=== PATIENT | female | born 1970 | race African-American/Black ===

== ENCOUNTER 2016-09-28 10:56 | Inpatient (IN) | payer OTHER ==
[2016-09-28 11:57] VITALS: BMI 18.1
--- NOTE | 2016-09-28 13:02 | HP ---
CIWA Score - CIWA Score Nausea/Vomitin-No Nausea/No Vomiting Muscle Tremors: 4-Moderate,w/Arms Extend Anxiety: 3 Agitation: 4-Moderately Restless Paroxysmal Sweats: 3 Orientation: 0-Oriented Tacttile Disturbances: 0-None Auditory Disturbances: 0-None Visual Disturbances: 0-None Headache: 2-Mild CIWA-Ar Total Score: 16 Admission ROS BHS - HPI Chief Complaint: I need to stop drinking. Allergies/Adverse Reactions: Allergies Allergy/AdvReac Type Severity Reaction Status Date / Time No Known Allergies Allergy Verified 09/28/16 12:36 History of Present Illness: pt is a 46yr old female with a history of alcohol dependence seeking detox for treatment. Exam Limitations: No Limitations - Ebola screening Have you traveled outside of the country in the last 21 days: No Have you had contact with anyone from an Ebola affected area: No Have you been sick,other than usual withdrawal symptoms: No Do you have a fever: No - Review of Systems Constitutional: Chills, Diaphoresis, Loss of Appetite, Night Sweats, Changes in sleep EENT: reports: Tearing, Nose Congestion, Dental Problems (missing teeth) Respiratory: reports: Cough, Productive cough Cardiac: reports: No Symptoms Reported GI: reports: Diarrhea, Poor Appetite, Poor Fluid Intake : reports: No Symptoms Reported Musculoskeletal: reports: Back Pain, Joint Pain Integumentary: reports: Flushing, Sweating Neuro: reports: Headache, Tingling, Tremors Endocrine: reports: Excessive Sweating, Flushing, Intolerance to Cold, Intolerance to Heat Hematology: reports: Anemia Psychiatric: reports: Judgement Intact, Mood/Affect Appropiate, Orientated x3, Agitated, Anxious Other Systems: Reviewed and Negative Patient History - Patient Medical History Hx Anemia: Yes Hx Asthma: No Hx Chronic Obstructive Pulmonary Disease (COPD): No Hx Cancer: No Hx Cardiac Disorders: Yes (heart murmur) Hx Congestive Heart Failure: No Hx Hypertension: No Hx Hypercholesterolemia: No Hx Pacemaker: No HX Cerebrovascular Accident: No Hx Seizures: No Hx Dementia: No Hx Diabetes: No Hx Gastrointestinal Disorders: No Hx Liver Disease: No Hx Genitourinary Disorders: No Hx Sexually Transmitted Disorders: No Hx Renal Disease (ESRD): No Hx Thyroid Disease: No Hx Human Immunodeficiency Virus (HIV): No (negative) Hx Hepatitis C: No (negative) Hx Depression: Yes Hx Suicide Attempt: No (denies) Hx Bipolar Disorder: No Hx Schizophrenia: No - Patient Surgical History Past Surgical History: Yes Hx Neurologic Surgery: No Hx Cataract Extraction: No Hx Cardiac Surgery: No Hx Lung Surgery: No Hx Breast Surgery: No Hx Breast Biopsy: No Hx Abdominal Surgery: Yes (hernia repair) Hx Appendectomy: No Hx Cholecystectomy: No Hx Genitourinary Surgery: No Hx Section: No Hx Orthopedic Surgery: Yes (right knee, 07/29/2015) Other Surgical History: R inguinal hernia repair Anesthesia Reaction: No - PPD History Previous Implant?: Yes Documented Results: Negative w/o proof Implanted On Prior R Admission?: Yes PPD to be Administered?: Yes - Reproductive History Patient is a Female of Child Bearing Age (11 -55 yrs old): Yes Last Menstrual Period: 10/05/14 Patient : No - Smoking Cessation Smoking history: Never smoked Have you smoked in the past 12 months: No Aproximately how many cigarettes per day: 0 Cigars Per Day: 0 Hx Chewing Tobacco Use: No Initiated information on smoking cessation: No 'Breaking Loose' booklet given: 09/28/16 - Substance & Tx. History Hx Alcohol Use: Yes Hx Substance Use: Yes Substance Use Type: Alcohol, Marijuana Hx Substance Use Treatment: Yes - Substances Abused Alcohol-beer Route: Oral Frequency: Daily Amount used: 1-6 pk. Age of first use: 18 Date of Last Use: 09/28/16 Marijuana Route: Smoking Frequency: Daily Amount used: $40 Age of first use: 16 Date of Last Use: 09/28/16 Family Disease History - Family Disease History Family Disease History: Diabetes: Mother (htn .asthma ), Other: Mother Admission Physical Exam S - Vital Signs Vital Signs: Vital Signs - 24 hr 09/28/16 11:53 Temperature 97 F L Pulse Rate 106 H Respiratory 20 Rate Blood Pressure 159/99 - Physical General Appearance: Yes: Appropriately Dressed, Thin, Tremorous, Irritable, Sweating, Anxious HEENTM: Yes: Rhinorrhea, Muffled/Hoarse Voice Respiratory: Yes: Lungs Clear, Normal Breath Sounds, No Respiratory Distress Neck: Yes: No masses,lesions,Nodules Breast: Yes: Within Normal Limits Cardiology: Yes: Regular Rhythm, Regular Rate, S1, S2 Abdominal: Yes: Normal Bowel Sounds, Non Tender, Soft Genitourinary: Yes: Within Normal Limits Back: Yes: Normal Inspection Musculoskeletal: Yes: Back pain Extremities: Yes: Normal Capillary Refill, Normal Inspection, Tremors Neurological: Yes: Fully Oriented, Alert, Normal Response Integumentary: Yes: Normal Color, Dry, Diaphoresis Lymphatic: Yes: Within Normal Limits - Diagnostic (1) Alcohol dependence with uncomplicated withdrawal Current Visit: Yes Status: Chronic (2) Cannabis dependence Current Visit: Yes Status: Chronic (3) Chronic knee pain Current Visit: Yes Status: Chronic Qualifiers: Laterality: right Qualified Code(s): M25.561 - Pain in right knee; G89.29 - Other chronic pain Cleared for Admission [facility] - Detox or Rehab [facility] Level of Care: Medically Managed Detox Regimen/Protocol: Librium [facility] Breath Alcohol Content Breath Alcohol Content: 0.250 Urine Pregancy Test - Result Urine Test Results: Negative- NO Line Present Urine Drug Screen - Results Drug Screen Negative: No Urine Drug Screen Results: THC-Marijuana, BZO-Benzodiazepines, TCA-Tricyclic Antidepress
[2016-09-28] MEDS ORDERED: ACETAMINOPHEN 325 MG TABLET (FP) PO PRN (13:12)
[2016-09-28] MEDS ORDERED: chlordiazePOXIDE HCL 25 MG CAPSULE PO PRN (13:12)
[2016-09-28] MEDS ORDERED: MAG HYDROX/AL HYDROX/SIMETH 30 ML UNIT-DOSE CUP PO PRN (13:12)
[2016-09-28] MEDS ORDERED: diphenhydrAMINE HCL 50 MG CAPSULE PO PRN (13:12)
[2016-09-28] MEDS ORDERED: LOPERAMIDE HCL 2 MG CAPSULE PO PRN (13:12)
[2016-09-28] MEDS ORDERED: MAGNESIUM HYDROX 2400MG/30ML ORAL SUSPENSION 30 ML CUP PO PRN (13:12)
[2016-09-28] MEDS ORDERED: MENTHOL/PHENOL 1 EACH UD MM PRN (13:12)
[2016-09-28] MEDS ORDERED: hydrOXYzine PAMOATE 50 MG CAPSULE (FP) PO PRN (13:12)
[2016-09-28] MEDS ORDERED: P-EPHED 60MG/TRIPROLIDI 2.5MG TABLET PO PRN (13:12)
[2016-09-28] MEDS ORDERED: guaiFENesin/D-METHORPHAN HB 10 ML UNIT-DOSE CUPS PO PRN (13:12)
[2016-09-28] MEDS ORDERED: IBUPROFEN 400 MG TABLET (FP) PO PRN (13:12)
[2016-09-28] MEDS ORDERED: MAGNESIUM CITRATE 300 ML BOTTLE PO PRN (13:12)
[2016-09-28] MEDS ORDERED: chlordiazePOXIDE HCL 25 MG CAPSULE PO ONE (14:00)
--- NOTE | 2016-09-28 16:55 | CONSULT ---
[facility] Psychiatric Consult - Data Date of interview: 09/28/16 Admission source: [facility] Identifying data: Readmission to [facility] for this 46 y/o AA female seeking detox treatment on for alcohol and marijuana dependence.Patient is ,a mother of five,homeless,unemployed and supported on food stamps. Substance Abuse History: - Smoking Cessation. Smoking history: Never smoked. Have you smoked in the past 12 months: No. Aproximately how many cigarettes per day: 0. Cigars Per Day: 0. Hx Chewing Tobacco Use: No. Initiated information on smoking cessation: No. 'Breaking Loose' booklet given: . - Substance & Tx. History. Hx Alcohol Use: Yes. Hx Substance Use: Yes. Substance Use Type: Alcohol, Marijuana. Hx Substance Use Treatment: Yes. - Substances Abused. Alcohol-beer. Route: Oral. Frequency: Daily. Amount used: 1-6 pk. Age of first use: 18. Date of Last Use: 09/28/16. Marijuana. Route: Smoking. Frequency: Daily. Amount used: $40. Age of first use: 16. Date of Last Use: 09/28/16. Confirmed by the patient in this interview. Medical History: Anemia,heart murmur and a history of right inguinal herniorraphy.Noted recent history or right knee replacement (2016). Psychiatric History: Patient denies. Physical/Sexual Abuse/Trauma History: Patient denies. Additional Comment: Urine Drug Screen Results: THC-Marijuana, BZO- Benzodiazepines, TCA-Tricyclic Antidepressant.Noted. Mental Status Exam - Mental Status Exam Alert and Oriented to: Time, Place, Person Cognitive Function: Good Patient Appearance: Well Groomed Mood: Hopeful, Euthymic Affect: Appropriate, Normal Range Patient Behavior: Appropriate, Cooperative Speech Pattern: Clear, Appropriate Voice Loudness: Normal Thought Process: Goal Oriented Thought Disorder: Not Present Hallucinations: Denies Suicidal Ideation: Denies Homicidal Ideation: Denies Insight/Judgement: Poor Sleep: Poorly, Difficulty falling asleep Appetite: Good Muscle strength/Tone: Normal Gait/Station: Normal Psychiatric Findings - Problem List ([place] 1, 2,3) (1) Alcohol dependence with uncomplicated withdrawal Current Visit: Yes Status: Acute (2) Cannabis dependence Current Visit: Yes Status: Acute (3) Chronic knee pain Current Visit: Yes Status: Chronic Qualifiers: Laterality: right Qualified Code(s): M25.561 - Pain in right knee; G89.29 - Other chronic pain (4) Insomnia Current Visit: Yes Status: Acute - Initial Treatment Plan Initial Treatment Plan: Psychoeducation.Detoxification.Zolpidem 10 mg po hs prn.Patient is made aware of the risk of parasomnias.She agrees with this careplan.Observation.
[2016-09-28] MEDS: chlordiazePOXIDE HCL 25 MG CAPSULE PO SCH ×2 (17:34→22:33)
[2016-09-28 21:48] LABS: URINE APPEARANCE SLCLOUDY; URINE BILIRUBIN NEGATIVE (NEGATIVE); URINE BLOOD NEGATIVE (NEGATIVE); URINE COLOR YELLOW; URINE GLUCOSE (UA) NEGATIVE (NEGATIVE); URINE KETONE NEGATIVE (NEGATIVE); URINE NITRITE NEGATIVE (NEGATIVE); URINE PROTEIN NEGATIVE (NEGATIVE); URINE UROBILINOGEN NEGATIVE E.U./dl (0.2-1.0)
[2016-09-28 21:49] LABS: URINE LEUK ESTERASE TRACE (NEGATIVE)
[2016-09-28 21:53] LABS: URINE BACTERIA MANY /hpf (NONE SEEN); URINE MUCUS RARE; URINE RBC 1 /hpf (0-3); URINE WBC 24 /hpf (3-5)
[2016-09-28] MEDS: ZOLPIDEM TARTRATE 10 MG TABLET (PARK CARE ONLY) PO PRN (22:33)
[2016-09-28] MEDS: THIAMINE HCL 100 MG TABLET (FP) PO SCH (22:33)
--- NOTE | 2016-09-28 22:39 | PN ---
BHS Progress Note Note: RECEIVED NURSE CALL REQUESTS ENSURE BMI 18.2 ENSURE 120 ML BID CONTINUE DETOX
[2016-09-29] MEDS: chlordiazePOXIDE HCL 25 MG CAPSULE PO SCH ×4 (05:48→22:39)
[2016-09-29] MEDS: PRENATAL VITAMINS W/ FOLIC ACID TABLET (FP) PO SCH (10:39)
[2016-09-29 11:12] LABS: MCH 34.4 pg (25.7-33.7); MCHC 32.7 g/dl (32.0-36.0); MEAN CELL VOLUME 105.2 fl (80-96); MEAN PLT VOLUME 9.6 fl (7.5-11.1); PLATELET COUNT 137 K/MM3 (134-434); RDW 14.4 % (11.6-15.6); WHITE BLOOD COUNT 5.2 K/mm3 (4.0-10.0)
[2016-09-29 11:24] LABS: ANION GAP 12 (8-16); BILIRUBIN,TOTAL 0.2 mg/dL (0.2-1.0); CALCIUM 8.7 mg/dL (8.5-10.1); CO2 29 mmol/L (21-32); CREATININE 0.6 mg/dL (0.55-1.02); GLUCOSE,RANDOM 101 mg/dL (74-106); SGOT/AST 111 U/L (15-37); SGPT/ALT 49 U/L (12-78); TOT PROT 8.8 g/dl (6.4-8.2)
[2016-09-29 11:25] LABS: ALK PHOS 115 U/L (45-117)
--- NOTE | 2016-09-29 13:01 | PN ---
S CIWA - CIWA Score Nausea/Vomitin Muscle Tremors: 3 Anxiety: 3 Agitation: 2 Paroxysmal Sweats: 1-Minimal Palms Moist Orientation: 0-Oriented Tacttile Disturbances: 1-Very Mild Itch/Numbness Auditory Disturbances: 1-Very Mild Visual Disturbances: 1-Very Mild Sensitivity Headache: 2-Mild CIWA-Ar Total Score: 17 BHS Progress Note (SOAP) Subjective: ALERT,IRRITABLE,ANXIOUS,INTERRUPTED SLEEP,TREMOR.PAIN IN THE BODY Objective: 09/29/16 12:59 Vital Signs Temperature 99.1 F 09/29/16 10:26 Pulse Rate 83 09/29/16 10:26 Respiratory Rate 16 09/29/16 10:26 Blood Pressure 149/98 09/29/16 10:26 O2 Sat by Pulse Oximetry (%) EKG NSR PPROLONG QT 09/29/16 13:00 Laboratory Last Values WBC 5.2 K/mm3 (4.0-10.0) D 09/29/16 06:15 RBC 3.42 M/mm3 (3.60-5.2) L 09/29/16 06:15 Hgb 11.8 GM/dL (10.7-15.3) 09/29/16 06:15 Hct 36.0 % (32.4-45.2) 09/29/16 06:15 MCV 105.2 fl (80-96) H 09/29/16 06:15 MCHC 32.7 g/dl (32.0-36.0) 09/29/16 06:15 RDW 14.4 % (11.6-15.6) 09/29/16 06:15 Plt Count 137 K/MM3 (134-434) D 09/29/16 06:15 MPV 9.6 fl (7.5-11.1) D 09/29/16 06:15 Sodium 147 mmol/L (136-145) H 09/29/16 06:15 Potassium 4.1 mmol/L (3.5-5.1) 09/29/16 06:15 Chloride 106 mmol/L (98-107) 09/29/16 06:15 Carbon Dioxide 29 mmol/L (21-32) 09/29/16 06:15 Anion Gap 12 (8-16) 09/29/16 06:15 BUN 8 mg/dL (7-18) D 09/29/16 06:15 Creatinine 0.6 mg/dL (0.55-1.02) 09/29/16 06:15 Creat Clearance w eGFR > 60 (>60) 09/29/16 06:15 Random Glucose 101 mg/dL (74-106) D 09/29/16 06:15 Calcium 8.7 mg/dL (8.5-10.1) 09/29/16 06:15 Total Bilirubin 0.2 mg/dL (0.2-1.0) 09/29/16 06:15 AST 111 U/L (15-37) H D 09/29/16 06:15 ALT 49 U/L (12-78) 09/29/16 06:15 Alkaline Phosphatase 115 U/L (45-117) 09/29/16 06:15 Total Protein 8.8 g/dl (6.4-8.2) H 09/29/16 06:15 Albumin 4.0 g/dl (3.4-5.0) 09/29/16 06:15 Urine Color Yellow 09/28/16 21:00 Urine Appearance Slcloudy 09/28/16 21:00 Urine pH 6.0 (5.0-8.0) 09/28/16 21:00 Ur Specific [place] 1.013 (1.001-1.035) 09/28/16 21:00 Urine Protein Negative (NEGATIVE) 09/28/16 21:00 Urine Glucose (UA) Negative (NEGATIVE) 09/28/16 21:00 Urine Ketones Negative (NEGATIVE) 09/28/16 21:00 Urine Blood Negative (NEGATIVE) 09/28/16 21:00 Urine Nitrite Negative (NEGATIVE) 09/28/16 21:00 Urine Bilirubin Negative (NEGATIVE) 09/28/16 21:00 Urine Urobilinogen Negative E.U./dl (0.2-1.0) 09/28/16 21:00 Ur Leukocyte Esterase Trace (NEGATIVE) H D 09/28/16 21:00 Urine RBC 1 /hpf (0-3) 09/28/16 21:00 Urine WBC 24 /hpf (3-5) 09/28/16 21:00 Ur Epithelial Cells Many /hpf (FEW) 09/28/16 21:00 Urine Bacteria Many /hpf (NONE SEEN) 09/28/16 21:00 Urine Mucus Rare 09/28/16 21:00 Hepatitis C Antibody 0.2 s/co ratio (0.0-0.9) 09/28/16 14:00 Assessment: 09/29/16 13:00 WITHDRAWAL SYMPTOM 09/29/16 13:01 Plan: CONTINUE DETOX.D/CTYLENOL
[2016-09-29 14:10] LABS: HIV 1 & 2 AB NEGATIVE; HIV 1 AGp24 NEGATIVE
[2016-09-29] MEDS: THIAMINE HCL 100 MG TABLET (FP) PO SCH (22:39)
[2016-09-29] MEDS: ZOLPIDEM TARTRATE 10 MG TABLET (PARK CARE ONLY) PO PRN (22:39)
[2016-09-30] MEDS: chlordiazePOXIDE HCL 25 MG CAPSULE PO SCH ×2 (05:40→10:15)
[2016-09-30] MEDS: PRENATAL VITAMINS W/ FOLIC ACID TABLET (FP) PO SCH (10:15)
--- NOTE | 2016-09-30 13:17 | PN ---
S CIWA - CIWA Score Nausea/Vomitin Muscle Tremors: 3 Anxiety: 3 Agitation: 2 Paroxysmal Sweats: 1-Minimal Palms Moist Orientation: 0-Oriented Tacttile Disturbances: 1-Very Mild Itch/Numbness Auditory Disturbances: 1-Very Mild Visual Disturbances: 1-Very Mild Sensitivity Headache: 2-Mild CIWA-Ar Total Score: 17 BHS Progress Note (SOAP) Subjective: ALERT,IRRITABLE,ANXIOUS,INTERRUPTED SLEEP,TREMOR Objective: 09/30/16 13:16 Vital Signs Temperature 98.1 F 09/30/16 09:56 Pulse Rate 96 H 09/30/16 09:56 Respiratory Rate 18 09/30/16 09:56 Blood Pressure 129/101 09/30/16 09:56 O2 Sat by Pulse Oximetry (%) Assessment: 09/30/16 13:16 WITHDRAWAL SYMPTOM Plan: CONTINUE DETOX
[2016-09-30] MEDS: chlordiazePOXIDE 5 MG CAPSULE PO SCH ×2 (17:56→22:22)
[2016-09-30] MEDS: ZOLPIDEM TARTRATE 10 MG TABLET (PARK CARE ONLY) PO PRN (22:22)
[2016-09-30] MEDS: THIAMINE HCL 100 MG TABLET (FP) PO SCH (22:22)
[2016-10-01] MEDS: chlordiazePOXIDE 5 MG CAPSULE PO SCH ×2 (05:49→10:25)
--- NOTE | 2016-10-01 09:56 | PN ---
BHS Progress Note (SOAP) Subjective: sweats, , needs vitamins e, headache Objective: 10/01/16 09:49 Vital Signs Temperature 97.9 F 10/01/16 06:00 Pulse Rate 77 10/01/16 06:00 Respiratory Rate 16 10/01/16 06:00 Blood Pressure 121/83 10/01/16 06:00 O2 Sat by Pulse Oximetry (%) Vital Signs Temperature 97.9 F 10/01/16 06:00 Pulse Rate 77 10/01/16 06:00 Respiratory Rate 16 10/01/16 06:00 Blood Pressure 121/83 10/01/16 06:00 O2 Sat by Pulse Oximetry (%) Laboratory Tests 09/28/16 09/28/16 09/29/16 14:00 21:00 06:15 WBC 5.2 D RBC 3.42 L Hgb 11.8 Hct 36.0 MCV 105.2 H MCHC 32.7 RDW 14.4 Plt Count 137 D MPV 9.6 D Sodium Potassium Chloride Carbon Dioxide Anion Gap BUN Creatinine Creat Clearance w eGFR Random Glucose Calcium Total Bilirubin AST ALT Alkaline Phosphatase Total Protein Albumin Urine Color Yellow Urine Appearance Slcloudy Urine pH 6.0 Ur Specific [place] 1.013 Urine Protein Negative Urine Glucose (UA) Negative Urine Ketones Negative Urine Blood Negative Urine Nitrite Negative Urine Bilirubin Negative Urine Urobilinogen Negative Ur Leukocyte Esterase Trace H D Urine RBC 1 Urine WBC 24 Ur Epithelial Cells Many Urine Bacteria Many Urine Mucus Rare RPR Titer Hepatitis C Antibody 0.2 HIV 1&2 Antibody Screen HIV P24 Antigen 09/29/16 09/29/16 09/29/16 06:15 06:15 09:30 WBC RBC Hgb Hct MCV MCHC RDW Plt Count MPV Sodium 147 H Potassium 4.1 Chloride 106 Carbon Dioxide 29 Anion Gap 12 BUN 8 D Creatinine 0.6 Creat Clearance w eGFR > 60 Random Glucose 101 D Calcium 8.7 Total Bilirubin 0.2 AST 111 H D ALT 49 Alkaline Phosphatase 115 Total Protein 8.8 H Albumin 4.0 Urine Color Urine Appearance Urine pH Ur Specific [place] Urine Protein Urine Glucose (UA) Urine Ketones Urine Blood Urine Nitrite Urine Bilirubin Urine Urobilinogen Ur Leukocyte Esterase Urine RBC Urine WBC Ur Epithelial Cells Urine Bacteria Urine Mucus RPR Titer Nonreactive Hepatitis C Antibody HIV 1&2 Antibody Screen Negative HIV P24 Antigen Negative pt aox3 in nad ambulating Assessment: 10/01/16 09:51 withdrawal sx,s headache Plan: cont. detox increase fluids vit e /d motrin 400mg po tid/prn d/c in am
[2016-10-01] MEDS: PRENATAL VITAMINS W/ FOLIC ACID TABLET (FP) PO SCH (10:25)
[2016-10-01] MEDS: VITAMIN E 400 INTERNATIONAL-UNITS CAPSULE (FP) NR SCH (10:52)
--- NOTE | 2016-10-01 11:32 | EKG ---
Test Reason : Blood Pressure : / mmHG Vent. Rate : 089 BPM Atrial Rate : 089 BPM P-R Int : 184 ms QRS Dur : 098 ms QT Int : 396 ms P-R-T Axes : 078 092 076 degrees QTc Int : 481 ms NORMAL SINUS RHYTHM RIGHTWARD AXIS PROLONGED QT ABNORMAL ECG WHEN COMPARED WITH ECG OF 17-APR-2010 09:12, NO SIGNIFICANT CHANGE WAS FOUND Confirmed by PANTERA ROLDAN MD ([id number]) on 10/01/2016 11:32:23 AM Referred By: Confirmed By:PANTERA ROLDAN MD
[2016-10-01] MEDS: chlordiazePOXIDE HCL 10 MG CAPSULE PO SCH ×2 (17:30→22:09)
[2016-10-01] MEDS: THIAMINE HCL 100 MG TABLET (FP) PO SCH (22:09)
[2016-10-01] MEDS: ZOLPIDEM TARTRATE 10 MG TABLET (PARK CARE ONLY) PO PRN (22:09)
[2016-10-02] MEDS: chlordiazePOXIDE HCL 10 MG CAPSULE PO SCH (05:49)
--- NOTE | 2016-10-02 09:06 | DS ---
[facility] Detox Discharge Summary Admission Date: 09/28/16 Discharge Date: 10/02/16 - History Present History: Alcohol Dependence, Cannabis Dependence - Physical Exam Results Vital Signs: Vital Signs Temperature 97.7 F 10/02/16 06:18 Pulse Rate 72 10/02/16 06:18 Respiratory Rate 18 10/02/16 06:18 Blood Pressure 106/72 10/02/16 06:18 O2 Sat by Pulse Oximetry (%) - Treatment Hospital Course: Detox Protocol Followed, Detoxed Safely, Responded well, Discharged Condition Good, Rehab Referral Accepted - Medication Discharge Medications: Ambulatory Orders NK [No Known Home Medication] 01/19/15 - Diagnosis (1) Alcohol dependence with uncomplicated withdrawal Current Visit: Yes Status: Chronic (2) Cannabis dependence Current Visit: Yes Status: Chronic (3) Chronic knee pain Current Visit: Yes Status: Chronic Qualifiers: Laterality: right Qualified Code(s): M25.561 - Pain in right knee; G89.29 - Other chronic pain - AMA Did Patient Leave Against Medical Advice: No
[2016-10-02] MEDS: PRENATAL VITAMINS W/ FOLIC ACID TABLET (FP) PO SCH (09:27)
[2016-10-02] MEDS: VITAMIN E 400 INTERNATIONAL-UNITS CAPSULE (FP) NR SCH (09:27)
[2016-10-02 10:12] VITALS: BP 135/81; PULSE 93; TEMP 97.9
== END 2016-10-02 09:50 | disposition home or self-care (01) | DRG 775 ==
LOC: YASAS 10:56 → Y6N 13:39
PROVIDERS: ADMIT Internal Medicine; ATTEND Internal Medicine
PROC: HZ2ZZZZ Detoxification Services for Substance Abuse Treatment (ICD-10-PCS; principal; 2016-10-02)
DX: F10.230 Alcohol dependence with withdrawal, uncomplicated (principal); F12.20 Cannabis dependence, uncomplicated; G47.00 Insomnia, unspecified; M25.561 Pain in right knee; G89.29 Other chronic pain; Z59.0 Homelessness
CPT/HCPCS: 36415; 80053; 81003; 81015; 85027; 86593; 87389; 93005; 93010

== ENCOUNTER 2016-11-11 16:11 | Inpatient (IN) | payer OTHER ==
[2016-11-11 16:32] VITALS: BMI 17.3
--- NOTE | 2016-11-11 19:59 | HP ---
CIWA Score - CIWA Score Nausea/Vomitin Muscle Tremors: 3 Anxiety: 3 Agitation: 3 Paroxysmal Sweats: 3 Orientation: 3-Disoriented Date>2 days Tacttile Disturbances: 1-Very Mild Itch/Numbness Auditory Disturbances: 1-Very Mild Visual Disturbances: 2-Mild Sensitivity Headache: 2-Mild CIWA-Ar Total Score: 24 Admission ROS S - HPI Chief Complaint: WITHDRAWAL SYMPTOMS Allergies/Adverse Reactions: Allergies Allergy/AdvReac Type Severity Reaction Status Date / Time No Known Allergies Allergy Verified 09/28/16 12:36 History of Present Illness: 46 Y.O. WOMAN WITH AN EXTENSIVE HISTORY OF ALCOHOL AND DRUG DEPENDENCE IS SEEKING DETOX. SHE WAS HERE LAST MONTH FOR DETOX AND SHE REPORTS COMPLETED REHAB AT DIFFERENT FACILITIES PREVIOUSLY. HER LONGEST PERIOD OF SOBRIETY IS 5 YEARS. Exam Limitations: Intoxication - Ebola screening Have you traveled outside of the country in the last 21 days: No Have you had contact with anyone from an Ebola affected area: No Have you been sick,other than usual withdrawal symptoms: No Do you have a fever: No - Review of Systems Constitutional: Chills, Diaphoresis, Loss of Appetite, Malaise, Night Sweats, Changes in sleep EENT: reports: Blurred Vision, Double Vision, Tearing, Nose Congestion Respiratory: reports: Shortness of Breath Cardiac: reports: Palpitations GI: reports: Diarrhea, Poor Appetite, Abdominal cramping : reports: No Symptoms Reported Musculoskeletal: reports: Back Pain, Neck Pain, Other (R KNEE AND R ANKLE) Neuro: reports: Headache, Tremors, Unsteady Gait Endocrine: reports: No Symptoms Reported Hematology: reports: Anemia (LISA) Psychiatric: reports: Anxious, Depressed, Disorientated Other Systems: Reviewed and Negative Patient History - Patient Medical History Hx Anemia: Yes Hx Asthma: No Hx Chronic Obstructive Pulmonary Disease (COPD): No Hx Cancer: No Hx Cardiac Disorders: Yes (heart murmur) Hx Congestive Heart Failure: No Hx Hypertension: Yes Hx Hypercholesterolemia: No Hx Pacemaker: No HX Cerebrovascular Accident: Yes (2002) Hx Seizures: No Hx Dementia: No Hx Diabetes: No Hx Gastrointestinal Disorders: No Hx Liver Disease: Yes (FATTY LIVER) Hx Genitourinary Disorders: No Hx Sexually Transmitted Disorders: No Hx Renal Disease (ESRD): No Hx Thyroid Disease: No Hx Human Immunodeficiency Virus (HIV): No (negative) Hx Hepatitis C: No (negative) Hx Depression: Yes Hx Suicide Attempt: No (denies) Hx Bipolar Disorder: No Hx Schizophrenia: No - Patient Surgical History Past Surgical History: Yes Hx Neurologic Surgery: No Hx Cataract Extraction: No Hx Cardiac Surgery: No Hx Lung Surgery: No Hx Breast Surgery: No Hx Breast Biopsy: No Hx Abdominal Surgery: Yes (hernia repair) Hx Appendectomy: No Hx Cholecystectomy: No Hx Genitourinary Surgery: No Hx Section: No Hx Orthopedic Surgery: Yes (right knee, 07/29/2015) Other Surgical History: R inguinal hernia repair Anesthesia Reaction: No - PPD History Previous Implant?: Yes Documented Results: Negative w/proof Implanted On Prior [facility] Admission?: Yes Date: 09/30/16 Results: 0 mm PPD to be Administered?: No - Reproductive History Patient is a Female of Child Bearing Age (11 -55 yrs old): Yes Last Menstrual Period: 06/07/16 Patient : No - Smoking Cessation Smoking history: Never smoked Have you smoked in the past 12 months: No Aproximately how many cigarettes per day: 0 Cigars Per Day: 0 Hx Chewing Tobacco Use: No - Substance & Tx. History Hx Alcohol Use: Yes Hx Substance Use: Yes Substance Use Type: Alcohol, Marijuana Hx Substance Use Treatment: Yes (DETOX AND REHAB ) - Substances Abused Alcohol Route: Oral Frequency: Daily Amount used: 4-5 24OZ CANS OF BEER Age of first use: 18 Date of Last Use: 11/11/16 Marijuana/Hashish Route: Smoking Frequency: Daily Amount used: $40 Age of first use: 16 Date of Last Use: 11/11/16 Family Disease History - Family Disease History Family Disease History: Diabetes: Mother (htn .asthma ), Other: Mother Admission Physical Exam S - Vital Signs Vital Signs: Vital Signs - 24 hr 11/11/16 16:28 Temperature 96.4 F L Pulse Rate 97 H Respiratory 20 Rate Blood Pressure 155/101 - Physical General Appearance: Yes: Disheveled, Alcohol on Breath, Intoxicated, Thin, Tremorous, Anxious HEENTM: Yes: Hearing grossly Normal, Normocephalic, Normal Voice Respiratory: Yes: Chest Non-Tender, Lungs Clear, Normal Breath Sounds, No Respiratory Distress, No Accessory Muscle Use Neck: Yes: No masses,lesions,Nodules, Trachea in good position Breast: Yes: Breast Exam Deferred Cardiology: Yes: Regular Rhythm, Regular Rate, S1, S2 Abdominal: Yes: Non Tender, Flat, Soft Genitourinary: Yes: Other (NO COMPLAINTS REPORTED) Back: Yes: Normal Inspection Musculoskeletal: Yes: Back pain Extremities: Yes: Normal Inspection, Normal Range of Motion, Non-Tender Neurological: Yes: Disoriented Integumentary: Yes: Normal Color, Dry, Warm Lymphatic: Yes: Within Normal Limits - Diagnostic (1) Alcohol dependence with uncomplicated withdrawal Current Visit: Yes Status: Chronic (2) Cannabis dependence Current Visit: Yes Status: Chronic (3) Chronic knee pain Current Visit: Yes Status: Chronic Qualifiers: Laterality: right Qualified Code(s): M25.561 - Pain in right knee; G89.29 - Other chronic pain (4) Hypertension Current Visit: Yes Status: Chronic Cleared for Admission [facility] - Detox or Rehab [facility] Level of Care: Medically Managed Detox Regimen/Protocol: Librium [facility] Breath Alcohol Content Breath Alcohol Content: 0.382 Urine Pregancy Test - Result Urine Test Results: Negative- NO Line Present Urine Drug Screen - Results Drug Screen Negative: No Urine Drug Screen Results: THC-Marijuana, BZO-Benzodiazepines
[2016-11-11] MEDS ORDERED: MAGNESIUM HYDROX 2400MG/30ML ORAL SUSPENSION 30 ML CUP PO PRN (20:21)
[2016-11-11] MEDS ORDERED: MAGNESIUM CITRATE 300 ML BOTTLE PO PRN (20:21)
[2016-11-11] MEDS ORDERED: MENTHOL/PHENOL 1 EACH UD MM PRN (20:21)
[2016-11-11] MEDS ORDERED: MAG HYDROX/AL HYDROX/SIMETH 30 ML UNIT-DOSE CUP PO PRN (20:21)
[2016-11-11] MEDS ORDERED: diphenhydrAMINE HCL 50 MG CAPSULE PO PRN (20:21)
[2016-11-11] MEDS ORDERED: P-EPHED 60MG/TRIPROLIDI 2.5MG TABLET PO PRN (20:21)
[2016-11-11] MEDS ORDERED: guaiFENesin/D-METHORPHAN HB 10 ML UNIT-DOSE CUPS PO PRN (20:21)
[2016-11-11] MEDS ORDERED: chlordiazePOXIDE HCL 25 MG CAPSULE PO PRN (20:21)
[2016-11-11] MEDS ORDERED: LOPERAMIDE HCL 2 MG CAPSULE PO PRN (20:21)
[2016-11-11] MEDS ORDERED: chlordiazePOXIDE HCL 25 MG CAPSULE PO ONE (20:21)
[2016-11-11] MEDS ORDERED: ACETAMINOPHEN 325 MG TABLET (FP) PO PRN (20:21)
[2016-11-11] MEDS ORDERED: hydrOXYzine PAMOATE 50 MG CAPSULE (FP) PO PRN (20:21)
[2016-11-11] MEDS ORDERED: IBUPROFEN 400 MG TABLET (FP) PO PRN (20:21)
[2016-11-11] MEDS: cloNIDine HCL 0.1 MG TABLET PO PRN (22:31)
[2016-11-11] MEDS: THIAMINE HCL 100 MG TABLET (FP) PO SCH (22:31)
[2016-11-11] MEDS: chlordiazePOXIDE HCL 25 MG CAPSULE PO SCH (22:31)
[2016-11-12] MEDS: chlordiazePOXIDE HCL 25 MG CAPSULE PO SCH ×4 (05:32→22:29)
--- NOTE | 2016-11-12 08:42 | EKG ---
Test Reason : Blood Pressure : / mmHG Vent. Rate : 077 BPM Atrial Rate : 077 BPM P-R Int : 182 ms QRS Dur : 098 ms QT Int : 424 ms P-R-T Axes : 021 087 074 degrees QTc Int : 479 ms NORMAL SINUS RHYTHM ANTERIOR INFARCT , AGE UNDETERMINED ABNORMAL ECG WHEN COMPARED WITH ECG OF 28-SEP-2016 15:07, NO SIGNIFICANT CHANGE WAS FOUND Confirmed by PANTERA ROLDAN MD ([id number]) on 11/12/2016 8:42:11 AM Referred By: Confirmed By:PANTERA ROLDAN MD
--- NOTE | 2016-11-12 10:01 | PN ---
S CIWA - CIWA Score Nausea/Vomitin Muscle Tremors: 3 Anxiety: 3 Agitation: 2 Paroxysmal Sweats: 1-Minimal Palms Moist Orientation: 0-Oriented Tacttile Disturbances: 1-Very Mild Itch/Numbness Auditory Disturbances: 1-Very Mild Visual Disturbances: 1-Very Mild Sensitivity Headache: 2-Mild CIWA-Ar Total Score: 17 BHS Progress Note (SOAP) Subjective: ALERT,IRRITABLE,ANXIOUS,INTERRUPTED SLEEP,TREMOR Objective: 11/12/16 10:00 Vital Signs Temperature 99.0 F 11/12/16 06:00 Pulse Rate 73 11/12/16 06:00 Respiratory Rate 18 11/12/16 06:00 Blood Pressure 117/86 11/12/16 06:00 O2 Sat by Pulse Oximetry (%) 11/12/16 10:03 EKG NSR NO CHEST PAIN,NO SOB,NO DIZZINESS LABS PENDING Assessment: 11/12/16 10:04 WITHDRAWAL SYMPTOM Plan: CONTINUE DETOX
[2016-11-12 10:12] LABS: URINE APPEARANCE CLOUDY; URINE BILIRUBIN NEGATIVE (NEGATIVE); URINE COLOR YELLOW; URINE GLUCOSE (UA) NEGATIVE (NEGATIVE); URINE KETONE NEGATIVE (NEGATIVE); URINE LEUK ESTERASE NEGATIVE (NEGATIVE); URINE NITRITE POSITIVE (NEGATIVE); URINE UROBILINOGEN NEGATIVE E.U./dl (0.2-1.0)
[2016-11-12 10:17] LABS: MCH 34.2 pg (25.7-33.7); MCHC 32.7 g/dl (32.0-36.0); MEAN CELL VOLUME 104.7 fl (80-96); MEAN PLT VOLUME 8.6 fl (7.5-11.1); PLATELET COUNT 184 K/MM3 (134-434); RDW 14.2 % (11.6-15.6); WHITE BLOOD COUNT 3.8 K/mm3 (4.0-10.0)
[2016-11-12 10:21] LABS: URINE BLOOD 1+ (NEGATIVE); URINE PROTEIN 1+ (NEGATIVE)
[2016-11-12] MEDS: SERTRALINE HCL 50 MG TABLET (FP) PO SCH (10:27)
[2016-11-12] MEDS: PRENATAL VITAMINS W/ FOLIC ACID TABLET (FP) PO SCH (10:28)
[2016-11-12 10:33] LABS: ALK PHOS 136 U/L (45-117); ANION GAP 10 (8-16); BILIRUBIN,TOTAL 0.7 mg/dL (0.2-1.0); CALCIUM 8.8 mg/dL (8.5-10.1); CO2 28 mmol/L (21-32); CREATININE 0.7 mg/dL (0.55-1.02); GLUCOSE,RANDOM 70 mg/dL (74-106); SGOT/AST 238 U/L (15-37); SGPT/ALT 124 U/L (12-78); TOT PROT 9.4 g/dl (6.4-8.2)
[2016-11-12 10:46] LABS: URINE HYALINE CAST 5 /lpf; URINE MUCUS MODERATE; URINE RBC 2 /hpf (0-3); URINE WBC 9 /hpf (3-5)
[2016-11-12] MEDS: cloNIDine HCL 0.1 MG TABLET PO PRN ×2 (12:53→22:29)
--- NOTE | 2016-11-12 13:10 | CONSULT ---
[facility] Psychiatric Consult - Data Date of interview: 11/12/16 Admission source: [facility] Identifying data: This is 46 years old female with no psychiatric hospitlization history intoxiocated with: aLCOHOL, cANNABIS, Cocaine Substance Abuse History: Observation. Detox Unit Care Medical History: Both Knees Arthritis, HTN Psychiatric History: Patient reportys history of depressionand anxiety, reports taking prior to admission: Zoloft 100mg poqd. Ambien 10mg po qhs Physical/Sexual Abuse/Trauma History: Denies Additional Comment: Zoloft 100mg poqd. Ambien 10mg po qhs Mental Status Exam - Mental Status Exam Alert and Oriented to: Person Cognitive Function: Fair Patient Appearance: Unkempt Mood: Anxious Affect: Normal Range Patient Behavior: Cooperative Speech Pattern: Appropriate Voice Loudness: Mildly Soft/Quiet Thought Process: Goal Oriented Thought Disorder: Being Controlled Hallucinations: Denies Suicidal Ideation: Denies Homicidal Ideation: Denies Insight/Judgement: Fair Sleep: Difficulty falling asleep Appetite: Weight gain Muscle strength/Tone: Mild Hypotonicity Gait/Station: Shuffling Additional Comments: Zoloft 100mg poqd. Ambien 10mg po qhs Psychiatric Findings - Problem List ([place] 1, 2,3) (1) Cannabis dependence Current Visit: Yes Status: Chronic (2) Drug-induced mood disorder Current Visit: Yes Status: Acute - Initial Treatment Plan Initial Treatment Plan: Zoloft 100mg poqd. Ambien 10mg po qhs
[2016-11-12] MEDS: THIAMINE HCL 100 MG TABLET (FP) PO SCH (22:29)
[2016-11-13] MEDS: chlordiazePOXIDE HCL 25 MG CAPSULE PO SCH ×3 (05:39→17:44)
--- NOTE | 2016-11-13 09:48 | PN ---
[facility] CIWA - CIWA Score Nausea/Vomitin Muscle Tremors: 3 Anxiety: 3 Agitation: 2 Paroxysmal Sweats: 1-Minimal Palms Moist Orientation: 0-Oriented Tacttile Disturbances: 1-Very Mild Itch/Numbness Auditory Disturbances: 1-Very Mild Visual Disturbances: 1-Very Mild Sensitivity Headache: 2-Mild CIWA-Ar Total Score: 17 BHS Progress Note (SOAP) Subjective: ALERT,IRRITABLE,ANXIOUS,INTERRUPTED SLEEP,TREMOR, Objective: 11/13/16 09:43 Vital Signs Temperature 97.7 F 11/13/16 06:07 Pulse Rate 61 11/13/16 06:07 Respiratory Rate 16 11/13/16 06:07 Blood Pressure 129/85 11/13/16 06:07 O2 Sat by Pulse Oximetry (%) Laboratory Last Values WBC 3.8 K/mm3 (4.0-10.0) L 11/12/16 07:00 RBC 3.51 M/mm3 (3.60-5.2) L 11/12/16 07:00 Hgb 12.0 GM/dL (10.7-15.3) 11/12/16 07:00 Hct 36.7 % (32.4-45.2) 11/12/16 07:00 MCV 104.7 fl (80-96) H 11/12/16 07:00 MCHC 32.7 g/dl (32.0-36.0) 11/12/16 07:00 RDW 14.2 % (11.6-15.6) 11/12/16 07:00 Plt Count 184 K/MM3 (134-434) D 11/12/16 07:00 MPV 8.6 fl (7.5-11.1) D 11/12/16 07:00 Sodium 142 mmol/L (136-145) 11/12/16 07:00 Potassium 4.3 mmol/L (3.5-5.1) 11/12/16 07:00 Chloride 104 mmol/L (98-107) 11/12/16 07:00 Carbon Dioxide 28 mmol/L (21-32) 11/12/16 07:00 Anion Gap 10 (8-16) 11/12/16 07:00 BUN 7 mg/dL (7-18) 11/12/16 07:00 Creatinine 0.7 mg/dL (0.55-1.02) 11/12/16 07:00 Creat Clearance w eGFR > 60 (>60) 11/12/16 07:00 Random Glucose 70 mg/dL (74-106) L D 11/12/16 07:00 Calcium 8.8 mg/dL (8.5-10.1) 11/12/16 07:00 Total Bilirubin 0.7 mg/dL (0.2-1.0) D 11/12/16 07:00 AST 238 U/L (15-37) H D 11/12/16 07:00 ALT 124 U/L (12-78) H D 11/12/16 07:00 Alkaline Phosphatase 136 U/L (45-117) H 11/12/16 07:00 Total Protein 9.4 g/dl (6.4-8.2) H 11/12/16 07:00 Albumin 4.0 g/dl (3.4-5.0) 11/12/16 07:00 Urine Color Yellow 11/12/16 07:00 Urine Appearance Cloudy 11/12/16 07:00 Urine pH 6.0 (5.0-8.0) 11/12/16 07:00 Ur Specific [place] 1.014 (1.001-1.035) 11/12/16 07:00 Urine Protein 1+ (NEGATIVE) H 11/12/16 07:00 Urine Glucose (UA) Negative (NEGATIVE) 11/12/16 07:00 Urine Ketones Negative (NEGATIVE) 11/12/16 07:00 Urine Blood 1+ (NEGATIVE) H 11/12/16 07:00 Urine Nitrite Positive (NEGATIVE) 11/12/16 07:00 Urine Bilirubin Negative (NEGATIVE) 11/12/16 07:00 Urine Urobilinogen Negative E.U./dl (0.2-1.0) 11/12/16 07:00 Ur Leukocyte Esterase Negative (NEGATIVE) 11/12/16 07:00 Urine RBC 2 /hpf (0-3) 11/12/16 07:00 Urine WBC 9 /hpf (3-5) 11/12/16 07:00 Ur Epithelial Cells Rare /hpf (FEW) 11/12/16 07:00 Hyaline Casts 5 /lpf 11/12/16 07:00 Urine Mucus Moderate 11/12/16 07:00 RPR Titer Nonreactive (NONREACTIVE) 11/12/16 07:00 Assessment: 11/13/16 09:45 WITHDRAWAL SYMPTOM Plan: CONTINUE DETOX,D/C TYLENOL,LEUKOPENIA,CBC CMP ,INR IN AM FOR TRANSAMINASEMIA
[2016-11-13] MEDS: SERTRALINE HCL 50 MG TABLET (FP) PO SCH (10:12)
[2016-11-13] MEDS: cloNIDine HCL 0.1 MG TABLET PO PRN (10:12)
[2016-11-13] MEDS: PRENATAL VITAMINS W/ FOLIC ACID TABLET (FP) PO SCH (10:12)
[2016-11-13] MEDS: chlordiazePOXIDE 5 MG CAPSULE PO SCH (22:13)
[2016-11-13] MEDS: ZOLPIDEM TARTRATE 10 MG TABLET (PARK CARE ONLY) PO PRN (22:14)
[2016-11-13] MEDS: THIAMINE HCL 100 MG TABLET (FP) PO SCH (22:14)
[2016-11-14] MEDS: chlordiazePOXIDE 5 MG CAPSULE PO SCH ×3 (05:16→17:44)
--- NOTE | 2016-11-14 09:32 | PN ---
S Progress Note (SOAP) Subjective: ALERT,IRRITABLE,ANXIOUS,INTERRUPTED SLEEP Objective: 11/14/16 09:31 Vital Signs Temperature 96.7 F L 11/14/16 05:47 Pulse Rate 62 11/14/16 05:47 Respiratory Rate 16 11/14/16 05:47 Blood Pressure 131/86 11/14/16 05:47 O2 Sat by Pulse Oximetry (%) Assessment: 11/14/16 09:33 WITHDRAWAL SYMPTOM Plan: CONTINUE DETOX,REPEAT CMP,INR PENDING,DISCHARGE IN AM
[2016-11-14 10:53] LABS: ALBUMIN 3.6 g/dl (3.4-5.0); ALK PHOS 124 U/L (45-117); ANION GAP 8 (8-16); BILIRUBIN,TOTAL 0.8 mg/dL (0.2-1.0); CALCIUM 9.4 mg/dL (8.5-10.1); CO2 31 mmol/L (21-32); CREATININE 0.7 mg/dL (0.55-1.02); GLUCOSE,RANDOM 78 mg/dL (74-106); SGOT/AST 145 U/L (15-37); SGPT/ALT 100 U/L (12-78); TOT PROT 8.5 g/dl (6.4-8.2)
[2016-11-14] MEDS: SERTRALINE HCL 50 MG TABLET (FP) PO SCH (10:54)
[2016-11-14] MEDS: PRENATAL VITAMINS W/ FOLIC ACID TABLET (FP) PO SCH (10:54)
[2016-11-14] MEDS: cloNIDine HCL 0.1 MG TABLET PO PRN (10:54)
[2016-11-14 10:55] LABS: MCH 34.2 pg (25.7-33.7); MEAN CELL VOLUME 103.7 fl (80-96); MEAN PLT VOLUME 9.5 fl (7.5-11.1); PLATELET COUNT 143 K/MM3 (134-434); RDW 13.4 % (11.6-15.6); WHITE BLOOD COUNT 2.5 K/mm3 (4.0-10.0)
[2016-11-14 11:15] LABS: INR 1.03 (0.82-1.09); PROTHROMBIN TIME (PATIENT) 11.3 SEC (9.98-11.88)
[2016-11-14] MEDS: chlordiazePOXIDE HCL 10 MG CAPSULE PO SCH (22:20)
[2016-11-14] MEDS: ZOLPIDEM TARTRATE 10 MG TABLET (PARK CARE ONLY) PO PRN (22:20)
[2016-11-14] MEDS: THIAMINE HCL 100 MG TABLET (FP) PO SCH (22:20)
[2016-11-15] MEDS: chlordiazePOXIDE HCL 10 MG CAPSULE PO SCH (05:37)
--- NOTE | 2016-11-15 08:10 | PN ---
S Progress Note (SOAP) Subjective: ALERT,NO COMPLAINT Objective: 11/15/16 08:09 Vital Signs Temperature 98.1 F 11/15/16 06:41 Pulse Rate 60 11/15/16 06:41 Respiratory Rate 18 11/15/16 06:41 Blood Pressure 116/83 11/15/16 06:41 O2 Sat by Pulse Oximetry (%) Assessment: 11/15/16 08:09 DETOX COMPLETED,NO WITHDRAWAL SYMPTOM Plan: DISCHARGE TODAY,FOLLOW UP WITH AFTER CARE PROGRAM ARRANGEMENT
--- NOTE | 2016-11-15 08:15 | DS ---
[facility] Detox Discharge Summary Admission Date: 11/11/16 Discharge Date: 11/15/16 - History Present History: Alcohol Dependence, Cannabis Dependence Additional Comments: FOLLOW UP WITH [facility] APPOINTMENT AND PMD FOR MEDICAL PROBLEM AND LEUKOPENIA Pertinent Past History: HYPERTENSION CHRONIC KNEE PAIN INSOMNIA - Physical Exam Results Vital Signs: Vital Signs Temperature 98.1 F 11/15/16 06:41 Pulse Rate 60 11/15/16 06:41 Respiratory Rate 18 11/15/16 06:41 Blood Pressure 116/83 11/15/16 06:41 O2 Sat by Pulse Oximetry (%) Pertinent Admission Physical Exam Findings: WITHDRAWAL SYMPTOM - Treatment Hospital Course: Detox Protocol Followed, Detoxed Safely, Responded well, Discharged Condition Good Patient has Accepted a Rehab Referral to: [facility] - Medication Discharge Medications: Ambulatory Orders Sertraline HCl [Zoloft -] 100 mg PO DAILY #30 tablet 11/12/16 Zolpidem Tartrate [Ambien] 10 mg PO HS #14 tablet MDD 10 11/12/16 - Diagnosis (1) Alcohol dependence with uncomplicated withdrawal Current Visit: Yes Status: Chronic (2) Cannabis dependence Current Visit: Yes Status: Chronic (3) Chronic knee pain Current Visit: Yes Status: Chronic Qualifiers: Laterality: right Qualified Code(s): M25.561 - Pain in right knee; G89.29 - Other chronic pain (4) Hypertension Current Visit: Yes Status: Chronic (5) Insomnia Current Visit: No Status: Acute (6) Depression Current Visit: Yes Status: Acute - AMA Did Patient Leave Against Medical Advice: No
--- NOTE | 2016-11-15 08:20 | PN ---
[facility] Progress Note Note: ADDENDUM Laboratory Last Values WBC 2.5 K/mm3 (4.0-10.0) L D 11/14/16 07:00 RBC 3.64 M/mm3 (3.60-5.2) 11/14/16 07:00 Hgb 12.5 GM/dL (10.7-15.3) 11/14/16 07:00 Hct 37.8 % (32.4-45.2) 11/14/16 07:00 MCV 103.7 fl (80-96) H 11/14/16 07:00 MCHC 33.0 g/dl (32.0-36.0) 11/14/16 07:00 RDW 13.4 % (11.6-15.6) 11/14/16 07:00 Plt Count 143 K/MM3 (134-434) D 11/14/16 07:00 MPV 9.5 fl (7.5-11.1) D 11/14/16 07:00 INR 1.03 (0.82-1.09) 11/14/16 07:00 Sodium 139 mmol/L (136-145) 11/14/16 07:00 Potassium 4.1 mmol/L (3.5-5.1) 11/14/16 07:00 Chloride 100 mmol/L (98-107) 11/14/16 07:00 Carbon Dioxide 31 mmol/L (21-32) 11/14/16 07:00 Anion Gap 8 (8-16) 11/14/16 07:00 BUN 9 mg/dL (7-18) D 11/14/16 07:00 Creatinine 0.7 mg/dL (0.55-1.02) 11/14/16 07:00 Creat Clearance w eGFR > 60 (>60) 11/14/16 07:00 Random Glucose 78 mg/dL (74-106) 11/14/16 07:00 Calcium 9.4 mg/dL (8.5-10.1) 11/14/16 07:00 Total Bilirubin 0.8 mg/dL (0.2-1.0) 11/14/16 07:00 AST 145 U/L (15-37) H D 11/14/16 07:00 ALT 100 U/L (12-78) H 11/14/16 07:00 Alkaline Phosphatase 124 U/L (45-117) H 11/14/16 07:00 Total Protein 8.5 g/dl (6.4-8.2) H 11/14/16 07:00 Albumin 3.6 g/dl (3.4-5.0) 11/14/16 07:00 Urine Color Yellow 11/12/16 07:00 Urine Appearance Cloudy 11/12/16 07:00 Urine pH 6.0 (5.0-8.0) 11/12/16 07:00 Ur Specific [place] 1.014 (1.001-1.035) 11/12/16 07:00 Urine Protein 1+ (NEGATIVE) H 11/12/16 07:00 Urine Glucose (UA) Negative (NEGATIVE) 11/12/16 07:00 Urine Ketones Negative (NEGATIVE) 11/12/16 07:00 Urine Blood 1+ (NEGATIVE) H 11/12/16 07:00 Urine Nitrite Positive (NEGATIVE) 11/12/16 07:00 Urine Bilirubin Negative (NEGATIVE) 11/12/16 07:00 Urine Urobilinogen Negative E.U./dl (0.2-1.0) 11/12/16 07:00 Ur Leukocyte Esterase Negative (NEGATIVE) 11/12/16 07:00 Urine RBC 2 /hpf (0-3) 11/12/16 07:00 Urine WBC 9 /hpf (3-5) 11/12/16 07:00 Ur Epithelial Cells Rare /hpf (FEW) 11/12/16 07:00 Hyaline Casts 5 /lpf 11/12/16 07:00 Urine Mucus Moderate 11/12/16 07:00 RPR Titer Nonreactive (NONREACTIVE) 11/12/16 07:00 LEUKOPENIA ADVISE FOLLOW UP WITH PMD
[2016-11-15 09:50] VITALS: BP 149/75; PULSE 91; TEMP 97.2
== END 2016-11-15 09:20 | disposition home or self-care (01) | DRG 774 ==
LOC: YASAS 16:11 → Y6N 17:47
PROVIDERS: ADMIT Internal Medicine; ATTEND Internal Medicine Addiction Medicine
PROC: HZ2ZZZZ Detoxification Services for Substance Abuse Treatment (ICD-10-PCS; principal; 2016-11-15)
DX: F10.230 Alcohol dependence with withdrawal, uncomplicated (principal); F14.20 Cocaine dependence, uncomplicated; F12.20 Cannabis dependence, uncomplicated; F32.9 Major depressive disorder, single episode, unspecified; G47.00 Insomnia, unspecified; M25.561 Pain in right knee; G89.29 Other chronic pain; F19.24 Other psychoactive substance dependence with psychoactive substance-induced mood disorder; I10 Essential (primary) hypertension; Z59.0 Homelessness
CPT/HCPCS: 36415; 80053; 81003; 81015; 85027; 85610; 86593; 93005; 93010

== ENCOUNTER 2017-01-10 14:05 | Inpatient (IN) | payer OTHER ==
[2017-01-10 14:55] VITALS: BMI 17.6
--- NOTE | 2017-01-10 18:31 | HP ---
CIWA Score - CIWA Score Nausea/Vomitin-Mild Nausea/No Vomiting Muscle Tremors: 4-Moderate,w/Arms Extend Anxiety: 4-Mod. Anxious/Guarded Agitation: 4-Moderately Restless Paroxysmal Sweats: 1-Minimal Palms Moist Orientation: 2-Disoriented Date<2 days Tacttile Disturbances: 0-None Auditory Disturbances: 0-None Visual Disturbances: 0-None Headache: 0-None Present CIWA-Ar Total Score: 16 Admission ROS S - HPI Chief Complaint: WITHDRAWAL SX Allergies/Adverse Reactions: Allergies Allergy/AdvReac Type Severity Reaction Status Date / Time No Known Allergies Allergy Verified 01/10/17 16:39 History of Present Illness: 46 YEARS OLD FEMALE WITH LONG HISTORY OF ALCOHOL DEPENDENCE DENIES MEDICAL ISSUE HAS DEPRESSION IS ADMITTED TO DETOX Exam Limitations: No Limitations - Ebola screening Have you traveled outside of the country in the last 21 days: No Have you had contact with anyone from an Ebola affected area: No Have you been sick,other than usual withdrawal symptoms: No Do you have a fever: No - Review of Systems Constitutional: Chills, Loss of Appetite, Changes in sleep, Unintentional Wgt. Loss, Unexplained wgt Loss EENT: reports: No Symptoms Reported Respiratory: reports: No Symptoms reported Cardiac: reports: No Symptoms Reported GI: reports: Nausea, Poor Appetite, Poor Fluid Intake, Abdominal cramping : reports: No Symptoms Reported Musculoskeletal: reports: Joint Pain (RIGHT KNEE) Integumentary: reports: No Symptoms Reported Neuro: reports: Tremors Endocrine: reports: No Symptoms Reported Hematology: reports: No Symptoms Reported Psychiatric: reports: Judgement Intact, Depressed Other Systems: Reviewed and Negative Patient History - Patient Medical History Hx Anemia: Yes Hx Asthma: No Hx Chronic Obstructive Pulmonary Disease (COPD): No Hx Cancer: No Hx Cardiac Disorders: Yes (heart murmur) Hx Congestive Heart Failure: No Hx Hypertension: No Hx Hypercholesterolemia: No Hx Pacemaker: No HX Cerebrovascular Accident: Yes (2002) Hx Seizures: No Hx Dementia: No Hx Diabetes: No Hx Gastrointestinal Disorders: No Hx Liver Disease: Yes (FATTY LIVER) Hx Genitourinary Disorders: No Hx Sexually Transmitted Disorders: No Hx Renal Disease (ESRD): No Hx Thyroid Disease: No Hx Human Immunodeficiency Virus (HIV): No (negative) Hx Hepatitis C: No (negative) Hx Depression: Yes Hx Suicide Attempt: No Hx Bipolar Disorder: No Hx Schizophrenia: No - Patient Surgical History Past Surgical History: Yes Hx Neurologic Surgery: No Hx Cataract Extraction: No Hx Cardiac Surgery: No Hx Lung Surgery: No Hx Breast Surgery: No Hx Breast Biopsy: No Hx Abdominal Surgery: Yes (hernia repair) Hx Appendectomy: No Hx Cholecystectomy: No Hx Genitourinary Surgery: No Hx Section: No Hx Orthopedic Surgery: Yes (right knee, 07/29/2015) Hx Hysterectomy: No Other Surgical History: R inguinal hernia repair Anesthesia Reaction: No - PPD History Previous Implant?: Yes Documented Results: Negative w/proof Implanted On Prior [facility] Admission?: Yes Date: 09/30/16 Results: 0 mm PPD to be Administered?: No - Reproductive History Patient is a Female of Child Bearing Age (11 -55 yrs old): Yes Last Menstrual Period: 06/27/15 Patient : No - Smoking Cessation Smoking history: Never smoked Have you smoked in the past 12 months: No Aproximately how many cigarettes per day: 0 Cigars Per Day: 0 Hx Chewing Tobacco Use: No Initiated information on smoking cessation: No - Substance & Tx. History Hx Alcohol Use: Yes Hx Substance Use: No Substance Use Type: Alcohol Hx Substance Use Treatment: Yes (11/11-11/15/16) - Substances Abused Alcohol Route: Oral Frequency: Daily Amount used: beer 6 of 24 oz Age of first use: 18 Date of Last Use: 01/10/17 Family Disease History - Family Disease History Family Disease History: Diabetes: Mother (htn .asthma ), Heart Disease: Mother, Other: Father (), Mother Admission Physical Exam S - Vital Signs Vital Signs: Vital Signs - 24 hr 01/10/17 14:52 Temperature 97.0 F L Pulse Rate 87 Respiratory 18 Rate Blood Pressure 123/85 - Physical General Appearance: Yes: Appropriately Dressed, Mild Distress, Alcohol on Breath , Thin, Tremorous, Irritable, Sweating, Anxious HEENTM: Yes: Hearing grossly Normal, Normal ENT Inspection, Normocephalic, Normal Voice Respiratory: Yes: Chest Non-Tender, No Respiratory Distress, No Accessory Muscle Use, Hyperresonant Neck: Yes: Supple, Trachea in good position Breast: Yes: Breasts Symetrical Cardiology: Yes: Regular Rhythm, Regular Rate, S1, S2 Abdominal: Yes: Non Tender, Soft Genitourinary: Yes: Within Normal Limits Musculoskeletal: Yes: full range of Motion, Gait Steady Extremities: Yes: Normal Range of Motion, Non-Tender, Tremors Neurological: Yes: Alert, Motor Strength 5/5, Normal Mood/Affect, Normal Response Integumentary: Yes: Warm Lymphatic: Yes: Within Normal Limits - Diagnostic (1) Depression Current Visit: Yes Status: Suspected Qualifiers: Depression Type: dysthymia Qualified Code(s): F34.1 - Dysthymic disorder (2) Alcohol dependence with uncomplicated withdrawal Current Visit: Yes Status: Acute (3) Weight loss Current Visit: Yes Status: Acute Cleared for Admission [facility] - Detox or Rehab [facility] Level of Care: Medically Managed Detox Regimen/Protocol: Librium [facility] Breath Alcohol Content Breath Alcohol Content: 0.400 Urine Pregancy Test - Result Urine Test Results: Negative- NO Line Present Urine Drug Screen - Results Drug Screen Negative: No Urine Drug Screen Results: PCP-Phencyclidine, TCA-Tricyclic Antidepress
[2017-01-10] MEDS ORDERED: MAG HYDROX/AL HYDROX/SIMETH 30 ML UNIT-DOSE CUP PO PRN (18:37)
[2017-01-10] MEDS ORDERED: MAGNESIUM HYDROX 2400MG/30ML ORAL SUSPENSION 30 ML CUP PO PRN (18:37)
[2017-01-10] MEDS ORDERED: diphenhydrAMINE HCL 50 MG CAPSULE PO PRN (18:37)
[2017-01-10] MEDS ORDERED: ACETAMINOPHEN 325 MG TABLET (FP) PO PRN (18:37)
[2017-01-10] MEDS ORDERED: MENTHOL/PHENOL 1 EACH UD MM PRN (18:37)
[2017-01-10] MEDS ORDERED: IBUPROFEN 400 MG TABLET (FP) PO PRN (18:37)
[2017-01-10] MEDS ORDERED: chlordiazePOXIDE HCL 25 MG CAPSULE PO PRN (18:37)
[2017-01-10] MEDS ORDERED: P-EPHED 60MG/TRIPROLIDI 2.5MG TABLET PO PRN (18:37)
[2017-01-10] MEDS ORDERED: MAGNESIUM CITRATE 300 ML BOTTLE PO PRN (18:37)
[2017-01-10] MEDS ORDERED: guaiFENesin/D-METHORPHAN HB 10 ML UNIT-DOSE CUPS PO PRN (18:37)
[2017-01-10] MEDS ORDERED: LOPERAMIDE HCL 2 MG CAPSULE PO PRN (18:37)
[2017-01-10] MEDS: THIAMINE HCL 100 MG TABLET (FP) PO SCH (22:26)
[2017-01-10] MEDS: chlordiazePOXIDE HCL 25 MG CAPSULE PO SCH (22:26)
[2017-01-10] MEDS: PATIENT'S OWN MEDICATION (NON-FORMULARY) (Amox-Tr/K Cl [Augmentin 875-125mg Tablet -] 1 TA PO SCH (22:55)
[2017-01-10] MEDS: MUPIROCIN TP SCH (22:55)
[2017-01-10 22:57] LABS: URINE APPEARANCE CLEAR; URINE BILIRUBIN NEGATIVE (NEGATIVE); URINE BLOOD NEGATIVE (NEGATIVE); URINE COLOR COLORLESS; URINE GLUCOSE (UA) NEGATIVE (NEGATIVE); URINE KETONE NEGATIVE (NEGATIVE); URINE LEUK ESTERASE NEGATIVE (NEGATIVE); URINE NITRITE NEGATIVE (NEGATIVE); URINE PROTEIN NEGATIVE (NEGATIVE); URINE UROBILINOGEN NEGATIVE E.U./dl (0.2-1.0)
[2017-01-11] MEDS: chlordiazePOXIDE HCL 25 MG CAPSULE PO SCH ×4 (05:59→22:24)
--- NOTE | 2017-01-11 09:47 | EKG ---
Test Reason : Blood Pressure : / mmHG Vent. Rate : 089 BPM Atrial Rate : 090 BPM P-R Int : 168 ms QRS Dur : 088 ms QT Int : 394 ms P-R-T Axes : 071 092 074 degrees QTc Int : 479 ms NORMAL SINUS RHYTHM RIGHTWARD AXIS SEPTAL INFARCT (CITED ON OR BEFORE 11-NOV-2016) ABNORMAL ECG WHEN COMPARED WITH ECG OF 11-NOV-2016 20:40, QUESTIONABLE CHANGE IN INITIAL FORCES OF ANTERIOR LEADS Confirmed by GAMAL MCNULTY MD ([id number]) on 01/11/2017 9:46:47 AM Referred By: Confirmed By:GAMAL MCNULTY MD
[2017-01-11 09:58] LABS: MCH 34.6 pg (25.7-33.7); MCHC 33.4 g/dl (32.0-36.0); MEAN CELL VOLUME 103.5 fl (80-96); MEAN PLT VOLUME 8.9 fl (7.5-11.1); PLATELET COUNT 137 K/MM3 (134-434); RDW 14.3 % (11.6-15.6); WHITE BLOOD COUNT 2.4 K/mm3 (4.0-10.0)
[2017-01-11] MEDS: MUPIROCIN TP SCH ×2 (10:47→22:24)
[2017-01-11] MEDS: PRENATAL VITAMINS W/ FOLIC ACID TABLET (FP) PO SCH (10:48)
[2017-01-11] MEDS: PATIENT'S OWN MEDICATION (NON-FORMULARY) (Amox-Tr/K Cl [Augmentin 875-125mg Tablet -] 1 TA PO SCH ×2 (10:48→22:24)
--- NOTE | 2017-01-11 11:09 | PN ---
[facility] CIWA - CIWA Score Nausea/Vomitin Muscle Tremors: 3 Anxiety: 2 Agitation: 2 Paroxysmal Sweats: 1-Minimal Palms Moist Orientation: 0-Oriented Tacttile Disturbances: 1-Very Mild Itch/Numbness Auditory Disturbances: 1-Very Mild Visual Disturbances: 1-Very Mild Sensitivity Headache: 2-Mild CIWA-Ar Total Score: 16 S Progress Note (SOAP) Subjective: alert,irritable,anxious,interrupted sleep,tremor Objective: 01/11/17 11:05 Vital Signs Temperature 99.1 F 01/11/17 10:14 Pulse Rate 97 H 01/11/17 10:14 Respiratory Rate 18 01/11/17 10:14 Blood Pressure 133/95 01/11/17 10:14 O2 Sat by Pulse Oximetry (%) Laboratory Last Values WBC 2.4 K/mm3 (4.0-10.0) L 01/11/17 07:00 RBC 3.40 M/mm3 (3.60-5.2) L 01/11/17 07:00 Hgb 11.8 GM/dL (10.7-15.3) 01/11/17 07:00 Hct 35.2 % (32.4-45.2) 01/11/17 07:00 MCV 103.5 fl (80-96) H 01/11/17 07:00 MCHC 33.4 g/dl (32.0-36.0) 01/11/17 07:00 RDW 14.3 % (11.6-15.6) 01/11/17 07:00 Plt Count 137 K/MM3 (134-434) 01/11/17 07:00 MPV 8.9 fl (7.5-11.1) 01/11/17 07:00 Sodium 140 mmol/L (136-145) 01/11/17 07:00 Potassium 3.9 mmol/L (3.5-5.1) 01/11/17 07:00 Chloride 103 mmol/L (98-107) 01/11/17 07:00 Urine Color Colorless 01/10/17 22:52 Urine Appearance Clear 01/10/17 22:52 Urine pH 6.0 (5.0-8.0) 01/10/17 22:52 Ur Specific [place] <= 1.005 (1.005-1.025) 01/10/17 22:52 Urine Protein Negative (NEGATIVE) 01/10/17 22:52 Urine Glucose (UA) Negative (NEGATIVE) 01/10/17 22:52 Urine Ketones Negative (NEGATIVE) 01/10/17 22:52 Urine Blood Negative (NEGATIVE) 01/10/17 22:52 Urine Nitrite Negative (NEGATIVE) 01/10/17 22:52 Urine Bilirubin Negative (NEGATIVE) 01/10/17 22:52 Urine Urobilinogen Negative E.U./dl (0.2-1.0) 01/10/17 22:52 Ur Leukocyte Esterase Negative (NEGATIVE) 01/10/17 22:52 labs pending Assessment: 01/11/17 11:08 01/11/17 11:08 withdrawal symptom Plan: continue detox
[2017-01-11 11:11] LABS: ALBUMIN 3.3 g/dl (3.4-5.0); ALK PHOS 101 U/L (45-117); ANION GAP 9 (8-16); BILIRUBIN,TOTAL 0.5 mg/dL (0.2-1.0); CALCIUM 8.3 mg/dL (8.5-10.1); CO2 28 mmol/L (21-32); CREATININE 0.6 mg/dL (0.55-1.02); GLUCOSE,RANDOM 63 mg/dL (74-106); SGOT/AST 41 U/L (15-37); SGPT/ALT 26 U/L (12-78); TOT PROT 7.9 g/dl (6.4-8.2)
--- NOTE | 2017-01-11 14:00 | CONSULT ---
[facility] Psychiatric Consult - Data Date of interview: 01/11/17 Admission source: [facility] Identifying data: Another admission to [facility] for this 46 y/o AA female seeking detox treatment on for alcohol and marijuana dependence.Patient is ,a mother of five,homeless,unemployed and supported on food stamps. Substance Abuse History: - Smoking Cessation. Smoking history: Never smoked. Have you smoked in the past 12 months: No. Aproximately how many cigarettes per day: 0. Cigars Per Day: 0. Hx Chewing Tobacco Use: No. Initiated information on smoking cessation: No. - Substance & Tx. History. Hx Alcohol Use: Yes. Hx Substance Use: No. Substance Use Type: Alcohol. Hx Substance Use Treatment: Yes (11/11-11/15/16). - Substances Abused. Alcohol. Route: Oral. Frequency: Daily. Amount used: beer 6 of 24 oz. Age of first use: 18. Date of Last Use: 01/10/17. Confirmed by patient. Medical History: Anemia,liver disease,cerebrovascular accident (CVA) in 2001, heart murmur and a history of right inguinal herniorraphy.Noted recent history or right knee replacement (2015). Psychiatric History: Patient denies history of psychiatric hospitalizations.No OPD care.Ms Anthony reports that she has stopped taking sertraline since her discharge from [facility] in September 2016.Expresses no intention to resume that drug.Patient,however,is requesting medication for insomnia.No reported history of suicide attempts. Physical/Sexual Abuse/Trauma History: Patient denies. Additional Comment: Urine Drug Screen Results: PCP-Phencyclidine, TCA-Tricyclic Antidepressant.Noted. Mental Status Exam - Mental Status Exam Alert and Oriented to: Time, Place, Person Cognitive Function: Grossly Intact Patient Appearance: Disheveled Mood: Nervous, Withdrawn Affect: Mood Congruent Patient Behavior: Fatigued, Cooperative Speech Pattern: Clear Voice Loudness: Normal Thought Process: Goal Oriented Thought Disorder: Not Present Hallucinations: Denies Suicidal Ideation: Denies Homicidal Ideation: Denies Insight/Judgement: Poor Sleep: Poorly, Difficulty falling asleep Appetite: Fair Muscle strength/Tone: Normal (no complaint offered) Gait/Station: Normal Psychiatric Findings - Problem List ([place] 1, 2,3) (1) Alcohol dependence with uncomplicated withdrawal Current Visit: Yes Status: Acute (2) PCP abuse Current Visit: Yes Status: Acute (3) Drug-induced mood disorder Current Visit: Yes Status: Acute (4) Weight loss Current Visit: Yes Status: Chronic (5) Chronic knee pain Current Visit: Yes Status: Chronic Qualifiers: Laterality: right Qualified Code(s): M25.561 - Pain in right knee; G89.29 - Other chronic pain (6) Hypertension Current Visit: Yes Status: Chronic (7) Insomnia Current Visit: Yes Status: Acute - Initial Treatment Plan Initial Treatment Plan: Psychoeducation.Detoxification.Ambien 5 mg po hs prn.Patient made aware of potential for parasomnias.She agrees with this careplan.Observation.
[2017-01-11] MEDS: ZOLPIDEM TARTRATE 5 MG TABLET PO PRN (22:23)
[2017-01-11] MEDS: THIAMINE HCL 100 MG TABLET (FP) PO SCH (22:24)
[2017-01-12] MEDS: chlordiazePOXIDE HCL 25 MG CAPSULE PO SCH ×3 (05:23→18:12)
[2017-01-12] MEDS: PRENATAL VITAMINS W/ FOLIC ACID TABLET (FP) PO SCH (10:37)
[2017-01-12] MEDS: PATIENT'S OWN MEDICATION (NON-FORMULARY) (Amox-Tr/K Cl [Augmentin 875-125mg Tablet -] 1 TA PO SCH ×2 (10:38→22:25)
[2017-01-12] MEDS: MUPIROCIN TP SCH ×2 (10:38→22:25)
--- NOTE | 2017-01-12 15:08 | PN ---
S CIWA - CIWA Score Nausea/Vomitin-Mild Nausea/No Vomiting Muscle Tremors: 4-Moderate,w/Arms Extend Anxiety: 3 Agitation: 3 Paroxysmal Sweats: 3 Orientation: 0-Oriented Tacttile Disturbances: 0-None Auditory Disturbances: 0-None Visual Disturbances: 0-None Headache: 0-None Present CIWA-Ar Total Score: 14 [facility] Progress Note (SOAP) Subjective: Anxiety,tremors,sweating,interrupted sleep,restless Objective: 01/12/17 15:07 Vital Signs - 8 hr 01/12/17 01/12/17 10:00 14:49 Temperature 97.9 F 97.9 F Pulse Rate 87 95 H Respiratory 16 18 Rate Blood Pressure 147/103 125/98 Laboratory Tests 01/10/17 01/11/17 01/11/17 22:52 07:00 07:00 WBC 2.4 L RBC 3.40 L Hgb 11.8 Hct 35.2 MCV 103.5 H MCHC 33.4 RDW 14.3 Plt Count 137 MPV 8.9 Sodium 140 Potassium 3.9 Chloride 103 Carbon Dioxide 28 Anion Gap 9 BUN 7 D Creatinine 0.6 Creat Clearance w eGFR > 60 Random Glucose 63 L Calcium 8.3 L Total Bilirubin 0.5 D AST 41 H D ALT 26 D Alkaline Phosphatase 101 Total Protein 7.9 Albumin 3.3 L Urine Color Colorless Urine Appearance Clear Urine pH 6.0 Ur Specific [place] <= 1.005 Urine Protein Negative Urine Glucose (UA) Negative Urine Ketones Negative Urine Blood Negative Urine Nitrite Negative Urine Bilirubin Negative Urine Urobilinogen Negative Ur Leukocyte Esterase Negative RPR Titer 01/11/17 07:00 WBC RBC Hgb Hct MCV MCHC RDW Plt Count MPV Sodium Potassium Chloride Carbon Dioxide Anion Gap BUN Creatinine Creat Clearance w eGFR Random Glucose Calcium Total Bilirubin AST ALT Alkaline Phosphatase Total Protein Albumin Urine Color Urine Appearance Urine pH Ur Specific [place] Urine Protein Urine Glucose (UA) Urine Ketones Urine Blood Urine Nitrite Urine Bilirubin Urine Urobilinogen Ur Leukocyte Esterase RPR Titer Nonreactive labs noted Assessment: 01/12/17 15:07 Withdrawal sx. Plan: Continue detox
[2017-01-12] MEDS: ZOLPIDEM TARTRATE 5 MG TABLET PO PRN (22:25)
[2017-01-12] MEDS: THIAMINE HCL 100 MG TABLET (FP) PO SCH (22:25)
[2017-01-12] MEDS: chlordiazePOXIDE 5 MG CAPSULE PO SCH (22:25)
[2017-01-13] MEDS: chlordiazePOXIDE 5 MG CAPSULE PO SCH ×3 (05:38→17:46)
[2017-01-13] MEDS: MUPIROCIN TP SCH ×2 (10:21→22:34)
[2017-01-13] MEDS: PATIENT'S OWN MEDICATION (NON-FORMULARY) (Amox-Tr/K Cl [Augmentin 875-125mg Tablet -] 1 TA PO SCH ×2 (10:21→22:34)
[2017-01-13] MEDS: PRENATAL VITAMINS W/ FOLIC ACID TABLET (FP) PO SCH (10:21)
--- NOTE | 2017-01-13 11:45 | PN ---
[facility] Progress Note (SOAP) Subjective: Sweating, interrupted sleep, restless Objective: 01/13/17 11:42 Vital Signs 01/13/17 01/13/17 06:35 10:00 Temperature 97.7 F 98.1 F Pulse Rate 67 79 Respiratory 20 16 Rate Blood Pressure 133/98 141/93 Laboratory Tests 01/10/17 01/11/17 01/11/17 22:52 07:00 07:00 WBC 2.4 L RBC 3.40 L Hgb 11.8 Hct 35.2 MCV 103.5 H MCHC 33.4 RDW 14.3 Plt Count 137 MPV 8.9 Sodium 140 Potassium 3.9 Chloride 103 Carbon Dioxide 28 Anion Gap 9 BUN 7 D Creatinine 0.6 Creat Clearance w eGFR > 60 Random Glucose 63 L Calcium 8.3 L Total Bilirubin 0.5 D AST 41 H D ALT 26 D Alkaline Phosphatase 101 Total Protein 7.9 Albumin 3.3 L Urine Color Colorless Urine Appearance Clear Urine pH 6.0 Ur Specific [place] <= 1.005 Urine Protein Negative Urine Glucose (UA) Negative Urine Ketones Negative Urine Blood Negative Urine Nitrite Negative Urine Bilirubin Negative Urine Urobilinogen Negative Ur Leukocyte Esterase Negative RPR Titer 01/11/17 07:00 WBC RBC Hgb Hct MCV MCHC RDW Plt Count MPV Sodium Potassium Chloride Carbon Dioxide Anion Gap BUN Creatinine Creat Clearance w eGFR Random Glucose Calcium Total Bilirubin AST ALT Alkaline Phosphatase Total Protein Albumin Urine Color Urine Appearance Urine pH Ur Specific [place] Urine Protein Urine Glucose (UA) Urine Ketones Urine Blood Urine Nitrite Urine Bilirubin Urine Urobilinogen Ur Leukocyte Esterase RPR Titer Nonreactive labs noted WBC 2.5 no need to repeat Assessment: 01/13/17 11:44 Withdrawal sx Plan: Continue detox
[2017-01-13] MEDS: chlordiazePOXIDE HCL 10 MG CAPSULE PO SCH (22:34)
[2017-01-13] MEDS: THIAMINE HCL 100 MG TABLET (FP) PO SCH (22:35)
[2017-01-13] MEDS: ZOLPIDEM TARTRATE 5 MG TABLET PO PRN (22:37)
[2017-01-14] MEDS: chlordiazePOXIDE HCL 10 MG CAPSULE PO SCH (05:39)
--- NOTE | 2017-01-14 08:30 | PN ---
S Progress Note (SOAP) Subjective: ALERT,NO COMPLAINT Objective: 01/14/17 08:28 Vital Signs Temperature 97.7 F 01/14/17 06:00 Pulse Rate 75 01/14/17 06:00 Respiratory Rate 16 01/14/17 06:00 Blood Pressure 122/58 01/14/17 06:00 O2 Sat by Pulse Oximetry (%) Assessment: 01/14/17 08:28 DETOX COMPLETED.NO WITHDRAWAL SYMPTOM 01/14/17 08:28 Plan: DISCHARGE TODAY,FOLLOW UP WITH AFTER CARE PROGRAM ARRANGEMENT
--- NOTE | 2017-01-14 08:34 | DS ---
[facility] Detox Discharge Summary Admission Date: 01/10/17 Discharge Date: 01/14/17 - History Present History: Alcohol Dependence Additional Comments: FOLLOW UP WITH AFTER CARE PROGRAM ARRANGEMENT - Physical Exam Results Vital Signs: Vital Signs Temperature 97.7 F 01/14/17 06:00 Pulse Rate 75 01/14/17 06:00 Respiratory Rate 16 01/14/17 06:00 Blood Pressure 122/58 01/14/17 06:00 O2 Sat by Pulse Oximetry (%) Pertinent Admission Physical Exam Findings: WITHDRAWAL SYMPTOM - Treatment Hospital Course: Detox Protocol Followed, Detoxed Safely, Responded well, Discharged Condition Good Patient has Accepted a Rehab Referral to: DECLINED - Medication Discharge Medications: Ambulatory Orders Mupirocin Ointment [Bactroban] 1 applic TP BID 01/10/17 Amox-Tr/K Cl [Augmentin 875-125mg Tablet -] 1 tab PO BID #10 cap 01/14/17 - Diagnosis (1) Alcohol dependence with uncomplicated withdrawal Current Visit: Yes Status: Acute (2) Weight loss Current Visit: Yes Status: Chronic (3) Depression Current Visit: Yes Status: Suspected Qualifiers: Depression Type: dysthymia Qualified Code(s): F34.1 - Dysthymic disorder (4) Furuncle Current Visit: Yes Status: Acute - AMA Did Patient Leave Against Medical Advice: No
[2017-01-14] MEDS: PRENATAL VITAMINS W/ FOLIC ACID TABLET (FP) PO SCH (09:24)
[2017-01-14] MEDS: PATIENT'S OWN MEDICATION (NON-FORMULARY) (Amox-Tr/K Cl [Augmentin 875-125mg Tablet -] 1 TA PO SCH (09:24)
[2017-01-14] MEDS: MUPIROCIN TP SCH (09:24)
[2017-01-14 10:45] VITALS: BP 143/96; PULSE 92; TEMP 98.2
== END 2017-01-14 09:30 | disposition home or self-care (01) | DRG 775 ==
LOC: YASAS 14:05 → Y6N 16:39
PROVIDERS: ADMIT Internal Medicine; ATTEND Internal Medicine
PROC: HZ2ZZZZ Detoxification Services for Substance Abuse Treatment (ICD-10-PCS; principal; 2017-01-10)
DX: F10.230 Alcohol dependence with withdrawal, uncomplicated (principal); F16.10 Hallucinogen abuse, uncomplicated; F34.1 Dysthymic disorder; F19.24 Other psychoactive substance dependence with psychoactive substance-induced mood disorder; I10 Essential (primary) hypertension; L02.92 Furuncle, unspecified; M25.561 Pain in right knee; G89.29 Other chronic pain; G47.00 Insomnia, unspecified; D64.9 Anemia, unspecified; R01.1 Cardiac murmur, unspecified; K76.0 Fatty (change of) liver, not elsewhere classified; Z86.73 Personal history of transient ischemic attack (TIA), and cerebral infarction without residual deficits; Z87.898 Personal history of other specified conditions
CPT/HCPCS: 36415; 80053; 81003; 85027; 86593; 93005; 93010

== ENCOUNTER → 2017-02-10 | Emergency (ER) | payer SELFPAY ==
[~2017-02-10] MED LIST: ACETAMINOPHEN 325 MG TABLET (FP) ONE; ACETAMINOPHEN 325 MG TABLET (FP) PO ONE; FOLIC ACID INJECTION - 1 MG, THIAMINE HCL 100 MG, MULTIVIT INJECTION ADULT 10 ML in SOD... IVPB ONE; LEVOFLOXACIN 500 MG IVPB 100 ML IVPB ONE; MAGNESIUM SULF 50% (8.12 MEQ/2 ML-1 GM VIAL) IVPB ONE; MAGNESIUM SULF 50% (8.12 MEQ/2 ML-1 GM VIAL) ONE; POTASSIUM CHLORIDE 20 MEQ PREMIX IVPB 100 ML IVPB ONE; POTASSIUM CHLORIDE TABS 20 MEQ TABLET.ER (FP) PO ONE; SODIUM CHLORIDE 0.9% 1000 ML INFUS.BAG IV ONE; SULFAMETHOXAZOLE/TRIMETHOPRIM 800MG/160MG D.S. TABLET ONE; SULFAMETHOXAZOLE/TRIMETHOPRIM 800MG/160MG D.S. TABLET PO ONE
[2017-02-10 19:01] VITALS: BMI 17.3
--- NOTE | 2017-02-10 19:20 | PDOC ---
History of Present Illness - General Chief Complaint: Alcohol intoxication Stated Complaint: INTOX, DIZZINESS Time Seen by Provider: 02/10/17 18:51 Past History - Past Medical History Allergies/Adverse Reactions: Allergies Allergy/AdvReac Type Severity Reaction Status Date / Time No Known Allergies Allergy Verified 01/10/17 16:39 Home Medications: Ambulatory Orders Levofloxacin [Levaquin -] 500 mg PO DAILY #10 tablet 02/11/17 Anemia: Yes Asthma: No Cancer: No Cardiac Disorders: Yes (heart murmur) CVA: Yes (2002) COPD: No CHF: No Dementia: No Diabetes: No GI Disorders: No Disorders: No HTN: No Hypercholesterolemia: No Kidney Stones: No Liver Disease: Yes (FATTY LIVER) Suicide Attempt (Hx): No Seizures: No Thyroid Disease: No Other medical history: ETOH & DRUG ADDICTION. - Surgical History Abdominal Surgery: Yes (hernia repair) Appendectomy: No Cardiac Surgery: No Cholecystectomy: No Lung Surgery: No Neurologic Surgery: No Orthopedic Surgery: Yes (right knee, 07/29/2015) - Reproductive History PID: No - Psycho/Social/Smoking Cessation Hx Anxiety: No Suicidal Ideation: No Smoking Status: No Smoking History: Never smoked Have you smoked in the past 12 months: No Number of Cigarettes Smoked Daily: 0 Cigars Per Day: 0 'Breaking Loose' booklet given: 09/28/16 Hx Alcohol Use: Yes (beer) Drug/Substance Use Hx: Yes (marijuana) Substance Use Type: Alcohol, Marijuana Hx Substance Use Treatment: Yes (11/11-11/15/16) *Physical Exam - Vital Signs Last Vital Signs Temp Pulse Resp BP Pulse Ox 99.2 F 79 18 103/76 100 02/10/17 18:39 02/10/17 18:39 02/10/17 18:39 02/10/17 18:39 02/10/17 18:39 ED Treatment Course - LABORATORY CBC & Chemistry Diagram: 02/10/17 20:05 02/11/17 01:19 *DC/Admit/Observation/Transfer Diagnosis at time of Disposition: UTI (urinary tract infection) - Discharge Dispostion Disposition: HOME Condition at time of disposition: Stable - Prescriptions Prescriptions: Levofloxacin [Levaquin -] 500 mg PO DAILY #10 tablet - Patient Instructions Printed Discharge Instructions: Urinary Tract Infection Additional Instructions: Please return if symptoms persist, worsen, or if new symptoms develop. Please take the entire antibiotic prescription as prescribed. Print Language: PERSIAN Attending Attestation - Resident Resident Name: Jesús Breaux - HPI HPI: 02/11/17 03:17 46 yo female sent from [facility] intake for medical clearance 02/11/17 03:19 - Physicial Exam PE: 02/11/17 03:19 thin 46 yo female who is conversant and able to answer all questions. she has c /o rt flank pain lungs cta b/l cvr [id number] abd no rebound,no guarding mild rt cva tenderness neuro no gross focal neuro deficits - Medical Decision Making 02/11/17 03:21 pt has fever 101.3, found to have UTI, given tylenol and antibiotics
--- NOTE | 2017-02-10 19:53 | PDOC ---
History of Present Illness - General Chief Complaint: Alcohol intoxication Stated Complaint: INTOX, DIZZINESS Time Seen by Provider: 02/10/17 18:51 History Source: Patient Exam Limitations: Intoxication - History of Present Illness Initial Comments: 02/10/17 19:46 The patient is a 46F with a PMH of HTN and alcohol dependence who has presented from her detox center and states that she has multiple complaints. She states that she hasn't eaten for 5 days, hasn't slept, has a fever for 3 days, and has night sweats and cold sweats during the same time period. The patient's last drink was a 22oz beer around noon today. She said that she was feeling so poorly , she went to her detox facility and then was sent here by the medical professional. PSH: None Allergies: NKDA Meds: amox 800 for UTI 1 month ago that she did not finish Social: Drinks daily 8-22oz beers, smokes marijuana, does not smoke cigarettes or use IV drugs Past History - Past Medical History Allergies/Adverse Reactions: Allergies Allergy/AdvReac Type Severity Reaction Status Date / Time No Known Allergies Allergy Verified 01/10/17 16:39 Home Medications: Ambulatory Orders Levofloxacin [Levaquin -] 500 mg PO DAILY #10 tablet 02/11/17 Anemia: Yes Asthma: No Cancer: No Cardiac Disorders: Yes (heart murmur) CVA: Yes (2002) COPD: No CHF: No Dementia: No Diabetes: No GI Disorders: No Disorders: No HTN: No Hypercholesterolemia: No Kidney Stones: No Liver Disease: Yes (FATTY LIVER) Suicide Attempt (Hx): No Seizures: No Thyroid Disease: No Other medical history: ETOH & DRUG ADDICTION. - Surgical History Abdominal Surgery: Yes (hernia repair) Appendectomy: No Cardiac Surgery: No Cholecystectomy: No Lung Surgery: No Neurologic Surgery: No Orthopedic Surgery: Yes (right knee, 07/29/2015) - Reproductive History PID: No - Psycho/Social/Smoking Cessation Hx Anxiety: No Suicidal Ideation: No Smoking Status: No Smoking History: Never smoked Have you smoked in the past 12 months: No Number of Cigarettes Smoked Daily: 0 Cigars Per Day: 0 'Breaking Loose' booklet given: 09/28/16 Hx Alcohol Use: Yes (beer) Drug/Substance Use Hx: Yes (marijuana) Substance Use Type: Alcohol, Marijuana Hx Substance Use Treatment: Yes (11/11-11/15/16) Review of Systems - Review of Systems Able to Perform ROS?: Yes Is the patient limited Salvadorean proficient: No Constitutional: Yes: Chills, Fever, Loss of Appetite, Night Sweats, Unintentional Wgt. Loss Respiratory: No: Cough, Shortness of Breath Cardiac (ROS): Yes: Chest Pain (Feels like a "knot", no radiation, not worse w/ movement, worse w/ drinking) ABD/GI: Yes: Diarrhea (was bloody, no longer is). No: Nausea, Vomiting, Other ( abd pain) : No: Dysuria, Discharge Neurological: No: Headache *Physical Exam - Vital Signs Last Vital Signs Temp Pulse Resp BP Pulse Ox 99.2 F 79 18 103/76 100 02/10/17 18:39 02/10/17 18:39 02/10/17 18:39 02/10/17 18:39 02/10/17 18:39 - Physical Exam General Appearance: Yes: Intoxicated, Other (Slurring her speech) HEENT: positive: Normal Voice Respiratory/Chest: positive: Wheezing (Expiratory in L lung renteria). negative: Respiratory Distress, Labored Respiration, Rapid RR, Decreased Breath Sounds Cardiovascular: positive: Regular Rhythm, Regular Rate, S1, S2 Gastrointestinal/Abdominal: positive: Flat, Soft. negative: Tender Musculoskeletal: positive: CVA Tenderness (L). negative: CVA Tenderness (R) Extremity: positive: Normal Range of Motion. negative: Swelling Integumentary: positive: Dry, Warm ED Treatment Course - LABORATORY CBC & Chemistry Diagram: 02/10/17 20:05 02/11/17 01:19 Medical Decision Making - Medical Decision Making 02/10/17 22:50 Patient is a 46 F here s/p intoxication and generalized body pain. She was treated for a UTI but did not complete treatment. I have ordered labs and a UA and will monitor for results. Patient has a K of 2.9. I have ordered oral K to replace hypokalemia. 02/11/17 04:57 Repeat temp is 99.8 and patient is comfortable with outpatient treatment for UTI. She agrees to picker and sorter load and unload her prescription and take it as prescribed. She is ready for discharge. 02/11/17 04:57 Repeat K = 3.9 *DC/Admit/Observation/Transfer Diagnosis at time of Disposition: Urinary tract infection Qualifiers: Urinary tract infection type: site unspecified Hematuria presence: without hematuria Qualified Code(s): N39.0 - Urinary tract infection, site not specified - Discharge Dispostion Disposition: HOME Condition at time of disposition: Stable Admit: No - Prescriptions Prescriptions: Levofloxacin [Levaquin -] 500 mg PO DAILY #10 tablet - Patient Instructions Additional Instructions: Please return if symptoms persist, worsen, or if new symptoms develop. Please take the entire antibiotic prescription as prescribed. - Attestations Physician Attestion: 02/11/17 04:59 I, Dr. Jesús Breaux, attest that this document has been prepared under my direction and personally reviewed by me in its entirety. I further attest, that it accurately reflects all work, treatment, procedures and medical decision -making performed by me.
[2017-02-10 20:16] LABS: URINE APPEARANCE CLEAR; URINE BILIRUBIN NEGATIVE (NEGATIVE); URINE COLOR LTYELLOW; URINE GLUCOSE (UA) NEGATIVE (NEGATIVE); URINE KETONE NEGATIVE (NEGATIVE); URINE NITRITE NEGATIVE (NEGATIVE); URINE PROTEIN NEGATIVE (NEGATIVE); URINE UROBILINOGEN NEGATIVE mg/dL (0.2-1.0)
[2017-02-10 20:20] LABS: BASOPHIL 0.5 % (0-2.0); MCHC 32.5 g/dl (32.0-36.0); MEAN CELL VOLUME 101.8 fl (80-96); MEAN PLT VOLUME 9.1 fl (7.5-11.1); NEUTROPHILS 65.9 % (42.8-82.8); PLATELET COUNT 215 K/MM3 (134-434); RDW 13.8 % (11.6-15.6); WHITE BLOOD COUNT 8.2 K/mm3 (4.0-10.0)
[2017-02-10 20:26] LABS: URINE BLOOD 1+ (NEGATIVE); URINE LEUK ESTERASE 2+ (NEGATIVE)
[2017-02-10 20:42] LABS: URINE MARIJUANA THC POSITIVE ng/ml (CUTOFF=50)
[2017-02-10 21:54] LABS: ALBUMIN 2.8 g/dl (3.4-5.0); ALK PHOS 82 U/L (45-117); ANION GAP 11 (8-16); BILIRUBIN,TOTAL 0.3 mg/dL (0.2-1.0); CALCIUM 8.4 mg/dL (8.5-10.1); CO2 23 mmol/L (21-32); CREATININE 0.8 mg/dL (0.55-1.02); GLUCOSE,RANDOM 123 mg/dL (74-106); SGOT/AST 21 U/L (15-37); SGPT/ALT 16 U/L (12-78); TOT PROT 7.9 g/dl (6.4-8.2)
[2017-02-11 02:03] LABS: ANION GAP 7 (8-16); CO2 26 mmol/L (21-32); CREATININE 0.6 mg/dL (0.55-1.02); GLUCOSE,RANDOM 87 mg/dL (74-106)
[2017-02-11 02:24] LABS: URINE BACTERIA MANY /hpf (NONE SEEN); URINE MUCUS RARE; URINE RBC 1 /hpf (0-3); URINE WBC 16 /hpf (3-5)
[2017-02-11 04:40] VITALS: BP 119/68; PULSE 87; TEMP 99.8
== END | disposition home or self-care (01) ==
LOC: JER 18:33
PROC: 3E033GC Introduction of Other Therapeutic Substance into Peripheral Vein, Percutaneous Approach (ICD-10-PCS; principal; 2017-02-10)
PROC: 3E03329 Introduction of Other Anti-infective into Peripheral Vein, Percutaneous Approach (ICD-10-PCS; 2017-02-10)
PROC: 3E033GC Introduction of Other Therapeutic Substance into Peripheral Vein, Percutaneous Approach (ICD-10-PCS; 2017-02-10)
DX: N39.0 Urinary tract infection, site not specified (principal); E87.6 Hypokalemia; F10.220 Alcohol dependence with intoxication, uncomplicated; Y90.6 Blood alcohol level of 120-199 mg/100 ml; Z86.73 Personal history of transient ischemic attack (TIA), and cerebral infarction without residual deficits
CPT/HCPCS: 36415; 71010-TC; 80048; 80053; 80307; 81003; 81015; 84703; 85025; 99283-25

== ENCOUNTER 2017-02-13 17:36 | Inpatient (IN) | payer OTHER ==
--- NOTE | 2017-02-13 18:07 | HP ---
CIWA Score - CIWA Score Nausea/Vomitin Muscle Tremors: 3 Anxiety: 3 Agitation: 3 Paroxysmal Sweats: 1-Minimal Palms Moist Orientation: 0-Oriented Tacttile Disturbances: 2-Mild Itch/Numbness/Burn Auditory Disturbances: 2-Mild Harshness/Frighten Visual Disturbances: 2-Mild Sensitivity Headache: 2-Mild CIWA-Ar Total Score: 21 Admission ROS BHS - HPI Chief Complaint: i amhere to stop drinking alcohol,cocaine and marijuana Allergies/Adverse Reactions: Allergies Allergy/AdvReac Type Severity Reaction Status Date / Time No Known Allergies Allergy Verified 02/14/17 07:37 History of Present Illness: this 46 years old female with alcohol,cocaine and marijuana dependence,seeking help for detox,last treatment [facility] 01/10/17 to 01/14/17 multiple admissions in the past hypertension uti depression longest period of sobriety 13 years seen in [facility] er on 02/10/17 for uti Exam Limitations: No Limitations - Ebola screening Have you traveled outside of the country in the last 21 days: No Have you had contact with anyone from an Ebola affected area: No Do you have a fever: No - Review of Systems Constitutional: Loss of Appetite, Malaise, Night Sweats, Changes in sleep, Weakness, Unintentional Wgt. Loss EENT: reports: Nose Congestion Respiratory: reports: No Symptoms reported Cardiac: reports: Palpitations GI: reports: Diarrhea, Nausea, Vomiting, Abdominal cramping : reports: No Symptoms Reported Musculoskeletal: reports: Back Pain, Muscle Pain Integumentary: reports: Dryness Neuro: reports: Headache, Tremors Endocrine: reports: No Symptoms Reported Hematology: reports: No Symptoms Reported Psychiatric: reports: Anxious, Depressed Patient History - Patient Medical History Hx Anemia: Yes Hx Asthma: No Hx Chronic Obstructive Pulmonary Disease (COPD): No Hx Cancer: No Hx Cardiac Disorders: Yes (heart murmur) Hx Congestive Heart Failure: No Hx Hypertension: No Hx Hypercholesterolemia: No Hx Pacemaker: No HX Cerebrovascular Accident: Yes (2002) Hx Seizures: No Hx Dementia: No Hx Diabetes: No Hx Gastrointestinal Disorders: No Hx Liver Disease: Yes (FATTY LIVER) Hx Genitourinary Disorders: No Hx Sexually Transmitted Disorders: No Hx Renal Disease (ESRD): No Hx Thyroid Disease: No Hx Human Immunodeficiency Virus (HIV): No (negative) Hx Hepatitis C: No (negative) Hx Depression: Yes (anxiety) Hx Suicide Attempt: No Hx Bipolar Disorder: No Hx Schizophrenia: No Other Medical History: no suicidal,no homicidal - Patient Surgical History Past Surgical History: Yes Hx Neurologic Surgery: No Hx Cataract Extraction: No Hx Cardiac Surgery: No Hx Lung Surgery: No Hx Breast Surgery: No Hx Breast Biopsy: No Hx Abdominal Surgery: Yes (hernia repair) Hx Appendectomy: No Hx Cholecystectomy: No Hx Genitourinary Surgery: No Hx Section: No Hx Orthopedic Surgery: Yes (right knee, 07/29/2015) Hx Hysterectomy: No Other Surgical History: R inguinal hernia repair Anesthesia Reaction: No - PPD History Previous Implant?: Yes Implanted On Prior [facility] Admission?: Yes Date: 09/30/16 Results: 0 mm PPD to be Administered?: No - Reproductive History Last Menstrual Period: 06/27/15 Patient : No - Smoking Cessation Smoking history: Never smoked Have you smoked in the past 12 months: No Aproximately how many cigarettes per day: 0 Cigars Per Day: 0 Hx Chewing Tobacco Use: No - Substance & Tx. History Hx Alcohol Use: Yes Hx Substance Use: Yes Substance Use Type: Alcohol, Cocaine, Marijuana Hx Substance Use Treatment: Yes ([facility] 01/10/17 to 01/14/17) - Substances Abused Cocaine Route: Oral Frequency: Daily Age of first use: 18 Date of Last Use: 02/13/17 Alcohol Route: Oral Frequency: Daily Amount used: 6 BOTTLES Age of first use: 18 Date of Last Use: 02/13/17 Family Disease History - Family Disease History Family Disease History: Diabetes: Mother (htn .asthma ), Heart Disease: Mother, Other: Father (), Mother Admission Physical Exam [facility] Physical General Appearance: Yes: Moderate Distress, Tremorous, Irritable, Anxious HEENTM: Yes: Normal ENT Inspection, JOSE, Pharynx Normal Respiratory: Yes: Lungs Clear, Normal Breath Sounds, No Respiratory Distress Neck: Yes: No masses,lesions,Nodules, Supple, Trachea in good position Breast: Yes: Breast Exam Deferred Cardiology: Yes: Within Normal Limits, Regular Rhythm, Regular Rate, S1, S2 Abdominal: Yes: Normal Bowel Sounds, Non Tender, Flat, Soft Genitourinary: Yes: Within Normal Limits Back: Yes: Muscle Spasm Musculoskeletal: Yes: Back pain, Muscle Pain Extremities: Yes: Tremors Neurological: Yes: software administrator II-XII NML intact, Fully Oriented, Alert, Motor Strength 5/5 Integumentary: Yes: Dry Lymphatic: Yes: Within Normal Limits - Diagnostic (1) UTI (urinary tract infection) Current Visit: No Status: Acute Qualifiers: Urinary tract infection type: site unspecified Hematuria presence: without hematuria Qualified Code(s): N39.0 - Urinary tract infection, site not specified (2) Alcohol dependence with uncomplicated withdrawal Current Visit: No Status: Acute (3) Chronic knee pain Current Visit: No Status: Chronic Qualifiers: Laterality: right Qualified Code(s): M25.561 - Pain in right knee; G89.29 - Other chronic pain (4) Hypertension Current Visit: No Status: Chronic (5) Weight loss Current Visit: No Status: Chronic (6) Alcohol dependence with intoxication Current Visit: Yes Status: Acute (7) Old cerebrovascular accident (CVA) without late effect Current Visit: Yes Status: Acute (8) Anxiety and depression Current Visit: Yes Status: Acute Cleared for Admission S - Detox or Rehab [facility] Level of Care: Medically Managed Detox Regimen/Protocol: Librium S Breath Alcohol Content Breath Alcohol Content: 0.400
[2017-02-13] MEDS ORDERED: MAGNESIUM HYDROX 2400MG/30ML ORAL SUSPENSION 30 ML CUP PO PRN (18:26)
[2017-02-13] MEDS ORDERED: MAG HYDROX/AL HYDROX/SIMETH 30 ML UNIT-DOSE CUP PO PRN (18:26)
[2017-02-13] MEDS ORDERED: P-EPHED 60MG/TRIPROLIDI 2.5MG TABLET PO PRN (18:26)
[2017-02-13] MEDS ORDERED: LOPERAMIDE HCL 2 MG CAPSULE PO PRN (18:26)
[2017-02-13] MEDS ORDERED: guaiFENesin/D-METHORPHAN HB 10 ML UNIT-DOSE CUPS PO PRN (18:26)
[2017-02-13] MEDS ORDERED: MAGNESIUM CITRATE 300 ML BOTTLE PO PRN (18:26)
[2017-02-13] MEDS ORDERED: chlordiazePOXIDE HCL 25 MG CAPSULE PO PRN (18:26)
[2017-02-13] MEDS ORDERED: MENTHOL/PHENOL 1 EACH UD MM PRN (18:26)
[2017-02-13] MEDS ORDERED: IBUPROFEN 400 MG TABLET (FP) PO PRN (18:26)
[2017-02-13] MEDS ORDERED: ACETAMINOPHEN 325 MG TABLET (FP) PO PRN (18:26)
[2017-02-13] MEDS: chlordiazePOXIDE HCL 25 MG CAPSULE PO SCH (22:18)
[2017-02-13] MEDS: diphenhydrAMINE HCL 50 MG CAPSULE PO PRN (22:18)
[2017-02-13] MEDS: THIAMINE HCL 100 MG TABLET (FP) PO SCH (22:18)
[2017-02-13 23:23] LABS: URINE APPEARANCE CLOUDY; URINE BILIRUBIN NEGATIVE (NEGATIVE); URINE BLOOD NEGATIVE (NEGATIVE); URINE COLOR YELLOW; URINE GLUCOSE (UA) NEGATIVE (NEGATIVE); URINE KETONE NEGATIVE (NEGATIVE); URINE LEUK ESTERASE TRACE (NEGATIVE); URINE NITRITE NEGATIVE (NEGATIVE); URINE PROTEIN 1+ (NEGATIVE); URINE UROBILINOGEN NEGATIVE mg/dL (0.2-1.0)
[2017-02-13 23:26] LABS: GRANULAR CASTS 13 /lpf; URINE BACTERIA FEW /hpf (NONE SEEN); URINE HYALINE CAST 15 /lpf; URINE MUCUS RARE; URINE RBC 5 /hpf (0-3); URINE WBC 10 /hpf (3-5)
[2017-02-14] MEDS: LEVOFLOXACIN 500 MG TABLET (FP) PO SCH (05:18)
[2017-02-14] MEDS: chlordiazePOXIDE HCL 25 MG CAPSULE PO SCH ×4 (05:18→22:05)
[2017-02-14 10:04] LABS: MCH 34.2 pg (25.7-33.7); MCHC 33.5 g/dl (32.0-36.0); MEAN CELL VOLUME 102.2 fl (80-96); MEAN PLT VOLUME 7.9 fl (7.5-11.1); PLATELET COUNT 361 K/MM3 (134-434); RDW 14.1 % (11.6-15.6)
[2017-02-14] MEDS: PRENATAL VITAMINS W/ FOLIC ACID TABLET (FP) PO SCH (10:18)
[2017-02-14 10:19] LABS: ALK PHOS 103 U/L (45-117); ANION GAP 8 (8-16); BILIRUBIN,TOTAL 0.1 mg/dL (0.2-1.0); CO2 25 mmol/L (21-32); CREATININE 0.6 mg/dL (0.55-1.02); GLUCOSE,RANDOM 68 mg/dL (74-106); SGOT/AST 51 U/L (15-37); SGPT/ALT 25 U/L (12-78); TOT PROT 8.3 g/dl (6.4-8.2)
[2017-02-14] MEDS ORDERED: PNEUMOC 13-VAL CONJ-DIP CRM/PF 0.5 ML DISP.SYRIN IM ONE (12:00)
--- NOTE | 2017-02-14 12:00 | PN ---
S CIWA - CIWA Score Nausea/Vomitin Muscle Tremors: 3 Anxiety: 3 Agitation: 3 Paroxysmal Sweats: 2 Orientation: 0-Oriented Tacttile Disturbances: 1-Very Mild Itch/Numbness Auditory Disturbances: 1-Very Mild Visual Disturbances: 1-Very Mild Sensitivity Headache: 2-Mild CIWA-Ar Total Score: 19 S Progress Note (SOAP) Subjective: ALERT,IRRITABLE,ANXIOUS,INTERRUPTED SLEEP,TREMOR,PAIN I THE BODY Objective: 02/14/17 11:58 Vital Signs Temperature 97.9 F 02/14/17 06:44 Pulse Rate 86 02/14/17 10:25 Respiratory Rate 16 02/14/17 10:25 Blood Pressure 130/92 02/14/17 10:25 O2 Sat by Pulse Oximetry (%) EKG NSR,PROLONG QT NO CHEST PAIN,NO SOB,NO DIZZINESS Laboratory Last Values WBC 4.0 K/mm3 (4.0-10.0) D 02/14/17 06:30 RBC 3.16 M/mm3 (3.60-5.2) L 02/14/17 06:30 Hgb 10.8 GM/dL (10.7-15.3) 02/14/17 06:30 Hct 32.2 % (32.4-45.2) L 02/14/17 06:30 MCV 102.2 fl (80-96) H 02/14/17 06:30 MCH 34.2 pg (25.7-33.7) H 02/14/17 06:30 MCHC 33.5 g/dl (32.0-36.0) 02/14/17 06:30 RDW 14.1 % (11.6-15.6) 02/14/17 06:30 Plt Count 361 K/MM3 (134-434) D 02/14/17 06:30 MPV 7.9 fl (7.5-11.1) D 02/14/17 06:30 Sodium 145 mmol/L (136-145) 02/14/17 06:30 Potassium 4.5 mmol/L (3.5-5.1) 02/14/17 06:30 Chloride 112 mmol/L (98-107) H 02/14/17 06:30 Carbon Dioxide 25 mmol/L (21-32) 02/14/17 06:30 Anion Gap 8 (8-16) 02/14/17 06:30 BUN 7 mg/dL (7-18) 02/14/17 06:30 Creatinine 0.6 mg/dL (0.55-1.02) 02/14/17 06:30 Creat Clearance w eGFR > 60 (>60) 02/14/17 06:30 Random Glucose 68 mg/dL (74-106) L D 02/14/17 06:30 Calcium 9.0 mg/dL (8.5-10.1) 02/14/17 06:30 Total Bilirubin 0.1 mg/dL (0.2-1.0) L D 02/14/17 06:30 AST 51 U/L (15-37) H D 02/14/17 06:30 ALT 25 U/L (12-78) D 02/14/17 06:30 Alkaline Phosphatase 103 U/L (45-117) D 02/14/17 06:30 Total Protein 8.3 g/dl (6.4-8.2) H 02/14/17 06:30 Albumin 3.0 g/dl (3.4-5.0) L 02/14/17 06:30 Urine Color Yellow 02/13/17 22:00 Urine Appearance Cloudy 02/13/17 22:00 Urine pH 5.0 (5.0-8.0) 02/13/17 22:00 Ur Specific [place] 1.015 (1.005-1.025) 02/13/17 22:00 Urine Protein 1+ (NEGATIVE) H 02/13/17 22:00 Urine Glucose (UA) Negative (NEGATIVE) 02/13/17 22:00 Urine Ketones Negative (NEGATIVE) 02/13/17 22:00 Urine Blood Negative (NEGATIVE) 02/13/17 22:00 Urine Nitrite Negative (NEGATIVE) 02/13/17 22:00 Urine Bilirubin Negative (NEGATIVE) 02/13/17 22:00 Urine Urobilinogen Negative mg/dL (0.2-1.0) 02/13/17 22:00 Ur Leukocyte Esterase Trace (NEGATIVE) 02/13/17 22:00 Urine RBC 5 /hpf (0-3) 02/13/17 22:00 Urine WBC 10 /hpf (3-5) 02/13/17 22:00 Ur Epithelial Cells Moderate /hpf (FEW) 02/13/17 22:00 Urine Bacteria Few /hpf (NONE SEEN) 02/13/17 22:00 Hyaline Casts 15 /lpf 02/13/17 22:00 Granular Casts 13 /lpf 02/13/17 22:00 Urine Mucus Rare 02/13/17 22:00 RPR Titer Nonreactive (NONREACTIVE) 02/14/17 06:30 Assessment: 02/14/17 11:59 WITHDRAWAL SYMPTOM Plan: CONTINUE DETOX
[2017-02-14] MEDS ORDERED: PNEUMOCOCCAL 23 VACCINE 0.5 ML VIAL IM ONE (12:15)
--- NOTE | 2017-02-14 16:38 | EKG ---
Test Reason : Blood Pressure : / mmHG Vent. Rate : 085 BPM Atrial Rate : 085 BPM P-R Int : 176 ms QRS Dur : 092 ms QT Int : 404 ms P-R-T Axes : 080 090 071 degrees QTc Int : 480 ms NORMAL SINUS RHYTHM PROLONGED QT ABNORMAL ECG WHEN COMPARED WITH ECG OF 10-JAN-2017 18:42, NO SIGNIFICANT CHANGE WAS FOUND Confirmed by MICHAEL MEDEL MD ([id number]) on 02/14/2017 4:38:05 PM Referred By: Confirmed By:MICHAEL MEDEL MD
[2017-02-14] MEDS: diphenhydrAMINE HCL 50 MG CAPSULE PO PRN (22:04)
[2017-02-14] MEDS: THIAMINE HCL 100 MG TABLET (FP) PO SCH (22:05)
[2017-02-15] MEDS: chlordiazePOXIDE HCL 25 MG CAPSULE PO SCH ×3 (06:28→17:49)
[2017-02-15] MEDS: LEVOFLOXACIN 500 MG TABLET (FP) PO SCH (06:29)
[2017-02-15] MEDS: PRENATAL VITAMINS W/ FOLIC ACID TABLET (FP) PO SCH (10:36)
--- NOTE | 2017-02-15 11:47 | PN ---
[facility] CIWA - CIWA Score Nausea/Vomitin Muscle Tremors: 2 Anxiety: 2 Agitation: 2 Paroxysmal Sweats: 3 Orientation: 0-Oriented Tacttile Disturbances: 2-Mild Itch/Numbness/Burn Auditory Disturbances: 0-None Visual Disturbances: 0-None Headache: 0-None Present CIWA-Ar Total Score: 14 [facility] Progress Note (SOAP) Subjective: interrrupted sleep, uti on levaguin Objective: 02/15/17 11:46 Vital Signs Temperature 97.9 F 02/15/17 10:00 Pulse Rate 90 02/15/17 10:00 Respiratory Rate 16 02/15/17 10:00 Blood Pressure 135/99 02/15/17 10:00 O2 Sat by Pulse Oximetry (%) Laboratory Tests 02/13/17 02/14/17 02/14/17 22:00 06:30 06:30 WBC 4.0 D RBC 3.16 L Hgb 10.8 Hct 32.2 L MCV 102.2 H MCH 34.2 H MCHC 33.5 RDW 14.1 Plt Count 361 D MPV 7.9 D Sodium 145 Potassium 4.5 Chloride 112 H Carbon Dioxide 25 Anion Gap 8 BUN 7 Creatinine 0.6 Creat Clearance w eGFR > 60 Random Glucose 68 L D Calcium 9.0 Total Bilirubin 0.1 L D AST 51 H D ALT 25 D Alkaline Phosphatase 103 D Total Protein 8.3 H Albumin 3.0 L Urine Color Yellow Urine Appearance Cloudy Urine pH 5.0 Ur Specific [place] 1.015 Urine Protein 1+ H Urine Glucose (UA) Negative Urine Ketones Negative Urine Blood Negative Urine Nitrite Negative Urine Bilirubin Negative Urine Urobilinogen Negative Ur Leukocyte Esterase Trace Urine RBC 5 Urine WBC 10 Ur Epithelial Cells Moderate Urine Bacteria Few Hyaline Casts 15 Granular Casts 13 Urine Mucus Rare RPR Titer 02/14/17 06:30 WBC RBC Hgb Hct MCV MCH MCHC RDW Plt Count MPV Sodium Potassium Chloride Carbon Dioxide Anion Gap BUN Creatinine Creat Clearance w eGFR Random Glucose Calcium Total Bilirubin AST ALT Alkaline Phosphatase Total Protein Albumin Urine Color Urine Appearance Urine pH Ur Specific [place] Urine Protein Urine Glucose (UA) Urine Ketones Urine Blood Urine Nitrite Urine Bilirubin Urine Urobilinogen Ur Leukocyte Esterase Urine RBC Urine WBC Ur Epithelial Cells Urine Bacteria Hyaline Casts Granular Casts Urine Mucus RPR Titer Nonreactive pt aox3 lying in bed Assessment: 02/15/17 11:47 withdrawal sx's h/o uti Plan: ont. detox increase fluids cont levaquin
--- NOTE | 2017-02-15 13:37 | CONSULT ---
[facility] Psychiatric Consult - Data Date of interview: 02/15/17 Admission source: [facility] Identifying data: One of the multiple admissions to [facility] for this 46 y/o AA female seeking detox treatment on for alcohol,cocaine and marijuana dependence.Patient is ,a mother of five,homeless,unemployed and supported on food stamps. Substance Abuse History: Patient endorses an extensive history of substance abuse (alcohol since age 18 + cocaine and cannabis since age 25).Consumes 6 x 22 oz of beer on a daily basis. Medical History: Urinary tract infection (currently under treatment),anemia, liver disease,cerebrovascular accident (CVA) in 2001,heart murmur and a history of right inguinal herniorraphy.Noted recent history or right knee replacement ( 2015). Psychiatric History: Patient denies history of psychiatric hospitalizations.No OPD care.Ms Anthony denies history of suicide attempts. Physical/Sexual Abuse/Trauma History: Patient denies. Mental Status Exam - Mental Status Exam Alert and Oriented to: Time, Place, Person Cognitive Function: Good Patient Appearance: Disheveled Mood: Withdrawn Affect: Constricted Patient Behavior: Sedated (mild sedation), Fatigued Speech Pattern: Clear Voice Loudness: Normal Thought Process: Goal Oriented Thought Disorder: Not Present Hallucinations: Denies Suicidal Ideation: Denies Homicidal Ideation: Denies Insight/Judgement: Poor Sleep: Poorly, Difficulty falling asleep Appetite: Good Muscle strength/Tone: Normal Gait/Station: Normal Psychiatric Findings - Problem List ([place] 1, 2,3) (1) Alcohol dependence with uncomplicated withdrawal Current Visit: Yes Status: Acute (2) Cannabis dependence Current Visit: Yes Status: Acute (3) Cocaine dependence Current Visit: Yes Status: Acute (4) Drug-induced mood disorder Current Visit: Yes Status: Acute (5) Old cerebrovascular accident (CVA) without late effect Current Visit: Yes Status: Chronic (6) UTI (urinary tract infection) Current Visit: Yes Status: Acute Qualifiers: Urinary tract infection type: site unspecified Hematuria presence: without hematuria Qualified Code(s): N39.0 - Urinary tract infection, site not specified (7) Chronic knee pain Current Visit: Yes Status: Chronic Qualifiers: Laterality: right Qualified Code(s): M25.561 - Pain in right knee; G89.29 - Other chronic pain (8) Hypertension Current Visit: Yes Status: Chronic (9) Insomnia Current Visit: Yes Status: Acute - Initial Treatment Plan Initial Treatment Plan: Psychoeducation.Detoxification.Ambien 10 mg po hs.Patient is made aware of potential for parasomnias.She agrees with this careplan.Observation.
[2017-02-15] MEDS: chlordiazePOXIDE 5 MG CAPSULE PO SCH (22:15)
[2017-02-15] MEDS: THIAMINE HCL 100 MG TABLET (FP) PO SCH (22:15)
[2017-02-15] MEDS: diphenhydrAMINE HCL 50 MG CAPSULE PO PRN (22:15)
[2017-02-16] MEDS: LEVOFLOXACIN 500 MG TABLET (FP) PO SCH (05:42)
[2017-02-16] MEDS: chlordiazePOXIDE 5 MG CAPSULE PO SCH ×3 (05:42→18:33)
[2017-02-16] MEDS: PRENATAL VITAMINS W/ FOLIC ACID TABLET (FP) PO SCH (10:36)
--- NOTE | 2017-02-16 14:52 | PN ---
S Progress Note (SOAP) Subjective: alert,irritable,anxious,interrupted sleep Objective: 02/16/17 14:51 Vital Signs Temperature 98.1 F 02/16/17 14:30 Pulse Rate 82 02/16/17 14:30 Respiratory Rate 16 02/16/17 14:30 Blood Pressure 127/92 02/16/17 14:30 O2 Sat by Pulse Oximetry (%) Assessment: 02/16/17 14:51 withdrawal symptom Plan: continue detox,discharge in am
[2017-02-16] MEDS ORDERED: ZOLPIDEM TARTRATE 10 MG TABLET (PARK CARE ONLY) PO PRN (16:27)
[2017-02-16] MEDS ORDERED: chlordiazePOXIDE 5 MG CAPSULE ONE (21:45)
[2017-02-16] MEDS: THIAMINE HCL 100 MG TABLET (FP) PO SCH (22:18)
[2017-02-16] MEDS: chlordiazePOXIDE HCL 10 MG CAPSULE PO SCH (22:19)
[2017-02-17] MEDS ORDERED: chlordiazePOXIDE 5 MG CAPSULE ONE (04:32)
[2017-02-17] MEDS: LEVOFLOXACIN 500 MG TABLET (FP) PO SCH (05:44)
[2017-02-17] MEDS: chlordiazePOXIDE HCL 10 MG CAPSULE PO SCH (05:44)
[2017-02-17 06:54] VITALS: BP 136/82; PULSE 64; TEMP 97.9
--- NOTE | 2017-02-17 08:49 | DS ---
[facility] Detox Discharge Summary Admission Date: 02/13/17 Discharge Date: 02/17/17 - History Present History: Alcohol Dependence, Cannabis Dependence, Cocaine Dependence, Sedative Dependence Additional Comments: FOLLOW UP WITH AFTER CARE PROGRAM ARRANGEMENT AND CLINIC Pertinent Past History: UTI HYPERTENSION WEIGHT LOSS OLD CVA RIGHT KNEE INJURY OLD - Physical Exam Results Vital Signs: Vital Signs Temperature 97.9 F 02/17/17 06:53 Pulse Rate 64 02/17/17 06:53 Respiratory Rate 18 02/17/17 06:53 Blood Pressure 136/82 02/17/17 06:53 O2 Sat by Pulse Oximetry (%) Pertinent Admission Physical Exam Findings: WITHDRAWAL SYMPTOM - Treatment Hospital Course: Detox Protocol Followed, Detoxed Safely, Responded well, Discharged Condition Good Patient has Accepted a Rehab Referral to: DECLINED - Medication Discharge Medications: Ambulatory Orders Levofloxacin [Levaquin -] 500 mg PO DAILY #10 tablet 02/11/17 - Diagnosis (1) UTI (urinary tract infection) Current Visit: Yes Status: Acute Qualifiers: Urinary tract infection type: site unspecified Hematuria presence: without hematuria Qualified Code(s): N39.0 - Urinary tract infection, site not specified (2) Alcohol dependence with uncomplicated withdrawal Current Visit: Yes Status: Acute (3) Chronic knee pain Current Visit: Yes Status: Chronic Qualifiers: Laterality: right Qualified Code(s): M25.561 - Pain in right knee; G89.29 - Other chronic pain (4) Hypertension Current Visit: Yes Status: Chronic (5) Weight loss Current Visit: No Status: Chronic (6) Alcohol dependence with intoxication Current Visit: Yes Status: Acute (7) Old cerebrovascular accident (CVA) without late effect Current Visit: Yes Status: Chronic (8) Anxiety and depression Current Visit: Yes Status: Acute (9) Cannabis dependence Current Visit: Yes Status: Acute (10) Cocaine dependence Current Visit: Yes Status: Acute - AMA Did Patient Leave Against Medical Advice: No
== END 2017-02-17 09:23 | disposition home or self-care (01) | DRG 773 ==
LOC: YASAS 17:36 → Y6N 18:30
PROVIDERS: ADMIT Internal Medicine; ATTEND Internal Medicine
PROC: HZ2ZZZZ Detoxification Services for Substance Abuse Treatment (ICD-10-PCS; principal; 2017-02-17)
DX: F11.23 Opioid dependence with withdrawal (principal); F14.20 Cocaine dependence, uncomplicated; F12.20 Cannabis dependence, uncomplicated; F41.8 Other specified anxiety disorders; F19.24 Other psychoactive substance dependence with psychoactive substance-induced mood disorder; G47.00 Insomnia, unspecified; M25.561 Pain in right knee; G89.29 Other chronic pain; I10 Essential (primary) hypertension; Z86.69 Personal history of other diseases of the nervous system and sense organs
CPT/HCPCS: 36415; 80053; 81003; 81015; 85027; 86593; 90732; 93005; 93010; G0009

== ENCOUNTER 2017-03-16 14:56 | Emergency (ER) | payer OTHER ==
[2017-03-16 15:13] VITALS: BP 118/83; PULSE 100; TEMP 98.1; BMI 18.6
[2017-03-16] MEDS ORDERED: ACETAMINOPHEN 325 MG TABLET (FP) PO ONE (16:11)
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
[2017-03-16 16:35] LABS: URINE MARIJUANA THC POSITIVE ng/ml (CUTOFF=50)
[2017-03-16 17:14] LABS: ANION GAP 9 (8-16); CALCIUM 8.4 mg/dL (8.5-10.1); CO2 26 mmol/L (21-32); CREATININE 0.8 mg/dL (0.55-1.02); GLUCOSE,RANDOM 90 mg/dL (74-106)
[2017-03-16 17:20] LABS: MCH 34.7 pg (25.7-33.7); MCHC 34.1 g/dl (32.0-36.0); MEAN CELL VOLUME 101.6 fl (80-96); MEAN PLT VOLUME 8.1 fl (7.5-11.1); PLATELET COUNT 264 K/MM3 (134-434); WHITE BLOOD COUNT 4.7 K/mm3 (4.0-10.0)
[2017-03-16] MEDS ORDERED: KETOROLAC TROMETHAMINE 30 MG/1 ML VIAL IM ONE (21:35)
[2017-03-16] MEDS ORDERED: KETOROLAC TROMETHAMINE 30 MG/1 ML VIAL ONE (22:08)
== END 2017-03-17 02:55 | disposition home or self-care (01) ==
LOC: JER 14:56
PROC: 3E0233Z Introduction of Anti-inflammatory into Muscle, Percutaneous Approach (ICD-10-PCS; principal; 2017-03-16)
DX: M25.561 Pain in right knee (principal); W22.8XXA Striking against or struck by other objects, initial encounter; Y93.89 Activity, other specified; Y92.89 Other specified places as the place of occurrence of the external cause; F10.120 Alcohol abuse with intoxication, uncomplicated; F14.10 Cocaine abuse, uncomplicated; F12.10 Cannabis abuse, uncomplicated; Y90.8 Blood alcohol level of 240 mg/100 ml or more
CPT/HCPCS: 36415; 73562-TC-RT; 80048; 80307; 84702; 84703; 85027; 96372; 99283-25

== ENCOUNTER 2017-03-26 15:38 | Inpatient (IN) | payer OTHER ==
[2017-03-26 17:12] VITALS: BMI 24.7
[2017-03-26] MEDS ORDERED: P-EPHED 60MG/TRIPROLIDI 2.5MG TABLET PO PRN (17:36)
[2017-03-26] MEDS ORDERED: guaiFENesin/D-METHORPHAN HB 10 ML UNIT-DOSE CUPS PO PRN (17:36)
[2017-03-26] MEDS ORDERED: chlordiazePOXIDE HCL 25 MG CAPSULE PO PRN (17:36)
[2017-03-26] MEDS ORDERED: LOPERAMIDE HCL 2 MG CAPSULE PO PRN (17:36)
[2017-03-26] MEDS ORDERED: MAGNESIUM CITRATE 300 ML BOTTLE PO PRN (17:36)
[2017-03-26] MEDS ORDERED: hydrOXYzine PAMOATE 50 MG CAPSULE (FP) PO PRN (17:36)
[2017-03-26] MEDS ORDERED: MENTHOL/PHENOL 1 EACH UD MM PRN (17:36)
[2017-03-26] MEDS ORDERED: ACETAMINOPHEN 325 MG TABLET (FP) PO PRN (17:36)
[2017-03-26] MEDS ORDERED: MAGNESIUM HYDROX 2400MG/30ML ORAL SUSPENSION 30 ML CUP PO PRN (17:36)
[2017-03-26] MEDS ORDERED: chlordiazePOXIDE HCL 25 MG CAPSULE PO ONE (17:36)
[2017-03-26] MEDS ORDERED: MAG HYDROX/AL HYDROX/SIMETH 30 ML UNIT-DOSE CUP PO PRN (17:36)
[2017-03-26] MEDS ORDERED: IBUPROFEN 400 MG TABLET (FP) PO PRN (17:36)
--- NOTE | 2017-03-26 17:36 | HP ---
CIWA Score - CIWA Score Nausea/Vomitin Muscle Tremors: 4-Moderate,w/Arms Extend Anxiety: 4-Mod. Anxious/Guarded Agitation: 4-Moderately Restless Paroxysmal Sweats: 3 Orientation: 0-Oriented Tacttile Disturbances: 0-None Auditory Disturbances: 0-None Visual Disturbances: 0-None Headache: 3-Moderate CIWA-Ar Total Score: 21 Admission ROS BHS - HPI Chief Complaint: alcohol detoxification Allergies/Adverse Reactions: Allergies Allergy/AdvReac Type Severity Reaction Status Date / Time coconut oil Allergy Severe Verified 03/26/17 17:34 No Known Drug Allergies Allergy Severe Verified 03/26/17 17:34 History of Present Illness: 46 yo f with h/o chronic alcoholism and cannabis dependence, multiple inpatient detoxifications, came to admitting for detox and found to have swollen knee s/p fx. Went to hospital where it was drained of fluid and is now being admitted for detoxification from alcohol, last drink today last smoked marijuaana today. no h/o seizures or dts reports RAIMUNDO when she does not drink. PMHX r knee replacement s/p fx and recent fluid accumulation. Exam Limitations: No Limitations - Ebola screening Have you traveled outside of the country in the last 21 days: No Have you had contact with anyone from an Ebola affected area: No Have you been sick,other than usual withdrawal symptoms: No - Review of Systems Constitutional: Diaphoresis, Unintentional Wgt. Loss EENT: reports: Blurred Vision (needs glasses), Hearing Loss (left ear), Nose Congestion, Sinus Pressure, Other (sinus infection/allergy) Respiratory: reports: No Symptoms reported Cardiac: reports: No Symptoms Reported GI: reports: Diarrhea, Nausea, Poor Appetite, Poor Fluid Intake, Indigestion, Abdominal cramping : reports: No Symptoms Reported Musculoskeletal: reports: Back Pain, Joint Pain, Joint Swelling, Joint Stiffness (r knee replacement, fx) Neuro: reports: Headache, Numbness, Tingling, Tremors, Weakness Endocrine: reports: No Symptoms Reported Hematology: reports: No Symptoms Reported Psychiatric: reports: Judgement Intact, Mood/Affect Appropiate, Agitated, Anxious, Depressed Other Systems: Reviewed and Negative Patient History - Patient Medical History Hx Anemia: Yes Hx Asthma: No Hx Chronic Obstructive Pulmonary Disease (COPD): No Hx Cancer: No Hx Cardiac Disorders: Yes (heart murmur) Hx Congestive Heart Failure: No Hx Hypertension: No Hx Hypercholesterolemia: No Hx Pacemaker: No HX Cerebrovascular Accident: Yes (2002) Hx Seizures: No Hx Dementia: No Hx Diabetes: No Hx Gastrointestinal Disorders: No Hx Liver Disease: Yes (FATTY LIVER) Hx Genitourinary Disorders: No Hx Sexually Transmitted Disorders: No Hx Renal Disease (ESRD): No Hx Thyroid Disease: No Hx Human Immunodeficiency Virus (HIV): No (negative) Hx Hepatitis C: No (negative) Hx Depression: Yes (anxiety) Hx Suicide Attempt: No Hx Bipolar Disorder: No Hx Schizophrenia: No - Patient Surgical History Past Surgical History: Yes Hx Neurologic Surgery: No Hx Cataract Extraction: No Hx Cardiac Surgery: No Hx Lung Surgery: No Hx Breast Surgery: No Hx Breast Biopsy: No Hx Abdominal Surgery: Yes (hernia repair) Hx Appendectomy: No Hx Cholecystectomy: No Hx Genitourinary Surgery: No Hx Section: No Hx Orthopedic Surgery: Yes (right knee, 07/29/2015) Hx Hysterectomy: No Other Surgical History: R inguinal hernia repair Anesthesia Reaction: No - PPD History Date: 09/30/16 Results: 0 mm - Reproductive History Patient is a Female of Child Bearing Age (11 -55 yrs old): Yes Last Menstrual Period: 06/27/15 Patient : No - Smoking Cessation Smoking history: Never smoked Have you smoked in the past 12 months: No Aproximately how many cigarettes per day: 0 Cigars Per Day: 0 Hx Chewing Tobacco Use: No Initiated information on smoking cessation: No - Substance & Tx. History Hx Alcohol Use: Yes Hx Substance Use: Yes Substance Use Type: Alcohol, Marijuana Hx Substance Use Treatment: Yes (inpatient detoxification) Family Disease History - Family Disease History Family Disease History: Diabetes: Mother (htn .asthma ), Heart Disease: Mother, Other: Father (), Mother Admission Physical Exam BHS - Vital Signs Vital Signs: Vital Signs - 24 hr 03/26/17 17:10 Temperature 98.2 F Pulse Rate 97 H Respiratory 20 Rate Blood Pressure 123/85 - Physical General Appearance: Yes: Appropriately Dressed, Mild Distress, Alcohol on Breath , Cachetic, Thin, Tremorous, Irritable, Sweating, Anxious HEENTM: Yes: EOMI, Hearing grossly Normal, Normal ENT Inspection, JOSE, Pharynx Normal, Nasal Congestion, Rhinorrhea, Muffled/Hoarse Voice Respiratory: Yes: Within Normal Limits, Chest Non-Tender, Lungs Clear, Normal Breath Sounds, No Respiratory Distress, No Accessory Muscle Use Neck: Yes: Within Normal Limits, No masses,lesions,Nodules, Supple, Trachea in good position Breast: Yes: Breast Exam Deferred Cardiology: Yes: Within Normal Limits, Regular Rhythm, Regular Rate, S1, S2 Abdominal: Yes: Within Normal Limits, Normal Bowel Sounds, Non Tender, Flat, Soft Back: Yes: Within Normal Limits, Normal Inspection Musculoskeletal: Yes: Joint Stiffness (r knee s/p fx and removal of fluids) Extremities: Yes: Normal Capillary Refill, Tremors, Swelling (right knee , right ankle, left elbow swollenand disfigured from ptrauma. decreased ROM of all joints with pain and stiffness.), Other (right knee stiffness) Neurological: Yes: parachute crown sewer II-XII NML intact, Fully Oriented, Alert, Motor Strength 5/5, Normal Response, Depressed Affect Integumentary: Yes: Normal Color, Warm, Moist Lymphatic: Yes: Within Normal Limits - Addiitonal Findings: alcohol withdrawal sx noted - Diagnostic (1) Alcohol dependence with uncomplicated withdrawal Current Visit: No Status: Acute (2) Anxiety and depression Current Visit: No Status: Acute (3) Cannabis dependence Current Visit: No Status: Acute (4) Drug-induced mood disorder Current Visit: No Status: Acute (5) Chronic knee pain Current Visit: No Status: Chronic Qualifiers: Laterality: right Qualified Code(s): M25.561 - Pain in right knee; G89.29 - Other chronic pain (6) Weight loss Current Visit: No Status: Chronic (7) Depression Current Visit: No Status: Suspected Qualifiers: Depression Type: dysthymia Qualified Code(s): F34.1 - Dysthymic disorder Cleared for Admission [facility] - Detox or Rehab [facility] Level of Care: Medically Managed Detox Regimen/Protocol: Librium [facility] Breath Alcohol Content Breath Alcohol Content: 0.249 Urine Pregancy Test - Result Urine Test Results: Negative- NO Line Present Urine Drug Screen - Results Drug Screen Negative: No Urine Drug Screen Results: BZO-Benzodiazepines, TCA-Tricyclic Antidepress
[2017-03-26] MEDS: PANTOPRAZOLE 40 MG TABLET (FP) PO SCH (20:22)
[2017-03-26 22:15] LABS: URINE APPEARANCE SLCLOUDY; URINE BILIRUBIN NEGATIVE (NEGATIVE); URINE BLOOD NEGATIVE (NEGATIVE); URINE COLOR STRAW; URINE GLUCOSE (UA) NEGATIVE (NEGATIVE); URINE KETONE NEGATIVE (NEGATIVE); URINE LEUK ESTERASE TRACE (NEGATIVE); URINE NITRITE NEGATIVE (NEGATIVE); URINE PROTEIN NEGATIVE (NEGATIVE); URINE UROBILINOGEN NEGATIVE mg/dL (0.2-1.0)
[2017-03-26] MEDS: diphenhydrAMINE HCL 50 MG CAPSULE PO PRN (22:22)
[2017-03-26] MEDS: chlordiazePOXIDE HCL 25 MG CAPSULE PO SCH (22:22)
[2017-03-26] MEDS: THIAMINE HCL 100 MG TABLET (FP) PO SCH (22:22)
[2017-03-26 22:34] LABS: URINE BACTERIA RARE /hpf (NONE SEEN); URINE RBC 1 /hpf (0-3); URINE WBC 2 /hpf (3-5)
[2017-03-27] MEDS: chlordiazePOXIDE HCL 25 MG CAPSULE PO SCH ×4 (06:20→22:30)
[2017-03-27 10:07] LABS: MCH 33.5 pg (25.7-33.7); MEAN CELL VOLUME 101.5 fl (80-96); MEAN PLT VOLUME 8.5 fl (7.5-11.1); PLATELET COUNT 205 K/MM3 (134-434); RDW 14.8 % (11.6-15.6); WHITE BLOOD COUNT 2.5 K/mm3 (4.0-10.0)
[2017-03-27 10:34] LABS: ANION GAP 6 (8-16); CO2 31 mmol/L (21-32)
--- NOTE | 2017-03-27 10:35 | CONSULT ---
[facility] Psychiatric Consult - Data Date of interview: 03/27/17 Admission source: [facility] Identifying data: This is 46 years old female with no psychiatric hospitalization history intoxicated with: Alcohol, and Nicotin, As per computer there is a history of PCP abuse, Cannabis and Cocaine abuse as well Substance Abuse History: - Smoking Cessation. Smoking history: Never smoked. Have you smoked in the past 12 months: No. Aproximately how many cigarettes per day: 0. Cigars Per Day: 0. Hx Chewing Tobacco Use: No. Initiated information on smoking cessation: No. - Substance & Tx. History. Hx Alcohol Use: Yes. Hx Substance Use: Yes. Substance Use Type: Alcohol, Marijuana. Hx Substance Use Treatment: Yes (inpatient detoxification). As per computer there is a history of PCP abuse, Cannabis and Cocaine abuse as well Medical History: HTN, CVA History, Weight loss history, UTI history Psychiatric History: atient reportws history o0f depression and anxiety, mreports no medications taking prior to admission Physical/Sexual Abuse/Trauma History: Unclear Additional Comment: Observation. Detox [facility]Init Care Protocol Mental Status Exam - Mental Status Exam Alert and Oriented to: Person Cognitive Function: Fair Patient Appearance: Unkempt Mood: Sad Affect: Flat Patient Behavior: Sedated Speech Pattern: Delayed Voice Loudness: Mildly Soft/Quiet Thought Process: Circumstantial Thought Disorder: Being Controlled Hallucinations: Denies Suicidal Ideation: Denies Homicidal Ideation: Denies Insight/Judgement: Fair Sleep: Difficulty falling asleep Appetite: Weight loss Muscle strength/Tone: Mild Hypotonicity Gait/Station: Shuffling Additional Comments: Observation. Detox UInit Care Protocol Psychiatric Findings - Problem List ([place] 1, 2,3) (1) Alcohol dependence with intoxication Current Visit: No Status: Acute (2) Alcohol dependence with uncomplicated withdrawal Current Visit: No Status: Acute (3) Anxiety and depression Current Visit: No Status: Acute (4) Cannabis dependence Current Visit: No Status: Acute (5) Cocaine dependence Current Visit: No Status: Acute (6) Drug-induced mood disorder Current Visit: No Status: Acute (7) PCP abuse Current Visit: No Status: Acute (8) Weight loss Current Visit: No Status: Chronic - Initial Treatment Plan Initial Treatment Plan: Observation. Detox UInit Care Protocol
[2017-03-27 10:43] LABS: ALBUMIN 3.4 g/dl (3.4-5.0); ALK PHOS 105 U/L (45-117); BILIRUBIN,TOTAL 0.4 mg/dL (0.2-1.0); CALCIUM 9.4 mg/dL (8.5-10.1); CREATININE 0.7 mg/dL (0.55-1.02); GLUCOSE,RANDOM 80 mg/dL (74-106); SGOT/AST 35 U/L (15-37); SGPT/ALT 22 U/L (12-78); TOT PROT 8.1 g/dl (6.4-8.2)
[2017-03-27] MEDS: PANTOPRAZOLE 40 MG TABLET (FP) PO SCH (10:54)
[2017-03-27] MEDS: PRENATAL VITAMINS W/ FOLIC ACID TABLET (FP) PO SCH (10:54)
--- NOTE | 2017-03-27 11:54 | PN ---
S CIWA - CIWA Score Nausea/Vomitin-No Nausea/No Vomiting Muscle Tremors: 4-Moderate,w/Arms Extend Anxiety: 4-Mod. Anxious/Guarded Agitation: 4-Moderately Restless Paroxysmal Sweats: 3 Orientation: 0-Oriented Tacttile Disturbances: 0-None Auditory Disturbances: 0-None Visual Disturbances: 0-None Headache: 2-Mild CIWA-Ar Total Score: 17 BHS Progress Note (SOAP) Subjective: agitation anxiety sweats shakes interrupted sleep body aches Objective: 03/27/17 11:52 Vital Signs Temperature 98.1 F 03/27/17 10:24 Pulse Rate 89 03/27/17 10:24 Respiratory Rate 20 03/27/17 10:24 Blood Pressure 146/104 03/27/17 10:24 O2 Sat by Pulse Oximetry (%) Laboratory Tests 03/26/17 03/27/17 03/27/17 21:30 07:00 07:00 WBC 2.5 L D RBC 3.47 L Hgb 11.6 Hct 35.3 MCV 101.5 H MCH 33.5 MCHC 33.0 RDW 14.8 Plt Count 205 D MPV 8.5 Sodium 137 Potassium 3.8 Chloride 100 Carbon Dioxide 31 Anion Gap 6 L BUN 9 D Creatinine 0.7 Creat Clearance w eGFR > 60 Random Glucose 80 Calcium 9.4 Total Bilirubin 0.4 D AST 35 D ALT 22 Alkaline Phosphatase 105 Total Protein 8.1 Albumin 3.4 Urine Color Straw Urine Appearance Slcloudy Urine pH 6.0 Ur Specific [place] <= 1.005 Urine Protein Negative Urine Glucose (UA) Negative Urine Ketones Negative Urine Blood Negative Urine Nitrite Negative Urine Bilirubin Negative Urine Urobilinogen Negative Ur Leukocyte Esterase Trace Urine RBC 1 Urine WBC 2 Ur Epithelial Cells Rare Urine Bacteria Rare awake/alert ambulating no acute distress Assessment: 03/27/17 11:53 withdrawal sx Plan: continue detox increase fluids motrin 600mg prn
--- NOTE | 2017-03-27 12:44 | EKG ---
Test Reason : Blood Pressure : / mmHG Vent. Rate : 084 BPM Atrial Rate : 084 BPM P-R Int : 000 ms QRS Dur : 082 ms QT Int : 414 ms P-R-T Axes : 000 088 074 degrees QTc Int : 489 ms ACCELERATED JUNCTIONAL RHYTHM SEPTAL INFARCT , AGE UNDETERMINED ABNORMAL ECG WHEN COMPARED WITH ECG OF 13-FEB-2017 18:46, JUNCTIONAL RHYTHM HAS REPLACED SINUS RHYTHM Confirmed by LEE ANN HENDERSON, GISSEL ([id number]) on 03/27/2017 12:44:13 PM Referred By: Confirmed By:GISSEL NANCE MD
[2017-03-27] MEDS: IBUPROFEN 600 MG TABLET (FP) PO PRN ×2 (17:16→22:30)
[2017-03-27] MEDS: diphenhydrAMINE HCL 50 MG CAPSULE PO PRN (22:31)
[2017-03-27] MEDS: THIAMINE HCL 100 MG TABLET (FP) PO SCH (22:31)
[2017-03-28] MEDS: chlordiazePOXIDE HCL 25 MG CAPSULE PO SCH ×3 (05:42→16:52)
[2017-03-28] MEDS: PRENATAL VITAMINS W/ FOLIC ACID TABLET (FP) PO SCH (10:44)
[2017-03-28] MEDS: PANTOPRAZOLE 40 MG TABLET (FP) PO SCH (10:44)
--- NOTE | 2017-03-28 11:11 | PN ---
[facility] CIWA - CIWA Score Nausea/Vomitin-No Nausea/No Vomiting Muscle Tremors: 3 Anxiety: 3 Agitation: 3 Paroxysmal Sweats: 3 Orientation: 0-Oriented Tacttile Disturbances: 0-None Auditory Disturbances: 0-None Visual Disturbances: 0-None Headache: 0-None Present CIWA-Ar Total Score: 12 S Progress Note (SOAP) Subjective: body aches sweats shakes interrupted sleep Objective: 03/28/17 11:10 Vital Signs Temperature 95.9 F L 03/28/17 09:43 Pulse Rate 85 03/28/17 09:43 Respiratory Rate 18 03/28/17 09:43 Blood Pressure 136/93 03/28/17 09:43 O2 Sat by Pulse Oximetry (%) Laboratory Tests 03/26/17 03/27/17 03/27/17 21:30 07:00 07:00 WBC 2.5 L D RBC 3.47 L Hgb 11.6 Hct 35.3 MCV 101.5 H MCH 33.5 MCHC 33.0 RDW 14.8 Plt Count 205 D MPV 8.5 Sodium 137 Potassium 3.8 Chloride 100 Carbon Dioxide 31 Anion Gap 6 L BUN 9 D Creatinine 0.7 Creat Clearance w eGFR > 60 Random Glucose 80 Calcium 9.4 Total Bilirubin 0.4 D AST 35 D ALT 22 Alkaline Phosphatase 105 Total Protein 8.1 Albumin 3.4 Urine Color Straw Urine Appearance Slcloudy Urine pH 6.0 Ur Specific [place] <= 1.005 Urine Protein Negative Urine Glucose (UA) Negative Urine Ketones Negative Urine Blood Negative Urine Nitrite Negative Urine Bilirubin Negative Urine Urobilinogen Negative Ur Leukocyte Esterase Trace Urine RBC 1 Urine WBC 2 Ur Epithelial Cells Rare Urine Bacteria Rare RPR Titer 03/27/17 07:00 WBC RBC Hgb Hct MCV MCH MCHC RDW Plt Count MPV Sodium Potassium Chloride Carbon Dioxide Anion Gap BUN Creatinine Creat Clearance w eGFR Random Glucose Calcium Total Bilirubin AST ALT Alkaline Phosphatase Total Protein Albumin Urine Color Urine Appearance Urine pH Ur Specific [place] Urine Protein Urine Glucose (UA) Urine Ketones Urine Blood Urine Nitrite Urine Bilirubin Urine Urobilinogen Ur Leukocyte Esterase Urine RBC Urine WBC Ur Epithelial Cells Urine Bacteria RPR Titer Nonreactive awake/alert ambulating no acute distress Assessment: 03/28/17 11:11 withdrawal sx Plan: continue detox increase fluids motrin prn
[2017-03-28] MEDS ORDERED: chlordiazePOXIDE HCL 25 MG CAPSULE PO ONE (16:00)
[2017-03-28] MEDS ORDERED: cloNIDine HCL 0.1 MG TABLET PO ONE (16:13)
[2017-03-28] MEDS: chlordiazePOXIDE 5 MG CAPSULE PO SCH (22:25)
[2017-03-28] MEDS: cloNIDine HCL 0.1 MG TABLET PO SCH (22:25)
[2017-03-28] MEDS: diphenhydrAMINE HCL 50 MG CAPSULE PO PRN (22:25)
[2017-03-28] MEDS: THIAMINE HCL 100 MG TABLET (FP) PO SCH (22:26)
[2017-03-28] MEDS: IBUPROFEN 600 MG TABLET (FP) PO PRN (22:26)
[2017-03-29] MEDS: chlordiazePOXIDE 5 MG CAPSULE PO SCH ×3 (06:12→17:26)
[2017-03-29] MEDS: PRENATAL VITAMINS W/ FOLIC ACID TABLET (FP) PO SCH (10:44)
[2017-03-29] MEDS: cloNIDine HCL 0.1 MG TABLET PO SCH ×2 (10:44→22:41)
[2017-03-29] MEDS: PANTOPRAZOLE 40 MG TABLET (FP) PO SCH (10:44)
--- NOTE | 2017-03-29 11:39 | PN ---
S Progress Note (SOAP) Subjective: right knee pain sweats interrupted sleep Objective: 03/29/17 11:36 Vital Signs Temperature 97.1 F L 03/28/17 23:23 Pulse Rate 84 03/28/17 23:23 Respiratory Rate 18 03/29/17 03:30 Blood Pressure 136/79 03/28/17 23:23 O2 Sat by Pulse Oximetry (%) awake/alert ambulating no acute distress Assessment: 03/29/17 11:37 withdrawal sx Plan: continue detox increase fluids naproxen 500mg bid first dose now warm compress prn d/c in am
[2017-03-29] MEDS ORDERED: NAPROXEN 500 MG TABLET (FP) PO ONE (12:15)
[2017-03-29 21:24] VITALS: BP 126/90
[2017-03-29] MEDS: diphenhydrAMINE HCL 50 MG CAPSULE PO PRN (22:41)
[2017-03-29] MEDS: THIAMINE HCL 100 MG TABLET (FP) PO SCH (22:41)
[2017-03-29] MEDS: chlordiazePOXIDE HCL 10 MG CAPSULE PO SCH (22:42)
[2017-03-29] MEDS: NAPROXEN 500 MG TABLET (FP) PO SCH (22:42)
[2017-03-30] MEDS: chlordiazePOXIDE HCL 10 MG CAPSULE PO SCH (05:57)
[2017-03-30 06:35] VITALS: PULSE 63; TEMP 97.7
--- NOTE | 2017-03-30 09:32 | DS ---
[facility] Detox Discharge Summary Admission Date: 03/26/17 Discharge Date: 03/30/17 - History Present History: Alcohol Dependence, Cannabis Dependence, Cocaine Dependence Pertinent Past History: anxiety, depression, insomnia - Physical Exam Results Vital Signs: Vital Signs Temperature 97.7 F 03/30/17 06:00 Pulse Rate 63 03/30/17 06:00 Respiratory Rate 16 03/30/17 06:00 Blood Pressure 126/90 03/30/17 06:00 O2 Sat by Pulse Oximetry (%) Laboratory Tests 03/26/17 03/27/17 03/27/17 21:30 07:00 07:00 WBC 2.5 L D RBC 3.47 L Hgb 11.6 Hct 35.3 MCV 101.5 H MCH 33.5 MCHC 33.0 RDW 14.8 Plt Count 205 D MPV 8.5 Sodium 137 Potassium 3.8 Chloride 100 Carbon Dioxide 31 Anion Gap 6 L BUN 9 D Creatinine 0.7 Creat Clearance w eGFR > 60 Random Glucose 80 Calcium 9.4 Total Bilirubin 0.4 D AST 35 D ALT 22 Alkaline Phosphatase 105 Total Protein 8.1 Albumin 3.4 Urine Color Straw Urine Appearance Slcloudy Urine pH 6.0 Ur Specific [place] <= 1.005 Urine Protein Negative Urine Glucose (UA) Negative Urine Ketones Negative Urine Blood Negative Urine Nitrite Negative Urine Bilirubin Negative Urine Urobilinogen Negative Ur Leukocyte Esterase Trace Urine RBC 1 Urine WBC 2 Ur Epithelial Cells Rare Urine Bacteria Rare RPR Titer 03/27/17 07:00 WBC RBC Hgb Hct MCV MCH MCHC RDW Plt Count MPV Sodium Potassium Chloride Carbon Dioxide Anion Gap BUN Creatinine Creat Clearance w eGFR Random Glucose Calcium Total Bilirubin AST ALT Alkaline Phosphatase Total Protein Albumin Urine Color Urine Appearance Urine pH Ur Specific [place] Urine Protein Urine Glucose (UA) Urine Ketones Urine Blood Urine Nitrite Urine Bilirubin Urine Urobilinogen Ur Leukocyte Esterase Urine RBC Urine WBC Ur Epithelial Cells Urine Bacteria RPR Titer Nonreactive labs noted Pertinent Admission Physical Exam Findings: withdrawal sx - Treatment Hospital Course: Detox Protocol Followed, Detoxed Safely, Responded well, Discharged Condition Good, Rehab Referral Accepted - Medication Discharge Medications: Ambulatory Orders NK [No Known Home Medication] 03/16/17 - Diagnosis (1) Alcohol dependence with uncomplicated withdrawal Current Visit: Yes Status: Chronic (2) Cannabis dependence Current Visit: Yes Status: Inactive (3) Drug-induced mood disorder Current Visit: Yes Status: Acute (4) Chronic knee pain Current Visit: Yes Status: Chronic Qualifiers: Laterality: right Qualified Code(s): M25.561 - Pain in right knee; G89.29 - Other chronic pain (5) Weight loss Current Visit: No Status: Acute (6) Cocaine dependence Current Visit: Yes Status: Chronic Qualifiers: Substance use status: uncomplicated Qualified Code(s): F14.20 - Cocaine dependence, uncomplicated (7) Furuncle Current Visit: No Status: Inactive (8) Insomnia Current Visit: Yes Status: Acute - AMA Did Patient Leave Against Medical Advice: No
[2017-03-30] MEDS: PANTOPRAZOLE 40 MG TABLET (FP) PO SCH (09:41)
[2017-03-30] MEDS: cloNIDine HCL 0.1 MG TABLET PO SCH (09:41)
[2017-03-30] MEDS: NAPROXEN 500 MG TABLET (FP) PO SCH (09:41)
[2017-03-30] MEDS: PRENATAL VITAMINS W/ FOLIC ACID TABLET (FP) PO SCH (09:41)
== END 2017-03-30 09:53 | disposition home or self-care (01) | DRG 774 ==
LOC: YASAS 15:38 → Y6N 19:18
PROVIDERS: ADMIT Internal Medicine Addiction Medicine; ATTEND Internal Medicine Addiction Medicine
PROC: HZ2ZZZZ Detoxification Services for Substance Abuse Treatment (ICD-10-PCS; principal; 2017-03-26)
DX: F10.230 Alcohol dependence with withdrawal, uncomplicated (principal); F14.20 Cocaine dependence, uncomplicated; F12.20 Cannabis dependence, uncomplicated; F41.8 Other specified anxiety disorders; G47.00 Insomnia, unspecified; D64.9 Anemia, unspecified; M25.561 Pain in right knee; G89.29 Other chronic pain; R01.1 Cardiac murmur, unspecified; K76.0 Fatty (change of) liver, not elsewhere classified; Z87.898 Personal history of other specified conditions; Z91.018 Allergy to other foods; Z86.73 Personal history of transient ischemic attack (TIA), and cerebral infarction without residual deficits
CPT/HCPCS: 36415; 80053; 81003; 81015; 85027; 86593; 93005; 93010

== ENCOUNTER 2017-04-28 21:41 | Inpatient (IN) | payer OTHER ==
--- NOTE | 2017-04-28 21:55 | HP ---
CIWA Score - CIWA Score Nausea/Vomitin Muscle Tremors: 3 Anxiety: 3 Agitation: 2 Paroxysmal Sweats: 2 Orientation: 0-Oriented Tacttile Disturbances: 2-Mild Itch/Numbness/Burn Auditory Disturbances: 3-Moderate Harsh/Frighten Visual Disturbances: 2-Mild Sensitivity Headache: 3-Moderate CIWA-Ar Total Score: 23 Admission ROS BHS - HPI Chief Complaint: DEPENDENT ON ETOH, MARIJUANA AND OCC. COCAINE Allergies/Adverse Reactions: Allergies Allergy/AdvReac Type Severity Reaction Status Date / Time coconut oil Allergy Severe Verified 03/26/17 17:34 No Known Drug Allergies Allergy Severe Verified 03/26/17 17:34 History of Present Illness: THE PT. IS REQUESTING ADMISSION TO THE DETOX UNIT AND CAME FOR MEDICAL CLEARANCE. Exam Limitations: No Limitations - Ebola screening Have you traveled outside of the country in the last 21 days: No Have you had contact with anyone from an Ebola affected area: No Have you been sick,other than usual withdrawal symptoms: No Do you have a fever: No - Review of Systems Constitutional: See HPI, Loss of Appetite, Malaise, Weakness, Unexplained wgt Loss EENT: reports: See HPI, Tearing Respiratory: reports: See HPI Cardiac: reports: See HPI, Syncope GI: reports: See HPI, Nausea, Poor Appetite, Poor Fluid Intake, Abdominal cramping : reports: No Symptoms Reported, See HPI Musculoskeletal: reports: See HPI, Muscle Pain, Muscle Weakness Integumentary: reports: See HPI, Sweating Neuro: reports: See HPI, Headache, Tremors, Weakness, Dizziness Endocrine: reports: See HPI Hematology: reports: See HPI Psychiatric: reports: Judgement Intact, Orientated x3, Agitated, Anxious, Depressed Patient History - Patient Medical History Hx Anemia: Yes Hx Asthma: No Hx Chronic Obstructive Pulmonary Disease (COPD): No Hx Cancer: No Hx Cardiac Disorders: Yes (CONGENITAL heart murmur; A.FIB. NOT ON ANY MEDS.) Hx Congestive Heart Failure: No Hx Hypertension: Yes Hx Hypercholesterolemia: No Hx Pacemaker: No HX Cerebrovascular Accident: Yes (2002 RESOLVED WITHOUT ANY COMPLICATIONS) Hx Seizures: No Hx Dementia: No Hx Diabetes: No Hx Gastrointestinal Disorders: No Hx Liver Disease: Yes (FATTY LIVER) Hx Genitourinary Disorders: No Hx Sexually Transmitted Disorders: No Hx Renal Disease (ESRD): No Hx Thyroid Disease: No Hx Human Immunodeficiency Virus (HIV): No (negative) Hx Hepatitis C: No (negative) Hx Depression: Yes (anxiety) Hx Suicide Attempt: No Hx Bipolar Disorder: No Hx Schizophrenia: No - Patient Surgical History Past Surgical History: Yes Hx Neurologic Surgery: No Hx Cataract Extraction: No Hx Cardiac Surgery: No Hx Lung Surgery: No Hx Breast Surgery: No Hx Breast Biopsy: No Hx Abdominal Surgery: Yes (hernia repair) Hx Appendectomy: No Hx Cholecystectomy: No Hx Genitourinary Surgery: No Hx Section: No Hx Orthopedic Surgery: Yes (right knee, 07/29/2015) Hx Hysterectomy: No Other Surgical History: R inguinal hernia repair Anesthesia Reaction: No - PPD History Date: 09/30/16 Results: 0 mm - Reproductive History Patient is a Female of Child Bearing Age (11 -55 yrs old): Yes Last Menstrual Period: 06/27/15 Patient : No - Smoking Cessation Smoking history: Never smoked Have you smoked in the past 12 months: No Aproximately how many cigarettes per day: 0 Cigars Per Day: 0 Hx Chewing Tobacco Use: No Initiated information on smoking cessation: No 'Breaking Loose' booklet given: 04/28/17 - Substance & Tx. History Hx Alcohol Use: Yes Hx Substance Use: Yes Substance Use Type: Alcohol, Cocaine, Marijuana Hx Substance Use Treatment: Yes - Substances Abused Alcohol Route: Oral Frequency: Daily Amount used: BEER 22 OZS. X 5/D Age of first use: 18 Date of Last Use: 04/28/17 Marijuana/Hashish Route: Smoking Frequency: Daily Amount used: 8-9 BLUNTS Age of first use: 18 Date of Last Use: 04/27/16 Cocaine Route: Smoking Frequency: 1-3 times last 30 days Amount used: $10/ONCE A MONTH Age of first use: 18 Date of Last Use: 04/26/17 Family Disease History - Family Disease History Family Disease History: Diabetes: Mother (htn .asthma ), Heart Disease: Mother, Other: Father (), Mother Admission Physical Exam [facility] - Physical General Appearance: Yes: No Apparent Distress, Appropriately Dressed, Thin, Tremorous, Sweating, Anxious HEENTM: Yes: Hearing grossly Normal, Normocephalic, Normal Voice, JOSE, Pharynx Normal Respiratory: Yes: Chest Non-Tender, Lungs Clear, Normal Breath Sounds, No Respiratory Distress, No Accessory Muscle Use Neck: Yes: No masses,lesions,Nodules, Supple, Trachea in good position Breast: Yes: Breast Exam Deferred, Axillae without masses Cardiology: Yes: Regular Rhythm, S1, S2, Tachycardia Abdominal: Yes: Normal Bowel Sounds, Non Tender, Flat, Soft Back: Yes: Normal Inspection Musculoskeletal: Yes: full range of Motion, Gait Steady, Pelvis Stable, Muscle Pain, Muscle weakness Extremities: Yes: Normal Capillary Refill, Normal Range of Motion, Non-Tender, Tremors Neurological: Yes: 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 case manager 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 NML intact, Fully Oriented, Alert, Motor Strength 5/5, Normal Response, Depressed Affect Integumentary: Yes: Warm, Moist Lymphatic: Yes: Within Normal Limits - Diagnostic (1) Alcohol dependence with uncomplicated withdrawal Current Visit: Yes Status: Chronic (2) Cocaine dependence Current Visit: Yes Status: Chronic Qualifiers: Substance use status: uncomplicated Qualified Code(s): F14.20 - Cocaine dependence, uncomplicated; F14.20 - Cocaine dependence, uncomplicated; F14.20 - Cocaine dependence, uncomplicated (3) Hypertension Current Visit: Yes Status: Chronic Qualifiers: Hypertension type: essential hypertension Qualified Code(s): I10 - Essential (primary) hypertension; I10 - Essential (primary) hypertension; I10 - Essential (primary) hypertension (4) Cannabis dependence Current Visit: Yes Status: Chronic (5) Anxiety and depression Current Visit: Yes Status: Chronic Cleared for Admission [facility] - Detox or Rehab [facility] Level of Care: Medically Managed Detox Regimen/Protocol: Librium [facility] Breath Alcohol Content Breath Alcohol Content: 0.245 Vital Signs - Vital Signs Vital Signs Refused: No Temperature: 97.8 F Temperature Source: Oral Pulse Rate: 114 Respiratory Rate: 16 Blood Pressure: 135/106 BP Location: Left Arm Blood Pressure Position: Sitting - Height Height: 6 ft - Weight Weight: 130 lb Weight Measurement Method: Standing Scale Body Mass Index (BMI): 17.6 Urine Pregancy Test - Test Device Lot Number: [id number] Expiration Date: 11/25/18 - Control Horizontal Line in Upper Control Window?: Yes - Result Urine Test Results: Negative- NO Line Present Urine Drug Screen - Test Device Lot Number: [id number] Expiration Date: 12/26/18 - Control Is Test Valid: Yes - Results Drug Screen Negative: No Urine Drug Screen Results: THC-Marijuana, MONISHA-Cocaine, BZO-Benzodiazepines, TCA- Tricyclic Antidepress
[2017-04-28 22:03] VITALS: BMI 17.6
[2017-04-28] MEDS ORDERED: P-EPHED 60MG/TRIPROLIDI 2.5MG TABLET PO PRN (22:03)
[2017-04-28] MEDS ORDERED: ACETAMINOPHEN 325 MG TABLET (FP) PO PRN (22:03)
[2017-04-28] MEDS ORDERED: chlordiazePOXIDE HCL 25 MG CAPSULE PO PRN (22:03)
[2017-04-28] MEDS ORDERED: MAGNESIUM CITRATE 300 ML BOTTLE PO PRN (22:03)
[2017-04-28] MEDS ORDERED: chlordiazePOXIDE HCL 25 MG CAPSULE PO ONE (22:03)
[2017-04-28] MEDS ORDERED: IBUPROFEN 400 MG TABLET (FP) PO PRN (22:03)
[2017-04-28] MEDS ORDERED: LOPERAMIDE HCL 2 MG CAPSULE PO PRN (22:03)
[2017-04-28] MEDS ORDERED: MENTHOL/PHENOL 1 EACH UD MM PRN (22:03)
[2017-04-28] MEDS ORDERED: MAG HYDROX/AL HYDROX/SIMETH 30 ML UNIT-DOSE CUP PO PRN (22:03)
[2017-04-28] MEDS ORDERED: MAGNESIUM HYDROX 2400MG/30ML ORAL SUSPENSION 30 ML CUP PO PRN (22:03)
[2017-04-28] MEDS ORDERED: hydrOXYzine PAMOATE 25 MG CAPSULE (FP) PO PRN (22:03)
[2017-04-28] MEDS ORDERED: guaiFENesin/D-METHORPHAN HB 10 ML UNIT-DOSE CUPS PO PRN (22:03)
[2017-04-28] MEDS: chlordiazePOXIDE HCL 25 MG CAPSULE PO SCH (23:03)
[2017-04-28] MEDS: HYDROCHLOROTHIAZIDE 25 MG TABLET (FP) PO SCH (23:03)
[2017-04-28] MEDS: METOPROLOL TARTRATE 25 MG TABLET (FP) PO SCH (23:03)
[2017-04-28] MEDS: diphenhydrAMINE HCL 50 MG CAPSULE PO PRN (23:04)
[2017-04-29] MEDS: chlordiazePOXIDE HCL 25 MG CAPSULE PO SCH ×4 (06:05→22:25)
[2017-04-29 10:11] LABS: MCH 33.4 pg (25.7-33.7); MEAN CELL VOLUME 101.1 fl (80-96); MEAN PLT VOLUME 9.5 fl (7.5-11.1); PLATELET COUNT 171 K/MM3 (134-434); WHITE BLOOD COUNT 3.6 K/mm3 (4.0-10.0)
[2017-04-29 10:22] LABS: ALBUMIN 3.7 g/dl (3.4-5.0); ANION GAP 7 (8-16); CO2 27 mmol/L (21-32); GLUCOSE,RANDOM 83 mg/dL (74-106)
--- NOTE | 2017-04-29 10:25 | CONSULT ---
[facility] Psychiatric Consult - Data Date of interview: 04/29/17 Admission source: [facility] Identifying data: This is 46 years old jmale with no psychiatric hospitalization history intoxicated with: Cocaine, Alcohol, Cannabuis, Nicotine , PCP abuse hisotry as well Substance Abuse History: - Smoking Cessation. Smoking history: Never smoked. Have you smoked in the past 12 months: No. Aproximately how many cigarettes per day: 0. Cigars Per Day: 0. Hx Chewing Tobacco Use: No. Initiated information on smoking cessation: No. 'Breaking Loose' booklet given: . - Substance & Tx. History. Hx Alcohol Use: Yes. Hx Substance Use: Yes. Substance Use Type: Alcohol, Cocaine, Marijuana. Hx Substance Use Treatment: Yes. - Substances Abused. Alcohol. Route: Oral. Frequency: Daily. Amount used: BEER 22 OZS. X 5/D. Age of first use: 18. Date of Last Use: 04/28. Marijuana/Hashish. Route: Smoking. Frequency: Daily. Amount used: 8- 9 BLUNTS. Age of first use: 18. Date of Last Use: 04/27/16. Cocaine. Route: Smoking. Frequency: 1-3 times last 30 days. Amount used: $10/ONCE A MONTH. Age of first use: 18. Date of Last Use: 04/26/17 Medical History: HTN, Weight loss histopry, UTI history, CVA history Psychiatric History: Patient reports histrory of depression and anxiety, reports n0o suicidal history, reports taking prior to admission: Seroquel 100mg po qhs for insomnia Physical/Sexual Abuse/Trauma History: Denies Additional Comment: Seroquel 100mg po qhs Mental Status Exam - Mental Status Exam Alert and Oriented to: Person Cognitive Function: Fair Patient Appearance: Unkempt Mood: Sad Affect: Flat Patient Behavior: Sedated Speech Pattern: Delayed Voice Loudness: Mildly Soft/Quiet Thought Process: Circumstantial Thought Disorder: Being Controlled Hallucinations: Denies Suicidal Ideation: Denies Homicidal Ideation: Denies Insight/Judgement: Fair Sleep: Difficulty falling asleep Appetite: Weight loss Muscle strength/Tone: Mild Hypotonicity Gait/Station: Shuffling Additional Comments: Seroquel 100mg po qhs Psychiatric Findings - Problem List ([place] 1, 2,3) (1) Alcohol dependence with uncomplicated withdrawal Current Visit: Yes Status: Chronic (2) Anxiety and depression Current Visit: Yes Status: Chronic (3) Cannabis dependence Current Visit: Yes Status: Chronic (4) Cocaine dependence Current Visit: Yes Status: Chronic Qualifiers: Substance use status: uncomplicated Qualified Code(s): F14.20 - Cocaine dependence, uncomplicated; F14.20 - Cocaine dependence, uncomplicated; F14.20 - Cocaine dependence, uncomplicated (5) Drug-induced mood disorder Current Visit: No Status: Acute (6) PCP abuse Current Visit: No Status: Acute - Initial Treatment Plan Initial Treatment Plan: Seroquel 100mg po qhs
[2017-04-29 10:26] LABS: ALK PHOS 107 U/L (45-117); BILIRUBIN,TOTAL 0.5 mg/dL (0.2-1.0); CREATININE 0.7 mg/dL (0.55-1.02); SGOT/AST 93 U/L (15-37); SGPT/ALT 44 U/L (12-78)
[2017-04-29] MEDS: PRENATAL VITAMINS W/ FOLIC ACID TABLET (FP) PO SCH (10:35)
[2017-04-29] MEDS: HYDROCHLOROTHIAZIDE 25 MG TABLET (FP) PO SCH (10:36)
[2017-04-29] MEDS: METOPROLOL TARTRATE 25 MG TABLET (FP) PO SCH ×2 (10:36→22:25)
--- NOTE | 2017-04-29 11:41 | PN ---
S CIWA - CIWA Score Nausea/Vomitin-No Nausea/No Vomiting Muscle Tremors: 4-Moderate,w/Arms Extend Anxiety: 3 Agitation: 4-Moderately Restless Paroxysmal Sweats: 3 Orientation: 0-Oriented Tacttile Disturbances: 0-None Auditory Disturbances: 0-None Visual Disturbances: 0-None Headache: 0-None Present CIWA-Ar Total Score: 14 BHS Progress Note (SOAP) Subjective: sweats chills agitation interrupted sleep body aches Objective: 04/29/17 11:40 Vital Signs Temperature 100.2 F H 04/29/17 09:37 Pulse Rate 82 04/29/17 09:37 Respiratory Rate 20 04/29/17 09:37 Blood Pressure 126/90 04/29/17 09:37 O2 Sat by Pulse Oximetry (%) Laboratory Tests 04/29/17 04/29/17 07:30 07:30 WBC 3.6 L D RBC 3.90 Hgb 13.0 D Hct 39.5 MCV 101.1 H MCH 33.4 MCHC 33.0 RDW 15.0 Plt Count 171 MPV 9.5 D Sodium 134 L Potassium 3.4 L Chloride 100 Carbon Dioxide 27 Anion Gap 7 L BUN 8 Creatinine 0.7 Creat Clearance w eGFR > 60 Random Glucose 83 Calcium 9.0 Total Bilirubin 0.5 D AST 93 H D ALT 44 D Alkaline Phosphatase 107 Total Protein 9.0 H Albumin 3.7 low potassium; replenish with k-dur 20meq x 4 days AAOx3 lying in bed no acute distress Assessment: 04/29/17 11:41 withdrawal sx Plan: continue detox increase fluids k-dur as ordered f/u pending labs
--- NOTE | 2017-04-29 12:01 | EKG ---
Test Reason : Blood Pressure : / mmHG Vent. Rate : 091 BPM Atrial Rate : 091 BPM P-R Int : 180 ms QRS Dur : 088 ms QT Int : 376 ms P-R-T Axes : 080 089 068 degrees QTc Int : 462 ms NORMAL SINUS RHYTHM NORMAL ECG WHEN COMPARED WITH ECG OF 26-MAR-2017 19:29, SINUS RHYTHM HAS REPLACED JUNCTIONAL RHYTHM CRITERIA FOR SEPTAL INFARCT ARE NO LONGER PRESENT T WAVE AMPLITUDE HAS DECREASED IN ANTERIOR LEADS Confirmed by PANTERA ROLDAN MD ([id number]) on 04/29/2017 12:01:21 PM Referred By: Mookie Mcfarland Confirmed By:PANTERA ROLDAN MD
[2017-04-29] MEDS: POTASSIUM CHLORIDE TABS 20 MEQ TABLET.ER (FP) PO SCH (12:10)
[2017-04-29 13:41] LABS: URINE APPEARANCE CLOUDY; URINE BILIRUBIN NEGATIVE (NEGATIVE); URINE BLOOD 1+ (NEGATIVE); URINE COLOR YELLOW; URINE GLUCOSE (UA) NEGATIVE (NEGATIVE); URINE KETONE NEGATIVE (NEGATIVE); URINE NITRITE NEGATIVE (NEGATIVE); URINE PROTEIN NEGATIVE (NEGATIVE); URINE UROBILINOGEN NEGATIVE mg/dL (0.2-1.0)
[2017-04-29 13:43] LABS: URINE LEUK ESTERASE 3+ (NEGATIVE)
[2017-04-29 13:53] LABS: URINE BACTERIA MANY /hpf (NONE SEEN); URINE HYALINE CAST 13 /lpf; URINE MUCUS FEW; URINE RBC 9 /hpf (0-3); URINE WBC 177 /hpf (3-5)
[2017-04-29] MEDS: diphenhydrAMINE HCL 50 MG CAPSULE PO PRN (22:24)
[2017-04-29] MEDS: THIAMINE HCL 100 MG TABLET (FP) PO SCH (22:25)
[2017-04-29] MEDS: QUEtiapine FUMARATE 100 MG TABLET (FP) PO SCH (22:25)
[2017-04-30] MEDS: chlordiazePOXIDE HCL 25 MG CAPSULE PO SCH ×3 (06:03→16:50)
[2017-04-30] MEDS: HYDROCHLOROTHIAZIDE 25 MG TABLET (FP) PO SCH (10:37)
[2017-04-30] MEDS: POTASSIUM CHLORIDE TABS 20 MEQ TABLET.ER (FP) PO SCH (10:37)
[2017-04-30] MEDS: PRENATAL VITAMINS W/ FOLIC ACID TABLET (FP) PO SCH (10:37)
[2017-04-30] MEDS: METOPROLOL TARTRATE 25 MG TABLET (FP) PO SCH ×2 (10:37→22:16)
--- NOTE | 2017-04-30 11:07 | PN ---
[facility] CIWA - CIWA Score Nausea/Vomitin-No Nausea/No Vomiting Muscle Tremors: 4-Moderate,w/Arms Extend Anxiety: 2 Agitation: 3 Paroxysmal Sweats: 3 Orientation: 0-Oriented Tacttile Disturbances: 0-None Auditory Disturbances: 0-None Visual Disturbances: 0-None Headache: 0-None Present CIWA-Ar Total Score: 12 S Progress Note (SOAP) Subjective: I have a UTI sweats interrupted sleep Objective: 04/30/17 11:05 Vital Signs Temperature 97.3 F L 04/30/17 06:00 Pulse Rate 66 04/30/17 06:00 Respiratory Rate 18 04/30/17 06:00 Blood Pressure 107/77 04/30/17 06:00 O2 Sat by Pulse Oximetry (%) Laboratory Tests 04/29/17 04/29/17 04/29/17 07:30 07:30 07:30 WBC 3.6 L D RBC 3.90 Hgb 13.0 D Hct 39.5 MCV 101.1 H MCH 33.4 MCHC 33.0 RDW 15.0 Plt Count 171 MPV 9.5 D Sodium 134 L Potassium 3.4 L Chloride 100 Carbon Dioxide 27 Anion Gap 7 L BUN 8 Creatinine 0.7 Creat Clearance w eGFR > 60 Random Glucose 83 Calcium 9.0 Total Bilirubin 0.5 D AST 93 H D ALT 44 D Alkaline Phosphatase 107 Total Protein 9.0 H Albumin 3.7 Urine Color Urine Appearance Urine pH Ur Specific [place] Urine Protein Urine Glucose (UA) Urine Ketones Urine Blood Urine Nitrite Urine Bilirubin Urine Urobilinogen Urine RBC Urine WBC Ur Epithelial Cells Urine Bacteria Hyaline Casts Urine Mucus RPR Titer Nonreactive 04/29/17 12:10 WBC RBC Hgb Hct MCV MCH MCHC RDW Plt Count MPV Sodium Potassium Chloride Carbon Dioxide Anion Gap BUN Creatinine Creat Clearance w eGFR Random Glucose Calcium Total Bilirubin AST ALT Alkaline Phosphatase Total Protein Albumin Urine Color Yellow Urine Appearance Cloudy Urine pH 5.0 Ur Specific [place] 1.020 Urine Protein Negative Urine Glucose (UA) Negative Urine Ketones Negative Urine Blood 1+ H Urine Nitrite Negative Urine Bilirubin Negative Urine Urobilinogen Negative Urine RBC 9 Urine WBC 177 Ur Epithelial Cells Rare Urine Bacteria Many Hyaline Casts 13 Urine Mucus Few RPR Titer increased WBC; bactrim ds bid ordered AAOx3 ambulating no acute distress repeat u/a Assessment: 04/30/17 11:05 withdrawal sx Plan: continue detox increase fluids bactrim ordered repeat u/a
[2017-04-30] MEDS: SULFAMETHOXAZOLE/TRIMETHOPRIM 800MG/160MG D.S. TABLET PO SCH ×2 (11:40→22:16)
[2017-04-30] MEDS: chlordiazePOXIDE 5 MG CAPSULE PO SCH (22:16)
[2017-04-30] MEDS: diphenhydrAMINE HCL 50 MG CAPSULE PO PRN (22:16)
[2017-04-30] MEDS: QUEtiapine FUMARATE 100 MG TABLET (FP) PO SCH (22:17)
[2017-04-30] MEDS: THIAMINE HCL 100 MG TABLET (FP) PO SCH (22:17)
[2017-05-01] MEDS: chlordiazePOXIDE 5 MG CAPSULE PO SCH ×3 (05:38→17:31)
[2017-05-01 09:44] LABS: URINE APPEARANCE CLOUDY; URINE BILIRUBIN NEGATIVE (NEGATIVE); URINE BLOOD NEGATIVE (NEGATIVE); URINE COLOR YELLOW; URINE GLUCOSE (UA) NEGATIVE (NEGATIVE); URINE KETONE NEGATIVE (NEGATIVE); URINE NITRITE NEGATIVE (NEGATIVE); URINE PROTEIN NEGATIVE (NEGATIVE); URINE UROBILINOGEN NEGATIVE mg/dL (0.2-1.0)
[2017-05-01 09:57] LABS: URINE LEUK ESTERASE 3+ (NEGATIVE)
[2017-05-01 10:42] LABS: URINE MUCUS RARE; URINE RBC 1 /hpf (0-3); URINE WBC 78 /hpf (3-5)
[2017-05-01] MEDS: PRENATAL VITAMINS W/ FOLIC ACID TABLET (FP) PO SCH (10:49)
[2017-05-01] MEDS: POTASSIUM CHLORIDE TABS 20 MEQ TABLET.ER (FP) PO SCH (10:49)
[2017-05-01] MEDS: METOPROLOL TARTRATE 25 MG TABLET (FP) PO SCH ×2 (10:49→22:34)
[2017-05-01] MEDS: HYDROCHLOROTHIAZIDE 25 MG TABLET (FP) PO SCH (10:49)
[2017-05-01] MEDS: SULFAMETHOXAZOLE/TRIMETHOPRIM 800MG/160MG D.S. TABLET PO SCH ×2 (10:49→22:33)
--- NOTE | 2017-05-01 13:20 | PN ---
S Progress Note (SOAP) Subjective: alert,irritable,anxious,interrupted sleep Objective: 05/01/17 13:18 Vital Signs Temperature 96.6 F L 05/01/17 10:43 Pulse Rate 78 05/01/17 10:43 Respiratory Rate 18 05/01/17 10:43 Blood Pressure 114/85 05/01/17 10:43 O2 Sat by Pulse Oximetry (%) Assessment: 05/01/17 13:19 withdrawal symptom Plan: continue detox,discharge in am
[2017-05-01] MEDS: diphenhydrAMINE HCL 50 MG CAPSULE PO PRN (22:33)
[2017-05-01] MEDS: chlordiazePOXIDE HCL 10 MG CAPSULE PO SCH (22:33)
[2017-05-01] MEDS: QUEtiapine FUMARATE 100 MG TABLET (FP) PO SCH (22:34)
[2017-05-01] MEDS: THIAMINE HCL 100 MG TABLET (FP) PO SCH (22:34)
[2017-05-02] MEDS: chlordiazePOXIDE HCL 10 MG CAPSULE PO SCH (06:18)
--- NOTE | 2017-05-02 09:24 | DS ---
[facility] Detox Discharge Summary Admission Date: 04/28/17 Discharge Date: 05/02/17 - History Present History: Alcohol Dependence, Cannabis Dependence, Cocaine Dependence - Physical Exam Results Vital Signs: Vital Signs Temperature 97.3 F L 05/02/17 06:41 Pulse Rate 83 05/02/17 06:41 Respiratory Rate 18 05/02/17 06:41 Blood Pressure 108/70 05/02/17 06:41 O2 Sat by Pulse Oximetry (%) - Treatment Hospital Course: Detox Protocol Followed, Detoxed Safely, Responded well, Discharged Condition Good, Rehab Referral Accepted - Medication Discharge Medications: Ambulatory Orders Quetiapine Fumarate [Seroquel] 100 mg PO HS #30 tablet 04/29/17 Quetiapine Fumarate [Seroquel] 100 mg PO HS #30 tablet 04/29/17 - Diagnosis (1) Alcohol dependence with uncomplicated withdrawal Current Visit: Yes Status: Chronic (2) Cannabis dependence Current Visit: Yes Status: Chronic (3) Cocaine dependence Current Visit: Yes Status: Chronic Qualifiers: Substance use status: uncomplicated Qualified Code(s): F14.20 - Cocaine dependence, uncomplicated; F14.20 - Cocaine dependence, uncomplicated; F14.20 - Cocaine dependence, uncomplicated (4) Hypertension Current Visit: Yes Status: Chronic Qualifiers: Hypertension type: essential hypertension Qualified Code(s): I10 - Essential (primary) hypertension; I10 - Essential (primary) hypertension; I10 - Essential (primary) hypertension (5) PCP abuse Current Visit: Yes Status: Chronic (6) UTI (urinary tract infection) Current Visit: Yes Status: Chronic Qualifiers: Urinary tract infection type: site unspecified Hematuria presence: without hematuria Qualified Code(s): N39.0 - Urinary tract infection, site not specified; N39.0 - Urinary tract infection, site not specified; R31.9 - Hematuria, unspecified; R31.9 - Hematuria, unspecified (7) Weight loss Current Visit: No Status: Acute (8) Chronic knee pain Current Visit: No Status: Chronic Qualifiers: Laterality: right Qualified Code(s): M25.561 - Pain in right knee; M25.561 - Pain in right knee; G89.29 - Other chronic pain; G89.29 - Other chronic pain (9) Old cerebrovascular accident (CVA) without late effect Current Visit: No Status: Chronic - AMA Did Patient Leave Against Medical Advice: No
[2017-05-02] MEDS: METOPROLOL TARTRATE 25 MG TABLET (FP) PO SCH (09:43)
[2017-05-02] MEDS: SULFAMETHOXAZOLE/TRIMETHOPRIM 800MG/160MG D.S. TABLET PO SCH (09:44)
[2017-05-02] MEDS: HYDROCHLOROTHIAZIDE 25 MG TABLET (FP) PO SCH (09:44)
[2017-05-02] MEDS: POTASSIUM CHLORIDE TABS 20 MEQ TABLET.ER (FP) PO SCH (09:44)
[2017-05-02] MEDS: PRENATAL VITAMINS W/ FOLIC ACID TABLET (FP) PO SCH (09:44)
[2017-05-02 11:19] VITALS: BP 123/85; PULSE 79; TEMP 96.4
== END 2017-05-02 10:00 | disposition home or self-care (01) | DRG 774 ==
LOC: YASAS 21:41 → Y6N 21:42
PROVIDERS: ADMIT Internal Medicine; ATTEND Internal Medicine
PROC: HZ2ZZZZ Detoxification Services for Substance Abuse Treatment (ICD-10-PCS; principal; 2017-04-28)
DX: F10.230 Alcohol dependence with withdrawal, uncomplicated (principal); F14.20 Cocaine dependence, uncomplicated; F12.20 Cannabis dependence, uncomplicated; F16.10 Hallucinogen abuse, uncomplicated; F19.24 Other psychoactive substance dependence with psychoactive substance-induced mood disorder; F41.8 Other specified anxiety disorders; I48.91 Unspecified atrial fibrillation; I10 Essential (primary) hypertension; R00.0 Tachycardia, unspecified; M31.9 Necrotizing vasculopathy, unspecified; M25.561 Pain in right knee; G89.29 Other chronic pain; D64.9 Anemia, unspecified; R01.1 Cardiac murmur, unspecified; K76.0 Fatty (change of) liver, not elsewhere classified; Z86.73 Personal history of transient ischemic attack (TIA), and cerebral infarction without residual deficits; Z91.018 Allergy to other foods; Z87.898 Personal history of other specified conditions
CPT/HCPCS: 36415; 80053; 81003; 81015; 85027; 86593; 93005; 93010

== ENCOUNTER 2017-06-17 16:43 | Emergency (ER) | payer OTHER ==
[2017-06-17 16:54] VITALS: PULSE 69; TEMP 98.1; BMI 19.3
--- NOTE | 2017-06-17 18:23 | PDOC ---
History of Present Illness - General Chief Complaint: Nausea/Vomiting Stated Complaint: PAIN Time Seen by Provider: 06/17/17 17:36 History Source: Patient Exam Limitations: No Limitations - History of Present Illness Initial Comments: This is a 46 YOF with h/o heavy alcohol and marijuana use, and HTN, who presents with multiple complaints including dizziness, passing out yesterday, lip injury sustained from falling to the ground, nausea, vomiting, burning and strange smells on urination, right wrist pain, and right ankle severe pain which she states is related to an ankle fracture she sustained two weeks ago followed by an infection to the same ankle. When asked about her main reasons for coming into the ED, she states that she wants to find out why her legs keep giving out from under her, and why she has continued ankle pain. She states that she has been taking antibiotics but presents with a bad of medications which does not include these antibiotics. Past History - Past Medical History Allergies/Adverse Reactions: Allergies Allergy/AdvReac Type Severity Reaction Status Date / Time coconut oil Allergy Severe Verified 06/17/17 16:48 No Known Drug Allergies Allergy Severe Verified 06/17/17 16:48 Home Medications: Ambulatory Orders Quetiapine Fumarate [Seroquel] 100 mg PO HS #30 tablet 04/29/17 Quetiapine Fumarate [Seroquel] 100 mg PO HS #30 tablet 04/29/17 Quetiapine Fumarate [Seroquel] 100 mg PO HS #30 tablet 06/05/17 Amlodipine Besylate [Norvasc -] 5 mg PO DAILY #30 tablet 06/08/17 Anemia: Yes Asthma: No Cancer: No Cardiac Disorders: Yes (MURMUR ) CVA: Yes (2003 RESOLVED WITHOUT ANY COMPLICATIONS) COPD: No CHF: No Dementia: No Diabetes: No GI Disorders: Yes (GERD ) Disorders: No HTN: Yes (ON MEDS) Hypercholesterolemia: No Kidney Stones: No Liver Disease: Yes (FATTY LIVER) Seizures: No Thyroid Disease: No - Surgical History Abdominal Surgery: Yes (hernia repair) Appendectomy: No Cardiac Surgery: No Cholecystectomy: No Lung Surgery: No Neurologic Surgery: No Orthopedic Surgery: Yes (right knee, 07/29/2015) - Reproductive History PID: No - Suicide/Smoking/Psychosocial Hx Smoking Status: No Smoking History: Never smoked Have you smoked in the past 12 months: No Number of Cigarettes Smoked Daily: 0 Cigars Per Day: 0 Information on smoking cessation initiated: No 'Breaking Loose' booklet given: 04/28/17 Hx Alcohol Use: No Drug/Substance Use Hx: No Substance Use Type: None Hx Substance Use Treatment: Yes (DETOX: 04/28/2017) *Physical Exam - Vital Signs Last Vital Signs Temp Pulse Resp BP Pulse Ox 98.1 F 69 18 122/90 100 06/17/17 16:49 06/17/17 16:49 06/17/17 16:49 06/17/17 16:49 06/17/17 16:49 - Physical Exam General Appearance: Yes: Nourished, Appropriately Dressed, Other (mostly pleasant, hoarse voice, gets off track with answers frequently). No: Apparent Distress HEENT: positive: EOMI, JOSE, Muffled/Hoarse voice, Hearing Grossly Normal. negative: Scleral Icterus (R), Scleral Icterus (L), Nasal Congestion Neck: positive: Trachea midline, Supple. negative: Tender, Rigid Respiratory/Chest: positive: Lungs Clear, Normal Breath Sounds. negative: Respiratory Distress, Crackles, Rhonchi, Stridor, Wheezing Cardiovascular: positive: Regular Rhythm, Regular Rate. negative: Murmur Gastrointestinal/Abdominal: positive: Normal Bowel Sounds, Soft. negative: Tender, Organomegaly, Pulsatile Mass, Guarding Musculoskeletal: positive: Normal Inspection. negative: Decreased Range of Motion, Vertebral Tenderness Extremity: positive: Normal Capillary Refill, Normal Inspection, Normal Range of Motion. negative: Tender, Cyanosis Integumentary: positive: Normal Color, Dry, Warm. 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
--- NOTE | 2017-06-17 19:35 | PDOC ---
*Physical Exam - Vital Signs Last Vital Signs Temp Pulse Resp BP Pulse Ox 98.1 F 69 18 122/90 100 06/17/17 16:49 06/17/17 16:49 06/17/17 16:49 06/17/17 16:49 06/17/17 16:49 - Physical Exam Comments: 06/17/17 19:32 GENERAL: Awake, alert, and fully oriented, in no acute distress HEAD: No signs of trauma, normocephalic, atraumatic EYES: PERRLA, EOMI, sclera anicteric, conjunctiva clear ENT: Auricles normal inspection, hearing grossly normal, nares patent, oropharynx clear without exudates. Moist mucosa NECK: Normal ROM, supple, no JVD, or masses LUNGS: No distress, speaks full sentences, clear to auscultation bilaterally HEART: Regular rate and rhythm, normal S1 and S2, no murmurs, rubs or gallops, peripheral pulses normal and equal bilaterally. ABDOMEN: Soft, nontender, normoactive bowel sounds. No guarding, no rebound. No masses EXTREMITIES : Normal inspection, Normal range of motion, no edema. No clubbing or cyanosis. SKIN: Warm, Dry, normal turgor, no rashes or lesions noted. ED Treatment Course - LABORATORY CBC & Chemistry Diagram: 06/17/17 20:38 06/17/17 20:38 Medical Decision Making - Medical Decision Making 06/17/17 20:[address] Gastelum This is a 46 yo F with h/o alcohol dependence, marijuana use, and HTN, who presents with multiple complaints with chief complaint of right ankle pain in setting of recent R. ankle fracture and reports of infection on antibiotics. On further investigation it is unclear who prescribed this patient antibiotics and patient refuses to f/u with orthopedics for recurrent ankle pain. We will obtain R ankle RAD to r/o occult fracture . ED Course: Right Ankle RAD CBC,CMP 06/17/17 21:16 CBC/CMP: Unremarkable. Right Ankle RAD: No acute fracture. 06/17/17 22:48 Stable for D/c with return precautions and advised to f/u with Ortho. *DC/Admit/Observation/Transfer Diagnosis at time of Disposition: Right ankle injury Qualifiers: Encounter type: initial encounter Qualified Code(s): S99.911A - Unspecified injury of right ankle, initial encounter - Discharge Dispostion Disposition: HOME Condition at time of disposition: Stable Admit: No - Referrals Referrals: Costa Pickens MD [Staff Physician] - - Patient Instructions Printed Discharge Instructions: DI for Ankle Fracture, DI for Ankle Pain Additional Instructions: Please return to the emergency department with nay new or worsening symtpoms or complaints. Please follow up with orthopedics within the next one week for symptom management. - Post Discharge Activity - Attestations Physician Attestion: 06/17/17 21:35 I attest to the information provided in this note.
[2017-06-17 20:50] LABS: BASOPHIL 0.5 % (0-2.0); EOSINOPHIL 2.9 % (0-4.5); MCH 33.5 pg (25.7-33.7); MCHC 32.8 g/dl (32.0-36.0); MEAN CELL VOLUME 102.3 fl (80-96); MEAN PLT VOLUME 8.3 fl (7.5-11.1); NEUTROPHILS 56.3 % (42.8-82.8); PLATELET COUNT 267 K/MM3 (134-434); RDW 15.1 % (11.6-15.6); WHITE BLOOD COUNT 5.7 K/mm3 (4.0-10.0)
[2017-06-17 21:10] LABS: ALBUMIN 3.4 g/dl (3.4-5.0); ANION GAP 8 (8-16); CO2 24 mmol/L (21-32); CREATININE 0.8 mg/dL (0.55-1.02); GLUCOSE,RANDOM 70 mg/dL (74-106); SGPT/ALT 38 U/L (12-78)
[2017-06-17 21:11] LABS: ALK PHOS 108 U/L (45-117); BILIRUBIN,TOTAL 0.4 mg/dL (0.2-1.0); TOT PROT 8.7 g/dl (6.4-8.2)
[2017-06-17 21:12] LABS: SGOT/AST 59 U/L (15-37)
[2017-06-18 00:17] VITALS: BP 130/78
== END 2017-06-18 00:16 | disposition home or self-care (01) ==
LOC: JER 16:43
DX: S99.811A Other specified injuries of right ankle, initial encounter (principal); Z87.81 Personal history of (healed) traumatic fracture; F10.10 Alcohol abuse, uncomplicated; F12.10 Cannabis abuse, uncomplicated; I10 Essential (primary) hypertension; K21.9 Gastro-esophageal reflux disease without esophagitis; W19.XXXA Unspecified fall, initial encounter; Y93.89 Activity, other specified; Y92.89 Other specified places as the place of occurrence of the external cause
CPT/HCPCS: 36415; 73610-TC-RT; 73630-TC-RT; 80053; 85025; 99282-25

== ENCOUNTER 2017-06-23 14:47 | Inpatient (IN) | payer OTHER ==
[2017-06-23 14:54] VITALS: BMI 19.8
--- NOTE | 2017-06-23 15:35 | HP ---
CIWA Score - CIWA Score Nausea/Vomitin Muscle Tremors: 3 Anxiety: 3 Agitation: 3 Paroxysmal Sweats: 1-Minimal Palms Moist Orientation: 0-Oriented Tacttile Disturbances: 2-Mild Itch/Numbness/Burn Auditory Disturbances: 2-Mild Harshness/Frighten Visual Disturbances: 2-Mild Sensitivity Headache: 2-Mild CIWA-Ar Total Score: 21 Admission ROS BHS - HPI Chief Complaint: i need help to stop drinking alcohol,cocaine and marijuana Allergies/Adverse Reactions: Allergies Allergy/AdvReac Type Severity Reaction Status Date / Time coconut oil Allergy Severe Verified 06/17/17 16:48 No Known Drug Allergies Allergy Severe Verified 06/17/17 16:48 History of Present Illness: this 46 years 0ld female with alcohol,cocaine and marijuana dependence,seeking detox,last treatment [facility] multiple admissions to detox syncope depression,insomnia longest period of sobriety 5 years Exam Limitations: No Limitations - Ebola screening Have you traveled outside of the country in the last 21 days: No Have you had contact with anyone from an Ebola affected area: No Have you been sick,other than usual withdrawal symptoms: No Do you have a fever: No - Review of Systems Constitutional: Diaphoresis, Loss of Appetite, Malaise, Night Sweats, Changes in sleep, Weakness EENT: reports: Nose Congestion Respiratory: reports: Other (asthma) Cardiac: reports: Palpitations GI: reports: Diarrhea, Nausea, Vomiting, Abdominal cramping : reports: No Symptoms Reported Musculoskeletal: reports: Back Pain, Muscle Pain Integumentary: reports: Dryness Neuro: reports: Headache, Tremors Endocrine: reports: No Symptoms Reported Hematology: reports: No Symptoms Reported Psychiatric: reports: No Sypmtoms Reported, Judgement Intact, Mood/Affect Appropiate, Orientated x3, Agitated (in somnia), Anxious Patient History - Patient Medical History Hx Anemia: Yes Hx Asthma: No Hx Chronic Obstructive Pulmonary Disease (COPD): No Hx Cancer: No Hx Cardiac Disorders: Yes (MURMUR ) Hx Congestive Heart Failure: No Hx Hypertension: Yes (ON MEDS) Hx Hypercholesterolemia: No Hx Pacemaker: No HX Cerebrovascular Accident: Yes (2002 RESOLVED WITHOUT ANY COMPLICATIONS) Hx Seizures: No Hx Dementia: No Hx Diabetes: No Hx Gastrointestinal Disorders: Yes (GERD ) Hx Liver Disease: Yes (FATTY LIVER) Hx Genitourinary Disorders: No Hx Sexually Transmitted Disorders: No Hx Renal Disease (ESRD): No Hx Thyroid Disease: No Hx Human Immunodeficiency Virus (HIV): No (negative last 05/14) Hx Hepatitis C: No (negative) Hx Depression: Yes Hx Suicide Attempt: No Hx Bipolar Disorder: No Hx Schizophrenia: No Other Medical History: anxiety,insomnia - Patient Surgical History Past Surgical History: Yes Hx Neurologic Surgery: No Hx Cataract Extraction: No Hx Cardiac Surgery: No Hx Lung Surgery: No Hx Breast Surgery: No Hx Breast Biopsy: No Hx Abdominal Surgery: Yes (hernia repair) Hx Appendectomy: No Hx Cholecystectomy: No Hx Genitourinary Surgery: No Hx Section: No Hx Orthopedic Surgery: Yes (right knee, 07/29/2015) Hx Hysterectomy: No Other Surgical History: R inguinal hernia repair Anesthesia Reaction: No - PPD History Previous Implant?: Yes Documented Results: Negative w/proof Date: 09/30/16 Results: 0 mm PPD to be Administered?: No - Reproductive History Patient is a Female of Child Bearing Age (11 -55 yrs old): Yes Last Menstrual Period: 06/27/15 Patient : No - Smoking Cessation Smoking history: Never smoked Have you smoked in the past 12 months: No Aproximately how many cigarettes per day: 0 Cigars Per Day: 0 Hx Chewing Tobacco Use: No - Substance & Tx. History Hx Alcohol Use: Yes Hx Substance Use: Yes Substance Use Type: Alcohol, Cocaine, Marijuana Hx Substance Use Treatment: Yes ([facility] 06/04/17 to 06/08/17) - Substances Abused Alcohol Route: Oral Frequency: Daily Amount used: 8 of 22 ozs of beer Age of first use: 18 Date of Last Use: 06/23/17 Cocaine Route: Smoking Frequency: 1-3 times last 30 days Amount used: 20$ Age of first use: 25 Date of Last Use: 06/23/17 Marijuana/Hashish Route: Smoking Frequency: Daily Amount used: 25$ Age of first use: 18 Date of Last Use: 06/23/17 Family Disease History - Family Disease History Family Disease History: Diabetes: Mother (htn .asthma ,), Heart Disease : Mother, Other: Father (), Mother Admission Physical Exam BHS - Vital Signs Vital Signs: Vital Signs - 24 hr 06/23/17 14:49 Temperature 96.4 F L Pulse Rate 90 Respiratory 18 Rate Blood Pressure 116/74 - Physical General Appearance: Yes: Moderate Distress, Tremorous, Irritable, Sweating, Anxious HEENTM: Yes: Normocephalic, JOSE, Pharynx Normal Respiratory: Yes: Lungs Clear, Normal Breath Sounds, No Respiratory Distress, Other (history) Neck: Yes: Within Normal Limits Breast: Yes: Breast Exam Deferred Cardiology: Yes: Within Normal Limits, Regular Rhythm Abdominal: Yes: Within Normal Limits, Normal Bowel Sounds, Non Tender, Soft, Surgical Scar Genitourinary: Yes: Within Normal Limits Back: Yes: Muscle Spasm Musculoskeletal: Yes: Back pain, Muscle Pain Extremities: Yes: Normal Range of Motion, Tremors Neurological: Yes: 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, Fully Oriented, Alert, Motor Strength 5/5 Integumentary: Yes: Dry Lymphatic: Yes: Within Normal Limits - Diagnostic (1) Alcohol dependence with uncomplicated withdrawal Current Visit: No Status: Chronic (2) Alcohol dependence with intoxication Current Visit: Yes Status: Acute (3) Cocaine dependence Current Visit: No Status: Chronic Qualifiers: Substance use status: uncomplicated Qualified Code(s): F14.20 - Cocaine dependence, uncomplicated (4) Fracture of right ankle Current Visit: No Status: Acute Qualifiers: Encounter type: initial encounter (5) Insomnia Current Visit: No Status: Acute (6) Cannabis dependence Current Visit: No Status: Chronic (7) Chronic knee pain Current Visit: No Status: Chronic Qualifiers: Laterality: unspecified laterality Qualified Code(s): M25.569 - Pain in unspecified knee; G89.29 - Other chronic pain; G89.29 - Other chronic pain (8) Hypertension Current Visit: No Status: Chronic Qualifiers: Hypertension type: essential hypertension Qualified Code(s): I10 - Essential (primary) hypertension (9) Old cerebrovascular accident (CVA) without late effect Current Visit: No Status: Chronic (10) Syncope Current Visit: Yes Status: Acute (11) Pain in both knees Current Visit: Yes Status: Acute (12) Edema of both legs Current Visit: Yes Status: Acute Cleared for Admission S - Detox or Rehab [facility] Level of Care: Medically Managed Detox Regimen/Protocol: Librium [facility] Breath Alcohol Content Breath Alcohol Content: 0.312 Urine Pregancy Test - Result Urine Test Results: Negative- NO Line Present Urine Drug Screen - Results Drug Screen Negative: No Urine Drug Screen Results: THC-Marijuana, BZO-Benzodiazepines
[2017-06-23] MEDS ORDERED: MAG HYDROX/AL HYDROX/SIMETH 30 ML UNIT-DOSE CUP PO PRN (17:55)
[2017-06-23] MEDS ORDERED: NICOTINE POLACRILEX 2 MG GUM BC PRN (17:55)
[2017-06-23] MEDS ORDERED: MENTHOL/PHENOL 1 EACH UD MM PRN (17:55)
[2017-06-23] MEDS ORDERED: chlordiazePOXIDE HCL 25 MG CAPSULE PO PRN (17:55)
[2017-06-23] MEDS ORDERED: LOPERAMIDE HCL 2 MG CAPSULE PO PRN (17:55)
[2017-06-23] MEDS ORDERED: chlordiazePOXIDE HCL 25 MG CAPSULE PO ONE (17:55)
[2017-06-23] MEDS ORDERED: IBUPROFEN 400 MG TABLET (FP) PO PRN (17:55)
[2017-06-23] MEDS ORDERED: P-EPHED 60MG/TRIPROLIDI 2.5MG TABLET PO PRN (17:55)
[2017-06-23] MEDS ORDERED: MAGNESIUM HYDROX 2400MG/30ML ORAL SUSPENSION 30 ML CUP PO PRN (17:55)
[2017-06-23] MEDS ORDERED: hydrOXYzine PAMOATE 25 MG CAPSULE (FP) PO PRN (17:55)
[2017-06-23] MEDS ORDERED: ACETAMINOPHEN 325 MG TABLET (FP) PO PRN (17:55)
[2017-06-23] MEDS ORDERED: guaiFENesin/D-METHORPHAN HB 10 ML UNIT-DOSE CUPS PO PRN (17:55)
[2017-06-23] MEDS ORDERED: MAGNESIUM CITRATE 300 ML BOTTLE PO PRN (17:55)
[2017-06-23] MEDS: NICOTINE 21 MG/24 HOURS TOPICAL PATCH TD SCH (18:11)
[2017-06-23] MEDS: chlordiazePOXIDE HCL 25 MG CAPSULE PO SCH (22:17)
[2017-06-23] MEDS: THIAMINE HCL 100 MG TABLET (FP) PO SCH (22:17)
[2017-06-24] MEDS: chlordiazePOXIDE HCL 25 MG CAPSULE PO SCH ×4 (05:15→22:23)
--- NOTE | 2017-06-24 07:45 | CONSULT ---
[facility] Psychiatric Consult - Data Date of interview: 06/24/17 Admission source: [facility] Identifying data: This is 46 years old female ruth ann [facility] psychiatric hospitalization history ionhtoxzicated with: Cannabis, Alc ohol and Cocaine Substance Abuse History: Smoking history: Never smoked. Have you smoked in the past 12 months: No. Aproximately how many cigarettes per day: 0. Cigars Per Day: 0. Hx Chewing Tobacco Use: No. - Substance & Tx. History. Hx Alcohol Use : Yes. Hx Substance Use: Yes. Substance Use Type: Alcohol, Cocaine, Marijuana. Hx Substance Use Treatment: Yes ([facility] 06/04/17 to 06/08/17). - Substances Abused. Alcohol. Route: Oral. Frequency: Daily. Amount used: 8 of 22 ozs of beer. Age of first use: 18. Date of Last Use: 06/23/17. Cocaine. Route: Smoking. Frequency: 1-3 times last 30 days. Amount used: 20$ . Age of first use: 25. Date of Last Use: 06/23/17. Marijuana/Hashish. Route: Smoking. Frequency: Daily. Amount used: 25$. Age of first use: 18. Date of Last Use: 06/23/17 Medical History: Old CVA history, Syncope history, Right ankle fracture historuy , HTN, Edema lower extrenities. Psychiatric History: Oatient report history of depression and insomnia, reports taking prior to adm,ission: Seroquel 100mg po hqs Physical/Sexual Abuse/Trauma History: Denies Additional Comment: Seroquel 100mg po hqs Mental Status Exam - Mental Status Exam Alert and Oriented to: Person Cognitive Function: Fair Patient Appearance: Unkempt Mood: Sad Patient Behavior: Cooperative Speech Pattern: Appropriate Voice Loudness: Mildly Soft/Quiet Thought Process: Goal Oriented Thought Disorder: Being Controlled Hallucinations: Denies Suicidal Ideation: Denies Homicidal Ideation: Denies Insight/Judgement: Fair Sleep: Difficulty falling asleep Appetite: Fair Muscle strength/Tone: Mild Hypotonicity Gait/Station: Shuffling Additional Comments: Seroquel 100mg po hqs Psychiatric Findings - Problem List ([place] 1, 2,3) (1) Alcohol dependence with intoxication Current Visit: Yes Status: Acute (2) Drug-induced mood disorder Current Visit: No Status: Acute (3) Alcohol dependence with uncomplicated withdrawal Current Visit: No Status: Chronic (4) Anxiety and depression Current Visit: No Status: Chronic (5) Cannabis dependence Current Visit: No Status: Chronic (6) Cocaine dependence Current Visit: No Status: Chronic Qualifiers: Substance use status: uncomplicated Qualified Code(s): F14.20 - Cocaine dependence, uncomplicated - Initial Treatment Plan Initial Treatment Plan: Seroquel 100mg po hqs
[2017-06-24 10:04] LABS: MCH 33.5 pg (25.7-33.7); MEAN CELL VOLUME 101.4 fl (80-96); MEAN PLT VOLUME 8.4 fl (7.5-11.1); PLATELET COUNT 209 K/MM3 (134-434); WHITE BLOOD COUNT 4.1 K/mm3 (4.0-10.0)
[2017-06-24 10:26] LABS: ALBUMIN 3.3 g/dl (3.4-5.0); ALK PHOS 114 U/L (45-117); ANION GAP 7 (8-16); BILIRUBIN,TOTAL 0.2 mg/dL (0.2-1.0); CALCIUM 8.3 mg/dL (8.5-10.1); CO2 29 mmol/L (21-32); CREATININE 0.6 mg/dL (0.55-1.02); GLUCOSE,RANDOM 87 mg/dL (74-106); SGOT/AST 35 U/L (15-37); SGPT/ALT 25 U/L (12-78); TOT PROT 8.2 g/dl (6.4-8.2)
[2017-06-24] MEDS: NICOTINE 21 MG/24 HOURS TOPICAL PATCH TD SCH (10:35)
[2017-06-24] MEDS: amLODIPine BESYLATE 5 MG TABLET (FP) PO SCH (10:35)
[2017-06-24] MEDS: PRENATAL VITAMINS W/ FOLIC ACID TABLET (FP) PO SCH (10:35)
[2017-06-24 15:51] LABS: URINE APPEARANCE CLOUDY; URINE BILIRUBIN NEGATIVE (NEGATIVE); URINE BLOOD NEGATIVE (NEGATIVE); URINE COLOR YELLOW; URINE GLUCOSE (UA) NEGATIVE (NEGATIVE); URINE KETONE NEGATIVE (NEGATIVE); URINE NITRITE POSITIVE (NEGATIVE); URINE PROTEIN NEGATIVE (NEGATIVE); URINE UROBILINOGEN NEGATIVE mg/dL (0.2-1.0)
[2017-06-24 16:51] LABS: URINE BACTERIA RARE /hpf (NONE SEEN); URINE WBC 22 /hpf (3-5)
[2017-06-24 21:04] LABS: URINE LEUK ESTERASE 3+ (NEGATIVE)
[2017-06-24] MEDS: QUEtiapine FUMARATE 100 MG TABLET (FP) PO SCH (22:23)
[2017-06-24] MEDS: THIAMINE HCL 100 MG TABLET (FP) PO SCH (22:23)
--- NOTE | 2017-06-25 01:02 | EKG ---
Test Reason : Blood Pressure : / mmHG Vent. Rate : 095 BPM Atrial Rate : 095 BPM P-R Int : 194 ms QRS Dur : 090 ms QT Int : 400 ms P-R-T Axes : 079 090 078 degrees QTc Int : 502 ms NORMAL SINUS RHYTHM PROLONGED QT ABNORMAL ECG WHEN COMPARED WITH ECG OF 05-JUN-2017 01:26, VENT. RATE HAS INCREASED Confirmed by CHANTELLE CONROY MD ([id number]) on 06/25/2017 1:02:41 AM Referred By: Confirmed By:CHANTELLE CONROY MD
--- NOTE | 2017-06-25 01:02 | EKG ---
Test Reason : Blood Pressure : / mmHG Vent. Rate : 081 BPM Atrial Rate : 081 BPM P-R Int : 170 ms QRS Dur : 088 ms QT Int : 422 ms P-R-T Axes : 004 086 079 degrees QTc Int : 490 ms NORMAL SINUS RHYTHM T WAVE ABNORMALITY, CONSIDER ANTERIOR ISCHEMIA PROLONGED QT ABNORMAL ECG WHEN COMPARED WITH ECG OF 23-JUN-2017 17:48, T WAVE INVERSION NOW EVIDENT IN ANTERIOR LEADS Confirmed by RAFIQ HENDERSON, CHANTELLE ([id number]) on 06/25/2017 1:01:56 AM Referred By: Confirmed By:CHANTELLE CONROY MD
[2017-06-25] MEDS: chlordiazePOXIDE HCL 25 MG CAPSULE PO SCH ×3 (05:52→17:33)
[2017-06-25] MEDS: amLODIPine BESYLATE 5 MG TABLET (FP) PO SCH (10:38)
[2017-06-25] MEDS: NICOTINE 21 MG/24 HOURS TOPICAL PATCH TD SCH (10:38)
[2017-06-25] MEDS: PRENATAL VITAMINS W/ FOLIC ACID TABLET (FP) PO SCH (10:38)
--- NOTE | 2017-06-25 11:31 | PN ---
S CIWA - CIWA Score Nausea/Vomitin Muscle Tremors: 3 Anxiety: 3 Agitation: 3 Paroxysmal Sweats: 3 Orientation: 0-Oriented Tacttile Disturbances: 1-Very Mild Itch/Numbness Auditory Disturbances: 0-None Visual Disturbances: 0-None Headache: 1-Very Mild CIWA-Ar Total Score: 17 [facility] Progress Note (SOAP) Subjective: nausea, sweats, interrupted sleep, anxiety, tremors Objective: 06/25/17 11:28 Vital Signs - 8 hr 06/25/17 06/25/17 06:00 10:00 Temperature 97.9 F 98.8 F Pulse Rate 81 96 H Respiratory 18 18 Rate Blood Pressure 118/80 137/88 Laboratory Tests 06/24/17 06/24/17 06/24/17 07:00 07:00 07:00 WBC 4.1 RBC 3.42 L Hgb 11.4 Hct 34.7 MCV 101.4 H MCH 33.5 MCHC 33.0 RDW 15.0 Plt Count 209 D MPV 8.4 Manual Slide Review No Result Required. Sodium 136 Potassium 3.6 Chloride 100 D Carbon Dioxide 29 D Anion Gap 7 L BUN 6 L D Creatinine 0.6 D Creat Clearance w eGFR > 60 Random Glucose 87 D Calcium 8.3 L Total Bilirubin 0.2 D AST 35 D ALT 25 D Alkaline Phosphatase 114 Total Protein 8.2 Albumin 3.3 L Urine Color Urine Appearance Urine pH Ur Specific [place] Urine Protein Urine Glucose (UA) Urine Ketones Urine Blood Urine Nitrite Urine Bilirubin Urine Urobilinogen Ur Leukocyte Esterase Urine WBC (Auto) Urine RBC (Auto) Ur Epithelial Cells Urine Bacteria RPR Titer Nonreactive 06/24/17 10:20 WBC RBC Hgb Hct MCV MCH MCHC RDW Plt Count MPV Manual Slide Review Sodium Potassium Chloride Carbon Dioxide Anion Gap BUN Creatinine Creat Clearance w eGFR Random Glucose Calcium Total Bilirubin AST ALT Alkaline Phosphatase Total Protein Albumin Urine Color Yellow Urine Appearance Cloudy Urine pH 7.0 D Ur Specific [place] 1.009 Urine Protein Negative Urine Glucose (UA) Negative Urine Ketones Negative Urine Blood Negative Urine Nitrite Positive Urine Bilirubin Negative Urine Urobilinogen Negative Ur Leukocyte Esterase 3+ H Urine WBC (Auto) 22 Urine RBC (Auto) None Ur Epithelial Cells Moderate Urine Bacteria Rare RPR Titer abnormal u/a, macrocytosis, hypoalbuminemia Assessment: 06/25/17 11:29 withdrawal sx - cont detox, fluids, low alb/malnutirtion 2/2 substance use - ensure, macrosytosis d/c illicit drug and alcohol use.
[2017-06-25] MEDS: QUEtiapine FUMARATE 100 MG TABLET (FP) PO SCH (22:17)
[2017-06-25] MEDS: THIAMINE HCL 100 MG TABLET (FP) PO SCH (22:17)
[2017-06-25] MEDS: chlordiazePOXIDE 5 MG CAPSULE PO SCH (22:17)
[2017-06-26] MEDS: chlordiazePOXIDE 5 MG CAPSULE PO SCH ×3 (05:56→16:29)
[2017-06-26] MEDS: amLODIPine BESYLATE 5 MG TABLET (FP) PO SCH (10:27)
[2017-06-26] MEDS: PRENATAL VITAMINS W/ FOLIC ACID TABLET (FP) PO SCH (10:27)
[2017-06-26] MEDS: NICOTINE 21 MG/24 HOURS TOPICAL PATCH TD SCH (10:27)
--- NOTE | 2017-06-26 11:47 | PN ---
S CIWA - CIWA Score Nausea/Vomitin-No Nausea/No Vomiting Muscle Tremors: 4-Moderate,w/Arms Extend Anxiety: 4-Mod. Anxious/Guarded Agitation: 4-Moderately Restless Paroxysmal Sweats: 3 Orientation: 0-Oriented Tacttile Disturbances: 0-None Auditory Disturbances: 0-None Visual Disturbances: 0-None Headache: 0-None Present CIWA-Ar Total Score: 15 [facility] Progress Note (SOAP) Subjective: sweats shakes interrupted sleep agitation Objective: 06/24/17 11:47 Vital Signs (72 hours) 06/23/17 06/23/17 06/24/17 14:49 21:39 00:30 Temperature 96.4 F L 98.8 F Pulse Rate 90 103 H Respiratory 18 20 16 Rate Blood Pressure 116/74 130/87 06/24/17 06/24/17 06/24/17 03:30 06:06 09:27 Temperature 98.2 F 99.5 F Pulse Rate 77 87 Respiratory 1 L 18 18 Rate Blood Pressure 133/90 133/93 06/24/17 06/24/17 06/24/17 13:12 18:16 21:56 Temperature 98.1 F 98.2 F 98.2 F Pulse Rate 80 85 80 Respiratory 18 20 18 Rate Blood Pressure 152/103 150/107 151/100 06/25/17 06/25/17 06/25/17 00:30 05:30 06:00 Temperature 99.5 F 97.9 F Pulse Rate 85 81 Respiratory 18 18 18 Rate Blood Pressure 103/71 118/80 06/25/17 06/25/17 06/25/17 10:00 13:30 22:38 Temperature 98.8 F 98.2 F 98.6 F Pulse Rate 96 H 100 H 91 H Respiratory 18 18 20 Rate Blood Pressure 137/88 132/98 127/93 06/26/17 06/26/17 06/26/17 00:30 03:30 06:00 Temperature 97.9 F Pulse Rate 73 Respiratory 18 18 18 Rate Blood Pressure 110/73 06/26/17 10:00 Temperature 98.6 F Pulse Rate 94 H Respiratory 18 Rate Blood Pressure 136/93 Laboratory Tests 06/24/17 06/24/17 06/24/17 07:00 07:00 07:00 WBC 4.1 RBC 3.42 L Hgb 11.4 Hct 34.7 MCV 101.4 H MCH 33.5 MCHC 33.0 RDW 15.0 Plt Count 209 D MPV 8.4 Manual Slide Review No Result Required. Sodium 136 Potassium 3.6 Chloride 100 D Carbon Dioxide 29 D Anion Gap 7 L BUN 6 L D Creatinine 0.6 D Creat Clearance w eGFR > 60 Random Glucose 87 D Calcium 8.3 L Total Bilirubin 0.2 D AST 35 D ALT 25 D Alkaline Phosphatase 114 Total Protein 8.2 Albumin 3.3 L Urine Color Urine Appearance Urine pH Ur Specific [place] Urine Protein Urine Glucose (UA) Urine Ketones Urine Blood Urine Nitrite Urine Bilirubin Urine Urobilinogen Ur Leukocyte Esterase Urine WBC (Auto) Urine RBC (Auto) Ur Epithelial Cells Urine Bacteria RPR Titer Nonreactive 06/24/17 10:20 WBC RBC Hgb Hct MCV MCH MCHC RDW Plt Count MPV Manual Slide Review Sodium Potassium Chloride Carbon Dioxide Anion Gap BUN Creatinine Creat Clearance w eGFR Random Glucose Calcium Total Bilirubin AST ALT Alkaline Phosphatase Total Protein Albumin Urine Color Yellow Urine Appearance Cloudy Urine pH 7.0 D Ur Specific [place] 1.009 Urine Protein Negative Urine Glucose (UA) Negative Urine Ketones Negative Urine Blood Negative Urine Nitrite Positive Urine Bilirubin Negative Urine Urobilinogen Negative Ur Leukocyte Esterase 3+ H Urine WBC (Auto) 22 Urine RBC (Auto) None Ur Epithelial Cells Moderate Urine Bacteria Rare RPR Titer aaox3 ambulating no acute distress Assessment: 06/24/17 11:48 withdrawal sx Plan: continue detox increase fluids
--- NOTE | 2017-06-26 11:50 | PN ---
[facility] Progress Note (SOAP) Subjective: sweats agitation Objective: 06/26/17 11:49 Vital Signs Temperature 98.6 F 06/26/17 10:00 Pulse Rate 94 H 06/26/17 10:00 Respiratory Rate 18 06/26/17 10:00 Blood Pressure 136/93 06/26/17 10:00 O2 Sat by Pulse Oximetry (%) aaox3 ambulating no acute distress Assessment: 06/26/17 11:50 mild withdrawal sx Plan: continue detox increase fluids d/c in am
[2017-06-26] MEDS: THIAMINE HCL 100 MG TABLET (FP) PO SCH (22:20)
[2017-06-26] MEDS: chlordiazePOXIDE HCL 10 MG CAPSULE PO SCH (22:20)
[2017-06-26] MEDS: QUEtiapine FUMARATE 100 MG TABLET (FP) PO SCH (22:20)
[2017-06-27] MEDS: chlordiazePOXIDE HCL 10 MG CAPSULE PO SCH (05:50)
--- NOTE | 2017-06-27 08:37 | DS ---
[facility] Detox Discharge Summary Admission Date: 06/23/17 Discharge Date: 06/27/17 - History Present History: Alcohol Dependence, Cannabis Dependence, Cocaine Dependence, Pcp Dependence - Physical Exam Results Vital Signs: Vital Signs Temperature 97.2 F L 06/27/17 06:10 Pulse Rate 80 06/27/17 06:10 Respiratory Rate 18 06/27/17 06:10 Blood Pressure 115/73 06/27/17 06:10 O2 Sat by Pulse Oximetry (%) - Treatment Hospital Course: Detox Protocol Followed, Detoxed Safely, Responded well, Discharged Condition Good, Rehab Referral Accepted - Medication Discharge Medications: Ambulatory Orders Amlodipine Besylate [Norvasc -] 5 mg PO DAILY #30 tablet 06/08/17 Quetiapine Fumarate [Seroquel] 100 mg PO HS #30 tablet 06/24/17 - Diagnosis (1) Syncope Current Visit: Yes Status: Acute (2) Drug-induced mood disorder Current Visit: No Status: Chronic (3) Insomnia Current Visit: No Status: Acute (4) Weight loss Current Visit: No Status: Acute (5) Alcohol dependence with uncomplicated withdrawal Current Visit: Yes Status: Chronic (6) Anxiety and depression Current Visit: No Status: Chronic (7) Cannabis dependence Current Visit: No Status: Chronic (8) Chronic knee pain Current Visit: Yes Status: Chronic Qualifiers: Laterality: unspecified laterality Qualified Code(s): M25.569 - Pain in unspecified knee; G89.29 - Other chronic pain; G89.29 - Other chronic pain (9) Cocaine dependence Current Visit: No Status: Chronic Qualifiers: Substance use status: uncomplicated Qualified Code(s): F14.20 - Cocaine dependence, uncomplicated (10) Hypertension Current Visit: Yes Status: Chronic Qualifiers: Hypertension type: essential hypertension Qualified Code(s): I10 - Essential (primary) hypertension (11) Old cerebrovascular accident (CVA) without late effect Current Visit: No Status: Chronic (12) PCP abuse Current Visit: Yes Status: Chronic - AMA Did Patient Leave Against Medical Advice: No
[2017-06-27 09:24] VITALS: BP 118/76; PULSE 87; TEMP 97.3
[2017-06-27] MEDS: amLODIPine BESYLATE 5 MG TABLET (FP) PO SCH (09:28)
[2017-06-27] MEDS: PRENATAL VITAMINS W/ FOLIC ACID TABLET (FP) PO SCH (09:28)
== END 2017-06-27 09:38 | disposition home or self-care (01) | DRG 774 ==
LOC: YASAS 14:47 → Y6N 16:16
PROVIDERS: ADMIT Internal Medicine; ATTEND Internal Medicine
PROC: HZ2ZZZZ Detoxification Services for Substance Abuse Treatment (ICD-10-PCS; principal; 2017-06-23)
DX: F10.230 Alcohol dependence with withdrawal, uncomplicated (principal); F14.20 Cocaine dependence, uncomplicated; F12.20 Cannabis dependence, uncomplicated; F16.10 Hallucinogen abuse, uncomplicated; F19.24 Other psychoactive substance dependence with psychoactive substance-induced mood disorder; F41.8 Other specified anxiety disorders; N39.0 Urinary tract infection, site not specified; I10 Essential (primary) hypertension; G47.00 Insomnia, unspecified; K21.9 Gastro-esophageal reflux disease without esophagitis; D75.89 Other specified diseases of blood and blood-forming organs; E88.09 Other disorders of plasma-protein metabolism, not elsewhere classified; R01.1 Cardiac murmur, unspecified; K76.0 Fatty (change of) liver, not elsewhere classified; R60.0 Localized edema; M13.862 Other specified arthritis, left knee; M13.861 Other specified arthritis, right knee; M25.562 Pain in left knee; M25.561 Pain in right knee; G89.29 Other chronic pain; Z86.73 Personal history of transient ischemic attack (TIA), and cerebral infarction without residual deficits; Z87.898 Personal history of other specified conditions; Z86.79 Personal history of other diseases of the circulatory system
CPT/HCPCS: 36415; 80053; 81003; 81015; 85027; 86593; 93005; 93010

== ENCOUNTER 2017-08-03 16:37 | Inpatient (IN) | payer OTHER ==
[2017-08-03 17:25] VITALS: BMI 19.1
--- NOTE | 2017-08-03 17:52 | HP ---
CIWA Score - CIWA Score Nausea/Vomitin Muscle Tremors: 3 Anxiety: 3 Agitation: 3 Paroxysmal Sweats: 2 Orientation: 0-Oriented Tacttile Disturbances: 2-Mild Itch/Numbness/Burn Auditory Disturbances: 2-Mild Harshness/Frighten Visual Disturbances: 0-None Headache: 2-Mild CIWA-Ar Total Score: 20 Admission ROS BHS - HPI Chief Complaint: i need help to stop drinking alcohol and marijuana Allergies/Adverse Reactions: Allergies Allergy/AdvReac Type Severity Reaction Status Date / Time coconut oil Allergy Severe Verified 06/23/17 18:58 No Known Drug Allergies Allergy Severe Verified 06/23/17 18:58 History of Present Illness: this 46 years old female with alcohol and marijuana dependence,seeking detox, last to 06/27/17 attending [facility] last 3 weeks ago insomnia multiple admissions in detox longest period of sobriety 5 years - Ebola screening Have you traveled outside of the country in the last 21 days: No (N) Have you had contact with anyone from an Ebola affected area: No Have you been sick,other than usual withdrawal symptoms: No Do you have a fever: No - Review of Systems Constitutional: Loss of Appetite, Malaise, Night Sweats, Changes in sleep, Weakness, Unintentional Wgt. Loss EENT: reports: Nose Congestion Respiratory: reports: No Symptoms reported Cardiac: reports: No Symptoms Reported GI: reports: Diarrhea, Nausea, Vomiting, Abdominal cramping : reports: No Symptoms Reported Integumentary: reports: Dryness Neuro: reports: No Symptoms reported, Headache, Tremors Endocrine: reports: No Symptoms Reported Hematology: reports: No Symptoms Reported Psychiatric: reports: Anxious (insomnia), Depressed Patient History - Patient Medical History Hx Anemia: Yes (no med) Hx Asthma: No Hx Chronic Obstructive Pulmonary Disease (COPD): No Hx Cancer: No Hx Cardiac Disorders: No Hx Congestive Heart Failure: No Hx Hypertension: Yes (on med) Hx Hypercholesterolemia: No Hx Pacemaker: No HX Cerebrovascular Accident: Yes (2002 RESOLVED WITHOUT ANY COMPLICATIONS) Hx Seizures: No Hx Dementia: No Hx Diabetes: No Hx Gastrointestinal Disorders: No Hx Liver Disease: Yes (FATTY LIVER) Hx Genitourinary Disorders: No Hx Sexually Transmitted Disorders: No Hx Renal Disease (ESRD): No Hx Thyroid Disease: No Hx Human Immunodeficiency Virus (HIV): No (negative last 05/14) Hx Hepatitis C: No (negative) Hx Depression: Yes Hx Suicide Attempt: No Hx Bipolar Disorder: No Hx Schizophrenia: No Other Medical History: no suicidal,no homicidal - Patient Surgical History Past Surgical History: Yes Hx Neurologic Surgery: No Hx Cataract Extraction: No Hx Cardiac Surgery: No Hx Lung Surgery: No Hx Breast Surgery: No Hx Breast Biopsy: No Hx Abdominal Surgery: Yes (hernia repair) Hx Appendectomy: No Hx Cholecystectomy: No Hx Genitourinary Surgery: No Hx Section: No Hx Orthopedic Surgery: Yes (right knee, 07/29/2015 [facility]) Hx Hysterectomy: No Other Surgical History: R inguinal hernia repair Anesthesia Reaction: No - PPD History Previous Implant?: Yes Documented Results: Negative w/proof Date: 09/30/16 Results: 0 mm PPD to be Administered?: No - Reproductive History Patient is a Female of Child Bearing Age (11 -55 yrs old): Yes Last Menstrual Period: 06/27/15 Patient : No - Smoking Cessation Smoking history: Never smoked Have you smoked in the past 12 months: No Aproximately how many cigarettes per day: 0 Cigars Per Day: 0 Hx Chewing Tobacco Use: No - Substance & Tx. History Hx Alcohol Use: Yes Hx Substance Use: Yes Substance Use Type: Alcohol, Marijuana Hx Substance Use Treatment: Yes ([facility] 06/23/17 to 06/27/17) - Substances Abused Alcohol Route: Oral Frequency: Daily Amount used: 6 packs of 12 ozs of beer Age of first use: 18 Date of Last Use: 08/03/17 Marijuana/Hashish Route: Smoking Frequency: Daily Amount used: 10$ Age of first use: 18 Date of Last Use: 08/02/17 Cocaine Route: Smoking Frequency: 1-3 times last 30 days Amount used: 50$ Age of first use: 25 Date of Last Use: 08/01/17 Family Disease History - Family Disease History Family Disease History: Diabetes: Mother (htn .asthma ,), Heart Disease : Mother, Other: Father (), Mother Admission Physical Exam BHS - Vital Signs Vital Signs: Vital Signs - 24 hr 08/03/17 17:21 Temperature 98.3 F Pulse Rate 128 H Respiratory 20 Rate Blood Pressure 141/100 - Physical General Appearance: Yes: Moderate Distress, Tremorous, Irritable, Sweating, Anxious HEENTM: Yes: JOSE, Pharynx Normal, Tm's normal Respiratory: Yes: Within Normal Limits, Lungs Clear, Normal Breath Sounds Neck: Yes: Within Normal Limits, Supple, Trachea in good position Breast: Yes: Breast Exam Deferred Cardiology: Yes: Within Normal Limits, Regular Rhythm, Regular Rate, S1, S2 Abdominal: Yes: Within Normal Limits, Normal Bowel Sounds, Non Tender, Flat, Soft Genitourinary: Yes: Within Normal Limits Back: Yes: Within Normal Limits, Muscle Spasm Extremities: Yes: Tremors Neurological: Yes: Within Normal Limits, Alert, Motor Strength 5/5 Integumentary: Yes: Dry Lymphatic: Yes: Within Normal Limits - Diagnostic (1) Alcohol dependence with uncomplicated withdrawal Current Visit: No Status: Chronic (2) Insomnia Current Visit: No Status: Acute (3) Syncope Current Visit: No Status: Acute (4) Weight loss Current Visit: No Status: Acute (5) Cannabis dependence Current Visit: No Status: Chronic (6) Chronic knee pain Current Visit: No Status: Chronic Qualifiers: Laterality: unspecified laterality Qualified Code(s): M25.569 - Pain in unspecified knee; G89.29 - Other chronic pain; G89.29 - Other chronic pain (7) Hypertension Current Visit: No Status: Chronic Qualifiers: Hypertension type: essential hypertension Qualified Code(s): I10 - Essential (primary) hypertension (8) Old cerebrovascular accident (CVA) without late effect Current Visit: No Status: Chronic (9) History of right knee joint replacement Current Visit: Yes Status: Acute Cleared for Admission [facility] - Detox or Rehab [facility] Level of Care: Medically Managed Detox Regimen/Protocol: Librium [facility] Breath Alcohol Content Breath Alcohol Content: 0.241 Urine Pregancy Test - Result Urine Test Results: Negative- NO Line Present Urine Drug Screen - Results Drug Screen Negative: No Urine Drug Screen Results: THC-Marijuana, MONISHA-Cocaine, BZO-Benzodiazepines
[2017-08-03] MEDS ORDERED: MAGNESIUM HYDROX 2400MG/30ML ORAL SUSPENSION 30 ML CUP PO PRN (18:04)
[2017-08-03] MEDS ORDERED: chlordiazePOXIDE HCL 25 MG CAPSULE PO PRN (18:04)
[2017-08-03] MEDS ORDERED: MAGNESIUM CITRATE 300 ML BOTTLE PO PRN (18:04)
[2017-08-03] MEDS ORDERED: LOPERAMIDE HCL 2 MG CAPSULE PO PRN (18:04)
[2017-08-03] MEDS ORDERED: P-EPHED 60MG/TRIPROLIDI 2.5MG TABLET PO PRN (18:04)
[2017-08-03] MEDS ORDERED: MAG HYDROX/AL HYDROX/SIMETH 30 ML UNIT-DOSE CUP PO PRN (18:04)
[2017-08-03] MEDS ORDERED: ACETAMINOPHEN 325 MG TABLET (FP) PO PRN (18:04)
[2017-08-03] MEDS ORDERED: hydrOXYzine PAMOATE 25 MG CAPSULE (FP) PO PRN (18:04)
[2017-08-03] MEDS ORDERED: IBUPROFEN 400 MG TABLET (FP) PO PRN (18:04)
[2017-08-03] MEDS ORDERED: chlordiazePOXIDE HCL 25 MG CAPSULE PO ONE (18:04)
[2017-08-03] MEDS: amLODIPine BESYLATE 5 MG TABLET (FP) PO SCH (19:17)
[2017-08-03 22:14] LABS: URINE APPEARANCE SLCLOUDY; URINE BILIRUBIN NEGATIVE (NEGATIVE); URINE BLOOD NEGATIVE (NEGATIVE); URINE COLOR STRAW; URINE GLUCOSE (UA) NEGATIVE (NEGATIVE); URINE KETONE NEGATIVE (NEGATIVE); URINE NITRITE NEGATIVE (NEGATIVE); URINE PROTEIN NEGATIVE (NEGATIVE); URINE UROBILINOGEN NEGATIVE mg/dL (0.2-1.0)
[2017-08-03 22:18] LABS: URINE LEUK ESTERASE 1+ (NEGATIVE)
[2017-08-03] MEDS: chlordiazePOXIDE HCL 25 MG CAPSULE PO SCH (22:23)
[2017-08-03 22:25] LABS: EPI CELLS FEW /HPF (FEW); URINE BACTERIA RARE /hpf (NONE SEEN)
[2017-08-03] MEDS: THIAMINE HCL 100 MG TABLET (FP) PO SCH (22:25)
[2017-08-04] MEDS: chlordiazePOXIDE HCL 25 MG CAPSULE PO SCH ×4 (05:45→22:16)
[2017-08-04] MEDS: PRENATAL VITAMINS W/ FOLIC ACID TABLET (FP) PO SCH (10:17)
[2017-08-04] MEDS: amLODIPine BESYLATE 5 MG TABLET (FP) PO SCH (10:17)
[2017-08-04 10:22] LABS: HEMATOCRIT 37.4 % (32.4-45.2); HEMOGLOBIN 12.2 GM/dL (10.7-15.3); MCH 33.4 pg (25.7-33.7); MCHC 32.6 g/dl (32.0-36.0); MEAN CELL VOLUME 102.3 fl (80-96); PLATELET COUNT 223 K/MM3 (134-434); RBC 3.66 M/mm3 (3.60-5.2); RDW 14.4 % (11.6-15.6)
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
[2017-08-04 10:23] LABS: ALBUMIN 3.3 g/dl (3.4-5.0); ANION GAP 7 (8-16); BLOOD UREA NITROGEN 11 mg/dL (7-18); CALCIUM 8.7 mg/dL (8.5-10.1); CHLORIDE 104 mmol/L (98-107); CO2 28 mmol/L (21-32); GLUCOSE,RANDOM 79 mg/dL (74-106); POTASSIUM 3.5 mmol/L (3.5-5.1); SGOT/AST 45 U/L (15-37); SGPT/ALT 38 U/L (12-78); SODIUM 139 mmol/L (136-145)
[2017-08-04 10:25] LABS: ALK PHOS 114 U/L (45-117); BILIRUBIN,TOTAL 0.4 mg/dL (0.2-1.0); CREATININE 0.8 mg/dL (0.55-1.02); TOT PROT 8.2 g/dl (6.4-8.2)
--- NOTE | 2017-08-04 11:38 | EKG ---
Test Reason : Blood Pressure : / mmHG Vent. Rate : 099 BPM Atrial Rate : 099 BPM P-R Int : 174 ms QRS Dur : 090 ms QT Int : 358 ms P-R-T Axes : 082 091 079 degrees QTc Int : 459 ms POOR DATA QUALITY, INTERPRETATION MAY BE ADVERSELY AFFECTED NORMAL SINUS RHYTHM RIGHTWARD AXIS WHEN COMPARED WITH ECG OF 24-JUN-2017 09:16, T WAVE INVERSION NO LONGER EVIDENT IN ANTERIOR LEADS Confirmed by GAMAL MCNULTY MD ([id number]) on 08/04/2017 11:38:14 AM Referred By: Confirmed By:GAMAL MCNULTY MD
--- NOTE | 2017-08-04 12:31 | PN ---
[facility] CIWA - CIWA Score Nausea/Vomitin-Mild Nausea/No Vomiting Muscle Tremors: 4-Moderate,w/Arms Extend Anxiety: 4-Mod. Anxious/Guarded Agitation: 4-Moderately Restless Paroxysmal Sweats: 1-Minimal Palms Moist Orientation: 0-Oriented Tacttile Disturbances: 0-None Auditory Disturbances: 0-None Visual Disturbances: 0-None Headache: 0-None Present CIWA-Ar Total Score: 14 S Progress Note (SOAP) Subjective: tremor anxiety restlessness agitation Objective: 08/04/17 12:29 Vital Signs Temperature 97.7 F 08/04/17 10:00 Pulse Rate 88 08/04/17 10:00 Respiratory Rate 20 08/04/17 10:00 Blood Pressure 124/89 08/04/17 10:00 O2 Sat by Pulse Oximetry (%) Laboratory Last Values WBC 3.0 K/mm3 (4.0-10.0) L 08/04/17 07:40 RBC 3.66 M/mm3 (3.60-5.2) 08/04/17 07:40 Hgb 12.2 GM/dL (10.7-15.3) 08/04/17 07:40 Hct 37.4 % (32.4-45.2) 08/04/17 07:40 MCV 102.3 fl (80-96) H 08/04/17 07:40 MCH 33.4 pg (25.7-33.7) 08/04/17 07:40 MCHC 32.6 g/dl (32.0-36.0) 08/04/17 07:40 RDW 14.4 % (11.6-15.6) 08/04/17 07:40 Plt Count 223 K/MM3 (134-434) 08/04/17 07:40 MPV 9.0 fl (7.5-11.1) 08/04/17 07:40 Sodium 139 mmol/L (136-145) 08/04/17 07:40 Potassium 3.5 mmol/L (3.5-5.1) 08/04/17 07:40 Chloride 104 mmol/L (98-107) 08/04/17 07:40 Carbon Dioxide 28 mmol/L (21-32) 08/04/17 07:40 Anion Gap 7 (8-16) L 08/04/17 07:40 BUN 11 mg/dL (7-18) D 08/04/17 07:40 Creatinine 0.8 mg/dL (0.55-1.02) D 08/04/17 07:40 Creat Clearance w eGFR > 60 (>60) 08/04/17 07:40 Random Glucose 79 mg/dL (74-106) 08/04/17 07:40 Calcium 8.7 mg/dL (8.5-10.1) 08/04/17 07:40 Total Bilirubin 0.4 mg/dL (0.2-1.0) D 08/04/17 07:40 AST 45 U/L (15-37) H D 08/04/17 07:40 ALT 38 U/L (12-78) D 08/04/17 07:40 Alkaline Phosphatase 114 U/L (45-117) 08/04/17 07:40 Total Protein 8.2 g/dl (6.4-8.2) 08/04/17 07:40 Albumin 3.3 g/dl (3.4-5.0) L 08/04/17 07:40 Urine Color Straw 08/03/17 21:00 Urine Appearance Slcloudy 08/03/17 21:00 Urine pH 6.0 (5.0-8.0) 08/03/17 21:00 Ur Specific [place] 1.004 (1.001-1.035) 08/03/17 21:00 Urine Protein Negative (NEGATIVE) 08/03/17 21:00 Urine Glucose (UA) Negative (NEGATIVE) 08/03/17 21:00 Urine Ketones Negative (NEGATIVE) 08/03/17 21:00 Urine Blood Negative (NEGATIVE) 08/03/17 21:00 Urine Nitrite Negative (NEGATIVE) 08/03/17 21:00 Urine Bilirubin Negative (NEGATIVE) 08/03/17 21:00 Urine Urobilinogen Negative mg/dL (0.2-1.0) 08/03/17 21:00 Ur Leukocyte Esterase 1+ (NEGATIVE) H D 08/03/17 21:00 Urine WBC (Auto) 5 /hpf (3-5) 08/03/17 21:00 Urine RBC (Auto) 1 /hpf (0-3) 08/03/17 21:00 Ur Epithelial Cells Few /HPF (FEW) 08/03/17 21:00 Urine Bacteria Rare /hpf (NONE SEEN) 08/03/17 21:00 RPR Titer Nonreactive (NONREACTIVE) 08/04/17 07:40 lab noted Assessment: 08/04/17 12:30 withdrawal sx Plan: continue detox
[2017-08-04] MEDS: MENTHOL/PHENOL 1 EACH UD MM PRN (17:42)
[2017-08-04] MEDS: THIAMINE HCL 100 MG TABLET (FP) PO SCH (22:15)
[2017-08-04] MEDS: QUEtiapine FUMARATE 50 MG TABLET PO SCH (22:16)
[2017-08-05] MEDS: chlordiazePOXIDE HCL 25 MG CAPSULE PO SCH ×3 (05:39→17:35)
[2017-08-05] MEDS: PRENATAL VITAMINS W/ FOLIC ACID TABLET (FP) PO SCH (10:27)
[2017-08-05] MEDS: amLODIPine BESYLATE 5 MG TABLET (FP) PO SCH (10:27)
--- NOTE | 2017-08-05 10:41 | PN ---
S CIWA - CIWA Score Nausea/Vomitin-No Nausea/No Vomiting Muscle Tremors: 4-Moderate,w/Arms Extend Anxiety: 3 Agitation: 3 Paroxysmal Sweats: 3 Orientation: 0-Oriented Tacttile Disturbances: 0-None Auditory Disturbances: 0-None Visual Disturbances: 0-None Headache: 0-None Present CIWA-Ar Total Score: 13 S Progress Note (SOAP) Subjective: nasal congestion sweats shakes dry skin anxiety Objective: 08/05/17 10:40 Vital Signs Temperature 98 F 08/05/17 06:09 Pulse Rate 64 08/05/17 06:09 Respiratory Rate 16 08/05/17 06:09 Blood Pressure 101/63 08/05/17 06:09 O2 Sat by Pulse Oximetry (%) Laboratory Tests 08/03/17 08/04/17 08/04/17 21:00 07:40 07:40 WBC 3.0 L RBC 3.66 Hgb 12.2 Hct 37.4 MCV 102.3 H MCH 33.4 MCHC 32.6 RDW 14.4 Plt Count 223 MPV 9.0 Sodium 139 Potassium 3.5 Chloride 104 Carbon Dioxide 28 Anion Gap 7 L BUN 11 D Creatinine 0.8 D Creat Clearance w eGFR > 60 Random Glucose 79 Calcium 8.7 Total Bilirubin 0.4 D AST 45 H D ALT 38 D Alkaline Phosphatase 114 Total Protein 8.2 Albumin 3.3 L Urine Color Straw Urine Appearance Slcloudy Urine pH 6.0 Ur Specific [place] 1.004 Urine Protein Negative Urine Glucose (UA) Negative Urine Ketones Negative Urine Blood Negative Urine Nitrite Negative Urine Bilirubin Negative Urine Urobilinogen Negative Ur Leukocyte Esterase 1+ H D Urine WBC (Auto) 5 Urine RBC (Auto) 1 Ur Epithelial Cells Few Urine Bacteria Rare RPR Titer 08/04/17 07:40 WBC RBC Hgb Hct MCV MCH MCHC RDW Plt Count MPV Sodium Potassium Chloride Carbon Dioxide Anion Gap BUN Creatinine Creat Clearance w eGFR Random Glucose Calcium Total Bilirubin AST ALT Alkaline Phosphatase Total Protein Albumin Urine Color Urine Appearance Urine pH Ur Specific [place] Urine Protein Urine Glucose (UA) Urine Ketones Urine Blood Urine Nitrite Urine Bilirubin Urine Urobilinogen Ur Leukocyte Esterase Urine WBC (Auto) Urine RBC (Auto) Ur Epithelial Cells Urine Bacteria RPR Titer Nonreactive aaox3 ambulating no acute distress Assessment: 08/05/17 10:43 withdrawal sx Plan: continue detox increase fluids eucerin ocean spray
[2017-08-05] MEDS ORDERED: SODIUM CHLORIDE NASAL SPRAY 44 ML BOTTLE NS PRN (10:44)
[2017-08-05] MEDS: AMMONIUM LACTATE 12% LOTION 225 GM BOTTLE TP SCH ×2 (11:25→22:13)
[2017-08-05] MEDS: chlordiazePOXIDE 5 MG CAPSULE PO SCH (22:13)
[2017-08-05] MEDS: THIAMINE HCL 100 MG TABLET (FP) PO SCH (22:14)
[2017-08-05] MEDS: QUEtiapine FUMARATE 50 MG TABLET PO SCH (22:14)
[2017-08-06] MEDS: chlordiazePOXIDE 5 MG CAPSULE PO SCH ×3 (05:19→17:18)
[2017-08-06] MEDS ORDERED: AMOX TR/POT CLAV 500MG/125MG TABLETS (FP) PO ONE (10:36)
[2017-08-06] MEDS: PRENATAL VITAMINS W/ FOLIC ACID TABLET (FP) PO SCH (10:44)
[2017-08-06] MEDS: amLODIPine BESYLATE 5 MG TABLET (FP) PO SCH (10:44)
[2017-08-06] MEDS ORDERED: AMOX TR/POT CLAV 500MG/125MG TABLETS (FP) PO SCH (10:45)
--- NOTE | 2017-08-06 10:46 | PN ---
B[facility] Progress Note (SOAP) Subjective: sore throat sinus discomfort Objective: 08/06/17 10:47 Vital Signs Temperature 99 F 08/06/17 10:00 Pulse Rate 90 08/06/17 10:00 Respiratory Rate 18 08/06/17 10:00 Blood Pressure 128/85 08/06/17 10:00 O2 Sat by Pulse Oximetry (%) aaox3 ambulating no acute distress Assessment: 08/06/17 10:47 withdrawal sx Plan: continue detox d/c in am amoxicillin 500mg bid x 7days nasal spray prn
[2017-08-06] MEDS: guaiFENesin/D-METHORPHAN HB 10 ML UNIT-DOSE CUPS PO PRN ×2 (10:47→22:06)
[2017-08-06] MEDS: MENTHOL/PHENOL 1 EACH UD MM PRN (10:49)
[2017-08-06] MEDS: AMMONIUM LACTATE 12% LOTION 225 GM BOTTLE TP SCH ×2 (11:26→22:06)
[2017-08-06] MEDS: CLOTRIMAZOLE 10 MG TROCHE (FP) PO SCH ×3 (14:33→22:05)
[2017-08-06] MEDS: AMOX TR/POT CLAV 500MG/125MG TABLETS (FP) PO SCH (17:18)
[2017-08-06] MEDS: QUEtiapine FUMARATE 50 MG TABLET PO SCH (22:06)
[2017-08-06] MEDS: chlordiazePOXIDE HCL 10 MG CAPSULE PO SCH (22:06)
[2017-08-06] MEDS: THIAMINE HCL 100 MG TABLET (FP) PO SCH (22:06)
[2017-08-07] MEDS: CLOTRIMAZOLE 10 MG TROCHE (FP) PO SCH ×2 (05:41→09:19)
[2017-08-07] MEDS: chlordiazePOXIDE HCL 10 MG CAPSULE PO SCH ×2 (05:41→10:13)
[2017-08-07 06:30] VITALS: BP 110/63; PULSE 68; TEMP 98.4
[2017-08-07] MEDS: AMOX TR/POT CLAV 500MG/125MG TABLETS (FP) PO SCH (07:10)
[2017-08-07] MEDS: PRENATAL VITAMINS W/ FOLIC ACID TABLET (FP) PO SCH (09:19)
[2017-08-07] MEDS: amLODIPine BESYLATE 5 MG TABLET (FP) PO SCH (09:22)
[2017-08-07] MEDS: AMMONIUM LACTATE 12% LOTION 225 GM BOTTLE TP SCH (09:23)
--- NOTE | 2017-08-07 09:49 | DS ---
[facility] Detox Discharge Summary Admission Date: 08/03/17 Discharge Date: 08/07/17 - History Present History: Alcohol Dependence, Cannabis Dependence, Cocaine Dependence, Sedative Dependence Pertinent Past History: Alcohol depence Cocaine dependence Marijuana dependence HTN - Physical Exam Results Vital Signs: Vital Signs Temperature 98.4 F 08/07/17 06:29 Pulse Rate 68 08/07/17 06:29 Respiratory Rate 16 08/07/17 06:29 Blood Pressure 110/63 08/07/17 06:29 O2 Sat by Pulse Oximetry (%) Pertinent Admission Physical Exam Findings: withdrawal sx Laboratory Last Values WBC 3.0 K/mm3 (4.0-10.0) L 08/04/17 07:40 RBC 3.66 M/mm3 (3.60-5.2) 08/04/17 07:40 Hgb 12.2 GM/dL (10.7-15.3) 08/04/17 07:40 Hct 37.4 % (32.4-45.2) 08/04/17 07:40 MCV 102.3 fl (80-96) H 08/04/17 07:40 MCH 33.4 pg (25.7-33.7) 08/04/17 07:40 MCHC 32.6 g/dl (32.0-36.0) 08/04/17 07:40 RDW 14.4 % (11.6-15.6) 08/04/17 07:40 Plt Count 223 K/MM3 (134-434) 08/04/17 07:40 MPV 9.0 fl (7.5-11.1) 08/04/17 07:40 Sodium 139 mmol/L (136-145) 08/04/17 07:40 Potassium 3.5 mmol/L (3.5-5.1) 08/04/17 07:40 Chloride 104 mmol/L (98-107) 08/04/17 07:40 Carbon Dioxide 28 mmol/L (21-32) 08/04/17 07:40 Anion Gap 7 (8-16) L 08/04/17 07:40 BUN 11 mg/dL (7-18) D 08/04/17 07:40 Creatinine 0.8 mg/dL (0.55-1.02) D 08/04/17 07:40 Creat Clearance w eGFR > 60 (>60) 08/04/17 07:40 Random Glucose 79 mg/dL (74-106) 08/04/17 07:40 Calcium 8.7 mg/dL (8.5-10.1) 08/04/17 07:40 Total Bilirubin 0.4 mg/dL (0.2-1.0) D 08/04/17 07:40 AST 45 U/L (15-37) H D 08/04/17 07:40 ALT 38 U/L (12-78) D 08/04/17 07:40 Alkaline Phosphatase 114 U/L (45-117) 08/04/17 07:40 Total Protein 8.2 g/dl (6.4-8.2) 08/04/17 07:40 Albumin 3.3 g/dl (3.4-5.0) L 08/04/17 07:40 Urine Color Straw 08/03/17 21:00 Urine Appearance Slcloudy 08/03/17 21:00 Urine pH 6.0 (5.0-8.0) 08/03/17 21:00 Ur Specific [place] 1.004 (1.001-1.035) 08/03/17 21:00 Urine Protein Negative (NEGATIVE) 08/03/17 21:00 Urine Glucose (UA) Negative (NEGATIVE) 08/03/17 21:00 Urine Ketones Negative (NEGATIVE) 08/03/17 21:00 Urine Blood Negative (NEGATIVE) 08/03/17 21:00 Urine Nitrite Negative (NEGATIVE) 08/03/17 21:00 Urine Bilirubin Negative (NEGATIVE) 08/03/17 21:00 Urine Urobilinogen Negative mg/dL (0.2-1.0) 08/03/17 21:00 Ur Leukocyte Esterase 1+ (NEGATIVE) H D 08/03/17 21:00 Urine WBC (Auto) 5 /hpf (3-5) 08/03/17 21:00 Urine RBC (Auto) 1 /hpf (0-3) 08/03/17 21:00 Ur Epithelial Cells Few /HPF (FEW) 08/03/17 21:00 Urine Bacteria Rare /hpf (NONE SEEN) 08/03/17 21:00 RPR Titer Nonreactive (NONREACTIVE) 08/04/17 07:40 Labs noted - Treatment Hospital Course: Detox Protocol Followed, Detoxed Safely, Responded well, Discharged Condition Good, Rehab Referral Accepted Patient has Accepted a Rehab Referral to: [facility] rehab - Medication Discharge Medications: Ambulatory Orders Amlodipine Besylate [Norvasc -] 5 mg PO DAILY 08/03/17 Quetiapine Fumarate [Seroquel -] 100 mg PO HS 08/03/17 Quetiapine Fumarate [Seroquel] 100 mg PO HS #30 tablet 08/04/17 Amlodipine Besylate [Norvasc -] 5 mg PO DAILY #30 tablet 08/07/17 Amox-Tr/K Cl [Augmentin 500-125mg Tablet -] 1 tab PO BID@0800,1730 #14 tablet Clotrimazole [Mycelex -] 10 mg PO 5XD #90 shabbir 08/07/17 - Diagnosis (1) Alcohol dependence with uncomplicated withdrawal Current Visit: Yes Status: Chronic (2) Cannabis dependence Current Visit: Yes Status: Chronic (3) Cocaine dependence Current Visit: No Status: Acute Qualifiers: Substance use status: uncomplicated Qualified Code(s): F14.20 - Cocaine dependence, uncomplicated (4) Hypertension Current Visit: No Status: Chronic Qualifiers: Hypertension type: essential hypertension Qualified Code(s): I10 - Essential (primary) hypertension - AMA Did Patient Leave Against Medical Advice: No
== END 2017-08-07 09:50 | disposition home or self-care (01) | DRG 774 ==
LOC: YASAS 16:37 → Y6N 18:01
PROVIDERS: ADMIT Internal Medicine; ATTEND Internal Medicine
PROC: HZ2ZZZZ Detoxification Services for Substance Abuse Treatment (ICD-10-PCS; principal; 2017-08-03)
DX: F13.230 Sedative, hypnotic or anxiolytic dependence with withdrawal, uncomplicated (principal); F10.230 Alcohol dependence with withdrawal, uncomplicated; F14.20 Cocaine dependence, uncomplicated; F12.20 Cannabis dependence, uncomplicated; F16.10 Hallucinogen abuse, uncomplicated; F19.24 Other psychoactive substance dependence with psychoactive substance-induced mood disorder; F19.282 Other psychoactive substance dependence with psychoactive substance-induced sleep disorder; I10 Essential (primary) hypertension; Z86.73 Personal history of transient ischemic attack (TIA), and cerebral infarction without residual deficits; Z59.0 Homelessness
CPT/HCPCS: 36415; 80053; 81003; 81015; 85027; 86593; 93005; 93010

== ENCOUNTER 2017-11-29 08:16 | Inpatient (IN) | payer OTHER ==
[2017-11-29 09:46] VITALS: BMI 17.9
--- NOTE | 2017-11-29 11:18 | HP ---
CIWA Score - CIWA Score Nausea/Vomitin Muscle Tremors: 2 Anxiety: 3 Agitation: 1-Slight > Activity Paroxysmal Sweats: 2 Orientation: 0-Oriented Tacttile Disturbances: 0-None Auditory Disturbances: 0-None Visual Disturbances: 0-None Headache: 2-Mild CIWA-Ar Total Score: 12 Admission [facility] Chief Complaint: ETOH withdrawal symptoms. Allergies/Adverse Reactions: Allergies Allergy/AdvReac Type Severity Reaction Status Date / Time beeswax Allergy Severe Difficulty Verified 11/29/17 09:51 Breathing coconut oil Allergy Severe Verified 11/29/17 09:44 No Known Drug Allergies Allergy Severe Verified 11/29/17 09:44 History of Present Illness: Patients presents with ETOH withdrawal symptoms. Has history of detox services in past at [facility]. Last detox in 07/2017. Pt started drinking at age 18 as well as smoking marajuana and cocaine. Drinks 12 pack of beer daily. Smokes 3-4 blunts a day of Marajuana and time used was last night. Last time she used cocaine 2 days ago. Amount of cocaine she smokes varies depending on finances. Denies having seizures from withdrawal from ETOH use. Has hx of depression and HTN. Denies SI/HI and suicide attempts. Exam Limitations: Intoxication - Ebola screening Have you traveled outside of the country in the last 21 days: No (N) Have you had contact with anyone from an Ebola affected area: No Have you been sick,other than usual withdrawal symptoms: No Do you have a fever: No - Review of Systems Constitutional: Night Sweats, Changes in sleep, Unexplained wgt Loss EENT: reports: No Symptoms Reported Respiratory: reports: No Symptoms reported Cardiac: reports: No Symptoms Reported GI: reports: Nausea, Poor Fluid Intake, Vomiting, Abdominal cramping : reports: No Symptoms Reported Musculoskeletal: reports: No Symptoms Reported Integumentary: reports: Sweating Neuro: reports: Headache, Tremors Endocrine: reports: Unexplained Weight Loss Hematology: reports: No Symptoms Reported Psychiatric: reports: Anxious, Depressed Patient History - Patient Medical History Hx Anemia: Yes (no med) Hx Asthma: No Hx Chronic Obstructive Pulmonary Disease (COPD): No Hx Cancer: No Hx Cardiac Disorders: No Hx Congestive Heart Failure: No Hx Hypertension: Yes Hx Hypercholesterolemia: No Hx Pacemaker: No HX Cerebrovascular Accident: Yes (2002 RESOLVED WITHOUT ANY COMPLICATIONS) Hx Seizures: No Hx Dementia: No Hx Diabetes: No Hx Gastrointestinal Disorders: No Hx Liver Disease: Yes (FATTY LIVER) Hx Genitourinary Disorders: No Hx Sexually Transmitted Disorders: No Hx Renal Disease (ESRD): No Hx Thyroid Disease: No Hx Human Immunodeficiency Virus (HIV): No (negative last 05/14) Hx Hepatitis C: No (negative) Hx Depression: Yes Hx Suicide Attempt: No Hx Bipolar Disorder: No Hx Schizophrenia: No - Patient Surgical History Past Surgical History: Yes Hx Neurologic Surgery: No Hx Cataract Extraction: No Hx Cardiac Surgery: No Hx Lung Surgery: No Hx Breast Surgery: No Hx Breast Biopsy: No Hx Abdominal Surgery: Yes (hernia repair) Hx Appendectomy: No Hx Cholecystectomy: No Hx Genitourinary Surgery: No Hx Section: No Hx Orthopedic Surgery: Yes (right knee, 07/29/2015 [facility]) Hx Hysterectomy: No Other Surgical History: R inguinal hernia repair Anesthesia Reaction: No - PPD History Documented Results: Negative w/proof Date: 10/12/16 Results: negative PPD to be Administered?: Yes - Reproductive History Patient is a Female of Child Bearing Age (11 -55 yrs old): Yes Last Menstrual Period: 06/27/15 Patient : No - Smoking Cessation Smoking history: Never smoked Have you smoked in the past 12 months: No Aproximately how many cigarettes per day: 0 Cigars Per Day: 0 Hx Chewing Tobacco Use: No - Substance & Tx. History Hx Alcohol Use: Yes Hx Substance Use: Yes Substance Use Type: Alcohol, Cocaine, Marijuana Hx Substance Use Treatment: Yes - Substances Abused Alcohol Route: Oral Frequency: Daily Amount used: 6 (22 ounces ) bottles of beer Age of first use: 18 Date of Last Use: 11/29/17 Marijuana/Hashish Route: Smoking Frequency: Daily Amount used: 2-3 blunts daily Age of first use: 16 Date of Last Use: 11/29/17 Cocaine Route: Smoking Frequency: 1-3 times last 30 days Amount used: 2-3 bags Age of first use: 25 Date of Last Use: 11/28/17 Family Disease History - Family Disease History Family Disease History: Diabetes: Mother (htn .asthma ,), Heart Disease : Mother, Other: Father (), Mother Admission Physical Exam BHS - Vital Signs Vital Signs: Vital Signs - 24 hr 11/29/17 09:43 Temperature 98.7 F Pulse Rate 115 H Respiratory 20 Rate Blood Pressure 116/74 - Physical General Appearance: Yes: Intoxicated, Thin, Sweating, Anxious HEENTM: Yes: Hearing grossly Normal, Normocephalic, Normal Voice, JOSE, Pharynx Normal Respiratory: Yes: Chest Non-Tender, Lungs Clear, Normal Breath Sounds, No Respiratory Distress, No Accessory Muscle Use Neck: Yes: No masses,lesions,Nodules, Supple, Trachea in good position Breast: Yes: Breast Exam Deferred Cardiology: Yes: Regular Rhythm, Regular Rate, S1, S2 Abdominal: Yes: Normal Bowel Sounds, Non Tender, Flat, Soft Genitourinary: Yes: Within Normal Limits Back: Yes: Within Normal Limits, Normal Inspection Musculoskeletal: Yes: Within Normal Limits Extremities: Yes: Non-Tender, Tremors Neurological: Yes: 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 NML intact, Fully Oriented, Alert, Motor Strength 5/5, Depressed Affect Integumentary: Yes: Moist Lymphatic: Yes: Within Normal Limits - Diagnostic (1) Cocaine dependence Current Visit: No Status: Acute Qualifiers: Substance use status: uncomplicated Qualified Code(s): F14.20 - Cocaine dependence, uncomplicated (2) Alcohol dependence with uncomplicated withdrawal Current Visit: Yes Status: Acute (3) Anxiety and depression Current Visit: Yes Status: Chronic (4) Cannabis dependence Current Visit: Yes Status: Chronic (5) Hypertension Current Visit: Yes Status: Chronic Qualifiers: Hypertension type: essential hypertension Qualified Code(s): I10 - Essential (primary) hypertension Cleared for Admission [facility] - Detox or Rehab [facility] Level of Care: Medically Managed Detox Regimen/Protocol: Librium [facility] Breath Alcohol Content Breath Alcohol Content: 0.126 Urine Pregancy Test - Result Urine Test Results: Negative- NO Line Present Urine Drug Screen - Results Drug Screen Negative: No Urine Drug Screen Results: MONISHA-Cocaine, TCA-Tricyclic Antidepress
[2017-11-29] MEDS ORDERED: MAGNESIUM CITRATE 300 ML BOTTLE PO PRN (11:27)
[2017-11-29] MEDS ORDERED: LOPERAMIDE HCL 2 MG CAPSULE PO PRN (11:27)
[2017-11-29] MEDS ORDERED: ACETAMINOPHEN 325 MG TABLET (FP) PO PRN (11:27)
[2017-11-29] MEDS ORDERED: hydrOXYzine PAMOATE 50 MG CAPSULE (FP) PO PRN (11:27)
[2017-11-29] MEDS ORDERED: MAGNESIUM HYDROX 2400MG/30ML ORAL SUSPENSION 30 ML CUP PO PRN (11:27)
[2017-11-29] MEDS ORDERED: P-EPHED 60MG/TRIPROLIDI 2.5MG TABLET PO PRN (11:27)
[2017-11-29] MEDS ORDERED: guaiFENesin/D-METHORPHAN HB 10 ML UNIT-DOSE CUPS PO PRN (11:27)
[2017-11-29] MEDS ORDERED: MAG HYDROX/AL HYDROX/SIMETH 30 ML UNIT-DOSE CUP PO PRN (11:27)
[2017-11-29] MEDS ORDERED: MENTHOL/PHENOL 1 EACH UD MM PRN (11:27)
[2017-11-29] MEDS ORDERED: IBUPROFEN 400 MG TABLET (FP) PO PRN (11:27)
[2017-11-29] MEDS ORDERED: chlordiazePOXIDE HCL 25 MG CAPSULE PO PRN (11:29)
[2017-11-29] MEDS ORDERED: chlordiazePOXIDE HCL 25 MG CAPSULE PO ONE (12:15)
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
[2017-11-29] MEDS: chlordiazePOXIDE HCL 25 MG CAPSULE PO SCH ×2 (17:36→22:16)
[2017-11-29] MEDS: MELATONIN 5 MG TABLETS PO PRN (22:15)
[2017-11-29] MEDS: QUEtiapine FUMARATE 50 MG TABLET PO SCH (22:15)
[2017-11-29] MEDS: THIAMINE HCL 100 MG TABLET (FP) PO SCH (22:16)
[2017-11-30] MEDS: chlordiazePOXIDE HCL 25 MG CAPSULE PO SCH ×4 (05:31→22:29)
[2017-11-30] MEDS: amLODIPine BESYLATE 5 MG TABLET (FP) PO SCH (10:44)
[2017-11-30] MEDS: PRENATAL VITAMINS W/ FOLIC ACID TABLET (FP) PO SCH (10:44)
[2017-11-30 10:49] LABS: CHLORIDE 101 mmol/L (98-107); POTASSIUM 3.4 mmol/L (3.5-5.1); SODIUM 134 mmol/L (136-145)
[2017-11-30 11:01] LABS: ALBUMIN 4.1 g/dl (3.4-5.0); ALK PHOS 154 U/L (45-117); ANION GAP 13 (8-16); BILIRUBIN,TOTAL 0.3 mg/dL (0.2-1.0); BLOOD UREA NITROGEN 12 mg/dL (7-18); CALCIUM 8.6 mg/dL (8.5-10.1); CO2 20 mmol/L (21-32); CREATININE 1.3 mg/dL (0.55-1.02); GLUCOSE,RANDOM 96 mg/dL (74-106); SGOT/AST 61 U/L (15-37); SGPT/ALT 29 U/L (12-78); TOT PROT 9.5 g/dl (6.4-8.2)
[2017-11-30 11:03] LABS: HEMATOCRIT 40.7 % (32.4-45.2); HEMOGLOBIN 13.9 GM/dL (10.7-15.3); MCH 33.5 pg (25.7-33.7); MCHC 34.1 g/dl (32.0-36.0); MEAN CELL VOLUME 98.2 fl (80-96); MEAN PLT VOLUME 8.8 fl (7.5-11.1); PLATELET COUNT 183 K/MM3 (134-434); RBC 4.14 M/mm3 (3.60-5.2); RDW 13.9 % (11.6-15.6); WHITE BLOOD COUNT 4.6 K/mm3 (4.0-10.0)
--- NOTE | 2017-11-30 14:21 | PN ---
S CIWA - CIWA Score Nausea/Vomitin Muscle Tremors: 2 Anxiety: 2 Agitation: 2 Paroxysmal Sweats: 2 Orientation: 0-Oriented Tacttile Disturbances: 1-Very Mild Itch/Numbness Auditory Disturbances: 0-None Visual Disturbances: 1-Very Mild Sensitivity Headache: 2-Mild CIWA-Ar Total Score: 14 S Progress Note (SOAP) Subjective: Tremors, interrupted sleep, restlessness and body aches Objective: 11/30/17 14:21 Vital Signs - 8 hr 11/30/17 11/30/17 11/30/17 06:30 11:17 14:13 Temperature 97.7 F 96.1 F L 98.2 F Pulse Rate 79 91 H 106 H Respiratory 18 18 20 Rate Blood Pressure 124/76 128/87 117/91 Laboratory Last Values WBC 4.6 K/mm3 (4.0-10.0) D 11/30/17 06:00 RBC 4.14 M/mm3 (3.60-5.2) 11/30/17 06:00 Hgb 13.9 GM/dL (10.7-15.3) D 11/30/17 06:00 Hct 40.7 % (32.4-45.2) 11/30/17 06:00 MCV 98.2 fl (80-96) H 11/30/17 06:00 MCH 33.5 pg (25.7-33.7) 11/30/17 06:00 MCHC 34.1 g/dl (32.0-36.0) 11/30/17 06:00 RDW 13.9 % (11.6-15.6) 11/30/17 06:00 Plt Count 183 K/MM3 (134-434) 11/30/17 06:00 MPV 8.8 fl (7.5-11.1) 11/30/17 06:00 Sodium 134 mmol/L (136-145) L 11/30/17 06:00 Potassium 3.4 mmol/L (3.5-5.1) L 11/30/17 06:00 Chloride 101 mmol/L (98-107) 11/30/17 06:00 Carbon Dioxide 20 mmol/L (21-32) L 11/30/17 06:00 Anion Gap 13 (8-16) 11/30/17 06:00 BUN 12 mg/dL (7-18) 11/30/17 06:00 Creatinine 1.3 mg/dL (0.55-1.02) H 11/30/17 06:00 Creat Clearance w eGFR 43.90 (>60) 11/30/17 06:00 Random Glucose 96 mg/dL (74-106) 11/30/17 06:00 Calcium 8.6 mg/dL (8.5-10.1) 11/30/17 06:00 Total Bilirubin 0.3 mg/dL (0.2-1.0) D 11/30/17 06:00 AST 61 U/L (15-37) H 11/30/17 06:00 ALT 29 U/L (12-78) 11/30/17 06:00 Alkaline Phosphatase 154 U/L (45-117) H 11/30/17 06:00 Total Protein 9.5 g/dl (6.4-8.2) H 11/30/17 06:00 Albumin 4.1 g/dl (3.4-5.0) 11/30/17 06:00 RPR Titer Nonreactive (NONREACTIVE) 11/30/17 06:00 Labs noted Assessment: 11/30/17 14:21 Withdrawal sx Plan: Continue detox
--- NOTE | 2017-11-30 14:40 | EKG ---
Test Reason : Blood Pressure : / mmHG Vent. Rate : 096 BPM Atrial Rate : 096 BPM P-R Int : 156 ms QRS Dur : 088 ms QT Int : 444 ms P-R-T Axes : 035 086 076 degrees QTc Int : 560 ms NORMAL SINUS RHYTHM PROLONGED QT ABNORMAL ECG WHEN COMPARED WITH ECG OF 03-AUG-2017 19:25, QT HAS LENGTHENED Confirmed by MD Julius, Suhail ([id number]) on 11/30/2017 2:40:12 PM Referred By: Confirmed By:Suhail Madrid MD
[2017-11-30] MEDS: QUEtiapine FUMARATE 50 MG TABLET PO SCH (22:29)
[2017-11-30] MEDS: THIAMINE HCL 100 MG TABLET (FP) PO SCH (22:29)
[2017-12-01] MEDS: chlordiazePOXIDE HCL 25 MG CAPSULE PO SCH ×2 (06:09→10:42)
[2017-12-01] MEDS: PRENATAL VITAMINS W/ FOLIC ACID TABLET (FP) PO SCH (10:40)
[2017-12-01] MEDS: amLODIPine BESYLATE 5 MG TABLET (FP) PO SCH (10:40)
--- NOTE | 2017-12-01 16:48 | PN ---
S CIWA - CIWA Score Nausea/Vomitin Muscle Tremors: 3 Anxiety: 2 Agitation: 2 Paroxysmal Sweats: 2 Orientation: 0-Oriented Tacttile Disturbances: 1-Very Mild Itch/Numbness Auditory Disturbances: 0-None Visual Disturbances: 0-None Headache: 1-Very Mild CIWA-Ar Total Score: 13 S Progress Note (SOAP) Subjective: Patient refused to speak with automobile service writer Objective: 12/01/17 16:43 Last Vital Signs Temp Pulse Resp BP Pulse Ox 98.6 F 87 17 97/61 12/01/17 13:29 12/01/17 13:29 12/01/17 13:29 12/01/17 13:29 Hypotension: asymptomatic, encouraged to drink lots of water for hydration Laboratory Tests 11/30/17 11/30/17 11/30/17 06:00 06:00 06:00 WBC 4.6 D RBC 4.14 Hgb 13.9 D Hct 40.7 MCV 98.2 H MCH 33.5 MCHC 34.1 RDW 13.9 Plt Count 183 MPV 8.8 Sodium 134 L Potassium 3.4 L Chloride 101 Carbon Dioxide 20 L Anion Gap 13 BUN 12 Creatinine 1.3 H Creat Clearance w eGFR 43.90 Random Glucose 96 Calcium 8.6 Total Bilirubin 0.3 D AST 61 H ALT 29 Alkaline Phosphatase 154 H Total Protein 9.5 H Albumin 4.1 RPR Titer Nonreactive Labs reviewed: K 3.4, prerenal azotemia Assessment: 12/01/17 16:43 Withdrawal symptoms Noted with mild hypokalemia and prerenal azotemia Plan: Continue detox Hypokalemia: K DUR 40meq PO x 1 dose, repeat K level Prerenal azotemia: encouraged PO hydration (water), repeat BMP
[2017-12-01] MEDS ORDERED: POTASSIUM CHLORIDE TABS 20 MEQ TABLET.ER (FP) PO ONE (16:50)
[2017-12-01] MEDS: chlordiazePOXIDE 5 MG CAPSULE PO SCH ×2 (17:10→22:29)
[2017-12-01 17:46] LABS: URINE APPEARANCE TURBID; URINE BILIRUBIN NEGATIVE (<2.0 mg/dL); URINE COLOR AMBER; URINE GLUCOSE (UA) NEGATIVE (NEGATIVE); URINE KETONE NEGATIVE (NEGATIVE); URINE NITRITE POSITIVE (NEGATIVE); URINE UROBILINOGEN NEGATIVE mg/dL (0.2-1.0)
[2017-12-01 17:52] LABS: URINE LEUK ESTERASE 1+ (NEGATIVE); URINE PROTEIN 1+ (NEGATIVE)
[2017-12-01 17:54] LABS: EPI CELLS MODERATE /HPF (FEW); URINE BACTERIA RARE /hpf (NONE SEEN); URINE MUCUS MANY; YEAST RARE
[2017-12-01] MEDS: QUEtiapine FUMARATE 50 MG TABLET PO SCH (22:28)
[2017-12-01] MEDS: THIAMINE HCL 100 MG TABLET (FP) PO SCH (22:28)
[2017-12-01] MEDS: MELATONIN 5 MG TABLETS PO PRN (22:29)
[2017-12-02] MEDS: chlordiazePOXIDE 5 MG CAPSULE PO SCH ×2 (06:13→10:43)
[2017-12-02 09:48] LABS: ANION GAP 2 (8-16); BLOOD UREA NITROGEN 13 mg/dL (7-18); CALCIUM 8.8 mg/dL (8.5-10.1); CHLORIDE 106 mmol/L (98-107); CO2 33 mmol/L (21-32); CREATININE 0.7 mg/dL (0.55-1.02); GLUCOSE,RANDOM 73 mg/dL (74-106); POTASSIUM 4.2 mmol/L (3.5-5.1); SODIUM 141 mmol/L (136-145)
--- NOTE | 2017-12-02 10:17 | PN ---
S Progress Note (SOAP) Subjective: feeling better no tremor less sweat social with peers tolerated food and fluid well Objective: 12/02/17 10:15 Vital Signs Temperature 96.1 F L 12/02/17 06:41 Pulse Rate 79 12/02/17 06:41 Respiratory Rate 18 12/02/17 06:41 Blood Pressure 91/64 12/02/17 06:41 O2 Sat by Pulse Oximetry (%) Laboratory Last Values WBC 4.6 K/mm3 (4.0-10.0) D 11/30/17 06:00 RBC 4.14 M/mm3 (3.60-5.2) 11/30/17 06:00 Hgb 13.9 GM/dL (10.7-15.3) D 11/30/17 06:00 Hct 40.7 % (32.4-45.2) 11/30/17 06:00 MCV 98.2 fl (80-96) H 11/30/17 06:00 MCH 33.5 pg (25.7-33.7) 11/30/17 06:00 MCHC 34.1 g/dl (32.0-36.0) 11/30/17 06:00 RDW 13.9 % (11.6-15.6) 11/30/17 06:00 Plt Count 183 K/MM3 (134-434) 11/30/17 06:00 MPV 8.8 fl (7.5-11.1) 11/30/17 06:00 Sodium 141 mmol/L (136-145) 12/02/17 07:00 Potassium 4.2 mmol/L (3.5-5.1) 12/02/17 07:00 Chloride 106 mmol/L (98-107) 12/02/17 07:00 Carbon Dioxide 33 mmol/L (21-32) H 12/02/17 07:00 Anion Gap 2 (8-16) L 12/02/17 07:00 BUN 13 mg/dL (7-18) 12/02/17 07:00 Creatinine 0.7 mg/dL (0.55-1.02) 12/02/17 07:00 Creat Clearance w eGFR 43.90 (>60) 11/30/17 06:00 Random Glucose 73 mg/dL (74-106) L 05/07/18 07:00 Calcium 8.8 mg/dL (8.5-10.1) 12/02/17 07:00 Total Bilirubin 0.3 mg/dL (0.2-1.0) D 11/30/17 06:00 AST 61 U/L (15-37) H 11/30/17 06:00 ALT 29 U/L (12-78) 11/30/17 06:00 Alkaline Phosphatase 154 U/L (45-117) H 11/30/17 06:00 Total Protein 9.5 g/dl (6.4-8.2) H 11/30/17 06:00 Albumin 4.1 g/dl (3.4-5.0) 11/30/17 06:00 Urine Color Sade 12/01/17:18 Urine Appearance Turbid 12/01/17 09:18 Urine pH 5.0 (5.0-8.0) 12/01/17 09:18 Ur Specific [place] 1.026 (1.001-1.035) 12/01/17 09:18 Urine Protein 1+ (NEGATIVE) H 12/01/17 09:18 Urine Glucose (UA) Negative (NEGATIVE) 12/01/17:18 Urine Ketones Negative (NEGATIVE) 12/01/17 09:18 Urine Blood Negative (NEGATIVE) 12/01/17:18 Urine Nitrite Positive (NEGATIVE) 12/01/17:18 Urine Bilirubin Negative (<2.0 mg/dL) 12/01/17 09:18 Urine Urobilinogen Negative mg/dL (0.2-1.0) 12/01/17 09:18 Ur Leukocyte Esterase 1+ (NEGATIVE) H 12/01/17:18 Urine WBC (Auto) 54 /hpf (3-5) 12/01/17:18 Urine RBC (Auto) 2 /hpf (0-3) 12/01/17 09:18 Ur Epithelial Cells Moderate /HPF (FEW) 12/01/17:18 Urine Bacteria Rare /hpf (NONE SEEN) 12/01/17:18 Urine Mucus Many 12/01/17 09:18 Urine Yeast Rare 12/01/17 09:18 RPR Titer Nonreactive (NONREACTIVE) 11/30/17 06:00 lab noted Assessment: 12/02/17 10:15 mild withdrawal sx Plan: medically supervised detox
[2017-12-02] MEDS: amLODIPine BESYLATE 5 MG TABLET (FP) PO SCH (10:44)
[2017-12-02] MEDS: PRENATAL VITAMINS W/ FOLIC ACID TABLET (FP) PO SCH (10:44)
[2017-12-02] MEDS: chlordiazePOXIDE HCL 10 MG CAPSULE PO SCH ×2 (18:24→22:19)
[2017-12-02] MEDS: MELATONIN 5 MG TABLETS PO PRN (22:19)
[2017-12-02] MEDS: THIAMINE HCL 100 MG TABLET (FP) PO SCH (22:19)
[2017-12-02] MEDS: QUEtiapine FUMARATE 50 MG TABLET PO SCH (22:19)
[2017-12-03] MEDS: chlordiazePOXIDE HCL 10 MG CAPSULE PO SCH (05:32)
[2017-12-03 06:14] VITALS: BP 112/77; PULSE 74; TEMP 97.9
--- NOTE | 2017-12-03 08:35 | DS ---
[facility] Detox Discharge Summary Admission Date: 11/29/17 Discharge Date: 12/03/17 - History Present History: Alcohol Dependence Additional Comments: 47 years old female admitted on 11/29/17 for alcohol withdrawal sx completed detox regimen tolerated well denies alcohol withdrawal sx alert oriented x 3 no acute distress acknowledged aftercare [facility] rehab toward sobriety - Physical Exam Results Vital Signs: Vital Signs Temperature 97.9 F 12/03/17 06:14 Pulse Rate 74 12/03/17 06:14 Respiratory Rate 18 12/03/17 06:14 Blood Pressure 112/77 12/03/17 06:14 O2 Sat by Pulse Oximetry (%) Pertinent Admission Physical Exam Findings: withdraawl sx Vital Signs Temperature 97.9 F 12/03/17 06:14 Pulse Rate 74 12/03/17 06:14 Respiratory Rate 18 12/03/17 06:14 Blood Pressure 112/77 12/03/17 06:14 O2 Sat by Pulse Oximetry (%) Laboratory Last Values WBC 4.6 K/mm3 (4.0-10.0) D 11/30/17 06:00 RBC 4.14 M/mm3 (3.60-5.2) 11/30/17 06:00 Hgb 13.9 GM/dL (10.7-15.3) D 11/30/17 06:00 Hct 40.7 % (32.4-45.2) 11/30/17 06:00 MCV 98.2 fl (80-96) H 11/30/17 06:00 MCH 33.5 pg (25.7-33.7) 11/30/17 06:00 MCHC 34.1 g/dl (32.0-36.0) 11/30/17 06:00 RDW 13.9 % (11.6-15.6) 11/30/17 06:00 Plt Count 183 K/MM3 (134-434) 11/30/17 06:00 MPV 8.8 fl (7.5-11.1) 11/30/17 06:00 Sodium 141 mmol/L (136-145) 12/02/17 07:00 Potassium 4.2 mmol/L (3.5-5.1) 12/02/17 07:00 Chloride 106 mmol/L (98-107) 12/02/17 07:00 Carbon Dioxide 33 mmol/L (21-32) H 12/02/17 07:00 Anion Gap 2 (8-16) L 12/02/17 07:00 BUN 13 mg/dL (7-18) 12/02/17 07:00 Creatinine 0.7 mg/dL (0.55-1.02) 12/02/17 07:00 Creat Clearance w eGFR 43.90 (>60) 11/30/17 06:00 Random Glucose 73 mg/dL (74-106) L 12/02/17 07:00 Calcium 8.8 mg/dL (8.5-10.1) 12/02/17 07:00 Total Bilirubin 0.3 mg/dL (0.2-1.0) D 11/30/17 06:00 AST 61 U/L (15-37) H 11/30/17 06:00 ALT 29 U/L (12-78) 11/30/17 06:00 Alkaline Phosphatase 154 U/L (45-117) H 11/30/17 06:00 Total Protein 9.5 g/dl (6.4-8.2) H 11/30/17 06:00 Albumin 4.1 g/dl (3.4-5.0) 11/30/17 06:00 Urine Color Sade 12/01/17:18 Urine Appearance Turbid 12/01/17 09:18 Urine pH 5.0 (5.0-8.0) 12/01/17 09:18 Ur Specific [place] 1.026 (1.001-1.035) 12/01/17 09:18 Urine Protein 1+ (NEGATIVE) H 12/01/17 09:18 Urine Glucose (UA) Negative (NEGATIVE) 12/01/17:18 Urine Ketones Negative (NEGATIVE) 12/01/17 09:18 Urine Blood Negative (NEGATIVE) 12/01/17:18 Urine Nitrite Positive (NEGATIVE) 12/01/17:18 Urine Bilirubin Negative (<2.0 mg/dL) 12/01/17 09:18 Urine Urobilinogen Negative mg/dL (0.2-1.0) 12/01/17 09:18 Ur Leukocyte Esterase 1+ (NEGATIVE) H 12/01/17 09:18 Urine WBC (Auto) 54 /hpf (3-5) 12/01/17 09:18 Urine RBC (Auto) 2 /hpf (0-3) 12/01/17 09:18 Ur Epithelial Cells Moderate /HPF (FEW) 12/01/17 09:18 Urine Bacteria Rare /hpf (NONE SEEN) 12/01/17 09:18 Urine Mucus Many 12/01/17 09:18 Urine Yeast Rare 12/01/17 09:18 RPR Titer Nonreactive (NONREACTIVE) 11/30/17 06:00 lab noted - Treatment Hospital Course: Detox Protocol Followed, Detoxed Safely, Responded well, Discharged Condition Good, Rehab Referral Accepted Patient has Accepted a Rehab Referral to: [facility] - Medication Discharge Medications: Ambulatory Orders Quetiapine Fumarate [Seroquel -] 100 mg PO HS 08/03/17 Amlodipine Besylate [Norvasc -] 5 mg PO DAILY #30 tablet 12/02/17 - Diagnosis (1) Alcohol dependence with uncomplicated withdrawal Current Visit: Yes Status: Acute (2) Hypertension Current Visit: Yes Status: Chronic Qualifiers: Hypertension type: essential hypertension Qualified Code(s): I10 - Essential (primary) hypertension (3) Weight loss Current Visit: Yes Status: Acute - AMA Did Patient Leave Against Medical Advice: No
== END 2017-12-03 09:29 | disposition home or self-care (01) | DRG 774 ==
LOC: YASAS 08:16 → Y6N 11:32
PROVIDERS: ADMIT Surgery; ATTEND Surgery
PROC: HZ2ZZZZ Detoxification Services for Substance Abuse Treatment (ICD-10-PCS; principal; 2017-11-29)
DX: F10.230 Alcohol dependence with withdrawal, uncomplicated (principal); F14.20 Cocaine dependence, uncomplicated; G47.00 Insomnia, unspecified; M25.569 Pain in unspecified knee; K76.0 Fatty (change of) liver, not elsewhere classified; G89.29 Other chronic pain; Z86.73 Personal history of transient ischemic attack (TIA), and cerebral infarction without residual deficits; Z87.898 Personal history of other specified conditions; Z91.038 Other insect allergy status
CPT/HCPCS: 36415; 80048; 80053; 81003; 81015; 85027; 86593; 93005; 93010

== ENCOUNTER 2018-03-04 18:18 | Emergency (ER) | payer OTHER ==
[2018-03-04 18:33] VITALS: BMI 20.9
--- NOTE | 2018-03-04 18:33 | PDOC ---
Rapid Medical Evaluation Time Seen by Provider: 03/04/18 18:30 Medical Evaluation: Allergies Allergy/AdvReac Type Severity Reaction Status Date / Time beeswax Allergy Severe Difficulty Verified 11/29/17 09:51 Breathing coconut oil Allergy Severe Itching Verified 01/30/18 17:21 No Known Drug Allergies Allergy Severe Verified 11/29/17 09:44 03/04/18 18:30 I have performed a brief in-person evaluation of this patient. The patient presents with a chief complaint of: n/v/d w/ abd pain w/ ? fever. H/ o HTN, congenital heart murmur, ETOH abuse, daily cannibus use Pertinent physical exam findings: intoxicated at triage (last drink and cannibus use minutes ago per pt) I have ordered the following: labs The patient will proceed to the ED for further evaluation. Discharge Disposition - Diagnosis Nausea and vomiting Qualifiers: Vomiting type: unspecified Vomiting Intractability: non-intractable Qualified Code(s): R11.2 - Nausea with vomiting, unspecified - Referrals - Patient Instructions - Post Discharge Activity
[2018-03-04] MEDS ORDERED: SODIUM CHLORIDE 0.9% 500 ML INFUS.BAG IV ONE (22:42)
--- NOTE | 2018-03-04 22:53 | PDOC ---
History of Present Illness - General Chief Complaint: Nausea/Vomiting Stated Complaint: VOMITING Time Seen by Provider: 03/04/18 18:30 - History of Present Illness Initial Comments: 03/04/18 22:56 47 year old female with a PMH of ETOH and cannabis abuse presents with 2 day h/ o abdominal pain. Patient is non-qualifiable, 4/10, diffuse, constant, without any identifiable triggering or relieving factors. Endorses multiple episodes of NBNB emesis and watery, non-bloody diarrhea. Denies fevers or chills. Notes daily use of cannabis. Most recent cannabis use prior to presentation. Past History - Past Medical History Allergies/Adverse Reactions: Allergies Allergy/AdvReac Type Severity Reaction Status Date / Time beeswax Allergy Severe Difficulty Verified 03/04/18 18:33 Breathing coconut oil Allergy Severe Itching Verified 03/04/18 18:33 No Known Drug Allergies Allergy Severe Verified 03/04/18 18:33 Home Medications: Ambulatory Orders NK [No Known Home Medication] 03/04/18 Anemia: Yes (no med) Asthma: No Cancer: No Cardiac Disorders: Yes (CVA 2002) CVA: Yes (2002 RESOLVED WITHOUT ANY COMPLICATIONS) COPD: No CHF: No DVT: No Dementia: No Diabetes: No GI Disorders: No Disorders: No HTN: No Hypercholesterolemia: No Kidney Stones: No Liver Disease: Yes (FATTY LIVER) Seizures: No Thyroid Disease: No Other medical history: alcohol abuse, drug abuse - Surgical History Abdominal Surgery: Yes (hernia repair) Appendectomy: No Cardiac Surgery: No Cholecystectomy: No Lung Surgery: No Neurologic Surgery: No Orthopedic Surgery: Yes (right knee, 07/29/2015 [facility]) - Reproductive History PID: No - Suicide/Smoking/Psychosocial Hx Smoking Status: No Smoking History: Current every day smoker Have you smoked in the past 12 months: No Number of Cigarettes Smoked Daily: 10 Cigars Per Day: 0 Information on smoking cessation initiated: Yes 'Breaking Loose' booklet given: 01/30/18 Hx Alcohol Use: Yes Drug/Substance Use Hx: Yes Substance Use Type: Alcohol, Cocaine, Marijuana Hx Substance Use Treatment: Yes (this is her first inpatient rehab) *Physical Exam - Vital Signs Last Vital Signs Temp Pulse Resp BP Pulse Ox 98.5 F 106 H 18 144/96 99 03/04/18 18:31 03/04/18 18:31 03/04/18 18:31 03/04/18 18:31 03/04/18 18:31 - Physical Exam General Appearance: Yes: Nourished, Appropriately Dressed, Alcohol on Breath HEENT: positive: EOMI, JOSE Neck: positive: Trachea midline, Supple Respiratory/Chest: positive: Lungs Clear, Normal Breath Sounds Cardiovascular: positive: Regular Rate, S1, S2. negative: Edema, JVD, Murmur Vascular Pulses: Dorsalis-Pedis (R): 2+, Doralis-Pedis (L): 2+ Gastrointestinal/Abdominal: positive: Soft. negative: Rebound, Tenderness, Hernia, Mass Musculoskeletal: negative: CVA Tenderness (R), CVA Tenderness (L) ED Treatment Course - LABORATORY CBC & Chemistry Diagram: 03/04/18 22:59 03/04/18 22:45 - Medications Given in the ED: ED Medications Discontinued Medications Generic Name Dose Route Start Last Admin Trade Name Freq PRN Reason Stop Dose Admin Sodium Chloride 1,000 ml 03/04/18 22:42 03/04/18 22:46 Normal Saline - IV 03/04/18 22:43 1,000 ml ONCE ONE Administration Medical Decision Making - Medical Decision Making 03/05/18 00:48 47 year old female with abdominal pain + nausea/vomiting. Alcohol on breath. Acute alcohol intoxication/alcohol poisoning vs. hyperemesis cannabis. Low clinical suspicion for acute abdomen. Will give IV fluids, GI cocktail. Urine tox, ETOH. Reassess. 03/05/18 03:21 ETOH 330 . Patient sleeping. Will continue monitor, serial belly exams. Likely disposition is home. 03/05/18 03:52 Repeat belly exam benign. Troponin (-), EKG shows NSR no MELISSA/STD/TWI. 03/05/18 06:22 Patient tolerating PO intake. Symptomatically improved. Will discharge home with return precautions. I discussed the physical exam findings, ancillary test results and final diagnoses with the patient. I answered all of the patient's questions. The patient was satisfied with the care received and felt comfortable with the discharge plan and treatment plan. The patient will return to the Emergency Department with any new, persistent or worsening symptoms. *DC/Admit/Observation/Transfer Diagnosis at time of Disposition: Alcohol intoxication Nausea and vomiting Qualifiers: Vomiting type: unspecified Vomiting Intractability: non-intractable Qualified Code(s): R11.2 - Nausea with vomiting, unspecified - Discharge Dispostion Disposition: HOME Condition at time of disposition: Fair Decision to Admit order: No - Referrals - Patient Instructions Printed Discharge Instructions: DI for Alcohol Abuse Additional Instructions: Drink plenty of water. You can take Motrin for headaches. A referral has been provided to primary care physician. Please call to make an appointment in the next 2-3 days for evaluation. Return to the ED for any new/worsening/concerning symptoms. - Post Discharge Activity
[2018-03-04] MEDS ORDERED: FAMOTIDINE 20 MG/50 ML IVPB 20 MG/50 ML MG IVPB ONE (22:54)
[2018-03-04] MEDS ORDERED: MAG HYDROX/AL HYDROX/SIMETH -MYLANTA- ORAL SUSPENSION PO ONE (22:54)
--- NOTE | 2018-03-04 23:01 | PDOC ---
Attending Attestation - HPI HPI: 03/04/18 23:09 The patient is a 47 year old female, with a significant past medical history of alcohol abuse and marijuana use, and HTN, who presents to the emergency department with, nausea and vomiting. She denies recent fevers, chills, headache or dizziness. She denies recent nausea, vomit, diarrhea or constipation. She denies recent dysuria, frequency, urgency or hematuria. She denies recent chest pain or shortness of breath. Allergies: Beeswax and coconut oil. Past surgical history: None reported. Social history: Smoker (10 cigarettes per day). Alcohol abuse. Marijuana usage. <Sandy Keller - Last Filed: 03/05/18 06:07> - Resident Resident Name: Steph Lloyd - ED Attending Attestation I have performed the following: I have examined & evaluated the patient, The case was reviewed & discussed with the resident, I agree w/resident's findings & plan, Exceptions are as noted - Physicial Exam PE: 03/05/18 01:32 *Physical Exam General Appearance: Yes: Intoxicated . No: Apparent Distress HEENT: positive: EOMI, JOSE, Normal ENT Inspection, Normal Voice, TMs Normal, Pharynx Normal. negative: Pale Conjunctivae, Photophobia, Scleral Icterus (R), Scleral Icterus (L) Neck: positive: Trachea midline, Normal Thyroid, Supple. negative: Tender, Rigid, Carotid bruit, Stridor, Lymphadenopathy (R), Lymphadenopathy (L), Thyromegaly Respiratory/Chest: positive: Lungs Clear, Normal Breath Sounds. negative: Chest Tender, Respiratory Distress, Accessory Muscle Use, Labored Respiration, RES, Crackles, Rales, Rhonchi, Stridor, Wheezing, Dullness Cardiovascular: positive: Regular Rhythm, Regular Rate, S1, S2. negative: Edema , JVD, Murmur, Bradycardia, Tachycardia Vascular Pulses: Dorsalis-Pedis (R): 2+, Doralis-Pedis (L): 2+ Gastrointestinal/Abdominal: positive: Normal Bowel Sounds, Flat, Soft. negative : Tender, Organomegaly, Pulsatile Mass, Increased Bowel Sounds, Decreased BS, Distended, Guarding, Rebound, Hernia, Hepatomegaly, Spleenomegaly Lymphatic: negative: Adenopathy, Tenderness Musculoskeletal: positive: Normal Inspection. negative: CVA Tenderness, Decreased Range of Motion Extremity: positive: Normal Capillary Refill, Normal Inspection, Normal Range of Motion, Pelvis Stable. negative: Tender, Pedal Edema, Swelling, Erythema Integumentary: positive: Normal Color, Dry, Warm. negative: Cyanotic, Erythema , Jaundice, Rash Neurologic: positive: strategy specialist II-XII NML intact, Motor Strength 5/5. negative: EOM Palsy, Facial Droop, Sensory Deficit - Medical Decision Making 03/05/18 19:35 Pt was treated and released <Orion Herrera - Last Filed: 03/05/18 19:35> Heart Score/ECG Review #1 03/05/18 06:08 EKG performed at: 05 Mar 2018 at 5:58:26 Vent Rate 89 bpm DE interval 170 ms QRS duration 84 ms QT/QTc 438/532 ms P-R-T axes 78 84 73 Normal sinus rhythm Prolonged QT Abnormal ECG <Sandy Keller - Last Filed: 03/05/18 06:07> Attestations - Attestations 03/04/18 23:09 Documentation prepared by Sandy Keller, acting as medical instrument technician for Orion Herrera DO. <Sandy Kleler - Last Filed: 03/05/18 06:07>
[2018-03-04 23:22] LABS: INR 1.05 (0.83-1.09); PROTHROMBIN TIME (PATIENT) 11.9 SEC (9.7-13.0)
[2018-03-04 23:28] LABS: HEMATOCRIT 36.7 % (32.4-45.2); HEMOGLOBIN 12.4 GM/dL (10.7-15.3); LYMPH % 57.4 % (8-40); MCH 33.7 pg (25.7-33.7); MCHC 33.9 g/dl (32.0-36.0); MEAN CELL VOLUME 99.4 fl (80-96); MEAN PLT VOLUME 8.3 fl (7.5-11.1); MONO % 7.3 % (3.8-10.2); NEUT % 30.3 % (42.8-82.8); PLATELET COUNT 173 K/MM3 (134-434); RBC 3.69 M/mm3 (3.60-5.2); RDW 13.7 % (11.6-15.6); WHITE BLOOD COUNT 3.9 K/mm3 (4.0-10.0)
[2018-03-04 23:36] LABS: ANION GAP 9 (8-16); BILIRUBIN,TOTAL 0.2 mg/dL (0.2-1.0); BLOOD UREA NITROGEN 9 mg/dL (7-18); CALCIUM 8.3 mg/dL (8.5-10.1); CHLORIDE 105 mmol/L (98-107); CO2 26 mmol/L (21-32); CREATININE 0.7 mg/dL (0.55-1.02); GLUCOSE,RANDOM 79 mg/dL (74-106); LIPASE 96 U/L (73-393); POTASSIUM 3.7 mmol/L (3.5-5.1); SGOT/AST 122 U/L (15-37); SGPT/ALT 47 U/L (12-78); SODIUM 140 mmol/L (136-145); TOT PROT 9.2 g/dl (6.4-8.2)
[2018-03-04 23:37] LABS: ALK PHOS 140 U/L (45-117)
[2018-03-05] MEDS ORDERED: MAG HYDROX/AL HYDROX/SIMETH 30 ML UNIT-DOSE CUP ONE (00:46)
[2018-03-05] MEDS ORDERED: FAMOTIDINE 20 MG/50 ML IVPB 20 MG/50 ML MG IVPB ONE (00:46)
[2018-03-05] MEDS ORDERED: ONDANSETRON 4 MG/2 ML VIAL IVPUSH ONE (05:14)
[2018-03-05] MEDS ORDERED: ONDANSETRON 4 MG/2 ML VIAL ONE (06:11)
[2018-03-05 06:44] VITALS: BP 116/68; PULSE 68; TEMP 97.9
--- NOTE | 2018-03-05 10:36 | EKG ---
Test Reason : Blood Pressure : / mmHG Vent. Rate : 089 BPM Atrial Rate : 089 BPM P-R Int : 170 ms QRS Dur : 084 ms QT Int : 438 ms P-R-T Axes : 078 084 073 degrees QTc Int : 532 ms NORMAL SINUS RHYTHM PROLONGED QT ABNORMAL ECG WHEN COMPARED WITH ECG OF 30-JAN-2018 20:22, NO SIGNIFICANT CHANGE WAS FOUND Confirmed by GISSEL NANCE MD ([id number]) on 03/05/2018 10:36:39 AM Referred By: Confirmed By:GISSEL NANCE MD
== END 2018-03-05 06:55 | disposition home or self-care (01) ==
LOC: JER 18:18
PROC: 3E033GC Introduction of Other Therapeutic Substance into Peripheral Vein, Percutaneous Approach (ICD-10-PCS; principal; 2018-03-04)
PROC: 3E0337Z Introduction of Electrolytic and Water Balance Substance into Peripheral Vein, Percutaneous Approach (ICD-10-PCS; 2018-03-04)
DX: F10.129 Alcohol abuse with intoxication, unspecified (principal); F12.10 Cannabis abuse, uncomplicated; R11.2 Nausea with vomiting, unspecified; K76.0 Fatty (change of) liver, not elsewhere classified; F17.210 Nicotine dependence, cigarettes, uncomplicated; Z86.73 Personal history of transient ischemic attack (TIA), and cerebral infarction without residual deficits
CPT/HCPCS: 36415; 80053; 80307; 83605; 83690; 84484; 85025; 85610; 93005; 93010; 99282-25

== ENCOUNTER 2018-03-05 15:29 | Inpatient (IN) | payer OTHER ==
--- NOTE | 2018-03-05 21:30 | HP ---
CIWA Score - CIWA Score Nausea/Vomitin-Int. Nausea w/Dry Heave Muscle Tremors: 2 Anxiety: 3 Agitation: 2 Paroxysmal Sweats: 2 Orientation: 0-Oriented Tacttile Disturbances: 0-None Auditory Disturbances: 0-None Visual Disturbances: 1-Very Mild Sensitivity Headache: 2-Mild CIWA-Ar Total Score: [address] [facility] - HPI Chief Complaint: alcohol withdrawal symptoms Allergies/Adverse Reactions: Allergies Allergy/AdvReac Type Severity Reaction Status Date / Time beeswax Allergy Severe Difficulty Verified 03/04/18 18:33 Breathing coconut oil Allergy Severe Itching Verified 03/04/18 18:33 No Known Drug Allergies Allergy Severe Verified 03/04/18 18:33 History of Present Illness: 47 yo female with hx of alcohol, cocaine and marijuana dependence is here seeking detox. Patient reports she was seen 03/04/18 - 03/05/18 for continuous abdominal pain, vomiting and headache. PMHX: hemorrhoids, heart murmur, chronic back pain, HTN, insomnia, anxiety and depression. Reports non- compliance with BP medications. Denies suicidal / homicidal ideation, denies hx of suicide attempt. Last detox [facility] 01/30/18 -02/03/18. Exam Limitations: No Limitations - Ebola screening Have you traveled outside of the country in the last 21 days: No Have you had contact with anyone from an Ebola affected area: No Do you have a fever: No - Review of Systems Constitutional: Chills, Changes in sleep, Unintentional Wgt. Loss EENT: reports: Blurred Vision (neds glasses), Dental Problems (poor dentition) Respiratory: reports: No Symptoms reported Cardiac: reports: No Symptoms Reported GI: reports: Nausea, Poor Appetite, Vomiting, Abdominal cramping : reports: No Symptoms Reported Musculoskeletal: reports: Back Pain Integumentary: reports: No Symptoms Reported Neuro: reports: See HPI Endocrine: reports: No Symptoms Reported Hematology: reports: No Symptoms Reported Psychiatric: reports: Orientated x3, Anxious Other Systems: Reviewed and Negative Patient History - Patient Medical History Hx Anemia: Yes (no med) Hx Asthma: No Hx Chronic Obstructive Pulmonary Disease (COPD): No Hx Cancer: No Hx Cardiac Disorders: Yes (CVA 2002) Hx Congestive Heart Failure: No Hx Hypertension: No Hx Hypercholesterolemia: No Hx Pacemaker: No HX Cerebrovascular Accident: Yes (2002 RESOLVED WITHOUT ANY COMPLICATIONS) Hx Seizures: No Hx Dementia: No Hx Diabetes: No Hx Gastrointestinal Disorders: No Hx Liver Disease: Yes (FATTY LIVER) Hx Genitourinary Disorders: No Hx Sexually Transmitted Disorders: No Hx Renal Disease (ESRD): No Hx Thyroid Disease: No Hx Human Immunodeficiency Virus (HIV): No (negative last 05/14, declines testing ) Hx Hepatitis C: No (negative) Hx Depression: Yes Hx Suicide Attempt: No Hx Bipolar Disorder: No Hx Schizophrenia: No - Patient Surgical History Past Surgical History: Yes Hx Neurologic Surgery: No Hx Cataract Extraction: No Hx Cardiac Surgery: No Hx Lung Surgery: No Hx Breast Surgery: No Hx Breast Biopsy: No Hx Abdominal Surgery: Yes (hernia repair) Hx Appendectomy: No Hx Cholecystectomy: No Hx Genitourinary Surgery: No Hx Section: No Hx Orthopedic Surgery: Yes (right knee, 07/29/2015 [facility]) Hx Hysterectomy: No Other Surgical History: R inguinal hernia repair Anesthesia Reaction: No - PPD History Previous Implant?: Yes Documented Results: Negative w/proof Date: 02/01/18 Results: 0mm PPD to be Administered?: Yes - Reproductive History Patient is a Female of Child Bearing Age (11 -55 yrs old): Yes (Post menopausal ) Last Menstrual Period: 01/28/17 Patient : No - Smoking Cessation Smoking history: Current some day smoker Have you smoked in the past 12 months: No Aproximately how many cigarettes per day: 1 Cigars Per Day: 0 Hx Chewing Tobacco Use: No Initiated information on smoking cessation: Yes 'Breaking Loose' booklet given: 03/05/18 - Substance & Tx. History Hx Alcohol Use: Yes Hx Substance Use: Yes Substance Use Type: Alcohol, Cocaine, Marijuana Hx Substance Use Treatment: Yes (Last detox [facility] 01/30/18 -02/03/18. ) - Substances Abused Alcohol Route: Oral Frequency: Daily Amount used: 8 x 22 oz rafal Age of first use: 18 Date of Last Use: 03/05/18 Cocaine Route: Smoking Frequency: 3-6 times per week Amount used: varies Age of first use: 25 Date of Last Use: 03/03/18 Marijuana/Hashish Route: Smoking Frequency: Daily Amount used: 4 blunts Age of first use: 25 Date of Last Use: 03/04/18 Family Disease History - Family Disease History Family Disease History: Diabetes: Mother, Heart Disease: Mother, Other: Father ( ), Mother Admission Physical Exam [facility] - Physical General Appearance: Yes: Disheveled, Mild Distress, Thin, Anxious HEENTM: Yes: EOMI, Hearing grossly Normal, Normal ENT Inspection, Normocephalic , Normal Voice, JOSE, Pharynx Normal, Tm's normal, Other (poor dentition) Respiratory: Yes: Chest Non-Tender, Lungs Clear, Normal Breath Sounds, No Respiratory Distress, No Accessory Muscle Use Neck: Yes: Within Normal Limits Breast: Yes: Breast Exam Deferred Cardiology: Yes: Regular Rhythm, Regular Rate Abdominal: Yes: Normal Bowel Sounds, Non Tender, Flat, Soft Genitourinary: Yes: Within Normal Limits Back: Yes: Normal Inspection Musculoskeletal: Yes: full range of Motion, Gait Steady, Pelvis Stable Extremities: Yes: Normal Capillary Refill, Normal Inspection, Normal Range of Motion, Non-Tender Neurological: Yes: elementary instructional coach II-XII NML intact, Fully Oriented, Alert, Motor Strength 5/5, Depressed Affect Integumentary: Yes: Normal Color, Warm, Diaphoresis Lymphatic: Yes: Within Normal Limits - Diagnostic (1) Alcohol dependence with uncomplicated withdrawal Current Visit: Yes Status: Acute (2) Nausea and vomiting Current Visit: Yes Status: Acute Qualifiers: Vomiting type: unspecified Vomiting Intractability: non-intractable Qualified Code(s): R11.2 - Nausea with vomiting, unspecified (3) Anemia Current Visit: Yes Status: Chronic Qualifiers: Anemia type: unspecified type Qualified Code(s): D64.9 - Anemia, unspecified (4) Cannabis dependence Current Visit: No Status: Chronic (5) Cocaine dependence Current Visit: Yes Status: Chronic Qualifiers: Substance use status: uncomplicated Qualified Code(s): F14.20 - Cocaine dependence, uncomplicated (6) History of right knee joint replacement Current Visit: Yes Status: Chronic (7) Hypertension Current Visit: No Status: Chronic Qualifiers: Hypertension type: essential hypertension Qualified Code(s): I10 - Essential (primary) hypertension (8) Old cerebrovascular accident (CVA) without late effect Current Visit: Yes Status: Chronic (9) Elevated blood pressure reading Current Visit: Yes Status: Acute Cleared for Admission [facility] - Detox or Rehab [facility] Level of Care: Medically Managed Detox Regimen/Protocol: Librium BHS Breath Alcohol Content Breath Alcohol Content: 0.135
[2018-03-05] MEDS ORDERED: MAG HYDROX/AL HYDROX/SIMETH 30 ML UNIT-DOSE CUP PO PRN (21:49)
[2018-03-05] MEDS ORDERED: MAGNESIUM CITRATE 300 ML BOTTLE PO PRN (21:49)
[2018-03-05] MEDS ORDERED: LOPERAMIDE HCL 2 MG CAPSULE PO PRN (21:49)
[2018-03-05] MEDS ORDERED: guaiFENesin/D-METHORPHAN HB 10 ML UNIT-DOSE CUPS PO PRN (21:49)
[2018-03-05] MEDS ORDERED: MENTHOL/PHENOL 1 EACH UD MM PRN (21:49)
[2018-03-05] MEDS ORDERED: P-EPHED 60MG/TRIPROLIDI 2.5MG TABLET PO PRN (21:49)
[2018-03-05] MEDS ORDERED: MAGNESIUM HYDROX 2400MG/30ML ORAL SUSPENSION 30 ML CUP PO PRN (21:49)
[2018-03-05] MEDS ORDERED: chlordiazePOXIDE HCL 25 MG CAPSULE PO PRN (21:49)
[2018-03-05] MEDS ORDERED: MELATONIN 5 MG TABLETS PO PRN (22:00)
[2018-03-05] MEDS ORDERED: cloNIDine HCL 0.1 MG TABLET PO ONE (22:00)
[2018-03-05 22:06] VITALS: BMI 18.3
[2018-03-05] MEDS: chlordiazePOXIDE HCL 25 MG CAPSULE PO SCH (23:01)
[2018-03-05] MEDS: THIAMINE HCL 100 MG TABLET (FP) PO SCH (23:01)
[2018-03-06 02:13] LABS: URINE APPEARANCE CLEAR; URINE BILIRUBIN NEGATIVE (<2.0 mg/dL); URINE COLOR LTYELLOW; URINE GLUCOSE (UA) NEGATIVE (NEGATIVE); URINE KETONE NEGATIVE (NEGATIVE); URINE LEUK ESTERASE NEGATIVE (NEGATIVE); URINE NITRITE NEGATIVE (NEGATIVE); URINE PROTEIN NEGATIVE (NEGATIVE); URINE UROBILINOGEN NEGATIVE mg/dL (0.2-1.0)
[2018-03-06] MEDS: chlordiazePOXIDE HCL 25 MG CAPSULE PO SCH ×4 (05:44→22:21)
--- NOTE | 2018-03-06 08:04 | CONSULT ---
[facility] Psychiatric Consult - Data Date of interview: 03/06/18 Admission source: [facility] Identifying data: This is 47 years old female, single mother of five, liVing with family, on PA, with no psychiatric hospitalization history, with multiple medical problems history, with history of alcohol, cocaine marijuana and nicotine dependence, reports alcohol withdrawal simptoms and is here seeking detox. Substance Abuse History: Smoking history: Current some day smoker. Have you smoked in the past 12 months: No. Aproximately how many cigarettes per day: 1. Cigars Per Day: 0. Hx Chewing Tobacco Use: No. Initiated information on smoking cessation: Yes. 'Breaking Loose' booklet given: 03/05/18. - Substance & Tx. History. Hx Alcohol Use: Yes. Hx Substance Use: Yes. Substance Use Type : Alcohol, Cocaine, Marijuana. Hx Substance Use Treatment: Yes (Last detox [facility] 01/30/18 -02/03/18. ). - Substances Abused. Alcohol. Route: Oral. Frequency: Daily. Amount used: 8 x 22 oz rafal. Age of first use: 18. Date of Last Use: 03/05/18. Cocaine. Route: Smoking. Frequency: 3-6 times per week. Amount used: varies. Age of first use: 25. Date of Last Use: 03/03/18. Marijuana/Hashish. Route: Smoking. Frequency: Daily. Amount used: 4 blunts. Age of first use: 25. Date of Last Use: 03/04/18 Medical History: HTN, CVA history, heart murmur history, Anemis history, R.Knee replacement, LBP Psychiatric History: Patient reports history of depression and nanxiety, denies psychiatric hospitalization history, reports taking prior to admission Seroquel 100mg po qhs for insomnia Physical/Sexual Abuse/Trauma History: Denies Additional Comment: Seroquel 100mg po qhs for insomnia Mental Status Exam - Mental Status Exam Alert and Oriented to: Person Cognitive Function: Fair Patient Appearance: Unkempt Mood: Sad Affect: Flat Patient Behavior: Appropriate Speech Pattern: Delayed Voice Loudness: Mildly Soft/Quiet Thought Process: Circumstantial, Goal Oriented Thought Disorder: Being Controlled Hallucinations: Denies Suicidal Ideation: Denies Homicidal Ideation: Denies Insight/Judgement: Fair Sleep: Difficulty falling asleep Appetite: Weight loss Muscle strength/Tone: Mild Hypotonicity Gait/Station: Deferred Additional Comments: Seroquel 100mg po qhs for insomnia Psychiatric Findings - Problem List ([place] 1, 2,3) (1) Alcohol dependence with uncomplicated withdrawal Current Visit: Yes Status: Acute (2) Anemia Current Visit: Yes Status: Chronic Qualifiers: Anemia type: unspecified type Qualified Code(s): D64.9 - Anemia, unspecified (3) Cocaine dependence Current Visit: Yes Status: Chronic Qualifiers: Substance use status: uncomplicated Qualified Code(s): F14.20 - Cocaine dependence, uncomplicated (4) History of right knee joint replacement Current Visit: Yes Status: Chronic (5) Old cerebrovascular accident (CVA) without late effect Current Visit: Yes Status: Chronic (6) Alcohol intoxication Current Visit: No Status: Acute (7) Hypokalemia Current Visit: No Status: Acute (8) Prerenal azotemia Current Visit: No Status: Acute (9) Substance induced mood disorder Current Visit: No Status: Acute (10) Substance-induced anxiety disorder Current Visit: No Status: Acute (11) Substance-induced sleep disorder Current Visit: No Status: Acute (12) Syncope Current Visit: No Status: Acute (13) Weight loss Current Visit: No Status: Acute (14) Alcohol dependence Current Visit: No Status: Chronic (15) Cannabis dependence Current Visit: No Status: Chronic (16) Drug-induced mood disorder Current Visit: No Status: Chronic (17) Hypertension Current Visit: No Status: Chronic Qualifiers: Hypertension type: essential hypertension Qualified Code(s): I10 - Essential (primary) hypertension - Initial Treatment Plan Initial Treatment Plan: Seroquel 100mg po qhs for insomnia
[2018-03-06] MEDS: PRENATAL VITAMINS W/ FOLIC ACID TABLET (FP) PO SCH (10:17)
[2018-03-06] MEDS: amLODIPine BESYLATE 5 MG TABLET (FP) PO SCH (10:17)
[2018-03-06 10:46] LABS: HEMATOCRIT 35.3 % (32.4-45.2); HEMOGLOBIN 11.9 GM/dL (10.7-15.3); MCH 33.6 pg (25.7-33.7); MCHC 33.6 g/dl (32.0-36.0); MEAN CELL VOLUME 99.9 fl (80-96); MEAN PLT VOLUME 8.8 fl (7.5-11.1); PLATELET COUNT 160 K/MM3 (134-434); RBC 3.53 M/mm3 (3.60-5.2); RDW 13.9 % (11.6-15.6)
[2018-03-06 10:51] LABS: WHITE BLOOD COUNT 1.8 K/mm3 (4.0-10.0)
[2018-03-06 11:05] LABS: SGOT/AST 92 U/L (15-37); SGPT/ALT 42 U/L (12-78)
[2018-03-06 11:26] LABS: ALBUMIN 3.2 g/dl (3.4-5.0); ALK PHOS 127 U/L (45-117); BILIRUBIN,TOTAL 0.3 mg/dL (0.2-1.0); BLOOD UREA NITROGEN 7 mg/dL (7-18); CALCIUM 8.4 mg/dL (8.5-10.1); CREATININE 0.7 mg/dL (0.55-1.02); GLUCOSE,RANDOM 70 mg/dL (74-106); TOT PROT 7.8 g/dl (6.4-8.2)
[2018-03-06 12:17] LABS: ANION GAP 13 (8-16); CHLORIDE 108 mmol/L (98-107); CO2 25 mmol/L (21-32); POTASSIUM 3.8 mmol/L (3.5-5.1); SODIUM 146 mmol/L (136-145)
[2018-03-06] MEDS: AMOXICILLIN 500 MG CAPSULE (FP) PO SCH ×2 (13:53→22:21)
--- NOTE | 2018-03-06 13:57 | PN ---
[facility] CIWA - CIWA Score Nausea/Vomitin Muscle Tremors: 3 Anxiety: 2 Agitation: 3 Paroxysmal Sweats: 2 Orientation: 1-Uncertain about Date Tacttile Disturbances: 0-None Auditory Disturbances: 0-None Visual Disturbances: 0-None Headache: 2-Mild CIWA-Ar Total Score: 16 [facility] Progress Note (SOAP) Subjective: pt states she was on amoxacillin for recent denatl procedure- did not complete treatment, also says she ahs nausea and vomiting from withdrawing Assessment: 03/06/18 14:11 Vital Signs - 24 hr 03/05/18 03/06/18 03/06/18 21:59 00:30 03:30 Temperature 98.1 F Pulse Rate 95 H Respiratory 18 18 16 Rate Blood Pressure 152/101 03/06/18 03/06/18 03/06/18 07:23 10:39 13:56 Temperature 98.1 F 98.2 F 98.6 F Pulse Rate 73 83 70 Respiratory 18 18 16 Rate Blood Pressure 97/70 108/74 100/63 Breath Alcohol Content Breath Alcohol Content 0.135 Laboratory Tests 03/06/18 03/06/18 03/06/18 00:01 07:00 07:00 WBC 1.8 L* RBC 3.53 L Hgb 11.9 Hct 35.3 MCV 99.9 H MCH 33.6 MCHC 33.6 RDW 13.9 Plt Count 160 MPV 8.8 Sodium 146 H Potassium 3.8 Chloride 108 H Carbon Dioxide 25 Anion Gap 13 BUN 7 Creatinine 0.7 Creat Clearance w eGFR > 60 Random Glucose 70 L Calcium 8.4 L Total Bilirubin 0.3 AST 92 H ALT 42 Alkaline Phosphatase 127 H D Total Protein 7.8 Albumin 3.2 L Urine Color Ltyellow Urine Appearance Clear Urine pH 6.0 Ur Specific [place] 1.010 Urine Protein Negative Urine Glucose (UA) Negative Urine Ketones Negative Urine Blood Negative Urine Nitrite Negative Urine Bilirubin Negative Urine Urobilinogen Negative Ur Leukocyte Esterase Negative low WBC increased liver enzyme Plan: amoxacillin ordered, pt to take prn zofran for n/v pt has h/o low WBC- last admission showed the same- will repeat lab and d/w pt
[2018-03-06] MEDS ORDERED: ONDANSETRON *ODT* 4 MG TABLET SL PRN (14:13)
--- NOTE | 2018-03-06 16:49 | EKG ---
Test Reason : Blood Pressure : / mmHG Vent. Rate : 090 BPM Atrial Rate : 090 BPM P-R Int : 186 ms QRS Dur : 092 ms QT Int : 402 ms P-R-T Axes : 079 088 072 degrees QTc Int : 491 ms NORMAL SINUS RHYTHM PROLONGED QT ABNORMAL ECG WHEN COMPARED WITH ECG OF 05-MAR-2018 05:58, NO SIGNIFICANT CHANGE WAS FOUND Confirmed by MICHAEL MEDEL MD ([id number]) on 03/06/2018 3:51:08 PM Referred By: Confirmed By:MICHAEL MEDEL MD
[2018-03-06] MEDS: QUEtiapine FUMARATE 100 MG TABLET (FP) PO SCH (22:21)
[2018-03-06] MEDS: THIAMINE HCL 100 MG TABLET (FP) PO SCH (22:21)
[2018-03-06] MEDS: IBUPROFEN 400 MG TABLET (FP) PO PRN (22:22)
[2018-03-07] MEDS: AMOXICILLIN 500 MG CAPSULE (FP) PO SCH ×3 (05:44→22:21)
[2018-03-07] MEDS: chlordiazePOXIDE HCL 25 MG CAPSULE PO SCH ×3 (05:44→17:29)
[2018-03-07] MEDS: PRENATAL VITAMINS W/ FOLIC ACID TABLET (FP) PO SCH (10:29)
[2018-03-07] MEDS: IBUPROFEN 400 MG TABLET (FP) PO PRN (10:30)
[2018-03-07] MEDS: amLODIPine BESYLATE 5 MG TABLET (FP) PO SCH (10:30)
[2018-03-07 10:46] LABS: BASO % 0.7 % (0-2.0); EOS % 11.5 % (0-4.5); HEMATOCRIT 36.3 % (32.4-45.2); HEMOGLOBIN 12.1 GM/dL (10.7-15.3); LYMPH % 54.6 % (8-40); MCH 33.7 pg (25.7-33.7); MCHC 33.5 g/dl (32.0-36.0); MEAN CELL VOLUME 100.6 fl (80-96); MONO % 9.5 % (3.8-10.2); NEUT % 23.7 % (42.8-82.8); PLATELET COUNT 135 K/MM3 (134-434); RDW 13.6 % (11.6-15.6)
--- NOTE | 2018-03-07 14:41 | PN ---
S CIWA - CIWA Score Nausea/Vomitin-Mild Nausea/No Vomiting Muscle Tremors: 1-None Visible, but [place] Anxiety: 1-Mildly Anxious Agitation: 1-Slight > Activity Paroxysmal Sweats: 1-Minimal Palms Moist Orientation: 0-Oriented Tacttile Disturbances: 0-None Auditory Disturbances: 0-None Visual Disturbances: 0-None Headache: 0-None Present CIWA-Ar Total Score: 5 [facility] Progress Note (SOAP) Subjective: pt states doing OK Objective: 03/07/18 14:39 Vital Signs - 24 hr 03/06/18 03/06/18 03/07/18 17:48 22:45 00:30 Temperature 98.2 F 98.1 F Pulse Rate 75 73 Respiratory 18 18 18 Rate Blood Pressure 127/93 153/75 03/07/18 03/07/18 03/07/18 03:30 06:28 10:05 Temperature 97.7 F 97.9 F Pulse Rate 84 99 H Respiratory 16 16 20 Rate Blood Pressure 123/81 121/89 Laboratory Tests 03/06/18 03/06/18 03/06/18 00:01 07:00 07:00 WBC 1.8 L* RBC 3.53 L Hgb 11.9 Hct 35.3 MCV 99.9 H MCH 33.6 MCHC 33.6 RDW 13.9 Plt Count 160 MPV 8.8 Absolute Neuts (auto) Neutrophils % Lymphocytes % Monocytes % Eosinophils % Basophils % Nucleated RBC % Sodium 146 H Potassium 3.8 Chloride 108 H Carbon Dioxide 25 Anion Gap 13 BUN 7 Creatinine 0.7 Creat Clearance w eGFR > 60 Random Glucose 70 L Calcium 8.4 L Total Bilirubin 0.3 AST 92 H ALT 42 Alkaline Phosphatase 127 H D Total Protein 7.8 Albumin 3.2 L Urine Color Ltyellow Urine Appearance Clear Urine pH 6.0 Ur Specific [place] 1.010 Urine Protein Negative Urine Glucose (UA) Negative Urine Ketones Negative Urine Blood Negative Urine Nitrite Negative Urine Bilirubin Negative Urine Urobilinogen Negative Ur Leukocyte Esterase Negative RPR Titer 03/06/18 03/07/18 07:00 07:00 WBC 2.0 L RBC 3.60 Hgb 12.1 Hct 36.3 MCV 100.6 H MCH 33.7 MCHC 33.5 RDW 13.6 Plt Count 135 MPV 9.0 Absolute Neuts (auto) 0.5 Neutrophils % 23.7 L D Lymphocytes % 54.6 H Monocytes % 9.5 Eosinophils % 11.5 H D Basophils % 0.7 Nucleated RBC % 0 Sodium Potassium Chloride Carbon Dioxide Anion Gap BUN Creatinine Creat Clearance w eGFR Random Glucose Calcium Total Bilirubin AST ALT Alkaline Phosphatase Total Protein Albumin Urine Color Urine Appearance Urine pH Ur Specific [place] Urine Protein Urine Glucose (UA) Urine Ketones Urine Blood Urine Nitrite Urine Bilirubin Urine Urobilinogen Ur Leukocyte Esterase RPR Titer Nonreactive low WBC a bit higher that yesterday, low plts VS WNL Assessment: 03/07/18 14:40 47 yo female with hx of alcohol, cocaine and marijuana dependence is herefor alcohol detox Plan: continue alcohol detox protocol
[2018-03-07] MEDS: ACETAMINOPHEN 325 MG TABLET (FP) PO PRN (18:53)
[2018-03-07] MEDS: THIAMINE HCL 100 MG TABLET (FP) PO SCH (22:21)
[2018-03-07] MEDS: chlordiazePOXIDE 5 MG CAPSULE PO SCH (22:21)
[2018-03-07] MEDS: QUEtiapine FUMARATE 100 MG TABLET (FP) PO SCH (22:21)
[2018-03-08] MEDS: chlordiazePOXIDE 5 MG CAPSULE PO SCH ×3 (05:45→17:35)
[2018-03-08] MEDS: AMOXICILLIN 500 MG CAPSULE (FP) PO SCH ×3 (05:45→22:13)
[2018-03-08] MEDS: amLODIPine BESYLATE 5 MG TABLET (FP) PO SCH (10:29)
[2018-03-08] MEDS: PRENATAL VITAMINS W/ FOLIC ACID TABLET (FP) PO SCH (10:30)
[2018-03-08] MEDS: QUEtiapine FUMARATE 100 MG TABLET (FP) PO SCH (22:13)
[2018-03-08] MEDS: chlordiazePOXIDE HCL 10 MG CAPSULE PO SCH (22:13)
[2018-03-08] MEDS: THIAMINE HCL 100 MG TABLET (FP) PO SCH (22:13)
--- NOTE | 2018-03-08 23:26 | PN ---
[facility] Progress Note (SOAP) Subjective: Sweats Shakes Sleep disturbance Objective: 03/08/18 23:25 A & O x 3 Upset over wet clothes not in acute distress Assessment: withdrawal sx Plan: continue detox
[2018-03-09] MEDS: chlordiazePOXIDE HCL 10 MG CAPSULE PO SCH ×3 (05:53→17:42)
[2018-03-09] MEDS: AMOXICILLIN 500 MG CAPSULE (FP) PO SCH ×3 (05:53→22:18)
[2018-03-09] MEDS: PRENATAL VITAMINS W/ FOLIC ACID TABLET (FP) PO SCH (10:24)
--- NOTE | 2018-03-09 13:10 | PN ---
S Progress Note (SOAP) Subjective: Interrupted sleep, tremors, sweats and abdominal cramps Objective: 03/09/18 13:09 Vital Signs - 8 hr 03/09/18 03/09/18 06:00 10:38 Temperature 97.5 F L 97.7 F Pulse Rate 71 81 Respiratory 16 16 Rate Blood Pressure 113/79 97/65 Laboratory Last Values WBC 2.0 K/mm3 (4.0-10.0) L 03/07/18 07:00 RBC 3.60 M/mm3 (3.60-5.2) 03/07/18 07:00 Hgb 12.1 GM/dL (10.7-15.3) 03/07/18 07:00 Hct 36.3 % (32.4-45.2) 03/07/18 07:00 MCV 100.6 fl (80-96) H 03/07/18 07:00 MCH 33.7 pg (25.7-33.7) 03/07/18 07:00 MCHC 33.5 g/dl (32.0-36.0) 03/07/18 07:00 RDW 13.6 % (11.6-15.6) 03/07/18 07:00 Plt Count 135 K/MM3 (134-434) 03/07/18 07:00 MPV 9.0 fl (7.5-11.1) 03/07/18 07:00 Absolute Neuts (auto) 0.5 # 03/07/18 07:00 Neutrophils % 23.7 % (42.8-82.8) L D 03/07/18 07:00 Lymphocytes % 54.6 % (8-40) H 03/07/18 07:00 Monocytes % 9.5 % (3.8-10.2) 03/07/18 07:00 Eosinophils % 11.5 % (0-4.5) H D 03/07/18 07:00 Basophils % 0.7 % (0-2.0) 03/07/18 07:00 Nucleated RBC % 0 % (0-0) 03/07/18 07:00 Sodium 146 mmol/L (136-145) H 03/06/18 07:00 Potassium 3.8 mmol/L (3.5-5.1) 03/06/18 07:00 Chloride 108 mmol/L (98-107) H 03/06/18 07:00 Carbon Dioxide 25 mmol/L (21-32) 03/06/18 07:00 Anion Gap 13 (8-16) 03/06/18 07:00 BUN 7 mg/dL (7-18) 03/06/18 07:00 Creatinine 0.7 mg/dL (0.55-1.02) 03/06/18 07:00 Creat Clearance w eGFR > 60 (>60) 03/06/18 07:00 Random Glucose 70 mg/dL (74-106) L 03/06/18 07:00 Calcium 8.4 mg/dL (8.5-10.1) L 03/06/18 07:00 Total Bilirubin 0.3 mg/dL (0.2-1.0) 03/06/18 07:00 AST 92 U/L (15-37) H 03/06/18 07:00 ALT 42 U/L (12-78) 03/06/18 07:00 Alkaline Phosphatase 127 U/L (45-117) H D 03/06/18 07:00 Total Protein 7.8 g/dl (6.4-8.2) 03/06/18 07:00 Albumin 3.2 g/dl (3.4-5.0) L 03/06/18 07:00 Urine Color Ltyellow 03/06/18 00:01 Urine Appearance Clear 03/06/18 00:01 Urine pH 6.0 (5.0-8.0) 03/06/18 00:01 Ur Specific [place] 1.010 (1.001-1.035) 03/06/18 00:01 Urine Protein Negative (NEGATIVE) 03/06/18 00:01 Urine Glucose (UA) Negative (NEGATIVE) 03/06/18 00:01 Urine Ketones Negative (NEGATIVE) 03/06/18 00:01 Urine Blood Negative (NEGATIVE) 03/06/18 00:01 Urine Nitrite Negative (NEGATIVE) 03/06/18 00:01 Urine Bilirubin Negative (<2.0 mg/dL) 03/06/18 00:01 Urine Urobilinogen Negative mg/dL (0.2-1.0) 03/06/18 00:01 Ur Leukocyte Esterase Negative (NEGATIVE) 03/06/18 00:01 RPR Titer Nonreactive (NONREACTIVE) 03/06/18 07:00 Labs noted Assessment: 03/09/18 13:09 Withdrawal sx Plan: Continue detox
[2018-03-09] MEDS: amLODIPine BESYLATE 5 MG TABLET (FP) PO SCH (14:28)
[2018-03-09] MEDS: ACETAMINOPHEN 325 MG TABLET (FP) PO PRN (18:29)
[2018-03-09] MEDS: THIAMINE HCL 100 MG TABLET (FP) PO SCH (22:18)
[2018-03-09] MEDS: QUEtiapine FUMARATE 100 MG TABLET (FP) PO SCH (22:18)
[2018-03-10] MEDS: AMOXICILLIN 500 MG CAPSULE (FP) PO SCH ×2 (06:01→14:11)
--- NOTE | 2018-03-10 09:04 | PN ---
S Progress Note (SOAP) Subjective: alert,no complaint Objective: 03/10/18 09:01 Vital Signs Temperature 97.5 F L 03/10/18 06:33 Pulse Rate 73 03/10/18 06:33 Respiratory Rate 18 03/10/18 06:33 Blood Pressure 99/66 03/10/18 06:33 O2 Sat by Pulse Oximetry (%) Assessment: 03/10/18 09:03 detox completed,no withdrawal symptom Plan: discharge today ,follow up with after care program as arrangement
--- NOTE | 2018-03-10 09:10 | DS ---
[facility] Detox Discharge Summary Admission Date: 03/05/18 Discharge Date: 03/10/18 - History Present History: Alcohol Dependence, Cannabis Dependence, Cocaine Dependence Additional Comments: follow up with after care program as arrangement Pertinent Past History: hypertension old cva - Physical Exam Results Vital Signs: Vital Signs Temperature 97.5 F L 03/10/18 06:33 Pulse Rate 73 03/10/18 06:33 Respiratory Rate 18 03/10/18 06:33 Blood Pressure 99/66 03/10/18 06:33 O2 Sat by Pulse Oximetry (%) Pertinent Admission Physical Exam Findings: withdrawal signs and symptom Laboratory Last Values WBC 2.0 K/mm3 (4.0-10.0) L 03/07/18 07:00 RBC 3.60 M/mm3 (3.60-5.2) 03/07/18 07:00 Hgb 12.1 GM/dL (10.7-15.3) 03/07/18 07:00 Hct 36.3 % (32.4-45.2) 03/07/18 07:00 MCV 100.6 fl (80-96) H 03/07/18 07:00 MCH 33.7 pg (25.7-33.7) 03/07/18 07:00 MCHC 33.5 g/dl (32.0-36.0) 03/07/18 07:00 RDW 13.6 % (11.6-15.6) 03/07/18 07:00 Plt Count 135 K/MM3 (134-434) 03/07/18 07:00 MPV 9.0 fl (7.5-11.1) 03/07/18 07:00 Absolute Neuts (auto) 0.5 # 03/07/18 07:00 Neutrophils % 23.7 % (42.8-82.8) L D 03/07/18 07:00 Lymphocytes % 54.6 % (8-40) H 03/07/18 07:00 Monocytes % 9.5 % (3.8-10.2) 03/07/18 07:00 Eosinophils % 11.5 % (0-4.5) H D 03/07/18 07:00 Basophils % 0.7 % (0-2.0) 03/07/18 07:00 Nucleated RBC % 0 % (0-0) 03/07/18 07:00 Sodium 146 mmol/L (136-145) H 03/06/18 07:00 Potassium 3.8 mmol/L (3.5-5.1) 03/06/18 07:00 Chloride 108 mmol/L (98-107) H 03/06/18 07:00 Carbon Dioxide 25 mmol/L (21-32) 03/06/18 07:00 Anion Gap 13 (8-16) 03/06/18 07:00 BUN 7 mg/dL (7-18) 03/06/18 07:00 Creatinine 0.7 mg/dL (0.55-1.02) 03/06/18 07:00 Creat Clearance w eGFR > 60 (>60) 03/06/18 07:00 Random Glucose 70 mg/dL (74-106) L 03/06/18 07:00 Calcium 8.4 mg/dL (8.5-10.1) L 03/06/18 07:00 Total Bilirubin 0.3 mg/dL (0.2-1.0) 03/06/18 07:00 AST 92 U/L (15-37) H 03/06/18 07:00 ALT 42 U/L (12-78) 03/06/18 07:00 Alkaline Phosphatase 127 U/L (45-117) H D 03/06/18 07:00 Total Protein 7.8 g/dl (6.4-8.2) 03/06/18 07:00 Albumin 3.2 g/dl (3.4-5.0) L 03/06/18 07:00 Urine Color Ltyellow 03/06/18 00:01 Urine Appearance Clear 03/06/18 00:01 Urine pH 6.0 (5.0-8.0) 03/06/18 00:01 Ur Specific [place] 1.010 (1.001-1.035) 03/06/18 00:01 Urine Protein Negative (NEGATIVE) 03/06/18 00:01 Urine Glucose (UA) Negative (NEGATIVE) 03/06/18 00:01 Urine Ketones Negative (NEGATIVE) 03/06/18 00:01 Urine Blood Negative (NEGATIVE) 03/06/18 00:01 Urine Nitrite Negative (NEGATIVE) 03/06/18 00:01 Urine Bilirubin Negative (<2.0 mg/dL) 03/06/18 00:01 Urine Urobilinogen Negative mg/dL (0.2-1.0) 03/06/18 00:01 Ur Leukocyte Esterase Negative (NEGATIVE) 03/06/18 00:01 RPR Titer Nonreactive (NONREACTIVE) 03/06/18 07:00 Vital Signs Temperature 97.5 F L 03/10/18 06:33 Pulse Rate 73 03/10/18 06:33 Respiratory Rate 18 03/10/18 06:33 Blood Pressure 99/66 03/10/18 06:33 O2 Sat by Pulse Oximetry (%) - Treatment Hospital Course: Detox Protocol Followed, Detoxed Safely, Responded well, Discharged Condition Good (declined) - Medication Discharge Medications: Ambulatory Orders Amlodipine Besylate [Norvasc -] 5 mg PO DAILY 03/05/18 Amoxicillin - [Amoxicillin 500mg Capsule -] 500 mg PO TID 03/05/18 Quetiapine Fumarate [Seroquel] 100 mg PO HS #30 tablet 03/06/18 - Diagnosis (1) Alcohol dependence with uncomplicated withdrawal Current Visit: Yes Status: Acute (2) Cocaine dependence Current Visit: Yes Status: Chronic Qualifiers: Substance use status: uncomplicated Qualified Code(s): F14.20 - Cocaine dependence, uncomplicated (3) History of right knee joint replacement Current Visit: Yes Status: Chronic (4) Old cerebrovascular accident (CVA) without late effect Current Visit: Yes Status: Chronic (5) Weight loss Current Visit: No Status: Acute (6) Hypertension Current Visit: Yes Status: Acute - AMA Did Patient Leave Against Medical Advice: No
[2018-03-10 10:03] VITALS: TEMP 98.1
[2018-03-10] MEDS: amLODIPine BESYLATE 5 MG TABLET (FP) PO SCH (10:08)
[2018-03-10] MEDS: PRENATAL VITAMINS W/ FOLIC ACID TABLET (FP) PO SCH (10:08)
[2018-03-10 15:43] VITALS: BP 120/87; PULSE 98
== END 2018-03-10 16:45 | disposition other institution (70) | DRG 774 ==
LOC: YASAS 15:29 → Y6N 22:02
PROVIDERS: ADMIT Surgery; ATTEND Surgery
PROC: HZ2ZZZZ Detoxification Services for Substance Abuse Treatment (ICD-10-PCS; principal; 2018-03-05)
DX: F10.230 Alcohol dependence with withdrawal, uncomplicated (principal); F10.220 Alcohol dependence with intoxication, uncomplicated; F14.20 Cocaine dependence, uncomplicated; F12.20 Cannabis dependence, uncomplicated; F17.210 Nicotine dependence, cigarettes, uncomplicated; F19.24 Other psychoactive substance dependence with psychoactive substance-induced mood disorder; F19.280 Other psychoactive substance dependence with psychoactive substance-induced anxiety disorder; E87.6 Hypokalemia; I10 Essential (primary) hypertension; D72.819 Decreased white blood cell count, unspecified; D64.9 Anemia, unspecified; K76.0 Fatty (change of) liver, not elsewhere classified; R94.5 Abnormal results of liver function studies; R79.89 Other specified abnormal findings of blood chemistry; R11.2 Nausea with vomiting, unspecified; Z86.73 Personal history of transient ischemic attack (TIA), and cerebral infarction without residual deficits; Z96.651 Presence of right artificial knee joint; Z87.898 Personal history of other specified conditions
CPT/HCPCS: 36415; 80053; 81003; 85025; 85027; 86593; 93005; 93010; J0735; Q0162

== ENCOUNTER 2018-03-10 16:57 | Inpatient (IN) | payer OTHER ==
--- NOTE | 2018-03-10 17:29 | HP ---
[facility] Rehab Assess/Revision - Admission History Admitted to Rehab from: [facility] [place] Date of Admission to Rehab: 03/10/18 - Findings Detox History & Physical reviewed: Yes Concur with findings: Yes Inpatient Rehab Admission - Initial Determination Are CD services needed?: Yes Free of communicable disease: Yes Not in need of hospitalization: Yes - Rehab Admission Criteria Previous failed treatment: Yes Poor recovery environment: Yes Comorbidities: Yes Lacks judgement: Yes Patient is meeting Inpatient Rehab admission criteria:: Yes
[2018-03-10] MEDS ORDERED: MAGNESIUM HYDROX 2400MG/30ML ORAL SUSPENSION 30 ML CUP PO PRN (17:30)
[2018-03-10] MEDS ORDERED: MENTHOL/PHENOL 1 EACH UD MM PRN (17:30)
[2018-03-10] MEDS ORDERED: hydrOXYzine PAMOATE 50 MG CAPSULE (FP) PO PRN (17:30)
[2018-03-10] MEDS ORDERED: MAG HYDROX/AL HYDROX/SIMETH 30 ML UNIT-DOSE CUP PO PRN (17:30)
[2018-03-10] MEDS ORDERED: LOPERAMIDE HCL 2 MG CAPSULE PO PRN (17:30)
[2018-03-10] MEDS ORDERED: ACETAMINOPHEN 325 MG TABLET (FP) PO PRN (17:30)
[2018-03-10] MEDS ORDERED: guaiFENesin/D-METHORPHAN HB 10 ML UNIT-DOSE CUPS PO PRN (17:30)
[2018-03-10] MEDS ORDERED: P-EPHED 60MG/TRIPROLIDI 2.5MG TABLET PO PRN (17:30)
[2018-03-10] MEDS ORDERED: MAGNESIUM CITRATE 300 ML BOTTLE PO PRN (17:30)
--- NOTE | 2018-03-10 17:35 | HP ---
Psychiatrist Admission - Data Date of interview: 03/10/18 Admission source: [address] [place] [address] Identifying data: This is the second admission to [address] [place] [address] for this 47 years old AA single female,mother of 4 ,residing with family,supported by PA. Medical History: H/O CVA,HTN,Knee replacement. Psychiatric History: Patient reports some sleeping difficulties on and off,no psychiatric treatment,no history of suicidal attempts.never been admitted to psychiatric hospital.Reports good response to Seroquel while in detox/rehab , placed on Seroquel 100 mg po hs in detox by . Physical/Sexual Abuse/Trauma History: denies Allergies/Adverse Reactions: Allergies Allergy/AdvReac Type Severity Reaction Status Date / Time beeswax Allergy Severe Difficulty Verified 03/05/18 22:07 Breathing coconut oil Allergy Severe Itching Verified 03/05/18 22:07 No Known Drug Allergies Allergy Severe Verified 03/05/18 22:07 Date of last physical exam: 03/05/18 Concur with the findings of this exam: Yes - Substance Abuse/Tx History Hx Alcohol Use: Yes (reports drinking since 18 yo,22 oz of beer daily) Hx Substance Use: Yes (marijuana since 25 yo,4 bl daily,cocaine since 18,PCP on/ off) Substance Use Type: Alcohol, Cocaine, Marijuana Hx Substance Use Treatment: Yes (left AMA this program 1 month ago) Mental Status Exam - Mental Status Exam Alert and Oriented to: Time, Place, Person Cognitive Function: Grossly Intact Patient Appearance: Unkempt Mood: Sad Affect: Labile Patient Behavior: Cooperative Speech Pattern: Clear Voice Loudness: Normal Thought Process: Goal Oriented Thought Disorder: Not Present Hallucinations: Denies Suicidal Ideation: Denies Homicidal Ideation: Denies Insight/Judgement: Fair Sleep: Fair Appetite: Fair Muscle strength/Tone: Normal Gait/Station: Normal Psychiatric Findings - Problem List ([place] 1, 2,3) (1) Hypertension Current Visit: Yes Status: Chronic (2) Leucopenia Current Visit: Yes Status: Suspected (3) Chronic knee pain Current Visit: Yes Status: Chronic Qualifiers: (4) Cocaine dependence Current Visit: Yes Status: Chronic Qualifiers: (5) Drug-induced mood disorder Current Visit: Yes Status: Chronic (6) History of right knee joint replacement Current Visit: Yes Status: Chronic (7) Old cerebrovascular accident (CVA) without late effect Current Visit: Yes Status: Inactive (8) PCP abuse Current Visit: Yes Status: Chronic (9) Alcohol dependence Current Visit: Yes Status: Chronic (10) Syncope Current Visit: Yes Status: Chronic (11) Anemia Current Visit: Yes Status: Chronic Qualifiers: Anemia type: unspecified type Qualified Code(s): D64.9 - Anemia, unspecified (12) Cannabis dependence Current Visit: No Status: Chronic (13) Hypertension Current Visit: No Status: Chronic Qualifiers: Hypertension type: essential hypertension Qualified Code(s): I10 - Essential (primary) hypertension - Initial Treatment Plan Initial Treatment Plan: Seroquel 100 mg po hs.
--- NOTE | 2018-03-10 19:19 | PN ---
[facility] Progress Note Note: Vital Signs Temperature 98.2 F 03/10/18 17:30 Pulse Rate 88 03/10/18 17:30 Respiratory Rate 18 03/10/18 17:30 Blood Pressure 110/73 03/10/18 17:30 O2 Sat by Pulse Oximetry (%) asymptomatic WBC =2 will repeat CBC in AM continue to monitor
[2018-03-10] MEDS: THIAMINE HCL 100 MG TABLET (FP) PO SCH (21:10)
[2018-03-10] MEDS: QUEtiapine FUMARATE 50 MG TABLET PO SCH (21:10)
[2018-03-11] MEDS: IBUPROFEN 400 MG TABLET (FP) PO PRN (09:39)
[2018-03-11] MEDS: PRENATAL VITAMINS W/ FOLIC ACID TABLET (FP) PO SCH (09:39)
[2018-03-11] MEDS: amLODIPine BESYLATE 5 MG TABLET (FP) PO SCH (09:39)
[2018-03-11 16:08] LABS: BASO % 0.7 % (0-2.0); EOS % 10.3 % (0-4.5); HEMOGLOBIN 12.2 GM/dL (10.7-15.3); LYMPH % 36.5 % (8-40); MCH 33.7 pg (25.7-33.7); MCHC 32.9 g/dl (32.0-36.0); MEAN CELL VOLUME 102.4 fl (80-96); MEAN PLT VOLUME 9.7 fl (7.5-11.1); MONO % 7.4 % (3.8-10.2); NEUT % 45.1 % (42.8-82.8); PLATELET COUNT 168 K/MM3 (134-434); RBC 3.62 M/mm3 (3.60-5.2); RDW 13.9 % (11.6-15.6); WHITE BLOOD COUNT 3.4 K/mm3 (4.0-10.0)
[2018-03-11] MEDS: QUEtiapine FUMARATE 50 MG TABLET PO SCH (21:18)
[2018-03-11] MEDS: THIAMINE HCL 100 MG TABLET (FP) PO SCH (21:18)
[2018-03-11 21:47] LABS: PLATELET ESTIMATE ADEQUATE
[2018-03-12] MEDS: PRENATAL VITAMINS W/ FOLIC ACID TABLET (FP) PO SCH (09:51)
[2018-03-12] MEDS: amLODIPine BESYLATE 5 MG TABLET (FP) PO SCH (09:51)
[2018-03-12] MEDS: IBUPROFEN 400 MG TABLET (FP) PO PRN (15:36)
[2018-03-12] MEDS: THIAMINE HCL 100 MG TABLET (FP) PO SCH (21:08)
[2018-03-12] MEDS: QUEtiapine FUMARATE 50 MG TABLET PO SCH (21:08)
[2018-03-13] MEDS: PRENATAL VITAMINS W/ FOLIC ACID TABLET (FP) PO SCH (09:43)
[2018-03-13] MEDS: amLODIPine BESYLATE 5 MG TABLET (FP) PO SCH (09:43)
--- NOTE | 2018-03-13 14:17 | PN ---
S Progress Note Note: Vital Signs Temperature 97.8 F 03/13/18 07:10 Pulse Rate 83 03/13/18 09:42 Respiratory Rate 18 03/13/18 07:10 Blood Pressure 124/86 03/13/18 09:42 O2 Sat by Pulse Oximetry (%) c/o right knee pain patient AOx3 no distress ambulating with cane, no joint effusion skin intact - right knee pain Plan: increase ibuprofen to 600mg TID cold compress PRN leg elevation continue to monitor
[2018-03-13] MEDS: IBUPROFEN 600 MG TABLET (FP) PO PRN ×2 (14:20→22:25)
[2018-03-13] MEDS: THIAMINE HCL 100 MG TABLET (FP) PO SCH (21:03)
[2018-03-13] MEDS: QUEtiapine FUMARATE 50 MG TABLET PO SCH (21:03)
[2018-03-14] MEDS: amLODIPine BESYLATE 5 MG TABLET (FP) PO SCH (10:02)
[2018-03-14] MEDS: PRENATAL VITAMINS W/ FOLIC ACID TABLET (FP) PO SCH (10:02)
[2018-03-14] MEDS: IBUPROFEN 600 MG TABLET (FP) PO PRN ×2 (12:44→21:19)
[2018-03-14] MEDS: QUEtiapine FUMARATE 50 MG TABLET PO SCH (21:18)
[2018-03-14] MEDS: THIAMINE HCL 100 MG TABLET (FP) PO SCH (21:18)
[2018-03-15] MEDS: PRENATAL VITAMINS W/ FOLIC ACID TABLET (FP) PO SCH (09:53)
[2018-03-15] MEDS: amLODIPine BESYLATE 5 MG TABLET (FP) PO SCH (09:53)
[2018-03-15] MEDS: IBUPROFEN 600 MG TABLET (FP) PO PRN ×2 (09:53→21:04)
[2018-03-15] MEDS: THIAMINE HCL 100 MG TABLET (FP) PO SCH (21:04)
[2018-03-15] MEDS: QUEtiapine FUMARATE 50 MG TABLET PO SCH (21:04)
[2018-03-16] MEDS: IBUPROFEN 600 MG TABLET (FP) PO PRN ×2 (09:55→21:24)
[2018-03-16] MEDS: amLODIPine BESYLATE 5 MG TABLET (FP) PO SCH (09:55)
[2018-03-16] MEDS: PRENATAL VITAMINS W/ FOLIC ACID TABLET (FP) PO SCH (09:55)
[2018-03-16] MEDS: THIAMINE HCL 100 MG TABLET (FP) PO SCH (21:24)
[2018-03-16] MEDS: QUEtiapine FUMARATE 50 MG TABLET PO SCH (21:24)
[2018-03-17] MEDS: PRENATAL VITAMINS W/ FOLIC ACID TABLET (FP) PO SCH (09:58)
[2018-03-17] MEDS: IBUPROFEN 600 MG TABLET (FP) PO PRN ×2 (09:58→21:09)
[2018-03-17] MEDS: amLODIPine BESYLATE 5 MG TABLET (FP) PO SCH (09:59)
[2018-03-17] MEDS ORDERED: COLLOIDAL OATMEAL 1 BAR EACH TP PRN (13:33)
[2018-03-17] MEDS: THIAMINE HCL 100 MG TABLET (FP) PO SCH (21:09)
[2018-03-17] MEDS: QUEtiapine FUMARATE 50 MG TABLET PO SCH (21:09)
[2018-03-18] MEDS: PRENATAL VITAMINS W/ FOLIC ACID TABLET (FP) PO SCH (10:01)
[2018-03-18] MEDS: amLODIPine BESYLATE 5 MG TABLET (FP) PO SCH (10:01)
[2018-03-18] MEDS: IBUPROFEN 600 MG TABLET (FP) PO PRN ×2 (10:01→21:06)
[2018-03-18] MEDS: QUEtiapine FUMARATE 50 MG TABLET PO SCH (21:06)
[2018-03-18] MEDS: THIAMINE HCL 100 MG TABLET (FP) PO SCH (21:06)
[2018-03-19] MEDS: PRENATAL VITAMINS W/ FOLIC ACID TABLET (FP) PO SCH (09:53)
[2018-03-19] MEDS: amLODIPine BESYLATE 5 MG TABLET (FP) PO SCH (09:53)
[2018-03-19] MEDS: IBUPROFEN 600 MG TABLET (FP) PO PRN ×2 (09:53→21:07)
[2018-03-19] MEDS: QUEtiapine FUMARATE 50 MG TABLET PO SCH (21:07)
[2018-03-19] MEDS: THIAMINE HCL 100 MG TABLET (FP) PO SCH (21:07)
[2018-03-20] MEDS: IBUPROFEN 600 MG TABLET (FP) PO PRN ×2 (10:09→21:26)
[2018-03-20] MEDS: PRENATAL VITAMINS W/ FOLIC ACID TABLET (FP) PO SCH (10:09)
[2018-03-20] MEDS: amLODIPine BESYLATE 5 MG TABLET (FP) PO SCH (10:09)
[2018-03-20] MEDS: THIAMINE HCL 100 MG TABLET (FP) PO SCH (21:26)
[2018-03-20] MEDS: QUEtiapine FUMARATE 50 MG TABLET PO SCH (21:26)
[2018-03-21] MEDS: IBUPROFEN 600 MG TABLET (FP) PO PRN ×2 (09:57→21:05)
[2018-03-21] MEDS: PRENATAL VITAMINS W/ FOLIC ACID TABLET (FP) PO SCH (09:58)
[2018-03-21] MEDS: amLODIPine BESYLATE 5 MG TABLET (FP) PO SCH (09:58)
[2018-03-21] MEDS: THIAMINE HCL 100 MG TABLET (FP) PO SCH (21:05)
[2018-03-21] MEDS: QUEtiapine FUMARATE 50 MG TABLET PO SCH (21:05)
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
[2018-03-22] MEDS: amLODIPine BESYLATE 5 MG TABLET (FP) PO SCH (09:52)
[2018-03-22] MEDS: IBUPROFEN 600 MG TABLET (FP) PO PRN ×2 (09:52→21:07)
[2018-03-22] MEDS: PRENATAL VITAMINS W/ FOLIC ACID TABLET (FP) PO SCH (09:52)
[2018-03-22] MEDS: QUEtiapine FUMARATE 50 MG TABLET PO SCH (21:08)
[2018-03-22] MEDS: MELATONIN 5 MG TABLETS PO PRN (21:08)
[2018-03-22] MEDS: THIAMINE HCL 100 MG TABLET (FP) PO SCH (21:08)
[2018-03-23] MEDS: IBUPROFEN 600 MG TABLET (FP) PO PRN ×2 (09:29→21:15)
[2018-03-23] MEDS: PRENATAL VITAMINS W/ FOLIC ACID TABLET (FP) PO SCH (09:29)
[2018-03-23] MEDS: amLODIPine BESYLATE 5 MG TABLET (FP) PO SCH (09:29)
[2018-03-23] MEDS: MELATONIN 5 MG TABLETS PO PRN (21:15)
[2018-03-23] MEDS: QUEtiapine FUMARATE 50 MG TABLET PO SCH (21:15)
[2018-03-23] MEDS: THIAMINE HCL 100 MG TABLET (FP) PO SCH (21:15)
[2018-03-24 06:59] VITALS: BP 143/95; PULSE 89; TEMP 97.5
--- NOTE | 2018-03-24 09:27 | PN ---
Psychiatric Progress Note Vital Signs: Vital Signs Period Temp Pulse Resp BP Sys/Enriquez Pulse Ox Last 24 Hr 97.5 F 89 16-16 143/95 Date of Session: 03/24/18 Chief Complaint:: Discharge visit Current Medications: Active Medications Generic Name Dose Route Start Last Admin Trade Name Freq PRN Reason Stop Dose Admin Acetaminophen 650 mg 03/10/18 17:30 Tylenol - PO Q4H PRN FEVER Al Hydroxide/Mg Hydroxide 30 ml 03/10/18 17:30 Mylanta Oral Suspension - PO Q6H PRN DYSPEPSIA Amlodipine Besylate 5 mg 03/11/18 10:00 03/23/18 09:29 Norvasc - PO 5 mg DAILY KRISTYN Administration Colloidal Oatmeal 1 applic 03/17/18 13:33 03/17/18 15:42 Aveeno Soap - TP 1 bar DAILY PRN Administration HYGEINE Eucalyptus/Menthol/Phenol/Sorbitol 1 each 03/10/18 17:30 Cepastat Lozenge - MM Q4H PRN SORE THROAT Guaifenesin 10 ml 03/10/18 17:30 Robitussin Dm - PO Q6H PRN COUGH Hydroxyzine Pamoate 50 mg 03/10/18 17:30 Vistaril - PO Q4H PRN AGITATION Ibuprofen 600 mg 03/13/18 14:13 03/23/18 21:15 Motrin - PO 600 mg Q8H PRN Administration PAIN LEVEL 6-10 Loperamide HCl 4 mg 03/10/18 17:30 Imodium - PO Q6H PRN DIARRHEA Magnesium Citrate 300 ml 03/10/18 17:30 Citroma - PO Q48H PRN CONSTIPATION Magnesium Hydroxide 30 ml 03/10/18 17:30 Milk Of Magnesia - PO DAILY PRN CONSTIPATION Melatonin 5 mg 03/10/18 22:00 03/23/18 21:15 Melatonin PO 5 mg HS PRN Administration INSOMNIA Multivit/Folic Acid/Iron 1 tab 03/11/18 10:00 03/23/18 09:29 Vitamins (Sjr) - PO 1 tab DAILY KRISTYN Administration Pseudoephedrine/Triprolidine 1 combo 03/10/18 17:30 Actifed - PO TID PRN NASAL CONGESTION Quetiapine Fumarate 50 mg 03/10/18 22:00 03/23/18 21:15 Seroquel - PO 50 mg HS KRISTYN Administration Thiamine HCl 100 mg 03/10/18 22:00 03/23/18 21:15 Vitamin B1 - PO 100 mg HS KRISTYN Administration Current Side Effect: No Lab tests ordered: No Lab tests reviewed: Yes Provider note:: Patient is stable for discharge today. Total face to face time:: 30 Psychiatric Treatment Plan - Problem List (1) Hypertension Current Visit: Yes (2) Leucopenia Current Visit: Yes (3) Chronic knee pain Current Visit: Yes Qualifiers: (4) Cocaine dependence Current Visit: Yes Qualifiers: (5) Drug-induced mood disorder Current Visit: Yes (6) History of right knee joint replacement Current Visit: Yes (7) Old cerebrovascular accident (CVA) without late effect Current Visit: Yes (8) PCP abuse Current Visit: Yes (9) Alcohol dependence Current Visit: Yes (10) Syncope Current Visit: Yes (11) Anemia Current Visit: Yes Qualifiers: Anemia type: unspecified type Qualified Code(s): D64.9 - Anemia, unspecified (12) Cannabis dependence Current Visit: No (13) Hypertension Current Visit: No Qualifiers: Hypertension type: essential hypertension Qualified Code(s): I10 - Essential (primary) hypertension
[2018-03-24] MEDS: amLODIPine BESYLATE 5 MG TABLET (FP) PO SCH (09:45)
[2018-03-24] MEDS: PRENATAL VITAMINS W/ FOLIC ACID TABLET (FP) PO SCH (09:45)
[2018-03-24] MEDS: IBUPROFEN 600 MG TABLET (FP) PO PRN (09:46)
== END 2018-03-24 10:04 | disposition home or self-care (01) | DRG 772 ==
LOC: YASAS 16:57 → Y3E 16:58
PROVIDERS: ADMIT Psychiatry & Neurology Psychiatry; ATTEND Psychiatry & Neurology Psychiatry
PROC: HZ42ZZZ Group Counseling for Substance Abuse Treatment, Cognitive-Behavioral (ICD-10-PCS; principal; 2018-03-10)
DX: F10.20 Alcohol dependence, uncomplicated (principal); F14.20 Cocaine dependence, uncomplicated; F16.10 Hallucinogen abuse, uncomplicated; F12.20 Cannabis dependence, uncomplicated; F19.24 Other psychoactive substance dependence with psychoactive substance-induced mood disorder; I10 Essential (primary) hypertension; F64.9 Gender identity disorder, unspecified; M25.561 Pain in right knee; G89.29 Other chronic pain; Z86.73 Personal history of transient ischemic attack (TIA), and cerebral infarction without residual deficits; Z96.659 Presence of unspecified artificial knee joint; Z91.038 Other insect allergy status
CPT/HCPCS: 36415; 85025

== ENCOUNTER 2018-05-01 10:34 | Inpatient (IN) | payer OTHER ==
[2018-05-01 10:58] VITALS: BMI 19.8
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
[2018-05-01] MEDS ORDERED: MENTHOL/PHENOL 1 EACH UD MM PRN (12:29)
[2018-05-01] MEDS ORDERED: guaiFENesin/D-METHORPHAN HB 10 ML UNIT-DOSE CUPS PO PRN (12:29)
[2018-05-01] MEDS ORDERED: MAGNESIUM HYDROX 2400MG/30ML ORAL SUSPENSION 30 ML CUP PO PRN (12:29)
[2018-05-01] MEDS ORDERED: MAG HYDROX/AL HYDROX/SIMETH 30 ML UNIT-DOSE CUP PO PRN (12:29)
[2018-05-01] MEDS ORDERED: P-EPHED 60MG/TRIPROLIDI 2.5MG TABLET PO PRN (12:29)
[2018-05-01] MEDS ORDERED: LOPERAMIDE HCL 2 MG CAPSULE PO PRN (12:29)
[2018-05-01] MEDS ORDERED: hydrOXYzine PAMOATE 25 MG CAPSULE (FP) PO PRN (12:29)
[2018-05-01] MEDS ORDERED: MAGNESIUM CITRATE 300 ML BOTTLE PO PRN (12:29)
[2018-05-01] MEDS ORDERED: ACETAMINOPHEN 325 MG TABLET (FP) PO PRN (12:29)
[2018-05-01] MEDS: amLODIPine BESYLATE 5 MG TABLET (FP) PO SCH (13:17)
[2018-05-01] MEDS: chlordiazePOXIDE HCL 25 MG CAPSULE PO PRN (13:17)
[2018-05-01] MEDS: chlordiazePOXIDE HCL 25 MG CAPSULE PO SCH ×2 (17:18→22:26)
[2018-05-01] MEDS: IBUPROFEN 400 MG TABLET (FP) PO PRN (17:21)
[2018-05-01 17:33] LABS: URINE APPEARANCE CLEAR; URINE BILIRUBIN NEGATIVE (<2.0 mg/dL); URINE COLOR STRAW; URINE GLUCOSE (UA) NEGATIVE (NEGATIVE); URINE KETONE NEGATIVE (NEGATIVE); URINE LEUK ESTERASE NEGATIVE (NEGATIVE); URINE NITRITE NEGATIVE (NEGATIVE); URINE PROTEIN NEGATIVE (NEGATIVE); URINE UROBILINOGEN NEGATIVE mg/dL (0.2-1.0)
[2018-05-01] MEDS ORDERED: MELATONIN 5 MG TABLETS PO PRN (22:00)
--- NOTE | 2018-05-01 22:16 | EKG ---
Test Reason : Blood Pressure : / mmHG Vent. Rate : 085 BPM Atrial Rate : 085 BPM P-R Int : 172 ms QRS Dur : 090 ms QT Int : 388 ms P-R-T Axes : 079 087 074 degrees QTc Int : 461 ms NORMAL SINUS RHYTHM SEPTAL INFARCT , AGE UNDETERMINED ABNORMAL ECG WHEN COMPARED WITH ECG OF 05-MAR-2018 22:52, NO SIGNIFICANT CHANGE WAS FOUND Confirmed by CYNDEE HOUGH MD ([id number]) on 05/01/2018 10:16:34 PM Referred By: Confirmed By:CYNDEE HOUGH MD
[2018-05-01] MEDS: THIAMINE HCL 100 MG TABLET (FP) PO SCH (22:26)
[2018-05-02] MEDS: chlordiazePOXIDE HCL 25 MG CAPSULE PO SCH ×4 (06:01→22:10)
--- NOTE | 2018-05-02 10:32 | PN ---
S CIWA - CIWA Score Nausea/Vomitin-Mild Nausea/No Vomiting Muscle Tremors: 3 Anxiety: 1-Mildly Anxious Agitation: 0-Normal Activity Paroxysmal Sweats: 3 Orientation: 0-Oriented Tacttile Disturbances: 0-None Auditory Disturbances: 0-None Visual Disturbances: 0-None Headache: 3-Moderate CIWA-Ar Total Score: 11 S Progress Note (SOAP) Subjective: HEADACHE, CHILLS, SWEATS AND SHAKES Objective: 05/02/18 10:30 Vital Signs Temperature 97.0 F L 05/02/18 09:45 Pulse Rate 65 05/02/18 09:45 Respiratory Rate 18 05/02/18 09:45 Blood Pressure 127/86 05/02/18 09:45 O2 Sat by Pulse Oximetry (%) Laboratory Tests 05/01/18 14:30 Urine Color Straw Urine Appearance Clear Urine pH 6.0 Ur Specific [place] 1.003 L Urine Protein Negative Urine Glucose (UA) Negative Urine Ketones Negative Urine Blood Negative Urine Nitrite Negative Urine Bilirubin Negative Urine Urobilinogen Negative Ur Leukocyte Esterase Negative PE: ALERT AND ORIENTED IN BED, WRAPPED IN BLANKETS SKIN + GOOSEFLESH AND MOIST EXT + TREMORS Assessment: 05/02/18 10:32 WITHDRAWAL SYNDROME Plan: CONTINUE ORAL FLUIDS DETOX ORDERED CONTINUE TO MONITOR CLINICALLY
[2018-05-02] MEDS: PRENATAL VITAMINS W/ FOLIC ACID TABLET (FP) PO SCH (10:50)
[2018-05-02] MEDS: amLODIPine BESYLATE 5 MG TABLET (FP) PO SCH (10:50)
[2018-05-02 11:05] LABS: HEMOGLOBIN 11.1 GM/dL (10.7-15.3); MCH 32.6 pg (25.7-33.7); MCHC 31.9 g/dl (32.0-36.0); MEAN CELL VOLUME 102.3 fl (80-96); PLATELET COUNT 221 K/MM3 (134-434); RBC 3.42 M/mm3 (3.60-5.2); WHITE BLOOD COUNT 4.5 K/mm3 (4.0-10.0)
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
[2018-05-02 11:25] LABS: ALBUMIN 3.9 g/dl (3.4-5.0); ALK PHOS 119 U/L (45-117); ANION GAP 9 MMOL/L (8-16); BILIRUBIN,TOTAL 0.2 mg/dL (0.2-1); BLOOD UREA NITROGEN 8 mg/dL (7-18); CALCIUM 8.9 mg/dL (8.5-10.1); CHLORIDE 108 mmol/L (98-107); CO2 25 mmol/L (21-32); CREATININE 0.7 mg/dL (0.55-1.3); GLUCOSE,RANDOM 98 mg/dL (74-106); SGOT/AST 57 U/L (15-37); SGPT/ALT 42 U/L (13-61); SODIUM 141 mmol/L (136-145); TOT PROT 8.8 g/dl (6.4-8.2)
[2018-05-02] MEDS ORDERED: FLU VACCINE QUAD 60 MCG/0.5 ML (MDV 18-19) IM ONE (12:00)
[2018-05-02] MEDS: IBUPROFEN 400 MG TABLET (FP) PO PRN (17:26)
[2018-05-02] MEDS: QUEtiapine FUMARATE 50 MG TABLET PO SCH (22:10)
[2018-05-02] MEDS: THIAMINE HCL 100 MG TABLET (FP) PO SCH (22:10)
[2018-05-03] MEDS: chlordiazePOXIDE HCL 25 MG CAPSULE PO SCH ×2 (05:18→10:13)
[2018-05-03] MEDS: PRENATAL VITAMINS W/ FOLIC ACID TABLET (FP) PO SCH (10:13)
[2018-05-03] MEDS: amLODIPine BESYLATE 5 MG TABLET (FP) PO SCH (10:13)
--- NOTE | 2018-05-03 10:17 | PN ---
S CIWA - CIWA Score Nausea/Vomitin-No Nausea/No Vomiting Muscle Tremors: None Anxiety: 2 Agitation: 2 Paroxysmal Sweats: No Perspiration Orientation: 0-Oriented Tacttile Disturbances: 0-None Auditory Disturbances: 0-None Visual Disturbances: 0-None Headache: 2-Mild CIWA-Ar Total Score: 6 BHS Progress Note (SOAP) Subjective: PATIENT WITH INTERMITTENT HEADACHE, ANXIOUS/GUARDED AT TIMES Objective: 05/03/18 10:16 Vital Signs Temperature 96.6 F L 05/03/18 06:00 Pulse Rate 73 05/03/18 06:00 Respiratory Rate 16 05/03/18 06:00 Blood Pressure 115/80 05/03/18 06:00 O2 Sat by Pulse Oximetry (%) Laboratory Tests 05/01/18 05/02/18 05/02/18 14:30 06:00 06:00 WBC 4.5 RBC 3.42 L Hgb 11.1 Hct 35.0 MCV 102.3 H MCH 32.6 MCHC 31.9 L RDW 15.0 Plt Count 221 D MPV 9.0 Sodium 141 Potassium 4.0 Chloride 108 H Carbon Dioxide 25 Anion Gap 9 BUN 8 Creatinine 0.7 Creat Clearance w eGFR > 60 Random Glucose 98 Calcium 8.9 Total Bilirubin 0.2 AST 57 H ALT 42 Alkaline Phosphatase 119 H Total Protein 8.8 H Albumin 3.9 Urine Color Straw Urine Appearance Clear Urine pH 6.0 Ur Specific [place] 1.003 L Urine Protein Negative Urine Glucose (UA) Negative Urine Ketones Negative Urine Blood Negative Urine Nitrite Negative Urine Bilirubin Negative Urine Urobilinogen Negative Ur Leukocyte Esterase Negative RPR Titer 05/02/18 06:00 WBC RBC Hgb Hct MCV MCH MCHC RDW Plt Count MPV Sodium Potassium Chloride Carbon Dioxide Anion Gap BUN Creatinine Creat Clearance w eGFR Random Glucose Calcium Total Bilirubin AST ALT Alkaline Phosphatase Total Protein Albumin Urine Color Urine Appearance Urine pH Ur Specific [place] Urine Protein Urine Glucose (UA) Urine Ketones Urine Blood Urine Nitrite Urine Bilirubin Urine Urobilinogen Ur Leukocyte Esterase RPR Titer Nonreactive ALERT AND ORIENTED AMB AD HARI SKIN INTACT, DRY EXT FULL ROM Assessment: 05/03/18 10:17 WITHDRAWAL SYNDROME Plan: DETOX ORDERED ENCOURAGED ORAL FLUIDS CONTINUE TO MONITOR
[2018-05-03] MEDS: chlordiazePOXIDE 5 MG CAPSULE PO SCH ×2 (17:56→22:58)
[2018-05-03] MEDS: chlordiazePOXIDE HCL 25 MG CAPSULE PO PRN (17:59)
[2018-05-03] MEDS: QUEtiapine FUMARATE 50 MG TABLET PO SCH (22:58)
[2018-05-03] MEDS: THIAMINE HCL 100 MG TABLET (FP) PO SCH (22:58)
[2018-05-04] MEDS: chlordiazePOXIDE 5 MG CAPSULE PO SCH ×2 (05:49→10:40)
[2018-05-04] MEDS: PRENATAL VITAMINS W/ FOLIC ACID TABLET (FP) PO SCH (10:40)
[2018-05-04] MEDS: amLODIPine BESYLATE 5 MG TABLET (FP) PO SCH (10:40)
--- NOTE | 2018-05-04 16:26 | PN ---
BHS Progress Note (SOAP) Subjective: feeling better no sweat less tremor social with peers Objective: 05/04/18 16:27 Vital Signs Temperature 98.4 F 05/04/18 15:38 Pulse Rate 106 H 05/04/18 15:38 Respiratory Rate 18 05/04/18 15:38 Blood Pressure 132/88 05/04/18 15:38 O2 Sat by Pulse Oximetry (%) Laboratory Last Values WBC 4.5 K/mm3 (4.0-10.0) 05/02/18 06:00 RBC 3.42 M/mm3 (3.60-5.2) L 05/02/18 06:00 Hgb 11.1 GM/dL (10.7-15.3) 05/02/18 06:00 Hct 35.0 % (32.4-45.2) 05/02/18 06:00 MCV 102.3 fl (80-96) H 05/02/18 06:00 MCH 32.6 pg (25.7-33.7) 05/02/18 06:00 MCHC 31.9 g/dl (32.0-36.0) L 05/02/18 06:00 RDW 15.0 % (11.6-15.6) 05/02/18 06:00 Plt Count 221 K/MM3 (134-434) D 05/02/18 06:00 MPV 9.0 fl (7.5-11.1) 05/02/18 06:00 Sodium 141 mmol/L (136-145) 05/02/18 06:00 Potassium 4.0 mmol/L (3.5-5.1) 05/02/18 06:00 Chloride 108 mmol/L (98-107) H 05/02/18 06:00 Carbon Dioxide 25 mmol/L (21-32) 05/02/18 06:00 Anion Gap 9 MMOL/L (8-16) 05/02/18 06:00 BUN 8 mg/dL (7-18) 05/02/18 06:00 Creatinine 0.7 mg/dL (0.55-1.3) 05/02/18 06:00 Creat Clearance w eGFR > 60 (>60) 05/02/18 06:00 Random Glucose 98 mg/dL (74-106) 05/02/18 06:00 Calcium 8.9 mg/dL (8.5-10.1) 05/02/18 06:00 Total Bilirubin 0.2 mg/dL (0.2-1) 05/02/18 06:00 AST 57 U/L (15-37) H 05/02/18 06:00 ALT 42 U/L (13-61) 05/02/18 06:00 Alkaline Phosphatase 119 U/L (45-117) H 05/02/18 06:00 Total Protein 8.8 g/dl (6.4-8.2) H 05/02/18 06:00 Albumin 3.9 g/dl (3.4-5.0) 05/02/18 06:00 Urine Color Straw 05/01/18 14:30 Urine Appearance Clear 05/01/18 14:30 Urine pH 6.0 (5.0-8.0) 05/01/18 14:30 Ur Specific [place] 1.003 (1.004-1.035) L 05/01/18 14:30 Urine Protein Negative (NEGATIVE) 05/01/18 14:30 Urine Glucose (UA) Negative (NEGATIVE) 05/01/18 14:30 Urine Ketones Negative (NEGATIVE) 05/01/18 14:30 Urine Blood Negative (NEGATIVE) 05/01/18 14:30 Urine Nitrite Negative (NEGATIVE) 05/01/18 14:30 Urine Bilirubin Negative (<2.0 mg/dL) 05/01/18 14:30 Urine Urobilinogen Negative mg/dL (0.2-1.0) 05/01/18 14:30 Ur Leukocyte Esterase Negative (NEGATIVE) 05/01/18 14:30 RPR Titer Nonreactive (NONREACTIVE) 05/02/18 06:00 lab noted Assessment: 05/04/18 16:27 mild withdrawal sx Plan: medically supervised detox
[2018-05-04] MEDS: chlordiazePOXIDE HCL 10 MG CAPSULE PO SCH ×2 (17:30→22:28)
[2018-05-04] MEDS: THIAMINE HCL 100 MG TABLET (FP) PO SCH (22:28)
[2018-05-04] MEDS: QUEtiapine FUMARATE 50 MG TABLET PO SCH (22:28)
[2018-05-05] MEDS: chlordiazePOXIDE HCL 10 MG CAPSULE PO SCH (05:23)
[2018-05-05 09:16] VITALS: BP 120/93; PULSE 87; TEMP 98
--- NOTE | 2018-05-05 12:50 | DS ---
[facility] Detox Discharge Summary Admission Date: 05/01/18 Discharge Date: 05/05/18 - History Present History: Alcohol Dependence Additional Comments: 47 years old female admitted on 05/01/18 for alcohol withdrawal sx completed detox regimen tolerated well denies alcohol withdrawal sx alert oriented x 3 no acute distress aftercare new focus - Physical Exam Results Vital Signs: Vital Signs Temperature 98.0 F 05/05/18 09:15 Pulse Rate 87 05/05/18 09:15 Respiratory Rate 18 05/05/18 09:15 Blood Pressure 120/93 05/05/18 09:15 O2 Sat by Pulse Oximetry (%) Pertinent Admission Physical Exam Findings: alcohol withdrawal sx Vital Signs Temperature 98.0 F 05/05/18 09:15 Pulse Rate 87 05/05/18 09:15 Respiratory Rate 18 05/05/18 09:15 Blood Pressure 120/93 05/05/18 09:15 O2 Sat by Pulse Oximetry (%) Laboratory Last Values WBC 4.5 K/mm3 (4.0-10.0) 05/02/18 06:00 RBC 3.42 M/mm3 (3.60-5.2) L 05/02/18 06:00 Hgb 11.1 GM/dL (10.7-15.3) 05/02/18 06:00 Hct 35.0 % (32.4-45.2) 05/02/18 06:00 MCV 102.3 fl (80-96) H 05/02/18 06:00 MCH 32.6 pg (25.7-33.7) 05/02/18 06:00 MCHC 31.9 g/dl (32.0-36.0) L 05/02/18 06:00 RDW 15.0 % (11.6-15.6) 05/02/18 06:00 Plt Count 221 K/MM3 (134-434) D 05/02/18 06:00 MPV 9.0 fl (7.5-11.1) 05/02/18 06:00 Sodium 141 mmol/L (136-145) 05/02/18 06:00 Potassium 4.0 mmol/L (3.5-5.1) 05/02/18 06:00 Chloride 108 mmol/L (98-107) H 05/02/18 06:00 Carbon Dioxide 25 mmol/L (21-32) 05/02/18 06:00 Anion Gap 9 MMOL/L (8-16) 05/02/18 06:00 BUN 8 mg/dL (7-18) 05/02/18 06:00 Creatinine 0.7 mg/dL (0.55-1.3) 05/02/18 06:00 Creat Clearance w eGFR > 60 (>60) 05/02/18 06:00 Random Glucose 98 mg/dL (74-106) 05/02/18 06:00 Calcium 8.9 mg/dL (8.5-10.1) 05/02/18 06:00 Total Bilirubin 0.2 mg/dL (0.2-1) 05/02/18 06:00 AST 57 U/L (15-37) H 05/02/18 06:00 ALT 42 U/L (13-61) 05/02/18 06:00 Alkaline Phosphatase 119 U/L (45-117) H 05/02/18 06:00 Total Protein 8.8 g/dl (6.4-8.2) H 05/02/18 06:00 Albumin 3.9 g/dl (3.4-5.0) 05/02/18 06:00 Urine Color Straw 05/01/18 14:30 Urine Appearance Clear 05/01/18 14:30 Urine pH 6.0 (5.0-8.0) 05/01/18 14:30 Ur Specific [place] 1.003 (1.004-1.035) L 05/01/18 14:30 Urine Protein Negative (NEGATIVE) 05/01/18 14:30 Urine Glucose (UA) Negative (NEGATIVE) 05/01/18 14:30 Urine Ketones Negative (NEGATIVE) 05/01/18 14:30 Urine Blood Negative (NEGATIVE) 05/01/18 14:30 Urine Nitrite Negative (NEGATIVE) 05/01/18 14:30 Urine Bilirubin Negative (<2.0 mg/dL) 05/01/18 14:30 Urine Urobilinogen Negative mg/dL (0.2-1.0) 05/01/18 14:30 Ur Leukocyte Esterase Negative (NEGATIVE) 05/01/18 14:30 RPR Titer Nonreactive (NONREACTIVE) 05/02/18 06:00 lab noted - Treatment Hospital Course: Detox Protocol Followed, Detoxed Safely, Responded well, Discharged Condition Good, Rehab Referral Accepted Patient has Accepted a Rehab Referral to: new focus - Medication Discharge Medications: Ambulatory Orders Quetiapine Fumarate [Seroquel -] 50 mg PO HS #30 tablet 03/24/18 Amlodipine Besylate [Norvasc -] 5 mg PO DAILY #30 tablet 05/04/18 - Diagnosis (1) Alcohol dependence with uncomplicated withdrawal Status: Acute (2) Substance induced mood disorder Status: Suspected (3) Weight loss Status: Acute (4) Hypertension Status: Chronic Qualifiers: Hypertension type: essential hypertension Qualified Code(s): I10 - Essential (primary) hypertension - AMA Did Patient Leave Against Medical Advice: No
== END 2018-05-05 09:35 | disposition home or self-care (01) | DRG 774 ==
LOC: YASAS 10:34 → Y6N 12:34
PROC: HZ2ZZZZ Detoxification Services for Substance Abuse Treatment (ICD-10-PCS; principal; 2018-05-01)
DX: F10.230 Alcohol dependence with withdrawal, uncomplicated (principal); F14.20 Cocaine dependence, uncomplicated; F12.20 Cannabis dependence, uncomplicated; F19.24 Other psychoactive substance dependence with psychoactive substance-induced mood disorder; F19.282 Other psychoactive substance dependence with psychoactive substance-induced sleep disorder; F43.10 Post-traumatic stress disorder, unspecified; F41.8 Other specified anxiety disorders; F32.9 Major depressive disorder, single episode, unspecified; I10 Essential (primary) hypertension; D64.9 Anemia, unspecified; R63.4 Abnormal weight loss; Z68.1 Body mass index [BMI] 19.9 or less, adult; Z86.73 Personal history of transient ischemic attack (TIA), and cerebral infarction without residual deficits; Z96.651 Presence of right artificial knee joint; Z91.5 Personal history of self-harm; M25.569 Pain in unspecified knee
CPT/HCPCS: 36415; 80053; 81003; 85027; 86593; 90688; 93005; 93010; G0008

== ENCOUNTER 2018-05-25 19:20 | Inpatient (IN) | payer OTHER ==
[2018-05-25 20:11] VITALS: BMI 19.5
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
[2018-05-25] MEDS ORDERED: guaiFENesin/D-METHORPHAN HB 10 ML UNIT-DOSE CUPS PO PRN (20:26)
[2018-05-25] MEDS ORDERED: hydrOXYzine PAMOATE 25 MG CAPSULE (FP) PO PRN (20:26)
[2018-05-25] MEDS ORDERED: LOPERAMIDE HCL 2 MG CAPSULE PO PRN (20:26)
[2018-05-25] MEDS ORDERED: MENTHOL/PHENOL 1 EACH UD MM PRN (20:26)
[2018-05-25] MEDS ORDERED: MAGNESIUM HYDROX 2400MG/30ML ORAL SUSPENSION 30 ML CUP PO PRN (20:26)
[2018-05-25] MEDS ORDERED: ACETAMINOPHEN 325 MG TABLET (FP) PO PRN (20:26)
[2018-05-25] MEDS ORDERED: P-EPHED 60MG/TRIPROLIDI 2.5MG TABLET PO PRN (20:26)
[2018-05-25] MEDS ORDERED: MAG HYDROX/AL HYDROX/SIMETH 30 ML UNIT-DOSE CUP PO PRN (20:26)
[2018-05-25] MEDS ORDERED: MAGNESIUM CITRATE 300 ML BOTTLE PO PRN (20:26)
[2018-05-25] MEDS ORDERED: chlordiazePOXIDE HCL 25 MG CAPSULE PO ONE (20:45)
[2018-05-25] MEDS: IBUPROFEN 400 MG TABLET (FP) PO PRN (21:11)
[2018-05-25] MEDS: chlordiazePOXIDE HCL 25 MG CAPSULE PO SCH (22:13)
[2018-05-25] MEDS: THIAMINE HCL 100 MG TABLET (FP) PO SCH (22:13)
[2018-05-25] MEDS: MELATONIN 5 MG TABLETS PO PRN (22:13)
[2018-05-25 22:45] LABS: URINE APPEARANCE CLOUDY; URINE BILIRUBIN NEGATIVE (<2.0 mg/dL); URINE COLOR AMBER; URINE GLUCOSE (UA) NEGATIVE (NEGATIVE); URINE KETONE NEGATIVE (NEGATIVE); URINE LEUK ESTERASE 2+ (NEGATIVE); URINE NITRITE NEGATIVE (NEGATIVE); URINE PROTEIN 1+ (NEGATIVE); URINE UROBILINOGEN 4.0 E.U/dl mg/dL (0.2-1.0)
[2018-05-25 22:53] LABS: EPI CELLS FEW /HPF (FEW); URINE BACTERIA MANY /hpf (NONE SEEN); URINE HYALINE CAST 10 /lpf; URINE MUCUS RARE; YEAST RARE
[2018-05-26] MEDS: chlordiazePOXIDE HCL 25 MG CAPSULE PO SCH ×4 (06:56→22:23)
[2018-05-26] MEDS: chlordiazePOXIDE HCL 25 MG CAPSULE PO PRN (08:02)
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
--- NOTE | 2018-05-26 09:56 | PN ---
[facility] CIWA - CIWA Score Nausea/Vomitin-No Nausea/No Vomiting Muscle Tremors: 4-Moderate,w/Arms Extend Anxiety: 4-Mod. Anxious/Guarded Agitation: 4-Moderately Restless Paroxysmal Sweats: 3 Orientation: 0-Oriented Tacttile Disturbances: 0-None Auditory Disturbances: 0-None Visual Disturbances: 0-None Headache: 0-None Present CIWA-Ar Total Score: 15 BHS Progress Note (SOAP) Subjective: sleepy sweats tired interrupted sleep body aches Objective: 05/26/18 09:55 Vital Signs Temperature 97.7 F 05/26/18 06:00 Pulse Rate 60 05/26/18 06:00 Respiratory Rate 16 05/26/18 06:00 Blood Pressure 104/74 05/26/18 06:00 O2 Sat by Pulse Oximetry (%) Laboratory Tests 05/25/18 22:30 Urine Color Sade Urine Appearance Cloudy Urine pH 5.0 Ur Specific [place] 1.012 Urine Protein 1+ H Urine Glucose (UA) Negative Urine Ketones Negative Urine Blood 1+ H Urine Nitrite Negative Urine Bilirubin Negative Urine Urobilinogen 4.0 e.u/dl H Ur Leukocyte Esterase 2+ H Urine WBC (Auto) 191 Urine RBC (Auto) 4 Ur Epithelial Cells Few Urine Bacteria Many Hyaline Casts 10 Urine Mucus Rare Urine Yeast Rare rest of labs pending repeat u/s aaox3 lying in bed no acute distress Assessment: 05/26/18 09:55 withdrawal sx Plan: continue detox increase fluids f/u pending labs
[2018-05-26 10:29] LABS: HEMATOCRIT 33.1 % (32.4-45.2); HEMOGLOBIN 10.7 GM/dL (10.7-15.3); MCH 32.7 pg (25.7-33.7); MCHC 32.5 g/dl (32.0-36.0); MEAN CELL VOLUME 100.8 fl (80-96); PLATELET COUNT 391 K/MM3 (134-434); RBC 3.28 M/mm3 (3.60-5.2); WHITE BLOOD COUNT 6.3 K/mm3 (4.0-10.0)
[2018-05-26] MEDS: PRENATAL VITAMINS W/ FOLIC ACID TABLET (FP) PO SCH (10:29)
[2018-05-26] MEDS: amLODIPine BESYLATE 5 MG TABLET (FP) PO SCH (10:30)
[2018-05-26 11:03] LABS: ALBUMIN 3.3 g/dl (3.4-5.0); ALK PHOS 83 U/L (45-117); ANION GAP 13 MMOL/L (8-16); BILIRUBIN,TOTAL 0.5 mg/dL (0.2-1); BLOOD UREA NITROGEN 13 mg/dL (7-18); CALCIUM 9.3 mg/dL (8.5-10.1); CHLORIDE 96 mmol/L (98-107); CO2 29 mmol/L (21-32); CREATININE 1.2 mg/dL (0.55-1.3); GLUCOSE,RANDOM 80 mg/dL (74-106); POTASSIUM 3.9 mmol/L (3.5-5.1); SGOT/AST 22 U/L (15-37); SGPT/ALT 21 U/L (13-61); SODIUM 138 mmol/L (136-145); TOT PROT 8.9 g/dl (6.4-8.2)
[2018-05-26] MEDS: IBUPROFEN 400 MG TABLET (FP) PO PRN (15:51)
[2018-05-26 19:55] LABS: URINE APPEARANCE CLOUDY; URINE BILIRUBIN NEGATIVE (<2.0 mg/dL); URINE COLOR AMBER; URINE GLUCOSE (UA) NEGATIVE (NEGATIVE); URINE KETONE NEGATIVE (NEGATIVE); URINE LEUK ESTERASE 3+ (NEGATIVE); URINE NITRITE POSITIVE (NEGATIVE); URINE PROTEIN 1+ (NEGATIVE); URINE UROBILINOGEN 4.0 E.U/dl mg/dL (0.2-1.0)
[2018-05-26 20:09] LABS: EPI CELLS MANY /HPF (FEW); URINE BACTERIA FEW /hpf (NONE SEEN); URINE MUCUS RARE
[2018-05-26] MEDS: THIAMINE HCL 100 MG TABLET (FP) PO SCH (22:22)
[2018-05-26] MEDS: QUEtiapine FUMARATE 100 MG TABLET (FP) PO SCH (22:22)
[2018-05-26] MEDS: MELATONIN 5 MG TABLETS PO PRN (22:24)
[2018-05-27] MEDS: chlordiazePOXIDE HCL 25 MG CAPSULE PO SCH ×3 (05:57→18:36)
[2018-05-27] MEDS: PRENATAL VITAMINS W/ FOLIC ACID TABLET (FP) PO SCH (10:17)
[2018-05-27] MEDS: amLODIPine BESYLATE 5 MG TABLET (FP) PO SCH (10:17)
[2018-05-27] MEDS: IBUPROFEN 400 MG TABLET (FP) PO PRN (10:19)
--- NOTE | 2018-05-27 10:55 | PN ---
[facility] CIWA - CIWA Score Nausea/Vomitin-No Nausea/No Vomiting Muscle Tremors: 3 Anxiety: 3 Agitation: 3 Paroxysmal Sweats: 3 Orientation: 0-Oriented Tacttile Disturbances: 0-None Auditory Disturbances: 0-None Visual Disturbances: 0-None Headache: 0-None Present CIWA-Ar Total Score: 12 S Progress Note (SOAP) Subjective: irritable agitation anxiety sweats Objective: 05/27/18 10:53 Vital Signs Temperature 98.1 F 05/27/18 09:57 Pulse Rate 92 H 05/27/18 09:57 Respiratory Rate 16 05/27/18 09:57 Blood Pressure 100/66 05/27/18 09:57 O2 Sat by Pulse Oximetry (%) Laboratory Tests 05/25/18 05/26/18 05/26/18 22:30 07:00 07:00 WBC 6.3 RBC 3.28 L Hgb 10.7 Hct 33.1 MCV 100.8 H MCH 32.7 MCHC 32.5 RDW 14.0 Plt Count 391 D MPV 8.0 D Sodium 138 Potassium 3.9 Chloride 96 L Carbon Dioxide 29 Anion Gap 13 BUN 13 Creatinine 1.2 Creat Clearance w eGFR 48.15 Random Glucose 80 Calcium 9.3 Total Bilirubin 0.5 AST 22 ALT 21 Alkaline Phosphatase 83 Total Protein 8.9 H Albumin 3.3 L Urine Color Sade Urine Appearance Cloudy Urine pH 5.0 Ur Specific [place] 1.012 Urine Protein 1+ H Urine Glucose (UA) Negative Urine Ketones Negative Urine Blood 1+ H Urine Nitrite Negative Urine Bilirubin Negative Urine Urobilinogen 4.0 e.u/dl H Ur Leukocyte Esterase 2+ H Urine WBC (Auto) 191 Urine RBC (Auto) 4 Ur Epithelial Cells Few Urine Bacteria Many Hyaline Casts 10 Urine Mucus Rare Urine Yeast Rare RPR Titer 05/26/18 05/26/18 07:00 15:50 WBC RBC Hgb Hct MCV MCH MCHC RDW Plt Count MPV Sodium Potassium Chloride Carbon Dioxide Anion Gap BUN Creatinine Creat Clearance w eGFR Random Glucose Calcium Total Bilirubin AST ALT Alkaline Phosphatase Total Protein Albumin Urine Color Sade Urine Appearance Cloudy Urine pH 5.0 Ur Specific [place] 1.017 Urine Protein 1+ H Urine Glucose (UA) Negative Urine Ketones Negative Urine Blood 1+ H Urine Nitrite Positive Urine Bilirubin Negative Urine Urobilinogen 4.0 e.u/dl H Ur Leukocyte Esterase 3+ H Urine WBC (Auto) 224 Urine RBC (Auto) 8 Ur Epithelial Cells Many Urine Bacteria Few Hyaline Casts Urine Mucus Rare Urine Yeast RPR Titer Nonreactive repeated labs show increase urine wbc aaox3 ambulating no acute distress bactrim ds bid x 14 days ordered Assessment: 05/27/18 10:55 withdrawal sx Plan: continue detox increase fluids abx ordered
[2018-05-27] MEDS: SULFAMETHOXAZOLE/TRIMETHOPRIM 800MG/160MG D.S. TABLET PO SCH ×2 (11:55→21:59)
[2018-05-27] MEDS: QUEtiapine FUMARATE 100 MG TABLET (FP) PO SCH (21:59)
[2018-05-27] MEDS: THIAMINE HCL 100 MG TABLET (FP) PO SCH (21:59)
[2018-05-27] MEDS: chlordiazePOXIDE 5 MG CAPSULE PO SCH (22:02)
[2018-05-27] MEDS: MELATONIN 5 MG TABLETS PO PRN (22:02)
[2018-05-28] MEDS: chlordiazePOXIDE 5 MG CAPSULE PO SCH ×3 (06:07→18:28)
[2018-05-28] MEDS: SULFAMETHOXAZOLE/TRIMETHOPRIM 800MG/160MG D.S. TABLET PO SCH ×2 (10:39→22:21)
[2018-05-28] MEDS: amLODIPine BESYLATE 5 MG TABLET (FP) PO SCH (10:39)
[2018-05-28] MEDS: PRENATAL VITAMINS W/ FOLIC ACID TABLET (FP) PO SCH (10:39)
--- NOTE | 2018-05-28 11:12 | PN ---
[facility] Progress Note (SOAP) Subjective: irritable agitation restless Objective: 05/28/18 11:10 Vital Signs Temperature 99.3 F 05/28/18 09:38 Pulse Rate 79 05/28/18 09:38 Respiratory Rate 16 05/28/18 09:38 Blood Pressure 109/69 05/28/18 09:38 O2 Sat by Pulse Oximetry (%) Laboratory Tests 05/25/18 05/26/18 05/26/18 22:30 07:00 07:00 WBC 6.3 RBC 3.28 L Hgb 10.7 Hct 33.1 MCV 100.8 H MCH 32.7 MCHC 32.5 RDW 14.0 Plt Count 391 D MPV 8.0 D Sodium 138 Potassium 3.9 Chloride 96 L Carbon Dioxide 29 Anion Gap 13 BUN 13 Creatinine 1.2 Creat Clearance w eGFR 48.15 Random Glucose 80 Calcium 9.3 Total Bilirubin 0.5 AST 22 ALT 21 Alkaline Phosphatase 83 Total Protein 8.9 H Albumin 3.3 L Urine Color Sade Urine Appearance Cloudy Urine pH 5.0 Ur Specific Bryson 1.012 Urine Protein 1+ H Urine Glucose (UA) Negative Urine Ketones Negative Urine Blood 1+ H Urine Nitrite Negative Urine Bilirubin Negative Urine Urobilinogen 4.0 e.u/dl H Ur Leukocyte Esterase 2+ H Urine WBC (Auto) 191 Urine RBC (Auto) 4 Ur Epithelial Cells Few Urine Bacteria Many Hyaline Casts 10 Urine Mucus Rare Urine Yeast Rare RPR Titer 05/26/18 05/26/18 07:00 15:50 WBC RBC Hgb Hct MCV MCH MCHC RDW Plt Count MPV Sodium Potassium Chloride Carbon Dioxide Anion Gap BUN Creatinine Creat Clearance w eGFR Random Glucose Calcium Total Bilirubin AST ALT Alkaline Phosphatase Total Protein Albumin Urine Color Sade Urine Appearance Cloudy Urine pH 5.0 Ur Specific Bryson 1.017 Urine Protein 1+ H Urine Glucose (UA) Negative Urine Ketones Negative Urine Blood 1+ H Urine Nitrite Positive Urine Bilirubin Negative Urine Urobilinogen 4.0 e.u/dl H Ur Leukocyte Esterase 3+ H Urine WBC (Auto) 224 Urine RBC (Auto) 8 Ur Epithelial Cells Many Urine Bacteria Few Hyaline Casts Urine Mucus Rare Urine Yeast RPR Titer Nonreactive repeated u/a improving slowly pt is currently on antibiotic and rx will be sent to pharmacy tomorrow. [id number] ambulating no acute distress Assessment: 05/28/18 11:12 mild withdrawal sx Plan: continue detox increase fluids continue abx as ordered d/c in am
[2018-05-28] MEDS: IBUPROFEN 400 MG TABLET (FP) PO PRN (15:37)
[2018-05-28] MEDS: chlordiazePOXIDE HCL 25 MG CAPSULE PO PRN (18:33)
[2018-05-28] MEDS: chlordiazePOXIDE HCL 10 MG CAPSULE PO SCH (22:21)
[2018-05-28] MEDS: THIAMINE HCL 100 MG TABLET (FP) PO SCH (22:21)
[2018-05-28] MEDS: QUEtiapine FUMARATE 100 MG TABLET (FP) PO SCH (22:21)
[2018-05-28] MEDS: MELATONIN 5 MG TABLETS PO PRN (22:22)
[2018-05-29] MEDS: chlordiazePOXIDE HCL 10 MG CAPSULE PO SCH ×2 (06:12→10:09)
--- NOTE | 2018-05-29 08:47 | DS ---
[facility] Detox Discharge Summary Admission Date: 05/25/18 Discharge Date: 05/29/18 - History Present History: Alcohol Dependence, Cannabis Dependence, Cocaine Dependence - Physical Exam Results Vital Signs: Vital Signs Temperature 97.7 F 05/29/18 07:12 Pulse Rate 73 05/29/18 07:12 Respiratory Rate 16 05/29/18 07:12 Blood Pressure 108/76 05/29/18 07:12 O2 Sat by Pulse Oximetry (%) - Treatment Hospital Course: Detox Protocol Followed, Detoxed Safely, Responded well, Discharged Condition Good, Rehab Referral Accepted - Medication Discharge Medications: Ambulatory Orders Quetiapine Fumarate [Seroquel -] 50 mg PO HS #30 tablet 03/24/18 Amlodipine Besylate [Norvasc -] 5 mg PO DAILY #30 tablet 05/04/18 Quetiapine Fumarate [Seroquel] 100 mg PO HS #30 tablet 05/26/18 - Diagnosis (1) Alcohol dependence with uncomplicated withdrawal Current Visit: Yes Status: Chronic (2) Anxiety and depression Current Visit: Yes Status: Chronic (3) Cannabis dependence Current Visit: Yes Status: Chronic (4) Cocaine dependence Current Visit: Yes Status: Chronic Qualifiers: Substance use status: uncomplicated Qualified Code(s): F14.20 - Cocaine dependence, uncomplicated (5) Hypertension Current Visit: Yes Status: Chronic Qualifiers: Hypertension type: essential hypertension Qualified Code(s): I10 - Essential (primary) hypertension (6) Insomnia Current Visit: Yes Status: Chronic Qualifiers: Insomnia type: drug-induced Qualified Code(s): F19.982 - Other psychoactive substance use, unspecified with psychoactive substance-induced sleep disorder (7) Other dental procedure status Current Visit: No Status: Acute (8) Substance-induced anxiety disorder Current Visit: No Status: Acute (9) Substance-induced sleep disorder Current Visit: No Status: Acute (10) Weight loss Current Visit: No Status: Acute (11) Anemia Current Visit: No Status: Chronic Qualifiers: Anemia type: unspecified type Qualified Code(s): D64.9 - Anemia, unspecified (12) Cannabis dependence Current Visit: No Status: Chronic (13) Chronic knee pain Current Visit: No Status: Chronic Qualifiers: (14) Drug-induced mood disorder Current Visit: No Status: Chronic (15) History of right knee joint replacement Current Visit: No Status: Chronic (16) Hypertension Current Visit: No Status: Chronic (17) PCP abuse Current Visit: No Status: Chronic (18) Syncope Current Visit: No Status: Chronic (19) Leucopenia Current Visit: No Status: Suspected (20) Substance induced mood disorder Current Visit: No Status: Suspected (21) Old cerebrovascular accident (CVA) without late effect Current Visit: No Status: Inactive
[2018-05-29] MEDS: IBUPROFEN 400 MG TABLET (FP) PO PRN (08:54)
[2018-05-29 09:18] VITALS: BP 99/57; PULSE 82; TEMP 97.9
[2018-05-29] MEDS: PRENATAL VITAMINS W/ FOLIC ACID TABLET (FP) PO SCH (10:09)
[2018-05-29] MEDS: amLODIPine BESYLATE 5 MG TABLET (FP) PO SCH (10:09)
[2018-05-29] MEDS: SULFAMETHOXAZOLE/TRIMETHOPRIM 800MG/160MG D.S. TABLET PO SCH (10:09)
== END 2018-05-29 11:16 | disposition other institution (70) | DRG 774 ==
LOC: YASAS 19:20 → Y6N 20:44
PROC: HZ2ZZZZ Detoxification Services for Substance Abuse Treatment (ICD-10-PCS; principal; 2018-05-25)
DX: F10.230 Alcohol dependence with withdrawal, uncomplicated (principal); F10.220 Alcohol dependence with intoxication, uncomplicated; F14.20 Cocaine dependence, uncomplicated; F12.20 Cannabis dependence, uncomplicated; F16.10 Hallucinogen abuse, uncomplicated; F41.9 Anxiety disorder, unspecified; F19.24 Other psychoactive substance dependence with psychoactive substance-induced mood disorder; F19.282 Other psychoactive substance dependence with psychoactive substance-induced sleep disorder; F19.280 Other psychoactive substance dependence with psychoactive substance-induced anxiety disorder; I10 Essential (primary) hypertension; D64.9 Anemia, unspecified; D72.819 Decreased white blood cell count, unspecified; R79.89 Other specified abnormal findings of blood chemistry; R01.1 Cardiac murmur, unspecified; R00.0 Tachycardia, unspecified; K76.0 Fatty (change of) liver, not elsewhere classified; M25.569 Pain in unspecified knee; G89.29 Other chronic pain; Z86.73 Personal history of transient ischemic attack (TIA), and cerebral infarction without residual deficits; Z96.651 Presence of right artificial knee joint; Z91.5 Personal history of self-harm
CPT/HCPCS: 36415; 80053; 81003; 81015; 85027; 86593

== ENCOUNTER 2018-05-29 10:51 | Inpatient (IN) | payer OTHER ==
--- NOTE | 2018-05-29 14:23 | HP ---
[facility] Rehab Assess/Revision - Admission History Admitted to Rehab from: [address] - Vital signs Vital Signs: Vital Signs Period Temp Pulse Resp BP Sys/Enriquez Pulse Ox Last 24 Hr 97.0 F 74 18 106/74 - Findings Detox History & Physical reviewed: Yes Concur with findings: Yes Inpatient Rehab Admission - Initial Determination Are CD services needed?: Yes Free of communicable disease: Yes Not in need of hospitalization: Yes - Rehab Admission Criteria Previous failed treatment: Yes Poor recovery environment: Yes Comorbidities: Yes Lacks judgement: Yes
[2018-05-29] MEDS ORDERED: MAGNESIUM HYDROX 2400MG/30ML ORAL SUSPENSION 30 ML CUP PO PRN (14:24)
[2018-05-29] MEDS ORDERED: guaiFENesin/D-METHORPHAN HB 10 ML UNIT-DOSE CUPS PO PRN (14:24)
[2018-05-29] MEDS ORDERED: MAGNESIUM CITRATE 300 ML BOTTLE PO PRN (14:24)
[2018-05-29] MEDS ORDERED: MENTHOL/PHENOL 1 EACH UD MM PRN (14:24)
[2018-05-29] MEDS ORDERED: P-EPHED 60MG/TRIPROLIDI 2.5MG TABLET PO PRN (14:24)
[2018-05-29] MEDS ORDERED: LOPERAMIDE HCL 2 MG CAPSULE PO PRN (14:24)
[2018-05-29] MEDS ORDERED: MAG HYDROX/AL HYDROX/SIMETH 30 ML UNIT-DOSE CUP PO PRN (14:24)
[2018-05-29] MEDS ORDERED: NICOTINE POLACRILEX 4 MG GUM BUC PRN (14:24)
--- NOTE | 2018-05-29 14:34 | PN ---
S Progress Note Note: Asked by nursing staff to reconcile medication for newly admitted patient from detox. Seroquel 100 mg po HS ordered
[2018-05-29] MEDS: IBUPROFEN 400 MG TABLET (FP) PO PRN (14:53)
[2018-05-29] MEDS: THIAMINE HCL 100 MG TABLET (FP) PO SCH (21:25)
[2018-05-29] MEDS: SULFAMETHOXAZOLE/TRIMETHOPRIM 800MG/160MG D.S. TABLET PO SCH (21:26)
[2018-05-29] MEDS: MELATONIN 5 MG TABLETS PO PRN (21:26)
[2018-05-29] MEDS: QUEtiapine FUMARATE 100 MG TABLET (FP) PO SCH (21:27)
[2018-05-30] MEDS: amLODIPine BESYLATE 5 MG TABLET (FP) PO SCH (10:07)
[2018-05-30] MEDS: PRENATAL VITAMINS W/ FOLIC ACID TABLET (FP) PO SCH (10:07)
[2018-05-30] MEDS: NICOTINE 21 MG/24 HOURS TOPICAL PATCH TD SCH (10:08)
[2018-05-30] MEDS: IBUPROFEN 400 MG TABLET (FP) PO PRN (10:08)
[2018-05-30] MEDS: SULFAMETHOXAZOLE/TRIMETHOPRIM 800MG/160MG D.S. TABLET PO SCH ×2 (10:08→21:18)
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
[2018-05-30] MEDS: hydrOXYzine PAMOATE 50 MG CAPSULE (FP) PO PRN ×2 (14:40→21:18)
[2018-05-30] MEDS: CYCLOBENZAPRINE HCL 10 MG TABLET (FP) PO PRN ×2 (14:57→21:18)
[2018-05-30] MEDS: MELATONIN 5 MG TABLETS PO PRN (21:18)
[2018-05-30] MEDS: QUEtiapine FUMARATE 100 MG TABLET (FP) PO SCH (21:18)
[2018-05-30] MEDS: THIAMINE HCL 100 MG TABLET (FP) PO SCH (21:18)
[2018-05-30] MEDS ORDERED: cloNIDine HCL 0.1 MG TABLET PO SCH (22:00)
[2018-05-31] MEDS: hydrOXYzine PAMOATE 50 MG CAPSULE (FP) PO PRN ×2 (08:30→13:10)
[2018-05-31] MEDS: amLODIPine BESYLATE 5 MG TABLET (FP) PO SCH (09:15)
[2018-05-31] MEDS: NICOTINE 21 MG/24 HOURS TOPICAL PATCH TD SCH (09:15)
[2018-05-31] MEDS: PRENATAL VITAMINS W/ FOLIC ACID TABLET (FP) PO SCH (09:15)
[2018-05-31] MEDS: SULFAMETHOXAZOLE/TRIMETHOPRIM 800MG/160MG D.S. TABLET PO SCH ×2 (09:15→21:30)
[2018-05-31] MEDS: IBUPROFEN 400 MG TABLET (FP) PO PRN (13:10)
[2018-05-31] MEDS: CYCLOBENZAPRINE HCL 10 MG TABLET (FP) PO PRN (21:30)
[2018-05-31] MEDS: MELATONIN 5 MG TABLETS PO PRN (21:30)
[2018-05-31] MEDS: QUEtiapine FUMARATE 100 MG TABLET (FP) PO SCH (21:30)
[2018-05-31] MEDS: THIAMINE HCL 100 MG TABLET (FP) PO SCH (21:30)
[2018-06-01] MEDS: hydrOXYzine PAMOATE 50 MG CAPSULE (FP) PO PRN ×2 (07:32→19:02)
[2018-06-01] MEDS: NICOTINE 21 MG/24 HOURS TOPICAL PATCH TD SCH (09:46)
[2018-06-01] MEDS: amLODIPine BESYLATE 5 MG TABLET (FP) PO SCH (09:46)
[2018-06-01] MEDS: SULFAMETHOXAZOLE/TRIMETHOPRIM 800MG/160MG D.S. TABLET PO SCH ×2 (09:46→21:12)
[2018-06-01] MEDS: PRENATAL VITAMINS W/ FOLIC ACID TABLET (FP) PO SCH (09:46)
[2018-06-01] MEDS: CYCLOBENZAPRINE HCL 10 MG TABLET (FP) PO PRN ×2 (09:47→21:12)
[2018-06-01] MEDS: IBUPROFEN 400 MG TABLET (FP) PO PRN (15:06)
[2018-06-01] MEDS: THIAMINE HCL 100 MG TABLET (FP) PO SCH (21:12)
[2018-06-01] MEDS: MELATONIN 5 MG TABLETS PO PRN (21:12)
[2018-06-01] MEDS: QUEtiapine FUMARATE 100 MG TABLET (FP) PO SCH (21:12)
[2018-06-02] MEDS: hydrOXYzine PAMOATE 50 MG CAPSULE (FP) PO PRN (06:22)
[2018-06-02] MEDS: PRENATAL VITAMINS W/ FOLIC ACID TABLET (FP) PO SCH (09:53)
[2018-06-02] MEDS: amLODIPine BESYLATE 5 MG TABLET (FP) PO SCH (09:53)
[2018-06-02] MEDS: SULFAMETHOXAZOLE/TRIMETHOPRIM 800MG/160MG D.S. TABLET PO SCH ×2 (09:53→21:23)
[2018-06-02] MEDS: NICOTINE 21 MG/24 HOURS TOPICAL PATCH TD SCH (09:54)
[2018-06-02] MEDS: IBUPROFEN 400 MG TABLET (FP) PO PRN (09:55)
[2018-06-02] MEDS ORDERED: ONDANSETRON *ODT* 4 MG TABLET SL PRN (13:28)
--- NOTE | 2018-06-02 13:29 | PN ---
S Progress Note Note: Vital Signs Temperature 97.7 F 06/02/18 06:33 Pulse Rate 89 06/02/18 09:21 Respiratory Rate 18 06/02/18 06:33 Blood Pressure 119/78 06/02/18 09:21 O2 Sat by Pulse Oximetry (%) c/o nausea and vomiting zofran prn continue to monitor
[2018-06-02] MEDS: CYCLOBENZAPRINE HCL 10 MG TABLET (FP) PO PRN (21:23)
[2018-06-02] MEDS: QUEtiapine FUMARATE 100 MG TABLET (FP) PO SCH (21:23)
[2018-06-02] MEDS: THIAMINE HCL 100 MG TABLET (FP) PO SCH (21:23)
[2018-06-02] MEDS: MELATONIN 5 MG TABLETS PO PRN (21:23)
[2018-06-03] MEDS: hydrOXYzine PAMOATE 50 MG CAPSULE (FP) PO PRN ×2 (07:04→21:31)
[2018-06-03] MEDS: IBUPROFEN 400 MG TABLET (FP) PO PRN (07:04)
[2018-06-03] MEDS: CYCLOBENZAPRINE HCL 10 MG TABLET (FP) PO PRN ×2 (07:04→21:30)
[2018-06-03] MEDS: amLODIPine BESYLATE 5 MG TABLET (FP) PO SCH (10:21)
[2018-06-03] MEDS: SULFAMETHOXAZOLE/TRIMETHOPRIM 800MG/160MG D.S. TABLET PO SCH ×2 (10:21→21:30)
[2018-06-03] MEDS: PRENATAL VITAMINS W/ FOLIC ACID TABLET (FP) PO SCH (10:21)
[2018-06-03] MEDS: ACETAMINOPHEN 325 MG TABLET (FP) PO PRN (10:22)
[2018-06-03] MEDS: QUEtiapine FUMARATE 100 MG TABLET (FP) PO SCH (21:30)
[2018-06-03] MEDS: THIAMINE HCL 100 MG TABLET (FP) PO SCH (21:30)
[2018-06-04] MEDS: CYCLOBENZAPRINE HCL 10 MG TABLET (FP) PO PRN ×2 (06:32→21:43)
[2018-06-04] MEDS: hydrOXYzine PAMOATE 50 MG CAPSULE (FP) PO PRN ×3 (06:33→21:43)
[2018-06-04] MEDS: amLODIPine BESYLATE 5 MG TABLET (FP) PO SCH (10:09)
[2018-06-04] MEDS: SULFAMETHOXAZOLE/TRIMETHOPRIM 800MG/160MG D.S. TABLET PO SCH ×2 (10:09→21:43)
[2018-06-04] MEDS: PRENATAL VITAMINS W/ FOLIC ACID TABLET (FP) PO SCH (10:09)
[2018-06-04] MEDS: IBUPROFEN 400 MG TABLET (FP) PO PRN (10:10)
[2018-06-04] MEDS: QUEtiapine FUMARATE 100 MG TABLET (FP) PO SCH (21:43)
[2018-06-04] MEDS: THIAMINE HCL 100 MG TABLET (FP) PO SCH (21:43)
[2018-06-05] MEDS: hydrOXYzine PAMOATE 50 MG CAPSULE (FP) PO PRN ×3 (06:52→21:23)
[2018-06-05] MEDS: CYCLOBENZAPRINE HCL 10 MG TABLET (FP) PO PRN ×2 (06:52→21:23)
[2018-06-05] MEDS: SULFAMETHOXAZOLE/TRIMETHOPRIM 800MG/160MG D.S. TABLET PO SCH ×2 (10:12→21:23)
[2018-06-05] MEDS: IBUPROFEN 400 MG TABLET (FP) PO PRN (10:12)
[2018-06-05] MEDS: amLODIPine BESYLATE 5 MG TABLET (FP) PO SCH (10:13)
[2018-06-05] MEDS: PRENATAL VITAMINS W/ FOLIC ACID TABLET (FP) PO SCH (10:13)
[2018-06-05] MEDS: THIAMINE HCL 100 MG TABLET (FP) PO SCH (21:23)
[2018-06-05] MEDS: MELATONIN 5 MG TABLETS PO PRN (21:23)
[2018-06-05] MEDS: QUEtiapine FUMARATE 100 MG TABLET (FP) PO SCH (21:23)
[2018-06-06] MEDS: IBUPROFEN 400 MG TABLET (FP) PO PRN (06:51)
[2018-06-06] MEDS: CYCLOBENZAPRINE HCL 10 MG TABLET (FP) PO PRN ×2 (06:51→21:20)
[2018-06-06] MEDS: hydrOXYzine PAMOATE 50 MG CAPSULE (FP) PO PRN ×2 (06:51→16:44)
[2018-06-06] MEDS: PRENATAL VITAMINS W/ FOLIC ACID TABLET (FP) PO SCH (10:08)
[2018-06-06] MEDS: SULFAMETHOXAZOLE/TRIMETHOPRIM 800MG/160MG D.S. TABLET PO SCH (10:08)
[2018-06-06] MEDS: amLODIPine BESYLATE 5 MG TABLET (FP) PO SCH (10:09)
[2018-06-06] MEDS: ACETAMINOPHEN 325 MG TABLET (FP) PO PRN (10:10)
--- NOTE | 2018-06-06 11:07 | PN ---
S Progress Note Note: pt states she is having vaginal discharge and would like to have treatment. States discharge is thick and yellow in color. Was recently treated for UTI with antibiotics. Will empirically treat for yeast infection and pt will f/u with PCP for further eval and management at d/c- pt agrees to plan.
[2018-06-06] MEDS: THIAMINE HCL 100 MG TABLET (FP) PO SCH (21:20)
[2018-06-06] MEDS: MELATONIN 5 MG TABLETS PO PRN (21:20)
[2018-06-06] MEDS: QUEtiapine FUMARATE 100 MG TABLET (FP) PO SCH (21:20)
[2018-06-06] MEDS: MICONAZOLE NITRATE 2% VAGINAL CREAM 45 GM TUBE VG SCH (21:20)
[2018-06-07] MEDS: CYCLOBENZAPRINE HCL 10 MG TABLET (FP) PO PRN ×3 (06:14→21:28)
[2018-06-07] MEDS: hydrOXYzine PAMOATE 50 MG CAPSULE (FP) PO PRN ×2 (06:14→21:28)
[2018-06-07] MEDS: PRENATAL VITAMINS W/ FOLIC ACID TABLET (FP) PO SCH (10:04)
[2018-06-07] MEDS: amLODIPine BESYLATE 5 MG TABLET (FP) PO SCH (10:04)
[2018-06-07] MEDS: IBUPROFEN 400 MG TABLET (FP) PO PRN (10:05)
[2018-06-07] MEDS: ACETAMINOPHEN 325 MG TABLET (FP) PO PRN (13:49)
[2018-06-07] MEDS: THIAMINE HCL 100 MG TABLET (FP) PO SCH (21:28)
[2018-06-07] MEDS: MELATONIN 5 MG TABLETS PO PRN (21:28)
[2018-06-07] MEDS: QUEtiapine FUMARATE 100 MG TABLET (FP) PO SCH (21:28)
[2018-06-07] MEDS: MICONAZOLE NITRATE 2% VAGINAL CREAM 45 GM TUBE VG SCH (21:29)
[2018-06-08] MEDS: hydrOXYzine PAMOATE 50 MG CAPSULE (FP) PO PRN ×2 (06:24→14:41)
[2018-06-08] MEDS: IBUPROFEN 400 MG TABLET (FP) PO PRN (06:24)
[2018-06-08] MEDS: CYCLOBENZAPRINE HCL 10 MG TABLET (FP) PO PRN ×2 (06:24→21:44)
[2018-06-08] MEDS: amLODIPine BESYLATE 5 MG TABLET (FP) PO SCH (09:56)
[2018-06-08] MEDS: PRENATAL VITAMINS W/ FOLIC ACID TABLET (FP) PO SCH (09:56)
[2018-06-08] MEDS: ACETAMINOPHEN 325 MG TABLET (FP) PO PRN (14:41)
[2018-06-08] MEDS: MELATONIN 5 MG TABLETS PO PRN (21:44)
[2018-06-08] MEDS: THIAMINE HCL 100 MG TABLET (FP) PO SCH (21:44)
[2018-06-08] MEDS: QUEtiapine FUMARATE 100 MG TABLET (FP) PO SCH (21:44)
[2018-06-08] MEDS: MICONAZOLE NITRATE 2% VAGINAL CREAM 45 GM TUBE VG SCH (21:45)
[2018-06-09] MEDS: CYCLOBENZAPRINE HCL 10 MG TABLET (FP) PO PRN ×2 (07:20→21:22)
[2018-06-09] MEDS: hydrOXYzine PAMOATE 50 MG CAPSULE (FP) PO PRN ×3 (07:20→21:22)
[2018-06-09] MEDS: PRENATAL VITAMINS W/ FOLIC ACID TABLET (FP) PO SCH (10:16)
[2018-06-09] MEDS: amLODIPine BESYLATE 5 MG TABLET (FP) PO SCH (10:16)
[2018-06-09] MEDS: IBUPROFEN 400 MG TABLET (FP) PO PRN ×2 (10:17→16:58)
[2018-06-09] MEDS: MICONAZOLE NITRATE 2% VAGINAL CREAM 45 GM TUBE VG SCH (21:21)
[2018-06-09] MEDS: QUEtiapine FUMARATE 100 MG TABLET (FP) PO SCH (21:22)
[2018-06-09] MEDS: MELATONIN 5 MG TABLETS PO PRN (21:22)
[2018-06-09] MEDS: THIAMINE HCL 100 MG TABLET (FP) PO SCH (21:22)
[2018-06-10] MEDS: hydrOXYzine PAMOATE 50 MG CAPSULE (FP) PO PRN ×3 (06:50→21:30)
[2018-06-10] MEDS: CYCLOBENZAPRINE HCL 10 MG TABLET (FP) PO PRN ×3 (06:50→21:30)
[2018-06-10] MEDS: amLODIPine BESYLATE 5 MG TABLET (FP) PO SCH (10:13)
[2018-06-10] MEDS: PRENATAL VITAMINS W/ FOLIC ACID TABLET (FP) PO SCH (10:13)
[2018-06-10] MEDS: IBUPROFEN 400 MG TABLET (FP) PO PRN ×2 (10:13→21:31)
[2018-06-10] MEDS: MELATONIN 5 MG TABLETS PO PRN (21:30)
[2018-06-10] MEDS: THIAMINE HCL 100 MG TABLET (FP) PO SCH (21:30)
[2018-06-10] MEDS: QUEtiapine FUMARATE 100 MG TABLET (FP) PO SCH (21:30)
[2018-06-10] MEDS: MICONAZOLE NITRATE 2% VAGINAL CREAM 45 GM TUBE VG SCH (21:30)
[2018-06-11] MEDS: hydrOXYzine PAMOATE 50 MG CAPSULE (FP) PO PRN (06:10)
[2018-06-11] MEDS: CYCLOBENZAPRINE HCL 10 MG TABLET (FP) PO PRN (06:10)
[2018-06-11] MEDS: IBUPROFEN 400 MG TABLET (FP) PO PRN (06:10)
[2018-06-11 06:57] VITALS: BP 137/93; PULSE 83; TEMP 97.7
[2018-06-11] MEDS: ACETAMINOPHEN 325 MG TABLET (FP) PO PRN (08:58)
[2018-06-11] MEDS: amLODIPine BESYLATE 5 MG TABLET (FP) PO SCH (09:00)
[2018-06-11] MEDS: PRENATAL VITAMINS W/ FOLIC ACID TABLET (FP) PO SCH (09:00)
--- NOTE | 2018-06-11 09:51 | PN ---
Psychiatric Progress Note Vital Signs: Vital Signs Period Temp Pulse Resp BP Sys/Enriquez Pulse Ox Last 24 Hr 97.7 F 83-102 -18 122-137/83-93 Date of Session: 06/11/18 Chief Complaint:: Discharge visit HPI: Patient addressed Alcohol,Cocainr,Cannabis dependence comorbid with Substance induced mood disorder. ROS: Old CVA,HTN. Current Medications: Active Medications Generic Name Dose Route Start Last Admin Trade Name Freq PRN Reason Stop Dose Admin Acetaminophen 650 mg 05/29/18 14:24 06/11/18 08:58 Tylenol - PO 650 mg Q4H PRN Administration FEVER Al Hydroxide/Mg Hydroxide 30 ml 05/29/18 14:24 Mylanta Oral Suspension - PO Q6H PRN DYSPEPSIA Amlodipine Besylate 5 mg 05/30/18 10:00 06/11/18 09:00 Norvasc - PO 5 mg DAILY KRISTYN Administration Cyclobenzaprine HCl 10 mg 05/30/18 10:47 06/11/18 06:10 Flexeril - PO 10 mg TID PRN Administration MUSCLE SPASMS Eucalyptus/Menthol/Phenol/Sorbitol 1 each 05/29/18 14:24 Cepastat Lozenge - MM Q4H PRN SORE THROAT Guaifenesin 10 ml 05/29/18 14:24 Robitussin Dm - PO Q6H PRN COUGH Hydroxyzine Pamoate 50 mg 05/29/18 14:24 06/11/18 06:10 Vistaril - PO 50 mg Q4H PRN Administration AGITATION Ibuprofen 400 mg 05/29/18 14:24 06/11/18 06:10 Motrin - PO 400 mg Q6H PRN Administration Pain Level 4-6 Loperamide HCl 4 mg 05/29/18 14:24 Imodium - PO Q6H PRN DIARRHEA Magnesium Citrate 300 ml 05/29/18 14:24 Citroma - PO Q48H PRN CONSTIPATION Magnesium Hydroxide 30 ml 05/29/18 14:24 Milk Of Magnesia - PO DAILY PRN CONSTIPATION Melatonin 5 mg 05/29/18 22:00 06/10/18 21:30 Melatonin PO 5 mg HS PRN Administration INSOMNIA Miconazole Nitrate 1 applic 06/06/18 22:00 06/10/18 21:30 Monistat-7 Vaginal Cream - VG 06/12/18 22:01 1 applic HS KRISTYN Administration Ondansetron HCl 4 mg 06/02/18 13:28 06/03/18 11:26 Zofran Odt - SL 4 mg Q8H PRN Administration NAUSEA AND/OR VOMITING Multivit/Folic Acid/Iron 1 tab 05/30/18 10:00 06/11/18 09:00 Vitamins (Sjr) - PO 1 tab DAILY KRISTYN Administration Pseudoephedrine/Triprolidine 1 combo 05/29/18 14:24 Actifed - PO TID PRN NASAL CONGESTION Quetiapine Fumarate 100 mg 05/29/18 22:00 06/10/18 21:30 Seroquel - PO 100 mg HS KRISTYN Administration Thiamine HCl 100 mg 05/29/18 22:00 06/10/18 21:30 Vitamin B1 - PO 100 mg HS KRISTYN Administration Current Side Effect: No Lab tests ordered: No Lab tests reviewed: Yes Provider note:: Patient comoleted this program today.She has met her treatment goals and will continue to address her issues on outpatient basis .Patient reports finding that current medications (seroquel 100 mg po hs) helps to cope with insomnia,mood instability.Script for 30 days provided. Supportive therapy provided focusing on relapse prevention. Patient is stable for discharge today. Total face to face time:: 30 Mental Status Exam - Mental Status Exam Alert and Oriented to: Time, Place, Person Cognitive Function: Grossly Intact Patient Appearance: Well Groomed Mood: Hopeful, Euthymic Affect: Mood Congruent, Normal Range Patient Behavior: Cooperative Speech Pattern: Clear Voice Loudness: Normal Thought Process: Goal Oriented Thought Disorder: Not Present Hallucinations: Denies Suicidal Ideation: Denies Homicidal Ideation: Denies Insight/Judgement: Fair Sleep: Fair Appetite: Good Muscle strength/Tone: Normal Gait/Station: Normal Psychiatric Treatment Plan - Problem List (2) Anemia Qualifiers: (9) Cocaine dependence Qualifiers: Substance use status: uncomplicated Qualified Code(s): F14.20 - Cocaine dependence, uncomplicated
== END 2018-06-11 09:05 | disposition home or self-care (01) | DRG 772 ==
LOC: YASAS 10:51 → Y3E 10:52
PROVIDERS: ADMIT Psychiatry & Neurology Psychiatry; ATTEND Psychiatry & Neurology Psychiatry
PROC: HZ42ZZZ Group Counseling for Substance Abuse Treatment, Cognitive-Behavioral (ICD-10-PCS; principal; 2018-05-29)
DX: F10.20 Alcohol dependence, uncomplicated (principal); F14.20 Cocaine dependence, uncomplicated; F12.20 Cannabis dependence, uncomplicated; F16.10 Hallucinogen abuse, uncomplicated; F19.24 Other psychoactive substance dependence with psychoactive substance-induced mood disorder; I10 Essential (primary) hypertension; D64.9 Anemia, unspecified; D72.819 Decreased white blood cell count, unspecified; B37.3 Candidiasis of vulva and vagina; Z96.651 Presence of right artificial knee joint; Z86.73 Personal history of transient ischemic attack (TIA), and cerebral infarction without residual deficits
CPT/HCPCS: Q0162

== ENCOUNTER 2018-09-14 12:18 | Inpatient (IN) | payer OTHER ==
--- NOTE | 2018-09-14 13:57 | PDOC ---
History of Present Illness - General Chief Complaint: Pain Stated Complaint: ABD PAIN / VOMITTING Time Seen by Provider: 09/14/18 13:55 History Source: Patient Exam Limitations: No Limitations Past History - Past Medical History Allergies/Adverse Reactions: Allergies Allergy/AdvReac Type Severity Reaction Status Date / Time beeswax Allergy Severe Difficulty Verified 09/14/18 12:51 Breathing coconut oil Allergy Severe Itching Verified 09/14/18 12:51 No Known Drug Allergies Allergy Severe Verified 09/14/18 12:51 Home Medications: Ambulatory Orders Quetiapine Fumarate [Seroquel -] 50 mg PO HS #30 tablet 03/24/18 Sulfamethoxazole/Trimethoprim [Bactrim DS -] 1 each PO BID 05/29/18 Amlodipine Besylate [Norvasc -] 5 mg PO DAILY #30 tablet 06/10/18 Quetiapine Fumarate [Seroquel] 100 mg PO HS #30 tablet 06/10/18 Anemia: Yes (no med) Asthma: No (Bronchitis) Cancer: No Cardiac Disorders: Yes (Heart Murmur) CVA: Yes (2003 RESOLVED WITHOUT ANY COMPLICATIONS) COPD: No CHF: No DVT: No Dementia: No Diabetes: No GI Disorders: Yes (GERD) Disorders: No HTN: Yes Hypercholesterolemia: No Kidney Stones: No Liver Disease: Yes (FATTY LIVER) Seizures: No Thyroid Disease: No - Surgical History Abdominal Surgery: Yes (hernia repair) Appendectomy: No Cardiac Surgery: No Cholecystectomy: No Lung Surgery: No Neurologic Surgery: No Orthopedic Surgery: Yes (right knee, 07/29/2015 [facility]) - Reproductive History PID: No - Suicide/Smoking/Psychosocial Hx Smoking Status: No Smoking History: Never smoked Have you smoked in the past 12 months: No Number of Cigarettes Smoked Daily: 0 Cigars Per Day: 0 Information on smoking cessation initiated: No 'Breaking Loose' booklet given: 05/25/18 Hx Alcohol Use: No Drug/Substance Use Hx: Yes (marijuana) Substance Use Type: Alcohol, Cocaine, Marijuana Hx Substance Use Treatment: Yes (completed this program in feb 2018) *Physical Exam - Vital Signs Last Vital Signs Temp Pulse Resp BP Pulse Ox 98.3 F 59 L 16 146/102 H 96 09/14/18 12:18 09/14/18 12:18 09/14/18 12:18 09/14/18 12:18 09/14/18 12:18 - Physical Exam Comments: Vitals stable, pt afebrile. Pt appears uncomfortable, thin body habitus. PE showed pt alert and oriented. upper extremity surgeon generally intact, muscular strength and sensation intact. Eyes PERRLA, EOMI. Oropharynx without erythema or exudates. No nasal congestion, hearing intact. Clear heart sounds, S1/S2, no JVD, b/l pedal edema, or heart murmur. Clear lung sounds, no respiratory distress, wheezes, crackles, or accessory muscle use. No abdominal or CVA tenderness to palpation, no rebound, no guarding. Abdomen soft, non-distended, and with normoactive bowel sounds. Skin without jaundice or rash. 09/14/18 14:47 Moderate Sedation - Procedure Monitoring Vital Signs: Procedure Monitoring Vital Signs Temperature 98.3 F 09/14/18 12:18 Pulse Rate 59 L 09/14/18 12:18 Respiratory Rate 16 09/14/18 12:18 Blood Pressure 146/102 H 09/14/18 12:18 O2 Sat by Pulse Oximetry (%) 96 09/14/18 12:18 ED Treatment Course - LABORATORY CBC & Chemistry Diagram: 09/14/18 14:50 09/14/18 14:05 Medical Decision Making - Medical Decision Making Pt was seen at bedside, also will be seen by attending Dr. Kelsey. Pt presenting with complaints of nausea, vomiting, and loose stool x6 days. Vitals stable, pt afebrile. Pt appears uncomfortable, thin body habitus. PE showed pt alert and oriented. upper extremity surgeon generally intact, muscular strength and sensation intact. Eyes PERRLA, EOMI. Oropharynx without erythema or exudates. No nasal congestion, hearing intact. Clear heart sounds, S1/S2, no JVD, b/l pedal edema, or heart murmur. Clear lung sounds, no respiratory distress, wheezes, crackles, or accessory muscle use. No abdominal or CVA tenderness to palpation, no rebound, no guarding. Abdomen soft, non-distended, and with normoactive bowel sounds. Skin without jaundice or rash. Considering [vs vs] Ordered work-up including CBC, CMP, Mg, lipase, ECG, lactic acid, serum beta-hcg , UA, urine culture, rapid flu. Provided 1 L IV NS, 4 mg IV zofran, 20 mg IV pepcid, and 1 g ofirmev for improvement of dehydration, nausea, and discomfort. Will continue to reassess pt and monitor for symptomatic improvement. 09/14/18 14:40 ECG: HR 67, QTc prolonged 515, no significant ST segment changes. Pt receiving fluids and medication now. Pt was very difficult IV stick, performed by Dr. Kelsey with US at bedside. Will reassess. CBC: WNL CMP: Na 132, Cl 94, AST 119, ALT 95 Lipase 141, lactic 2.4 (likely dehydration) Influenza negative Serum negative 09/14/18 15:56 Pt continues to complain of nausea, will hold on Haldol and additional zofran due to prolonged QTc. Will continue to provide fluids. 09/14/18 16:53 Providing additional 1 L IV NS and 1 mg IV ativan. Will PO challenge and then admit if pt not able to tolerate PO. 09/14/18 18:22 UA showed mild UTI -- pt asymptomatic and pt not tolerating PO intake ( ceftriaxone, levaquin, bactrim prolong QT) -- will leave appropriate PO meds ( macrobid) to inpatient team. Pt signed out to next resident team. Explained presentation, ED course, any pending results, and needed interventions to resident Dr. Lloyd. 09/14/18 18:56 *DC/Admit/Observation/Transfer Diagnosis at time of Disposition: Tetrahydrocannabinol (THC) use disorder, moderate, dependence Intractable vomiting with nausea Qualifiers: Vomiting type: unspecified Qualified Code(s): R11.2 - Nausea with vomiting, unspecified Hypertension Qualifiers: Hypertension type: unspecified Qualified Code(s): I10 - Essential (primary) hypertension - Discharge Dispostion Condition at time of disposition: Stable - Referrals - Patient Instructions - Post Discharge Activity
[2018-09-14] MEDS ORDERED: ACETAMINOPHEN 1000 MG/100 ML VIAL (NON FORMULARY) IVPB ONE (14:09)
[2018-09-14] MEDS ORDERED: ONDANSETRON 4 MG/2 ML VIAL IVPUSH ONE (14:09)
[2018-09-14] MEDS ORDERED: SODIUM CHLORIDE 1,000 ML IV STA ×2 (14:09→18:21)
[2018-09-14 15:37] LABS: ALBUMIN 3.3 g/dl (3.4-5.0); ALK PHOS 109 U/L (45-117); ANION GAP 13 MMOL/L (8-16); BILIRUBIN,TOTAL 0.5 mg/dL (0.2-1); BLOOD UREA NITROGEN 7 mg/dL (7-18); CHLORIDE 94 mmol/L (98-107); CO2 25 mmol/L (21-32); CREATININE 0.8 mg/dL (0.55-1.3); GLUCOSE,RANDOM 99 mg/dL (74-106); LIPASE 141 U/L (73-393); SGOT/AST 119 U/L (15-37); SGPT/ALT 95 U/L (13-61); SODIUM 132 mmol/L (136-145); TOT PROT 9.5 g/dl (6.4-8.2)
[2018-09-14 15:48] LABS: BASO % 0.7 % (0-2.0); EOS % 0.3 % (0-4.5); HEMATOCRIT 39.6 % (32.4-45.2); HEMOGLOBIN 13.7 GM/dL (10.7-15.3); LYMPH % 14.2 % (8-40); MCH 33.3 pg (25.7-33.7); MCHC 34.6 g/dl (32.0-36.0); MEAN CELL VOLUME 96.3 fl (80-96); MEAN PLT VOLUME 9.2 fl (7.5-11.1); MONO % 17.7 % (3.8-10.2); NEUT % 67.1 % (42.8-82.8); PLATELET COUNT 360 K/MM3 (134-434); RBC 4.11 M/mm3 (3.60-5.2); RDW 14.5 % (11.6-15.6); WHITE BLOOD COUNT 5.6 K/mm3 (4.0-10.0)
--- NOTE | 2018-09-14 16:20 | PDOC ---
Attending Attestation - Resident Resident Name: Faye Espinoza - ED Attending Attestation I have performed the following: I have examined & evaluated the patient, The case was reviewed & discussed with the resident, I agree w/resident's findings & plan, Exceptions are as noted - HPI HPI: 09/14/18 17:46 The patient is a 48 year old female, with a significant past medical history of CVA (03), fatty liver, and GERD, who presents to the emergency department with nausea, vomiting, abdominal pain, and loose stools. Endorses symptoms for approx 1 week. Has had similar episodes in the past. Pt has h/o polysubstance abuse but now only admits to using marijuana. She denies recent fevers, chills, headache or dizziness. She denies recent dysuria, frequency, urgency or hematuria. She denies recent chest pain or shortness of breath. Allergies: Beeswax, coconut oil Past surgical history: None reported. - Physicial Exam PE: 09/14/18 16:20 "GENERAL: Awake, alert, and fully oriented, in no acute distress. HEAD: No signs of trauma EYES: PERRLA, EOMI, sclera anicteric, conjunctiva clear ENT: Auricles normal inspection, hearing grossly normal, nares patent, oropharynx clear without exudates. Moist mucosa NECK: Nontender, no stepoffs, Normal ROM, supple, no lymphadenopathy, JVD, or masses LUNGS: Breath sounds equal, clear to auscultation bilaterally. No wheezes, and no crackles HEART: Regular rate and rhythm, normal S1 and S2, no murmurs, rubs or gallops ABDOMEN: Soft, nontender, normoactive bowel sounds. No guarding, no rebound. No masses EXTREMITIES: Normal range of motion, no edema. No clubbing or cyanosis. No cords, erythema, or tenderness NEUROLOGICAL: Cranial nerves II through XII intact. 5/5 strength and sensation in all extremities, Normal speech, normal gait, normal cerebellar function SKIN: Warm, Dry, normal turgor, no rashes or lesions noted. - Medical Decision Making 09/14/18 16:20 48 F with N/V, diffuse abdominal pain. Nontender abdomen. Suspect gastritis vs gastroenteritis vs gastroparesis vs CHS. Pt has h/o PSA but does not clinically appear to be withdrawing at this time. - Labs, lipase - GI cocktail 09/14/18 18:43 Labs notable for lactate 2.4, otherwise unremarkable Pt reassessed - still unable to tolerate PO EKG shows prolonged QT, cannot administer further antiemetics Ativan 1mg IV ordered
[2018-09-14] MEDS ORDERED: FAMOTIDINE 20 MG/50 ML IVPB 20 MG/50 ML MG IVPB ONE ×2 (16:24→17:13)
[2018-09-14] MEDS ORDERED: ONDANSETRON 4 MG/2 ML VIAL IVPB ONE (16:39)
[2018-09-14] MEDS ORDERED: ONDANSETRON 4 MG/2 ML VIAL ONE (16:51)
[2018-09-14 17:10] LABS: URINE APPEARANCE CLOUDY; URINE BILIRUBIN NEGATIVE (<2.0 mg/dL); URINE COLOR AMBER; URINE GLUCOSE (UA) NEGATIVE (NEGATIVE); URINE KETONE 1+ (NEGATIVE); URINE LEUK ESTERASE TRACE (NEGATIVE); URINE NITRITE POSITIVE (NEGATIVE); URINE PROTEIN 1+ (NEGATIVE)
[2018-09-14 17:23] LABS: EPI CELLS FEW /HPF (FEW); URINE BACTERIA MANY /hpf (NONE SEEN); URINE HYALINE CAST 10 /lpf; URINE MUCUS MODERATE
[2018-09-14 18:45] LABS: COCAINE, UR NEGATIVE ng/ml (CUTOFF=300); METHADONE, UR NEGATIVE ng/ml (CUTOFF=300); OPIATES, URI NEGATIVE ng/ml (CUTOFF=300); PHENCYCLIDINE,URINE NEGATIVE ng/ml (CUTOFF=25); URINE AMPHETAMINES NEGATIVE ng/ml (CUTOFF=500); URINE BARBITURATES NEGATIVE ng/ml (CUTOFF=200); URINE BENZODIAZEPINES NEGATIVE ng/ml (CUTOFF=200)
[2018-09-14] MEDS ORDERED: LORazepam 2 MG/ML SDV VIAL ONE (18:45)
--- NOTE | 2018-09-14 19:10 | PDOC ---
*Physical Exam - Vital Signs Last Vital Signs Temp Pulse Resp BP Pulse Ox 98.3 F 74 18 154/101 H 100 09/14/18 12:18 09/14/18 19:01 09/14/18 19:01 09/14/18 19:01 09/14/18 19:01 - Physical Exam General Appearance: Yes: Nourished, Thin HEENT: positive: Normal Voice, Hearing Grossly Normal Neck: positive: Trachea midline, Supple Respiratory/Chest: positive: Lungs Clear, Normal Breath Sounds Cardiovascular: positive: S1, S2. negative: Edema, JVD Gastrointestinal/Abdominal: positive: Other (Initial abdominal TTP; no abdominal TTP w/stethescope test) ED Treatment Course - LABORATORY CBC & Chemistry Diagram: 09/14/18 14:50 09/14/18 14:05 - ADDITIONAL ORDERS Additional order review: Laboratory Results 09/14/18 09/14/18 09/14/18 18:08 16:45 16:45 Sodium Potassium Chloride Carbon Dioxide Anion Gap BUN Creatinine Creat Clearance w eGFR Random Glucose Lactic Acid 1.1 Calcium Magnesium Total Bilirubin AST ALT Alkaline Phosphatase Total Protein Albumin Lipase Serum , Qual Urine Color Sade Urine Appearance Cloudy Urine pH 6.0 Ur Specific [place] 1.020 Urine Protein 1+ H Urine Glucose (UA) Negative Urine Ketones 1+ H Urine Blood Negative Urine Nitrite Positive Urine Bilirubin Negative Urine Urobilinogen 2.0 H Ur Leukocyte Esterase Trace Urine WBC (Auto) 35 Urine RBC (Auto) 1 Ur Epithelial Cells Few Urine Bacteria Many Hyaline Casts 10 Urine Mucus Moderate Opiates Screen Negative Methadone Screen Negative Barbiturate Screen Negative Phencyclidine Screen Negative Ur Amphetamines Screen Negative MDMA (Ecstasy) Screen Negative Benzodiazepines Screen Negative Cocaine Screen Negative U Marijuana (THC) Screen Positive A* 09/14/18 09/14/18 09/14/18 14:50 14:05 14:05 Sodium 132 L Potassium 4.0 Chloride 94 L Carbon Dioxide 25 Anion Gap 13 BUN 7 Creatinine 0.8 Creat Clearance w eGFR > 60 Random Glucose 99 Lactic Acid 2.4 H* Calcium 9.0 Magnesium 2.0 Total Bilirubin 0.5 AST 119 H ALT 95 H Alkaline Phosphatase 109 Total Protein 9.5 H Albumin 3.3 L Lipase 141 Serum , Qual Negative Urine Color Urine Appearance Urine pH Ur Specific [place] Urine Protein Urine Glucose (UA) Urine Ketones Urine Blood Urine Nitrite Urine Bilirubin Urine Urobilinogen Ur Leukocyte Esterase Urine WBC (Auto) Urine RBC (Auto) Ur Epithelial Cells Urine Bacteria Hyaline Casts Urine Mucus Opiates Screen Methadone Screen Barbiturate Screen Phencyclidine Screen Ur Amphetamines Screen MDMA (Ecstasy) Screen Benzodiazepines Screen Cocaine Screen U Marijuana (THC) Screen 09/14/18 14:50 RBC 4.11 MCV 96.3 H MCHC 34.6 RDW 14.5 MPV 9.2 D Neutrophils % 67.1 D Lymphocytes % 14.2 D Monocytes % 17.7 H D Eosinophils % 0.3 D Basophils % 0.7 - Medications Given in the ED: ED Medications Discontinued Medications Generic Name Dose Route Start Last Admin Trade Name Freq PRN Reason Stop Dose Admin Acetaminophen 1,000 mg 09/14/18 14:09 09/14/18 15:49 Ofirmev Injection - IVPB 09/14/18 14:10 1,000 mg ONCE ONE Administration Sodium Chloride 1,000 mls @ 1,000 mls/hr 09/14/18 14:09 09/14/18 16:01 Normal Saline - IV 09/14/18 15:08 1,000 mls/hr ASDIR STA Administration Famotidine/Sodium Chloride 20 mg in 50 mls @ 100 mls/hr 09/14/18 16:24 17:16 Pepcid 20 Mg Premixed Ivpb - IVPB 09/14/18 16:53 100 mls/hr ONCE ONE Administration Lorazepam 1 mg 09/14/18 18:21 09/14/18 18:59 Ativan Injection - IVPUSH 09/14/18 18:22 1 mg ONCE ONE Administration Ondansetron HCl 4 mg 09/14/18 14:09 09/14/18 15:38 Zofran Injection IVPUSH 09/14/18 14:10 4 mg ONCE ONE Administration Ondansetron HCl 4 mg 09/14/18 16:39 09/14/18 17:50 Zofran Injection IVPB 09/14/18 16:40 Not Given ONCE ONE Medical Decision Making - Medical Decision Making 09/14/18 19:42 Patient signed out by Dr. Espinoza (Resident) and Dr. Kelsey (Attending) 48 year old female c/o N/V, abdominal pain, loose stools. H/o cannabis abuse. Hypertensive w/other VS stable. Labs showed Lactic Acidosis, mild hyponatremia ( 132). Asymptomatic UTI. EKG shows prolonged QTc. Remains symptomatic s/p GI cocktail with failed PO trial. Will require admission for further evaluation. 09/14/18 19:47 Patient assessed @ bedside Repeat BP 142/96, other VSS Mild abdominal TTP on initial exam; no noted TTP on stethoscope exam Failed repeat PO challenge Hospitalist Microblogged 09/14/18 20:01 Case d/w Dr. Olivera (Resident) - will admit for further evaluation. Patient counseled on plan of care, amenable to admission *DC/Admit/Observation/Transfer Diagnosis at time of Disposition: Tetrahydrocannabinol (THC) use disorder, moderate, dependence Intractable vomiting with nausea Qualifiers: Vomiting type: unspecified Qualified Code(s): R11.2 - Nausea with vomiting, unspecified Hypertension Qualifiers: Hypertension type: unspecified Qualified Code(s): I10 - Essential (primary) hypertension - Discharge Dispostion Condition at time of disposition: Stable - Referrals - Patient Instructions - Post Discharge Activity
--- NOTE | 2018-09-14 20:16 | PN ---
Teaching Attending Note Name of Resident: Cheyanne Partida ATTENDING PHYSICIAN STATEMENT I saw and evaluated the patient. I reviewed the resident's note and discussed the case with the resident. I agree with the resident's findings and plan as documented. SUBJECTIVE: Patient is a 48 year old woman with a PMH of polysubstance abuse, alcohol abuse , CVA (03), fatty liver, depression, right knee replacement, suicide attempt at age 20 years, and GERD, who presents to the ER with nausea, vomiting, abdominal pain, and loose stools for about 1 week. Has had similar episodes in the past. She has history of polysubstance abuse but now only admits to using marijuana. Her LMP was 2.5 years ago. She denies recent fevers, chills, headache or dizziness. She denies recent dysuria, frequency, urgency or hematuria. She denies recent chest pain or shortness of breath. Got GI cocktail in the ER. OBJECTIVE: Alert Vital Signs Period Temp Pulse Resp BP Sys/Enriquez Pulse Ox Last 24 Hr 98.3 F 59-74 16-18 146-154/101-102 96-100 HEENT: No Jaundice, eye redness or discharge, PERRLA, EOMI. Normocephalic, atraumatic. Missing a lot of teeth; External ears are normal and hearing is grossly intact. No nasal discharge. Neck: Supple, nontender. No palpable adenopathy or thyromegaly. No JVD Chest: Good effort. Clear to auscultation and percussion. Heart: Regular. No S3, rub or murmur Abdomen: Not distended, soft, diffuse tenderness and no HSM. No rebound or guarding. Normoactive bowel sounds. Ext: Peripheral pulses intact. No leg edema. Skin: Warm and dry. No petechiae, rash or ecchymosis. Neuro: Alert. Oriented x3. CN 2-12 grossly intact. Sensation grossly intact in all four extremities and DTR are symmetric. Home Medications Medication Instructions Recorded Amlodipine Besylate [Norvasc -] 5 mg PO DAILY #30 tablet 06/10/18 Quetiapine Fumarate [Seroquel] 100 mg PO HS #30 tablet 06/10/18 Abnormal Lab Results 09/14/18 09/14/18 09/14/18 14:05 14:50 14:50 MCV 96.3 H Monocytes % 17.7 H D Sodium 132 L Chloride 94 L Lactic Acid 2.4 H* AST 119 H ALT 95 H Total Protein 9.5 H Albumin 3.3 L Urine Protein Urine Ketones Urine Urobilinogen U Marijuana (THC) Screen 09/14/18 09/14/18 16:45 16:45 MCV Monocytes % Sodium Chloride Lactic Acid AST ALT Total Protein Albumin Urine Protein 1+ H Urine Ketones 1+ H Urine Urobilinogen 2.0 H U Marijuana (THC) Screen Positive A* ASSESSMENT AND PLAN: 1. Abdominal Pain/Vomiting and Diarrhea - Symptoms may be due to effects of marijuana or viral gastroenteritis. Due to initial elevated lactic acid level and abnormal LFTs, will do sepsis work up including blood cultures and urine culture. Get hepatitis serology, CXR and abd/pelvic CT as well as stool analyses , ova and parasites. Will treat mild UTI with Rocephin, continue IV NS, give protonix 40 mg IV qd, use compazine for nausea in view of prolonged QTc. EKG shows NSR with no significant ST-T wave changes. CXR shows hyperinflation, but no infiltrates, pneumothorax or effusion. 2. Hypoalbuminemia - Possibly due to combined effects of malnutrition and inflammation associated with comorbid chronic conditions. Will ensure adequate dietary protein intake and also consult digital artist. 3. Drug and Alcohol abuse - Implement [facility] withdrawal protocol, fall and aspiration precautions. Treat with thiamine and folic acid and monitor electrolytes (Ca,Mg,K,P). Roving Sizer patient about abstaining from drug/alcohol and refer to alcohol detox upon discharge. Consult operations and maintenance specialist. 4. Hypertension - Restart outpatient antihypertensive drugs once she is able to take PO. Will use IV hydralazine 5 mg q 6 hours for SBP >160 mmHg. Nonpharmacologic measures to control hypertension like weight loss, salt restriction and exercise discussed. 5. DVT prophylaxis - Lovenox 40 mg SQ q 24 hours. 6. Advance directives - Full code
--- NOTE | 2018-09-14 20:56 | HP ---
CHIEF COMPLAINT: intractable nausea/vomiting x1 week PCP: none HISTORY OF PRESENT ILLNESS: 48F w/ pmhx of CVA (2002), GERD/gastritis, cocaine/marijuana abuse, HTN, depression presented to the ED with complaints of persistent nausea/vomiting since Saturday. Pt states she has had poor PO intake since the onset of these symptoms and is unable to keep anything down. She also reports subjective 15-20 lb weight loss over the past week based on the fit of her clothing, although she denies ever weighing herself. Pt states the last time she had these similar symptoms was about 10 years ago. She also states that she has non-bloody diarrhea everytime she tries to eat/drink anything. Pt complains of fever and chills as well as 7/10 generalized abdominal pain which is not alleviated by vomiting or bowel movements. She denies taking anything at home for her symptoms because she cannot tolerate PO meds. Additionally, she complains of chest pain that is worsened when she is vomiting and breathing deeply. Admits to headache localized in the center of her forehead that is non- radiating. She is also admits to shivers. Prior to the onset of these symptoms, she denied eating anything new and denies sick contacts. ER course was notable for: (1) BP 146/102 --> 160/116; Na 132, AST/ALT 119/95, Alk P 109, Lac 2.4 --> 1.1 (2) U/A showed +nitrites, trace LE, WBC 35; UCx pending; UTox +MJ (3) EKG showed prolonged QTc 515, HR 67, no ST-T changes (4) NS x 2L, IV Tylenol, Zofran 4 mg IVP x2, Pepcid 20 IVPB, Ativan 1 IVP given Recent Travel: Denies PAST MEDICAL HISTORY: CVA (2002) - per previous records GERD/gastritis cocaine/marijuana abuse HTN depression PAST SURGICAL HISTORY: R knee replacement (2016) hernia repair Social History: Smoking: Denies Alcohol: daily drinker ~6 beers/day; last drink was yesterday, although was unable to tolerate. Prior to this was last Saturday before onset of of symptoms Drugs: "smoke ~2 blunts daily"; stopped using cocaine ~6 months ago (used to smoke 8/day) but has done detox in the past Family History: Mom- HTN, DM Allergies beeswax Allergy (Severe, Verified 09/14/18 12:51) Difficulty Breathing hives, tongue swelling coconut oil Allergy (Severe, Verified 09/14/18 12:51) Itching No Known Drug Allergies Allergy (Severe, Verified 09/14/18 12:51) HOME MEDICATIONS: Home Medications Medication Instructions Recorded Amlodipine Besylate [Norvasc -] 5 mg PO DAILY #30 tablet 06/10/18 Quetiapine Fumarate [Seroquel] 100 mg PO HS #30 tablet 06/10/18 REVIEW OF SYSTEMS CONSTITUTIONAL: +f/c, malaise, shivers, unintentional weight loss HEENT: Denies rhinorrhea, nasal congestion, throat pain, throat swelling, CARDIOVASCULAR: +chest pain, +lightheadedness, -peripheral edema RESPIRATORY: Denies cough, shortness of breath, dyspnea with exertion GASTROINTESTINAL: Admits to abdominal pain, nausea, vomiting, diarrhea; Denies constipation, melena, hematochezia GENITOURINARY: Denies dysuria, frequency, urgency, hesitancy, hematuria MUSCULOSKELETAL: Denies myalgia, arthralgia NEUROLOGIC: Admits to headache, focal weakness or paresthesias, dizziness PHYSICAL EXAMINATION Vital Signs - 24 hr 09/14/18 09/14/18 12:18 19:01 Temperature 98.3 F Pulse Rate 59 L Pulse Rate [ 74 Apical] Respiratory 16 18 Rate Blood Pressure 146/102 H Blood Pressure 154/101 H [Right] O2 Sat by Pulse 96 100 Oximetry (%) GENERAL: AAOx3. Cooperative and responds to questions. Shivering under blanket. HEENT: AT/NC. EOMI. JOSE. Dry mucus membranes. Poor dentition. NECK: Normal range of motion, supple without lymphadenopathy, JVD, or masses. LUNGS: CTA B/L. No wheezes or crackles noted. HEART: RRR. Normal S1, S2. No murmurs noted. ABDOMEN: Soft, diffuse tenderness to palpation. No masses ecchymoses noted. Hypoactive bowel sounds. MUSCULOSKELETAL: Normal range of motion at all joints. No bony deformities or tenderness. No CVA tenderness. UPPER EXTREMITIES: 2+ pulses, warm, well-perfused. No cyanosis. No clubbing. No peripheral edema. 5/5 muscle strength b/l LOWER EXTREMITIES: 2+ pulses, warm, well-perfused. No calf tenderness. No peripheral edema. 5/5 muscle strenght b/l NEUROLOGICAL: Normal speech. Facial muscles intact. No facial droop. Laboratory Results - last 24 hr 09/14/18 09/14/18 09/14/18 14:05 14:05 14:50 WBC 5.6 RBC 4.11 Hgb 13.7 Hct 39.6 D MCV 96.3 H MCH 33.3 MCHC 34.6 RDW 14.5 Plt Count 360 MPV 9.2 D Absolute Neuts (auto) 3.8 Neutrophils % 67.1 D Lymphocytes % 14.2 D Monocytes % 17.7 H D Eosinophils % 0.3 D Basophils % 0.7 Nucleated RBC % 0 Sodium 132 L Potassium 4.0 Chloride 94 L Carbon Dioxide 25 Anion Gap 13 BUN 7 Creatinine 0.8 Creat Clearance w eGFR > 60 Random Glucose 99 Lactic Acid Calcium 9.0 Magnesium 2.0 Total Bilirubin 0.5 AST 119 H ALT 95 H Alkaline Phosphatase 109 Total Protein 9.5 H Albumin 3.3 L Lipase 141 Serum , Qual Negative Urine Color Urine Appearance Urine pH Ur Specific [place] Urine Protein Urine Glucose (UA) Urine Ketones Urine Blood Urine Nitrite Urine Bilirubin Urine Urobilinogen Ur Leukocyte Esterase Urine WBC (Auto) Urine RBC (Auto) Ur Epithelial Cells Urine Bacteria Hyaline Casts Urine Mucus Opiates Screen Methadone Screen Barbiturate Screen Phencyclidine Screen Ur Amphetamines Screen MDMA (Ecstasy) Screen Benzodiazepines Screen Cocaine Screen U Marijuana (THC) Screen Influenza A (Rapid) Influenza B (Rapid) 09/14/18 09/14/18 09/14/18 14:50 14:50 16:45 WBC RBC Hgb Hct MCV MCH MCHC RDW Plt Count MPV Absolute Neuts (auto) Neutrophils % Lymphocytes % Monocytes % Eosinophils % Basophils % Nucleated RBC % Sodium Potassium Chloride Carbon Dioxide Anion Gap BUN Creatinine Creat Clearance w eGFR Random Glucose Lactic Acid 2.4 H* Calcium Magnesium Total Bilirubin AST ALT Alkaline Phosphatase Total Protein Albumin Lipase Serum , Qual Urine Color Sade Urine Appearance Cloudy Urine pH 6.0 Ur Specific [place] 1.020 Urine Protein 1+ H Urine Glucose (UA) Negative Urine Ketones 1+ H Urine Blood Negative Urine Nitrite Positive Urine Bilirubin Negative Urine Urobilinogen 2.0 H Ur Leukocyte Esterase Trace Urine WBC (Auto) 35 Urine RBC (Auto) 1 Ur Epithelial Cells Few Urine Bacteria Many Hyaline Casts 10 Urine Mucus Moderate Opiates Screen Methadone Screen Barbiturate Screen Phencyclidine Screen Ur Amphetamines Screen MDMA (Ecstasy) Screen Benzodiazepines Screen Cocaine Screen U Marijuana (THC) Screen Influenza A (Rapid) Negative Influenza B (Rapid) Negative 09/14/18 09/14/18 16:45 18:08 WBC RBC Hgb Hct MCV MCH MCHC RDW Plt Count MPV Absolute Neuts (auto) Neutrophils % Lymphocytes % Monocytes % Eosinophils % Basophils % Nucleated RBC % Sodium Potassium Chloride Carbon Dioxide Anion Gap BUN Creatinine Creat Clearance w eGFR Random Glucose Lactic Acid 1.1 Calcium Magnesium Total Bilirubin AST ALT Alkaline Phosphatase Total Protein Albumin Lipase Serum , Qual Urine Color Urine Appearance Urine pH Ur Specific [place] Urine Protein Urine Glucose (UA) Urine Ketones Urine Blood Urine Nitrite Urine Bilirubin Urine Urobilinogen Ur Leukocyte Esterase Urine WBC (Auto) Urine RBC (Auto) Ur Epithelial Cells Urine Bacteria Hyaline Casts Urine Mucus Opiates Screen Negative Methadone Screen Negative Barbiturate Screen Negative Phencyclidine Screen Negative Ur Amphetamines Screen Negative MDMA (Ecstasy) Screen Negative Benzodiazepines Screen Negative Cocaine Screen Negative U Marijuana (THC) Screen Positive A* Influenza A (Rapid) Influenza B (Rapid) IMAGING: * EKG: NSR, HR 67, QTc 515 ms ASSESSMENT/PLAN: 48F w/ pmhx of CVA (2002), GERD/gastritis, cocaine/marijuana abuse, HTN, depression presented to the ED with complaints of persistent nausea/vomiting since Saturday #Intractable nausea/vomiting; likely 2/2 Cyclical Vomiting syndrome due to marijuana use vs. viral gastroenteritis, r/o colitis. -CTAP w/ IV contrast ordered to r/o infectious etiology; Pt has abd pain on physical exam. Await official read. -NPO -NS @ 100 for hydration -Pepcid 20 mg IVPB BID -Compazine PRN for nausea -Avoid QTc prolonging agents #Hypertension; 146/102 --> 160/116. -Pt states she takes Amlodipine, but does not recall dose. Need med-rec with pharmacy in AM. -Hydralazine 5 mg IVP Q6H PRN for systolic >160 -Will restart PO home meds once confirmed and pt can tolerate PO #UTI -U/A showed 35 WBC, +Trace LE; although pt has no urinary symptoms -Because pt may potentially have source of infection given, will give 1gm Ceftriaxone IVPB -UCx pending #Hx of Polysubstance abuse (alcohol/cocaine/marijuana) -CIWA ~7 -Pt states she last attempted to drink yesterday, but was unable to tolerate anything PO. Additionally, her last drink prior to yesterday's attempt was over 1 week ago, prior to the onset of her symptoms. Low suspicion for alcohol withdrawal, but will monitor for possible symptoms and consider Librium protocol. -Drug cessation counseling #Prophylaxis -Lovenox 40 SQ QD -Pepcid 20 mg IVPB BID #FEN -NS @ 100 -recheck lytes (Na) in AM -NPO, advance diet as tolerated dispo -admit to med-surg obs -meds need to be reconciled Visit type - Emergency Visit Emergency Visit: Yes ED Registration Date: 09/15/18 Care time: The patient presented to the Emergency Department on the above date and was hospitalized for further evaluation of their emergent condition. - New Patient This patient is new to me today: Yes Date on this admission: 09/15/18 - Critical Care Critical Care patient: No
[2018-09-14] MEDS ORDERED: ENOXAPARIN NA (PORCINE) 40 MG/0.4 ML DISP.SYRIN SQ ONE (22:04)
[2018-09-14] MEDS ORDERED: CEFTRIAXONE 1 GM/50 ML BAG ONE (22:04)
[2018-09-14] MEDS ORDERED: hydrALAZINE HCL 20 MG/ML VIAL IVPUSH ONE (22:15)
[2018-09-14] MEDS ORDERED: PROCHLORPERAZINE INJECTION 10 MG/2 ML VIAL IVPB ONE (22:15)
[2018-09-14] MEDS ORDERED: CEFTRIAXONE 1 GM in DEXTROSE 5%-WATER - 100 ML IVPB ONE (22:15)
[2018-09-14] MEDS: SODIUM CHLORIDE 0.45% 1,000 ML IV SCH (22:20)
[2018-09-14] MEDS: FAMOTIDINE 20 MG/50 ML IVPB 20 MG/50 ML MG IVPB SCH (22:21)
[2018-09-14] MEDS: ENOXAPARIN NA (PORCINE) 40 MG/0.4 ML DISP.SYRIN SQ SCH (22:21)
[2018-09-14] MEDS ORDERED: FOLIC ACID 1 MG TABLET (FP) PO ONE (22:30)
[2018-09-14] MEDS ORDERED: THIAMINE HCL 100 MG TABLET (FP) PO ONE (22:30)
[2018-09-15] MEDS ORDERED: hydrALAZINE HCL 20 MG/ML VIAL IVPUSH PRN (00:58)
[2018-09-15 07:59] LABS: BASO % 0.9 % (0-2.0); EOS % 1.5 % (0-4.5); HEMATOCRIT 34.3 % (32.4-45.2); HEMOGLOBIN 11.6 GM/dL (10.7-15.3); LYMPH % 19.5 % (8-40); MCHC 33.7 g/dl (32.0-36.0); MEAN CELL VOLUME 97.9 fl (80-96); MONO % 13.2 % (3.8-10.2); NEUT % 64.9 % (42.8-82.8); PLATELET COUNT 357 K/MM3 (134-434); RDW 14.9 % (11.6-15.6); WHITE BLOOD COUNT 6.3 K/mm3 (4.0-10.0)
[2018-09-15 08:58] LABS: ALBUMIN 2.7 g/dl (3.4-5.0); ALK PHOS 88 U/L (45-117); ANION GAP 11 MMOL/L (8-16); BILIRUBIN,TOTAL 0.3 mg/dL (0.2-1); BLOOD UREA NITROGEN 7 mg/dL (7-18); CALCIUM 8.2 mg/dL (8.5-10.1); CHLORIDE 102 mmol/L (98-107); CO2 23 mmol/L (21-32); CREATININE 0.6 mg/dL (0.55-1.3); GLUCOSE,RANDOM 78 mg/dL (74-106); POTASSIUM 3.1 mmol/L (3.5-5.1); SGOT/AST 46 U/L (15-37); SGPT/ALT 59 U/L (13-61); SODIUM 136 mmol/L (136-145); TOT PROT 7.4 g/dl (6.4-8.2)
[2018-09-15] MEDS: FAMOTIDINE 20 MG/50 ML IVPB 20 MG/50 ML MG IVPB SCH ×2 (09:19→21:08)
[2018-09-15] MEDS: ENOXAPARIN NA (PORCINE) 40 MG/0.4 ML DISP.SYRIN SQ SCH (09:19)
--- NOTE | 2018-09-15 10:05 | PN ---
Progress Note (short form) - Note Progress Note: Patient is a 48yo female with no pmhx of CVA (2002), GERD/gastritis, cocaine/ marijuana abuse, HTN, depression presented to the ED with complaints of persistent nausea/vomiting since Saturday. Patient feels better with no acute distress. Vital Signs Temperature 98.3 F 09/15/18 09:51 Pulse Rate 74 09/15/18 09:51 Respiratory Rate 20 09/15/18 09:51 Blood Pressure 136/83 09/15/18 09:51 O2 Sat by Pulse Oximetry (%) 100 09/14/18 21:54 GENERAL: AAOx3. Cooperative and responds to questions. Shivering under blanket. HEENT: AT/NC. EOMI. JOSE. Dry mucus membranes. Poor dentition. NECK: Normal range of motion, supple without lymphadenopathy, JVD, or masses. LUNGS: CTA B/L. No wheezes or crackles noted. HEART: RRR. Normal S1, S2. No murmurs noted. ABDOMEN: Soft, diffuse tenderness to palpation. No masses ecchymoses noted. Hypoactive bowel sounds. MUSCULOSKELETAL: Normal range of motion at all joints. No bony deformities or tenderness. No CVA tenderness. EXTREMITIES: 2+ pulses, warm, well-perfused. No cyanosis. No clubbing. No peripheral edema. 5/5 muscle strength b/l NEUROLOGICAL: Normal speech. Facial muscles intact. No facial droop. CBCD WBC 6.3 K/mm3 (4.0-10.0) 09/15/18 06:15 RBC 3.50 M/mm3 (3.60-5.2) L 09/15/18 06:15 Hgb 11.6 GM/dL (10.7-15.3) 09/15/18 06:15 Hct 34.3 % (32.4-45.2) 09/15/18 06:15 MCV 97.9 fl (80-96) H 09/15/18 06:15 MCHC 33.7 g/dl (32.0-36.0) 09/15/18 06:15 RDW 14.9 % (11.6-15.6) 09/15/18 06:15 Plt Count 357 K/MM3 (134-434) 09/15/18 06:15 MPV 8.0 fl (7.5-11.1) D 09/15/18 06:15 CMP Sodium 136 mmol/L (136-145) 09/15/18 06:15 Potassium 3.1 mmol/L (3.5-5.1) L 09/15/18 06:15 Chloride 102 mmol/L (98-107) 09/15/18 06:15 Carbon Dioxide 23 mmol/L (21-32) 09/15/18 06:15 Anion Gap 11 MMOL/L (8-16) 09/15/18 06:15 BUN 7 mg/dL (7-18) 09/15/18 06:15 Creatinine 0.6 mg/dL (0.55-1.3) 09/15/18 06:15 Creat Clearance w eGFR > 60 (>60) 09/15/18 06:15 Random Glucose 78 mg/dL (74-106) 09/15/18 06:15 Calcium 8.2 mg/dL (8.5-10.1) L 09/15/18 06:15 Total Bilirubin 0.3 mg/dL (0.2-1) 09/15/18 06:15 AST 46 U/L (15-37) H 09/15/18 06:15 ALT 59 U/L (13-61) 09/15/18 06:15 Alkaline Phosphatase 88 U/L (45-117) 09/15/18 06:15 Total Protein 7.4 g/dl (6.4-8.2) 09/15/18 06:15 Albumin 2.7 g/dl (3.4-5.0) L 09/15/18 06:15 Current Medications Generic Name Dose Route Start Last Admin Trade Name Freq PRN Reason Stop Dose Admin Enoxaparin Sodium 40 mg 09/14/18 21:00 09/15/18 09:19 Lovenox - SQ 40 mg DAILY KRISTYN Administration dc lovenox Hydralazine HCl 5 mg 09/15/18 00:58 Apresoline Injection - IVPUSH Q6H PRN HYPERTENSION Sodium Chloride 1,000 mls @ 100 mls/hr 09/14/18 21:00 09/14/18 22:20 1/2 Normal Saline IV 100 mls/hr ASDIR KRISTYN Administration Famotidine/Sodium Chloride 20 mg in 50 mls @ 100 mls/hr 09/14/18 22:00 09:19 Pepcid 20 Mg Premixed Ivpb - IVPB 100 mls/hr BID KRISTYN Administration Home Medications Medication Instructions Recorded Amlodipine Besylate [Norvasc -] 5 mg PO DAILY #30 tablet 06/10/18 Quetiapine Fumarate [Seroquel] 100 mg PO HS #30 tablet 06/10/18 Urine Test Results Urine Color Sade 09/14/18 16:45 Urine Appearance Cloudy 09/14/18 16:45 Urine pH 6.0 (5.0-8.0) 09/14/18 16:45 Ur Specific [place] 1.020 (1.010-1.035) 09/14/18 16:45 Urine Protein 1+ (NEGATIVE) H 09/14/18 16:45 Urine Glucose (UA) Negative (NEGATIVE) 09/14/18 16:45 Urine Ketones 1+ (NEGATIVE) H 09/14/18 16:45 Urine Blood Negative (NEGATIVE) 09/14/18 16:45 Urine Nitrite Positive (NEGATIVE) 09/14/18 16:45 Urine Bilirubin Negative (<2.0 mg/dL) 09/14/18 16:45 Ur Leukocyte Esterase Trace (NEGATIVE) 09/14/18 16:45 Ur Epithelial Cells Few /HPF (FEW) 09/14/18 16:45 Urine Bacteria Many /hpf (NONE SEEN) 09/14/18 16:45 Urine Mucus Moderate 09/14/18 16:45 assessment/plan: Patient is a 48yo female with no pmhx of CVA (2002), GERD/gastritis, cocaine/ marijuana abuse, HTN, depression presented to the ED with complaints of persistent nausea/vomiting since Saturday # CT reported appendicitis,surgical consult dr guillory appreciated. #Intractable nausea/vomiting; due to Cyclical Vomiting syndrome due to marijuana use vs. viral gastroenteritis, r/o colitis. #Hypertension; 146/102 --> 160/116-> 136/83. #UTI : s/p one dose Rocephin , will check the culture #Hx of Polysubstance abuse (alcohol/cocaine/marijuana) #DVT px: hold Lovenox 40 SQ QD GI Px: Pepcid 20 mg IVPB BID Visit type - Emergency Visit Emergency Visit: Yes ED Registration Date: 09/15/18 Care time: The patient presented to the Emergency Department on the above date and was hospitalized for further evaluation of their emergent condition. - New Patient This patient is new to me today: No - Critical Care Critical Care patient: No - Discharge Referral Referred to [facility] Med [facility] No
--- NOTE | 2018-09-15 10:32 | EKG ---
Test Reason : Blood Pressure : / mmHG Vent. Rate : 067 BPM Atrial Rate : 067 BPM P-R Int : 206 ms QRS Dur : 090 ms QT Int : 488 ms P-R-T Axes : 038 088 075 degrees QTc Int : 515 ms NORMAL SINUS RHYTHM PROLONGED QT ABNORMAL ECG WHEN COMPARED WITH ECG OF 01-MAY-2018 12:53, QT HAS LENGTHENED Confirmed by CHANTELLE CONROY MD ([id number]) on 09/15/2018 10:31:42 AM Referred By: Confirmed By:CHANTELLE CONROY MD
[2018-09-15] MEDS: KCL 10 MEQ IVPB 10 MEQ/100 ML INFUS.BAG IVPB SCH ×3 (11:10→15:22)
--- NOTE | 2018-09-15 15:40 | CONSULT ---
Consult Consult Specialty:: General Surgery Reason for Consultation:: appendicitis - History of Present Illness Chief Complaint: abdominal pain and vomiting History of Present Illness: 48 yo female PMH CVA (2002), GERD/gastritis, cocaine/marijuana abuse, HTN, depression presented to the ED with complaints of persistent nausea/vomiting since Saturday. Pt states she has had poor PO intake since the onset of these symptoms and is unable to keep anything down. She also reports subjective 15-20 lb weight loss over the past week based on the fit of her clothing, although she denies ever weighing herself. Pt states the last time she had these similar symptoms was about 10 years ago. She also states that she has non-bloody diarrhea everytime she tries to eat/drink anything. Pt complains of fever and chills as well as 7/10 generalized abdominal pain which is not alleviated by vomiting or bowel movements. She denies taking anything at home for her symptoms because she cannot tolerate PO meds. Additionally, she complains of chest pain that is worsened when she is vomiting and breathing deeply. We were asked to assess. 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 ...LMP: 11/26/15 ...: No Psych: Yes: Depression - Alcohol/Substance Use Hx Alcohol Use: No History of Substance Use: reports: Cocaine, Marijuana - Smoking History Smoking history: Current every day smoker Have you smoked in the past 12 months: Yes Aproximately how many cigarettes per day: 0 - Social History Place of : [facility] History of Recent Travel: No Home Medications - Allergies Allergies/Adverse Reactions: Allergies Allergy/AdvReac Type Severity Reaction Status Date / Time beeswax Allergy Severe Difficulty Verified 09/14/18 12:51 Breathing coconut oil Allergy Severe Itching Verified 09/14/18 12:51 - Home Medications Home Medications: Ambulatory Orders Amlodipine Besylate [Norvasc -] 5 mg PO DAILY #30 tablet 06/10/18 Quetiapine Fumarate [Seroquel] 100 mg PO HS #30 tablet 06/10/18 Family Disease History - Family Disease History Family Disease History: Diabetes: Mother (), Heart Disease: Mother, Other: Father (), Mother Review of Systems - Review of Systems Constitutional: reports: Chills, Fever, Loss of Appetite Eyes: denies: Blind Spots, Recent Change in Vision HENT: denies: Difficult Swallowing, Throat Pain Neck: denies: Pain on Movement, Tenderness Cardiovascular: denies: Chest Pain, Palpitations Respiratory: denies: Cough, SOB Genitourinary: reports: Dysuria, Flank Pain. denies: Burning, Incontinence Breasts: reports: No Symptoms Reported. denies: Pain Musculoskeletal: denies: Extremity Pain, Joint Swelling, Muscle Pain Integumentary: denies: Change in Color, Eczema, Rash Neurological: denies: Seizure, Syncope Endocrine: denies: Unexplained Weight Gain, Unexplained Weight Loss Hematology/Lymphatic: denies: Easily Bruised, Excessive Bleeding Psychiatric: denies: Anxiety, Depression Physical Exam Vital Signs: Vital Signs Temperature 98.7 F 09/15/18 15:06 Pulse Rate 67 09/15/18 15:06 Respiratory Rate 20 09/15/18 15:06 Blood Pressure 136/96 09/15/18 15:27 O2 Sat by Pulse Oximetry (%) 100 09/15/18 09:00 Constitutional: Yes: No Distress, Calm, Thin, 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 No: CVA Tenderness - Right, Jacobs Present , Hematuria Breast(s): No: Gynecomastia, Nipple Inversion Musculoskeletal: No: Muscle Pain, Muscle Weakness Extremities: No: Cool, Cyanosis Edema: No Peripheral Pulses WNL: Yes Integumentary: No: Erythema, Incision, Jaundice Neurological: Yes: Alert, Oriented Psychiatric: Yes: Alert, Oriented Labs: CBC, BMP 09/15/18 06:15 09/15/18 06:15 Microbiology 09/14/18 16:45 Urine Culture - Preliminary Urine - Urine Clean Catch Lactose Fermenting Neg Bacilli Imaging - Results Cat Scan: Report Reviewed, Image Reviewed Problem List - Problems (1) Abnormal CT scan, gastrointestinal tract Assessment/Plan: 48yo female MMP with vominting and left flank pain, +UA, No RLQ tendeness. Very low infec of suspicion for acute appendicitis. No acute surgical intervention is indicated. Resume diet antiemetic therapy advance as tolerated Resume Lovenox as needed Treat UTI Thank you for the opportunity to participate in the care of this patient. Code(s): R93.3 - ABNORMAL FINDINGS ON DX IMAGING OF PRT DIGESTIVE TRACT (2) Intractable vomiting with nausea Code(s): R11.2 - NAUSEA WITH VOMITING, UNSPECIFIED Qualifiers: Vomiting type: unspecified Qualified Code(s): R11.2 - Nausea with vomiting , unspecified (3) Tetrahydrocannabinol (THC) use disorder, moderate, dependence Code(s): F12.20 - CANNABIS DEPENDENCE, UNCOMPLICATED (4) Hypertension Code(s): I10 - ESSENTIAL (PRIMARY) HYPERTENSION Qualifiers: Hypertension type: essential hypertension Qualified Code(s): I10 - Essential (primary) hypertension (5) Substance-induced anxiety disorder Code(s): F19.980 - OTH PSYCHOACTIVE SUBSTANCE USE, UNSP W ANXIETY DISORDER (6) Anxiety and depression Code(s): F41.8 - OTHER SPECIFIED ANXIETY DISORDERS (7) Cannabis dependence Code(s): F12.20 - CANNABIS DEPENDENCE, UNCOMPLICATED (8) Cocaine dependence Code(s): F14.20 - COCAINE DEPENDENCE, UNCOMPLICATED Qualifiers: Substance use status: uncomplicated Qualified Code(s): F14.20 - Cocaine dependence, uncomplicated (9) Old cerebrovascular accident (CVA) without late effect Code(s): Z86.73 - PRSNL HX OF TIA (TIA), AND CEREB INFRC W/O RESID DEFICITS
[2018-09-15] MEDS: SODIUM CHLORIDE 0.45% 1,000 ML IV SCH ×2 (17:05→21:07)
[2018-09-15] MEDS ORDERED: ACETAMINOPHEN 325 MG TABLET (FP) PO ONE (18:02)
[2018-09-15] MEDS ORDERED: ACETAMINOPHEN 1000 MG/100 ML VIAL (NON FORMULARY) IVPB ONE (18:15)
[2018-09-15] MEDS: ENALAPRILAT DIHYDRATE 1.25 MG/1 ML VIAL IVPB SCH ×2 (19:44→21:05)
[2018-09-16] MEDS ORDERED: PT OWN MED DRAWER 7, Y5N ONE (02:46)
[2018-09-16] MEDS: ENALAPRILAT DIHYDRATE 1.25 MG/1 ML VIAL IVPB SCH ×2 (02:53→09:30)
[2018-09-16 04:14] LABS: HBSAG SCREEN Negative (Negative); HEP B CORE AB, TOT Negative (Negative); HEPATITIS B CORE ANTIBODY,IGM Negative (Negative); HEPATITIS C VIRUS EIA 0.2 s/co ratio (0.0-0.9)
[2018-09-16] MEDS ORDERED: ACETAMINOPHEN 1000 MG/100 ML VIAL (NON FORMULARY) IVPB ONE (05:35)
[2018-09-16] MEDS ORDERED: ACETAMINOPHEN 1000 MG/100 ML VIAL (NON FORMULARY) IVPB PRN (07:17)
--- NOTE | 2018-09-16 08:11 | PN ---
Physical Exam: SUBJECTIVE: Patient seen and examined at bedside- no acute events overnight; patient states her pain is slightly better and she has not had anymore episodes of vomiting or diarrhea- she denies any CP/SOB/N/V fevers or chills OBJECTIVE: Vital Signs Period Temp Pulse Resp BP Sys/Enriquez Pulse Ox Last 24 Hr 97.8 F-98.7 F 51-78 18-20 136-150/72-96 100-100 GENERAL: The patient is awake, alert, and fully oriented, in no acute distress. EYES: PEERLA; EOMI; no scleral icterus. . NECK:no JVD; no lymphadenopathy. LUNGS: CTA B/L; no rales, rhonchi or wheezing. HEART: Regular rate and rhythm, S1, S2 without murmur, rub or gallop. ABDOMEN: Soft, nontender, nondistended, normoactive bowel sounds, no guarding, no rebound, no hepatosplenomegaly, no masses. EXTREMITIES:warm; well-perfused; no clubbing/cyanosis or edema PSYCH: Normal mood, normal affect. SKIN: Warm, dry, normal turgor, no rashes or lesions noted Laboratory Results - last 24 hr 09/14/18 09/15/18 09/15/18 06:15 06:15 06:15 WBC 6.3 RBC 3.50 L Hgb 11.6 Hct 34.3 MCV 97.9 H MCH 33.0 MCHC 33.7 RDW 14.9 Plt Count 357 MPV 8.0 D Absolute Neuts (auto) 4.1 Neutrophils % 64.9 Lymphocytes % 19.5 D Monocytes % 13.2 H Eosinophils % 1.5 D Basophils % 0.9 Nucleated RBC % 0 Sodium 136 Potassium 3.1 L Chloride 102 Carbon Dioxide 23 Anion Gap 11 BUN 7 Creatinine 0.6 Creat Clearance w eGFR > 60 Random Glucose 78 Calcium 8.2 L Total Bilirubin 0.3 AST 46 H ALT 59 Alkaline Phosphatase 88 Total Protein 7.4 Albumin 2.7 L Alcohol, Quantitative Hepatitis A Ab Total Negative Hep Bs Antigen Negative Hep Bs Antibody Reactive Hep B Core Total Ab Negative Hep B Core IgM Ab Negative Hepatitis C Antibody 0.2 09/15/18 07:12 WBC RBC Hgb Hct MCV MCH MCHC RDW Plt Count MPV Absolute Neuts (auto) Neutrophils % Lymphocytes % Monocytes % Eosinophils % Basophils % Nucleated RBC % Sodium Potassium Chloride Carbon Dioxide Anion Gap BUN Creatinine Creat Clearance w eGFR Random Glucose Calcium Total Bilirubin AST ALT Alkaline Phosphatase Total Protein Albumin Alcohol, Quantitative < 3.0 Hepatitis A Ab Total Hep Bs Antigen Hep Bs Antibody Hep B Core Total Ab Hep B Core IgM Ab Hepatitis C Antibody Active Medications Generic Name Dose Route Start Last Admin Trade Name Freq PRN Reason Stop Dose Admin Acetaminophen 650 mg 09/16/18 07:17 Ofirmev Injection - IVPB Q6H PRN PAIN Enalaprilat 1.25 mg 09/15/18 19:00 09/16/18 02:53 Vasotec Injection - IVPB 1.25 mg Q6H-IV KRISTYN Administration Sodium Chloride 1,000 mls @ 100 mls/hr 09/14/18 21:00 09/15/18 21:07 1/2 Normal Saline IV Not Given ASDIR KRISTYN Famotidine/Sodium Chloride 20 mg in 50 mls @ 100 mls/hr 09/14/18 22:00 21:08 Pepcid 20 Mg Premixed Ivpb - IVPB 100 mls/hr BID KRISTYN Administration ASSESSMENT/PLAN: 48F w/ pmhx of CVA (2002), GERD/gastritis, cocaine/marijuana abuse, HTN, depression presented to the ED with complaints of persistent nausea/vomiting since Saturday #Intractable nausea/vomiting; likely 2/2 Cyclical Vomiting syndrome due to marijuana use vs. viral gastroenteritis, r/o colitis. -CT Ab/pelvis shows dilated appendix- surgery saw patient ; no surgery indicated at this time -clear diet- advance as tolerated -NS @ 100 for hydration -Pepcid 20 mg IVPB BID -Compazine PRN for nausea -Avoid QTc prolonging agents #Hypertension; . -Pt states she takes Amlodipine, but does not recall dose -started patient on IV enalapril 1.25 q6h -Will restart PO home meds once confirmed and pt can tolerate PO #Splenic INfarct splenic infarct seen on ab/pelvis CT -renal and abdomen U/S ordered -heme onc consulted #UTI -U/A showed 35 WBC, +Trace LE; cx growing lactose fermenting negative bacilli -started patient on ceftriaxone -awaiting sensitivies #Hx of Polysubstance abuse (alcohol/cocaine/marijuana) -CIWA ~7 -Pt states she last attempted to drink yesterday, but was unable to tolerate anything PO. Additionally, her last drink prior to yesterday's attempt was over 1 week ago, prior to the onset of her symptoms. Low suspicion for alcohol withdrawal, but will monitor for possible symptoms and consider Librium protocol. -Drug cessation counseling #Prophylaxis -Lovenox 40 SQ QD -Pepcid 20 mg IVPB BID #FEN -NS @ 100 -recheck lytes (Na) in AM -clears; advance diet as tolerated dispo -admit to med-surg obs Problem List - Problems (1) Abnormal CT scan, gastrointestinal tract Code(s): R93.3 - ABNORMAL FINDINGS ON DX IMAGING OF PRT DIGESTIVE TRACT (2) Intractable vomiting with nausea Code(s): R11.2 - NAUSEA WITH VOMITING, UNSPECIFIED Qualifiers: Vomiting type: unspecified Qualified Code(s): R11.2 - Nausea with vomiting , unspecified (3) Hypertension Code(s): I10 - ESSENTIAL (PRIMARY) HYPERTENSION Qualifiers: Hypertension type: essential hypertension Qualified Code(s): I10 - Essential (primary) hypertension Visit type - Emergency Visit Emergency Visit: Yes ED Registration Date: 09/15/18 Care time: The patient presented to the Emergency Department on the above date and was hospitalized for further evaluation of their emergent condition. - New Patient This patient is new to me today: Yes Date on this admission: 09/16/18 - Critical Care Critical Care patient: No
[2018-09-16] MEDS: FAMOTIDINE 20 MG/50 ML IVPB 20 MG/50 ML MG IVPB SCH ×2 (09:30→21:38)
[2018-09-16] MEDS ORDERED: CEFTRIAXONE 1 GM in DEXTROSE 5%-WATER - 50 ML IVPB ONE ×2 (13:00→14:30)
--- NOTE | 2018-09-16 13:59 | PN ---
Teaching Attending Note Name of Resident: Nalini Farrar ATTENDING PHYSICIAN STATEMENT I saw and evaluated the patient. I reviewed the resident's note and discussed the case with the resident. I agree with the resident's findings and plan as documented. SUBJECTIVE: Patient is comfortable with no acute distress. No fever or chills. OBJECTIVE: Vital Signs Temperature 98.7 F 09/16/18 06:00 Pulse Rate 58 L 09/16/18 06:00 Respiratory Rate 18 09/16/18 06:00 Blood Pressure 140/72 09/16/18 06:00 O2 Sat by Pulse Oximetry (%) 100 09/15/18 21:00 GENERAL: AAOx3. Cooperative and responds to questions. Shivering under blanket. HEENT: AT/NC. EOMI. JOSE. Dry mucus membranes. Poor dentition. NECK: Normal range of motion, supple without lymphadenopathy, JVD, or masses. LUNGS: CTA B/L. No wheezes or crackles noted. HEART: RRR. Normal S1, S2. No murmurs noted. ABDOMEN: Soft, diffuse tenderness to palpation. No masses ecchymoses noted. Hypoactive bowel sounds. MUSCULOSKELETAL: Normal range of motion at all joints. No bony deformities or tenderness. No CVA tenderness. EXTREMITIES: 2+ pulses, warm, well-perfused. No cyanosis. No clubbing. No peripheral edema. 5/5 muscle strength b/l NEUROLOGICAL: Normal speech. Facial muscles intact. No facial droop. CBCD WBC 6.3 K/mm3 (4.0-10.0) 09/15/18 06:15 RBC 3.50 M/mm3 (3.60-5.2) L 09/15/18 06:15 Hgb 11.6 GM/dL (10.7-15.3) 09/15/18 06:15 Hct 34.3 % (32.4-45.2) 09/15/18 06:15 MCV 97.9 fl (80-96) H 09/15/18 06:15 MCHC 33.7 g/dl (32.0-36.0) 09/15/18 06:15 RDW 14.9 % (11.6-15.6) 09/15/18 06:15 Plt Count 357 K/MM3 (134-434) 09/15/18 06:15 MPV 8.0 fl (7.5-11.1) D 09/15/18 06:15 CMP Sodium 136 mmol/L (136-145) 09/15/18 06:15 Potassium 3.1 mmol/L (3.5-5.1) L 09/15/18 06:15 Chloride 102 mmol/L (98-107) 09/15/18 06:15 Carbon Dioxide 23 mmol/L (21-32) 09/15/18 06:15 Anion Gap 11 MMOL/L (8-16) 09/15/18 06:15 BUN 7 mg/dL (7-18) 09/15/18 06:15 Creatinine 0.6 mg/dL (0.55-1.3) 09/15/18 06:15 Creat Clearance w eGFR > 60 (>60) 09/15/18 06:15 Random Glucose 78 mg/dL (74-106) 09/15/18 06:15 Calcium 8.2 mg/dL (8.5-10.1) L 09/15/18 06:15 Total Bilirubin 0.3 mg/dL (0.2-1) 09/15/18 06:15 AST 46 U/L (15-37) H 09/15/18 06:15 ALT 59 U/L (13-61) 09/15/18 06:15 Alkaline Phosphatase 88 U/L (45-117) 09/15/18 06:15 Total Protein 7.4 g/dl (6.4-8.2) 09/15/18 06:15 Albumin 2.7 g/dl (3.4-5.0) L 09/15/18 06:15 Current Medications Generic Name Dose Route Start Last Admin Trade Name Freq PRN Reason Stop Dose Admin Acetaminophen 650 mg 09/16/18 07:17 Ofirmev Injection - IVPB Q6H PRN PAIN Enalaprilat 1.25 mg 09/15/18 19:00 09/16/18 09:30 Vasotec Injection - IVPB 1.25 mg Q6H-IV KRISTYN Administration Sodium Chloride 1,000 mls @ 100 mls/hr 09/14/18 21:00 09/15/18 21:07 1/2 Normal Saline IV Not Given ASDIR KRISTYN Famotidine/Sodium Chloride 20 mg in 50 mls @ 100 mls/hr 09/14/18 22:00 09:30 Pepcid 20 Mg Premixed Ivpb - IVPB 100 mls/hr BID KRISTYN Administration Home Medications Medication Instructions Recorded Amlodipine Besylate [Norvasc -] 5 mg PO DAILY #30 tablet 06/10/18 Quetiapine Fumarate [Seroquel] 100 mg PO HS #30 tablet 06/10/18 CT/ABDOMEN PELVIS CT WITH CONTR Clinical history: Fever. Rule out abdominal infection in 48-year-old female. Comparison: CT 05/09/10. Contiguous transaxial images were obtained from the diaphragmatic domes and pubic symphysis without the administration of oral and after IV contrast. Sagittal and coronal reconstructions were performed. Lung bases: Negative. Bone: Negative. Liver: There is a fatty liver. Gallbladder: Small gallstone. Biliary tree: Negative. Spleen: Hypodense anterior third of the spleen which could represent an infarct. Pancreas: Negative. Adrenals: Negative. Kidneys: Right kidney shows focally hypodense area with posterior lateral bulge. This could represent a focus of infection but a mass cannot be excluded. Additional evaluation is suggested. The left kidney and demonstrate a complex hypodense lesion also posterior laterally in this can as well be evaluated with sonography. Pelvis: Negative. Bowel: 9 mm appendix with enhancement. Rule out acute appendicitis. Other: Hiatal hernia. Umbilical hernia with fat and nondistended transverse colon. Impression: Dilated appendix. Rule out appendicitis. Suggest surgical consult. Complex lesions in both kidneys which ultrasound is suggested. Anterior splenic infarct. Fatty liver. Small gallstone. Other findings as above. The study was initially read by Isabel. Reported By: Landry Varela MD 09/15/18 1036 Microbiology 09/14/18 16:45 Urine - Urine Clean Catch Urine Culture - Preliminary Lactose Fermenting Neg Bacilli ASSESSMENT AND PLAN: Patient is a 48yo female with no pmhx of CVA (2002), GERD/gastritis, cocaine/ marijuana abuse, HTN, depression presented to the ED with complaints of persistent nausea/vomiting since Saturday. #Intractable nausea/vomiting; due to Cyclical Vomiting syndrome due to marijuana : Ct of abdomen as above. #Hypertension Uncontrolled ; 146/102 --> 160/116-> 136/83 on Norvasc now. #UTI : Lactose Fermenting Neg Bacilli s/p one dose Rocephin , will check the culture , will place her back on Rocephin 1gm daily x 2 more days # complex hypodense lesion of both kidneys: will get US and Nephro consult # Splenic Infarct: will get hem/onc to evaluate the patient, discussed with will see the patient. need thrombophilic w/u as on outpatient. # Hypokalemia replete #Hx of Polysubstance abuse (alcohol/cocaine/marijuana) #DVT px: early ambulatin , Lovenox on hold.
[2018-09-16] MEDS: amLODIPine BESYLATE 5 MG TABLET (FP) PO SCH (15:31)
[2018-09-16] MEDS: KCL 10 MEQ IVPB 10 MEQ/100 ML INFUS.BAG IVPB SCH ×3 (15:32→16:43)
--- NOTE | 2018-09-16 16:32 | CONSULT ---
Consultation: REQUESTING PROVIDER: Dr. Cordova CONSULT REQUEST: We have been asked to medically evaluate this patient for slpenic infarct on CT. HISTORY OF PRESENT ILLNESS: This is a 48 year old female with a history of polysubstance abuse, gastritis, "hole in heart", "anemia when born", and was also told she has had an irregular heart rhythm here at [facility], (I currently cannot find documentation on this in our EMR), who presents with a two week history of NBNB vomiting, 20lb weight loss and now with LUQ pain that radiates to back, we were called to evaluate in incidental finding of splenic infarct on CT imaging. Complex lesions of both kidneys were also found on CT. She is being evaluated by surgery and nephrology. States she had colonoscopy ten years ago that was negative; never had endoscopy; does not follow up with a primary care physician. 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; sister has history of blood clots REVIEW OF SYSTEMS: CONSTITUTIONAL: Positive: generalized weakness, malaise, loss of appetite, weight change Absent: fever, chills, diaphoresis, HEENT: Absent: rhinorrhea, nasal congestion, throat pain, throat swelling, difficulty swallowing, mouth swelling, ear pain, eye pain, visual changes CARDIOVASCULAR: Absent: chest pain, syncope, palpitations, irregular heart rate, lightheadedness , peripheral edema RESPIRATORY: Absent: cough, shortness of breath, dyspnea with exertion, orthopnea, wheezing, stridor, hemoptysis GASTROINTESTINAL: Positive: Absent: abdominal pain, abdominal distension, nausea, vomiting, diarrhea, constipation, melena, hematochezia GENITOURINARY: Absent: dysuria, frequency, urgency, hesitancy, hematuria, flank pain, genital pain MUSCULOSKELETAL: Absent: myalgia, arthralgia, joint swelling, back pain, neck pain SKIN: Absent: rash, itching, pallor HEMATOLOGIC/IMMUNOLOGIC: Absent: easy bleeding, easy bruising, lymphadenopathy, frequent infections ENDOCRINE: Absent: unexplained weight gain, unexplained weight loss, heat intolerance, cold intolerance NEUROLOGIC: Absent: headache, focal weakness or paresthesias, dizziness, unsteady gait, seizure, mental status changes, bladder or bowel incontinence PSYCHIATRIC: Absent: anxiety, depression, suicidal or homicidal ideation, hallucinations. PHYSICAL EXAMINATION Vital Signs - 24 hr 09/15/18 09/15/18 09/15/18 17:42 21:00 22:00 Temperature 98.2 F 98.5 F Pulse Rate 63 78 Respiratory 18 18 18 Rate Blood Pressure 150/89 149/94 O2 Sat by Pulse 100 Oximetry (%) 09/16/18 09/16/18 09/16/18 01:18 06:00 09:00 Temperature 97.8 F 98.7 F Pulse Rate 51 L 58 L Respiratory 18 18 Rate Blood Pressure 147/92 140/72 O2 Sat by Pulse 100 Oximetry (%) 09/16/18 09/16/18 10:00 14:42 Temperature 97.9 F 98.6 F Pulse Rate 71 76 Respiratory 18 18 Rate Blood Pressure 131/101 H 111/73 O2 Sat by Pulse Oximetry (%) GENERAL: Awake, alert, and fully oriented, in no acute distress. HEAD: Normal with no signs of trauma. EYES: Pupils equal, round and reactive to light, extraocular movements intact, sclera anicteric, conjunctiva clear. No lid lag. THROAT: foul smelling breath; dry mucus membranes; NECK: Normal range of motion, supple without lymphadenopathy, JVD, or masses. LUNGS: scattered rhonchi Breast/axilla; no lumps/masses; or nipple discharge HEART: Regular rate and rhythm, normal S1 and S2 without murmur, rub or gallop. ABDOMEN: soft; slightly distended; pain with palpation of spleen MUSCULOSKELETAL: Normal range of motion at all joints. No bony deformities or tenderness. No CVA tenderness. UPPER EXTREMITIES: 2+ pulses, warm, well-perfused. No cyanosis. No clubbing. Cap refill <2 seconds. No peripheral edema. LOWER EXTREMITIES: 2+ pulses, warm, well-perfused. No calf tenderness. No peripheral edema. NEUROLOGICAL: Cranial nerves II-XII intact. Normal speech. PSYCHIATRIC: not good eye contact; agitated SKIN: Warm, dry, normal turgor, no rashes or lesions noted. Laboratory Results - last 24 hr 09/14/18 06:15 Hepatitis A Ab Total Negative Hep Bs Antigen Negative Hep Bs Antibody Reactive Hep B Core Total Ab Negative Hep B Core IgM Ab Negative Hepatitis C Antibody 0.2 Active Medications Generic Name Dose Route Start Last Admin Trade Name Freq PRN Reason Stop Dose Admin Acetaminophen 650 mg 09/16/18 07:17 09/16/18 15:09 Ofirmev Injection - IVPB 650 mg Q6H PRN Administration PAIN Amlodipine Besylate 5 mg 09/16/18 14:15 09/16/18 15:31 Norvasc - PO Not Given DAILY KRISTYN Sodium Chloride 1,000 mls @ 100 mls/hr 09/14/18 21:00 09/15/18 21:07 1/2 Normal Saline IV Not Given ASDIR KRISTYN Famotidine/Sodium Chloride 20 mg in 50 mls @ 100 mls/hr 09/14/18 22:00 09:30 Pepcid 20 Mg Premixed Ivpb - IVPB 100 mls/hr BID KRISTYN Administration CT/ABDOMEN PELVIS CT WITH CONTR Clinical history: Fever. Rule out abdominal infection in 48-year-old female. Comparison: CT 05/09/10. Contiguous transaxial images were obtained from the diaphragmatic domes and pubic symphysis without the administration of oral and after IV contrast. Sagittal and coronal reconstructions were performed. Lung bases: Negative. Bone: Negative. Liver: There is a fatty liver. Gallbladder: Small gallstone. Biliary tree: Negative. Spleen: Hypodense anterior third of the spleen which could represent an infarct. Pancreas: Negative. Adrenals: Negative. Kidneys: Right kidney shows focally hypodense area with posterior lateral bulge. This could represent a focus of infection but a mass cannot be excluded. Additional evaluation is suggested. The left kidney and demonstrate a complex hypodense lesion also posterior laterally in this can as well be evaluated with sonography. Pelvis: Negative. Bowel: 9 mm appendix with enhancement. Rule out acute appendicitis. Other: Hiatal hernia. Umbilical hernia with fat and nondistended transverse colon. Impression: Dilated appendix. Rule out appendicitis. Suggest surgical consult. Complex lesions in both kidneys which ultrasound is suggested. Anterior splenic infarct. Fatty liver. Small gallstone. Other findings as above. The study was initially read by Isabel. Reported By: Landry Varela MD 09/15/18 [id number] ASSESSMENT/PLAN: This is a 48 year old female with polysubstance abuse; presenting with gastritis , n,v, abdominal pain and 20wt loss for the past two weeks. Currently being treated for UTI. Found to have lesion on kidneys and splenic infarct on CT. Work up for thrombophilia. Splenic infarct lesions on kidneys b/l UTI N/V -work up for thrombophilia -hemoglobin electrophoreisis, nakia, esr, crp, RF, protein c/s antigen and activity, antithrombin III activity/antigen, factor V leiden mutation, prothrombin gene [id number] mutation, lupus anticoagulant, anticardiolipin ab IgA/ IgM, antib2 glycoprotein I ab IgG/IgM, Jak2 mutation -echocardiogram eval for PFO and would consult cardiology Dispo: We will continue to follow the patient. Thank you for this consultative opportunity. Visit type - Emergency Visit Emergency Visit: Yes ED Registration Date: 09/15/18 Care time: The patient presented to the Emergency Department on the above date and was hospitalized for further evaluation of their emergent condition. - New Patient This patient is new to me today: Yes Date on this admission: 09/16/18 - Critical Care Critical Care patient: No
[2018-09-16] MEDS ORDERED: cefTRIAXone SODIUM 1 GM VIAL ONE (16:45)
[2018-09-16] MEDS ORDERED: DEXTROSE 5%-WATER - 50 ML IVPB ONE (16:46)
--- NOTE | 2018-09-16 17:03 | CONSULT ---
Consult Consult Specialty:: Nephrology Reason for Consultation:: hypokalemia - History of Present Illness Chief Complaint: vomiting and abdominal pain History of Present Illness: Pt is a 48 year old female with pmhx of cva, fatty liver, and gerd who presents to the ER with nausea and vomiting. She was found to be hypokalemic and I was called to evaluate her. She was also found to have a right renal lesion of ct scan. Pt denies dysuria or hematuria. She says that she smokes marijuana regularly and that it usually helps her nausea and vomiting. She denies hematuria. She denies fevers or chills. 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 Cardio/Vascular: Yes: HTN Gastrointestinal: Yes: GERD ...LMP: 11/26/15 ...: No Psych: Yes: Depression - Alcohol/Substance Use Hx Alcohol Use: No History of Substance Use: reports: Cocaine, Marijuana - Smoking History Smoking history: Current every day smoker Have you smoked in the past 12 months: Yes Aproximately how many cigarettes per day: 0 - Social History History of Recent Travel: No Home Medications - Allergies Allergies/Adverse Reactions: Allergies Allergy/AdvReac Type Severity Reaction Status Date / Time beeswax Allergy Severe Difficulty Verified 09/14/18 12:51 Breathing coconut oil Allergy Severe Itching Verified 09/14/18 12:51 - Home Medications Home Medications: Ambulatory Orders Amlodipine Besylate [Norvasc -] 5 mg PO DAILY #30 tablet 06/10/18 Quetiapine Fumarate [Seroquel] 100 mg PO HS #30 tablet 06/10/18 Family Disease History - Family Disease History Family Disease History: Diabetes: Mother (), Heart Disease: Mother, Other: Father (), Mother Review of Systems - Review of Systems Constitutional: reports: Malaise. denies: Chills, Fever Eyes: reports: No Symptoms HENT: reports: No Symptoms Neck: reports: No Symptoms Cardiovascular: reports: No Symptoms Respiratory: reports: No Symptoms Gastrointestinal: reports: Abdominal Pain, Vomiting Genitourinary: reports: No Symptoms Musculoskeletal: reports: No Symptoms Integumentary: reports: No Symptoms Neurological: reports: No Symptoms Endocrine: reports: No Symptoms Hematology/Lymphatic: reports: No Symptoms Psychiatric: reports: No Symptoms Physical Exam Vital Signs: Vital Signs Temperature 98.6 F 09/16/18 14:42 Pulse Rate 76 09/16/18 14:42 Respiratory Rate 18 09/16/18 14:42 Blood Pressure 111/73 09/16/18 14:42 O2 Sat by Pulse Oximetry (%) 100 09/16/18 09:00 Constitutional: Yes: Calm Eyes: Yes: Conjunctiva Clear HENT: Yes: Atraumatic Cardiovascular: Yes: S1, S2 Respiratory: Yes: CTA Bilaterally Gastrointestinal: Yes: Soft Renal/: Yes: WNL Musculoskeletal: Yes: WNL Edema: No Neurological: Yes: Oriented Psychiatric: Yes: Oriented Labs: CBC, BMP 09/15/18 06:15 09/15/18 06:15 Laboratory Tests 09/14/18 09/14/18 09/14/18 14:05 14:50 16:45 WBC Sodium Potassium 4.0 Lactic Acid 2.4 H* Calcium Magnesium 2.0 AST 119 H ALT 95 H Cocaine Screen Negative U Marijuana (THC) Screen Positive A* 09/14/18 09/15/18 09/15/18 18:08 06:15 06:15 WBC 6.3 Sodium 136 Potassium 3.1 L Lactic Acid 1.1 Calcium 8.2 L Magnesium AST 46 H ALT 59 Cocaine Screen U Marijuana (THC) Screen Imaging - Results Cat Scan: Report Reviewed Problem List - Problems (1) Renal mass Code(s): N28.89 - OTHER SPECIFIED DISORDERS OF KIDNEY AND URETER (2) Hypokalemia Code(s): E87.6 - HYPOKALEMIA (3) Hypertension Code(s): I10 - ESSENTIAL (PRIMARY) HYPERTENSION Qualifiers: Hypertension type: essential hypertension Qualified Code(s): I10 - Essential (primary) hypertension Assessment/Plan Current Medications Generic Name Dose Route Start Last Admin Trade Name Freq PRN Reason Stop Dose Admin Acetaminophen 650 mg 09/16/18 07:17 09/16/18 15:09 Ofirmev Injection - IVPB 650 mg Q6H PRN Administration PAIN Amlodipine Besylate 5 mg 09/16/18 14:15 09/16/18 15:31 Norvasc - PO Not Given DAILY KRISTYN Sodium Chloride 1,000 mls @ 100 mls/hr 09/14/18 21:00 09/15/18 21:07 1/2 Normal Saline IV Not Given ASDIR KRISTYN Famotidine/Sodium Chloride 20 mg in 50 mls @ 100 mls/hr 09/14/18 22:00 09:30 Pepcid 20 Mg Premixed Ivpb - IVPB 100 mls/hr BID KRISTYN Administration Impression 1. renal mass 2. htn 3. hypokalemia 4. vomiting 5. substance abuse 6. gerd Plan - replace potassium - check renal ultrasound to evaluate mass, urology eval - check mag level - can add potassium to maintenance fluids Dr Mayorga
[2018-09-16] MEDS ORDERED: POTASSIUM CHLORIDE TABS 20 MEQ TABLET.ER (FP) PO ONE (17:08)
[2018-09-16] MEDS: POTASSIUM CHLORIDE 10 MEQ in SODIUM CHLORIDE 0.45% 1,000 ML IVPB SCH (19:12)
--- NOTE | 2018-09-16 19:13 | PN ---
Teaching Attending Note Name of Resident: Rabia Borden ATTENDING PHYSICIAN STATEMENT I saw and evaluated the patient. I reviewed the resident's note and discussed the case with the resident. I agree with the resident's findings and plan as documented. SUBJECTIVE: Patient seen and examined Presented with nausea, emesis, ,weight loss and now with LUQ pain and diarrhea with no bowel movement x days. History of daily marijuana and beer when money available . No industrial exposures. Past history of cocaine . Denies IV drugs . Abnormal CT with splenic infarct , fatty liver comples renal cysts. Last Vital Signs Temp Pulse Resp BP Pulse Ox 99.0 F 61 18 132/72 100 09/16/18 17:05 09/16/18 17:05 09/16/18 17:05 09/16/18 17:05 09/16/18 09:00 HEENT: TAMANNA, EOM Intact Oropharynx: No thrush, No mucositis Neck: Supple Nodes: Without adenopathy Breasts: Without masses Cor: RSR, No murmurs, No gallops Lungs: Clear to P&A Abd: Soft, Normal bowel sounds, No organomegaly Ext:No significant edema Skin: No rashes, Integument intact CBC, BMP 09/15/18 06:15 09/15/18 06:15 Current Medications Generic Name Dose Route Start Last Admin Trade Name Freq PRN Reason Stop Dose Admin Acetaminophen 650 mg 09/16/18 07:17 09/16/18 15:09 Ofirmev Injection - IVPB 650 mg Q6H PRN Administration PAIN Amlodipine Besylate 5 mg 09/16/18 14:15 09/16/18 15:31 Norvasc - PO Not Given DAILY KRISTYN Famotidine/Sodium Chloride 20 mg in 50 mls @ 100 mls/hr 09/14/18 22:00 09:30 Pepcid 20 Mg Premixed Ivpb - IVPB 100 mls/hr BID KRISTYN Administration Potassium Chloride 10 meq/ 1,005 mls @ 100 mls/hr 09/16/18 17:09 Sodium Chloride IVPB Q10H KRISTYN Impression: Nausea, emesis ,LUQ pains , fatty liver , splenic infarct , cow with diarrhea and constipation No WBC and fevers. Agree with workup to assess etiology of splenic infarct with HbE, cardiac assessment , thrombophilia work up and if necessary screeing for malignancy Since nausea, emeis, anorexia , weight loss and LUQ pains can all be associated with splenic infarction would suggest work up as outlined in Dr. Borden's Would also suggest surgical and GI consult. Will do blood cultures and suggest antibiotic therapy.( ID ) Patient does complain of food not going down and getting stuck and would consider assessment by GI. OBJECTIVE: ASSESSMENT AND PLAN:
[2018-09-16] MEDS ORDERED: PROCHLORPERAZINE MALEATE 5 MG TABLET PO ONE (20:34)
[2018-09-16] MEDS: ACETAMINOPHEN 325 MG TABLET (FP) PO PRN (21:34)
[2018-09-17] MEDS: POTASSIUM CHLORIDE 10 MEQ in SODIUM CHLORIDE 0.45% 1,000 ML IVPB SCH ×4 (03:32→23:15)
[2018-09-17 08:11] LABS: ANION GAP 9 MMOL/L (8-16); BLOOD UREA NITROGEN 4 mg/dL (7-18); CALCIUM 8.4 mg/dL (8.5-10.1); CHLORIDE 104 mmol/L (98-107); CO2 23 mmol/L (21-32); CREATININE 0.6 mg/dL (0.55-1.3); GLUCOSE,RANDOM 77 mg/dL (74-106); MAGNESIUM 2.1 mg/dL (1.8-2.4); PHOSPHOROUS 3.5 mg/dL (2.5-4.9); POTASSIUM 3.7 mmol/L (3.5-5.1); SODIUM 136 mmol/L (136-145)
[2018-09-17 08:39] LABS: HEMATOCRIT 36.9 % (32.4-45.2); HEMOGLOBIN 12.6 GM/dL (10.7-15.3); MCH 33.7 pg (25.7-33.7); MCHC 34.1 g/dl (32.0-36.0); MEAN CELL VOLUME 98.7 fl (80-96); MEAN PLT VOLUME 8.6 fl (7.5-11.1); PLATELET COUNT 392 K/MM3 (134-434); RBC 3.74 M/mm3 (3.60-5.2); RDW 14.8 % (11.6-15.6); WHITE BLOOD COUNT 5.1 K/mm3 (4.0-10.0)
--- NOTE | 2018-09-17 09:08 | PN ---
Physical Exam: SUBJECTIVE: Patient seen and examined at bedside- patient is still having some nausea; she was unable to tolerate solid foods yesterday. however she denies any vomiting/fevers or chills. dr tian started patient on heparin drip this AM OBJECTIVE: Vital Signs Period Temp Pulse Resp BP Sys/Enriquez Pulse Ox Last 24 Hr 97.9 F-99.0 F 60-76 18-18 111-139/72-101 100 GENERAL: The patient is awake, alert, and fully oriented, in no acute distress.. EYES:EOMI; PEERLA; no scleral icterus NECK: no JVD;no lymphadenopathy LUNGS: CTA B/L; no rales, rhonchi or wheezing HEART: Regular rate and rhythm, S1, S2 without murmur, rub or gallop. ABDOMEN: Soft, slight LUQ tenderness upon palaption; +BS in all 4 quadrants EXTREMITIES: warm; well-perfused; no clubbing/cyanosis or edema. NEUROLOGICAL: Cranial nerves II through XII grossly intact. Normal speech, gait not observed. PSYCH: Normal mood, normal affect. SKIN: Warm, dry, normal turgor, no rashes or lesions noted Laboratory Results - last 24 hr 09/14/18 09/17/18 09/17/18 06:15 06:10 08:00 WBC 5.1 RBC 3.74 Hgb 12.6 Hct 36.9 MCV 98.7 H MCH 33.7 MCHC 34.1 RDW 14.8 Plt Count 392 MPV 8.6 Sodium 136 Potassium 3.7 Chloride 104 Carbon Dioxide 23 Anion Gap 9 BUN 4 L Creatinine 0.6 Creat Clearance w eGFR > 60 Random Glucose 77 Calcium 8.4 L Phosphorus 3.5 Magnesium 2.1 Hepatitis Be Antibody Negative Hepatitis Be Antigen Negative HCV Quantitation Hcv not detected HCV RNA log copies/mL TNP Active Medications Generic Name Dose Route Start Last Admin Trade Name Freq PRN Reason Stop Dose Admin Acetaminophen 650 mg 09/16/18 20:33 09/16/18 21:34 Tylenol - PO 650 mg Q6H PRN Administration Fever Or Pain Amlodipine Besylate 5 mg 09/16/18 14:15 09/16/18 15:31 Norvasc - PO Not Given DAILY KRISTYN Famotidine/Sodium Chloride 20 mg in 50 mls @ 100 mls/hr 09/14/18 22:00 21:38 Pepcid 20 Mg Premixed Ivpb - IVPB 100 mls/hr BID KRISTYN Administration Potassium Chloride 10 meq/ 1,005 mls @ 100 mls/hr 09/16/18 17:09 09/17/18 03: 32 Sodium Chloride IVPB 100 mls/hr Q10H KRISTYN Administration Ceftriaxone Sodium 2 gm/ 100 mls @ 200 mls/hr 09/17/18 10:00 Dextrose IVPB DAILY KRISTYN Protocol Metronidazole 500 mg in 100 mls @ 100 mls/hr 09/16/18 20:15 09/17/18 02:20 Flagyl 500mg Premixed Ivpb - IVPB 100 mls/hr Q8H-IV KRISTYN Administration ASSESSMENT/PLAN: 48F w/ pmhx of CVA (2002), GERD/gastritis, cocaine/marijuana abuse, HTN, depression presented to the ED with complaints of persistent nausea/vomiting since Saturday #Intractable nausea/vomiting; likely 2/2 Cyclical Vomiting syndrome due to marijuana use vs. viral gastroenteritis, r/o colitis. -CT Ab/pelvis shows dilated appendix- surgery saw patient ; no surgery indicated at this time -clear diet- advance as tolerated -NS @ 100 for hydration -Pepcid 20 mg IVPB BID -Compazine PRN for nausea -Avoid QTc prolonging agents -GI is consulted #Hypertension; . -patient is on amlodipine 5mg daily #Splenic INfarct splenic infarct seen on ab/pelvis CT; etiolgo -renal and abdomen U/S ordered; -doppler study shows no evidence of splenic vein thrombosis -f/u monosopt test -heme onc consulted -thrombophilia workup in progress -blood cx pending -echo ordered to assess for any clots -cardio consulted #UTI -U/A showed 35 WBC, +Trace LE; cx growing lactose fermenting negative bacilli -started patient on ceftriaxone -growing e coli #Hx of Polysubstance abuse (alcohol/cocaine/marijuana) -CIWA ~7 -Pt states she last attempted to drink yesterday, but was unable to tolerate anything PO. Additionally, her last drink prior to yesterday's attempt was over 1 week ago, prior to the onset of her symptoms. Low suspicion for alcohol withdrawal, but will monitor for possible symptoms and consider Librium protocol. -Drug cessation counseling #Prophylaxis heparin drip -Pepcid 20 mg IVPB BID #FEN -NS @ 100 -recheck lyyuli (K) in AM -clears; advance diet as tolerated Problem List - Problems (1) Abnormal CT scan, gastrointestinal tract Code(s): R93.3 - ABNORMAL FINDINGS ON DX IMAGING OF PRT DIGESTIVE TRACT (2) Intractable vomiting with nausea Code(s): R11.2 - NAUSEA WITH VOMITING, UNSPECIFIED Qualifiers: Vomiting type: unspecified Qualified Code(s): R11.2 - Nausea with vomiting , unspecified (3) Hypertension Code(s): I10 - ESSENTIAL (PRIMARY) HYPERTENSION Qualifiers: Hypertension type: essential hypertension Qualified Code(s): I10 - Essential (primary) hypertension Visit type - Emergency Visit Emergency Visit: Yes ED Registration Date: 09/15/18 Care time: The patient presented to the Emergency Department on the above date and was hospitalized for further evaluation of their emergent condition. - New Patient This patient is new to me today: No - Critical Care Critical Care patient: No
[2018-09-17 09:10] LABS: ALBUMIN 2.7 g/dl (3.4-5.0); ALK PHOS 91 U/L (45-117); ANION GAP 7 MMOL/L (8-16); BILIRUBIN,TOTAL 0.2 mg/dL (0.2-1); BLOOD UREA NITROGEN 4 mg/dL (7-18); CALCIUM 8.6 mg/dL (8.5-10.1); CHLORIDE 105 mmol/L (98-107); CO2 25 mmol/L (21-32); CREATININE 0.6 mg/dL (0.55-1.3); GLUCOSE,RANDOM 76 mg/dL (74-106); POTASSIUM 3.9 mmol/L (3.5-5.1); SGOT/AST 25 U/L (15-37); SGPT/ALT 38 U/L (13-61); SODIUM 137 mmol/L (136-145); TOT PROT 7.4 g/dl (6.4-8.2)
[2018-09-17] MEDS ORDERED: HEPARIN NA (PORCINE) 5,000 UNITS/ML 1ML VIAL IVPUSH PRN ×2 (10:18)
[2018-09-17 10:33] LABS: INR 1.13 (0.83-1.09); PROTHROMBIN TIME (PATIENT) 13.4 SEC (9.7-13.0)
[2018-09-17 10:36] LABS: ACTIVATED PTT 37.7 SECONDS (25.2-36.5)
[2018-09-17] MEDS ORDERED: DEXTROSE 5%-WATER 100 ML IVPB ONE (11:31)
[2018-09-17] MEDS: CEFTRIAXONE 2 GM in DEXTROSE 5%-WATER 100 ML IVPB SCH (11:44)
[2018-09-17] MEDS: FAMOTIDINE 20 MG/50 ML IVPB 20 MG/50 ML MG IVPB SCH ×2 (11:44→22:02)
[2018-09-17] MEDS: amLODIPine BESYLATE 5 MG TABLET (FP) PO SCH (11:45)
--- NOTE | 2018-09-17 13:03 | PN ---
Progress Note, Physician History of Present Illness: Pt seen and examined at bedside. She is awake and alert. She did not tolerate solid food. - Current Medication List Current Medications: Active Medications Acetaminophen (Tylenol -) 650 mg PO Q6H PRN PRN Reason: Fever Or Pain Last Admin: 09/16/18 21:34 Dose: 650 mg Amlodipine Besylate (Norvasc -) 5 mg PO DAILY KRISTYN Last Admin: 09/17/18 11:45 Dose: 5 mg Heparin Sodium (Porcine) (Heparin -) 1,000 unit IVPUSH PRN PRN PRN Reason: Heparin Heparin Sodium (Porcine) (Heparin -) 5,000 unit IVPUSH PRN PRN PRN Reason: Heparin Famotidine/Sodium Chloride (Pepcid 20 Mg Premixed Ivpb -) 20 mg in 50 mls @ 100 mls/hr IVPB BID KRISTYN Last Admin: 09/17/18 11:44 Dose: 100 mls/hr Potassium Chloride 10 meq/ (Sodium Chloride) 1,005 mls @ 100 mls/hr IVPB Q10H KRISTYN Last Admin: 09/17/18 12:48 Dose: Not Given Ceftriaxone Sodium 2 gm/ (Dextrose) 100 mls @ 200 mls/hr IVPB DAILY [facility]; Protocol Last Admin: 09/17/18 11:44 Dose: 200 mls/hr Metronidazole (Flagyl 500mg Premixed Ivpb -) 500 mg in 100 mls @ 100 mls/hr IVPB Q8H-IV KRISTYN Last Admin: 09/17/18 11:44 Dose: 100 mls/hr Heparin Sodium/Dextrose (Heparin Infusion -) 25,000 units in 500 mls @ 16 mls/ hr IVPB TITR KRISTYN; Protocol - Objective Vital Signs: Vital Signs Temperature 98.4 F 09/17/18 10:00 Pulse Rate 72 09/17/18 10:00 Respiratory Rate 18 09/17/18 10:00 Blood Pressure 133/96 09/17/18 10:00 O2 Sat by Pulse Oximetry (%) 100 09/16/18 21:00 Constitutional: Yes: Calm Eyes: Yes: Conjunctiva Clear HENT: Yes: Atraumatic Neck: Yes: Supple Cardiovascular: Yes: S1, S2 Respiratory: Yes: CTA Bilaterally Gastrointestinal: Yes: Soft Genitourinary: Yes: WNL Musculoskeletal: Yes: WNL Edema: No Neurological: Yes: Oriented Psychiatric: Yes: Oriented Labs: CBC, BMP 09/17/18 08:00 09/17/18 08:00 INR, PTT INR 1.13 (0.83-1.09) H 09/17/18 10:10 - ....Imaging Ultrasound: Report Reviewed Problem List - Problems (1) Renal mass Code(s): N28.89 - OTHER SPECIFIED DISORDERS OF KIDNEY AND URETER (2) Hypokalemia Code(s): E87.6 - HYPOKALEMIA (3) Hypertension Code(s): I10 - ESSENTIAL (PRIMARY) HYPERTENSION Qualifiers: Hypertension type: essential hypertension Qualified Code(s): I10 - Essential (primary) hypertension Assessment/Plan Current Medications Generic Name Dose Route Start Last Admin Trade Name Freq PRN Reason Stop Dose Admin Acetaminophen 650 mg 09/16/18 20:33 09/16/18 21:34 Tylenol - PO 650 mg Q6H PRN Administration Fever Or Pain Amlodipine Besylate 5 mg 09/16/18 14:15 09/17/18 11:45 Norvasc - PO 5 mg DAILY KRISTYN Administration Heparin Sodium (Porcine) 1,000 unit 09/17/18 10:18 Heparin - IVPUSH PRN PRN Heparin Heparin Sodium (Porcine) 5,000 unit 09/17/18 10:18 Heparin - IVPUSH PRN PRN Heparin Famotidine/Sodium Chloride 20 mg in 50 mls @ 100 mls/hr 09/14/18 22:00 11:44 Pepcid 20 Mg Premixed Ivpb - IVPB 100 mls/hr BID KRISTYN Administration Potassium Chloride 10 meq/ 1,005 mls @ 100 mls/hr 09/16/18 17:09 09/17/18 12: 48 Sodium Chloride IVPB Not Given Q10H KRISTYN Ceftriaxone Sodium 2 gm/ 100 mls @ 200 mls/hr 09/17/18 10:00 09/17/18 11:44 Dextrose IVPB 200 mls/hr DAILY KRISTYN Administration Protocol Metronidazole 500 mg in 100 mls @ 100 mls/hr 09/16/18 20:15 09/17/18 11:44 Flagyl 500mg Premixed Ivpb - IVPB 100 mls/hr Q8H-IV KRISTYN Administration Heparin Sodium/Dextrose 25,000 units in 500 mls @ 16 mls/hr 09/17/18 10:30 Heparin Infusion - IVPB TITR KRISTYN Protocol 800 UNITS/HR Impression 1. renal mass 2. htn 3. hypokalemia 4. vomiting 5. substance abuse 6. gerd 7. left renal cyts Plan - potassium is improved - renal lesion on the ct scan was not visualized on the ultrasound - urology input pending - monitor lyets - can cont fluids Dr Mayorga
[2018-09-17 13:38] VITALS: BMI 19.2
--- NOTE | 2018-09-17 15:39 | PN ---
Teaching Attending Note Name of Resident: Nalini Farrar ATTENDING PHYSICIAN STATEMENT I saw and evaluated the patient. I reviewed the resident's note and discussed the case with the resident. I agree with the resident's findings and plan as documented. SUBJECTIVE: nauseous , cont to tolerate liquids but not solids. feels solid food is stuck in her throat. has LUQ painx 2 weeks. No fevers. has one miscarriage and 5 healthy children . her sister had DVt ( unknown if provoked), many females in family had miscarriages. has gastritis. had colonoscopy many years ago, does not remember results or GI doc OBJECTIVE: NAD , awake, alert, cooperative HEENT: MMM, no thrush, small 1 cm lymph node in R submandibular area. nl oropharynx CV: RRR, no MRG Lungs: CTAB Abd: soft, Nd, TTP in LUQ, . nL BS . ext : no edema or erythema. dry skin. No Lymphadenopathy in groins, or axllary area. one lymph node in neck as above. ASSESSMENT AND PLAN: 48 y/o lady with h/o CVA, hTN, GERD, depression and anxiety, cocaine and marijuana use , who presented with N/V and abd pain. She was found to have splenic infarct and other pathologies. 1- Splenic infarct. unclear etiology. r/o hypercoagulable state. has h/o stroke- --> r/o paroxismal A fib. - cont heparin gtt pending hypercoagulable w/u - check Monospot - check doppler US to r/o splenic vein thrombosis. - follow Hb electropheresis. - check HIV test . will consent her - LUQ pain is probably due to infarct - echo . - transfer to tele for cardiac monitoring to r/o A fib 2- N/V . due to splenic infarct and possible gastritis . ? cyclic vomiting sx with Marijuana use - cont with liquid diet - has dysphagea , order speech eval - GI for possible EGD and further eval 3- UTI. cont ceftriaxone 4- bl renal complex lesions on CT scan, US with R renal cyst. will follow as out pt . patient was made aware 5- Appendix enlargement. Not sure is indicates appendicitis or not. seen by Sx. - cont CTX and flagyl - consult GI 6- HTN : was sposed to be on Norvasc , but takes no meds - cont norvasc for now
[2018-09-17] MEDS: HEPARIN INFUSION - 25,000 UNITS/500 ML INFUS.BAG IVPB SCH (15:56)
--- NOTE | 2018-09-17 17:10 | CON.CARD ---
Consult Consult Specialty:: Cardiology Referred by:: Hospitalist Medicine Reason for Consultation:: Splenic infarcts - History of Present Illness Chief Complaint: Abd pain, nausea and emesis History of Present Illness: 48 yo female PMH CVA (2002), GERD/gastritis, cocaine/marijuana abuse, HTN, depression presented to the ED with complaints of LUQ pain, persistent nausea/ vomiting anorexia, frequent nonbloody loose stools. Additionally, she complains of chest pain that is worsened when she is vomiting and breathing deeply, but denies chest pain, dyspnea, palpitations, near or true syncope. CT abd/pelvis performed on revealing dilated appendix, complex renal lesions, and splenic infarct. No surgical intervention planned as low suspicion for acute appendicitis. Doppler US revealing patent vasculature. Hypercoagulable workup pending. 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 Cardio/Vascular: Yes: HTN Gastrointestinal: Yes: GERD ...LMP: 11/26/15 ...: No Psych: Yes: Depression - Alcohol/Substance Use Hx Alcohol Use: No History of Substance Use: reports: Cocaine, Marijuana - Smoking History Smoking history: Current every day smoker Have you smoked in the past 12 months: Yes Aproximately how many cigarettes per day: 0 - Social History History of Recent Travel: No Home Medications - Allergies Allergies/Adverse Reactions: Allergies Allergy/AdvReac Type Severity Reaction Status Date / Time beeswax Allergy Severe Difficulty Verified 09/14/18 12:51 Breathing coconut oil Allergy Severe Itching Verified 09/14/18 12:51 - Home Medications Home Medications: Ambulatory Orders Amlodipine Besylate [Norvasc -] 5 mg PO DAILY #30 tablet 06/10/18 Quetiapine Fumarate [Seroquel] 100 mg PO HS #30 tablet 06/10/18 Family Disease History - Family Disease History Family Disease History: Diabetes: Mother (), Heart Disease: Mother, Other: Father (), Mother Review of Systems - Review of Systems Gastrointestinal: reports: Abdominal Pain, Nausea, Vomiting Vital Signs: Vital Signs Temperature 98.9 F 09/17/18 14:35 Pulse Rate 75 09/17/18 14:35 Respiratory Rate 18 09/17/18 14:35 Blood Pressure 113/84 09/17/18 14:35 O2 Sat by Pulse Oximetry (%) 100 09/17/18 09:00 Constitutional: Yes: No Distress, Calm, Thin Neck: Yes: Supple Respiratory: Yes: Regular, CTA Bilaterally Gastrointestinal: Yes: Soft, Hypoactive Bowel Sounds, Tenderness, Vomiting Cardiovascular: Yes: Regular Rate and Rhythm JVD: No Carotid Bruit: No Heart Sounds: Yes: S1, S2 Edema: No - Other Data Labs, Other Data: CBC, BMP 09/17/18 08:00 09/17/18 08:00 INR, PTT INR 1.13 (0.83-1.09) H 09/17/18 10:10 NSR @ 67 prolonged QTc 515msec Imaging - Results Chest X-ray: Report Reviewed (Hyperinflated lungs) Ultrasound: Report Reviewed (patent hepatic, portal and splenic veins) Problem List - Problems (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 (2) Prolonged QT interval Code(s): R94.31 - ABNORMAL ELECTROCARDIOGRAM [ECG] [EKG] (3) Abnormal CT scan, gastrointestinal tract Code(s): R93.3 - ABNORMAL FINDINGS ON DX IMAGING OF PRT DIGESTIVE TRACT (4) Hypertension Code(s): I10 - ESSENTIAL (PRIMARY) HYPERTENSION Qualifiers: Hypertension type: essential hypertension Qualified Code(s): I10 - Essential (primary) hypertension (5) Old cerebrovascular accident (CVA) without late effect Code(s): Z86.73 - PRSNL HX OF TIA (TIA), AND CEREB INFRC W/O RESID DEFICITS Assessment/Plan 1. Splenic infarct. unclear etiology. r/o hypercoagulable state. has h/o stroke- --> r/o paroxysmal A fib. 2. HTN 3. Prolonged QT 4. UTI P:1. Continue heparin gtt->coumadin per INR 2. F/u echo, tele monitor r/o PAF 3. Continue Norvasc, agree with holding seroquel and QT prolonging agents 4. Complete abx course 5. Thank you for consultative opportunity
--- NOTE | 2018-09-17 17:17 | CON.GI ---
Consult Consult Specialty:: Gastroenterology Reason for Consultation:: Nausea/vomiting, poor po intake, abnormal CT scan - History of Present Illness History of Present Illness: 48 yo female h/o CVA (2002), polysubstance abuse, HTN, depression presents with nausea/vomiting and diarrhea x 1 week. Pt reports developing nausea and vomiting approximately 1 week ago with inability to tolerate po. Also reports frequent loose stool, no blood. At baseline reports regular formed daily bm. Also reports generalized abdominal pain prior to admission though now states pain is mostly in LUQ. Denies fever/ chills. Reports weight loss 10-20lbs over the past 1-2 weeks. Still with nausea though better. States she attempted to eat solid food yesterday with difficulty and sensation of sticking, needing to regurgitate. No dysphagia prior to admission, denies odynophagia. Remote colonoscopy more than 10 years ago, reportedly normal, indication unclear. No prior EGD. Smokes marijuana daily, denies other recreational drug use. Drinks beers socially. No known family h/o GI malignancy. CT abd/pelvis performed on revealing dilated appendiX, complex renal lesions, and splenic infarct. No surgical intervention planned as low suspicion for acute appendicitis. Doppler US revealing patent vasculature. Hypercoagulable workup pending. 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 Cardio/Vascular: Yes: HTN Gastrointestinal: Yes: GERD ...LMP: 11/26/15 ...: No Psych: Yes: Depression - Alcohol/Substance Use Hx Alcohol Use: No History of Substance Use: reports: Cocaine, Marijuana - Smoking History Smoking history: Current every day smoker Have you smoked in the past 12 months: Yes Aproximately how many cigarettes per day: 0 - Social History History of Recent Travel: No Home Medications - Allergies Allergies/Adverse Reactions: Allergies Allergy/AdvReac Type Severity Reaction Status Date / Time beeswax Allergy Severe Difficulty Verified 09/14/18 12:51 Breathing coconut oil Allergy Severe Itching Verified 09/14/18 12:51 - Home Medications Home Medications: Ambulatory Orders Amlodipine Besylate [Norvasc -] 5 mg PO DAILY #30 tablet 06/10/18 Quetiapine Fumarate [Seroquel] 100 mg PO HS #30 tablet 06/10/18 Family Disease History - Family Disease History Family Disease History: Diabetes: Mother (), Heart Disease: Mother, Other: Father (), Mother Review of Systems - Review of Systems Constitutional: reports: Unintentional Wgt. Loss HENT: reports: Difficult Swallowing Cardiovascular: reports: No Symptoms Respiratory: reports: No Symptoms Gastrointestinal: reports: Abdominal Pain, Dysphagia, Nausea, Vomiting Physical Exam-GI Vital Signs: Vital Signs Temperature 98.9 F 09/17/18 14:35 Pulse Rate 75 09/17/18 14:35 Respiratory Rate 18 09/17/18 14:35 Blood Pressure 113/84 09/17/18 14:35 O2 Sat by Pulse Oximetry (%) 100 09/17/18 09:00 Constitutional: Yes: Well Nourished, No Distress, Calm HENT: Yes: Other (No thrush seen) Cardiovascular: Yes: WNL, Regular Rate and Rhythm Respiratory: Yes: WNL, Regular, CTA Bilaterally Gastrointestinal Inspection: Yes: WNL, Other (Abd soft, nt, nd No RLQ tenderness elicited) Edema: No Labs: CBC, BMP 09/17/18 08:00 09/17/18 08:00 INR, PTT INR 1.13 (0.83-1.09) H 09/17/18 10:10 Imaging - Results Cat Scan: Pending, Report Reviewed Ultrasound: Pending, Report Reviewed Problem List - Problems (1) Intractable vomiting with nausea Assessment/Plan: 48 yo female h/o CVA (2002), polysubstance abuse (marijuana per pt), HTN, depression presents with nausea/vomiting and diarrhea x 1 week with reported 10- 20lb weight loss and CT imaging revealing a dilated appendix, complex renal lesions, and splenic infarct. No surgical intervention planned as low suspicion for acute appendicitis with unclear exact clinical significance for dilated appearing appendix. Doppler US revealing patent vasculature. Pt started on heparin gtt with hypercoagulable workup pending. Some clinical improvement though still with LUQ pain, nausea, poor po intake and loose stool with new onset dysphagia. No overt bleeding or evidence of anemia. Possible etiologies including self limiting gastroenteritis vs cannabis hyperemesis syndrome vs gastritis vs esophagitis vs PUD vs functional or nonulcer dyspepsia vs symptomatology secondary to splenic infarct. No oral thrush seen. No obvious hepatobiliary pathology and LFTs normal. -Continue supportive measures, IVF, diet as tolerated -PPI daily -Antireflux measures -Recommend check stool C difficile and ova/parasites r/o infectious etiologies though low suspicion -Anticoagulation and hypercoagulable work up per hematology -Workup for embolic disease per cardiology -Check TSH -Follow up HIV testing -Marijuana cessation -Pending above and if symptoms persist would consider EGD for further evaluation Code(s): R11.2 - NAUSEA WITH VOMITING, UNSPECIFIED Qualifiers: Vomiting type: unspecified Qualified Code(s): R11.2 - Nausea with vomiting , unspecified
--- NOTE | 2018-09-17 17:58 | PN ---
Physical Exam: SUBJECTIVE: Patient seen and examined with LUQ pain; tried to eat last not; unable due to nausea OBJECTIVE: Vital Signs Period Temp Pulse Resp BP Sys/Enriquez Pulse Ox Last 24 Hr 98.4 F-98.9 F 60-75 18-18 113-139/84-96 100-100 GENERAL: The patient is awake, alert, and fully oriented, in no acute distress. NECK: Trachea midline, full range of motion, supple. LUNGS: Breath sounds equal, clear to auscultation bilaterally, no wheezes, no crackles, no accessory muscle use. HEART: Regular rate and rhythm, S1, S2 without murmur, rub or gallop. ABDOMEN: Soft, +tender LUQ, nondistended, normoactive bowel sounds, no guarding , no rebound, no hepatosplenomegaly, no masses. EXTREMITIES: 2+ pulses, warm, well-perfused, no edema. NEUROLOGICAL: Cranial nerves II through XII grossly intact. Normal speech, gait not observed. PSYCH: Normal mood, normal affect. SKIN: Warm, dry, normal turgor, no rashes or lesions noted Laboratory Results - last 24 hr 09/14/18 09/17/18 09/17/18 06:15 06:10 08:00 WBC 5.1 RBC 3.74 Hgb 12.6 Hct 36.9 MCV 98.7 H MCH 33.7 MCHC 34.1 RDW 14.8 Plt Count 392 MPV 8.6 ESR PT with INR INR PTT (Actin FS) Sodium 136 Potassium 3.7 Chloride 104 Carbon Dioxide 23 Anion Gap 9 BUN 4 L Creatinine 0.6 Creat Clearance w eGFR > 60 Random Glucose 77 Calcium 8.4 L Phosphorus 3.5 Magnesium 2.1 Total Bilirubin AST ALT Alkaline Phosphatase C-Reactive Protein Total Protein Albumin Hepatitis Be Antibody Negative Hepatitis Be Antigen Negative HCV Quantitation Hcv not detected HCV RNA log copies/mL TNP 09/17/18 09/17/18 09/17/18 08:00 08:00 10:10 WBC RBC Hgb Hct MCV MCH MCHC RDW Plt Count MPV ESR 78 H PT with INR 13.40 H INR 1.13 H PTT (Actin FS) 37.7 H Sodium 137 Potassium 3.9 Chloride 105 Carbon Dioxide 25 Anion Gap 7 L BUN 4 L Creatinine 0.6 Creat Clearance w eGFR > 60 Random Glucose 76 Calcium 8.6 Phosphorus Magnesium Total Bilirubin 0.2 AST 25 ALT 38 Alkaline Phosphatase 91 C-Reactive Protein 3.1 H Total Protein 7.4 Albumin 2.7 L Hepatitis Be Antibody Hepatitis Be Antigen HCV Quantitation HCV RNA log copies/mL Active Medications Generic Name Dose Route Start Last Admin Trade Name Freq PRN Reason Stop Dose Admin Acetaminophen 650 mg 09/16/18 20:33 09/16/18 21:34 Tylenol - PO 650 mg Q6H PRN Administration Fever Or Pain Amlodipine Besylate 5 mg 09/16/18 14:15 09/17/18 11:45 Norvasc - PO 5 mg DAILY KRISTYN Administration Heparin Sodium (Porcine) 1,000 unit 09/17/18 10:18 Heparin - IVPUSH PRN PRN Heparin Heparin Sodium (Porcine) 5,000 unit 09/17/18 10:18 09/17/18 15:56 Heparin - IVPUSH 5,000 unit PRN PRN Administration Heparin Famotidine/Sodium Chloride 20 mg in 50 mls @ 100 mls/hr 09/14/18 22:00 11:44 Pepcid 20 Mg Premixed Ivpb - IVPB 100 mls/hr BID KRISTYN Administration Potassium Chloride 10 meq/ 1,005 mls @ 100 mls/hr 09/16/18 17:09 09/17/18 12: 48 Sodium Chloride IVPB Not Given Q10H KRISTYN Ceftriaxone Sodium 2 gm/ 100 mls @ 200 mls/hr 09/17/18 10:00 09/17/18 11:44 Dextrose IVPB 200 mls/hr DAILY KRISTYN Administration Protocol Metronidazole 500 mg in 100 mls @ 100 mls/hr 09/16/18 20:15 09/17/18 11:44 Flagyl 500mg Premixed Ivpb - IVPB 100 mls/hr Q8H-IV KRISTYN Administration Heparin Sodium/Dextrose 25,000 units in 500 mls @ 16 mls/hr 09/17/18 10:30 15:56 Heparin Infusion - IVPB 800 units/hr TITR KRISTYN 16 mls/hr Administration Protocol 800 UNITS/HR ASSESSMENT/PLAN: This is a 48 year old female with polysubstance abuse; presenting with gastritis , n,v, abdominal pain and 20wt loss for the past two weeks. Currently being treated for UTI. Found to have lesion on kidneys and splenic infarct on CT. Work up for thrombophilia. Splenic infarct lesions on kidneys b/l UTI N/V -work up for thrombophilia in progress -hemoglobin electrophoreisis, nakia, esr, crp, RF, protein c/s antigen and activity, antithrombin III activity/antigen, factor V leiden mutation, prothrombin gene [id number] mutation, lupus anticoagulant, anticardiolipin ab IgA/ IgM, antib2 glycoprotein I ab IgG/IgM, Jak2 mutation -echocardiogram eval for PFO ; dopplers -start heparin ggt; due to acuteness of infacrt ;+ LUQ pain will follow Visit type - Emergency Visit Emergency Visit: Yes ED Registration Date: 09/15/18 Care time: The patient presented to the Emergency Department on the above date and was hospitalized for further evaluation of their emergent condition. - New Patient This patient is new to me today: No - Critical Care Critical Care patient: No
[2018-09-17] MEDS ORDERED: PROCHLORPERAZINE INJECTION 10 MG/2 ML VIAL IVPB PRN (18:01)
[2018-09-17] MEDS ORDERED: PROCHLORPERAZINE INJECTION 10 MG/2 ML VIAL IM PRN (18:21)
[2018-09-17] MEDS: ACETAMINOPHEN 325 MG TABLET (FP) PO PRN (18:37)
--- NOTE | 2018-09-17 20:28 | PN ---
Teaching Attending Note Name of Resident: Rabia Borden ATTENDING PHYSICIAN STATEMENT I saw and evaluated the patient. I reviewed the resident's note and discussed the case with the resident. I agree with the resident's findings and plan as documented. SUBJECTIVE:Patient seen and examined Still with nausea and emesis Still with abdominal LUQ pains Last Vital Signs Temp Pulse Resp BP Pulse Ox 98.1 F 68 18 133/89 100 09/17/18 17:30 09/17/18 17:30 09/17/18 17:30 09/17/18 17:30 09/17/18 09:00 HEENT: TAMANNA, EOM Intact Oropharynx: No thrush, No mucositis Cor: RSR, No murmurs, No gallops Lungs: Clear to P&A Abd: Soft, Normal bowel sounds, No organomegaly, LUQ tenderness Ext:No significant edema Skin: No rashes, Integument intact CBC, BMP 09/17/18 08:00 09/17/18 08:00 Current Medications Generic Name Dose Route Start Last Admin Trade Name Freq PRN Reason Stop Dose Admin Acetaminophen 650 mg 09/16/18 20:33 09/17/18 18:37 Tylenol - PO 650 mg Q6H PRN Administration Fever Or Pain Amlodipine Besylate 5 mg 09/16/18 14:15 09/17/18 11:45 Norvasc - PO 5 mg DAILY KRISTYN Administration Heparin Sodium (Porcine) 1,000 unit 09/17/18 10:18 Heparin - IVPUSH PRN PRN Heparin Heparin Sodium (Porcine) 5,000 unit 09/17/18 10:18 09/17/18 15:56 Heparin - IVPUSH 5,000 unit PRN PRN Administration Heparin Famotidine/Sodium Chloride 20 mg in 50 mls @ 100 mls/hr 09/14/18 22:00 11:44 Pepcid 20 Mg Premixed Ivpb - IVPB 100 mls/hr BID KRISTYN Administration Potassium Chloride 10 meq/ 1,005 mls @ 100 mls/hr 09/16/18 17:09 09/17/18 12: 48 Sodium Chloride IVPB Not Given Q10H KRISTYN Ceftriaxone Sodium 2 gm/ 100 mls @ 200 mls/hr 09/17/18 10:00 09/17/18 11:44 Dextrose IVPB 200 mls/hr DAILY KRISTYN Administration Protocol Metronidazole 500 mg in 100 mls @ 100 mls/hr 09/16/18 20:15 09/17/18 18:06 Flagyl 500mg Premixed Ivpb - IVPB Not Given Q8H-IV KRISTYN Heparin Sodium/Dextrose 25,000 units in 500 mls @ 16 mls/hr 09/17/18 10:30 15:56 Heparin Infusion - IVPB 800 units/hr TITR KRISTYN 16 mls/hr Administration Protocol 800 UNITS/HR Prochlorperazine Edisylate 5 mg 09/17/18 18:21 Compazine Injection - IM Q6H PRN NAUSEA Impression: Splenic infarct ? etiology Antibiotics and a/c begun Work up for etiology underway UTI - under therapy. OBJECTIVE: ASSESSMENT AND PLAN:
--- NOTE | 2018-09-18 00:50 | ECHO ---
Version: 1 Name: WILY BECKFORD Exam: Adult Echocardiogram Study Date: 09/17/2018, 12:25 PM Age: 48 Years MMode/2D Measurements & Calculations IVSd: 1.04 cm LVIDs: 2.12 cm LVIDd: 3.8 cm LVPWd: 0.93 cm LAV (MOD-bp): 24.4 ml Ao root diam: 2.5 cm LA dimension: 2.6 cm Doppler Measurements & Calculations MV E max jonathan: 77.6 cm/sec Med E/e': 10.2 MV A max jonathan: 70.3 cm/sec Med Peak E' Jonathan: 7.6 cm/sec MV E/A: 1.10 Lat E/e': 8.5 Lat Peak E' Jonathan: 9.1 cm/sec TR max jonathan: 162.9 cm/sec TR max P.6 mmHg Left Ventricle The left ventricle is normal in size. There is borderline concentric left ventricular hypertrophy. E jection Fraction = 60%. The transmitral spectral Doppler flow pattern is normal for age. Mitral Valve There is mild mitral valve thickening. There is trace mitral regurgitation. Tricuspid Valve There is Trace to mild tricuspid regurgitation. Right ventricular systolic pressure is normal. Aortic Valve There is mild aortic valve thickening. Pulmonic Valve Mild pulmonic valvular regurgitation. Summary Statements Mild pulmonic valvular regurgitation. There is mild aortic valve thickening. There is mild mitral valve thickening. There is Trace to mild tricuspid regurgitation. Right ventricular systolic pressure is normal. There is trace mitral regurgitation. The transmitral spectral Doppler flow pattern is normal for age. Ejection Fraction = 60%. The left ventricle is normal in size. There is borderline concentric left ventricular hypertrophy. Qasim Grissom MD 09/18/2018, 12:49 AM Ordering Physician: Rabia Borden Performed By: Bonita Reynolds
[2018-09-18 08:15] LABS: HEMATOCRIT 33.5 % (32.4-45.2); HEMOGLOBIN 11.4 GM/dL (10.7-15.3); MCH 33.1 pg (25.7-33.7); MEAN CELL VOLUME 97.4 fl (80-96); MEAN PLT VOLUME 8.3 fl (7.5-11.1); PLATELET COUNT 398 K/MM3 (134-434); RBC 3.44 M/mm3 (3.60-5.2)
--- NOTE | 2018-09-18 08:26 | PN ---
Physical Exam: SUBJECTIVE: Patient seen and examined at bedside- no acute events overnight; patient states she is feeling better; her abdominal pains are improving and she is hungry. she denies any CP/SOB/N/V fevers or chills OBJECTIVE: Vital Signs Period Temp Pulse Resp BP Sys/Enriquez Pulse Ox Last 24 Hr 98.1 F-98.9 F 63-75 16-18 111-133/58-96 100-100 GENERAL: The patient is awake, alert, and fully oriented, in no acute distress.. EYES: EOMI; PEERLA; no scleral icterus NECK: no JVD; no lymphadenopathy LUNGS: CTA B/L; no rales, rhonchi or wheezing HEART: Regular rate and rhythm, S1, S2 without murmur, rub or gallop. ABDOMEN: Soft, slight tenderness upon palpation mainly in LUQ, nondistended, normoactive bowel sounds, no guarding, no rebound, no hepatosplenomegaly, no masses. EXTREMITIES: 2+ pulses, warm, well-perfused, no edema. NEUROLOGICAL: Cranial nerves II through XII grossly intact. Normal speech, gait not observed. PSYCH: Normal mood, normal affect. SKIN: Warm, dry, normal turgor, no rashes or lesions noted Laboratory Results - last 24 hr 09/17/18 09/17/18 09/17/18 08:00 08:00 08:00 WBC 5.1 RBC 3.74 Hgb 12.6 Hct 36.9 MCV 98.7 H MCH 33.7 MCHC 34.1 RDW 14.8 Plt Count 392 MPV 8.6 ESR 78 H PT with INR INR PTT (Actin FS) Sodium 137 Potassium 3.9 Chloride 105 Carbon Dioxide 25 Anion Gap 7 L BUN 4 L Creatinine 0.6 Creat Clearance w eGFR > 60 Random Glucose 76 Calcium 8.6 Total Bilirubin 0.2 AST 25 ALT 38 Alkaline Phosphatase 91 C-Reactive Protein 3.1 H Total Protein 7.4 Albumin 2.7 L Rheumatoid Arth Biomark 09/17/18 09/17/18 09/18/18 08:00 10:10 07:00 WBC 5.0 RBC 3.44 L Hgb 11.4 Hct 33.5 MCV 97.4 H MCH 33.1 MCHC 34.0 RDW 15.0 Plt Count 398 MPV 8.3 ESR PT with INR 13.40 H INR 1.13 H PTT (Actin FS) 37.7 H Sodium Potassium Chloride Carbon Dioxide Anion Gap BUN Creatinine Creat Clearance w eGFR Random Glucose Calcium Total Bilirubin AST ALT Alkaline Phosphatase C-Reactive Protein Total Protein Albumin Rheumatoid Arth Biomark < 10.0 Active Medications Generic Name Dose Route Start Last Admin Trade Name Freq PRN Reason Stop Dose Admin Acetaminophen 650 mg 09/16/18 20:33 09/17/18 18:37 Tylenol - PO 650 mg Q6H PRN Administration Fever Or Pain Amlodipine Besylate 5 mg 09/16/18 14:15 09/17/18 11:45 Norvasc - PO 5 mg DAILY KRISTYN Administration Heparin Sodium (Porcine) 1,000 unit 09/17/18 10:18 Heparin - IVPUSH PRN PRN Heparin Heparin Sodium (Porcine) 5,000 unit 09/17/18 10:18 09/17/18 15:56 Heparin - IVPUSH 5,000 unit PRN PRN Administration Heparin Famotidine/Sodium Chloride 20 mg in 50 mls @ 100 mls/hr 09/14/18 22:00 22:02 Pepcid 20 Mg Premixed Ivpb - IVPB 100 mls/hr BID KRISTYN Administration Potassium Chloride 10 meq/ 1,005 mls @ 100 mls/hr 09/16/18 17:09 09/17/18 23: 15 Sodium Chloride IVPB Not Given Q10H KRISTYN Ceftriaxone Sodium 2 gm/ 100 mls @ 200 mls/hr 09/17/18 10:00 09/17/18 11:44 Dextrose IVPB 200 mls/hr DAILY KRISTYN Administration Protocol Metronidazole 500 mg in 100 mls @ 100 mls/hr 09/16/18 20:15 09/18/18 01:26 Flagyl 500mg Premixed Ivpb - IVPB Not Given Q8H-IV KRISTYN Heparin Sodium/Dextrose 25,000 units in 500 mls @ 16 mls/hr 09/17/18 10:30 15:56 Heparin Infusion - IVPB 800 units/hr TITR KRISTYN 16 mls/hr Administration Protocol 800 UNITS/HR Prochlorperazine Edisylate 5 mg 09/17/18 18:21 09/17/18 20:28 Compazine Injection - IM 5 mg Q6H PRN Administration NAUSEA ASSESSMENT/PLAN: 48F w/ pmhx of CVA (2002), GERD/gastritis, cocaine/marijuana abuse, HTN, depression presented to the ED with complaints of persistent nausea/vomiting since Saturday #Intractable nausea/vomiting; likely 2/2 Cyclical Vomiting syndrome due to marijuana use vs. viral gastroenteritis, r/o colitis. -CT Ab/pelvis shows dilated appendix- surgery saw patient ; no surgery indicated at this time -regular diet -NS @ 100 for hydration -Pepcid 20 mg IVPB BID -Compazine PRN for nausea -Avoid QTc prolonging agents -GI is consulted- patient will be getting an Upper GI series tomorrow -day 3 of flagyl #Hypertension; . -patient is on amlodipine 5mg daily #Splenic INfarct splenic infarct seen on ab/pelvis CT; etiology -doppler study shows no evidence of splenic vein thrombosis -f/u monosopt test -heme onc consulted -thrombophilia workup in progress -blood cx pending -echo normal -cardio consulted -ID consulted - get their opinion if antibiotics is still necessary #UTI -U/A showed 35 WBC, +Trace LE; cx growing lactose fermenting negative bacilli -started patient on ceftriaxone- can d/c as she finished 7 days -growing e coli #Hx of Polysubstance abuse (alcohol/cocaine/marijuana) -CIWA ~7 -Pt states she last attempted to drink yesterday, but was unable to tolerate anything PO. Additionally, her last drink prior to yesterday's attempt was over 1 week ago, prior to the onset of her symptoms. Low suspicion for alcohol withdrawal, but will monitor for possible symptoms and consider Librium protocol. -Drug cessation counseling #Prophylaxis heparin drip -Pepcid 20 mg IVPB BID #FEN -NS @ 100 -recheck lytes (K) in AM -regular diet as tolerated Problem List - Problems (1) Abnormal CT scan, gastrointestinal tract Code(s): R93.3 - ABNORMAL FINDINGS ON DX IMAGING OF PRT DIGESTIVE TRACT (2) Intractable vomiting with nausea Code(s): R11.2 - NAUSEA WITH VOMITING, UNSPECIFIED Qualifiers: Vomiting type: unspecified Qualified Code(s): R11.2 - Nausea with vomiting , unspecified (3) Hypertension Code(s): I10 - ESSENTIAL (PRIMARY) HYPERTENSION Qualifiers: Hypertension type: essential hypertension Qualified Code(s): I10 - Essential (primary) hypertension Visit type - Emergency Visit Emergency Visit: Yes ED Registration Date: 09/15/18 Care time: The patient presented to the Emergency Department on the above date and was hospitalized for further evaluation of their emergent condition. - New Patient This patient is new to me today: No - Critical Care Critical Care patient: No
[2018-09-18 08:38] LABS: ANION GAP 10 MMOL/L (8-16); BLOOD UREA NITROGEN 3 mg/dL (7-18); CALCIUM 8.4 mg/dL (8.5-10.1); CHLORIDE 105 mmol/L (98-107); CO2 23 mmol/L (21-32); CREATININE 0.5 mg/dL (0.55-1.3); GLUCOSE,RANDOM 86 mg/dL (74-106); MAGNESIUM 1.5 mg/dL (1.8-2.4); PHOSPHOROUS 3.5 mg/dL (2.5-4.9); POTASSIUM 3.5 mmol/L (3.5-5.1); SODIUM 138 mmol/L (136-145)
[2018-09-18] MEDS ORDERED: MAGNESIUM OXIDE 400 MG TABLET (FP) PO ONE ×2 (08:39→17:45)
[2018-09-18] MEDS ORDERED: DEXTROSE 5%-WATER 100 ML IVPB ONE (09:27)
[2018-09-18] MEDS: amLODIPine BESYLATE 5 MG TABLET (FP) PO SCH (09:35)
[2018-09-18] MEDS: CEFTRIAXONE 2 GM in DEXTROSE 5%-WATER 100 ML IVPB SCH (09:49)
[2018-09-18] MEDS: POTASSIUM CHLORIDE 10 MEQ in SODIUM CHLORIDE 0.45% 1,000 ML IVPB SCH ×2 (09:50→16:50)
[2018-09-18] MEDS: ACETAMINOPHEN 325 MG TABLET (FP) PO PRN ×2 (09:56→18:15)
[2018-09-18] MEDS: FAMOTIDINE 20 MG/50 ML IVPB 20 MG/50 ML MG IVPB SCH ×2 (09:59→21:25)
--- NOTE | 2018-09-18 10:04 | PN ---
Progress Note, Physician History of Present Illness: LUQ pain, nausea and emesis improving. No PAF on telemetry. - Current Medication List Current Medications: Active Medications Acetaminophen (Tylenol -) 650 mg PO Q6H PRN PRN Reason: Fever Or Pain Last Admin: 09/18/18 09:56 Dose: 650 mg Amlodipine Besylate (Norvasc -) 5 mg PO DAILY KRISTYN Last Admin: 09/18/18 09:35 Dose: 5 mg Heparin Sodium (Porcine) (Heparin -) 1,000 unit IVPUSH PRN PRN PRN Reason: Heparin Heparin Sodium (Porcine) (Heparin -) 5,000 unit IVPUSH PRN PRN PRN Reason: Heparin Last Admin: 09/17/18 15:56 Dose: 5,000 unit Famotidine/Sodium Chloride (Pepcid 20 Mg Premixed Ivpb -) 20 mg in 50 mls @ 100 mls/hr IVPB BID KRISTYN Last Admin: 09/18/18 09:59 Dose: 100 mls/hr Potassium Chloride 10 meq/ (Sodium Chloride) 1,005 mls @ 100 mls/hr IVPB Q10H KRISTYN Last Admin: 09/18/18 09:50 Dose: Not Given Ceftriaxone Sodium 2 gm/ (Dextrose) 100 mls @ 200 mls/hr IVPB DAILY KRISTYN; Protocol Last Admin: 09/18/18 09:49 Dose: Not Given Metronidazole (Flagyl 500mg Premixed Ivpb -) 500 mg in 100 mls @ 100 mls/hr IVPB Q8H-IV KRISTYN Last Admin: 09/18/18 09:49 Dose: Not Given Heparin Sodium/Dextrose (Heparin Infusion -) 25,000 units in 500 mls @ 16 mls/ hr IVPB TITR KRISTYN; Protocol Last Titration: 09/18/18 09:36 Dose: 900 units/hr, 18 mls/hr Prochlorperazine Edisylate (Compazine Injection -) 5 mg IM Q6H PRN PRN Reason: NAUSEA Last Admin: 09/17/18 20:28 Dose: 5 mg - Objective Vital Signs: Vital Signs Temperature 97.8 F 09/18/18 08:44 Pulse Rate 74 09/18/18 08:44 Respiratory Rate 18 09/18/18 08:44 Blood Pressure 134/82 09/18/18 08:44 O2 Sat by Pulse Oximetry (%) 100 09/18/18 08:44 Constitutional: Yes: No Distress, Calm, Thin Neck: Yes: Supple Cardiovascular: Yes: Regular Rate and Rhythm Respiratory: Yes: Regular, CTA Bilaterally Gastrointestinal: Yes: Soft, Hypoactive Bowel Sounds, Tenderness (LIQ) Edema: No Labs: CBC, BMP 09/18/18 07:00 09/18/18 07:00 INR, PTT INR 1.13 (0.83-1.09) H 09/17/18 10:10 - ....Imaging EKG: Report Reviewed (Tele: NSR, no PAF) Problem List - Problems (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 (2) Prolonged QT interval Code(s): R94.31 - ABNORMAL ELECTROCARDIOGRAM [ECG] [EKG] (3) Abnormal CT scan, gastrointestinal tract Code(s): R93.3 - ABNORMAL FINDINGS ON DX IMAGING OF PRT DIGESTIVE TRACT (4) Hypertension Code(s): I10 - ESSENTIAL (PRIMARY) HYPERTENSION Qualifiers: Hypertension type: essential hypertension Qualified Code(s): I10 - Essential (primary) hypertension (5) Old cerebrovascular accident (CVA) without late effect Code(s): Z86.73 - PRSNL HX OF TIA (TIA), AND CEREB INFRC W/O RESID DEFICITS Assessment/Plan 09/17/2018 Echo: Normal LV size with borderline cLVH, normal LVEF 60%, normal atrial sizes, mild LA, tr-mild TR, tr MR 1. Splenic infarct. unclear etiology. r/o hypercoagulable state. has h/o stroke- --> r/o paroxysmal A fib. 2. HTN 3. Prolonged QT 4. UTI P:1. Continue heparin gtt->coumadin per INR 2. Tele monitor r/o PAF 3. Continue Norvasc 5 qd, agree with holding seroquel and QT prolonging agents 4. Complete abx course 5. Clear liquid diet 6. Repeat ECG for QT
--- NOTE | 2018-09-18 11:21 | PN ---
GI Progress Note Subjective: Able to eat today. had the oatmeal for breakfast as the eggs and hashbrown looked and smelled too greasy to her No abdominal pain / vomiting No dysphagia reported States LUQ pain resolved - Objective Vital Signs: Vital Signs Temperature 97.8 F 09/18/18 08:44 Pulse Rate 74 09/18/18 08:44 Respiratory Rate 18 09/18/18 08:44 Blood Pressure 134/82 09/18/18 08:44 O2 Sat by Pulse Oximetry (%) 100 09/18/18 08:44 Constitutional: Calm Eyes: No: Sclera Icterus HENT: Yes: Other (No oropharyngeal candidiasis) Cardiovascular: Yes: Regular Rate and Rhythm. No: Murmur Respiratory: Yes: CTA Bilaterally ...Auscultate: Yes: Normoactive Bowel Sounds ...Palpate: No: Hepatomegaly, Splenomegaly, Tenderness ...Percussion: No: Tympanitic Edema: No (No LE edema) Neurological: Yes: Alert Labs: CBC, BMP 09/18/18 07:00 09/18/18 07:00 INR, PTT INR 1.13 (0.83-1.09) H 09/17/18 10:10 Hepatic Panel Total Bilirubin 0.2 mg/dL (0.2-1) 09/17/18 08:00 AST 25 U/L (15-37) 09/17/18 08:00 ALT 38 U/L (13-61) 09/17/18 08:00 Alkaline Phosphatase 91 U/L (45-117) 09/17/18 08:00 Albumin 2.7 g/dl (3.4-5.0) L 09/17/18 08:00 Problem List - Problems (1) Vomiting Assessment/Plan: No further vomiting No complaints of dysphagia today Ordered Esophagram / UGIS for AM Advised marijuana cessation: discussed cannibinoid hyperemesis syndrome Pending results of UGIS, possible EGD when heparin can safely be held Code(s): R11.10 - VOMITING, UNSPECIFIED
[2018-09-18] MEDS: HEPARIN INFUSION - 25,000 UNITS/500 ML INFUS.BAG IVPB SCH (11:32)
--- NOTE | 2018-09-18 12:28 | CONSULT ---
Admitting History and Physical - Primary Care Physician PCP: Jeaneth Laguna - Admission History of Present Illness: 48F w/ pmhx of CVA (2002), GERD/gastritis, cocaine/marijuana abuse, HTN, depression presented to the ED with complaints of persistent nausea/vomiting, gastritis, n,v, abdominal pain and 20wt loss for the past two weeks. Currently being treated for UTI. Found to have lesion on kidneys and splenic infarct on CT. Work up for thrombophilia. Selected Entries 09/17/18 09/17/18 09/17/18 06:01 10:00 10:28 Breakfast 25% Diet Tolerated Poor Lunch Temperature 98.4 F 98.4 F 09/17/18 09/17/18 09/17/18 14:35 17:30 21:00 Breakfast Diet Tolerated Poor Lunch 25% Temperature 98.9 F 98.1 F 98.3 F 09/18/18 09/18/18 09/18/18 05:31 08:44 11:18 Breakfast 25% Diet Tolerated Fair Lunch Temperature 98.2 F 97.8 F Laboratory Tests 09/18/18 07:00 WBC 5.0 Pt reported recent dysphagia secondary to irritation and fear of throwing up again. Pt had breakfast today without difficulty. 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 Cardiovascular: Yes: HTN Gastrointestinal: Yes: GERD ...LMP: 11/26/15 ...: No Psych: Yes: Depression - Smoking History Smoking history: Current every day smoker Have you smoked in the past 12 months: Yes Aproximately how many cigarettes per day: 0 - Alcohol/Substance Use Hx Alcohol Use: No History of Substance Use: reports: Cocaine, Marijuana - Social History History of Recent Travel: No History - Admission Reason For Visit: MODERATE TETRAHYDROCANNABINOL DEPENDENCE - Diagnostics X-ray: Report Reviewed CT Scan: Report Reviewed - General Mental Status: Alert and Oriented, Awake and Alert, Able to Follow Commands Attention: Intact Ability to Follow Directions: Good Head/Neck Control: WFL - Hearing Hearing: Normal Speech Evaluation - Communication Primary Language: ESTONIAN Oral Expression Ability: Yes: Mild Impairment - Speech Production Able to Make Needs Known: Yes: WNL Intelligibility: Yes: WNL - Speech Characteristics Voice Loudness: Normal Voice Pitch: Yes: Mildly Low Voice Phonatory-based Quality: Yes: Harsh Speech Clarity: < 100% Nasal Resonance: Normal Articulation: Yes: Precise Rate of Speech: Intact - Language/Auditory Comprehension Follows: Yes: 1 Stage Simple Commands - Language/Verbal Expression Able to Respond to Simple Queries: Yes: WNL Able to Communicate Wants and Needs: Yes: WNL Functional Communication Status: Yes: WNL - Memory/Perception USP Memory: Yes: WNL Short Term Memory: Yes: WNL - Swallow Evaluation/Bedside Assessment Current Nutritional Intake: Regular, Thin Liquids Oral Secretions: Yes: WFL Dentition: Yes: Adequate, Missing Teeth Facial Symmetry at Rest: Symmetrical Facial Symmetry on Retraction: Symmetrical Facial Movement: Controlled Against Resistance Opening: Normal Against Resistance Closing: Normal Pucker Lips: Normal Smile: Normal Lingual Movement: Normal, Symmetric Lingual Speed of Movement: Normal Lingual Movement Strgth Against Opposition: Normal Lingual Movement Characteristics: Normal Velopharyngeal Movement: Normal Laryngeal Elevation: WFL Laryngeal Movement: Able to Palpate Rate of Intake: WFL Bolus Size: WFL Labial Seal: WFL Chewing: WFL Oral Prep Time: WFL A-P Transit: WFL Pocketing: None Timing of Swallow: WFL Coughing/Throat Clear: No Change in Voice: No Recommendations - Speech Evaluation, Impression/Plan Impression: Vocal quality harsh, which 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 Denies dysphagia/odynophagia. 3 oz water test(-) - Dysphagia Impressions/Plan Swallowing Skills: WFL Dysphagia Impressions: No Impairment *Silent aspiration: cannot be R/O at bedside - Recommendations Diet Consistency: Regular Medication Administration: Whole with water Liquids: Thin Liquids
--- NOTE | 2018-09-18 13:43 | PN ---
Physical Exam: SUBJECTIVE: Patient seen and examined; less n; no vomiting; ate some oatmeal today; less LUQ pain; on hep ggt for splenic infarct OBJECTIVE: Vital Signs Period Temp Pulse Resp BP Sys/Enriquez Pulse Ox Last 24 Hr 97.8 F-98.9 F 63-78 16-18 111-134/58-89 100-100 GENERAL: The patient is awake, alert, and fully oriented, in no acute distress. LUNGS: Breath sounds equal, clear to auscultation bilaterally, no wheezes, no crackles, no accessory muscle use. HEART: Regular rate and rhythm, S1, S2 without murmur, rub or gallop. ABDOMEN: slightly less tender LUQ; bs+ EXTREMITIES: 2+ pulses, warm, well-perfused, no edema. NEUROLOGICAL: Cranial nerves II through XII grossly intact. Normal speech, gait not observed. PSYCH: Normal mood, normal affect. SKIN: Warm, dry, normal turgor, no rashes or lesions noted Laboratory Results - last 24 hr 09/17/18 09/18/18 09/18/18 08:00 07:00 07:00 WBC 5.0 RBC 3.44 L Hgb 11.4 Hct 33.5 MCV 97.4 H MCH 33.1 MCHC 34.0 RDW 15.0 Plt Count 398 MPV 8.3 PTT (Actin FS) Sodium 138 Potassium 3.5 Chloride 105 Carbon Dioxide 23 Anion Gap 10 BUN 3 L Creatinine 0.5 L Creat Clearance w eGFR > 60 Random Glucose 86 Calcium 8.4 L Phosphorus 3.5 Magnesium 1.5 L Rheumatoid Arth Biomark < 10.0 Monoscreen 09/18/18 09/18/18 07:00 07:00 WBC RBC Hgb Hct MCV MCH MCHC RDW Plt Count MPV PTT (Actin FS) 48.8 H Sodium Potassium Chloride Carbon Dioxide Anion Gap BUN Creatinine Creat Clearance w eGFR Random Glucose Calcium Phosphorus Magnesium Rheumatoid Arth Biomark Monoscreen Negative Active Medications Generic Name Dose Route Start Last Admin Trade Name Freq PRN Reason Stop Dose Admin Acetaminophen 650 mg 09/16/18 20:33 09/18/18 09:56 Tylenol - PO 650 mg Q6H PRN Administration Fever Or Pain Amlodipine Besylate 5 mg 09/16/18 14:15 09/18/18 09:35 Norvasc - PO 5 mg DAILY KRISTYN Administration Heparin Sodium (Porcine) 1,000 unit 09/17/18 10:18 Heparin - IVPUSH PRN PRN Heparin Heparin Sodium (Porcine) 5,000 unit 09/17/18 10:18 09/17/18 15:56 Heparin - IVPUSH 5,000 unit PRN PRN Administration Heparin Famotidine/Sodium Chloride 20 mg in 50 mls @ 100 mls/hr 09/14/18 22:00 09:59 Pepcid 20 Mg Premixed Ivpb - IVPB 100 mls/hr BID KRISTYN Administration Potassium Chloride 10 meq/ 1,005 mls @ 100 mls/hr 09/16/18 17:09 09/18/18 09: 50 Sodium Chloride IVPB Not Given Q10H KRISTYN Ceftriaxone Sodium 2 gm/ 100 mls @ 200 mls/hr 09/17/18 10:00 09/18/18 09:49 Dextrose IVPB Not Given DAILY KRISTYN Protocol Metronidazole 500 mg in 100 mls @ 100 mls/hr 09/16/18 20:15 09/18/18 09:49 Flagyl 500mg Premixed Ivpb - IVPB Not Given Q8H-IV KRISTYN Heparin Sodium/Dextrose 25,000 units in 500 mls @ 16 mls/hr 09/17/18 10:30 11:32 Heparin Infusion - IVPB 900 units/hr TITR KRISTYN 18 mls/hr Administration Protocol 800 UNITS/HR Prochlorperazine Edisylate 5 mg 09/17/18 18:21 09/17/18 20:28 Compazine Injection - IM 5 mg Q6H PRN Administration NAUSEA ASSESSMENT/PLAN: This is a 48 year old female with polysubstance abuse; presenting with gastritis , n,v, abdominal pain and 20wt loss for the past two weeks. Currently being treated for UTI. Found to have lesion on kidneys and splenic infarct on CT. Work up for thrombophilia. Splenic infarct lesions on kidneys b/l UTI cannibus dependance; hyperemisis -work up for thrombophilia in progress -hemoglobin electrophoreisis, nakia, esr, crp, RF, protein c/s antigen and activity, antithrombin III activity/antigen, factor V leiden mutation, prothrombin gene [id number] mutation, lupus anticoagulant, anticardiolipin ab IgA/ IgM, antib2 glycoprotein I ab IgG/IgM, Jak2 mutation -echocardiogram eval for PFO negative; EF >60%; borderline LVH; -dopplers; negative for splenic vein thrombosis -start heparin ggt; due to acuteness of infarct -elevated MCV without anemia; will order b12, folate Visit type - Emergency Visit Emergency Visit: Yes ED Registration Date: 09/15/18 Care time: The patient presented to the Emergency Department on the above date and was hospitalized for further evaluation of their emergent condition. - New Patient This patient is new to me today: No - Critical Care Critical Care patient: No
--- NOTE | 2018-09-18 15:26 | PN ---
Teaching Attending Note Name of Resident: Nalini Farrar ATTENDING PHYSICIAN STATEMENT I saw and evaluated the patient. I reviewed the resident's note and discussed the case with the resident. I agree with the resident's findings and plan as documented. SUBJECTIVE: Vomited last night, feels better today. No N/V. hungry and tolerated oatmeal in am . abd pain is better OBJECTIVE: NAD, awake, alert, cooperative HEENT: MMM, CV: RRR, no MRG Lungs: CTAB Abd: soft, ND, minimal TTP in LUQ. nL BS. Ext : no edema or erythema. dry skin. ASSESSMENT AND PLAN: 48 y/o lady with h/o CVA, hTN, GERD, depression and anxiety, cocaine and marijuana use , who presented with N/V and abd pain. She was found to have splenic infarct and other pathologies. 1- Splenic infarct. unclear etiology. r/o hypercoagulable state Vs p A fib . - cont heparin gtt pending hypercoagulable w/u - Monospot neg, no splenic vein thrombosis. - cont tele monitoring - follow Hb electropheresis and rest of hypercoagulable w/u -patient refused HIV testing - Echo reviewed. - will d/w ID if abx are indicated. if not will dc all abx 2- N/V. due to splenic infarct and possible gastritis. ? cyclic vomiting sx with Marijuana use - improved , advanced diet - UGIS, and esophageogram pending - possible EGD 3- UTI. day 7 of ceftriaxone. 4- R renal cyst. will follow as out pt . 5- Appendix enlargement. no clinical significance per GI. no further w/u . No need for Abx for this 6- HTN : - cont norvasc for now
--- NOTE | 2018-09-18 15:40 | EKG ---
Test Reason : Blood Pressure : / mmHG Vent. Rate : 065 BPM Atrial Rate : 065 BPM P-R Int : 212 ms QRS Dur : 084 ms QT Int : 448 ms P-R-T Axes : 073 083 071 degrees QTc Int : 465 ms SINUS RHYTHM WITH 1ST DEGREE A-V BLOCK OTHERWISE NORMAL ECG WHEN COMPARED WITH ECG OF 14-SEP-2018 16:52, NO SIGNIFICANT CHANGE WAS FOUND Confirmed by GIANFRANCO HENDERSON, MICHAEL ([id number]) on 09/18/2018 3:40:37 PM Referred By: PANTERA ROLDAN Confirmed By:MICHAEL MEDEL MD
[2018-09-18] MEDS ORDERED: POTASSIUM CHLORIDE TABS 20 MEQ TABLET.ER (FP) PO ONE (16:21)
--- NOTE | 2018-09-18 16:21 | PN ---
Progress Note, Physician History of Present Illness: Pt seen and examined at bedside. She is awake and alert. She is not tolerating diet. - Current Medication List Current Medications: Active Medications Acetaminophen (Tylenol -) 650 mg PO Q6H PRN PRN Reason: Fever Or Pain Last Admin: 09/18/18 09:56 Dose: 650 mg Amlodipine Besylate (Norvasc -) 5 mg PO DAILY KRISTYN Last Admin: 09/18/18 09:35 Dose: 5 mg Heparin Sodium (Porcine) (Heparin -) 1,000 unit IVPUSH PRN PRN PRN Reason: Heparin Heparin Sodium (Porcine) (Heparin -) 5,000 unit IVPUSH PRN PRN PRN Reason: Heparin Last Admin: 09/17/18 15:56 Dose: 5,000 unit Famotidine/Sodium Chloride (Pepcid 20 Mg Premixed Ivpb -) 20 mg in 50 mls @ 100 mls/hr IVPB BID KRISTYN Last Admin: 09/18/18 09:59 Dose: 100 mls/hr Potassium Chloride 10 meq/ (Sodium Chloride) 1,005 mls @ 100 mls/hr IVPB Q10H KRISTYN Last Admin: 09/18/18 09:50 Dose: Not Given Ceftriaxone Sodium 2 gm/ (Dextrose) 100 mls @ 200 mls/hr IVPB DAILY KRISTYN; Protocol Last Admin: 09/18/18 09:49 Dose: Not Given Metronidazole (Flagyl 500mg Premixed Ivpb -) 500 mg in 100 mls @ 100 mls/hr IVPB Q8H-IV KRISTYN Last Admin: 09/18/18 09:49 Dose: Not Given Heparin Sodium/Dextrose (Heparin Infusion -) 25,000 units in 500 mls @ 16 mls/ hr IVPB TITR KRISTYN; Protocol Last Admin: 09/18/18 11:32 Dose: 900 units/hr, 18 mls/hr Prochlorperazine Edisylate (Compazine Injection -) 5 mg IM Q6H PRN PRN Reason: NAUSEA Last Admin: 09/17/18 20:28 Dose: 5 mg - Objective Vital Signs: Vital Signs Temperature 98.7 F 09/18/18 13:35 Pulse Rate 78 09/18/18 13:35 Respiratory Rate 16 09/18/18 13:35 Blood Pressure 115/78 09/18/18 13:35 O2 Sat by Pulse Oximetry (%) 100 09/18/18 08:44 Constitutional: Yes: Calm Eyes: Yes: Conjunctiva Clear HENT: Yes: Atraumatic Neck: Yes: Supple Cardiovascular: Yes: S1, S2 Respiratory: Yes: CTA Bilaterally Gastrointestinal: Yes: Soft Genitourinary: Yes: WNL Musculoskeletal: Yes: WNL Edema: No Neurological: Yes: Oriented Psychiatric: Yes: Oriented Labs: CBC, BMP 09/18/18 07:00 09/18/18 07:00 INR, PTT INR 1.13 (0.83-1.09) H 09/17/18 10:10 Problem List - Problems (1) Renal mass Code(s): N28.89 - OTHER SPECIFIED DISORDERS OF KIDNEY AND URETER (2) Hypokalemia Code(s): E87.6 - HYPOKALEMIA (3) Hypertension Code(s): I10 - ESSENTIAL (PRIMARY) HYPERTENSION Qualifiers: Hypertension type: essential hypertension Qualified Code(s): I10 - Essential (primary) hypertension Assessment/Plan Current Medications Generic Name Dose Route Start Last Admin Trade Name Freq PRN Reason Stop Dose Admin Acetaminophen 650 mg 09/16/18 20:33 09/18/18 09:56 Tylenol - PO 650 mg Q6H PRN Administration Fever Or Pain Amlodipine Besylate 5 mg 09/16/18 14:15 09/18/18 09:35 Norvasc - PO 5 mg DAILY KRISTYN Administration Heparin Sodium (Porcine) 1,000 unit 09/17/18 10:18 Heparin - IVPUSH PRN PRN Heparin Heparin Sodium (Porcine) 5,000 unit 09/17/18 10:18 09/17/18 15:56 Heparin - IVPUSH 5,000 unit PRN PRN Administration Heparin Famotidine/Sodium Chloride 20 mg in 50 mls @ 100 mls/hr 09/14/18 22:00 09:59 Pepcid 20 Mg Premixed Ivpb - IVPB 100 mls/hr BID KRISTYN Administration Potassium Chloride 10 meq/ 1,005 mls @ 100 mls/hr 09/16/18 17:09 09/18/18 09: 50 Sodium Chloride IVPB Not Given Q10H KRISTYN Ceftriaxone Sodium 2 gm/ 100 mls @ 200 mls/hr 09/17/18 10:00 09/18/18 09:49 Dextrose IVPB Not Given DAILY KRISTYN Protocol Metronidazole 500 mg in 100 mls @ 100 mls/hr 09/16/18 20:15 09/18/18 09:49 Flagyl 500mg Premixed Ivpb - IVPB Not Given Q8H-IV KRISTYN Heparin Sodium/Dextrose 25,000 units in 500 mls @ 16 mls/hr 09/17/18 10:30 11:32 Heparin Infusion - IVPB 900 units/hr TITR KRISTYN 18 mls/hr Administration Protocol 800 UNITS/HR Prochlorperazine Edisylate 5 mg 09/17/18 18:21 09/17/18 20:28 Compazine Injection - IM 5 mg Q6H PRN Administration NAUSEA Laboratory Tests 09/18/18 07:00 Potassium 3.5 Creatinine 0.5 L Magnesium 1.5 L Impression 1. renal mass 2. htn 3. hypokalemia 4. vomiting 5. substance abuse 6. gerd 7. left renal cyts Plan - replace lytes - will give potassium and mag - can hold off fluids for now - pt now on tele monitor - renal lesion on the ct scan was not visualized on the ultrasound - urology input pending - monitor lyets - can cont fluids Dr Mayorga
[2018-09-18 16:24] LABS: PROTEIN C ACTIVITY 65 % (73-180); PROTEIN S, FREE 112 % (57-157)
[2018-09-18] MEDS ORDERED: MAGNESIUM SULF 50% (8.12 MEQ/2 ML-1 GM VIAL) IVPB ONE (16:30)
--- NOTE | 2018-09-18 17:52 | PN ---
Progress Note (short form) - Note Progress Note: ID CONSULT DICTATED SPLENIC INFARCT AGREE WITH W/U FOR HYPERCOAG STATE/ EMBOLI ECHO NO VEGETATIONS MONOSCREEN NEG NO BC DONE OBTAIN BC OFF ANTIBIOTICS PT DECLINES HIV TESTING
--- NOTE | 2018-09-18 18:23 | CONS ---
DATE OF CONSULTATION: DATE OF DICTATION: 09/18/2018 The patient is a 48-year-old female with a history of polysubstance abuse, history of stroke in 2003, HIV status not known, evaluated for splenic infarct. She was admitted to the hospital on September 14, 2018, with complaints of abdominal pain, nausea, vomiting, anorexia, and 15-20 pound weight loss. CAT scan of the abdomen and pelvis showed a dilated appendix for which she was seen by Surgery and felt not to need surgical intervention. In addition, the CAT scan showed a splenic infarction as well as hypodense renal lesions. Sonogram of the kidneys showed a cyst on the left kidney. She was treated for urinary tract infection with ceftriaxone. At the present time, she reports no abdominal pain. No complaints of nausea or vomiting. She denies any urinary tract symptoms. She has been afebrile with a normal white blood cell count. Patient denies history of intravenous drug use. She states that she tested HIV negative in the past and declines retesting. PAST MEDICAL HISTORY: Positive for stroke, gastroesophageal reflux, hypertension, polysubstance abuse. PAST SURGICAL HISTORY: Status post right knee surgery. ALLERGIES: No known drug allergies. LABORATORY DATA: White count 5.0, hematocrit 33.5, platelet count of 398. Urinalysis shows 3-5 white cells. PHYSICAL EXAMINATION: General: She is awake, thin female. Vital Signs: Temperature 98.7, blood pressure 115/78, pulse 72 and regular, respirations 18 per minute. HEENT: Sclerae anicteric. No conjunctival hemorrhages. Heart Sounds: S1, S2. No murmur. Lungs: Clear. Abdomen: Soft. No tenderness elicited. Extremities: Negative for edema. No splinter hemorrhage is noted. IMPRESSION: Splenic infarction. Agree with workup for hypercoagulable state and embolic phenomenon. Echocardiogram shows no vegetations. I would stop antibiotics and obtain blood cultures off of antibiotics. Patient declines HIV testing. Thank you for the kind referral. GAMAL KU M.D. JOSE [id number]
[2018-09-19] MEDS: amLODIPine BESYLATE 5 MG TABLET (FP) PO SCH (10:09)
[2018-09-19] MEDS: FAMOTIDINE 20 MG/50 ML IVPB 20 MG/50 ML MG IVPB SCH ×2 (10:09→20:59)
[2018-09-19 10:11] LABS: DRVVT - 38.1 sec (0.0-47.0)
--- NOTE | 2018-09-19 10:32 | PN ---
Progress Note, Physician History of Present Illness: LUQ pain, nausea and emesis improving, tolerated breakfast. No PAF on telemetry. - Current Medication List Current Medications: Active Medications Acetaminophen (Tylenol -) 650 mg PO Q6H PRN PRN Reason: Fever Or Pain Last Admin: 09/18/18 18:15 Dose: 650 mg Amlodipine Besylate (Norvasc -) 5 mg PO DAILY [facility] Last Admin: 09/19/18 10:09 Dose: 5 mg Heparin Sodium (Porcine) (Heparin -) 1,000 unit IVPUSH PRN PRN PRN Reason: Heparin Heparin Sodium (Porcine) (Heparin -) 5,000 unit IVPUSH PRN PRN PRN Reason: Heparin Last Admin: 09/17/18 15:56 Dose: 5,000 unit Famotidine/Sodium Chloride (Pepcid 20 Mg Premixed Ivpb -) 20 mg in 50 mls @ 100 mls/hr IVPB BID KRISTYN Last Admin: 09/19/18 10:09 Dose: 100 mls/hr Heparin Sodium/Dextrose (Heparin Infusion -) 25,000 units in 500 mls @ 16 mls/ hr IVPB TITR KRISTYN; Protocol Last Titration: 09/18/18 16:44 Dose: 850 units/hr, 17 mls/hr Potassium Chloride 10 meq/ (Sodium Chloride) 1,005 mls @ 42 mls/hr IVPB Q24H [facility] Last Admin: 09/18/18 16:50 Dose: Not Given Prochlorperazine Edisylate (Compazine Injection -) 5 mg IM Q6H PRN PRN Reason: NAUSEA Last Admin: 09/17/18 20:28 Dose: 5 mg - Objective Vital Signs: Vital Signs Temperature 98.1 F 09/19/18 06:00 Pulse Rate 64 09/19/18 06:00 Respiratory Rate 20 09/19/18 06:00 Blood Pressure 118/70 09/19/18 06:00 O2 Sat by Pulse Oximetry (%) 100 09/18/18 21:00 Constitutional: Yes: No Distress, Calm, Thin Neck: Yes: Supple Cardiovascular: Yes: Regular Rate and Rhythm Respiratory: Yes: Regular, CTA Bilaterally Gastrointestinal: Yes: Soft, Hypoactive Bowel Sounds, Tenderness (LUQ) Edema: No Labs: INR, PTT INR 1.13 (0.83-1.09) H 09/17/18 10:10 - ....Imaging EKG: Report Reviewed (SR 1st deg AVB QTc 465 msec Tele: No PAF) Problem List - Problems (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 (2) Abnormal CT scan, gastrointestinal tract Code(s): R93.3 - ABNORMAL FINDINGS ON DX IMAGING OF PRT DIGESTIVE TRACT (3) Hypertension Code(s): I10 - ESSENTIAL (PRIMARY) HYPERTENSION Qualifiers: Hypertension type: essential hypertension Qualified Code(s): I10 - Essential (primary) hypertension (4) Old cerebrovascular accident (CVA) without late effect Code(s): Z86.73 - PRSNL HX OF TIA (TIA), AND CEREB INFRC W/O RESID DEFICITS Assessment/Plan 09/17/2018 Echo: Normal LV size with borderline cLVH, normal LVEF 60%, normal atrial sizes, mild TN, tr-mild TR, tr MR 1. Splenic infarct. unclear etiology. r/o hypercoagulable state. has h/o stroke- --> r/o paroxysmal A fib. 2. HTN 3. Prolonged QT resolved 4. UTI P:1. Continue heparin gtt->coumadin per INR, f/u thrombophilia w/u 2. Tele monitor w/o PAF thus far 3. Continue Norvasc 5 qd, agree with holding seroquel and QT prolonging agents 4. Completed abx course 5. Clear liquid diet
[2018-09-19 11:30] LABS: ANION GAP 9 MMOL/L (8-16); BLOOD UREA NITROGEN 3 mg/dL (7-18); CALCIUM 8.7 mg/dL (8.5-10.1); CHLORIDE 101 mmol/L (98-107); CO2 23 mmol/L (21-32); CREATININE 0.8 mg/dL (0.55-1.3); GLUCOSE,RANDOM 91 mg/dL (74-106); MAGNESIUM 1.9 mg/dL (1.8-2.4); PHOSPHOROUS 3.5 mg/dL (2.5-4.9); POTASSIUM 3.8 mmol/L (3.5-5.1); SODIUM 134 mmol/L (136-145)
--- NOTE | 2018-09-19 11:36 | PN ---
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 Denies persistent vomiting. UGI noted. No further f/u required.
--- NOTE | 2018-09-19 11:49 | PN ---
Progress Note, Physician History of Present Illness: Pt seen and examined at bedside. SHe is tolerating diet. SHe has been off of fluids. She denies abdominal pain. - Current Medication List Current Medications: Active Medications Acetaminophen (Tylenol -) 650 mg PO Q6H PRN PRN Reason: Fever Or Pain Last Admin: 09/18/18 18:15 Dose: 650 mg Amlodipine Besylate (Norvasc -) 5 mg PO DAILY KRISTYN Last Admin: 09/19/18 10:09 Dose: 5 mg Heparin Sodium (Porcine) (Heparin -) 1,000 unit IVPUSH PRN PRN PRN Reason: Heparin Heparin Sodium (Porcine) (Heparin -) 5,000 unit IVPUSH PRN PRN PRN Reason: Heparin Last Admin: 09/17/18 15:56 Dose: 5,000 unit Famotidine/Sodium Chloride (Pepcid 20 Mg Premixed Ivpb -) 20 mg in 50 mls @ 100 mls/hr IVPB BID KRISTYN Last Admin: 09/19/18 10:09 Dose: 100 mls/hr Heparin Sodium/Dextrose (Heparin Infusion -) 25,000 units in 500 mls @ 16 mls/ hr IVPB TITR KRISTYN; Protocol Last Titration: 09/18/18 16:44 Dose: 850 units/hr, 17 mls/hr Potassium Chloride 10 meq/ (Sodium Chloride) 1,005 mls @ 42 mls/hr IVPB Q24H [facility] Last Admin: 09/18/18 16:50 Dose: Not Given Prochlorperazine Edisylate (Compazine Injection -) 5 mg IM Q6H PRN PRN Reason: NAUSEA Last Admin: 09/17/18 20:28 Dose: 5 mg - Objective Vital Signs: Vital Signs Temperature 97.8 F 09/19/18 10:00 Pulse Rate 64 09/19/18 10:00 Respiratory Rate 20 09/19/18 10:00 Blood Pressure 112/62 09/19/18 10:00 O2 Sat by Pulse Oximetry (%) 100 09/19/18 09:00 Constitutional: Yes: Calm Eyes: Yes: Conjunctiva Clear HENT: Yes: Atraumatic Cardiovascular: Yes: S1, S2 Respiratory: Yes: CTA Bilaterally Gastrointestinal: Yes: Normal Bowel Sounds, Soft Genitourinary: Yes: WNL Musculoskeletal: Yes: WNL Edema: No Neurological: Yes: Oriented Psychiatric: Yes: Oriented Labs: CBC, BMP 09/19/18 10:20 INR, PTT INR 1.13 (0.83-1.09) H 09/17/18 10:10 Problem List - Problems (1) Renal mass Code(s): N28.89 - OTHER SPECIFIED DISORDERS OF KIDNEY AND URETER (2) Hypokalemia Code(s): E87.6 - HYPOKALEMIA (3) Hypertension Code(s): I10 - ESSENTIAL (PRIMARY) HYPERTENSION Qualifiers: Hypertension type: essential hypertension Qualified Code(s): I10 - Essential (primary) hypertension Assessment/Plan Current Medications Generic Name Dose Route Start Last Admin Trade Name Freq PRN Reason Stop Dose Admin Acetaminophen 650 mg 09/16/18 20:33 09/18/18 18:15 Tylenol - PO 650 mg Q6H PRN Administration Fever Or Pain Amlodipine Besylate 5 mg 09/16/18 14:15 09/19/18 10:09 Norvasc - PO 5 mg DAILY KRISTYN Administration Heparin Sodium (Porcine) 1,000 unit 09/17/18 10:18 Heparin - IVPUSH PRN PRN Heparin Heparin Sodium (Porcine) 5,000 unit 09/17/18 10:18 09/17/18 15:56 Heparin - IVPUSH 5,000 unit PRN PRN Administration Heparin Famotidine/Sodium Chloride 20 mg in 50 mls @ 100 mls/hr 09/14/18 22:00 10:09 Pepcid 20 Mg Premixed Ivpb - IVPB 100 mls/hr BID KRISTYN Administration Heparin Sodium/Dextrose 25,000 units in 500 mls @ 16 mls/hr 09/17/18 10:30 16:44 Heparin Infusion - IVPB 850 units/hr TITR KRISTYN 17 mls/hr Titration Protocol 800 UNITS/HR Potassium Chloride 10 meq/ 1,005 mls @ 42 mls/hr 09/18/18 16:22 09/18/18 16: 50 Sodium Chloride IVPB Not Given Q24H KRISTYN Prochlorperazine Edisylate 5 mg 09/17/18 18:21 09/17/18 20:28 Compazine Injection - IM 5 mg Q6H PRN Administration NAUSEA Impression 1. renal mass 2. htn 3. hypokalemia 4. vomiting 5. substance abuse 6. gerd 7. left renal cyts Plan - mag improved - renal function stable - follow urology for lesion on ct scan - pt not on fluids - renal lesion on the ct scan was not visualized on the ultrasound - monitor dorene Mayorga
[2018-09-19 12:13] LABS: HEMATOCRIT 37.5 % (32.4-45.2); HEMOGLOBIN 12.4 GM/dL (10.7-15.3); MCH 32.9 pg (25.7-33.7); MCHC 33.2 g/dl (32.0-36.0); MEAN PLT VOLUME 8.2 fl (7.5-11.1); PLATELET COUNT 361 K/MM3 (134-434); RBC 3.78 M/mm3 (3.60-5.2); RDW 15.4 % (11.6-15.6); WHITE BLOOD COUNT 4.7 K/mm3 (4.0-10.0)
[2018-09-19] MEDS: HEPARIN INFUSION - 25,000 UNITS/500 ML INFUS.BAG IVPB SCH (12:46)
--- NOTE | 2018-09-19 15:56 | PN ---
Physical Exam: SUBJECTIVE: Patient seen and examined at bedside- no acute events overnight; patient is no longer having any abdominal complaints or nausea and was able to tolerate regular diet. patient went for upper GI series this AM- she denies any CP/SOB/N/V OBJECTIVE: Vital Signs Period Temp Pulse Resp BP Sys/Enriquez Pulse Ox Last 24 Hr 97.8 F-99.3 F 64-76 14-20 105-118/62-78 100-100 GENERAL: The patient is awake, alert, and fully oriented, in no acute distress. EYES: PEERLA: no sclerlal icterus NECK: no JVD;no lymphadenopathy LUNGS: CTA B/L; no rales, rhonchi or wheezing. HEART: Regular rate and rhythm, S1, S2 without murmur, rub or gallop. ABDOMEN: Soft, nontender, nondistended, normoactive bowel sounds, no guarding, no rebound, no hepatosplenomegaly, no masses. EXTREMITIES: 2+ pulses, warm, well-perfused, no edema. NEUROLOGICAL: Cranial nerves II through XII grossly intact. Normal speech, gait not observed. PSYCH: Normal mood, normal affect. SKIN: Warm, dry, normal turgor, no rashes or lesions noted Laboratory Results - last 24 hr 09/17/18 09/17/18 09/18/18 08:00 08:00 14:54 WBC RBC Hgb Hct MCV MCH MCHC RDW Plt Count MPV PTT (Actin FS) 79.1 H LA PTT Baseline 47.6 dRVVT Confirm Interp 38.1 Lupus Anticoag Comment Comment: Protein C Activity 65 L Protein S Activity 105 Protein S Antigen 130 Free Protein S 112 Func Antithrombin III 101 Sodium Potassium Chloride Carbon Dioxide Anion Gap BUN Creatinine Creat Clearance w eGFR Random Glucose Calcium Phosphorus Magnesium Vitamin B12 Serum Folate Homocysteine 15.4 H NAOMI Screen Positive H NAOMI Homogeneous Pattern 1:320 H NAOMI Nucleolar Pattern 1:80 NAOMI Spindle [place] Pattern TNP NAOMI Midbody Pattern TNP NAOMI Centriole Pattern TNP NAOMI Nuclear Dot Pattern TNP NAOMI PCNA Pattern TNP NAOMI Nuclear Membr Pat TNP NAOMI Speckled Pattern TNP NAOMI Centromere Pattern TNP Anti-Cardiolipin IgG Ab <9 Anti-Cardiolipin IgA Ab <9 Anti-Cardiolipin IgM Ab <9 09/19/18 09/19/18 09/19/18 10:20 10:20 10:20 WBC 4.7 RBC 3.78 Hgb 12.4 Hct 37.5 MCV 99.0 H MCH 32.9 MCHC 33.2 RDW 15.4 Plt Count 361 MPV 8.2 PTT (Actin FS) 76.7 H LA PTT Baseline dRVVT Confirm Interp Lupus Anticoag Comment Protein C Activity Protein S Activity Protein S Antigen Free Protein S Func Antithrombin III Sodium 134 L Potassium 3.8 Chloride 101 Carbon Dioxide 23 Anion Gap 9 BUN 3 L Creatinine 0.8 Creat Clearance w eGFR > 60 Random Glucose 91 Calcium 8.7 Phosphorus 3.5 Magnesium 1.9 Vitamin B12 744 Serum Folate 15 Homocysteine NAOMI Screen NAOMI Homogeneous Pattern NAOMI Nucleolar Pattern NAOMI Spindle [place] Pattern NAOMI Midbody Pattern NAOMI Centriole Pattern NAOMI Nuclear Dot Pattern NAOMI PCNA Pattern NAOMI Nuclear Membr Pat NAOMI Speckled Pattern NAOMI Centromere Pattern Anti-Cardiolipin IgG Ab Anti-Cardiolipin IgA Ab Anti-Cardiolipin IgM Ab Active Medications Generic Name Dose Route Start Last Admin Trade Name Freq PRN Reason Stop Dose Admin Acetaminophen 650 mg 09/16/18 20:33 09/18/18 18:15 Tylenol - PO 650 mg Q6H PRN Administration Fever Or Pain Amlodipine Besylate 5 mg 09/16/18 14:15 09/19/18 10:09 Norvasc - PO 5 mg DAILY KRISTYN Administration Heparin Sodium (Porcine) 1,000 unit 09/17/18 10:18 Heparin - IVPUSH PRN PRN Heparin Heparin Sodium (Porcine) 5,000 unit 09/17/18 10:18 09/17/18 15:56 Heparin - IVPUSH 5,000 unit PRN PRN Administration Heparin Famotidine/Sodium Chloride 20 mg in 50 mls @ 100 mls/hr 09/14/18 22:00 10:09 Pepcid 20 Mg Premixed Ivpb - IVPB 100 mls/hr BID KRISTYN Administration Heparin Sodium/Dextrose 25,000 units in 500 mls @ 16 mls/hr 09/17/18 10:30 12:46 Heparin Infusion - IVPB 800 units/hr TITR KRISTYN 16 mls/hr Administration Protocol 800 UNITS/HR Potassium Chloride 10 meq/ 1,005 mls @ 42 mls/hr 09/18/18 16:22 09/18/18 16: 50 Sodium Chloride IVPB Not Given Q24H [facility] Prochlorperazine Edisylate 5 mg 09/17/18 18:21 09/17/18 20:28 Compazine Injection - IM 5 mg Q6H PRN Administration NAUSEA ASSESSMENT/PLAN: 48F w/ pmhx of CVA (2002), GERD/gastritis, cocaine/marijuana abuse, HTN, depression presented to the ED with complaints of persistent nausea/vomiting since Saturday #Intractable nausea/vomiting; likely 2/2 Cyclical Vomiting syndrome due to marijuana use vs. viral gastroenteritis, r/o colitis. patient had upper GI series today; no GERD; limited peristalsis ; no ulcers were seen however the gastric mucosa could not be well visualized; -regular diet -NS @ 100 for hydration -Pepcid 20 mg IVPB BID -Compazine PRN for nausea -Avoid QTc prolonging agents #Hypertension; . -patient is on amlodipine 5mg daily #Splenic INfarct splenic infarct seen on ab/pelvis CT; etiology -doppler study shows no evidence of splenic vein thrombosis -monospot negative -heme onc consulted -thrombophilia workup in progress -echo normal -cardio consulted -started on heparin drip 3 days ago- will transition to coumadin 10mg today and f/u INR #UTI -resolved patient completed 7 day course of antibiotic #Hx of Polysubstance abuse (alcohol/cocaine/marijuana) -CIWA ~7 -Pt states she last attempted to drink yesterday, but was unable to tolerate anything PO. Additionally, her last drink prior to yesterday's attempt was over 1 week ago, prior to the onset of her symptoms. Low suspicion for alcohol withdrawal, but will monitor for possible symptoms and consider Librium protocol. -Drug cessation counseling #Prophylaxis heparin drip -Pepcid 20 mg IVPB BID #FEN -NS @ 100 -monitor labs -regular diet as tolerated Problem List - Problems (1) Abnormal CT scan, gastrointestinal tract Code(s): R93.3 - ABNORMAL FINDINGS ON DX IMAGING OF PRT DIGESTIVE TRACT (2) Intractable vomiting with nausea Code(s): R11.2 - NAUSEA WITH VOMITING, UNSPECIFIED Qualifiers: Vomiting type: unspecified Qualified Code(s): R11.2 - Nausea with vomiting , unspecified (3) Hypertension Code(s): I10 - ESSENTIAL (PRIMARY) HYPERTENSION Qualifiers: Hypertension type: essential hypertension Qualified Code(s): I10 - Essential (primary) hypertension Visit type - Emergency Visit Emergency Visit: Yes ED Registration Date: 09/15/18 Care time: The patient presented to the Emergency Department on the above date and was hospitalized for further evaluation of their emergent condition. - New Patient This patient is new to me today: No - Critical Care Critical Care patient: No
--- NOTE | 2018-09-19 16:07 | PN ---
GI Progress Note Subjective: No acute events Left sided abdominal pain improved UGIS revealed dilated stomach with mix of retained barium and food partciles in stomach Prolonged QT resolved per cardiology - Objective Vital Signs: Vital Signs Temperature 99.3 F 09/19/18 13:53 Pulse Rate 76 09/19/18 13:53 Respiratory Rate 14 09/19/18 13:53 Blood Pressure 115/78 09/19/18 13:53 O2 Sat by Pulse Oximetry (%) 100 09/19/18 09:00 Constitutional: Calm Eyes: No: Sclera Icterus Gastrointestinal Inspection: No: Distention ...Auscultate: Yes: Normoactive Bowel Sounds ...Percussion: Yes: Other (Negative succussion splash). No: Tympanitic Edema: No (No LE edema) Neurological: Yes: Alert Labs: CBC, BMP 09/19/18 10:20 09/19/18 10:20 INR, PTT INR 1.13 (0.83-1.09) H 09/17/18 10:10 Problem List - Problems (1) Vomiting Assessment/Plan: UGIS suggests gastric stasis. Likely the cause of vomiting episodes. Gastroparesis (unclear cause. Not on opiates at home or any standing medications for that matter, no history of diabetes and does not give history of recent viral prodrome / illness.. ? Idiopathic) would be high in differential. Given the retained barrium and food, however, the radiologist commented that evaluation of nthe gastric mucosa was limited. To exclude anataomic cause of gastric stasis, as opposed to impaired motility, such as pyloric stenosis/stricturing and alternative pathology in the distal stomach, I recommend upper endoscopy for further intraluminal evaluation prior to initiating predatory animal exterminator oral anticoagulation. I discussed this plan with Ms. Anthony. We discussed potential risks of the procedure like but not limited to bleeding perforation requiring surgery to repair, infection and sedation medication effects all of which could be potentially life threatening. She has agreed to the procedure. Anticoagulation will need to be held prior to the procedure. I am coordinating this with the primary team. I placed her on a clear liquid diet for saturday and made her NPO after midnight for Saturday. In the interim: Can have retinal surgeon evaluation to further discuss with Ms. Anthony re: gastroparesis dietary modifications Continue PPI. Can change to protonix 20mg once daily In terms of medical therapy, this is limited as cardiology would prefer that QT prolonging agents be withheld at this time as QT was prolonged on admission. Reglan can prolong QT. Ms. Anthony is not currently vomiting and seems to be tolerating PO. I would change to low fiber / low fat diet. Await decision re: holding of anticoagulation at this time Advised Ms. Anthony that she should discontinue marijuana use and any other recreational drugs In Terms of the dilated appendix: This will need to be obsereved as an outpatient as well and will need follow-up imaging. If this is a persistent finding, then consideration for diagnosis of appendix mucocele would need to be given and pursuit of further outpatient surgical evaluation would be needed. Code(s): R11.10 - VOMITING, UNSPECIFIED
[2018-09-19 16:22] LABS: HGB SOLUBILITY Negative (Negative); Hgb A 97.6 % (96.4-98.8); Hgb C 0 % (0.0); Hgb F 0 % (0.0-2.0); Hgb S 0 % (0.0)
--- NOTE | 2018-09-19 16:26 | PN ---
Teaching Attending Note Name of Resident: Phong Parker ATTENDING PHYSICIAN STATEMENT I saw and evaluated the patient. I reviewed the resident's note and discussed the case with the resident. I agree with the resident's findings and plan as documented. SUBJECTIVE: no abd pain, no fever or chills. No N/V. tolerated regular diet OBJECTIVE: NAD, awake, alert, cooperative HEENT: MMM, CV: RRR, no MRG Lungs: CTAB Abd: soft, ND, NT. nL BS. Ext : no edema or erythema. dry skin. ASSESSMENT AND PLAN: 48 y/o lady with h/o CVA, hTN, GERD, depression and anxiety, cocaine and marijuana use , who presented with N/V and abd pain. She was found to have splenic infarct and other pathologies. 1- Splenic infarct. unclear etiology. r/o hypercoagulable state Vs p A fib . - cont heparin gtt pending hypercoagulable w/u - choice for nursing home AC is likely to be coumadin as NOACS might not be well studied in this condition. to d/w heme. - give 1st dose of hep A today . immune for Hep B - NAOMI elevated, check Anti Flaherty and dsDNA 2- N/V. due to splenic infarct and possible gastritis. ? cyclic vomiting sx with Marijuana use - GI imaging reviewed. - further d/w heme about possible interruption of AC for ( need to r/o gastric outlet obstruction ) 3- UTI. completed 7 days of Ceftriaxone 4- R renal cyst. will follow as out pt . 5- Appendix enlargement. no clinical significance per GI. 6- HTN : - cont norvasc for now ASSESSMENT AND PLAN:
[2018-09-19] MEDS: POTASSIUM CHLORIDE 10 MEQ in SODIUM CHLORIDE 0.45% 1,000 ML IVPB SCH (16:40)
[2018-09-19] MEDS ORDERED: WARFARIN NA 10 MG TABLET (FP) PO SCH (18:00)
[2018-09-19] MEDS ORDERED: HEPATITIS A VIRUS VACCINE/PF 720 UNIT/0.5 ML VIAL IM ONE (19:30)
[2018-09-19] MEDS: ACETAMINOPHEN 325 MG TABLET (FP) PO PRN (20:17)
--- NOTE | 2018-09-19 20:25 | PN ---
Progress Note (short form) - Note Progress Note: Patient seen and examined LUQ pain rsolved Feels well AFVSS Cor: RSR, No murmurs, No gallops Lungs: Clear to P&A Abd: Soft, Normal bowel sounds, No organomegaly Ext:No significant edema Labs/Meds reviewed A/P 48 y/o patient with nausea, vomiting, alcohol use, marijuana use, LUQ pain, Treated for UTI CT scan showed hypodensity in anterior third of spleen could be infarct. Doppler u/s--patent splenic vasculature. no thrombosis antiphospholipid panel/protein S/ATIII-nl FVL /PT [id number] pending sister with h/o DVT/on blood thinners cardiology f/uon remote h/o afib based on above data will consider MRI to r/o splenic infarct If no evidence on MRI/? MRV/? MRCP will hold off on a/c on heparin for now to r/o infarct discussed with
[2018-09-20] MEDS ORDERED: METOCLOPRAMIDE HCL INJECTION 10 MG/2 ML VIAL IVPB SCH (08:00)
[2018-09-20 08:01] LABS: HEMATOCRIT 33.6 % (32.4-45.2); HEMOGLOBIN 11.4 GM/dL (10.7-15.3); MCH 33.3 pg (25.7-33.7); MEAN PLT VOLUME 8.4 fl (7.5-11.1); PLATELET COUNT 407 K/MM3 (134-434); RBC 3.43 M/mm3 (3.60-5.2); RDW 15.4 % (11.6-15.6); WHITE BLOOD COUNT 4.1 K/mm3 (4.0-10.0)
[2018-09-20 08:42] LABS: ANION GAP 5 MMOL/L (8-16); BLOOD UREA NITROGEN 4 mg/dL (7-18); CALCIUM 8.8 mg/dL (8.5-10.1); CHLORIDE 104 mmol/L (98-107); CO2 27 mmol/L (21-32); CREATININE 0.6 mg/dL (0.55-1.3); GLUCOSE,RANDOM 79 mg/dL (74-106); MAGNESIUM 2.1 mg/dL (1.8-2.4); PHOSPHOROUS 4.9 mg/dL (2.5-4.9); SODIUM 136 mmol/L (136-145)
[2018-09-20 08:45] LABS: INR 1.07 (0.83-1.09); PROTHROMBIN TIME (PATIENT) 12.6 SEC (9.7-13.0)
[2018-09-20] MEDS: FAMOTIDINE 20 MG/50 ML IVPB 20 MG/50 ML MG IVPB SCH (10:13)
[2018-09-20] MEDS: amLODIPine BESYLATE 5 MG TABLET (FP) PO SCH (10:13)
[2018-09-20] MEDS: HEPARIN INFUSION - 25,000 UNITS/500 ML INFUS.BAG IVPB SCH (10:14)
[2018-09-20] MEDS: ACETAMINOPHEN 325 MG TABLET (FP) PO PRN (10:17)
--- NOTE | 2018-09-20 10:46 | PN ---
Progress Note, Physician Chief Complaint: Events noted Not in distress History of Present Illness: Patient was seen and examined. Awake and alert. Chart was reviewed. Denies chest pain, SOB or palpitations. Episode of secondary AV block - Mobitz 1 (Wenchebach), others appear to be artifacts on the successfactors consultant - Current Medication List Current Medications: Active Medications Acetaminophen (Tylenol -) 650 mg PO Q6H PRN PRN Reason: Fever Or Pain Last Admin: 09/20/18 10:17 Dose: 650 mg Amlodipine Besylate (Norvasc -) 5 mg PO DAILY [facility] Last Admin: 09/20/18 10:13 Dose: 5 mg Heparin Sodium (Porcine) (Heparin -) 1,000 unit IVPUSH PRN PRN PRN Reason: Heparin Heparin Sodium (Porcine) (Heparin -) 5,000 unit IVPUSH PRN PRN PRN Reason: Heparin Last Admin: 09/17/18 15:56 Dose: 5,000 unit Famotidine/Sodium Chloride (Pepcid 20 Mg Premixed Ivpb -) 20 mg in 50 mls @ 100 mls/hr IVPB BID KRISTYN Last Admin: 09/20/18 10:13 Dose: 100 mls/hr Heparin Sodium/Dextrose (Heparin Infusion -) 25,000 units in 500 mls @ 16 mls/ hr IVPB TITR KRISTYN; Protocol Last Admin: 09/20/18 10:14 Dose: 800 units/hr, 16 mls/hr Potassium Chloride 10 meq/ (Sodium Chloride) 1,005 mls @ 42 mls/hr IVPB Q24H KRISTYN Last Admin: 09/19/18 16:40 Dose: Not Given Dextrose/Sodium Chloride (D5-Ns -) 1,000 mls @ 83 mls/hr IV ASDIR KRISTYN - Objective Vital Signs: Vital Signs Temperature 98.3 F 09/20/18 02:00 Pulse Rate 68 09/20/18 02:00 Respiratory Rate 20 09/20/18 02:00 Blood Pressure 132/89 09/20/18 02:00 O2 Sat by Pulse Oximetry (%) 100 09/19/18 21:00 Eyes: Yes: PERRL HENT: Yes: Atraumatic Neck: Yes: Supple Cardiovascular: Yes: Regular Rate and Rhythm, S1, S2 Respiratory: Yes: CTA Bilaterally Gastrointestinal: Yes: Normal Bowel Sounds, Soft, Other (? mild distention). No : Tenderness Edema: No Additional Findings/Remarks: - Review of Systems Constitutional: denies: Chills, Fever Cardiovascular: denies: Chest Pain, Palpitations, Shortness of Breath Respiratory: denies: Cough, Hemoptysis, Orthopnea, PND, SOB, SOB on Exertion Gastrointestinal: denies: Abdominal Pain, Constipation, Diarrhea, Melena, Nausea , Rectal Bleeding, Vomiting Musculoskeletal: denies: Joint Pain Neurological: denies: Dizziness, Headache, Seizure, Syncope Labs: CBC, BMP 09/20/18 06:30 09/20/18 06:30 INR, PTT INR 1.07 (0.83-1.09) 09/20/18 06:30 Problem List - Problems (1) Prolonged QT interval Code(s): R94.31 - ABNORMAL ELECTROCARDIOGRAM [ECG] [EKG] (2) 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 Splenic infarct. unclear etiology. Rule out hypercoagulable state. Rule out PAF 2. HTN 3. Prolonged QT resolved + episode of Mobitz 1 [place]enchbach 4. UTI PLAN: 1. Continue heparin drip and Coumadin per INR 2. combination presser (No AF so far on the monitor, but showed Mobitz 1) 3. Continue Norvasc 5 mg QD 4. Hold QT prolonging agents Continue present therapy Junior Manning MD
--- NOTE | 2018-09-20 12:07 | PN ---
Teaching Attending Note Name of Resident: Emre Etienne ATTENDING PHYSICIAN STATEMENT I saw and evaluated the patient. I reviewed the resident's note and discussed the case with the resident. I agree with the resident's findings and plan as documented. SUBJECTIVE: no N/V , tolerated det. No JEONG , no Abd pain. one soft yellow BM yesterday OBJECTIVE: NAD, awake, alert, cooperative HEENT: MMM, CV: RRR, no MRG Lungs: CTAB Abd: LLQ tenderness , no rebound tenderness or guarding Ext : no edema or erythema. dry skin. ASSESSMENT AND PLAN: 48 y/o lady with h/o CVA, hTN, GERD, depression and anxiety, cocaine and marijuana use , who presented with N/V and abd pain. She was found to have splenic infarct and other pathologies. 1- Splenic infarct. patient now says she has a history of A fib diagnosed long time ago, and was not put on AC - tele reviewed, one episode of Mobitz I. - cont heparin gtt - follow hypercoagulable w/u - follow Flaherty Abx and Ds Abs as has elevated NAOMI - will d/w Id if meningiococcal and pneumococcal are indictaed in her case. 2- N/V. due to splenic infarct and possible gastritis. ? cyclic vomiting sx with Marijuana use - for EGD on Saturday. will hold heparin at 9 am on Saturday 3- UTI. completed 7 days of Ceftriaxone 4- R renal cyst. will follow as out pt . 5- Appendix enlargement. no clinical significance per GI. 6- HTN : - cont norvasc for now 7- not immune to Hep A, will give first dose of vaccine
--- NOTE | 2018-09-20 12:33 | PN ---
Physical Exam: SUBJECTIVE: Patient seen and examined at bedside. Feels well, tolerating diet, no nausea or vomiting. Denies abd pain, fevers, chills, CP, SOB. Stools are still loose but are becoming more formed progressively. No blood in stool. She reports being diagnosed with afib "long in the past". Spoke to pt about getting hepatitis A vaccine but she is strongly refusing as she only wants needles for what is medically necessary for this admission and her current symptoms. She will reconsider though before being discharged. OBJECTIVE: Vital Signs Temperature 98.0 F 09/20/18 10:00 Pulse Rate 70 09/20/18 10:00 Respiratory Rate 20 09/20/18 10:00 Blood Pressure 103/70 09/20/18 10:00 O2 Sat by Pulse Oximetry (%) 98 09/20/18 10:00 GENERAL: The patient is awake, alert, and fully oriented, in no acute distress. EYES: extraocular movements intact, sclera anicteric, conjunctiva clear. ENT: Ears normal, nares patent NECK: Trachea midline, full range of motion, supple. LUNGS: Breath sounds equal, clear to auscultation bilaterally, no wheezes, no crackles, no accessory muscle use. HEART: Regular rate and rhythm, S1, S2 ABDOMEN: Soft, nontender, nondistended, normoactive bowel sounds EXTREMITIES: warm, well-perfused, no edema. NEUROLOGICAL: Cranial nerves II through XII grossly intact. Normal speech, gait not observed. PSYCH: Normal mood, normal affect. SKIN: Warm, dry Laboratory Results - last 24 hr 09/17/18 09/18/18 09/19/18 08:00 07:00 10:20 WBC RBC Hgb Hct MCV MCH MCHC RDW Plt Count MPV Hemoglobin A 97.6 Hemoglobin A2 2.4 Hemoglobin C 0 Hemoglobin S 0 Variant Hemoglobin 0.0 Hemoglobin Interpret Maternal Rh 0 Hemoglobin Solubility Negative PT with INR INR PTT (Actin FS) Sodium 134 L Potassium 3.8 Chloride 101 Carbon Dioxide 23 Anion Gap 9 BUN 3 L Creatinine 0.8 Creat Clearance w eGFR > 60 Random Glucose 91 Calcium 8.7 Phosphorus 3.5 Magnesium 1.9 Guke-5-Ilqruxukrmea 35 H Vitamin B12 744 Serum Folate 15 Obkz-9-Nasrlsaerjab Ab <9 Beta-2-GPI IgM Ab <9 09/20/18 09/20/18 09/20/18 06:30 06:30 06:30 WBC 4.1 RBC 3.43 L Hgb 11.4 Hct 33.6 MCV 98.0 H MCH 33.3 MCHC 34.0 RDW 15.4 Plt Count 407 MPV 8.4 Hemoglobin A Hemoglobin A2 Hemoglobin C Hemoglobin S Variant Hemoglobin Hemoglobin Interpret Maternal Rh Hemoglobin Solubility PT with INR INR PTT (Actin FS) 72.5 H Sodium 136 Potassium 4.0 Chloride 104 Carbon Dioxide 27 Anion Gap 5 L BUN 4 L Creatinine 0.6 Creat Clearance w eGFR > 60 Random Glucose 79 Calcium 8.8 Phosphorus 4.9 Magnesium 2.1 Egma-6-Naxmfmnwehwz Vitamin B12 Serum Folate Mqau-3-Jxgaymacuxrg Ab Beta-2-GPI IgM Ab 09/20/18 06:30 WBC RBC Hgb Hct MCV MCH MCHC RDW Plt Count MPV Hemoglobin A Hemoglobin A2 Hemoglobin C Hemoglobin S Variant Hemoglobin Hemoglobin Interpret Maternal Rh Hemoglobin Solubility PT with INR 12.60 INR 1.07 PTT (Actin FS) Sodium Potassium Chloride Carbon Dioxide Anion Gap BUN Creatinine Creat Clearance w eGFR Random Glucose Calcium Phosphorus Magnesium Effc-3-Yweivvvdjcot Vitamin B12 Serum Folate Jmjd-1-Jxtjkowmdxgf Ab Beta-2-GPI IgM Ab Active Medications Generic Name Dose Route Start Last Admin Trade Name Freq PRN Reason Stop Dose Admin Acetaminophen 650 mg 09/16/18 20:33 09/20/18 10:17 Tylenol - PO 650 mg Q6H PRN Administration Fever Or Pain Amlodipine Besylate 5 mg 09/16/18 14:15 09/20/18 10:13 Norvasc - PO 5 mg DAILY [facility] Administration Heparin Sodium (Porcine) 1,000 unit 09/17/18 10:18 Heparin - IVPUSH PRN PRN Heparin Heparin Sodium (Porcine) 5,000 unit 09/17/18 10:18 09/17/18 15:56 Heparin - IVPUSH 5,000 unit PRN PRN Administration Heparin Heparin Sodium/Dextrose 25,000 units in 500 mls @ 16 mls/hr 09/17/18 10:30 10:14 Heparin Infusion - IVPB 800 units/hr TITR KRISTYN 16 mls/hr Administration Protocol 800 UNITS/HR Potassium Chloride 10 meq/ 1,005 mls @ 42 mls/hr 09/18/18 16:22 09/19/18 16: 40 Sodium Chloride IVPB Not Given Q24H [facility] Dextrose/Sodium Chloride 1,000 mls @ 83 mls/hr 09/22/18 00:01 D5-Ns - IV ASDIR KRISTYN Pantoprazole Sodium 20 mg 09/21/18 10:00 Protonix - PO DAILY [facility] ASSESSMENT/PLAN: 48 y/o F w/PMH of CVA, Afib, GERD/gastritis, cocaine and marijuana abuse, HTN, depression presented to ER with N/V and admitted for intractable N/V and found to have splenic infarct. -N/V secondary to gastroparesis vs cyclical vomiting syndrome from marijuana use vs Splenic infarct -On heparin drip, will need to transition to PO. Pt would like to be on NOAC if possible -GI on board -Pepcid 20 mg bid changed to protonix 20 mg qd -Low fat/low fiber diet -EGD scheduled for Saturday -Thrombophilia w/u pending -MRI w/ and w/o gadolinium of abdomen ordered for further imaging of splenic infarct -Tolerating diet well currently -Hx of afib -currently on heparin drip -pt unable to give exact history but states she was diagnosed at [facility] over 10 years ago and was not started on any blood thinners then and she did not have any outpatient follow up regarding the afib. -Mobitz type 1 heart block -will continue to monitor -Hx of polysubstance abuse -no current signs of withdrawal -HTN -c/w norvasc 5 mg -DVT ppx -on heparin drip -GI ppx -protonix 20mg qd -FEN -D5NS @ 83ml/hr -Monitor electrolytes -Low fat/low fiber diet -Dispo: Continue to monitor on tele Visit type - Emergency Visit Emergency Visit: Yes ED Registration Date: 09/15/18 Care time: The patient presented to the Emergency Department on the above date and was hospitalized for further evaluation of their emergent condition. - New Patient This patient is new to me today: Yes Date on this admission: 09/20/18 - Critical Care Critical Care patient: No
[2018-09-20 15:12] LABS: PROTEIN S FREE 95 % (57-157)
--- NOTE | 2018-09-20 16:59 | PN ---
Progress Note (short form) - Note Progress Note: covering dr perkins problem 1. renal mass 2. htn 3. hypokalemia 4. vomiting 5. substance abuse 6. gerd 7. left renal cyts Current Medications Acetaminophen (Tylenol -) 650 mg PO Q6H PRN PRN Reason: Fever Or Pain Last Admin: 09/20/18 10:17 Dose: 650 mg Amlodipine Besylate (Norvasc -) 5 mg PO DAILY KRISTYN Last Admin: 09/20/18 10:13 Dose: 5 mg Heparin Sodium (Porcine) (Heparin -) 1,000 unit IVPUSH PRN PRN PRN Reason: Heparin Heparin Sodium (Porcine) (Heparin -) 5,000 unit IVPUSH PRN PRN PRN Reason: Heparin Last Admin: 09/17/18 15:56 Dose: 5,000 unit Heparin Sodium/Dextrose (Heparin Infusion -) 25,000 units in 500 mls @ 16 mls/ hr IVPB TITR KRISTYN; Protocol Last Admin: 09/20/18 10:14 Dose: 800 units/hr, 16 mls/hr Potassium Chloride 10 meq/ (Sodium Chloride) 1,005 mls @ 42 mls/hr IVPB Q24H KRISTYN Last Admin: 09/19/18 16:40 Dose: Not Given Dextrose/Sodium Chloride (D5-Ns -) 1,000 mls @ 83 mls/hr IV ASDIR KRISTYN Pantoprazole Sodium (Protonix -) 20 mg PO DAILY KRISTYN Last Vital Signs Temp Pulse Resp BP Pulse Ox 98.3 F 76 18 101/66 98 09/20/18 15:07 09/20/18 15:07 09/20/18 15:07 09/20/18 15:07 09/20/18 10:00 CBC, BMP 09/20/18 06:30 09/20/18 06:30 s/p electrolyte disorder and vomiting resolved Plan - mag improved - renal function stable - follow urology for lesion on ct scan - pt not on fluids - renal lesion on the ct scan was not visualized on the ultrasound - monitor chelly
[2018-09-20] MEDS: POTASSIUM CHLORIDE 10 MEQ in SODIUM CHLORIDE 0.45% 1,000 ML IVPB SCH (17:29)
[2018-09-21] MEDS: ACETAMINOPHEN 325 MG TABLET (FP) PO PRN ×3 (02:56→20:02)
[2018-09-21 07:49] LABS: HEMATOCRIT 34.8 % (32.4-45.2); HEMOGLOBIN 11.7 GM/dL (10.7-15.3); MCH 33.3 pg (25.7-33.7); MCHC 33.6 g/dl (32.0-36.0); MEAN CELL VOLUME 99.1 fl (80-96); MEAN PLT VOLUME 8.3 fl (7.5-11.1); PLATELET COUNT 402 K/MM3 (134-434); RBC 3.51 M/mm3 (3.60-5.2); RDW 15.6 % (11.6-15.6); WHITE BLOOD COUNT 4.8 K/mm3 (4.0-10.0)
[2018-09-21 08:13] LABS: ALBUMIN 2.9 g/dl (3.4-5.0); ANION GAP 6 MMOL/L (8-16); BLOOD UREA NITROGEN 8 mg/dL (7-18); CALCIUM 8.9 mg/dL (8.5-10.1); CHLORIDE 104 mmol/L (98-107); CO2 28 mmol/L (21-32); CREATININE 0.6 mg/dL (0.55-1.3); GLUCOSE,RANDOM 78 mg/dL (74-106); POTASSIUM 4.2 mmol/L (3.5-5.1); SODIUM 138 mmol/L (136-145)
[2018-09-21] MEDS: PANTOPRAZOLE 20 MG TABLET (FP) PO SCH (09:16)
[2018-09-21] MEDS: amLODIPine BESYLATE 5 MG TABLET (FP) PO SCH (09:16)
[2018-09-21] MEDS: HEPARIN INFUSION - 25,000 UNITS/500 ML INFUS.BAG IVPB SCH (09:32)
--- NOTE | 2018-09-21 09:50 | PN ---
Progress Note, Physician Chief Complaint: Events noted Not in distress History of Present Illness: Patient was seen and examined. Awake and alert. Chart was reviewed. Denies chest pain, SOB or palpitations. Await GI evaluation - Current Medication List Current Medications: Active Medications Acetaminophen (Tylenol -) 650 mg PO Q6H PRN PRN Reason: Fever Or Pain Last Admin: 09/21/18 09:18 Dose: 650 mg Amlodipine Besylate (Norvasc -) 5 mg PO DAILY [facility] Last Admin: 09/21/18 09:16 Dose: 5 mg Heparin Sodium (Porcine) (Heparin -) 1,000 unit IVPUSH PRN PRN PRN Reason: Heparin Heparin Sodium (Porcine) (Heparin -) 5,000 unit IVPUSH PRN PRN PRN Reason: Heparin Last Admin: 09/17/18 15:56 Dose: 5,000 unit Heparin Sodium/Dextrose (Heparin Infusion -) 25,000 units in 500 mls @ 16 mls/ hr IVPB TITR [facility]; Protocol Last Titration: 09/21/18 02:16 Dose: 800 units/hr, 16 mls/hr Potassium Chloride 10 meq/ (Sodium Chloride) 1,005 mls @ 42 mls/hr IVPB Q24H [facility] Last Admin: 09/20/18 17:29 Dose: Not Given Dextrose/Sodium Chloride (D5-Ns -) 1,000 mls @ 83 mls/hr IV ASDIR [facility] Pantoprazole Sodium (Protonix -) 20 mg PO DAILY [facility] Last Admin: 09/21/18 09:16 Dose: 20 mg - Objective Vital Signs: Vital Signs Temperature 97.9 F 09/21/18 02:00 Pulse Rate 64 09/21/18 02:00 Respiratory Rate 20 09/21/18 02:00 Blood Pressure 117/76 09/21/18 02:00 O2 Sat by Pulse Oximetry (%) 100 09/20/18 21:00 Eyes: Yes: PERRL HENT: Yes: Atraumatic Neck: Yes: Supple Cardiovascular: Yes: Regular Rate and Rhythm, S1, S2 Respiratory: Yes: CTA Bilaterally Gastrointestinal: Yes: Normal Bowel Sounds. No: Tenderness Edema: No Additional Findings/Remarks: - Review of Systems Constitutional: denies: Chills, Fever Cardiovascular: denies: Chest Pain, Palpitations, Shortness of Breath Respiratory: denies: Cough, Hemoptysis, Orthopnea, PND, SOB, SOB on Exertion Gastrointestinal: denies: Abdominal Pain, Constipation, Diarrhea, Melena, Nausea , Rectal Bleeding, Vomiting Musculoskeletal: denies: Joint Pain Neurological: denies: Dizziness, Headache, Seizure, Syncope Labs: CBC, BMP 09/21/18 06:00 09/21/18 06:00 INR, PTT INR 1.07 (0.83-1.09) 09/20/18 06:30 Problem List - Problems (1) Prolonged QT interval Code(s): R94.31 - ABNORMAL ELECTROCARDIOGRAM [ECG] [EKG] (2) 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 Splenic infarct. unclear etiology. Rule out hypercoagulable state. Rule out PAF 2. HTN 3. Prolonged QT resolved + episode of Mobitz 1 Wenchebach 4. UTI PLAN: 1. Continue heparin drip and Coumadin per INR eventually. Heparin is to be held prior to GI work up and Coumadin can be started afterwards when cleared 2. athletic monitor (No AF so far on the monitor, but showed Mobitz 1) 3. Continue Norvasc 5 mg QD 4. Hold QT prolonging agents Continue present therapy Junior Manning MD
--- NOTE | 2018-09-21 13:49 | PN ---
Progress Note (short form) - Note Progress Note: Subjective: No fever or chills . no abd pain, no N/V. upset as she is on liquid diet. Objective: Vital Signs: Last Vital Signs Temp Pulse Resp BP Pulse Ox 98.2 F 62 20 108/72 100 09/21/18 10:00 09/21/18 10:00 09/21/18 10:00 09/21/18 10:00 09/21/18 10:00 Laboratory Results - last 24 hr 09/18/18 09/18/18 09/21/18 07:00 07:00 01:20 WBC RBC Hgb Hct MCV MCH MCHC RDW Plt Count MPV PTT (Actin FS) 63.9 H Protein C Antigen 62.0 Functional Protein S 91 Free Protein S 95 Total Protein S 93 Sodium Potassium Chloride Carbon Dioxide Anion Gap BUN Creatinine Creat Clearance w eGFR Random Glucose Calcium Albumin 09/21/18 09/21/18 09/21/18 06:00 06:00 06:00 WBC 4.8 RBC 3.51 L Hgb 11.7 Hct 34.8 MCV 99.1 H MCH 33.3 MCHC 33.6 RDW 15.6 Plt Count 402 MPV 8.3 PTT (Actin FS) 75.8 H Protein C Antigen Functional Protein S Free Protein S Total Protein S Sodium 138 Potassium 4.2 Chloride 104 Carbon Dioxide 28 Anion Gap 6 L BUN 8 Creatinine 0.6 Creat Clearance w eGFR > 60 Random Glucose 78 Calcium 8.9 Albumin 2.9 L Physical Exam: NAD, awake, alert, cooperative HEENT: MMM, CV: RRR, no MRG Lungs: CTAB Abd: NT, ND , NL BS Ext : no edema or erythema. dry skin. ASSESSMENT AND PLAN: 48 y/o lady with h/o CVA, hTN, GERD, depression and anxiety, cocaine and marijuana use , who presented with N/V and abd pain. She was found to have splenic infarct and other pathologies. 1- Possible Splenic infarct. - D/w Dr. Adame, and MRI was done due to the uncertain CT scan findings of infarct. read is pending - cont heparin gtt - hypercoagulable w/u : Protein C, S, W-4-nadsmpedbigh and anticardiolipin: Neg , follow rest of labs - follow Flaherty Abx and Ds Abs as has elevated NAOMI - D/W ID: meningiococcal and pneumococcal are Not indictaed in her case. - Now patient reports remote hx of diagnosis of A fib. 2- N/V. - for EGD tomorrow . will hold heparin at 9 am. - NPO after mid night 3- UTI. completed 7 days of Ceftriaxone 4- R renal cyst. will follow as out pt with uro . 5- Appendix enlargement. follow up with repeat imaging as out pt . then if persistent then surgical evaluation 6- HTN : - cont norvasc for now 7- ? history of A fib , per patient . anu try to obtain records form [facility] ( 10 yrs ago) 8- declined Hep A immunization HLOC Visit type - Emergency Visit Emergency Visit: Yes ED Registration Date: 09/15/18 Care time: The patient presented to the Emergency Department on the above date and was hospitalized for further evaluation of their emergent condition. - New Patient This patient is new to me today: No - Critical Care Critical Care patient: No
[2018-09-21] MEDS: POTASSIUM CHLORIDE 10 MEQ in SODIUM CHLORIDE 0.45% 1,000 ML IVPB SCH (17:33)
--- NOTE | 2018-09-21 22:21 | PN ---
Progress Note (short form) - Note Progress Note: covering dr perkins problem 1. renal mass 2. htn 3. hypokalemia 4. vomiting 5. substance abuse 6. gerd 7. left renal cyts Current Medications Acetaminophen (Tylenol -) 650 mg PO Q6H PRN PRN Reason: Fever Or Pain Last Admin: 09/21/18 20:02 Dose: 650 mg Amlodipine Besylate (Norvasc -) 5 mg PO DAILY [facility] Last Admin: 09/21/18 09:16 Dose: 5 mg Heparin Sodium (Porcine) (Heparin -) 1,000 unit IVPUSH PRN PRN PRN Reason: Heparin Heparin Sodium (Porcine) (Heparin -) 5,000 unit IVPUSH PRN PRN PRN Reason: Heparin Last Admin: 09/17/18 15:56 Dose: 5,000 unit Heparin Sodium/Dextrose (Heparin Infusion -) 25,000 units in 500 mls @ 16 mls/ hr IVPB TITR [facility]; Protocol Last Admin: 09/21/18 09:32 Dose: 800 units/hr, 16 mls/hr Potassium Chloride 10 meq/ (Sodium Chloride) 1,005 mls @ 42 mls/hr IVPB Q24H [facility] Last Admin: 09/21/18 17:33 Dose: Not Given Dextrose/Sodium Chloride (D5-Ns -) 1,000 mls @ 83 mls/hr IV ASDIR [facility] Pantoprazole Sodium (Protonix -) 20 mg PO DAILY [facility] Last Admin: 09/21/18 09:16 Dose: 20 mg Last Vital Signs Temp Pulse Resp BP Pulse Ox 99.6 F 69 18 116/79 100 09/21/18 18:00 09/21/18 18:00 09/21/18 18:00 09/21/18 18:00 09/21/18 10:00 alert in nad lungs clear heart reg abd soft ext no edema CBC, BMP 09/21/18 06:00 09/21/18 06:00 CBC, BMP 09/20/18 06:30 09/20/18 06:30 s/p electrolyte disorder and vomiting resolved labs [facility] Plan - mag improved - renal function stable - follow urology for lesion on ct scan - pt not on fluids - renal lesion on the ct scan was not visualized on the ultrasound - monitor lytes will sign off today
[2018-09-22] MEDS ORDERED: DEXTROSE 5%-NORMAL SALINE 1,000 ML IV SCH (00:01)
[2018-09-22 00:08] LABS: PROTEIN C ACTIVITY 74 % (73-180); PROTEIN S, FREE 77 % (57-157)
[2018-09-22 07:57] LABS: HEMATOCRIT 34.2 % (32.4-45.2); HEMOGLOBIN 11.9 GM/dL (10.7-15.3); MCH 34.4 pg (25.7-33.7); MCHC 34.6 g/dl (32.0-36.0); MEAN CELL VOLUME 99.3 fl (80-96); MEAN PLT VOLUME 8.9 fl (7.5-11.1); PLATELET COUNT 410 K/MM3 (134-434); RBC 3.45 M/mm3 (3.60-5.2); RDW 15.6 % (11.6-15.6); WHITE BLOOD COUNT 3.7 K/mm3 (4.0-10.0)
--- NOTE | 2018-09-22 08:28 | PN ---
Physical Exam: SUBJECTIVE: Patient seen and examined at bedside- no acute events overnight; patient does not want to be in the hospital much longer- patient going for EGD today OBJECTIVE: Vital Signs Period Temp Pulse Resp BP Sys/Enriquez Pulse Ox Last 24 Hr 97.8 F-99.6 F 62-77 18-20 108-125/72-87 100-100 GENERAL: The patient is awake, alert, and fully oriented, in no acute distress.. EYES: PEERLA; EOMI; no scleral icterus. . NECK: no JVD; no lymphadenopathy. LUNGS: CTA B/L; no rales, rhonchi or wheezing HEART: Regular rate and rhythm, S1, S2 without murmur, rub or gallop. ABDOMEN: Soft, nontender, nondistended, normoactive bowel sounds, no guarding, no rebound, no hepatosplenomegaly, no masses. EXTREMITIES: 2+ pulses, warm, well-perfused, no edema. NEUROLOGICAL: Cranial nerves II through XII grossly intact. Normal speech, gait not observed. PSYCH: Normal mood, normal affect. SKIN: Warm, dry, normal turgor, no rashes or lesions noted Laboratory Results - last 24 hr 09/18/18 09/22/18 07:00 06:15 WBC 3.7 L RBC 3.45 L Hgb 11.9 Hct 34.2 MCV 99.3 H MCH 34.4 H MCHC 34.6 RDW 15.6 Plt Count 410 MPV 8.9 Protein C Activity 74 Protein S Antigen 97 Free Protein S 77 Func Antithrombin III 94 Active Medications Generic Name Dose Route Start Last Admin Trade Name Jeysonq PRN Reason Stop Dose Admin Acetaminophen 650 mg 09/16/18 20:33 09/21/18 20:02 Tylenol - PO 650 mg Q6H PRN Administration Fever Or Pain Amlodipine Besylate 5 mg 09/16/18 14:15 09/21/18 09:16 Norvasc - PO 5 mg DAILY [facility] Administration Heparin Sodium (Porcine) 1,000 unit 09/17/18 10:18 Heparin - IVPUSH PRN PRN Heparin Heparin Sodium (Porcine) 5,000 unit 09/17/18 10:18 09/17/18 15:56 Heparin - IVPUSH 5,000 unit PRN PRN Administration Heparin Heparin Sodium/Dextrose 25,000 units in 500 mls @ 16 mls/hr 09/17/18 10:30 09:32 Heparin Infusion - IVPB 800 units/hr TITR [facility] 16 mls/hr Administration Protocol 800 UNITS/HR Potassium Chloride 10 meq/ 1,005 mls @ 42 mls/hr 09/18/18 16:22 09/21/18 17: 33 Sodium Chloride IVPB Not Given Q24H [facility] Dextrose/Sodium Chloride 1,000 mls @ 83 mls/hr 09/22/18 00:01 D5-Ns - IV ASDIR [facility] Pantoprazole Sodium 20 mg 09/21/18 10:00 09/21/18 09:16 Protonix - PO 20 mg DAILY [facility] Administration ASSESSMENT/PLAN: 48F w/ pmhx of CVA (2002), GERD/gastritis, cocaine/marijuana abuse, HTN, depression presented to the ED with complaints of persistent nausea/vomiting since Saturday #Intractable nausea/vomiting; likely 2/2 Cyclical Vomiting syndrome due to marijuana use vs. viral gastroenteritis, r/o colitis. patient going for EGD this morning -regular diet -NS @ 100 for hydration -Pepcid 20 mg IVPB BID -Compazine PRN for nausea -Avoid QTc prolonging agents #Hypertension; . -patient is on amlodipine 5mg daily #Splenic INfarct splenic infarct seen on ab/pelvis CT; etiology -doppler study shows no evidence of splenic vein thrombosis -monospot negative -heme onc consulted -thrombophilia workup in progress -echo normal -cardio consulted -started on heparin drip 3 days ago- will transition to coumadin 10mg today and f/u INR -abdomen MRI to see the exact location of infarct; final read shows chronic infarct #UTI -resolved patient completed 7 day course of antibiotic #Hx of Polysubstance abuse (alcohol/cocaine/marijuana) -CIWA ~7 -Pt states she last attempted to drink yesterday, but was unable to tolerate anything PO. Additionally, her last drink prior to yesterday's attempt was over 1 week ago, prior to the onset of her symptoms. Low suspicion for alcohol withdrawal, but will monitor for possible symptoms and consider Librium protocol. -Drug cessation counseling #Prophylaxis heparin drip -Pepcid 20 mg IVPB BID #FEN -NS @ 100 -monitor labs -regular diet as tolerated Problem List - Problems (1) Abnormal CT scan, gastrointestinal tract Code(s): R93.3 - ABNORMAL FINDINGS ON DX IMAGING OF PRT DIGESTIVE TRACT (2) Intractable vomiting with nausea Code(s): R11.2 - NAUSEA WITH VOMITING, UNSPECIFIED Qualifiers: Vomiting type: unspecified Qualified Code(s): R11.2 - Nausea with vomiting , unspecified (3) Hypertension Code(s): I10 - ESSENTIAL (PRIMARY) HYPERTENSION Qualifiers: Hypertension type: essential hypertension Qualified Code(s): I10 - Essential (primary) hypertension Visit type - Emergency Visit Emergency Visit: Yes ED Registration Date: 09/15/18 Care time: The patient presented to the Emergency Department on the above date and was hospitalized for further evaluation of their emergent condition. - New Patient This patient is new to me today: No - Critical Care Critical Care patient: No
--- NOTE | 2018-09-22 09:58 | PN ---
Progress Note, Physician Chief Complaint: Events noted Not in distress History of Present Illness: Patient was seen and examined. Awake and alert. Chart was reviewed. Denies chest pain, SOB or palpitations. Await GI evaluation - Current Medication List Current Medications: Active Medications Acetaminophen (Tylenol -) 650 mg PO Q6H PRN PRN Reason: Fever Or Pain Last Admin: 09/21/18 20:02 Dose: 650 mg Amlodipine Besylate (Norvasc -) 5 mg PO DAILY [facility] Last Admin: 09/21/18 09:16 Dose: 5 mg Heparin Sodium (Porcine) (Heparin -) 1,000 unit IVPUSH PRN PRN PRN Reason: Heparin Heparin Sodium (Porcine) (Heparin -) 5,000 unit IVPUSH PRN PRN PRN Reason: Heparin Last Admin: 09/17/18 15:56 Dose: 5,000 unit Heparin Sodium/Dextrose (Heparin Infusion -) 25,000 units in 500 mls @ 16 mls/ hr IVPB TITR [facility]; Protocol Last Admin: 09/21/18 09:32 Dose: 800 units/hr, 16 mls/hr Potassium Chloride 10 meq/ (Sodium Chloride) 1,005 mls @ 42 mls/hr IVPB Q24H [facility] Last Admin: 09/21/18 17:33 Dose: Not Given Dextrose/Sodium Chloride (D5-Ns -) 1,000 mls @ 83 mls/hr IV ASDIR [facility] Pantoprazole Sodium (Protonix -) 20 mg PO DAILY [facility] Last Admin: 09/21/18 09:16 Dose: 20 mg - Objective Vital Signs: Vital Signs Temperature 98.2 F 09/22/18 03:32 Pulse Rate 68 09/22/18 03:32 Respiratory Rate 18 09/22/18 03:32 Blood Pressure 118/76 09/22/18 03:32 O2 Sat by Pulse Oximetry (%) 100 09/21/18 21:00 Eyes: Yes: PERRL HENT: Yes: Atraumatic Neck: Yes: Supple Cardiovascular: Yes: Regular Rate and Rhythm, S1, S2 Respiratory: Yes: CTA Bilaterally Gastrointestinal: Yes: Normal Bowel Sounds, Soft. No: Tenderness Edema: No Additional Findings/Remarks: - Review of Systems Constitutional: denies: Chills, Fever Cardiovascular: denies: Chest Pain, Palpitations, Shortness of Breath Respiratory: denies: Cough, Hemoptysis, Orthopnea, PND, SOB, SOB on Exertion Gastrointestinal: denies: Abdominal Pain, Constipation, Diarrhea, Melena, Nausea , Rectal Bleeding, Vomiting Musculoskeletal: denies: Joint Pain Neurological: denies: Dizziness, Headache, Seizure, Syncope 1 Labs: CBC, BMP 09/22/18 06:15 09/21/18 06:00 INR, PTT INR 1.07 (0.83-1.09) 09/20/18 06:30 Problem List - Problems (1) Prolonged QT interval Code(s): R94.31 - ABNORMAL ELECTROCARDIOGRAM [ECG] [EKG] (2) 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 Splenic infarct. unclear etiology. Rule out hypercoagulable state. Rule out PAF 2. HTN 3. Prolonged QT resolved + episode of Mobitz 1 [place] 4. UTI PLAN: 1. Heparin is to be held prior to GI work up and Coumadin can be started afterwards when cleared 2. quality assurance monitor final (No AF so far on the monitor, but showed Mobitz 1) 3. Continue Norvasc 5 mg QD 4. Hold QT prolonging agents Continue present therapy Junior Manning MD
[2018-09-22 10:07] LABS: HEXAGONAL PHASE PHOSPHOLIPID 17 sec (0-11)
[2018-09-22] MEDS ORDERED: PT OWN MED DRAWER 7, Y5N ONE (10:18)
[2018-09-22] MEDS: PANTOPRAZOLE 20 MG TABLET (FP) PO SCH (10:23)
[2018-09-22] MEDS: amLODIPine BESYLATE 5 MG TABLET (FP) PO SCH (10:24)
--- NOTE | 2018-09-22 14:21 | PN ---
Progress Note (short form) - Note Progress Note: Brief endoscopy note - see full report in paper chart Diminutive duodenal polyp, removed with cold forceps Otherwise normal EGD, s/p stomach biopsies for H. pylori Recommend avoidance of cannabis Resume diet Await biopsies If symptoms persist, can consider gastric emptying study Should have GI follow up on discharge
--- NOTE | 2018-09-22 16:32 | PN ---
Teaching Attending Note Name of Resident: Nalini Farrar ATTENDING PHYSICIAN STATEMENT I saw and evaluated the patient. I reviewed the resident's note and discussed the case with the resident. I agree with the resident's findings and plan as documented. SUBJECTIVE: no fever or chills. No abd pain. OBJECTIVE: NAD, awake, alert, cooperative HEENT: MMM, CV: RRR, no MRG Lungs: CTAB Abd: NT, ND , NL BS Ext : no edema or erythema. ASSESSMENT AND PLAN: 48 y/o lady with h/o CVA, hTN, GERD, depression and anxiety, cocaine and marijuana use , who presented with N/V and abd pain. She was found to have splenic infarct and other pathologies. 1- Possible Splenic infarct. - MRI confirms wedge shaped lesion, most likely infarct. will discuss further with radiologist to confirm diagnosis. ? triple phase CT - resume heparin gtt - hypercoagulable w/u : Protein C, S, C-[id number] and anticardiolipin: Neg. Lupus anticoagulant + and phospholipid Abs +. above was d/w Dr. Adame who recommends repeat hypercoagulable w/u in 3 months - follow Flaherty Abx. Ds Abs are neg 2- N/V. - EGD with duodenal ulcer. follow Bx. - cont protonix 3- UTI. completed 7 days of Ceftriaxone 4- R renal cyst. will follow as out pt with uro . 5- Appendix enlargement. follow up with repeat imaging as out pt . then if persistent then surgical evaluation 6- HTN : - cont norvasc for now 7- ? history of A fib , per patient .patient refused to give permission to obtain her records form [facility]. if she really has A fib, then her [id number] score is 2 and will need AC for that. will d/w card . 8- declined Hep A immunization
[2018-09-22] MEDS: POTASSIUM CHLORIDE 10 MEQ in SODIUM CHLORIDE 0.45% 1,000 ML IVPB SCH (17:20)
[2018-09-22] MEDS: HEPARIN INFUSION - 25,000 UNITS/500 ML INFUS.BAG IVPB SCH (20:19)
--- NOTE | 2018-09-22 21:26 | PN ---
Progress Note (short form) - Note Progress Note: Patient seen and examined LUQ pain rsolved Feels well Last Vital Signs Temp Pulse Resp BP Pulse Ox 98.5 F 69 18 118/82 99 09/22/18 22:00 09/22/18 22:00 09/22/18 22:00 09/22/18 22:00 09/22/18 21:00 Cor: RSR, No murmurs, No gallops Lungs: Clear to P&A Abd: Soft, Normal bowel sounds, No organomegaly Ext:No significant edema Labs/Meds reviewed A/P 48 y/o patient with nausea, vomiting, alcohol use, marijuana use, LUQ pain, Treated for UTI CT scan showed hypodensity in anterior third of spleen could be infarct. Doppler u/s--patent splenic vasculature. no thrombosis anticardiolin and b2 glycoprotien abs/protein S/ATIII-nl FVL /PT [id number] pending LAC negative on and positive on ---needs repeating in 12 weeks to c onfirm MRI abdomen--wedge shaped area in the spleen--? old infarct versus cyst versus hemangioma will need to discuss with radiology ?? further imaging to delineate and decide on a/c accordingly sister with h/o DVT/on blood thinners cardiology f/u on remote h/o afib physical therapy f/u
[2018-09-23 06:42] LABS: HEMATOCRIT 35.8 % (32.4-45.2); HEMOGLOBIN 12.2 GM/dL (10.7-15.3); MCH 33.6 pg (25.7-33.7); MCHC 33.9 g/dl (32.0-36.0); MEAN CELL VOLUME 99.1 fl (80-96); MEAN PLT VOLUME 8.3 fl (7.5-11.1); PLATELET COUNT 441 K/MM3 (134-434); RBC 3.62 M/mm3 (3.60-5.2); RDW 15.6 % (11.6-15.6); WHITE BLOOD COUNT 4.9 K/mm3 (4.0-10.0)
[2018-09-23 07:09] LABS: INR 1.06 (0.83-1.09); PROTHROMBIN TIME (PATIENT) 12.5 SEC (9.7-13.0)
[2018-09-23 07:14] LABS: ANION GAP 5 MMOL/L (8-16); BLOOD UREA NITROGEN 7 mg/dL (7-18); CALCIUM 9.1 mg/dL (8.5-10.1); CHLORIDE 103 mmol/L (98-107); CO2 30 mmol/L (21-32); CREATININE 0.7 mg/dL (0.55-1.3); GLUCOSE,RANDOM 70 mg/dL (74-106); MAGNESIUM 2.3 mg/dL (1.8-2.4); PHOSPHOROUS 5.3 mg/dL (2.5-4.9); POTASSIUM 4.2 mmol/L (3.5-5.1); SODIUM 138 mmol/L (136-145)
--- NOTE | 2018-09-23 08:42 | PN ---
Physical Exam: SUBJECTIVE: Patient seen and examined at bedside- no acute events overnight; patient states that she is feeling well but angry to stll be here- denies any CP /SOB/N/v fevers or chills OBJECTIVE: Vital Signs Period Temp Pulse Resp BP Sys/Enriquez Pulse Ox Last 24 Hr 98.1 F-98.6 F 66-77 12-18 93-137/71-95 99-100 GENERAL: The patient is awake, alert, and fully oriented, in no acute distress. HEAD: Normal with no signs of trauma. EYES: PERRL, extraocular movements intact, sclera anicteric, conjunctiva clear. No ptosis. ENT: Ears normal, nares patent, oropharynx clear without exudates, moist mucous membranes. NECK: Trachea midline, full range of motion, supple. LUNGS: Breath sounds equal, clear to auscultation bilaterally, no wheezes, no crackles, no accessory muscle use. HEART: Regular rate and rhythm, S1, S2 without murmur, rub or gallop. ABDOMEN: Soft, nontender, nondistended, normoactive bowel sounds, no guarding, no rebound, no hepatosplenomegaly, no masses. EXTREMITIES: 2+ pulses, warm, well-perfused, no edema. NEUROLOGICAL: Cranial nerves II through XII grossly intact. Normal speech, gait not observed. PSYCH: Normal mood, normal affect. SKIN: Warm, dry, normal turgor, no rashes or lesions noted Laboratory Results - last 24 hr 09/18/18 09/18/18 09/20/18 07:00 07:00 06:30 WBC RBC Hgb Hct MCV MCH MCHC RDW Plt Count MPV PT with INR INR PTT (Actin FS) Lupus Anticoag PTT Mix 57.6 H LA PTT Baseline 68.4 H dRVVT Confirm Interp 42.0 Hexagonal Phospholipid 17 H Lupus Anticoag Comment Comment: Factor V Leiden Sodium Potassium Chloride Carbon Dioxide Anion Gap BUN Creatinine Creat Clearance w eGFR Random Glucose Calcium Phosphorus Magnesium Double Strand DNA Ab 3 Smooth Musc &DIGITAL MARKETER Intrp 32 H Prothrombin [id number] Mut 09/22/18 09/23/18 09/23/18 06:15 06:00 06:00 WBC 4.9 RBC 3.62 Hgb 12.2 Hct 35.8 MCV 99.1 H MCH 33.6 MCHC 33.9 RDW 15.6 Plt Count 441 H MPV 8.3 PT with INR INR PTT (Actin FS) 77.7 H 69.7 H Lupus Anticoag PTT Mix LA PTT Baseline dRVVT Confirm Interp Hexagonal Phospholipid Lupus Anticoag Comment Factor V Leiden Sodium Potassium Chloride Carbon Dioxide Anion Gap BUN Creatinine Creat Clearance w eGFR Random Glucose Calcium Phosphorus Magnesium Double Strand DNA Ab Smooth Musc &DIGITAL MARKETER Intrp Prothrombin [id number] Mut 09/23/18 09/23/18 06:00 06:00 WBC RBC Hgb Hct MCV MCH MCHC RDW Plt Count MPV PT with INR 12.50 INR 1.06 PTT (Actin FS) Lupus Anticoag PTT Mix LA PTT Baseline dRVVT Confirm Interp Hexagonal Phospholipid Lupus Anticoag Comment Factor V Leiden Sodium 138 Potassium 4.2 Chloride 103 Carbon Dioxide 30 Anion Gap 5 L BUN 7 Creatinine 0.7 Creat Clearance w eGFR > 60 Random Glucose 70 L Calcium 9.1 Phosphorus 5.3 H Magnesium 2.3 Double Strand DNA Ab Smooth Musc &DIGITAL MARKETER Intrp Prothrombin [id number] Mut Active Medications Generic Name Dose Route Start Last Admin Trade Name Freq PRN Reason Stop Dose Admin Acetaminophen 650 mg 09/16/18 20:33 09/21/18 20:02 Tylenol - PO 650 mg Q6H PRN Administration Fever Or Pain Amlodipine Besylate 5 mg 09/16/18 14:15 09/22/18 10:24 Norvasc - PO 5 mg DAILY KRISTYN Administration Heparin Sodium (Porcine) 1,000 unit 09/17/18 10:18 Heparin - IVPUSH PRN PRN Heparin Heparin Sodium (Porcine) 5,000 unit 09/17/18 10:18 09/17/18 15:56 Heparin - IVPUSH 5,000 unit PRN PRN Administration Heparin Heparin Sodium/Dextrose 25,000 units in 500 mls @ 16 mls/hr 09/17/18 10:30 20:19 Heparin Infusion - IVPB 750 units/hr TITR KRISTYN 15 mls/hr Administration Protocol 800 UNITS/HR Dextrose/Sodium Chloride 1,000 mls @ 83 mls/hr 09/22/18 00:01 09/22/18 10:35 D5-Ns - IV 83 mls/hr ASDIR KRISTYN Administration Pantoprazole Sodium 20 mg 09/21/18 10:00 09/22/18 10:23 Protonix - PO 20 mg DAILY KRISTYN Administration ASSESSMENT/PLAN: 48F w/ pmhx of CVA (2002), GERD/gastritis, cocaine/marijuana abuse, HTN, depression presented to the ED with complaints of persistent nausea/vomiting since Saturday #Intractable nausea/vomiting; likely 2/2 Cyclical Vomiting syndrome due to marijuana use vs. viral gastroenteritis, r/o colitis. patient went for EGD yesterday -regular diet -NS @ 100 for hydration -Pepcid 20 mg IVPB BID -Compazine PRN for nausea -Avoid QTc prolonging agents #Hypertension; . 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 Additionally, her last drink prior to yesterday's attempt was over 1 week ago, prior to the onset of her symptoms. Low suspicion for alcohol withdrawal, but will monitor for possible symptoms and consider Librium protocol. -Drug cessation counseling Problem List - Problems (1) Abnormal CT scan, gastrointestinal tract Code(s): R93.3 - ABNORMAL FINDINGS ON DX IMAGING OF PRT DIGESTIVE TRACT (2) Intractable vomiting with nausea Code(s): R11.2 - NAUSEA WITH VOMITING, UNSPECIFIED Qualifiers: Vomiting type: unspecified Qualified Code(s): R11.2 - Nausea with vomiting , unspecified (3) Hypertension Code(s): I10 - ESSENTIAL (PRIMARY) HYPERTENSION Qualifiers: Hypertension type: essential hypertension Qualified Code(s): I10 - Essential (primary) hypertension Visit type - Emergency Visit Emergency Visit: Yes ED Registration Date: 09/15/18 Care time: The patient presented to the Emergency Department on the above date and was hospitalized for further evaluation of their emergent condition. - New Patient This patient is new to me today: No - Critical Care Critical Care patient: No
--- NOTE | 2018-09-23 08:59 | PN ---
Progress Note (short form) - Note Progress Note: Chief Complaint: Events noted, notes reviewed, denies any chest pain or dyspnea History of Present Illness: Seen and examined on telemetry. Events noted, notes reviewed, denies any chest pain or dyspnea Echocardiography dated 09/17/18 revealed borderline LVH with normal LV function, LVEF 60%, trace MR - Current Medication List Current Medications: Current Medications Acetaminophen (Tylenol -) 650 mg PO Q6H PRN PRN Reason: Fever Or Pain Last Admin: 09/21/18 20:02 Dose: 650 mg Amlodipine Besylate (Norvasc -) 5 mg PO DAILY [facility] Last Admin: 09/22/18 10:24 Dose: 5 mg Heparin Sodium (Porcine) (Heparin -) 1,000 unit IVPUSH PRN PRN PRN Reason: Heparin Heparin Sodium (Porcine) (Heparin -) 5,000 unit IVPUSH PRN PRN PRN Reason: Heparin Last Admin: 09/17/18 15:56 Dose: 5,000 unit Heparin Sodium/Dextrose (Heparin Infusion -) 25,000 units in 500 mls @ 16 mls/ hr IVPB TITR KRISTYN; Protocol Last Admin: 09/22/18 20:19 Dose: 750 units/hr, 15 mls/hr Dextrose/Sodium Chloride (D5-Ns -) 1,000 mls @ 83 mls/hr IV ASDIR KRISTYN Last Admin: 09/22/18 10:35 Dose: 83 mls/hr Pantoprazole Sodium (Protonix -) 20 mg PO DAILY [facility] Last Admin: 09/22/18 10:23 Dose: 20 mg Review of Systems Cardiovascular: As noted above Respiratory: denies: As noted above Gastrointestinal: denies: Nausea, Vomiting, Diarrhea, Constipation or Abdominal Discomfort Musculoskeletal: No Symptoms Reported Endocrine: No Symptoms Reported - Objective Vital Signs: Last Vital Signs Temp Pulse Resp BP Pulse Ox 98.9 F 74 18 115/78 99 09/23/18 10:00 09/23/18 10:00 09/23/18 10:00 09/23/18 10:00 09/22/18 21:00 Intake & Output 09/20/18 09/21/18 09/22/18 09/23/18 23:59 23:59 23:59 23:59 Intake Total 684 1509 200 0 Balance 684 1509 200 0 Constitutional: No Distress, Calm, Thin Neck: Supple Negative JVD Cardiovascular: S1 S2 Regular Rate and Rhythm Respiratory: Clear to A&P Bilaterally Gastrointestinal: Soft Benign Normal Bowel Sounds Ext: No Edema Labs: CBC, BMP 09/23/18 06:00 09/23/18 06:00 Hepatic Panel Total Bilirubin 0.2 mg/dL (0.2-1) 09/17/18 08:00 AST 25 U/L (15-37) 09/17/18 08:00 ALT 38 U/L (13-61) 09/17/18 08:00 Alkaline Phosphatase 91 U/L (45-117) 09/17/18 08:00 Albumin 2.9 g/dl (3.4-5.0) L 09/21/18 06:00 INR, PTT INR 1.06 (0.83-1.09) 09/23/18 06:00 Assessment/Plan ASSESSMENT: 1. Splenic infarct, unclear etiology, rule out hypercoagulable state, rule out PAF/no evidence thus far 2. HTN 3. Prolonged QT resolved 4. Episode of Mobitz 1 AV block/[place] PLAN: 1. A/C with Heparin and eventually Coumadin 2. May benefit from extended ambulatory telemetry monitoring as outpatient/ possible ILR 3. Continue Norvasc 4. Avoidance of QT prolonging agents Jian Bales MD
[2018-09-23] MEDS: amLODIPine BESYLATE 5 MG TABLET (FP) PO SCH (09:05)
[2018-09-23] MEDS: PANTOPRAZOLE 20 MG TABLET (FP) PO SCH (09:05)
[2018-09-23] MEDS: ACETAMINOPHEN 325 MG TABLET (FP) PO PRN ×2 (09:08→18:49)
[2018-09-23] MEDS: HEPARIN INFUSION - 25,000 UNITS/500 ML INFUS.BAG IVPB SCH ×2 (10:55→19:46)
[2018-09-23] MEDS: WARFARIN NA 7.5 MG TABLET (FP) PO SCH (17:25)
--- NOTE | 2018-09-23 18:51 | PN ---
Progress Note (short form) - Note Progress Note: Patient seen Some question about splenic lesion --?infarct vs. cyst vs hemangioma (MRI) Significant implications in view of need for a/c and patients history if infarct . Thombophilia work up with [facility] on 2 days with differing reslults. 12 week follow up needed. Need to define with radiology best imaging to clarify splenic lesion.
--- NOTE | 2018-09-23 20:24 | PN ---
Teaching Attending Note Name of Resident: Nalini Farrar ATTENDING PHYSICIAN STATEMENT I saw and evaluated the patient. I reviewed the resident's note and discussed the case with the resident. I agree with the resident's findings and plan as documented. SUBJECTIVE: no fever or chills . No abd pain OBJECTIVE: NAD, awake, alert, cooperative HEENT: MMM, CV: RRR, no MRG Lungs: CTAB Abd: NT, ND , NL BS Ext : no edema or erythema. ASSESSMENT AND PLAN: 48 y/o lady with h/o CVA, HTN, GERD, depression and anxiety, cocaine and marijuana use , who presented with N/V and abd pain. She was found to have splenic infarct and other pathologies. 1- Splenic infarct. MRI findings were d/w Dr. Casanova. The splenic finding is consistent with infarct, not hemangioma or cyst. No other imaging modality is advised - cont heparin bridging to coumadin - hypercoagulable w/u : to be repeated w/u in 3 months - will consult Dr. Cordero , r/o Lupus 2- N/V. - EGD with duodenal ulcer. follow Bx. - cont protonix 3- UTI. completed 7 days of Ceftriaxone 4- R renal cyst. will follow as out pt with uro . 5- Appendix enlargement. follow up with repeat imaging as out pt . then if persistent then surgical evaluation 6- HTN : - cont norvasc for now 7- ? history of A fib , per patient .obtain records form [facility] , patient ave consent 8- Declined Hep A immunization
[2018-09-24 06:43] LABS: HEMATOCRIT 36.7 % (32.4-45.2); HEMOGLOBIN 12.2 GM/dL (10.7-15.3); MCHC 33.2 g/dl (32.0-36.0); MEAN CELL VOLUME 99.7 fl (80-96); MEAN PLT VOLUME 8.1 fl (7.5-11.1); PLATELET COUNT 418 K/MM3 (134-434); RBC 3.68 M/mm3 (3.60-5.2); RDW 15.6 % (11.6-15.6)
[2018-09-24 06:47] LABS: INR 1.08 (0.83-1.09); PROTHROMBIN TIME (PATIENT) 12.7 SEC (9.7-13.0)
[2018-09-24 06:51] LABS: ACTIVATED PTT 75.9 SECONDS (25.2-36.5)
[2018-09-24 07:14] LABS: ANION GAP 6 MMOL/L (8-16); BLOOD UREA NITROGEN 9 mg/dL (7-18); CALCIUM 9.2 mg/dL (8.5-10.1); CHLORIDE 102 mmol/L (98-107); CO2 30 mmol/L (21-32); CREATININE 0.6 mg/dL (0.55-1.3); GLUCOSE,RANDOM 65 mg/dL (74-106); MAGNESIUM 2.3 mg/dL (1.8-2.4); PHOSPHOROUS 4.3 mg/dL (2.5-4.9); POTASSIUM 4.1 mmol/L (3.5-5.1); SODIUM 138 mmol/L (136-145)
--- NOTE | 2018-09-24 07:46 | PN ---
Teaching Attending Note Name of Resident: Nalini Farrar ATTENDING PHYSICIAN STATEMENT I saw and evaluated the patient. I reviewed the resident's note and discussed the case with the resident. I agree with the resident's findings and plan as documented. SUBJECTIVE: Patient has no new complain. denies any chest pain or palpitations. OBJECTIVE: Vital Signs Temperature 98.5 F 09/24/18 06:00 Pulse Rate 65 09/24/18 06:00 Respiratory Rate 18 09/24/18 06:00 Blood Pressure 115/70 09/24/18 06:00 O2 Sat by Pulse Oximetry (%) 98 09/23/18 22:00 GENERAL: AAOx3. NAD. HEENT: AT/NC. EOMI. JOSE. MMM. NECK: Normal range of motion, supple without lymphadenopathy, JVD, or masses. LUNGS: CTA B/L. No wheezes or crackles noted. HEART: RRR. Normal S1, S2. No murmurs noted. ABDOMEN: Soft, NT, NR, No masses ecchymoses noted. positive for BS. MUSCULOSKELETAL: Normal ROM at all joints. No bony deformities or tenderness. No CVA tenderness. EXTREMITIES: 2+ pulses, warm, well-perfused. No cyanosis. No clubbing. No peripheral edema. NEUROLOGICAL: Normal speech. Facial muscles intact. No facial droop. 5/5 muscle strength b/l. CBCD WBC 4.0 K/mm3 (4.0-10.0) 09/24/18 06:00 RBC 3.68 M/mm3 (3.60-5.2) 09/24/18 06:00 Hgb 12.2 GM/dL (10.7-15.3) 09/24/18 06:00 Hct 36.7 % (32.4-45.2) 09/24/18 06:00 MCV 99.7 fl (80-96) H 09/24/18 06:00 MCHC 33.2 g/dl (32.0-36.0) 09/24/18 06:00 RDW 15.6 % (11.6-15.6) 09/24/18 06:00 Plt Count 418 K/MM3 (134-434) 09/24/18 06:00 MPV 8.1 fl (7.5-11.1) 09/24/18 06:00 CMP Sodium 138 mmol/L (136-145) 09/24/18 06:00 Potassium 4.1 mmol/L (3.5-5.1) 09/24/18 06:00 Chloride 102 mmol/L (98-107) 09/24/18 06:00 Carbon Dioxide 30 mmol/L (21-32) 09/24/18 06:00 Anion Gap 6 MMOL/L (8-16) L 09/24/18 06:00 BUN 9 mg/dL (7-18) 09/24/18 06:00 Creatinine 0.6 mg/dL (0.55-1.3) 09/24/18 06:00 Creat Clearance w eGFR > 60 (>60) 09/24/18 06:00 Random Glucose 65 mg/dL (74-106) L 09/24/18 06:00 Calcium 9.2 mg/dL (8.5-10.1) 09/24/18 06:00 Total Bilirubin 0.2 mg/dL (0.2-1) 09/17/18 08:00 AST 25 U/L (15-37) 09/17/18 08:00 ALT 38 U/L (13-61) 09/17/18 08:00 Alkaline Phosphatase 91 U/L (45-117) 09/17/18 08:00 Total Protein 7.4 g/dl (6.4-8.2) 09/17/18 08:00 Albumin 2.9 g/dl (3.4-5.0) L 09/21/18 06:00 Current Medications Generic Name Dose Route Start Last Admin Trade Name Freq PRN Reason Stop Dose Admin Acetaminophen 650 mg 09/16/18 20:33 09/23/18 18:49 Tylenol - PO 650 mg Q6H PRN Administration Fever Or Pain Amlodipine Besylate 5 mg 09/16/18 14:15 09/23/18 09:05 Norvasc - PO 5 mg DAILY KRISTYN Administration Heparin Sodium (Porcine) 1,000 unit 09/17/18 10:18 Heparin - IVPUSH PRN PRN Heparin Heparin Sodium (Porcine) 5,000 unit 09/17/18 10:18 09/17/18 15:56 Heparin - IVPUSH 5,000 unit PRN PRN Administration Heparin Heparin Sodium/Dextrose 25,000 units in 500 mls @ 16 mls/hr 09/17/18 10:30 06:54 Heparin Infusion - IVPB 700 units/hr TITR KRISTYN 14 mls/hr Titration Protocol 800 UNITS/HR Pantoprazole Sodium 20 mg 09/21/18 10:00 09/23/18 09:05 Protonix - PO 20 mg DAILY KRISTYN Administration Warfarin Sodium 7.5 mg 09/23/18 18:00 09/23/18 17:25 Coumadin - PO 7.5 mg DAILY@1800 KRISTYN Administration Home Medications Medication Instructions Recorded NK [No Known Home Medication] 09/18/18 CT/ABDOMEN PELVIS CT WITH CONTR Clinical history: Fever. Rule out abdominal infection in 48-year-old female. Comparison: CT 05/09/10. Contiguous transaxial images were obtained from the diaphragmatic domes and pubic symphysis without the administration of oral and after IV contrast. Sagittal and coronal reconstructions were performed. Lung bases: Negative. Bone: Negative. Liver: There is a fatty liver. Gallbladder: Small gallstone. Biliary tree: Negative. Spleen: Hypodense anterior third of the spleen which could represent an infarct. Pancreas: Negative. Adrenals: Negative. Kidneys: Right kidney shows focally hypodense area with posterior lateral bulge. This could represent a focus of infection but a mass cannot be excluded. Additional evaluation is suggested. The left kidney and demonstrate a complex hypodense lesion also posterior laterally in this can as well be evaluated with sonography. Pelvis: Negative. Bowel: 9 mm appendix with enhancement. Rule out acute appendicitis. Other: Hiatal hernia. Umbilical hernia with fat and nondistended transverse colon. Impression: Dilated appendix. Rule out appendicitis. Suggest surgical consult. Complex lesions in both kidneys which ultrasound is suggested. Anterior splenic infarct. Fatty liver. Small gallstone. Other findings as above. The study was initially read by Isabel. Reported By: Landry Varela MD 09/15/18 1036 Technique: Multi sequential MRI of the abdomen was obtained in multiple planes before and after the administration of 12 cc of Gadavist. Findings: The visualized lung bases are grossly unremarkable. The liver demonstrates normal signal intensity. No gross restricted diffusion noted within the liver. Probable tiny flash filling hemangiomas noted within the liver. The hepatic veins are patent. The portal vein is patent. Contracted gallbladder noted containing multiple polyps/stones. No intrahepatic or extrahepatic biliary ductal dilatation. No pancreatic ductal dilatation. No pancreatic mass. The splenic vein remains patent. There is a 1.6 cm high T2 signal lesion involving the periphery of the inferior pole of the spleen demonstrating no enhancement on the postcontrast imaging. No gross restricted diffusion noted. Gastroesophageal reflux noted. Nonspecific periportal lymph nodes. The adrenals are unremarkable. The kidneys demonstrate symmetric enhancement with no contour deforming mass or hydronephrosis. The abdominal aorta demonstrates normal caliber. No enlarged retroperitoneal lymph nodes. Impression: 1.6 cm wedge- shaped focus of abnormal signal and enhancement involving the inferior pole of the spleen. This could represent an old infarct versus a benign cyst/slow filling hemangioma. Reported By: Raul Breen MD 09/22/18 1315 Esophagram, upper GI series. Under fluoroscopic observation, patient swallowed barium ingested effervescent granules Findings. The esophagus demonstrates normal swallowing mechanism and normal peristaltic activity. No abnormal dilatation of esophagus is noted and no stricture is seen. No evidence of Zenker 's diverticulum, cricopharyngeal impression. No gastroesophageal reflux observed. No evidence of hiatal hernia. Patient swallow 1.3 cm barium pill with normal passage of the portal into the stomach. Distended stomach, mixture of barium food particles. Stasis of barium in distended stomach, limited peristalsis of the stomach. Under fluoroscopic observation, small amount of barium is seen in the nondistended duodenal bulb. On delayed overhead x -rays, barium is seen in the duodenal bulb, duodenal sweep, nondistended proximal jejunum. Normal contour of the stomach. No gastric ulcer is seen. No evidence of duodenal bulb ulcer. The gastric mucosa cannot be adequately evaluated Impression. No evidence of Zenker's diverticulum, hiatal hernia. No gastroesophageal reflux observed during the examination. No evidence of abnormal dilatation of the esophagus, or esophageal stricture. Distended stomach , mixture of barium food particles. Stasis of barium in distended stomach. Limited peristalsis of the stomach. Under fluoroscopic observation, small amount of barium is seen in the nondistended duodenal bulb. On delayed overhead x -rays, barium is seen in the duodenal bulb, duodenal sweep, nondistended proximal jejunum. Nuclear medicine gastric emptying study may be considered. No gastric ulcer is seen. No evidence of duodenal bulb ulcer. The gastric mucosa cannot be adequately evaluated. Endoscopy may be considered for further evaluation Reported By: Yoni Ewing MD 09/19/18 1024 Doppler evaluation of hepatic and splenic vasculature demonstrates patency of the portal venous and hepatic venous systems. The splenic vein is also widely patent with normal venous flow documented throughout this vessel. The spleen is normal in size measuring 8.5 x 3.3 x 8.1 cm. IMPRESSION: 1. Patent hepatic vasculature. 2. No evidence of splenomegaly or splenic vein thrombosis. ORIGINAL REPORT HISTORY PROVIDED: Follow-up to CT. Real time examination of the kidneys demonstrates the following: The kidneys are normal in size with the right kidney measuring 10.4 x 6.0 x 4.4 cm and the left kidney measuring 10.3 x 5.4 x 5.4 cm. They are normal in position and texture with no evidence of hydronephrosis or contour deforming renal masses. There is a small cyst within the lower pole of the left kidney measuring 1.3 x 1.0 x 0.8 cm. Additional possible lesions noted on a recent CT scan could not be identified. IMPRESSION: Small left renal cyst, otherwise normal renal sonogram. Please see above discussion. Laboratory Tests 09/14/18 09/14/18 09/14/18 06:15 14:50 16:45 PT with INR INR PTT (Actin FS) U Marijuana (THC) Screen Positive A* Rheumatoid Arth Biomark NAOMI Screen NAOMI Homogeneous Pattern NAOMI Nucleolar Pattern NAOMI Spindle [place] Pattern NAOMI Midbody Pattern NAOMI Centriole Pattern NAOMI Nuclear Dot Pattern NAOMI PCNA Pattern NAOMI Nuclear Membr Pat NAOMI Speckled Pattern NAOMI Centromere Pattern Double Strand DNA Ab [id number] Ab Beta-2-GPI IgM Ab Smooth Musc &SPRING MACHINE OPERATOR Intrp Anti-Cardiolipin IgG Ab Anti-Cardiolipin IgA Ab Anti-Cardiolipin IgM Ab Hepatitis A Ab Total Negative Hep Bs Antigen Negative Hep Bs Antibody Reactive Hep B Core Total Ab Negative Hep B Core IgM Ab Negative Hepatitis Be Antibody Negative Hepatitis Be Antigen Negative HCV RNA log copies/mL TNP Monoscreen Influenza A (Rapid) Negative Influenza B (Rapid) Negative Prothrombin [id number] Mut 09/17/18 09/18/18 09/18/18 08:00 07:00 07:00 PT with INR INR PTT (Actin FS) U Marijuana (THC) Screen Rheumatoid Arth Biomark < 10.0 NAOMI Screen Positive H NAOMI Homogeneous Pattern 1:320 H NAOMI Nucleolar Pattern 1:80 NAOMI Spindle [place] Pattern TNP NAOMI Midbody Pattern TNP NAOMI Centriole Pattern TNP NAOMI Nuclear Dot Pattern TNP NAOMI PCNA Pattern TNP NAOMI Nuclear Membr Pat TNP NAOMI Speckled Pattern TNP NAOMI Centromere Pattern TNP Double Strand DNA Ab [id number] Ab <9 Beta-2-GPI IgM Ab <9 Smooth Musc &SPRING MACHINE OPERATOR Intrp Anti-Cardiolipin IgG Ab <9 Anti-Cardiolipin IgA Ab <9 Anti-Cardiolipin IgM Ab <9 Hepatitis A Ab Total Hep Bs Antigen Hep Bs Antibody Hep B Core Total Ab Hep B Core IgM Ab Hepatitis Be Antibody Hepatitis Be Antigen HCV RNA log copies/mL Monoscreen Negative Influenza A (Rapid) Influenza B (Rapid) Prothrombin [id number] Mut 09/20/18 09/24/18 06:30 06:00 PT with INR 12.70 INR 1.08 PTT (Actin FS) 75.9 H U Marijuana (THC) Screen Rheumatoid Arth Biomark NAOMI Screen NAOMI Homogeneous Pattern NAOMI Nucleolar Pattern NAOMI Spindle Sabas Pattern NAOMI Midbody Pattern NAOMI Centriole Pattern NAOMI Nuclear Dot Pattern NAOMI PCNA Pattern NAOMI Nuclear Membr Pat NAOMI Speckled Pattern NAOMI Centromere Pattern Double Strand DNA Ab 3 [id number] Ab Beta-2-GPI IgM Ab Smooth Musc &SPRING MACHINE OPERATOR Intrp 32 H Anti-Cardiolipin IgG Ab Anti-Cardiolipin IgA Ab Anti-Cardiolipin IgM Ab Hepatitis A Ab Total Hep Bs Antigen Hep Bs Antibody Hep B Core Total Ab Hep B Core IgM Ab Hepatitis Be Antibody Hepatitis Be Antigen HCV RNA log copies/mL Monoscreen Influenza A (Rapid) Influenza B (Rapid) Prothrombin [id number] Mut ASSESSMENT AND PLAN: Patient is a 48yo female with PMHx of CVA, HTN, GERD, depression and anxiety, cocaine and marijuana use , who presented with N/V and abd pain. She was found to have splenic infarct. # Splenic infarct. MRI findings:The splenic finding is consistent with infarct, not hemangioma or cyst. continue heparin bridging with coumadin 7.5mg tonight , inr 1.08. hypercoagulable w/u : in process and need to be repeated w/u in 3 months, Dr. Cordero for consult for possible Lupus # N/V, s/p EGD with duodenal polyp was removed, pending Bx. On protonix continue # UTI. completed 7 days of Ceftriaxone # R renal cyst. As per urologist Dr. ragsdale ; benign simple cyst. No suspicious of renal masses seen on MRI and US in follow up of CT scan report. No further treatment recommended at this time. # Appendix enlargement. follow up with repeat imaging as out pt . then if persistent then surgical evaluation # HTN :cont norvasc #Hx of A fib: as per patient .obtain records form [facility] Hep A immunization
--- NOTE | 2018-09-24 08:29 | PN ---
Physical Exam: SUBJECTIVE: Patient seen and examined at bedside- patient is angry and frustrated however denies any CP/N/V fevers or chills OBJECTIVE: Vital Signs Period Temp Pulse Resp BP Sys/Enriquez Pulse Ox Last 24 Hr 98.5 F-99.4 F 65-81 18-18 113-125/59-89 98-100 GENERAL: The patient is awake, alert, and fully oriented, in no acute distress.. EYES: PEERLA; EOMI; no scleral icterus. NECK: no JVD, no lymphadenopathy LUNGS:CTA B/L; no rales, rhochi or wheezing. HEART: Regular rate and rhythm, S1, S2 without murmur, rub or gallop. ABDOMEN: Soft, nontender, nondistended, normoactive bowel sounds, no guarding, no rebound, no hepatosplenomegaly, no masses. EXTREMITIES: 2+ pulses, warm, well-perfused, no edema. PSYCH: Normal mood, normal affect. SKIN: Warm, dry, normal turgor, no rashes or lesions noted Laboratory Results - last 24 hr 09/24/18 09/24/18 09/24/18 06:00 06:00 06:00 WBC 4.0 RBC 3.68 Hgb 12.2 Hct 36.7 MCV 99.7 H MCH 33.0 MCHC 33.2 RDW 15.6 Plt Count 418 MPV 8.1 PT with INR 12.70 INR 1.08 PTT (Actin FS) 75.9 H Sodium 138 Potassium 4.1 Chloride 102 Carbon Dioxide 30 Anion Gap 6 L BUN 9 Creatinine 0.6 Creat Clearance w eGFR > 60 Random Glucose 65 L Calcium 9.2 Phosphorus 4.3 Magnesium 2.3 Active Medications Generic Name Dose Route Start Last Admin Trade Name Freq PRN Reason Stop Dose Admin Acetaminophen 650 mg 09/16/18 20:33 09/23/18 18:49 Tylenol - PO 650 mg Q6H PRN Administration Fever Or Pain Amlodipine Besylate 5 mg 09/16/18 14:15 09/23/18 09:05 Norvasc - PO 5 mg DAILY KRISTYN Administration Heparin Sodium (Porcine) 1,000 unit 09/17/18 10:18 Heparin - IVPUSH PRN PRN Heparin Heparin Sodium (Porcine) 5,000 unit 09/17/18 10:18 09/17/18 15:56 Heparin - IVPUSH 5,000 unit PRN PRN Administration Heparin Heparin Sodium/Dextrose 25,000 units in 500 mls @ 16 mls/hr 09/17/18 10:30 06:54 Heparin Infusion - IVPB 700 units/hr TITR KRISTYN 14 mls/hr Titration Protocol 800 UNITS/HR Pantoprazole Sodium 20 mg 09/21/18 10:00 09/23/18 09:05 Protonix - PO 20 mg DAILY KRISTYN Administration Warfarin Sodium 7.5 mg 09/23/18 18:00 09/23/18 17:25 Coumadin - PO 7.5 mg DAILY@1800 KRISTYN Administration ASSESSMENT/PLAN: 48F w/ pmhx of CVA (2002), GERD/gastritis, cocaine/marijuana abuse, HTN, depression presented to the ED with complaints of persistent nausea/vomiting #Intractable nausea/vomiting; likely 2/2 Cyclical Vomiting syndrome due to marijuana use vs. viral gastroenteritis, r/o colitis. -regular diet -NS @ 100 for hydration -Pepcid 20 mg IVPB BID -Compazine PRN for nausea -Avoid QTc prolonging agents -EGD was normal; may need gastric empyting study as an outpatient if still having symptoms #Hypertension; . 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 Additionally, her last drink prior to yesterday's attempt was over 1 week ago, prior to the onset of her symptoms. Low suspicion for alcohol withdrawal, but will monitor for possible symptoms and consider Librium protocol. -Drug cessation counseling Problem List - Problems (1) Abnormal CT scan, gastrointestinal tract Code(s): R93.3 - ABNORMAL FINDINGS ON DX IMAGING OF PRT DIGESTIVE TRACT (2) Intractable vomiting with nausea Code(s): R11.2 - NAUSEA WITH VOMITING, UNSPECIFIED Qualifiers: Vomiting type: unspecified Qualified Code(s): R11.2 - Nausea with vomiting , unspecified (3) Hypertension Code(s): I10 - ESSENTIAL (PRIMARY) HYPERTENSION Qualifiers: Hypertension type: essential hypertension Qualified Code(s): I10 - Essential (primary) hypertension Visit type - Emergency Visit Emergency Visit: Yes ED Registration Date: 09/15/18 Care time: The patient presented to the Emergency Department on the above date and was hospitalized for further evaluation of their emergent condition. - New Patient This patient is new to me today: No - Critical Care Critical Care patient: No
--- NOTE | 2018-09-24 09:34 | PN ---
Progress Note, Physician History of Present Illness: LUQ pain, nausea and emesis improving, tolerated breakfast. No PAF on telemetry. - Current Medication List Current Medications: Active Medications Acetaminophen (Tylenol -) 650 mg PO Q6H PRN PRN Reason: Fever Or Pain Last Admin: 09/23/18 18:49 Dose: 650 mg Amlodipine Besylate (Norvasc -) 5 mg PO DAILY [facility] Last Admin: 09/23/18 09:05 Dose: 5 mg Heparin Sodium (Porcine) (Heparin -) 1,000 unit IVPUSH PRN PRN PRN Reason: Heparin Heparin Sodium (Porcine) (Heparin -) 5,000 unit IVPUSH PRN PRN PRN Reason: Heparin Last Admin: 09/17/18 15:56 Dose: 5,000 unit Heparin Sodium/Dextrose (Heparin Infusion -) 25,000 units in 500 mls @ 16 mls/ hr IVPB TITR [facility]; Protocol Last Titration: 09/24/18 06:54 Dose: 700 units/hr, 14 mls/hr Pantoprazole Sodium (Protonix -) 20 mg PO DAILY [facility] Last Admin: 09/23/18 09:05 Dose: 20 mg Warfarin Sodium (Coumadin -) 7.5 mg PO DAILY@1800 [facility] Last Admin: 09/23/18 17:25 Dose: 7.5 mg - Objective Vital Signs: Vital Signs Temperature 98.5 F 09/24/18 06:00 Pulse Rate 65 09/24/18 06:00 Respiratory Rate 18 09/24/18 06:00 Blood Pressure 115/70 09/24/18 06:00 O2 Sat by Pulse Oximetry (%) 98 09/23/18 22:00 Constitutional: Yes: No Distress, Calm, Thin Neck: Yes: Supple Cardiovascular: Yes: Regular Rate and Rhythm Respiratory: Yes: Regular, CTA Bilaterally Gastrointestinal: Yes: Normal Bowel Sounds, Soft Edema: No Labs: CBC, BMP 09/24/18 06:00 09/24/18 06:00 INR, PTT INR 1.08 (0.83-1.09) 09/24/18 06:00 Problem List - Problems (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 (2) Abnormal CT scan, gastrointestinal tract Code(s): R93.3 - ABNORMAL FINDINGS ON DX IMAGING OF PRT DIGESTIVE TRACT (3) Hypertension Code(s): I10 - ESSENTIAL (PRIMARY) HYPERTENSION Qualifiers: Hypertension type: essential hypertension Qualified Code(s): I10 - Essential (primary) hypertension (4) Old cerebrovascular accident (CVA) without late effect Code(s): Z86.73 - PRSNL HX OF TIA (TIA), AND CEREB INFRC W/O RESID DEFICITS Assessment/Plan 09/17/2018 Echo: Normal LV size with borderline cLVH, normal LVEF 60%, normal atrial sizes, mild MD, tr-mild TR, tr MR 1. Splenic infarct, unclear etiology, rule out hypercoagulable state, rule out PAF/no evidence thus far 2. HTN 3. Prolonged QT resolved 4. Episode of Mobitz 1 AV block/[place] PLAN: 1. A/C with Heparin-> Coumadin per INR 2. May benefit from extended ambulatory telemetry monitoring as outpatient/ possible ILR 3. Continue Norvasc 4. Avoidance of QT prolonging agents
[2018-09-24] MEDS: PANTOPRAZOLE 20 MG TABLET (FP) PO SCH (09:39)
[2018-09-24] MEDS: amLODIPine BESYLATE 5 MG TABLET (FP) PO SCH (09:39)
--- NOTE | 2018-09-24 10:22 | PN ---
Physical Exam: SUBJECTIVE: Patient seen and examined upset with situation; less nausea, no vomiting OBJECTIVE: Vital Signs Period Temp Pulse Resp BP Sys/Enriquez Pulse Ox Last 24 Hr 98.4 F-99.4 F 65-81 18-18 113-125/59-89 98-98 GENERAL: The patient is awake, alert, and fully oriented, in no acute distress. LUNGS: Breath sounds equal, clear to auscultation bilaterally, no wheezes, no crackles, no accessory muscle use. HEART: Regular rate and rhythm, S1, S2 without murmur, rub or gallop. ABDOMEN: Soft, less tender in RUQ area EXTREMITIES: 2+ pulses, warm, well-perfused, no edema. NEUROLOGICAL: Cranial nerves II through XII grossly intact. Normal speech, gait not observed. PSYCH: Normal mood, normal affect. SKIN: Warm, dry, normal turgor, no rashes or lesions noted Laboratory Results - last 24 hr 09/24/18 09/24/18 09/24/18 06:00 06:00 06:00 WBC 4.0 RBC 3.68 Hgb 12.2 Hct 36.7 MCV 99.7 H MCH 33.0 MCHC 33.2 RDW 15.6 Plt Count 418 MPV 8.1 PT with INR 12.70 INR 1.08 PTT (Actin FS) 75.9 H Sodium 138 Potassium 4.1 Chloride 102 Carbon Dioxide 30 Anion Gap 6 L BUN 9 Creatinine 0.6 Creat Clearance w eGFR > 60 Random Glucose 65 L Calcium 9.2 Phosphorus 4.3 Magnesium 2.3 Active Medications Generic Name Dose Route Start Last Admin Trade Name Freq PRN Reason Stop Dose Admin Acetaminophen 650 mg 09/16/18 20:33 09/23/18 18:49 Tylenol - PO 650 mg Q6H PRN Administration Fever Or Pain Amlodipine Besylate 5 mg 09/16/18 14:15 09/24/18 09:39 Norvasc - PO 5 mg DAILY KRISTYN Administration Heparin Sodium (Porcine) 1,000 unit 09/17/18 10:18 Heparin - IVPUSH PRN PRN Heparin Heparin Sodium (Porcine) 5,000 unit 09/17/18 10:18 09/17/18 15:56 Heparin - IVPUSH 5,000 unit PRN PRN Administration Heparin Heparin Sodium/Dextrose 25,000 units in 500 mls @ 16 mls/hr 09/17/18 10:30 06:54 Heparin Infusion - IVPB 700 units/hr TITR KRISTYN 14 mls/hr Titration Protocol 800 UNITS/HR Pantoprazole Sodium 20 mg 09/21/18 10:00 09/24/18 09:39 Protonix - PO 20 mg DAILY KRISTYN Administration Warfarin Sodium 7.5 mg 09/23/18 18:00 09/23/18 17:25 Coumadin - PO 7.5 mg DAILY@1800 KRISTYN Administration ASSESSMENT/PLAN: This is a 48 year old female with polysubstance abuse; presenting with gastritis , n,v, abdominal pain and 20wt loss for the past two weeks. . Found to have lesion on kidneys and splenic infarct on CT. Work up for thrombophilia. Splenic infarct lesions on kidneys b/l UTI cannibus dependance; hyperemisis -work up for thrombophilia in progress; lupus anticoaguant with conflicting results; repeat lupus anticoag in 12 weeks needed for diagnosis -on heparin ggt; transitioning to coumadin; monitor PT/INR to therapeutic level Visit type - Emergency Visit Emergency Visit: Yes ED Registration Date: 09/15/18 Care time: The patient presented to the Emergency Department on the above date and was hospitalized for further evaluation of their emergent condition. - New Patient This patient is new to me today: No - Critical Care Critical Care patient: No
--- NOTE | 2018-09-24 11:10 | CON.GU ---
Consult Consult Specialty:: Referred by:: Tierra Reason for Consultation:: renal mass on CT - History of Present Illness Chief Complaint: renal mass on CT History of Present Illness: 48 year old woman who presented with unrelated complaints underwent a CT scan on admission and an incidental renal abnormality. She denies and previous knowledge of it or any specific symptoms related to it. Subsequent US and MRI reveal no such renal masses, only a simple cyst. 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 Cardio/Vascular: Yes: HTN Gastrointestinal: Yes: GERD Renal/: No: Renal Failure, Renal Inusuff, BPH, Cancer, Hematuria, Hemodialysis , Neurogenic Bladder, Renal Calculi, UTI, Other ...LMP: 11/26/15 ...: No Psych: Yes: Depression - Alcohol/Substance Use Hx Alcohol Use: No History of Substance Use: reports: Cocaine, Marijuana - Smoking History Smoking history: Current every day smoker Have you smoked in the past 12 months: Yes Aproximately how many cigarettes per day: 0 - Social History History of Recent Travel: No Home Medications - Allergies Allergies/Adverse Reactions: Allergies Allergy/AdvReac Type Severity Reaction Status Date / Time beeswax Allergy Severe Difficulty Verified 09/14/18 12:51 Breathing coconut oil Allergy Severe Itching Verified 09/14/18 12:51 - Home Medications Home Medications: Ambulatory Orders NK [No Known Home Medication] 09/18/18 Family Disease History - Family Disease History Family Disease History: Diabetes: Mother (), Heart Disease: Mother, Other: Father (), Mother Review of Systems - Review of Systems Genitourinary: reports: No Symptoms Physical Exam- Vital Signs: Vital Signs Temperature 98.4 F 09/24/18 10:00 Pulse Rate 72 09/24/18 10:00 Respiratory Rate 18 09/24/18 10:00 Blood Pressure 122/66 09/24/18 10:00 O2 Sat by Pulse Oximetry (%) 98 09/24/18 09:00 Renal/: No: Bladder Distention, CVA Tenderness - Left, CVA Tenderness - Right Labs: CBC, BMP 09/24/18 06:00 09/24/18 06:00 Imaging - Results Cat Scan: Report Reviewed Ultrasound: Report Reviewed MRI: Report Reviewed Problem List - Problems (1) Renal mass Assessment/Plan: benign simple cyst. No suspicious renal masses seen on MRI and US in follow up of CT scan report. No treatment at this time. this was all explained to the patient and a follow up sonogram in March 2019 recommended. Code(s): N28.89 - OTHER SPECIFIED DISORDERS OF KIDNEY AND URETER
[2018-09-24] MEDS: HEPARIN INFUSION - 25,000 UNITS/500 ML INFUS.BAG IVPB SCH ×2 (12:54→20:46)
--- NOTE | 2018-09-24 17:22 | PATH ---
Surgical Pathology Report Patient Name: WILY BECKFORD [facility]. Rec. #: [id number] /Age/Gender: 1970 (Age: 48) / F Account: [id number] Location: 4 PEDS/ADOL Taken: 09/22/2018 Received: 09/23/2018 Reported: 09/24/2018 Physicians: MD Jeaneth Theodore M.D. Specimen(s) Received A: BX DUODENUM POLYP B: BX STOMACH Clinical History Nausea, vomiting Postoperative diagnosis: Duodenal polyp Final Diagnosis A. DUODENUM POLYP, POLYPECTOMY: DUODENUM MUCOSA WITH TUBULAR ADENOMA. B. STOMACH, BIOPSY: GASTRIC MUCOSA WITH ACTIVE CHRONIC GASTRITIS. IMMUNOSTAIN FOR H. PYLORI IS NEGATIVE. NEGATIVE FOR INTESTINAL METAPLASIA. Electronically Signed Raymond Novoa M.D. Gross Description A. Received in formalin, labeled "duodenal polyp biopsy" is a flower, irregular portion of soft tissue measuring 0.4 cm. in greatest dimension. The specimen is submitted in toto in one cassette. B. Received in formalin, labeled "stomach biopsy" are 3 flower, irregular portions of soft tissue ranging from 0.4-0.6 cm. in greatest dimension. The specimens are submitted in toto in one cassette. 09/23/201809/23/2018
[2018-09-24] MEDS: WARFARIN NA 7.5 MG TABLET (FP) PO SCH (17:28)
--- NOTE | 2018-09-24 18:35 | PN ---
Teaching Attending Note Name of Resident: Rabia Borden ATTENDING PHYSICIAN STATEMENT I saw and evaluated the patient. I reviewed the resident's note and discussed the case with the resident. I agree with the resident's findings and plan as documented. SUBJECTIVE:Patient seen and examined Lies in bed without lights on and with curtains drawn Last Vital Signs Temp Pulse Resp BP Pulse Ox 98.4 F 77 16 104/63 98 09/24/18 14:06 09/24/18 14:06 09/24/18 14:06 09/24/18 14:06 09/24/18 09:00 RSR Lungs - clear Soft abdomen No abdominal pains or tenderness Spoke with IR - feeling is that imaging study is indeed infarct and therefore a /c with coumadin appropriate. Have asked library to do literature search on NOAC's with splenic infarction- without success.' Standard coumadin therefore appropriate. OBJECTIVE: ASSESSMENT AND PLAN:
[2018-09-24] MEDS: ACETAMINOPHEN 325 MG TABLET (FP) PO PRN (19:12)
[2018-09-25] MEDS: ACETAMINOPHEN 325 MG TABLET (FP) PO PRN ×3 (05:49→17:54)
--- NOTE | 2018-09-25 08:50 | PN ---
Teaching Attending Note Name of Resident: Phong Parker ATTENDING PHYSICIAN STATEMENT I saw and evaluated the patient. I reviewed the resident's note and discussed the case with the resident. I agree with the resident's findings and plan as documented. SUBJECTIVE: Patient is c/o having fever. and tachycardic. OBJECTIVE: Vital Signs Temperature 102.9 F H 09/25/18 06:20 Pulse Rate 95 H 09/25/18 06:20 Respiratory Rate 18 09/25/18 08:18 Blood Pressure 103/60 09/25/18 06:20 O2 Sat by Pulse Oximetry (%) 98 09/25/18 08:18 Initial Vital Signs Temp Pulse Resp BP Pulse Ox 98.3 F 59 L 16 146/102 H 96 09/14/18 12:18 09/14/18 12:18 09/14/18 12:18 09/14/18 12:18 09/14/18 12:18 GENERAL: AAOx3. NAD. HEENT: AT/NC. EOMI. JOSE. MMM. NECK: Normal range of motion, supple without lymphadenopathy, JVD, or masses. LUNGS: CTA B/L. No wheezes or crackles noted. HEART: tachycardic , regular rhythem . Normal S1, S2. No murmurs noted. ABDOMEN: Soft, NT, NR, No masses ecchymoses noted. positive for BS. MUSCULOSKELETAL: Normal ROM at all joints. No bony deformities or tenderness. No CVA tenderness. EXTREMITIES: 2+ pulses, warm, well-perfused. No cyanosis. No clubbing. No peripheral edema. NEUROLOGICAL: Normal speech. Facial muscles intact. No facial droop. 5/5 muscle strength b/l. CBCD WBC 4.0 K/mm3 (4.0-10.0) 09/24/18 06:00 RBC 3.68 M/mm3 (3.60-5.2) 09/24/18 06:00 Hgb 12.2 GM/dL (10.7-15.3) 09/24/18 06:00 Hct 36.7 % (32.4-45.2) 09/24/18 06:00 MCV 99.7 fl (80-96) H 09/24/18 06:00 MCHC 33.2 g/dl (32.0-36.0) 09/24/18 06:00 RDW 15.6 % (11.6-15.6) 09/24/18 06:00 Plt Count 418 K/MM3 (134-434) 09/24/18 06:00 MPV 8.1 fl (7.5-11.1) 09/24/18 06:00 CMP Sodium 138 mmol/L (136-145) 09/24/18 06:00 Potassium 4.1 mmol/L (3.5-5.1) 09/24/18 06:00 Chloride 102 mmol/L (98-107) 09/24/18 06:00 Carbon Dioxide 30 mmol/L (21-32) 09/24/18 06:00 Anion Gap 6 MMOL/L (8-16) L 09/24/18 06:00 BUN 9 mg/dL (7-18) 09/24/18 06:00 Creatinine 0.6 mg/dL (0.55-1.3) 09/24/18 06:00 Creat Clearance w eGFR > 60 (>60) 09/24/18 06:00 Random Glucose 65 mg/dL (74-106) L 09/24/18 06:00 Calcium 9.2 mg/dL (8.5-10.1) 09/24/18 06:00 Total Bilirubin 0.2 mg/dL (0.2-1) 09/17/18 08:00 AST 25 U/L (15-37) 09/17/18 08:00 ALT 38 U/L (13-61) 09/17/18 08:00 Alkaline Phosphatase 91 U/L (45-117) 09/17/18 08:00 Total Protein 7.4 g/dl (6.4-8.2) 09/17/18 08:00 Albumin 2.9 g/dl (3.4-5.0) L 09/21/18 06:00 Hepatic Panel Total Bilirubin 0.2 mg/dL (0.2-1) 09/17/18 08:00 AST 25 U/L (15-37) 09/17/18 08:00 ALT 38 U/L (13-61) 09/17/18 08:00 Alkaline Phosphatase 91 U/L (45-117) 09/17/18 08:00 Albumin 2.9 g/dl (3.4-5.0) L 09/21/18 06:00 Home Medications Medication Instructions Recorded NK [No Known Home Medication] 09/18/18 Laboratory Tests 09/14/18 09/14/18 09/14/18 06:15 14:50 16:45 PT with INR INR PTT (Actin FS) U Marijuana (THC) Screen Positive A* Rheumatoid Arth Biomark NAOMI Screen NAOMI Homogeneous Pattern NAOMI Nucleolar Pattern NAOMI Spindle [place] Pattern NAOMI Midbody Pattern NAOMI Centriole Pattern NAOMI Nuclear Dot Pattern NAOMI PCNA Pattern NAOMI Nuclear Membr Pat NAOMI Speckled Pattern NAOMI Centromere Pattern Double Strand DNA Ab Mfeu-7-Wzjtrerkunxk Ab Beta-2-GPI IgM Ab Smooth Musc &[employer]LE[employer] SERVICE REPRESENTATIVE Intrp Anti-Cardiolipin IgG Ab Anti-Cardiolipin IgA Ab Anti-Cardiolipin IgM Ab Hepatitis A Ab Total Negative Hep Bs Antigen Negative Hep Bs Antibody Reactive Hep B Core Total Ab Negative Hep B Core IgM Ab Negative Hepatitis Be Antibody Negative Hepatitis Be Antigen Negative HCV RNA log copies/mL TNP Monoscreen Influenza A (Rapid) Negative Influenza B (Rapid) Negative Prothrombin [id number] Mut 09/17/18 09/18/18 09/18/18 08:00 07:00 07:00 PT with INR INR PTT (Actin FS) U Marijuana (THC) Screen Rheumatoid Arth Biomark < 10.0 NAOMI Screen Positive H NAOMI Homogeneous Pattern 1:320 H NAOMI Nucleolar Pattern 1:80 NAOMI Spindle Sabas Pattern TNP NAOMI Midbody Pattern TNP NAOMI Centriole Pattern TNP NAOMI Nuclear Dot Pattern TNP NAOMI PCNA Pattern TNP NAOMI Nuclear Membr Pat TNP NAOMI Speckled Pattern TNP NAOMI Centromere Pattern TNP Double Strand DNA Ab Mxyg-4-Pblbxduliuip Ab <9 Beta-2-GPI IgM Ab <9 Smooth Musc &[employer]LE[employer] SERVICE REPRESENTATIVE Intrp Anti-Cardiolipin IgG Ab <9 Anti-Cardiolipin IgA Ab <9 Anti-Cardiolipin IgM Ab <9 Hepatitis A Ab Total Hep Bs Antigen Hep Bs Antibody Hep B Core Total Ab Hep B Core IgM Ab Hepatitis Be Antibody Hepatitis Be Antigen HCV RNA log copies/mL Monoscreen Negative Influenza A (Rapid) Influenza B (Rapid) Prothrombin [id number] Mut 09/20/18 09/21/18 09/22/18 06:30 06:00 06:15 PT with INR INR PTT (Actin FS) 75.8 H 77.7 H U Marijuana (THC) Screen Rheumatoid Arth Biomark NAOMI Screen NAOMI Homogeneous Pattern NAOMI Nucleolar Pattern NAOMI Spindle Sabas Pattern NAOMI Midbody Pattern NAOMI Centriole Pattern NAOMI Nuclear Dot Pattern NAOMI PCNA Pattern NAOMI Nuclear Membr Pat NAOMI Speckled Pattern NAOMI Centromere Pattern Double Strand DNA Ab 3 Nztr-4-Xjzxeutsnkei Ab Beta-2-GPI IgM Ab Smooth Musc &[employer]LE[employer] SERVICE REPRESENTATIVE Intrp 32 H Anti-Cardiolipin IgG Ab Anti-Cardiolipin IgA Ab Anti-Cardiolipin IgM Ab Hepatitis A Ab Total Hep Bs Antigen Hep Bs Antibody Hep B Core Total Ab Hep B Core IgM Ab Hepatitis Be Antibody Hepatitis Be Antigen HCV RNA log copies/mL Monoscreen Influenza A (Rapid) Influenza B (Rapid) Prothrombin [id number] Mut 09/23/18 09/23/18 09/24/18 06:00 06:00 06:00 PT with INR 12.70 INR 1.06 1.08 PTT (Actin FS) 69.7 H 75.9 H U Marijuana (THC) Screen Rheumatoid Arth Biomark NAOMI Screen NAOMI Homogeneous Pattern NAOMI Nucleolar Pattern NAOMI Spindle [place] Pattern NAOMI Midbody Pattern NAOMI Centriole Pattern NAOMI Nuclear Dot Pattern NAOMI PCNA Pattern NAOMI Nuclear Membr Pat NAOMI Speckled Pattern NAOMI Centromere Pattern Double Strand DNA Ab Real-3-Yqqvyhardlky Ab Beta-2-GPI IgM Ab Smooth Musc &[employer]LE[employer] SERVICE REPRESENTATIVE Intrp Anti-Cardiolipin IgG Ab Anti-Cardiolipin IgA Ab Anti-Cardiolipin IgM Ab Hepatitis A Ab Total Hep Bs Antigen Hep Bs Antibody Hep B Core Total Ab Hep B Core IgM Ab Hepatitis Be Antibody Hepatitis Be Antigen HCV RNA log copies/mL Monoscreen Influenza A (Rapid) Influenza B (Rapid) Prothrombin [id number] Mut Current Medications Generic Name Dose Route Start Last Admin Trade Name Freq PRN Reason Stop Dose Admin Acetaminophen 650 mg 09/16/18 20:33 09/25/18 05:49 Tylenol - PO 650 mg Q6H PRN Administration Fever Or Pain Amlodipine Besylate 5 mg 09/16/18 14:15 09/24/18 09:39 Norvasc - PO 5 mg DAILY KRISTYN Administration Heparin Sodium (Porcine) 1,000 unit 09/17/18 10:18 Heparin - IVPUSH PRN PRN Heparin Heparin Sodium (Porcine) 5,000 unit 09/17/18 10:18 09/17/18 15:56 Heparin - IVPUSH 5,000 unit PRN PRN Administration Heparin Heparin Sodium/Dextrose 25,000 units in 500 mls @ 16 mls/hr 09/17/18 10:30 20:46 Heparin Infusion - IVPB 700 units/hr TITR KRISTYN 14 mls/hr Administration Protocol 800 UNITS/HR Pantoprazole Sodium 20 mg 09/21/18 10:00 09/24/18 09:39 Protonix - PO 20 mg DAILY KRISTYN Administration Warfarin Sodium 7.5 mg 09/23/18 18:00 09/24/18 17:28 Coumadin - PO 7.5 mg DAILY@[address]/ABDOMEN PELVIS CT WITH CONTR Clinical history: Fever. Rule out abdominal infection in 48-year-old female. Comparison: CT 05/09/10. Contiguous transaxial images were obtained from the diaphragmatic domes and pubic symphysis without the administration of oral and after IV contrast. Sagittal and coronal reconstructions were performed. Lung bases: Negative. Bone: Negative. Liver: There is a fatty liver. Gallbladder: Small gallstone. Biliary tree: Negative. Spleen: Hypodense anterior third of the spleen which could represent an infarct. Pancreas: Negative. Adrenals: Negative. Kidneys: Right kidney shows focally hypodense area with posterior lateral bulge. This could represent a focus of infection but a mass cannot be excluded. Additional evaluation is suggested. The left kidney and demonstrate a complex hypodense lesion also posterior laterally in this can as well be evaluated with sonography. Pelvis: Negative. Bowel: 9 mm appendix with enhancement. Rule out acute appendicitis. Other: Hiatal hernia. Umbilical hernia with fat and nondistended transverse colon. Impression: Dilated appendix. Rule out appendicitis. Suggest surgical consult. Complex lesions in both kidneys which ultrasound is suggested. Anterior splenic infarct. Fatty liver. Small gallstone. Other findings as above. The study was initially read by Isabel. Reported By: Landry Varela MD 09/15/18 1036 Technique: Multi sequential MRI of the abdomen was obtained in multiple planes before and after the administration of 12 cc of Gadavist. Findings: The visualized lung bases are grossly unremarkable. The liver demonstrates normal signal intensity. No gross restricted diffusion noted within the liver. Probable tiny flash filling hemangiomas noted within the liver. The hepatic veins are patent. The portal vein is patent. Contracted gallbladder noted containing multiple polyps/stones. No intrahepatic or extrahepatic biliary ductal dilatation. No pancreatic ductal dilatation. No pancreatic mass. The splenic vein remains patent. There is a 1.6 cm high T2 signal lesion involving the periphery of the inferior pole of the spleen demonstrating no enhancement on the postcontrast imaging. No gross restricted diffusion noted. Gastroesophageal reflux noted. Nonspecific periportal lymph nodes. The adrenals are unremarkable. The kidneys demonstrate symmetric enhancement with no contour deforming mass or hydronephrosis. The abdominal aorta demonstrates normal caliber. No enlarged retroperitoneal lymph nodes. Impression: 1.6 cm wedge- shaped focus of abnormal signal and enhancement involving the inferior pole of the spleen. This could represent an old infarct versus a benign cyst/slow filling hemangioma. Reported By: Raul Breen MD 09/22/18 1315 Esophagram, upper GI series. Under fluoroscopic observation, patient swallowed barium ingested effervescent granules Findings. The esophagus demonstrates normal swallowing mechanism and normal peristaltic activity. No abnormal dilatation of esophagus is noted and no stricture is seen. No evidence of Zenker 's diverticulum, cricopharyngeal impression. No gastroesophageal reflux observed. No evidence of hiatal hernia. Patient swallow 1.3 cm barium pill with normal passage of the portal into the stomach. Distended stomach, mixture of barium food particles. Stasis of barium in distended stomach, limited peristalsis of the stomach. Under fluoroscopic observation, small amount of barium is seen in the nondistended duodenal bulb. On delayed overhead x -rays, barium is seen in the duodenal bulb, duodenal sweep, nondistended proximal jejunum. Normal contour of the stomach. No gastric ulcer is seen. No evidence of duodenal bulb ulcer. The gastric mucosa cannot be adequately evaluated Impression. No evidence of Zenker's diverticulum, hiatal hernia. No gastroesophageal reflux observed during the examination. No evidence of abnormal dilatation of the esophagus, or esophageal stricture. Distended stomach , mixture of barium food particles. Stasis of barium in distended stomach. Limited peristalsis of the stomach. Under fluoroscopic observation, small amount of barium is seen in the nondistended duodenal bulb. On delayed overhead x -rays, barium is seen in the duodenal bulb, duodenal sweep, nondistended proximal jejunum. Nuclear medicine gastric emptying study may be considered. No gastric ulcer is seen. No evidence of duodenal bulb ulcer. The gastric mucosa cannot be adequately evaluated. Endoscopy may be considered for further evaluation Reported By: Yoni Ewing MD 09/19/18 1024 Doppler evaluation of hepatic and splenic vasculature demonstrates patency of the portal venous and hepatic venous systems. The splenic vein is also widely patent with normal venous flow documented throughout this vessel. The spleen is normal in size measuring 8.5 x 3.3 x 8.1 cm. IMPRESSION: 1. Patent hepatic vasculature. 2. No evidence of splenomegaly or splenic vein thrombosis. ORIGINAL REPORT HISTORY PROVIDED: Follow-up to CT. Real time examination of the kidneys demonstrates the following: The kidneys are normal in size with the right kidney measuring 10.4 x 6.0 x 4.4 cm and the left kidney measuring 10.3 x 5.4 x 5.4 cm. They are normal in position and texture with no evidence of hydronephrosis or contour deforming renal masses. There is a small cyst within the lower pole of the left kidney measuring 1.3 x 1.0 x 0.8 cm. Additional possible lesions noted on a recent CT scan could not be identified. IMPRESSION: Small left renal cyst, otherwise normal renal sonogram. Please see above discussion. ASSESSMENT AND PLAN: Patient is a 48yo female with PMHx of CVA, HTN, GERD, depression and anxiety, cocaine and marijuana use , who presented with N/V and abdominal pain. She was found to have splenic infarct. # Fever of 102.5 today, bautista culture is ordered, reconsult id. # Splenic infarct. MRI findings:The splenic finding is consistent with infarct , not hemangioma or cyst. continue heparin bridging with coumadin 7.5mg tonight , inr 1.08--> 1.44 . hypercoagulable w/u : in process and need to be repeated w/u in 3 months, Dr. Cordero for consult for possible Lupus # N/V s/p EGD with duodenal polyp was removed, follow Bx. On protonix continue # UTI. completed 7 days of Ceftriaxone # R renal cyst. As per urologist Dr. ragsdale ; benign simple cyst. No suspicious of renal masses seen on MRI and US in follow up of CT scan report. No further treatment recommended at this time. # Appendix enlargement. follow up with repeat imaging as out pt . then if persistent then surgical evaluation # HTN :cont norvasc #Hx of A fib: as per patient .obtain records form [facility] Declined Hep A immunization
[2018-09-25 09:19] LABS: HEMATOCRIT 38.1 % (32.4-45.2); HEMOGLOBIN 12.9 GM/dL (10.7-15.3); MCH 33.7 pg (25.7-33.7); MCHC 33.8 g/dl (32.0-36.0); MEAN CELL VOLUME 99.7 fl (80-96); MEAN PLT VOLUME 8.3 fl (7.5-11.1); PLATELET COUNT 372 K/MM3 (134-434); RBC 3.82 M/mm3 (3.60-5.2); RDW 15.9 % (11.6-15.6); WHITE BLOOD COUNT 9.7 K/mm3 (4.0-10.0)
[2018-09-25 09:31] LABS: INR 1.44 (0.83-1.09)
[2018-09-25 09:34] LABS: ACTIVATED PTT 66.8 SECONDS (25.2-36.5)
[2018-09-25 09:36] LABS: ANION GAP 9 MMOL/L (8-16); BLOOD UREA NITROGEN 8 mg/dL (7-18); CALCIUM 8.9 mg/dL (8.5-10.1); CHLORIDE 102 mmol/L (98-107); CO2 25 mmol/L (21-32); CREATININE 1.1 mg/dL (0.55-1.3); GLUCOSE,RANDOM 105 mg/dL (74-106); PHOSPHOROUS 4.1 mg/dL (2.5-4.9); POTASSIUM 4.2 mmol/L (3.5-5.1); SODIUM 136 mmol/L (136-145)
[2018-09-25] MEDS: PANTOPRAZOLE 20 MG TABLET (FP) PO SCH (09:41)
[2018-09-25] MEDS: amLODIPine BESYLATE 5 MG TABLET (FP) PO SCH (09:41)
--- NOTE | 2018-09-25 10:03 | PN ---
Progress Note, Physician History of Present Illness: LUQ pain, nausea and emesis improving, spiked temperature with chills, PSVT on telemetry. - Current Medication List Current Medications: Active Medications Acetaminophen (Tylenol -) 650 mg PO Q6H PRN PRN Reason: Fever Or Pain Last Admin: 09/25/18 09:46 Dose: 650 mg Amlodipine Besylate (Norvasc -) 5 mg PO DAILY [facility] Last Admin: 09/25/18 09:41 Dose: 5 mg Heparin Sodium (Porcine) (Heparin -) 1,000 unit IVPUSH PRN PRN PRN Reason: Heparin Heparin Sodium (Porcine) (Heparin -) 5,000 unit IVPUSH PRN PRN PRN Reason: Heparin Last Admin: 09/17/18 15:56 Dose: 5,000 unit Heparin Sodium/Dextrose (Heparin Infusion -) 25,000 units in 500 mls @ 16 mls/ hr IVPB TITR [facility]; Protocol Last Titration: 09/25/18 09:39 Dose: 700 units/hr, 14 mls/hr Sodium Chloride (Normal Saline -) 1,000 mls @ 100 mls/hr IV ASDIR [facility] Pantoprazole Sodium (Protonix -) 20 mg PO DAILY [facility] Last Admin: 09/25/18 09:41 Dose: 20 mg Warfarin Sodium (Coumadin -) 7.5 mg PO DAILY@1800 KRISTYN Last Admin: 09/24/18 17:28 Dose: 7.5 mg - Objective Vital Signs: Vital Signs Temperature 102.9 F H 09/25/18 06:20 Pulse Rate 95 H 09/25/18 06:20 Respiratory Rate 18 09/25/18 08:18 Blood Pressure 103/60 09/25/18 06:20 O2 Sat by Pulse Oximetry (%) 98 09/25/18 08:18 Constitutional: Yes: Anxious, Mild Distress, Thin Cardiovascular: Yes: Tachycardia Respiratory: Yes: Regular, Diminished Gastrointestinal: Yes: Soft, Hypoactive Bowel Sounds Edema: No Labs: CBC, BMP 09/25/18 09:00 09/25/18 09:00 INR, PTT INR 1.44 (0.83-1.09) H 09/25/18 09:00 - ....Imaging EKG: Report Reviewed (Tele: PSVT->SR, no PAF) Problem List - Problems (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 (2) Abnormal CT scan, gastrointestinal tract Code(s): R93.3 - ABNORMAL FINDINGS ON DX IMAGING OF PRT DIGESTIVE TRACT (3) Hypertension Code(s): I10 - ESSENTIAL (PRIMARY) HYPERTENSION Qualifiers: Hypertension type: essential hypertension Qualified Code(s): I10 - Essential (primary) hypertension (4) Old cerebrovascular accident (CVA) without late effect Code(s): Z86.73 - PRSNL HX OF TIA (TIA), AND CEREB INFRC W/O RESID DEFICITS (5) PSVT (paroxysmal supraventricular tachycardia) Code(s): I47.1 - SUPRAVENTRICULAR TACHYCARDIA (6) Fever and chills Code(s): R50.9 - FEVER, UNSPECIFIED Assessment/Plan 09/17/2018 Echo: Normal LV size with borderline cLVH, normal LVEF 60%, normal atrial sizes, mild OH, tr-mild TR, tr MR 1. Splenic infarct, unclear etiology, rule out hypercoagulable state, rule out PAF/no evidence thus far, but reported h/o PAF during another hospital admisson? 2. HTN 3. PSVT->SR 4. Fever PLAN: 1. A/C with Heparin-> Coumadin per INR 2. May benefit from extended ambulatory telemetry monitoring as outpatient/ possible ILR 3. Change Norvasc to Lopressor 25 bid 4. Avoidance of QT prolonging agents 5. Her culture r/o sepsis 6. Review outside hospital records, if indeed PAF may use NOAC instead of coumadin
[2018-09-25] MEDS: SODIUM CHLORIDE 1,000 ML IV SCH ×2 (10:30→20:33)
[2018-09-25] MEDS: METOPROLOL TARTRATE 25 MG TABLET (FP) PO SCH ×2 (10:30→21:06)
[2018-09-25] MEDS: HEPARIN INFUSION - 25,000 UNITS/500 ML INFUS.BAG IVPB SCH ×2 (10:31→20:32)
--- NOTE | 2018-09-25 15:06 | PN ---
Physical Exam: SUBJECTIVE: Patient seen and examined at bed side , fever 102.8 over night SVT on tele , no N/V/D/C , no chest pain or cough , no dysuria OBJECTIVE: Vital Signs Period Temp Pulse Resp BP Sys/Enriquez Pulse Ox Last 24 Hr 98.1 F-102.9 F 78-106 18-20 103-115/60-76 98-98 GENERAL: AAOx3 in NAD HEAD: NC/AT EYES: EOMI, Conjunctiva clear, sclera anicteric ENT: moist mucous membrane NECK: Supple, no JVD LUNGS: CTA B/L, no crackles no wheezing no accessory muscle use. HEART: RRR, NSR, normal s1, s2, murmur no M/R/G ABDOMEN: Soft, RUQ tenderness, ND, +BS 4 Q, no CVA Tenderness LOWER EXTREMITIES: no edema, +2DP pulse, NEUROLOGICAL: No focal deficit. Normal speech. gait not observed. PSYCHIATRIC: Cooperative. Laboratory Results - last 24 hr 09/25/18 09/25/18 09/25/18 09:00 09:00 09:00 WBC 9.7 RBC 3.82 Hgb 12.9 Hct 38.1 MCV 99.7 H MCH 33.7 MCHC 33.8 RDW 15.9 H Plt Count 372 MPV 8.3 PT with INR 17.00 H INR 1.44 H PTT (Actin FS) 66.8 H Sodium 136 Potassium 4.2 Chloride 102 Carbon Dioxide 25 Anion Gap 9 BUN 8 Creatinine 1.1 Creat Clearance w eGFR 53.01 Random Glucose 105 Calcium 8.9 Phosphorus 4.1 Magnesium 2.0 Active Medications Generic Name Dose Route Start Last Admin Trade Name Isidro PRN Reason Stop Dose Admin Acetaminophen 650 mg 09/16/18 20:33 09/25/18 09:46 Tylenol - PO 650 mg Q6H PRN Administration Fever Or Pain Heparin Sodium (Porcine) 1,000 unit 09/17/18 10:18 Heparin - IVPUSH PRN PRN Heparin Heparin Sodium (Porcine) 5,000 unit 09/17/18 10:18 09/17/18 15:56 Heparin - IVPUSH 5,000 unit PRN PRN Administration Heparin Heparin Sodium/Dextrose 25,000 units in 500 mls @ 16 mls/hr 09/17/18 10:30 02 /28/19 10:31 Heparin Infusion - IVPB Not Given TITR [facility] Protocol 800 UNITS/HR Sodium Chloride 1,000 mls @ 100 mls/hr 09/25/18 10:00 09/25/18 10:30 Normal Saline - IV 100 mls/hr ASDIR KRISTYN Administration Metoprolol Tartrate 25 mg 09/25/18 10:15 09/25/18 10:30 Lopressor - PO 25 mg BID KRISTYN Administration Pantoprazole Sodium 20 mg 09/21/18 10:00 09/25/18 09:41 Protonix - PO 20 mg DAILY KRISTYN Administration Warfarin Sodium 7.5 mg 09/23/18 18:00 09/24/18 17:28 Coumadin - PO 7.5 mg DAILY@1800 KRISTYN Administration CBC, BMP 09/25/18 09:00 09/25/18 09:00 ASSESSMENT/PLAN: 48F w/ pmhx of CVA (2002), GERD/gastritis, cocaine/marijuana abuse, HTN, depression presented to the ED with complaints of persistent nausea/vomiting # Fever unknown etiology * bautista cx * CXR * ID consulted * Tylenol for fever # PSVT> SR on Monitor likley from fever vS chronic SVT vs AFIB * Cardiolgy recommed switch Norvasc to Lopressor 25 BID * school lunch monitor , might need holter monitor upon DC #Intractable nausea/vomiting;resolved * likely 2/2 Cyclical Vomiting syndrome due to marijuana use vs. viral gastroenteritis, r/o colitis. * regular diet * NS @ 100 for hydration * PPI 20 mg daily * Avoid QTc prolonging agents * EGD with duodenal polyp removed F/U cx #Hypertension; . * switch norvasc to Lopressor 25 BID #Splenic INfarct * splenic infarct seen on ab/pelvis CT; etiology unclear clarified with radiologist it seems to be more chronic rather than acute * obtaining records from [facility] regarding patients remote history of afib * anti sm positive- rhuem consulted Dr Cordero * heme onc consulted recommend warfarin * echo normal * cardio consulted recommend NOAC if AFIB is confirmed * bridging heparin with coumadin #UTI * resolved * abx completed #Hx of Polysubstance abuse (alcohol/cocaine/marijuana) * Drug cessation counseling # Dispo: Monitor on TElLE Visit type - Emergency Visit Emergency Visit: Yes ED Registration Date: 09/15/18 Care time: The patient presented to the Emergency Department on the above date and was hospitalized for further evaluation of their emergent condition. - New Patient This patient is new to me today: No - Critical Care Critical Care patient: No - Discharge Referral Referred to [facility] Med [facility].C[facility] No
--- NOTE | 2018-09-25 16:52 | EKG ---
Test Reason : Blood Pressure : / mmHG Vent. Rate : 101 BPM Atrial Rate : 101 BPM P-R Int : 184 ms QRS Dur : 078 ms QT Int : 350 ms P-R-T Axes : 076 080 065 degrees QTc Int : 453 ms SINUS TACHYCARDIA NONSPECIFIC T WAVE ABNORMALITY ABNORMAL ECG WHEN COMPARED WITH ECG OF 18-SEP-2018 11:39, VENT. RATE HAS INCREASED BY 36 BPM Confirmed by MICHEAL MEDEL MD ([id number]) on 09/25/2018 4:51:57 PM Referred By: PANTERA ROLDAN Confirmed By:MICHAEL MEDEL MD
--- NOTE | 2018-09-25 17:05 | PN ---
Progress Note, Physician History of Present Illness: FEVER 102+ NOTED INTERVIEW AND EXAM LIMITED- PT UNCOOPERATIVE STATING I WOKE HER UP OFFERS NO COMPLAINTS - Current Medication List Current Medications: Active Medications Acetaminophen (Tylenol -) 650 mg PO Q6H PRN PRN Reason: Fever Or Pain Last Admin: 09/25/18 09:46 Dose: 650 mg Heparin Sodium (Porcine) (Heparin -) 1,000 unit IVPUSH PRN PRN PRN Reason: Heparin Heparin Sodium (Porcine) (Heparin -) 5,000 unit IVPUSH PRN PRN PRN Reason: Heparin Last Admin: 09/17/18 15:56 Dose: 5,000 unit Heparin Sodium/Dextrose (Heparin Infusion -) 25,000 units in 500 mls @ 16 mls/ hr IVPB TITR [facility]; Protocol Last Admin: 09/25/18 10:31 Dose: Not Given Sodium Chloride (Normal Saline -) 1,000 mls @ 100 mls/hr IV ASDIR [facility] Last Admin: 09/25/18 10:30 Dose: 100 mls/hr Metoprolol Tartrate (Lopressor -) 25 mg PO BID [facility] Last Admin: 09/25/18 10:30 Dose: 25 mg Pantoprazole Sodium (Protonix -) 20 mg PO DAILY [facility] Last Admin: 09/25/18 09:41 Dose: 20 mg Warfarin Sodium (Coumadin -) 7.5 mg PO DAILY@1800 [facility] Last Admin: 09/24/18 17:28 Dose: 7.5 mg - Objective Vital Signs: Vital Signs Temperature 100.1 F H 09/25/18 12:35 Pulse Rate 89 09/25/18 12:35 Respiratory Rate 18 09/25/18 12:35 Blood Pressure 114/68 09/25/18 10:00 O2 Sat by Pulse Oximetry (%) 98 09/25/18 08:18 Cardiovascular: Yes: Regular Rate and Rhythm, S1, S2 Respiratory: Yes: CTA Bilaterally Gastrointestinal: Yes: Normal Bowel Sounds, Soft. No: Tenderness Labs: CBC, BMP 09/25/18 09:00 09/25/18 09:00 INR, PTT INR 1.44 (0.83-1.09) H 09/25/18 09:00 Assessment/Plan FEVER ? SOURCE OFFERS NO COMPLAINTS UNCOOPERATIVE WITH EXAM CULTURES OBTAINED REPEAT INFLUENZA SWAB EMPIRIC CEFTRIAXONE
[2018-09-25] MEDS: WARFARIN NA 7.5 MG TABLET (FP) PO SCH (17:53)
[2018-09-25 18:09] LABS: URINE APPEARANCE CLEAR; URINE BILIRUBIN NEGATIVE (<2.0 mg/dL); URINE COLOR YELLOW; URINE GLUCOSE (UA) NEGATIVE (NEGATIVE); URINE KETONE NEGATIVE (NEGATIVE); URINE LEUK ESTERASE NEGATIVE (NEGATIVE); URINE NITRITE NEGATIVE (NEGATIVE); URINE PROTEIN NEGATIVE (NEGATIVE); URINE UROBILINOGEN NEGATIVE mg/dL (0.2-1.0)
[2018-09-25] MEDS: CEFTRIAXONE 2 GM in DEXTROSE 5%-WATER 100 ML IVPB SCH (18:16)
[2018-09-25] MEDS ORDERED: HEPARIN NA (PORCINE) 5,000 UNITS/ML 1ML VIAL IVPUSH PRN ×4 (18:41)
--- NOTE | 2018-09-25 18:56 | PN ---
GI Progress Note Subjective: Complains of "not feeling good". she does not give any more specifics regarding this complaint. Fevers noted She does say that she has the runs. there has been no copious diarrhea reported by nursing - Objective Vital Signs: Vital Signs Temperature 100.1 F H 09/25/18 12:35 Pulse Rate 89 09/25/18 12:35 Respiratory Rate 18 09/25/18 12:35 Blood Pressure 114/68 09/25/18 10:00 O2 Sat by Pulse Oximetry (%) 98 09/25/18 08:18 Constitutional: Calm Eyes: No: Sclera Icterus Cardiovascular: Yes: Regular Rate and Rhythm. No: Murmur Respiratory: Yes: CTA Bilaterally Gastrointestinal Inspection: No: Distention ...Auscultate: Yes: Normoactive Bowel Sounds ...Palpate: Yes: Soft, Tenderness (TTP LLQ/RLQ and pelvis). 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 I explained this to Ms. Anthony. Explained that it is precancerous but beniign polyp and that she will need colonoscopy to exclude colon adenomas as well whern her acute issues are resolved. I gave her my card and asked that she call to arrange outpatient follow-up. Code(s): R11.10 - VOMITING, UNSPECIFIED (2) Fever and chills Assessment/Plan: new onset fever and chills: Patient describes watery bowel movements: ordered stool for C. Diff toxin / antigen Left and right lower abdominopelvic pain noted on exam this evening. Ordered CT scan of the abdomen and pelvis with PO and IV contrast. If creatinine continues to rise, this should be adjusted to CT scan of abdomen and pelvis with PO contrast only. Ms. Anthony stated that she would not do it tonight and agreed for tomorrow. Clear liquids until fevers and abdominopelvic pain are further evaluated Code(s): R50.9 - FEVER, UNSPECIFIED
[2018-09-26 07:00] LABS: ALBUMIN 2.8 g/dl (3.4-5.0); ALK PHOS 79 U/L (45-117); ANION GAP 6 MMOL/L (8-16); BILIRUBIN,TOTAL 0.1 mg/dL (0.2-1); BLOOD UREA NITROGEN 7 mg/dL (7-18); CALCIUM 8.5 mg/dL (8.5-10.1); CHLORIDE 108 mmol/L (98-107); CO2 25 mmol/L (21-32); CREATININE 0.6 mg/dL (0.55-1.3); GLUCOSE,RANDOM 83 mg/dL (74-106); POTASSIUM 3.7 mmol/L (3.5-5.1); SGOT/AST 31 U/L (15-37); SGPT/ALT 38 U/L (13-61); SODIUM 139 mmol/L (136-145); TOT PROT 7.5 g/dl (6.4-8.2)
[2018-09-26 08:47] LABS: INR 1.99 (0.83-1.09); PROTHROMBIN TIME (PATIENT) 23.7 SEC (9.7-13.0)
[2018-09-26 08:49] LABS: ACTIVATED PTT 74.2 SECONDS (25.2-36.5)
[2018-09-26 10:34] LABS: BASO % 0.5 % (0-2.0); EOS % 0.6 % (0-4.5); HEMATOCRIT 37.4 % (32.4-45.2); HEMOGLOBIN 12.6 GM/dL (10.7-15.3); MCH 33.7 pg (25.7-33.7); MCHC 33.6 g/dl (32.0-36.0); MEAN CELL VOLUME 100.4 fl (80-96); MEAN PLT VOLUME 8.6 fl (7.5-11.1); MONO % 4.9 % (3.8-10.2); PLATELET COUNT 351 K/MM3 (134-434); RBC 3.73 M/mm3 (3.60-5.2); WHITE BLOOD COUNT 8.3 K/mm3 (4.0-10.0)
[2018-09-26] MEDS ORDERED: DEXTROSE 5%-WATER 100 ML IVPB ONE (10:56)
[2018-09-26] MEDS: CEFTRIAXONE 2 GM in DEXTROSE 5%-WATER 100 ML IVPB SCH (11:06)
[2018-09-26] MEDS: PANTOPRAZOLE 20 MG TABLET (FP) PO SCH (11:07)
[2018-09-26] MEDS: METOPROLOL TARTRATE 25 MG TABLET (FP) PO SCH ×2 (11:07→22:07)
[2018-09-26] MEDS: SODIUM CHLORIDE 1,000 ML IV SCH (11:07)
[2018-09-26 11:23] LABS: ERYTHROCYTE SEDIMENTATION RATE 88 mm/hr (0-20)
--- NOTE | 2018-09-26 12:55 | PN ---
Progress Note, Physician History of Present Illness: LUQ pain, nausea and emesis improving, fever with chills resolved, no further PSVT on telemetry. - Current Medication List Current Medications: Active Medications Acetaminophen (Tylenol -) 650 mg PO Q6H PRN PRN Reason: Fever Or Pain Heparin Sodium (Porcine) (Heparin -) 1,000 unit IVPUSH PRN PRN PRN Reason: Heparin Heparin Sodium (Porcine) (Heparin -) 5,000 unit IVPUSH PRN PRN PRN Reason: Heparin Sodium Chloride (Normal Saline -) 1,000 mls @ 100 mls/hr IV ASDIR [facility] Last Admin: 09/26/18 11:07 Dose: Not Given Ceftriaxone Sodium 2 gm/ (Dextrose) 100 mls @ 200 mls/hr IVPB DAILY [facility]; Protocol Last Admin: 09/26/18 11:06 Dose: 200 mls/hr Heparin Sodium/Dextrose (Heparin Infusion -) 25,000 units in 500 mls @ 16 mls/ hr IVPB TITR [facility]; Protocol Last Admin: 09/25/18 20:32 Dose: 700 units/hr, 14 mls/hr Metoprolol Tartrate (Lopressor -) 25 mg PO BID [facility] Last Admin: 09/26/18 11:07 Dose: 25 mg Pantoprazole Sodium (Protonix -) 20 mg PO DAILY [facility] Last Admin: 09/26/18 11:07 Dose: 20 mg Warfarin Sodium (Coumadin -) 7.5 mg PO DAILY@1800 [facility] Last Admin: 09/25/18 17:53 Dose: 7.5 mg - Objective Vital Signs: Vital Signs Temperature 98.5 F 09/26/18 06:00 Pulse Rate 72 09/26/18 06:00 Respiratory Rate 18 09/26/18 06:00 Blood Pressure 107/68 09/26/18 06:00 O2 Sat by Pulse Oximetry (%) 98 09/25/18 21:00 Constitutional: Yes: No Distress, Calm, Thin Neck: Yes: Supple Cardiovascular: Yes: Regular Rate and Rhythm Respiratory: Yes: Regular, CTA Bilaterally Gastrointestinal: Yes: Normal Bowel Sounds, Soft Edema: No Labs: CBC, BMP 09/26/18 10:15 09/26/18 06:00 INR, PTT INR 1.99 (0.83-1.09) H 09/26/18 06:00 - ....Imaging EKG: Report Reviewed (Tele: NSR) Problem List - Problems (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 (2) Abnormal CT scan, gastrointestinal tract Code(s): R93.3 - ABNORMAL FINDINGS ON DX IMAGING OF PRT DIGESTIVE TRACT (3) Hypertension Code(s): I10 - ESSENTIAL (PRIMARY) HYPERTENSION Qualifiers: Hypertension type: essential hypertension Qualified Code(s): I10 - Essential (primary) hypertension (4) Old cerebrovascular accident (CVA) without late effect Code(s): Z86.73 - PRSNL HX OF TIA (TIA), AND CEREB INFRC W/O RESID DEFICITS (5) PSVT (paroxysmal supraventricular tachycardia) Code(s): I47.1 - SUPRAVENTRICULAR TACHYCARDIA (6) Fever and chills Code(s): R50.9 - FEVER, UNSPECIFIED Assessment/Plan 09/17/2018 Echo: Normal LV size with borderline cLVH, normal LVEF 60%, normal atrial sizes, mild WA, tr-mild TR, tr MR 1. Splenic infarct, unclear etiology, rule out hypercoagulable state, rule out PAF/no evidence thus far, but reported h/o PAF during another hospital admisson? 2. HTN 3. PSVT->SR 4. Fever PLAN: 1. A/C with Heparin-> Coumadin per INR 2. May benefit from extended ambulatory telemetry monitoring as outpatient/ possible ILR 3. Continue Lopressor 25 bid 4. Avoidance of QT prolonging agents 5. Her culture r/o sepsis, c. diff, on empiric rocephin, f/u repeat abd/pelvic CT 6. Review outside hospital records, if indeed PAF may use NOAC instead of coumadin
--- NOTE | 2018-09-26 13:15 | PN ---
Physical Exam: SUBJECTIVE: Patient seen and examined at bedside- no acute events overnight; patient is very irritated about being in the hospital. still having diarrhea however has not spiked anymore fevers- going for abdominal/pelvis CT scan today OBJECTIVE: Vital Signs Period Temp Pulse Resp BP Sys/Enriquez Pulse Ox Last 24 Hr 98.5 F-99.8 F 72-97 18-20 107-112/61-72 98 GENERAL: The patient is awake, alert, and fully oriented, in no acute distress. EYES: PEERLA; EOMI; no scleral icterus NECK: no JVD; no lymphadenopathy LUNGS: CTA B/l; n rales, rhochi or wheezing. HEART: Regular rate and rhythm, S1, S2 without murmur, rub or gallop. ABDOMEN: Soft, nontender, nondistended, normoactive bowel sounds, no guarding, no rebound, no hepatosplenomegaly, no masses. EXTREMITIES: 2+ pulses, warm, well-perfused, no edema. . PSYCH: Normal mood, normal affect. SKIN: Warm, dry, normal turgor, no rashes or lesions noted Laboratory Results - last 24 hr 09/25/18 09/26/18 09/26/18 17:30 06:00 06:00 WBC RBC Hgb Hct MCV MCH MCHC RDW Plt Count MPV Absolute Neuts (auto) Neutrophils % Lymphocytes % Monocytes % Eosinophils % Basophils % Nucleated RBC % ESR PT with INR 23.70 H INR 1.99 H PTT (Actin FS) 74.2 H Sodium 139 Potassium 3.7 Chloride 108 H Carbon Dioxide 25 Anion Gap 6 L BUN 7 Creatinine 0.6 Creat Clearance w eGFR > 60 Random Glucose 83 Calcium 8.5 Phosphorus 4.0 Magnesium 2.0 Total Bilirubin 0.1 L AST 31 ALT 38 Alkaline Phosphatase 79 Total Protein 7.5 Albumin 2.8 L Urine Color Yellow Urine Appearance Clear Urine pH 7.0 Ur Specific [place] 1.023 Urine Protein Negative Urine Glucose (UA) Negative Urine Ketones Negative Urine Blood Negative Urine Nitrite Negative Urine Bilirubin Negative Urine Urobilinogen Negative Ur Leukocyte Esterase Negative Stool Occult Blood 09/26/18 09/26/18 10:15 11:30 WBC 8.3 RBC 3.73 Hgb 12.6 Hct 37.4 MCV 100.4 H MCH 33.7 MCHC 33.6 RDW 16.0 H Plt Count 351 MPV 8.6 Absolute Neuts (auto) 6.2 Neutrophils % 75.0 Lymphocytes % 19.0 Monocytes % 4.9 Eosinophils % 0.6 Basophils % 0.5 Nucleated RBC % 0 ESR 88 H PT with INR INR PTT (Actin FS) Sodium Potassium Chloride Carbon Dioxide Anion Gap BUN Creatinine Creat Clearance w eGFR Random Glucose Calcium Phosphorus Magnesium Total Bilirubin AST ALT Alkaline Phosphatase Total Protein Albumin Urine Color Urine Appearance Urine pH Ur Specific [place] Urine Protein Urine Glucose (UA) Urine Ketones Urine Blood Urine Nitrite Urine Bilirubin Urine Urobilinogen Ur Leukocyte Esterase Stool Occult Blood Negative Active Medications Generic Name Dose Route Start Last Admin Trade Name Freq PRN Reason Stop Dose Admin Acetaminophen 650 mg 09/25/18 18:41 Tylenol - PO Q6H PRN Fever Or Pain Heparin Sodium (Porcine) 1,000 unit 09/25/18 18:41 Heparin - IVPUSH PRN PRN Heparin Heparin Sodium (Porcine) 5,000 unit 09/25/18 18:41 Heparin - IVPUSH PRN PRN Heparin Sodium Chloride 1,000 mls @ 100 mls/hr 09/25/18 10:00 09/26/18 11:07 Normal Saline - IV Not Given ASDIR [facility] Ceftriaxone Sodium 2 gm/ 100 mls @ 200 mls/hr 09/25/18 17:15 09/26/18 11:06 Dextrose IVPB 200 mls/hr DAILY [facility] Administration Protocol Heparin Sodium/Dextrose 25,000 units in 500 mls @ 16 mls/hr 09/25/18 18:41 20:32 Heparin Infusion - IVPB 700 units/hr TITR KRISTYN 14 mls/hr Administration Protocol 800 UNITS/HR Metoprolol Tartrate 25 mg 09/25/18 10:15 09/26/18 11:07 Lopressor - PO 25 mg BID KRISTYN Administration Pantoprazole Sodium 20 mg 09/21/18 10:00 09/26/18 11:07 Protonix - PO 20 mg DAILY [facility] Administration Warfarin Sodium 5 mg 09/26/18 18:00 Coumadin - PO DAILY@1800 [facility] ASSESSMENT/PLAN: 48F w/ pmhx of CVA (2002), GERD/gastritis, cocaine/marijuana abuse, HTN, depression presented to the ED with complaints of persistent nausea/vomiting # Fever unknown etiology bautista cx CXR ID consulted Tylenol for fever ceftriaxone day 2 # PSVT> SR on Monitor zach from fever vS chronic SVT vs AFIB Cardiolgy recommed switch Norvasc to Lopressor 25 BID cafeteria monitor , might need holter monitor upon DC #Intractable nausea/vomiting;resolved likely 2/2 Cyclical Vomiting syndrome due to marijuana use vs. viral gastroenteritis, r/o colitis. regular diet NS @ 100 for hydration PPI 20 mg daily Avoid QTc prolonging agents EGD with duodenal polyp removed F/U cx #Hypertension; . switch norvasc to Lopressor 25 BID #Splenic INfarct splenic infarct seen on ab/pelvis CT; etiology unclear clarified with radiologist it seems to be more chronic rather than acute obtaining records from [facility] regarding patients remote history of afib anti sm positive- rhuem consulted Dr Consuelo graham onc consulted recommend warfarin echo normal cardio consulted recommend NOAC if AFIB is confirmed bridging heparin with coumadin- will likely switch over tomorrow #UTI resolved abx completed #Hx of Polysubstance abuse (alcohol/cocaine/marijuana) Drug cessation counseling # Dispo: Monitor on TElLE Problem List - Problems (1) Abnormal CT scan, gastrointestinal tract Code(s): R93.3 - ABNORMAL FINDINGS ON DX IMAGING OF PRT DIGESTIVE TRACT (2) Intractable vomiting with nausea Code(s): R11.2 - NAUSEA WITH VOMITING, UNSPECIFIED Qualifiers: Vomiting type: unspecified Qualified Code(s): R11.2 - Nausea with vomiting , unspecified (3) Hypertension Code(s): I10 - ESSENTIAL (PRIMARY) HYPERTENSION Qualifiers: Hypertension type: essential hypertension Qualified Code(s): I10 - Essential (primary) hypertension Visit type - Emergency Visit Emergency Visit: Yes ED Registration Date: 09/15/18 Care time: The patient presented to the Emergency Department on the above date and was hospitalized for further evaluation of their emergent condition. - New Patient This patient is new to me today: No - Critical Care Critical Care patient: No
[2018-09-26] MEDS ORDERED: WARFARIN NA 5 MG TABLET (UD) PO SCH (18:00)
--- NOTE | 2018-09-26 19:29 | PN ---
Teaching Attending Note Name of Resident: Nalini Farrar ATTENDING PHYSICIAN STATEMENT I saw and evaluated the patient. I reviewed the resident's note and discussed the case with the resident. I agree with the resident's findings and plan as documented. SUBJECTIVE: Patient is feeling better, no further fever. OBJECTIVE: Vital Signs Temperature 98.3 F 09/26/18 13:30 Pulse Rate 71 09/26/18 13:30 Respiratory Rate 18 09/26/18 13:30 Blood Pressure 107/74 09/26/18 13:30 O2 Sat by Pulse Oximetry (%) 100 09/26/18 09:00 GENERAL: AAOx3. NAD. HEENT: AT/NC. EOMI. JOSE. MMM. NECK: Normal range of motion, supple without lymphadenopathy, JVD, or masses. LUNGS: CTA B/L. No wheezes or crackles noted. HEART: RRR, Normal S1, S2. No murmurs noted. ABDOMEN: Soft, NT, NR, No masses ecchymoses noted. positive for BS. MUSCULOSKELETAL: Normal ROM at all joints. No bony deformities or tenderness. No CVA tenderness. EXTREMITIES: 2+ pulses, warm, well-perfused. No cyanosis. No clubbing. No peripheral edema. NEUROLOGICAL: Normal speech. Facial muscles intact. No facial droop. 5/5 muscle strength b/l. CBCD WBC 8.3 K/mm3 (4.0-10.0) 09/26/18 10:15 RBC 3.73 M/mm3 (3.60-5.2) 09/26/18 10:15 Hgb 12.6 GM/dL (10.7-15.3) 09/26/18 10:15 Hct 37.4 % (32.4-45.2) 09/26/18 10:15 MCV 100.4 fl (80-96) H 09/26/18 10:15 MCHC 33.6 g/dl (32.0-36.0) 09/26/18 10:15 RDW 16.0 % (11.6-15.6) H 09/26/18 10:15 Plt Count 351 K/MM3 (134-434) 09/26/18 10:15 MPV 8.6 fl (7.5-11.1) 09/26/18 10:15 CMP Sodium 139 mmol/L (136-145) 09/26/18 06:00 Potassium 3.7 mmol/L (3.5-5.1) 09/26/18 06:00 Chloride 108 mmol/L (98-107) H 09/26/18 06:00 Carbon Dioxide 25 mmol/L (21-32) 09/26/18 06:00 Anion Gap 6 MMOL/L (8-16) L 09/26/18 06:00 BUN 7 mg/dL (7-18) 09/26/18 06:00 Creatinine 0.6 mg/dL (0.55-1.3) 09/26/18 06:00 Creat Clearance w eGFR > 60 (>60) 09/26/18 06:00 Random Glucose 83 mg/dL (74-106) 09/26/18 06:00 Calcium 8.5 mg/dL (8.5-10.1) 09/26/18 06:00 Total Bilirubin 0.1 mg/dL (0.2-1) L 09/26/18 06:00 AST 31 U/L (15-37) 09/26/18 06:00 ALT 38 U/L (13-61) 09/26/18 06:00 Alkaline Phosphatase 79 U/L (45-117) 09/26/18 06:00 Total Protein 7.5 g/dl (6.4-8.2) 09/26/18 06:00 Albumin 2.8 g/dl (3.4-5.0) L 09/26/18 06:00 Current Medications Generic Name Dose Route Start Last Admin Trade Name Freq PRN Reason Stop Dose Admin Acetaminophen 650 mg 09/25/18 18:41 Tylenol - PO Q6H PRN Fever Or Pain Heparin Sodium (Porcine) 1,000 unit 09/25/18 18:41 Heparin - IVPUSH PRN PRN Heparin Heparin Sodium (Porcine) 5,000 unit 09/25/18 18:41 Heparin - IVPUSH PRN PRN Heparin Sodium Chloride 1,000 mls @ 100 mls/hr 09/25/18 10:00 09/26/18 11:07 Normal Saline - IV Not Given ASDIR KRISTYN Ceftriaxone Sodium 2 gm/ 100 mls @ 200 mls/hr 09/25/18 17:15 09/26/18 11:06 Dextrose IVPB 200 mls/hr DAILY KRISTYN Administration Protocol Heparin Sodium/Dextrose 25,000 units in 500 mls @ 16 mls/hr 09/25/18 18:41 20:32 Heparin Infusion - IVPB 700 units/hr TITR KRISTYN 14 mls/hr Administration Protocol 800 UNITS/HR Metoprolol Tartrate 25 mg 09/25/18 10:15 09/26/18 11:07 Lopressor - PO 25 mg BID KRISTYN Administration Pantoprazole Sodium 20 mg 09/21/18 10:00 09/26/18 11:07 Protonix - PO 20 mg DAILY KRISTYN Administration Warfarin Sodium 5 mg 09/26/18 18:00 09/26/18 18:09 Coumadin - PO 5 mg DAILY@1800 KRISTYN Administration Home Medications Medication Instructions Recorded NK [No Known Home Medication] 09/18/18 CT/ABDOMEN PELVIS CT WITH CONTR Clinical history: Fever. Rule out abdominal infection in 48-year-old female. Comparison: CT 05/09/10. Contiguous transaxial images were obtained from the diaphragmatic domes and pubic symphysis without the administration of oral and after IV contrast. Sagittal and coronal reconstructions were performed. Lung bases: Negative. Bone: Negative. Liver: There is a fatty liver. Gallbladder: Small gallstone. Biliary tree: Negative. Spleen: Hypodense anterior third of the spleen which could represent an infarct. Pancreas: Negative. Adrenals: Negative. Kidneys: Right kidney shows focally hypodense area with posterior lateral bulge. This could represent a focus of infection but a mass cannot be excluded. Additional evaluation is suggested. The left kidney and demonstrate a complex hypodense lesion also posterior laterally in this can as well be evaluated with sonography. Pelvis: Negative. Bowel: 9 mm appendix with enhancement. Rule out acute appendicitis. Other: Hiatal hernia. Umbilical hernia with fat and nondistended transverse colon. Impression: Dilated appendix. Rule out appendicitis. Suggest surgical consult. Complex lesions in both kidneys which ultrasound is suggested. Anterior splenic infarct. Fatty liver. Small gallstone. Other findings as above. The study was initially read by Isabel. Reported By: Landry Varela MD 09/15/18 1036 Technique: Multi sequential MRI of the abdomen was obtained in multiple planes before and after the administration of 12 cc of Gadavist. Findings: The visualized lung bases are grossly unremarkable. The liver demonstrates normal signal intensity. No gross restricted diffusion noted within the liver. Probable tiny flash filling hemangiomas noted within the liver. The hepatic veins are patent. The portal vein is patent. Contracted gallbladder noted containing multiple polyps/stones. No intrahepatic or extrahepatic biliary ductal dilatation. No pancreatic ductal dilatation. No pancreatic mass. The splenic vein remains patent. There is a 1.6 cm high T2 signal lesion involving the periphery of the inferior pole of the spleen demonstrating no enhancement on the postcontrast imaging. No gross restricted diffusion noted. Gastroesophageal reflux noted. Nonspecific periportal lymph nodes. The adrenals are unremarkable. The kidneys demonstrate symmetric enhancement with no contour deforming mass or hydronephrosis. The abdominal aorta demonstrates normal caliber. No enlarged retroperitoneal lymph nodes. Impression: 1.6 cm wedge- shaped focus of abnormal signal and enhancement involving the inferior pole of the spleen. This could represent an old infarct versus a benign cyst/slow filling hemangioma. Reported By: Raul Breen MD 09/22/18 1315 Esophagram, upper GI series. Under fluoroscopic observation, patient swallowed barium ingested effervescent granules Findings. The esophagus demonstrates normal swallowing mechanism and normal peristaltic activity. No abnormal dilatation of esophagus is noted and no stricture is seen. No evidence of Zenker 's diverticulum, cricopharyngeal impression. No gastroesophageal reflux observed. No evidence of hiatal hernia. Patient swallow 1.3 cm barium pill with normal passage of the portal into the stomach. Distended stomach, mixture of barium food particles. Stasis of barium in distended stomach, limited peristalsis of the stomach. Under fluoroscopic observation, small amount of barium is seen in the nondistended duodenal bulb. On delayed overhead x -rays, barium is seen in the duodenal bulb, duodenal sweep, nondistended proximal jejunum. Normal contour of the stomach. No gastric ulcer is seen. No evidence of duodenal bulb ulcer. The gastric mucosa cannot be adequately evaluated Impression. No evidence of Zenker's diverticulum, hiatal hernia. No gastroesophageal reflux observed during the examination. No evidence of abnormal dilatation of the esophagus, or esophageal stricture. Distended stomach , mixture of barium food particles. Stasis of barium in distended stomach. Limited peristalsis of the stomach. Under fluoroscopic observation, small amount of barium is seen in the nondistended duodenal bulb. On delayed overhead x -rays, barium is seen in the duodenal bulb, duodenal sweep, nondistended proximal jejunum. Nuclear medicine gastric emptying study may be considered. No gastric ulcer is seen. No evidence of duodenal bulb ulcer. The gastric mucosa cannot be adequately evaluated. Endoscopy may be considered for further evaluation Reported By: Yoni Ewing MD 09/19/18 1024 Doppler evaluation of hepatic and splenic vasculature demonstrates patency of the portal venous and hepatic venous systems. The splenic vein is also widely patent with normal venous flow documented throughout this vessel. The spleen is normal in size measuring 8.5 x 3.3 x 8.1 cm. IMPRESSION: 1. Patent hepatic vasculature. 2. No evidence of splenomegaly or splenic vein thrombosis. ORIGINAL REPORT HISTORY PROVIDED: Follow-up to CT. Real time examination of the kidneys demonstrates the following: The kidneys are normal in size with the right kidney measuring 10.4 x 6.0 x 4.4 cm and the left kidney measuring 10.3 x 5.4 x 5.4 cm. They are normal in position and texture with no evidence of hydronephrosis or contour deforming renal masses. There is a small cyst within the lower pole of the left kidney measuring 1.3 x 1.0 x 0.8 cm. Additional possible lesions noted on a recent CT scan could not be identified. IMPRESSION: Small left renal cyst, otherwise normal renal sonogram. Please see above discussion. ASSESSMENT AND PLAN: Patient is a 48yo female with PMHx of CVA, HTN, GERD, depression and anxiety, cocaine and marijuana use , who presented with N/V and abdominal pain. She was found to have splenic infarct. # Fever improved , panculture no growth so far, will continue Rocephin IV , ID on the case. Most likely the source is the urine, will monitor the Ucx # Splenic infarct. MRI findings:The splenic finding is consistent with infarct , not hemangioma or cyst. continue heparin bridging with coumadin 7.5mg tonight , inr 1.08--> 1.44--> 1.9 today reduced the dose of coumadin to 5mg from 7.5mg , will monitor . hypercoagulable w/u : in process and need to be repeated w/u in 3 months, Dr. Cordero for consult for possible Lupus # N/V s/p EGD with duodenal polyp was removed, follow Bx. On protonix continue # UTI. completed 7 days of Ceftriaxone , post having fever , restarted iv Rocephin, no growth so far. # R renal cyst. As per urologist Dr. ragsdale ; benign simple cyst. No suspicious of renal masses seen on MRI and US in follow up of CT scan report. No further treatment recommended at this time. # Appendix enlargement. follow up with repeat imaging as out pt . then if persistent then surgical evaluation # HTN :cont norvasc #Hx of A fib: as per patient .obtain records form [facility] Declined Hep A immunization
[2018-09-26] MEDS: ACETAMINOPHEN 325 MG TABLET (FP) PO PRN (22:11)
--- NOTE | 2018-09-27 08:27 | PN ---
Progress Note, Physician Chief Complaint: no new complaints - states she is doing ok - ate a full breakfast denies diarrhea -- limited HPI pt does not feel like answering questions - Current Medication List Current Medications: Active Medications Acetaminophen (Tylenol -) 650 mg PO Q6H PRN PRN Reason: Fever Or Pain Last Admin: 09/26/18 22:11 Dose: 650 mg Heparin Sodium (Porcine) (Heparin -) 1,000 unit IVPUSH PRN PRN PRN Reason: Heparin Heparin Sodium (Porcine) (Heparin -) 5,000 unit IVPUSH PRN PRN PRN Reason: Heparin Sodium Chloride (Normal Saline -) 1,000 mls @ 100 mls/hr IV ASDIR [facility] Last Admin: 09/26/18 11:07 Dose: Not Given Ceftriaxone Sodium 2 gm/ (Dextrose) 100 mls @ 200 mls/hr IVPB DAILY [facility]; Protocol Last Admin: 09/26/18 11:06 Dose: 200 mls/hr Heparin Sodium/Dextrose (Heparin Infusion -) 25,000 units in 500 mls @ 16 mls/ hr IVPB TITR [facility]; Protocol Last Admin: 09/25/18 20:32 Dose: 700 units/hr, 14 mls/hr Metoprolol Tartrate (Lopressor -) 25 mg PO BID [facility] Last Admin: 09/26/18 22:07 Dose: 25 mg Pantoprazole Sodium (Protonix -) 20 mg PO DAILY [facility] Last Admin: 09/26/18 11:07 Dose: 20 mg Warfarin Sodium (Coumadin -) 5 mg PO DAILY@1800 [facility] Last Admin: 09/26/18 18:09 Dose: 5 mg - Objective Vital Signs: Vital Signs Temperature 98.1 F 09/26/18 22:41 Pulse Rate 74 09/26/18 22:41 Respiratory Rate 18 09/26/18 22:41 Blood Pressure 110/75 09/26/18 22:41 O2 Sat by Pulse Oximetry (%) 100 09/26/18 21:00 Constitutional: Yes: Well Nourished, No Distress, Calm Eyes: Yes: WNL HENT: Yes: WNL Neck: Yes: WNL Cardiovascular: Yes: WNL, Regular Rate and Rhythm Respiratory: Yes: WNL, Regular, CTA Bilaterally Gastrointestinal: Yes: WNL, Normal Bowel Sounds, Soft Edema: No Labs: CBC, BMP 09/26/18 10:15 09/26/18 06:00 INR, PTT INR 1.99 (0.83-1.09) H 09/26/18 06:00 Problem List - Problems (1) Abdominal pain Assessment/Plan: Ct scan reviewed - no acute pathology (steatosis) stool studies negative for c,diff - diet as tolerated - PPI therapy Code(s): R10.9 - UNSPECIFIED ABDOMINAL PAIN (2) Fever and chills Code(s): R50.9 - FEVER, UNSPECIFIED
--- NOTE | 2018-09-27 08:33 | PN ---
Progress Note (short form) - Note Progress Note: Chief Complaint: Events noted, notes reviewed, denies any chest pain or dyspnea History of Present Illness: Seen and examined on telemetry. Events noted, notes reviewed, denies any chest pain or dyspnea Echocardiography dated 09/17/18 revealed borderline LVH with normal LV function, LVEF 60%, trace MR - Current Medication List Current Medications: Current Medications Acetaminophen (Tylenol -) 650 mg PO Q6H PRN PRN Reason: Fever Or Pain Last Admin: 09/27/18 09:39 Dose: 650 mg Heparin Sodium (Porcine) (Heparin -) 1,000 unit IVPUSH PRN PRN PRN Reason: Heparin Heparin Sodium (Porcine) (Heparin -) 5,000 unit IVPUSH PRN PRN PRN Reason: Heparin Sodium Chloride (Normal Saline -) 1,000 mls @ 100 mls/hr IV ASDIR [facility] Last Admin: 09/26/18 11:07 Dose: Not Given Ceftriaxone Sodium 2 gm/ (Dextrose) 100 mls @ 200 mls/hr IVPB DAILY [facility]; Protocol Last Admin: 09/27/18 09:40 Dose: 200 mls/hr Heparin Sodium/Dextrose (Heparin Infusion -) 25,000 units in 500 mls @ 16 mls/ hr IVPB TITR [facility]; Protocol Last Admin: 09/25/18 20:32 Dose: 700 units/hr, 14 mls/hr Metoprolol Tartrate (Lopressor -) 25 mg PO BID [facility] Last Admin: 09/27/18 09:38 Dose: 25 mg Pantoprazole Sodium (Protonix -) 20 mg PO DAILY [facility] Last Admin: 09/27/18 09:39 Dose: 20 mg Warfarin Sodium (Coumadin -) 5 mg PO DAILY@1800 [facility] Last Admin: 09/26/18 18:09 Dose: 5 mg Review of Systems Cardiovascular: As noted above Respiratory: denies: As noted above Gastrointestinal: denies: Nausea, Vomiting, Diarrhea, Constipation or Abdominal Discomfort Musculoskeletal: No Symptoms Reported Endocrine: No Symptoms Reported - Objective Vital Signs: Last Vital Signs Temp Pulse Resp BP Pulse Ox 98.1 F 74 18 110/75 100 09/26/18 22:41 09/26/18 22:41 09/26/18 22:41 09/26/18 22:41 09/26/18 21:00 Intake & Output 02/27/09/25/18 09/26/18 09/27/18 23:59 23:59 23:59 23:59 Intake Total 0131 061 2657 1254 Balance 8034 093 8402 1254 Constitutional: No Distress, Calm, Thin Neck: Supple Negative JVD Cardiovascular: S1 S2 Regular Rate and Rhythm Respiratory: Clear to A&P Bilaterally Gastrointestinal: Soft Benign Normal Bowel Sounds Ext: No Edema Labs: CBC, BMP 09/26/18 10:15 09/26/18 06:00 Hepatic Panel Total Bilirubin 0.1 mg/dL (0.2-1) L 09/26/18 06:00 AST 31 U/L (15-37) 09/26/18 06:00 ALT 38 U/L (13-61) 09/26/18 06:00 Alkaline Phosphatase 79 U/L (45-117) 09/26/18 06:00 Albumin 2.8 g/dl (3.4-5.0) L 09/26/18 06:00 Assessment/Plan ASSESSMENT: 1. Splenic infarct, unclear etiology, rule out hypercoagulable state, rule out PAF/no evidence thus far 2. HTN 3. Prolonged QT resolved 4. Episode of Mobitz 1 AV block/Wenchebach PLAN: 1. A/C with Heparin and Coumadin as per INR 2. As outlined in proir note may benefit from extended ambulatory telemetry monitoring as outpatient/possible ILR 3. Continue Norvasc 4. As outlined avoidance of QT prolonging agents Jian Bales MD
[2018-09-27] MEDS ORDERED: DEXTROSE 5%-WATER 100 ML IVPB ONE (09:31)
[2018-09-27] MEDS: METOPROLOL TARTRATE 25 MG TABLET (FP) PO SCH ×2 (09:38→21:09)
[2018-09-27] MEDS: PANTOPRAZOLE 20 MG TABLET (FP) PO SCH (09:39)
[2018-09-27] MEDS: ACETAMINOPHEN 325 MG TABLET (FP) PO PRN ×2 (09:39→16:39)
[2018-09-27] MEDS: CEFTRIAXONE 2 GM in DEXTROSE 5%-WATER 100 ML IVPB SCH (09:40)
[2018-09-27 11:26] LABS: HEMATOCRIT 32.9 % (32.4-45.2); HEMOGLOBIN 11.1 GM/dL (10.7-15.3); MCH 33.5 pg (25.7-33.7); MCHC 33.7 g/dl (32.0-36.0); MEAN CELL VOLUME 99.3 fl (80-96); MEAN PLT VOLUME 8.8 fl (7.5-11.1); PLATELET COUNT 331 K/MM3 (134-434); RBC 3.31 M/mm3 (3.60-5.2)
[2018-09-27 11:40] LABS: INR 1.89 (0.83-1.09); PROTHROMBIN TIME (PATIENT) 22.4 SEC (9.7-13.0)
[2018-09-27] MEDS: SODIUM CHLORIDE 1,000 ML IV SCH ×2 (11:50→16:35)
[2018-09-27 11:54] LABS: ALK PHOS 86 U/L (45-117); ANION GAP 8 MMOL/L (8-16); BILIRUBIN,TOTAL 0.1 mg/dL (0.2-1); BLOOD UREA NITROGEN 5 mg/dL (7-18); CALCIUM 8.7 mg/dL (8.5-10.1); CHLORIDE 107 mmol/L (98-107); CO2 24 mmol/L (21-32); CREATININE 0.6 mg/dL (0.55-1.3); GLUCOSE,RANDOM 77 mg/dL (74-106); PHOSPHOROUS 3.2 mg/dL (2.5-4.9); POTASSIUM 3.6 mmol/L (3.5-5.1); SGOT/AST 32 U/L (15-37); SGPT/ALT 35 U/L (13-61); SODIUM 139 mmol/L (136-145)
[2018-09-27] MEDS: WARFARIN NA 7.5 MG TABLET (FP) PO SCH (18:42)
--- NOTE | 2018-09-27 20:09 | PN ---
Progress Note (short form) - Note Progress Note: Vital Signs Temperature 98.3 F 09/27/18 18:02 Pulse Rate 76 09/27/18 18:02 Respiratory Rate 18 09/27/18 18:02 Blood Pressure 135/73 09/27/18 18:02 O2 Sat by Pulse Oximetry (%) 100 09/27/18 09:00 GENERAL: AAOx3. NAD. HEENT: AT/NC. EOMI. JOSE. MMM. NECK: Normal range of motion, supple without lymphadenopathy, JVD, or masses. LUNGS: CTA B/L. No wheezes or crackles noted. HEART: RRR, Normal S1, S2. No murmurs noted. ABDOMEN: Soft, NT, NR, No masses ecchymoses noted. positive for BS. MUSCULOSKELETAL: Normal ROM at all joints. No bony deformities or tenderness. No CVA tenderness. EXTREMITIES: 2+ pulses, warm, well-perfused. No cyanosis. No clubbing. No peripheral edema. NEUROLOGICAL: Normal speech. Facial muscles intact. No facial droop. 5/5 muscle strength b/l. CBCD WBC 5.0 K/mm3 (4.0-10.0) 09/27/18 11:00 RBC 3.31 M/mm3 (3.60-5.2) L 09/27/18 11:00 Hgb 11.1 GM/dL (10.7-15.3) 09/27/18 11:00 Hct 32.9 % (32.4-45.2) 09/27/18 11:00 MCV 99.3 fl (80-96) H 09/27/18 11:00 MCHC 33.7 g/dl (32.0-36.0) 09/27/18 11:00 RDW 16.0 % (11.6-15.6) H 09/27/18 11:00 Plt Count 331 K/MM3 (134-434) 09/27/18 11:00 MPV 8.8 fl (7.5-11.1) 09/27/18 11:00 CMP Sodium 139 mmol/L (136-145) 09/27/18 11:00 Potassium 3.6 mmol/L (3.5-5.1) 09/27/18 11:00 Chloride 107 mmol/L (98-107) 09/27/18 11:00 Carbon Dioxide 24 mmol/L (21-32) 09/27/18 11:00 Anion Gap 8 MMOL/L (8-16) 09/27/18 11:00 BUN 5 mg/dL (7-18) L 09/27/18 11:00 Creatinine 0.6 mg/dL (0.55-1.3) 09/27/18 11:00 Creat Clearance w eGFR > 60 (>60) 09/27/18 11:00 Random Glucose 77 mg/dL (74-106) 09/27/18 11:00 Calcium 8.7 mg/dL (8.5-10.1) 09/27/18 11:00 Total Bilirubin 0.1 mg/dL (0.2-1) L 09/27/18 11:00 AST 32 U/L (15-37) 09/27/18 11:00 ALT 35 U/L (13-61) 09/27/18 11:00 Alkaline Phosphatase 86 U/L (45-117) 09/27/18 11:00 Total Protein 8.0 g/dl (6.4-8.2) 09/27/18 11:00 Albumin 3.0 g/dl (3.4-5.0) L 09/27/18 11:00 Current Medications Generic Name Dose Route Start Last Admin Trade Name Freq PRN Reason Stop Dose Admin Acetaminophen 650 mg 09/25/18 18:41 09/27/18 16:39 Tylenol - PO 650 mg Q6H PRN Administration Fever Or Pain Heparin Sodium (Porcine) 1,000 unit 09/25/18 18:41 Heparin - IVPUSH PRN PRN Heparin Heparin Sodium (Porcine) 5,000 unit 09/25/18 18:41 Heparin - IVPUSH PRN PRN Heparin Sodium Chloride 1,000 mls @ 100 mls/hr 09/25/18 10:00 09/27/18 16:35 Normal Saline - IV 100 mls/hr ASDIR KRISTYN Administration Ceftriaxone Sodium 2 gm/ 100 mls @ 200 mls/hr 09/25/18 17:15 09/27/18 09:40 Dextrose IVPB 200 mls/hr DAILY KRISTYN Administration Protocol Heparin Sodium/Dextrose 25,000 units in 500 mls @ 16 mls/hr 09/25/18 18:41 19:27 Heparin Infusion - IVPB 650 units/hr TITR KRISTYN 13 mls/hr Titration Protocol 800 UNITS/HR Metoprolol Tartrate 25 mg 09/25/18 10:15 09/27/18 09:38 Lopressor - PO 25 mg BID KRISTYN Administration Pantoprazole Sodium 20 mg 09/21/18 10:00 09/27/18 09:39 Protonix - PO 20 mg DAILY KRISTYN Administration Warfarin Sodium 7.5 mg 09/27/18 13:38 09/27/18 18:42 Coumadin - PO 7.5 mg DAILY@1800 KRISTYN Administration Home Medications Medication Instructions Recorded NK [No Known Home Medication] 09/18/18 Microbiology 09/25/18 12:40 Blood - Peripheral Venous Blood Culture - Preliminary NO GROWTH OBTAINED AFTER 48 HOURS, INCUBATION TO CONTINUE FOR 3 DAYS. 09/25/18 12:49 Blood - Peripheral Venous Blood Culture - Preliminary NO GROWTH OBTAINED AFTER 48 HOURS, INCUBATION TO CONTINUE FOR 3 DAYS. 09/25/18 17:30 Urine - Urine Clean Catch Urine Culture - Final Contaminated: Please Repeat 09/26/18 11:30 Stool Clostridium difficile Antigen (VENKATA) - Final 09/26/18 11:30 Stool Clostridium difficile Toxin Assay - Final 09/14/18 16:45 Urine - Urine Clean Catch Urine Culture - Final Escherichia Coli ASSESSMENT AND PLAN: Patient is a 48yo female with PMHx of CVA, HTN, GERD, depression and anxiety, cocaine and marijuana use , who presented with N/V and abdominal pain. She was found to have splenic infarct. # Fever: No further fever , panculture no growth so far, will continue Rocephin IV , ID on the case. Most likely the source is the urine, will monitor the Ucx # Splenic infarct. MRI findings:The splenic finding is consistent with infarct , not hemangioma or cyst. continue heparin bridging with coumadin 7.5mg tonight , inr 1.08--> 1.44--> 1.9-->1.[address] her back to 7.5mg , will monitor . hypercoagulable w/u : in process and need to be repeated w/u in 3 months, Dr. Cordero for consult for possible Lupus # 1st degree Mobitz as per : will reduce the dose of Lopressor to 12.5mg bid and will monitor. # N/V s/p EGD with duodenal polyp was removed, follow Bx. On protonix continue # UTI. completed 7 days of Ceftriaxone , post having fever , restarted iv Rocephin, no growth so far. # R renal cyst. As per urologist Dr. ragsdale ; benign simple cyst. No suspicious of renal masses seen on MRI and US in follow up of CT scan report. No further treatment recommended at this time. # Appendix enlargement. follow up with repeat imaging as out pt . then if persistent then surgical evaluation # HTN :on Lopressor will reduce the dose and will restart low dose norvasc 2.5mg #Hx of A fib: as per patient [facility] A [facility] Visit type - Emergency Visit Emergency Visit: Yes ED Registration Date: 09/15/18 Care time: The patient presented to the Emergency Department on the above date and was hospitalized for further evaluation of their emergent condition. - New Patient This patient is new to me today: No - Critical Care Critical Care patient: No - Discharge Referral Referred to [facility] Med P.C.: No
[2018-09-28] MEDS: HEPARIN INFUSION - 25,000 UNITS/500 ML INFUS.BAG IVPB SCH ×2 (05:26→05:27)
--- NOTE | 2018-09-28 07:53 | PN ---
Progress Note (short form) - Note Progress Note: Chief Complaint: Events noted, notes reviewed, denies any chest pain or dyspnea History of Present Illness: Seen and examined on telemetry. Events noted, notes reviewed, denies any chest pain or dyspnea Await AM INR, Heparin/Coumadin Echocardiography dated 09/17/18 revealed borderline LVH with normal LV function, LVEF 60%, trace MR - Current Medication List Current Medications: Current Medications Acetaminophen (Tylenol -) 650 mg PO Q6H PRN PRN Reason: Fever Or Pain Last Admin: 09/27/18 16:39 Dose: 650 mg Amlodipine Besylate (Norvasc -) 2.5 mg PO DAILY [facility] Heparin Sodium (Porcine) (Heparin -) 1,000 unit IVPUSH PRN PRN PRN Reason: Heparin Heparin Sodium (Porcine) (Heparin -) 5,000 unit IVPUSH PRN PRN PRN Reason: Heparin Sodium Chloride (Normal Saline -) 1,000 mls @ 100 mls/hr IV ASDIR [facility] Last Admin: 09/27/18 16:35 Dose: 100 mls/hr Ceftriaxone Sodium 2 gm/ (Dextrose) 100 mls @ 200 mls/hr IVPB DAILY [facility]; Protocol Last Admin: 09/27/18 09:40 Dose: 200 mls/hr Heparin Sodium/Dextrose (Heparin Infusion -) 25,000 units in 500 mls @ 16 mls/ hr IVPB TITR [facility]; Protocol Last Admin: 09/28/18 05:27 Dose: 650 units/hr, 13 mls/hr Metoprolol Tartrate (Lopressor -) 12.5 mg PO BID [facility] Last Admin: 09/27/18 21:09 Dose: 12.5 mg Pantoprazole Sodium (Protonix -) 20 mg PO DAILY [facility] Last Admin: 09/27/18 09:39 Dose: 20 mg Warfarin Sodium (Coumadin -) 7.5 mg PO DAILY@1800 [facility] Last Admin: 09/27/18 18:42 Dose: 7.5 mg Review of Systems Cardiovascular: As noted above Respiratory: denies: As noted above Gastrointestinal: denies: Nausea, Vomiting, Diarrhea, Constipation or Abdominal Discomfort Musculoskeletal: No Symptoms Reported Endocrine: No Symptoms Reported - Objective Vital Signs: Last Vital Signs Temp Pulse Resp BP Pulse Ox 98.0 F 66 18 121/77 100 09/28/18 06:00 09/28/18 06:00 09/28/18 06:00 09/28/18 06:00 09/27/18 21:00 Intake & Output 09/25/18 09/26/18 09/27/18 09/28/18 23:59 23:59 23:59 23:59 Intake Total 890 3146 3056 Balance 890 3146 3056 Constitutional: No Distress, Calm, Thin Neck: Supple Negative JVD Cardiovascular: S1 S2 Regular Rate and Rhythm Respiratory: Clear to A&P Bilaterally Gastrointestinal: Soft Benign Normal Bowel Sounds Ext: No Edema Labs: CBC, BMP 09/27/18 11:00 09/27/18 11:00 Hepatic Panel Total Bilirubin 0.1 mg/dL (0.2-1) L 09/27/18 11:00 AST 32 U/L (15-37) 09/27/18 11:00 ALT 35 U/L (13-61) 09/27/18 11:00 Alkaline Phosphatase 86 U/L (45-117) 09/27/18 11:00 Albumin 3.0 g/dl (3.4-5.0) L 09/27/18 11:00 INR, PTT INR 1.89 (0.83-1.09) H 09/27/18 11:00 Assessment/Plan ASSESSMENT: 1. Splenic infarct, unclear etiology, rule out hypercoagulable state, rule out PAF/no evidence thus far additional evaluation as outpatient 2. HTN 3. Prolonged QT, resolved 4. Episode of Mobitz 1 AV block/[place], resolved PLAN: 1. A/C with Heparin and Coumadin as per INR 2. As outlined in prior notes may benefit from extended ambulatory telemetry monitoring as outpatient/possible ILR 3. Continue Norvasc 4. As outlined in prior notes avoidance of QT prolonging agents Jian Bales MD
[2018-09-28] MEDS ORDERED: DEXTROSE 5%-WATER 100 ML IVPB ONE (09:19)
[2018-09-28] MEDS: PANTOPRAZOLE 20 MG TABLET (FP) PO SCH (09:27)
[2018-09-28] MEDS: METOPROLOL TARTRATE 25 MG TABLET (FP) PO SCH (09:27)
[2018-09-28] MEDS: CEFTRIAXONE 2 GM in DEXTROSE 5%-WATER 100 ML IVPB SCH (09:28)
[2018-09-28] MEDS: ACETAMINOPHEN 325 MG TABLET (FP) PO PRN (09:29)
[2018-09-28] MEDS ORDERED: amLODIPine BESYLATE 5 MG TABLET (FP) PO SCH (10:00)
[2018-09-28] MEDS ORDERED: amLODIPine BESYLATE 2.5 MG TABLET (FP) PO SCH (10:00)
[2018-09-28 11:54] LABS: INR 2.19 (0.83-1.09)
--- NOTE | 2018-09-28 13:58 | PN ---
Teaching Attending Note Name of Resident: Emre Etienne ATTENDING PHYSICIAN STATEMENT I saw and evaluated the patient. I reviewed the resident's note and discussed the case with the resident. I agree with the resident's findings and plan as documented. SUBJECTIVE: Patient is feeling well, will discharge home with follow up visit with the clinic OBJECTIVE: Vital Signs Temperature 98.3 F 09/28/18 10:00 Pulse Rate 86 09/28/18 10:00 Respiratory Rate 18 09/28/18 10:00 Blood Pressure 113/75 09/28/18 10:00 O2 Sat by Pulse Oximetry (%) 100 09/28/18 10:00 GENERAL: AAOx3. NAD. HEENT: AT/NC. EOMI. JOSE. MMM. NECK: Normal range of motion, supple without lymphadenopathy, JVD, or masses. LUNGS: CTA B/L. No wheezes or crackles noted. HEART: RRR, Normal S1, S2. No murmurs noted. ABDOMEN: Soft, NT, NR, No masses ecchymoses noted. positive for BS. MUSCULOSKELETAL: Normal ROM at all joints. No bony deformities or tenderness. No CVA tenderness. EXTREMITIES: 2+ pulses, warm, well-perfused. No cyanosis. No clubbing. No peripheral edema. NEUROLOGICAL: Normal speech. Facial muscles intact. No facial droop. 5/5 muscle strength b/l. CBCD WBC 5.0 K/mm3 (4.0-10.0) 09/27/18 11:00 RBC 3.31 M/mm3 (3.60-5.2) L 09/27/18 11:00 Hgb 11.1 GM/dL (10.7-15.3) 09/27/18 11:00 Hct 32.9 % (32.4-45.2) 09/27/18 11:00 MCV 99.3 fl (80-96) H 09/27/18 11:00 MCHC 33.7 g/dl (32.0-36.0) 09/27/18 11:00 RDW 16.0 % (11.6-15.6) H 09/27/18 11:00 Plt Count 331 K/MM3 (134-434) 09/27/18 11:00 MPV 8.8 fl (7.5-11.1) 09/27/18 11:00 CMP Sodium 139 mmol/L (136-145) 09/27/18 11:00 Potassium 3.6 mmol/L (3.5-5.1) 09/27/18 11:00 Chloride 107 mmol/L (98-107) 09/27/18 11:00 Carbon Dioxide 24 mmol/L (21-32) 09/27/18 11:00 Anion Gap 8 MMOL/L (8-16) 09/27/18 11:00 BUN 5 mg/dL (7-18) L 09/27/18 11:00 Creatinine 0.6 mg/dL (0.55-1.3) 09/27/18 11:00 Creat Clearance w eGFR > 60 (>60) 09/27/18 11:00 Random Glucose 77 mg/dL (74-106) 09/27/18 11:00 Calcium 8.7 mg/dL (8.5-10.1) 09/27/18 11:00 Total Bilirubin 0.1 mg/dL (0.2-1) L 09/27/18 11:00 AST 32 U/L (15-37) 09/27/18 11:00 ALT 35 U/L (13-61) 09/27/18 11:00 Alkaline Phosphatase 86 U/L (45-117) 09/27/18 11:00 Total Protein 8.0 g/dl (6.4-8.2) 09/27/18 11:00 Albumin 3.0 g/dl (3.4-5.0) L 09/27/18 11:00 Current Medications Generic Name Dose Route Start Last Admin Trade Name Freq PRN Reason Stop Dose Admin Acetaminophen 650 mg 09/25/18 18:41 09/28/18 09:29 Tylenol - PO 650 mg Q6H PRN Administration Fever Or Pain Amlodipine Besylate 2.5 mg 09/28/18 10:00 09/28/18 09:27 Norvasc - PO 2.5 mg DAILY KRISTYN Administration Heparin Sodium (Porcine) 1,000 unit 09/25/18 18:41 Heparin - IVPUSH PRN PRN Heparin Heparin Sodium (Porcine) 5,000 unit 09/25/18 18:41 Heparin - IVPUSH PRN PRN Heparin Sodium Chloride 1,000 mls @ 100 mls/hr 09/25/18 10:00 09/27/18 16:35 Normal Saline - IV 100 mls/hr ASDIR KRISTYN Administration Ceftriaxone Sodium 2 gm/ 100 mls @ 200 mls/hr 09/25/18 17:15 09/28/18 09:28 Dextrose IVPB 200 mls/hr DAILY KRISTYN Administration Protocol Heparin Sodium/Dextrose 25,000 units in 500 mls @ 16 mls/hr 09/25/18 18:41 05:27 Heparin Infusion - IVPB 650 units/hr TITR KRISTYN 13 mls/hr Administration Protocol 800 UNITS/HR Metoprolol Tartrate 12.5 mg 09/27/18 20:11 09/28/18 09:27 Lopressor - PO 12.5 mg BID KRISTYN Administration Pantoprazole Sodium 20 mg 09/21/18 10:00 09/28/18 09:27 Protonix - PO 20 mg DAILY KRISTYN Administration Warfarin Sodium 7.5 mg 09/27/18 13:38 09/27/18 18:42 Coumadin - PO 7.5 mg DAILY@1800 KRISTYN Administration Home Medications Medication Instructions Recorded NK [No Known Home Medication] 09/18/18 09/25/18 12:40 Blood - Peripheral Venous Blood Culture - Preliminary NO GROWTH OBTAINED AFTER 48 HOURS, INCUBATION TO CONTINUE FOR 3 DAYS. 09/25/18 12:49 Blood - Peripheral Venous Blood Culture - Preliminary NO GROWTH OBTAINED AFTER 48 HOURS, INCUBATION TO CONTINUE FOR 3 DAYS. 09/25/18 17:30 Urine - Urine Clean Catch Urine Culture - Final Contaminated: Please Repeat 09/26/18 11:30 Stool Clostridium difficile Antigen (VENKATA) - Final 09/26/18 11:30 Stool Clostridium difficile Toxin Assay - Final 09/14/18 16:45 Urine - Urine Clean Catch Urine Culture - Final Escherichia Coli ASSESSMENT AND PLAN: Patient is a 48yo female with PMHx of CVA, HTN, GERD, depression and anxiety, cocaine and marijuana use , who presented with N/V and abdominal pain. She was found to have splenic infarct. # Fever: No further fever , panculture no growth so far, will continue Rocephin IV , ID on the case. Most likely the source is the urine, will monitor the Ucx # Splenic infarct. MRI findings:The splenic finding is consistent with infarct , not hemangioma or cyst. continue heparin bridging with coumadin 7.5mg tonight , inr 1.08--> 1.44--> 1.9-->1.88-->2.19 continue with 7.5mg , will monitor . hypercoagulable w/u to be repeated w/u in 3 months, follow with Dr. Cordero for possible Lupus . follow with [facility]/clinic to follow PT/INR closely, follow with clinic this saturday for PT/INR level and adjustment of medications # 1st degree Mobitz as per : will reduce the dose of Lopressor to 12.5mg bid and will monitor. 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 Explained that it is precancerous but beniign polyp and that she will need colonoscopy to exclude colon adenomas. outpatient follow-up with Dr. Magana # UTI. completed 7 days of Ceftriaxone , post having fever , restarted iv Rocephin, no growth so far. # R renal cyst. As per urologist Dr. ragsdale ; benign simple cyst. No suspicious of renal masses seen on MRI and US in follow up of CT scan report. No further treatment recommended at this time. # Appendix enlargement. follow up with repeat imaging as out pt . then if persistent then surgical evaluation # HTN :on Lopressor will reduce the dose and will restart low dose norvasc 2.5mg #Hx of A fib: as per patient .obtain records form [facility] Hep A immunization Meds: Ceftin 250mg BID x 7 days Coumadin 7.5mg at 1800 folllow with clinic lopressor 12.5mg po bid norvasc 2.5 mg daily Follow up Colonoscopy with GI within a month .
[2018-09-28 14:34] VITALS: BP 103/70; PULSE 70; TEMP 98.9
--- NOTE | 2018-09-28 16:19 | DS ---
Physical Exam: SUBJECTIVE: Patient seen and examined at bedside. Feels well. Offers no complaints. OBJECTIVE: Vital Signs Period Temp Pulse Resp BP Sys/Enriquez Pulse Ox Last 24 Hr 98.0 F-98.9 F 66-86 16-18 103-135/48-77 100-100 PHYSICAL EXAM GENERAL: The patient is awake, alert, and fully oriented, in no acute distress. HEAD: Normal with no signs of trauma. EYES: extraocular movements intact ENT: Ears normal, nares patent NECK: Trachea midline, full range of motion, supple. LUNGS: Breath sounds equal, clear to auscultation bilaterally, no wheezes, no crackles, no accessory muscle use. HEART: Regular rate and rhythm, S1, S2 without murmur, rub or gallop. ABDOMEN: Soft, nontender, nondistended, normoactive bowel sounds, no guarding, no rebound, no hepatosplenomegaly, no masses. EXTREMITIES: warm, well-perfused, no edema. NEUROLOGICAL: Cranial nerves II through XII grossly intact. Normal speech, gait not observed. PSYCH: Normal mood, normal affect. SKIN: Warm, dry, normal turgor, no rashes or lesions noted. LABS Laboratory Results - last 24 hr 09/28/18 11:05 PT with INR 26.00 H INR 2.19 H HOSPITAL COURSE: Date of Admission:09/15/18 Date of Discharge: 09/28/18 48 y/o F w/PMH of CVA (2002), GERD/gastritis, cocaine/marijuana abuse, HTN, depression was admitted to the hospital for nausea and vomiting and generalized abdominal pain. On CAT scan was found to have splenic infarct and started on heparin which was transitioned to warfarin. Benign renal cyst also found on imaging which was confirmed with urology. On telemetry pt was also found to have mobitz type 1 block and seen by cardiology. She was also seen by hematology but due to conflicting results was recommended to get follow up bloodwork done in 12 weeks for heme work up. Pt was also seen by GI who did EGD and took some gastric/duodenum biopsies. Duodenal polyp showed: duodenum mucosa with tubular adenoma. Gastric biopsy showed: gastric mucosa with active chronic gastritis and H. Pylori negative. She will need further investigation with GI for the tubular adenoma. Her hospital course also included being treated for a UTI. Pt felt better and was discharged after the above stated work up. She will be prescribed: Ceftin bid x7 days, protonix 20mg qd, lopressor 12.5mg bid, norvasc 2.5 mg qd, warfarin 7.5mg qd. She will need to f/ u at [facility] for primary care needs and in 2 days after discharge to check INR. Pt reported understanding the need to check her INR in two days and weekly following this. Pt will also need to f/u with cardiology (Dr. Bales), Hematology (Dr. Hdz), GI (Dr. Medeiros). Minutes to complete discharge: 55 Discharge Summary Reason For Visit: MODERATE TETRAHYDROCANNABINOL DEPENDENCE Current Active Problems Abdominal pain (Acute) Abnormal CT scan, gastrointestinal tract (Acute) Fever and chills (Acute) Hypokalemia (Acute) Intractable vomiting with nausea (Acute) Mobitz (type) I (Wenckebach's) atrioventricular block (Acute) PSVT (paroxysmal supraventricular tachycardia) (Acute) Prolonged QT interval (Acute) Renal mass (Acute) Splenic infarct (Acute) Tetrahydrocannabinol (THC) use disorder, moderate, dependence (Acute) Vomiting (Acute) Hypertension (Chronic) Condition: Stable - Instructions Diet, Activity, Other Instructions: You came to the hospital with complaints of persistent nausea/vomiting/diarrhea for about a week. We did a CTA scan of your abdomen which ruled out appendicitis ; your symptoms were likely due to marijuana use. In addition, you were found to have a urinary tract infection for which we started you on antibiotics for. IT IS EXTREMELY IMPORTANT TO MAKE AN APPOINTMENT WITH THE [facility] IN 2 DAYS TO CHECK YOUR BLOOD LEVELS OF WARFARIN WITH AN INR TEST This is to make sure you are taking an appropriate dose of the medication. Please resume all of your home medications in addition: - please take the antibiotic until completed - Lopressor/Metoprolol twice a day - Norvasc/Amlodipine once a day - Coumadin/Warfarin once a day - Protonix/Pantoprazole once a day You will need to follow with these doctors: - [facility] for your primary care physician. You can make an appointment with any of the physicians here for primary care. - Dr. Bales for cardiology for your heart block. - Dr. Dar Medeiros for GI to follow up on your biopsy and possible colonoscopy. - Dr. Hdz for oncology to follow up on your biopsy results from your EGD. - Make appointments to see these doctors within the next 1-2 weeks. We are referring you to a primary care physician, please make an appointment to see her within one week Please refrain from marijuana use *if you begin to experience any chest pain, shortness of breath, nausea, vomiting, fevers or chills please return to the emergency room immediately. Referrals: Remberto Rangel MD [Staff Physician] - 10/07/18 (Needs to be seen in 2 days after discharge for INR check. Can follow with Dr. Nalini Farrar afterwards.) Jian Bales MD [Staff Physician] - Tyrese Medeiros DO [Staff Physician] - Bradley Martins MD [Staff Physician] - Antione Hdz MD [Staff Physician] - Disposition: HOME - Home Medications Comprehensive Discharge Medication List: Ambulatory Orders Amlodipine Besylate [Norvasc -] 2.5 mg PO DAILY #15 tablet 09/28/18 Cefuroxime Axetil [Ceftin -] 250 mg PO BID #14 tablet 09/28/18 Metoprolol Tartrate [Lopressor -] 12.5 mg PO BID #60 tablet 09/28/18 Pantoprazole Sodium [Protonix -] 20 mg PO DAILY #30 tablet.ec 09/28/18 Warfarin Na [Coumadin -] 7.5 mg PO DAILY@1800 #30 tablet 09/28/18 This patient is new to me today: No Emergency Visit: Yes ED Registration Date: 09/15/18 Care time: The patient presented to the Emergency Department on the above date and was hospitalized for further evaluation of their emergent condition. Critical Care patient: No - Discharge Referral Referred to [facility] Yes Physician Referral: Dar Medeiros DO (GI)
[2018-09-28] MEDS: WARFARIN NA 7.5 MG TABLET (FP) PO SCH (17:25)
[2018-09-30 15:23] LABS: ATYPICAL pANCA <1:20 titer (Neg:<1:20); C-ANCA <1:20 titer (Neg:<1:20); P-ANCA <1:20 titer (Neg:<1:20)
== END 2018-09-28 17:38 | disposition home or self-care (01) | DRG 663 ==
LOC: JER 12:18 → INTOOBSV 20:00 → UNDOADMOB 20:00 → JERBED 20:00 → J7W 09-15 00:07 → JERBED 09-15 00:07 → OBSVTOIN 09-15 12:46 → J4W 09-17 16:20 → J4S 09-17 16:26
PROVIDERS: ADMIT Internal Medicine; ATTEND Internal Medicine
PROC: 0DB68ZX Excision of Stomach, Via Natural or Artificial Opening Endoscopic, Diagnostic (ICD-10-PCS; 2018-09-22)
PROC: 0DB98ZX Excision of Duodenum, Via Natural or Artificial Opening Endoscopic, Diagnostic (ICD-10-PCS; principal; 2018-09-22 14:00)
DX: D73.5 Infarction of spleen (principal); E88.09 Other disorders of plasma-protein metabolism, not elsewhere classified; F14.20 Cocaine dependence, uncomplicated; I44.1 Atrioventricular block, second degree; I47.1 Supraventricular tachycardia; N28.1 Cyst of kidney, acquired; K26.9 Duodenal ulcer, unspecified as acute or chronic, without hemorrhage or perforation; E87.6 Hypokalemia; N28.9 Disorder of kidney and ureter, unspecified; I10 Essential (primary) hypertension; K76.0 Fatty (change of) liver, not elsewhere classified; K21.9 Gastro-esophageal reflux disease without esophagitis; Z86.73 Personal history of transient ischemic attack (TIA), and cerebral infarction without residual deficits; D13.2 Benign neoplasm of duodenum; F10.10 Alcohol abuse, uncomplicated; F32.9 Major depressive disorder, single episode, unspecified; Z91.5 Personal history of self-harm; K29.60 Other gastritis without bleeding; N39.0 Urinary tract infection, site not specified; F41.8 Other specified anxiety disorders; R94.31 Abnormal electrocardiogram [ECG] [EKG]; K31.7 Polyp of stomach and duodenum; F12.288 Cannabis dependence with other cannabis-induced disorder; R50.9 Fever, unspecified
CPT/HCPCS: 36415; 71045-TC-FY; 74177-TC; 74178-TC; 74183-TC; 74220-TC-FY; 74240-TC-FY; 76775-TC; 80048; 80053; 80307; 81003; 81015; 81240; 81241; 82040; 82272; 82607; 82746; 83021; 83090; 83516; 83520; 83605; 83690; 83735; 84100; 84703; 85025; 85027; 85300; 85301; 85302; 85303; 85305; 85306; 85610; 85613; 85651; 85660; 85730; 85732; 86038; 86140; 86146; 86162; 86225; 86256; 86308; 86431; 86704; 86705; 86706; 86707; 86708; 86803; 87040; 87086; 87186; 87324; 87340; 87350; 87449; 87522; 87804; 88305-TC; 93005; 93010; 93306-TC; 93975; 99285-25; G0378; J0131; J1644; J7030; Q9967

== ENCOUNTER 2018-10-15 09:47 | Emergency (ER) | payer OTHER ==
[2018-10-15 09:58] VITALS: BP 115/90; PULSE 96; TEMP 98.5; BMI 19.2
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
[2018-10-15 13:00] LABS: BASO % 1.3 % (0-2.0); EOS % 1.8 % (0-4.5); HEMATOCRIT 34.3 % (32.4-45.2); HEMOGLOBIN 11.8 GM/dL (10.7-15.3); LYMPH % 34.3 % (8-40); MCH 33.9 pg (25.7-33.7); MCHC 34.4 g/dl (32.0-36.0); MEAN CELL VOLUME 98.3 fl (80-96); MEAN PLT VOLUME 8.2 fl (7.5-11.1); MONO % 9.4 % (3.8-10.2); NEUT % 53.2 % (42.8-82.8); PLATELET COUNT 224 K/MM3 (134-434); RBC 3.49 M/mm3 (3.60-5.2); RDW 16.3 % (11.6-15.6); WHITE BLOOD COUNT 5.8 K/mm3 (4.0-10.0)
[2018-10-15 13:11] LABS: INR 1.83 (0.83-1.09); PROTHROMBIN TIME (PATIENT) 21.7 SEC (9.7-13.0)
[2018-10-15 13:29] LABS: ALBUMIN 3.8 g/dl (3.4-5.0); ALK PHOS 120 U/L (45-117); ANION GAP 9 MMOL/L (8-16); BILIRUBIN,TOTAL 0.4 mg/dL (0.2-1); BLOOD UREA NITROGEN 6 mg/dL (7-18); CALCIUM 8.3 mg/dL (8.5-10.1); CHLORIDE 102 mmol/L (98-107); CO2 22 mmol/L (21-32); CREATININE 0.7 mg/dL (0.55-1.3); GLUCOSE,RANDOM 86 mg/dL (74-106); SGOT/AST 61 U/L (15-37); SGPT/ALT 156 U/L (13-61); SODIUM 132 mmol/L (136-145)
[2018-10-15] MEDS ORDERED: WARFARIN NA 1 MG TABLET (FP) ONE (15:32)
[2018-10-15] MEDS ORDERED: WARFARIN NA 5 MG TABLET (UD) ONE (15:33)
[2018-10-15] MEDS ORDERED: WARFARIN NA 7.5 MG TABLET (FP) PO ONE ×2 (16:27→18:00)
== END 2018-10-15 16:29 | disposition home or self-care (01) ==
LOC: JER 09:47
DX: F10.920 Alcohol use, unspecified with intoxication, uncomplicated (principal); T14.8XXA Other injury of unspecified body region, initial encounter; R10.9 Unspecified abdominal pain; I10 Essential (primary) hypertension; R42 Dizziness and giddiness
CPT/HCPCS: 36415; 80053; 80307; 84703; 85025; 85610; 99282-25

== ENCOUNTER 2018-10-18 23:49 | Inpatient (IN) | payer OTHER ==
--- NOTE | 2018-10-19 02:11 | PDOC ---
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 Per the patient, she states she had 3 -4x NBNB emesis events yesterday and 2x events today. In addition, she has had multiple episodes of diarrhea without hematochezia. The abdominal pain is cramping in nature, 10/10, located in the RUQ, epigastric region, and without radiation. Her last drink was at approximately 9pm where she drank 2x 40 oz beers throughout the day. Denies tremors. In addition, she describes a chest tightness that began yesterday without radiation. Denies the following: fevers, chills, visual changes, ears/nose/throat pain, dysuria, hematuria, and leg pain/ swelling. Allergies: NKDA Social: Endorses MJ use. Past History - Past Medical History Allergies/Adverse Reactions: Allergies Allergy/AdvReac Type Severity Reaction Status Date / Time beeswax Allergy Severe Difficulty Verified 10/19/18 00:24 Breathing coconut oil Allergy Severe Itching Verified 10/19/18 00:24 No Known Drug Allergies Allergy Verified 10/19/18 00:24 Home Medications: Ambulatory Orders Amlodipine Besylate [Norvasc -] 2.5 mg PO DAILY #15 tablet 09/28/18 Metoprolol Tartrate [Lopressor -] 12.5 mg PO BID #60 tablet 09/28/18 Pantoprazole Sodium [Protonix -] 20 mg PO DAILY #30 tablet.ec 09/28/18 Warfarin Na [Coumadin -] 7.5 mg PO DAILY@1800 #30 tablet 09/28/18 Anemia: Yes (no med) Asthma: (Bronchitis) Cancer: No Cardiac Disorders: Yes (Heart Murmur) CVA: Yes (2002 RESOLVED WITHOUT ANY COMPLICATIONS) COPD: No CHF: No DVT: No Dementia: No Diabetes: No GI Disorders: Yes (GERD) Disorders: No HTN: Yes Hypercholesterolemia: No Kidney Stones: No Liver Disease: Yes (FATTY LIVER) Seizures: No Thyroid Disease: No Other medical history: Lupus? - Surgical History Abdominal Surgery: Yes (hernia repair) Appendectomy: No Cardiac Surgery: No Cholecystectomy: No Lung Surgery: No Neurologic Surgery: No Orthopedic Surgery: Yes (right knee, 07/29/2015 [facility]) - Reproductive History PID: No - Immunization History Immunization Up to Date: Yes - Suicide/Smoking/Psychosocial Hx Smoking Status: No Smoking History: Never smoked Have you smoked in the past 12 months: No Number of Cigarettes Smoked Daily: 0 Cigars Per Day: 0 Information on smoking cessation initiated: No 'Breaking Loose' booklet given: 05/25/18 Hx Alcohol Use: No Drug/Substance Use Hx: Yes (Marijuana) Substance Use Type: Alcohol, Cocaine, Marijuana Hx Substance Use Treatment: Yes (completed this program in feb 2018) Review of Systems - Review of Systems Able to Perform ROS?: Yes Is the patient limited French proficient: No Constitutional: Yes: Weakness. No: Chills, Diaphoresis, Fever HEENTM: No: Eye Pain, Recent change in vision, Ear Pain, Nose Pain, Throat Pain , Mouth Pain Respiratory: Yes: Shortness of Breath. No: Cough, Hemoptysis Cardiac (ROS): Yes: Chest Pain. No: Lightheadedness, Palpitations, Syncope, Chest Tightness ABD/GI: Yes: Diarrhea, Nausea, Poor Appetite, Poor Fluid Intake, Vomiting, Abdominal cramping. No: Constipated, Rectal Bleeding, Tarry Stools : Yes: Dysuria. No: Burning, Hematuria, Urgency Musculoskeletal: No: Back Pain, Joint Pain, Neck Pain Integumentary: No: Bruising, Erythema, Rash Neurological: No: Headache, Numbness, Tingling, Tremors, Ataxia, Dizziness Psychiatric: No: Change in Appetite Endocrine: No: Unexplained Weight Gain Hematologic/Lymphatic: Yes: Easy Bleeding (on coumadin). No: Anemia *Physical Exam - Vital Signs Last Vital Signs Temp Pulse Resp BP Pulse Ox 97.6 F 80 18 99/73 99 10/19/18 00:24 10/19/18 00:24 10/19/18 00:24 10/19/18 00:24 10/19/18 01:30 - Physical Exam General Appearance: Yes: Nourished, Appropriately Dressed, Alcohol on Breath. No: Apparent Distress, Intoxicated HEENT: positive: EOMI, JOSE, Normal Voice, Symmetrical, Pharynx Normal, Hearing Grossly Normal. negative: Pale Conjunctivae, Scleral Icterus (R), Scleral Icterus (L), Muffled/Hoarse voice, Pharyngeal Erythema, Tonsillar Exudate, Tonsillar Erythema, Nasal Congestion, Rhinorrhea, Sinus Tenderness, Excessive drooling Neck: positive: Trachea midline, Supple. negative: Tender, Lymphadenopathy (R) , Lymphadenopathy (L), Tender lateral, Tender midline Respiratory/Chest: positive: Decreased Breath Sounds. negative: Chest Tender, Lungs Clear, Normal Breath Sounds, Respiratory Distress, Crackles, Rales, Rhonchi, Stridor, Wheezing Cardiovascular: positive: Regular Rhythm, Regular Rate, S1, S2. negative: Systolic Murmur Gastrointestinal/Abdominal: positive: Normal Bowel Sounds, Flat, Soft. negative : Tender, Guarding, Rebound Lymphatic: negative: Adenopathy Musculoskeletal: positive: Normal Inspection. negative: CVA Tenderness, CVA Tenderness (R), CVA Tenderness (L), Vertebral Tenderness Extremity: positive: Normal Capillary Refill, Normal Inspection, Normal Range of Motion. negative: Tender, Swelling, Calf Tenderness Integumentary: positive: Normal Color, Dry, Warm. negative: Swelling, Ecchymosis Neurologic: positive: wic site coordinator II-XII NML intact, Fully Oriented, Alert, Normal Mood/ Affect, Normal Response, Motor Strength 5/5. 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 initial vitals: Initial Vital Signs Temp Pulse Resp BP Pulse Ox 97.6 F 80 18 99/73 99 10/19/18 00:24 10/19/18 00:24 10/19/18 00:24 10/19/18 00:24 10/19/18 00:24 Work up: ddx: pancreatitis vs gastritis vs cholelithiasis vs cholecystitis vs colitits vs appendicitis vs gastroenteritis. Need ACS rule out. Patient had decreased breath sounds, will give duoneb. Laboratory Tests 10/19/18 10/19/18 10/19/18 00:05 00:05 00:05 WBC 4.5 RBC 3.40 L Hgb 11.6 Hct 33.5 MCV 98.7 H MCH 34.1 H MCHC 34.5 RDW 16.3 H Plt Count 266 MPV 8.0 Absolute Neuts (auto) 2.0 Neutrophils % 44.6 Lymphocytes % 37.4 Monocytes % 14.1 H Eosinophils % 3.3 D Basophils % 0.6 Nucleated RBC % 0 PT with INR INR PTT (Actin FS) Sodium 143 Potassium 3.8 Chloride 109 H Carbon Dioxide 25 Anion Gap 9 BUN 2 L* Creatinine 0.6 Creat Clearance w eGFR 106.70 Random Glucose 75 Calcium 8.2 L Total Bilirubin 0.1 L AST 40 H ALT 82 H Alkaline Phosphatase 126 H Creatine Kinase 135 Troponin I < 0.02 Total Protein 8.4 H Albumin 3.2 L Lipase 61 L Urine Color Yellow Urine Appearance Clear Urine pH 5.5 D Ur Specific [place] 1.007 L Urine Protein Negative Urine Glucose (UA) Negative Urine Ketones Negative Urine Blood Negative Urine Nitrite Negative Urine Bilirubin Negative Urine Urobilinogen 0.2 Ur Leukocyte Esterase Trace Urine WBC (Auto) 8 Urine RBC (Auto) 1 Urine Casts (Auto) 5 U Epithel Cells (Auto) 6.7 Urine Bacteria (Auto) 158.688 Urine HCG, Qual Opiates Screen Methadone Screen Barbiturate Screen Phencyclidine Screen Ur Amphetamines Screen MDMA (Ecstasy) Screen Benzodiazepines Screen Cocaine Screen U Marijuana (THC) Screen Blood Type Antibody Screen 10/19/18 10/19/18 10/19/18 00:05 00:05 05:50 WBC RBC Hgb Hct MCV MCH MCHC RDW Plt Count MPV Absolute Neuts (auto) Neutrophils % Lymphocytes % Monocytes % Eosinophils % Basophils % Nucleated RBC % PT with INR 23.10 H INR 1.94 H PTT (Actin FS) 46.1 H Sodium Potassium Chloride Carbon Dioxide Anion Gap BUN Creatinine Creat Clearance w eGFR Random Glucose Calcium Total Bilirubin AST ALT Alkaline Phosphatase Creatine Kinase Troponin I Total Protein Albumin Lipase Urine Color Urine Appearance Urine pH Ur Specific [place] Urine Protein Urine Glucose (UA) Urine Ketones Urine Blood Urine Nitrite Urine Bilirubin Urine Urobilinogen Ur Leukocyte Esterase Urine WBC (Auto) Urine RBC (Auto) Urine Casts (Auto) U Epithel Cells (Auto) Urine Bacteria (Auto) Urine HCG, Qual Negative Opiates Screen Negative Methadone Screen Negative Barbiturate Screen Negative Phencyclidine Screen Negative Ur Amphetamines Screen Positive A* MDMA (Ecstasy) Screen Negative Benzodiazepines Screen Negative Cocaine Screen Positive A* U Marijuana (THC) Screen Positive A* Blood Type Antibody Screen 10/19/18 05:50 WBC RBC Hgb Hct MCV MCH MCHC RDW Plt Count MPV Absolute Neuts (auto) Neutrophils % Lymphocytes % Monocytes % Eosinophils % Basophils % Nucleated RBC % PT with INR INR PTT (Actin FS) Sodium Potassium Chloride Carbon Dioxide Anion Gap BUN Creatinine Creat Clearance w eGFR Random Glucose Calcium Total Bilirubin AST ALT Alkaline Phosphatase Creatine Kinase Troponin I Total Protein Albumin Lipase Urine Color Urine Appearance Urine pH Ur Specific [place] Urine Protein Urine Glucose (UA) Urine Ketones Urine Blood Urine Nitrite Urine Bilirubin Urine Urobilinogen Ur Leukocyte Esterase Urine WBC (Auto) Urine RBC (Auto) Urine Casts (Auto) U Epithel Cells (Auto) Urine Bacteria (Auto) Urine HCG, Qual Opiates Screen Methadone Screen Barbiturate Screen Phencyclidine Screen Ur Amphetamines Screen MDMA (Ecstasy) Screen Benzodiazepines Screen Cocaine Screen U Marijuana (THC) Screen Blood Type Cancelled Antibody Screen Cancelled CXR shows no acute pathologies. EKG shows NSR without ST elevations or depressions. Previous EKG showed mobitz type 1 which is not present currently. CT abdomen and pelvis with IV contrast: gallbladder, pancreas, spleen, adrenal glands, and kidneys appear unremarkable. Abnormal 1.3 cm dilation and wall thickening of the appendix consistent with acute appendicitis. Mild colon without diverticulitis. Patient was re-examined and continues to have RLQ and RUQ tenderness to palpation. Dr. Vail was consulted for possible appendectomy. Patient was signed out to day team, specifically Dr. Yanez. Dispo: Signed out. *DC/Admit/Observation/Transfer Diagnosis at time of Disposition: Vomiting Qualifiers: Vomiting type: unspecified Vomiting Intractability: unspecified Nausea presence : unspecified Qualified Code(s): R11.10 - Vomiting, unspecified Abdominal pain Qualifiers: Abdominal location: unspecified location Qualified Code(s): R10.9 - Unspecified abdominal pain - Referrals - Patient Instructions - Post Discharge Activity
[2018-10-19] MEDS ORDERED: FAMOTIDINE 20 MG/50 ML IVPB 20 MG/50 ML MG IVPB ONE ×2 (02:13→03:02)
[2018-10-19] MEDS ORDERED: ONDANSETRON 4 MG/2 ML VIAL IVPUSH ONE (02:13)
[2018-10-19] MEDS ORDERED: MAG HYDROX/AL HYDROX/SIMETH 30 ML UNIT-DOSE CUP PO ONE (02:13)
[2018-10-19] MEDS ORDERED: ALBUTEROL SO4 2.5/IPRATROPIUM 0.5 INH SOL 3 ML VIAL.NEB. NEB ONE ×2 (02:13→03:01)
[2018-10-19] MEDS ORDERED: SODIUM CHLORIDE 1,000 ML IV STA ×2 (02:13→14:56)
[2018-10-19] MEDS ORDERED: MAG HYDROX/AL HYDROX/SIMETH 30 ML UNIT-DOSE CUP ONE (03:01)
[2018-10-19] MEDS ORDERED: ONDANSETRON 4 MG/2 ML VIAL ONE (03:02)
[2018-10-19 03:28] LABS: BASO % 0.6 % (0-2.0); EOS % 3.3 % (0-4.5); HEMATOCRIT 33.5 % (32.4-45.2); HEMOGLOBIN 11.6 GM/dL (10.7-15.3); LYMPH % 37.4 % (8-40); MCH 34.1 pg (25.7-33.7); MCHC 34.5 g/dl (32.0-36.0); MEAN CELL VOLUME 98.7 fl (80-96); MONO % 14.1 % (3.8-10.2); NEUT % 44.6 % (42.8-82.8); PLATELET COUNT 266 K/MM3 (134-434); RDW 16.3 % (11.6-15.6); WHITE BLOOD COUNT 4.5 K/mm3 (4.0-10.0)
--- NOTE | 2018-10-19 03:43 | PDOC ---
Attending Attestation - Resident Resident Name: Gilberto Naranjo - ED Attending Attestation I have performed the following: I have examined & evaluated the patient, The case was reviewed & discussed with the resident, I agree w/resident's findings & plan, Exceptions are as noted - HPI HPI: 10/19/18 03:41 48 F with h/o HTN, CVA, PSA, presenting to ED with abdominal pain, vomiting, diarrhea. No F/C. Endorses mild chest pain as well. States her symptoms have been going on for weeks. - Physicial Exam PE: 10/19/18 03:42 GENERAL: Awake, alert, and fully oriented, in no acute distress. HEAD: No signs of trauma EYES: PERRLA, EOMI, sclera anicteric, conjunctiva clear ENT: Auricles normal inspection, hearing grossly normal, nares patent, oropharynx clear without exudates. Moist mucosa NECK: Nontender, no stepoffs, Normal ROM, supple, no lymphadenopathy, JVD, or masses LUNGS: Breath sounds equal, clear to auscultation bilaterally. No wheezes, and no crackles HEART: Regular rate and rhythm, normal S1 and S2, no murmurs, rubs or gallops ABDOMEN: + diffuse TTP, No guarding, no rebound. No masses EXTREMITIES: Normal range of motion, no edema. No clubbing or cyanosis. No cords, erythema, or tenderness NEUROLOGICAL: Cranial nerves II through XII intact. 5/5 strength and sensation in all extremities, Normal speech, normal gait, normal cerebellar function SKIN: Warm, Dry, normal turgor, no rashes or lesions noted. - Medical Decision Making 10/19/18 03:42 48 F with abdominal pain, N+V+D. Pt intoxicated upon arrival to ED, smelling of ETOH. - Labs, lipase - CTAP 10/19/18 05:51 CT shows acute appendicitis Will consult surgery 10/19/18 06:21 Dr. Vail to evaluate pt Will admit to hospitalist
[2018-10-19 03:46] LABS: EPI CELLS 6.7 /HPF (0-5); PH,URINE 5.5 (5.0-8.0); URINE APPEARANCE CLEAR; URINE BACTERIA 158.688 /hpf (NEGATIVE); URINE BILIRUBIN NEGATIVE (<2.0 mg/dL); URINE CASTS 5 /hpf (0-8); URINE COLOR YELLOW; URINE GLUCOSE (UA) NEGATIVE (NEGATIVE); URINE KETONE NEGATIVE (NEGATIVE); URINE LEUK ESTERASE TRACE (NEGATIVE); URINE NITRITE NEGATIVE (NEGATIVE); URINE PROTEIN NEGATIVE (NEGATIVE); URINE RBC 1 /hpf (0-4); URINE UROBILINOGEN 0.2 mg/dL (0.2-1.0); URINE WBC 8 /hpf (0-5)
[2018-10-19 04:01] LABS: METHADONE, UR NEGATIVE ng/ml (CUTOFF=300); OPIATES, URI NEGATIVE ng/ml (CUTOFF=300); PHENCYCLIDINE,URINE NEGATIVE ng/ml (CUTOFF=25); URINE BARBITURATES NEGATIVE ng/ml (CUTOFF=200); URINE BENZODIAZEPINES NEGATIVE ng/ml (CUTOFF=200)
[2018-10-19 04:05] LABS: COCAINE, UR POSITIVE ng/ml (CUTOFF=300); URINE AMPHETAMINES POSITIVE ng/ml (CUTOFF=500)
[2018-10-19 04:08] LABS: ALBUMIN 3.2 g/dl (3.4-5.0); ALK PHOS 126 U/L (45-117); ANION GAP 9 MMOL/L (8-16); BILIRUBIN,TOTAL 0.1 mg/dL (0.2-1); CALCIUM 8.2 mg/dL (8.5-10.1); CHLORIDE 109 mmol/L (98-107); CO2 25 mmol/L (21-32); CREATININE 0.6 mg/dL (0.55-1.3); GLUCOSE,RANDOM 75 mg/dL (74-106); LIPASE 61 U/L (73-393); POTASSIUM 3.8 mmol/L (3.5-5.1); SGOT/AST 40 U/L (15-37); SGPT/ALT 82 U/L (13-61); SODIUM 143 mmol/L (136-145); TOT PROT 8.4 g/dl (6.4-8.2)
[2018-10-19 04:12] LABS: BLOOD UREA NITROGEN 2 mg/dL (7-18)
[2018-10-19] MEDS ORDERED: ACETAMINOPHEN 1000 MG/100 ML VIAL (NON FORMULARY) IVPB ONE ×2 (04:15→11:30)
[2018-10-19] MEDS ORDERED: ACETAMINOPHEN INJECTION 100 ML IVPB ONE (04:31)
[2018-10-19] MEDS ORDERED: PIPERACILLIN/TAZOB 3.375 GM 3.375 GM in DEXTROSE 5%-WATER - 50 ML IVPB ONE (05:53)
[2018-10-19] MEDS ORDERED: SODIUM CHLORIDE 1,000 ML IV SCH ×2 (06:00→06:17)
[2018-10-19 06:17] LABS: INR 1.94 (0.83-1.09); PROTHROMBIN TIME (PATIENT) 23.1 SEC (9.7-13.0)
[2018-10-19 06:19] LABS: ACTIVATED PTT 46.1 SECONDS (25.2-36.5)
--- NOTE | 2018-10-19 07:09 | PDOC ---
*Physical Exam - Vital Signs Last Vital Signs Temp Pulse Resp BP Pulse Ox 98.4 F 75 18 118/73 98 10/19/18 06:05 10/19/18 06:05 10/19/18 06:05 10/19/18 06:05 10/19/18 06:05 ED Treatment Course - LABORATORY CBC & Chemistry Diagram: 10/20/18 06:00 10/20/18 06:00 - ADDITIONAL ORDERS Additional order review: Laboratory Results 10/19/18 10/19/18 10/19/18 05:50 05:50 00:05 PT with INR 23.10 H INR 1.94 H PTT (Actin FS) 46.1 H Sodium Potassium Chloride Carbon Dioxide Anion Gap BUN Creatinine Creat Clearance w eGFR Random Glucose Calcium Total Bilirubin AST ALT Alkaline Phosphatase Creatine Kinase Troponin I Total Protein Albumin Lipase Urine Color Urine Appearance Urine pH Ur Specific [place] Urine Protein Urine Glucose (UA) Urine Ketones Urine Blood Urine Nitrite Urine Bilirubin Urine Urobilinogen Ur Leukocyte Esterase Urine WBC (Auto) Urine RBC (Auto) Urine Casts (Auto) U Epithel Cells (Auto) Urine Bacteria (Auto) Urine HCG, Qual Negative Opiates Screen Methadone Screen Barbiturate Screen Phencyclidine Screen Ur Amphetamines Screen MDMA (Ecstasy) Screen Benzodiazepines Screen Cocaine Screen U Marijuana (THC) Screen Blood Type Cancelled Antibody Screen Cancelled 10/19/18 10/19/18 10/19/18 00:05 00:05 00:05 PT with INR INR PTT (Actin FS) Sodium 143 Potassium 3.8 Chloride 109 H Carbon Dioxide 25 Anion Gap 9 BUN 2 L* Creatinine 0.6 Creat Clearance w eGFR 106.70 Random Glucose 75 Calcium 8.2 L Total Bilirubin 0.1 L AST 40 H ALT 82 H Alkaline Phosphatase 126 H Creatine Kinase 135 Troponin I < 0.02 Total Protein 8.4 H Albumin 3.2 L Lipase 61 L Urine Color Yellow Urine Appearance Clear Urine pH 5.5 D Ur Specific [place] 1.007 L Urine Protein Negative Urine Glucose (UA) Negative Urine Ketones Negative Urine Blood Negative Urine Nitrite Negative Urine Bilirubin Negative Urine Urobilinogen 0.2 Ur Leukocyte Esterase Trace Urine WBC (Auto) 8 Urine RBC (Auto) 1 Urine Casts (Auto) 5 U Epithel Cells (Auto) 6.7 Urine Bacteria (Auto) 158.688 Urine HCG, Qual Opiates Screen Negative Methadone Screen Negative Barbiturate Screen Negative Phencyclidine Screen Negative Ur Amphetamines Screen Positive A* MDMA (Ecstasy) Screen Negative Benzodiazepines Screen Negative Cocaine Screen Positive A* U Marijuana (THC) Screen Positive A* Blood Type Antibody Screen 10/19/18 00:05 RBC 3.40 L MCV 98.7 H MCHC 34.5 RDW 16.3 H MPV 8.0 Neutrophils % 44.6 Lymphocytes % 37.4 Monocytes % 14.1 H Eosinophils % 3.3 D Basophils % 0.6 - Medications Given in the ED: ED Medications Discontinued Medications Generic Name Dose Route Start Last Admin Trade Name Isidro PRN Reason Stop Dose Admin Acetaminophen 1,000 mg 10/19/18 04:15 10/19/18 04:38 Ofirmev Injection - IVPB 10/19/18 04:16 1,000 mg ONCE ONE Administration Al Hydroxide/Mg Hydroxide 30 ml 10/19/18 02:13 10/19/18 03:19 Mylanta Oral Suspension - PO 10/19/18 02:14 30 ml ONCE ONE Administration Albuterol/Ipratropium 1 amp 10/19/18 02:13 10/19/18 03:50 Duoneb - NEB 10/19/18 02:14 1 amp ONCE ONE Administration Famotidine/Sodium Chloride 20 mg in 50 mls @ 100 mls/hr 10/19/18 02:13 03:20 Pepcid 20 Mg Premixed Ivpb - IVPB 10/19/18 02:42 100 mls/hr ONCE ONE Administration Sodium Chloride 1,000 mls @ 1,000 mls/hr 10/19/18 02:13 10/19/18 03:19 Normal Saline - IV 10/19/18 03:12 1,000 mls/hr ASDIR STA Administration Sodium Chloride 1,000 mls @ 100 mls/hr 10/19/18 06:00 10/19/18 06:47 Normal Saline - IV Not Given ASDIR KRISTYN Piperacillin Sod/Tazobactam 50 mls @ 100 mls/hr 10/19/18 05:53 10/19/18 06:46 Sod 3.375 gm/ Dextrose IVPB 10/19/18 06:22 100 mls/hr ONCE ONE Administration Protocol Ondansetron HCl 4 mg 10/19/18 02:13 10/19/18 03:20 Zofran Injection IVPUSH 10/19/18 02:14 4 mg ONCE ONE Administration Medical Decision Making - Medical Decision Making Handoff received from Dr. Naranjo The pt is a 48F w/ a history of CVA, HTN, PSA (cocaine, EtOH), splenic infarct ( coumadin) who presents w/ RUQ/RLQ abdominal pain and a CT w/ evidence of appendicitis. Dr. Vail consulted for General Surgery Pending admission 10/19/18 07:04 Pt discussed w/ [facility] Admitted for likely appendicitis *DC/Admit/Observation/Transfer Diagnosis at time of Disposition: Vomiting Qualifiers: Vomiting type: unspecified Vomiting Intractability: unspecified Nausea presence : unspecified Qualified Code(s): R11.10 - Vomiting, unspecified Abdominal pain Qualifiers: Abdominal location: unspecified location Qualified Code(s): R10.9 - Unspecified abdominal pain - Discharge Dispostion Condition at time of disposition: Good Decision to Admit order: Yes - Referrals - Patient Instructions - Post Discharge Activity
[2018-10-19] MEDS: SODIUM CHLORIDE 1,000 ML IV SCH ×2 (10:03→18:35)
--- NOTE | 2018-10-19 13:11 | HP ---
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 States that she feels a sharp, 10/10 pain in her RLQ that is constant, without radiation. Has been a/w diarrhea, and multiple episodes of NBNB emesis. During this time, also endorses generalized JEONG and chest tightness. Denies fever, chills, chest pain or pressure, or changes in urinary function. Of note, pt was recently d/c in early September for similar sx. Was found to have a splenic infarct on CTAP and was d/c on coumadin. At the time, she also was tx for UTI with ceftin BID for 7 days. 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 father - brain tumor Allergies beeswax Allergy (Severe, Verified 10/19/18 00:24) Difficulty Breathing hives, tongue swelling coconut oil Allergy (Severe, Verified 10/19/18 00:24) Itching No Known Drug Allergies Allergy (Verified 10/19/18 00:24) HOME MEDICATIONS: Home Medications Medication Instructions Recorded Amlodipine Besylate [Norvasc -] 2.5 mg PO DAILY #15 tablet 09/28/18 Cefuroxime Axetil [Ceftin -] 250 mg PO BID #14 tablet 09/28/18 Metoprolol Tartrate [Lopressor -] 12.5 mg PO BID #60 tablet 09/28/18 Pantoprazole Sodium [Protonix -] 20 mg PO DAILY #30 tablet.ec 09/28/18 Warfarin Na [Coumadin -] 7.5 mg PO DAILY@1800 #30 tablet 09/28/18 unable to reach pharmacy need to call back tomorrow to verify meds REVIEW OF SYSTEMS CONSTITUTIONAL: Absent: fever, chills, diaphoresis, generalized weakness, malaise, loss of appetite, weight change HEENT: Absent: rhinorrhea, nasal congestion, throat pain, throat swelling, difficulty swallowing, mouth swelling, ear pain, eye pain, visual changes CARDIOVASCULAR: Absent: chest pain, syncope, palpitations, irregular heart rate, lightheadedness , peripheral edema RESPIRATORY: +chest tightness Absent: cough, shortness of breath, dyspnea with exertion, orthopnea, wheezing, stridor, hemoptysis GASTROINTESTINAL: +RLQ pain, nausea, vomiting, diarrhea Absent: constipation, melena, hematochezia GENITOURINARY: Absent: dysuria, frequency, urgency, hesitancy, hematuria, flank pain, genital pain MUSCULOSKELETAL: Absent: myalgia, arthralgia, joint swelling, back pain, neck pain SKIN: Absent: rash, itching, pallor HEMATOLOGIC/IMMUNOLOGIC: Absent: easy bleeding, easy bruising, lymphadenopathy, frequent infections ENDOCRINE: Absent: unexplained weight gain, unexplained weight loss, heat intolerance, cold intolerance NEUROLOGIC: Absent: headache, focal weakness or paresthesias, dizziness, unsteady gait, seizure, mental status changes, bladder or bowel incontinence PSYCHIATRIC: Absent: anxiety, depression, suicidal or homicidal ideation, hallucinations. PHYSICAL EXAMINATION Vital Signs 10/19/18 10/19/18 00:24 06:05 Temperature 97.6 F 98.4 F Pulse Rate 80 Pulse Rate [ 75 Right Radial] Respiratory 18 18 Rate Blood Pressure 99/73 Blood Pressure 118/73 [Left Arm] O2 Sat by Pulse 99 98 Oximetry (%) GENERAL: Awake, alert, and fully oriented, in no acute distress. HEAD: Normal with no signs of trauma. EYES: Pupils equal, round and reactive to light, extraocular movements intact, sclera anicteric, conjunctiva clear. EARS, NOSE, THROAT: Ears normal, nares patent, oropharynx clear without exudates. Moist mucous membranes. NECK: Normal range of motion, supple without lymphadenopathy, JVD, or masses. LUNGS: Breath sounds equal, clear to auscultation bilaterally. No wheezes, and no crackles. No accessory muscle use. HEART: Regular rate and rhythm, normal S1 and S2 without murmur, rub or gallop. ABDOMEN: soft, +RLQ TTP with rebound tenderness. (-) psoas, obturator, rovsing LOWER EXTREMITIES: 2+ pt pulses, warm, well-perfused. No calf tenderness. No peripheral edema. NEUROLOGICAL: Cranial nerves II-XII intact. Normal speech. PSYCHIATRIC: Cooperative. SKIN: Warm, dry Laboratory Results 10/19/18 10/19/18 10/19/18 00:05 00:05 00:05 WBC 4.5 Hgb 11.6 Hct 33.5 Plt Count 266 INR Sodium 143 Potassium 3.8 Chloride 109 H Carbon Dioxide 25 Anion Gap 9 BUN 2 L* Creatinine 0.6 AST 40 H ALT 82 H Ur Amphetamines Screen Positive A* Cocaine Screen Positive A* U Marijuana (THC) Screen Positive A* 10/19/18 05:50 Hct Plt Count INR 1.94 H Sodium Ur Amphetamines Screen CTAP w/o contrast: +small hiatal hernia, acute appendicitis w/1.3cm dilation and mild periappendiceal infection. +diverticulosis, small umbilical hernia without incarceration. esophagitis EKG: NSR, rate 85bpm, [place] 180ms, qtc 456ms. 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 #RLQ pain -possible not appendicitis, however read on CT -afebrile, without white count. will not tx with abx at this time -will check TVUS to check for ovarian cyst, alternate source of pain -if TVUS (-), will order CTAP w/contrast. will do BMP prior -Tylenol PRN for pain control -IVF -NPO for now. will advance diet as tolerated -sx eval: Dr. Vail. may go to [place] #hx recent splenic infarct -will hold coumadin for possible OR -f/u INR -heme eval: Dr. Adame -pt non-compliant. verify dose with pharmacy when open #HTN-controlled -hold home meds for now #F/E/N IV NS 100 cc/hr continue to follow lytes NPO, advance diet as tolerated. #PPX SCD's #Dispo satellite/observation awaiting further sx recs Visit type - Emergency Visit Emergency Visit: Yes ED Registration Date: 10/19/18 Care time: The patient presented to the Emergency Department on the above date and was hospitalized for further evaluation of their emergent condition. - New Patient This patient is new to me today: Yes Date on this admission: 10/19/18 - Critical Care Critical Care patient: No
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
--- NOTE | 2018-10-19 15:14 | PN ---
Teaching Attending Note Name of Resident: Jennifer Mccain ATTENDING PHYSICIAN STATEMENT I saw and evaluated the patient. I reviewed the resident's note and discussed the case with the resident. I agree with the resident's findings and plan as documented. SUBJECTIVE: 48yo F with PMH CVA, HTN, continuous polysubtance abuse, spleenic infarct on coumadin presented to the ER with RLQ pain. had similar pain when since her last admission that has just progressed. assoc with nausea/vomiting and diarrhea. see is not compliant with her medications. Does admit to smoking cocaine last week and taking some unknown substance from a friend a few days ago. 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 RLQ pain- prelim on CT suggestive of acute appendicitis however time course is very long to have this at this point. other considerations are ruptured ovarian cyst as R ovarian cyst was seen on last CT. will get dedicated TVUS to evaluate. cont NPO, more aggressive IVF hydration. will need to repeat CT iwth contrast if u/s is not revealing to look for appendicial abscess that could also be causing pain. Surgery consulted 2. Subtherapeutic INR- medication non-compliance. will hold at present time for possible surgery. NOAC are not studied in this care however if pt does require treatment and is not compliant will need to consider. hematology consulted 3. Transaminitis- likely ETOH related. will f/u official CT report to see if any acute pathology. trend. ok to use tylenol at this time as only mild elevation 4. CVA 5. HTN- controlled off medications. unlikley she even takes them. will hold at this time 6. Continuous polysubstance abuse- (Cocaine/THC/ETOH). counselled on need for abstinence. not interested in rehab at this time. 7. DVT ppx- SCD.
[2018-10-19 17:46] VITALS: BMI 18.6
[2018-10-19] MEDS ORDERED: WARFARIN NA 7.5 MG TABLET (FP) PO SCH (18:00)
[2018-10-19 22:41] LABS: ANION GAP 8 MMOL/L (8-16); BLOOD UREA NITROGEN 3 mg/dL (7-18); CALCIUM 8.3 mg/dL (8.5-10.1); CHLORIDE 108 mmol/L (98-107); CO2 24 mmol/L (21-32); CREATININE 0.6 mg/dL (0.55-1.3); GLUCOSE,RANDOM 72 mg/dL (74-106); SODIUM 141 mmol/L (136-145)
--- NOTE | 2018-10-19 23:48 | EKG ---
Test Reason : Blood Pressure : / mmHG Vent. Rate : 085 BPM Atrial Rate : 085 BPM P-R Int : 180 ms QRS Dur : 078 ms QT Int : 384 ms P-R-T Axes : 075 086 076 degrees QTc Int : 456 ms POOR DATA QUALITY, INTERPRETATION MAY BE ADVERSELY AFFECTED NORMAL SINUS RHYTHM NORMAL ECG WHEN COMPARED WITH ECG OF 25-SEP-2018 10:35, NO SIGNIFICANT CHANGE WAS FOUND Confirmed by YEE HENDERSON, ZAIRA ([id number]) on 10/19/2018 11:48:02 PM Referred By: Confirmed By:ZAIRA FRAIRE MD
[2018-10-19] MEDS: ACETAMINOPHEN 1000 MG/100 ML VIAL (NON FORMULARY) IVPB PRN (23:55)
[2018-10-20] MEDS ORDERED: D5-1/2NS+20 MEQ KCL - 20 MEQ/1,000 ML INFUS.BAG IV SCH (06:45)
[2018-10-20] MEDS: ACETAMINOPHEN 1000 MG/100 ML VIAL (NON FORMULARY) IVPB PRN ×2 (07:45→14:58)
[2018-10-20 08:24] LABS: BASO % 0.7 % (0-2.0); EOS % 6.3 % (0-4.5); HEMOGLOBIN 11.6 GM/dL (10.7-15.3); LYMPH % 41.3 % (8-40); MCH 34.4 pg (25.7-33.7); MCHC 35.3 g/dl (32.0-36.0); MEAN CELL VOLUME 97.6 fl (80-96); MEAN PLT VOLUME 8.2 fl (7.5-11.1); MONO % 12.4 % (3.8-10.2); NEUT % 39.3 % (42.8-82.8); PLATELET COUNT 237 K/MM3 (134-434); RBC 3.38 M/mm3 (3.60-5.2); RDW 16.6 % (11.6-15.6); WHITE BLOOD COUNT 2.9 K/mm3 (4.0-10.0)
[2018-10-20 08:47] LABS: ALBUMIN 3.2 g/dl (3.4-5.0); ALK PHOS 123 U/L (45-117); ANION GAP 10 MMOL/L (8-16); BILIRUBIN,TOTAL 0.4 mg/dL (0.2-1); BLOOD UREA NITROGEN 3 mg/dL (7-18); CHLORIDE 104 mmol/L (98-107); CO2 24 mmol/L (21-32); CREATININE 0.6 mg/dL (0.55-1.3); GLUCOSE,RANDOM 57 mg/dL (74-106); MAGNESIUM 1.6 mg/dL (1.8-2.4); PHOSPHOROUS 3.7 mg/dL (2.5-4.9); POTASSIUM 3.2 mmol/L (3.5-5.1); SGOT/AST 34 U/L (15-37); SGPT/ALT 62 U/L (13-61); SODIUM 139 mmol/L (136-145); TOT PROT 8.1 g/dl (6.4-8.2)
[2018-10-20 08:51] LABS: INR 1.76 (0.83-1.09); PROTHROMBIN TIME (PATIENT) 20.9 SEC (9.7-13.0)
[2018-10-20 08:52] LABS: ACTIVATED PTT 45.4 SECONDS (25.2-36.5)
[2018-10-20] MEDS ORDERED: HEPARIN NA (PORCINE) 5,000 UNITS/ML 1ML VIAL IVPUSH PRN ×2 (09:25)
[2018-10-20] MEDS ORDERED: HEPARIN INFUSION - 25,000 UNITS/500 ML INFUS.BAG IVPB SCH (09:30)
--- NOTE | 2018-10-20 09:34 | CONSULT ---
Consultation: HEME/ONC CONSULTATION REQUESTING PROVIDER: Dr. Pretty CONSULT REQUEST: We have been asked to medically evaluate this patient for splenic infarct and evaluation for anticoagulation. 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 Patient presented with 1 day of right lower quadrant pain 10/ 10 in severity, now improved to 6/10 but states that the tylenol she is currently getting is not helping. Reported n/v and diarrhea, which has improved now. Denies LUQ pain, edema, fevers, chills, current n/v/d. Patient was diagnosed with splenic infarct in September and was discharged on coumadin. REVIEW OF SYSTEMS: CONSTITUTIONAL: Absent: fever, chills, diaphoresis, generalized weakness, malaise, loss of appetite, weight change HEENT: Absent: rhinorrhea, nasal congestion, throat pain, throat swelling, difficulty swallowing, mouth swelling, ear pain, eye pain, visual changes CARDIOVASCULAR: Absent: chest pain, syncope, palpitations, irregular heart rate, lightheadedness , peripheral edema RESPIRATORY: Absent: cough, shortness of breath, dyspnea with exertion, orthopnea, wheezing, stridor, hemoptysis GASTROINTESTINAL:abdominal pain Absent: abdominal distension, nausea, vomiting, diarrhea, constipation, melena, hematochezia GENITOURINARY: Absent: dysuria, frequency, urgency, hesitancy, hematuria, flank pain, genital pain MUSCULOSKELETAL: Absent: myalgia, arthralgia, joint swelling, back pain, neck pain SKIN: Absent: rash, itching, pallor HEMATOLOGIC/IMMUNOLOGIC: Absent: easy bleeding, easy bruising, lymphadenopathy, frequent infections ENDOCRINE: Absent: unexplained weight gain, unexplained weight loss, heat intolerance, cold intolerance NEUROLOGIC: Absent: headache, focal weakness or paresthesias, dizziness, unsteady gait, seizure, mental status changes, bladder or bowel incontinence PSYCHIATRIC: Absent: anxiety, depression, suicidal or homicidal ideation, hallucinations. PHYSICAL EXAMINATION Vital Signs - 24 hr 10/19/18 10/19/18 10/19/18 10:50 16:36 21:00 Temperature 98.2 F 98.2 F Pulse Rate 75 75 Respiratory 20 20 20 Rate Blood Pressure 142/94 142/94 O2 Sat by Pulse 97 97 Oximetry (%) 10/19/18 10/20/18 10/20/18 22:00 06:04 07:53 Temperature 97.8 F 98.2 F Pulse Rate 69 65 70 Respiratory 20 20 19 Rate Blood Pressure 145/95 153/89 135/81 O2 Sat by Pulse Oximetry (%) GENERAL: A&Ox3, no acute distress EYES: PERRLA, EOMI ENT: Moist mucus membranes NECK: No JVD LUNGS: CTA, no wheezes HEART: RRR, no murmurs ABDOMEN: Soft, tender to palpation in RLQ MUSCULOSKELETAL: No CVA Tenderness EXTREMITIES: 2+ pulses, no edema. NEUROLOGICAL: Cranial nerves II-XII intact. Laboratory Results - last 24 hr 10/19/18 10/19/18 10/20/18 11:34 21:40 06:00 WBC 2.9 L RBC 3.38 L Hgb 11.6 Hct 33.0 MCV 97.6 H MCH 34.4 H MCHC 35.3 RDW 16.6 H Plt Count 237 MPV 8.2 Absolute Neuts (auto) 1.1 L Neutrophils % 39.3 L Lymphocytes % 41.3 H Monocytes % 12.4 H Eosinophils % 6.3 H D Basophils % 0.7 Nucleated RBC % 0 PT with INR INR PTT (Actin FS) Sodium 141 Potassium 3.0 L Chloride 108 H Carbon Dioxide 24 Anion Gap 8 BUN 3 L Creatinine 0.6 Creat Clearance w eGFR 106.70 Random Glucose 72 L Calcium 8.3 L Phosphorus Magnesium Total Bilirubin AST ALT Alkaline Phosphatase Total Protein Albumin Blood Type O POSITIVE Antibody Screen Negative 10/20/18 10/20/18 06:00 06:00 WBC RBC Hgb Hct MCV MCH MCHC RDW Plt Count MPV Absolute Neuts (auto) Neutrophils % Lymphocytes % Monocytes % Eosinophils % Basophils % Nucleated RBC % PT with INR 20.90 H INR 1.76 H PTT (Actin FS) 45.4 H Sodium 139 Potassium 3.2 L Chloride 104 Carbon Dioxide 24 Anion Gap 10 BUN 3 L Creatinine 0.6 Creat Clearance w eGFR 106.70 Random Glucose 57 L Calcium 8.0 L Phosphorus 3.7 Magnesium 1.6 L Total Bilirubin 0.4 AST 34 ALT 62 H Alkaline Phosphatase 123 H Total Protein 8.1 Albumin 3.2 L Blood Type Antibody Screen Active Medications Generic Name Dose Route Start Last Admin Trade Name Freq PRN Reason Stop Dose Admin Acetaminophen 1,000 mg 10/19/18 15:30 10/20/18 07:45 Ofirmev Injection - IVPB 1,000 mg Q6H PRN Administration pain Heparin Sodium (Porcine) 1,000 unit 10/20/18 09:25 Heparin - IVPUSH PRN PRN Heparin Heparin Sodium (Porcine) 5,000 unit 10/20/18 09:25 Heparin - IVPUSH PRN PRN Heparin Potassium Chloride/Dextrose/Sod Cl 20 meq in 1,000 mls @ 100 mls/hr 10/20/18 06:45 10/20/18 07:45 D5-1/2ns+20 Meq Kcl - IV 100 mls/hr ASDIR KRISTYN Administration Heparin Sodium/Dextrose 25,000 units in 500 mls @ 16 mls/hr 10/20/18 09:30 Heparin Infusion - IVPB TITR KRISTYN Protocol 800 UNITS/HR ASSESSMENT/PLAN: Appendicitis Recent splenic infarct on coumadin at home Polysubstance abuser Repeat CT shows no contrast in appendix but prominent appendix without inflammatory changes Appy scheduled at 8am Will need perioperative AC with heparin ggt until 8pm, stop heparin at 8pm Vitamin K 10mg ordered now Will check PT/PTT/INR/Fibrinogen/CBC at midnight, if INR between 1.3 and 1.5, give 2U FFP. If INR > 1.5 give 3U FFP and recheck INR after the FFPs finish running Prophylactic lovenox 40mg after surgery, would not give therapeutic dose Dispo: We will continue to follow the patient. Thank you for this consultative opportunity. Discussed case with Dr. Wendi Lowery, PGY2 Visit type - Emergency Visit Emergency Visit: No - New Patient This patient is new to me today: Yes Date on this admission: 10/20/18 - Critical Care Critical Care patient: No
[2018-10-20] MEDS: D5-1/2NS+20 MEQ KCL - 20 MEQ/1,000 ML INFUS.BAG IV SCH (14:20)
--- NOTE | 2018-10-20 15:01 | PN ---
Physical Exam: SUBJECTIVE: Patient seen and examined at bedside. Complains of severe abdominal pain. Interview highly limited at patient request. OBJECTIVE: Vital Signs Period Temp Pulse Resp BP Sys/Enriquez Pulse Ox Last 24 Hr 97.8 F-98.2 F 65-75 19-20 135-153/81-95 97 GENERAL: A&Ox3, NAD HEENT: NC/AT, PERRLA, EOMI, MMM NECK: Trachea midline, full range of motion, supple. LUNGS: CTA b/l HEART: RRR no m/r/g ABDOMEN: patient refused abdominal and and all subsequent physical examination Laboratory Results - last 24 hr 10/19/18 10/20/18 10/20/18 21:40 06:00 06:00 WBC 2.9 L RBC 3.38 L Hgb 11.6 Hct 33.0 MCV 97.6 H MCH 34.4 H MCHC 35.3 RDW 16.6 H Plt Count 237 MPV 8.2 Absolute Neuts (auto) 1.1 L Neutrophils % 39.3 L Lymphocytes % 41.3 H Monocytes % 12.4 H Eosinophils % 6.3 H D Basophils % 0.7 Nucleated RBC % 0 PT with INR 20.90 H INR 1.76 H PTT (Actin FS) 45.4 H Sodium 141 Potassium 3.0 L Chloride 108 H Carbon Dioxide 24 Anion Gap 8 BUN 3 L Creatinine 0.6 Creat Clearance w eGFR 106.70 Random Glucose 72 L Calcium 8.3 L Phosphorus Magnesium Total Bilirubin AST ALT Alkaline Phosphatase Total Protein Albumin 10/20/18 06:00 WBC RBC Hgb Hct MCV MCH MCHC RDW Plt Count MPV Absolute Neuts (auto) Neutrophils % Lymphocytes % Monocytes % Eosinophils % Basophils % Nucleated RBC % PT with INR INR PTT (Actin FS) Sodium 139 Potassium 3.2 L Chloride 104 Carbon Dioxide 24 Anion Gap 10 BUN 3 L Creatinine 0.6 Creat Clearance w eGFR 106.70 Random Glucose 57 L Calcium 8.0 L Phosphorus 3.7 Magnesium 1.6 L Total Bilirubin 0.4 AST 34 ALT 62 H Alkaline Phosphatase 123 H Total Protein 8.1 Albumin 3.2 L Active Medications Generic Name Dose Route Start Last Admin Trade Name Freq PRN Reason Stop Dose Admin Acetaminophen 1,000 mg 10/19/18 15:30 10/20/18 07:45 Ofirmev Injection - IVPB 1,000 mg Q6H PRN Administration pain Heparin Sodium (Porcine) 1,000 unit 10/20/18 09:25 Heparin - IVPUSH PRN PRN Heparin Heparin Sodium (Porcine) 5,000 unit 10/20/18 09:25 Heparin - IVPUSH PRN PRN Heparin Heparin Sodium/Dextrose 25,000 units in 500 mls @ 16 mls/hr 10/20/18 09:30 11:45 Heparin Infusion - IVPB 800 units/hr TITR KRISTYN 16 mls/hr Administration Protocol 800 UNITS/HR Potassium Chloride/Dextrose/Sod Cl 20 meq in 1,000 mls @ 125 mls/hr 10/20/18 12:11 10/20/18 14:20 D5-1/2ns+20 Meq Kcl - IV 125 mls/hr ASDIR KRISTYN Administration ASSESSMENT/PLAN: 48 y/o F w/ PMHx HTN, polysubstance abuse (cocaine, marijuana), 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), duodenal tubular adenoma, recent splenic infarct ( tx w coumadin), who presents to the ED c/o RLQ pain over the past day. #RLQ pain -Initial dry CT a/p equivocal as to appendicitis, appendix appearing less inflamed than in prior study -no indication for ABx -TVUS negative -f/u contrast CT a/p showing prominent non-filling appendix but w/o suggestive inflammatory changes -will await Sx recommendations -Tylenol PRN for pain control -IVF -NPO pending surgical decision #h/o splenic infarct -transitioned to heparin gtt, can be held 2 hours prior to surgery as needed -hematology following #HTN -BP within acceptable parameters, hold home meds at this time #FEN -D51/2NS+20meqK @ 125 cc/hr -monitor and replete electrolytes -NPO #PPx -DVT: heparin GTT, hold 2 hours in advance of surgery -GI: not indicated #code -full #dispo -cont to monitor on med/surg Visit type - Emergency Visit Emergency Visit: No - New Patient This patient is new to me today: Yes Date on this admission: 10/20/18 - Critical Care Critical Care patient: No
--- NOTE | 2018-10-20 16:57 | PN ---
Teaching Attending Note Name of Resident: Suhail Lal ATTENDING PHYSICIAN STATEMENT I saw and evaluated the patient. I reviewed the resident's note and discussed the case with the resident. I agree with the resident's findings and plan as documented. SUBJECTIVE:continues to have pain but controlled iwth pain medications. denies CP, SOB, fever, chills, N/V/C/D, vaginal discharge OBJECTIVE: Last Vital Signs Temp Pulse Resp BP Pulse Ox 98.6 F 75 22 H 143/86 97 10/20/18 14:51 10/20/18 14:51 10/20/18 14:51 10/20/18 14:51 10/20/18 09:00 General NAD CV S1 S2 RRR Lungs CTA B/L no wheezing/rales/rhonchi Abdomen +RLQ pain, slight distention neg Mcbur[place] point neg obtruator sign neg rovsing sign ASSESSMENT AND PLAN: 48yo F with PMH CVA, HTN, continuous polysubtance abuse, spleenic infarct on coumadin presented to the ER with RLQ pain 1. RLQ pain- unclear etiology. TVUS negative for acute pathology. awaiting on CT with contrast to further evaluate. possible surgery pending on what is there. pain is tender in this area but is controlled wtih tylenol. surgery on board. 2. Subtherapeutic INR- medication non-compliance. on hep ggt. awaiting hematology eval to determine if NOAC can be used due to non-compliance. 3. Transaminitis- likely ETOH related.now trending down. nothing seen on CT. 4. CVA 5. HTN- slightly above goal. will re-start norvasc 6. Continuous polysubstance abuse- (Cocaine/THC/ETOH). counselled on need for abstinence. not interested in rehab at this time. 7. DVT ppx- SCD.
[2018-10-20] MEDS ORDERED: PHYTONADIONE 10 MG/1 ML AMP SQ ONE (17:45)
[2018-10-20] MEDS: amLODIPine BESYLATE 2.5 MG TABLET (FP) PO SCH (18:17)
--- NOTE | 2018-10-20 18:48 | PN ---
Progress Note, Physician History of Present Illness: Patient with RLQ pain, tenderness not resolved yet, splenic infarction 1m ago on outpatient coumadin with intermittent compliance and polysubstance abuse, who had questionable appendicitis last month with the start of her symptoms as well. She also had a UTI before, and had been treated with antibiotics, which she also only finished part of the course of. CT repeated today with po and iv contrast and all recent scans discussed with Dr. Warner of radiology - appendix appeared inflamed in August, and on today's scan has some air in the lumen with a prominent wall but no surrounding inflammatory changes. This is suggestive of a possible partially treated appendicitis, and though the appendix does not clearly appear inflamed now, it is also not clearly normal. She is NPO on IVF, feeling dry in the mouth, but voided about 3x today. She is seen and examined in bed, and discussed at length with Dr. Proctor of hematology. Heparin was started this morning, though INR was still 1.76 today and PTT in 40s since admission. She reports she started having diarrhea today after the CT contrast. Pain still in RLQ, though a little less overall, and tylenol is not helping as much as it could. No N/V today. No fevers. - Current Medication List Current Medications: Active Medications Acetaminophen (Ofirmev Injection -) 1,000 mg IVPB Q6H PRN PRN Reason: pain Last Admin: 10/20/18 14:58 Dose: 1,000 mg Amlodipine Besylate (Norvasc -) 2.5 mg PO DAILY [facility] Last Admin: 10/20/18 18:17 Dose: 2.5 mg Heparin Sodium (Porcine) (Heparin -) 1,000 unit IVPUSH PRN PRN PRN Reason: Heparin Heparin Sodium (Porcine) (Heparin -) 5,000 unit IVPUSH PRN PRN PRN Reason: Heparin Heparin Sodium/Dextrose (Heparin Infusion -) 25,000 units in 500 mls @ 16 mls/ hr IVPB TITR [facility]; Protocol Stop: 10/20/18 20:00 Last Admin: 10/20/18 11:45 Dose: 800 units/hr, 16 mls/hr Potassium Chloride/Dextrose/Sod Cl (D5-1/2ns+20 Meq Kcl -) 20 meq in 1,000 mls @ 125 mls/hr IV ASDIR [facility] Last Admin: 10/20/18 14:20 Dose: 125 mls/hr - Objective Vital Signs: Vital Signs Temperature 98.3 F 10/20/18 18:12 Pulse Rate 69 10/20/18 18:12 Respiratory Rate 21 H 10/20/18 18:12 Blood Pressure 148/80 10/20/18 18:12 O2 Sat by Pulse Oximetry (%) 97 10/20/18 09:00 Constitutional: Yes: Well Nourished, No Distress, Calm Eyes: Yes: Conjunctiva Clear, EOM Intact HENT: Yes: Atraumatic, Normocephalic Gastrointestinal: Yes: Soft, Distention (protuberant), Tenderness (RLQ, somewhat more in McBurney's area, less surrounding this, better than yesterday) . No: Tenderness, Rebound (no guarding) Extremities: No: Cool, Cyanosis Neurological: Yes: Alert, Oriented Labs: CBC, BMP 10/20/18 06:00 10/20/18 06:00 INR, PTT INR 1.76 (0.83-1.09) H 10/20/18 06:00 CMP Sodium 139 mmol/L (136-145) 10/20/18 06:00 Potassium 3.2 mmol/L (3.5-5.1) L 10/20/18 06:00 Chloride 104 mmol/L (98-107) 10/20/18 06:00 Carbon Dioxide 24 mmol/L (21-32) 10/20/18 06:00 Anion Gap 10 MMOL/L (8-16) 10/20/18 06:00 BUN 3 mg/dL (7-18) L 10/20/18 06:00 Creatinine 0.6 mg/dL (0.55-1.3) 10/20/18 06:00 Creat Clearance w eGFR 106.70 (>60) 10/20/18 06:00 Random Glucose 57 mg/dL (74-106) L 10/20/18 06:00 Calcium 8.0 mg/dL (8.5-10.1) L 10/20/18 06:00 Phosphorus 3.7 mg/dL (2.5-4.9) 10/20/18 06:00 Magnesium 1.6 mg/dL (1.8-2.4) L 10/20/18 06:00 Total Bilirubin 0.4 mg/dL (0.2-1) 10/20/18 06:00 AST 34 U/L (15-37) 10/20/18 06:00 ALT 62 U/L (13-61) H 10/20/18 06:00 Alkaline Phosphatase 123 U/L (45-117) H 10/20/18 06:00 Creatine Kinase 135 U/L (26-192) 10/19/18 00:05 Troponin I < 0.02 ng/ml (0.00-0.05) 10/19/18 00:05 Total Protein 8.1 g/dl (6.4-8.2) 10/20/18 06:00 Albumin 3.2 g/dl (3.4-5.0) L 10/20/18 06:00 Lipase 61 U/L (73-393) L 10/19/18 00:05 Microbiology 10/19/18 00:05 Urine Culture - Final Urine - Urine Clean Catch Contaminated: Please Repeat K and Mg low wbc low glucose low - ....Imaging Cat Scan: Report Reviewed, Image Reviewed (reviewed and discussed with Dr. Warner - appendix visualized, air proximally in it, ?prominent coley, no surrounding inflammation (see hpi)) Problem List - Problems (1) Chronic appendicitis Assessment/Plan: probable partially treated appendicitis offered appendectomy and pt wants to have it out will give antibiotics starting now tylenol first line prn for pain trend labs in am NPO with generous IV hydration, maintenance fluids with D5 and KCl ok Discussed with patient risks, benefits and alternatives of laparoscopic possible open cholecystectomy, including but not limited to bleeding, infection , injury to adjacent structures, intestinal leak or injury, intraabdominal abscess, incisional hernia, need for further procedures, ; alternatives include antibiotics, delayed or no surgery - risks of this include failure of nonoperative therapy, perforation, sepsis, recurrence, . Patient desires to proceed with operation - will take to OR in am for above. Informed consent signed for same. OR planned for 8am - discussed with hematology and primary team need to stop heparin tonight and recheck coags also getting vit K now and labs about midnight had long talk with patient about need to be safe and appropriate as well as reinforced that she will need to take all meds as directed after discharge, NOT drink much if at all (especially while taking coumadin), and went over postop pain management plan, which includes standing tylenol and ibuprofen but no narcotics unless required will check with heme on whether ibuprofen ok for short term use NPO except meds until postop Code(s): K36 - OTHER APPENDICITIS (2) Splenic infarct Assessment/Plan: now chronic by CT - decreased in size per radiologist, no longer acute/subacute appearing discussed with hematology, Dr. Adame per her - pt should complete 3m anticoagulation for original finding may be held perioperatively, INR may be reversed if necessary for OR giving vit K now, on hep drip will stop heparin at 8pm, recheck labs around midnight Code(s): D73.5 - INFARCTION OF SPLEEN (3) RLQ abdominal pain Code(s): R10.31 - RIGHT LOWER QUADRANT PAIN (4) Chills without fever Code(s): R68.83 - CHILLS (WITHOUT FEVER) (5) Diarrhea Assessment/Plan: now from oral contrast from CT Code(s): R19.7 - DIARRHEA, UNSPECIFIED Qualifiers: Diarrhea type: unspecified type Qualified Code(s): R19.7 - Diarrhea, unspecified (6) Hypertension Code(s): I10 - ESSENTIAL (PRIMARY) HYPERTENSION Qualifiers: Hypertension type: essential hypertension Qualified Code(s): I10 - Essential (primary) hypertension (7) Tetrahydrocannabinol (THC) use disorder, moderate, dependence Code(s): F12.20 - CANNABIS DEPENDENCE, UNCOMPLICATED (8) Alcohol dependence Code(s): F10.20 - ALCOHOL DEPENDENCE, UNCOMPLICATED Qualifiers: Substance use status: uncomplicated Qualified Code(s): F10.20 - Alcohol dependence, uncomplicated
[2018-10-20] MEDS ORDERED: POTASSIUM CHLORIDE TABS 20 MEQ TABLET.ER (FP) PO ONE (20:00)
[2018-10-20] MEDS ORDERED: MAGNESIUM SULF 50% (8.12 MEQ/2 ML-1 GM VIAL) IVPB ONE (20:00)
[2018-10-20] MEDS: CEFOXITIN SODIUM 1 GM in DEXTROSE 5%-WATER - 100 ML IVPB SCH (20:25)
--- NOTE | 2018-10-20 20:44 | PN ---
Teaching Attending Note Name of Resident: Landry Lowery ATTENDING PHYSICIAN STATEMENT I saw and evaluated the patient. I reviewed the resident's note and discussed the case with the resident. I agree with the resident's findings and plan as documented. ASSESSMENT AND PLAN: 48 y/o patient with nausea, vomiting, alcohol use, cocaine use, marijuana use, RLQ pain, recent adission for splenic infarct, + LAC Now with appendicitis for appendectomy per Will reverse couadin with vit. K stop heparin drip Recheck coags and transfuse FFP based on coags May need additional FFP based on coags discussed with Dr. Wright
[2018-10-20] MEDS: METOPROLOL TARTRATE 25 MG TABLET (FP) PO SCH (21:31)
[2018-10-21 00:43] LABS: HEMATOCRIT 36.1 % (32.4-45.2); HEMOGLOBIN 12.5 GM/dL (10.7-15.3); MCH 33.7 pg (25.7-33.7); MCHC 34.5 g/dl (32.0-36.0); MEAN CELL VOLUME 97.7 fl (80-96); MEAN PLT VOLUME 7.8 fl (7.5-11.1); PLATELET COUNT 236 K/MM3 (134-434); RDW 16.2 % (11.6-15.6); WHITE BLOOD COUNT 5.8 K/mm3 (4.0-10.0)
[2018-10-21 01:01] LABS: INR 1.39 (0.83-1.09); PROTHROMBIN TIME (PATIENT) 16.5 SEC (9.7-13.0)
[2018-10-21] MEDS: D5-1/2NS+20 MEQ KCL - 20 MEQ/1,000 ML INFUS.BAG IV SCH ×2 (01:01→16:27)
[2018-10-21] MEDS: ACETAMINOPHEN 1000 MG/100 ML VIAL (NON FORMULARY) IVPB PRN ×2 (01:01→11:27)
[2018-10-21 01:03] LABS: ACTIVATED PTT 51.8 SECONDS (25.2-36.5)
[2018-10-21 01:05] LABS: ANION GAP 8 MMOL/L (8-16); BLOOD UREA NITROGEN 4 mg/dL (7-18); CALCIUM 8.6 mg/dL (8.5-10.1); CHLORIDE 101 mmol/L (98-107); CO2 26 mmol/L (21-32); CREATININE 0.6 mg/dL (0.55-1.3); GLUCOSE,RANDOM 92 mg/dL (74-106); MAGNESIUM 2.6 mg/dL (1.8-2.4); PHOSPHOROUS 3.3 mg/dL (2.5-4.9); POTASSIUM 3.6 mmol/L (3.5-5.1); SODIUM 136 mmol/L (136-145)
[2018-10-21] MEDS: CEFOXITIN SODIUM 1 GM in DEXTROSE 5%-WATER - 100 ML IVPB SCH ×5 (01:43→21:13)
[2018-10-21 05:37] LABS: BASO % 0.6 % (0-2.0); EOS % 3.9 % (0-4.5); HEMATOCRIT 35.9 % (32.4-45.2); HEMOGLOBIN 12.2 GM/dL (10.7-15.3); LYMPH % 25.5 % (8-40); MCH 32.9 pg (25.7-33.7); MCHC 34.1 g/dl (32.0-36.0); MEAN CELL VOLUME 96.5 fl (80-96); MEAN PLT VOLUME 7.6 fl (7.5-11.1); MONO % 12.5 % (3.8-10.2); NEUT % 57.5 % (42.8-82.8); PLATELET COUNT 241 K/MM3 (134-434); RBC 3.72 M/mm3 (3.60-5.2); RDW 16.5 % (11.6-15.6); WHITE BLOOD COUNT 4.1 K/mm3 (4.0-10.0)
[2018-10-21] MEDS ORDERED: MIDAZOLAM HCL 2 MG/2 ML SINGLE DOSE VIAL ONE (07:17)
[2018-10-21] MEDS ORDERED: ROCURONIUM BROMIDE 50 MG/5 ML VIAL ONE (07:29)
[2018-10-21] MEDS ORDERED: DEXAMETHASONE SOD PHOSPHATE 4 MG/1 ML VIAL ONE (07:29)
[2018-10-21] MEDS ORDERED: SUCCINYLCHOLINE CHLORIDE 200 MG/10 ML VIAL ONE (07:29)
[2018-10-21] MEDS ORDERED: KETOROLAC TROMETHAMINE 30 MG/1 ML VIAL ONE (07:29)
[2018-10-21] MEDS ORDERED: DESFLURANE GAS 240 ML BOTTLE IH ONE (07:45)
[2018-10-21] MEDS ORDERED: ONDANSETRON 4 MG/2 ML VIAL IVPUSH PRN (07:49)
[2018-10-21 07:55] LABS: INR 1.43 (0.83-1.09); PROTHROMBIN TIME (PATIENT) 16.9 SEC (9.7-13.0)
[2018-10-21] MEDS ORDERED: LACTATED RINGERS SOLUTION 1,000 ML IV SCH (08:00)
[2018-10-21] MEDS ORDERED: BUPIVACAINE HCL/PF 0.5% (5MG/ML) 10 ML VIAL ONE (08:44)
[2018-10-21] MEDS: METOPROLOL TARTRATE 25 MG TABLET (FP) PO SCH ×2 (09:02→21:14)
[2018-10-21 09:27] LABS: INR 1.29 (0.83-1.09); PROTHROMBIN TIME (PATIENT) 15.3 SEC (9.7-13.0)
[2018-10-21 09:29] LABS: ACTIVATED PTT 46.5 SECONDS (25.2-36.5)
--- NOTE | 2018-10-21 10:52 | PN ---
Progress Note, Physician History of Present Illness: Patient with RLQ pain, still with pain and tenderness, splenic infarction discovered 1m ago, who was on outpatient coumadin with intermittent compliance and polysubstance abuse, who had questionable appendicitis last month with the start of her symptoms as well. She also had a UTI before, and had been treated with antibiotics, which she also only finished part of the course of. CT has been repeated with po and iv contrast and all recent scans discussed with Dr. Warner of radiology - appendix appeared inflamed in August, and on most recent scan has some air in the lumen with a prominent wall but no surrounding inflammatory changes. This is suggestive of a possible partially treated appendicitis, and though the appendix does not clearly appear inflamed now, it is also not clearly normal. The splenic infarct is smaller and now appears chronic, not acute/subacute. Her case was discussed at length with Dr. Proctor of hematology yesterday. Heparin drip was on for about 12 hrs yesterday, and she got 10mg vit K last evening about the time it was stopped. INR has decreased over time, was back to 1.43 early this am. PTT was elevated on admission at 46, and was 51 after 4hrs off heparin, 54 at about 8hrs off this morning. She got 2 units FFP between about 6:30 and 8am, and coags shortly after show INR 1.29 and PTT 46.5. She may have lupus anticoagulant (tests were both positive and negative), though definitive repeat in another couple of months is pending - this could possibly cause artificially elevated PTT without increased bleeding risks. Yesterday, we discussed planning laparoscopic possible open appendectomy this admission and started Cefoxitin in anticipation thereof. OR has been cancelled this morning, given persistently elevated PTT, until hematology can determine if she has significant bleeding risks vs clotting risks and help get her optimized for surgery. Have spoken with both Dr. Adame and Dr. Hdz this morning. He plans to consider a PTT mixing study this afternoon, and then possible resumption of prophylactic lovenox, in hopes that lap appy can still be done this admission safely. I have explained all this to the patient, who understands and is in agreement with plan. She has had diarrhea from the oral CT contrast. Pain still in RLQ, and tylenol is not helping all that much. No N/V, no fevers. WBC has remained normal. She is NPO on IVF, still feeling dry/thirsty and at times lightheaded when standing and walking. She is seen and examined briefly in bed with Dr. Lowery present , from the hematology service. - Current Medication List Current Medications: Active Medications Acetaminophen (Ofirmev Injection -) 1,000 mg IVPB Q6H PRN PRN Reason: pain Last Admin: 10/21/18 01:01 Dose: 1,000 mg Amlodipine Besylate (Norvasc -) 2.5 mg PO DAILY [facility] Last Admin: 10/20/18 18:17 Dose: 2.5 mg Fentanyl (Sublimaze Injection -) 50 mcg IVPUSH [id number] PRN PRN Reason: PAIN-PACU ORDER X 4 DOSES ONLY Potassium Chloride/Dextrose/Sod Cl (D5-1/2ns+20 Meq Kcl -) 20 meq in 1,000 mls @ 125 mls/hr IV ASDIR [facility] Last Admin: 10/21/18 01:01 Dose: 125 mls/hr Cefoxitin Sodium 1 gm/ (Dextrose) 100 mls @ 200 mls/hr IVPB Q6H [facility]; Protocol Stop: 10/21/18 19:59 Last Admin: 10/21/18 08:50 Dose: 200 mls/hr Lactated Ringer's (Lactated Ringers Solution) 1,000 mls @ 75 mls/hr IV ASDIR [facility] Metoprolol Tartrate (Lopressor -) 12.5 mg PO BID [facility] Last Admin: 10/21/18 09:02 Dose: 12.5 mg Ondansetron HCl (Zofran Injection) 4 mg IVPUSH Q6H PRN PRN Reason: NAUSEA AND/OR VOMITING - Objective Vital Signs: Vital Signs Temperature 98.1 F 10/21/18 09:11 Pulse Rate 64 10/21/18 09:11 Respiratory Rate 19 10/21/18 09:11 Blood Pressure 133/93 10/21/18 09:11 O2 Sat by Pulse Oximetry (%) 97 10/20/18 21:00 Constitutional: Yes: Well Nourished, No Distress, Calm Eyes: Yes: Conjunctiva Clear, EOM Intact HENT: Yes: Atraumatic, Normocephalic Gastrointestinal: Yes: Soft, Distention (protuberant), Hernia (tiny umbilical), Tenderness (RLQ, no rebound/guarding) Musculoskeletal: No: Joint Stiffness, Joint Swelling Extremities: No: Cool, Cyanosis Neurological: Yes: Alert, Oriented Labs: CBC, BMP 10/21/18 05:20 10/21/18 00:19 INR, PTT INR 1.29 (0.83-1.09) H 10/21/18 08:50 Fibrinogen 385.0 mg/dL (238-498) 10/21/18 00:19 CMP Sodium 136 mmol/L (136-145) 10/21/18 00:19 Potassium 3.6 mmol/L (3.5-5.1) 10/21/18 00:19 Chloride 101 mmol/L (98-107) 10/21/18 00:19 Carbon Dioxide 26 mmol/L (21-32) 10/21/18 00:19 Anion Gap 8 MMOL/L (8-16) 10/21/18 00:19 BUN 4 mg/dL (7-18) L 10/21/18 00:19 Creatinine 0.6 mg/dL (0.55-1.3) 10/21/18 00:19 Creat Clearance w eGFR 106.70 (>60) 10/21/18 00:19 Random Glucose 92 mg/dL (74-106) 10/21/18 00:19 Calcium 8.6 mg/dL (8.5-10.1) 10/21/18 00:19 Phosphorus 3.3 mg/dL (2.5-4.9) 10/21/18 00:19 Magnesium 2.6 mg/dL (1.8-2.4) H 10/21/18 00:19 Total Bilirubin 0.4 mg/dL (0.2-1) 10/20/18 06:00 AST 34 U/L (15-37) 10/20/18 06:00 ALT 62 U/L (13-61) H 10/20/18 06:00 Alkaline Phosphatase 123 U/L (45-117) H 10/20/18 06:00 Creatine Kinase 135 U/L (26-192) 10/19/18 00:05 Troponin I < 0.02 ng/ml (0.00-0.05) 10/19/18 00:05 Total Protein 8.1 g/dl (6.4-8.2) 10/20/18 06:00 Albumin 3.2 g/dl (3.4-5.0) L 10/20/18 06:00 Lipase 61 U/L (73-393) L 10/19/18 00:05 PTT 46.5 this morning after FFP x2 and vit K last night Problem List - Problems (1) Chronic appendicitis Assessment/Plan: probable partially treated appendicitis offered appendectomy and pt wants to have it out unable to do surgery today with elevated PTT until optimized by hematology and cleared for OR would like to be able to operate this admission will continue antibiotics in meantime - need ID to continue Cefoxitin past 2pm today for now, continue NPO except meds with IV hydration, maintenance fluids with D5 and KCl ok trend labs tylenol first line for pain but will order tramadol bid prn, as patient would prefer to avoid morphine or oxycodone encourage OOB/ambulation discussed at length with Drs. Proctor and Andreina, seen and discussed with Dr. Lowery - all hematology discussed overnight with medical residents will discuss with Dr. 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 Hdz, will try to get PTT mixing study this afternoon after that, may consider resuming prophylactic dose lovenox (40mg daily) until able to resume full anticoagulation - also ok perioperatively Code(s): D73.5 - INFARCTION OF SPLEEN (3) RLQ abdominal pain Assessment/Plan: tylenol with tramadol for breakthrough would hold off on diet for now, ok for sparing ice chips, meds with sips of water Code(s): R10.31 - RIGHT LOWER QUADRANT PAIN (4) Chills without fever Code(s): R68.83 - CHILLS (WITHOUT FEVER) (5) Diarrhea Assessment/Plan: now from oral contrast from CT Code(s): R19.7 - DIARRHEA, UNSPECIFIED Qualifiers: Diarrhea type: unspecified type Qualified Code(s): R19.7 - Diarrhea, unspecified (6) Hypertension Assessment/Plan: on home meds, med managing Code(s): I10 - ESSENTIAL (PRIMARY) HYPERTENSION Qualifiers: Hypertension type: essential hypertension Qualified Code(s): I10 - Essential (primary) hypertension (7) Tetrahydrocannabinol (THC) use disorder, moderate, dependence Code(s): F12.20 - CANNABIS DEPENDENCE, UNCOMPLICATED (8) Alcohol dependence Code(s): F10.20 - ALCOHOL DEPENDENCE, UNCOMPLICATED Qualifiers: Substance use status: uncomplicated Qualified Code(s): F10.20 - Alcohol dependence, uncomplicated
--- NOTE | 2018-10-21 11:22 | PN ---
Teaching Attending Note Name of Resident: Suhail Lal ATTENDING PHYSICIAN STATEMENT I saw and evaluated the patient. I reviewed the resident's note and discussed the case with the resident. I agree with the resident's findings and plan as documented. SUBJECTIVE:continues to have RLQ pain with no improvement. also diarrhea started yesterday after contrast. denies CP, SOB, fever, chills, N/V/C OBJECTIVE: Last Vital Signs Temp Pulse Resp BP Pulse Ox 98.1 F 64 19 133/93 97 10/21/18 09:11 10/21/18 09:11 10/21/18 09:11 10/21/18 09:11 10/20/18 21:00 General NAD CV S1 S2 RRR Lungs CTA B/L no wheezing/rales/rhonchi Abdomen +RLQ pain, slight distention neg [place] point neg obtruator sign neg rovsing sign ASSESSMENT AND PLAN: 48yo F with PMH CVA, HTN, continuous polysubtance abuse, spleenic infarct on coumadin presented to the ER with RLQ pain 1. RLQ pain- unclear etiology. on imaging studies negative for something suggestive to cause pain. conversation between patient and surgeon with agreement to go forward with appendectomy and exploratative surgery if necessary. cont NPO, IVF and tyelnol for pain. surgery on board. 2. Subtherapeutic INR- medication non-compliance. on hep ggt. as per heme NOAC are not suggestive as no studies have been done at thistime. will re-start coumadin at 8mg when cleared by surgery. Hep ggt on hold for pending surgery. 3. Transaminitis- likely ETOH related.now trending down. nothing seen on CT. 4. CVA 5. HTN- above goal. start home medictions. 6. Continuous polysubstance abuse- (Cocaine/THC/ETOH). counselled on need for abstinence. not interested in rehab at this time. 7. DVT ppx- SCD.
--- NOTE | 2018-10-21 12:20 | PN ---
Physical Exam: SUBJECTIVE: Patient seen and examined at bedside. Abdominal pain is unrelenting. Interview highly limited at patient request. OBJECTIVE: Vital Signs Period Temp Pulse Resp BP Sys/Enriquez Pulse Ox Last 24 Hr 98.0 F-98.6 F 60-75 18-22 125-148/45-93 97 GENERAL: A&Ox3, NAD HEENT: NC/AT, PERRLA, EOMI, MMM NECK: Trachea midline, full range of motion, supple. LUNGS: CTA b/l HEART: RRR no m/r/g ABDOMEN: patient refused abdominal and and all subsequent physical examination Laboratory Results - last 24 hr 10/21/18 10/21/18 10/21/18 00:19 00:19 00:19 WBC 5.8 RBC 3.70 Hgb 12.5 Hct 36.1 MCV 97.7 H MCH 33.7 MCHC 34.5 RDW 16.2 H Plt Count 236 MPV 7.8 Absolute Neuts (auto) Neutrophils % Lymphocytes % Monocytes % Eosinophils % Basophils % Nucleated RBC % PT with INR 16.50 H INR 1.39 H PTT (Actin FS) 51.8 H Fibrinogen 385.0 Sodium Potassium Chloride Carbon Dioxide Anion Gap BUN Creatinine Creat Clearance w eGFR Random Glucose Calcium Phosphorus Magnesium 10/21/18 10/21/18 10/21/18 00:19 04:30 04:30 WBC RBC Hgb Hct MCV MCH MCHC RDW Plt Count MPV Absolute Neuts (auto) Neutrophils % Lymphocytes % Monocytes % Eosinophils % Basophils % Nucleated RBC % PT with INR 16.90 H INR 1.43 H PTT (Actin FS) 54.1 H Fibrinogen Sodium 136 Potassium 3.6 Chloride 101 Carbon Dioxide 26 Anion Gap 8 BUN 4 L Creatinine 0.6 Creat Clearance w eGFR 106.70 Random Glucose 92 Calcium 8.6 Phosphorus 3.3 Magnesium 2.6 H 10/21/18 10/21/18 10/21/18 05:20 08:50 Unknown WBC 4.1 RBC 3.72 Hgb 12.2 Hct 35.9 MCV 96.5 H MCH 32.9 MCHC 34.1 RDW 16.5 H Plt Count 241 MPV 7.6 Absolute Neuts (auto) 2.3 Neutrophils % 57.5 D Lymphocytes % 25.5 D Monocytes % 12.5 H Eosinophils % 3.9 Basophils % 0.6 Nucleated RBC % 0 PT with INR 15.30 H INR 1.29 H PTT (Actin FS) 46.5 H Cancelled Fibrinogen Sodium Potassium Chloride Carbon Dioxide Anion Gap BUN Creatinine Creat Clearance w eGFR Random Glucose Calcium Phosphorus Magnesium Active Medications Generic Name Dose Route Start Last Admin Trade Name Isidro PRN Reason Stop Dose Admin Acetaminophen 1,000 mg 10/19/18 15:30 10/21/18 11:27 Ofirmev Injection - IVPB 1,000 mg Q6H PRN Administration pain Amlodipine Besylate 2.5 mg 10/20/18 17:00 10/20/18 18:17 Norvasc - PO 2.5 mg DAILY [facility]ST[facility] Administration Potassium Chloride/Dextrose/Sod Cl 20 meq in 1,000 mls @ 125 mls/hr 10/20/18 12:11 10/21/18 01:01 D5-1/2ns+20 Meq Kcl - IV 125 mls/hr ASDIR [facility]STYN Administration Cefoxitin Sodium 1 gm/ 100 mls @ 200 mls/hr 10/20/18 20:00 10/21/18 08:50 Dextrose IVPB 10/21/18 19:59 200 mls/hr Q6H [facility]ST[facility] Administration Protocol Metoprolol Tartrate 12.5 mg 10/20/18 22:00 10/21/18 09:02 Lopressor - PO 12.5 mg BID [facility] Administration Tramadol HCl 50 mg 10/21/18 11:33 Ultram - PO BID PRN PAIN LEVEL 7 - 10 ASSESSMENT/PLAN: 48 y/o F w/ PMHx HTN, polysubstance abuse (cocaine, marijuana), 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 #RLQ pain -Initial dry CT a/p equivocal as to appendicitis, appendix appearing less inflamed than in prior study -TVUS negative -f/u contrast CT a/p showing prominent non-filling appendix but w/o suggestive inflammatory changes -surgery wishes to proceed with appendectomy -Pt has elevated PTT refractory to multiple units FFP -for mixing study today and re-evaluation of surgical candidacy -cont lalo-op ABx and maintain NPO status in anticipation of surgery #h/o splenic infarct -AC held -hematology following #HTN -cont norvasc, lopressor #FEN -D51/2NS+20meqK @ 125 cc/hr -monitor and replete electrolytes -NPO #PPx -DVT: heparin GTT, hold 2 hours in advance of surgery -GI: not indicated #code -full #dispo -cont to monitor on med/surg Visit type - Emergency Visit Emergency Visit: No - New Patient This patient is new to me today: No - Critical Care Critical Care patient: No
--- NOTE | 2018-10-21 12:33 | PN ---
Physical Exam: SUBJECTIVE: Patient seen and examined at bedside. still reports RLQ abdominal pain. OBJECTIVE: Vital Signs Period Temp Pulse Resp BP Sys/Enriquez Pulse Ox Last 24 Hr 98.0 F-98.6 F 60-75 18-22 125-148/45-93 97-97 GENERAL: A&Ox3, no acute distress EYES: PERRLA, EOMI ENT: Moist mucus membranes NECK: No JVD LUNGS: CTA, no wheezes HEART: RRR, no murmurs ABDOMEN: Soft, tender to palpation in RLQ MUSCULOSKELETAL: No CVA Tenderness EXTREMITIES: 2+ pulses, no edema. NEUROLOGICAL: Cranial nerves II-XII intact. Laboratory Results - last 24 hr 10/21/18 10/21/18 10/21/18 00:19 00:19 00:19 WBC 5.8 RBC 3.70 Hgb 12.5 Hct 36.1 MCV 97.7 H MCH 33.7 MCHC 34.5 RDW 16.2 H Plt Count 236 MPV 7.8 Absolute Neuts (auto) Neutrophils % Lymphocytes % Monocytes % Eosinophils % Basophils % Nucleated RBC % PT with INR 16.50 H INR 1.39 H PTT (Actin FS) 51.8 H Fibrinogen 385.0 Sodium Potassium Chloride Carbon Dioxide Anion Gap BUN Creatinine Creat Clearance w eGFR Random Glucose Calcium Phosphorus Magnesium 10/21/18 10/21/18 10/21/18 00:19 04:30 04:30 WBC RBC Hgb Hct MCV MCH MCHC RDW Plt Count MPV Absolute Neuts (auto) Neutrophils % Lymphocytes % Monocytes % Eosinophils % Basophils % Nucleated RBC % PT with INR 16.90 H INR 1.43 H PTT (Actin FS) 54.1 H Fibrinogen Sodium 136 Potassium 3.6 Chloride 101 Carbon Dioxide 26 Anion Gap 8 BUN 4 L Creatinine 0.6 Creat Clearance w eGFR 106.70 Random Glucose 92 Calcium 8.6 Phosphorus 3.3 Magnesium 2.6 H 10/21/18 10/21/18 10/21/18 05:20 08:50 Unknown WBC 4.1 RBC 3.72 Hgb 12.2 Hct 35.9 MCV 96.5 H MCH 32.9 MCHC 34.1 RDW 16.5 H Plt Count 241 MPV 7.6 Absolute Neuts (auto) 2.3 Neutrophils % 57.5 D Lymphocytes % 25.5 D Monocytes % 12.5 H Eosinophils % 3.9 Basophils % 0.6 Nucleated RBC % 0 PT with INR 15.30 H INR 1.29 H PTT (Actin FS) 46.5 H Cancelled Fibrinogen Sodium Potassium Chloride Carbon Dioxide Anion Gap BUN Creatinine Creat Clearance w eGFR Random Glucose Calcium Phosphorus Magnesium Active Medications Generic Name Dose Route Start Last Admin Trade Name Freq PRN Reason Stop Dose Admin Acetaminophen 1,000 mg 10/19/18 15:30 10/21/18 11:27 Ofirmev Injection - IVPB 1,000 mg Q6H PRN Administration pain Amlodipine Besylate 2.5 mg 10/20/18 17:00 10/20/18 18:17 Norvasc - PO 2.5 mg DAILY KRISTYN Administration Potassium Chloride/Dextrose/Sod Cl 20 meq in 1,000 mls @ 125 mls/hr 10/20/18 12:11 10/21/18 01:01 D5-1/2ns+20 Meq Kcl - IV 125 mls/hr ASDIR KRISTYN Administration Cefoxitin Sodium 1 gm/ 100 mls @ 200 mls/hr 10/20/18 20:00 10/21/18 08:50 Dextrose IVPB 10/21/18 19:59 200 mls/hr Q6H KRISTYN Administration Protocol Metoprolol Tartrate 12.5 mg 10/20/18 22:00 10/21/18 09:02 Lopressor - PO 12.5 mg BID KRISTYN Administration Tramadol HCl 50 mg 10/21/18 11:33 Ultram - PO BID PRN PAIN LEVEL 7 - 10 ASSESSMENT/PLAN: Appendicitis Recent splenic infarct on coumadin at home Polysubstance abuser Repeat CT shows no contrast in appendix but prominent appendix without inflammatory changes INR within range, PTT still high, could be artificial Will do mixing studies this afternoon Surgery will be delayed pending studies Prophylactic lovenox 40mg after surgery, would not give therapeutic dose Dispo: We will continue to follow the patient. Thank you for this consultative opportunity. Landry Lowery, PGY2 Case discussed with Dr. Hdz Visit type - Emergency Visit Emergency Visit: No - New Patient This patient is new to me today: No - Critical Care Critical Care patient: No
[2018-10-21] MEDS: amLODIPine BESYLATE 2.5 MG TABLET (FP) PO SCH (12:54)
--- NOTE | 2018-10-21 14:59 | CON.ID ---
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 positive for lupus anticoagulant 09/16, pending confirmatory testing in 12 wks) - Past Surgical History Past Surgical History: Yes: Colonoscopy, Hernia Repair (right lower quadrant, with mesh per pt, and perioperative drains), Joint Replacement (R knee), Upper Endoscopy Additional Surgical History: knee surgery - Alcohol/Substance Use Hx Alcohol Use: Yes (beer, had 1-2 40oz yesterday and some day before) History of Substance Use: reports: Cocaine ("when I want to" - not much recently , maybe once in last few weeks; nasal), Marijuana ("when I can") - Smoking History Smoking history: Never smoked (cigarettes) Have you smoked in the past 12 months: No Aproximately how many cigarettes per day: 0 - Social History Usual Living Arrangement: With Child ADL: Independent History of Recent Travel: No Home Medications - Allergies Allergies/Adverse Reactions: Allergies Allergy/AdvReac Type Severity Reaction Status Date / Time beeswax Allergy Severe Difficulty Verified 10/19/18 00:24 Breathing coconut oil Allergy Severe Itching Verified 10/19/18 00:24 No Known Drug Allergies Allergy Verified 10/19/18 00:24 - Home Medications Home Medications: Ambulatory Orders Amlodipine Besylate [Norvasc -] 2.5 mg PO DAILY #15 tablet 09/28/18 Metoprolol Tartrate [Lopressor -] 12.5 mg PO BID #60 tablet 09/28/18 Pantoprazole Sodium [Protonix -] 20 mg PO DAILY #30 tablet.ec 09/28/18 Warfarin Sodium 8 mg PO DAILY@1800 #30 tablet 10/20/18 Family Disease History - Family Disease History Family Disease History: Diabetes: Mother (), Heart Disease: Mother, Other: Father (), Mother Physical Exam Vital Signs: Vital Signs Temperature 98.1 F 10/21/18 09:11 Pulse Rate 60 10/21/18 13:17 Respiratory Rate 18 10/21/18 13:17 Blood Pressure 128/90 10/21/18 13:17 O2 Sat by Pulse Oximetry (%) 97 10/21/18 09:00 Labs: CBC, BMP 10/21/18 05:20 10/21/18 00:19
--- NOTE | 2018-10-21 16:23 | PN ---
Teaching Attending Note Name of Resident: Landry Lowery ATTENDING PHYSICIAN STATEMENT I saw and evaluated the patient. I reviewed the resident's note and discussed the case with the resident. I agree with the resident's findings and plan as documented. SUBJECTIVE: Patient seen and examined Complains of RLQ pains has received FFP and has had some improvement in INR , but still elevated PTT. Has positive urine toxicology on 10/19 for cocaine and marijuana. States last cocaine was day of admission -10/15 . Urinary cocaine lasts 2-4 days. Last Vital Signs Temp Pulse Resp BP Pulse Ox 98.1 F 60 18 128/90 97 10/21/18 09:11 10/21/18 13:17 10/21/18 13:17 10/21/18 13:17 10/21/18 09:00 Cor: RSR, No murmurs, No gallops Lungs: diminished breath sounds Abd:RLQ pains and tenderness Ext:No significant edema Skin: Integument intact CBC, BMP 10/21/18 05:20 10/21/18 00:19 Current Medications Generic Name Dose Route Start Last Admin Trade Name Freq PRN Reason Stop Dose Admin Acetaminophen 1,000 mg 10/19/18 15:30 10/21/18 11:27 Ofirmev Injection - IVPB 1,000 mg Q6H PRN Administration pain Amlodipine Besylate 2.5 mg 10/20/18 17:00 10/21/18 12:54 Norvasc - PO 2.5 mg DAILY KRISTYN Administration Potassium Chloride/Dextrose/Sod Cl 20 meq in 1,000 mls @ 125 mls/hr 10/20/18 12:11 10/21/18 01:01 D5-1/2ns+20 Meq Kcl - IV 125 mls/hr ASDIR KRISTYN Administration Cefoxitin Sodium 1 gm/ 100 mls @ 200 mls/hr 10/21/18 15:00 Dextrose IVPB Q6H-IV KRISTYN Protocol Metoprolol Tartrate 12.5 mg 10/20/18 22:00 10/21/18 09:02 Lopressor - PO 12.5 mg BID KRISTYN Administration Tramadol HCl 50 mg 10/21/18 11:33 Ultram - PO BID PRN PAIN LEVEL 7 - 10 INR, PTT INR 1.29 (0.83-1.09) H 10/21/18 08:50 Fibrinogen 385.0 mg/dL (238-498) 10/21/18 00:19 PTT-46 abnormal LFT's noted Impression: Appendicitis Coagulopathy Previously 09/17- - lupus anticoagulant - negative; 09/18- lupus anticoagulant positive Substance abuse Plan: Mixing PTT LAC urinary cocaine level OBJECTIVE: ASSESSMENT AND PLAN:
[2018-10-21] MEDS ORDERED: PT OWN MED DRAWER 7, Y5N ONE ×2 (19:22→20:56)
[2018-10-21 20:27] LABS: COCAINE, UR NEGATIVE ng/ml (CUTOFF=300); METHADONE, UR NEGATIVE ng/ml (CUTOFF=300); OPIATES, URI NEGATIVE ng/ml (CUTOFF=300); PHENCYCLIDINE,URINE NEGATIVE ng/ml (CUTOFF=25); URINE AMPHETAMINES NEGATIVE ng/ml (CUTOFF=500); URINE BARBITURATES NEGATIVE ng/ml (CUTOFF=200); URINE BENZODIAZEPINES NEGATIVE ng/ml (CUTOFF=200)
[2018-10-21] MEDS: traMADol HCL 50 MG TABLET PO PRN (21:13)
[2018-10-22] MEDS: D5-1/2NS+20 MEQ KCL - 20 MEQ/1,000 ML INFUS.BAG IV SCH ×2 (00:43→14:37)
[2018-10-22] MEDS ORDERED: PT OWN MED DRAWER 7, Y5N ONE ×2 (03:02→16:47)
[2018-10-22] MEDS: CEFOXITIN SODIUM 1 GM in DEXTROSE 5%-WATER - 100 ML IVPB SCH ×4 (03:06→21:35)
[2018-10-22] MEDS: ACETAMINOPHEN 1000 MG/100 ML VIAL (NON FORMULARY) IVPB PRN ×2 (05:38→14:46)
[2018-10-22 07:20] LABS: BASO % 0.9 % (0-2.0); EOS % 6.5 % (0-4.5); HEMOGLOBIN 11.9 GM/dL (10.7-15.3); LYMPH % 44.8 % (8-40); MCH 33.5 pg (25.7-33.7); MCHC 33.9 g/dl (32.0-36.0); MEAN CELL VOLUME 98.8 fl (80-96); MEAN PLT VOLUME 7.8 fl (7.5-11.1); MONO % 14.1 % (3.8-10.2); NEUT % 33.7 % (42.8-82.8); PLATELET COUNT 221 K/MM3 (134-434); RBC 3.54 M/mm3 (3.60-5.2); RDW 16.4 % (11.6-15.6); WHITE BLOOD COUNT 3.3 K/mm3 (4.0-10.0)
[2018-10-22 07:41] LABS: ANION GAP 7 MMOL/L (8-16); CALCIUM 8.1 mg/dL (8.5-10.1); CHLORIDE 104 mmol/L (98-107); CO2 27 mmol/L (21-32); CREATININE 0.7 mg/dL (0.55-1.3); GLUCOSE,RANDOM 81 mg/dL (74-106); MAGNESIUM 1.7 mg/dL (1.8-2.4); PHOSPHOROUS 3.3 mg/dL (2.5-4.9); POTASSIUM 3.9 mmol/L (3.5-5.1); SODIUM 138 mmol/L (136-145)
[2018-10-22] MEDS ORDERED: MAGNESIUM SULF 50% (8.12 MEQ/2 ML-1 GM VIAL) IVPB ONE ×2 (07:49→14:45)
[2018-10-22 07:58] LABS: BLOOD UREA NITROGEN 1 mg/dL (7-18)
[2018-10-22] MEDS: amLODIPine BESYLATE 2.5 MG TABLET (FP) PO SCH ×2 (11:05→17:44)
[2018-10-22] MEDS: traMADol HCL 50 MG TABLET PO PRN ×2 (11:05→21:28)
[2018-10-22] MEDS: METOPROLOL TARTRATE 25 MG TABLET (FP) PO SCH ×3 (11:06→21:29)
--- NOTE | 2018-10-22 13:30 | PN ---
Progress Note, Physician History of Present Illness: patient stable no new issues awaiting for final plan - Current Medication List Current Medications: Active Medications Acetaminophen (Ofirmev Injection -) 1,000 mg IVPB Q6H PRN PRN Reason: pain Last Admin: 10/22/18 05:38 Dose: 1,000 mg Amlodipine Besylate (Norvasc -) 2.5 mg PO DAILY KRISTYN Last Admin: 10/21/18 12:54 Dose: 2.5 mg Potassium Chloride/Dextrose/Sod Cl (D5-1/2ns+20 Meq Kcl -) 20 meq in 1,000 mls @ 125 mls/hr IV ASDIR KRISTYN Last Admin: 10/22/18 00:43 Dose: 125 mls/hr Cefoxitin Sodium 1 gm/ (Dextrose) 100 mls @ 200 mls/hr IVPB Q6H-IV KRISTYN; Protocol Last Admin: 10/22/18 03:06 Dose: 200 mls/hr Metoprolol Tartrate (Lopressor -) 12.5 mg PO BID KRISTYN Last Admin: 10/21/18 21:14 Dose: 12.5 mg Tramadol HCl (Ultram -) 50 mg PO BID PRN PRN Reason: PAIN LEVEL 7 - 10 Last Admin: 10/22/18 11:05 Dose: 50 mg - Objective Vital Signs: Vital Signs Temperature 98 F 10/22/18 11:13 Pulse Rate 69 10/22/18 11:13 Respiratory Rate 19 10/22/18 11:13 Blood Pressure 126/87 10/22/18 11:13 O2 Sat by Pulse Oximetry (%) 97 10/21/18 21:00 Constitutional: Yes: No Distress, Calm Cardiovascular: Yes: Regular Rate and Rhythm Respiratory: Yes: Regular, CTA Bilaterally Gastrointestinal: Yes: Normal Bowel Sounds, Soft, Ascites Musculoskeletal: Yes: WNL Extremities: Yes: WNL Neurological: Yes: Alert, Oriented Psychiatric: Yes: Alert, Oriented Labs: CBC, BMP 10/22/18 06:00 10/22/18 06:00 INR, PTT INR 1.29 (0.83-1.09) H 10/21/18 08:50 Fibrinogen 385.0 mg/dL (238-498) 10/21/18 00:19 Assessment/Plan Problem List - Problems (1) Chronic appendicitis Code(s): K36 - OTHER APPENDICITIS (2) Splenic infarct Code(s): D73.5 - INFARCTION OF SPLEEN (3) RLQ abdominal pain Code(s): R10.31 - RIGHT LOWER QUADRANT PAIN (4) Chills without fever Code(s): R68.83 - CHILLS (WITHOUT FEVER) (5) Diarrhea Code(s): R19.7 - DIARRHEA, UNSPECIFIED Qualifiers: Diarrhea type: unspecified type Qualified Code(s): R19.7 - Diarrhea, unspecified (6) Hypertension Code(s): I10 - ESSENTIAL (PRIMARY) HYPERTENSION Qualifiers: Hypertension type: essential hypertension Qualified Code(s): I10 - Essential (primary) hypertension (7) Tetrahydrocannabinol (THC) use disorder, moderate, dependence Code(s): F12.20 - CANNABIS DEPENDENCE, UNCOMPLICATED (8) Alcohol dependence Code(s): F10.20 - ALCOHOL DEPENDENCE, UNCOMPLICATED Qualifiers: Substance use status: uncomplicated Qualified Code(s): F10.20 - Alcohol dependence, uncomplicated plan will continue abx await for final plan rest as per the team
--- NOTE | 2018-10-22 13:45 | PN ---
Physical Exam: SUBJECTIVE: Patient seen and examined at bedside. Abdominal pain is unrelenting. Interview highly limited at patient request. OBJECTIVE: Vital Signs Period Temp Pulse Resp BP Sys/Enriquez Pulse Ox Last 24 Hr 97.8 F-98.2 F 57-70 18-19 113-135/54-99 97 GENERAL: A&Ox3, NAD HEENT: NC/AT, PERRLA, EOMI, MMM NECK: Trachea midline, full range of motion, supple. LUNGS: CTA b/l HEART: RRR no m/r/g ABDOMEN: patient refused abdominal and and all subsequent physical examination Laboratory Results - last 24 hr 10/21/18 10/22/18 10/22/18 19:50 06:00 06:00 WBC 3.3 L RBC 3.54 L Hgb 11.9 Hct 35.0 MCV 98.8 H MCH 33.5 MCHC 33.9 RDW 16.4 H Plt Count 221 MPV 7.8 Absolute Neuts (auto) 1.1 L Neutrophils % 33.7 L D Lymphocytes % 44.8 H D Monocytes % 14.1 H Eosinophils % 6.5 H Basophils % 0.9 Nucleated RBC % 0 Sodium 138 Potassium 3.9 Chloride 104 Carbon Dioxide 27 Anion Gap 7 L BUN 1 L* Creatinine 0.7 Creat Clearance w eGFR 89.31 Random Glucose 81 Calcium 8.1 L Phosphorus 3.3 Magnesium 1.7 L Opiates Screen Negative Methadone Screen Negative Barbiturate Screen Negative Phencyclidine Screen Negative Ur Amphetamines Screen Negative MDMA (Ecstasy) Screen Negative Benzodiazepines Screen Negative Cocaine Screen Negative U Marijuana (THC) Screen Positive A* Active Medications Generic Name Dose Route Start Last Admin Trade Name Freq PRN Reason Stop Dose Admin Acetaminophen 1,000 mg 10/19/18 15:30 10/22/18 05:38 Ofirmev Injection - IVPB 1,000 mg Q6H PRN Administration pain Amlodipine Besylate 2.5 mg 10/20/18 17:00 10/21/18 12:54 Norvasc - PO 2.5 mg DAILY KRISTYN Administration Potassium Chloride/Dextrose/Sod Cl 20 meq in 1,000 mls @ 125 mls/hr 10/20/18 12:11 10/22/18 00:43 D5-1/2ns+20 Meq Kcl - IV 125 mls/hr ASDIR KRISTYN Administration Cefoxitin Sodium 1 gm/ 100 mls @ 200 mls/hr 10/21/18 15:00 10/22/18 03:06 Dextrose IVPB 200 mls/hr Q6H-IV KRISTYN Administration Protocol Metoprolol Tartrate 12.5 mg 10/20/18 22:00 10/21/18 21:14 Lopressor - PO 12.5 mg BID KRISTYN Administration Tramadol HCl 50 mg 10/21/18 11:33 10/22/18 11:05 Ultram - PO 50 mg BID PRN Administration PAIN LEVEL 7 - 10 ASSESSMENT/PLAN: 48 y/o F w/ PMHx HTN, polysubstance abuse (cocaine, marijuana), 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 #RLQ pain -Initial dry CT a/p equivocal as to appendicitis, appendix appearing less inflamed than in prior study -TVUS negative -f/u contrast CT a/p showing prominent non-filling appendix but w/o suggestive inflammatory changes -surgery wishes to proceed with appendectomy -Pt has elevated PTT refractory to multiple units FFP -mixing study and re-evaluation of surgical candidacy pending -cont lalo-op ABx and maintain NPO status in anticipation of surgery #h/o splenic infarct -AC held -hematology following #HTN -cont norvasc, lopressor #FEN -D51/2NS+20meqK @ 125 cc/hr -monitor and replete electrolytes -NPO #PPx -DVT: heparin GTT, hold 2 hours in advance of surgery -GI: not indicated #code -full #dispo -cont to monitor on med/surg Visit type - Emergency Visit Emergency Visit: No - New Patient This patient is new to me today: No - Critical Care Critical Care patient: No
--- NOTE | 2018-10-22 15:16 | PROC ---
Procedure Note Procedure: Called by patient's RN as they are unable to place peripheral IV after multiple attempts. Patient NPO x3 days. Needs IV fluid. 22 ga angiocath placed in right hand. Aspirates and flushes easily. Secured with occlusive dressing. Ok to use.
--- NOTE | 2018-10-22 17:05 | PN ---
Teaching Attending Note Name of Resident: Suhail Lal ATTENDING PHYSICIAN STATEMENT I saw and evaluated the patient. I reviewed the resident's note and discussed the case with the resident. I agree with the resident's findings and plan as documented. SUBJECTIVE: Ongoing severe RLQ abdominal pain - no further vomiting. No fever/ chills. No ongoing diarrhea. No hematochezia/melena. OBJECTIVE: Afebrile, Hemodynamically Stable. Last Vital Signs Temp Pulse Resp BP Pulse Ox 98.3 F 62 20 129/92 97 10/22/18 14:36 10/22/18 14:36 10/22/18 14:36 10/22/18 14:36 10/21/18 21:00 HEENT - Atraumatic, Normocephalic. Heart - S1, S2, RRR Lungs - clear to auscultation Abdomen - Generalized tenderness, most significant in RLQ with rebound tenderness. Bowel Sounds reduced Extremities -mils venous stasis. No calf tenderness. Laboratory Results - last 24 hr 10/21/18 10/22/18 10/22/18 19:50 06:00 06:00 WBC 3.3 L RBC 3.54 L Hgb 11.9 Hct 35.0 MCV 98.8 H MCH 33.5 MCHC 33.9 RDW 16.4 H Plt Count 221 MPV 7.8 Absolute Neuts (auto) 1.1 L Neutrophils % 33.7 L D Lymphocytes % 44.8 H D Monocytes % 14.1 H Eosinophils % 6.5 H Basophils % 0.9 Nucleated RBC % 0 Sodium 138 Potassium 3.9 Chloride 104 Carbon Dioxide 27 Anion Gap 7 L BUN 1 L* Creatinine 0.7 Creat Clearance w eGFR 89.31 Random Glucose 81 Calcium 8.1 L Phosphorus 3.3 Magnesium 1.7 L Opiates Screen Negative Methadone Screen Negative Barbiturate Screen Negative Phencyclidine Screen Negative Ur Amphetamines Screen Negative MDMA (Ecstasy) Screen Negative Benzodiazepines Screen Negative Cocaine Screen Negative U Marijuana (THC) Screen Positive A* Current Medications Generic Name Dose Route Start Last Admin Trade Name Freq PRN Reason Stop Dose Admin Acetaminophen 1,000 mg 10/19/18 15:30 10/22/18 14:46 Ofirmev Injection - IVPB 1,000 mg Q6H PRN Administration pain Amlodipine Besylate 2.5 mg 10/20/18 17:00 10/21/18 12:54 Norvasc - PO 2.5 mg DAILY KRISTYN Administration Potassium Chloride/Dextrose/Sod Cl 20 meq in 1,000 mls @ 125 mls/hr 10/20/18 12:11 10/22/18 14:37 D5-1/2ns+20 Meq Kcl - IV 125 mls/hr ASDIR KRISTYN Administration Cefoxitin Sodium 1 gm/ 100 mls @ 200 mls/hr 10/21/18 15:00 10/22/18 14:32 Dextrose IVPB Not Given Q6H-IV KRISTYN Protocol Metoprolol Tartrate 12.5 mg 10/20/18 22:00 10/21/18 21:14 Lopressor - PO 12.5 mg BID KRISTYN Administration Tramadol HCl 50 mg 10/21/18 11:33 10/22/18 11:05 Ultram - PO 50 mg BID PRN Administration PAIN LEVEL 7 - 10 Home Medications Medication Instructions Recorded Amlodipine Besylate [Norvasc -] 2.5 mg PO DAILY #15 tablet 09/28/18 Metoprolol Tartrate [Lopressor -] 12.5 mg PO BID #60 tablet 09/28/18 Pantoprazole Sodium [Protonix -] 20 mg PO DAILY #30 tablet.ec 09/28/18 Warfarin Sodium 8 mg PO DAILY@1800 #30 tablet 10/20/18 ASSESSMENT AND PLAN: 48 year old female with history of HTN, Polysubstance Abuse, HX CVA, recent splenic infarct (on Coumadin), presented with intractable RLQ pain. 1. Acute Appendicitis clinically CT A/P and Transvaginal US noted. Given severity of abdominal tenderness, recommend at least evaluation for explorative laparoscopy. Patient has been NPO for several days pending surgical decision regarding necessity for Surgery currently. Currently afebrile, hemodynamically stable. Continue IV Fluids. Continue Cefoxitin as per ID pending decision by surgery. 2. Elevated aPTT, etiology unclear. Improved s/p FFP Mixing Studies pending. Hematology following. No active bleeding, actually history of thrombosis rather than thrombophilia. 3. Acute Splenic Infarct, recently started on Coumadin, currently held. Received FFP 4. Transaminitis - likely Alcoholic Hepatitis. No RUQ tenderness. Abdominal US requested. No evidence of alcohol withdrawal. 5. HTN - Continued on Metoprolol and Amlodipine. 6. Polysubstance Abuse - (Cocaine/THC/Alcohol). Counselled. Declines Rehab/ Detox currently. 7. Hypomagnesemia - repleted. 8. Macrocytosis - likely sec to Alcohol excess. Will request B12/Folate levels. DVT Px - SCDs.
--- NOTE | 2018-10-22 19:51 | PN ---
Progress Note (short form) - Note Progress Note: Patient seen and examined Still with abdominal pains Lab - PENDING MIXING STUDIES Will recheck in AM
[2018-10-22] MEDS: THIAMINE HCL 100 MG TABLET (FP) PO SCH (19:57)
[2018-10-22] MEDS: FOLIC ACID 1 MG TABLET (FP) PO SCH (19:57)
--- NOTE | 2018-10-23 00:31 | PN ---
Progress Note, Physician History of Present Illness: Patient with RLQ pain, still with pain and tenderness, splenic infarction discovered 1m ago, who was on outpatient coumadin with intermittent compliance and polysubstance abuse, who had questionable appendicitis last month with the start of her symptoms as well. She also had a UTI before, and had been treated with antibiotics, which she also only finished part of the course of. CT has been repeated with po and iv contrast and all recent scans discussed with Dr. Warner of radiology - appendix appeared inflamed in August, and on most recent scan has some air in the lumen with a prominent wall but no surrounding inflammatory changes. This is suggestive of a possible partially treated appendicitis, and though the appendix does not clearly appear inflamed now, it is also not clearly normal. The splenic infarct is smaller and now appears chronic, not acute/subacute. Her case has been discussed at length with hematology. Heparin drip was on for about 12 hrs Saturday, and she got 10mg vit K that evening about the time it was stopped. INR has decreased over time, was down to 1.29. PTT was elevated on admission at 46, and was 51 after 4hrs off heparin, 54 at about 8hrs off. She got 2 units FFP between about 6:30 and 8am, and coags shortly after showed INR 1.29 and PTT 46.5. She may have lupus anticoagulant (tests were both positive and negative), though definitive repeat in another couple of months is pending - this could possibly cause artificially elevated PTT without increased bleeding risks. Mixing studies were sent yesterday with results still pending. Laparoscopic possible open appendectomy is planned for this admission, and Cefoxitin started in anticipation thereof. OR was cancelled Saturday, given persistently elevated PTT, until hematology can determine if she has significant bleeding risks vs clotting risks and help get her optimized for surgery. She had diarrhea from the oral CT contrast. Still has pain in RLQ, and tylenol was not helping all that much. It is very little bit better overall, but still present; she has been taking tramadol prn as well. No N/V, no fevers. WBC has remained normal. She is NPO on IVF, but had some ice chips today and meds with sips. She is seen and examined in bed, and states she is "about the same" with regard to pain. - Current Medication List Current Medications: Active Medications Acetaminophen (Ofirmev Injection -) 1,000 mg IVPB Q6H PRN PRN Reason: pain Last Admin: 10/22/18 14:46 Dose: 1,000 mg Amlodipine Besylate (Norvasc -) 2.5 mg PO DAILY [facility] Last Admin: 10/22/18 17:44 Dose: 2.5 mg Folic Acid (Folic Acid -) 1 mg PO DAILY [facility] Last Admin: 10/22/18 19:57 Dose: 1 mg Potassium Chloride/Dextrose/Sod Cl (D5-1/2ns+20 Meq Kcl -) 20 meq in 1,000 mls @ 125 mls/hr IV ASDIR [facility] Last Admin: 10/22/18 14:37 Dose: 125 mls/hr Cefoxitin Sodium 1 gm/ (Dextrose) 100 mls @ 200 mls/hr IVPB Q6H-IV [facility]; Protocol Last Admin: 10/22/18 21:35 Dose: 200 mls/hr Metoprolol Tartrate (Lopressor -) 12.5 mg PO BID [facility] Last Admin: 10/22/18 21:29 Dose: 12.5 mg Thiamine HCl (Vitamin B1 -) 100 mg PO DAILY [facility] Last Admin: 10/22/18 19:57 Dose: 100 mg Tramadol HCl (Ultram -) 50 mg PO BID PRN PRN Reason: PAIN LEVEL 7 - 10 Last Admin: 10/22/18 21:28 Dose: 50 mg - Objective Vital Signs: Vital Signs Temperature 98 F 10/22/18 17:49 Pulse Rate 62 10/22/18 21:28 Respiratory Rate 20 10/22/18 21:28 Blood Pressure 125/84 10/22/18 21:28 O2 Sat by Pulse Oximetry (%) 97 10/22/18 09:00 Constitutional: Yes: Well Nourished, No Distress, Calm Eyes: Yes: Conjunctiva Clear, EOM Intact HENT: Yes: Atraumatic, Normocephalic Gastrointestinal: Yes: Soft, Distention (protuberant), Tenderness (RLQ, vaguely just a little less than yesterday). No: Tenderness, Epigastrium, Tenderness, Rebound Extremities: No: Cool, Cyanosis Integumentary: Yes: Tattoos. No: Jaundice, Rash Neurological: Yes: Alert, Oriented Labs: CBC, BMP 10/22/18 06:00 10/22/18 06:00 INR, PTT INR 1.29 (0.83-1.09) H 10/21/18 08:50 Fibrinogen 385.0 mg/dL (238-498) 10/21/18 00:19 CMP Sodium 138 mmol/L (136-145) 10/22/18 06:00 Potassium 3.9 mmol/L (3.5-5.1) 10/22/18 06:00 Chloride 104 mmol/L (98-107) 10/22/18 06:00 Carbon Dioxide 27 mmol/L (21-32) 10/22/18 06:00 Anion Gap 7 MMOL/L (8-16) L 10/22/18 06:00 BUN 1 mg/dL (7-18) L* 10/22/18 06:00 Creatinine 0.7 mg/dL (0.55-1.3) 10/22/18 06:00 Creat Clearance w eGFR 89.31 (>60) 10/22/18 06:00 Random Glucose 81 mg/dL (74-106) 10/22/18 06:00 Calcium 8.1 mg/dL (8.5-10.1) L 10/22/18 06:00 Phosphorus 3.3 mg/dL (2.5-4.9) 10/22/18 06:00 Magnesium 1.7 mg/dL (1.8-2.4) L 10/22/18 06:00 Total Bilirubin 0.4 mg/dL (0.2-1) 10/20/18 06:00 AST 34 U/L (15-37) 10/20/18 06:00 ALT 62 U/L (13-61) H 10/20/18 06:00 Alkaline Phosphatase 123 U/L (45-117) H 10/20/18 06:00 Creatine Kinase 135 U/L (26-192) 10/19/18 00:05 Troponin I < 0.02 ng/ml (0.00-0.05) 10/19/18 00:05 Total Protein 8.1 g/dl (6.4-8.2) 10/20/18 06:00 Albumin 3.2 g/dl (3.4-5.0) L 10/20/18 06:00 Lipase 61 U/L (73-393) L 10/19/18 00:05 Vitamin B12 792 pg/ml (193-986) 10/22/18 06:00 Serum Folate 19 ng/mL (3.1-17.5) H 10/22/18 06:00 mixing studies for coags pending Problem List - Problems (1) Chronic appendicitis Assessment/Plan: probable partially treated appendicitis offered appendectomy and pt wants to have it out unable to do surgery until elevated PTT is optimized by hematology and cleared for OR would like to be able to operate this admission will continue antibiotics in meantime - ID continuing Cefoxitin for now, continue NPO except meds with IV hydration, maintenance fluids with D5 and KCl ok, ice chips sparingly NPO after midnight x meds trend labs tylenol first line for pain but will order tramadol bid prn, as patient would prefer to avoid morphine or oxycodone encourage OOB/ambulation discussed with Dr. Hdz holding OR time at 2pm if cleared by heme for surgery am labs pending consent on chart Code(s): K36 - OTHER APPENDICITIS (2) Splenic infarct Assessment/Plan: now chronic by CT - decreased in size per radiologist, no longer acute/subacute appearing mixing studies being done may consider resuming prophylactic dose lovenox (40mg daily) until able to resume full anticoagulation - also ok perioperatively Code(s): D73.5 - INFARCTION OF SPLEEN (3) RLQ abdominal pain Assessment/Plan: tylenol with tramadol for breakthrough would hold off on diet for now, ok for sparing ice chips, meds with sips of water Code(s): R10.31 - RIGHT LOWER QUADRANT PAIN (4) Chills without fever Code(s): R68.83 - CHILLS (WITHOUT FEVER) (5) Diarrhea Assessment/Plan: now from oral contrast from CT Code(s): R19.7 - DIARRHEA, UNSPECIFIED Qualifiers: Diarrhea type: unspecified type Qualified Code(s): R19.7 - Diarrhea, unspecified (6) Hypertension Assessment/Plan: on home meds, med managing Code(s): I10 - ESSENTIAL (PRIMARY) HYPERTENSION Qualifiers: Hypertension type: essential hypertension Qualified Code(s): I10 - Essential (primary) hypertension (7) Tetrahydrocannabinol (THC) use disorder, moderate, dependence Code(s): F12.20 - CANNABIS DEPENDENCE, UNCOMPLICATED (8) Alcohol dependence Code(s): F10.20 - ALCOHOL DEPENDENCE, UNCOMPLICATED Qualifiers: Substance use status: uncomplicated Qualified Code(s): F10.20 - Alcohol dependence, uncomplicated
[2018-10-23] MEDS: D5-1/2NS+20 MEQ KCL - 20 MEQ/1,000 ML INFUS.BAG IV SCH ×3 (01:42→19:26)
[2018-10-23] MEDS: CEFOXITIN SODIUM 1 GM in DEXTROSE 5%-WATER - 100 ML IVPB SCH ×4 (03:03→22:02)
[2018-10-23 08:22] LABS: BASO % 0.6 % (0-2.0); HEMATOCRIT 37.8 % (32.4-45.2); HEMOGLOBIN 12.3 GM/dL (10.7-15.3); LYMPH % 44.8 % (8-40); MCH 31.9 pg (25.7-33.7); MCHC 32.6 g/dl (32.0-36.0); MEAN PLT VOLUME 8.2 fl (7.5-11.1); MONO % 10.6 % (3.8-10.2); PLATELET COUNT 197 K/MM3 (134-434); RBC 3.86 M/mm3 (3.60-5.2); RDW 16.4 % (11.6-15.6); WHITE BLOOD COUNT 3.2 K/mm3 (4.0-10.0)
[2018-10-23] MEDS ORDERED: PT OWN MED DRAWER 7, Y5N ONE (08:24)
[2018-10-23] MEDS: ACETAMINOPHEN 1000 MG/100 ML VIAL (NON FORMULARY) IVPB PRN (08:47)
[2018-10-23 08:53] LABS: ANION GAP 6 MMOL/L (8-16); CALCIUM 8.1 mg/dL (8.5-10.1); CHLORIDE 105 mmol/L (98-107); CO2 28 mmol/L (21-32); CREATININE 0.7 mg/dL (0.55-1.3); GLUCOSE,RANDOM 105 mg/dL (74-106); MAGNESIUM 1.9 mg/dL (1.8-2.4); POTASSIUM 3.9 mmol/L (3.5-5.1); SODIUM 139 mmol/L (136-145)
[2018-10-23 09:33] LABS: INR 1.04 (0.83-1.09); PROTHROMBIN TIME (PATIENT) 12.3 SEC (9.7-13.0)
[2018-10-23 09:36] LABS: ACTIVATED PTT 39.1 SECONDS (25.2-36.5)
[2018-10-23 09:47] LABS: BLOOD UREA NITROGEN 2 mg/dL (7-18)
[2018-10-23] MEDS: METOPROLOL TARTRATE 25 MG TABLET (FP) PO SCH ×2 (10:28→22:00)
[2018-10-23] MEDS: FOLIC ACID 1 MG TABLET (FP) PO SCH (10:28)
[2018-10-23] MEDS: THIAMINE HCL 100 MG TABLET (FP) PO SCH (10:29)
[2018-10-23] MEDS: amLODIPine BESYLATE 2.5 MG TABLET (FP) PO SCH (10:29)
--- NOTE | 2018-10-23 11:53 | PN ---
Physical Exam: SUBJECTIVE: Patient seen and examined at bedside. Abdominal pain is unrelenting. Interview highly limited at patient request. OBJECTIVE: Vital Signs Period Temp Pulse Resp BP Sys/Enriquez Pulse Ox Last 24 Hr 98 F-98.3 F 60-62 20-20 108-144/70-92 GENERAL: A&Ox3, NAD HEENT: NC/AT, PERRLA, EOMI, MMM NECK: Trachea midline, full range of motion, supple. LUNGS: CTA b/l HEART: RRR no m/r/g ABDOMEN: patient refused abdominal and and all subsequent physical examination Laboratory Results - last 24 hr 10/22/18 10/23/18 10/23/18 06:00 07:30 07:30 WBC 3.2 L RBC 3.86 Hgb 12.3 Hct 37.8 MCV 98.0 H MCH 31.9 MCHC 32.6 RDW 16.4 H Plt Count 197 MPV 8.2 Absolute Neuts (auto) 1.2 L Neutrophils % 37.0 L Lymphocytes % 44.8 H Monocytes % 10.6 H Eosinophils % 7.0 H Basophils % 0.6 Nucleated RBC % 0 PT with INR INR PTT (Actin FS) Sodium 138 139 Potassium 3.9 3.9 Chloride 104 105 Carbon Dioxide 27 28 Anion Gap 7 L 6 L BUN 1 L* 2 L* Creatinine 0.7 0.7 Creat Clearance w eGFR 89.31 89.31 Random Glucose 81 105 Calcium 8.1 L 8.1 L Phosphorus 3.3 4.0 Magnesium 1.7 L 1.9 Vitamin B12 792 Serum Folate 19 H 10/23/18 07:30 WBC RBC Hgb Hct MCV MCH MCHC RDW Plt Count MPV Absolute Neuts (auto) Neutrophils % Lymphocytes % Monocytes % Eosinophils % Basophils % Nucleated RBC % PT with INR 12.30 INR 1.04 PTT (Actin FS) 39.1 H Sodium Potassium Chloride Carbon Dioxide Anion Gap BUN Creatinine Creat Clearance w eGFR Random Glucose Calcium Phosphorus Magnesium Vitamin B12 Serum Folate Active Medications Generic Name Dose Route Start Last Admin Trade Name Freq PRN Reason Stop Dose Admin Amlodipine Besylate 2.5 mg 10/20/18 17:00 10/23/18 10:29 Norvasc - PO Not Given DAILY [facility] Folic Acid 1 mg 10/22/18 19:00 10/23/18 10:28 Folic Acid - PO Not Given DAILY [facility] Potassium Chloride/Dextrose/Sod Cl 20 meq in 1,000 mls @ 125 mls/hr 10/20/18 12:11 10/23/18 01:42 D5-1/2ns+20 Meq Kcl - IV 125 mls/hr ASDIR [facility] Administration Cefoxitin Sodium 1 gm/ 100 mls @ 200 mls/hr 10/21/18 15:00 10/23/18 08:43 Dextrose IVPB 200 mls/hr Q6H-IV [facility] Administration Protocol Metoprolol Tartrate 12.5 mg 10/20/18 22:00 10/23/18 10:28 Lopressor - PO Not Given BID [facility] Thiamine HCl 100 mg 10/22/18 19:00 10/23/18 10:29 Vitamin B1 - PO Not Given DAILY [facility] Tramadol HCl 50 mg 10/21/18 11:33 10/22/18 21:28 Ultram - PO 50 mg BID PRN Administration PAIN LEVEL 7 - 10 ASSESSMENT/PLAN: 48 y/o F w/ PMHx HTN, polysubstance abuse (cocaine, marijuana), 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 #RLQ pain -Initial dry CT a/p equivocal as to appendicitis, appendix appearing less inflamed than in prior study -TVUS negative -f/u contrast CT a/p showing prominent non-filling appendix but w/o suggestive inflammatory changes -surgery wishes to proceed with appendectomy -Pt has elevated PTT refractory to multiple units FFP -PTT this AM < 40 -mixing study and re-evaluation of surgical candidacy pending -cont lalo-op ABx and maintain NPO status in anticipation of surgery #h/o splenic infarct -AC held -hematology following #HTN -cont norvasc, lopressor #FEN -D51/2NS+20meqK @ 125 cc/hr -monitor and replete electrolytes -NPO #PPx -DVT: held in anticipation of surgery -GI: not indicated #code -full #dispo -cont to monitor on med/surg Visit type - Emergency Visit Emergency Visit: No - New Patient This patient is new to me today: No - Critical Care Critical Care patient: No
[2018-10-23] MEDS: traMADol HCL 50 MG TABLET PO PRN (12:03)
--- NOTE | 2018-10-23 13:47 | PN ---
Teaching Attending Note Name of Resident: Suhail Lal ATTENDING PHYSICIAN STATEMENT I saw and evaluated the patient. I reviewed the resident's note and discussed the case with the resident. I agree with the resident's findings and plan as documented. SUBJECTIVE: Ongoing severe RLQ abdominal pain - no further vomiting. No fever/ chills. No diarrhea. No hematochezia/melena. OBJECTIVE: Afebrile, Hemodynamically Stable. Last Vital Signs Temp Pulse Resp BP Pulse Ox 98.3 F 61 20 108/70 97 10/23/18 06:19 10/23/18 06:19 10/23/18 06:19 10/23/18 06:19 10/22/18 09:00 HEENT - Atraumatic, Normocephalic. Heart - S1, S2, RRR Lungs - clear to auscultation Abdomen - declines abdominal exam Laboratory Results - last 24 hr 10/22/18 10/23/18 10/23/18 06:00 07:30 07:30 WBC 3.2 L RBC 3.86 Hgb 12.3 Hct 37.8 MCV 98.0 H MCH 31.9 MCHC 32.6 RDW 16.4 H Plt Count 197 MPV 8.2 Absolute Neuts (auto) 1.2 L Neutrophils % 37.0 L Lymphocytes % 44.8 H Monocytes % 10.6 H Eosinophils % 7.0 H Basophils % 0.6 Nucleated RBC % 0 PT with INR INR PTT (Actin FS) Sodium 138 139 Potassium 3.9 3.9 Chloride 104 105 Carbon Dioxide 27 28 Anion Gap 7 L 6 L BUN 1 L* 2 L* Creatinine 0.7 0.7 Creat Clearance w eGFR 89.31 89.31 Random Glucose 81 105 Calcium 8.1 L 8.1 L Phosphorus 3.3 4.0 Magnesium 1.7 L 1.9 Vitamin B12 792 Serum Folate 19 H 10/23/18 07:30 WBC RBC Hgb Hct MCV MCH MCHC RDW Plt Count MPV Absolute Neuts (auto) Neutrophils % Lymphocytes % Monocytes % Eosinophils % Basophils % Nucleated RBC % PT with INR 12.30 INR 1.04 PTT (Actin FS) 39.1 H Sodium Potassium Chloride Carbon Dioxide Anion Gap BUN Creatinine Creat Clearance w eGFR Random Glucose Calcium Phosphorus Magnesium Vitamin B12 Serum Folate Current Medications Generic Name Dose Route Start Last Admin Trade Name Freq PRN Reason Stop Dose Admin Amlodipine Besylate 2.5 mg 10/20/18 17:00 10/23/18 10:29 Norvasc - PO Not Given DAILY [facility] Folic Acid 1 mg 10/22/18 19:00 10/23/18 10:28 Folic Acid - PO Not Given DAILY [facility] Potassium Chloride/Dextrose/Sod Cl 20 meq in 1,000 mls @ 125 mls/hr 10/20/18 12:11 10/23/18 12:02 D5-1/2ns+20 Meq Kcl - IV 125 mls/hr ASDIR [facility] Administration Cefoxitin Sodium 1 gm/ 100 mls @ 200 mls/hr 10/21/18 15:00 10/23/18 08:43 Dextrose IVPB 200 mls/hr Q6H-IV [facility] Administration Protocol Metoprolol Tartrate 12.5 mg 10/20/18 22:00 10/23/18 10:28 Lopressor - PO Not Given BID [facility] Thiamine HCl 100 mg 10/22/18 19:00 10/23/18 10:29 Vitamin B1 - PO Not Given DAILY [facility] Tramadol HCl 50 mg 10/21/18 11:33 10/23/18 12:03 Ultram - PO 50 mg BID PRN Administration PAIN LEVEL 7 - 10 ASSESSMENT AND PLAN: 48 year old female with history of HTN, Polysubstance Abuse, HX CVA, recent splenic infarct (on Coumadin), presented with intractable RLQ pain. 1. Acute Appendicitis clinically CT A/P and Transvaginal US noted. Patient has been NPO for several days pending surgical decision regarding necessity for Surgery currently. Currently afebrile, hemodynamically stable. Continue IV Fluids. Continue Cefoxitin as per ID pending decision by surgery. 2. Elevated aPTT, etiology unclear, currently corrected. Improved s/p FFP, Vitamin K Mixing Studies pending. Hematology following. No active bleeding - patient actually has a history of thrombosis rather than thrombophilia. 3. Acute Splenic Infarct, recently started on Coumadin, currently held. Received FFP/Vitamin K 4. Transaminitis - possible Alcoholic Hepatitis. No evidence of alcohol withdrawal. Will repeat LFTs - if still elevated, will send Acute hepatitis panel and request Abdominal US. 5. HTN - Continued on Metoprolol and Amlodipine. 6. Polysubstance Abuse - (Cocaine/THC/Alcohol). Counselled. Declines Rehab/ Detox currently. Continue Thiamine, Folic Acid, MVI. 7. Hypomagnesemia - repleted. 8. Macrocytosis - likely sec to Alcohol excess. B12/Folate levels normal - 792/ 19. DVT Px - SCDs.
--- NOTE | 2018-10-23 15:35 | PN ---
Progress Note, Physician - Current Medication List Current Medications: Active Medications Amlodipine Besylate (Norvasc -) 2.5 mg PO DAILY [facility] Last Admin: 10/23/18 10:29 Dose: Not Given Folic Acid (Folic Acid -) 1 mg PO DAILY [facility] Last Admin: 10/23/18 10:28 Dose: Not Given Potassium Chloride/Dextrose/Sod Cl (D5-1/2ns+20 Meq Kcl -) 20 meq in 1,000 mls @ 125 mls/hr IV ASDIR [facility] Last Admin: 10/23/18 12:02 Dose: 125 mls/hr Cefoxitin Sodium 1 gm/ (Dextrose) 100 mls @ 200 mls/hr IVPB Q6H-IV [facility]; Protocol Last Admin: 10/23/18 08:43 Dose: 200 mls/hr Metoprolol Tartrate (Lopressor -) 12.5 mg PO BID [facility] Last Admin: 10/23/18 10:28 Dose: Not Given Thiamine HCl (Vitamin B1 -) 100 mg PO DAILY [facility] Last Admin: 10/23/18 10:29 Dose: Not Given Tramadol HCl (Ultram -) 50 mg PO BID PRN PRN Reason: PAIN LEVEL 7 - 10 Last Admin: 10/23/18 12:03 Dose: 50 mg - Objective Vital Signs: Vital Signs Temperature 98.4 F 10/23/18 14:07 Pulse Rate 60 10/23/18 14:07 Respiratory Rate 20 10/23/18 14:07 Blood Pressure 123/77 10/23/18 14:07 O2 Sat by Pulse Oximetry (%) 97 10/22/18 09:00 Labs: CBC, BMP 10/23/18 07:30 10/23/18 07:30 INR, PTT INR 1.04 (0.83-1.09) 10/23/18 07:30 Fibrinogen 385.0 mg/dL (238-498) 10/21/18 00:19
[2018-10-23] MEDS ORDERED: MIDAZOLAM HCL 2 MG/2 ML SINGLE DOSE VIAL ONE (16:05)
[2018-10-23] MEDS ORDERED: DEXAMETHASONE SOD PHOSPHATE 4 MG/1 ML VIAL ONE (16:05)
[2018-10-23] MEDS ORDERED: PROPOFOL 20 ML ONE ×2 (16:05→17:39)
[2018-10-23] MEDS ORDERED: ROCURONIUM BROMIDE 50 MG/5 ML VIAL ONE (16:05)
[2018-10-23] MEDS ORDERED: LIDOCAINE HCL/PF 2% SDV 5ML VIAL ONE ×3 (16:05→18:24)
[2018-10-23] MEDS ORDERED: cefOXitin SODIUM 1 GM VIAL (RESTRICTED TO ID) IVPB ONE (16:50)
[2018-10-23] MEDS ORDERED: METOPROLOL TARTRATE 5 MG/5 ML VIAL ONE ×2 (17:32→17:36)
[2018-10-23] MEDS ORDERED: GLYCOPYRROLATE 0.2 MG/1 ML VIAL ONE ×2 (17:32→17:36)
[2018-10-23] MEDS ORDERED: NEOSTIGMINE METHYLSULFATE 0.5 MG/ML - 10 ML MDV ONE (17:36)
[2018-10-23] MEDS ORDERED: LIDOCAINE HCL 2% 100 MG/5 ML DISP.SYRIN ONE (17:46)
[2018-10-23] MEDS ORDERED: BUPIVACAINE HCL/PF (5 MG/ML) 30 ML VIAL IJ ONE ×2 (17:59→18:43)
[2018-10-23] MEDS ORDERED: ACETAMINOPHEN 1000 MG/100 ML VIAL (NON FORMULARY) IVPB ONE ×3 (19:09→19:26)
--- NOTE | 2018-10-23 19:09 | OP ---
Operative Note - Note: Operative Date: 10/23/18 Pre-Operative Diagnosis: subacute/chronic appendicitis (partially treated from 1m ago) Operation: laparoscopic appendectomy Findings: firm, long, inflamed appendix with filmy overlying adhesions to all adjacent structures, no yellow/purulent fluid Post-Operative Diagnosis: Same as Pre-op Surgeon: Filiberto Vail Anesthesiologist/SECONDARY SET UP MAN: Dawna Cox (mago/Van) Anesthesia: General, Local (20ml 0.5% marcaine) Specimens Removed: appendix to pathology Estimated Blood Loss (mls): 10 Drains & Tubes with Location: Jacobs out at case end Drains, Volume Out (mls): 400 Fluid Volume Replaced (mls): 1,600 (crystalloid) Operative Report Dictated: Yes
[2018-10-23] MEDS ORDERED: ACETAMINOPHEN INJECTION 100 ML IVPB ONE (19:10)
[2018-10-23] MEDS ORDERED: ONDANSETRON 4 MG/2 ML VIAL IVPUSH PRN (19:12)
[2018-10-23] MEDS ORDERED: traMADol HCL 50 MG TABLET PO PRN (19:14)
[2018-10-23] MEDS ORDERED: LACTATED RINGERS SOLUTION 1,000 ML IV SCH (19:15)
[2018-10-23] MEDS ORDERED: IBUPROFEN 400 MG TABLET (FP) PO SCH (21:00)
[2018-10-23] MEDS: IBUPROFEN 400 MG TABLET (FP) PO SCH (22:01)
--- NOTE | 2018-10-23 23:40 | PN ---
Progress Note (short form) - Note Progress Note: Patient seen and eamined Post op. laparoscopic appendectomy recovering 10ml blood loss AFVSS Cor: RSR, No murmurs, No gallops Lungs: Clear to P&A Abd: Soft, Normal bowel sounds, No organomegaly Ext:No significant edema Labs/Meds reviewed A/P 48 y/o patient with nausea, vomiting, alcohol use, cocaine use, marijuana use, RLQ pain, recent admission for splenic infarct, + LAC Now with appendicitis s/p appendectomy per 10ml blood loss per op. report elevated PTT-? LAC Did not correct with FFP and hence suspect LAC Clinically no e/o bleeding post op will follow
[2018-10-24] MEDS ORDERED: ACETAMINOPHEN 325 MG TABLET (FP) PO SCH
[2018-10-24] MEDS: ACETAMINOPHEN 325 MG TABLET (FP) PO SCH ×5 (00:53→18:59)
[2018-10-24 01:14] LABS: DRVVT - 42.3 sec (0.0-47.0)
[2018-10-24] MEDS: traMADol HCL 50 MG TABLET PO PRN ×2 (01:38→18:34)
[2018-10-24] MEDS ORDERED: PT OWN MED DRAWER 7, Y5N ONE ×3 (02:40→13:26)
[2018-10-24] MEDS: CEFOXITIN SODIUM 1 GM in DEXTROSE 5%-WATER - 100 ML IVPB SCH ×3 (02:46→15:43)
[2018-10-24] MEDS: IBUPROFEN 400 MG TABLET (FP) PO SCH ×4 (02:47→22:07)
[2018-10-24] MEDS: D5-1/2NS+20 MEQ KCL - 20 MEQ/1,000 ML INFUS.BAG IV SCH ×2 (06:16→17:09)
[2018-10-24 08:00] LABS: INR 1.04 (0.83-1.09); PROTHROMBIN TIME (PATIENT) 12.3 SEC (9.7-13.0)
[2018-10-24 08:01] LABS: BASO % 0.3 % (0-2.0); HEMATOCRIT 35.9 % (32.4-45.2); HEMOGLOBIN 11.8 GM/dL (10.7-15.3); LYMPH % 12.7 % (8-40); MCH 32.1 pg (25.7-33.7); MCHC 32.8 g/dl (32.0-36.0); MEAN PLT VOLUME 8.4 fl (7.5-11.1); MONO % 2.5 % (3.8-10.2); NEUT % 84.5 % (42.8-82.8); PLATELET COUNT 195 K/MM3 (134-434); RBC 3.67 M/mm3 (3.60-5.2); RDW 16.1 % (11.6-15.6); WHITE BLOOD COUNT 6.7 K/mm3 (4.0-10.0)
[2018-10-24 08:03] LABS: ACTIVATED PTT 36.9 SECONDS (25.2-36.5)
[2018-10-24 09:20] LABS: PHOSPHOROUS 3.9 mg/dL (2.5-4.9)
[2018-10-24] MEDS ORDERED: ENOXAPARIN NA (PORCINE) 30 MG/0.3 ML DISP.SYRIN SQ SCH ×2 (10:00)
[2018-10-24] MEDS: METOPROLOL TARTRATE 25 MG TABLET (FP) PO SCH ×2 (10:10→22:07)
[2018-10-24] MEDS: THIAMINE HCL 100 MG TABLET (FP) PO SCH (10:10)
[2018-10-24] MEDS: FOLIC ACID 1 MG TABLET (FP) PO SCH (10:11)
[2018-10-24] MEDS: amLODIPine BESYLATE 2.5 MG TABLET (FP) PO SCH (10:12)
[2018-10-24 11:19] LABS: ALBUMIN 3.1 g/dl (3.4-5.0); BILIRUBIN,TOTAL 0.3 mg/dL (0.2-1); CALCIUM 8.8 mg/dL (8.5-10.1); CHLORIDE 102 mmol/L (98-107); CREATININE 0.7 mg/dL (0.55-1.3); GLUCOSE,RANDOM 116 mg/dL (74-106); POTASSIUM 4.6 mmol/L (3.5-5.1); SGOT/AST 25 U/L (15-37); SODIUM 134 mmol/L (136-145); TOT PROT 7.8 g/dl (6.4-8.2)
[2018-10-24 11:32] LABS: BLOOD UREA NITROGEN 2 mg/dL (7-18)
[2018-10-24 11:43] LABS: ALK PHOS 103 U/L (45-117); ANION GAP 7 MMOL/L (8-16); CO2 25 mmol/L (21-32); SGPT/ALT 36 U/L (13-61)
--- NOTE | 2018-10-24 12:38 | PN ---
Progress Note, Physician History of Present Illness: stable c/o of pain in the abd no other issues - Current Medication List Current Medications: Active Medications Acetaminophen (Tylenol -) 650 mg PO Q6H [facility] Last Admin: 10/24/18 06:17 Dose: 650 mg Amlodipine Besylate (Norvasc -) 2.5 mg PO DAILY [facility] Last Admin: 10/24/18 10:12 Dose: 2.5 mg Enoxaparin Sodium (Lovenox -) 30 mg SQ DAILY [facility] Last Admin: 10/24/18 10:12 Dose: 30 mg Folic Acid (Folic Acid -) 1 mg PO DAILY [facility] Last Admin: 10/24/18 10:11 Dose: 1 mg Cefoxitin Sodium 1 gm/ (Dextrose) 100 mls @ 200 mls/hr IVPB Q6H-IV [facility]; Protocol Last Admin: 10/24/18 08:58 Dose: 200 mls/hr Potassium Chloride/Dextrose/Sod Cl (D5-1/2ns+20 Meq Kcl -) 20 meq in 1,000 mls @ 125 mls/hr IV ASDIR [facility] Last Admin: 10/24/18 06:16 Dose: 125 mls/hr Ibuprofen (Motrin -) 400 mg PO Q6H [facility] Last Admin: 10/24/18 08:57 Dose: 400 mg Metoprolol Tartrate (Lopressor -) 12.5 mg PO BID [facility] Last Admin: 10/24/18 10:10 Dose: 12.5 mg Thiamine HCl (Vitamin B1 -) 100 mg PO DAILY [facility] Last Admin: 10/24/18 10:10 Dose: 100 mg Tramadol HCl (Ultram -) 50 mg PO Q8H PRN PRN Reason: Pain Level 7 - 10 BREAKTHROUGH Last Admin: 10/24/18 01:38 Dose: 50 mg - Objective Vital Signs: Vital Signs Temperature 98.4 F 10/24/18 10:00 Pulse Rate 71 10/24/18 10:00 Respiratory Rate 18 10/24/18 10:00 Blood Pressure 120/83 10/24/18 10:00 O2 Sat by Pulse Oximetry (%) 98 10/24/18 09:00 Constitutional: Yes: No Distress, Calm Cardiovascular: Yes: Regular Rate and Rhythm Respiratory: Yes: Regular, CTA Bilaterally Gastrointestinal: Yes: Soft, Ascites, Hypoactive Bowel Sounds, Tenderness ( operated site) Musculoskeletal: Yes: WNL Extremities: Yes: WNL Neurological: Yes: Alert, Oriented Labs: CBC, BMP 10/24/18 07:00 10/24/18 07:00 INR, PTT INR 1.04 (0.83-1.09) 10/24/18 07:00 Fibrinogen 385.0 mg/dL (238-498) 10/21/18 00:19 Assessment/Plan Problem List - Problems (1) Chronic appendicitis Code(s): K36 - OTHER APPENDICITIS (2) Splenic infarct Code(s): D73.5 - INFARCTION OF SPLEEN (3) RLQ abdominal pain Code(s): R10.31 - RIGHT LOWER QUADRANT PAIN (4) Chills without fever Code(s): R68.83 - CHILLS (WITHOUT FEVER) (5) Diarrhea Code(s): R19.7 - DIARRHEA, UNSPECIFIED Qualifiers: Diarrhea type: unspecified type Qualified Code(s): R19.7 - Diarrhea, unspecified (6) Hypertension Code(s): I10 - ESSENTIAL (PRIMARY) HYPERTENSION Qualifiers: Hypertension type: essential hypertension Qualified Code(s): I10 - Essential (primary) hypertension (7) Tetrahydrocannabinol (THC) use disorder, moderate, dependence Code(s): F12.20 - CANNABIS DEPENDENCE, UNCOMPLICATED (8) Alcohol dependence Code(s): F10.20 - ALCOHOL DEPENDENCE, UNCOMPLICATED Qualifiers: Substance use status: uncomplicated Qualified Code(s): F10.20 - Alcohol dependence, uncomplicated plan if patient tolerating food can stop abx rest as per surgery and the team
--- NOTE | 2018-10-24 13:55 | PN ---
Physical Exam: SUBJECTIVE: Patient seen and examined at bedside. POD1 s/p lap appendectomy. Significant pain at surgical sites. No BMs/flatus as yet. Interview highly limited at patient request. OBJECTIVE: Vital Signs Period Temp Pulse Resp BP Sys/Enriquez Pulse Ox Last 24 Hr 97.3 F-98.4 F 56-75 16-20 97-160/60-95 98-100 GENERAL: A&Ox3, NAD HEENT: NC/AT, PERRLA, EOMI, MMM NECK: Trachea midline, full range of motion, supple. LUNGS: CTA b/l HEART: RRR no m/r/g ABDOMEN: patient refused abdominal and and all subsequent physical examination Laboratory Results - last 24 hr 10/21/18 10/21/18 10/23/18 18:00 18:00 12:14 WBC RBC Hgb Hct MCV MCH MCHC RDW Plt Count MPV Absolute Neuts (auto) Neutrophils % Lymphocytes % Monocytes % Eosinophils % Basophils % Nucleated RBC % PT with INR INR PTT (Actin FS) Saline-Adjusted PTT TNP PT Mixing Study 12.1 H PTT Patient/Cntrl Mix TNP PTT Normal Plasma Pre TNP LA PTT Baseline 43.9 dRVVT Confirm Interp 42.3 Lupus Anticoag Comment Comment: Sodium Potassium Chloride Carbon Dioxide Anion Gap BUN Creatinine Creat Clearance w eGFR Random Glucose Calcium Phosphorus Magnesium Total Bilirubin AST ALT Alkaline Phosphatase Total Protein Albumin Blood Type O POSITIVE Antibody Screen Negative 10/24/18 10/24/18 10/24/18 07:00 07:00 07:00 WBC 6.7 RBC 3.67 Hgb 11.8 Hct 35.9 MCV 98.0 H MCH 32.1 MCHC 32.8 RDW 16.1 H Plt Count 195 MPV 8.4 Absolute Neuts (auto) 5.6 Neutrophils % 84.5 H D Lymphocytes % 12.7 D Monocytes % 2.5 L Eosinophils % 0.0 D Basophils % 0.3 Nucleated RBC % 0 PT with INR 12.30 INR 1.04 PTT (Actin FS) 36.9 H Saline-Adjusted PTT PT Mixing Study PTT Patient/Cntrl Mix PTT Normal Plasma Pre LA PTT Baseline dRVVT Confirm Interp Lupus Anticoag Comment Sodium 134 L Potassium 4.6 Chloride 102 Carbon Dioxide 25 Anion Gap 7 L BUN 2 L* Creatinine 0.7 Creat Clearance w eGFR 89.31 Random Glucose 116 H Calcium 8.8 Phosphorus 3.9 Magnesium 2.0 Total Bilirubin 0.3 AST 25 ALT 36 Alkaline Phosphatase 103 Total Protein 7.8 Albumin 3.1 L Blood Type Antibody Screen Active Medications Generic Name Dose Route Start Last Admin Trade Name Freq PRN Reason Stop Dose Admin Acetaminophen 650 mg 10/24/18 00:00 10/24/18 06:17 Tylenol - PO 650 mg Q6H KRISTYN Administration Amlodipine Besylate 2.5 mg 10/24/18 10:00 10/24/18 10:12 Norvasc - PO 2.5 mg DAILY KRISTYN Administration Enoxaparin Sodium 30 mg 10/24/18 10:00 10/24/18 10:12 Lovenox - SQ 30 mg DAILY KRISTYN Administration Folic Acid 1 mg 10/24/18 10:00 10/24/18 10:11 Folic Acid - PO 1 mg DAILY KRISTYN Administration Cefoxitin Sodium 1 gm/ 100 mls @ 200 mls/hr 10/23/18 21:00 10/24/18 08:58 Dextrose IVPB 200 mls/hr Q6H-IV KRISTYN Administration Protocol Potassium Chloride/Dextrose/Sod Cl 20 meq in 1,000 mls @ 125 mls/hr 10/23/18 19:26 10/24/18 06:16 D5-1/2ns+20 Meq Kcl - IV 125 mls/hr ASDIR KRISTYN Administration Ibuprofen 400 mg 10/23/18 21:00 10/24/18 08:57 Motrin - PO 400 mg Q6H KRISTYN Administration Metoprolol Tartrate 12.5 mg 10/23/18 22:00 10/24/18 10:10 Lopressor - PO 12.5 mg BID KRISTYN Administration Thiamine HCl 100 mg 10/24/18 10:00 10/24/18 10:10 Vitamin B1 - PO 100 mg DAILY KRISTYN Administration Tramadol HCl 50 mg 10/23/18 19:26 10/24/18 01:38 Ultram - PO 50 mg Q8H PRN Administration Pain Level 7 - 10 BREAKTHROUGH ASSESSMENT/PLAN: 48 y/o F w/ PMHx HTN, polysubstance abuse (cocaine, marijuana), 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 #subacute/chronic appendicitis -POD 1 s/p laparoscopic appendectomy -appendix was found enlarged, inflamed, with adhesions -pain mgmt as per Sx -cleared by ID to hold ABx -IS -resumed diet #h/o splenic infarct -AC held -hematology following #HTN -cont norvasc, lopressor #FEN -D51/2NS+20meqK @ 125 cc/hr -monitor and replete electrolytes -regular diet #PPx -DVT: held in anticipation of surgery -GI: not indicated #code -full #dispo -cont to monitor on med/surg -discharge pending BM Visit type - Emergency Visit Emergency Visit: No - New Patient This patient is new to me today: No - Critical Care Critical Care patient: No
--- NOTE | 2018-10-24 14:25 | PN ---
Progress Note, Physician Chief Complaint: s/p lap appendectomy under general anesthesia post op day one History of Present Illness: s/p appendicitis and lap appendectomy - Current Medication List Current Medications: Active Medications Acetaminophen (Tylenol -) 650 mg PO Q6H [facility] Last Admin: 10/24/18 13:44 Dose: 650 mg Amlodipine Besylate (Norvasc -) 2.5 mg PO DAILY [facility] Last Admin: 10/24/18 10:12 Dose: 2.5 mg Enoxaparin Sodium (Lovenox -) 30 mg SQ DAILY [facility] Last Admin: 10/24/18 10:12 Dose: 30 mg Folic Acid (Folic Acid -) 1 mg PO DAILY [facility] Last Admin: 10/24/18 10:11 Dose: 1 mg Cefoxitin Sodium 1 gm/ (Dextrose) 100 mls @ 200 mls/hr IVPB Q6H-IV KRISTYN; Protocol Last Admin: 10/24/18 08:58 Dose: 200 mls/hr Potassium Chloride/Dextrose/Sod Cl (D5-1/2ns+20 Meq Kcl -) 20 meq in 1,000 mls @ 125 mls/hr IV ASDIR [facility] Last Admin: 10/24/18 06:16 Dose: 125 mls/hr Ibuprofen (Motrin -) 400 mg PO Q6H [facility] Last Admin: 10/24/18 08:57 Dose: 400 mg Metoprolol Tartrate (Lopressor -) 12.5 mg PO BID [facility] Last Admin: 10/24/18 10:10 Dose: 12.5 mg Thiamine HCl (Vitamin B1 -) 100 mg PO DAILY [facility] Last Admin: 10/24/18 10:10 Dose: 100 mg Tramadol HCl (Ultram -) 50 mg PO Q8H PRN PRN Reason: Pain Level 7 - 10 BREAKTHROUGH Last Admin: 10/24/18 01:38 Dose: 50 mg - Objective Vital Signs: Vital Signs Temperature 98.4 F 10/24/18 10:00 Pulse Rate 71 10/24/18 10:00 Respiratory Rate 18 10/24/18 10:00 Blood Pressure 120/83 10/24/18 10:00 O2 Sat by Pulse Oximetry (%) 98 10/24/18 09:00 Constitutional: Yes: Well Nourished Cardiovascular: Yes: WNL Respiratory: Yes: WNL Gastrointestinal: Yes: WNL Labs: CBC, BMP 10/24/18 07:00 03/29/19 07:00 INR, PTT INR 1.04 (0.83-1.09) 10/24/18 07:00 Fibrinogen 385.0 mg/dL (238-498) 10/21/18 00:19 Assessment/Plan Pain controlled with tylenol and motrin, patient states she does not want to take narcotics. No adverse effects of anesthetics. will sign off care at this point.
--- NOTE | 2018-10-24 18:15 | PN ---
Progress Note, Physician History of Present Illness: Patient with RLQ pain, still with pain and tenderness, splenic infarction discovered 1m ago, who was on outpatient coumadin with intermittent compliance and polysubstance abuse, who had questionable appendicitis last month with the start of her symptoms as well. She also had a UTI before, and had been treated with antibiotics, which she also only finished part of the course of. CT was repeated with po and iv contrast and all recent scans discussed with Dr. Warner of radiology - appendix appeared inflamed in August, and on most recent scan has some air in the lumen with a prominent wall but no surrounding inflammatory changes. This is suggestive of a possible partially treated appendicitis, and though the appendix does not clearly appear inflamed now, it is also not clearly normal. The splenic infarct is smaller and now appears chronic, not acute/subacute. Her case has been discussed at length with hematology. Was given vitamin K Saturday night. INR is now essentially normal. PTT had remained elevated for unclear reasons - mixing study sent with no lupus anticoagulant currently detected. She had lap appy yesterday and is now on prophylactic lovenox. Feeling ok, but still with incisional pain, less in RLQ. No gas or stool yet since OR. Tolerating diet, but only had very little for breakfast or lunch, just had fish for dinner. States she feels a bit dizzy when ambulating, has not really walked in halls yet. No nausea, no fevers. Standing tylenol and ibuprofen helping with pain, but not fully. Reminded her that she can ask for tramadol prn if needed. INR and PTT normal today. - Current Medication List Current Medications: Active Medications Acetaminophen (Tylenol -) 650 mg PO Q6H [facility] Last Admin: 10/24/18 13:44 Dose: 650 mg Amlodipine Besylate (Norvasc -) 2.5 mg PO DAILY KRISTYN Last Admin: 10/24/18 10:12 Dose: 2.5 mg Enoxaparin Sodium (Lovenox -) 30 mg SQ DAILY KRISTYN Last Admin: 10/24/18 10:12 Dose: 30 mg Folic Acid (Folic Acid -) 1 mg PO DAILY KRISTYN Last Admin: 10/24/18 10:11 Dose: 1 mg Ibuprofen (Motrin -) 400 mg PO Q6H KRISTYN Last Admin: 10/24/18 15:42 Dose: 400 mg Metoprolol Tartrate (Lopressor -) 12.5 mg PO BID [facility] Last Admin: 10/24/18 10:10 Dose: 12.5 mg Thiamine HCl (Vitamin B1 -) 100 mg PO DAILY [facility] Last Admin: 10/24/18 10:10 Dose: 100 mg Tramadol HCl (Ultram -) 50 mg PO Q8H PRN PRN Reason: Pain Level 7 - 10 BREAKTHROUGH Last Admin: 10/24/18 01:38 Dose: 50 mg - Objective Vital Signs: Vital Signs Temperature 98.0 F 10/24/18 14:11 Pulse Rate 65 10/24/18 14:11 Respiratory Rate 18 10/24/18 14:11 Blood Pressure 111/75 10/24/18 14:11 O2 Sat by Pulse Oximetry (%) 98 10/24/18 09:00 Constitutional: Yes: No Distress, Calm, Thin Eyes: Yes: Conjunctiva Clear, EOM Intact HENT: Yes: Atraumatic, Normocephalic Gastrointestinal: Yes: Soft, Distention (with some tympany), Tenderness (more incisional - RLQ now much less tender, umbilical site more tender than other two ). No: Tenderness, Rebound Extremities: No: Cool, Cyanosis Integumentary: Yes: Incision (x3 dressed). No: Jaundice, Rash Wound/Incision: Yes: Dressing Dry and Intact (x3). No: Dressing Removed Neurological: Yes: Alert, Oriented Labs: CBC, BMP 10/24/18 07:00 10/24/18 07:00 INR, PTT INR 1.04 (0.83-1.09) 10/24/18 07:00 PTT 36.9 10/24/18 07:00 Problem List - Problems (1) Chronic appendicitis Assessment/Plan: probable partially treated appendicitis POD1 s/p laparoscopic appendectomy back on diet will stop IVF ok to stop antibiotics now pain managed with standing tylenol and ibuprofen; tramadol ok prn await bowel function f/u pathology encourage OOB/ambulation, IS use BP seems ok - not sure why pt would be dizzy walking Spoke with Dr. Hdz last night, and Dr. Adame today. Plan is for full reanticoagulation when ok after surgery for at least next 2 months for splenic infarct. Should be able to resume coumadin starting tomorrow night, full-dose Lovenox Jose am if no bleeding concerns by then. She does not have a PMD and will need to be connected to medicine as outpatient to follow her coumadin and course after discharge. She also knows she needs colonoscopy at some point as well, but will have to wait 6-8 wks after appendectomy. May be able to do scope after anticoagulation can possibly be d/c'd in another 2 months? GI and hematology will have to coordinate with medicine. May take a little longer to achieve therapeutic levels of coumadin after vitamin K earlier in week. Defer to hematology regarding need to complete bridging and timing of discharge. Will stop ibuprofen on Saturday, hopefully by then tylenol and prn tramadol will be enough for pain Code(s): K36 - OTHER APPENDICITIS (2) Splenic infarct Assessment/Plan: now chronic by CT - decreased in size per radiologist, no longer acute/subacute appearing need to follow coags daily see above Code(s): D73.5 - INFARCTION OF SPLEEN (3) RLQ abdominal pain Assessment/Plan: improved Code(s): R10.31 - RIGHT LOWER QUADRANT PAIN (4) Diarrhea Assessment/Plan: resolved Code(s): R19.7 - DIARRHEA, UNSPECIFIED Qualifiers: Diarrhea type: unspecified type Qualified Code(s): R19.7 - Diarrhea, unspecified (5) Hypertension Assessment/Plan: on home meds, med managing Code(s): I10 - ESSENTIAL (PRIMARY) HYPERTENSION Qualifiers: Hypertension type: essential hypertension Qualified Code(s): I10 - Essential (primary) hypertension (6) Tetrahydrocannabinol (THC) use disorder, moderate, dependence Code(s): F12.20 - CANNABIS DEPENDENCE, UNCOMPLICATED (7) Alcohol dependence Code(s): F10.20 - ALCOHOL DEPENDENCE, UNCOMPLICATED Qualifiers: Substance use status: uncomplicated Qualified Code(s): F10.20 - Alcohol dependence, uncomplicated
--- NOTE | 2018-10-24 19:45 | PN ---
Progress Note (short form) - Note Progress Note: Patient seen and eamined Post op. laparoscopic appendectomy recovering 10ml blood loss AFVSS Cor: RSR, No murmurs, No gallops Lungs: Clear to P&A Abd: Soft, Normal bowel sounds, No organomegaly Ext:No significant edema Labs/Meds reviewed A/P 48 y/o patient with nausea, vomiting, alcohol use, cocaine use, marijuana use, RLQ pain, recent admission for splenic infarct, appendicitis---s/p appendectomy per 10/23 Clinically no e/o bleeding post op repeat LAC negative splenic infarct Continue prophylactic lovenox for now. will initiate full dose lovenox/cumadin bridging vs NOAC when surgery clears for full dose a/c will need to reweigh in beneftits/rsiks of a/c given substance abuse
--- NOTE | 2018-10-24 20:18 | PN ---
Teaching Attending Note Name of Resident: Suhail Lal ATTENDING PHYSICIAN STATEMENT I saw and evaluated the patient. I reviewed the resident's note and discussed the case with the resident. I agree with the resident's findings and plan as documented. SUBJECTIVE: Ongoing RLQ abdominal pain - no further vomiting. No fever/chills. No flatus/BM. No diarrhea. No hematochezia/melena. OBJECTIVE: Afebrile, Hemodynamically Stable. Last Vital Signs Temp Pulse Resp BP Pulse Ox 98.2 F 63 18 118/80 98 10/24/18 18:47 10/24/18 18:47 10/24/18 18:47 10/24/18 18:47 10/24/18 09:00 Heart - S1, S2, RRR Lungs - clear to auscultation Abdomen - Abdomen generally tender, worse in RLQ Laboratory Results - last 24 hr 10/21/18 10/21/18 10/24/18 18:00 18:00 07:00 WBC 6.7 RBC 3.67 Hgb 11.8 Hct 35.9 MCV 98.0 H MCH 32.1 MCHC 32.8 RDW 16.1 H Plt Count 195 MPV 8.4 Absolute Neuts (auto) 5.6 Neutrophils % 84.5 H D Lymphocytes % 12.7 D Monocytes % 2.5 L Eosinophils % 0.0 D Basophils % 0.3 Nucleated RBC % 0 PT with INR INR PTT (Actin FS) Saline-Adjusted PTT TNP PT Mixing Study 12.1 H PTT Patient/Cntrl Mix TNP PTT Normal Plasma Pre TNP LA PTT Baseline 43.9 dRVVT Confirm Interp 42.3 Lupus Anticoag Comment Comment: Sodium Potassium Chloride Carbon Dioxide Anion Gap BUN Creatinine Creat Clearance w eGFR Random Glucose Calcium Phosphorus Magnesium Total Bilirubin AST ALT Alkaline Phosphatase Total Protein Albumin 10/24/18 10/24/18 07:00 07:00 WBC RBC Hgb Hct MCV MCH MCHC RDW Plt Count MPV Absolute Neuts (auto) Neutrophils % Lymphocytes % Monocytes % Eosinophils % Basophils % Nucleated RBC % PT with INR 12.30 INR 1.04 PTT (Actin FS) 36.9 H Saline-Adjusted PTT PT Mixing Study PTT Patient/Cntrl Mix PTT Normal Plasma Pre LA PTT Baseline dRVVT Confirm Interp Lupus Anticoag Comment Sodium 134 L Potassium 4.6 Chloride 102 Carbon Dioxide 25 Anion Gap 7 L BUN 2 L* Creatinine 0.7 Creat Clearance w eGFR 89.31 Random Glucose 116 H Calcium 8.8 Phosphorus 3.9 Magnesium 2.0 Total Bilirubin 0.3 AST 25 ALT 36 Alkaline Phosphatase 103 Total Protein 7.8 Albumin 3.1 L Current Medications Generic Name Dose Route Start Last Admin Trade Name Freq PRN Reason Stop Dose Admin Acetaminophen 650 mg 10/24/18 00:00 10/24/18 18:59 Tylenol - PO 650 mg Q6H KRISTYN Administration Amlodipine Besylate 2.5 mg 10/24/18 10:00 10/24/18 10:12 Norvasc - PO 2.5 mg DAILY KRISTYN Administration Enoxaparin Sodium 30 mg 10/24/18 10:00 10/24/18 10:12 Lovenox - SQ 30 mg DAILY KRISTYN Administration Folic Acid 1 mg 10/24/18 10:00 10/24/18 10:11 Folic Acid - PO 1 mg DAILY KRISTYN Administration Ibuprofen 400 mg 10/23/18 21:00 10/24/18 15:42 Motrin - PO 400 mg Q6H KRISTYN Administration Metoprolol Tartrate 12.5 mg 10/23/18 22:00 10/24/18 10:10 Lopressor - PO 12.5 mg BID KRISTYN Administration Thiamine HCl 100 mg 10/24/18 10:00 10/24/18 10:10 Vitamin B1 - PO 100 mg DAILY KRISTYN Administration Tramadol HCl 50 mg 10/23/18 19:26 10/24/18 18:34 Ultram - PO 50 mg Q8H PRN Administration Pain Level 7 - 10 BREAKTHROUGH ASSESSMENT AND PLAN: 48 year old female with history of HTN, Polysubstance Abuse, HX CVA, recent splenic infarct (on Coumadin), presented with intractable RLQ pain. 1. Acute Appendicitis - POD 1 s/p Laparoscopic Appendectomy CT A/P and Transvaginal US noted. Currently afebrile, hemodynamically stable. Discontinue IV Fluids. Discontinue Abx Advance diet as per Surgery 2. Elevated aPTT, etiology unclear, currently corrected/resolved Improved s/p FFP, Vitamin K Mixing Studies - no Lupus anticoagulant detected. Hematology following. No active bleeding - patient actually has a history of thrombosis rather than thrombophilia. 3. Acute Splenic Infarct, recently started on Coumadin, currently held. Received FFP/Vitamin K. Will resume Coumadin tonight. 4. 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 No evidence of alcohol withdrawal. Repeat LFTs normal. 5. HTN - Continued on Metoprolol and Amlodipine. 6. Polysubstance Abuse - (Cocaine/THC/Alcohol). Counselled. Declines Rehab/ Detox currently. Continue Thiamine, Folic Acid, MVI. 7. Hypomagnesemia - repleted. 8. Macrocytosis - likely sec to Alcohol excess. B12/Folate levels normal - 792/ 19. DVT Px - SCDs. Coumadin resumed.
[2018-10-24] MEDS ORDERED: WARFARIN NA 5 MG TABLET (UD) PO SCH (20:30)
[2018-10-25] MEDS: ACETAMINOPHEN 325 MG TABLET (FP) PO SCH ×5 (01:25→23:54)
[2018-10-25] MEDS: traMADol HCL 50 MG TABLET PO PRN ×2 (01:40→20:04)
[2018-10-25] MEDS: IBUPROFEN 400 MG TABLET (FP) PO SCH ×4 (04:36→21:03)
[2018-10-25] MEDS ORDERED: SODIUM CHLORIDE 1,000 ML IV STA (07:29)
--- NOTE | 2018-10-25 07:54 | PN ---
Physical Exam: SUBJECTIVE: Patient seen and examined at bedside. Patient c/o abdominal pain, but states controlled w/ Meds. patient lethargic and declines to eat while feeling "weak and sleepy". Hypotensive this AM. OBJECTIVE: Vital Signs Period Temp Pulse Resp BP Sys/Enriquez Pulse Ox Last 24 Hr 98.0 F-98.5 F 63-79 18-18 83-122/53-83 98-98 GENERAL: The patient is lethargic but oriented, in no acute distress. LUNGS: Breath sounds equal, clear to auscultation bilaterally, no wheezes, no crackles, no accessory muscle use. HEART: Regular rate and rhythm, S1, S2 without murmur, rub or gallop. ABDOMEN: Soft, nondistended, tender to palpation in the RLQ, normoactive bowel sounds, no guarding, no rebound, no hepatosplenomegaly, no masses. EXTREMITIES: 2+ pulses, warm, well-perfused, no edema. NEUROLOGICAL: Cranial nerves II through X grossly intact. Normal speech, gait not observed. SKIN: Warm, dry, normal turgor, no rashes or lesions noted Laboratory Results - last 24 hr 10/21/18 10/24/18 10/24/18 18:00 07:00 07:00 WBC 6.7 RBC 3.67 Hgb 11.8 Hct 35.9 MCV 98.0 H MCH 32.1 MCHC 32.8 RDW 16.1 H Plt Count 195 MPV 8.4 Absolute Neuts (auto) 5.6 Neutrophils % 84.5 H D Lymphocytes % 12.7 D Monocytes % 2.5 L Eosinophils % 0.0 D Basophils % 0.3 Nucleated RBC % 0 PT with INR INR PTT (Actin FS) Saline-Adjusted PTT TNP PT Mixing Study 12.1 H PTT Patient/Cntrl Mix TNP PTT Normal Plasma Pre TNP Sodium 134 L Potassium 4.6 Chloride 102 Carbon Dioxide 25 Anion Gap 7 L BUN 2 L* Creatinine 0.7 Creat Clearance w eGFR 89.31 Random Glucose 116 H Calcium 8.8 Phosphorus 3.9 Magnesium 2.0 Total Bilirubin 0.3 AST 25 ALT 36 Alkaline Phosphatase 103 Total Protein 7.8 Albumin 3.1 L 10/24/18 07:00 WBC RBC Hgb Hct MCV MCH MCHC RDW Plt Count MPV Absolute Neuts (auto) Neutrophils % Lymphocytes % Monocytes % Eosinophils % Basophils % Nucleated RBC % PT with INR 12.30 INR 1.04 PTT (Actin FS) 36.9 H Saline-Adjusted PTT PT Mixing Study PTT Patient/Cntrl Mix PTT Normal Plasma Pre Sodium Potassium Chloride Carbon Dioxide Anion Gap BUN Creatinine Creat Clearance w eGFR Random Glucose Calcium Phosphorus Magnesium Total Bilirubin AST ALT Alkaline Phosphatase Total Protein Albumin Active Medications Generic Name Dose Route Start Last Admin Trade Name Freq PRN Reason Stop Dose Admin Acetaminophen 650 mg 10/24/18 00:00 10/25/18 05:35 Tylenol - PO 650 mg Q6H KRISTYN Administration Amlodipine Besylate 2.5 mg 10/24/18 10:00 10/24/18 10:12 Norvasc - PO 2.5 mg DAILY KRISTYN Administration Folic Acid 1 mg 10/24/18 10:00 10/24/18 10:11 Folic Acid - PO 1 mg DAILY KRISTYN Administration Sodium Chloride 1,000 mls @ 1,000 mls/hr 10/25/18 07:29 Normal Saline - IV 10/25/18 08:28 ASDIR STA Ibuprofen 400 mg 10/23/18 21:00 10/25/18 04:36 Motrin - PO Not Given Q6H KRISTYN Metoprolol Tartrate 12.5 mg 10/23/18 22:00 10/24/18 22:07 Lopressor - PO 12.5 mg BID KRISTYN Administration Thiamine HCl 100 mg 10/24/18 10:00 10/24/18 10:10 Vitamin B1 - PO 100 mg DAILY KRISTYN Administration Tramadol HCl 50 mg 10/23/18 19:26 10/25/18 01:40 Ultram - PO 50 mg Q8H PRN Administration Pain Level 7 - 10 BREAKTHROUGH ASSESSMENT/PLAN: 48 y/o F w/ PMHx HTN, polysubstance abuse (cocaine, marijuana), 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 #subacute/chronic appendicitis -POD 2 s/p laparoscopic appendectomy -pain mgmt as per Sx -observing off ABx -resumed diet; encouraging #Hypotension likely 2/2 dehydration in the setting of poor PO intake -s/p 1L bolus NS w/o improvement in BP -will give 1L LR now -will start LR @ 125 until patient's appetite improves #h/o splenic infarct -AC held -hematology following #HTN -holding norvasc, lopressor while hypotensive #FEN -LR @ 125 -monitor and replete electrolytes -regular diet #PPx -DVT: held in anticipation of surgery -GI: not indicated #dispo -admit med/surg Visit type - Emergency Visit Emergency Visit: Yes ED Registration Date: 10/19/18 Care time: The patient presented to the Emergency Department on the above date and was hospitalized for further evaluation of their emergent condition. - New Patient This patient is new to me today: Yes Date on this admission: 10/25/18 - Critical Care Critical Care patient: No - Discharge Referral Referred to [facility] No
[2018-10-25 08:36] LABS: BASO % 0.3 % (0-2.0); EOS % 0.1 % (0-4.5); HEMATOCRIT 36.3 % (32.4-45.2); HEMOGLOBIN 11.8 GM/dL (10.7-15.3); LYMPH % 7.8 % (8-40); MCHC 32.4 g/dl (32.0-36.0); MEAN CELL VOLUME 98.5 fl (80-96); MEAN PLT VOLUME 8.9 fl (7.5-11.1); MONO % 2.8 % (3.8-10.2); PLATELET COUNT 184 K/MM3 (134-434); RBC 3.68 M/mm3 (3.60-5.2); RDW 16.6 % (11.6-15.6); WHITE BLOOD COUNT 7.7 K/mm3 (4.0-10.0)
[2018-10-25 09:03] LABS: ANION GAP 7 MMOL/L (8-16); BLOOD UREA NITROGEN 12 mg/dL (7-18); CALCIUM 8.3 mg/dL (8.5-10.1); CHLORIDE 106 mmol/L (98-107); CO2 23 mmol/L (21-32); CREATININE 0.8 mg/dL (0.55-1.3); GLUCOSE,RANDOM 86 mg/dL (74-106); MAGNESIUM 1.7 mg/dL (1.8-2.4); PHOSPHOROUS 2.7 mg/dL (2.5-4.9); SODIUM 135 mmol/L (136-145)
[2018-10-25] MEDS ORDERED: PT OWN MED DRAWER 7, Y5N ONE (09:56)
[2018-10-25] MEDS: FOLIC ACID 1 MG TABLET (FP) PO SCH (10:18)
[2018-10-25] MEDS: METOPROLOL TARTRATE 25 MG TABLET (FP) PO SCH (10:19)
[2018-10-25] MEDS: amLODIPine BESYLATE 2.5 MG TABLET (FP) PO SCH (10:19)
[2018-10-25] MEDS: THIAMINE HCL 100 MG TABLET (FP) PO SCH (10:20)
--- NOTE | 2018-10-25 10:43 | PN ---
Progress Note (short form) - Note Progress Note: Discussed with Dr. Day To consider lovenox full dose --- 30mg SC bid when cleared by surgery D/C planning with 30mg SC bid of lovenox consider bridging to coumadin out patient f/u hematology as outpatient
[2018-10-25] MEDS ORDERED: LACTATED RINGERS SOLUTION 1,000 ML/1,000 ML INFUS.BAG IV SCH (10:45)
--- NOTE | 2018-10-25 15:37 | PN ---
Progress Note, Physician History of Present Illness: Patient with RLQ pain recurrent/persistent, and splenic infarction discovered 1m ago, who was on outpatient coumadin with intermittent compliance and polysubstance abuse, who had questionable appendicitis last month with the start of her symptoms as well. She also had a UTI before, and had been treated with antibiotics, which she also only finished part of the course of. CT was repeated with po and iv contrast and all recent scans discussed with Dr. Warner of radiology - appendix appeared inflamed in August, and on most recent scan has some air in the lumen with a prominent wall but no surrounding inflammatory changes. This is suggestive of a possible partially treated appendicitis, and though the appendix does not clearly appear inflamed now, it is also not clearly normal. The splenic infarct is smaller and now appears chronic, not acute/subacute. Her case has been discussed at length with hematology. Was given vitamin K Saturday night. INR is now normal. PTT had remained elevated for unclear reasons - mixing study sent with no lupus anticoagulant currently detected. She had lap appy , and PTT has been normal since then. Pt c/o feeling weak, sleepy, dizzy, not wanting to eat; moved bowels multiple times, abdomen a little less distended but still with pain. Tolerating diet, but not eating much at all. Standing tylenol and ibuprofen on for pain, with tramadol prn last used early this am. She is seen and examined in bed. Sleepy/lethargic. Encouraged strongly to sit up , sit in chair, eat/drink, ambulate as able. She got IVF bolus earlier from medical team. BP was in 80s this morning, last recorded is 108/69 3 hrs ago with pulse 83. HTN meds are held. - Current Medication List Current Medications: Active Medications Acetaminophen (Tylenol -) 650 mg PO Q6H [facility] [place] Last Admin: 10/25/18 12:58 Dose: 650 mg Amlodipine Besylate (Norvasc -) 2.5 mg PO DAILY [facility] [place] Last Admin: 10/25/18 10:19 Dose: Not Given Folic Acid (Folic Acid -) 1 mg PO DAILY [facility] [place] Last Admin: 10/25/18 10:18 Dose: 1 mg Ibuprofen (Motrin -) 400 mg PO Q6H [facility] Last Admin: 10/25/18 10:18 Dose: 400 mg Metoprolol Tartrate (Lopressor -) 12.5 mg PO BID [facility] [place] Last Admin: 10/25/18 10:19 Dose: Not Given Thiamine HCl (Vitamin B1 -) 100 mg PO DAILY [facility] [place] Last Admin: 10/25/18 10:20 Dose: 100 mg Tramadol HCl (Ultram -) 50 mg PO Q8H PRN PRN Reason: Pain Level 7 - 10 BREAKTHROUGH Last Admin: 10/25/18 01:40 Dose: 50 mg - Objective Vital Signs: Vital Signs Temperature 99.9 F H 10/25/18 14:26 Pulse Rate 82 10/25/18 14:26 Respiratory Rate 20 10/25/18 14:26 Blood Pressure 96/54 L 10/25/18 14:26 O2 Sat by Pulse Oximetry (%) 98 10/25/18 09:00 Vital Signs Period Temp Pulse Resp BP Sys/Enriquez Pulse Ox Last 24 Hr 98.0 F-99.9 F 63-92 16-20 80-122/50-82 98-98 Constitutional: Yes: No Distress, Calm, Thin Eyes: Yes: Conjunctiva Clear, EOM Intact HENT: Yes: Atraumatic, Normocephalic Gastrointestinal: Yes: Soft, Distention (little less than yesterday), Tenderness (RLQ, little less RUQ, also incisional, no rebound/guarding) Extremities: No: Cool, Cyanosis Integumentary: Yes: Incision (x3 dressed). No: Jaundice, Rash Wound/Incision: Yes: Steri Strips (c/d/i x 3 sites), Open to air (left open to air), Dressing Dry and Intact (x3), Dressing Removed (x3). No: Draining, Reddened Neurological: Yes: Alert, Oriented, Lethargy Labs: CBC, BMP 10/25/18 07:45 10/25/18 07:45 Mg 1.7 today Problem List - Problems (1) Chronic appendicitis Assessment/Plan: probable partially treated appendicitis - await pathology POD2 s/p laparoscopic appendectomy back on diet but not eating/drinking much off antibiotics pain managed with standing tylenol and ibuprofen - tramadol prn, but would hold if hypotension continues still with pain and tenderness dressings removed, incisions c/d/i moving bowels encourage OOB/ambulation, IS use BP low, pt weak/dizzy/lethargic - not eating/drinking well encouraged po intake, may need IV fluids back for longer if not improving May resume coumadin tonight, full-dose Lovenox tomorrow am. She does not have a PMD and will need to be connected to medicine as outpatient to follow her coumadin and course after discharge. She also knows she needs colonoscopy at some point as well, but will have to wait 6-8 wks after appendectomy. May be able to do scope after anticoagulation can possibly be d/c' d in another 2 months? GI and hematology will have to coordinate with medicine. May take a little longer to achieve therapeutic levels of coumadin after vitamin K earlier in week. Defer to hematology regarding need to complete bridging and timing of discharge. Will make ibuprofen prn only tomorrow, to limit NSAIDs once anticoagulated Code(s): K36 - OTHER APPENDICITIS (2) Splenic infarct Assessment/Plan: now chronic by CT - decreased in size per radiologist, no longer acute/subacute appearing need to follow coags daily with resumption of anticoagulation prophylactic lovenox was ordered postop - would resume for today see above Code(s): D73.5 - INFARCTION OF SPLEEN (3) RLQ abdominal pain Assessment/Plan: improved but not resolved Code(s): R10.31 - RIGHT LOWER QUADRANT PAIN (4) Hypertension Assessment/Plan: held for hypotension defer mgmt to primary team Code(s): I10 - ESSENTIAL (PRIMARY) HYPERTENSION Qualifiers: Hypertension type: essential hypertension Qualified Code(s): I10 - Essential (primary) hypertension (5) Tetrahydrocannabinol (THC) use disorder, moderate, dependence Code(s): F12.20 - CANNABIS DEPENDENCE, UNCOMPLICATED (6) Alcohol dependence Code(s): F10.20 - ALCOHOL DEPENDENCE, UNCOMPLICATED Qualifiers: Substance use status: uncomplicated Qualified Code(s): F10.20 - Alcohol dependence, uncomplicated
--- NOTE | 2018-10-25 16:04 | PN ---
Teaching Attending Note Name of Resident: Bradley Roy ATTENDING PHYSICIAN STATEMENT I saw and evaluated the patient. I reviewed the resident's note and discussed the case with the resident. I agree with the resident's findings and plan as documented. SUBJECTIVE: Ongoing RLQ abdominal pain - poor appetite, but no further vomiting. No fever/chills. No flatus/BM. No diarrhea. No hematochezia/melena. OBJECTIVE: Afebrile, T max 99.9, Hemodynamically Stable. Last Vital Signs Temp Pulse Resp BP Pulse Ox 99.9 F H 82 20 96/54 L 98 10/25/18 14:26 10/25/18 14:26 10/25/18 14:26 10/25/18 14:26 10/25/18 09:00 Heart - S1, S2, RRR Lungs - clear to auscultation Abdomen - Abdomen generally tender, worse in RLQ Laboratory Results - last 24 hr 10/25/18 10/25/18 07:45 07:45 WBC 7.7 RBC 3.68 Hgb 11.8 Hct 36.3 MCV 98.5 H MCH 32.0 MCHC 32.4 RDW 16.6 H Plt Count 184 MPV 8.9 Absolute Neuts (auto) 6.9 Neutrophils % 89.0 H Lymphocytes % 7.8 L D Monocytes % 2.8 L Eosinophils % 0.1 D Basophils % 0.3 Nucleated RBC % 0 Sodium 135 L Potassium 4.0 Chloride 106 Carbon Dioxide 23 Anion Gap 7 L BUN 12 Creatinine 0.8 Creat Clearance w eGFR 76.56 Random Glucose 86 Calcium 8.3 L Phosphorus 2.7 Magnesium 1.7 L Current Medications Generic Name Dose Route Start Last Admin Trade Name Jeysonq PRN Reason Stop Dose Admin Acetaminophen 650 mg 10/24/18 00:00 10/25/18 12:58 Tylenol - PO 650 mg Q6H [facility] Administration Amlodipine Besylate 2.5 mg 10/24/18 10:00 10/25/18 10:19 Norvasc - PO Not Given DAILY [facility] Folic Acid 1 mg 10/24/18 10:10/25/18 10:18 Folic Acid - PO 1 mg DAILY [facility] Administration Ibuprofen 400 mg 10/23/18 21:00 10/25/18 10:18 Motrin - PO 400 mg Q6H [facility] Administration Metoprolol Tartrate 12.5 mg 10/23/18 22:00 10/25/18 10:19 Lopressor - PO Not Given BID [facility] Thiamine HCl 100 mg 10/24/18 10:00 10/25/18 10:20 Vitamin B1 - PO 100 mg DAILY [facility] Administration Tramadol HCl 50 mg 10/23/18 19:26 10/25/18 01:40 Ultram - PO 50 mg Q8H PRN Administration Pain Level 7 - 10 BREAKTHROUGH ASSESSMENT AND PLAN: 48 year old female with history of HTN, Polysubstance Abuse, HX CVA, recent splenic infarct (on Coumadin), presented with intractable RLQ pain. 1. Acute Appendicitis - POD 2 s/p Laparoscopic Appendectomy CT A/P and Transvaginal US noted. Currently afebrile, mild hypotension (likely secondary to poor oral intake - will give bolus and IV hydration until oral intake picks up). Abx discontinued Advance diet as per Surgery 2. Elevated aPTT, etiology unclear, currently corrected/resolved Improved s/p FFP, Vitamin K Mixing Studies - no Lupus anticoagulant detected. Hematology following. No active bleeding - patient actually has a history of thrombosis rather than thrombophilia. 3. Acute Splenic Infarct, recently started on Coumadin, currently held. Received FFP/Vitamin K. Coumadin order discontinued by Hematology - will resume tonight with Lovenox bridging as per Hematology recommendations. 4. 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 No evidence of alcohol withdrawal. Repeat LFTs normal. 5. HTN - Continued on Metoprolol and Amlodipine. 6. Polysubstance Abuse - (Cocaine/THC/Alcohol). Counselled. Declines Rehab/ Detox currently. Continue Thiamine, Folic Acid, MVI. 7. Hypomagnesemia - repleted. 8. Macrocytosis - likely sec to Alcohol excess. B12/Folate levels normal - 792/ 19. DVT Px - SCDs. Coumadin resumed with Lovenox bridging.
[2018-10-25] MEDS: WARFARIN NA 5 MG TABLET (UD) PO SCH (17:21)
[2018-10-25] MEDS: ENOXAPARIN NA (PORCINE) 30 MG/0.3 ML DISP.SYRIN SQ SCH (17:23)
[2018-10-25] MEDS ORDERED: SODIUM CHLORIDE 0.9% 500 ML INFUS.BAG IV ONE (17:52)
[2018-10-25] MEDS ORDERED: SODIUM CHLORIDE 1,000 ML IV ONE (18:00)
--- NOTE | 2018-10-25 18:07 | PN ---
Progress Note, Physician History of Present Illness: Events noted. Pt states she has some RLQ abd pain but refusing examination. Antibiotics d/c'd. Low grade fever noted today. No other specific complaints. - Current Medication List Current Medications: Active Medications Acetaminophen (Tylenol -) 650 mg PO Q6H [facility] Last Admin: 10/25/18 17:21 Dose: 650 mg Amlodipine Besylate (Norvasc -) 2.5 mg PO DAILY [facility] Last Admin: 10/25/18 10:19 Dose: Not Given Enoxaparin Sodium (Lovenox -) 30 mg SQ BID [facility] Last Admin: 10/25/18 17:23 Dose: 30 mg Folic Acid (Folic Acid -) 1 mg PO DAILY [facility] Last Admin: 10/25/18 10:18 Dose: 1 mg Lactated Ringer's (Lactated Ringers Solution) 1,000 ml in 1,000 mls @ 125 mls/ hr IV ASDIR [facility] Sodium Chloride (Normal Saline -) 1,000 mls @ 1,000 mls/hr IV ONCE ONE Stop: 10/25/18 18:59 Ibuprofen (Motrin -) 400 mg PO Q6H [facility] Last Admin: 10/25/18 16:00 Dose: 400 mg Metoprolol Tartrate (Lopressor -) 12.5 mg PO BID [facility] Last Admin: 10/25/18 10:19 Dose: Not Given Thiamine HCl (Vitamin B1 -) 100 mg PO DAILY [facility] Last Admin: 10/25/18 10:20 Dose: 100 mg Tramadol HCl (Ultram -) 25 mg PO Q8H PRN PRN Reason: Pain Level 7 - 10 BREAKTHROUGH Warfarin Sodium (Coumadin -) 5 mg PO DAILY@1800 [facility] Last Admin: 10/25/18 17:21 Dose: 5 mg - Objective Vital Signs: Vital Signs Temperature 99.7 F H 10/25/18 17:19 Pulse Rate 99 H 10/25/18 17:19 Respiratory Rate 19 10/25/18 17:19 Blood Pressure 95/56 L 10/25/18 17:19 O2 Sat by Pulse Oximetry (%) 98 10/25/18 09:00 Constitutional: Yes: No Distress, Calm Respiratory: Yes: Regular Gastrointestinal: Yes: Other (refusing abdominal examination) Extremities: Yes: WNL Integumentary: Yes: WNL Neurological: Yes: Alert Labs: CBC, BMP 10/25/18 07:45 10/25/18 07:45 INR, PTT INR 1.04 (0.83-1.09) 10/24/18 07:00 Fibrinogen 385.0 mg/dL (238-498) 10/21/18 00:19 Microbiology 10/19/18 00:05 Urine - Urine Clean Catch Urine Culture - Final Contaminated: Please Repeat - ....Imaging Cat Scan: Report Reviewed Problem List - Problems (1) Chronic appendicitis Code(s): K36 - OTHER APPENDICITIS (2) RLQ abdominal pain Code(s): R10.31 - RIGHT LOWER QUADRANT PAIN (3) Splenic infarct Code(s): D73.5 - INFARCTION OF SPLEEN (4) Alcohol dependence Code(s): F10.20 - ALCOHOL DEPENDENCE, UNCOMPLICATED Qualifiers: Substance use status: uncomplicated Qualified Code(s): F10.20 - Alcohol dependence, uncomplicated Assessment/Plan ? Chronic Appendicitis s/p appendectomy Low grade fever -- continue monitor off antibiotics for now -- check temperatures, if fevers persists will order blood cultures -- Surgery following Pt currently stable
[2018-10-25] MEDS: LACTATED RINGERS SOLUTION 1,000 ML/1,000 ML INFUS.BAG IV SCH (20:35)
[2018-10-26] MEDS: IBUPROFEN 400 MG TABLET (FP) PO SCH ×2 (02:58→08:46)
[2018-10-26] MEDS: LACTATED RINGERS SOLUTION 1,000 ML/1,000 ML INFUS.BAG IV SCH ×2 (05:15→19:18)
[2018-10-26] MEDS: ACETAMINOPHEN 325 MG TABLET (FP) PO SCH ×4 (06:03→18:04)
[2018-10-26 08:52] LABS: HEMATOCRIT 31.1 % (32.4-45.2); HEMOGLOBIN 10.4 GM/dL (10.7-15.3); MCH 33.5 pg (25.7-33.7); MCHC 33.4 g/dl (32.0-36.0); MEAN CELL VOLUME 100.2 fl (80-96); MEAN PLT VOLUME 8.7 fl (7.5-11.1); PLATELET COUNT 179 K/MM3 (134-434); RDW 16.6 % (11.6-15.6); WHITE BLOOD COUNT 4.3 K/mm3 (4.0-10.0)
[2018-10-26] MEDS: FOLIC ACID 1 MG TABLET (FP) PO SCH (09:01)
[2018-10-26] MEDS: THIAMINE HCL 100 MG TABLET (FP) PO SCH (09:02)
[2018-10-26] MEDS: ENOXAPARIN NA (PORCINE) 30 MG/0.3 ML DISP.SYRIN SQ SCH ×2 (09:02→22:17)
[2018-10-26 09:17] LABS: ANION GAP 7 MMOL/L (8-16); BLOOD UREA NITROGEN 9 mg/dL (7-18); CALCIUM 8.1 mg/dL (8.5-10.1); CHLORIDE 109 mmol/L (98-107); CO2 24 mmol/L (21-32); CREATININE 0.7 mg/dL (0.55-1.3); GLUCOSE,RANDOM 79 mg/dL (74-106); POTASSIUM 3.5 mmol/L (3.5-5.1); SODIUM 140 mmol/L (136-145)
[2018-10-26 09:44] LABS: INR 1.16 (0.83-1.09); PROTHROMBIN TIME (PATIENT) 13.7 SEC (9.7-13.0)
[2018-10-26] MEDS: traMADol HCL 50 MG TABLET PO PRN ×2 (09:45→22:17)
[2018-10-26 09:47] LABS: ACTIVATED PTT 30.3 SECONDS (25.2-36.5)
--- NOTE | 2018-10-26 13:59 | PN ---
Progress Note, Physician History of Present Illness: Patient with RLQ pain recurrent/persistent, and splenic infarction discovered 1m ago, who was on outpatient coumadin with intermittent compliance and polysubstance abuse, who had questionable appendicitis last month with the start of her symptoms as well. She also had a UTI around then, and had been treated with antibiotics, which she also only finished part of the course of. CT was repeated with po and iv contrast this admission after initial scan showed questionable appendiceal findings, and all recent scans discussed with Dr. Warner of radiology - appendix appeared inflamed in August, and on most recent scan has some air in the lumen with a prominent wall but no surrounding inflammatory changes. This is suggestive of a possible partially treated appendicitis, and though the appendix does not clearly appear inflamed now, it is also not clearly normal. The splenic infarct is smaller and now appears chronic, not acute/subacute. Her case has been discussed at length with hematology. Was given vitamin K Saturday night. INR is now normal. PTT had remained elevated for unclear reasons - mixing study sent with no lupus anticoagulant currently detected. She had lap appy , and PTT has been normal since then. Coumadin restarted last night. Lovenox also reordered for BID. Pt c/o feeling persistent pain, weak, not wanting to eat or drink much, not wanting to get up much; does walk to bathroom, voiding well. States she sat in chair for a while, but staying up for long leads to pain in her pelvis and back. She has been passing gas and moving bowels multiple times, more liquid than formed, hurts when she goes "like someone is kicking my uterus;" abdomen less distended but still with pain. Has been on standing tylenol and ibuprofen for pain, with tramadol prn for breakthrough. She is seen and examined in bed. Sleepy/lethargic but awake. She did not want lunch as brought (fish with sauce), but does not want much else either. "I can' t even drink the Ensure." She agrees to have some fresh fruit, banana and apple juice (does not want citrus/OJ). Encouraged strongly to sit up, sit in chair, eat/drink, ambulate as able. She is on IVF. BP is normal 100s-111 systolic without meds. States she is using IS. - Current Medication List Current Medications: Active Medications Acetaminophen (Tylenol -) 650 mg PO Q6H [facility] Last Admin: 10/26/18 12:04 Dose: 650 mg Amlodipine Besylate (Norvasc -) 2.5 mg PO DAILY [facility] Last Admin: 10/25/18 10:19 Dose: Not Given Enoxaparin Sodium (Lovenox -) 30 mg SQ BID [facility] Last Admin: 10/26/18 09:02 Dose: 30 mg Folic Acid (Folic Acid -) 1 mg PO DAILY [facility] Last Admin: 10/26/18 09:01 Dose: 1 mg Lactated Ringer's (Lactated Ringers Solution) 1,000 ml in 1,000 mls @ 125 mls/ hr IV ASDIR [facility] Last Admin: 10/26/18 05:15 Dose: 125 mls/hr Ibuprofen (Motrin -) 400 mg PO Q6H PRN PRN Reason: PAIN LEVEL 6-10 Metoprolol Tartrate (Lopressor -) 12.5 mg PO BID [facility] Last Admin: 10/25/18 10:19 Dose: Not Given Thiamine HCl (Vitamin B1 -) 100 mg PO DAILY [facility] Last Admin: 10/26/18 09:02 Dose: 100 mg Tramadol HCl (Ultram -) 25 mg PO Q8H PRN PRN Reason: Pain Level 7 - 10 BREAKTHROUGH Last Admin: 10/26/18 09:45 Dose: 25 mg Warfarin Sodium (Coumadin -) 5 mg PO DAILY@1800 [facility] Last Admin: 10/25/18 17:21 Dose: 5 mg - Objective Vital Signs: Vital Signs Temperature 99.2 F 10/26/18 09:02 Pulse Rate 84 10/26/18 09:02 Respiratory Rate 19 10/26/18 09:02 Blood Pressure 101/60 10/26/18 09:02 O2 Sat by Pulse Oximetry (%) 98 10/26/18 09:00 Vital Signs Period Temp Pulse Resp BP Sys/Enriquez Pulse Ox Last 24 Hr 98.3 F-99.9 F 75-99 18-20 95-111/54-80 98 Constitutional: Yes: No Distress, Calm, Thin Eyes: Yes: Conjunctiva Clear, EOM Intact HENT: Yes: Atraumatic, Normocephalic Cardiovascular: Yes: Regular Rate and Rhythm Respiratory: Yes: Regular, CTA Bilaterally. No: Rales, Rhonchi, Wheezes Gastrointestinal: Yes: Soft, Distention (mild/minimal), Hypoactive Bowel Sounds , Tenderness (mild RLQ/RUQ, also umbilical/incisional, less elsewhere, no rebound or guarding) Extremities: No: Cool, Cyanosis Integumentary: Yes: Incision (x3 w/steris). No: Jaundice, Rash Wound/Incision: Yes: Clean/Dry, Well Approximated, Steri Strips (x3), Open to air. No: Reddened Neurological: Yes: Alert, Oriented Labs: CBC, BMP 10/26/18 08:10 10/26/18 08:10 INR, PTT INR 1.16 (0.83-1.09) H 10/26/18 08:10 Problem List - Problems (1) Chronic appendicitis Assessment/Plan: probable partially treated/subacute/chronic appendicitis - await pathology POD3 s/p laparoscopic appendectomy off antibiotics incisions c/d/i with steristrips tolerating diet with poor po intake on IVF for hydration still with pain and improving tenderness passing gas, moving bowels - liquid stool per pt with pain during defecation standing tylenol for pain, ibuprofen changed now to PRN given reanticoagulation , also with tramadol prn for breakthrough strongly encouraged pt to get up, sit in chair or on edge of bed, OOB/ambulation , IS use, po intake as able (encouraged to ask for alternative at mealtime if desired) pt agreed to fruit, banana, apple juice now - will have kitchen send up Code(s): K36 - OTHER APPENDICITIS (2) Splenic infarct Assessment/Plan: now chronic/subacute anticoagulation resumed per hematology, bridging with lovenox will take a while for INR to reach therapeutic level follow coags daily Code(s): D73.5 - INFARCTION OF SPLEEN (3) RLQ abdominal pain Assessment/Plan: improving but still present Code(s): R10.31 - RIGHT LOWER QUADRANT PAIN (4) Hypertension Assessment/Plan: home meds held for relative hypotension/normal BPs without defer mgmt to primary team Code(s): I10 - ESSENTIAL (PRIMARY) HYPERTENSION Qualifiers: Hypertension type: essential hypertension Qualified Code(s): I10 - Essential (primary) hypertension (5) Tetrahydrocannabinol (THC) use disorder, moderate, dependence Code(s): F12.20 - CANNABIS DEPENDENCE, UNCOMPLICATED (6) Alcohol dependence Code(s): F10.20 - ALCOHOL DEPENDENCE, UNCOMPLICATED Qualifiers: Substance use status: uncomplicated Qualified Code(s): F10.20 - Alcohol dependence, uncomplicated
--- NOTE | 2018-10-26 15:05 | PN ---
Progress Note (short form) - Note Progress Note: SUBJECTIVE: Complains of ongoing RLQ abdominal pain - poor appetite, nausea yesterday, no vomiting. No fever/chills. Passed BM. No hematochezia/melena. OBJECTIVE: Low grade temp, T max 99.9, Hemodynamically Stable. Last Vital Signs Temp Pulse Resp BP Pulse Ox 99 F 92 H 19 94/58 L 98 10/26/18 14:35 10/26/18 14:35 10/26/18 14:35 10/26/18 14:35 10/26/18 09:00 General - low mood, unmotivated, short-tempered. Heart - S1, S2, RRR Lungs - clear to auscultation Abdomen - Abdomen generally tender, worse in RLQ Extremities - no edema, no calf tenderness. Laboratory Results - last 24 hr 10/26/18 10/26/18 10/26/18 08:10 08:10 08:10 WBC 4.3 RBC 3.10 L Hgb 10.4 L Hct 31.1 L MCV 100.2 H MCH 33.5 MCHC 33.4 RDW 16.6 H Plt Count 179 MPV 8.7 PT with INR 13.70 H INR 1.16 H PTT (Actin FS) 30.3 Sodium 140 Potassium 3.5 Chloride 109 H Carbon Dioxide 24 Anion Gap 7 L BUN 9 Creatinine 0.7 Creat Clearance w eGFR 89.31 Random Glucose 79 Calcium 8.1 L Current Medications Generic Name Dose Route Start Last Admin Trade Name Freq PRN Reason Stop Dose Admin Acetaminophen 650 mg 10/24/18 00:00 10/26/18 12:04 Tylenol - PO 650 mg Q6H [facility] Administration Amlodipine Besylate 2.5 mg 10/24/18 10:00 10/25/18 10:19 Norvasc - PO Not Given DAILY [facility] Enoxaparin Sodium 30 mg 10/25/18 17:15 10/26/18 09:02 Lovenox - SQ 30 mg BID [facility] Administration Folic Acid 1 mg 10/24/18 10:00 10/26/18 09:01 Folic Acid - PO 1 mg DAILY [facility] Administration Lactated Ringer's 1,000 ml in 1,000 mls @ 125 mls/hr 10/25/18 17:45 10/26/18 05:15 Lactated Ringers Solution IV 125 mls/hr ASDIR [facility] Administration Ibuprofen 400 mg 10/26/18 13:33 Motrin - PO Q6H PRN PAIN LEVEL 6-10 Metoprolol Tartrate 12.5 mg 10/23/18 22:00 10/25/18 10:19 Lopressor - PO Not Given BID [facility] Thiamine HCl 100 mg 10/24/18 10:00 10/26/18 09:02 Vitamin B1 - PO 100 mg DAILY [facility] Administration Tramadol HCl 25 mg 10/25/18 17:44 10/26/18 09:45 Ultram - PO 25 mg Q8H PRN Administration Pain Level 7 - 10 BREAKTHROUGH Warfarin Sodium 5 mg 10/25/18 18:00 10/25/18 17:21 Coumadin - PO 5 mg DAILY@1800 [facility] Administration ASSESSMENT AND PLAN: 48 year old female with history of HTN, Polysubstance Abuse, HX CVA, recent splenic infarct (on Coumadin), presented with intractable RLQ pain. 1. Acute Appendicitis - POD 3 s/p Laparoscopic Appendectomy CT A/P and Transvaginal US noted. Currently afebrile, mild hypotension (likely secondary to poor oral intake - will continue IV hydration). Abx discontinued Advance diet as per Surgery No medical reason for continued admission. 2. Elevated aPTT, etiology unclear, currently corrected/resolved Improved s/p FFP, Vitamin K Mixing Studies - no Lupus anticoagulant detected. Hematology following. No active bleeding - patient actually has a history of thrombosis rather than thrombophilia. 3. Acute Splenic Infarct, recently started on Coumadin, held for surgery. Received FFP/Vitamin K. Coumadin resumed post-op with Lovenox bridging. This can be continued as outpatient with INR check tomorrow AM. 4. 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 No evidence of alcohol withdrawal. Repeat LFTs normal. 5. HTN - Metoprolol and Amlodipine held due to borderline BP. 6. Polysubstance Abuse - (Cocaine/THC/Alcohol). Counselled. Declines Rehab/ Detox currently. Continue Thiamine, Folic Acid, MVI. 7. Hypomagnesemia - repleted. 8. Macrocytosis - likely sec to Alcohol excess. B12/Folate levels normal - 792/ 19. DVT Px - Coumadin resumed with Lovenox bridging. Visit type - Emergency Visit Emergency Visit: Yes ED Registration Date: 10/19/18 Care time: The patient presented to the Emergency Department on the above date and was hospitalized for further evaluation of their emergent condition. - New Patient This patient is new to me today: No - Critical Care Critical Care patient: No - Discharge Referral Referred to [facility] Med [facility] No
--- NOTE | 2018-10-26 15:12 | PN ---
Progress Note, Physician History of Present Illness: Pt seen and examined. Temp of 99F today. C/O abdominal cramping and loose BMs since yesterday, reports 4 today so far. Denies SOB/cough, dysuria, n/v. - Current Medication List Current Medications: Active Medications Acetaminophen (Tylenol -) 650 mg PO Q6H [facility] Last Admin: 10/26/18 12:04 Dose: 650 mg Amlodipine Besylate (Norvasc -) 2.5 mg PO DAILY [facility] Last Admin: 10/25/18 10:19 Dose: Not Given Enoxaparin Sodium (Lovenox -) 30 mg SQ BID [facility] Last Admin: 10/26/18 09:02 Dose: 30 mg Folic Acid (Folic Acid -) 1 mg PO DAILY [facility] Last Admin: 10/26/18 09:01 Dose: 1 mg Lactated Ringer's (Lactated Ringers Solution) 1,000 ml in 1,000 mls @ 125 mls/ hr IV ASDIR [facility] Last Admin: 10/26/18 05:15 Dose: 125 mls/hr Ibuprofen (Motrin -) 400 mg PO Q6H PRN PRN Reason: PAIN LEVEL 6-10 Metoprolol Tartrate (Lopressor -) 12.5 mg PO BID [facility] Last Admin: 10/25/18 10:19 Dose: Not Given Thiamine HCl (Vitamin B1 -) 100 mg PO DAILY [facility] Last Admin: 10/26/18 09:02 Dose: 100 mg Tramadol HCl (Ultram -) 25 mg PO Q8H PRN PRN Reason: Pain Level 7 - 10 [facility]ROUGH Last Admin: 10/26/18 09:45 Dose: 25 mg Warfarin Sodium (Coumadin -) 5 mg PO DAILY@1800 [facility] Last Admin: 10/25/18 17:21 Dose: 5 mg - Objective Vital Signs: Vital Signs Temperature 99 F 10/26/18 14:35 Pulse Rate 92 H 10/26/18 14:35 Respiratory Rate 19 10/26/18 14:35 Blood Pressure 94/58 L 10/26/18 14:35 O2 Sat by Pulse Oximetry (%) 98 10/26/18 09:00 Constitutional: Yes: No Distress, Calm Cardiovascular: Yes: Regular Rate and Rhythm Respiratory: Yes: Regular Gastrointestinal: Yes: Normal Bowel Sounds, Soft, Tenderness (lower abdomen with palpation) Extremities: Yes: WNL Integumentary: Yes: WNL Neurological: Yes: Alert Labs: CBC, BMP 10/26/18 08:10 10/26/18 08:10 INR, PTT INR 1.16 (0.83-1.09) H 10/26/18 08:10 Fibrinogen 385.0 mg/dL (238-498) 10/21/18 00:19 Microbiology 10/19/18 00:05 Urine - Urine Clean Catch Urine Culture - Final Contaminated: Please Repeat Problem List - Problems (1) Chronic appendicitis Code(s): K36 - OTHER APPENDICITIS (2) RLQ abdominal pain Code(s): R10.31 - RIGHT LOWER QUADRANT PAIN (3) Splenic infarct Code(s): D73.5 - INFARCTION OF SPLEEN (4) Alcohol dependence Code(s): F10.20 - ALCOHOL DEPENDENCE, UNCOMPLICATED Qualifiers: Qualified Code(s): F10.20 - Alcohol dependence, uncomplicated Assessment/Plan Appendicitis s/p appendectomy - ? Chronic Low grade fever Diarrhea/ Abd cramping -- send stool for Cdiff - repeat cbc -- continue monitor off antibiotics for now and monitor temps -- poor appetite Surgery following
[2018-10-26] MEDS: IBUPROFEN 400 MG TABLET (FP) PO PRN (16:10)
[2018-10-26] MEDS: WARFARIN NA 5 MG TABLET (UD) PO SCH (18:04)
[2018-10-27] MEDS: ACETAMINOPHEN 325 MG TABLET (FP) PO SCH ×4 (00:42→17:23)
[2018-10-27] MEDS: LACTATED RINGERS SOLUTION 1,000 ML/1,000 ML INFUS.BAG IV SCH (06:01)
[2018-10-27 09:11] LABS: BASO % 1.9 % (0-2.0); HEMATOCRIT 33.2 % (32.4-45.2); HEMOGLOBIN 10.8 GM/dL (10.7-15.3); LYMPH % 27.6 % (8-40); MCH 32.1 pg (25.7-33.7); MCHC 32.7 g/dl (32.0-36.0); MEAN CELL VOLUME 98.2 fl (80-96); MEAN PLT VOLUME 8.6 fl (7.5-11.1); MONO % 10.3 % (3.8-10.2); NEUT % 56.2 % (42.8-82.8); PLATELET COUNT 238 K/MM3 (134-434); RBC 3.38 M/mm3 (3.60-5.2); RDW 16.1 % (11.6-15.6); WHITE BLOOD COUNT 3.9 K/mm3 (4.0-10.0)
[2018-10-27 09:37] LABS: ANION GAP 5 MMOL/L (8-16); BLOOD UREA NITROGEN 5 mg/dL (7-18); CALCIUM 8.4 mg/dL (8.5-10.1); CHLORIDE 109 mmol/L (98-107); CO2 27 mmol/L (21-32); CREATININE 0.6 mg/dL (0.55-1.3); GLUCOSE,RANDOM 78 mg/dL (74-106); MAGNESIUM 1.7 mg/dL (1.8-2.4); PHOSPHOROUS 3.2 mg/dL (2.5-4.9); POTASSIUM 3.4 mmol/L (3.5-5.1); SODIUM 141 mmol/L (136-145)
[2018-10-27] MEDS: ENOXAPARIN NA (PORCINE) 30 MG/0.3 ML DISP.SYRIN SQ SCH (09:51)
[2018-10-27] MEDS: FOLIC ACID 1 MG TABLET (FP) PO SCH (09:51)
[2018-10-27] MEDS: THIAMINE HCL 100 MG TABLET (FP) PO SCH (09:51)
[2018-10-27] MEDS: traMADol HCL 50 MG TABLET PO PRN ×2 (09:55→20:15)
[2018-10-27] MEDS ORDERED: MAGNESIUM SULF 50% (8.12 MEQ/2 ML-1 GM VIAL) IVPB ONE (11:00)
[2018-10-27] MEDS: METOPROLOL TARTRATE 25 MG TABLET (FP) PO SCH ×2 (11:19→21:37)
[2018-10-27] MEDS: amLODIPine BESYLATE 2.5 MG TABLET (FP) PO SCH (11:20)
--- NOTE | 2018-10-27 11:52 | PN ---
Physical Exam: SUBJECTIVE: Patient seen and examined at bedside. Verbally abusive to staff, refuses interview and examination. OBJECTIVE: Vital Signs Period Temp Pulse Resp BP Sys/Enriquez Pulse Ox Last 24 Hr 98.2 F-99 F 64-92 19-20 94-137/58-93 98 Pt refuses examination. Laboratory Results - last 24 hr 10/27/18 10/27/18 08:55 08:55 WBC 3.9 L RBC 3.38 L Hgb 10.8 Hct 33.2 MCV 98.2 H MCH 32.1 MCHC 32.7 RDW 16.1 H Plt Count 238 D MPV 8.6 Absolute Neuts (auto) 2.2 Neutrophils % 56.2 D Lymphocytes % 27.6 D Monocytes % 10.3 H D Eosinophils % 4.0 D Basophils % 1.9 D Nucleated RBC % 0 Sodium 141 Potassium 3.4 L Chloride 109 H Carbon Dioxide 27 Anion Gap 5 L BUN 5 L Creatinine 0.6 Creat Clearance w eGFR 106.70 Random Glucose 78 Calcium 8.4 L Phosphorus 3.2 Magnesium 1.7 L Active Medications Generic Name Dose Route Start Last Admin Trade Name Freq PRN Reason Stop Dose Admin Acetaminophen 650 mg 10/24/18 00:00 10/27/18 11:26 Tylenol - PO 650 mg Q6H [facility] Administration Amlodipine Besylate 2.5 mg 10/24/18 10:00 10/27/18 11:20 Norvasc - PO Not Given DAILY [facility] Enoxaparin Sodium 30 mg 10/25/18 17:15 10/27/18 09:51 Lovenox - SQ 30 mg BID [facility] Administration Folic Acid 1 mg 10/24/18 10:00 10/27/18 09:51 Folic Acid - PO 1 mg DAILY [facility] Administration Lactated Ringer's 1,000 ml in 1,000 mls @ 125 mls/hr 10/25/18 17:45 10/27/18 06:01 Lactated Ringers Solution IV 125 mls/hr ASDIR [facility] Administration Ibuprofen 400 mg 10/26/18 13:33 10/26/18 16:10 Motrin - PO 400 mg Q6H PRN Administration PAIN LEVEL 6-10 Metoprolol Tartrate 12.5 mg 10/23/18 22:00 10/27/18 11:19 Lopressor - PO Not Given BID COUNT INCLUDES [facility] Thiamine HCl 100 mg 10/24/18 10:00 10/27/18 09:51 Vitamin B1 - PO 100 mg DAILY [facility] Administration Tramadol HCl 25 mg 10/25/18 17:44 10/27/18 09:55 Ultram - PO 25 mg Q8H PRN Administration Pain Level 7 - 10 BREAKTHROUGH Warfarin Sodium 5 mg 10/25/18 18:00 10/26/18 18:04 Coumadin - PO 5 mg DAILY@1800 [facility] Administration ASSESSMENT/PLAN: 48 y/o F w/ PMHx HTN, polysubstance abuse (cocaine, marijuana), 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 #medical care -Pt refuses interview and examination by medical team, abuses staff members -no acute medical issues being treated, will defer to recommendations of other services #subacute/chronic appendicitis -POD 4 s/p laparoscopic appendectomy -appendix was found enlarged, inflamed, with adhesions -pain mgmt as per Sx -cleared by ID to hold ABx -IS -resumed diet -tolerating PO, having BMs per nursing staff #h/o splenic infarct -bridging from Lovenox to coumadin -hematology following #HTN -cont norvasc, lopressor #FEN -D51/2NS+20meqK @ 125 cc/hr -monitor and replete electrolytes -regular diet #PPx -DVT: Lovenox --> Coumadin bridge -GI: not indicated #code -full #dispo -monitor on med/surg -can be discharged from perspective of medicine service Visit type - Emergency Visit Emergency Visit: No - New Patient This patient is new to me today: No - Critical Care Critical Care patient: No
[2018-10-27 12:19] LABS: INR 1.05 (0.83-1.09); PROTHROMBIN TIME (PATIENT) 12.4 SEC (9.7-13.0)
[2018-10-27] MEDS ORDERED: POTASSIUM CHLORIDE TABS 20 MEQ TABLET.ER (FP) PO ONE (13:00)
[2018-10-27] MEDS ORDERED: MAGNESIUM OXIDE 400 MG TABLET (FP) PO ONE (13:00)
--- NOTE | 2018-10-27 13:52 | PN ---
Progress Note, Physician History of Present Illness: stable doing well still c/o of abd pain site operated looks good - Current Medication List Current Medications: Active Medications Acetaminophen (Tylenol -) 650 mg PO Q6H [facility] Last Admin: 10/27/18 11:26 Dose: 650 mg Amlodipine Besylate (Norvasc -) 2.5 mg PO DAILY [facility] Last Admin: 10/27/18 11:20 Dose: Not Given Enoxaparin Sodium (Lovenox -) 30 mg SQ BID [facility] Last Admin: 10/27/18 09:51 Dose: 30 mg Folic Acid (Folic Acid -) 1 mg PO DAILY [facility] Last Admin: 10/27/18 09:51 Dose: 1 mg Lactated Ringer's (Lactated Ringers Solution) 1,000 ml in 1,000 mls @ 125 mls/ hr IV ASDIR [facility] Last Admin: 10/27/18 06:01 Dose: 125 mls/hr Ibuprofen (Motrin -) 400 mg PO Q6H PRN PRN Reason: PAIN LEVEL 6-10 Last Admin: 10/26/18 16:10 Dose: 400 mg Metoprolol Tartrate (Lopressor -) 12.5 mg PO BID [facility] Last Admin: 10/27/18 11:19 Dose: Not Given Thiamine HCl (Vitamin B1 -) 100 mg PO DAILY [facility] Last Admin: 10/27/18 09:51 Dose: 100 mg Tramadol HCl (Ultram -) 25 mg PO Q8H PRN PRN Reason: Pain Level 7 - 10 BREAK[facility]ROUGH Last Admin: 10/27/18 09:55 Dose: 25 mg Warfarin Sodium (Coumadin -) 5 mg PO DAILY@1800 [facility] Last Admin: 10/26/18 18:04 Dose: 5 mg - Objective Vital Signs: Vital Signs Temperature 98.2 F 10/27/18 06:10 Pulse Rate 64 10/27/18 06:10 Respiratory Rate 20 10/27/18 06:10 Blood Pressure 107/72 10/27/18 06:10 O2 Sat by Pulse Oximetry (%) 98 10/26/18 21:00 Constitutional: Yes: No Distress, Calm Cardiovascular: Yes: Regular Rate and Rhythm Respiratory: Yes: Regular, CTA Bilaterally Gastrointestinal: Yes: Ascites, Distention Musculoskeletal: Yes: WNL Extremities: Yes: WNL Wound/Incision: Yes: Dressing Dry and Intact Neurological: Yes: Alert, Oriented Psychiatric: Yes: Alert, Oriented Labs: CBC, BMP 10/27/18 08:55 10/27/18 08:55 INR, PTT INR 1.05 (0.83-1.09) 10/27/18 11:40 Fibrinogen 385.0 mg/dL (238-498) 10/21/18 00:19 Assessment/Plan Problem List - Problems (1) Chronic appendicitis Code(s): K36 - OTHER APPENDICITIS (2) Splenic infarct Code(s): D73.5 - INFARCTION OF SPLEEN (3) RLQ abdominal pain Code(s): R10.31 - RIGHT LOWER QUADRANT PAIN (4) Chills without fever Code(s): R68.83 - CHILLS (WITHOUT FEVER) (5) Diarrhea Code(s): R19.7 - DIARRHEA, UNSPECIFIED Qualifiers: Diarrhea type: unspecified type Qualified Code(s): R19.7 - Diarrhea, unspecified (6) Hypertension Code(s): I10 - ESSENTIAL (PRIMARY) HYPERTENSION Qualifiers: Hypertension type: essential hypertension Qualified Code(s): I10 - Essential (primary) hypertension (7) Tetrahydrocannabinol (THC) use disorder, moderate, dependence Code(s): F12.20 - CANNABIS DEPENDENCE, UNCOMPLICATED (8) Alcohol dependence Code(s): F10.20 - ALCOHOL DEPENDENCE, UNCOMPLICATED Qualifiers: Substance use status: uncomplicated Qualified Code(s): F10.20 - Alcohol dependence, uncomplicated plan stop abx continue current mgmt rest as per surgery and the team
--- NOTE | 2018-10-27 14:20 | PN ---
Progress Note, Physician History of Present Illness: Patient with RLQ pain recurrent/persistent, and splenic infarction discovered 1m ago, who was on outpatient coumadin with intermittent compliance and polysubstance abuse, who had questionable appendicitis last month with the start of her symptoms as well. She also had a UTI around then, and had been treated with antibiotics, which she also only finished part of the course of. CT was repeated with po and iv contrast this admission after initial scan showed questionable appendiceal findings, and all recent scans discussed with Dr. Warner of radiology - appendix appeared inflamed in August, and on most recent scan has some air in the lumen with a prominent wall but no surrounding inflammatory changes. This is suggestive of a possible partially treated appendicitis, and though the appendix does not clearly appear inflamed now, it is also not clearly normal. The splenic infarct is smaller and now appears chronic, not acute/subacute. Her case has been discussed at length with hematology. Was given vitamin K Saturday night. INR is now normal. PTT had remained elevated for unclear reasons - mixing study sent with no lupus anticoagulant currently detected. She had lap appy , and PTT was normal postop. Coumadin has been restarted. Lovenox also on 30mg BID. INR normal today. She is seen and examined in bed. Nurses and medical team report she refused examination this morning and was verbally abusive. She is currently cooperative and appropriately responsive. She had oatmeal for breakfast, some soup for lunch and a few bites of chicken; is trying to eat more. She is drinking water and also apple juice. Her IV was replaced last night, and seems to have been leaking overnight and is awaiting new replacement now. Pt c/o pain in middle/ lower abdomen at times, also has had shooting pain up spine from rectal area a couple of times, had watery stool output but mixed with urine last night, no BM yet today. She reports voiding well and walks to bathroom. Has not been up much yet out of bed otherwise, but is willing to. Abdomen still somewhat distended, and she is passing gas. Using standing tylenol and prn ibuprofen for pain, with tramadol prn for breakthrough. - Current Medication List Current Medications: Active Medications Acetaminophen (Tylenol -) 650 mg PO Q6H [facility] Last Admin: 10/27/18 11:26 Dose: 650 mg Amlodipine Besylate (Norvasc -) 2.5 mg PO DAILY [facility] Last Admin: 10/27/18 11:20 Dose: Not Given Enoxaparin Sodium (Lovenox -) 30 mg SQ BID [facility] Last Admin: 10/27/18 09:51 Dose: 30 mg Folic Acid (Folic Acid -) 1 mg PO DAILY [facility] Last Admin: 10/27/18 09:51 Dose: 1 mg Lactated Ringer's (Lactated Ringers Solution) 1,000 ml in 1,000 mls @ 125 mls/ hr IV ASDIR [facility] Last Admin: 10/27/18 06:01 Dose: 125 mls/hr Ibuprofen (Motrin -) 400 mg PO Q6H PRN PRN Reason: PAIN LEVEL 6-10 Last Admin: 10/26/18 16:10 Dose: 400 mg Metoprolol Tartrate (Lopressor -) 12.5 mg PO BID [facility] Last Admin: 10/27/18 11:19 Dose: Not Given Thiamine HCl (Vitamin B1 -) 100 mg PO DAILY [facility] Last Admin: 10/27/18 09:51 Dose: 100 mg Tramadol HCl (Ultram -) 25 mg PO Q8H PRN PRN Reason: Pain Level 7 - 10 BREAKTHROUGH Last Admin: 10/27/18 09:55 Dose: 25 mg Warfarin Sodium (Coumadin -) 5 mg PO DAILY@1800 [facility] Last Admin: 10/26/18 18:04 Dose: 5 mg - Objective Vital Signs: Vital Signs Temperature 98.2 F 10/27/18 06:10 Pulse Rate 64 10/27/18 06:10 Respiratory Rate 20 10/27/18 06:10 Blood Pressure 107/72 10/27/18 06:10 O2 Sat by Pulse Oximetry (%) 98 10/26/18 21:00 Vital Signs Period Temp Pulse Resp BP Sys/Enriquez Pulse Ox Last 24 Hr 98.2 F-99 F 64-97 18-20 94-137/58-93 98-98 Constitutional: Yes: No Distress, Calm, Thin Eyes: Yes: Conjunctiva Clear, EOM Intact HENT: Yes: Atraumatic, Normocephalic Cardiovascular: Yes: Regular Rate and Rhythm Respiratory: Yes: Regular, CTA Bilaterally Gastrointestinal: Yes: Normal Bowel Sounds (hypoactive in areas to normal in others), Soft, Distention (with some tympany), Tenderness (mostly incisional near umbilicus, central abdomen, mild/less in RLQ and elsewhere, no rebound or guarding) Extremities: No: Cool, Cyanosis Integumentary: Yes: Incision (x3 w/steris). No: Jaundice, Rash Wound/Incision: Yes: Clean/Dry, Well Approximated, Steri Strips (x3), Open to air Neurological: Yes: Alert, Oriented Labs: CBC, BMP 10/27/18 08:55 10/27/18 08:55 INR, PTT INR 1.05 (0.83-1.09) 10/27/18 11:40 K low - repleted Problem List - Problems (1) Chronic appendicitis Assessment/Plan: probable partially treated/subacute/chronic appendicitis - await pathology POD4 s/p laparoscopic appendectomy off antibiotics incisions c/d/i with steristrips tolerating diet with low but improving po intake on IVF for hydration - stopped for now because of IV site - need for replacement drinking ok abdominal pain and tenderness seem mostly incisional and possibly gas-related(?) passing gas, moving bowels - had watery/liquid stool last night but nothing yet today standing tylenol for pain, ibuprofen changed to PRN given reanticoagulation, also with tramadol prn for breakthrough strongly encouraged pt to get up, sit in chair or on edge of bed, OOB/ambulation , IS use, po intake as able (encouraged to ask for alternative at mealtime if desired) pt agrees to increase activity and work on po intake will order up yogurt for snack now ok to shower without IV in while awaiting replacement Code(s): K36 - OTHER APPENDICITIS (2) Splenic infarct Assessment/Plan: now chronic/subacute anticoagulation resumed per hematology, bridging with lovenox will take a while for INR to reach therapeutic level follow coags daily Code(s): D73.5 - INFARCTION OF SPLEEN (3) RLQ abdominal pain Assessment/Plan: pain now more in central abdomen, less RLQ Code(s): R10.31 - RIGHT LOWER QUADRANT PAIN (4) Hypertension Assessment/Plan: home meds held for relative hypotension/normal BPs without meds monitor VS closely defer mgmt to primary team Code(s): I10 - ESSENTIAL (PRIMARY) HYPERTENSION Qualifiers: Hypertension type: essential hypertension Qualified Code(s): I10 - Essential (primary) hypertension (5) Tetrahydrocannabinol (THC) use disorder, moderate, dependence Code(s): F12.20 - CANNABIS DEPENDENCE, UNCOMPLICATED (6) Alcohol dependence Code(s): F10.20 - ALCOHOL DEPENDENCE, UNCOMPLICATED Qualifiers: Substance use status: uncomplicated Qualified Code(s): F10.20 - Alcohol dependence, uncomplicated
--- NOTE | 2018-10-27 16:28 | PN ---
Teaching Attending Note Name of Resident: Suhail Lal ATTENDING PHYSICIAN STATEMENT I saw and evaluated the patient. I reviewed the resident's note and discussed the case with the resident. I agree with the resident's findings and plan as documented. SUBJECTIVE: Complains of ongoing RLQ abdominal pain - appetite improving, no vomiting. No fever/chills. Passed loose/watery BM. No hematochezia/melena. Verbally abusive to medical team. OBJECTIVE: Afebrile, Hemodynamically Stable.. Last Vital Signs Temp Pulse Resp BP Pulse Ox 98.2 F 90 18 105/76 98 10/27/18 10:00 10/27/18 14:29 10/27/18 10:00 10/27/18 14:29 10/27/18 09:00 General - low mood, unmotivated, short-tempered, verbally abusive to medical team Heart - S1, S2, RRR Lungs - clear to auscultation Abdomen - Abdomen generally tender, worse in RLQ Extremities - no edema, no calf tenderness. Laboratory Results - last 24 hr 10/27/18 10/27/18 10/27/18 08:55 08:55 11:40 WBC 3.9 L RBC 3.38 L Hgb 10.8 Hct 33.2 MCV 98.2 H MCH 32.1 MCHC 32.7 RDW 16.1 H Plt Count 238 D MPV 8.6 Absolute Neuts (auto) 2.2 Neutrophils % 56.2 D Lymphocytes % 27.6 D Monocytes % 10.3 H D Eosinophils % 4.0 D Basophils % 1.9 D Nucleated RBC % 0 PT with INR 12.40 INR 1.05 Sodium 141 Potassium 3.4 L Chloride 109 H Carbon Dioxide 27 Anion Gap 5 L BUN 5 L Creatinine 0.6 Creat Clearance w eGFR 106.70 Random Glucose 78 Calcium 8.4 L Phosphorus 3.2 Magnesium 1.7 L Current Medications Generic Name Dose Route Start Last Admin Trade Name Freq PRN Reason Stop Dose Admin Acetaminophen 650 mg 10/24/18 00:00 10/27/18 11:26 Tylenol - PO 650 mg Q6H [facility] Administration Amlodipine Besylate 2.5 mg 10/24/18 10:00 10/27/18 11:20 Norvasc - PO Not Given DAILY [facility] Enoxaparin Sodium 90 mg 10/28/18 10:00 Lovenox - SQ DAILY [facility] Folic Acid 1 mg 10/24/18 10:00 10/27/18 09:51 Folic Acid - PO 1 mg DAILY [facility] Administration Ibuprofen 400 mg 10/26/18 13:33 10/26/18 16:10 Motrin - PO 400 mg Q6H PRN Administration PAIN LEVEL 6-10 Metoprolol Tartrate 12.5 mg 10/23/18 22:00 10/27/18 11:19 Lopressor - PO Not Given BID [facility] Thiamine HCl 100 mg 10/24/18 10:00 10/27/18 09:51 Vitamin B1 - PO 100 mg DAILY [facility] Administration Tramadol HCl 25 mg 10/25/18 17:44 10/27/18 09:55 Ultram - PO 25 mg Q8H PRN Administration Pain Level 7 - 10 BREAKTHROUGH Warfarin Sodium 7.5 mg 10/27/18 14:18 Coumadin - PO DAILY@1800 [facility] ASSESSMENT AND PLAN: 48 year old female with history of HTN, Polysubstance Abuse, HX CVA, recent splenic infarct (on Coumadin), presented with intractable RLQ pain. 1. Acute Appendicitis - POD 4 s/p Laparoscopic Appendectomy CT A/P and Transvaginal US noted. Currently afebrile, BP on low side. Abx discontinued Diet advanced as per Surgery Complains of watery stool (one episode today) - Cdiff requested. 2. Elevated aPTT, etiology unclear, currently corrected/resolved Improved s/p FFP, Vitamin K Mixing Studies - no Lupus anticoagulant detected. Hematology following. 3. Acute Splenic Infarct, recently started on Coumadin, held for surgery. Received FFP/Vitamin K. Coumadin resumed post-op with Lovenox bridging. Coumadin titration can be continued as outpatient with regular INR checks and Lovenox bridging. 4. 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 No evidence of alcohol withdrawal. Repeat LFTs normal. 5. HTN - Metoprolol and Amlodipine held due to borderline BP. 6. Polysubstance Abuse - (Cocaine/THC/Alcohol). Counselled. Declines Rehab/ Detox currently. Continue Thiamine, Folic Acid, MVI. 7. Hypomagnesemia - repleted. 8. Macrocytosis - likely sec to Alcohol excess. B12/Folate levels normal - 792/ 19. DVT Px - Coumadin resumed with Lovenox bridging.
[2018-10-27] MEDS: WARFARIN NA 7.5 MG TABLET (FP) PO SCH (17:23)
[2018-10-27] MEDS: IBUPROFEN 400 MG TABLET (FP) PO PRN (21:41)
[2018-10-28] MEDS: ACETAMINOPHEN 325 MG TABLET (FP) PO SCH ×4 (01:17→13:54)
--- NOTE | 2018-10-28 05:26 | PN ---
Progress Note (short form) - Note Progress Note: Discussed with Dr. Day/dr. holland To consider lovenox full dose --- 90 mg daily continue bridging ith couadin to complete 3months a/c for splenic infarct
[2018-10-28] MEDS: METOPROLOL TARTRATE 25 MG TABLET (FP) PO SCH ×2 (10:21→21:54)
[2018-10-28] MEDS: FOLIC ACID 1 MG TABLET (FP) PO SCH (10:21)
[2018-10-28] MEDS: amLODIPine BESYLATE 2.5 MG TABLET (FP) PO SCH (10:21)
[2018-10-28] MEDS: ENOXAPARIN NA (PORCINE) 100 MG/1 ML DISP.SYRIN SQ SCH (10:23)
[2018-10-28] MEDS: traMADol HCL 50 MG TABLET PO PRN ×2 (10:23→20:18)
[2018-10-28] MEDS: THIAMINE HCL 100 MG TABLET (FP) PO SCH (10:25)
[2018-10-28 12:50] LABS: BASO % 0.5 % (0-2.0); HEMATOCRIT 34.2 % (32.4-45.2); HEMOGLOBIN 11.2 GM/dL (10.7-15.3); LYMPH % 32.8 % (8-40); MCH 32.5 pg (25.7-33.7); MCHC 32.9 g/dl (32.0-36.0); MEAN CELL VOLUME 98.9 fl (80-96); MEAN PLT VOLUME 8.3 fl (7.5-11.1); NEUT % 55.7 % (42.8-82.8); PLATELET COUNT 377 K/MM3 (134-434); RBC 3.46 M/mm3 (3.60-5.2); RDW 16.6 % (11.6-15.6); WHITE BLOOD COUNT 4.1 K/mm3 (4.0-10.0)
[2018-10-28 13:04] LABS: INR 1.19 (0.83-1.09); PROTHROMBIN TIME (PATIENT) 14.1 SEC (9.7-13.0)
--- NOTE | 2018-10-28 13:22 | PN ---
Progress Note, Physician History of Present Illness: stable no complaints had dirrhoea positive for cdiff - Current Medication List Current Medications: Active Medications Acetaminophen (Tylenol -) 650 mg PO Q6H [facility] Last Admin: 10/28/18 07:14 Dose: 650 mg Amlodipine Besylate (Norvasc -) 2.5 mg PO DAILY [facility] Last Admin: 10/28/18 10:21 Dose: 2.5 mg Enoxaparin Sodium (Lovenox -) 90 mg SQ DAILY [facility] Last Admin: 10/28/18 10:23 Dose: 90 mg Folic Acid (Folic Acid -) 1 mg PO DAILY [facility] Last Admin: 10/28/18 10:21 Dose: 1 mg Ibuprofen (Motrin -) 400 mg PO Q6H PRN PRN Reason: PAIN LEVEL 6-10 Last Admin: 10/27/18 21:41 Dose: 400 mg Metoprolol Tartrate (Lopressor -) 12.5 mg PO BID [facility] Last Admin: 10/28/18 10:21 Dose: 12.5 mg Thiamine HCl (Vitamin B1 -) 100 mg PO DAILY [facility] Last Admin: 10/28/18 10:25 Dose: 100 mg Tramadol HCl (Ultram -) 25 mg PO Q8H PRN PRN Reason: Pain Level 7 - 10 BREAKTHROUGH Last Admin: 10/28/18 10:23 Dose: 25 mg Warfarin Sodium (Coumadin -) 7.5 mg PO DAILY@1800 [facility] Last Admin: 10/27/18 17:23 Dose: 7.5 mg - Objective Vital Signs: Vital Signs Temperature 98.6 F 10/28/18 10:00 Pulse Rate 88 10/28/18 10:00 Respiratory Rate 10/28/18 10:00 Blood Pressure 113/77 10/28/18 10:00 O2 Sat by Pulse Oximetry (%) 100 10/27/18 21:00 Constitutional: Yes: Calm HENT: Yes: Atraumatic Neck: Yes: Supple, Trachea Midline Cardiovascular: Yes: Regular Rate and Rhythm Respiratory: Yes: Regular Gastrointestinal: Yes: Normal Bowel Sounds, Soft, Ascites Musculoskeletal: Yes: WNL Extremities: Yes: WNL Wound/Incision: Yes: Clean/Dry Neurological: Yes: Alert, Oriented Psychiatric: Yes: Alert, Oriented Labs: CBC, BMP 10/28/18 12:25 INR, PTT INR 1.19 (0.83-1.09) H 10/28/18 12:25 Fibrinogen 385.0 mg/dL (238-498) 10/21/18 00:19 Assessment/Plan Problem List - Problems (1) Chronic appendicitis Code(s): K36 - OTHER APPENDICITIS (2) Splenic infarct Code(s): D73.5 - INFARCTION OF SPLEEN (3) RLQ abdominal pain Code(s): R10.31 - RIGHT LOWER QUADRANT PAIN (4) Chills without fever Code(s): R68.83 - CHILLS (WITHOUT FEVER) (5) Diarrhea Code(s): R19.7 - DIARRHEA, UNSPECIFIED Qualifiers: Diarrhea type: unspecified type Qualified Code(s): R19.7 - Diarrhea, unspecified (6) Hypertension Code(s): I10 - ESSENTIAL (PRIMARY) HYPERTENSION Qualifiers: Hypertension type: essential hypertension Qualified Code(s): I10 - Essential (primary) hypertension (7) Tetrahydrocannabinol (THC) use disorder, moderate, dependence Code(s): F12.20 - CANNABIS DEPENDENCE, UNCOMPLICATED (8) Alcohol dependence Code(s): F10.20 - ALCOHOL DEPENDENCE, UNCOMPLICATED Qualifiers: Substance use status: uncomplicated Qualified Code(s): F10.20 - Alcohol dependence, uncomplicated plan oral vanco will need it for 14 days rest as per the team patient stable
[2018-10-28 13:29] LABS: ANION GAP 6 MMOL/L (8-16); BLOOD UREA NITROGEN 8 mg/dL (7-18); CALCIUM 8.9 mg/dL (8.5-10.1); CHLORIDE 102 mmol/L (98-107); CO2 28 mmol/L (21-32); CREATININE 0.5 mg/dL (0.55-1.3); GLUCOSE,RANDOM 86 mg/dL (74-106); MAGNESIUM 2.1 mg/dL (1.8-2.4); PHOSPHOROUS 2.5 mg/dL (2.5-4.9); POTASSIUM 4.1 mmol/L (3.5-5.1); SODIUM 136 mmol/L (136-145)
--- NOTE | 2018-10-28 14:07 | PN ---
Teaching Attending Note Name of Resident: Suhail Lal ATTENDING PHYSICIAN STATEMENT I saw and evaluated the patient. I reviewed the resident's note and discussed the case with the resident. I agree with the resident's findings and plan as documented. SUBJECTIVE:had 2 loose BM yesterday and episode of vomiting this AM after breakfast but states that the food was unpalatable. states diarrhea started since the day after the appendectomy. pain has somewhat improved but still there , very vague on specifics. 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 Acute appendicitis- s/p laprscopic appendectomy 10/23. continues to have pain but specific to pain assoc to surgery. tolerating diet. episode of vomitus was more liekly due to not liking the food as she has tolerated lunch since then. pain controlled iwth motrin and tamadol 2. Diarrhea- more likely due to abx assoc diarrhea. off abx. does not have fever or cramps and less likely cdiff. awaiting Cx report. will start bacid 3. Subtherapeutic INR- medication non-compliance. on once daily lovenox and coumadin. INR still subtherapeutic. INR subtherapeutic on arrival but concern was not compliant with therapy. will incrase coumadin tomorrow if does not increase appropriately. pt counselled on importance of compliance and need for follow up with hematology as outpatient 4. Transaminitis- likely ETOH related.resolved 5. CVA 6. HTN- controlled. cont home medications 7. Continuous polysubstance abuse- (Cocaine/THC/ETOH). counselled on need for abstinence. not interested in rehab at this time. 8. DVT ppx- lovenox-coumadin bridge 9. can d/c home pending results of cdiff culture.
[2018-10-28] MEDS ORDERED: HYDROCORTISONE 0.5% TOPICAL CREAM 30 GM TUBE TP PRN (14:41)
--- NOTE | 2018-10-28 14:53 | PN ---
Physical Exam: SUBJECTIVE: Patient seen and examined at bedside. C/o diarrhea, abdominal pain, and nausea. Otherwise refuses interview and examination. OBJECTIVE: Vital Signs Period Temp Pulse Resp BP Sys/Enriquez Pulse Ox Last 24 Hr 98 F-98.6 F 62-89 - 113-140/54-96 100-100 Pt refuses examination. Laboratory Results - last 24 hr 10/28/18 10/28/18 10/28/18 12:25 12:25 12:25 WBC 4.1 RBC 3.46 L Hgb 11.2 Hct 34.2 MCV 98.9 H MCH 32.5 MCHC 32.9 RDW 16.6 H Plt Count 377 D MPV 8.3 Absolute Neuts (auto) 2.3 Neutrophils % 55.7 Lymphocytes % 32.8 Monocytes % 8.0 Eosinophils % 3.0 Basophils % 0.5 Nucleated RBC % 0 PT with INR 14.10 H INR 1.19 H Sodium 136 Potassium 4.1 Chloride 102 Carbon Dioxide 28 Anion Gap 6 L BUN 8 Creatinine 0.5 L Creat Clearance w eGFR 131.69 Random Glucose 86 Calcium 8.9 Phosphorus 2.5 Magnesium 2.1 Active Medications Generic Name Dose Route Start Last Admin Trade Name Freq PRN Reason Stop Dose Admin Acetaminophen 650 mg 10/24/18 00:00 10/28/18 13:54 Tylenol - PO 650 mg Q6H KRISTYN Administration Amlodipine Besylate 2.5 mg 10/24/18 10:00 10/28/18 10:21 Norvasc - PO 2.5 mg DAILY KRISTYN Administration Enoxaparin Sodium 90 mg 10/28/18 10:00 10/28/18 10:23 Lovenox - SQ 90 mg DAILY KRISTYN Administration Folic Acid 1 mg 10/24/18 10:00 10/28/18 10:21 Folic Acid - PO 1 mg DAILY KRISTYN Administration Hydrocortisone 1 applic 10/28/18 14:41 Hytone 0.5% Cream - TP DAILY PRN HEMORRHOIDS Ibuprofen 400 mg 10/26/18 13:33 10/27/18 21:41 Motrin - PO 400 mg Q6H PRN Administration PAIN LEVEL 6-10 Lactobacillus Acidophilus 1 tab 10/28/18 14:15 Bacid - PO DAILY KRISTYN Metoprolol Tartrate 12.5 mg 10/23/18 22:00 10/28/18 10:21 Lopressor - PO 12.5 mg BID KRISTYN Administration Thiamine HCl 100 mg 10/24/18 10:00 10/28/18 10:25 Vitamin B1 - PO 100 mg DAILY KRISTYN Administration Tramadol HCl 25 mg 10/25/18 17:44 10/28/18 10:23 Ultram - PO 25 mg Q8H PRN Administration Pain Level 7 - 10 BREAKTHROUGH Vancomycin HCl 250 mg 10/28/18 18:00 Vancomycin Oral Solution PO Q6HPO [facility] Warfarin Sodium 7.5 mg 10/27/18 14:18 10/27/18 17:23 Coumadin - PO 7.5 mg DAILY@1800 [facility] Administration ASSESSMENT/PLAN: 48 y/o F w/ PMHx HTN, polysubstance abuse (cocaine, marijuana), 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 #Cdiff -positive for Cdiff antigen and toxin -isolation precautions -PO Vancomycin -Bacid #subacute/chronic appendicitis -s/p laparoscopic appendectomy -appendix was found enlarged, inflamed, with adhesions -pain mgmt as per Sx -cleared by ID to hold ABx -IS #h/o splenic infarct -bridging from Lovenox to coumadin -monitor INR -hematology following #HTN -cont norvasc, lopressor #FEN -no IVF -monitor and replete electrolytes -regular diet #PPx -DVT: Lovenox --> Coumadin bridge -GI: not indicated #code -full #dispo -monitor on med/surg -can be discharged from perspective of medicine service Visit type - Emergency Visit Emergency Visit: No - New Patient This patient is new to me today: No - Critical Care Critical Care patient: No
--- NOTE | 2018-10-28 16:16 | PATH ---
Surgical Pathology Report Patient Name: WILY BECKFORD Med. Rec. #: [id number] /Age/Gender: 1970 (Age: 48) / F Account: [id number] Location: [address] [place] [address] Taken: 10/23/2018 Received: 10/24/2018 Reported: 10/28/2018 Physicians: Filiberto Vail M.D. PHYSICIAN EMERGENCY DEPT Specimen(s) Received APPENDIX Clinical History Appendicitis-subacute/chronic (partially treated from one month ago) Final Diagnosis APPENDIX, LAPAROSCOPIC APPENDECTOMY: APPENDIX WITH FOCAL FIBROUS OBLITERATION AND FIBROUS ADHESIONS. Electronically Signed Lisa Suarez M.D. Gross Description Received in formalin labeled "appendix," is an 8.5 cm in length vermiform appendix with a stapled margin of resection and minimal attached fat. The outer surface is flower-albright with fibrous adhesions. There is a staple line at the distal tip. The lumen focally contains fecal material. The wall of the appendix measures up to 0.2 cm in thickness. Entire specimen submitted in 7 cassettes. /10/24/2018 [facility]10/24/2018
--- NOTE | 2018-10-28 16:35 | PN ---
Progress Note, Physician History of Present Illness: Patient with RLQ pain recurrent/persistent, and splenic infarction discovered 1m ago, who was on outpatient coumadin with intermittent compliance and polysubstance abuse, who had questionable appendicitis last month with the start of her symptoms as well. She also had a UTI around then, and had been treated with antibiotics, which she also only finished part of the course of. CT was repeated with po and iv contrast this admission after initial scan showed questionable appendiceal findings, and all recent scans discussed with Dr. Warner of radiology - appendix appeared inflamed in August, and on most recent scan has some air in the lumen with a prominent wall but no surrounding inflammatory changes. This is suggestive of a possible partially treated appendicitis, and though the appendix does not clearly appear inflamed now, it is also not clearly normal. The splenic infarct is smaller and now appears chronic, not acute/subacute. Her case has been discussed at length with hematology. Was given vitamin K Saturday night. PTT had remained elevated for unclear reasons - mixing study sent with no lupus anticoagulant currently detected. She had lap appy , and PTT was normal postop. Coumadin has been restarted. Lovenox also now on 90mg daily. INR up a little this am to 1.19. She is seen and examined in bed just back from bathroom having had more diarrhea. She vomited after breakfast, but did have some yogurt for lunch and some tani matt. She c/o pain in her anorectum, and sometimes in front/lower abdomen too, but it is worse with the diarrhea. C. diff has just come back positive today. She is not on IVF any longer, and did have her bp meds this am. When asked if she would be willling and able to learn to give herself Lovenox injections at home, she indicates her sister had used that in the past and is a home health aide, and that yes, she could do so. - Current Medication List Current Medications: Active Medications Acetaminophen (Tylenol -) 650 mg PO Q6H [facility] Last Admin: 10/28/18 13:54 Dose: 650 mg Amlodipine Besylate (Norvasc -) 2.5 mg PO DAILY [facility] Last Admin: 10/28/18 10:21 Dose: 2.5 mg Enoxaparin Sodium (Lovenox -) 90 mg SQ DAILY [facility] Last Admin: 10/28/18 10:23 Dose: 90 mg Folic Acid (Folic Acid -) 1 mg PO DAILY [facility] Last Admin: 10/28/18 10:21 Dose: 1 mg Hydrocortisone (Hytone 0.5% Cream -) 1 applic TP DAILY PRN PRN Reason: HEMORRHOIDS Ibuprofen (Motrin -) 400 mg PO Q6H PRN PRN Reason: PAIN LEVEL 6-10 Last Admin: 10/27/18 21:41 Dose: 400 mg Lactobacillus Acidophilus (Bacid -) 1 tab PO DAILY [facility] Metoprolol Tartrate (Lopressor -) 12.5 mg PO BID [facility] Last Admin: 10/28/18 10:21 Dose: 12.5 mg Thiamine HCl (Vitamin B1 -) 100 mg PO DAILY [facility] Last Admin: 10/28/18 10:25 Dose: 100 mg Tramadol HCl (Ultram -) 25 mg PO Q8H PRN PRN Reason: Pain Level 7 - 10 BREAKTHROUGH Last Admin: 10/28/18 10:23 Dose: 25 mg Vancomycin HCl (Vancomycin Oral Solution) 250 mg PO Q6HPO [facility] Warfarin Sodium (Coumadin -) 7.5 mg PO DAILY@1800 [facility] Last Admin: 10/27/18 17:23 Dose: 7.5 mg - Objective Vital Signs: Vital Signs Temperature 98.4 F 10/28/18 14:58 Pulse Rate 87 10/28/18 14:58 Respiratory Rate 18 10/28/18 14:58 Blood Pressure 106/68 10/28/18 14:58 O2 Sat by Pulse Oximetry (%) 100 10/28/18 09:00 Vital Signs Period Temp Pulse Resp BP Sys/Enriquez Pulse Ox Last 24 Hr 98 F-98.6 F 62-89 - 106-140/54-96 100-100 Constitutional: Yes: No Distress, Calm, Thin Eyes: Yes: Conjunctiva Clear, EOM Intact HENT: Yes: Atraumatic, Normocephalic Gastrointestinal: Yes: Soft, Distention (mild), Tenderness (mild/minimal RLQ, more incisional, no R/G) Extremities: No: Cool, Cyanosis Integumentary: Yes: Incision (x3 w/steris). No: Jaundice, Rash Wound/Incision: Yes: Clean/Dry, Well Approximated, Steri Strips (x3), Open to air Neurological: Yes: Alert, Oriented. No: Unsteady Gait Labs: CBC, BMP 10/28/18 12:25 10/28/18 12:25 INR, PTT INR 1.19 (0.83-1.09) H 10/28/18 12:25 Microbiology 10/27/18 14:20 Clostridioides difficile Antigen - Final Stool Clostridioides difficile Toxin Assay - Final C. diff positive for antigen and toxin Problem List - Problems (1) Chronic appendicitis Assessment/Plan: probable partially treated/subacute appendicitis POD5 s/p laparoscopic appendectomy pathology shows "focal fibrous obliteration and fibrous adhesions" - discussed with Dr. Dangelo/pathology, and is a nonspecific finding, but presence of adhesions suggests previous inflammatory process; there was no current/acute inflammation incisions c/d/i with steristrips tolerating diet with low but improving po intake emesis this morning, but not since passing gas, moving bowels with multiple episodes diarrhea C. diff positive - po vanco has been ordered to start will change tylenol to PRN also abdominal pain may be related to C. diff infection more than postoperative state would anticipate improvement over next few days with treatment will need to f/u with surgery 2 wks postop for wound check no heavy lifting for at least 4 weeks instructions in d/c plan Code(s): K36 - OTHER APPENDICITIS (2) Splenic infarct Assessment/Plan: now chronic/subacute anticoagulation resumed per hematology, bridging with lovenox follow coags first full dose of coumadin given last night - unclear how quickly she will reach therapeutic levels Code(s): D73.5 - INFARCTION OF SPLEEN (3) RLQ abdominal pain Assessment/Plan: more central/lower abdomen - initial RLQ pain is better tenderness minimal Code(s): R10.31 - RIGHT LOWER QUADRANT PAIN (4) Hypertension Assessment/Plan: home meds have been resumed, BP still in 100s-110s monitor VS closely defer mgmt to primary team Code(s): I10 - ESSENTIAL (PRIMARY) HYPERTENSION Qualifiers: Hypertension type: essential hypertension Qualified Code(s): I10 - Essential (primary) hypertension (5) Tetrahydrocannabinol (THC) use disorder, moderate, dependence Code(s): F12.20 - CANNABIS DEPENDENCE, UNCOMPLICATED (6) Alcohol dependence Assessment/Plan: counseled repeatedly regarding importance of abstaining or moderating alcohol use, especially while on coumadin, and that interaction could lead to excessive anticoagulation Code(s): F10.20 - ALCOHOL DEPENDENCE, UNCOMPLICATED Qualifiers: Substance use status: uncomplicated Qualified Code(s): F10.20 - Alcohol dependence, uncomplicated
[2018-10-28] MEDS: LACTOBACILLUS ACIDOPHILUS 1 TABLET PO SCH (16:37)
[2018-10-28] MEDS: WARFARIN NA 7.5 MG TABLET (FP) PO SCH (17:28)
[2018-10-28] MEDS: VANCOMYCIN 250 MG/5 ML ORAL SOLUTION PO SCH (17:29)
[2018-10-28] MEDS: ACETAMINOPHEN 325 MG TABLET (FP) PO PRN (18:31)
[2018-10-28] MEDS ORDERED: PT OWN MED DRAWER 7, Y5N ONE (19:29)
[2018-10-28] MEDS: HYDROCORTISONE 2.5% TOPICAL CREAM 30 GM TUBE TP SCH (21:54)
[2018-10-29] MEDS: VANCOMYCIN 250 MG/5 ML ORAL SOLUTION PO SCH ×4 (00:15→18:42)
[2018-10-29] MEDS: ACETAMINOPHEN 325 MG TABLET (FP) PO PRN ×3 (00:55→16:04)
[2018-10-29] MEDS ORDERED: PT OWN MED DRAWER 7, Y5N ONE (09:55)
[2018-10-29 10:18] LABS: BASO % 0.8 % (0-2.0); EOS % 3.6 % (0-4.5); HEMATOCRIT 35.9 % (32.4-45.2); HEMOGLOBIN 11.9 GM/dL (10.7-15.3); LYMPH % 41.2 % (8-40); MCH 32.8 pg (25.7-33.7); MCHC 33.1 g/dl (32.0-36.0); MEAN CELL VOLUME 99.1 fl (80-96); NEUT % 36.4 % (42.8-82.8); PLATELET COUNT 421 K/MM3 (134-434); RBC 3.62 M/mm3 (3.60-5.2); RDW 16.7 % (11.6-15.6)
[2018-10-29 10:34] LABS: INR 1.34 (0.83-1.09); PROTHROMBIN TIME (PATIENT) 15.9 SEC (9.7-13.0)
[2018-10-29 10:51] LABS: ANION GAP 7 MMOL/L (8-16); BLOOD UREA NITROGEN 6 mg/dL (7-18); CALCIUM 9.6 mg/dL (8.5-10.1); CHLORIDE 102 mmol/L (98-107); CO2 27 mmol/L (21-32); CREATININE 0.7 mg/dL (0.55-1.3); GLUCOSE,RANDOM 114 mg/dL (74-106); MAGNESIUM 2.1 mg/dL (1.8-2.4); PHOSPHOROUS 3.2 mg/dL (2.5-4.9); POTASSIUM 3.7 mmol/L (3.5-5.1); SODIUM 136 mmol/L (136-145)
[2018-10-29] MEDS: HYDROCORTISONE 2.5% TOPICAL CREAM 30 GM TUBE TP SCH ×2 (10:53→21:32)
[2018-10-29] MEDS: LACTOBACILLUS ACIDOPHILUS 1 TABLET PO SCH (10:54)
[2018-10-29] MEDS: METOPROLOL TARTRATE 25 MG TABLET (FP) PO SCH ×3 (10:54→21:33)
[2018-10-29] MEDS: ENOXAPARIN NA (PORCINE) 100 MG/1 ML DISP.SYRIN SQ SCH (10:55)
[2018-10-29] MEDS: amLODIPine BESYLATE 2.5 MG TABLET (FP) PO SCH (10:55)
[2018-10-29] MEDS: FOLIC ACID 1 MG TABLET (FP) PO SCH (10:55)
[2018-10-29] MEDS: THIAMINE HCL 100 MG TABLET (FP) PO SCH (10:56)
[2018-10-29] MEDS: traMADol HCL 50 MG TABLET PO PRN ×2 (10:57→21:34)
--- NOTE | 2018-10-29 11:16 | PN ---
Progress Note, Physician History of Present Illness: stable no new issues - Current Medication List Current Medications: Active Medications Acetaminophen (Tylenol -) 650 mg PO Q6H PRN PRN Reason: PAIN LEVEL 6-10 Last Admin: 10/29/18 06:20 Dose: 650 mg Amlodipine Besylate (Norvasc -) 2.5 mg PO DAILY [facility] Last Admin: 10/29/18 10:55 Dose: 2.5 mg Enoxaparin Sodium (Lovenox -) 90 mg SQ DAILY [facility] Last Admin: 10/29/18 10:55 Dose: 90 mg Folic Acid (Folic Acid -) 1 mg PO DAILY [facility] Last Admin: 10/29/18 10:55 Dose: 1 mg Hydrocortisone (Anusol 2.5% Hc Cream -) 1 applic TP BID [facility] Last Admin: 10/29/18 10:53 Dose: 1 applic Lactobacillus Acidophilus (Bacid -) 1 tab PO DAILY [facility] Last Admin: 10/29/18 10:54 Dose: 1 tab Metoprolol Tartrate (Lopressor -) 12.5 mg PO BID [facility] Last Admin: 10/28/18 21:54 Dose: 12.5 mg Thiamine HCl (Vitamin B1 -) 100 mg PO DAILY [facility] Last Admin: 10/29/18 10:56 Dose: 100 mg Tramadol HCl (Ultram -) 25 mg PO Q8H PRN PRN Reason: Pain Level 7 - 10 BREAKTHROUGH Last Admin: 10/29/18 10:57 Dose: 25 mg Vancomycin HCl (Vancomycin Oral Solution) 250 mg PO Q6HPO [facility] Last Admin: 10/29/18 06:20 Dose: 5 ml Warfarin Sodium (Coumadin -) 7.5 mg PO DAILY@1800 [facility] Last Admin: 10/28/18 17:28 Dose: 7.5 mg - Objective Vital Signs: Vital Signs Temperature 98.0 F 10/29/18 06:00 Pulse Rate 70 10/29/18 06:00 Respiratory Rate 18 10/29/18 06:00 Blood Pressure 102/60 10/29/18 06:00 O2 Sat by Pulse Oximetry (%) 100 10/28/18 09:00 Constitutional: Yes: No Distress, Calm Cardiovascular: Yes: Regular Rate and Rhythm Respiratory: Yes: Regular, CTA Bilaterally Gastrointestinal: Yes: Soft, Ascites, Tenderness Musculoskeletal: Yes: WNL Extremities: Yes: WNL Wound/Incision: Yes: Clean/Dry, Well Approximated Neurological: Yes: Alert, Oriented Labs: CBC, BMP 10/29/18 10:02 10/29/18 10:02 INR, PTT INR 1.34 (0.83-1.09) H 10/29/18 10:02 Fibrinogen 385.0 mg/dL (238-498) 10/21/18 00:19 Assessment/Plan Problem List - Problems (1) Chronic appendicitis Code(s): K36 - OTHER APPENDICITIS (2) Splenic infarct Code(s): D73.5 - INFARCTION OF SPLEEN (3) RLQ abdominal pain Code(s): R10.31 - RIGHT LOWER QUADRANT PAIN (4) Chills without fever Code(s): R68.83 - CHILLS (WITHOUT FEVER) (5) Diarrhea Code(s): R19.7 - DIARRHEA, UNSPECIFIED Qualifiers: Diarrhea type: unspecified type Qualified Code(s): R19.7 - Diarrhea, unspecified (6) Hypertension Code(s): I10 - ESSENTIAL (PRIMARY) HYPERTENSION Qualifiers: Hypertension type: essential hypertension Qualified Code(s): I10 - Essential (primary) hypertension (7) Tetrahydrocannabinol (THC) use disorder, moderate, dependence Code(s): F12.20 - CANNABIS DEPENDENCE, UNCOMPLICATED (8) Alcohol dependence Code(s): F10.20 - ALCOHOL DEPENDENCE, UNCOMPLICATED Qualifiers: Substance use status: uncomplicated Qualified Code(s): F10.20 - Alcohol dependence, uncomplicated plan no abx please give her vanco orally for 14 days
--- NOTE | 2018-10-29 11:45 | DS ---
Physical Exam: SUBJECTIVE: Patient seen and examined at bedside. C/o diarrhea, abdominal pain, and nausea. Otherwise refuses interview and examination. OBJECTIVE: Vital Signs Period Temp Pulse Resp BP Sys/Enriquez Pulse Ox Last 24 Hr 98.0 F-98.6 F 70-87 18-18 101-106/60-69 PHYSICAL EXAM Pt refuses examination. LABS Laboratory Results - last 24 hr 10/28/18 10/28/18 10/28/18 12:25 12:25 12:25 WBC 4.1 RBC 3.46 L Hgb 11.2 Hct 34.2 MCV 98.9 H MCH 32.5 MCHC 32.9 RDW 16.6 H Plt Count 377 D MPV 8.3 Absolute Neuts (auto) 2.3 Neutrophils % 55.7 Lymphocytes % 32.8 Monocytes % 8.0 Eosinophils % 3.0 Basophils % 0.5 Nucleated RBC % 0 PT with INR 14.10 H INR 1.19 H Sodium 136 Potassium 4.1 Chloride 102 Carbon Dioxide 28 Anion Gap 6 L BUN 8 Creatinine 0.5 L Creat Clearance w eGFR 131.69 Random Glucose 86 Calcium 8.9 Phosphorus 2.5 Magnesium 2.1 10/29/18 10/29/18 10/29/18 10:02 10:02 10:02 WBC 4.0 RBC 3.62 Hgb 11.9 Hct 35.9 MCV 99.1 H MCH 32.8 MCHC 33.1 RDW 16.7 H Plt Count 421 MPV 8.0 Absolute Neuts (auto) 1.5 Neutrophils % 36.4 L D Lymphocytes % 41.2 H D Monocytes % 18.0 H D Eosinophils % 3.6 Basophils % 0.8 Nucleated RBC % 0 PT with INR 15.90 H INR 1.34 H Sodium 136 Potassium 3.7 Chloride 102 Carbon Dioxide 27 Anion Gap 7 L BUN 6 L Creatinine 0.7 Creat Clearance w eGFR 89.31 Random Glucose 114 H Calcium 9.6 Phosphorus 3.2 Magnesium 2.1 HOSPITAL COURSE: Date of Admission:10/19/18 Patient is a 48 y/o F w/ PMHx HTN, polysubstance abuse (cocaine, marijuana), 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 TVUS was negative. Dry and contrast CT a/p were equivocal in finding appendiceal prominence although acute appendicitis appeared unlikely. Surgery, hematology, and ID were consulted. Patient was prepped for appendectomy and initiated on lalo-op ABx but surgery was delayed by finding of elevated PTT. PTT normalized and patient underwent appendectomy; coagulation studies were eventually reported as unrevealing, negative for LA, mixing studies were not completed. Following surgery patient was initiated on therapeutic Lovenox for bridging to Coumadin. Hospitalization was complicated by development of symptomatic C diff infection. Patient was discharged on Lovenox and Coumadin per hematology parameters, PO Vancomycin and Bacid, with outpatient followup referrals to surgery, hematology, GI, and primary care. Date of Discharge: 10/29/18 Minutes to complete discharge: 40 Discharge Summary Reason For Visit: APPENDICITIS Current Active Problems Abdominal pain (Acute) C. difficile diarrhea (Acute) Chills without fever (Acute) Chronic appendicitis (Acute) Diarrhea (Acute) Nausea & vomiting (Acute) RLQ abdominal pain (Acute) Vomiting (Acute) Condition: Stable - Instructions Diet, Activity, Other Instructions: You were hospitalized for abdominal pain. You were seen and evaluated by surgery and hematology. CT scans revealed abnormalities in your appendix, and you underwent laparoscopic appendectomy with Dr. Vail. You will require outpatient followup with Dr. Vail: Postoperative instructions: You had a laparoscopic appendectomy on 10/23/[address] Filiberto Vail of [facility]. Activity: Resume your usual activities gradually, but no heavy exertion or lifting more than 10-15 pounds for 1 month. Sticky tapes on the incisions will fall off by themselves. You may shower daily, just pat the incision areas dry. No bath or swimming until skin incisions have fully healed. Eat lightly at first , but advance to your usual diet as tolerated. Pain: For pain, you may use Tylenol (acetaminophen) 1-2 pills every 6 hours as needed. Do not take more than 4000mg of acetaminophen in a day. Take medications as prescribed or indicated on the labeling. If you are prescribed something stronger for pain, take it as instructed and stop using it as soon as your pain decreases enough to need only Tylenol. Follow-up: Call Dr. Vail's office at [phone] to make your postop appointment (Saturday in approximately 2 weeks after surgery). Clinic is held in the [facility] on the first floor of [facility]. Call the office if you have: * increasing pain not responsive to pain medication * fever of 101F or higher * vomiting * unusual or increasing bleeding or drainage from wounds * increasing redness or swelling at wound sites Also, call for an appointment with a primary medical doctor you have been referred to as instructed below. Your diarrhea was found to be caused by a GI bacteria and toxin known as Clostridium difficile (C. diff). You have been prescribed an antibiotic (oral Vancomycin) to treat this infection, which must be taken twice daily for its full course, even once your diarrhea gets better. If your diarrhea is not improving, make sure to call and/or see the medical doctor you have been referred to for followup. It is very important that you and everyone in your household WASHES their HANDS with soap and water frequently and after every time the bathroom is used, to prevent the spread of the infection to others. You will also require outpatient followup with GI and hematology for evaluation and control of symptoms and management of your splenic infarction and eventual colonoscopy. You will also need close followup with your primary care doctor to monitor your Coumadin use. Referrals have been made on your behalf. Please see these providers within 2-3 days of your hospital discharge. On the recommendation of hematology, your dose of Coumadin has been slightly increased. A new prescription has been sent to your pharmacy. Please take Coumadin at this new dose every day without changes, unless instructed differently by your doctors after blood tests. Failing to take Coumadin as prescribed puts you at risk of worsening symptoms as well as serious and potentially life-threatening injury. You require a second medication called Lovenox to prevent blood clots while the Coumadin takes effect in your body. You have been receiving Lovenox in the hospital. You have been prescribed another week of daily injections of Lovenox to take as an outpatient. Administer these injections every day as prescribed. Your primary medical doctor will monitor the effects of the blood thinners once you are discharged. It is therefore critical that you follow closely with your primary doctor within 2-3 days of discharge. Please be aware that blood thinning medications do put you at risk of significant and difficult to control bleeding, and require careful monitoring by your doctor. The risk of bleeding is worsened when accompanied by alcohol as this can also thin your blood and put you at a risk of bleeding if you were to fall and injure yourself. Otherwise resume taking your Norvasc, Lopressor, and Protonix as usual. Please do not make any changes to your medication regimen without first consulting your doctors. If you experience any new or worsening abdominal pain, chest pain , shortness of breath, blood in your stool or urine, any other abnormal bleeding or bruising, fever, chills, or any other new or concerning symptoms, please return to the Emergency Department. Referrals: Remberto Rangel MD [Staff Physician] - Tyrese Medeiros DO [Staff Physician] - Filiberto Vail MD [Staff Physician] - 11/05/18 (CALL office for appointment next week) Antione Hdz MD [Staff Physician] - Disposition: HOME - Home Medications Comprehensive Discharge Medication List: Ambulatory Orders Amlodipine Besylate [Norvasc -] 2.5 mg PO DAILY #15 tablet 09/28/18 Metoprolol Tartrate [Lopressor -] 12.5 mg PO BID #60 tablet 09/28/18 Pantoprazole Sodium [Protonix -] 20 mg PO DAILY #30 tablet.ec 09/28/18 Warfarin Sodium 8 mg PO DAILY@1800 #30 tablet 10/20/18 Enoxaparin Sodium [Lovenox] 90 mg SQ DAILY #7 syringe 10/29/18 Lactobacillus Acidophilus [Bacid -] 1 tab PO DAILY #30 tab 10/29/18 Thiamine HCl [Vitamin B1 -] 100 mg PO DAILY tablet 10/29/18 Vancomycin Oral Solution 250 mg PO Q6H #48 capsule 10/29/18 This patient is new to me today: No Emergency Visit: No Critical Care patient: No - Discharge Referral Referred to [facility] No
--- NOTE | 2018-10-29 11:46 | PN ---
Teaching Attending Note Name of Resident: Suhail Lal ATTENDING PHYSICIAN STATEMENT I saw and evaluated the patient. I reviewed the resident's note and discussed the case with the resident. I agree with the resident's findings and plan as documented. SUBJECTIVE:reports 2 loose BM this AM. having rectal pain due to BM. tolerating diet. denies CP, SOB, fever, chills, N/V/C. BRBPR or melena OBJECTIVE: Last Vital Signs Temp Pulse Resp BP Pulse Ox 98.0 F 70 18 102/60 100 10/29/18 06:00 10/29/18 06:00 10/29/18 06:00 10/29/18 06:00 10/28/18 09:00 General NAD Abdomen slight distention, mild tenderness over surgical incision, surgical incisions with tape over it ASSESSMENT AND PLAN: 48yo F with PMH CVA, HTN, continuous polysubtance abuse, spleenic infarct on coumadin presented to the ER with RLQ pain 1. Subacute appendicitis- s/p laprascopic appendectomy 10/23. some tenderness over surgical incisons which seem to be healing well. tolerating diet. cont motirn for pain 2. C diff Diarrhea- had 2 loose BM since yesterday afternoon. afebrile, tolerating diet and is able to drink. on vanco po for 14 days. discussed with patient need for frequent hand washing and personal hygiene to prevent transmission to others. cont bacid 3. Subtherapeutic INR- medication non-compliance. on once daily lovenox and coumadin. INR still subtherapeutic. will need to continue with lovenox bridge to coumadin 8mg. will need frequent INR monitoring. repeat level in 2 days. 4. Transaminitis- likely ETOH related.resolved 5. CVA 6. HTN- controlled. cont home medications 7. Continuous polysubstance abuse- (Cocaine/THC/ETOH). counselled on need for abstinence. not interested in rehab at this time. 8. DVT ppx- lovenox-coumadin bridge 9. d/c home. attempted to area counselor on need for frequent hand washing and need for close monitoring of INR, pt became very upset and was verbally abusive.
--- NOTE | 2018-10-29 14:37 | PN ---
Progress Note, Physician History of Present Illness: Patient with RLQ pain recurrent/persistent, and splenic infarction discovered 1m ago, who was on outpatient coumadin with intermittent compliance and polysubstance abuse, who had questionable appendicitis last month with the start of her symptoms as well. She also had a UTI around then, and had been treated with antibiotics, which she also only finished part of the course of. CT was repeated with po and iv contrast this admission after initial scan showed questionable appendiceal findings, and all recent scans discussed with Dr. Warner of radiology - appendix appeared inflamed in August, and on most recent scan has some air in the lumen with a prominent wall but no surrounding inflammatory changes. This is suggestive of a possible partially treated appendicitis, and though the appendix does not clearly appear inflamed now, it is also not clearly normal. The splenic infarct is smaller and now appears chronic, not acute/subacute. Her case has been discussed at length with hematology. Was given vitamin K Saturday night. PTT had remained elevated for unclear reasons - mixing study sent with no lupus anticoagulant currently detected. She had lap appy , and PTT was normal postop. Coumadin has been restarted. Lovenox also now on 90mg daily. INR up today to 1.34. She is seen and examined in bed. She vomited again this morning after breakfast (oatmeal), but is drinking fluids. She c/o pain in her anorectum especially with the diarrhea. On po Vanco for C. diff. Less abdominal pain, mostly suprapubic related to the diarrhea and umbilical/incisional. - Current Medication List Current Medications: Active Medications Acetaminophen (Tylenol -) 650 mg PO Q6H PRN PRN Reason: PAIN LEVEL 6-10 Last Admin: 10/29/18 06:20 Dose: 650 mg Amlodipine Besylate (Norvasc -) 2.5 mg PO DAILY [facility] Last Admin: 10/29/18 10:55 Dose: 2.5 mg Enoxaparin Sodium (Lovenox -) 90 mg SQ DAILY [facility] Last Admin: 10/29/18 10:55 Dose: 90 mg Folic Acid (Folic Acid -) 1 mg PO DAILY [facility] Last Admin: 10/29/18 10:55 Dose: 1 mg Hydrocortisone (Anusol 2.5% Hc Cream -) 1 applic TP BID [facility] Last Admin: 10/29/18 10:53 Dose: 1 applic Lactobacillus Acidophilus (Bacid -) 1 tab PO DAILY [facility] Last Admin: 10/29/18 10:54 Dose: 1 tab Metoprolol Tartrate (Lopressor -) 12.5 mg PO BID [facility] Last Admin: 10/29/18 13:14 Dose: 12.5 mg Thiamine HCl (Vitamin B1 -) 100 mg PO DAILY [facility] Last Admin: 10/29/18 10:56 Dose: 100 mg Tramadol HCl (Ultram -) 25 mg PO Q8H PRN PRN Reason: Pain Level 7 - 10 BREAKTHROUGH Last Admin: 10/29/18 10:57 Dose: 25 mg Vancomycin HCl (Vancomycin Oral Solution) 250 mg PO Q6HPO [facility] Last Admin: 10/29/18 13:15 Dose: 5 ml Warfarin Sodium (Coumadin -) 7.5 mg PO DAILY@1800 [facility] Last Admin: 10/28/18 17:28 Dose: 7.5 mg - Objective Vital Signs: Vital Signs Temperature 98 F 10/29/18 14:12 Pulse Rate 80 10/29/18 13:38 Respiratory Rate 18 10/29/18 13:38 Blood Pressure 112/68 10/29/18 13:38 O2 Sat by Pulse Oximetry (%) 100 10/28/18 09:00 Vital Signs Period Temp Pulse Resp BP Sys/Enriquez Pulse Ox Last 24 Hr 98 F-98.6 F 70-87 18-18 101-112/60-69 Constitutional: Yes: No Distress, Calm, Thin Eyes: Yes: Conjunctiva Clear, EOM Intact HENT: Yes: Atraumatic, Normocephalic Gastrointestinal: Yes: Soft, Distention (less), Tenderness (mild incisional/ umbilical, mild lower/suprapubic - minimal RLQ or other quadrants) Extremities: No: Cool, Cyanosis Integumentary: Yes: Incision (x3 w/steris). No: Jaundice, Rash Wound/Incision: Yes: Clean/Dry, Well Approximated, Steri Strips (x3), Open to air Neurological: Yes: Alert, Oriented Labs: CBC, BMP 10/29/18 10:02 10/29/18 10:02 INR, PTT INR 1.34 (0.83-1.09) H 10/29/18 10:02 Problem List - Problems (1) Chronic appendicitis Assessment/Plan: probable partially treated/subacute appendicitis POD6 s/p laparoscopic appendectomy pathology shows "focal fibrous obliteration and fibrous adhesions" - discussed with Dr. Dangelo/pathology, and is a nonspecific finding, but presence of adhesions suggests previous inflammatory process; there was no current/acute inflammation incisions c/d/i with steristrips tolerating diet with low but improving po intake emesis this morning again, but not since passing gas, moving bowels with multiple episodes diarrhea C. diff positive - po vanco started last night pain control with prn tylenol and/or tramadol abdominal pain may be related to C. diff infection more than postoperative state would anticipate improvement over next few days with treatment will need to f/u with surgery next week postop for wound check gave her my card no heavy lifting for at least 4 weeks instructions in d/c plan Code(s): K36 - OTHER APPENDICITIS (2) C. difficile diarrhea Assessment/Plan: on po vanco per ID to complete full course still with diarrhea Code(s): A04.72 - ENTEROCOLITIS D/T CLOSTRIDIUM DIFFICILE, NOT SPCF RECUR (3) Splenic infarct Assessment/Plan: now chronic/subacute anticoagulation resumed per hematology, bridging with lovenox follow coags INR rising Code(s): D73.5 - INFARCTION OF SPLEEN (4) Hypertension Assessment/Plan: home meds have been resumed, BP still low in 100s-110s monitor VS closely defer mgmt to primary team Code(s): I10 - ESSENTIAL (PRIMARY) HYPERTENSION Qualifiers: Hypertension type: essential hypertension Qualified Code(s): I10 - Essential (primary) hypertension (5) Tetrahydrocannabinol (THC) use disorder, moderate, dependence Code(s): F12.20 - CANNABIS DEPENDENCE, UNCOMPLICATED (6) Alcohol dependence Code(s): F10.20 - ALCOHOL DEPENDENCE, UNCOMPLICATED Qualifiers: Substance use status: uncomplicated Qualified Code(s): F10.20 - Alcohol dependence, uncomplicated
[2018-10-29] MEDS: WARFARIN NA 7.5 MG TABLET (FP) PO SCH (18:04)
[2018-10-30] MEDS: VANCOMYCIN 250 MG/5 ML ORAL SOLUTION PO SCH ×2 (00:05→05:45)
[2018-10-30] MEDS: traMADol HCL 50 MG TABLET PO PRN (05:45)
[2018-10-30] MEDS: ACETAMINOPHEN 325 MG TABLET (FP) PO PRN (08:18)
[2018-10-30] MEDS: LACTOBACILLUS ACIDOPHILUS 1 TABLET PO SCH (10:18)
[2018-10-30] MEDS: FOLIC ACID 1 MG TABLET (FP) PO SCH (10:18)
[2018-10-30] MEDS: HYDROCORTISONE 2.5% TOPICAL CREAM 30 GM TUBE TP SCH (10:18)
[2018-10-30] MEDS: ENOXAPARIN NA (PORCINE) 100 MG/1 ML DISP.SYRIN SQ SCH (10:19)
[2018-10-30] MEDS: METOPROLOL TARTRATE 25 MG TABLET (FP) PO SCH (10:19)
[2018-10-30] MEDS: amLODIPine BESYLATE 2.5 MG TABLET (FP) PO SCH (10:19)
[2018-10-30] MEDS: THIAMINE HCL 100 MG TABLET (FP) PO SCH (10:19)
[2018-10-30 10:33] VITALS: BP 124/75; PULSE 76; TEMP 98.2
--- NOTE | 2018-11-01 09:24 | OP ---
DATE OF OPERATION: 10/23/2018 PREOPERATIVE DIAGNOSIS: Subacute/chronic appendicitis (partially treated from 1 month ago). POSTOPERATIVE DIAGNOSIS: Subacute/chronic appendicitis (partially treated from 1 month ago). PROCEDURE: Laparoscopic appendectomy. SURGEON: Filiberto Vail MD ANESTHESIA: General endotracheal and local 20 mL of 0.5% Marcaine. ESTIMATED BLOOD LOSS: 10 mL. FLUIDS: 1600 mL crystalloid. URINE OUTPUT: 400 mL. FINDINGS: Firm, elongated, possibly inflamed appendix with filmy overlying adhesions to all adjacent structures. There was no yellow or purulent fluid noted. DISPOSITION: Stable and extubated to PACU. INDICATIONS FOR PROCEDURE: The patient is a 48-year-old female polysubstance abuser who was admitted to Medicine with recurrent right lower quadrant pain associated with chills, nausea, vomiting, and diarrhea. She had multiple other somatic complaints including headaches, body aches, a rash on her neck initially among others. She had been on Coumadin for approximately 1 month for incidental discovery of a small splenic infarction during her last hospitalization in August at which time there was also a question of appendicitis but was deemed to be unlikely in light of the acute splenic infarct. At the time, she had also been discharged on antibiotics for a urinary tract infection, which she took part of the course of but then the bottle was lost, and several days prior to this admission she had been in the emergency room noting that the bottle had been lost, and she has not been on antibiotic since. The Coumadin she admits to taking inconsistently and had been in with subtherapeutic INRs both several days prior as well as on this admission. She is at times a heavy drinker or alcohol and smokes marijuana but cannot quantify the frequency. Toxicology screen on admission was also positive for cocaine, which she admits to using nasally in the last few weeks and amphetamines, which she does not recall or admit using but may have been a cross reaction to a pill of some sort that a friend gave her to help her sleep. On initial consultation by Surgery, she indicated that her right lower quadrant pain had been significant 1 month prior at her last admission and thinks she may still have the same problem, but the pain only came back this bad approximately 2 days prior. She had no history of STDs, never had an abnormal Pap smear, and had not been sexually active in several months. White count was 4.5, INR was 1.94 initially, and the CT had been done with IV but no oral contrast again with a reading that was potentially suspicious for possible appendicitis. The patient initially was seen and the scans discussed with Radiology directly. It was felt that the appendix did not currently appear clearly inflamed, although it may have looked more so the month prior. The patient had been intermittently on antibiotics since then so may have had a partially treated appendicitis, and she was painful and tender in the right lower quadrant but not focally so. Primary team arranged for a transvaginal ultrasound to check the genital structures, and a plan was made to repeat the CT of the abdomen and pelvis with p.o. and IV contrast to better evaluate the appendix and the right lower quadrant. She was treated with IV fluids, kept n.p.o., and followed over the next several days. The repeat CT then was also reviewed with Radiology and was noted to show some air in the appendiceal lumen with a prominent wall but no surrounding inflammatory changes taken in context with the previous scans suggestive, again, of partially treated appendicitis whereby although the appendix did not clearly appear inflamed currently, it was also not clearly 100% normal. The patient was also being treated by Hematology regarding her need for anticoagulation for the splenic infarct, although she had been subtherapeutic upon arrival, had been placed briefly on a heparin drip by Hematology, which when it was stopped in anticipation of possible surgery revealed that her PTT had remained elevated as it was on admission also, and this did not resolve initially after 2 units of FFP transfusion. Risks, benefits, and alternatives of laparoscopic, possible open, appendectomy were discussed with the patient including, but not limited to, bleeding, infection, injury to adjacent structures, intestinal leak or injury, intra-abdominal abscess, incisional hernia, need for further procedures in the future, and the possibility that if the appendix is not the current source of her pain that it may or may not resolve completely the pain and the tenderness that she was feeling. Alternatives inclusive of, again, not doing surgery at this time were also discussed, which had the potential the lead to recurrent appendicitis, appendiceal rupture, intra-abdominal abscess, sepsis, or . The patient was definitely agreeable to proceeding with appendectomy and signed informed consent for a laparoscopic, possible open, appendectomy. But again, after this was initially planned, the patient was still found to be coagulopathic, and Hematology was involved in trying to make sure she would be safe for an operation. Over the last couple of days, her PTT was noted to fully normalize as did her INR, which had been on the downtrend but had not yet been normal. studies were sent, which returned with results showing no presence of a lupus anticoagulant, which had previously been an equivocal finding. In consultation with Hematology and Medicine, it was determined that once her numbers normalized, she was not at significant risk for bleeding complications but potentially more at risk for thrombophilic complications and would need to return to anticoagulation as soon as reasonably possible after surgery but was cleared to go for her appendectomy. DESCRIPTION OF PROCEDURE: The patient is now brought to the operating room for this procedure. Sequential compression devices were applied to bilateral lower extremities during the procedure, and scheduled antibiotics, which had been started once the decision had been made to proceed with appendectomy, were continued the perioperative period. After induction and intubation by Anesthesia, a Jacobs catheter was placed in the patient's bladder, which was removed at the end of the case. A small infraumbilical midline incision was made with a scalpel and carried into subcutaneous tissues with electrocautery until the abdominal wall fascia was identified, scored with electrocautery, and elevated with Kaci clamps. The peritoneum was entered bluntly with the tip of a clamp and a fingertip inserted to ensure entry into the abdominal cavity in the absence of any underlying adhesions. A stay suture in the fascia was then placed for later closure with 0 Vicryl in figure of eight fashion and a Carroll trocar introduced directly into the abdominal cavity and secured in place with balloon. The abdomen was insufflated with carbon dioxide. The patient was placed in Trendelenburg position with the right side planed upward and a laparoscope inserted to inspect the abdominal cavity. Two additional 5-mm ports were then also placed in the left lower quadrant suprapubic positioned and the camera switched to the left lower quadrant port. A segment of colon was immediately visible in the lower abdomen upon entry into the abdominal cavity. Although initially there was a question of whether this appeared to be cecum, it was quickly identified to be sigmoid. There was no fluid present in the pelvis itself or in the right lower quadrant. The sigmoid where it came up out of the pelvis and travelled proximally presumptively toward the end of the descending colon its proximal junction with the descending colon could not be clearly identified, and it appeared to be air filled and tethered somewhat at its proximal aspect to the base of the abdomen where a number of filmy adhesions seemed to overlie all adjacent structures in this area. The cecum was then identified secondarily further up into the right mid abdomen and the tinea followed down in attempt to identify the appendix. The small bowel and terminal ileum were also identified finally entering the cecum from the medial side where the veil of Treves was located, but there were filmy overlying adhesions in this area making it difficult initially to identify the appendix itself except by feel. Grasper was used to identify a long, tubular, firm structure believed to be the appendix, and filmy adhesions overlying were very carefully and thoroughly bluntly stretched and pulled apart with the graspers until it was clear that in fact this was the appendix extending from the cecum and separately from the small bowel, which medial to it. Once it became clear that we did have the appendix as the structure, it was grasped with a grasper and elevated in attempt to identify the junction with the cecum. A [place] dissector was used to create a window at the base of the appendix where it did join the cecum through the filmy adhesions in order to allow a 45 purple load of the Endo SONAL stapler to be used to transect the base of the appendix from the cecum. There was really no overt bleeding either from the staple line or from the adhesions themselves, although the adhesed tissues did develop some purple areas. There was a little bit of oozing at times, not enough to require cauterization, but the tissues as they got stretched did get inspected carefully over and over again for hemostasis. The appendix once the base had been transected was grasped and elevated in an attempt to identify the full length of the appendix, and the tip was located a further distance away underneath these filmy adhesions. Care was taken to identify the terminal ileum and the veil of Treves to make sure that they were not within the field of the mesoappendix that was trying to be transected with another load of the Endo SONAL stapler. A white load was then introduced and after multiple attempts carefully manipulated into place to transect what was left of the mesoappendix making sure that we were far enough away from the terminal ileum to preserve the small bowel. Once the appendix had been entirely , it was temporarily sat down in the right lower quadrant to allow for inspection of the operative field in the area of the pelvis. Again, no fluid had been noted in the pelvis at all. The suction director of philanthropy was, however, used gently suction the operative site and irrigate and suction fluid to make sure there was no actual bleeding. The sigmoid itself again where the proximal aspect of the sigmoid was seen tethered down underneath some of these filmy adhesions. The adhesions were elevated briefly at one point to identify whether or not anything needed to be lysed free up the proximal aspect of the sigmoid, but it was decided not to do any further dissection in this area. Ultimately, the appendix in the EndoCatch bag was retrieved out the Carroll port site under direct vision. The 5-mm ports were removed as well under direct vision. The suprapubic was removed under direct vision and the left lower quadrant port with the camera in it removed after the appendix had come out the umbilical site. The abdomen was then exsufflated of carbon dioxide. The patient returned to neutral position. The stay suture at the umbilicus tied to close the fascia there, and hemostasis was achieved in the port sites with electrocautery where necessary. Of note, during the inspection of the pelvis in the abdominal cavity, the patient's uterus had been identified, elevated to look beneath it, and at least the right ovary noted to appear normal. Local anesthetic was then infiltrated into all 3 port sites. The skin was closed with 4-0 Vicryl subcuticular sutures including a running at the umbilicus. Benzoin and Steri-Strips were applied over each incision and dressings of gauze and Tegaderm placed over these. Counts were correct at the end of the procedure. The patient was then awakened and extubated by Anesthesia after the Jacobs catheter had been removed from her bladder and was returned to a stretcher and taken to the recovery room in stable condition having tolerated the procedure well. Filiberto Vail M.D. [id number]
== END 2018-10-30 10:03 | disposition home or self-care (01) | DRG 225 ==
LOC: JER 23:49 → JASUSAT 10-19 07:08 → JERBED 10-19 09:53 → J5S 10-19 11:29 → J6S 10-21 19:37 → J5S 10-21 19:39
PROVIDERS: ADMIT Internal Medicine; ATTEND Internal Medicine
PROC: 30233L1 Transfusion of Nonautologous Fresh Plasma into Peripheral Vein, Percutaneous Approach (ICD-10-PCS; 2018-10-21)
PROC: 30233K1 Transfusion of Nonautologous Frozen Plasma into Peripheral Vein, Percutaneous Approach (ICD-10-PCS; 2018-10-21)
PROC: 0DTJ4ZZ Resection of Appendix, Percutaneous Endoscopic Approach (ICD-10-PCS; principal; 2018-10-23 15:00)
DX: K35.80 Unspecified acute appendicitis (principal); R74.0 Nonspecific elevation of levels of transaminase and lactic acid dehydrogenase [LDH]; D75.89 Other specified diseases of blood and blood-forming organs; F10.10 Alcohol abuse, uncomplicated; F14.10 Cocaine abuse, uncomplicated; F12.20 Cannabis dependence, uncomplicated; I10 Essential (primary) hypertension; D73.5 Infarction of spleen; D49.0 Neoplasm of unspecified behavior of digestive system; K21.9 Gastro-esophageal reflux disease without esophagitis; K57.90 Diverticulosis of intestine, part unspecified, without perforation or abscess without bleeding; K42.9 Umbilical hernia without obstruction or gangrene; K20.9 Esophagitis, unspecified; R18.8 Other ascites; K76.0 Fatty (change of) liver, not elsewhere classified; A04.72 Enterocolitis due to Clostridium difficile, not specified as recurrent; E83.42 Hypomagnesemia; I95.9 Hypotension, unspecified; R79.1 Abnormal coagulation profile; E86.0 Dehydration; I69.351 Hemiplegia and hemiparesis following cerebral infarction affecting right dominant side; D64.9 Anemia, unspecified
CPT/HCPCS: 36415; 36430; 71045-TC-FY; 74177-TC; 76830-TC; 80048; 80053; 80307; 81003; 82550; 82607; 82746; 83690; 83735; 84100; 84484; 84703; 85025; 85027; 85384; 85610; 85613; 85730; 85732; 86850; 86900; 86901; 87086; 87324; 87449; 88304-TC; 93005; 93010; 94010; 94760; 99285-25; J0131; J1644; J7030; P9017; Q9967

== ENCOUNTER 2018-11-04 02:16 | Emergency (ER) | payer OTHER | END 2018-11-04 10:50 | disposition home or self-care (01) | LOC: JER 02:16 ==

== ENCOUNTER 2018-11-04 17:13 | Inpatient (IN) | payer OTHER ==
[2018-11-04 18:11] VITALS: BMI 18.7
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
[2018-11-04] MEDS ORDERED: MENTHOL/PHENOL 1 EACH UD MM PRN (19:27)
[2018-11-04] MEDS ORDERED: MAGNESIUM HYDROX 2400MG/30ML ORAL SUSPENSION 30 ML CUP PO PRN (19:27)
[2018-11-04] MEDS ORDERED: MELATONIN 5 MG TABLETS PO PRN (19:27)
[2018-11-04] MEDS ORDERED: hydrOXYzine PAMOATE 25 MG CAPSULE (FP) PO PRN (19:27)
[2018-11-04] MEDS ORDERED: MAG HYDROX/AL HYDROX/SIMETH 30 ML UNIT-DOSE CUP PO PRN (19:27)
[2018-11-04] MEDS ORDERED: MAGNESIUM CITRATE 300 ML BOTTLE PO PRN (19:27)
[2018-11-04] MEDS ORDERED: ACETAMINOPHEN 325 MG TABLET (FP) PO PRN (19:27)
[2018-11-04] MEDS ORDERED: BISMUTH SUBSALICYLATE 524 MG/30 ML UD PO PRN (19:27)
[2018-11-04] MEDS ORDERED: LORazepam 1 MG TABLET PO PRN (19:27)
[2018-11-04] MEDS: ACETAMINOPHEN 325 MG TABLET (FP) PO PRN (20:35)
[2018-11-04] MEDS: LORazepam 2 MG TABLET PO SCH (22:44)
[2018-11-04] MEDS: THIAMINE HCL 100 MG TABLET (FP) PO SCH (22:44)
[2018-11-04] MEDS: METOPROLOL TARTRATE 25 MG TABLET (FP) PO SCH (22:44)
[2018-11-05] MEDS: ACETAMINOPHEN 325 MG TABLET (FP) PO PRN ×3 (05:57→22:26)
[2018-11-05] MEDS: LORazepam 2 MG TABLET PO SCH ×3 (05:57→16:51)
[2018-11-05 09:57] LABS: ALBUMIN 2.6 g/dl (3.4-5.0); ALK PHOS 79 U/L (45-117); ANION GAP 6 MMOL/L (8-16); BILIRUBIN,TOTAL 0.2 mg/dL (0.2-1); BLOOD UREA NITROGEN 4 mg/dL (7-18); CALCIUM 8.4 mg/dL (8.5-10.1); CHLORIDE 110 mmol/L (98-107); CO2 26 mmol/L (21-32); CREATININE 0.6 mg/dL (0.55-1.3); GLUCOSE,RANDOM 80 mg/dL (74-106); POTASSIUM 4.1 mmol/L (3.5-5.1); SGOT/AST 24 U/L (15-37); SGPT/ALT 19 U/L (13-61); SODIUM 142 mmol/L (136-145); TOT PROT 6.6 g/dl (6.4-8.2)
[2018-11-05] MEDS ORDERED: ENOXAPARIN SODIUM SQ SCH ×2 (10:00→10:36)
[2018-11-05] MEDS ORDERED: PATIENT'S OWN MEDICATION (NON-FORMULARY) (Warfarin Sodium [Coumadin] 8 MG) PO SCH (10:00)
[2018-11-05 10:17] LABS: INR 1.23 (0.83-1.09); PROTHROMBIN TIME (PATIENT) 14.5 SEC (9.7-13.0)
[2018-11-05 10:27] LABS: HEMATOCRIT 29.5 % (32.4-45.2); HEMOGLOBIN 9.6 GM/dL (10.7-15.3); MCH 32.4 pg (25.7-33.7); MCHC 32.7 g/dl (32.0-36.0); MEAN CELL VOLUME 99.3 fl (80-96); MEAN PLT VOLUME 7.8 fl (7.5-11.1); PLATELET COUNT 475 K/MM3 (134-434); RBC 2.97 M/mm3 (3.60-5.2); RDW 17.3 % (11.6-15.6); WHITE BLOOD COUNT 4.7 K/mm3 (4.0-10.0)
[2018-11-05] MEDS: PRENATAL VITAMINS W/ FOLIC ACID TABLET (FP) PO SCH (10:46)
[2018-11-05] MEDS: amLODIPine BESYLATE 2.5 MG TABLET (FP) PO SCH (10:47)
[2018-11-05] MEDS: METOPROLOL TARTRATE 25 MG TABLET (FP) PO SCH ×2 (10:48→22:24)
[2018-11-05] MEDS ORDERED: ENOXAPARIN SQ ONE (11:09)
[2018-11-05 13:48] LABS: URINE APPEARANCE CLEAR; URINE BILIRUBIN NEGATIVE (NEGATIVE); URINE COLOR YELLOW; URINE GLUCOSE (UA) NEGATIVE (NEGATIVE); URINE KETONE NEGATIVE (NEGATIVE); URINE LEUK ESTERASE NEGATIVE (NEGATIVE); URINE NITRITE NEGATIVE (NEGATIVE); URINE PROTEIN NEGATIVE (NEGATIVE); URINE UROBILINOGEN 0.2 mg/dL (0.2-1.0)
--- NOTE | 2018-11-05 15:28 | PN ---
[facility] CIWA - CIWA Score Nausea/Vomitin-No Nausea/No Vomiting Muscle Tremors: 2 Anxiety: 1-Mildly Anxious Agitation: 1-Slight > Activity Paroxysmal Sweats: 1-Minimal Palms Moist Orientation: 1-Uncertain about Date Tacttile Disturbances: 0-None Auditory Disturbances: 0-None Visual Disturbances: 0-None Headache: 0-None Present CIWA-Ar Total Score: 6 S Progress Note (SOAP) Subjective: patient is taking Coumadin and enoxaparin patient has two more doses enoxaparin sq begin coumadin today repeat inr Objective: 11/05/18 15:42 Vital Signs Temperature 97.4 F L 11/05/18 13:34 Pulse Rate 80 11/05/18 13:34 Respiratory Rate 20 11/05/18 13:34 Blood Pressure 124/96 11/05/18 13:34 O2 Sat by Pulse Oximetry (%) Laboratory Last Values WBC 4.7 K/mm3 (4.0-10.0) 11/05/18 07:00 RBC 2.97 M/mm3 (3.60-5.2) L 11/05/18 07:00 Hgb 9.6 GM/dL (10.7-15.3) L 11/05/18 07:00 Hct 29.5 % (32.4-45.2) L 11/05/18 07:00 MCV 99.3 fl (80-96) H 11/05/18 07:00 MCH 32.4 pg (25.7-33.7) 11/05/18 07:00 MCHC 32.7 g/dl (32.0-36.0) 11/05/18 07:00 RDW 17.3 % (11.6-15.6) H 11/05/18 07:00 Plt Count 475 K/MM3 (134-434) H 11/05/18 07:00 MPV 7.8 fl (7.5-11.1) D 11/05/18 07:00 PT with INR 14.50 SEC (9.7-13.0) H 11/05/18 07:00 INR 1.23 (0.83-1.09) H 11/05/18 07:00 Sodium 142 mmol/L (136-145) 11/05/18 07:00 Potassium 4.1 mmol/L (3.5-5.1) 11/05/18 07:00 Chloride 110 mmol/L (98-107) H 11/05/18 07:00 Carbon Dioxide 26 mmol/L (21-32) 11/05/18 07:00 Anion Gap 6 MMOL/L (8-16) L 11/05/18 07:00 BUN 4 mg/dL (7-18) L 11/05/18 07:00 Creatinine 0.6 mg/dL (0.55-1.3) 11/05/18 07:00 Creat Clearance w eGFR 106.70 (>60) 11/05/18 07:00 Random Glucose 80 mg/dL (74-106) 11/05/18 07:00 Calcium 8.4 mg/dL (8.5-10.1) L 11/05/18 07:00 Total Bilirubin 0.2 mg/dL (0.2-1) 11/05/18 07:00 AST 24 U/L (15-37) 11/05/18 07:00 ALT 19 U/L (13-61) 11/05/18 07:00 Alkaline Phosphatase 79 U/L (45-117) 11/05/18 07:00 Total Protein 6.6 g/dl (6.4-8.2) 11/05/18 07:00 Albumin 2.6 g/dl (3.4-5.0) L 11/05/18 07:00 Urine Color Yellow 11/04/18 00:00 Urine Appearance Clear 11/04/18 00:00 Urine pH 6.0 (5.0-8.0) 11/04/18 00:00 Ur Specific [place] 1.013 (1.010-1.035) 11/04/18 00:00 Urine Protein Negative (NEGATIVE) 11/04/18 00:00 Urine Glucose (UA) Negative (NEGATIVE) 11/04/18 00:00 Urine Ketones Negative (NEGATIVE) 11/04/18 00:00 Urine Blood Negative (NEGATIVE) 11/04/18 00:00 Urine Nitrite Negative (NEGATIVE) 11/04/18 00:00 Urine Bilirubin Negative (NEGATIVE) 11/04/18 00:00 Urine Urobilinogen 0.2 mg/dL (0.2-1.0) 11/04/18 00:00 Ur Leukocyte Esterase Negative (NEGATIVE) 11/04/18 00:00 lab noted Assessment: 11/05/18 15:42 withdrawal sx 11/05/18 15:43 inr 1.23 Plan: continue detox begin coumadin
[2018-11-05] MEDS: METHOCARBAMOL 500 MG TABLET PO PRN (16:52)
[2018-11-05] MEDS: WARFARIN NA 5 MG, WARFARIN NA 3 MG PO SCH (17:23)
--- NOTE | 2018-11-05 17:46 | PN ---
[facility] Progress Note Note: pt requesting seroquel for sleep- done
[2018-11-05] MEDS: THIAMINE HCL 100 MG TABLET (FP) PO SCH (22:23)
[2018-11-05] MEDS: LORazepam 1 MG TABLET PO SCH (22:23)
[2018-11-05] MEDS: QUEtiapine FUMARATE 100 MG TABLET (FP) PO SCH (22:24)
[2018-11-06] MEDS: LORazepam 1 MG TABLET PO SCH ×3 (05:38→17:41)
[2018-11-06] MEDS: ACETAMINOPHEN 325 MG TABLET (FP) PO PRN ×3 (05:38→17:44)
[2018-11-06] MEDS: METHOCARBAMOL 500 MG TABLET PO PRN ×2 (08:33→15:29)
[2018-11-06 10:30] LABS: INR 1.46 (0.83-1.09); PROTHROMBIN TIME (PATIENT) 17.3 SEC (9.7-13.0)
[2018-11-06] MEDS: amLODIPine BESYLATE 2.5 MG TABLET (FP) PO SCH (10:37)
[2018-11-06] MEDS: METOPROLOL TARTRATE 25 MG TABLET (FP) PO SCH ×2 (10:37→22:08)
[2018-11-06] MEDS: PRENATAL VITAMINS W/ FOLIC ACID TABLET (FP) PO SCH (10:37)
[2018-11-06] MEDS ORDERED: VANCOMYCIN 250 MG/5 ML ORAL SOLUTION PO SCH (11:15)
[2018-11-06] MEDS: LACTOBACILLUS ACIDOPHILUS 1 TABLET PO SCH (12:09)
--- NOTE | 2018-11-06 15:15 | PN ---
[facility] CIWA - CIWA Score Nausea/Vomitin-No Nausea/No Vomiting Muscle Tremors: 1-None Visible, but [place] Anxiety: 1-Mildly Anxious Agitation: 1-Slight > Activity Paroxysmal Sweats: 1-Minimal Palms Moist Orientation: 0-Oriented Tacttile Disturbances: 0-None Auditory Disturbances: 0-None Visual Disturbances: 0-None Headache: 0-None Present CIWA-Ar Total Score: 4 S Progress Note (SOAP) Subjective: feeling ok today continue ensure for nutrition supplement discuss risks of coumadin and signs of bleeding Objective: 11/06/18 15:22 Vital Signs Temperature 96.7 F L 11/06/18 13:27 Pulse Rate 79 11/06/18 13:27 Respiratory Rate 18 11/06/18 13:27 Blood Pressure 120/82 11/06/18 13:27 O2 Sat by Pulse Oximetry (%) Laboratory Last Values WBC 4.7 K/mm3 (4.0-10.0) 11/05/18 07:00 RBC 2.97 M/mm3 (3.60-5.2) L 11/05/18 07:00 Hgb 9.6 GM/dL (10.7-15.3) L 11/05/18 07:00 Hct 29.5 % (32.4-45.2) L 11/05/18 07:00 MCV 99.3 fl (80-96) H 11/05/18 07:00 MCH 32.4 pg (25.7-33.7) 11/05/18 07:00 MCHC 32.7 g/dl (32.0-36.0) 11/05/18 07:00 RDW 17.3 % (11.6-15.6) H 11/05/18 07:00 Plt Count 475 K/MM3 (134-434) H 11/05/18 07:00 MPV 7.8 fl (7.5-11.1) D 11/05/18 07:00 PT with INR 17.30 SEC (9.7-13.0) H 11/06/18 08:10 INR 1.46 (0.83-1.09) H 11/06/18 08:10 Sodium 142 mmol/L (136-145) 11/05/18 07:00 Potassium 4.1 mmol/L (3.5-5.1) 11/05/18 07:00 Chloride 110 mmol/L (98-107) H 11/05/18 07:00 Carbon Dioxide 26 mmol/L (21-32) 11/05/18 07:00 Anion Gap 6 MMOL/L (8-16) L 11/05/18 07:00 BUN 4 mg/dL (7-18) L 11/05/18 07:00 Creatinine 0.6 mg/dL (0.55-1.3) 11/05/18 07:00 Creat Clearance w eGFR 106.70 (>60) 11/05/18 07:00 Random Glucose 80 mg/dL (74-106) 11/05/18 07:00 Calcium 8.4 mg/dL (8.5-10.1) L 11/05/18 07:00 Total Bilirubin 0.2 mg/dL (0.2-1) 11/05/18 07:00 AST 24 U/L (15-37) 11/05/18 07:00 ALT 19 U/L (13-61) 11/05/18 07:00 Alkaline Phosphatase 79 U/L (45-117) 11/05/18 07:00 Total Protein 6.6 g/dl (6.4-8.2) 11/05/18 07:00 Albumin 2.6 g/dl (3.4-5.0) L 11/05/18 07:00 Urine Color Yellow 11/04/18 00:00 Urine Appearance Clear 11/04/18 00:00 Urine pH 6.0 (5.0-8.0) 11/04/18 00:00 Ur Specific [place] 1.013 (1.010-1.035) 11/04/18 00:00 Urine Protein Negative (NEGATIVE) 11/04/18 00:00 Urine Glucose (UA) Negative (NEGATIVE) 11/04/18 00:00 Urine Ketones Negative (NEGATIVE) 11/04/18 00:00 Urine Blood Negative (NEGATIVE) 11/04/18 00:00 Urine Nitrite Negative (NEGATIVE) 11/04/18 00:00 Urine Bilirubin Negative (NEGATIVE) 11/04/18 00:00 Urine Urobilinogen 0.2 mg/dL (0.2-1.0) 11/04/18 00:00 Ur Leukocyte Esterase Negative (NEGATIVE) 11/04/18 00:00 lab noted Assessment: 11/06/18 15:23 withdrawal sx Plan: continue detox
[2018-11-06] MEDS: VANCOMYCIN 250 MG/5 ML ORAL SOLUTION PO SCH ×2 (17:41→23:43)
[2018-11-06] MEDS: WARFARIN NA 5 MG, WARFARIN NA 3 MG PO SCH (17:41)
[2018-11-06] MEDS: QUEtiapine FUMARATE 100 MG TABLET (FP) PO SCH (22:08)
[2018-11-06] MEDS: THIAMINE HCL 100 MG TABLET (FP) PO SCH (22:08)
[2018-11-06] MEDS: LORazepam 0.5 MG TABLET PO SCH (22:08)
[2018-11-06] MEDS ORDERED: LORazepam 0.5 MG TABLET PO PRN (23:00)
[2018-11-07] MEDS: VANCOMYCIN 250 MG/5 ML ORAL SOLUTION PO SCH ×2 (05:24→11:08)
[2018-11-07] MEDS: LORazepam 0.5 MG TABLET PO SCH ×2 (05:24→10:25)
[2018-11-07 06:14] VITALS: PULSE 75
[2018-11-07 09:21] VITALS: BP 110/78; TEMP 98.7
[2018-11-07] MEDS: LACTOBACILLUS ACIDOPHILUS 1 TABLET PO SCH (10:24)
[2018-11-07] MEDS: amLODIPine BESYLATE 2.5 MG TABLET (FP) PO SCH (10:25)
[2018-11-07] MEDS: METOPROLOL TARTRATE 25 MG TABLET (FP) PO SCH (10:26)
[2018-11-07] MEDS: PRENATAL VITAMINS W/ FOLIC ACID TABLET (FP) PO SCH (10:30)
--- NOTE | 2018-11-07 18:26 | DS ---
[facility] Detox Discharge Summary Admission Date: 11/04/18 Discharge Date: 11/07/18 - History Present History: Alcohol Dependence Additional Comments: PATIENT INITIALLY INTENT ON GOING ON TO [facility] ([address], [place]) FOR AFTERCARE. HOWEVER, PATIENT INSTEAD ELECTED TO LEAVE DETOX UNIT AND GO HOME AT THIS TIME. PATIENT ADVISED TO CONSIDER REHAB ADMISSION FOR A LATER DATE AND TO ALSO CONSIDER LOCAL 12-STEP / AA OUTPATIENT SUPPORT GROUPS FOR AFTERCARE. PATIENT DECLINED OFFER OF MEDICATION PRESCRIPTION FOR HOME MEDICATION AT TIME OF DISCHARGE FROM DETOX, NOTING THAT HE CURRENTLY HAS ADEQUATE SUPPLIES OF ALL PRESCRIBED HOME MEDICATIONS WITH HER BELONGINGS THAT SHE BROUGHT WITH HER AT TIME OF ADMISSION TO DETOX. ALLS HOME MEDICATIONS THAT PATIENT WAS RECEIVING WHILE ADMITTED FOR DETOX, INCLUDING VANCOMYIN (FOR C-DIFF INFECTION AND COUMADIN, RETURNED TO PATIENT AT TIME OF DISCHARGE. PATIENT ADVISED TO COMPLETE FULL COURSE OF VANCOMYCIN AND TO FOLLOW-UP WITH [facility] SPECIALIST SOON POSSIBLE AFTER DISCHARGE FROM DETOX UNIT FOR GENERAL MEDICAL ASSESSMENT NAD FOR HISTORY OF OUTPATIENT PRESCRIPTION OF COUMADIN AND FOR HISTORY OF C-DIFF INFECTION AND FOR ANEMIA NOTED WHILE ADMITTED FOR DETOX. PATIENT VERBALIZED UNDERSTANDING OF ALL RECOMMENDATIONS. COPIES OF RESULTS OF ALL LABS DRAWN WHILE ADMITTED FOR DETOX GIVEN TO PATIENT AT TIME OF DISCHARGE FROM DETOX UNIT. PATIENT WAS DISCHARGED FROM DETOX UNIT IN STABLE MEDICAL CONDITION. Pertinent Past History: History of Anemia, History Of Fatty Liver, Weight Loss, History of Laparoscopic Appendectomy, HTN, History of Bronchitis, History Of Heart Murmur, History of CVA, G.E.R.D. - Physical Exam Results Vital Signs: Vital Signs Temperature 98.7 F 11/07/18 09:20 Pulse Rate 75 11/07/18 09:20 Respiratory Rate 18 11/07/18 09:20 Blood Pressure 110/78 11/07/18 09:20 O2 Sat by Pulse Oximetry (%) Pertinent Admission Physical Exam Findings: WITHDRAWAL SYMPTOMS. Laboratory Tests 11/04/18 11/05/18 11/05/18 00:00 07:00 07:00 WBC 4.7 RBC 2.97 L Hgb 9.6 L Hct 29.5 L MCV 99.3 H MCH 32.4 MCHC 32.7 RDW 17.3 H Plt Count 475 H MPV 7.8 D PT with INR 14.50 H INR 1.23 H Sodium Potassium Chloride Carbon Dioxide Anion Gap BUN Creatinine Creat Clearance w eGFR Random Glucose Calcium Total Bilirubin AST ALT Alkaline Phosphatase Total Protein Albumin Urine Color Yellow Urine Appearance Clear Urine pH 6.0 Ur Specific [place] 1.013 Urine Protein Negative Urine Glucose (UA) Negative Urine Ketones Negative Urine Blood Negative Urine Nitrite Negative Urine Bilirubin Negative Urine Urobilinogen 0.2 Ur Leukocyte Esterase Negative 11/05/18 11/06/18 07:00 08:10 WBC RBC Hgb Hct MCV MCH MCHC RDW Plt Count MPV PT with INR 17.30 H INR 1.46 H Sodium 142 Potassium 4.1 Chloride 110 H Carbon Dioxide 26 Anion Gap 6 L BUN 4 L Creatinine 0.6 Creat Clearance w eGFR 106.70 Random Glucose 80 Calcium 8.4 L Total Bilirubin 0.2 AST 24 ALT 19 Alkaline Phosphatase 79 Total Protein 6.6 Albumin 2.6 L Urine Color Urine Appearance Urine pH Ur Specific [place] Urine Protein Urine Glucose (UA) Urine Ketones Urine Blood Urine Nitrite Urine Bilirubin Urine Urobilinogen Ur Leukocyte Esterase LABS NOTED. - Treatment Hospital Course: Detox Protocol Followed, Detoxed Safely, Responded well, Discharged Condition Good Patient has Accepted a Rehab Referral to: PT. DECLINED; ADVISED TO CONSIDER LOCAL 12-STEP/AA OUTPATIENT SUPPROT GROUP - Medication Discharge Medications: Ambulatory Orders Amlodipine Besylate [Norvasc -] 2.5 mg PO DAILY #30 tablet 11/04/18 Enoxaparin Sodium 0.8 ml SCJ DAILY 11/04/18 Metoprolol Tartrate [Lopressor -] 12.5 mg PO BID #60 tablet 11/04/18 Omeprazole 20 mg PO DAILY 11/04/18 Thiamine HCl [Vitamin B-1] 100 mg PO DAILY #30 tablet 11/04/18 Warfarin Sodium [Coumadin] 8 mg PO DAILY #60 tablet 11/04/18 Enoxaparin Sodium [Lovenox] 80 mg SQ DAILY 11/05/18 Lactobacillus Acidophilus [Bacid -] 1 each PO DAILY 11/06/18 Vancomycin HCl [Vancocin HCl] 250 mg PO Q6H MDD 48 11/06/18 - Diagnosis (1) Alcohol dependence with uncomplicated withdrawal Status: Acute (2) S/P laparoscopic appendectomy Status: Acute (3) Weight loss Status: Acute (4) Anemia Status: Chronic Qualifiers: Anemia type: unspecified type (5) Fatty liver Status: Chronic (6) Hypertension Status: Chronic Qualifiers: Hypertension type: essential hypertension Qualified Code(s): I10 - Essential (primary) hypertension - AMA Did Patient Leave Against Medical Advice: No
== END 2018-11-07 11:12 | disposition home or self-care (01) | DRG 775 ==
LOC: YASAS 17:13 → Y3N 19:58
PROVIDERS: ADMIT Surgery; ATTEND Surgery
PROC: HZ2ZZZZ Detoxification Services for Substance Abuse Treatment (ICD-10-PCS; principal; 2018-11-04)
DX: F10.230 Alcohol dependence with withdrawal, uncomplicated (principal); D64.9 Anemia, unspecified; I10 Essential (primary) hypertension; R63.4 Abnormal weight loss; K76.0 Fatty (change of) liver, not elsewhere classified; J45.909 Unspecified asthma, uncomplicated; R01.1 Cardiac murmur, unspecified; K21.9 Gastro-esophageal reflux disease without esophagitis; Z86.73 Personal history of transient ischemic attack (TIA), and cerebral infarction without residual deficits; Z91.030 Bee allergy status; Z79.01 Long term (current) use of anticoagulants; Z91.5 Personal history of self-harm
CPT/HCPCS: 36415; 74176-TC; 80053; 80307; 81003; 82272; 83690; 85025; 85027; 85610; 85730; 87040; 87086; 99281-25; J0131; J7030

== ENCOUNTER 2018-11-21 07:57 | Inpatient (IN) | payer OTHER ==
--- NOTE | 2018-11-21 09:05 | PDOC ---
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 Hospitalization was complicated by development of symptomatic C diff infection. Patient was discharged on Lovenox and Coumadin per hematology parameters, PO Vancomycin and Bacid, with outpatient followup referrals to surgery, hematology, GI, and primary care. Patient has numerous complaints, namely worsening diarrhea-- about 6-7 episodes since last night. She has noticed blood and mucus in her stool. She reports compliance with her medicines. Patient also endorses subjective fever, chills, nausea, and three or four episodes of vomiting yesterday. She reports dysuria as the urine comes out of her urethra. Patient has concern over her surgical scar in that it drained serous fluid and has a suture poking out which she is not sure will dissolve. Patient endorses back pain which she says is worse than her baseline. No saddle anesthesia or urinary incontinence (other than stress incontinence at baseline) but does report stool incontinence with her profuse diarrhea. No history of IV drug use. Patient also endorses chest pain and shortness of breath which she says is at baseline. Past History - Past Medical History Allergies/Adverse Reactions: Allergies Allergy/AdvReac Type Severity Reaction Status Date / Time beeswax Allergy Severe Difficulty Verified 11/21/18 08:14 Breathing coconut oil Allergy Severe Itching Verified 11/21/18 08:14 No Known Drug Allergies Allergy Verified 11/21/18 08:14 Home Medications: Ambulatory Orders Amlodipine Besylate [Norvasc -] 2.5 mg PO DAILY #30 tablet 11/04/18 Metoprolol Tartrate [Lopressor -] 12.5 mg PO BID #60 tablet 11/04/18 Omeprazole 20 mg PO DAILY 11/04/18 Thiamine HCl [Vitamin B-1] 100 mg PO DAILY #30 tablet 11/04/18 Warfarin Sodium [Coumadin] 8 mg PO DAILY #60 tablet 11/04/18 Enoxaparin Sodium [Lovenox] 80 mg SQ DAILY 11/05/18 Lactobacillus Acidophilus [Bacid -] 1 each PO DAILY 11/06/18 Vancomycin HCl [Vancocin HCl] 250 mg PO Q6H MDD 48 11/06/18 Anemia: Yes (no med) Asthma: No (Bronchitis) Cancer: No Cardiac Disorders: Yes (Heart Murmur) CVA: Yes (2003 RESOLVED WITHOUT ANY COMPLICATIONS) COPD: No CHF: No DVT: No Dementia: No Diabetes: No GI Disorders: Yes (GERD) Disorders: No HTN: Yes Hypercholesterolemia: No Kidney Stones: No Liver Disease: Yes (FATTY LIVER) Seizures: No Thyroid Disease: No - Surgical History Abdominal Surgery: Yes (hernia repair) Appendectomy: No Cardiac Surgery: No Cholecystectomy: No Lung Surgery: No Neurologic Surgery: No Orthopedic Surgery: Yes (right knee, 07/29/2015 [facility]) - Reproductive History PID: No - Immunization History Immunization Up to Date: Yes - Suicide/Smoking/Psychosocial Hx Smoking Status: No Smoking History: Never smoked Have you smoked in the past 12 months: No Number of Cigarettes Smoked Daily: 0 Cigars Per Day: 0 Information on smoking cessation initiated: No 'Breaking Loose' booklet given: 05/25/18 Hx Alcohol Use: Yes Drug/Substance Use Hx: Yes Substance Use Type: Alcohol, Cocaine, Marijuana Hx Substance Use Treatment: Yes ([facility] May 2018) Review of Systems - Review of Systems Comments:: Constitutional: +fever, +chills HEENT: no throat pain, no dysphagia Cardiovascular: +chest pain, no palpitations Respiratory: no cough, +shortness of breath Gastrointestinal: +abdominal pain, +nausea Genitourinary: +dysuria, no frequency Musculoskeletal: no myalgia, no arthralgia Skin: no rash, no itching Neurologic: no headache, no weakness *Physical Exam - Vital Signs Last Vital Signs Temp Pulse Resp BP Pulse Ox 98.1 F 88 18 123/89 98 11/21/18 08:14 11/21/18 08:14 11/21/18 08:14 11/21/18 08:14 11/21/18 08:14 - Physical Exam Comments: General: Awake, alert, and fully oriented, in no acute distress Head: No signs of trauma Eyes: EOMI, sclera anicteric ENT: Moist mucus membranes Neck: Normal ROM, supple Lungs: Lungs clear, Normal breath sounds Cardio: Regular rhythm, S1 and S2 present Abdomen: Soft, nontender. Well-healing abdominal laparoscopic scar, with 0.5cm opening with scant serosanguinous fluid, +guarding, no rebound, no masses Extremities: Normal range of motion, Distal pulses present SKIN: Warm, Dry, normal turgor Neurologic: Cranial nerves II through XII grossly intact. Normal speech Rectal: The skin is without erythema or induration. External hemorrhoids present without active bleeding. Sphincter tone normal. 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 DDX including but not limited to C. diff colitis recurrence, surgical site abscess, gastritis, gastroenteritis, ACS EKG: rate 76, QTc 519, Sinus rhythm with occasional PVCs 11/21/18 12:43 CBC WBC 5.9 K/mm3 (4.0-10.0) 11/21/18 10:00 RBC 3.52 M/mm3 (3.60-5.2) L 11/21/18 10:00 Hgb 12.0 GM/dL (10.7-15.3) 11/21/18 10:00 Hct 35.7 % (32.4-45.2) D 11/21/18 10:00 MCV 101.4 fl (80-96) H 11/21/18 10:00 MCH 34.0 pg (25.7-33.7) H 11/21/18 10:00 MCHC 33.6 g/dl (32.0-36.0) 11/21/18 10:00 RDW 18.1 % (11.6-15.6) H 11/21/18 10:00 Plt Count 254 K/MM3 (134-434) D 11/21/18 10:00 MPV 8.4 fl (7.5-11.1) 11/21/18 10:00 Absolute Neuts (auto) 2.7 K/mm3 (1.5-8.0) 11/21/18 10:00 Neutrophils % 44.9 % (42.8-82.8) 11/21/18 10:00 Lymphocytes % 30.7 % (8-40) D 11/21/18 10:00 Monocytes % 6.7 % (3.8-10.2) 11/21/18 10:00 Eosinophils % 16.4 % (0-4.5) H D 11/21/18 10:00 Basophils % 1.3 % (0-2.0) 11/21/18 10:00 Nucleated RBC % 0 % (0-0) 11/21/18 10:00 No anemia or leukocytosis CMP Sodium 137 mmol/L (136-145) 11/21/18 10:00 Potassium 4.2 mmol/L (3.5-5.1) 11/21/18 10:00 Chloride 101 mmol/L (98-107) 11/21/18 10:00 Carbon Dioxide 25 mmol/L (21-32) 11/21/18 10:00 Anion Gap 11 MMOL/L (8-16) 11/21/18 10:00 BUN 5 mg/dL (7-18) L 11/21/18 10:00 Creatinine 0.7 mg/dL (0.55-1.3) 11/21/18 10:00 Creat Clearance w eGFR 89.31 (>60) 11/21/18 10:00 Random Glucose 66 mg/dL (74-106) L 11/21/18 10:00 Calcium 8.8 mg/dL (8.5-10.1) 11/21/18 10:00 Total Bilirubin 0.4 mg/dL (0.2-1) 11/21/18 10:00 AST 47 U/L (15-37) H 11/21/18 10:00 ALT 22 U/L (13-61) 11/21/18 10:00 Alkaline Phosphatase 122 U/L (45-117) H 11/21/18 10:00 Troponin I < 0.02 ng/ml (0.00-0.05) 11/21/18 10:00 Total Protein 9.3 g/dl (6.4-8.2) H 11/21/18 10:00 Albumin 3.6 g/dl (3.4-5.0) 11/21/18 10:00 Tpn undetectable Electrolytes unremarkable CTAP: "HISTORY PROVIDED: Abdominal pain. Sequential axial images were obtained from the domes of the diaphragms through the symphysis pubis following the administration of intravenous contrast material. The lung bases are clear. The liver, spleen, pancreas, adrenal glands and kidneys demonstrate no significant abnormalities. A gallstone is identified within the gallbladder. There is no evidence of intra-abdominal or retroperitoneal lymphadenopathy or fluid collections. There no evidence of pneumoperitoneum, bowel obstruction or intra- abdominal abscess. The there is diffuse colonic thickening with no formed stool present. This is suspicious for a diffuse colitis that appears to involve the rectum as well. Clinical correlation is advised. Colonoscopic follow-up is also recommended. Examination of the pelvis demonstrates no evidence of pelvic masses , fluid collections or lymphadenopathy. There is no evidence of acute bony abnormalities. IMPRESSION: Findings suspicious for diffuse colitis. Clinical correlation and follow-up colonoscopy recommended. Please see above discussion. " Discussed case with Dr. Medeiros who recommended admission especially given patient's likely non-adherence to medications. He recommends collection of stool specimen and administration of po vancomycin. 11/21/18 15:[address] Perera who accepted patient for admission Per request: Utox added. Consult to surgery placed. 11/21/18 15:49 *DC/Admit/Observation/Transfer Diagnosis at time of Disposition: C. difficile diarrhea UTI (urinary tract infection) Qualifiers: Urinary tract infection type: site unspecified Hematuria presence: without hematuria Qualified Code(s): N39.0 - Urinary tract infection, site not specified - Discharge Dispostion Condition at time of disposition: Guarded Decision to Admit order: Yes - Referrals - Patient Instructions - Post Discharge Activity
--- NOTE | 2018-11-21 09:37 | PDOC ---
Attending Attestation - Resident Resident Name: Estrella Humphreys - ED Attending Attestation I have performed the following: I have examined & evaluated the patient, The case was reviewed & discussed with the resident, I agree w/resident's findings & plan - HPI HPI: 11/21/18 10:36 48 YOF with PMH of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), HTN, continuous polysubstance abuse (cocaine marijuana), duodenal tubular adenoma, hemorrhoids, splenic infarct on lovenox, poor compliance with meds, recent admission in 2018 for C diff colitis currently on bacid and PO vancomycin, Presenting with lower abdominal pain x 4 days, with watery stools and diarrhea. Yesterday she had 6 episodes of watery stools, also noted blood and mucus. + subjective fevers and chills. She notes she is unsure if blood is coming from urine, vagina or rectum. Post menopausal currently. Denies trauma or triggers. She is s/p appendectomy in early 10/2018, where course was complicated by C diff colitis. - Physicial Exam PE: 11/21/18 10:36 Agree with the resident's HPI and PE as documented in the electronic medical record. NAD, well appearing, PERRL, EOMI, MMM, nl conjunctiva, anicteric; neck supple. lungs clear, RRR, abdomen soft , umbilical TTP, +voluntary guarding, lower umbilical surgical scar present, palp firmness in soft tissue left of umbilicus. no palp hernia. no rebound. No CVAT. MA x4, no focal neuro deficits. No peripheral edema. normal color for ethnicity , WWP. rectal exam with resident. +external nonthrombosed nonbleeding hemorrhoids and skin tags, no gross blood or melena or tarry stools. - Medical Decision Making 11/21/18 10:37 See HPI for details Vital signs reviewed, wnl. DDx abdominal pain: Renal colic, biliary colic, metabolic/electrolyte derangements. GERD, PUD, esophageal spasm, pancreatitis, hepatitis, constipation , persistent C diff, acute colitis, toxic megacolon, gastroenteritis, cholecystitis, UTI, pyelonephritis, ileus, SBO, medication side effect, hernia, post appy abscess, perf viscus, diverticulitis Prior notes reviewed, including admissions, discharges and consultations. laboratory results and imaging reviewed, basic labs and lytes wnl, notable for no anemia. wbc ct and cr normal, reassuring. UA_initially hemolyzed neg preg test. guaiac neg, no gross blood with only external nonthrombosed nonbleeding ED course - analgesia - requesting food, but NPO until CT imaging - CT a/p to eval for abscess, infection, perf vs post op complication and significant pain results: diffuse colitis, otherwise unremarkable, no perf or abscess. - able to vikas PO - already on PO vancomycin. will continue - UA +UTI, will give short course keflex with prior history of cultures +Ecoli, and symptomatic. f/u urine cultures, for now, keflex x 5d course and symptomatic treatment - stool studies ordered - observation for colitis, poor compliance with meds, serial exams and hydration admit to hospitalist service. GI consulted, medical management for acute colitis. 11/21/18 15:36 11/21/18 15:38 Heart Score/ECG Review #1 ECG reviewed & interpreted by me at: 11:30 General ECG Interpretation: Sinus Rhythm, Normal Rate Compared to previous ECG there are: No significant change 11/21/18 12:17 NSR at 76 bpm, nonspecific T wave flattening in I, AVL, and V2, borderline prolonged QT inteval.
[2018-11-21] MEDS ORDERED: SODIUM CHLORIDE 1,000 ML IV STA (09:49)
[2018-11-21] MEDS ORDERED: ACETAMINOPHEN 1000 MG/100 ML VIAL (NON FORMULARY) IVPB ONE (09:49)
[2018-11-21 11:06] LABS: BASO % 1.3 % (0-2.0); EOS % 16.4 % (0-4.5); HEMATOCRIT 35.7 % (32.4-45.2); LYMPH % 30.7 % (8-40); MCHC 33.6 g/dl (32.0-36.0); MEAN CELL VOLUME 101.4 fl (80-96); MEAN PLT VOLUME 8.4 fl (7.5-11.1); MONO % 6.7 % (3.8-10.2); NEUT % 44.9 % (42.8-82.8); PLATELET COUNT 254 K/MM3 (134-434); RBC 3.52 M/mm3 (3.60-5.2); RDW 18.1 % (11.6-15.6); WHITE BLOOD COUNT 5.9 K/mm3 (4.0-10.0)
[2018-11-21 11:11] LABS: URINE APPEARANCE CLOUDY; URINE BILIRUBIN NEGATIVE (NEGATIVE); URINE COLOR YELLOW; URINE GLUCOSE (UA) NEGATIVE (NEGATIVE); URINE KETONE NEGATIVE (NEGATIVE); URINE LEUK ESTERASE 2+ (NEGATIVE); URINE NITRITE NEGATIVE (NEGATIVE); URINE PROTEIN NEGATIVE (NEGATIVE); URINE UROBILINOGEN 0.2 mg/dL (0.2-1.0)
[2018-11-21 11:13] LABS: HCG,QUALITATIVE URINE Negative
[2018-11-21 11:52] LABS: URINE RBC 2.8 /hpf (0-4); URINE WBC 37.2 /hpf (0-5)
[2018-11-21 11:53] LABS: EPI CELLS 4.1 /HPF (0-5/HPF); URINE BACTERIA 397.9 /hpf (NEGATIVE); URINE CASTS 7.51 /lpf (0-8)
[2018-11-21 13:24] LABS: ALBUMIN 3.6 g/dl (3.4-5.0); ALK PHOS 122 U/L (45-117); ANION GAP 11 MMOL/L (8-16); BILIRUBIN,TOTAL 0.4 mg/dL (0.2-1); BLOOD UREA NITROGEN 5 mg/dL (7-18); CALCIUM 8.8 mg/dL (8.5-10.1); CHLORIDE 101 mmol/L (98-107); CO2 25 mmol/L (21-32); CREATININE 0.7 mg/dL (0.55-1.3); GLUCOSE,RANDOM 66 mg/dL (74-106); POTASSIUM 4.2 mmol/L (3.5-5.1); SGOT/AST 47 U/L (15-37); SGPT/ALT 22 U/L (13-61); SODIUM 137 mmol/L (136-145); TOT PROT 9.3 g/dl (6.4-8.2)
[2018-11-21 13:34] LABS: INR 1.12 (0.83-1.09); PROTHROMBIN TIME (PATIENT) 13.2 SEC (9.7-13.0)
[2018-11-21 13:36] LABS: ACTIVATED PTT 38.7 SECONDS (25.2-36.5)
[2018-11-21] MEDS ORDERED: CEPHALEXIN MONOHYDRATE 500 MG CAPSULE (UD) PO ONE (14:25)
[2018-11-21] MEDS ORDERED: CEPHALEXIN MONOHYDRATE 500 MG CAPSULE (UD) ONE (15:28)
[2018-11-21] MEDS ORDERED: VANCOMYCIN 250 MG/5 ML ORAL SOLUTION PO ONE (15:50)
--- NOTE | 2018-11-21 16:58 | HP ---
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 Also reports some serous discharge from laparoscopic site and dysuria. No fevers, chills. Had tray in front of her in the ED when seen, reported was starving and wanted to eat. No vomitting/diarrhea, noted in the ED, FOBT neg. Reports not taking her lovenox last few days, also not taking her coumadin and vancomycin as 'was not given scripts' Last use cocaine/marihuana yesterday, with beer. ER course was notable for: (1) CT A/P with diffuse colonic thickening, (2) IV cephalaxin (3) Oral vancomycin Recent Travel: Denies PAST MEDICAL HISTORY: HTN, polysubstance abuse (cocaine, marijuana), CVA 2002 ( with residual R sided weakness), duodenal tubular adenoma, splenic infarct 2018 (non compliant with AC), recent lap appendectomy 10/23/2018, course complicated by C difficile Diarrhea discharge on lovenox/coumadin bridging and oral vancomycin, non compliant PAST SURGICAL HISTORY: as above,right knee replacement Social History: Smoking: yes, vague in description Alcohol: "only drinks beer", unable to quantify Drugs: cocaine, marihuana, denies IVDU Family History: Allergies beeswax Allergy (Severe, Verified 11/21/18 08:14) Difficulty Breathing hives, tongue swelling coconut oil Allergy (Severe, Verified 11/21/18 08:14) Itching No Known Drug Allergies Allergy (Verified 11/21/18 08:14) HOME MEDICATIONS: Home Medications Medication Instructions Recorded Amlodipine Besylate [Norvasc -] 2.5 mg PO DAILY #30 tablet 11/04/18 Metoprolol Tartrate [Lopressor -] 12.5 mg PO BID #60 tablet 11/04/18 Omeprazole 20 mg PO DAILY 11/04/18 Thiamine HCl [Vitamin B-1] 100 mg PO DAILY #30 tablet 11/04/18 Warfarin Sodium [Coumadin] 8 mg PO DAILY #60 tablet 11/04/18 Enoxaparin Sodium [Lovenox] 80 mg SQ DAILY 11/05/18 Lactobacillus Acidophilus [Bacid -] 1 each PO DAILY 11/06/18 Vancomycin HCl [Vancocin HCl] 250 mg PO Q6H MDD 48 11/06/18 REVIEW OF SYSTEMS 12 point ROS done, per HPI PHYSICAL EXAMINATION Vital Signs - 24 hr 11/21/18 08:14 Temperature 98.1 F Pulse Rate 88 Respiratory 18 Rate Blood Pressure 123/89 O2 Sat by Pulse 98 Oximetry (%) GENERAL: Awake, alert, and fully oriented, in no acute distress. HEAD: Normal with no signs of trauma. EYES: Pupils equal, round and reactive to light, extraocular movements intact, sclera anicteric, conjunctiva clear. No lid lag. EARS, NOSE, THROAT: Ears normal, nares patent, oropharynx clear without exudates. Moist mucous membranes. NECK: Normal range of motion, supple , no JVD LUNGS: Breath sounds equal, clear to auscultation bilaterally. No wheezes, and no crackles. No accessory muscle use. HEART: Regular rate and rhythm, normal S1 and S2 ABDOMEN: Soft, distended, minimal serous drainage from laparoscopic site, NT throughout on exam, positive bowel sounds, no voluntary or involuntary guarding or rigidity MUSCULOSKELETAL: Normal range of motion at all joints. No bony deformities or tenderness. No CVA tenderness. UPPER EXTREMITIES: 2+ pulses, warm, well-perfused. No cyanosis. No clubbing. No peripheral edema. LOWER EXTREMITIES: 2+ pulses, warm, well-perfused. No calf tenderness. No peripheral edema. NEUROLOGICAL: AAOX3 facial symmetry , moves all extremities freely, gait no observed PSYCHIATRIC: Cooperative. Good eye contact. Appropriate mood and affect. SKIN: Warm, dry, normal turgor, no rashes or lesions noted, normal capillary refill. Laboratory Results - last 24 hr 04/26/19 04/26/19 04/26/19 09:57 10:00 10:00 WBC 5.9 RBC 3.52 L Hgb 12.0 Hct 35.7 D MCV 101.4 H MCH 34.0 H MCHC 33.6 RDW 18.1 H Plt Count 254 D MPV 8.4 Absolute Neuts (auto) 2.7 Neutrophils % 44.9 Lymphocytes % 30.7 D Monocytes % 6.7 Eosinophils % 16.4 H D Basophils % 1.3 Nucleated RBC % 0 PT with INR INR PTT (Actin FS) Sodium 137 Potassium 4.2 Chloride 101 Carbon Dioxide 25 Anion Gap 11 BUN 5 L Creatinine 0.7 Creat Clearance w eGFR 89.31 Random Glucose 66 L Calcium 8.8 Total Bilirubin 0.4 AST 47 H ALT 22 Alkaline Phosphatase 122 H Troponin I < 0.02 Total Protein 9.3 H Albumin 3.6 Urine Color Urine Appearance Urine pH Ur Specific [place] Urine Protein Urine Glucose (UA) Urine Ketones Urine Blood Urine Nitrite Urine Bilirubin Urine Urobilinogen Ur Leukocyte Esterase Urine WBC (Auto) Urine RBC (Auto) Urine Casts (Auto) U Pathogenic Cast Auto U Epithel Cells (Auto) U Sm Round Cell (Auto) Urine Crystals (Auto) Urine Bacteria (Auto) Urine Yeast (Auto) Urine HCG, Qual Stool Occult Blood Negative Blood Type Antibody Screen 11/21/18 11/21/18 11/21/18 10:57 10:57 13:01 WBC RBC Hgb Hct MCV MCH MCHC RDW Plt Count MPV Absolute Neuts (auto) Neutrophils % Lymphocytes % Monocytes % Eosinophils % Basophils % Nucleated RBC % PT with INR INR PTT (Actin FS) Cancelled Sodium Potassium Chloride Carbon Dioxide Anion Gap BUN Creatinine Creat Clearance w eGFR Random Glucose Calcium Total Bilirubin AST ALT Alkaline Phosphatase Troponin I Total Protein Albumin Urine Color Yellow Cancelled Urine Appearance Cloudy Cancelled Urine pH 6.0 Cancelled Ur Specific [place] 1.008 L Cancelled Urine Protein Negative Cancelled Urine Glucose (UA) Negative Cancelled Urine Ketones Negative Cancelled Urine Blood Negative Cancelled Urine Nitrite Negative Cancelled Urine Bilirubin Negative Cancelled Urine Urobilinogen 0.2 Cancelled Ur Leukocyte Esterase 2+ H Cancelled Urine WBC (Auto) 37.2 Cancelled Urine RBC (Auto) 2.8 Cancelled Urine Casts (Auto) 7.51 Cancelled U Pathogenic Cast Auto Cancelled U Epithel Cells (Auto) 4.1 Cancelled U Sm Round Cell (Auto) Cancelled Urine Crystals (Auto) Cancelled Urine Bacteria (Auto) 397.9 Cancelled Urine Yeast (Auto) Cancelled Urine HCG, Qual Negative Stool Occult Blood Blood Type Antibody Screen 11/21/18 11/21/18 13:01 13:01 WBC RBC Hgb Hct MCV MCH MCHC RDW Plt Count MPV Absolute Neuts (auto) Neutrophils % Lymphocytes % Monocytes % Eosinophils % Basophils % Nucleated RBC % PT with INR 13.20 H INR 1.12 H PTT (Actin FS) 38.7 H Sodium Potassium Chloride Carbon Dioxide Anion Gap BUN Creatinine Creat Clearance w eGFR Random Glucose Calcium Total Bilirubin AST ALT Alkaline Phosphatase Troponin I Total Protein Albumin Urine Color Urine Appearance Urine pH Ur Specific [place] Urine Protein Urine Glucose (UA) Urine Ketones Urine Blood Urine Nitrite Urine Bilirubin Urine Urobilinogen Ur Leukocyte Esterase Urine WBC (Auto) Urine RBC (Auto) Urine Casts (Auto) U Pathogenic Cast Auto U Epithel Cells (Auto) U Sm Round Cell (Auto) Urine Crystals (Auto) Urine Bacteria (Auto) Urine Yeast (Auto) Urine HCG, Qual Stool Occult Blood Blood Type O POSITIVE Antibody Screen Negative CXR and CT A/P results reviewed EKG NSR, Prolonged QTc ASSESSMENT/PLAN: 48 HTN, polysubstance abuse (cocaine, marijuana), 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), duodenal tubular adenoma, splenic infarct 09/2018 (non compliant with AC), recent lap appendectomy 10/23/2018, course complicated by C difficile Diarrhea discharge on lovenox/coumadin bridging and oral vancomycin, non compliant comes with nausea, vomiting, abdominal pain, reported bloody diarrhea, dysuria -Acute diffuse colitis, suspicous for C difficile given non compliance, r/o other infectious/inflammatory etiology -Acute lower uncomplicated UTI -Prolonged QTc -Recent splenic infarct -Polysubstance abuse (cocaine, marihuana, alcohol) -HTN -Duodenal tubular adenoma -CVA 2002 -Non compiance Plan: ID/GI/Surgery consulted. Discussed with , Ceftriaxone and oral vancomycin. Stool studies including C difficile. Serial abdominal exams. Clears, IVF. Follow up urine cultures. Check Mg, serial EKG to monitor QTc. Avoid QTc prolonging meds Reports of blood in stools, but FOBT neg, h/h and hemodynamics stable. Will monitor. Resume lovenox daily per prior dc instruction. Start coumadin in 24 hours if no concerns. Continue amlodipine. Hold Metoprolol given active cocaine use. Repeat drug screen. Detox consult DVTPPX as above Dispo pending clinical improvement. PLan discussed with patient in detail, all questions answered. patient reports 'starving' and wanting to have solid food and expressing intentions that might 'sneak in' food. Discussed with need for ongoing clears, close abdominal monitoring and need for compliance with medications and instructions and risks of including worsening abdominal infection, sepsis, and .Patient relays understanding of the same. Admit to med surg. Total admit time spent 65 min. Visit type - Emergency Visit Emergency Visit: Yes ED Registration Date: 11/21/18 Care time: The patient presented to the Emergency Department on the above date and was hospitalized for further evaluation of their emergent condition. - New Patient This patient is new to me today: Yes Date on this admission: 11/21/18 - Critical Care Critical Care patient: No
[2018-11-21] MEDS: SODIUM CHLORIDE 1,000 ML IV SCH (17:33)
[2018-11-21] MEDS: CEFTRIAXONE 1 GM in DEXTROSE 5%-WATER - 50 ML IVPB SCH (18:51)
[2018-11-21] MEDS: VANCOMYCIN 250 MG/5 ML ORAL SOLUTION PO SCH ×2 (18:51→23:36)
[2018-11-21] MEDS ORDERED: IBUPROFEN 200 MG TABLET PO ONE (21:12)
[2018-11-21] MEDS ORDERED: RANITIDINE HCL 150 MG TABLET (FP) PO ONE (21:12)
--- NOTE | 2018-11-22 07:45 | CON.GI ---
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 positive for lupus anticoagulant 09/16, negative end of September, pending confirmatory testing in 12 wks) - Past Surgical History Past Surgical History: Yes: Appendectomy (lap appy 10/23/18), Colonoscopy, Hernia Repair (right lower quadrant, ?with mesh per pt?, and perioperative drains?), Joint Replacement (R knee), Upper Endoscopy - Alcohol/Substance Use Hx Alcohol Use: Yes History of Substance Use: reports: Cocaine ("when I want to," nasal), Marijuana ("when I can") - Smoking History Smoking history: Never smoked Have you smoked in the past 12 months: No Aproximately how many cigarettes per day: 0 - Social History Usual Living Arrangement: With Child (left daughter's yesterday) ADL: Independent History of Recent Travel: No Home Medications - Allergies Allergies/Adverse Reactions: Allergies Allergy/AdvReac Type Severity Reaction Status Date / Time beeswax Allergy Severe Difficulty Verified 11/21/18 08:14 Breathing coconut oil Allergy Severe Itching Verified 11/21/18 08:14 No Known Drug Allergies Allergy Verified 11/21/18 08:14 - Home Medications Home Medications: Ambulatory Orders Amlodipine Besylate [Norvasc -] 2.5 mg PO DAILY #30 tablet 11/04/18 Metoprolol Tartrate [Lopressor -] 12.5 mg PO BID #60 tablet 11/04/18 Omeprazole 20 mg PO DAILY 11/04/18 Thiamine HCl [Vitamin B-1] 100 mg PO DAILY #30 tablet 11/04/18 Warfarin Sodium [Coumadin] 8 mg PO DAILY #60 tablet 11/04/18 Enoxaparin Sodium [Lovenox] 80 mg SQ DAILY 11/05/18 Lactobacillus Acidophilus [Bacid -] 1 each PO DAILY 11/06/18 Vancomycin HCl [Vancocin HCl] 250 mg PO Q6H MDD 48 11/06/18 Family Disease History - Family Disease History Family Disease History: Diabetes: Mother (), Heart Disease: Mother, Other: Father (), Mother Physical Exam-GI Vital Signs: Vital Signs Temperature 98.1 F 11/21/18 15:42 Pulse Rate 68 11/21/18 15:42 Respiratory Rate 18 11/21/18 15:42 Blood Pressure 129/93 11/21/18 15:42 O2 Sat by Pulse Oximetry (%) 99 11/21/18 21:00 Labs: CBC, BMP 11/21/18 10:00 11/21/18 10:00 INR, PTT INR 1.12 (0.83-1.09) H 11/21/18 13:01
[2018-11-22 09:24] LABS: BASO % 0.7 % (0-2.0); EOS % 20.2 % (0-4.5); HEMOGLOBIN 11.1 GM/dL (10.7-15.3); LYMPH % 31.3 % (8-40); MCH 34.2 pg (25.7-33.7); MCHC 33.5 g/dl (32.0-36.0); MEAN CELL VOLUME 102.1 fl (80-96); MEAN PLT VOLUME 8.3 fl (7.5-11.1); MONO % 10.7 % (3.8-10.2); NEUT % 37.1 % (42.8-82.8); PLATELET COUNT 204 K/MM3 (134-434); RBC 3.23 M/mm3 (3.60-5.2); RDW 17.7 % (11.6-15.6)
[2018-11-22] MEDS ORDERED: cefTRIAXone SODIUM 1 GM VIAL ONE (09:33)
[2018-11-22] MEDS ORDERED: DEXTROSE 5%-WATER - 50 ML IVPB ONE (09:33)
[2018-11-22] MEDS: amLODIPine BESYLATE 2.5 MG TABLET (FP) PO SCH (09:44)
[2018-11-22] MEDS: THIAMINE HCL 100 MG TABLET (FP) PO SCH (09:44)
[2018-11-22] MEDS: CEFTRIAXONE 1 GM in DEXTROSE 5%-WATER - 50 ML IVPB SCH (09:44)
[2018-11-22 09:57] LABS: ALK PHOS 104 U/L (45-117); ANION GAP 8 MMOL/L (8-16); BILIRUBIN,TOTAL 0.5 mg/dL (0.2-1); BLOOD UREA NITROGEN 4 mg/dL (7-18); CALCIUM 8.4 mg/dL (8.5-10.1); CHLORIDE 107 mmol/L (98-107); CO2 24 mmol/L (21-32); CREATININE 0.6 mg/dL (0.55-1.3); GLUCOSE,RANDOM 78 mg/dL (74-106); MAGNESIUM 1.9 mg/dL (1.8-2.4); PHOSPHOROUS 3.8 mg/dL (2.5-4.9); POTASSIUM 3.6 mmol/L (3.5-5.1); SGOT/AST 30 U/L (15-37); SGPT/ALT 18 U/L (13-61); SODIUM 140 mmol/L (136-145); TOT PROT 7.4 g/dl (6.4-8.2)
[2018-11-22] MEDS ORDERED: ENOXAPARIN NA (PORCINE) 80 MG/0.8 ML DISP.SYRIN SQ SCH (10:00)
[2018-11-22] MEDS: ACETAMINOPHEN 325 MG TABLET (FP) PO PRN ×2 (10:01→18:50)
[2018-11-22] MEDS: ENOXAPARIN NA (PORCINE) 100 MG/1 ML DISP.SYRIN SQ SCH (10:31)
[2018-11-22] MEDS: LACTOBACILLUS ACIDOPHILUS 1 TABLET PO SCH (10:31)
[2018-11-22] MEDS ORDERED: MAGNESIUM SULF 50% (8.12 MEQ/2 ML-1 GM VIAL) IVPB ONE (11:53)
--- NOTE | 2018-11-22 11:59 | PN ---
Physical Exam: SUBJECTIVE: Patient seen and examined, no nausea, vomiting, diarrhea. Reports discharge from surgical site, none noted by nursing. Tolerating clears well. OBJECTIVE: Vital Signs Period Temp Pulse Resp BP Sys/Enriquez Pulse Ox Last 24 Hr 98.1 F 68 18 129/93 99-99 Intake & Output 11/19/18 11/20/18 11/21/18 11/22/18 23:59 23:59 23:59 23:59 Intake Total 100 Balance 100 Weight 129 lb 12.8 oz GENERAL: sitting in bed in no acute distress Chest: CTAB, no rales or wheezing Abdomen:soft, soft, unchanged distension, NT throughout, ND, pos bowel sounds, pos bowel sounds, laparoscopic site clean, no active erythema or discharge CVS:S1S2 regular extremities; no edema SKIN: Warm, dry, normal turgor, no rashes or lesions noted Laboratory Results - last 24 hr 11/21/18 11/21/18 11/21/18 10:00 13:01 13:01 WBC RBC Hgb Hct MCV MCH MCHC RDW Plt Count MPV Absolute Neuts (auto) Neutrophils % Lymphocytes % Monocytes % Eosinophils % Basophils % Nucleated RBC % PT with INR 13.20 H INR 1.12 H PTT (Actin FS) Cancelled 38.7 H Sodium 137 Potassium 4.2 Chloride 101 Carbon Dioxide 25 Anion Gap 11 BUN 5 L Creatinine 0.7 Creat Clearance w eGFR 89.31 Random Glucose 66 L Calcium 8.8 Phosphorus Magnesium Total Bilirubin 0.4 AST 47 H ALT 22 Alkaline Phosphatase 122 H Troponin I < 0.02 Total Protein 9.3 H Albumin 3.6 Blood Type Antibody Screen 11/21/18 11/22/18 11/22/18 13:01 08:30 08:30 WBC 3.0 L RBC 3.23 L Hgb 11.1 Hct 33.0 MCV 102.1 H MCH 34.2 H MCHC 33.5 RDW 17.7 H Plt Count 204 MPV 8.3 Absolute Neuts (auto) 1.1 L Neutrophils % 37.1 L Lymphocytes % 31.3 Monocytes % 10.7 H Eosinophils % 20.2 H* Basophils % 0.7 Nucleated RBC % 0 PT with INR INR PTT (Actin FS) Sodium 140 Potassium 3.6 Chloride 107 Carbon Dioxide 24 Anion Gap 8 BUN 4 L Creatinine 0.6 Creat Clearance w eGFR 106.70 Random Glucose 78 Calcium 8.4 L Phosphorus 3.8 Magnesium 1.9 Total Bilirubin 0.5 AST 30 ALT 18 Alkaline Phosphatase 104 Troponin I Total Protein 7.4 Albumin 3.0 L Blood Type O POSITIVE Antibody Screen Negative Active Medications Generic Name Dose Route Start Last Admin Trade Name Isidro PRN Reason Stop Dose Admin Acetaminophen 650 mg 11/22/18 09:43 11/22/18 10:01 Tylenol - PO 650 mg Q4H PRN Administration HEADACHE Amlodipine Besylate 2.5 mg 11/22/18 10:00 11/22/18 09:44 Norvasc - PO 2.5 mg DAILY KRISTYN Administration Enoxaparin Sodium 90 mg 11/22/18 10:00 11/22/18 10:31 Lovenox - SQ 90 mg DAILY KRISTYN Administration Ceftriaxone Sodium 1 gm/ 50 mls @ 100 mls/hr 11/21/18 17:00 11/22/18 09:44 Dextrose IVPB 100 mls/hr DAILY KRISTYN Administration Protocol Sodium Chloride 1,000 mls @ 100 mls/hr 11/21/18 17:00 11/21/18 17:33 Normal Saline - IV 100 mls/hr ASDIR KRISTYN Administration Lactobacillus Acidophilus 1 tab 11/22/18 10:00 11/22/18 10:31 Bacid - PO 1 tab DAILY KRISTYN Administration Magnesium Sulfate 1 gm 11/22/18 11:53 Magnesium Sulfate IVPB 11/22/18 11:54 ONCE ONE Thiamine HCl 100 mg 11/22/18 10:00 11/22/18 09:44 Vitamin B1 - PO 100 mg DAILY KRISTYN Administration Vancomycin HCl 500 mg 11/21/18 18:00 11/21/18 23:36 Vancomycin Oral Solution PO 500 mg Q6HPO KRISTYN Administration Warfarin Sodium 8 mg 11/22/18 18:00 Coumadin - PO 11/22/18 18:01 ONCE@1800 ONE Microbiology 11/21/18 10:57 Urine - Urine Clean Catch Urine Culture - Final ASSESSMENT/PLAN: 48 HTN, polysubstance abuse (cocaine, marijuana), 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), duodenal tubular adenoma, splenic infarct 09/2018 (non compliant with AC), recent lap appendectomy 10/23/2018, course complicated by C difficile Diarrhea discharge on lovenox/coumadin bridging and oral vancomycin, non compliant comes with nausea, vomiting, abdominal pain, reported bloody diarrhea, dysuria -Acute diffuse colitis, suspicous for C difficile given non compliance, r/o other infectious/inflammatory etiology -Acute lower uncomplicated UTI -Prolonged QTc -Recent splenic infarct -Polysubstance abuse (cocaine, marihuana, alcohol) -HTN -Duodenal tubular adenoma -CVA 2002 -Non compiance Plan: Improved. No nausea/vomitting/diarrhea inhouse. Abdominal exam benign, tolerating clears. Advance to soft diet. Stool studies if recurrent diarrhea, PO vancomycin. IV ceftriaxone, follow up urine cx, follow up ID input. ?eosinophilia, trend, Stool studies as above, hematology input Await Surgery/GI input. IVF Monitor Qtc No concerns of bleed inhouse. Continue lovenox, resume coumadin 8 mg dialy. Reports of blood in stools, but FOBT neg, h/h and hemodynamics stable. Continue amlodipine. Hold Metoprolol given active cocaine use. Repeat drug screen. Detox consult DVTPPX as above Dispo in 1-2 days if tolerating diet well, no new concerns. Plan discussed with patient and nursing, all questions answered. Visit type - Emergency Visit Emergency Visit: Yes ED Registration Date: 11/21/18 Care time: The patient presented to the Emergency Department on the above date and was hospitalized for further evaluation of their emergent condition. - New Patient This patient is new to me today: No - Critical Care Critical Care patient: No - Discharge Referral Referred to [facility] No
[2018-11-22 12:11] LABS: EPI CELLS 6.4 /HPF (0-5/HPF); PH,URINE 6.5 (5.0-8.0); URINE APPEARANCE CLEAR; URINE BACTERIA 72.1 /hpf (NEGATIVE); URINE BILIRUBIN NEGATIVE (NEGATIVE); URINE CASTS 2 /lpf (0-8); URINE COLOR YELLOW; URINE GLUCOSE (UA) NEGATIVE (NEGATIVE); URINE KETONE NEGATIVE (NEGATIVE); URINE LEUK ESTERASE TRACE (NEGATIVE); URINE NITRITE NEGATIVE (NEGATIVE); URINE PROTEIN 2+ (NEGATIVE); URINE RBC 1 /hpf (0-4); URINE UROBILINOGEN 0.2 mg/dL (0.2-1.0); URINE WBC 15 /hpf (0-5)
[2018-11-22] MEDS: VANCOMYCIN 250 MG/5 ML ORAL SOLUTION PO SCH ×2 (12:27→17:44)
[2018-11-22 12:49] LABS: METHADONE, UR NEGATIVE ng/ml (CUTOFF=300); OPIATES, URI NEGATIVE ng/ml (CUTOFF=300); PHENCYCLIDINE,URINE NEGATIVE ng/ml (CUTOFF=25); URINE AMPHETAMINES NEGATIVE ng/ml (CUTOFF=500); URINE BARBITURATES NEGATIVE ng/ml (CUTOFF=200); URINE BENZODIAZEPINES NEGATIVE ng/ml (CUTOFF=200)
[2018-11-22 12:53] LABS: ANISOCYTOSIS 1+; MACROCYTOSIS 1+; PLATELET ESTIMATE NORMAL
[2018-11-22 13:13] LABS: COCAINE, UR POSITIVE ng/ml (CUTOFF=300)
--- NOTE | 2018-11-22 13:24 | CONSULT ---
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 Pathology showed focal obliteration and focal fibrous adhesions, consistent with possible previous inflammation. Postop, she was diagnosed with C. difficile diarrhea and started on oral vancomycin, then d/c home to complete course. She was back in the ER just over a week later, still with symptoms of abdominal pain and diarrhea, and admitted not having had her meds for at least a day, as she had been staying with her daughter and left the house without all of her medications. She is historically not fully compliant with home meds, though she states she has been taking her lovenox and coumadin, just not sure of what coumadin dose, and not necessarily every day. She admits to not having completed the full course of vancomycin. She was admitted to medicine through ER yesterday, back with recurrent diarrhea (some bloody), abdominal pain, n/v, and fecal incontinence, which started the day before again. She also reports a dry cough recently, and lost her voice last Saturday, which is starting to come back but is not normal yet. She feels weak and tired overall, increased body/muscle aches, and possibly some subjective fever and chills. UA was initially questionable for UTI, but culture grew <10K colonies. She got Keflex in ER, Ceftriaxone, and has been started back on oral vancomycin for presumed C. difficile. Stool studies are still pending, but occult blood was negative. ID and GI are seeing patient today. At her umbilical surgical site, she noticed some drainage from the area when a scab came off a couple days ago, and reports having used gauze and tape to cover it. There was some drainage yesterday, but today it appears completely dry. She also noticed a small white stitch end showing at the bottom. The area is firm to touch, and still somewhat tender. Surgery was asked to see her by the medical team. She is seen and examined in her room, just after having eaten a lunch tray (food ). She reports a hard lump at the site, and some pain before, "like being stabbed." She appears relatively comfortable. She sounds a little bit hoarse. - History Source History Provided By: Patient Limitations to Obtaining History: Poor Historian - Past Medical History [facility] [employer]: Yes: CVA Cardio/Vascular: Yes: HTN, Other (1st degree AVB found last admission) Gastrointestinal: Yes: GERD, Hemorrhoids ...LMP: 11/26/15 ...: No Heme/Onc: Yes: Other (splenic infarct 09/16) Infectious Disease: Yes: C-Diff (dx 10/27/18) Psych: Yes: Addictions (uses MJ, EtOH, nasal cocaine (only once in last few weeks)), Depression Rheumatology: Yes: Other (?? positive for lupus anticoagulant 09/16, negative end of September, pending confirmatory testing) - Past Surgical History Past Surgical History: Yes: Appendectomy (lap appy 10/23/18), Colonoscopy, Hernia Repair (?? right lower quadrant, ?with mesh per pt?, and perioperative drains? - nothing seen on abd wall during lap appy), Joint Replacement (R knee) , Upper Endoscopy - Alcohol/Substance Use Hx Alcohol Use: Yes (last drank 11/20) History of Substance Use: reports: Cocaine ("when I can afford it," nasal - last 11/20), Marijuana (last use 11/20) Date of Last Use: 11/20/18 - Smoking History Smoking history: Never smoked (cigarettes) Have you smoked in the past 12 months: No Aproximately how many cigarettes per day: 0 - Social History Usual Living Arrangement: With Child ADL: Independent History of Recent Travel: No Home Medications - Allergies Allergies/Adverse Reactions: Allergies Allergy/AdvReac Type Severity Reaction Status Date / Time beeswax Allergy Severe Difficulty Verified 11/21/18 08:14 Breathing coconut oil Allergy Severe Itching Verified 11/21/18 08:14 No Known Drug Allergies Allergy Verified 11/21/18 08:14 - Home Medications Home Medications: Ambulatory Orders Amlodipine Besylate [Norvasc -] 2.5 mg PO DAILY #30 tablet 11/04/18 Metoprolol Tartrate [Lopressor -] 12.5 mg PO BID #60 tablet 11/04/18 Omeprazole 20 mg PO DAILY 11/04/18 Thiamine HCl [Vitamin B-1] 100 mg PO DAILY #30 tablet 11/04/18 Warfarin Sodium [Coumadin] 8 mg PO DAILY #60 tablet 11/04/18 Enoxaparin Sodium [Lovenox] 80 mg SQ DAILY 11/05/18 Lactobacillus Acidophilus [Bacid -] 1 each PO DAILY 11/06/18 Vancomycin HCl [Vancocin HCl] 250 mg PO Q6H MDD 48 11/06/18 Home Medications (free text): pt states she wasn't taking BP meds every day. has been taking lovenox, but missed some days. reports taking coumadin - one pill at night, does not know what dose. admits not finishing vanco course for C. diff before - not sure how much she took Family Disease History - Family Disease History Family Disease History: Diabetes: Mother (), Heart Disease: Mother, Other: Father (), Mother Review of Systems - Review of Systems Constitutional: reports: Chills (subjective in hospital), Fever (maybe subjective before coming to hospital), Lethargy, Weakness Eyes: denies: Blurred Vision, Recent Change in Vision HENT: reports: Throat Pain (itching in throat - lost voice Easter Saturday, it is coming back). denies: Nasal Congestion Neck: denies: Swollen Glands, Tenderness Cardiovascular: reports: Chest Pain (some, at times). denies: Palpitations Respiratory: reports: Cough (dry cough), SOB Gastrointestinal: reports: Abdominal Pain (lower and at umbilical scar), Bloating, Diarrhea (with hpi), Nausea, Rectal Bleeding (blood with stool), Vomiting, Other (fecal incontinence) Genitourinary: reports: Dysuria. denies: Burning Musculoskeletal: reports: Back Pain. denies: Joint Pain, Muscle Pain Integumentary: reports: Lump (hard spot at umbilical scar), Other (stitch at umbilical site, had some drainage previously). denies: Change in Color, Rash Neurological: denies: Dizziness, Headache Physical Exam Vital Signs: Vital Signs Temperature 98.1 F 11/21/18 15:42 Pulse Rate 68 11/21/18 15:42 Respiratory Rate 18 11/21/18 15:42 Blood Pressure 129/93 11/21/18 15:42 O2 Sat by Pulse Oximetry (%) 99 11/21/18 21:00 Constitutional: Yes: No Distress, Calm, Thin Eyes: Yes: Conjunctiva Clear, EOM Intact HENT: Yes: Atraumatic, Normocephalic Neck: Yes: Supple, Trachea Midline Cardiovascular: Yes: Regular Rate and Rhythm Respiratory: Yes: Regular, CTA Bilaterally Gastrointestinal: Yes: Normal Bowel Sounds, Soft, Distention (mild), Tenderness (mild at umbilical scar). No: Tenderness, Rebound ...Rectal Exam: Yes: Deferred Renal/: No: Jacobs Present, Incontinence Musculoskeletal: No: Joint Stiffness, Joint Swelling Extremities: No: Cool, Cyanosis Edema: No Peripheral Pulses WNL: Yes Integumentary: Yes: Incision (suprapubic and LLQ healed, umbilical site mostly healed, with small dry spot in upper aspect - no drainage expressible, looks like scab fell off there; lower pole with end of vicryl stitch visible, no drainage, no opening; no erythema, + healing ridge palpable, no fluctuance). No : Jaundice, Rash Wound/Incision: Yes: Clean/Dry, Well Approximated (x3), Open to air Neurological: Yes: Alert, Oriented Psychiatric: Yes: Alert, Oriented Labs: CBC, BMP 11/22/18 08:30 11/22/18 08:30 CMP Sodium 140 mmol/L (136-145) 11/22/18 08:30 Potassium 3.6 mmol/L (3.5-5.1) 11/22/18 08:30 Chloride 107 mmol/L (98-107) 11/22/18 08:30 Carbon Dioxide 24 mmol/L (21-32) 11/22/18 08:30 Anion Gap 8 MMOL/L (8-16) 11/22/18 08:30 BUN 4 mg/dL (7-18) L 11/22/18 08:30 Creatinine 0.6 mg/dL (0.55-1.3) 11/22/18 08:30 Creat Clearance w eGFR 106.70 (>60) 11/22/18 08:30 Random Glucose 78 mg/dL (74-106) 11/22/18 08:30 Calcium 8.4 mg/dL (8.5-10.1) L 11/22/18 08:30 Phosphorus 3.8 mg/dL (2.5-4.9) 11/22/18 08:30 Magnesium 1.9 mg/dL (1.8-2.4) 11/22/18 08:30 Total Bilirubin 0.5 mg/dL (0.2-1) 11/22/18 08:30 AST 30 U/L (15-37) 11/22/18 08:30 ALT 18 U/L (13-61) 11/22/18 08:30 Alkaline Phosphatase 104 U/L (45-117) 11/22/18 08:30 Troponin I < 0.02 ng/ml (0.00-0.05) 11/21/18 10:00 Total Protein 7.4 g/dl (6.4-8.2) 11/22/18 08:30 Albumin 3.0 g/dl (3.4-5.0) L 11/22/18 08:30 INR, PTT INR 1.12 (0.83-1.09) H 11/21/18 13:01 Ptt 38 Urine Test Results Urine Color Yellow 11/22/18 11:45 Urine Appearance Clear 11/22/18 11:45 Urine pH 6.5 (5.0-8.0) 11/22/18 11:45 Ur Specific [place] 1.023 (1.010-1.035) 11/22/18 11:45 Urine Protein 2+ (NEGATIVE) H 11/22/18 11:45 Urine Glucose (UA) Negative (NEGATIVE) 11/22/18 11:45 Urine Ketones Negative (NEGATIVE) 11/22/18 11:45 Urine Blood Negative (NEGATIVE) 11/22/18 11:45 Urine Nitrite Negative (NEGATIVE) 11/22/18 11:45 Urine Bilirubin Negative (NEGATIVE) 11/22/18 11:45 Ur Leukocyte Esterase Trace (NEGATIVE) 11/22/18 11:45 Microbiology 11/21/18 10:57 Urine Culture - Final Urine - Urine Clean Catch UCx < 10,000 colonies UTox + cocaine, MJ C. diff still pending collection Imaging - Results Cat Scan: Report Reviewed, Image Reviewed (images reviewed - diffuse colonic thickening, no obstruction, no free air or fluid; postop changes at umbilical area; very small residual evidence of splenic infarct anterior tip) Problem List - Problems (1) S/P laparoscopic appendectomy Assessment/Plan: 1 month s/p laparoscopic appendectomy for subacute/partially treated appendicitis incisions healing well appropriate healing ridge at umbilical site - will soften over time end of vicryl suture showing at inferior pole - trimmed back no active drainage no s/s infection if there is any drainage, would keep covered with gauze and tape daily/prn until fully healed no need for intervention or surgical followup Thank you for the opportunity to participate in the care of this patient. will sign off - please call with any questions (2) Periumbilical pain Assessment/Plan: mild/minimal at incisional scar healing ridge, will soften over time see above Code(s): R10.33 - PERIUMBILICAL PAIN (3) C. difficile diarrhea Assessment/Plan: being seen by GI and ID (discussed with Dr. Phillip) treatment per them and medicine pt historically noncompliant with meds at home CBC differential shows high eosinophils - ?significance Code(s): A04.72 - ENTEROCOLITIS D/T CLOSTRIDIUM DIFFICILE, NOT SPCF RECUR (4) Nausea & vomiting Assessment/Plan: tolerated diet just now - would consider keeping to clears or per GI with presumed active C. diff infection NPO if N/V Code(s): R11.2 - NAUSEA WITH VOMITING, UNSPECIFIED Qualifiers: Vomiting type: unspecified Vomiting Intractability: non-intractable Qualified Code(s): R11.2 - Nausea with vomiting, unspecified (5) Alcohol dependence Code(s): F10.20 - ALCOHOL DEPENDENCE, UNCOMPLICATED Qualifiers: Substance use status: uncomplicated Qualified Code(s): F10.20 - Alcohol dependence, uncomplicated (6) Cannabis dependence Code(s): F12.20 - CANNABIS DEPENDENCE, UNCOMPLICATED (7) Cocaine dependence Code(s): F14.20 - COCAINE DEPENDENCE, UNCOMPLICATED Qualifiers: Substance use status: uncomplicated Qualified Code(s): F14.20 - Cocaine dependence, uncomplicated (8) Hypertension Assessment/Plan: noncompliant with home meds - BP in normal ranges here Code(s): I10 - ESSENTIAL (PRIMARY) HYPERTENSION Qualifiers: Hypertension type: essential hypertension Qualified Code(s): I10 - Essential (primary) hypertension (9) Splenic infarct Assessment/Plan: hematology consulted likely noncompliant with home meds subtherapeutic INR - she does not know what dose of coumadin she's taking but only one pill nightly on lovenox/coumadin now Code(s): D73.5 - INFARCTION OF SPLEEN
--- NOTE | 2018-11-22 13:25 | CON.ID ---
Consult - History of Present Illness History of Present Illness: 48 y.o. female with PMH of polysubstance abuse (snorts cocaine, marijuana, denies IVDU), HTN, CVA, duodenal tubular adenoma, GERD, Rt TKR, recent splenic infarct who underwent lap appendectomy 1 month ago and subsequently developed C. diff Colitis. She was discharged on Vancomycin po/Bacid but presents with complaints of increased multiple loose stools (recently bloody/with mucous), lower abd pain, chills, with episodes of n/v. Pt states she has not taken vancomycin po in the last several days, unclear if compliant with other medications. Also with c/o urethral discomfort with urination but no suprapubic pain or flank pain. She is alert, afebrile, without complaints of n/v but has some abdominal discomfort with palpation. Remains afebrile. Abd appendectomy wound site with recent yellow discharge as per pt but currently dry. 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 positive for lupus anticoagulant 09/16, negative end of September, pending confirmatory testing in 12 wks) - Past Surgical History Past Surgical History: Yes: Appendectomy (lap appy 10/23/18), Colonoscopy, Hernia Repair (right lower quadrant, ?with mesh per pt?, and perioperative drains?), Joint Replacement (R knee), Upper Endoscopy - Alcohol/Substance Use Hx Alcohol Use: Yes History of Substance Use: reports: Cocaine ("when I want to," nasal), Marijuana ("when I can") - Smoking History Smoking history: Never smoked Have you smoked in the past 12 months: No Aproximately how many cigarettes per day: 0 - Social History Usual Living Arrangement: With Child (left daughter's yesterday) ADL: Independent History of Recent Travel: No Home Medications - Allergies Allergies/Adverse Reactions: Allergies Allergy/AdvReac Type Severity Reaction Status Date / Time beeswax Allergy Severe Difficulty Verified 11/21/18 08:14 Breathing coconut oil Allergy Severe Itching Verified 11/21/18 08:14 No Known Drug Allergies Allergy Verified 11/21/18 08:14 - Home Medications Home Medications: Ambulatory Orders Amlodipine Besylate [Norvasc -] 2.5 mg PO DAILY #30 tablet 11/04/18 Metoprolol Tartrate [Lopressor -] 12.5 mg PO BID #60 tablet 11/04/18 Omeprazole 20 mg PO DAILY 11/04/18 Thiamine HCl [Vitamin B-1] 100 mg PO DAILY #30 tablet 11/04/18 Warfarin Sodium [Coumadin] 8 mg PO DAILY #60 tablet 11/04/18 Enoxaparin Sodium [Lovenox] 80 mg SQ DAILY 11/05/18 Lactobacillus Acidophilus [Bacid -] 1 each PO DAILY 11/06/18 Vancomycin HCl [Vancocin HCl] 250 mg PO Q6H MDD 48 11/06/18 Family Disease History - Family Disease History Family Disease History: Diabetes: Mother (), Heart Disease: Mother, Other: Father (), Mother Review of Systems - Review of Systems Constitutional: reports: No Symptoms Eyes: reports: No Symptoms HENT: reports: No Symptoms Neck: reports: No Symptoms Cardiovascular: reports: No Symptoms Respiratory: reports: No Symptoms Gastrointestinal: reports: Abdominal Pain, Diarrhea, Rectal Bleeding Genitourinary: reports: No Symptoms Musculoskeletal: reports: Back Pain (chronic) Integumentary: reports: No Symptoms Neurological: reports: No Symptoms Endocrine: reports: No Symptoms Hematology/Lymphatic: reports: No Symptoms Psychiatric: reports: No Symptoms Physical Exam Vital Signs: Vital Signs Temperature 98.1 F 11/21/18 15:42 Pulse Rate 68 11/21/18 15:42 Respiratory Rate 18 11/21/18 15:42 Blood Pressure 129/93 11/21/18 15:42 O2 Sat by Pulse Oximetry (%) 99 11/21/18 21:00 Constitutional: Yes: No Distress, Calm Eyes: Yes: Conjunctiva Clear HENT: Yes: Atraumatic Neck: Yes: Supple Cardiovascular: Yes: Regular Rate and Rhythm Respiratory: Yes: CTA Bilaterally Gastrointestinal: Yes: Normal Bowel Sounds, Soft, Tenderness (LLQ) Renal/: Yes: WNL Extremities: Yes: WNL Edema: No Integumentary: Yes: WNL Wound/Incision: Yes: Clean/Dry Neurological: Yes: Alert Labs: CBC, BMP 11/22/18 08:30 11/22/18 08:30 Laboratory Tests 11/21/18 11/21/18 11/21/18 09:57 10:00 10:00 WBC 5.9 RBC 3.52 L Hgb 12.0 Hct 35.7 D MCV 101.4 H MCH 34.0 H MCHC 33.6 RDW 18.1 H Plt Count 254 D MPV 8.4 Absolute Neuts (auto) 2.7 Neutrophils % 44.9 Lymphocytes % 30.7 D Monocytes % 6.7 Eosinophils % 16.4 H D Basophils % 1.3 Nucleated RBC % 0 PT with INR INR PTT (Actin FS) Sodium 137 Potassium 4.2 Chloride 101 Carbon Dioxide 25 Anion Gap 11 BUN 5 L Creatinine 0.7 Creat Clearance w eGFR 89.31 Random Glucose 66 L Calcium 8.8 Phosphorus Magnesium Total Bilirubin 0.4 AST 47 H ALT 22 Alkaline Phosphatase 122 H Troponin I < 0.02 Total Protein 9.3 H Albumin 3.6 Urine Color Urine Appearance Urine pH Ur Specific [place] Urine Protein Urine Glucose (UA) Urine Ketones Urine Blood Urine Nitrite Urine Bilirubin Urine Urobilinogen Ur Leukocyte Esterase Urine WBC (Auto) Urine RBC (Auto) Urine Casts (Auto) U Pathogenic Cast Auto U Epithel Cells (Auto) U Sm Round Cell (Auto) Urine Crystals (Auto) Urine Bacteria (Auto) Urine Yeast (Auto) Urine HCG, Qual Stool Occult Blood Negative Opiates Screen Methadone Screen Barbiturate Screen Phencyclidine Screen Ur Amphetamines Screen MDMA (Ecstasy) Screen Benzodiazepines Screen Cocaine Screen U Marijuana (THC) Screen Blood Type Antibody Screen 11/21/18 11/21/18 11/21/18 10:57 10:57 13:01 WBC RBC Hgb Hct MCV MCH MCHC RDW Plt Count MPV Absolute Neuts (auto) Neutrophils % Lymphocytes % Monocytes % Eosinophils % Basophils % Nucleated RBC % PT with INR INR PTT (Actin FS) Cancelled Sodium Potassium Chloride Carbon Dioxide Anion Gap BUN Creatinine Creat Clearance w eGFR Random Glucose Calcium Phosphorus Magnesium Total Bilirubin AST ALT Alkaline Phosphatase Troponin I Total Protein Albumin Urine Color Yellow Cancelled Urine Appearance Cloudy Cancelled Urine pH 6.0 Cancelled Ur Specific [place] 1.008 L Cancelled Urine Protein Negative Cancelled Urine Glucose (UA) Negative Cancelled Urine Ketones Negative Cancelled Urine Blood Negative Cancelled Urine Nitrite Negative Cancelled Urine Bilirubin Negative Cancelled Urine Urobilinogen 0.2 Cancelled Ur Leukocyte Esterase 2+ H Cancelled Urine WBC (Auto) 37.2 Cancelled Urine RBC (Auto) 2.8 Cancelled Urine Casts (Auto) 7.51 Cancelled U Pathogenic Cast Auto Cancelled U Epithel Cells (Auto) 4.1 Cancelled U Sm Round Cell (Auto) Cancelled Urine Crystals (Auto) Cancelled Urine Bacteria (Auto) 397.9 Cancelled Urine Yeast (Auto) Cancelled Urine HCG, Qual Negative Stool Occult Blood Opiates Screen Methadone Screen Barbiturate Screen Phencyclidine Screen Ur Amphetamines Screen MDMA (Ecstasy) Screen Benzodiazepines Screen Cocaine Screen U Marijuana (THC) Screen Blood Type Antibody Screen 11/21/18 11/21/18 11/22/18 13:01 13:01 08:30 WBC 3.0 L RBC 3.23 L Hgb 11.1 Hct 33.0 MCV 102.1 H MCH 34.2 H MCHC 33.5 RDW 17.7 H Plt Count 204 MPV 8.3 Absolute Neuts (auto) 1.1 L Neutrophils % 37.1 L Lymphocytes % 31.3 Monocytes % 10.7 H Eosinophils % 20.2 H* Basophils % 0.7 Nucleated RBC % 0 PT with INR 13.20 H INR 1.12 H PTT (Actin FS) 38.7 H Sodium Potassium Chloride Carbon Dioxide Anion Gap BUN Creatinine Creat Clearance w eGFR Random Glucose Calcium Phosphorus Magnesium Total Bilirubin AST ALT Alkaline Phosphatase Troponin I Total Protein Albumin Urine Color Urine Appearance Urine pH Ur Specific [place] Urine Protein Urine Glucose (UA) Urine Ketones Urine Blood Urine Nitrite Urine Bilirubin Urine Urobilinogen Ur Leukocyte Esterase Urine WBC (Auto) Urine RBC (Auto) Urine Casts (Auto) U Pathogenic Cast Auto U Epithel Cells (Auto) U Sm Round Cell (Auto) Urine Crystals (Auto) Urine Bacteria (Auto) Urine Yeast (Auto) Urine HCG, Qual Stool Occult Blood Opiates Screen Methadone Screen Barbiturate Screen Phencyclidine Screen Ur Amphetamines Screen MDMA (Ecstasy) Screen Benzodiazepines Screen Cocaine Screen U Marijuana (THC) Screen Blood Type O POSITIVE Antibody Screen Negative 11/22/18 11/22/18 11/22/18 08:30 11:45 11:45 WBC RBC Hgb Hct MCV MCH MCHC RDW Plt Count MPV Absolute Neuts (auto) Neutrophils % Lymphocytes % Monocytes % Eosinophils % Basophils % Nucleated RBC % PT with INR INR PTT (Actin FS) Sodium 140 Potassium 3.6 Chloride 107 Carbon Dioxide 24 Anion Gap 8 BUN 4 L Creatinine 0.6 Creat Clearance w eGFR 106.70 Random Glucose 78 Calcium 8.4 L Phosphorus 3.8 Magnesium 1.9 Total Bilirubin 0.5 AST 30 ALT 18 Alkaline Phosphatase 104 Troponin I Total Protein 7.4 Albumin 3.0 L Urine Color Yellow Urine Appearance Clear Urine pH 6.5 Ur Specific [place] 1.023 Urine Protein 2+ H Urine Glucose (UA) Negative Urine Ketones Negative Urine Blood Negative Urine Nitrite Negative Urine Bilirubin Negative Urine Urobilinogen 0.2 Ur Leukocyte Esterase Trace Urine WBC (Auto) 15 Urine RBC (Auto) 1 Urine Casts (Auto) 2 U Pathogenic Cast Auto U Epithel Cells (Auto) 6.4 U Sm Round Cell (Auto) Urine Crystals (Auto) Urine Bacteria (Auto) 72.1 Urine Yeast (Auto) Urine HCG, Qual Stool Occult Blood Opiates Screen Negative Methadone Screen Negative Barbiturate Screen Negative Phencyclidine Screen Negative Ur Amphetamines Screen Negative MDMA (Ecstasy) Screen Negative Benzodiazepines Screen Negative Cocaine Screen Positive A* U Marijuana (THC) Screen Positive A* Blood Type Antibody Screen Imaging - Results Chest X-ray: Report Reviewed Cat Scan: Report Reviewed Assessment/Plan 48 y.o. female with PMH of polysubstance abuse (snorts cocaine, marijuana, denies IVDU), HTN, CVA, duodenal tubular adenoma, GERD, Rt TKR, recent splenic infarct who underwent lap appendectomy 1 month ago and subsequently developed C. diff Colitis and d/c home on Vancomycin PO which she has been noncompliant with in past several days. Presents with increased diarrhea/bloody, episodes of n/v C.diff Colitis Eosinophilia -- started on Vancomycin po, continue -- Urine culture neg, will d/c Ceftriaxone and monitor -- monitor eosinophils, repeat cbc -- monitor vitals, currently afebrile/stable Will follow
[2018-11-22 15:03] LABS: MAGNESIUM 2.1 mg/dL (1.8-2.4); PHOSPHOROUS 4.7 mg/dL (2.5-4.9)
--- NOTE | 2018-11-22 17:31 | CONS ---
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 Her course upon discharge was complicated by Clostridium difficile colitis. She was discharged on oral vancomycin at that time. Apparently, she is noncompliant. She now presents to the hospital with a 3-day history of nausea, vomiting, loose bowel movements, incontinence, lower abdominal pain and dysuria. She denies any melena, fevers, chills or hematemesis. She did report some red blood on the napkin after her bowel movements. She has also had some discharge from her laparoscopy site. PAST MEDICAL AND SURGICAL HISTORY: These are as listed in the HPI. ALLERGIES: BEE WAX, COCONUT OIL. No other known allergies. SOCIAL HISTORY: She smokes, drinks beer and abuses cocaine and marijuana. FAMILY HISTORY: No history of GI or gynecologic malignancy. HOME MEDICATIONS: Norvasc, Lopressor, vitamin B, Coumadin, Lovenox bridge and vancomycin. REVIEW OF SYSTEMS: As per the HPI. PHYSICAL EXAMINATION: Vital Signs: Temperature 98, pulse 68, blood pressure 129/93, respiratory rate 12, oxygen saturation 99% on room air. General: The patient is in no acute distress. HEENT: Anicteric sclerae. Cardiovascular: S1, S2. Regular rate and rhythm. Lungs: Bilaterally clear to auscultation. Abdomen: Surgical site appears to be clean and dry, mildly tympanic. Lower abdominal tenderness without rebound or guarding. Extremities: No edema. LABS: White blood cell count was 3, hemoglobin 11, hematocrit 33, MCV 102, platelet count 204, INR 1.1, sodium 140, potassium 3.6, BUN 4, creatinine 0.6, glucose 78, total bilirubin 0.5, AST of 30, ALT of 18, alkaline phosphatase 104. A CT scan of the abdomen and pelvis with contrast was done in the emergency room and revealed diffuse colitis. There was no formed stool present. A colonoscopy was recommended. IMPRESSION: Nausea, vomiting and diarrhea secondary to underlying infectious etiology. Recurrent Clostridium difficile cannot be excluded at this time. RECOMMENDATION: 1. Stool culture; ova and parasites; leukocytes; Clostridium difficile; PCR. 2. Continue her on vancomycin. She is currently on 500 mg p.o. q. 6 hours. She can be advanced to a low-residue, lactose-free diet. She would benefit from a diagnostic colonoscopy once the acute process has resolved. 3. The patient will be followed by the GI Service. DO RAFAEL CAPPS/[id number]
[2018-11-22] MEDS: SODIUM CHLORIDE 1,000 ML IV SCH ×2 (17:45→22:35)
[2018-11-22] MEDS ORDERED: WARFARIN NA 2 MG TABLET (UD) PO ONE (18:00)
[2018-11-22] MEDS ORDERED: PT OWN MED DRAWER 7, Y5N ONE (22:28)
[2018-11-23] MEDS: VANCOMYCIN 250 MG/5 ML ORAL SOLUTION PO SCH ×6 (00:17→23:56)
--- NOTE | 2018-11-23 07:15 | PN.GI ---
GI Progress Note Subjective: still with diarrhea over night ; some abdominal discomfort. no other complaints - Objective Vital Signs: Vital Signs Temperature 98.4 F 11/22/18 19:07 Pulse Rate 66 11/22/18 21:00 Respiratory Rate 18 11/22/18 21:00 Blood Pressure 147/97 11/22/18 21:00 O2 Sat by Pulse Oximetry (%) 99 11/22/18 21:00 Constitutional: Well Nourished, No Distress, Calm Eyes: Yes: WNL HENT: Yes: WNL Neck: Yes: WNL Cardiovascular: Yes: WNL, Regular Rate and Rhythm Respiratory: Yes: WNL, Regular, CTA Bilaterally Gastrointestinal Inspection: Yes: WNL ...Auscultate: Yes: Normoactive Bowel Sounds Musculoskeletal: Yes: WNL Extremities: Yes: WNL Edema: No Labs: CBC, BMP 11/22/18 08:30 11/22/18 08:30 INR, PTT INR 1.12 (0.83-1.09) H 11/21/18 13:01 Problem List - Problems (1) Diarrhea Assessment/Plan: f/u stool culture and c.diff pcr c/w po vanco ID f/u Low residue lactose free diet Code(s): R19.7 - DIARRHEA, UNSPECIFIED (2) Abdominal pain Code(s): R10.9 - UNSPECIFIED ABDOMINAL PAIN
[2018-11-23] MEDS: SODIUM CHLORIDE 1,000 ML IV SCH ×2 (08:40→22:31)
[2018-11-23 09:07] LABS: BASO % 1.2 % (0-2.0); EOS % 18.8 % (0-4.5); HEMATOCRIT 35.4 % (32.4-45.2); HEMOGLOBIN 11.7 GM/dL (10.7-15.3); LYMPH % 36.7 % (8-40); MCH 33.6 pg (25.7-33.7); MEAN CELL VOLUME 101.8 fl (80-96); MEAN PLT VOLUME 8.5 fl (7.5-11.1); MONO % 11.6 % (3.8-10.2); NEUT % 31.7 % (42.8-82.8); PLATELET COUNT 224 K/MM3 (134-434); RBC 3.48 M/mm3 (3.60-5.2); RDW 17.6 % (11.6-15.6); WHITE BLOOD COUNT 2.9 K/mm3 (4.0-10.0)
[2018-11-23 09:35] LABS: ALK PHOS 105 U/L (45-117); ANION GAP 4 MMOL/L (8-16); BILIRUBIN,TOTAL 0.3 mg/dL (0.2-1); CALCIUM 8.9 mg/dL (8.5-10.1); CHLORIDE 107 mmol/L (98-107); CO2 27 mmol/L (21-32); CREATININE 0.6 mg/dL (0.55-1.3); GLUCOSE,RANDOM 79 mg/dL (74-106); INR 1.03 (0.83-1.09); POTASSIUM 3.8 mmol/L (3.5-5.1); PROTHROMBIN TIME (PATIENT) 12.2 SEC (9.7-13.0); SGOT/AST 26 U/L (15-37); SGPT/ALT 16 U/L (13-61); SODIUM 138 mmol/L (136-145)
[2018-11-23] MEDS ORDERED: PT OWN MED DRAWER 7, Y5N ONE (09:46)
[2018-11-23] MEDS ORDERED: cefTRIAXone SODIUM 1 GM VIAL ONE (09:46)
[2018-11-23] MEDS ORDERED: DEXTROSE 5%-WATER - 50 ML IVPB ONE (09:46)
[2018-11-23] MEDS: ACETAMINOPHEN 325 MG TABLET (FP) PO PRN ×3 (09:49→22:29)
[2018-11-23] MEDS: amLODIPine BESYLATE 2.5 MG TABLET (FP) PO SCH (09:54)
[2018-11-23] MEDS: LACTOBACILLUS ACIDOPHILUS 1 TABLET PO SCH (09:54)
[2018-11-23] MEDS: CEFTRIAXONE 1 GM in DEXTROSE 5%-WATER - 50 ML IVPB SCH (09:54)
[2018-11-23] MEDS: ENOXAPARIN NA (PORCINE) 100 MG/1 ML DISP.SYRIN SQ SCH (09:54)
[2018-11-23] MEDS: THIAMINE HCL 100 MG TABLET (FP) PO SCH (09:54)
[2018-11-23 10:05] LABS: BLOOD UREA NITROGEN 2 mg/dL (7-18)
--- NOTE | 2018-11-23 12:57 | PN ---
Progress Note, Physician History of Present Illness: Pt states overall she doesnt feel well, was unable to tolerate food last night. Today however pain is less, reports 2 non-bloody, mucoid BMs. Remains afebrile. - Current Medication List Current Medications: Active Medications Acetaminophen (Tylenol -) 650 mg PO Q4H PRN PRN Reason: HEADACHE Last Admin: 11/23/18 09:49 Dose: 650 mg Amlodipine Besylate (Norvasc -) 2.5 mg PO DAILY [facility] Last Admin: 11/23/18 09:54 Dose: 2.5 mg Enoxaparin Sodium (Lovenox -) 90 mg SQ DAILY [facility] Last Admin: 11/23/18 09:54 Dose: 90 mg Sodium Chloride (Normal Saline -) 1,000 mls @ 100 mls/hr IV ASDIR [facility] Last Admin: 11/23/18 08:40 Dose: 100 mls/hr Lactobacillus Acidophilus (Bacid -) 1 tab PO DAILY [facility] Last Admin: 11/23/18 09:54 Dose: 1 tab Thiamine HCl (Vitamin B1 -) 100 mg PO DAILY [facility] Last Admin: 11/23/18 09:54 Dose: 100 mg Vancomycin HCl (Vancomycin Oral Solution) 500 mg PO Q6HPO [facility] Last Admin: 11/23/18 07:27 Dose: Not Given Warfarin Sodium 5 mg/ Warfarin (Sodium 3 mg) 8 mg PO DAILY@1800 [facility] - Objective Vital Signs: Vital Signs Temperature 98.0 F 11/23/18 10:00 Pulse Rate 79 11/23/18 10:00 Respiratory Rate 18 11/23/18 10:00 Blood Pressure 109/70 11/23/18 10:00 O2 Sat by Pulse Oximetry (%) 99 11/22/18 21:00 Constitutional: Yes: No Distress, Calm Cardiovascular: Yes: Regular Rate and Rhythm Respiratory: Yes: Regular Gastrointestinal: Yes: Normal Bowel Sounds, Soft, Tenderness (minimal lower abd) Genitourinary: Yes: WNL Integumentary: Yes: WNL Neurological: Yes: Alert, Oriented Labs: CBC, BMP 11/23/18 08:35 11/23/18 08:35 INR, PTT INR 1.03 (0.83-1.09) 11/23/18 08:35 Microbiology 11/22/18 18:10 Stool Clostridioides difficile Antigen - Final 11/22/18 18:10 Stool Clostridioides difficile Toxin Assay - Final 11/21/18 10:57 Urine - Urine Clean Catch Urine Culture - Final Problem List - Problems (1) C. difficile diarrhea Code(s): A04.72 - ENTEROCOLITIS D/T CLOSTRIDIUM DIFFICILE, NOT SPCF RECUR (2) Cocaine dependence Code(s): F14.20 - COCAINE DEPENDENCE, UNCOMPLICATED Qualifiers: Substance use status: uncomplicated Qualified Code(s): F14.20 - Cocaine dependence, uncomplicated (3) Splenic infarct Code(s): D73.5 - INFARCTION OF SPLEEN (4) Alcohol dependence Code(s): F10.20 - ALCOHOL DEPENDENCE, UNCOMPLICATED Qualifiers: Substance use status: uncomplicated Qualified Code(s): F10.20 - Alcohol dependence, uncomplicated (5) Cannabis dependence Code(s): F12.20 - CANNABIS DEPENDENCE, UNCOMPLICATED (6) Diarrhea Code(s): R19.7 - DIARRHEA, UNSPECIFIED Qualifiers: Diarrhea type: unspecified type Qualified Code(s): R19.7 - Diarrhea, unspecified (7) Leucopenia Code(s): D72.819 - DECREASED WHITE BLOOD CELL COUNT, UNSPECIFIED (8) Old cerebrovascular accident (CVA) without late effect Code(s): Z86.73 - PRSNL HX OF TIA (TIA), AND CEREB INFRC W/O RESID DEFICITS Assessment/Plan 48 y.o. female with PMH of polysubstance abuse (snorts cocaine, marijuana, denies IVDU), HTN, CVA, duodenal tubular adenoma, GERD, Rt TKR, recent splenic infarct , ? Lupus who underwent lap appendectomy 1 month ago and subsequently developed C. diff Colitis and d/c home on Vancomycin PO which she has been noncompliant with in past several days. Presents with increased diarrhea/bloody , episodes of n/v Diarrhea C.diff Colitis - noncompliant with treatment Eosinophilia Leukopenia Pt with less frequent BMs, non-bloody now, less abd pain -- continue Vancomycin po, d/c Ceftriaxone -- monitor eosinophils, stool o+p sent -- monitor cbc -- monitor vitals, currently afebrile/stable
--- NOTE | 2018-11-23 13:39 | PN ---
Physical Exam: SUBJECTIVE: Patient seen and examined, diarrhea, abdominal pain improved, tolerating diet well. OBJECTIVE: Vital Signs Period Temp Pulse Resp BP Sys/Enriquez Pulse Ox Last 24 Hr 98.0 F-98.4 F 66-92 18-18 109-151/70-97 99 Intake & Output 11/20/18 11/21/18 11/22/18 11/23/18 23:59 23:59 23:59 23:59 Intake Total 900 2120 1800 Output Total 400 Balance 500 2120 1800 Weight 129 lb 12.8 oz GENERAL:lying in bed in no acute distress Chest: CTAB, no rales or wheezing Abdomen;Soft, NT throughout, mild distension that is unchanged, laparscopic site clean, no discharge, no voluntary or involuntary guarding or rigidity, positive bowel sounds Extremities: no edema NecK: soft, supple, no JVD Laboratory Results - last 24 hr 11/21/18 11/22/18 11/23/18 10:00 08:30 08:35 WBC 2.9 L RBC 3.48 L Hgb 11.7 Hct 35.4 MCV 101.8 H MCH 33.6 MCHC 33.0 RDW 17.6 H Plt Count 224 MPV 8.5 Absolute Neuts (auto) 0.9 L Neutrophils % 31.7 L Neutrophils % (Manual) 46.5 Band Neutrophils % 3.0 Lymphocytes % 36.7 Lymphocytes % (Manual) 15.2 Monocytes % 11.6 H Monocytes % (Manual) 5 Eosinophils % 18.8 H Eosinophils % (Manual) 24.2 H Basophils % 1.2 Basophils % (Manual) 2.0 Myelocytes % (Man) 0 Promyelocytes % (Man) 0 Blast Cells % (Manual) 0 Nucleated RBC % 0 Metamyelocytes 0 Hypochromia 0 Platelet Estimate Normal Platelet Comment Present Polychromasia 1+ Poikilocytosis 0 Anisocytosis 1+ Microcytosis 1+ Macrocytosis 1+ Retic Count PT with INR INR Sodium 137 Potassium 4.2 Chloride 101 Carbon Dioxide 25 Anion Gap 11 BUN 5 L Creatinine 0.7 Creat Clearance w eGFR 89.31 Random Glucose 66 L Calcium 8.8 Phosphorus 4.7 Magnesium 2.1 Total Bilirubin 0.4 AST 47 H ALT 22 Alkaline Phosphatase 122 H Troponin I < 0.02 Total Protein 9.3 H Albumin 3.6 11/23/18 11/23/18 11/23/18 08:35 08:35 08:35 WBC RBC Hgb Hct MCV MCH MCHC RDW Plt Count MPV Absolute Neuts (auto) Neutrophils % Neutrophils % (Manual) Band Neutrophils % Lymphocytes % Lymphocytes % (Manual) Monocytes % Monocytes % (Manual) Eosinophils % Eosinophils % (Manual) Basophils % Basophils % (Manual) Myelocytes % (Man) Promyelocytes % (Man) Blast Cells % (Manual) Nucleated RBC % Metamyelocytes Hypochromia Platelet Estimate Platelet Comment Polychromasia Poikilocytosis Anisocytosis Microcytosis Macrocytosis Retic Count 1.58 H PT with INR 12.20 INR 1.03 Sodium 138 Potassium 3.8 Chloride 107 Carbon Dioxide 27 Anion Gap 4 L BUN 2 L* Creatinine 0.6 Creat Clearance w eGFR 106.70 Random Glucose 79 Calcium 8.9 Phosphorus Magnesium Total Bilirubin 0.3 AST 26 ALT 16 Alkaline Phosphatase 105 Troponin I Total Protein 8.0 Albumin 3.0 L Active Medications Generic Name Dose Route Start Last Admin Trade Name Freq PRN Reason Stop Dose Admin Acetaminophen 650 mg 11/22/18 09:43 11/23/18 09:49 Tylenol - PO 650 mg Q4H PRN Administration HEADACHE Amlodipine Besylate 2.5 mg 11/22/18 10:00 11/23/18 09:54 Norvasc - PO 2.5 mg DAILY [facility] Administration Enoxaparin Sodium 90 mg 11/22/18 10:00 11/23/18 09:54 Lovenox - SQ 90 mg DAILY [facility] Administration Sodium Chloride 1,000 mls @ 100 mls/hr 11/21/18 17:00 11/23/18 08:40 Normal Saline - IV 100 mls/hr ASDIR K[facility] Administration Lactobacillus Acidophilus 1 tab 11/22/18 10:00 11/23/18 09:54 Bacid - PO 1 tab DAILY [facility] Administration Thiamine HCl 100 mg 11/22/18 10:00 11/23/18 09:54 Vitamin B1 - PO 100 mg DAILY [facility] Administration Vancomycin HCl 500 mg 11/21/18 18:00 11/23/18 07:27 Vancomycin Oral Solution PO Not Given Q6HPO [facility] Warfarin Sodium 5 mg/ Warfarin 8 mg 11/23/18 18:00 Sodium 3 mg PO DAILY@1800 [facility] Microbiology 11/22/18 18:10 Stool Clostridioides difficile Antigen - Final 11/22/18 18:10 Stool Clostridioides difficile Toxin Assay - Final 11/21/18 10:57 Urine - Urine Clean Catch Urine Culture - Final ASSESSMENT/PLAN: 48 HTN, polysubstance abuse (cocaine, marijuana), 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), duodenal tubular adenoma, splenic infarct 09/2018 (non compliant with AC), recent lap appendectomy 10/23/2018, course complicated by C difficile Diarrhea discharge on lovenox/coumadin bridging and oral vancomycin, non compliant comes with nausea, vomiting, abdominal pain, reported bloody diarrhea, dysuria -Acute diffuse colitis, suspicous for C difficile given non compliance, r/o other infectious/inflammatory etiology -Acute lower uncomplicated UTI -Prolonged QTc -Eosniphilia -Recent splenic infarct -Polysubstance abuse (cocaine, marihuana, alcohol) -HTN -Duodenal tubular adenoma -CVA 2002 -Non compiance Plan: Clinically improved. Follow up stool studies. PO Vancomycin. Urine cx neg. Ceftriaxone d/jordyn GI/Surgery/ID input noted. Eosinophlia improved. Heme consulted. Monitor QTc Decrease IVF. No concerns of bleed inhouse. Continue lovenox, continue coumadin 8 mg dialy. Reports of blood in stools, but FOBT neg, h/h and hemodynamics stable. Continue amlodipine. Hold Metoprolol given active cocaine use. Repeat drug screen noted. Detox consult DVTPPX as above Dispo in 24 hours on oral vancomycin if no concerns. Plan discussed with patient and nursing, all questions answered. Visit type - Emergency Visit Emergency Visit: Yes ED Registration Date: 11/21/18 Care time: The patient presented to the Emergency Department on the above date and was hospitalized for further evaluation of their emergent condition. - New Patient This patient is new to me today: No - Critical Care Critical Care patient: No - Discharge Referral Referred to [facility] Med [facility].C.: No
[2018-11-23 14:42] VITALS: BMI 17.4
--- NOTE | 2018-11-23 15:46 | CONSULT ---
Consult Consult Specialty:: Hematology Referred by:: Medicine Reason for Consultation:: Eosinophilia - History of Present Illness Chief Complaint: Presented with nausea, vomiting, diarrhea, abdominal pain and dysuria, History of Present Illness: Admission history as below: 48 yof with PMHx of HTN, polysubstance abuse (cocaine, marijuana), CVA 2002 ( with residual R sided weakness), duodenal tubular adenoma, splenic infarct 2018 (non compliant with AC), recent lap appendectomy 10/23/2018, course complicated by C difficile Diarrhea discharge on lovenox/coumadin bridging and oral vancomycin, non compliant with ED, multiple ED visits since her dc when was sent scripts for lovenox/vancomycin, recently at [facility], comes today with 2-3 days of nausea, vomiting, diarrhea, abdominal pain and dysuria, Reports multiple episodes of vomitus, initially food, then bilious, associated with diarrhea with reported blood/mucous, and sharp lower abdominal pain. Also reports some serous discharge from laparoscopic site and dysuria. No fevers, chills. Had tray in front of her in the ED when seen, reported was starving and wanted to eat. No vomitting/diarrhea, noted in the ED, FOBT neg. Reports not taking her lovenox last few days, also not taking her coumadin and vancomycin as 'was not given scripts' Last use cocaine/marihuana yesterday, with beer. Present consult for eosinophilia, present since admission on 11/21, but noted to have been present even on 11/04. Not present prior to that. Patient on questioning reports she had a annular rash on her R forearm, noted about 2 weeks ago, now resolving. 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 positive for lupus anticoagulant 09/16, negative end of September, pending confirmatory testing in 12 wks) - Past Surgical History Past Surgical History: Yes: Appendectomy (lap appy 10/23/18), Colonoscopy, Hernia Repair (right lower quadrant, ?with mesh per pt?, and perioperative drains?), Joint Replacement (R knee), Upper Endoscopy - Alcohol/Substance Use Hx Alcohol Use: Yes History of Substance Use: reports: Cocaine ("when I want to," nasal), Marijuana ("when I can") Date of Last Use: 11/20/18 - Smoking History Smoking history: Never smoked Have you smoked in the past 12 months: No Aproximately how many cigarettes per day: 0 - Social History Usual Living Arrangement: With Child (left daughter's yesterday) ADL: Independent History of Recent Travel: No Home Medications - Allergies Allergies/Adverse Reactions: Allergies Allergy/AdvReac Type Severity Reaction Status Date / Time beeswax Allergy Severe Difficulty Verified 11/21/18 08:14 Breathing coconut oil Allergy Severe Itching Verified 11/21/18 08:14 No Known Drug Allergies Allergy Verified 11/21/18 08:14 - Home Medications Home Medications: Ambulatory Orders Amlodipine Besylate [Norvasc -] 2.5 mg PO DAILY #30 tablet 11/04/18 Metoprolol Tartrate [Lopressor -] 12.5 mg PO BID #60 tablet 11/04/18 Omeprazole 20 mg PO DAILY 11/04/18 Thiamine HCl [Vitamin B-1] 100 mg PO DAILY #30 tablet 11/04/18 Warfarin Sodium [Coumadin] 8 mg PO DAILY #60 tablet 11/04/18 Enoxaparin Sodium [Lovenox] 80 mg SQ DAILY 11/05/18 Lactobacillus Acidophilus [Bacid -] 1 each PO DAILY 11/06/18 Vancomycin HCl [Vancocin HCl] 250 mg PO Q6H MDD 48 11/06/18 Family Disease History - Family Disease History Family Disease History: Diabetes: Mother (), Heart Disease: Mother, Other: Father (), Mother Review of Systems Findings/Remarks: See detailed ROS in man complaint. Physical Exam Vital Signs: Vital Signs Temperature 97.6 F 11/23/18 15:00 Pulse Rate 76 11/23/18 15:00 Respiratory Rate 18 11/23/18 15:00 Blood Pressure 121/97 11/23/18 15:00 O2 Sat by Pulse Oximetry (%) 99 11/23/18 09:00 Constitutional: Yes: Well Nourished, No Distress, Calm Eyes: Yes: Conjunctiva Clear Neck: Yes: Supple, Trachea Midline. No: Lymphadenopathy Cardiovascular: Yes: Gallop, Murmur. No: S1, S2 Respiratory: Yes: Regular, CTA Bilaterally Gastrointestinal: Yes: Normal Bowel Sounds, Abdomen, Obese. No: Ascites, Hepatomegaly, Splenomegaly Extremities: Yes: WNL Edema: No Peripheral Pulses WNL: Yes Integumentary: Yes: Other (Approx 32 inch annular skin lesion, healing - ?tinea - R forearm.) Neurological: Yes: Alert, Oriented ...Motor Strength: WNL Psychiatric: Yes: WNL Labs: CBC, BMP 11/23/18 08:35 11/23/18 08:35 Assessment/Plan 48 yo/f, multiple issues described with acute onset mild eosinophilia, of unclear etiology. Pattern of onset suggests a reactive process, infectious (? fungal skin infection) vs allergic. Would observe for now, with expectation that eosinophil count will normalize. Daily CBCs with WC differentials. If persists, then a more detailed workup for a causative etiology would be warranted. May then consider a primary hematological process, but index of suspicion is low. Noted also to be progressively neutropenic - non-specfic finding in current context - noted - close observation for now. History of recent splenic infarct - ongoing anticoagulation recommended for now , as before.
[2018-11-23] MEDS ORDERED: WARFARIN NA 5 MG TABLET (UD) ONE (17:18)
[2018-11-23] MEDS ORDERED: WARFARIN NA 3 MG TABLET ONE (17:19)
[2018-11-23] MEDS ORDERED: WARFARIN NA 5 MG, WARFARIN NA 3 MG PO SCH (18:00)
[2018-11-23] MEDS ORDERED: WARFARIN NA 2 MG TABLET (UD) PO SCH (18:00)
[2018-11-24] MEDS: ACETAMINOPHEN 325 MG TABLET (FP) PO PRN ×2 (06:26→11:15)
[2018-11-24] MEDS: VANCOMYCIN 250 MG/5 ML ORAL SOLUTION PO SCH ×2 (06:39→13:15)
[2018-11-24 07:32] LABS: BASO % 0.8 % (0-2.0); EOS % 12.5 % (0-4.5); HEMOGLOBIN 11.1 GM/dL (10.7-15.3); LYMPH % 38.9 % (8-40); MCH 34.6 pg (25.7-33.7); MCHC 33.6 g/dl (32.0-36.0); MEAN PLT VOLUME 8.8 fl (7.5-11.1); MONO % 10.7 % (3.8-10.2); NEUT % 37.1 % (42.8-82.8); PLATELET COUNT 224 K/MM3 (134-434); RBC 3.21 M/mm3 (3.60-5.2); RDW 17.4 % (11.6-15.6); WHITE BLOOD COUNT 3.3 K/mm3 (4.0-10.0)
[2018-11-24 07:37] LABS: INR 1.08 (0.83-1.09); PROTHROMBIN TIME (PATIENT) 12.7 SEC (9.7-13.0)
[2018-11-24 07:58] LABS: ALK PHOS 96 U/L (45-117); ANION GAP 5 MMOL/L (8-16); BILIRUBIN,TOTAL 0.1 mg/dL (0.2-1); BLOOD UREA NITROGEN 6 mg/dL (7-18); CALCIUM 8.8 mg/dL (8.5-10.1); CHLORIDE 106 mmol/L (98-107); CO2 28 mmol/L (21-32); CREATININE 0.6 mg/dL (0.55-1.3); GLUCOSE,RANDOM 90 mg/dL (74-106); SGOT/AST 19 U/L (15-37); SGPT/ALT 14 U/L (13-61); SODIUM 139 mmol/L (136-145)
--- NOTE | 2018-11-24 10:35 | PN ---
Progress Note, Physician History of Present Illness: stable says still having dirrhoea initially also ahd blood looks comfortable - Current Medication List Current Medications: Active Medications Acetaminophen (Tylenol -) 650 mg PO Q4H PRN PRN Reason: HEADACHE Last Admin: 11/24/18 06:26 Dose: 650 mg Amlodipine Besylate (Norvasc -) 2.5 mg PO DAILY [facility] Last Admin: 11/23/18 09:54 Dose: 2.5 mg Enoxaparin Sodium (Lovenox -) 90 mg SQ DAILY [facility] Last Admin: 11/23/18 09:54 Dose: 90 mg Sodium Chloride (Normal Saline -) 1,000 mls @ 100 mls/hr IV ASDIR [facility] Last Admin: 11/23/18 22:31 Dose: 100 mls/hr Lactobacillus Acidophilus (Bacid -) 1 tab PO DAILY [facility] Last Admin: 11/23/18 09:54 Dose: 1 tab Thiamine HCl (Vitamin B1 -) 100 mg PO DAILY [facility] Last Admin: 11/23/18 09:54 Dose: 100 mg Vancomycin HCl (Vancomycin Oral Solution) 500 mg PO Q6HPO [facility] Last Admin: 11/24/18 06:39 Dose: 500 mg Warfarin Sodium 5 mg/ Warfarin (Sodium 3 mg) 8 mg PO DAILY@1800 [facility] Last Admin: 11/23/18 17:43 Dose: 8 mg - Objective Vital Signs: Vital Signs Temperature 98.1 F 11/24/18 06:34 Pulse Rate 63 11/24/18 06:34 Respiratory Rate 20 11/24/18 06:34 Blood Pressure 125/78 11/24/18 06:34 O2 Sat by Pulse Oximetry (%) 99 11/23/18 21:00 Constitutional: Yes: No Distress, Calm Cardiovascular: Yes: Regular Rate and Rhythm Respiratory: Yes: Regular, CTA Bilaterally Gastrointestinal: Yes: Normal Bowel Sounds, Soft, Tenderness Musculoskeletal: Yes: WNL Extremities: Yes: WNL Labs: CBC, BMP 11/24/18 06:10 11/24/18 06:10 INR, PTT INR 1.08 (0.83-1.09) 11/24/18 06:10 Assessment/Plan Problem List - Problems (1) C. difficile diarrhea Code(s): A04.72 - ENTEROCOLITIS D/T CLOSTRIDIUM DIFFICILE, NOT SPCF RECUR (2) Cocaine dependence Code(s): F14.20 - COCAINE DEPENDENCE, UNCOMPLICATED Qualifiers: Substance use status: uncomplicated Qualified Code(s): F14.20 - Cocaine dependence, uncomplicated (3) Splenic infarct Code(s): D73.5 - INFARCTION OF SPLEEN (4) Alcohol dependence Code(s): F10.20 - ALCOHOL DEPENDENCE, UNCOMPLICATED Qualifiers: Substance use status: uncomplicated Qualified Code(s): F10.20 - Alcohol dependence, uncomplicated (5) Cannabis dependence Code(s): F12.20 - CANNABIS DEPENDENCE, UNCOMPLICATED (6) Diarrhea Code(s): R19.7 - DIARRHEA, UNSPECIFIED Qualifiers: Diarrhea type: unspecified type Qualified Code(s): R19.7 - Diarrhea, unspecified (7) Leucopenia Code(s): D72.819 - DECREASED WHITE BLOOD CELL COUNT, UNSPECIFIED (8) Old cerebrovascular accident (CVA) without late effect Code(s): Z86.73 - PRSNL HX OF TIA (TIA), AND CEREB INFRC W/O RESID DEFICITS Assessment/Plan 48 y.o. female with PMH of polysubstance abuse (snorts cocaine, marijuana, denies IVDU), HTN, CVA, duodenal tubular adenoma, GERD, Rt TKR, recent splenic infarct , ? Lupus who underwent lap appendectomy 1 month ago and subsequently developed C. diff Colitis and d/c home on Vancomycin PO which she has been noncompliant with in past several days. Presents with increased diarrhea/bloody , episodes of n/v Diarrhea C.diff Colitis - noncompliant with treatment Eosinophilia Leukopenia plan continue current mgmt monitor dirrhoea rest as per the team
[2018-11-24] MEDS ORDERED: PT OWN MED DRAWER 7, Y5N ONE (11:00)
[2018-11-24] MEDS: LACTOBACILLUS ACIDOPHILUS 1 TABLET PO SCH (11:06)
[2018-11-24] MEDS: ENOXAPARIN NA (PORCINE) 100 MG/1 ML DISP.SYRIN SQ SCH (11:06)
[2018-11-24] MEDS: THIAMINE HCL 100 MG TABLET (FP) PO SCH (11:07)
[2018-11-24] MEDS: amLODIPine BESYLATE 2.5 MG TABLET (FP) PO SCH (11:07)
--- NOTE | 2018-11-24 13:49 | DS ---
Physical Exam: SUBJECTIVE: Patient seen and examined, tolerating diet well, no new complaints. OBJECTIVE: Vital Signs Period Temp Pulse Resp BP Sys/Enriquez Pulse Ox Last 24 Hr 97.6 F-99.5 F 63-82 18-20 121-145/78-97 99 PHYSICAL EXAM GENERAL:lying in bed in no acute distress Chest: CTAB, no rales or wheezing Abdomen;Soft, NT throughout, mild distension that is unchanged, laparscopic site clean, no discharge, no voluntary or involuntary guarding or rigidity, positive bowel sounds Extremities: no edema NecK: soft, supple, no JVD LABS Laboratory Results - last 24 hr 11/24/18 11/24/18 11/24/18 06:10 06:10 06:10 WBC 3.3 L RBC 3.21 L Hgb 11.1 Hct 33.0 MCV 103.0 H MCH 34.6 H MCHC 33.6 RDW 17.4 H Plt Count 224 MPV 8.8 Absolute Neuts (auto) 1.2 L Neutrophils % 37.1 L Lymphocytes % 38.9 Monocytes % 10.7 H Eosinophils % 12.5 H Basophils % 0.8 Nucleated RBC % 0 PT with INR 12.70 INR 1.08 Sodium 139 Potassium 4.0 Chloride 106 Carbon Dioxide 28 Anion Gap 5 L BUN 6 L Creatinine 0.6 Creat Clearance w eGFR 106.70 Random Glucose 90 Calcium 8.8 Ferritin 55.6 Total Bilirubin 0.1 L AST 19 ALT 14 Alkaline Phosphatase 96 Total Protein 7.0 Albumin 3.0 L Microbiology 11/22/18 18:10 Stool Gram Stain - Final 11/22/18 18:10 Stool Clostridioides difficile Antigen - Final 11/22/18 18:10 Stool Clostridioides difficile Toxin Assay - Final 11/21/18 10:57 Urine - Urine Clean Catch Urine Culture - Final CT A/p: The lung bases are clear. The liver, spleen, pancreas, adrenal glands and kidneys demonstrate no significant abnormalities. A gallstone is identified within the gallbladder. There is no evidence of intra-abdominal or retroperitoneal lymphadenopathy or fluid collections. There no evidence of pneumoperitoneum, bowel obstruction or intra-abdominal abscess. The there is diffuse colonic thickening with no formed stool present. This is suspicious for a diffuse colitis that appears to involve the rectum as well. Clinical correlation is advised. Colonoscopic follow-up is also recommended. Examination of the pelvis demonstrates no evidence of pelvic masses, fluid collections or lymphadenopathy. There is no evidence of acute bony abnormalities. IMPRESSION: Findings suspicious for diffuse colitis. Clinical correlation and follow-up colonoscopy recommended. Please see above discussion. HOSPITAL COURSE: Date of Admission:11/21/18 Date of Discharge: 11/24/18 Minutes to complete discharge: 40 Discharge Summary Reason For Visit: UTI,CLOSTRIDIUM DIFFICILE DIARRHEA Current Active Problems Abdominal pain (Acute) C. 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 She had CT Abdomen/pelvis with results above, suggestive of diffuse colitis. Her abdominal exam was benign with well healing laparoscopic wounds. She was continued on oral vancomycin and infectious disease was consulted. Her stool C difficile antigen/toxin were negative, Stool wbc and stool ova and parasites were negative as well. She was noted with no episodes of nausea, vomiting during her stay. Her diarrhea was episodic that resolved. She was evaluated by gastroenterology and surgery. She was emperically placed on ceftriaxone that was discontinued once her urine cultures came back negative. She was noted with leucopenia and eosinophlia, hematology was consulted. Her eosinophila and WBC count improved and she is advised outpatient monitoring and additional work up if persistent. She was resumed on lovenox and coumadin. Her metoprolol was discontinued given active cocaine use. Extensive counseling has been provided on the need for compliance and close monitoring while on lovenox/coumadin and need for close outpatient follow up with the providers. She will be discharged in stable condition. Condition: Stable - Instructions Diet, Activity, Other Instructions: You were admitted with belly pain and diarrhea. You CT scan suggested colitis. You were placed on antibiotics. You were seen by gastroenterology, surgery, hematology and infectious disease. MEDICATIONS: Lovenox 90 mg daily (additional 10 day prescription provided) Coumadin 8 mg orally daily (INR check in 3 days, start only when you able to follow up for INR check in 3 days) STOP your metoprolol (Do not take with active cocaine use) Continue other medications as before INSTRUCTIONS: Antibiotic vancomycin 4 tmes daily for 10 days Lovenox 90 mg subq daily till INR above 2 You are advised to take coumadin 8 mg daily and strict INR check with your doctor in 3 days. Please note that taking coumadin or lovenox without blood work monitoring can greatly increase risk of bleeding. INR range needs to 2-3 and in unmonitored setting, it can rise higher and if blood thinners are taken without appropriate monitoring, greatly increase risk of bleeding and . It is very important that you follow up with your doctor in 3-5 days to get your INR COntinue lovenox injections and start coumadin only when you can ensure follow up INR check in 3 days. 10 days lovenox injections have been provided currently. You are advised total of 3 months of blood thinners since your have been put on them. Low residue lactose free diet. Follow up with rehabilitation construction specialist to mointor your blood counts including WBC and eosinophils. You are strongly advised to have regular medical check and monitoring as highlighted. FOLLOW UP: With Dr. Remberto Rangel ([facility] [place] in 3-5 days) Blood work INR and CBC in 3 day with the doctor Gastroengerology and surgery follow up in 1-2 weeks If you notice any new fevers, chills, bleeding, dark or bloody stool, inability to eat or any new concerns, please call 911 or come to the ED. Referrals: Remberto Rangel MD [Staff Physician] - Filiberto Vail MD [Staff Physician] - Lisa Wyatt DO [Staff Physician] - Antione Hdz MD [Staff Physician] - Disposition: HOME - Home Medications Comprehensive Discharge Medication List: Ambulatory Orders Amlodipine Besylate [Norvasc -] 2.5 mg PO DAILY #30 tablet 11/04/18 Omeprazole 20 mg PO DAILY 11/04/18 Thiamine HCl [Vitamin B-1] 100 mg PO DAILY #30 tablet 11/04/18 Warfarin Sodium [Coumadin] 8 mg PO DAILY #60 tablet 11/04/18 Lactobacillus Acidophilus [Bacid -] 1 each PO DAILY 11/06/18 Enoxaparin [Lovenox -] 90 mg SQ DAILY 10 Days #10 disp.syrin 11/24/18 Vancomycin HCl [Vancocin HCl] 250 mg PO Q6H 10 Days #40 capsule MDD 48 11/24/18 This patient is new to me today: No Emergency Visit: Yes ED Registration Date: 11/21/18 Care time: The patient presented to the Emergency Department on the above date and was hospitalized for further evaluation of their emergent condition. Critical Care patient: No - Discharge Referral Referred to [facility] Med P.C.: No
[2018-11-24 14:49] VITALS: BP 126/75; PULSE 61; TEMP 98.9
[2018-11-25 04:15] LABS: SERUM IRON SATURATION 14 % (15-55); TOTAL IRON BINDING CAPACITY 267 ug/dL (250-450); UIBC 229 ug/dL (131-425)
== END 2018-11-24 17:35 | disposition home or self-care (01) | DRG 248 ==
LOC: JER 07:57 → JERBED 15:42 → J8W 20:20
PROVIDERS: ADMIT Hospitalist; ATTEND Hospitalist
DX: A04.72 Enterocolitis due to Clostridium difficile, not specified as recurrent (principal); N39.0 Urinary tract infection, site not specified; D72.829 Elevated white blood cell count, unspecified; D13.2 Benign neoplasm of duodenum; K76.0 Fatty (change of) liver, not elsewhere classified; G81.91 Hemiplegia, unspecified affecting right dominant side; K21.9 Gastro-esophageal reflux disease without esophagitis; I44.0 Atrioventricular block, first degree; F14.20 Cocaine dependence, uncomplicated; F10.10 Alcohol abuse, uncomplicated; F12.20 Cannabis dependence, uncomplicated; I10 Essential (primary) hypertension; I45.81 Long QT syndrome; F32.9 Major depressive disorder, single episode, unspecified; D73.5 Infarction of spleen; R10.33 Periumbilical pain; Z96.651 Presence of right artificial knee joint; Z91.14 Patient's other noncompliance with medication regimen
CPT/HCPCS: 36415; 71045-TC-FY; 74177-TC; 80053; 80307; 81003; 82272; 82728; 83540; 83550; 83735; 84100; 84484; 84703; 85025; 85044; 85610; 85730; 86850; 86900; 86901; 87086; 87177; 87205; 87209; 87324; 87449; 99282-25; J0131; J7030

== ENCOUNTER 2018-12-01 18:41 | Inpatient (IN) | payer OTHER ==
[2018-12-01 19:49] VITALS: BMI 18.6
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
[2018-12-01] MEDS ORDERED: MAGNESIUM HYDROX 2400MG/30ML ORAL SUSPENSION 30 ML CUP PO PRN (21:07)
[2018-12-01] MEDS ORDERED: chlordiazePOXIDE HCL 25 MG CAPSULE PO PRN (21:07)
[2018-12-01] MEDS ORDERED: MENTHOL/PHENOL 1 EACH UD MM PRN (21:07)
[2018-12-01] MEDS ORDERED: MAGNESIUM CITRATE 300 ML BOTTLE PO PRN (21:07)
[2018-12-01] MEDS ORDERED: METHOCARBAMOL 500 MG TABLET PO PRN (21:07)
[2018-12-01] MEDS ORDERED: BISMUTH SUBSALICYLATE 524 MG/30 ML UD PO PRN (21:07)
[2018-12-01] MEDS ORDERED: MAG HYDROX/AL HYDROX/SIMETH 30 ML UNIT-DOSE CUP PO PRN (21:07)
[2018-12-01] MEDS ORDERED: ACETAMINOPHEN 325 MG TABLET (FP) PO PRN (21:07)
[2018-12-01] MEDS ORDERED: hydrOXYzine PAMOATE 25 MG CAPSULE (FP) PO PRN (21:07)
[2018-12-01] MEDS ORDERED: IBUPROFEN 400 MG TABLET (FP) PO PRN (21:07)
[2018-12-01] MEDS: THIAMINE HCL 100 MG TABLET (FP) PO SCH (22:32)
[2018-12-01] MEDS: chlordiazePOXIDE HCL 25 MG CAPSULE PO SCH (22:32)
[2018-12-01] MEDS: MELATONIN 5 MG TABLETS PO PRN (22:33)
[2018-12-02] MEDS: chlordiazePOXIDE HCL 25 MG CAPSULE PO SCH ×4 (05:24→22:10)
[2018-12-02] MEDS: ACETAMINOPHEN 325 MG TABLET (FP) PO PRN ×3 (05:25→22:42)
[2018-12-02 10:02] LABS: INR 0.99 (0.83-1.09); PROTHROMBIN TIME (PATIENT) 11.7 SEC (9.7-13.0)
[2018-12-02 10:13] LABS: ALBUMIN 3.1 g/dl (3.4-5.0); ALK PHOS 105 U/L (45-117); ANION GAP 7 MMOL/L (8-16); BILIRUBIN,TOTAL 0.2 mg/dL (0.2-1); BLOOD UREA NITROGEN 16 mg/dL (7-18); CALCIUM 8.3 mg/dL (8.5-10.1); CHLORIDE 106 mmol/L (98-107); CO2 28 mmol/L (21-32); CREATININE 0.6 mg/dL (0.55-1.3); GLUCOSE,RANDOM 70 mg/dL (74-106); POTASSIUM 4.3 mmol/L (3.5-5.1); SGOT/AST 47 U/L (15-37); SGPT/ALT 22 U/L (13-61); SODIUM 141 mmol/L (136-145); TOT PROT 7.4 g/dl (6.4-8.2)
[2018-12-02] MEDS: amLODIPine BESYLATE 5 MG TABLET (FP) PO SCH (10:15)
[2018-12-02] MEDS: PRENATAL VITAMINS W/ FOLIC ACID TABLET (FP) PO SCH (10:15)
[2018-12-02 10:20] LABS: HEMATOCRIT 32.8 % (32.4-45.2); HEMOGLOBIN 10.9 GM/dL (10.7-15.3); MCH 33.7 pg (25.7-33.7); MCHC 33.2 g/dl (32.0-36.0); MEAN CELL VOLUME 101.3 fl (80-96); MEAN PLT VOLUME 8.6 fl (7.5-11.1); PLATELET COUNT 291 K/MM3 (134-434); RBC 3.24 M/mm3 (3.60-5.2); RDW 16.5 % (11.6-15.6)
--- NOTE | 2018-12-02 13:30 | PN ---
[facility] CIWA - CIWA Score Nausea/Vomitin-Mild Nausea/No Vomiting Muscle Tremors: 3 Anxiety: 3 Agitation: 2 Paroxysmal Sweats: 1-Minimal Palms Moist Orientation: 2-Disoriented Date<2 days Tacttile Disturbances: 0-None Auditory Disturbances: 0-None Visual Disturbances: 0-None Headache: 0-None Present CIWA-Ar Total Score: 12 S Progress Note (SOAP) Subjective: patient is doing well with librium alcohol detox protocol patient admitted that not taking SQ nor coumadin x "days" INR 0.99 target INR 2.0 resume coumadin and lovenox repeat INR on 12/04/18 discuss risks of none adherence with medication Objective: 12/02/18 13:33 Vital Signs Temperature 96.7 F L 12/02/18 09:06 Pulse Rate 69 12/02/18 09:06 Respiratory Rate 18 12/02/18 09:06 Blood Pressure 142/92 12/02/18 09:06 O2 Sat by Pulse Oximetry (%) Laboratory Last Values WBC 3.0 K/mm3 (4.0-10.0) L 12/02/18 07:00 RBC 3.24 M/mm3 (3.60-5.2) L 12/02/18 07:00 Hgb 10.9 GM/dL (10.7-15.3) 12/02/18 07:00 Hct 32.8 % (32.4-45.2) 12/02/18 07:00 MCV 101.3 fl (80-96) H 12/02/18 07:00 MCH 33.7 pg (25.7-33.7) 12/02/18 07:00 MCHC 33.2 g/dl (32.0-36.0) 12/02/18 07:00 RDW 16.5 % (11.6-15.6) H 12/02/18 07:00 Plt Count 291 K/MM3 (134-434) D 12/02/18 07:00 MPV 8.6 fl (7.5-11.1) 12/02/18 07:00 PT with INR 11.70 SEC (9.7-13.0) 12/02/18 07:00 INR 0.99 (0.83-1.09) 12/02/18 07:00 Sodium 141 mmol/L (136-145) 12/02/18 07:00 Potassium 4.3 mmol/L (3.5-5.1) 12/02/18 07:00 Chloride 106 mmol/L (98-107) 12/02/18 07:00 Carbon Dioxide 28 mmol/L (21-32) 12/02/18 07:00 Anion Gap 7 MMOL/L (8-16) L 12/02/18 07:00 BUN 16 mg/dL (7-18) 12/02/18 07:00 Creatinine 0.6 mg/dL (0.55-1.3) 12/02/18 07:00 Creat Clearance w eGFR 106.70 (>60) 12/02/18 07:00 Random Glucose 70 mg/dL (74-106) L 12/02/18 07:00 Calcium 8.3 mg/dL (8.5-10.1) L 12/02/18 07:00 Total Bilirubin 0.2 mg/dL (0.2-1) 12/02/18 07:00 AST 47 U/L (15-37) H 12/02/18 07:00 ALT 22 U/L (13-61) 12/02/18 07:00 Alkaline Phosphatase 105 U/L (45-117) 12/02/18 07:00 Total Protein 7.4 g/dl (6.4-8.2) 12/02/18 07:00 Albumin 3.1 g/dl (3.4-5.0) L 12/02/18 07:00 lab noted Assessment: 12/02/18 13:33 alcohol withdrawal sx blood clot Plan: continue alcohol detox resume lovenox and coumadin strong recommend the patient follow up with hemotologist dr kathy wilkerson
--- NOTE | 2018-12-02 14:19 | EKG ---
Test Reason : Blood Pressure : / mmHG Vent. Rate : 073 BPM Atrial Rate : 073 BPM P-R Int : 178 ms QRS Dur : 086 ms QT Int : 444 ms P-R-T Axes : 027 091 072 degrees QTc Int : 489 ms NORMAL SINUS RHYTHM RIGHTWARD AXIS SEPTAL INFARCT , AGE UNDETERMINED ABNORMAL ECG WHEN COMPARED WITH ECG OF 19-OCT-2018 00:25, NO SIGNIFICANT CHANGE WAS FOUND Confirmed by Maurice Phillips MD ([id number]) on 12/02/2018 2:19:13 PM Referred By: Confirmed By:Maurice Phillips MD
[2018-12-02] MEDS: WARFARIN NA 5 MG, WARFARIN NA 3 MG PO SCH (17:15)
[2018-12-02] MEDS: ENOXAPARIN NA (PORCINE) 100 MG/1 ML DISP.SYRIN SQ SCH (17:47)
[2018-12-02] MEDS ORDERED: WARFARIN NA 7.5 MG TABLET (FP) PO SCH (18:00)
[2018-12-02] MEDS: VANCOMYCIN 250 MG/5 ML ORAL SOLUTION PO SCH ×2 (20:48→23:22)
[2018-12-02] MEDS: THIAMINE HCL 100 MG TABLET (FP) PO SCH (22:10)
[2018-12-02] MEDS: MELATONIN 5 MG TABLETS PO PRN (22:10)
[2018-12-03] MEDS: chlordiazePOXIDE HCL 25 MG CAPSULE PO SCH ×3 (05:49→17:21)
[2018-12-03] MEDS: ACETAMINOPHEN 325 MG TABLET (FP) PO PRN (05:50)
[2018-12-03] MEDS: VANCOMYCIN 250 MG/5 ML ORAL SOLUTION PO SCH ×4 (05:51→23:28)
[2018-12-03] MEDS: ENOXAPARIN NA (PORCINE) 100 MG/1 ML DISP.SYRIN SQ SCH (09:32)
[2018-12-03] MEDS: PRENATAL VITAMINS W/ FOLIC ACID TABLET (FP) PO SCH (10:08)
[2018-12-03] MEDS: amLODIPine BESYLATE 5 MG TABLET (FP) PO SCH (10:08)
--- NOTE | 2018-12-03 15:10 | CONSULT ---
[facility] Psychiatric Consult - Data Date of interview: 12/03/18 Admission source: [facility] Identifying data: Readmission to [facility] for this 48 y/o AA female self- referred for detoxification (alcohol, cocaine, cannabis). Examined at [address] [place] [address]. Patient is , a mother of five, domiciled (lives with one daughter), unemployed and supported on welfare. Substance Abuse History: Confirmed by the patient in this session. Details in current [facility] report : Smoking history: Never smoked. Have you smoked in the past 12 months: No. Aproximately how many cigarettes per day: 0. Cigars Per Day: 0. Hx Chewing Tobacco Use: No. Initiated information on smoking cessation : No. - Substance & Tx. History. Hx Alcohol Use: Yes. Hx Substance Use: Yes. Substance Use Type: Cocaine, Marijuana. Hx Substance Use Treatment: Yes ([facility] ). - Substances abused. Marijuana/Hashish. Substance route: Smoking. Frequency: Daily. Amount used: 3-4 BLUNTS. Age of first use: 16. Date of last use: 12/01/18. Cocaine. Substance route: Smoking. Frequency: 1-3 times last 30 days. Amount used: I CANT TELL YOU. Age of first use: 25. Date of last use: 11/29/18. Alcohol. Substance route: Oral. Frequency: Daily. Amount used: 3 - 6 x 22 oz beer. Age of first use: 18. Date of last use: 12/01 Medical History: Medical profile is remarkable for hypertension, GERD, bronchial asthma, antecedent of urinary tract infection, anemia, liver disease ( fatty liver), cerebrovascular accident (CVA) + left sided weakness in 2002, adenoma of duodenum, hemorrhoids, heart murmur and a history of surgeries ( appendectomy, splenectomy, right knee replacement, right inguinal herniorraphy) . Patient is currently on anticoagulant therapy. Psychiatric History: No reported history of psychiatric hospitalizations or OPD care. Patient indicates that she has been medicated with seroquel (prior admissions to [facility] detox/rehabilitation units).Admits to one suicide attempts ( overdose with pills) at age 25. Physical/Sexual Abuse/Trauma History: Patient denies. Additional Comment: Urine drug screen results: THC-Marijuana, MONISHA-Cocaine. Noted. Mental Status Exam - Mental Status Exam Alert and Oriented to: Time, Place, Person Cognitive Function: Good Patient Appearance: Disheveled, Bizarre Mood: Nervous, Withdrawn, Apprehensive, Irritable Affect: Mood Congruent, Constricted Patient Behavior: Fatigued, Cooperative Speech Pattern: Clear Voice Loudness: Normal Thought Process: Goal Oriented Thought Disorder: Not Present Hallucinations: Denies Suicidal Ideation: Denies Homicidal Ideation: Denies Insight/Judgement: Poor Sleep: Poorly, Difficulty falling asleep Appetite: Good Gait/Station: Normal Psychiatric Findings - Problem List ([place] 1, 2,3) (1) Alcohol dependence with uncomplicated withdrawal Current Visit: Yes Status: Acute (2) Cannabis dependence Current Visit: Yes Status: Chronic (3) Cocaine dependence Current Visit: Yes Status: Chronic Qualifiers: Substance use status: uncomplicated Qualified Code(s): F14.20 - Cocaine dependence, uncomplicated (4) Substance induced mood disorder Current Visit: Yes Status: Chronic (5) Insomnia Current Visit: Yes Status: Chronic Qualifiers: Insomnia type: drug-induced Qualified Code(s): F19.982 - Other psychoactive substance use, unspecified with psychoactive substance-induced sleep disorder - Initial Treatment Plan Initial Treatment Plan: Psychoeducation. Sleep hygiene. Detoxification. Seroquel 50 mg po hs (patient's request). Side effects/benefits discussed with patient. Consent (verbal) given to MD. Sommers.
--- NOTE | 2018-12-03 16:38 | PN ---
S CIWA - CIWA Score Nausea/Vomitin-No Nausea/No Vomiting Muscle Tremors: 2 Anxiety: 2 Agitation: 2 Paroxysmal Sweats: 1-Minimal Palms Moist Orientation: 0-Oriented Tacttile Disturbances: 0-None Auditory Disturbances: 0-None Visual Disturbances: 0-None Headache: 1-Very Mild CIWA-Ar Total Score: 8 S Progress Note (SOAP) Subjective: taking seroquel 200 mg po daily last dose unknown psychiatric referral Objective: 12/03/18 16:35 Vital Signs Temperature 97.0 F L 12/03/18 14:11 Pulse Rate 84 12/03/18 14:11 Respiratory Rate 18 12/03/18 14:11 Blood Pressure 123/99 12/03/18 14:11 O2 Sat by Pulse Oximetry (%) Laboratory Last Values WBC 3.0 K/mm3 (4.0-10.0) L 12/02/18 07:00 RBC 3.24 M/mm3 (3.60-5.2) L 12/02/18 07:00 Hgb 10.9 GM/dL (10.7-15.3) 12/02/18 07:00 Hct 32.8 % (32.4-45.2) 12/02/18 07:00 MCV 101.3 fl (80-96) H 12/02/18 07:00 MCH 33.7 pg (25.7-33.7) 12/02/18 07:00 MCHC 33.2 g/dl (32.0-36.0) 12/02/18 07:00 RDW 16.5 % (11.6-15.6) H 12/02/18 07:00 Plt Count 291 K/MM3 (134-434) D 12/02/18 07:00 MPV 8.6 fl (7.5-11.1) 12/02/18 07:00 PT with INR 11.70 SEC (9.7-13.0) 12/02/18 07:00 INR 0.99 (0.83-1.09) 12/02/18 07:00 Sodium 141 mmol/L (136-145) 12/02/18 07:00 Potassium 4.3 mmol/L (3.5-5.1) 12/02/18 07:00 Chloride 106 mmol/L (98-107) 12/02/18 07:00 Carbon Dioxide 28 mmol/L (21-32) 12/02/18 07:00 Anion Gap 7 MMOL/L (8-16) L 12/02/18 07:00 BUN 16 mg/dL (7-18) 12/02/18 07:00 Creatinine 0.6 mg/dL (0.55-1.3) 12/02/18 07:00 Creat Clearance w eGFR 106.70 (>60) 12/02/18 07:00 Random Glucose 70 mg/dL (74-106) L 12/02/18 07:00 Calcium 8.3 mg/dL (8.5-10.1) L 12/02/18 07:00 Total Bilirubin 0.2 mg/dL (0.2-1) 12/02/18 07:00 AST 47 U/L (15-37) H 12/02/18 07:00 ALT 22 U/L (13-61) 12/02/18 07:00 Alkaline Phosphatase 105 U/L (45-117) 12/02/18 07:00 Total Protein 7.4 g/dl (6.4-8.2) 12/02/18 07:00 Albumin 3.1 g/dl (3.4-5.0) L 12/02/18 07:00 POC Urine HCG, Qual Negative 12/01/18 23:56 RPR Titer Nonreactive (NONREACTIVE) 12/02/18 07:00 lab noted Assessment: 12/03/18 16:35 withdrawal sx Plan: continue detox patient stated that she wants to begin adherence with medication till inr up to 2 as per MD planned patient reported that living situation is chaotic compliance with medication is not possible
[2018-12-03] MEDS: WARFARIN NA 5 MG, WARFARIN NA 3 MG PO SCH (17:21)
[2018-12-03] MEDS: THIAMINE HCL 100 MG TABLET (FP) PO SCH (22:01)
[2018-12-03] MEDS: chlordiazePOXIDE HCL 10 MG CAPSULE PO SCH (22:01)
[2018-12-03] MEDS: QUEtiapine FUMARATE 50 MG TABLET PO SCH (22:01)
[2018-12-03] MEDS ORDERED: chlordiazePOXIDE HCL 10 MG CAPSULE PO PRN (23:00)
[2018-12-04] MEDS: chlordiazePOXIDE HCL 10 MG CAPSULE PO SCH ×3 (05:41→17:20)
[2018-12-04] MEDS: ACETAMINOPHEN 325 MG TABLET (FP) PO PRN (05:42)
[2018-12-04] MEDS: VANCOMYCIN 250 MG/5 ML ORAL SOLUTION PO SCH ×4 (05:44→23:00)
[2018-12-04] MEDS: amLODIPine BESYLATE 5 MG TABLET (FP) PO SCH (10:12)
[2018-12-04] MEDS: PRENATAL VITAMINS W/ FOLIC ACID TABLET (FP) PO SCH (10:12)
[2018-12-04] MEDS: ENOXAPARIN NA (PORCINE) 100 MG/1 ML DISP.SYRIN SQ SCH (10:12)
[2018-12-04 10:27] LABS: INR 1.04 (0.83-1.09); PROTHROMBIN TIME (PATIENT) 12.3 SEC (9.7-13.0)
--- NOTE | 2018-12-04 13:28 | PN ---
S CIWA - CIWA Score Nausea/Vomitin-Mild Nausea/No Vomiting Muscle Tremors: 1-None Visible, but [place] Anxiety: 1-Mildly Anxious Agitation: 2 Paroxysmal Sweats: No Perspiration Orientation: 0-Oriented Tacttile Disturbances: 0-None Auditory Disturbances: 0-None Visual Disturbances: 0-None Headache: 0-None Present CIWA-Ar Total Score: 5 [facility] Progress Note (SOAP) Subjective: feeling better ambulating on [address] way social with peers in day room patient agrees to visit hemotologist doctor Abelino Objective: 12/04/18 13:26 Vital Signs Temperature 98.1 F 12/04/18 09:45 Pulse Rate 99 H 12/04/18 09:45 Respiratory Rate 18 12/04/18 09:45 Blood Pressure 112/92 12/04/18 09:45 O2 Sat by Pulse Oximetry (%) Laboratory Last Values WBC 3.0 K/mm3 (4.0-10.0) L 12/02/18 07:00 RBC 3.24 M/mm3 (3.60-5.2) L 12/02/18 07:00 Hgb 10.9 GM/dL (10.7-15.3) 12/02/18 07:00 Hct 32.8 % (32.4-45.2) 12/02/18 07:00 MCV 101.3 fl (80-96) H 12/02/18 07:00 MCH 33.7 pg (25.7-33.7) 12/02/18 07:00 MCHC 33.2 g/dl (32.0-36.0) 12/02/18 07:00 RDW 16.5 % (11.6-15.6) H 12/02/18 07:00 Plt Count 291 K/MM3 (134-434) D 12/02/18 07:00 MPV 8.6 fl (7.5-11.1) 12/02/18 07:00 PT with INR 12.30 SEC (9.7-13.0) 12/04/18 07:00 INR 1.04 (0.83-1.09) 12/04/18 07:00 Sodium 141 mmol/L (136-145) 12/02/18 07:00 Potassium 4.3 mmol/L (3.5-5.1) 12/02/18 07:00 Chloride 106 mmol/L (98-107) 12/02/18 07:00 Carbon Dioxide 28 mmol/L (21-32) 12/02/18 07:00 Anion Gap 7 MMOL/L (8-16) L 12/02/18 07:00 BUN 16 mg/dL (7-18) 12/02/18 07:00 Creatinine 0.6 mg/dL (0.55-1.3) 12/02/18 07:00 Creat Clearance w eGFR 106.70 (>60) 12/02/18 07:00 Random Glucose 70 mg/dL (74-106) L 12/02/18 07:00 Calcium 8.3 mg/dL (8.5-10.1) L 12/02/18 07:00 Total Bilirubin 0.2 mg/dL (0.2-1) 12/02/18 07:00 AST 47 U/L (15-37) H 12/02/18 07:00 ALT 22 U/L (13-61) 12/02/18 07:00 Alkaline Phosphatase 105 U/L (45-117) 12/02/18 07:00 Total Protein 7.4 g/dl (6.4-8.2) 12/02/18 07:00 Albumin 3.1 g/dl (3.4-5.0) L 12/02/18 07:00 POC Urine HCG, Qual Negative 12/01/18 23:56 RPR Titer Nonreactive (NONREACTIVE) 12/02/18 07:00 lab noted Assessment: 12/04/18 13:27 mild alcohol withdrawal sx Plan: continue detox inr monitoring by hemotologist
[2018-12-04] MEDS: WARFARIN NA 5 MG, WARFARIN NA 3 MG PO SCH (17:20)
[2018-12-04] MEDS: QUEtiapine FUMARATE 50 MG TABLET PO SCH (22:12)
[2018-12-04] MEDS: MELATONIN 5 MG TABLETS PO PRN (22:13)
[2018-12-04] MEDS: THIAMINE HCL 100 MG TABLET (FP) PO SCH (22:13)
[2018-12-04] MEDS ORDERED: chlordiazePOXIDE HCL 10 MG CAPSULE PO SCH (23:00)
[2018-12-05 06:18] VITALS: BP 115/86; PULSE 77; TEMP 97
[2018-12-05] MEDS: VANCOMYCIN 250 MG/5 ML ORAL SOLUTION PO SCH (07:20)
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
== END 2018-12-05 08:55 | disposition home or self-care (01) | DRG 774 ==
LOC: YASAS 18:41 → Y3N 21:48
PROVIDERS: ADMIT Surgery; ATTEND Surgery
PROC: HZ2ZZZZ Detoxification Services for Substance Abuse Treatment (ICD-10-PCS; principal; 2018-12-01)
DX: F10.230 Alcohol dependence with withdrawal, uncomplicated (principal); F14.20 Cocaine dependence, uncomplicated; F12.20 Cannabis dependence, uncomplicated; F19.24 Other psychoactive substance dependence with psychoactive substance-induced mood disorder; F19.282 Other psychoactive substance dependence with psychoactive substance-induced sleep disorder; I10 Essential (primary) hypertension; K21.9 Gastro-esophageal reflux disease without esophagitis; J45.909 Unspecified asthma, uncomplicated; K76.0 Fatty (change of) liver, not elsewhere classified; I69.354 Hemiplegia and hemiparesis following cerebral infarction affecting left non-dominant side; R01.1 Cardiac murmur, unspecified; Z85.09 Personal history of malignant neoplasm of other digestive organs; Z91.038 Other insect allergy status; Z87.440 Personal history of urinary (tract) infections; Z79.01 Long term (current) use of anticoagulants; Z91.5 Personal history of self-harm
CPT/HCPCS: 36415; 80053; 81025; 85027; 85610; 86593; 93005; 93010

== ENCOUNTER 2019-01-24 20:36 | Inpatient (IN) | payer OTHER ==
[2019-01-25 00:15] VITALS: BMI 18.6
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
[2019-01-25] MEDS ORDERED: MAGNESIUM CITRATE 300 ML BOTTLE PO PRN (00:34)
[2019-01-25] MEDS ORDERED: MAG HYDROX/AL HYDROX/SIMETH 30 ML UNIT-DOSE CUP PO PRN (00:34)
[2019-01-25] MEDS ORDERED: P-EPHED 60MG/TRIPROLIDI 2.5MG TABLET PO PRN (00:34)
[2019-01-25] MEDS ORDERED: METHOCARBAMOL 500 MG TABLET PO PRN (00:34)
[2019-01-25] MEDS ORDERED: guaiFENesin 200 MG/10 ML 10 ML UNIT-DOSE CUPS PO PRN (00:34)
[2019-01-25] MEDS ORDERED: ONDANSETRON *ODT* 4 MG TABLET SL PRN (00:34)
[2019-01-25] MEDS ORDERED: MAGNESIUM HYDROX 2400MG/30ML ORAL SUSPENSION 30 ML CUP PO PRN (00:34)
[2019-01-25] MEDS ORDERED: hydrOXYzine PAMOATE 25 MG CAPSULE (FP) PO PRN (00:34)
[2019-01-25] MEDS ORDERED: DICYCLOMINE HCL 10 MG CAPSULE PO PRN (00:34)
[2019-01-25] MEDS ORDERED: chlordiazePOXIDE HCL 25 MG CAPSULE PO ONE (00:34)
[2019-01-25] MEDS ORDERED: BISMUTH SUBSALICYLATE 524 MG/30 ML UD PO PRN (00:34)
[2019-01-25] MEDS ORDERED: MELATONIN 5 MG TABLETS PO PRN (00:34)
[2019-01-25] MEDS ORDERED: MENTHOL/PHENOL 1 EACH UD MM PRN (00:34)
[2019-01-25] MEDS ORDERED: ACETAMINOPHEN 325 MG TABLET (FP) PO PRN ×2 (00:34)
[2019-01-25] MEDS ORDERED: chlordiazePOXIDE HCL 25 MG CAPSULE PO PRN (00:34)
[2019-01-25] MEDS: chlordiazePOXIDE HCL 25 MG CAPSULE PO SCH ×4 (06:35→22:05)
[2019-01-25 09:32] LABS: ALBUMIN 3.2 g/dl (3.4-5.0); BILIRUBIN,TOTAL 0.3 mg/dL (0.2-1); BLOOD UREA NITROGEN 9.4 mg/dL (7-18); CALCIUM 8.3 mg/dL (8.5-10.1); CREATININE 0.8 mg/dL (0.55-1.3); POTASSIUM 3.8 mmol/L (3.5-5.1); TOT PROT 7.5 g/dl (6.4-8.2)
[2019-01-25 09:45] LABS: HEMATOCRIT 31.5 % (32.4-45.2); HEMOGLOBIN 10.3 GM/dL (10.7-15.3); MCH 33.1 pg (25.7-33.7); MCHC 32.7 g/dl (32.0-36.0); MEAN CELL VOLUME 101.1 fl (80-96); RBC 3.12 M/mm3 (3.60-5.2); RDW 13.9 % (11.6-15.6)
[2019-01-25] MEDS ORDERED: amLODIPine BESYLATE 5 MG TABLET (FP) PO SCH (10:00)
[2019-01-25] MEDS ORDERED: PRENATAL VITAMINS W/ FOLIC ACID TABLET (FP) PO SCH (10:00)
[2019-01-25] MEDS ORDERED: ENOXAPARIN NA (PORCINE) 100 MG/1 ML DISP.SYRIN SQ SCH (10:00)
[2019-01-25 10:12] LABS: PLATELET COUNT 209 K/MM3 (134-434)
[2019-01-25] MEDS: IBUPROFEN 400 MG TABLET (FP) PO PRN ×2 (13:05→22:06)
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
--- NOTE | 2019-01-25 14:16 | PN ---
[facility] CIWA - CIWA Score Nausea/Vomitin-Mild Nausea/No Vomiting Muscle Tremors: 3 Anxiety: 3 Agitation: 3 Paroxysmal Sweats: 3 Orientation: 0-Oriented Tacttile Disturbances: 0-None Auditory Disturbances: 0-None Visual Disturbances: 0-None Headache: 0-None Present CIWA-Ar Total Score: 13 [facility] Progress Note (SOAP) Subjective: Feels tired, sweating, chills, tremor, interrupted sleep Objective: 01/25/19 14:11 Last Vital Signs Temp Pulse Resp BP Pulse Ox 98.4 F 79 18 144/94 01/25/19 11:26 01/25/19 11:26 01/25/19 11:26 01/25/19 11:26 Elevated b/p (has htn, on medication) Laboratory Tests 01/25/19 01/25/19 01/25/19 07:30 07:30 07:30 WBC 4.0 RBC 3.12 L Hgb 10.3 L Hct 31.5 L MCV 101.1 H MCH 33.1 MCHC 32.7 RDW 13.9 D Plt Count 209 D MPV 9.0 Sodium 142 Potassium 3.8 Chloride 108 H Carbon Dioxide 28 Anion Gap 7 L BUN 9.4 Creatinine 0.8 Est GFR (CKD-EPI)AfAm 101.04 Est GFR (CKD-EPI)NonAf 87.18 Random Glucose 78 Calcium 8.3 L Total Bilirubin 0.3 AST 52 H ALT 41 Alkaline Phosphatase 110 Total Protein 7.5 Albumin 3.2 L POC Urine HCG, Qual RPR Titer Nonreactive 01/25/19 08:40 WBC RBC Hgb Hct MCV MCH MCHC RDW Plt Count MPV Sodium Potassium Chloride Carbon Dioxide Anion Gap BUN Creatinine Est GFR (CKD-EPI)AfAm Est GFR (CKD-EPI)NonAf Random Glucose Calcium Total Bilirubin AST ALT Alkaline Phosphatase Total Protein Albumin POC Urine HCG, Qual Negative RPR Titer Labs reviewed: mild anemia noted Assessment: 01/25/19 14:13 Withdrawal symptoms Plan: Continue detox Encouraged PO water hydration HTN: continue norvasc Mild anemia: has h/o anemia and not on medication as per chart review; could be r/t substance use, follow up with PCP for iron studies and management
[2019-01-25 17:35] LABS: EPI CELLS 6.8 /HPF (0-5/HPF); HYALINE CASTS 4 /lpf (0-8); URINE APPEARANCE TURBID; URINE BACTERIA 170.2 /hpf (NEGATIVE); URINE BILIRUBIN NEGATIVE (NEGATIVE); URINE COLOR YELLOW; URINE GLUCOSE (UA) NEGATIVE (NEGATIVE); URINE KETONE TRACE (NEGATIVE); URINE LEUK ESTERASE 1+ (NEGATIVE); URINE NITRITE NEGATIVE (NEGATIVE); URINE PROTEIN TRACE (NEGATIVE); URINE RBC 1 /hpf (0-4); URINE UROBILINOGEN 0.2 mg/dL (0.2-1.0); URINE WBC 9 /hpf (0-5)
[2019-01-25] MEDS ORDERED: WARFARIN NA 2 MG TABLET (UD) PO SCH (18:00)
[2019-01-25] MEDS ORDERED: THIAMINE HCL 100 MG TABLET (FP) PO SCH (22:00)
[2019-01-25] MEDS ORDERED: SUVOREXANT 10 MG TABLET PO PRN (22:00)
[2019-01-26] MEDS ORDERED: chlordiazePOXIDE HCL 25 MG CAPSULE PO SCH (05:00)
[2019-01-26 09:20] VITALS: BP 140/77; PULSE 87; TEMP 97.7
--- NOTE | 2019-01-26 09:31 | PN ---
S Progress Note Note: pt arrived in withdrawals. pt c/o withdrawal symptoms and aggressive symptomatic management attempted however pt in spite of extensive motivational counseling regarding the risk of relapse, DT's, seizures and or loss, pt chose to sign out.
[2019-01-27] MEDS ORDERED: chlordiazePOXIDE HCL 10 MG CAPSULE PO PRN (05:00)
[2019-01-27] MEDS ORDERED: chlordiazePOXIDE HCL 10 MG CAPSULE PO SCH (05:00)
[2019-01-28] MEDS ORDERED: chlordiazePOXIDE HCL 10 MG CAPSULE PO SCH (05:00)
== END 2019-01-26 09:40 | disposition left against medical advice (07) | DRG 770 ==
LOC: YASAS 20:36 → Y6N 23:44
PROVIDERS: ADMIT Surgery; ATTEND Surgery
PROC: HZ2ZZZZ Detoxification Services for Substance Abuse Treatment (ICD-10-PCS; principal; 2019-01-24)
DX: F10.230 Alcohol dependence with withdrawal, uncomplicated (principal); F12.20 Cannabis dependence, uncomplicated; F14.10 Cocaine abuse, uncomplicated; F19.24 Other psychoactive substance dependence with psychoactive substance-induced mood disorder; F19.282 Other psychoactive substance dependence with psychoactive substance-induced sleep disorder; I10 Essential (primary) hypertension; D64.9 Anemia, unspecified; K21.9 Gastro-esophageal reflux disease without esophagitis; J44.9 Chronic obstructive pulmonary disease, unspecified; K76.0 Fatty (change of) liver, not elsewhere classified; Z86.73 Personal history of transient ischemic attack (TIA), and cerebral infarction without residual deficits; Z85.068 Personal history of other malignant neoplasm of small intestine; Z91.030 Bee allergy status; Z96.651 Presence of right artificial knee joint; Z91.5 Personal history of self-harm
CPT/HCPCS: 36415; 80053; 81003; 81025; 85027; 86593

== ENCOUNTER 2019-02-10 10:43 | Inpatient (IN) | payer OTHER ==
[2019-02-10 11:51] VITALS: BMI 19.6
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
[2019-02-10] MEDS ORDERED: MAG HYDROX/AL HYDROX/SIMETH 30 ML UNIT-DOSE CUP PO PRN (13:45)
[2019-02-10] MEDS ORDERED: MAGNESIUM HYDROX 2400MG/30ML ORAL SUSPENSION 30 ML CUP PO PRN (13:45)
[2019-02-10] MEDS ORDERED: MENTHOL/PHENOL 1 EACH UD MM PRN (13:45)
[2019-02-10] MEDS ORDERED: ACETAMINOPHEN 325 MG TABLET (FP) PO PRN (13:45)
[2019-02-10] MEDS ORDERED: METHOCARBAMOL 500 MG TABLET PO PRN (13:45)
[2019-02-10] MEDS ORDERED: hydrOXYzine HCL 25 MG TABLET (FP) PO PRN (13:45)
[2019-02-10] MEDS ORDERED: ONDANSETRON *ODT* 4 MG TABLET SL PRN (13:45)
[2019-02-10] MEDS ORDERED: IBUPROFEN 400 MG TABLET (FP) PO PRN (13:45)
[2019-02-10] MEDS ORDERED: MAGNESIUM CITRATE 300 ML BOTTLE PO PRN (13:45)
[2019-02-10] MEDS ORDERED: BISMUTH SUBSALICYLATE 262 MG/15 ML BTL PO PRN (13:45)
[2019-02-10] MEDS ORDERED: chlordiazePOXIDE HCL 25 MG CAPSULE PO PRN (13:52)
[2019-02-10] MEDS ORDERED: CIPROFLOXACIN 500 MG TABLET (RESTRICTED TO ID) PO SCH (14:00)
[2019-02-10 17:03] LABS: HEMATOCRIT 33.7 % (32.4-45.2); HEMOGLOBIN 11.7 GM/dL (10.7-15.3); MCH 34.5 pg (25.7-33.7); MCHC 34.8 g/dl (32.0-36.0); MEAN PLT VOLUME 8.1 fl (7.5-11.1); PLATELET COUNT 198 K/MM3 (134-434); RDW 14.2 % (11.6-15.6); WHITE BLOOD COUNT 4.2 K/mm3 (4.0-10.0)
[2019-02-10 17:05] LABS: ALBUMIN 3.2 g/dl (3.4-5.0); BILIRUBIN,TOTAL 0.4 mg/dL (0.2-1); BLOOD UREA NITROGEN 8.4 mg/dL (7-18); CALCIUM 7.9 mg/dL (8.5-10.1); CREATININE 0.9 mg/dL (0.55-1.3); TOT PROT 8.2 g/dl (6.4-8.2)
[2019-02-10 17:06] LABS: POTASSIUM 3.7 mmol/L (3.5-5.1)
[2019-02-10] MEDS: chlordiazePOXIDE HCL 25 MG CAPSULE PO SCH ×2 (17:12→22:11)
[2019-02-10] MEDS: ACETAMINOPHEN 325 MG TABLET (FP) PO PRN (17:13)
[2019-02-10 21:32] LABS: EPI CELLS 15.9 /HPF (0-5/HPF); HYALINE CASTS 57 /lpf (0-8); PH,URINE 5.5 (5.0-8.0); URINE APPEARANCE CLOUDY; URINE BACTERIA 223.7 /hpf (NEGATIVE); URINE BILIRUBIN NEGATIVE (NEGATIVE); URINE COLOR YELLOW; URINE GLUCOSE (UA) NEGATIVE (NEGATIVE); URINE KETONE NEGATIVE (NEGATIVE); URINE LEUK ESTERASE 3+ (NEGATIVE); URINE NITRITE NEGATIVE (NEGATIVE); URINE PROTEIN 1+ (NEGATIVE); URINE RBC 3 /hpf (0-4); URINE UROBILINOGEN 0.2 mg/dL (0.2-1.0); URINE WBC 230 /hpf (0-5)
[2019-02-10 21:33] LABS: HCG,QUALITATIVE URINE Negative
[2019-02-10] MEDS: THIAMINE HCL 100 MG TABLET (FP) PO SCH (22:10)
[2019-02-10] MEDS: APIXABAN 5 MG TABLET PO SCH (22:11)
[2019-02-10] MEDS: MELATONIN 5 MG TABLETS PO PRN (22:11)
[2019-02-11] MEDS: ACETAMINOPHEN 325 MG TABLET (FP) PO PRN ×2 (05:50→15:13)
[2019-02-11] MEDS: chlordiazePOXIDE HCL 25 MG CAPSULE PO SCH ×4 (06:50→22:28)
[2019-02-11] MEDS: PRENATAL VITAMINS W/ FOLIC ACID TABLET (FP) PO SCH (10:32)
[2019-02-11] MEDS: APIXABAN 5 MG TABLET PO SCH ×2 (10:32→22:28)
[2019-02-11] MEDS ORDERED: amLODIPine BESYLATE 5 MG TABLET (FP) PO SCH (12:58)
[2019-02-11] MEDS ORDERED: amLODIPine BESYLATE 5 MG TABLET (FP) PO ONE (14:45)
[2019-02-11] MEDS ORDERED: cloNIDine HCL 0.1 MG TABLET PO PRN (15:17)
--- NOTE | 2019-02-11 15:23 | PN ---
S CIWA - CIWA Score Nausea/Vomitin-Mild Nausea/No Vomiting Muscle Tremors: 3 Anxiety: 3 Agitation: 2 Paroxysmal Sweats: 1-Minimal Palms Moist Orientation: 0-Oriented Tacttile Disturbances: 1-Very Mild Itch/Numbness Auditory Disturbances: 0-None Visual Disturbances: 0-None Headache: 1-Very Mild CIWA-Ar Total Score: 12 BHS Progress Note (SOAP) Subjective: long history of hypertension none compliance with antihypertensant during alcohol drinking begin amlodipin 5 mg po daily along with clonidin 0.1 mg po q6h prn for hypertension Objective: 02/11/19 15:20 Vital Signs Temperature 98.2 F 02/11/19 13:22 Pulse Rate 75 02/11/19 13:22 Respiratory Rate 18 02/11/19 13:22 Blood Pressure 146/104 H 02/11/19 13:22 O2 Sat by Pulse Oximetry (%) Laboratory Last Values WBC 4.2 K/mm3 (4.0-10.0) 02/10/19 14:35 RBC 3.40 M/mm3 (3.60-5.2) L 02/10/19 14:35 Hgb 11.7 GM/dL (10.7-15.3) 02/10/19 14:35 Hct 33.7 % (32.4-45.2) 02/10/19 14:35 MCV 99.0 fl (80-96) H 02/10/19 14:35 MCH 34.5 pg (25.7-33.7) H 02/10/19 14:35 MCHC 34.8 g/dl (32.0-36.0) 02/10/19 14:35 RDW 14.2 % (11.6-15.6) 02/10/19 14:35 Plt Count 198 K/MM3 (134-434) 02/10/19 14:35 MPV 8.1 fl (7.5-11.1) 02/10/19 14:35 Sodium 143 mmol/L (136-145) 02/10/19 14:35 Potassium 3.7 mmol/L (3.5-5.1) 02/10/19 14:35 Chloride 108 mmol/L (98-107) H 02/10/19 14:35 Carbon Dioxide 25 mmol/L (21-32) 02/10/19 14:35 Anion Gap 11 MMOL/L (8-16) 02/10/19 14:35 BUN 8.4 mg/dL (7-18) 02/10/19 14:35 Creatinine 0.9 mg/dL (0.55-1.3) 02/10/19 14:35 Est GFR (CKD-EPI)AfAm 87.63 02/10/19 14:35 Est GFR (CKD-EPI)NonAf 75.61 02/10/19 14:35 Random Glucose 115 mg/dL (74-106) H 02/10/19 14:35 Calcium 7.9 mg/dL (8.5-10.1) L 02/10/19 14:35 Total Bilirubin 0.4 mg/dL (0.2-1) 02/10/19 14:35 AST 279 U/L (15-37) H 02/10/19 14:35 ALT 172 U/L (13-61) H 02/10/19 14:35 Alkaline Phosphatase 176 U/L (45-117) H 02/10/19 14:35 Total Protein 8.2 g/dl (6.4-8.2) 02/10/19 14:35 Albumin 3.2 g/dl (3.4-5.0) L 02/10/19 14:35 Urine Color Yellow 02/10/19 16:01 Urine Appearance Cloudy 02/10/19 16:01 Urine pH 5.5 (5.0-8.0) 02/10/19 16:01 Ur Specific [place] 1.018 (1.010-1.035) 02/10/19 16:01 Urine Protein 1+ (NEGATIVE) H 02/10/19 16:01 Urine Glucose (UA) Negative (NEGATIVE) 02/10/19 16:01 Urine Ketones Negative (NEGATIVE) 02/10/19 16:01 Urine Blood Negative (NEGATIVE) 02/10/19 16:01 Urine Nitrite Negative (NEGATIVE) 02/10/19 16:01 Urine Bilirubin Negative (NEGATIVE) 02/10/19 16:01 Urine Urobilinogen 0.2 mg/dL (0.2-1.0) 02/10/19 16:01 Ur Leukocyte Esterase 3+ (NEGATIVE) H 02/10/19 16:01 Urine WBC (Auto) 230 /hpf (0-5) 02/10/19 16:01 Urine RBC (Auto) 3 /hpf (0-4) 02/10/19 16:01 Urine Casts (Auto) 57 /lpf (0-8) 02/10/19 16:01 U Epithel Cells (Auto) 15.9 /HPF (0-5/HPF) 02/10/19 16:01 Urine Bacteria (Auto) 223.7 /hpf (NEGATIVE) 02/10/19 16:01 Urine HCG, Qual Negative 02/10/19 16:01 lab noted low Ca++ with ast elevation Assessment: 02/11/19 15:21 alcohol withdrawal sx 02/11/19 15:23 ast elevation Plan: continue alcohol detox begin oscal bid and repeat ast on 02/13/19
--- NOTE | 2019-02-11 16:36 | CONSULT ---
[facility] Psychiatric Consult - Data Date of interview: 02/11/19 Admission source: [facility] Identifying data: Shorer approached for psychiatric consultation. 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 I don't want to talk right now." Psychiatric consultation refused.
[2019-02-11] MEDS: THIAMINE HCL 100 MG TABLET (FP) PO SCH (22:27)
[2019-02-11] MEDS: CALCIUM 250MG/VIT-D 125 UNITS 1 COMBO TABLET PO SCH (22:28)
[2019-02-11] MEDS: MELATONIN 5 MG TABLETS PO PRN (22:28)
[2019-02-12] MEDS: ACETAMINOPHEN 325 MG TABLET (FP) PO PRN ×3 (05:43→22:17)
[2019-02-12] MEDS: chlordiazePOXIDE HCL 25 MG CAPSULE PO SCH ×4 (06:28→22:16)
[2019-02-12] MEDS ORDERED: amLODIPine BESYLATE 5 MG TABLET (FP) PO SCH ×2 (10:00)
[2019-02-12] MEDS: PRENATAL VITAMINS W/ FOLIC ACID TABLET (FP) PO SCH (10:52)
[2019-02-12] MEDS: APIXABAN 5 MG TABLET PO SCH ×2 (10:52→22:17)
[2019-02-12] MEDS: CALCIUM 250MG/VIT-D 125 UNITS 1 COMBO TABLET PO SCH ×2 (10:52→22:17)
--- NOTE | 2019-02-12 11:15 | PN ---
S CIWA - CIWA Score Nausea/Vomitin-Mild Nausea/No Vomiting Muscle Tremors: 3 Anxiety: 2 Agitation: 2 Paroxysmal Sweats: 1-Minimal Palms Moist Orientation: 0-Oriented Tacttile Disturbances: 1-Very Mild Itch/Numbness Auditory Disturbances: 0-None Visual Disturbances: 0-None Headache: 1-Very Mild CIWA-Ar Total Score: 11 BHS Progress Note (SOAP) Subjective: reported no appetite not feeling hungry order ensure 120 ml bid po low energy prefers to stay in bed resting encourage to discuss feelings and concerns patient is hesitating to talke to staff today Objective: 02/12/19 11:12 Vital Signs Temperature 98.6 F 02/12/19 09:17 Pulse Rate 92 H 02/12/19 09:17 Respiratory Rate 20 02/12/19 09:17 Blood Pressure 114/86 02/12/19 09:17 O2 Sat by Pulse Oximetry (%) Laboratory Last Values WBC 4.2 K/mm3 (4.0-10.0) 02/10/19 14:35 RBC 3.40 M/mm3 (3.60-5.2) L 02/10/19 14:35 Hgb 11.7 GM/dL (10.7-15.3) 02/10/19 14:35 Hct 33.7 % (32.4-45.2) 02/10/19 14:35 MCV 99.0 fl (80-96) H 02/10/19 14:35 MCH 34.5 pg (25.7-33.7) H 02/10/19 14:35 MCHC 34.8 g/dl (32.0-36.0) 02/10/19 14:35 RDW 14.2 % (11.6-15.6) 02/10/19 14:35 Plt Count 198 K/MM3 (134-434) 02/10/19 14:35 MPV 8.1 fl (7.5-11.1) 02/10/19 14:35 Sodium 143 mmol/L (136-145) 02/10/19 14:35 Potassium 3.7 mmol/L (3.5-5.1) 02/10/19 14:35 Chloride 108 mmol/L (98-107) H 02/10/19 14:35 Carbon Dioxide 25 mmol/L (21-32) 02/10/19 14:35 Anion Gap 11 MMOL/L (8-16) 02/10/19 14:35 BUN 8.4 mg/dL (7-18) 02/10/19 14:35 Creatinine 0.9 mg/dL (0.55-1.3) 02/10/19 14:35 Est GFR (CKD-EPI)AfAm 87.63 02/10/19 14:35 Est GFR (CKD-EPI)NonAf 75.61 02/10/19 14:35 Random Glucose 115 mg/dL (74-106) H 02/10/19 14:35 Calcium 7.9 mg/dL (8.5-10.1) L 02/10/19 14:35 Total Bilirubin 0.4 mg/dL (0.2-1) 02/10/19 14:35 AST 279 U/L (15-37) H 02/10/19 14:35 ALT 172 U/L (13-61) H 02/10/19 14:35 Alkaline Phosphatase 176 U/L (45-117) H 02/10/19 14:35 Total Protein 8.2 g/dl (6.4-8.2) 02/10/19 14:35 Albumin 3.2 g/dl (3.4-5.0) L 02/10/19 14:35 Urine Color Yellow 02/10/19 16:01 Urine Appearance Cloudy 02/10/19 16:01 Urine pH 5.5 (5.0-8.0) 02/10/19 16:01 Ur Specific [place] 1.018 (1.010-1.035) 02/10/19 16:01 Urine Protein 1+ (NEGATIVE) H 02/10/19 16:01 Urine Glucose (UA) Negative (NEGATIVE) 02/10/19 16:01 Urine Ketones Negative (NEGATIVE) 02/10/19 16:01 Urine Blood Negative (NEGATIVE) 02/10/19 16:01 Urine Nitrite Negative (NEGATIVE) 02/10/19 16:01 Urine Bilirubin Negative (NEGATIVE) 02/10/19 16:01 Urine Urobilinogen 0.2 mg/dL (0.2-1.0) 02/10/19 16:01 Ur Leukocyte Esterase 3+ (NEGATIVE) H 02/10/19 16:01 Urine WBC (Auto) 230 /hpf (0-5) 02/10/19 16:01 Urine RBC (Auto) 3 /hpf (0-4) 02/10/19 16:01 Urine Casts (Auto) 57 /lpf (0-8) 02/10/19 16:01 U Epithel Cells (Auto) 15.9 /HPF (0-5/HPF) 02/10/19 16:01 Urine Bacteria (Auto) 223.7 /hpf (NEGATIVE) 02/10/19 16:01 Urine HCG, Qual Negative 02/10/19 16:01 TB (QFT) Incubation (.) 02/10/19 14:35 TB Test (QFT) Nil 0.18 IU/mL (.) 02/10/19 14:35 TB Test (QFT) Mitogen >10.00 IU/mL (.) 02/10/19 14:35 TB Test (QFT) Antigen 0.17 IU/mL (.) 02/10/19 14:35 TB Test (QFT) Negative (Negative) 02/10/19 14:35 TB Positive Criteria (.) 02/10/19 14:35 lab noted ast elevation uti Assessment: 02/12/19 11:14 alcohol withdrawal sx Plan: continue alcohol detox
[2019-02-12] MEDS: SULFAMETHOXAZOLE/TRIMETHOPRIM 800MG/160MG D.S. TABLET PO SCH ×2 (12:30→22:17)
[2019-02-12] MEDS: THIAMINE HCL 100 MG TABLET (FP) PO SCH (22:16)
[2019-02-12] MEDS: MELATONIN 5 MG TABLETS PO PRN (22:18)
[2019-02-13] MEDS ORDERED: chlordiazePOXIDE HCL 10 MG CAPSULE PO PRN
[2019-02-13] MEDS ORDERED: chlordiazePOXIDE HCL 10 MG CAPSULE PO SCH (05:00)
[2019-02-13 09:17] VITALS: BP 118/98; PULSE 111; TEMP 97.5
--- NOTE | 2019-02-13 18:32 | PN ---
[facility] CIWA - CIWA Score Nausea/Vomitin-No Nausea/No Vomiting Muscle Tremors: 2 Anxiety: 4-Mod. Anxious/Guarded Agitation: 3 Paroxysmal Sweats: 2 Orientation: 0-Oriented Tacttile Disturbances: 2-Mild Itch/Numbness/Burn Auditory Disturbances: 1-Very Mild Visual Disturbances: 0-None Headache: 0-None Present CIWA-Ar Total Score: 14 S COWS - Scale Resting Pulse: 2= [place] 101-120 Sweatin= Chills/Flushing Restless Observation: 1= Difficult to Sit Still Pupil Size: 0= Normal to Room Light Bone or Joint Aches: 1= Mild Discomfort Runny Nose/ Eye Tearin= None GI Upset > 30mins: 0= None Tremor Observation of Outstretched Hands: 2= Slight Tremor Visible Yawning Observation: 1= 1-2x During Session Anxiety or Irritability: 4=Extreme Anxiety Goose Flesh Skin: 0=Smooth Skin COWS Score: 12 S Progress Note (SOAP) Subjective: Anxious, Restless, Tremors, Sweating. Objective: PATIENT A & O X 3, OBSERVED AMBULATING ON UNIT UNASSISTED. IN NO ACUTE DISTRESS. 02/13/19 18:31 Vital Signs Temperature 97.5 F L 02/13/19 09:17 Pulse Rate 111 H 02/13/19 09:17 Respiratory Rate 18 02/13/19 09:17 Blood Pressure 118/98 02/13/19 09:17 O2 Sat by Pulse Oximetry (%) Laboratory Tests 02/10/19 02/10/19 02/10/19 14:35 14:35 14:35 WBC 4.2 RBC 3.40 L Hgb 11.7 Hct 33.7 MCV 99.0 H MCH 34.5 H MCHC 34.8 RDW 14.2 Plt Count 198 MPV 8.1 Sodium 143 Potassium 3.7 Chloride 108 H Carbon Dioxide 25 Anion Gap 11 BUN 8.4 Creatinine 0.9 Est GFR (CKD-EPI)AfAm 87.63 Est GFR (CKD-EPI)NonAf 75.61 Random Glucose 115 H Calcium 7.9 L Total Bilirubin 0.4 AST 279 H ALT 172 H Alkaline Phosphatase 176 H Total Protein 8.2 Albumin 3.2 L Urine Color Urine Appearance Urine pH Ur Specific [place] Urine Protein Urine Glucose (UA) Urine Ketones Urine Blood Urine Nitrite Urine Bilirubin Urine Urobilinogen Ur Leukocyte Esterase Urine WBC (Auto) Urine RBC (Auto) Urine Casts (Auto) U Epithel Cells (Auto) Urine Bacteria (Auto) Urine HCG, Qual TB (QFT) Incubation TB Test (QFT) Nil 0.18 TB Test (QFT) Mitogen >10.00 TB Test (QFT) Antigen 0.17 TB Test (QFT) Negative TB Positive Criteria 02/10/19 02/13/19 16:01 08:20 WBC RBC Hgb Hct MCV MCH MCHC RDW Plt Count MPV Sodium Potassium Chloride Carbon Dioxide Anion Gap BUN Creatinine Est GFR (CKD-EPI)AfAm Est GFR (CKD-EPI)NonAf Random Glucose Calcium Total Bilirubin AST 82 H ALT Alkaline Phosphatase Total Protein Albumin Urine Color Yellow Urine Appearance Cloudy Urine pH 5.5 Ur Specific [place] 1.018 Urine Protein 1+ H Urine Glucose (UA) Negative Urine Ketones Negative Urine Blood Negative Urine Nitrite Negative Urine Bilirubin Negative Urine Urobilinogen 0.2 Ur Leukocyte Esterase 3+ H Urine WBC (Auto) 230 Urine RBC (Auto) 3 Urine Casts (Auto) 57 U Epithel Cells (Auto) 15.9 Urine Bacteria (Auto) 223.7 Urine HCG, Qual Negative TB (QFT) Incubation TB Test (QFT) Nil TB Test (QFT) Mitogen TB Test (QFT) Antigen TB Test (QFT) TB Positive Criteria LABS NOTED. Assessment: 02/13/19 18:31 WITHDRAWAL SYMPTOMS. ELEVATED LIVER ENZYMES. 02/13/19 18:31 Plan: CONTINUE DETOX. INCREASE DAILY PO WATER INTAKE.
--- NOTE | 2019-02-13 18:34 | DS ---
[facility] Detox Discharge Summary Admission Date: 02/10/19 Discharge Date: 02/13/19 - History Present History: Alcohol Dependence, Cannabis Dependence, Cocaine Dependence Additional Comments: PATIENT DOES NOT WISH TO REMAIN TO COMPLETE DETOX REGIMEN. RISKS OF LEAVING DETOX UNIT AGAINST MEDICAL ADVICE AND PRIOR TO COMPLETION OF DETOX REGIMEN EXPLAINED TO PATIENT. PATIENT ADVISED TO GO IMMEDIATELY TO NEAREST ER SHOULD ANY INTOLERABLE WITHDRAWAL / DETOX SYMPTOMS DEVELOP AT ANY TIME. PRESCRIPTION FOR BACTRIM DS (PRESCRIBED FOR TREATMENT OF UTI WHILE PATIENT WAS ADMITTED FOR DETOX) SENT TO PATIENT'S PHARMACY ([facility], [place]) FOR FOLLOW-UP AFTERCARE. PATIENT ADVISED TO COMPLETE FULL COURSE OF ANTIBIOTIC. PATIENT ADVISED TO FOLLOW-UP WITH INTERNET ASSESSOR SOON POSSIBLE FOR HISTORY OF RECENT UTI AND FOR ELEVATED LIVER ENZYMES NOTED ON DETOX ADMISSION LABORATORY ASSESSMENT. PATIENT VERBALIZED UNDERSTANDING OF ALL INFORMATION / RECOMMENDATIONS PRESENTED TO HER PRIOR TO DEPARTURE FROM DETOX UNIT. COPIES OF RESULTS OF ALL LABS DRAWN WHILE ADMITTED FOR DETOX GIVEN TO PATIENT AT TIME OF DISCHARGE FROM DETOX UNIT. ASIDE FROM BACTRIM DS, PATIENT DECLINED OFFER OF MEDICATION PRESCRIPTION FOR HOME MEDICATION AT TIME OF DISCHARGE FROM DETOX, NOTING THAT SHE CURRENTLY HAS ADEQUATE SUPPLIES OF ALL PRESCRIBED HOME MEDICATIONS AT HOME. PATIENT LEFT DETOX UNIT IN STABLE MEDICAL CONDITION. Pertinent Past History: history Of UTI, History Of Colitis, History Of Anemia, History Of C.O.P.D., History Of Adenoma Of The Duodenum, History Of CVA, History Of Fatty Liver, Depression. - Physical Exam Results Vital Signs: Vital Signs Temperature 97.5 F L 02/13/19 09:17 Pulse Rate 111 H 02/13/19 09:17 Respiratory Rate 18 02/13/19 09:17 Blood Pressure 118/98 02/13/19 09:17 O2 Sat by Pulse Oximetry (%) Pertinent Admission Physical Exam Findings: WITHDRAWAL SYMPTOMS. Laboratory Tests 02/10/19 02/10/19 02/10/19 14:35 14:35 14:35 WBC 4.2 RBC 3.40 L Hgb 11.7 Hct 33.7 MCV 99.0 H MCH 34.5 H MCHC 34.8 RDW 14.2 Plt Count 198 MPV 8.1 Sodium 143 Potassium 3.7 Chloride 108 H Carbon Dioxide 25 Anion Gap 11 BUN 8.4 Creatinine 0.9 Est GFR (CKD-EPI)AfAm 87.63 Est GFR (CKD-EPI)NonAf 75.61 Random Glucose 115 H Calcium 7.9 L Total Bilirubin 0.4 AST 279 H ALT 172 H Alkaline Phosphatase 176 H Total Protein 8.2 Albumin 3.2 L Urine Color Urine Appearance Urine pH Ur Specific [place] Urine Protein Urine Glucose (UA) Urine Ketones Urine Blood Urine Nitrite Urine Bilirubin Urine Urobilinogen Ur Leukocyte Esterase Urine WBC (Auto) Urine RBC (Auto) Urine Casts (Auto) U Epithel Cells (Auto) Urine Bacteria (Auto) Urine HCG, Qual TB (QFT) Incubation TB Test (QFT) Nil 0.18 TB Test (QFT) Mitogen >10.00 TB Test (QFT) Antigen 0.17 TB Test (QFT) Negative TB Positive Criteria 02/10/19 02/13/19 16:01 08:20 WBC RBC Hgb Hct MCV MCH MCHC RDW Plt Count MPV Sodium Potassium Chloride Carbon Dioxide Anion Gap BUN Creatinine Est GFR (CKD-EPI)AfAm Est GFR (CKD-EPI)NonAf Random Glucose Calcium Total Bilirubin AST 82 H ALT Alkaline Phosphatase Total Protein Albumin Urine Color Yellow Urine Appearance Cloudy Urine pH 5.5 Ur Specific [place] 1.018 Urine Protein 1+ H Urine Glucose (UA) Negative Urine Ketones Negative Urine Blood Negative Urine Nitrite Negative Urine Bilirubin Negative Urine Urobilinogen 0.2 Ur Leukocyte Esterase 3+ H Urine WBC (Auto) 230 Urine RBC (Auto) 3 Urine Casts (Auto) 57 U Epithel Cells (Auto) 15.9 Urine Bacteria (Auto) 223.7 Urine HCG, Qual Negative TB (QFT) Incubation TB Test (QFT) Nil TB Test (QFT) Mitogen TB Test (QFT) Antigen TB Test (QFT) TB Positive Criteria LABS NOTED. - Treatment Hospital Course: Detoxed Safely - Medication Discharge Medications: Ambulatory Orders Amlodipine Besylate [Norvasc -] 5 mg PO DAILY 12/01/18 Acetaminophen [Tylenol] 650 mg PO QID PRN 02/10/19 Apixaban [Eliquis] 5 mg PO BID 02/10/19 Ciprofloxacin [Cipro (Restricted To Id)] 500 mg PO Q12H 02/10/19 Metronidazole 500 mg PO TID 02/10/19 Sulfamethoxazole/Trimethoprim [Bactrim Ds -] 1 tab PO BID 7 Days #14 tablet - Diagnosis (1) Elevated liver enzymes Status: Acute (2) Alcohol dependence with uncomplicated withdrawal Status: Acute (3) Cannabis dependence Status: Chronic (4) Cocaine dependence Status: Chronic Qualifiers: Substance use status: uncomplicated Qualified Code(s): F14.20 - Cocaine dependence, uncomplicated (5) UTI (urinary tract infection) Status: Acute Qualifiers: Urinary tract infection type: site unspecified Hematuria presence: without hematuria Qualified Code(s): N39.0 - Urinary tract infection, site not specified - AMA Did Patient Leave Against Medical Advice: Yes (PATIENT DID NOT WISH TO REMAIN TO COMPLETE DETOX REGIMEN.)
[2019-02-14] MEDS ORDERED: chlordiazePOXIDE HCL 10 MG CAPSULE PO SCH (05:00)
[2019-02-15] MEDS ORDERED: chlordiazePOXIDE HCL 10 MG CAPSULE PO ONE (05:00)
== END 2019-02-13 09:38 | disposition left against medical advice (07) | DRG 770 ==
LOC: YASAS 10:43 → Y3N 14:53
PROVIDERS: ADMIT Surgery; ATTEND Surgery
PROC: HZ2ZZZZ Detoxification Services for Substance Abuse Treatment (ICD-10-PCS; principal; 2019-02-12)
DX: F14.20 Cocaine dependence, uncomplicated (principal); F12.20 Cannabis dependence, uncomplicated; F32.9 Major depressive disorder, single episode, unspecified; I10 Essential (primary) hypertension; E83.51 Hypocalcemia; K76.0 Fatty (change of) liver, not elsewhere classified; N39.0 Urinary tract infection, site not specified; R74.8 Abnormal levels of other serum enzymes; Z86.2 Personal history of diseases of the blood and blood-forming organs and certain disorders involving the immune mechanism; Z86.73 Personal history of transient ischemic attack (TIA), and cerebral infarction without residual deficits
CPT/HCPCS: 36415; 80053; 81003; 84450; 84703; 85027; 86480; J0735

== ENCOUNTER 2019-02-13 15:25 | Inpatient (IN) | payer OTHER ==
--- NOTE | 2019-02-13 15:38 | PDOC ---
History of Present Illness - General Stated Complaint: Blood Pressure Problem Time Seen by Provider: 02/13/19 15:37 History Source: Patient - History of Present Illness Initial Comments: 02/13/19 16:04 The patient is a 48 year old female with a PMH of ETOH abuse, marijuana abuse 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), duodenal tubular adenoma, recent splenic infarct (on A/C as per EMR) presents to the ED c/o multiple syncopal episodes. Patient states she was standing in [employer] last week when she fainted. States people who witnessed the episode noted she was shaking her limbs. States she was evaluated last week at [facility] for her symptoms and then was discharged to [facility] for alcohol detoxification. States she left [facility] after 4 days because they weren't giving her medications including her Eliquis and an antibiotic for a recently diagnosed UTI. ROS is positive for an episode of bright red blood in her stool this a.m. prior to presentation. The patient denies chest pain, shortness of breath, abdominal pain, nausea/ vomiting, diarrhea/constipation. Surgical: appendectomy, Social: 6 20 ounce cans beer daily, 3-4 blunts marijuana daily As per EMR, patient evaluated @ [facility] 02/10/19-02/12/19 for alcohol detoxification. Patient has history of multiple admissions @ [facility] for detox. Was treated for UTI w/Bactrim as well as given her ambulatory medications on most recent admission. Past History - Past Medical History Allergies/Adverse Reactions: Allergies Allergy/AdvReac Type Severity Reaction Status Date / Time beeswax Allergy Severe Difficulty Verified 01/24/19 23:55 Breathing coconut oil Allergy Severe Itching Verified 01/24/19 23:55 No Known Drug Allergies Allergy Verified 01/24/19 23:55 Home Medications: Ambulatory Orders Amlodipine Besylate [Norvasc -] 5 mg PO DAILY 12/01/18 Acetaminophen [Tylenol] 650 mg PO QID PRN 02/10/19 Apixaban [Eliquis] 5 mg PO BID 02/10/19 Ciprofloxacin [Cipro (Restricted To Id)] 500 mg PO Q12H 02/10/19 Metronidazole 500 mg PO TID 02/10/19 Sulfamethoxazole/Trimethoprim [Bactrim Ds -] 1 tab PO BID 7 Days #14 tablet Anemia: Yes (Not on med) Asthma: No Cancer: Yes (Adenoma of the duodenum) Cardiac Disorders: No CVA: Yes (2003 RESOLVED WITHOUT ANY COMPLICATIONS) COPD: Yes (Bronchitis) CHF: No DVT: No Dementia: No Diabetes: No GI Disorders: No Disorders: No HTN: Yes Hypercholesterolemia: No Kidney Stones: No Liver Disease: Yes (FATTY LIVER) Seizures: No Thyroid Disease: No - Surgical History Abdominal Surgery: Yes (hernia repair) Appendectomy: Yes (Laparascopic Surgery in September 2018) Cardiac Surgery: No Cholecystectomy: No Lung Surgery: No Neurologic Surgery: No Orthopedic Surgery: Yes (right knee, 07/29/2015 [facility]) - Reproductive History PID: (2017) - Immunization History Immunization Up to Date: Yes - Suicide/Smoking/Psychosocial Hx Smoking Status: No Smoking History: Never smoked Have you smoked in the past 12 months: No Number of Cigarettes Smoked Daily: 0 Cigars Per Day: 0 'Breaking Loose' booklet given: 05/25/18 Hx Alcohol Use: Yes Drug/Substance Use Hx: Yes Substance Use Type: Alcohol, Cocaine, Marijuana Hx Substance Use Treatment: Yes (12/2018 @ [facility]) Review of Systems - Review of Systems Constitutional: No: Chills, Fever HEENTM: No: Recent change in vision Respiratory: No: Cough, Shortness of Breath, Wheezing Cardiac (ROS): Yes: Syncope. No: Chest Pain, Lightheadedness, Palpitations ABD/GI: Yes: Rectal Bleeding. No: Constipated, Diarrhea, Nausea, Vomiting, Abdominal cramping : No: Burning, Dysuria *Physical Exam - Physical Exam General Appearance: Yes: Nourished, Appropriately Dressed HEENT: positive: Normal Voice, Hearing Grossly Normal Neck: positive: Trachea midline, Supple Respiratory/Chest: positive: Lungs Clear, Normal Breath Sounds Cardiovascular: positive: S1, S2. negative: Edema, JVD, Murmur Vascular Pulses: Dorsalis-Pedis (R): 2+, Doralis-Pedis (L): 2+ Gastrointestinal/Abdominal: positive: Normal Bowel Sounds, Soft. negative: Distended, Guarding, Rebound, Tenderness, Hernia, Mass Musculoskeletal: negative: CVA Tenderness (R), CVA Tenderness (L) Extremity: positive: Normal Capillary Refill, Normal Inspection Integumentary: positive: Normal Color, Dry, Warm Neurologic: positive: digital product manager II-XII NML intact, Fully Oriented, Alert Heart Score/ECG Review - Age Age: 45-65 - Risk Factors Risk Factors Heart Score: Yes Hx Hypercholesterolemia, Yes Hx Hypertension Based on the list above the patient has:: 1-2 risk factors - Troponin Troponin: </= normal limit - ECG Intrepretation Rhythm: Regular Rhythm - [place]: Normal - P and IN Prolonged IN Interval: 1st Degree Block(>20mils) - ECG Impressions Normal ECG: Yes Comment:: 02/13/19 21:44 HR 85, 1st AV block, no MELISSA/STD/TWI ED Treatment Course - LABORATORY CBC & Chemistry Diagram: 02/13/19 16:20 02/13/19 17:43 Medical Decision Making - Medical Decision Making 02/13/19 16:07 48 y/o female presents w/syncopal episodes. Hypotensive (BP 78/52) at presentation. Evaluate for syncope including arrhythmia, vasovagal, orthostatic , also consider ETOH induced syncope. Also evaluate for GI bleed given report of bloody stool. PLAN: IV hydration + CBC/CMP, EKG, Cardiac Monitoring, Troponin, FOBT, Urine . Also consider TIA - Head CT Reassess. 02/13/19 16:39 Patient reassessed @ bedside Repeat BP 170's/80's Case d/w Dr. Hguhes @ [facility] patient evaluated in their ED on 02/10/19 for acute intoxications, abdominal pain and back pain. Patient received symptomatic care and discharged to [facility]. Patient refusing FOBT. 02/13/19 18:19 Serum (+); B-HCG pending EKG non-ischemic as documented in EKG section of EMR 02/13/19 18:29 B-HCG negative Will contact lab to request repeat CMP with 2nd tube 02/13/19 18:35 Case d/w [place] in the lab Will repeat B-HCG as well as CMP 02/13/19 18:41 Case d/w lab will run repeat B-HCG and CMP on 2nd CMP that was redrawn @ bedside 02/13/19 19:28 Lab called - 2nd request for repeat CMP 02/13/19 19:30 FOBT negative CBC 8.1 (11 on 02/10) - MCV 101 Concern for possible lab error, incorrect Hb, will repeat Hb with new blood draw. 02/13/19 21:04 Repeat Cr 1.7 (previously 2.0 on earlier lab) however patient s/p 2 L IV NS B-HCG negative CBC pending UA shows 312 WBC At this time patient requires admission and evaluation for acute renal failure and possible acute anemia (repeat CBC pending to confirm Hb drop from 11 --> 8) . Case d/w inpatient hospitalist residents Dr. Lomeli and Dr. Loco. Will accept for admission. Request UTox 02/13/19 21:12 Patient counseled on plan of care amenable to admission. Clinical Impression: GEN vs ARF (depending on actual Cr), Anemia - 2/2 Alcoholism vs. ? GI bleed (less likely), possible lab error *DC/Admit/Observation/Transfer Diagnosis at time of Disposition: Acute renal failure - Referrals - Patient Instructions - Post Discharge Activity
[2019-02-13] MEDS ORDERED: ACETAMINOPHEN 1000 MG/100 ML VIAL (NON FORMULARY) IVPB ONE (16:20)
[2019-02-13 16:30] LABS: BASO % 0.5 % (0-2.0); EOS % 2.2 % (0-4.5); HEMATOCRIT 24.6 % (32.4-45.2); HEMOGLOBIN 8.1 GM/dL (10.7-15.3); LYMPH % 31.8 % (8-40); MCH 33.3 pg (25.7-33.7); MCHC 32.9 g/dl (32.0-36.0); MEAN CELL VOLUME 101.3 fl (80-96); MEAN PLT VOLUME 9.2 fl (7.5-11.1); MONO % 8.8 % (3.8-10.2); NEUT % 56.7 % (42.8-82.8); PLATELET COUNT 100 K/MM3 (134-434); RBC 2.43 M/mm3 (3.60-5.2); RDW 13.9 % (11.6-15.6); WHITE BLOOD COUNT 3.9 K/mm3 (4.0-10.0)
[2019-02-13] MEDS ORDERED: ACETAMINOPHEN INJECTION 100 ML IVPB ONE (16:34)
[2019-02-13 17:03] LABS: ALK PHOS 126 U/L (45-117); ANION GAP 9 MMOL/L (8-16); BILIRUBIN,TOTAL 0.4 mg/dL (0.2-1); BLOOD UREA NITROGEN 8.4 mg/dL (7-18); CALCIUM 7.4 mg/dL (8.5-10.1); CHLORIDE 106 mmol/L (98-107); CO2 22 mmol/L (21-32); GLUCOSE,RANDOM 73 mg/dL (74-106); POTASSIUM 4.4 mmol/L (3.5-5.1); SGOT/AST 78 U/L (15-37); SGPT/ALT 72 U/L (13-61); SODIUM 138 mmol/L (136-145); TOT PROT 7.4 g/dl (6.4-8.2)
[2019-02-13 17:27] LABS: INR 1.3 (0.83-1.09); PROTHROMBIN TIME (PATIENT) 15.4 SEC (9.7-13.0)
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
[2019-02-13 18:10] LABS: EPI CELLS 19.4 /HPF (0-5/HPF); HYALINE CASTS 7 /lpf (0-8); URINE APPEARANCE CLOUDY; URINE BACTERIA 312.7 /hpf (NEGATIVE); URINE BILIRUBIN NEGATIVE (NEGATIVE); URINE COLOR YELLOW; URINE GLUCOSE (UA) NEGATIVE (NEGATIVE); URINE KETONE NEGATIVE (NEGATIVE); URINE LEUK ESTERASE TRACE (NEGATIVE); URINE NITRITE NEGATIVE (NEGATIVE); URINE PROTEIN 1+ (NEGATIVE); URINE RBC 2 /hpf (0-4); URINE UROBILINOGEN 0.2 mg/dL (0.2-1.0); URINE WBC 17 /hpf (0-5)
--- NOTE | 2019-02-13 19:57 | PN ---
Teaching Attending Note Name of Resident: Lisa Lomeli ATTENDING PHYSICIAN STATEMENT I saw and evaluated the patient. I reviewed the resident's note and discussed the case with the resident. I agree with the resident's findings and plan as documented. 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 Patient states she was standing in [facility] last week when she fainted. States people who witnessed the episode noted she was shaking her limbs. States she was evaluated last week at [facility] for her symptoms and then was discharged to [facility] for alcohol detoxification. States she left [facility] after 4 days because they weren't giving her medications including her Eliquis and an antibiotic for a recently diagnosed UTI. Had been on Flagyl and Cipro for colitis from [facility]. She had an episode of bright red blood in her stool this morning prior to presentation. Has dysuria. The patient denies chest pain, shortness of breath, abdominal pain , nausea, vomiting, diarrhea or constipation. OBJECTIVE: Alert Vital Signs Period Temp Pulse Resp BP Sys/Enriquez Pulse Ox Last 24 Hr 99.6 F 85-95 16-20 78-107/52-72 95-100 HEENT: No Jaundice, eye redness or discharge, PERRLA, EOMI. Normocephalic, atraumatic. External ears are normal and hearing is grossly intact. No nasal discharge. Neck: Supple, nontender. No palpable adenopathy or thyromegaly. No JVD Chest: Good effort. Clear to auscultation and percussion. Heart: Regular. No S3, rub or murmur Abdomen: Not distended, soft, periumblical tenderness and no HSM. No rebound or guarding. Normal bowel sounds. Ext: Peripheral pulses intact. No leg edema. Skin: Warm and dry. No petechiae, rash or ecchymosis. Neuro: Alert. Oriented x3. CN 2-12 grossly intact. Sensation grossly intact in all four extremities; bilateral lower extremity weakness. Psych: Appropriate mood and affect. Good insight. Home Medications Medication Instructions Recorded Amlodipine Besylate [Norvasc -] 5 mg PO DAILY 12/01/18 Acetaminophen [Tylenol] 650 mg PO QID PRN 02/10/19 Apixaban [Eliquis] 5 mg PO BID 02/10/19 Ciprofloxacin [Cipro (Restricted 500 mg PO Q12H 02/10/19 To Id)] Metronidazole 500 mg PO TID 02/10/19 Sulfamethoxazole/Trimethoprim 1 tab PO BID 7 Days #14 tablet 02/13/19 [Bactrim Ds -] Abnormal Lab Results 02/13/19 02/13/19 02/13/19 16:20 16:20 16:51 WBC 3.9 L RBC 2.43 L Hgb 8.1 L Hct 24.6 L D MCV 101.3 H Plt Count 100 L D PT with INR INR PTT (Actin FS) 42.1 H Chloride Creatinine 2.0 H Random Glucose 73 L Calcium 7.4 L AST 78 H ALT 72 H Alkaline Phosphatase 126 H Creatine Kinase 227 H Albumin 3.0 L Urine Protein 02/13/19 02/13/19 02/13/19 16:51 17:13 17:43 WBC RBC Hgb Hct MCV Plt Count PT with INR 15.40 H INR 1.30 H PTT (Actin FS) Chloride 109 H Creatinine 1.7 H Random Glucose Calcium 7.1 L AST 66 H ALT 64 H Alkaline Phosphatase Creatine Kinase Albumin 2.7 L Urine Protein 1+ H ASSESSMENT AND PLAN: 1. Syncope - Cause of syncope unclear. May be due to illicit drugs superimposed on dehydration. EKG shows NSR with 1O AV block and prolonged QTc. Will investigate syncope with head CT scan, lumbosacral CT scan, EEG, carotid doppler and ECHO. Will strive to get records from [facility]. Treat with IV flagyl and rocephin to cover for colitis and UTI. Urine culture pending. Monitor on telemetry and hydrate with IV NS. Will continue comprehensive care of all her comorbid conditions. 2. Hypoalbuminemia - Possibly due to combined effects of proteinuria, malnutrition and inflammation associated with comorbid chronic conditions. Will ensure adequate dietary protein intake and also consult baccarat dealer. 3. Tobacco Use Counseled on risks associated with tobacco use. We will provide patient all the necessary assistance to facilitate smoking cessation and prescribe Nicotine patch. 4. CKD - Acute exacerbation may be due to rhabdomyolysis and dehydration. Will hydrate gently and get kidney sonogram, urinalysis, PTH, phosphate and urine protein/creatinine ratio. Will consult nephrology and avoid nephrotoxic agents such as NSAIDS, aminoglycosides, contrast dyes and certain Alternative medicine products. 5. Anemia - Likely multifactorial. Will do basic anemia work up including serial stool guaiacs, reticulocyte count and iron studies. Would benefit from Procrit therapy once iron replete. 6. Alcohol abuse/Polysubstance abuse - Implement [facility] and do neurochecks. Monitor for drug withdrawal. Implement seizure, fall and aspiration precautions. Treat with thiamine and folic acid and monitor electrolytes (Ca,Mg,K,P). Counseled patient about abstaining from illicit drugs and alcohol. Will consult branch service specialist and refer to alcohol/drug detox upon discharge. 7. DVT prophylaxis - On Eliquis for splenic infarcts. 8. Advance directives - Full code
[2019-02-13 20:12] LABS: ALBUMIN 2.7 g/dl (3.4-5.0); ALK PHOS 113 U/L (45-117); ANION GAP 9 MMOL/L (8-16); BILIRUBIN,TOTAL 0.4 mg/dL (0.2-1); BLOOD UREA NITROGEN 7.2 mg/dL (7-18); CALCIUM 7.1 mg/dL (8.5-10.1); CHLORIDE 109 mmol/L (98-107); CO2 21 mmol/L (21-32); CREATININE 1.7 mg/dL (0.55-1.3); GLUCOSE,RANDOM 77 mg/dL (74-106); POTASSIUM 3.7 mmol/L (3.5-5.1); SGOT/AST 66 U/L (15-37); SGPT/ALT 64 U/L (13-61); SODIUM 138 mmol/L (136-145); TOT PROT 6.7 g/dl (6.4-8.2)
[2019-02-13] MEDS ORDERED: SODIUM CHLORIDE 0.9% 500 ML INFUS.BAG IV ONE (20:51)
[2019-02-13 23:04] LABS: BASO % 0.8 % (0-2.0); EOS % 2.8 % (0-4.5); HEMATOCRIT 34.9 % (32.4-45.2); HEMOGLOBIN 11.7 GM/dL (10.7-15.3); LYMPH % 39.7 % (8-40); MCH 33.1 pg (25.7-33.7); MCHC 33.4 g/dl (32.0-36.0); MEAN PLT VOLUME 9.3 fl (7.5-11.1); MONO % 6.3 % (3.8-10.2); NEUT % 50.4 % (42.8-82.8); PLATELET COUNT 127 K/MM3 (134-434); RBC 3.52 M/mm3 (3.60-5.2); RDW 13.8 % (11.6-15.6); WHITE BLOOD COUNT 5.9 K/mm3 (4.0-10.0)
[2019-02-13] MEDS ORDERED: CEFTRIAXONE 1 GM/50 ML BAG ONE (23:10)
[2019-02-13] MEDS: CEFTRIAXONE 1 GM in DEXTROSE 5%-WATER - 50 ML IVPB SCH (23:18)
[2019-02-13] MEDS: SODIUM CHLORIDE 1,000 ML IV SCH (23:46)
[2019-02-13] MEDS ORDERED: amLODIPine BESYLATE 5 MG TABLET (FP) ONE (23:56)
[2019-02-13] MEDS: amLODIPine BESYLATE 5 MG TABLET (FP) PO SCH (23:57)
--- NOTE | 2019-02-14 00:07 | HP ---
CHIEF COMPLAINT: Blacking out and fainting PCP: doctor in [place] not house staff. HISTORY OF PRESENT ILLNESS: This is a 48 y/o F with a PMH of CVA in 2002 with residual b/l weakness, HTN, polysubstance abuse, splenic infarct that presented after "blacking out" at around 2 pm 02/13. She was walking with a friend and was told she may have seized but pt does not recall this and she claims she must have been unconscious. She did not fall or hit her head. She admits to headaches , fatigue, nausea, chills, palpitations prior to the syncope event, and burning in her legs. She denies any cp, sob, vomiting, diaphoresis. She endorsed that earlier this week she presented to [facility] c/o abdominal pain and they found her to have colitis and UTI so she was placed on bactrim, cipro, and flagyl and sent home. She states she initially took the medications and was starting to feel better but she resorted to drinking alcohol and smoking marijuana so she went to [facility] for detox but she left there due to them not feeding her or giving her own prescribed meds. ER course was notable for: (1)EKG- 1st degree AV block (2)negative , (3)ua tox Recent Travel:none PAST MEDICAL HISTORY: as per HPI PAST SURGICAL HISTORY: knee surgery Social History: Smoking: marijuana Alcohol: yes frequent on and off Drugs: marijuana Family History: Allergies beeswax Allergy (Severe, Verified 01/24/19 23:55) Difficulty Breathing hives, tongue swelling coconut oil Allergy (Severe, Verified 01/24/19 23:55) Itching No Known Drug Allergies Allergy (Verified 01/24/19 23:55) HOME MEDICATIONS: Home Medications Medication Instructions Recorded Amlodipine Besylate [Norvasc -] 5 mg PO DAILY 12/01/18 Acetaminophen [Tylenol] 650 mg PO QID PRN 02/10/19 Apixaban [Eliquis] 5 mg PO BID 02/10/19 Ciprofloxacin [Cipro (Restricted 500 mg PO Q12H 02/10/19 To Id)] Metronidazole 500 mg PO TID 02/10/19 Sulfamethoxazole/Trimethoprim 1 tab PO BID 7 Days #14 tablet 02/13/19 [Bactrim Ds -] REVIEW OF SYSTEMS Negative except as in HPI. PHYSICAL EXAMINATION Vital Signs - 24 hr 02/13/19 02/13/19 02/13/19 16:12 16:15 16:30 Temperature 99.6 F Pulse Rate 95 H Pulse Rate [ 89 Apical] Respiratory 16 20 Rate Blood Pressure 78/52 L Blood Pressure 102/72 [Right Arm] O2 Sat by Pulse 95 100 100 Oximetry (%) 02/13/19 02/13/19 02/13/19 17:53 20:58 23:54 Temperature Pulse Rate Pulse Rate [ 85 72 Apical] Respiratory 20 20 Rate Blood Pressure Blood Pressure 107/67 112/82 [Right Arm] O2 Sat by Pulse 100 100 98 Oximetry (%) GENERAL: Awake, alert, and fully oriented, in mild acute distress. HEAD: Normal with no signs of trauma. EYES: sclera anicteric, conjunctiva clear. No lid lag. NECK: Normal range of motion, supple without lymphadenopathy, no JVD, or masses. LUNGS: Breath sounds equal, clear to auscultation bilaterally. No wheezes, and no crackles. No accessory muscle use. HEART: Regular rate and rhythm, normal S1 and S2 without murmur, rub or gallop. ABDOMEN: distended, tympanitic, tender in lower hypogastric region, normoactive bowel sounds, guarding, no rebound, no masses. UPPER EXTREMITIES: warm, well-perfused. No peripheral edema. LOWER EXTREMITIES: warm, well-perfused. No peripheral edema. NEUROLOGICAL: Cranial nerves II-XII grossly intact. Normal speech. 2/5 LUE adduction 3/5 LUE abduction, 3/5 RUE abd/add, b/l LE's 3/5 with flexion and plantarflexion/dorsiflexion were both 3/5 b/l. sensation was intact b/l Laboratory Results - last 24 hr 02/13/19 02/13/19 02/13/19 16:20 16:20 16:20 WBC 3.9 L RBC 2.43 L Hgb 8.1 L Hct 24.6 L D MCV 101.3 H MCH 33.3 MCHC 32.9 RDW 13.9 Plt Count 100 L D MPV 9.2 D Absolute Neuts (auto) 2.2 Neutrophils % 56.7 D Lymphocytes % 31.8 Monocytes % 8.8 Eosinophils % 2.2 D Basophils % 0.5 Nucleated RBC % 0 PT with INR INR PTT (Actin FS) Sodium 138 Potassium 4.4 Chloride 106 Carbon Dioxide 22 Anion Gap 9 BUN 8.4 Creatinine 2.0 H Est GFR (CKD-EPI)AfAm 33.37 Est GFR (CKD-EPI)NonAf 28.79 Random Glucose 73 L Calcium 7.4 L Total Bilirubin 0.4 AST 78 H ALT 72 H Alkaline Phosphatase 126 H Creatine Kinase 227 H Creatine Kinase Index 1.1 CK-MB (CK-2) 2.7 Troponin I < 0.02 Total Protein 7.4 Albumin 3.0 L Beta HCG, Quant Serum , Qual Negative Urine Color Urine Appearance Urine pH Ur Specific [place] Urine Protein Urine Glucose (UA) Urine Ketones Urine Blood Urine Nitrite Urine Bilirubin Urine Urobilinogen Ur Leukocyte Esterase Urine WBC (Auto) Urine RBC (Auto) Urine Casts (Auto) U Epithel Cells (Auto) U Sm Round Cell (Auto) Urine Crystals (Auto) Urine Bacteria (Auto) Stool Occult Blood 02/13/19 02/13/19 02/13/19 16:51 16:51 17:13 WBC RBC Hgb Hct MCV MCH MCHC RDW Plt Count MPV Absolute Neuts (auto) Neutrophils % Lymphocytes % Monocytes % Eosinophils % Basophils % Nucleated RBC % PT with INR 15.40 H INR 1.30 H PTT (Actin FS) 42.1 H Sodium Potassium Chloride Carbon Dioxide Anion Gap BUN Creatinine Est GFR (CKD-EPI)AfAm Est GFR (CKD-EPI)NonAf Random Glucose Calcium Total Bilirubin AST ALT Alkaline Phosphatase Creatine Kinase Creatine Kinase Index CK-MB (CK-2) Troponin I Total Protein Albumin Beta HCG, Quant Serum , Qual Urine Color Yellow Urine Appearance Cloudy Urine pH 7.0 D Ur Specific [place] 1.010 Urine Protein 1+ H Urine Glucose (UA) Negative Urine Ketones Negative Urine Blood Negative Urine Nitrite Negative Urine Bilirubin Negative Urine Urobilinogen 0.2 Ur Leukocyte Esterase Trace Urine WBC (Auto) 17 Urine RBC (Auto) 2 Urine Casts (Auto) 7 U Epithel Cells (Auto) 19.4 U Sm Round Cell (Auto) None Urine Crystals (Auto) None Urine Bacteria (Auto) 312.7 Stool Occult Blood 02/13/19 02/13/19 02/13/19 17:43 20:00 22:53 WBC 5.9 RBC 3.52 L Hgb 11.7 Hct 34.9 D MCV 99.0 H MCH 33.1 MCHC 33.4 RDW 13.8 Plt Count 127 L D MPV 9.3 Absolute Neuts (auto) 3.0 Neutrophils % 50.4 Lymphocytes % 39.7 D Monocytes % 6.3 Eosinophils % 2.8 Basophils % 0.8 Nucleated RBC % 0 PT with INR INR PTT (Actin FS) Sodium 138 Potassium 3.7 Chloride 109 H Carbon Dioxide 21 Anion Gap 9 BUN 7.2 Creatinine 1.7 H Est GFR (CKD-EPI)AfAm 40.62 Est GFR (CKD-EPI)NonAf 35.05 Random Glucose 77 Calcium 7.1 L Total Bilirubin 0.4 AST 66 H ALT 64 H Alkaline Phosphatase 113 Creatine Kinase Creatine Kinase Index CK-MB (CK-2) Troponin I Total Protein 6.7 Albumin 2.7 L Beta HCG, Quant < 1.0 Serum , Qual Urine Color Urine Appearance Urine pH Ur Specific [place] Urine Protein Urine Glucose (UA) Urine Ketones Urine Blood Urine Nitrite Urine Bilirubin Urine Urobilinogen Ur Leukocyte Esterase Urine WBC (Auto) Urine RBC (Auto) Urine Casts (Auto) U Epithel Cells (Auto) U Sm Round Cell (Auto) Urine Crystals (Auto) Urine Bacteria (Auto) Stool Occult Blood Negative ASSESSMENT/PLAN: #Syncope 2/2 dehydration - UA tox to see if illicit drugs played a role. - IV NS 100cc/hr for dehydration - EKG shows NSR with 1O AV block and prolonged QTc. - pt currently on tele monitoring - head CT scan w/o contrast, - lumbosacral CT scan w/o contrast - EEG - carotid doppler and ECHO. - trying to obtain records from [facility]. #Colitis/UTI - IV flagyl 500 q6h and rocephin 1g to cover for colitis and UTI. - Urine culture pending. #Hypoalbuminemia - probable malnutrition - Will ensure adequate dietary protein intake and also consult supervisor cold rolling. #CKD - Acute exacerbation may be due to dehydration or less likely rhabdo. - Will hydrate gently and get kidney sonogram, urinalysis, PTH, phosphate and urine protein/creatinine ratio. - consult nephrology and avoid nephrotoxic agents such as NSAIDS, aminoglycosides, contrast dyes. #Anemia -Likely multifactorial. - basic anemia w/u including serial stool guaiacs, reticulocyte count and iron studies. - Would benefit from Procrit therapy once iron replete. #Alcohol abuse/Polysubstance abuse - Implement CIWA librium alcohol withdrawal protocol and do neurochecks. - Implement seizure, fall and aspiration precautions. - Treat with thiamine and folic acid and monitor electrolytes (Ca,Mg,K,P). - Counseled patient about abstaining from illicit drugs and alcohol. - consult family dinner service specialist and refer to alcohol/drug detox upon discharge. FEN: 100cc/hr NS WILL MONITOR LYTES low Na diet DVT prophylaxis - On Eliquis for splenic infarcts. 8. Advance directives - Full code Visit type - Emergency Visit Emergency Visit: Yes ED Registration Date: 02/13/19 Care time: The patient presented to the Emergency Department on the above date and was hospitalized for further evaluation of their emergent condition. - New Patient This patient is new to me today: Yes Date on this admission: 02/14/19 - Critical Care Critical Care patient: No ATTENDING PHYSICIAN STATEMENT I saw and evaluated the patient. I reviewed the resident's note and discussed the case with the resident. I agree with the resident's findings and plan as documented. SUBJECTIVE: OBJECTIVE: ASSESSMENT AND PLAN:
[2019-02-14] MEDS: APIXABAN 2.5 MG TABLET PO SCH ×4 (00:08→21:24)
[2019-02-14 00:52] VITALS: BMI 19.3
[2019-02-14] MEDS: ACETAMINOPHEN 325 MG TABLET (FP) PO PRN ×3 (01:03→19:29)
[2019-02-14 09:22] LABS: BILIRUBIN,TOTAL 0.5 mg/dL (0.2-1); CALCIUM 7.9 mg/dL (8.5-10.1); CREATININE 0.9 mg/dL (0.55-1.3); MAGNESIUM 1.9 mg/dL (1.8-2.4); PHOSPHOROUS 3.6 mg/dL (2.5-4.9); POTASSIUM 3.4 mmol/L (3.5-5.1); TOT PROT 7.2 g/dl (6.4-8.2)
[2019-02-14] MEDS ORDERED: cefTRIAXone SODIUM 1 GM VIAL ONE (09:33)
[2019-02-14] MEDS ORDERED: DEXTROSE 5%-WATER - 50 ML IVPB ONE (09:33)
[2019-02-14] MEDS: FOLIC ACID 1 MG TABLET (FP) PO SCH (09:58)
[2019-02-14] MEDS: THIAMINE HCL 100 MG TABLET (FP) PO SCH (09:58)
[2019-02-14] MEDS: amLODIPine BESYLATE 5 MG TABLET (FP) PO SCH (09:58)
[2019-02-14 10:42] LABS: BASO % 0.6 % (0-2.0); EOS % 5.4 % (0-4.5); HEMATOCRIT 31.7 % (32.4-45.2); HEMOGLOBIN 10.6 GM/dL (10.7-15.3); LYMPH % 42.2 % (8-40); MCH 33.2 pg (25.7-33.7); MCHC 33.2 g/dl (32.0-36.0); MEAN CELL VOLUME 99.9 fl (80-96); MEAN PLT VOLUME 9.3 fl (7.5-11.1); MONO % 8.1 % (3.8-10.2); NEUT % 43.7 % (42.8-82.8); PLATELET COUNT 123 K/MM3 (134-434); RBC 3.18 M/mm3 (3.60-5.2); RDW 13.6 % (11.6-15.6); WHITE BLOOD COUNT 3.7 K/mm3 (4.0-10.0)
[2019-02-14] MEDS: CEFTRIAXONE 1 GM in DEXTROSE 5%-WATER - 50 ML IVPB SCH (11:10)
[2019-02-14] MEDS: SODIUM CHLORIDE 1,000 ML IV SCH ×2 (11:11→21:24)
[2019-02-14 12:38] LABS: COCAINE, UR NEGATIVE ng/ml (CUTOFF=300); METHADONE, UR NEGATIVE ng/ml (CUTOFF=300); OPIATES, URI NEGATIVE ng/ml (CUTOFF=300); PHENCYCLIDINE,URINE NEGATIVE ng/ml (CUTOFF=25); URINE AMPHETAMINES NEGATIVE ng/ml (CUTOFF=500)
[2019-02-14 12:55] LABS: URINE BARBITURATES POSITIVE ng/ml (CUTOFF=200); URINE BENZODIAZEPINES POSITIVE ng/ml (CUTOFF=200)
--- NOTE | 2019-02-14 16:48 | PN ---
Progress Note (short form) - Note Progress Note: Patient is feeling better but continues to feel nauseas. Vital Signs Temperature 98.7 F 02/14/19 14:44 Pulse Rate 78 02/14/19 14:44 Respiratory Rate 68 H 02/14/19 09:08 Blood Pressure 126/91 02/14/19 14:44 O2 Sat by Pulse Oximetry (%) 100 02/14/19 09:08 HEENT: No Jaundice, eye redness or discharge, PERRLA, EOMI. Normocephalic, atraumatic. Neck: Supple, nontender. No palpable adenopathy or thyromegaly. No JVD Chest: Good effort. Clear to auscultation and percussion. Heart: RRR, S1S2 positive, no rub or murmur Abdomen: Not distended, soft, No rebound or guarding. Normal bowel sounds. Ext: Peripheral pulses intact. No leg edema. Skin: Warm and dry. No petechiae, rash or ecchymosis. Neuro: Alert. Oriented x3. CN 2-12 grossly intact. bilateral lower extremity weakness. Psych: Appropriate mood and affect. Good insight. CBCD WBC 3.7 K/mm3 (4.0-10.0) L 02/14/19 08:15 RBC 3.18 M/mm3 (3.60-5.2) L 02/14/19 08:15 Hgb 10.6 GM/dL (10.7-15.3) L 02/14/19 08:15 Hct 31.7 % (32.4-45.2) L 02/14/19 08:15 MCV 99.9 fl (80-96) H 02/14/19 08:15 MCHC 33.2 g/dl (32.0-36.0) 02/14/19 08:15 RDW 13.6 % (11.6-15.6) 02/14/19 08:15 Plt Count 123 K/MM3 (134-434) L 02/14/19 08:15 MPV 9.3 fl (7.5-11.1) 02/14/19 08:15 CMP Sodium 142 mmol/L (136-145) 02/14/19 08:15 Potassium 3.4 mmol/L (3.5-5.1) L 02/14/19 08:15 Chloride 112 mmol/L (98-107) H 02/14/19 08:15 Carbon Dioxide 22 mmol/L (21-32) 02/14/19 08:15 Anion Gap 8 MMOL/L (8-16) 02/14/19 08:15 BUN 6.0 mg/dL (7-18) L 02/14/19 08:15 Creatinine 0.9 mg/dL (0.55-1.3) 02/14/19 08:15 Random Glucose 94 mg/dL (74-106) 02/14/19 08:15 Calcium 7.9 mg/dL (8.5-10.1) L 02/14/19 08:15 Total Bilirubin 0.5 mg/dL (0.2-1) 02/14/19 08:15 AST 62 U/L (15-37) H 02/14/19 08:15 ALT 65 U/L (13-61) H 02/14/19 08:15 Alkaline Phosphatase 123 U/L (45-117) H 02/14/19 08:15 Total Protein 7.2 g/dl (6.4-8.2) 02/14/19 08:15 Albumin 3.0 g/dl (3.4-5.0) L 02/14/19 08:15 CARDIAC ENZYMES Creatine Kinase 227 U/L (26-192) H 02/13/19 16:20 Troponin I < 0.02 ng/ml (0.00-0.05) 02/13/19 16:20 Current Medications Generic Name Dose Route Start Last Admin Trade Name Freq PRN Reason Stop Dose Admin Acetaminophen 650 mg 02/13/19 21:37 02/14/19 09:56 Tylenol - PO 650 mg Q6H PRN Administration MODERATE PAIN Amlodipine Besylate 5 mg 02/13/19 22:00 02/14/19 09:58 Norvasc - PO 5 mg DAILY KRISTYN Administration Apixaban 2.5 mg 02/13/19 22:00 02/14/19 11:10 Eliquis - PO 2.5 mg BID KIRSTYN Administration Folic Acid 1 mg 02/14/19 10:00 02/14/19 09:58 Folic Acid - PO 1 mg DAILY KRISTYN Administration Sodium Chloride 1,000 mls @ 100 mls/hr 02/13/19 21:45 02/14/19 11:11 Normal Saline - IV 100 mls/hr ASDIR KRISTYN Administration Ceftriaxone Sodium 1 gm/ 50 mls @ 200 mls/hr 02/13/19 22:00 02/14/19 11:10 Dextrose IVPB 200 mls/hr DAILY KRISTYN Administration Protocol Metronidazole 500 mg in 100 mls @ 100 mls/hr 02/13/19 22:00 02/14/19 15:50 Flagyl 500mg Premixed Ivpb - IVPB 100 mls/hr Q6H-IV KRISTYN Administration Thiamine HCl 100 mg 02/14/19 10:00 02/14/19 09:58 Vitamin B1 - PO 100 mg DAILY KRISTYN Administration Home Medications Medication Instructions Recorded Amlodipine Besylate [Norvasc -] 5 mg PO DAILY 12/01/18 Acetaminophen [Tylenol] 650 mg PO QID PRN 02/10/19 Apixaban [Eliquis] 5 mg PO BID 02/10/19 Ciprofloxacin [Cipro (Restricted 500 mg PO Q12H 02/10/19 To Id)] Metronidazole 500 mg PO TID 02/10/19 Sulfamethoxazole/Trimethoprim 1 tab PO BID 7 Days #14 tablet 02/13/19 [Bactrim Ds -] Laboratory Tests 09/21/18 09/22/18 09/23/18 06:00 06:15 06:00 INR PTT (Actin FS) 75.8 H 77.7 H 69.7 H Opiates Screen Methadone Screen Barbiturate Screen Phencyclidine Screen Ur Amphetamines Screen MDMA (Ecstasy) Screen Benzodiazepines Screen Cocaine Screen U Marijuana (THC) Screen 09/23/18 02/14/19 06:00 12:00 INR 1.06 PTT (Actin FS) Opiates Screen Negative Methadone Screen Negative Barbiturate Screen Positive A* Phencyclidine Screen Negative Ur Amphetamines Screen Negative MDMA (Ecstasy) Screen Negative Benzodiazepines Screen Positive A* Cocaine Screen Negative U Marijuana (THC) Screen Positive A* Assessment and plan: This is a 48 y/o F with a 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 # Acute syncope due to dehydration #Acute dehydration on IVF # Acute UTI : rocephin 1g daily #Hypoalbuminemia due to malnutrition #Acute RF /CKD: on IVF #Anemia #Alcohol abuse/Polysubstance abuse #Hx of splenic Infarct: on Eliquis;patient was discharged originally with coumadin but returned to the hospital on Eliquis DVT prophylaxis - On Eliquis for splenic infarcts. Visit type - Emergency Visit Emergency Visit: Yes ED Registration Date: 02/13/19 Care time: The patient presented to the Emergency Department on the above date and was hospitalized for further evaluation of their emergent condition. - New Patient This patient is new to me today: Yes Date on this admission: 02/14/19 - Critical Care Critical Care patient: No - Discharge Referral Referred to [facility] Med [facility].C[facility] No
--- NOTE | 2019-02-15 00:12 | EKG ---
Test Reason : Blood Pressure : / mmHG Vent. Rate : 085 BPM Atrial Rate : 085 BPM P-R Int : 210 ms QRS Dur : 082 ms QT Int : 430 ms P-R-T Axes : 083 088 079 degrees QTc Int : 511 ms POOR DATA QUALITY, INTERPRETATION MAY BE ADVERSELY AFFECTED SINUS RHYTHM WITH 1ST DEGREE A-V BLOCK OTHERWISE NORMAL ECG WHEN COMPARED WITH ECG OF 02-DEC-2018 11:59, [place] INTERVAL HAS INCREASED CRITERIA FOR SEPTAL INFARCT ARE NO LONGER PRESENT Confirmed by ZAIRA FRAIRE MD ([id number]) on 02/15/2019 12:11:34 AM Referred By: Confirmed By:ZAIRA FRAIRE MD
[2019-02-15 06:40] LABS: SERUM IRON SATURATION 25 % (15-55); TOTAL IRON BINDING CAPACITY 247 ug/dL (250-450)
[2019-02-15] MEDS: ACETAMINOPHEN 325 MG TABLET (FP) PO PRN (08:20)
[2019-02-15] MEDS ORDERED: cefTRIAXone SODIUM 1 GM VIAL ONE (09:03)
[2019-02-15] MEDS ORDERED: DEXTROSE 5%-WATER - 50 ML IVPB ONE (09:04)
[2019-02-15] MEDS: FOLIC ACID 1 MG TABLET (FP) PO SCH (09:20)
[2019-02-15] MEDS: THIAMINE HCL 100 MG TABLET (FP) PO SCH (09:20)
[2019-02-15] MEDS: APIXABAN 2.5 MG TABLET PO SCH (09:20)
[2019-02-15] MEDS: amLODIPine BESYLATE 5 MG TABLET (FP) PO SCH (09:20)
[2019-02-15] MEDS: CEFTRIAXONE 1 GM in DEXTROSE 5%-WATER - 50 ML IVPB SCH (09:21)
[2019-02-15 11:20] VITALS: BP 123/91; PULSE 75; TEMP 97.8
--- NOTE | 2019-02-15 14:27 | PN ---
Teaching Attending Note Name of Resident: Nila Robertson ATTENDING PHYSICIAN STATEMENT I saw and evaluated the patient. I reviewed the resident's note and discussed the case with the resident. I agree with the resident's findings and plan as documented. SUBJECTIVE: Patient is comfortable with no acute distress, no nausea or vomiting. OBJECTIVE: Vital Signs Temperature 97.8 F 02/15/19 09:00 Pulse Rate 75 02/15/19 09:00 Respiratory Rate 20 02/15/19 09:00 Blood Pressure 123/91 02/15/19 09:00 O2 Sat by Pulse Oximetry (%) 100 02/14/19 21:00 HEENT: No Jaundice, eye redness or discharge, PERRLA, EOMI. Normocephalic, atraumatic. Neck: Supple, nontender. No palpable adenopathy or thyromegaly. No JVD Chest: Good effort. Clear to auscultation and percussion. Heart: RRR, S1S2 positive, no rub or murmur Abdomen: Not distended, soft, periumblical tenderness and no HSM. No rebound or guarding. Ext: Peripheral pulses intact. No leg edema. Skin: Warm and dry. No petechiae, rash or ecchymosis. Neuro: Alert. Oriented x3. CN 2-12 grossly intact. bilateral lower extremity weakness. Psych: Appropriate mood and affect. Good insight. CBCD WBC 3.7 K/mm3 (4.0-10.0) L 02/14/19 08:15 RBC 3.18 M/mm3 (3.60-5.2) L 02/14/19 08:15 Hgb 10.6 GM/dL (10.7-15.3) L 02/14/19 08:15 Hct 31.7 % (32.4-45.2) L 02/14/19 08:15 MCV 99.9 fl (80-96) H 02/14/19 08:15 MCHC 33.2 g/dl (32.0-36.0) 02/14/19 08:15 RDW 13.6 % (11.6-15.6) 02/14/19 08:15 Plt Count 123 K/MM3 (134-434) L 02/14/19 08:15 MPV 9.3 fl (7.5-11.1) 02/14/19 08:15 CMP Sodium 142 mmol/L (136-145) 02/14/19 08:15 Potassium 3.4 mmol/L (3.5-5.1) L 02/14/19 08:15 Chloride 112 mmol/L (98-107) H 02/14/19 08:15 Carbon Dioxide 22 mmol/L (21-32) 02/14/19 08:15 Anion Gap 8 MMOL/L (8-16) 02/14/19 08:15 BUN 6.0 mg/dL (7-18) L 02/14/19 08:15 Creatinine 0.9 mg/dL (0.55-1.3) 02/14/19 08:15 Random Glucose 94 mg/dL (74-106) 02/14/19 08:15 Calcium 7.9 mg/dL (8.5-10.1) L 02/14/19 08:15 Total Bilirubin 0.5 mg/dL (0.2-1) 02/14/19 08:15 AST 62 U/L (15-37) H 02/14/19 08:15 ALT 65 U/L (13-61) H 02/14/19 08:15 Alkaline Phosphatase 123 U/L (45-117) H 02/14/19 08:15 Total Protein 7.2 g/dl (6.4-8.2) 02/14/19 08:15 Albumin 3.0 g/dl (3.4-5.0) L 02/14/19 08:15 CARDIAC ENZYMES Creatine Kinase 227 U/L (26-192) H 02/13/19 16:20 Troponin I < 0.02 ng/ml (0.00-0.05) 02/13/19 16:20 Home Medications Medication Instructions Recorded Amlodipine Besylate [Norvasc -] 5 mg PO DAILY tablet 02/15/19 Apixaban [Eliquis -] 5 mg PO BID #30 tablet 02/15/19 Cefuroxime Axetil [Ceftin -] 250 mg PO BID #6 tablet 02/15/19 Thiamine HCl [Vitamin B1 -] 100 mg PO DAILY tablet 02/15/19 ASSESSMENT AND PLAN: This is a 48 y/o F with a 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 # Acute syncope due to dehydration , #Acute dehydration improved s/p IVF # Acute UTI : rocephin 1g daily , will continue with 3 more days of oral antibiotics #Hypoalbuminemia due to malnutrition #Acute RF /CKD: on IVF #Anemia #Alcohol abuse/Polysubstance abuse #Hx of splenic Infarct: on Eliquis;patient was discharged originally with coumadin but returned to the hospital on Eliquis DVT prophylaxis - On Eliquis for splenic infarcts.
--- NOTE | 2019-02-15 16:41 | DS ---
Physical Exam: SUBJECTIVE: Patient seen and examined at bedside this morning. No acute events overnight. OBJECTIVE: Vital Signs Temperature 97.8 F 02/15/19 09:00 Pulse Rate 75 02/15/19 09:00 Respiratory Rate 20 02/15/19 09:00 Blood Pressure 123/91 02/15/19 09:00 O2 Sat by Pulse Oximetry (%) 100 02/14/19 21:00 PHYSICAL EXAM GENERAL: The patient is awake, alert, and fully oriented, in no acute distress. HEAD: Normal with no signs of trauma. EYES: PERRLA, EOMI, sclera anicteric, conjunctiva clear. ENT:moist mucous membranes. NECK: full range of motion, supple. LUNGS: Breath sounds equal, clear to auscultation bilaterally. HEART: Regular rate and rhythm, S1, S2 without murmur, rub or gallop. ABDOMEN: Soft, nontender, nondistended, normoactive bowel sounds. EXTREMITIES: 2+ pulses, warm, well-perfused, no edema. NEUROLOGICAL: Cranial nerves II through XII grossly intact. Normal speech, normal gait. PSYCH: Normal mood, normal affect. SKIN: Warm, dry, normal turgor, no rashes or lesions noted. LABS Laboratory Results - last 24 hr 02/14/19 08:15 Iron 62 TIBC 247 L Iron Saturation 25 Unsaturated IBC 185 HOSPITAL COURSE: Date of Admission:02/13/19 Date of Discharge: 02/15/19 Patient is a 48 year old female with past medical history of CVA with residual b /l weakness, HTN, polysubstance abuse, splenic infarct that presented after a syncopal episode. Head CT and Carotid doppler were done. Patient was also noted to have elevated BUN/Cr. IVF were given and GEN resolved. She was also found to have a urinary tract infection, and was started on Ceftriaxone. She was discharged with instructions to continue Ceftin for 3 more days and to follow up with PCP and Hematology for further management of the splenic infarct. <Nila Robertson - Last Filed: 02/15/19 16:36> Physical Exam: SUBJECTIVE: Patient seen and examined OBJECTIVE: PHYSICAL EXAM GENERAL: The patient is awake, alert, and fully oriented, in no acute distress. HEAD: Normal with no signs of trauma. EYES: PERRL, extraocular movements intact, sclera anicteric, conjunctiva clear. ENT: Ears normal, nares patent, oropharynx clear without exudates, moist mucous membranes. NECK: Trachea midline, full range of motion, supple. LUNGS: Breath sounds equal, clear to auscultation bilaterally, no wheezes, no crackles, no accessory muscle use. HEART: Regular rate and rhythm, S1, S2 without murmur, rub or gallop. ABDOMEN: Soft, nontender, nondistended, normoactive bowel sounds, no guarding, no rebound, no hepatosplenomegaly, no masses. EXTREMITIES: 2+ pulses, warm, well-perfused, no edema. NEUROLOGICAL: Cranial nerves II through XII grossly intact. Normal speech, gait not observed. PSYCH: Normal mood, normal affect. SKIN: Warm, dry, normal turgor, no rashes or lesions noted. LABS HOSPITAL COURSE: Date of Admission:02/13/19 Date of Discharge: 02/16/19 Minutes to complete discharge: 35 <Sotero Cordova - Last Filed: 02/16/19 17:21> Discharge Summary Reason For Visit: ACUTE RENAL FAILURE - Home Medications Comprehensive Discharge Medication List: Ambulatory Orders Amlodipine Besylate [Norvasc -] 5 mg PO DAILY tablet 02/15/19 Apixaban [Eliquis -] 5 mg PO BID #30 tablet 02/15/19 Cefuroxime Axetil [Ceftin -] 250 mg PO BID #6 tablet 02/15/19 Thiamine HCl [Vitamin B1 -] 100 mg PO DAILY tablet 02/15/19 <Nila Robertson - Last Filed: 02/15/19 16:36> - Home Medications Comprehensive Discharge Medication List: Ambulatory Orders Amlodipine Besylate [Norvasc -] 5 mg PO DAILY tablet 02/15/19 Apixaban [Eliquis -] 5 mg PO BID #30 tablet 02/15/19 Cefuroxime Axetil [Ceftin -] 250 mg PO BID #6 tablet 02/15/19 Thiamine HCl [Vitamin B1 -] 100 mg PO DAILY tablet 02/15/19 <Sotero Cordova - Last Filed: 02/16/19 17:21> Condition: Stable - Instructions Diet, Activity, Other Instructions: Your visit You were admitted to the hospital because you fainted. This was likely caused by dehydration. CAT scan of the head was negative of any concerns. Keep yourself hydrated at all times. You also had a urinary tract infection and treated with antibiotics. Please continue taking the antibiotic for 3 more days. Medications Please take Ceftin 250mg twice a day for 3 days starting tomorrow. Continue all your home medications. Follow up Please follow up with the primary care doctor. Call the office at [facility] to schedule an appointment. Please follow up with hematology Dr. Hdz Additional info -Call 911 or go to the ED if with any fever, chills, headache, dizziness, chest pain, shortness Referrals: [facility] [place] [Provider Group] - 1 Week Antione Hdz MD [Staff Physician] - 1 Week Disposition: HOME This patient is new to me today: No Emergency Visit: Yes ED Registration Date: 02/13/19 Care time: The patient presented to the Emergency Department on the above date and was hospitalized for further evaluation of their emergent condition. Critical Care patient: No - Discharge Referral Referred to [facility] No <Sotero Cordova - Last Filed: 02/16/19 17:21> ATTENDING PHYSICIAN STATEMENT I saw and evaluated the patient. I reviewed the resident's note and discussed the case with the resident. I agree with the resident's findings and plan as documented. SUBJECTIVE: OBJECTIVE: ASSESSMENT AND PLAN: <Nila Robertson - Last Filed: 02/15/19 16:36> ATTENDING PHYSICIAN STATEMENT I saw and evaluated the patient. I reviewed the resident's note and discussed the case with the resident. I agree with the resident's findings and plan as documented. SUBJECTIVE: OBJECTIVE: ASSESSMENT AND PLAN: <Sotero Cordova - Last Filed: 02/16/19 17:21>
== END 2019-02-15 13:21 | disposition home or self-care (01) | DRG 469 ==
LOC: JER 15:25 → JERBED 20:40 → J6S 02-14 00:23
PROVIDERS: ADMIT Internal Medicine; ATTEND Internal Medicine
DX: N17.9 Acute kidney failure, unspecified (principal); E46 Unspecified protein-calorie malnutrition; M62.82 Rhabdomyolysis; I69.351 Hemiplegia and hemiparesis following cerebral infarction affecting right dominant side; E88.09 Other disorders of plasma-protein metabolism, not elsewhere classified; K76.0 Fatty (change of) liver, not elsewhere classified; F10.10 Alcohol abuse, uncomplicated; F12.10 Cannabis abuse, uncomplicated; F14.10 Cocaine abuse, uncomplicated; D64.9 Anemia, unspecified; F44.9 Dissociative and conversion disorder, unspecified; N18.9 Chronic kidney disease, unspecified; R55 Syncope and collapse; E86.0 Dehydration; I44.0 Atrioventricular block, first degree; Z68.1 Body mass index [BMI] 19.9 or less, adult
CPT/HCPCS: 36415; 70450-TC; 72131-TC; 76775-TC; 80053; 80061; 80307; 81003; 82272; 82550; 82553; 82728; 83036; 83540; 83550; 83721; 83735; 83970; 84100; 84443; 84484; 84702; 84703; 85025; 85610; 85730; 87077; 87086; 93005; 93010; 93880-TC; 99285-25; J0131; J7030

== ENCOUNTER 2019-03-12 16:17 | Inpatient (IN) | payer OTHER ==
[2019-03-12 17:17] VITALS: BMI 20.5
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
[2019-03-12] MEDS ORDERED: MAGNESIUM CITRATE 300 ML BOTTLE PO PRN (19:07)
[2019-03-12] MEDS ORDERED: MENTHOL/PHENOL 1 EACH UD MM PRN (19:07)
[2019-03-12] MEDS ORDERED: chlordiazePOXIDE HCL 25 MG CAPSULE PO PRN (19:07)
[2019-03-12] MEDS ORDERED: MAGNESIUM HYDROX 2400MG/30ML ORAL SUSPENSION 30 ML CUP PO PRN (19:07)
[2019-03-12] MEDS ORDERED: MAG HYDROX/AL HYDROX/SIMETH 30 ML UNIT-DOSE CUP PO PRN (19:07)
[2019-03-12] MEDS ORDERED: BISMUTH SUBSALICYLATE 524 MG/30 ML UD PO PRN (19:07)
[2019-03-12] MEDS ORDERED: ACETAMINOPHEN 325 MG TABLET (FP) PO PRN (19:07)
[2019-03-12] MEDS: ACETAMINOPHEN 325 MG TABLET (FP) PO PRN (20:33)
[2019-03-12] MEDS: QUEtiapine FUMARATE 50 MG TABLET PO SCH (22:43)
[2019-03-12] MEDS: chlordiazePOXIDE HCL 25 MG CAPSULE PO SCH (22:43)
[2019-03-12] MEDS: THIAMINE HCL 100 MG TABLET (FP) PO SCH (22:43)
[2019-03-12] MEDS: APIXABAN 5 MG TABLET PO SCH (22:43)
[2019-03-12] MEDS: MELATONIN 5 MG TABLETS PO PRN (22:44)
[2019-03-13] MEDS: ACETAMINOPHEN 325 MG TABLET (FP) PO PRN ×2 (05:55→12:20)
[2019-03-13] MEDS: chlordiazePOXIDE HCL 25 MG CAPSULE PO SCH ×4 (05:55→22:10)
[2019-03-13 10:56] LABS: ALBUMIN 3.5 g/dl (3.4-5.0); BILIRUBIN,TOTAL 0.2 mg/dL (0.2-1); CALCIUM 9.4 mg/dL (8.5-10.1); CREATININE 0.8 mg/dL (0.55-1.3); POTASSIUM 4.2 mmol/L (3.5-5.1); TOT PROT 8.1 g/dl (6.4-8.2)
[2019-03-13] MEDS: APIXABAN 5 MG TABLET PO SCH ×2 (10:56→22:10)
[2019-03-13] MEDS: PRENATAL VITAMINS W/ FOLIC ACID TABLET (FP) PO SCH (10:57)
[2019-03-13] MEDS: amLODIPine BESYLATE 5 MG TABLET (FP) PO SCH (10:57)
[2019-03-13] MEDS: QUEtiapine FUMARATE 50 MG TABLET PO SCH (10:57)
[2019-03-13 11:00] LABS: HEMATOCRIT 30.1 % (32.4-45.2); MCH 33.5 pg (25.7-33.7); MCHC 33.4 g/dl (32.0-36.0); MEAN CELL VOLUME 100.4 fl (80-96); MEAN PLT VOLUME 8.4 fl (7.5-11.1); PLATELET COUNT 319 K/MM3 (134-434); RDW 14.6 % (11.6-15.6); WHITE BLOOD COUNT 4.1 K/mm3 (4.0-10.0)
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
[2019-03-13] MEDS: LIDOCAINE 5% TOPICAL PATCH TP SCH (14:02)
[2019-03-13] MEDS: VITAMINS A AND D TOPICAL OINTMENT 60 GM TUBE TP SCH ×3 (15:20→23:03)
[2019-03-13] MEDS: COLLOIDAL OATMEAL 1 BAR EACH TP PRN (17:30)
[2019-03-13] MEDS: METHOCARBAMOL 500 MG TABLET PO PRN (17:32)
[2019-03-13] MEDS: IBUPROFEN 400 MG TABLET (FP) PO PRN (17:32)
[2019-03-13] MEDS: THIAMINE HCL 100 MG TABLET (FP) PO SCH (22:10)
[2019-03-13] MEDS: MELATONIN 5 MG TABLETS PO PRN (22:11)
[2019-03-13] MEDS: hydrOXYzine PAMOATE 25 MG CAPSULE (FP) PO PRN (22:16)
[2019-03-13] MEDS: LIDOCAINE PATCH REMOVAL MC SCH (23:03)
[2019-03-14] MEDS: chlordiazePOXIDE HCL 25 MG CAPSULE PO SCH ×4 (05:35→22:07)
[2019-03-14] MEDS: ACETAMINOPHEN 325 MG TABLET (FP) PO PRN (05:35)
[2019-03-14] MEDS: VITAMINS A AND D TOPICAL OINTMENT 60 GM TUBE TP SCH ×3 (05:39→17:54)
[2019-03-14] MEDS: APIXABAN 5 MG TABLET PO SCH ×2 (10:28→22:09)
[2019-03-14] MEDS: PRENATAL VITAMINS W/ FOLIC ACID TABLET (FP) PO SCH (10:29)
[2019-03-14] MEDS: LIDOCAINE 5% TOPICAL PATCH TP SCH (10:29)
[2019-03-14] MEDS: IBUPROFEN 400 MG TABLET (FP) PO PRN ×2 (10:30→22:11)
[2019-03-14] MEDS: METHOCARBAMOL 500 MG TABLET PO PRN (10:30)
[2019-03-14] MEDS: amLODIPine BESYLATE 5 MG TABLET (FP) PO SCH (10:31)
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
[2019-03-14] MEDS: QUEtiapine FUMARATE 50 MG TABLET PO SCH (11:58)
--- NOTE | 2019-03-14 14:12 | PN ---
[facility] CIWA - CIWA Score Nausea/Vomitin-No Nausea/No Vomiting Muscle Tremors: None Anxiety: 3 Agitation: 2 Paroxysmal Sweats: No Perspiration Orientation: 0-Oriented Tacttile Disturbances: 2-Mild Itch/Numbness/Burn Auditory Disturbances: 0-None Visual Disturbances: 2-Mild Sensitivity Headache: 3-Moderate CIWA-Ar Total Score: 12 S Progress Note (SOAP) Subjective: Body Aches, H/A, Interrupted Sleep. Objective: PATIENT A & O X 3, OBSERVED AMBULATING ON UNIT UNASSISTED. IN NO ACUTE DISTRESS. 03/14/19 14:13 Vital Signs Temperature 98.8 F 03/14/19 09:39 Pulse Rate 90 03/14/19 09:39 Respiratory Rate 18 03/14/19 09:39 Blood Pressure 121/94 03/14/19 09:39 O2 Sat by Pulse Oximetry (%) Laboratory Tests 03/12/19 03/13/19 03/13/19 18:03 07:30 07:30 WBC 4.1 RBC 3.00 L Hgb 10.0 L Hct 30.1 L MCV 100.4 H MCH 33.5 MCHC 33.4 RDW 14.6 Plt Count 319 D MPV 8.4 Sodium 144 Potassium 4.2 Chloride 108 H Carbon Dioxide 28 Anion Gap 7 L BUN 14.0 Creatinine 0.8 Est GFR (CKD-EPI)AfAm 101.04 Est GFR (CKD-EPI)NonAf 87.18 Random Glucose 73 L Calcium 9.4 Total Bilirubin 0.2 AST 45 H ALT 37 Alkaline Phosphatase 94 Total Protein 8.1 Albumin 3.5 POC Urine HCG, Qual Negative RPR Titer 03/13/19 07:30 WBC RBC Hgb Hct MCV MCH MCHC RDW Plt Count MPV Sodium Potassium Chloride Carbon Dioxide Anion Gap BUN Creatinine Est GFR (CKD-EPI)AfAm Est GFR (CKD-EPI)NonAf Random Glucose Calcium Total Bilirubin AST ALT Alkaline Phosphatase Total Protein Albumin POC Urine HCG, Qual RPR Titer Nonreactive LABS NOTED. PATIENT HAS BEEN ANEMIC AND HAS HAD ELEVATED AST LEVELS ON PREVIOUS ADMISSIONS. 03/14/19 14:15 Assessment: 03/14/19 14:13 WITHDRAWAL SYMPTOMS. ANEMIA. ELEVATED AST LEVEL. 03/14/19 14:14 Plan: CONTINUE DETOX. INCREASE DAILY PO WATER INTAKE. PATIENT IS CURRENTLY RECEIVING DAILY MVI CONTAINING B VITAMINS AND IRON WHILE ADMITTED FOR DETOX. REPEAT CBC TOMORROW AM FOR ANEMIA NOTED ON DETOX ADMISSION LABORATORY ASSESSMENT.
[2019-03-14] MEDS: THIAMINE HCL 100 MG TABLET (FP) PO SCH (22:09)
[2019-03-14] MEDS: MIRTAZAPINE 15 MG TABLET (FP) PO SCH (22:09)
[2019-03-14] MEDS: MELATONIN 5 MG TABLETS PO PRN (22:10)
[2019-03-14] MEDS: LIDOCAINE PATCH REMOVAL MC SCH (22:56)
[2019-03-15] MEDS ORDERED: chlordiazePOXIDE HCL 10 MG CAPSULE PO PRN
[2019-03-15] MEDS: chlordiazePOXIDE HCL 10 MG CAPSULE PO SCH ×4 (06:06→22:54)
[2019-03-15] MEDS: VITAMINS A AND D TOPICAL OINTMENT 60 GM TUBE TP SCH ×4 (06:06→20:15)
[2019-03-15] MEDS: IBUPROFEN 400 MG TABLET (FP) PO PRN ×2 (06:07→22:56)
[2019-03-15 10:12] LABS: EOS % 7.6 % (0-4.5); HEMATOCRIT 31.8 % (32.4-45.2); HEMOGLOBIN 10.6 GM/dL (10.7-15.3); MCH 33.9 pg (25.7-33.7); MCHC 33.4 g/dl (32.0-36.0); MEAN CELL VOLUME 101.4 fl (80-96); MEAN PLT VOLUME 8.6 fl (7.5-11.1); MONO % 8.1 % (3.8-10.2); NEUT % 41.3 % (42.8-82.8); PLATELET COUNT 313 K/MM3 (134-434); RBC 3.13 M/mm3 (3.60-5.2); RDW 14.5 % (11.6-15.6); WHITE BLOOD COUNT 3.7 K/mm3 (4.0-10.0)
[2019-03-15] MEDS: amLODIPine BESYLATE 5 MG TABLET (FP) PO SCH (10:24)
[2019-03-15] MEDS: PRENATAL VITAMINS W/ FOLIC ACID TABLET (FP) PO SCH (10:24)
[2019-03-15] MEDS: METHOCARBAMOL 500 MG TABLET PO PRN ×2 (10:25→22:57)
[2019-03-15] MEDS: APIXABAN 5 MG TABLET PO SCH ×2 (10:25→22:53)
[2019-03-15] MEDS: ACETAMINOPHEN 325 MG TABLET (FP) PO PRN (10:27)
[2019-03-15] MEDS: LIDOCAINE 5% TOPICAL PATCH TP SCH (10:28)
--- NOTE | 2019-03-15 11:35 | EKG ---
Test Reason : Blood Pressure : / mmHG Vent. Rate : 083 BPM Atrial Rate : 083 BPM P-R Int : 184 ms QRS Dur : 086 ms QT Int : 414 ms P-R-T Axes : 076 084 070 degrees QTc Int : 486 ms NORMAL SINUS RHYTHM PROLONGED QT ABNORMAL ECG WHEN COMPARED WITH ECG OF 13-FEB-2019 16:21, NO SIGNIFICANT CHANGE WAS FOUND Confirmed by ZAIRA FRAIRE MD ([id number]) on 03/15/2019 11:34:58 AM Referred By: SAMI KAUR Confirmed By:ZAIRA FRAIRE MD
--- NOTE | 2019-03-15 14:06 | PN ---
[facility] CIWA - CIWA Score Nausea/Vomitin-No Nausea/No Vomiting Muscle Tremors: 3 Anxiety: 3 Agitation: 3 Paroxysmal Sweats: 2 Orientation: 0-Oriented Tacttile Disturbances: 0-None Auditory Disturbances: 0-None Visual Disturbances: 0-None Headache: 0-None Present CIWA-Ar Total Score: 11 S Progress Note (SOAP) Subjective: irritable agitation sweats Objective: 03/15/19 14:05 Vital Signs Temperature 97.9 F 03/15/19 13:58 Pulse Rate 94 H 03/15/19 13:58 Respiratory Rate 17 03/15/19 13:58 Blood Pressure 123/85 03/15/19 13:58 O2 Sat by Pulse Oximetry (%) Laboratory Tests 03/12/19 03/13/19 03/13/19 18:03 07:30 07:30 WBC 4.1 RBC 3.00 L Hgb 10.0 L Hct 30.1 L MCV 100.4 H MCH 33.5 MCHC 33.4 RDW 14.6 Plt Count 319 D MPV 8.4 Absolute Neuts (auto) Neutrophils % Lymphocytes % Monocytes % Eosinophils % Basophils % Nucleated RBC % Sodium 144 Potassium 4.2 Chloride 108 H Carbon Dioxide 28 Anion Gap 7 L BUN 14.0 Creatinine 0.8 Est GFR (CKD-EPI)AfAm 101.04 Est GFR (CKD-EPI)NonAf 87.18 Random Glucose 73 L Calcium 9.4 Total Bilirubin 0.2 AST 45 H ALT 37 Alkaline Phosphatase 94 Total Protein 8.1 Albumin 3.5 POC Urine HCG, Qual Negative RPR Titer 03/13/19 03/15/19 07:30 06:45 WBC 3.7 L RBC 3.13 L Hgb 10.6 L Hct 31.8 L MCV 101.4 H MCH 33.9 H MCHC 33.4 RDW 14.5 Plt Count 313 MPV 8.6 Absolute Neuts (auto) 1.5 Neutrophils % 41.3 L Lymphocytes % 42.0 H Monocytes % 8.1 Eosinophils % 7.6 H Basophils % 1.0 Nucleated RBC % 0 Sodium Potassium Chloride Carbon Dioxide Anion Gap BUN Creatinine Est GFR (CKD-EPI)AfAm Est GFR (CKD-EPI)NonAf Random Glucose Calcium Total Bilirubin AST ALT Alkaline Phosphatase Total Protein Albumin POC Urine HCG, Qual RPR Titer Nonreactive labs noted aaox3 ambulating no acute distress Assessment: 03/15/19 14:05 mild withdrawal sx Plan: continue detox increase fluids
[2019-03-15] MEDS: hydrOXYzine PAMOATE 25 MG CAPSULE (FP) PO PRN (17:43)
[2019-03-15] MEDS: COLLOIDAL OATMEAL 1 BAR EACH TP PRN (18:30)
[2019-03-15] MEDS: MIRTAZAPINE 15 MG TABLET (FP) PO SCH (22:54)
[2019-03-15] MEDS: THIAMINE HCL 100 MG TABLET (FP) PO SCH (22:55)
[2019-03-15] MEDS: MELATONIN 5 MG TABLETS PO PRN (22:55)
[2019-03-15] MEDS: LIDOCAINE PATCH REMOVAL MC SCH (23:11)
[2019-03-16] MEDS: VITAMINS A AND D TOPICAL OINTMENT 60 GM TUBE TP SCH ×4 (03:02→17:45)
[2019-03-16] MEDS: chlordiazePOXIDE HCL 10 MG CAPSULE PO SCH ×2 (05:17→17:44)
[2019-03-16] MEDS: IBUPROFEN 400 MG TABLET (FP) PO PRN ×2 (05:18→22:07)
[2019-03-16] MEDS: PRENATAL VITAMINS W/ FOLIC ACID TABLET (FP) PO SCH (10:17)
[2019-03-16] MEDS: APIXABAN 5 MG TABLET PO SCH ×2 (10:17→22:05)
[2019-03-16] MEDS: amLODIPine BESYLATE 5 MG TABLET (FP) PO SCH (10:17)
[2019-03-16] MEDS: METHOCARBAMOL 500 MG TABLET PO PRN (10:18)
[2019-03-16] MEDS: ACETAMINOPHEN 325 MG TABLET (FP) PO PRN (10:18)
[2019-03-16] MEDS: hydrOXYzine PAMOATE 25 MG CAPSULE (FP) PO PRN ×2 (10:28→22:07)
[2019-03-16] MEDS: LIDOCAINE 5% TOPICAL PATCH TP SCH (10:45)
--- NOTE | 2019-03-16 12:21 | PN ---
[facility] CIWA - CIWA Score Nausea/Vomitin-No Nausea/No Vomiting Muscle Tremors: 2 Anxiety: 1-Mildly Anxious Agitation: 1-Slight > Activity Paroxysmal Sweats: 1-Minimal Palms Moist Orientation: 0-Oriented Tacttile Disturbances: 0-None Auditory Disturbances: 0-None Visual Disturbances: 0-None Headache: 0-None Present CIWA-Ar Total Score: 5 [facility] Progress Note (SOAP) Subjective: irritable agitation Objective: 03/16/19 12:20 Vital Signs Temperature 98.0 F 03/16/19 09:41 Pulse Rate 77 03/16/19 09:41 Respiratory Rate 18 03/16/19 09:41 Blood Pressure 119/86 03/16/19 09:41 O2 Sat by Pulse Oximetry (%) aaox3 ambulating no acute distress Assessment: 03/16/19 12:21 mild withdrawal sx Plan: continue detox d/c in am
[2019-03-16] MEDS: THIAMINE HCL 100 MG TABLET (FP) PO SCH (22:05)
[2019-03-16] MEDS: MIRTAZAPINE 15 MG TABLET (FP) PO SCH (22:07)
[2019-03-16] MEDS: LIDOCAINE PATCH REMOVAL MC SCH (22:27)
[2019-03-17] MEDS: VITAMINS A AND D TOPICAL OINTMENT 60 GM TUBE TP SCH ×2 (00:35→08:37)
[2019-03-17] MEDS ORDERED: chlordiazePOXIDE HCL 10 MG CAPSULE PO ONE (05:00)
[2019-03-17] MEDS: IBUPROFEN 400 MG TABLET (FP) PO PRN (05:40)
--- NOTE | 2019-03-17 09:31 | DS ---
[facility] Detox Discharge Summary Admission Date: 03/12/19 Discharge Date: 03/17/19 - History Present History: Alcohol Dependence, Cannabis Dependence, Cocaine Dependence - Physical Exam Results Vital Signs: Vital Signs Temperature 97.5 F L 03/17/19 06:00 Pulse Rate 73 03/17/19 06:00 Respiratory Rate 16 03/17/19 06:00 Blood Pressure 117/79 03/17/19 06:00 O2 Sat by Pulse Oximetry (%) Pertinent Admission Physical Exam Findings: pt arrived in withdrawals Laboratory Tests 03/12/19 03/13/19 03/13/19 18:03 07:30 07:30 WBC 4.1 RBC 3.00 L Hgb 10.0 L Hct 30.1 L MCV 100.4 H MCH 33.5 MCHC 33.4 RDW 14.6 Plt Count 319 D MPV 8.4 Absolute Neuts (auto) Neutrophils % Lymphocytes % Monocytes % Eosinophils % Basophils % Nucleated RBC % Sodium 144 Potassium 4.2 Chloride 108 H Carbon Dioxide 28 Anion Gap 7 L BUN 14.0 Creatinine 0.8 Est GFR (CKD-EPI)AfAm 101.04 Est GFR (CKD-EPI)NonAf 87.18 Random Glucose 73 L Calcium 9.4 Total Bilirubin 0.2 AST 45 H ALT 37 Alkaline Phosphatase 94 Total Protein 8.1 Albumin 3.5 POC Urine HCG, Qual Negative RPR Titer 03/13/19 03/15/19 07:30 06:45 WBC 3.7 L RBC 3.13 L Hgb 10.6 L Hct 31.8 L MCV 101.4 H MCH 33.9 H MCHC 33.4 RDW 14.5 Plt Count 313 MPV 8.6 Absolute Neuts (auto) 1.5 Neutrophils % 41.3 L Lymphocytes % 42.0 H Monocytes % 8.1 Eosinophils % 7.6 H Basophils % 1.0 Nucleated RBC % 0 Sodium Potassium Chloride Carbon Dioxide Anion Gap BUN Creatinine Est GFR (CKD-EPI)AfAm Est GFR (CKD-EPI)NonAf Random Glucose Calcium Total Bilirubin AST ALT Alkaline Phosphatase Total Protein Albumin POC Urine HCG, Qual RPR Titer Nonreactive today pt is aaox3 ambulating no acute distress no s/s of withdrawals - Treatment Hospital Course: Detox Protocol Followed, Detoxed Safely, Responded well, Discharged Condition Good, Rehab Referral Accepted Patient has Accepted a Rehab Referral to: referred to inpatient rehab [facility] - Medication Discharge Medications: Ambulatory Orders Amlodipine Besylate [Norvasc -] 5 mg PO DAILY tablet 02/15/19 Apixaban [Eliquis -] 5 mg PO BID #30 tablet 02/15/19 Cefuroxime Axetil [Ceftin -] 250 mg PO BID #6 tablet 02/15/19 Thiamine HCl [Vitamin B1 -] 100 mg PO DAILY tablet 02/15/19 Quetiapine Fumarate [Seroquel] 50 tab PO DAILY 03/12/19 - Diagnosis (1) Alcohol dependence with uncomplicated withdrawal Current Visit: Yes Status: Chronic (2) Anemia Current Visit: Yes Status: Chronic Qualifiers: Anemia type: iron deficiency Iron deficiency anemia type: unspecified iron deficiency Qualified Code(s): D50.9 - Iron deficiency anemia, unspecified (3) Cannabis dependence Current Visit: Yes Status: Chronic (4) Cocaine abuse Current Visit: Yes Status: Chronic (5) Insomnia Current Visit: Yes Status: Chronic Qualifiers: Insomnia type: drug-induced Qualified Code(s): F19.982 - Other psychoactive substance use, unspecified with psychoactive substance-induced sleep disorder (6) Substance induced mood disorder Current Visit: Yes Status: Chronic (7) Abnormal CT scan, gastrointestinal tract Current Visit: No Status: Acute (8) Depressed affect Current Visit: Yes Status: Acute (9) Elevated liver enzymes Current Visit: Yes Status: Acute (10) Mobitz (type) I (Wenckebach's) atrioventricular block Current Visit: No Status: Acute (11) PSVT (paroxysmal supraventricular tachycardia) Current Visit: No Status: Acute (12) Prolonged QT interval Current Visit: No Status: Acute (13) Substance-induced anxiety disorder Current Visit: No Status: Acute (14) Substance-induced sleep disorder Current Visit: No Status: Acute (15) Anxiety and depression Current Visit: No Status: Chronic (16) COPD (chronic obstructive pulmonary disease) Current Visit: No Status: Chronic (17) Cannabis dependence Current Visit: No Status: Chronic (18) Drug-induced mood disorder Current Visit: No Status: Chronic (19) Hypertension Current Visit: Yes Status: Chronic Qualifiers: Hypertension type: essential hypertension Qualified Code(s): I10 - Essential (primary) hypertension (20) PCP abuse Current Visit: Yes Status: Chronic (21) Substance induced mood disorder Current Visit: Yes Status: Chronic (22) Old cerebrovascular accident (CVA) without late effect Current Visit: No Status: Inactive - AMA Did Patient Leave Against Medical Advice: No
[2019-03-17 09:43] VITALS: BP 125/89; PULSE 83; TEMP 98.1
[2019-03-17] MEDS: APIXABAN 5 MG TABLET PO SCH ×2 (10:04→10:08)
[2019-03-17] MEDS: amLODIPine BESYLATE 5 MG TABLET (FP) PO SCH ×2 (10:04→10:08)
[2019-03-17] MEDS: LIDOCAINE 5% TOPICAL PATCH TP SCH ×2 (10:04→10:08)
[2019-03-17] MEDS: PRENATAL VITAMINS W/ FOLIC ACID TABLET (FP) PO SCH ×2 (10:05→10:09)
== END 2019-03-17 10:50 | disposition other institution (70) | DRG 774 ==
LOC: YASAS 16:17 → Y3N 19:30 → Y6N 03-14 12:48
PROVIDERS: ADMIT Surgery; ATTEND Surgery
PROC: HZ2ZZZZ Detoxification Services for Substance Abuse Treatment (ICD-10-PCS; principal; 2019-03-12)
DX: F10.230 Alcohol dependence with withdrawal, uncomplicated (principal); F10.282 Alcohol dependence with alcohol-induced sleep disorder; F12.20 Cannabis dependence, uncomplicated; F14.10 Cocaine abuse, uncomplicated; F16.10 Hallucinogen abuse, uncomplicated; F19.24 Other psychoactive substance dependence with psychoactive substance-induced mood disorder; F19.280 Other psychoactive substance dependence with psychoactive substance-induced anxiety disorder; F19.282 Other psychoactive substance dependence with psychoactive substance-induced sleep disorder; F31.9 Bipolar disorder, unspecified; F41.9 Anxiety disorder, unspecified; I10 Essential (primary) hypertension; I47.1 Supraventricular tachycardia; I44.0 Atrioventricular block, first degree; I45.81 Long QT syndrome; R94.5 Abnormal results of liver function studies; R74.0 Nonspecific elevation of levels of transaminase and lactic acid dehydrogenase [LDH]; D64.9 Anemia, unspecified; K76.0 Fatty (change of) liver, not elsewhere classified; Z86.73 Personal history of transient ischemic attack (TIA), and cerebral infarction without residual deficits; Z91.5 Personal history of self-harm
CPT/HCPCS: 36415; 80053; 81025; 85025; 85027; 86593; 93005; 93010

== ENCOUNTER 2019-03-17 10:57 | Inpatient (IN) | payer OTHER ==
[2019-03-17] MEDS ORDERED: LOPERAMIDE HCL 2 MG CAPSULE PO PRN (12:26)
[2019-03-17] MEDS ORDERED: NICOTINE POLACRILEX 4 MG GUM BUC PRN (12:26)
[2019-03-17] MEDS ORDERED: IBUPROFEN 400 MG TABLET (FP) PO PRN (12:26)
[2019-03-17] MEDS ORDERED: MENTHOL/PHENOL 1 EACH UD MM PRN (12:26)
[2019-03-17] MEDS ORDERED: guaiFENesin 200 MG/10 ML 10 ML UNIT-DOSE CUPS PO PRN (12:26)
[2019-03-17] MEDS ORDERED: MAGNESIUM HYDROX 2400MG/30ML ORAL SUSPENSION 30 ML CUP PO PRN (12:26)
[2019-03-17] MEDS ORDERED: MAGNESIUM CITRATE 300 ML BOTTLE PO PRN (12:26)
[2019-03-17] MEDS ORDERED: hydrOXYzine PAMOATE 50 MG CAPSULE (FP) PO PRN (12:26)
[2019-03-17] MEDS ORDERED: P-EPHED 60MG/TRIPROLIDI 2.5MG TABLET PO PRN (12:26)
--- NOTE | 2019-03-17 12:26 | HP ---
[facility] Rehab Assess/Revision - Admission History Admitted to Rehab from: [address] - Vital signs Vital Signs: Vital Signs Period Temp Pulse Resp BP Sys/Enriquez Pulse Ox Last 24 Hr 98.4 F 105 18 113/88 - Findings Detox History & Physical reviewed: Yes Concur with findings: Yes Inpatient Rehab Admission - Rehab Decision to Admit Inpatient rehab admission?: Yes - Initial Determination Are CD services needed?: Yes Free of communicable disease: Yes Not in need of hospitalization: Yes - Rehab Admission Criteria Previous failed treatment: Yes Poor recovery environment: Yes Comorbidities: Yes Lacks judgement: Yes Patient is meeting Inpatient Rehab admission criteria:: Yes
[2019-03-17] MEDS: ACETAMINOPHEN 325 MG TABLET (FP) PO PRN ×2 (13:33→21:45)
[2019-03-17] MEDS: APIXABAN 5 MG TABLET PO SCH (21:46)
[2019-03-17] MEDS: THIAMINE HCL 100 MG TABLET (FP) PO SCH (21:48)
[2019-03-17] MEDS: METHYL SALICYLATE/MENTHOL OINT 30 GM TUBE TP SCH (21:49)
[2019-03-17] MEDS ORDERED: MIRTAZAPINE 15 MG TABLET (FP) PO SCH (22:00)
[2019-03-17] MEDS: MELATONIN 5 MG TABLETS PO PRN (22:15)
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
[2019-03-18] MEDS: NICOTINE 21 MG/24 HOURS TOPICAL PATCH TD SCH (09:39)
[2019-03-18] MEDS: METHYL SALICYLATE/MENTHOL OINT 30 GM TUBE TP SCH ×2 (09:39→21:11)
[2019-03-18] MEDS: PRENATAL VITAMINS W/ FOLIC ACID TABLET (FP) PO SCH (09:39)
[2019-03-18] MEDS: amLODIPine BESYLATE 5 MG TABLET (FP) PO SCH (09:39)
[2019-03-18] MEDS: APIXABAN 5 MG TABLET PO SCH ×2 (09:39→21:09)
[2019-03-18] MEDS: ACETAMINOPHEN 325 MG TABLET (FP) PO PRN ×2 (09:40→21:09)
[2019-03-18] MEDS ORDERED: QUEtiapine FUMARATE 100 MG TABLET (FP) PO SCH (10:00)
[2019-03-18 14:41] LABS: EPI CELLS 15.3 /HPF (0-5/HPF); HYALINE CASTS 6 /lpf (0-8); URINE APPEARANCE CLEAR; URINE BACTERIA 340.3 /hpf (NEGATIVE); URINE BILIRUBIN NEGATIVE (NEGATIVE); URINE COLOR YELLOW; URINE GLUCOSE (UA) NEGATIVE (NEGATIVE); URINE KETONE NEGATIVE (NEGATIVE); URINE LEUK ESTERASE 1+ (NEGATIVE); URINE NITRITE NEGATIVE (NEGATIVE); URINE PROTEIN NEGATIVE (NEGATIVE); URINE RBC 0 /hpf (0-4); URINE UROBILINOGEN 0.2 mg/dL (0.2-1.0); URINE WBC 4 /hpf (0-5)
[2019-03-18] MEDS: VANCOMYCIN HCL 125 MG PO SCH ×2 (15:49→21:10)
[2019-03-18] MEDS: MIRTAZAPINE 15 MG TABLET (FP) PO SCH (21:09)
[2019-03-18] MEDS: THIAMINE HCL 100 MG TABLET (FP) PO SCH (21:11)
[2019-03-18] MEDS: MELATONIN 5 MG TABLETS PO PRN (21:11)
[2019-03-18] MEDS ORDERED: PT OWN MED DRAWER 7, Y5N ONE (23:26)
[2019-03-19] MEDS ORDERED: PT OWN MED DRAWER 7, Y5N ONE ×6 (03:41→22:33)
[2019-03-19] MEDS: VANCOMYCIN HCL 125 MG PO SCH ×4 (06:38→23:15)
[2019-03-19] MEDS: PRENATAL VITAMINS W/ FOLIC ACID TABLET (FP) PO SCH (09:56)
[2019-03-19] MEDS: amLODIPine BESYLATE 5 MG TABLET (FP) PO SCH (09:56)
[2019-03-19] MEDS: APIXABAN 5 MG TABLET PO SCH ×2 (09:56→21:40)
[2019-03-19] MEDS: ACETAMINOPHEN 325 MG TABLET (FP) PO PRN (09:57)
[2019-03-19] MEDS: METHYL SALICYLATE/MENTHOL OINT 30 GM TUBE TP SCH ×2 (09:57→21:40)
[2019-03-19] MEDS: NICOTINE 21 MG/24 HOURS TOPICAL PATCH TD SCH (09:58)
[2019-03-19] MEDS: CYCLOBENZAPRINE HCL 10 MG TABLET (FP) PO SCH ×2 (13:38→21:40)
[2019-03-19] MEDS: THIAMINE HCL 100 MG TABLET (FP) PO SCH (21:40)
[2019-03-19] MEDS: MIRTAZAPINE 15 MG TABLET (FP) PO SCH (21:40)
[2019-03-20] MEDS: VANCOMYCIN HCL 125 MG PO SCH (06:30)
[2019-03-20] MEDS: CYCLOBENZAPRINE HCL 10 MG TABLET (FP) PO SCH ×3 (06:30→21:54)
[2019-03-20] MEDS: ACETAMINOPHEN 325 MG TABLET (FP) PO PRN ×3 (06:31→21:56)
[2019-03-20] MEDS: amLODIPine BESYLATE 5 MG TABLET (FP) PO SCH (09:53)
[2019-03-20] MEDS: APIXABAN 5 MG TABLET PO SCH ×2 (09:53→21:54)
[2019-03-20] MEDS: PRENATAL VITAMINS W/ FOLIC ACID TABLET (FP) PO SCH (09:53)
[2019-03-20] MEDS: NICOTINE 21 MG/24 HOURS TOPICAL PATCH TD SCH (09:53)
[2019-03-20] MEDS ORDERED: PT OWN MED DRAWER 7, Y5N ONE ×3 (09:54→23:55)
[2019-03-20] MEDS: METHYL SALICYLATE/MENTHOL OINT 30 GM TUBE TP SCH ×2 (09:55→21:54)
--- NOTE | 2019-03-20 15:52 | PN ---
[facility] Progress Note Note: Patient seen for c/o body aches and clarification of Vancomycin order. Patient states she was admitted to [facility] [place]) for colitis and diagnosed with C diff. Patient was treated with antibiotics and then discharged with Vancomycin tablets. As per patient, she is to be titrated off Vancomycin and needs to complete treatment which requires another 10 days of treatment. Patient denies N/V/D and abdominal pain at this time. Laboratory Tests 03/18/19 11:55 Urine Color Yellow Urine Appearance Clear Urine pH 7.0 Ur Specific Bally 1.015 Urine Protein Negative Urine Glucose (UA) Negative Urine Ketones Negative Urine Blood Negative Urine Nitrite Negative Urine Bilirubin Negative Urine Urobilinogen 0.2 Ur Leukocyte Esterase 1+ H Urine WBC (Auto) 4 Urine RBC (Auto) 0 Urine Casts (Auto) 6 U Epithel Cells (Auto) 15.3 Urine Bacteria (Auto) 340.3 Vital Signs (72 hours) 03/18/19 03/18/19 03/18/19 03:30 07:17 09:30 Temperature 98.2 F Pulse Rate 76 101 H Respiratory 18 18 Rate Blood Pressure 118/87 123/89 03/19/19 03/19/19 03/19/19 00:30 03:30 07:13 Temperature 97.8 F Pulse Rate 76 Respiratory 18 18 18 Rate Blood Pressure 139/87 03/19/19 03/20/19 03/20/19 10:00 00:29 03:30 Temperature Pulse Rate 108 H Respiratory 18 18 Rate Blood Pressure 111/78 03/20/19 06:54 Temperature 98.1 F Pulse Rate 77 Respiratory 18 Rate Blood Pressure 130/90 PE: alert and oriented x 3 skin warm and dry +perrla, eoms intact bl neck supple no jvd gi nt, nd ext full rom, no swelling amb ad iwona A/P: Hx of C diff [facility] at [address] [place] [address] called at [phone], patient has order for Vancomycin 125mg every 8 hours x 5 days to start 03/13/19 (which was completed yesterday evening). Then start 125mg bid x 5 more days which will be ordered today. To complete treatment with Vancomycin 125mg daily to start for 5 days. Prescriptions to be faxed to [facility] [phone] Patient continued on Vancomycin as ordered. Apap to be continued prn as patient cannot receive Motrin for pain due to prescription with Eliquis monitor clinically
[2019-03-20] MEDS: MELATONIN 5 MG TABLETS PO PRN (21:53)
[2019-03-20] MEDS: THIAMINE HCL 100 MG TABLET (FP) PO SCH (21:54)
[2019-03-20] MEDS: MIRTAZAPINE 15 MG TABLET (FP) PO SCH (21:54)
[2019-03-20] MEDS: VANCOMYCIN 250 MG/5 ML ORAL SOLUTION PO SCH (22:31)
[2019-03-21] MEDS: CYCLOBENZAPRINE HCL 10 MG TABLET (FP) PO SCH ×3 (06:21→21:45)
[2019-03-21] MEDS: ACETAMINOPHEN 325 MG TABLET (FP) PO PRN ×2 (06:22→21:45)
[2019-03-21] MEDS ORDERED: PT OWN MED DRAWER 7, Y5N ONE (08:11)
[2019-03-21] MEDS: NICOTINE 21 MG/24 HOURS TOPICAL PATCH TD SCH (09:21)
[2019-03-21] MEDS: APIXABAN 5 MG TABLET PO SCH ×2 (09:21→21:45)
[2019-03-21] MEDS: METHYL SALICYLATE/MENTHOL OINT 30 GM TUBE TP SCH ×2 (09:21→21:44)
[2019-03-21] MEDS: amLODIPine BESYLATE 5 MG TABLET (FP) PO SCH (09:22)
[2019-03-21] MEDS: PRENATAL VITAMINS W/ FOLIC ACID TABLET (FP) PO SCH (09:22)
[2019-03-21] MEDS: VANCOMYCIN 250 MG/5 ML ORAL SOLUTION PO SCH ×2 (09:22→21:49)
[2019-03-21] MEDS: THIAMINE HCL 100 MG TABLET (FP) PO SCH (21:45)
[2019-03-21] MEDS: MIRTAZAPINE 15 MG TABLET (FP) PO SCH (21:45)
[2019-03-22] MEDS: ACETAMINOPHEN 325 MG TABLET (FP) PO PRN ×2 (06:36→21:24)
[2019-03-22] MEDS: CYCLOBENZAPRINE HCL 10 MG TABLET (FP) PO SCH ×3 (06:36→21:23)
[2019-03-22] MEDS ORDERED: PT OWN MED DRAWER 7, Y5N ONE ×2 (08:40→19:09)
[2019-03-22] MEDS: PRENATAL VITAMINS W/ FOLIC ACID TABLET (FP) PO SCH (09:42)
[2019-03-22] MEDS: amLODIPine BESYLATE 5 MG TABLET (FP) PO SCH (09:42)
[2019-03-22] MEDS: METHYL SALICYLATE/MENTHOL OINT 30 GM TUBE TP SCH ×2 (09:42→21:57)
[2019-03-22] MEDS: VANCOMYCIN 250 MG/5 ML ORAL SOLUTION PO SCH ×2 (09:42→21:23)
[2019-03-22] MEDS: NICOTINE 21 MG/24 HOURS TOPICAL PATCH TD SCH (09:43)
[2019-03-22] MEDS: APIXABAN 5 MG TABLET PO SCH ×2 (10:55→21:23)
[2019-03-22] MEDS: MAG HYDROX/AL HYDROX/SIMETH 30 ML UNIT-DOSE CUP PO PRN (11:43)
[2019-03-22] MEDS: THIAMINE HCL 100 MG TABLET (FP) PO SCH (21:23)
[2019-03-22] MEDS: MELATONIN 5 MG TABLETS PO PRN (21:23)
[2019-03-22] MEDS: MIRTAZAPINE 15 MG TABLET (FP) PO SCH (21:23)
[2019-03-23] MEDS: CYCLOBENZAPRINE HCL 10 MG TABLET (FP) PO SCH (06:23)
[2019-03-23] MEDS: ACETAMINOPHEN 325 MG TABLET (FP) PO PRN ×2 (06:23→21:47)
[2019-03-23] MEDS ORDERED: PT OWN MED DRAWER 7, Y5N ONE (08:39)
[2019-03-23] MEDS: PRENATAL VITAMINS W/ FOLIC ACID TABLET (FP) PO SCH (10:04)
[2019-03-23] MEDS: METHYL SALICYLATE/MENTHOL OINT 30 GM TUBE TP SCH ×2 (10:05→21:44)
[2019-03-23] MEDS: NICOTINE 21 MG/24 HOURS TOPICAL PATCH TD SCH (10:05)
[2019-03-23] MEDS: amLODIPine BESYLATE 5 MG TABLET (FP) PO SCH (10:05)
[2019-03-23] MEDS: APIXABAN 5 MG TABLET PO SCH ×2 (10:05→21:45)
[2019-03-23] MEDS: VANCOMYCIN 250 MG/5 ML ORAL SOLUTION PO SCH ×2 (10:06→21:46)
[2019-03-23] MEDS: MAG HYDROX/AL HYDROX/SIMETH 30 ML UNIT-DOSE CUP PO PRN (10:07)
[2019-03-23] MEDS: hydrOXYzine PAMOATE 25 MG CAPSULE (FP) PO PRN ×2 (16:34→23:13)
[2019-03-23] MEDS: MELATONIN 5 MG TABLETS PO PRN (21:45)
[2019-03-23] MEDS: THIAMINE HCL 100 MG TABLET (FP) PO SCH (21:45)
[2019-03-23] MEDS: MIRTAZAPINE 15 MG TABLET (FP) PO SCH (21:45)
[2019-03-23] MEDS: METHOCARBAMOL 500 MG TABLET PO SCH (21:48)
[2019-03-24] MEDS: ACETAMINOPHEN 325 MG TABLET (FP) PO PRN (06:30)
[2019-03-24] MEDS ORDERED: PT OWN MED DRAWER 7, Y5N ONE ×4 (09:05→23:20)
[2019-03-24] MEDS: hydrOXYzine PAMOATE 25 MG CAPSULE (FP) PO PRN ×2 (09:51→17:26)
[2019-03-24] MEDS: amLODIPine BESYLATE 5 MG TABLET (FP) PO SCH (09:51)
[2019-03-24] MEDS: PRENATAL VITAMINS W/ FOLIC ACID TABLET (FP) PO SCH (09:52)
[2019-03-24] MEDS: METHOCARBAMOL 500 MG TABLET PO SCH ×2 (09:54→21:30)
[2019-03-24] MEDS: APIXABAN 5 MG TABLET PO SCH ×2 (09:54→21:30)
[2019-03-24] MEDS: VANCOMYCIN 250 MG/5 ML ORAL SOLUTION PO SCH ×2 (09:55→21:31)
[2019-03-24] MEDS: NICOTINE 21 MG/24 HOURS TOPICAL PATCH TD SCH (09:56)
[2019-03-24] MEDS: METHYL SALICYLATE/MENTHOL OINT 30 GM TUBE TP SCH ×2 (09:56→21:31)
[2019-03-24] MEDS: THIAMINE HCL 100 MG TABLET (FP) PO SCH (21:29)
[2019-03-24] MEDS: MIRTAZAPINE 15 MG TABLET (FP) PO SCH (21:30)
[2019-03-24] MEDS: MELATONIN 5 MG TABLETS PO PRN (21:30)
[2019-03-25] MEDS: ACETAMINOPHEN 325 MG TABLET (FP) PO PRN (06:43)
--- NOTE | 2019-03-25 07:52 | PN ---
[facility] Progress Note Note: informed buy nurse to evaluate patient who has injury to toes alert,oriented x 3 complained of pain in right middle and fourth digits of right examination no abrasion,no deformity,note pain on palpation of right middle and fourth ties treatment ice pack x ray for right middle and 4th toes tylenol 650 mgs po q 6 hrs as need close monitoring
[2019-03-25] MEDS ORDERED: COLLOIDAL OATMEAL 1 BAR EACH TP PRN (08:03)
[2019-03-25] MEDS: APIXABAN 5 MG TABLET PO SCH ×2 (09:56→21:11)
[2019-03-25] MEDS: METHYL SALICYLATE/MENTHOL OINT 30 GM TUBE TP SCH ×2 (09:56→21:12)
[2019-03-25] MEDS: PRENATAL VITAMINS W/ FOLIC ACID TABLET (FP) PO SCH (09:57)
[2019-03-25] MEDS: METHOCARBAMOL 500 MG TABLET PO SCH ×2 (09:57→21:11)
[2019-03-25] MEDS: amLODIPine BESYLATE 5 MG TABLET (FP) PO SCH (09:57)
[2019-03-25] MEDS: VANCOMYCIN 250 MG/5 ML ORAL SOLUTION PO SCH (09:57)
--- NOTE | 2019-03-25 14:15 | PN ---
[facility] Progress Note Note: Patient bump toes at night (please see MD note). X-ray was ordered to evaluate for fracture or subluxation. Now refusing x-ray> Signed forms acknowledging that she refused and that she is aware of consequences.
[2019-03-25] MEDS ORDERED: PT OWN MED DRAWER 7, Y5N ONE (21:06)
[2019-03-25] MEDS: MELATONIN 5 MG TABLETS PO PRN (21:11)
[2019-03-25] MEDS: hydrOXYzine PAMOATE 25 MG CAPSULE (FP) PO PRN (21:11)
[2019-03-25] MEDS: THIAMINE HCL 100 MG TABLET (FP) PO SCH (21:11)
[2019-03-25] MEDS: MIRTAZAPINE 15 MG TABLET (FP) PO SCH (21:11)
[2019-03-26] MEDS: ACETAMINOPHEN 325 MG TABLET (FP) PO PRN (07:04)
[2019-03-26] MEDS ORDERED: PT OWN MED DRAWER 7, Y5N ONE ×2 (08:18→23:08)
[2019-03-26] MEDS: VANCOMYCIN 250 MG/5 ML ORAL SOLUTION PO SCH (09:45)
[2019-03-26] MEDS: amLODIPine BESYLATE 5 MG TABLET (FP) PO SCH (09:47)
[2019-03-26] MEDS: PRENATAL VITAMINS W/ FOLIC ACID TABLET (FP) PO SCH (09:47)
[2019-03-26] MEDS: METHOCARBAMOL 500 MG TABLET PO SCH ×2 (09:47→21:10)
[2019-03-26] MEDS: APIXABAN 5 MG TABLET PO SCH ×2 (09:47→21:10)
[2019-03-26] MEDS: METHYL SALICYLATE/MENTHOL OINT 30 GM TUBE TP SCH ×2 (09:47→21:11)
[2019-03-26] MEDS: hydrOXYzine PAMOATE 25 MG CAPSULE (FP) PO PRN ×2 (16:33→23:07)
[2019-03-26] MEDS: MELATONIN 5 MG TABLETS PO PRN (21:09)
[2019-03-26] MEDS: THIAMINE HCL 100 MG TABLET (FP) PO SCH (21:09)
[2019-03-26] MEDS: MIRTAZAPINE 15 MG TABLET (FP) PO SCH (21:10)
[2019-03-27] MEDS: ACETAMINOPHEN 325 MG TABLET (FP) PO PRN ×2 (06:24→21:32)
[2019-03-27] MEDS: PRENATAL VITAMINS W/ FOLIC ACID TABLET (FP) PO SCH (09:18)
[2019-03-27] MEDS: METHYL SALICYLATE/MENTHOL OINT 30 GM TUBE TP SCH ×2 (09:18→21:34)
[2019-03-27] MEDS: amLODIPine BESYLATE 5 MG TABLET (FP) PO SCH (09:19)
[2019-03-27] MEDS: APIXABAN 5 MG TABLET PO SCH ×2 (09:19→21:31)
[2019-03-27] MEDS: METHOCARBAMOL 500 MG TABLET PO SCH ×2 (09:19→21:32)
[2019-03-27] MEDS: hydrOXYzine PAMOATE 25 MG CAPSULE (FP) PO PRN ×2 (09:20→18:31)
[2019-03-27] MEDS: VANCOMYCIN 250 MG/5 ML ORAL SOLUTION PO SCH (09:21)
[2019-03-27] MEDS: THIAMINE HCL 100 MG TABLET (FP) PO SCH (21:31)
[2019-03-27] MEDS: MIRTAZAPINE 15 MG TABLET (FP) PO SCH (21:31)
[2019-03-27] MEDS: MELATONIN 5 MG TABLETS PO PRN (21:32)
[2019-03-28] MEDS: ACETAMINOPHEN 325 MG TABLET (FP) PO PRN ×2 (07:31→21:13)
[2019-03-28] MEDS: VANCOMYCIN 250 MG/5 ML ORAL SOLUTION PO SCH (09:57)
[2019-03-28] MEDS: METHOCARBAMOL 500 MG TABLET PO SCH ×2 (09:58→21:14)
[2019-03-28] MEDS: PRENATAL VITAMINS W/ FOLIC ACID TABLET (FP) PO SCH (09:58)
[2019-03-28] MEDS: amLODIPine BESYLATE 5 MG TABLET (FP) PO SCH (09:58)
[2019-03-28] MEDS: APIXABAN 5 MG TABLET PO SCH ×2 (09:58→21:13)
[2019-03-28] MEDS: METHYL SALICYLATE/MENTHOL OINT 30 GM TUBE TP SCH ×2 (09:59→21:14)
[2019-03-28] MEDS: hydrOXYzine PAMOATE 25 MG CAPSULE (FP) PO PRN ×2 (17:03→23:35)
[2019-03-28] MEDS ORDERED: PT OWN MED DRAWER 7, Y5N ONE (21:05)
[2019-03-28] MEDS: MIRTAZAPINE 15 MG TABLET (FP) PO SCH (21:13)
[2019-03-28] MEDS: MELATONIN 5 MG TABLETS PO PRN (21:14)
[2019-03-28] MEDS: THIAMINE HCL 100 MG TABLET (FP) PO SCH (21:15)
[2019-03-29] MEDS: ACETAMINOPHEN 325 MG TABLET (FP) PO PRN (06:36)
[2019-03-29] MEDS: VANCOMYCIN 250 MG/5 ML ORAL SOLUTION PO SCH (09:58)
[2019-03-29] MEDS: METHOCARBAMOL 500 MG TABLET PO SCH ×2 (09:59→21:11)
[2019-03-29] MEDS: PRENATAL VITAMINS W/ FOLIC ACID TABLET (FP) PO SCH (09:59)
[2019-03-29] MEDS: amLODIPine BESYLATE 5 MG TABLET (FP) PO SCH (09:59)
[2019-03-29] MEDS: APIXABAN 5 MG TABLET PO SCH ×2 (09:59→21:11)
[2019-03-29] MEDS: hydrOXYzine PAMOATE 25 MG CAPSULE (FP) PO PRN ×2 (10:00→21:11)
[2019-03-29] MEDS: METHYL SALICYLATE/MENTHOL OINT 30 GM TUBE TP SCH ×2 (10:00→21:12)
[2019-03-29] MEDS: MIRTAZAPINE 15 MG TABLET (FP) PO SCH (21:11)
[2019-03-29] MEDS: THIAMINE HCL 100 MG TABLET (FP) PO SCH (21:11)
[2019-03-29] MEDS: MELATONIN 5 MG TABLETS PO PRN (21:11)
[2019-03-30] MEDS: ACETAMINOPHEN 325 MG TABLET (FP) PO PRN (07:07)
[2019-03-30] MEDS ORDERED: PT OWN MED DRAWER 7, Y5N ONE (08:35)
[2019-03-30] MEDS: METHYL SALICYLATE/MENTHOL OINT 30 GM TUBE TP SCH ×2 (10:00→21:09)
[2019-03-30] MEDS: hydrOXYzine PAMOATE 25 MG CAPSULE (FP) PO PRN ×2 (10:00→21:10)
[2019-03-30] MEDS: METHOCARBAMOL 500 MG TABLET PO SCH ×2 (10:01→21:09)
[2019-03-30] MEDS: APIXABAN 5 MG TABLET PO SCH ×2 (10:01→21:08)
[2019-03-30] MEDS: VANCOMYCIN 250 MG/5 ML ORAL SOLUTION PO SCH (10:01)
[2019-03-30] MEDS: PRENATAL VITAMINS W/ FOLIC ACID TABLET (FP) PO SCH (10:01)
[2019-03-30] MEDS: amLODIPine BESYLATE 5 MG TABLET (FP) PO SCH (10:02)
--- NOTE | 2019-03-30 13:46 | PN ---
[facility] Progress Note Note: Patient is scheduled for discharge tomorrow. Script for 30 days supply of Remeron 15 mg/hs will be electronically transmitted to [facility] [address]
--- NOTE | 2019-03-30 14:39 | DS ---
[facility] Rehab Discharge Summary - [facility] Rehab Discharge Summary Admission Date: 03/17/19 Discharge Date: 03/31/19 - History Present History: Alcohol dependence, Cannabis dependence, Cocaine dependence Pertinent Past History: 30 YEARS ETOH USE MARIJUANA SINCE AGE 16 COCAINE AGE 25 OCASSIONALLY - Discharge Physical Exam Vital Signs: Vital Signs Temperature 98.2 F 03/30/19 07:29 Pulse Rate 112 H 03/30/19 09:12 Respiratory Rate 18 03/30/19 09:12 Blood Pressure 121/78 03/30/19 09:12 O2 Sat by Pulse Oximetry (%) Pertinent Admission Physical Exam Findings: Physical General Appearance: No apparent distress HEENTM: Normocephalic Respiratory: Lungs Clear, Normal Breath Sounds Neck: supple Cardiology: S1, S2 Abdominal: +Bowel Sounds, Musculoskeletal: full range of Motion, Gait Steady, Pelvis Stable Extremities: Normal Capillary Refill, Neurological: epic ambulatory analyst II-XII NML intact, Motor Strength 5/5, Integumentary: color consistent throughout trunk and extremities. - Treatment Discharge Condition: Outpatient referral accepted (Patient will receive aftercare at [facility]) - Medication Discharge Medications: Ambulatory Orders Thiamine HCl [Vitamin B1 -] 100 mg PO DAILY tablet 02/15/19 Quetiapine Fumarate [Seroquel] 50 tab PO DAILY 03/12/19 Mirtazapine [Remeron -] 7.5 mg PO HS 03/17/19 Vancomycin HCl 125 mg PO Q6H 03/18/19 Amlodipine Besylate [Norvasc -] 5 mg PO DAILY #30 tablet 03/30/19 Apixaban [Eliquis -] 5 mg PO BID #30 tablet 03/30/19 Mirtazapine [Remeron -] 15 mg PO HS #30 tablet 03/30/19 - Medication-Assisted Treatment (MAT) Medication-Assisted Treatment (MAT): No - Discharge Instructions Diet, activity, other medical instructions: Diet: as tolerated Activity: as tolerated Other medical instructions: Keep aftercare referral at [facility] - Diagnosis (1) Cannabis dependence Status: Chronic (2) Cocaine dependence Status: Chronic Qualifiers: Substance use status: uncomplicated Qualified Code(s): F14.20 - Cocaine dependence, uncomplicated (3) PCP abuse Status: Chronic (4) Alcohol dependence with uncomplicated withdrawal Status: Chronic - Follow-up Referral Minutes to complete discharge: 20 - AMA Did Patient Leave Against Medical Advice: No Additional Comments: Aftercare referral to [facility].
[2019-03-30] MEDS: THIAMINE HCL 100 MG TABLET (FP) PO SCH (21:08)
[2019-03-30] MEDS: MELATONIN 5 MG TABLETS PO PRN (21:08)
[2019-03-30] MEDS: MIRTAZAPINE 15 MG TABLET (FP) PO SCH (21:09)
[2019-03-31] MEDS: ACETAMINOPHEN 325 MG TABLET (FP) PO PRN (06:38)
[2019-03-31 06:52] VITALS: BP 121/84; PULSE 89; TEMP 98
[2019-03-31] MEDS: APIXABAN 5 MG TABLET PO SCH (09:22)
[2019-03-31] MEDS: PRENATAL VITAMINS W/ FOLIC ACID TABLET (FP) PO SCH (09:22)
[2019-03-31] MEDS: amLODIPine BESYLATE 5 MG TABLET (FP) PO SCH (09:22)
[2019-03-31] MEDS: METHOCARBAMOL 500 MG TABLET PO SCH (09:23)
[2019-03-31] MEDS: hydrOXYzine PAMOATE 25 MG CAPSULE (FP) PO PRN (09:23)
[2019-03-31] MEDS: METHYL SALICYLATE/MENTHOL OINT 30 GM TUBE TP SCH (09:24)
== END 2019-03-31 09:27 | disposition home or self-care (01) | DRG 772 ==
LOC: YASAS 10:57 → Y3E 10:59
PROVIDERS: ADMIT Neuromusculoskeletal Medicine & OMM; ATTEND Neuromusculoskeletal Medicine & OMM
PROC: HZ42ZZZ Group Counseling for Substance Abuse Treatment, Cognitive-Behavioral (ICD-10-PCS; principal; 2019-03-17)
DX: F10.20 Alcohol dependence, uncomplicated (principal); F14.20 Cocaine dependence, uncomplicated; F12.20 Cannabis dependence, uncomplicated; F16.10 Hallucinogen abuse, uncomplicated; F19.24 Other psychoactive substance dependence with psychoactive substance-induced mood disorder; F19.282 Other psychoactive substance dependence with psychoactive substance-induced sleep disorder; I10 Essential (primary) hypertension; D50.9 Iron deficiency anemia, unspecified; J44.9 Chronic obstructive pulmonary disease, unspecified; E78.5 Hyperlipidemia, unspecified; M79.674 Pain in right toe(s); Z86.73 Personal history of transient ischemic attack (TIA), and cerebral infarction without residual deficits
CPT/HCPCS: 81003; 86480

== ENCOUNTER 2019-04-20 13:44 | Inpatient (IN) | payer OTHER ==
[2019-04-20 17:19] VITALS: BMI 20.2
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
[2019-04-20] MEDS ORDERED: MAG HYDROX/AL HYDROX/SIMETH 30 ML UNIT-DOSE CUP PO PRN (19:00)
[2019-04-20] MEDS ORDERED: MAGNESIUM HYDROX 2400MG/30ML ORAL SUSPENSION 30 ML CUP PO PRN (19:00)
[2019-04-20] MEDS ORDERED: diazePAM 5 MG TABLET PO ONE (19:00)
[2019-04-20] MEDS ORDERED: ACETAMINOPHEN 325 MG TABLET (FP) PO PRN ×2 (19:00)
[2019-04-20] MEDS ORDERED: MAGNESIUM CITRATE 300 ML BOTTLE PO PRN (19:00)
[2019-04-20] MEDS ORDERED: MENTHOL/PHENOL 1 EACH UD MM PRN (19:00)
[2019-04-20] MEDS ORDERED: APIXABAN 2.5 MG TABLET PO SCH (22:00)
[2019-04-20] MEDS: THIAMINE HCL 100 MG TABLET (FP) PO SCH (22:08)
[2019-04-20] MEDS: diazePAM 5 MG TABLET PO SCH (22:08)
[2019-04-20] MEDS: MELATONIN 5 MG TABLETS PO PRN (22:08)
[2019-04-20] MEDS: APIXABAN 5 MG TABLET PO SCH (22:50)
[2019-04-21] MEDS: diazePAM 5 MG TABLET PO SCH ×3 (05:51→22:15)
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
--- NOTE | 2019-04-21 09:33 | PN ---
S CIWA - CIWA Score Nausea/Vomitin-No Nausea/No Vomiting Muscle Tremors: 2 Anxiety: 2 Agitation: 2 Paroxysmal Sweats: 2 Orientation: 0-Oriented Tacttile Disturbances: 0-None Auditory Disturbances: 0-None Visual Disturbances: 0-None Headache: 0-None Present CIWA-Ar Total Score: 8 BHS Progress Note (SOAP) Subjective: agitation tired interrupted sleep i want to see the ship construction teacher Objective: 04/21/19 09:32 Vital Signs Temperature 98.6 F 04/21/19 09:12 Pulse Rate 92 H 04/21/19 09:12 Respiratory Rate 16 04/21/19 09:12 Blood Pressure 112/67 04/21/19 09:12 O2 Sat by Pulse Oximetry (%) labs pending aaox3 ambulating no acute distress Assessment: 04/21/19 09:33 withdrawals Plan: continue detox increase fluids ship construction teacher ordered as per pt request
[2019-04-21] MEDS: amLODIPine BESYLATE 5 MG TABLET (FP) PO SCH (10:19)
[2019-04-21] MEDS: METHOCARBAMOL 500 MG TABLET PO PRN ×2 (10:19→17:47)
[2019-04-21] MEDS: hydrOXYzine PAMOATE 50 MG CAPSULE (FP) PO PRN ×3 (10:19→22:16)
[2019-04-21] MEDS: PRENATAL VITAMINS W/ FOLIC ACID TABLET (FP) PO SCH (10:19)
[2019-04-21 10:23] LABS: ALBUMIN 3.9 g/dl (3.4-5.0); BILIRUBIN,TOTAL 1.1 mg/dL (0.2-1); BLOOD UREA NITROGEN 11.9 mg/dL (7-18); CALCIUM 9.4 mg/dL (8.5-10.1); CREATININE 0.9 mg/dL (0.55-1.3); POTASSIUM 3.8 mmol/L (3.5-5.1); TOT PROT 9.4 g/dl (6.4-8.2)
[2019-04-21] MEDS: APIXABAN 5 MG TABLET PO SCH ×2 (10:43→22:15)
[2019-04-21 10:46] LABS: HEMATOCRIT 38.7 % (32.4-45.2); MCH 33.6 pg (25.7-33.7); MCHC 33.6 g/dl (32.0-36.0); MEAN PLT VOLUME 8.7 fl (7.5-11.1); PLATELET COUNT 227 K/MM3 (134-434); RBC 3.87 M/mm3 (3.60-5.2); RDW 14.5 % (11.6-15.6); WHITE BLOOD COUNT 3.1 K/mm3 (4.0-10.0)
[2019-04-21] MEDS: FERROUS SO4 325 MG TABLET (FP) PO SCH (17:47)
[2019-04-21] MEDS: MIRTAZAPINE 15 MG TABLET (FP) PO SCH (22:15)
[2019-04-21] MEDS: MELATONIN 5 MG TABLETS PO PRN (22:16)
[2019-04-21] MEDS: THIAMINE HCL 100 MG TABLET (FP) PO SCH (22:16)
[2019-04-22] MEDS: diazePAM 5 MG TABLET PO SCH ×2 (05:52→17:35)
[2019-04-22] MEDS: METHOCARBAMOL 500 MG TABLET PO PRN ×2 (05:52→17:37)
[2019-04-22] MEDS: PRENATAL VITAMINS W/ FOLIC ACID TABLET (FP) PO SCH (10:46)
[2019-04-22] MEDS: APIXABAN 5 MG TABLET PO SCH ×2 (10:46→22:08)
[2019-04-22] MEDS: amLODIPine BESYLATE 5 MG TABLET (FP) PO SCH (10:47)
[2019-04-22] MEDS: hydrOXYzine PAMOATE 50 MG CAPSULE (FP) PO PRN ×2 (10:47→22:08)
--- NOTE | 2019-04-22 13:49 | PN ---
S CIWA - CIWA Score Nausea/Vomitin-No Nausea/No Vomiting Muscle Tremors: 2 Anxiety: 1-Mildly Anxious Agitation: 2 Paroxysmal Sweats: No Perspiration Orientation: 0-Oriented Tacttile Disturbances: 0-None Auditory Disturbances: 0-None Visual Disturbances: 0-None Headache: 0-None Present CIWA-Ar Total Score: 5 BHS Progress Note (SOAP) Subjective: irritable agitation Objective: 04/22/19 13:49 Vital Signs Temperature 98.0 F 04/22/19 13:01 Pulse Rate 134 H 04/22/19 13:01 Respiratory Rate 04/22/19 13:01 Blood Pressure 131/97 04/22/19 13:01 O2 Sat by Pulse Oximetry (%) Laboratory Tests 04/21/19 04/21/19 08:15 08:15 WBC 3.1 L RBC 3.87 Hgb 13.0 Hct 38.7 D MCV 100.0 H MCH 33.6 MCHC 33.6 RDW 14.5 Plt Count 227 D MPV 8.7 Sodium 136 Potassium 3.8 Chloride 101 Carbon Dioxide 26 Anion Gap 10 BUN 11.9 Creatinine 0.9 Est GFR (CKD-EPI)AfAm 87.63 Est GFR (CKD-EPI)NonAf 75.61 Random Glucose 105 Calcium 9.4 Total Bilirubin 1.1 H AST 316 H ALT 301 H Alkaline Phosphatase 159 H Total Protein 9.4 H Albumin 3.9 pending repeated labs aaox3 ambulating no acute distress Assessment: 04/22/19 13:51 mild withdrawals Plan: continue detox increase fluids d/c in am
[2019-04-22] MEDS: diazePAM 5 MG TABLET PO PRN ×2 (14:19→22:08)
[2019-04-22] MEDS: FERROUS SO4 325 MG TABLET (FP) PO SCH (17:35)
[2019-04-22 18:19] LABS: SGOT/AST 151 U/L (15-37); SGPT/ALT 191 U/L (13-61)
[2019-04-22] MEDS: MIRTAZAPINE 15 MG TABLET (FP) PO SCH (22:08)
[2019-04-22] MEDS: THIAMINE HCL 100 MG TABLET (FP) PO SCH (22:08)
[2019-04-23] MEDS ORDERED: diazePAM 5 MG TABLET PO ONE (06:00)
--- NOTE | 2019-04-23 08:50 | DS ---
[facility] Detox Discharge Summary Admission Date: 04/20/19 Discharge Date: 04/23/19 - History Present History: Alcohol Dependence, Cannabis Dependence, Cocaine Dependence - Physical Exam Results Vital Signs: Vital Signs Temperature 97.9 F 04/23/19 07:25 Pulse Rate 81 04/23/19 07:25 Respiratory Rate 18 04/23/19 07:25 Blood Pressure 147/98 04/23/19 07:25 O2 Sat by Pulse Oximetry (%) Pertinent Admission Physical Exam Findings: pt arrived in withdrawals Laboratory Tests 04/21/19 04/21/19 04/22/19 08:15 08:15 14:30 WBC 3.1 L RBC 3.87 Hgb 13.0 Hct 38.7 D MCV 100.0 H MCH 33.6 MCHC 33.6 RDW 14.5 Plt Count 227 D MPV 8.7 Sodium 136 Potassium 3.8 Chloride 101 Carbon Dioxide 26 Anion Gap 10 BUN 11.9 Creatinine 0.9 Est GFR (CKD-EPI)AfAm 87.63 Est GFR (CKD-EPI)NonAf 75.61 Random Glucose 105 Calcium 9.4 Total Bilirubin 1.1 H AST 316 H 151 H ALT 301 H 191 H Alkaline Phosphatase 159 H Total Protein 9.4 H Albumin 3.9 repeated AST/ALT shows improvement encouraged to maintain abstinence from alcohol/drugs. encouraged to hydrated and healthy eating. pt in agreement aaox3 ambulating no acute distress - Treatment Hospital Course: Detox Protocol Followed, Detoxed Safely, Responded well, Discharged Condition Good, Rehab Referral Accepted Patient has Accepted a Rehab Referral to: pt declined rehab; referral provided - Medication Discharge Medications: Ambulatory Orders Thiamine HCl [Vitamin B1 -] 100 mg PO DAILY tablet 02/15/19 Amlodipine Besylate [Norvasc -] 5 mg PO DAILY #30 tablet 03/30/19 Apixaban [Eliquis -] 5 mg PO BID #30 tablet 03/30/19 Mirtazapine [Remeron -] 15 mg PO HS #30 tablet 03/30/19 - Diagnosis (1) Alcohol dependence with uncomplicated withdrawal Current Visit: Yes Status: Chronic (2) Cannabis dependence Current Visit: Yes Status: Chronic (3) Cocaine dependence Current Visit: Yes Status: Chronic Qualifiers: Substance use status: uncomplicated Qualified Code(s): F14.20 - Cocaine dependence, uncomplicated (4) GERD (gastroesophageal reflux disease) Current Visit: Yes Status: Chronic Qualifiers: Esophagitis presence: without esophagitis Qualified Code(s): K21.9 - Gastro -esophageal reflux disease without esophagitis (5) History of deep venous thrombosis Current Visit: Yes Status: Chronic (6) Hypertension Current Visit: Yes Status: Chronic Qualifiers: Hypertension type: essential hypertension Qualified Code(s): I10 - Essential (primary) hypertension (7) Murmur, cardiac Current Visit: Yes Status: Chronic (8) DVT (deep venous thrombosis) Current Visit: Yes Status: Resolved (9) Abnormal CT scan, gastrointestinal tract Current Visit: No Status: Acute (10) Depressed affect Current Visit: No Status: Acute (11) Elevated liver enzymes Current Visit: Yes Status: Chronic (12) Mobitz (type) I (Wenckebach's) atrioventricular block Current Visit: No Status: Acute (13) PSVT (paroxysmal supraventricular tachycardia) Current Visit: No Status: Acute (14) Prolonged QT interval Current Visit: No Status: Acute (15) Substance induced mood disorder Current Visit: No Status: Acute (16) Substance-induced anxiety disorder Current Visit: No Status: Acute (17) Substance-induced sleep disorder Current Visit: No Status: Acute (18) Anxiety and depression Current Visit: No Status: Chronic (19) COPD (chronic obstructive pulmonary disease) Current Visit: No Status: Chronic (20) Cocaine abuse Current Visit: No Status: Chronic (21) Drug-induced mood disorder Current Visit: No Status: Chronic (22) Insomnia Current Visit: No Status: Chronic Qualifiers: Insomnia type: drug-induced Qualified Code(s): F19.982 - Other psychoactive substance use, unspecified with psychoactive substance-induced sleep disorder (23) PCP abuse Current Visit: No Status: Chronic (24) Substance induced mood disorder Current Visit: No Status: Chronic (25) Old cerebrovascular accident (CVA) without late effect Current Visit: No Status: Inactive - AMA Did Patient Leave Against Medical Advice: No
--- NOTE | 2019-04-23 09:45 | PN ---
[facility] Progress Note Note: Patient is discharged today. Script for 30 days supply of Remeron 15 mg/hs is electronically transmitted to [facility] at [address] [phone]
[2019-04-23 09:48] VITALS: BP 139/81; PULSE 86; TEMP 97.4
[2019-04-23] MEDS: amLODIPine BESYLATE 5 MG TABLET (FP) PO SCH (10:33)
[2019-04-23] MEDS: PRENATAL VITAMINS W/ FOLIC ACID TABLET (FP) PO SCH (10:33)
[2019-04-23] MEDS: APIXABAN 5 MG TABLET PO SCH (10:33)
== END 2019-04-23 09:59 | disposition home or self-care (01) | DRG 774 ==
LOC: YASAS 13:44 → Y6N 19:14
PROVIDERS: ADMIT Surgery; ATTEND Surgery
PROC: HZ2ZZZZ Detoxification Services for Substance Abuse Treatment (ICD-10-PCS; principal; 2019-04-19)
DX: F10.230 Alcohol dependence with withdrawal, uncomplicated (principal); F14.20 Cocaine dependence, uncomplicated; F12.20 Cannabis dependence, uncomplicated; F16.10 Hallucinogen abuse, uncomplicated; F19.24 Other psychoactive substance dependence with psychoactive substance-induced mood disorder; F19.280 Other psychoactive substance dependence with psychoactive substance-induced anxiety disorder; F19.282 Other psychoactive substance dependence with psychoactive substance-induced sleep disorder; F32.9 Major depressive disorder, single episode, unspecified; F41.9 Anxiety disorder, unspecified; I10 Essential (primary) hypertension; K21.9 Gastro-esophageal reflux disease without esophagitis; K76.0 Fatty (change of) liver, not elsewhere classified; K64.8 Other hemorrhoids; R01.1 Cardiac murmur, unspecified; R93.3 Abnormal findings on diagnostic imaging of other parts of digestive tract; R94.5 Abnormal results of liver function studies; I44.0 Atrioventricular block, first degree; I45.81 Long QT syndrome; J44.9 Chronic obstructive pulmonary disease, unspecified; E78.5 Hyperlipidemia, unspecified; Z86.73 Personal history of transient ischemic attack (TIA), and cerebral infarction without residual deficits; Z86.711 Personal history of pulmonary embolism; Z86.718 Personal history of other venous thrombosis and embolism; Z85.068 Personal history of other malignant neoplasm of small intestine; Z91.030 Bee allergy status
CPT/HCPCS: 36415; 80053; 84450; 84460; 85027

== ENCOUNTER 2019-04-27 11:34 | Inpatient (IN) | payer OTHER ==
--- NOTE | 2019-04-27 11:52 | PDOC ---
Attending Attestation - Resident Resident Name: Kristin Gastelum - HPI HPI: 04/27/19 12:56 Pt presents to the ED with altered mental status. Admits to ETOH use today. patient is unable to give complete history. Complaining of dizziness. 04/27/19 13:09 - Physicial Exam PE: 04/27/19 13:12 Agree with resident exam. Patient is drowsy but easily arousable and oriented x 3. CV: rrr no m/r/g. Pulm: CTA b/l Abdomen: obese, non tender, non distended without guarding or rebound. - Medical Decision Making 04/27/19 13:19 Pt presents to the ED with altered mental status and apparent ETOH intoxication. Will check labs and reassess. Will hold for sobriety. Labs show elevated ammonia level and elevated lactate. No signs of infection. Will check UA and CXR. Will give IVF. Will treat with lactulouse and admit for hepatic encephalopathy. 04/27/19 15:14 04/27/19 15:16
--- NOTE | 2019-04-27 12:16 | PDOC ---
History of Present Illness - General Chief Complaint: Alcohol intoxication Stated Complaint: Alcohol intoxication Time Seen by Provider: 04/27/19 11:47 History Source: Patient Exam Limitations: No Limitations - History of Present Illness Initial Comments: 04/27/19 12:11 48YOF with h/o EtOH use disorder, polysubstance use, CVA in 2002, DVT (supposed to be on Eliquis), fatty liver disease, and duodenal tubular adenoma. She states that she drank a large amount of Sp Benavidez, snorted cocaine and smoked marijuana. "I blacked out", has a and "feeling lousy". She denies any prior EtOH withdrawal seizures or serious complications. She denies any additional symptoms and states her goal for coming in was simply to "get over my hangover" . She was diagnosed with colitis vs. diverticulitis back in January and states she never took her course of home antibiotics, still has symptoms of rectal discharge, abdominal discomfort/swelling. Past History - Past Medical History Allergies/Adverse Reactions: Allergies Allergy/AdvReac Type Severity Reaction Status Date / Time beeswax Allergy Severe Difficulty Verified 04/27/19 12:13 Breathing coconut oil Allergy Severe Itching Verified 04/27/19 12:13 No Known Drug Allergies Allergy Verified 04/27/19 12:13 Home Medications: Ambulatory Orders Thiamine HCl [Vitamin B1 -] 100 mg PO DAILY tablet 02/15/19 Amlodipine Besylate [Norvasc -] 5 mg PO DAILY #30 tablet 03/30/19 Apixaban [Eliquis -] 5 mg PO BID #30 tablet 03/30/19 Mirtazapine [Remeron -] 15 mg PO HS #30 tablet 04/23/19 Anemia: Yes (Not on med) Asthma: No Cancer: Yes (Adenoma of the duodenum) Cardiac Disorders: No CVA: Yes (2002 RESOLVED WITHOUT ANY COMPLICATIONS) COPD: No CHF: No DVT: No Dementia: No Diabetes: No GI Disorders: Yes (GERD, pancreatitis) Disorders: No HTN: Yes Hypercholesterolemia: Yes Kidney Stones: No Liver Disease: Yes (FATTY LIVER) Seizures: No Thyroid Disease: No - Surgical History Abdominal Surgery: Yes (hernia repair) Appendectomy: Yes (Laparascopic Surgery in September 2018) Cardiac Surgery: No Cholecystectomy: No Lung Surgery: No Neurologic Surgery: No Orthopedic Surgery: Yes (right knee, 07/29/2015 [facility]) - Reproductive History PID: No - Immunization History Immunization Up to Date: Yes - Psycho Social/Smoking Cessation Hx Smoking Status: No Smoking History: Current every day smoker Have you smoked in the past 12 months: Yes Number of Cigarettes Smoked Daily: 10 Cigars Per Day: 0 Information on smoking cessation initiated: No 'Breaking Loose' booklet given: 05/25/18 Hx Alcohol Use: Yes Drug/Substance Use Hx: Yes Substance Use Type: Alcohol, Cocaine, Marijuana Hx Substance Use Treatment: Yes (DETOX, REHAB) Review of Systems - Review of Systems Able to Perform ROS?: Yes Comments:: 04/27/19 12:43 GEN: malaise, generalized weakness, no fever, chills, or weight change HEENT: no ear pain, sore throat, vision change, or eye pain CV: lightheadedness, no chest pain, palpitations, syncope, or edema RESP: no cough, wheezing, or SOB GI: abdominal pain, nausea, vomiting, no diarrhea, constipation, or white/black/ bloody stool : no dysuria, hematuria, incontinence, retention, bleeding, or discharge MSK: no neck/back pain, muscle weakness/pain, or joint swelling/pain NEURO: no headache, seizure, vertigo, numbness, tingling, or focal weakness PSYCH: substance use, no suicidality/homicidality SKIN: no jaundice, no rash ROS otherwise negative except as noted in HPI *Physical Exam - Vital Signs Last Vital Signs Temp Pulse Resp BP Pulse Ox 98.4 F 59 L 21 H 111/60 95 04/27/19 11:45 04/27/19 11:45 04/27/19 11:45 04/27/19 11:45 04/27/19 11:45 - Physical Exam Comments: GENERAL: drowsy and somnolent but arousable and answers questions appropriately , falls asleep during interview HEENT: PERRLA, EOMI, moist mucous membranes NECK/BACK: no spinal stepoff or deformity, no hematoma, neck supple CARDIOVASCULAR: regular rate/rhythm, normal S1S2, no MGR, capillary refill <2 seconds, extremities wwp, no edema LUNGS/RESPIRATORY: nononlabored respirations, lungs CTAB GI/ABDOMEN: a bit distended but soft and symmetric [id number], normoactive BS , soft, no midline pulsatile masses, no organomegaly : no CVA ttp EXTREMITIES: no muscle atrophy, no acute deformity, no edema SKIN: warm and dry, no pallor, no jaundice, no rash, no bruising, no skin breakdown, no cuts NEUROLOGICAL: A/Ox4, CN II-XII grossly intact, no obvious facial droop, horizontal nystagmus on eye movements to extreme horizontal gaze which does extinguish in <5 seconds Heart Score/ECG Review #1 Sinus rhythm, rate of 64, normal axis, prolonged QTc of 495, non-pathologic Q wave and TWF in aVL and V2, otherwise no ST-T changes ED Treatment Course - LABORATORY CBC & Chemistry Diagram: 04/28/19 05:45 04/28/19 05:45 Medical Decision Making - Medical Decision Making 04/27/19 13:25 Pt with h/o heavy alcohol use, cocaine use, and marijuana use p/w AMS and abdominal distention and reported discomfort. Initial Vital Signs Temp Pulse Resp BP Pulse Ox 98.4 F 59 L 21 H 111/60 95 04/27/19 11:45 04/27/19 11:45 04/27/19 11:45 04/27/19 11:45 04/27/19 11:45 Exam: As noted in Physical Exam section. DDX IBNLT: intoxication, withdrawal (w/wo seizures), DT, hepatic encephalopathy , ICH, UGIB (can cause AMS), LGIB, SBP, metabolic derangement, coingestion, hepatorenal syndrome, hepatopulmonary syndrome, Wernickes encephalopathy, Korsakoff syndrome, trauma, etc. W/U ordered: CBCD CMP Lipase Coags T&S Lactate Troponin CK CKMB LDH Ammonia EKG CXR UA UCx TX ordered: Banana Bag, IVF, Zofran EKG: Reviewed; results as noted in ECG Review section. RAD/CHEST PA LAT Chest: Pain. A single AP view of the chest reveals clear lungs , normal mediastinum and sharp angles. The bones and soft tissues are intact. Since 11/21/2018, there is no change of an adverse nature. Impression: No acute chest pathology. CT/ABDOMEN PELVIS CT WITH CONTR Abdomen and pelvis CT with intravenous contrast Clinical information: abdominal pain/distention Multiplanar imaging was performed following the intravenous administration of nonionic contrast. Enteric contrast was not administered. No evidence of pneumoperitoneum, abscess , or free intraperitoneal fluid. In comparison to a prior CT exam of 11/04/2018 interval development of mild to moderate diffuse fluid -filled colonic distention is seen which may be on the basis of a current diarrheal illness. Correlate clinically. There is no obvious associated wall thickening or pericolonic edema/fluid. Possible mild concentric wall thickening along the length of the colon described on the previous exam is difficult to appreciate on the current study which may be due to interval resolution. Correlate clinically. No gross obstructing lesion is identified allowing for lack of intraluminal contrast. No gross noncontrast small bowel pathology is noted. Note is again made of a small curvilinear calcification/suture line along the pericecal region inferiorly. The appendix is not definitely visualized which may be on a postsurgical basis. No indirect CT signs of acute appendicitis are noted. There is no CT evidence of acute diverticulitis. Cholelithiasis is seen without CT evidence of acute cholecystitis. There is no definite biliary tract dilatation. There is possible diffuse hepatic steatosis. Small to moderate hiatal hernia. Small umbilical hernia containing fat only. Small bilateral inguinal hernias containing fat only. The spleen, pancreas, adrenal glands and kidneys demonstrate no discrete pathology. There is no aortic aneurysm. No definite lymphadenopathy is noted on the basis of size criteria. No gross pelvic pathology is visualized. The osseous structures demonstrate no gross acute abnormality. Impression: In comparison to a prior exam of 11/04/2018 development of mild to moderate diffuse fluid-filled colonic distention is noted possibly on the basis of a current diarrheal illness. Correlate clinically. Cholelithiasis. Possible diffuse hepatic steatosis. If clinically indicated correlate with sonography. Small multifocal hernias containing fat only. CT/HEAD CT WITHOUT CONTRAST Change in mental status CT scan of the head without intravenous contrast Compared to prior CT scan of the head dated 02/13/2019 There remains [id number]-tl-[id number] volume loss and ventricular dilatation. No mass lesion, gross acute infarct or intracranial hemorrhage are identified. There is no shift of the midline structures. Visualized paranasal sinuses and mastoid air cells are well aerated except for likely a partially included retention cyst versus polyp in the left maxillary antrum, inferiorly. The mastoid air cells are well aerated and the calvarium is intact IMPRESSION: No significant interval change. [id number] volume loss without gross acute intracranial pathology. Laboratory Tests 04/27/19 04/27/19 04/27/19 13:00 13:00 13:00 WBC 3.6 L RBC 3.16 L Hgb 10.7 Hct 31.9 L D MCV 101.0 H MCH 33.9 H MCHC 33.5 RDW 14.8 Plt Count 205 MPV 8.2 Absolute Neuts (auto) 1.5 Neutrophils % 43.4 Lymphocytes % 47.2 H Monocytes % 5.9 Eosinophils % 2.3 Basophils % 1.2 Nucleated RBC % 0 PT with INR INR Sodium 142 Potassium 5.6 H Chloride 111 H Carbon Dioxide 28 Anion Gap 3 L BUN 12.6 Creatinine 0.7 Est GFR (CKD-EPI)AfAm 118.74 Est GFR (CKD-EPI)NonAf 102.45 Random Glucose 81 Lactic Acid Calcium 8.6 Magnesium 2.3 Total Bilirubin 0.2 AST 67 H ALT 78 H Alkaline Phosphatase 102 Ammonia 64.10 H Total Protein 8.0 Albumin 3.3 L Lipase 30 L Beta HCG, Quant Serum , Qual Alcohol, Quantitative 80.2 H 04/27/19 04/27/19 04/27/19 13:00 13:00 13:00 WBC RBC Hgb Hct MCV MCH MCHC RDW Plt Count MPV Absolute Neuts (auto) Neutrophils % Lymphocytes % Monocytes % Eosinophils % Basophils % Nucleated RBC % PT with INR 14.50 H INR 1.23 H Sodium Potassium Chloride Carbon Dioxide Anion Gap BUN Creatinine Est GFR (CKD-EPI)AfAm Est GFR (CKD-EPI)NonAf Random Glucose Lactic Acid 3.2 H* Calcium Magnesium Total Bilirubin AST ALT Alkaline Phosphatase Ammonia Total Protein Albumin Lipase Beta HCG, Quant Serum , Qual Cancelled Alcohol, Quantitative 04/27/19 13:00 WBC RBC Hgb Hct MCV MCH MCHC RDW Plt Count MPV Absolute Neuts (auto) Neutrophils % Lymphocytes % Monocytes % Eosinophils % Basophils % Nucleated RBC % PT with INR INR Sodium Potassium Chloride Carbon Dioxide Anion Gap BUN Creatinine Est GFR (CKD-EPI)AfAm Est GFR (CKD-EPI)NonAf Random Glucose Lactic Acid Calcium Magnesium Total Bilirubin AST ALT Alkaline Phosphatase Ammonia Total Protein Albumin Lipase Beta HCG, Quant < 1.0 Serum , Qual Alcohol, Quantitative The Pt is unsafe for discharge at this time. They require further hospital observation, workup, and treatment. I spoke to Dr. Eden, placed Decision to Admit order. Discharge - Discharge Information Problems reviewed: Yes Clinical Impression/Diagnosis: Hyperammonemia, Lactic acidemia Altered mental status Qualifiers: Altered mental status type: somnolence Qualified Code(s): R40.0 - Somnolence Condition: Guarded - Admission Yes - Follow up/Referral - Patient Discharge Instructions - Post Discharge Activity
[2019-04-27] MEDS ORDERED: ONDANSETRON 4 MG/2 ML VIAL IVPUSH ONE (12:41)
[2019-04-27] MEDS ORDERED: SODIUM CHLORIDE 0.9% 500 ML INFUS.BAG IV ONE ×2 (12:41→14:40)
[2019-04-27] MEDS ORDERED: FOLIC ACID INJECTION - 1 MG, THIAMINE HCL 100 MG, MULTIVIT INJECTION ADULT 10 ML in SOD... IVPB ONE (13:26)
[2019-04-27 13:41] LABS: BASO % 1.2 % (0-2.0); EOS % 2.3 % (0-4.5); HEMATOCRIT 31.9 % (32.4-45.2); HEMOGLOBIN 10.7 GM/dL (10.7-15.3); LYMPH % 47.2 % (8-40); MCH 33.9 pg (25.7-33.7); MCHC 33.5 g/dl (32.0-36.0); MEAN PLT VOLUME 8.2 fl (7.5-11.1); MONO % 5.9 % (3.8-10.2); NEUT % 43.4 % (42.8-82.8); PLATELET COUNT 205 K/MM3 (134-434); RBC 3.16 M/mm3 (3.60-5.2); RDW 14.8 % (11.6-15.6); WHITE BLOOD COUNT 3.6 K/mm3 (4.0-10.0)
[2019-04-27 13:56] LABS: INR 1.23 (0.83-1.09); PROTHROMBIN TIME (PATIENT) 14.5 SEC (9.7-13.0)
[2019-04-27 14:30] LABS: ALBUMIN 3.3 g/dl (3.4-5.0); BILIRUBIN,TOTAL 0.2 mg/dL (0.2-1); BLOOD UREA NITROGEN 12.6 mg/dL (7-18); CALCIUM 8.6 mg/dL (8.5-10.1); CREATININE 0.7 mg/dL (0.55-1.3); MAGNESIUM 2.3 mg/dL (1.8-2.4); POTASSIUM 5.6 mmol/L (3.5-5.1)
[2019-04-27] MEDS ORDERED: LACTULOSE 20 GM/30 ML UDC (FOR ORAL USE ONLY) PO ONE ×2 (16:01→21:30)
--- NOTE | 2019-04-27 18:17 | HP ---
Admitting History and Physical - Primary Care Physician PCP: Pallavi Eden - Admission History of Present Illness: 48YOF with h/o EtOH use disorder, polysubstance use, CVA in 2002, DVT (supposed to be on Eliquis), fatty liver disease, and duodenal tubular adenoma. She states that she drank a large amount of Sp Benavidez, snorted cocaine and smoked marijuana. "I blacked out", has a and "feeling lousy". She denies any prior EtOH withdrawal seizures or serious complications. She denies any additional symptoms and states her goal for coming in was simply to "get over my hangover" . She was diagnosed with colitis vs. diverticulitis back in January and states she never took her course of home antibiotics, still has symptoms of rectal discharge, abdominal discomfort/swelling. 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 positive for lupus anticoagulant 09/16, pending confirmatory testing in 12 wks) - Past Surgical History Past Surgical History: Yes: Appendectomy, Colonoscopy, Hernia Repair, Joint Replacement, Upper Endoscopy - Smoking History Smoking history: Current every day smoker Have you smoked in the past 12 months: Yes Aproximately how many cigarettes per day: 10 - Alcohol/Substance Use Hx Alcohol Use: Yes History of Substance Use: reports: Cocaine ("when I want to" - not much recently , maybe once in last few weeks; nasal), Marijuana ("when I can") Date of Last Use: 11/20/18 - Social History ADL: Independent History of Recent Travel: No Home Medications - Allergies Allergies/Adverse Reactions: Allergies Allergy/AdvReac Type Severity Reaction Status Date / Time beeswax Allergy Severe Difficulty Verified 04/27/19 12:13 Breathing coconut oil Allergy Severe Itching Verified 04/27/19 12:13 No Known Drug Allergies Allergy Verified 04/27/19 12:13 - Home Medications Home Medications: Ambulatory Orders Thiamine HCl [Vitamin B1 -] 100 mg PO DAILY tablet 02/15/19 Amlodipine Besylate [Norvasc -] 5 mg PO DAILY #30 tablet 03/30/19 Apixaban [Eliquis -] 5 mg PO BID #30 tablet 03/30/19 Mirtazapine [Remeron -] 15 mg PO HS #30 tablet 04/23/19 Physical Examination Vital Signs: Vital Signs Temperature 98.4 F 04/27/19 11:45 Pulse Rate 78 04/27/19 18:05 Respiratory Rate 18 04/27/19 18:05 Blood Pressure 159/90 04/27/19 18:05 O2 Sat by Pulse Oximetry (%) 98 04/27/19 18:05 Constitutional: Yes: No Distress HENT: Yes: Atraumatic Neck: Yes: Supple Cardiovascular: Yes: Regular Rate and Rhythm Respiratory: Yes: CTA Bilaterally Gastrointestinal: Yes: Normal Bowel Sounds Extremities: Yes: WNL Edema: No Neurological: Yes: Alert, Oriented Labs: CBC, BMP 04/27/19 13:00 04/27/19 13:00 Problem List - Problems (1) Altered mental status Assessment/Plan: alert and oriented now Code(s): R41.82 - ALTERED MENTAL STATUS, UNSPECIFIED Qualifiers: Altered mental status type: unspecified Qualified Code(s): R41.82 - Altered mental status, unspecified (2) Hyperammonemia Assessment/Plan: was given lactulose monitor Code(s): E72.20 - DISORDER OF UREA CYCLE METABOLISM, UNSPECIFIED (3) Lactic acidemia Assessment/Plan: repeat levels Code(s): E87.2 - ACIDOSIS (4) Substance induced mood disorder Code(s): F19.94 - OTH PSYCHOACTIVE SUBSTANCE USE, UNSP W MOOD DISORDER (5) Substance-induced anxiety disorder Code(s): F19.980 - OTH PSYCHOACTIVE SUBSTANCE USE, UNSP W ANXIETY DISORDER (6) Substance-induced sleep disorder Code(s): F19.982 - OTH PSYCHOACTIVE SUBSTANCE USE, UNSP W SLEEP DISORDER (7) Alcohol dependence with uncomplicated withdrawal Code(s): F10.230 - ALCOHOL DEPENDENCE WITH WITHDRAWAL, UNCOMPLICATED (8) Anxiety and depression Code(s): F41.8 - OTHER SPECIFIED ANXIETY DISORDERS (9) COPD (chronic obstructive pulmonary disease) Code(s): J44.9 - CHRONIC OBSTRUCTIVE PULMONARY DISEASE, UNSPECIFIED (10) Cannabis dependence Code(s): F12.20 - CANNABIS DEPENDENCE, UNCOMPLICATED (11) Cocaine abuse Code(s): F14.10 - COCAINE ABUSE, UNCOMPLICATED (12) Hypertension Code(s): I10 - ESSENTIAL (PRIMARY) HYPERTENSION Qualifiers: Assessment/Plan Laboratory Tests 04/27/19 04/27/19 04/27/19 13:00 13:00 13:00 WBC 3.6 L RBC 3.16 L Hgb 10.7 Hct 31.9 L D MCV 101.0 H MCH 33.9 H MCHC 33.5 RDW 14.8 Plt Count 205 MPV 8.2 Absolute Neuts (auto) 1.5 Neutrophils % 43.4 Lymphocytes % 47.2 H Monocytes % 5.9 Eosinophils % 2.3 Basophils % 1.2 Nucleated RBC % 0 PT with INR INR Sodium 142 Potassium 5.6 H Chloride 111 H Carbon Dioxide 28 Anion Gap 3 L BUN 12.6 Creatinine 0.7 Est GFR (CKD-EPI)AfAm 118.74 Est GFR (CKD-EPI)NonAf 102.45 Random Glucose 81 Lactic Acid Calcium 8.6 Magnesium 2.3 Total Bilirubin 0.2 AST 67 H ALT 78 H Alkaline Phosphatase 102 Ammonia 64.10 H Total Protein 8.0 Albumin 3.3 L Lipase 30 L Beta HCG, Quant Serum , Qual Alcohol, Quantitative 80.2 H 04/27/19 04/27/19 04/27/19 13:00 13:00 13:00 WBC RBC Hgb Hct MCV MCH MCHC RDW Plt Count MPV Absolute Neuts (auto) Neutrophils % Lymphocytes % Monocytes % Eosinophils % Basophils % Nucleated RBC % PT with INR 14.50 H INR 1.23 H Sodium Potassium Chloride Carbon Dioxide Anion Gap BUN Creatinine Est GFR (CKD-EPI)AfAm Est GFR (CKD-EPI)NonAf Random Glucose Lactic Acid 3.2 H* Calcium Magnesium Total Bilirubin AST ALT Alkaline Phosphatase Ammonia Total Protein Albumin Lipase Beta HCG, Quant Serum , Qual Cancelled Alcohol, Quantitative 04/27/19 13:00 WBC RBC Hgb Hct MCV MCH MCHC RDW Plt Count MPV Absolute Neuts (auto) Neutrophils % Lymphocytes % Monocytes % Eosinophils % Basophils % Nucleated RBC % PT with INR INR Sodium Potassium Chloride Carbon Dioxide Anion Gap BUN Creatinine Est GFR (CKD-EPI)AfAm Est GFR (CKD-EPI)NonAf Random Glucose Lactic Acid Calcium Magnesium Total Bilirubin AST ALT Alkaline Phosphatase Ammonia Total Protein Albumin Lipase Beta HCG, Quant < 1.0 Serum , Qual Alcohol, Quantitative Active Medications Generic Name Dose Route Start Last Admin Trade Name Freq PRN Reason Stop Dose Admin Folic Acid 1 mg/ Thiamine HCl 1,000 mls @ 125 mls/hr 04/27/19 13:26 04/27/19 14:35 100 mg/ Multivitamins/Minerals IVPB 04/27/19 21:25 125 mls/hr 10 ml/ Sodium Chloride ONCE ONE Administration Active Medications Generic Name Dose Route Start Last Admin Trade Name Jeysonq PRN Reason Stop Dose Admin Amlodipine Besylate 5 mg 04/28/19 10:00 04/28/19 10:40 Norvasc - PO 5 mg DAILY KRISTYN Administration Apixaban 5 mg 04/27/19 22:00 04/28/19 10:40 Eliquis - PO 5 mg BID KRISTYN Administration
[2019-04-27 18:46] LABS: URINE APPEARANCE CLEAR; URINE COLOR YELLOW; URINE GLUCOSE (UA) NEGATIVE (NEGATIVE)
[2019-04-27 18:47] LABS: URINE BILIRUBIN NEGATIVE (NEGATIVE); URINE KETONE NEGATIVE (NEGATIVE); URINE LEUK ESTERASE NEGATIVE (NEGATIVE); URINE NITRITE NEGATIVE (NEGATIVE); URINE PROTEIN NEGATIVE (NEGATIVE); URINE UROBILINOGEN 0.2 mg/dL (0.2-1.0)
[2019-04-27] MEDS ORDERED: amLODIPine BESYLATE 5 MG TABLET (FP) PO ONE (21:00)
[2019-04-27 21:38] VITALS: BMI 21.9
[2019-04-27] MEDS: APIXABAN 5 MG TABLET PO SCH (22:15)
[2019-04-27] MEDS ORDERED: IBUPROFEN 400 MG TABLET (FP) PO ONE (22:28)
[2019-04-28 07:09] LABS: BASO % 0.7 % (0-2.0); EOS % 4.4 % (0-4.5); HEMATOCRIT 30.2 % (32.4-45.2); HEMOGLOBIN 10.1 GM/dL (10.7-15.3); LYMPH % 60.3 % (8-40); MCH 33.6 pg (25.7-33.7); MCHC 33.6 g/dl (32.0-36.0); MEAN CELL VOLUME 99.9 fl (80-96); MEAN PLT VOLUME 8.7 fl (7.5-11.1); NEUT % 27.6 % (42.8-82.8); PLATELET COUNT 212 K/MM3 (134-434); RBC 3.02 M/mm3 (3.60-5.2); RDW 14.3 % (11.6-15.6); WHITE BLOOD COUNT 3.4 K/mm3 (4.0-10.0)
[2019-04-28 07:40] LABS: ALBUMIN 3.4 g/dl (3.4-5.0); BILIRUBIN,TOTAL 0.4 mg/dL (0.2-1); BLOOD UREA NITROGEN 6.7 mg/dL (7-18); CALCIUM 8.8 mg/dL (8.5-10.1); CREATININE 0.8 mg/dL (0.55-1.3); POTASSIUM 3.5 mmol/L (3.5-5.1); TOT PROT 7.6 g/dl (6.4-8.2)
--- NOTE | 2019-04-28 10:06 | EKG ---
Test Reason : Blood Pressure : / mmHG Vent. Rate : 065 BPM Atrial Rate : 065 BPM P-R Int : 232 ms QRS Dur : 080 ms QT Int : 476 ms P-R-T Axes : 055 081 071 degrees QTc Int : 495 ms SINUS RHYTHM WITH 1ST DEGREE A-V BLOCK SEPTAL INFARCT , AGE UNDETERMINED ABNORMAL ECG Confirmed by Maurice Phillips MD ([id number]) on 04/28/2019 10:06:09 AM Referred By: Confirmed By:Maurice Phillips MD
[2019-04-28 10:20] LABS: ANISOCYTOSIS 0; MACROCYTOSIS 0; PLATELET ESTIMATE NORMAL
[2019-04-28] MEDS: APIXABAN 5 MG TABLET PO SCH ×2 (10:40→22:08)
[2019-04-28] MEDS: amLODIPine BESYLATE 5 MG TABLET (FP) PO SCH (10:40)
--- NOTE | 2019-04-28 19:25 | PN ---
Progress Note, Physician - Current Medication List Current Medications: Active Medications Amlodipine Besylate (Norvasc -) 5 mg PO DAILY [facility] Last Admin: 04/28/19 10:40 Dose: 5 mg Apixaban (Eliquis -) 5 mg PO BID [facility] Last Admin: 04/28/19 10:40 Dose: 5 mg - Objective Vital Signs: Vital Signs Temperature 99.1 F 04/28/19 14:00 Pulse Rate 73 04/28/19 14:00 Respiratory Rate 18 04/28/19 10:00 Blood Pressure 121/79 04/28/19 14:00 O2 Sat by Pulse Oximetry (%) 100 04/28/19 09:00 Constitutional: Yes: No Distress HENT: Yes: Atraumatic Neck: Yes: Supple Cardiovascular: Yes: Regular Rate and Rhythm Respiratory: Yes: CTA Bilaterally Gastrointestinal: Yes: Normal Bowel Sounds Extremities: Yes: WNL Neurological: Yes: Alert, Oriented Labs: CBC, BMP 04/28/19 05:45 04/28/19 05:45 INR, PTT INR 1.23 (0.83-1.09) H 04/27/19 13:00 Problem List - Problems (1) Altered mental status Code(s): R41.82 - ALTERED MENTAL STATUS, UNSPECIFIED Qualifiers: Altered mental status type: somnolence Qualified Code(s): R40.0 - Somnolence (2) Hyperammonemia Code(s): E72.20 - DISORDER OF UREA CYCLE METABOLISM, UNSPECIFIED (3) Lactic acidemia Code(s): E87.2 - ACIDOSIS (4) Substance induced mood disorder Code(s): F19.94 - OTH PSYCHOACTIVE SUBSTANCE USE, UNSP W MOOD DISORDER (5) Substance-induced anxiety disorder Code(s): F19.980 - OTH PSYCHOACTIVE SUBSTANCE USE, UNSP W ANXIETY DISORDER (6) Substance-induced sleep disorder Code(s): F19.982 - OTH PSYCHOACTIVE SUBSTANCE USE, UNSP W SLEEP DISORDER (7) Alcohol dependence with uncomplicated withdrawal Code(s): F10.230 - ALCOHOL DEPENDENCE WITH WITHDRAWAL, UNCOMPLICATED (8) Anxiety and depression Code(s): F41.8 - OTHER SPECIFIED ANXIETY DISORDERS (9) COPD (chronic obstructive pulmonary disease) Code(s): J44.9 - CHRONIC OBSTRUCTIVE PULMONARY DISEASE, UNSPECIFIED (10) Cannabis dependence Code(s): F12.20 - CANNABIS DEPENDENCE, UNCOMPLICATED (11) Cocaine abuse Code(s): F14.10 - COCAINE ABUSE, UNCOMPLICATED (12) Hypertension Code(s): I10 - ESSENTIAL (PRIMARY) HYPERTENSION Qualifiers: Hypertension type: essential hypertension Qualified Code(s): I10 - Essential (primary) hypertension Assessment/Plan clinically much better cardio consult called detox consult called echo ordered troponin negative continue home meds
[2019-04-29] MEDS: APIXABAN 5 MG TABLET PO SCH ×2 (11:15→21:07)
[2019-04-29] MEDS: amLODIPine BESYLATE 5 MG TABLET (FP) PO SCH (11:15)
--- NOTE | 2019-04-29 13:02 | CON.CARD ---
Consult Consult Specialty:: Cardiology Referred by:: Pallavi Eden MD Reason for Consultation:: h/o splenic infarcts, suspect paroxysmal aflutter - History of Present Illness Chief Complaint: alcohol intoxication History of Present Illness: 48YOF with h/o EtOH use disorder, polysubstance use, CVA in 2002, splenic infarcts noncompliant with Eliquis, fatty liver disease, and duodenal tubular adenoma admitted for syncope. She states that she drank a large amount of Sp Benavidez, snorted cocaine and smoked marijuana. "I blacked out", has a and " feeling lousy". She denies any prior EtOH withdrawal seizures or serious complications. She denies any additional symptoms and states her goal for coming in was simply to "get over my hangover". She was diagnosed with colitis vs. diverticulitis back in January and states she never took her course of home antibiotics, still has symptoms of rectal discharge, abdominal discomfort/ swelling. Transient burst of suspected paroxysmal aflutter @ 147, no ECG performed prior to spontaneous conversion. She denies chest pain, dyspnea, palpitations, near or true syncope, orthopnea, PND or LE edema. 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 positive for lupus anticoagulant 09/16, pending confirmatory testing in 12 wks) - Past Surgical History Past Surgical History: Yes: Appendectomy, Colonoscopy, Hernia Repair, Joint Replacement, Upper Endoscopy - Alcohol/Substance Use Hx Alcohol Use: Yes History of Substance Use: reports: Cocaine ("when I want to" - not much recently , maybe once in last few weeks; nasal), Marijuana ("when I can") Date of Last Use: 11/20/18 - Smoking History Smoking history: Current every day smoker Have you smoked in the past 12 months: Yes Aproximately how many cigarettes per day: 10 - Social History Usual Living Arrangement: With Child ADL: Independent History of Recent Travel: No Home Medications - Allergies Allergies/Adverse Reactions: Allergies Allergy/AdvReac Type Severity Reaction Status Date / Time beeswax Allergy Severe Difficulty Verified 04/27/19 12:13 Breathing coconut oil Allergy Severe Itching Verified 04/27/19 12:13 No Known Drug Allergies Allergy Verified 04/27/19 12:13 - Home Medications Home Medications: Ambulatory Orders Thiamine HCl [Vitamin B1 -] 100 mg PO DAILY tablet 02/15/19 Amlodipine Besylate [Norvasc -] 5 mg PO DAILY #30 tablet 03/30/19 Apixaban [Eliquis -] 5 mg PO BID #30 tablet 03/30/19 Mirtazapine [Remeron -] 15 mg PO HS #30 tablet 04/23/19 Review of Systems - Review of Systems Neurological: reports: Syncope Vital Signs: Vital Signs Temperature 98.8 F 04/29/19 09:29 Pulse Rate 72 04/29/19 09:29 Respiratory Rate 18 04/29/19 09:29 Blood Pressure 118/78 04/29/19 09:29 O2 Sat by Pulse Oximetry (%) 100 04/28/19 21:00 Constitutional: Yes: No Distress, Calm, Thin Neck: Yes: Supple Respiratory: Yes: Regular, CTA Bilaterally Gastrointestinal: Yes: Normal Bowel Sounds, Soft Cardiovascular: Yes: Regular Rate and Rhythm JVD: No Carotid Bruit: No Heart Sounds: Yes: S1, S2 Edema: No - Other Data Labs, Other Data: CBC, BMP 04/28/19 05:45 04/28/19 05:45 INR, PTT INR 1.23 (0.83-1.09) H 04/27/19 13:00 Troponin, BNP 04/28/19 21:00 Troponin I < 0.02 Troponin, BNP 04/28/19 21:00 Troponin I < 0.02 NSR @ 65 1st deg AVB Tele: PAF->NSR Echo: Report Reviewed Ejection Fraction %: LVEF > or = 40 % Imaging - Results Chest X-ray: Report Reviewed (NAD) Cat Scan: Report Reviewed (Mild-mod colonic distension) Problem List - Problems (1) Altered mental status Code(s): R41.82 - ALTERED MENTAL STATUS, UNSPECIFIED Qualifiers: Altered mental status type: somnolence Qualified Code(s): R40.0 - Somnolence (2) PSVT (paroxysmal supraventricular tachycardia) Code(s): I47.1 - SUPRAVENTRICULAR TACHYCARDIA (3) Alcohol dependence with uncomplicated withdrawal Code(s): F10.230 - ALCOHOL DEPENDENCE WITH WITHDRAWAL, UNCOMPLICATED (4) Hypertension Code(s): I10 - ESSENTIAL (PRIMARY) HYPERTENSION Qualifiers: Hypertension type: essential hypertension Qualified Code(s): I10 - Essential (primary) hypertension (5) Old cerebrovascular accident (CVA) without late effect Code(s): Z86.73 - PRSNL HX OF TIA (TIA), AND CEREB INFRC W/O RESID DEFICITS Assessment/Plan Echocardiography dated 09/17/18 revealed borderline LVH with normal LV function, LVEF 60%, trace MR 1. Syncope referable to ETOH intoxication and polysubstance abuse (alcohol, cocaine and cannabis) 2. Splenic infarct, suspected PAF->SR noncompliant with Eliquis 3. HTN 4. Old stroke PLAN: 1. A/C with Eliquis 5 bid and emphasized importance of medication compliance 2. Continue Norvasc 5 qd 3. Alcohol and polysubstance abuse detox and abstinence 4. Thank you for consultative opprtunity
--- NOTE | 2019-04-29 13:30 | ECHO ---
Name: WILY BECKFORD Exam:Adult Echocardiogram Study Date: 04/29/2019 09:30 AM Age: 48 yrs Reason For Study: SYNCOPE Height: 71 in Weight: 157 lb BSA: 1.9 m2 MMode/2D Measurements & Calculations IVSd: 0.76 cm Ao root diam: 2.5 cm LVIDd: 4.1 cm LA dimension: 2.4 cm LVIDs: 2.7 cm LVPWd: 0.70 cm EDV(Teich): 72.7 ml LVOT diam: 2.0 cm ESV(Teich): 27.1 ml Doppler Measurements & Calculations MV E max jonathan: 60.7 cm/sec Ao V2 max: 114.0 cm/sec MV A max jonathan: 59.2 cm/sec Ao max P.2 mmHg MV E/A: 1.0 Ao V2 mean: 80.6 cm/sec MV dec time: 0.19 sec Ao mean P.0 mmHg Ao V2 VTI: 21.8 cm AL(I,D): 3.6 cm2 AL(V,D): 3.6 cm2 LV V1 max P.4 mmHg SV(LVOT): 79.4 ml LV V1 mean P.9 mmHg LV V1 max: 126.9 cm/sec LV V1 mean: 95.8 cm/sec LV V1 VTI: 24.3 cm TR max jonathan: 193.9 cm/sec Med Peak E' Jonathan: 8.3 cm/sec TR max P.0 mmHg Med E/e': 7.3 Lat Peak E' Jonathan: 8.8 cm/sec Lat E/e': 6.9 Procedure A two-dimensional transthoracic echocardiogram with color flow and Doppler was performed. Left Ventricle The left ventricular size, thickness and function are normal. The left ventricular ejection fraction is normal. The left ventricular wall motion is normal. Right Ventricle The right ventricle is normal in size and function. Atria Normal left and right atrial size and function. Mitral Valve There is mild mitral valve thickening. There is no mitral valve stenosis. There is mild mitral regurg itation. Tricuspid Valve There is mild tricuspid valve thickening. There is no tricuspid stenosis. There is mild tricuspid regurgitation. Right ventricular systolic pressure is normal. Aortic Valve The aortic valve is not well visualized. No hemodynamically significant valvular aortic stenosis. No aortic regurgitation is present. Pulmonic Valve The pulmonic valve is not well visualized. Great Vessels The aortic root is normal size. Pericardium/Pleura There is no pericardial effusion. Interpretation Summary The left ventricular size, thickness and function are normal The left ventricular ejection fraction is normal. The left ventricular wall motion is normal. There is mild tricuspid regurgitation. Right ventricular systolic pressure is normal. There is mild mitral regurgitation. MD Sp Samano 04/29/2019 01:29 PM
--- NOTE | 2019-04-29 18:31 | PN ---
Progress Note, Physician - Current Medication List Current Medications: Active Medications Amlodipine Besylate (Norvasc -) 5 mg PO DAILY [facility] Last Admin: 04/29/19 11:15 Dose: 5 mg Apixaban (Eliquis -) 5 mg PO BID [facility] Last Admin: 04/29/19 11:15 Dose: 5 mg - Objective Vital Signs: Vital Signs Temperature 98.9 F 04/29/19 14:00 Pulse Rate 97 H 04/29/19 14:00 Respiratory Rate 18 04/29/19 09:29 Blood Pressure 121/86 04/29/19 14:00 O2 Sat by Pulse Oximetry (%) 100 04/29/19 09:00 Constitutional: Yes: No Distress HENT: Yes: Atraumatic Neck: Yes: Supple Cardiovascular: Yes: Regular Rate and Rhythm Respiratory: Yes: CTA Bilaterally Gastrointestinal: Yes: Normal Bowel Sounds Extremities: Yes: WNL Edema: No Neurological: Yes: Alert, Oriented Labs: CBC, BMP 04/28/19 05:45 04/28/19 05:45 INR, PTT INR 1.23 (0.83-1.09) H 04/27/19 13:00 Problem List - Problems (1) Altered mental status Assessment/Plan: alert and oriented now Code(s): R41.82 - ALTERED MENTAL STATUS, UNSPECIFIED Qualifiers: Altered mental status type: somnolence Qualified Code(s): R40.0 - Somnolence (2) Hyperammonemia Assessment/Plan: was given lactulose monitor Code(s): E72.20 - DISORDER OF UREA CYCLE METABOLISM, UNSPECIFIED (3) Lactic acidemia Assessment/Plan: repeat levels Code(s): E87.2 - ACIDOSIS (4) Substance induced mood disorder Code(s): F19.94 - OTH PSYCHOACTIVE SUBSTANCE USE, UNSP W MOOD DISORDER (5) Substance-induced anxiety disorder Code(s): F19.980 - OTH PSYCHOACTIVE SUBSTANCE USE, UNSP W ANXIETY DISORDER (6) Substance-induced sleep disorder Code(s): F19.982 - OTH PSYCHOACTIVE SUBSTANCE USE, UNSP W SLEEP DISORDER (7) Alcohol dependence with uncomplicated withdrawal Code(s): F10.230 - ALCOHOL DEPENDENCE WITH WITHDRAWAL, UNCOMPLICATED (8) Anxiety and depression Code(s): F41.8 - OTHER SPECIFIED ANXIETY DISORDERS (9) COPD (chronic obstructive pulmonary disease) Code(s): J44.9 - CHRONIC OBSTRUCTIVE PULMONARY DISEASE, UNSPECIFIED (10) Cannabis dependence Code(s): F12.20 - CANNABIS DEPENDENCE, UNCOMPLICATED (11) Cocaine abuse Code(s): F14.10 - COCAINE ABUSE, UNCOMPLICATED (12) Hypertension Code(s): I10 - ESSENTIAL (PRIMARY) HYPERTENSION Qualifiers: Hypertension type: essential hypertension Qualified Code(s): I10 - Essential (primary) hypertension
[2019-04-30 02:30] VITALS: BP 115/94; PULSE 101; TEMP 98.4
--- NOTE | 2019-04-30 09:00 | PN ---
Progress Note, Physician History of Present Illness: 48YOF with h/o EtOH use disorder, polysubstance use, CVA in 2002, splenic infarcts noncompliant with Eliquis, fatty liver disease, and duodenal tubular adenoma admitted for syncope. She states that she drank a large amount of Sp Benavidez, snorted cocaine and smoked marijuana. "I blacked out", has a and " feeling lousy". She denies any prior EtOH withdrawal seizures or serious complications. She denies any additional symptoms and states her goal for coming in was simply to "get over my hangover". She was diagnosed with colitis vs. diverticulitis back in January and states she never took her course of home antibiotics, still has symptoms of rectal discharge, abdominal discomfort/ swelling. Transient burst of suspected paroxysmal aflutter @ 147, no ECG performed prior to spontaneous conversion. She denies chest pain, dyspnea, palpitations, near or true syncope, orthopnea, PND or LE edema. - Current Medication List Current Medications: Active Medications Amlodipine Besylate (Norvasc -) 5 mg PO DAILY [facility] Last Admin: 04/29/19 11:15 Dose: 5 mg Apixaban (Eliquis -) 5 mg PO BID [facility] Last Admin: 04/29/19 21:07 Dose: 5 mg - Objective Vital Signs: Vital Signs Temperature 98.4 F 04/30/19 02:00 Pulse Rate 101 H 04/30/19 02:00 Respiratory Rate 20 04/30/19 02:00 Blood Pressure 115/94 04/30/19 02:00 O2 Sat by Pulse Oximetry (%) 100 04/29/19 21:00 Labs: CBC, BMP 04/28/19 05:45 04/28/19 05:45 INR, PTT INR 1.23 (0.83-1.09) H 04/27/19 13:00 Problem List - Problems (1) Altered mental status Code(s): R41.82 - ALTERED MENTAL STATUS, UNSPECIFIED Qualifiers: Altered mental status type: somnolence Qualified Code(s): R40.0 - Somnolence (2) PSVT (paroxysmal supraventricular tachycardia) Code(s): I47.1 - SUPRAVENTRICULAR TACHYCARDIA (3) Alcohol dependence with uncomplicated withdrawal Code(s): F10.230 - ALCOHOL DEPENDENCE WITH WITHDRAWAL, UNCOMPLICATED (4) Hypertension Code(s): I10 - ESSENTIAL (PRIMARY) HYPERTENSION Qualifiers: Hypertension type: essential hypertension Qualified Code(s): I10 - Essential (primary) hypertension (5) Old cerebrovascular accident (CVA) without late effect Code(s): Z86.73 - PRSNL HX OF TIA (TIA), AND CEREB INFRC W/O RESID DEFICITS Assessment/Plan Echocardiography dated 09/17/18 revealed borderline LVH with normal LV function, LVEF 60%, trace MR 1. Syncope referable to ETOH intoxication and polysubstance abuse (alcohol, cocaine and cannabis) 2. Splenic infarct, suspected PAF->SR noncompliant with Eliquis 3. HTN 4. Old stroke PLAN: 1. A/C with Eliquis 5 bid and emphasized importance of medication compliance 2. Continue Norvasc 5 qd 3. Alcohol and polysubstance abuse detox and abstinence 4. Thank you for consultative opprtunity
[2019-04-30] MEDS: amLODIPine BESYLATE 5 MG TABLET (FP) PO SCH (10:36)
[2019-04-30] MEDS: APIXABAN 5 MG TABLET PO SCH (10:36)
--- NOTE | 2019-04-30 18:19 | DS ---
Physical Examination Vital Signs: Vital Signs Temperature 98.4 F 04/30/19 02:00 Pulse Rate 101 H 04/30/19 02:00 Respiratory Rate 20 04/30/19 08:58 Blood Pressure 115/94 04/30/19 02:00 O2 Sat by Pulse Oximetry (%) 100 04/30/19 08:58 Labs: CBC, BMP 04/28/19 05:45 04/28/19 05:45 Discharge Summary Problems reviewed: Yes Reason For Visit: COCAINE ABUSE LACTIC ACIDEMIA Condition: Guarded - Instructions Disposition: HOME - Home Medications Comprehensive Discharge Medication List: Ambulatory Orders Thiamine HCl [Vitamin B1 -] 100 mg PO DAILY tablet 02/15/19 Amlodipine Besylate [Norvasc -] 5 mg PO DAILY #30 tablet 03/30/19 Apixaban [Eliquis -] 5 mg PO BID #30 tablet 03/30/19 Mirtazapine [Remeron -] 15 mg PO HS #30 tablet 04/23/19 [facility] Prescription Drug Monitoring Program (I-STOP) results: I-STOP reviewed and no issues identified
== END 2019-04-30 11:02 | disposition home or self-care (01) | DRG 423 ==
LOC: JER 11:34 → JERBED 15:47 → J4W 19:45
PROVIDERS: ADMIT Internal Medicine; ATTEND Internal Medicine
DX: E72.20 Disorder of urea cycle metabolism, unspecified (principal); K76.0 Fatty (change of) liver, not elsewhere classified; F10.220 Alcohol dependence with intoxication, uncomplicated; E87.2 Acidosis; F10.230 Alcohol dependence with withdrawal, uncomplicated; Z86.718 Personal history of other venous thrombosis and embolism; F17.210 Nicotine dependence, cigarettes, uncomplicated; F14.10 Cocaine abuse, uncomplicated; Z86.73 Personal history of transient ischemic attack (TIA), and cerebral infarction without residual deficits; F12.20 Cannabis dependence, uncomplicated; J44.9 Chronic obstructive pulmonary disease, unspecified; F41.8 Other specified anxiety disorders; Z91.14 Patient's other noncompliance with medication regimen; R55 Syncope and collapse
CPT/HCPCS: 36415; 70450-TC; 71046-TC-FY; 74177-TC; 80053; 80307; 81003; 82140; 82550; 83605; 83690; 83735; 84484; 84702; 85025; 85610; 87086; 93005; 93010; 93306-TC; 99283-25; J7030

== ENCOUNTER 2019-05-01 17:20 | Inpatient (IN) | payer OTHER ==
[2019-05-01 21:46] VITALS: BMI 21.0
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
[2019-05-01] MEDS ORDERED: MELATONIN 5 MG TABLETS PO PRN (22:52)
[2019-05-01] MEDS ORDERED: MENTHOL/PHENOL 1 EACH UD MM PRN (22:52)
[2019-05-01] MEDS ORDERED: MAGNESIUM CITRATE 300 ML BOTTLE PO PRN (22:52)
[2019-05-01] MEDS ORDERED: MAG HYDROX/AL HYDROX/SIMETH 30 ML UNIT-DOSE CUP PO PRN (22:52)
[2019-05-01] MEDS ORDERED: P-EPHED 60MG/TRIPROLIDI 2.5MG TABLET PO PRN (22:52)
[2019-05-01] MEDS ORDERED: ONDANSETRON *ODT* 4 MG TABLET SL PRN (22:52)
[2019-05-01] MEDS ORDERED: chlordiazePOXIDE HCL 25 MG CAPSULE PO PRN (22:52)
[2019-05-01] MEDS ORDERED: BISMUTH SUBSALICYLATE 524 MG/30 ML UD PO PRN (22:52)
[2019-05-01] MEDS ORDERED: hydrOXYzine PAMOATE 25 MG CAPSULE (FP) PO PRN (22:52)
[2019-05-01] MEDS ORDERED: ACETAMINOPHEN 325 MG TABLET (FP) PO PRN (22:52)
[2019-05-01] MEDS ORDERED: MAGNESIUM HYDROX 2400MG/30ML ORAL SUSPENSION 30 ML CUP PO PRN (22:52)
[2019-05-01] MEDS ORDERED: DICYCLOMINE HCL 10 MG CAPSULE PO PRN (22:52)
[2019-05-02] MEDS: chlordiazePOXIDE HCL 25 MG CAPSULE PO SCH ×5 (00:04→23:05)
[2019-05-02] MEDS: METHOCARBAMOL 500 MG TABLET PO PRN ×4 (00:05→23:07)
[2019-05-02] MEDS: ACETAMINOPHEN 325 MG TABLET (FP) PO PRN ×2 (05:53→23:06)
[2019-05-02] MEDS: PRENATAL VITAMINS W/ FOLIC ACID TABLET (FP) PO SCH (10:31)
[2019-05-02] MEDS: amLODIPine BESYLATE 5 MG TABLET (FP) PO SCH (10:31)
[2019-05-02 11:14] LABS: HEMATOCRIT 33.7 % (32.4-45.2); HEMOGLOBIN 11.2 GM/dL (10.7-15.3); MCH 33.4 pg (25.7-33.7); MCHC 33.3 g/dl (32.0-36.0); MEAN CELL VOLUME 100.2 fl (80-96); MEAN PLT VOLUME 8.5 fl (7.5-11.1); PLATELET COUNT 263 K/MM3 (134-434); RBC 3.36 M/mm3 (3.60-5.2); RDW 14.2 % (11.6-15.6); WHITE BLOOD COUNT 4.4 K/mm3 (4.0-10.0)
[2019-05-02 11:26] LABS: ALBUMIN 3.8 g/dl (3.4-5.0); BILIRUBIN,TOTAL 0.4 mg/dL (0.2-1); POTASSIUM 3.8 mmol/L (3.5-5.1); TOT PROT 8.5 g/dl (6.4-8.2)
[2019-05-02] MEDS: APIXABAN 2.5 MG TABLET PO SCH ×2 (13:03→23:05)
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
--- NOTE | 2019-05-02 14:11 | PN ---
S CIWA - CIWA Score Nausea/Vomitin-No Nausea/No Vomiting Muscle Tremors: 2 Anxiety: 3 Agitation: 1-Slight > Activity Paroxysmal Sweats: 3 Orientation: 0-Oriented Tacttile Disturbances: 1-Very Mild Itch/Numbness Auditory Disturbances: 0-None Visual Disturbances: 0-None Headache: 2-Mild CIWA-Ar Total Score: 12 S Progress Note (SOAP) Subjective: c/o muscle aches, headache, sweats, anxiety, and interrupted sleep. Objective: 05/02/19 14:10 Vital Signs 05/02/19 05/02/19 09:49 13:51 Temperature 99.1 F 97.9 F Pulse Rate 78 108 H Respiratory 18 18 Rate Blood Pressure 121/89 148/87 Lab Results WBC 4.4 K/mm3 (4.0-10.0) 05/02/19 08:10 RBC 3.36 M/mm3 (3.60-5.2) L 05/02/19 08:10 Hgb 11.2 GM/dL (10.7-15.3) 05/02/19 08:10 Hct 33.7 % (32.4-45.2) 05/02/19 08:10 MCV 100.2 fl (80-96) H 05/02/19 08:10 MCHC 33.3 g/dl (32.0-36.0) 05/02/19 08:10 RDW 14.2 % (11.6-15.6) 05/02/19 08:10 Plt Count 263 K/MM3 (134-434) D 05/02/19 08:10 Sodium 138 mmol/L (136-145) 05/02/19 08:10 Potassium 3.8 mmol/L (3.5-5.1) 05/02/19 08:10 Chloride 104 mmol/L (98-107) 05/02/19 08:10 Carbon Dioxide 26 mmol/L (21-32) 05/02/19 08:10 Anion Gap 8 MMOL/L (8-16) 05/02/19 08:10 BUN 17.0 mg/dL (7-18) 05/02/19 08:10 Creatinine 1.0 mg/dL (0.55-1.3) 05/02/19 08:10 Random Glucose 76 mg/dL (74-106) 05/02/19 08:10 Calcium 9.0 mg/dL (8.5-10.1) 05/02/19 08:10 Labs noted. Assessment: 05/02/19 14:10 AOX3, in no acute respiratory distress. Full ROM, ambulating in the unit. Withdrawal symptoms. Plan: continue detox.
[2019-05-02] MEDS: hydrOXYzine PAMOATE 25 MG CAPSULE (FP) PO PRN (18:00)
[2019-05-02] MEDS: THIAMINE HCL 100 MG TABLET (FP) PO SCH (23:05)
[2019-05-03] MEDS: hydrOXYzine PAMOATE 25 MG CAPSULE (FP) PO PRN (05:40)
[2019-05-03] MEDS: METHOCARBAMOL 500 MG TABLET PO PRN ×2 (05:40→22:16)
[2019-05-03] MEDS: ACETAMINOPHEN 325 MG TABLET (FP) PO PRN (05:40)
[2019-05-03] MEDS: chlordiazePOXIDE HCL 25 MG CAPSULE PO SCH ×4 (05:40→22:13)
[2019-05-03] MEDS: PRENATAL VITAMINS W/ FOLIC ACID TABLET (FP) PO SCH (10:38)
[2019-05-03] MEDS: amLODIPine BESYLATE 5 MG TABLET (FP) PO SCH (10:39)
[2019-05-03] MEDS: APIXABAN 2.5 MG TABLET PO SCH (10:39)
--- NOTE | 2019-05-03 17:08 | PN ---
S CIWA - CIWA Score Nausea/Vomitin-No Nausea/No Vomiting Muscle Tremors: 3 Anxiety: 1-Mildly Anxious Agitation: 0-Normal Activity Paroxysmal Sweats: 3 Orientation: 0-Oriented Tacttile Disturbances: 0-None Auditory Disturbances: 0-None Visual Disturbances: 0-None Headache: 0-None Present CIWA-Ar Total Score: 7 BHS Progress Note (SOAP) Subjective: sweats sleep disturbance Objective: 05/03/19 17:07 a & ox 3 met sitting on bed Last Vital Signs Temp Pulse Resp BP Pulse Ox 98.6 F 80 18 115/86 05/03/19 16:43 05/03/19 16:43 05/03/19 16:43 05/03/19 16:43 Assessment: 05/03/19 17:08 withdrawal sx Plan: continue detox
[2019-05-03] MEDS: THIAMINE HCL 100 MG TABLET (FP) PO SCH (22:13)
[2019-05-03] MEDS: SUVOREXANT 10 MG TABLET PO PRN (22:15)
[2019-05-03] MEDS: guaiFENesin 200 MG/10 ML 10 ML UNIT-DOSE CUPS PO PRN (22:17)
[2019-05-04] MEDS ORDERED: chlordiazePOXIDE HCL 10 MG CAPSULE PO PRN
[2019-05-04] MEDS: APIXABAN 2.5 MG TABLET PO SCH ×2 (00:07→13:01)
[2019-05-04] MEDS: chlordiazePOXIDE HCL 10 MG CAPSULE PO SCH ×4 (05:25→22:06)
[2019-05-04] MEDS: METHOCARBAMOL 500 MG TABLET PO PRN ×2 (05:26→22:08)
[2019-05-04] MEDS: hydrOXYzine PAMOATE 25 MG CAPSULE (FP) PO PRN (05:27)
--- NOTE | 2019-05-04 10:00 | PN ---
[facility] CIWA - CIWA Score Nausea/Vomitin-No Nausea/No Vomiting Muscle Tremors: 3 Anxiety: 1-Mildly Anxious Agitation: 1-Slight > Activity Paroxysmal Sweats: 1-Minimal Palms Moist Orientation: 0-Oriented Tacttile Disturbances: 0-None Auditory Disturbances: 0-None Visual Disturbances: 0-None Headache: 0-None Present CIWA-Ar Total Score: 6 BHS Progress Note (SOAP) Subjective: sweats irritable body aches Objective: 05/04/19 09:59 Vital Signs Temperature 99.5 F 05/04/19 09:14 Pulse Rate 92 H 05/04/19 09:14 Respiratory Rate 18 05/04/19 09:14 Blood Pressure 110/77 05/04/19 09:14 O2 Sat by Pulse Oximetry (%) Laboratory Tests 05/01/19 05/02/19 05/02/19 15:00 08:10 08:10 WBC 4.4 RBC 3.36 L Hgb 11.2 Hct 33.7 MCV 100.2 H MCH 33.4 MCHC 33.3 RDW 14.2 Plt Count 263 D MPV 8.5 Sodium 138 Potassium 3.8 Chloride 104 Carbon Dioxide 26 Anion Gap 8 BUN 17.0 Creatinine 1.0 Est GFR (CKD-EPI)AfAm 77.15 Est GFR (CKD-EPI)NonAf 66.57 Random Glucose 76 Calcium 9.0 Total Bilirubin 0.4 AST 45 H ALT 55 Alkaline Phosphatase 105 Total Protein 8.5 H Albumin 3.8 POC Urine HCG, Qual Negative RPR Titer 05/02/19 08:10 WBC RBC Hgb Hct MCV MCH MCHC RDW Plt Count MPV Sodium Potassium Chloride Carbon Dioxide Anion Gap BUN Creatinine Est GFR (CKD-EPI)AfAm Est GFR (CKD-EPI)NonAf Random Glucose Calcium Total Bilirubin AST ALT Alkaline Phosphatase Total Protein Albumin POC Urine HCG, Qual RPR Titer Nonreactive labs noted aaox3 ambulating no acute distress Assessment: 05/04/19 09:59 mild withdrawals Plan: continue detox increase fluids
[2019-05-04] MEDS: PRENATAL VITAMINS W/ FOLIC ACID TABLET (FP) PO SCH (10:01)
[2019-05-04] MEDS: amLODIPine BESYLATE 5 MG TABLET (FP) PO SCH (10:01)
[2019-05-04] MEDS: THIAMINE HCL 100 MG TABLET (FP) PO SCH (22:06)
[2019-05-04] MEDS: APIXABAN 5 MG TABLET PO SCH (22:06)
[2019-05-04] MEDS: SUVOREXANT 10 MG TABLET PO PRN (22:08)
[2019-05-04] MEDS: guaiFENesin 200 MG/10 ML 10 ML UNIT-DOSE CUPS PO PRN (22:08)
[2019-05-05] MEDS: chlordiazePOXIDE HCL 10 MG CAPSULE PO SCH ×2 (06:00→17:33)
[2019-05-05] MEDS: ACETAMINOPHEN 325 MG TABLET (FP) PO PRN ×2 (08:00→17:34)
[2019-05-05] MEDS: PRENATAL VITAMINS W/ FOLIC ACID TABLET (FP) PO SCH (10:07)
[2019-05-05] MEDS: METHOCARBAMOL 500 MG TABLET PO PRN ×2 (10:07→17:34)
[2019-05-05] MEDS: amLODIPine BESYLATE 5 MG TABLET (FP) PO SCH (10:07)
[2019-05-05] MEDS: APIXABAN 5 MG TABLET PO SCH ×2 (10:07→21:59)
[2019-05-05] MEDS: hydrOXYzine PAMOATE 25 MG CAPSULE (FP) PO PRN ×2 (10:09→21:59)
--- NOTE | 2019-05-05 14:04 | PN ---
S CIWA - CIWA Score Nausea/Vomitin-No Nausea/No Vomiting Muscle Tremors: 2 Anxiety: 1-Mildly Anxious Agitation: 1-Slight > Activity Paroxysmal Sweats: 1-Minimal Palms Moist Orientation: 0-Oriented Tacttile Disturbances: 0-None Auditory Disturbances: 0-None Visual Disturbances: 0-None Headache: 0-None Present CIWA-Ar Total Score: 5 BHS Progress Note (SOAP) Subjective: sweats irritable Objective: 05/05/19 14:03 Vital Signs Temperature 99.3 F 05/05/19 13:38 Pulse Rate 104 H 05/05/19 13:38 Respiratory Rate 18 05/05/19 13:38 Blood Pressure 116/68 05/05/19 13:38 O2 Sat by Pulse Oximetry (%) aaox3 ambulating no acute distress Assessment: 05/05/19 14:04 mild withdrawals Plan: continue detox d/c in am
[2019-05-05] MEDS: THIAMINE HCL 100 MG TABLET (FP) PO SCH (21:59)
[2019-05-05] MEDS: guaiFENesin 200 MG/10 ML 10 ML UNIT-DOSE CUPS PO PRN (21:59)
[2019-05-05] MEDS: SUVOREXANT 10 MG TABLET PO PRN (22:02)
[2019-05-05] MEDS ORDERED: SUVOREXANT 10 MG TABLET PO ONE (22:03)
[2019-05-06] MEDS ORDERED: chlordiazePOXIDE HCL 10 MG CAPSULE PO ONE (05:00)
[2019-05-06] MEDS: METHOCARBAMOL 500 MG TABLET PO PRN (05:49)
[2019-05-06 06:23] VITALS: BP 113/63; PULSE 74; TEMP 98.9
--- NOTE | 2019-05-06 09:33 | DS ---
[facility] Detox Discharge Summary Admission Date: 05/01/19 Discharge Date: 05/06/19 - History Present History: Alcohol Dependence, Cannabis Dependence, Cocaine Dependence, Pcp Dependence - Physical Exam Results Vital Signs: Vital Signs Temperature 98.9 F 05/06/19 06:23 Pulse Rate 74 05/06/19 06:23 Respiratory Rate 18 05/06/19 06:23 Blood Pressure 113/63 05/06/19 06:23 O2 Sat by Pulse Oximetry (%) Pertinent Admission Physical Exam Findings: pt arrived in withdrawals Laboratory Tests 05/01/19 05/02/19 05/02/19 15:00 08:10 08:10 WBC 4.4 RBC 3.36 L Hgb 11.2 Hct 33.7 MCV 100.2 H MCH 33.4 MCHC 33.3 RDW 14.2 Plt Count 263 D MPV 8.5 Sodium 138 Potassium 3.8 Chloride 104 Carbon Dioxide 26 Anion Gap 8 BUN 17.0 Creatinine 1.0 Est GFR (CKD-EPI)AfAm 77.15 Est GFR (CKD-EPI)NonAf 66.57 Random Glucose 76 Calcium 9.0 Total Bilirubin 0.4 AST 45 H ALT 55 Alkaline Phosphatase 105 Total Protein 8.5 H Albumin 3.8 POC Urine HCG, Qual Negative RPR Titer 05/02/19 08:10 WBC RBC Hgb Hct MCV MCH MCHC RDW Plt Count MPV Sodium Potassium Chloride Carbon Dioxide Anion Gap BUN Creatinine Est GFR (CKD-EPI)AfAm Est GFR (CKD-EPI)NonAf Random Glucose Calcium Total Bilirubin AST ALT Alkaline Phosphatase Total Protein Albumin POC Urine HCG, Qual RPR Titer Nonreactive pt is aaox3 ambulating no acute distress no s/s of withdrawals - Treatment Hospital Course: Detox Protocol Followed, Detoxed Safely, Responded well, Discharged Condition Good, Rehab Referral Accepted - Medication Discharge Medications: Ambulatory Orders Apixaban [Eliquis -] 5 mg PO BID #30 tablet 03/30/19 Mirtazapine [Remeron -] 15 mg PO HS #30 tablet 04/23/19 Amlodipine Besylate [Norvasc -] 5 mg PO DAILY #30 tablet 05/01/19 - Diagnosis (1) Alcohol dependence with uncomplicated withdrawal Current Visit: Yes Status: Chronic (2) Cannabis dependence Current Visit: Yes Status: Chronic (3) Cocaine dependence Current Visit: Yes Status: Chronic Qualifiers: Substance use status: uncomplicated Qualified Code(s): F14.20 - Cocaine dependence, uncomplicated (4) Substance-induced anxiety disorder Current Visit: Yes Status: Acute (5) Substance-induced sleep disorder Current Visit: Yes Status: Acute (6) DVT (deep venous thrombosis) Current Visit: Yes Status: Chronic Qualifiers: DVT location: lower extremity Chronicity: chronic Laterality: right (7) GERD (gastroesophageal reflux disease) Current Visit: Yes Status: Chronic Qualifiers: Esophagitis presence: without esophagitis Qualified Code(s): K21.9 - Gastro -esophageal reflux disease without esophagitis (8) Hypertension Current Visit: Yes Status: Chronic Qualifiers: Hypertension type: essential hypertension Qualified Code(s): I10 - Essential (primary) hypertension (9) Depressed affect Current Visit: Yes Status: Suspected (10) Drug-induced mood disorder Current Visit: Yes Status: Suspected (11) Mobitz (type) I (Wenckebach's) atrioventricular block Current Visit: No Status: Acute (12) PSVT (paroxysmal supraventricular tachycardia) Current Visit: No Status: Acute (13) Prolonged QT interval Current Visit: No Status: Acute (14) Substance induced mood disorder Current Visit: No Status: Acute (15) Anxiety and depression Current Visit: No Status: Chronic (16) Murmur, cardiac Current Visit: Yes Status: Chronic (17) PCP abuse Current Visit: Yes Status: Chronic (18) Substance induced mood disorder Current Visit: No Status: Chronic (19) Old cerebrovascular accident (CVA) without late effect Current Visit: No Status: Inactive - AMA Did Patient Leave Against Medical Advice: No
== END 2019-05-06 09:53 | disposition home or self-care (01) | DRG 774 ==
LOC: YASAS 17:20 → Y6N 23:42
PROVIDERS: ADMIT Allergy & Immunology; ATTEND Allergy & Immunology
PROC: HZ2ZZZZ Detoxification Services for Substance Abuse Treatment (ICD-10-PCS; principal; 2019-05-01)
DX: F10.230 Alcohol dependence with withdrawal, uncomplicated (principal); F14.20 Cocaine dependence, uncomplicated; F12.20 Cannabis dependence, uncomplicated; F16.10 Hallucinogen abuse, uncomplicated; F19.24 Other psychoactive substance dependence with psychoactive substance-induced mood disorder; F19.280 Other psychoactive substance dependence with psychoactive substance-induced anxiety disorder; F19.282 Other psychoactive substance dependence with psychoactive substance-induced sleep disorder; F32.9 Major depressive disorder, single episode, unspecified; F41.9 Anxiety disorder, unspecified; I10 Essential (primary) hypertension; G47.00 Insomnia, unspecified; K21.9 Gastro-esophageal reflux disease without esophagitis; I44.0 Atrioventricular block, first degree; I47.1 Supraventricular tachycardia; I45.81 Long QT syndrome; R01.1 Cardiac murmur, unspecified; E78.5 Hyperlipidemia, unspecified; J45.909 Unspecified asthma, uncomplicated; K76.0 Fatty (change of) liver, not elsewhere classified; K64.8 Other hemorrhoids; Z86.718 Personal history of other venous thrombosis and embolism; Z86.73 Personal history of transient ischemic attack (TIA), and cerebral infarction without residual deficits; Z96.651 Presence of right artificial knee joint; Z91.410 Personal history of adult physical and sexual abuse
CPT/HCPCS: 36415; 80053; 81025; 85027; 86593; Q0162

== ENCOUNTER 2019-05-17 12:38 | Inpatient (IN) | payer OTHER ==
[2019-05-17 12:55] VITALS: BMI 21.9
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
[2019-05-17] MEDS ORDERED: MAG HYDROX/AL HYDROX/SIMETH 30 ML UNIT-DOSE CUP PO PRN (16:22)
[2019-05-17] MEDS ORDERED: MAGNESIUM HYDROX 2400MG/30ML ORAL SUSPENSION 30 ML CUP PO PRN (16:22)
[2019-05-17] MEDS ORDERED: MAGNESIUM CITRATE 300 ML BOTTLE PO PRN (16:22)
[2019-05-17] MEDS ORDERED: ACETAMINOPHEN 325 MG TABLET (FP) PO PRN (16:22)
[2019-05-17] MEDS ORDERED: chlordiazePOXIDE HCL 25 MG CAPSULE PO ONE (16:22)
[2019-05-17] MEDS ORDERED: MENTHOL/PHENOL 1 EACH UD MM PRN (16:22)
[2019-05-17] MEDS ORDERED: chlordiazePOXIDE HCL 10 MG CAPSULE PO PRN (16:22)
[2019-05-17] MEDS ORDERED: BISMUTH SUBSALICYLATE 524 MG/30 ML UD PO PRN (16:22)
[2019-05-17] MEDS ORDERED: BENZOCAINE 28 GM HEMORRHOIDAL OINTMENT PR PRN (16:35)
[2019-05-17] MEDS: ACETAMINOPHEN 325 MG TABLET (FP) PO PRN (17:34)
[2019-05-17] MEDS ORDERED: DOCUSATE SODIUM 100 MG CAPSULE (FP) PO ONE (22:00)
[2019-05-17] MEDS: APIXABAN 5 MG TABLET PO SCH (22:05)
[2019-05-17] MEDS: chlordiazePOXIDE HCL 25 MG CAPSULE PO SCH (22:05)
[2019-05-17] MEDS: THIAMINE HCL 100 MG TABLET (FP) PO SCH (22:06)
[2019-05-18] MEDS: chlordiazePOXIDE HCL 25 MG CAPSULE PO SCH ×3 (05:46→22:13)
[2019-05-18] MEDS: ACETAMINOPHEN 325 MG TABLET (FP) PO PRN (05:46)
[2019-05-18] MEDS: amLODIPine BESYLATE 5 MG TABLET (FP) PO SCH (10:45)
[2019-05-18] MEDS: DOCUSATE SODIUM 100 MG CAPSULE (FP) PO SCH ×3 (10:45→22:13)
[2019-05-18] MEDS: APIXABAN 5 MG TABLET PO SCH ×2 (10:45→22:13)
[2019-05-18] MEDS: PANTOPRAZOLE 20 MG TABLET (FP) PO SCH (10:45)
[2019-05-18] MEDS: PRENATAL VITAMINS W/ FOLIC ACID TABLET (FP) PO SCH (10:45)
--- NOTE | 2019-05-18 12:06 | PN ---
S CIWA - CIWA Score Nausea/Vomitin-No Nausea/No Vomiting Muscle Tremors: 3 Anxiety: 3 Agitation: 4-Moderately Restless Paroxysmal Sweats: 2 Orientation: 0-Oriented Tacttile Disturbances: 0-None Auditory Disturbances: 0-None Visual Disturbances: 0-None Headache: 0-None Present CIWA-Ar Total Score: 12 BHS Progress Note (SOAP) Subjective: sweats shakes interrupted sleep I need to see psych body aches/muscle aches Objective: 05/18/19 12:04 Vital Signs Temperature 97.8 F 05/18/19 09:42 Pulse Rate 79 05/18/19 09:42 Respiratory Rate 18 05/18/19 09:42 Blood Pressure 96/68 05/18/19 09:42 O2 Sat by Pulse Oximetry (%) aaox3 ambulating no acute distress Assessment: 05/18/19 12:04 withdrawal sx Plan: continue detox increase fluids psych ordered roboxin prn visitirl prn
[2019-05-18] MEDS: hydrOXYzine PAMOATE 25 MG CAPSULE (FP) PO PRN ×2 (12:18→22:12)
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
[2019-05-18] MEDS: METHOCARBAMOL 500 MG TABLET PO PRN ×2 (15:31→22:12)
[2019-05-18] MEDS: MELATONIN 5 MG TABLETS PO PRN (22:13)
[2019-05-18] MEDS: THIAMINE HCL 100 MG TABLET (FP) PO SCH (22:13)
[2019-05-19] MEDS: DOCUSATE SODIUM 100 MG CAPSULE (FP) PO SCH ×3 (07:22→21:40)
[2019-05-19] MEDS: chlordiazePOXIDE 5 MG CAPSULE PO SCH ×3 (07:24→21:41)
[2019-05-19] MEDS: PRENATAL VITAMINS W/ FOLIC ACID TABLET (FP) PO SCH (10:19)
[2019-05-19] MEDS: PANTOPRAZOLE 20 MG TABLET (FP) PO SCH (10:19)
[2019-05-19] MEDS: APIXABAN 5 MG TABLET PO SCH ×2 (10:19→21:40)
[2019-05-19] MEDS: amLODIPine BESYLATE 5 MG TABLET (FP) PO SCH (10:19)
[2019-05-19] MEDS: ONDANSETRON *ODT* 4 MG TABLET SL PRN ×2 (10:20→22:17)
[2019-05-19] MEDS: ACETAMINOPHEN 325 MG TABLET (FP) PO PRN ×2 (10:20→19:36)
[2019-05-19] MEDS: hydrOXYzine PAMOATE 25 MG CAPSULE (FP) PO PRN ×2 (10:22→21:40)
[2019-05-19] MEDS: METHOCARBAMOL 500 MG TABLET PO PRN ×2 (10:22→21:40)
--- NOTE | 2019-05-19 12:30 | PN ---
S CIWA - CIWA Score Nausea/Vomitin-No Nausea/No Vomiting Muscle Tremors: 3 Anxiety: 2 Agitation: 2 Paroxysmal Sweats: 3 Orientation: 0-Oriented Tacttile Disturbances: 0-None Auditory Disturbances: 0-None Visual Disturbances: 0-None Headache: 0-None Present CIWA-Ar Total Score: 10 BHS Progress Note (SOAP) Subjective: sweats shakes interrupted sleep irritable Objective: 05/19/19 12:29 Vital Signs Temperature 98.8 F 05/19/19 11:25 Pulse Rate 100 H 05/19/19 11:25 Respiratory Rate 18 05/19/19 11:25 Blood Pressure 121/87 05/19/19 11:25 O2 Sat by Pulse Oximetry (%) Laboratory Tests 05/17/19 13:39 POC Urine HCG, Qual Negative aaox3 ambulating no acute distress previous labs were drawn on her last visit; results WNL Assessment: 05/19/19 12:30 withdrawals Plan: continue detox increase fluids
[2019-05-19] MEDS: THIAMINE HCL 100 MG TABLET (FP) PO SCH (21:40)
[2019-05-19] MEDS: MELATONIN 5 MG TABLETS PO PRN (21:44)
[2019-05-20] MEDS ORDERED: chlordiazePOXIDE HCL 10 MG CAPSULE PO PRN
[2019-05-20] MEDS: METHOCARBAMOL 500 MG TABLET PO PRN ×2 (06:29→23:01)
[2019-05-20] MEDS: DOCUSATE SODIUM 100 MG CAPSULE (FP) PO SCH ×3 (06:29→22:58)
[2019-05-20] MEDS: chlordiazePOXIDE HCL 10 MG CAPSULE PO SCH ×3 (06:29→22:58)
[2019-05-20] MEDS: PANTOPRAZOLE 20 MG TABLET (FP) PO SCH (10:05)
[2019-05-20] MEDS: PRENATAL VITAMINS W/ FOLIC ACID TABLET (FP) PO SCH (10:05)
[2019-05-20] MEDS: APIXABAN 5 MG TABLET PO SCH ×2 (10:05→22:58)
[2019-05-20] MEDS: amLODIPine BESYLATE 5 MG TABLET (FP) PO SCH (10:05)
[2019-05-20] MEDS: hydrOXYzine PAMOATE 25 MG CAPSULE (FP) PO PRN ×3 (10:05→23:01)
--- NOTE | 2019-05-20 11:42 | PN ---
S CIWA - CIWA Score Nausea/Vomitin-No Nausea/No Vomiting Muscle Tremors: 3 Anxiety: 2 Agitation: 2 Paroxysmal Sweats: 2 Orientation: 0-Oriented Tacttile Disturbances: 0-None Auditory Disturbances: 0-None Visual Disturbances: 0-None Headache: 0-None Present CIWA-Ar Total Score: 9 BHS Progress Note (SOAP) Subjective: anxiety agitation sweats Objective: 05/20/19 11:41 Vital Signs Temperature 98.1 F 05/20/19 09:26 Pulse Rate 111 H 05/20/19 09:26 Respiratory Rate 18 05/20/19 09:26 Blood Pressure 130/93 05/20/19 09:26 O2 Sat by Pulse Oximetry (%) Laboratory Tests 05/17/19 13:39 POC Urine HCG, Qual Negative aaox3 ambulating no acute distress Assessment: 05/20/19 11:41 withdrawals Plan: continue detox
[2019-05-20] MEDS ORDERED: SUVOREXANT 10 MG TABLET PO PRN (22:00)
[2019-05-20] MEDS: THIAMINE HCL 100 MG TABLET (FP) PO SCH (22:58)
[2019-05-21] MEDS ORDERED: chlordiazePOXIDE HCL 10 MG CAPSULE PO ONE (05:00)
[2019-05-21] MEDS: METHOCARBAMOL 500 MG TABLET PO PRN (05:53)
[2019-05-21] MEDS: DOCUSATE SODIUM 100 MG CAPSULE (FP) PO SCH (05:53)
[2019-05-21] MEDS ORDERED: COLLOIDAL OATMEAL 1 BAR EACH TP ONE (08:58)
[2019-05-21 09:36] VITALS: BP 117/89; PULSE 93; TEMP 97.3
[2019-05-21] MEDS: PRENATAL VITAMINS W/ FOLIC ACID TABLET (FP) PO SCH (09:50)
[2019-05-21] MEDS: PANTOPRAZOLE 20 MG TABLET (FP) PO SCH (09:50)
[2019-05-21] MEDS: APIXABAN 5 MG TABLET PO SCH (09:50)
[2019-05-21] MEDS: amLODIPine BESYLATE 5 MG TABLET (FP) PO SCH (09:50)
--- NOTE | 2019-05-21 12:04 | DS ---
[facility] Detox Discharge Summary Admission Date: 05/17/19 Discharge Date: 05/21/19 - History Present History: Alcohol Dependence - Physical Exam Results Vital Signs: Vital Signs Temperature 97.3 F L 05/21/19 09:36 Pulse Rate 93 H 05/21/19 09:36 Respiratory Rate 17 05/21/19 09:36 Blood Pressure 117/89 05/21/19 09:36 O2 Sat by Pulse Oximetry (%) Pertinent Admission Physical Exam Findings: pt arrived in withdrawals Vital Signs Temperature 97.3 F L 05/21/19 09:36 Pulse Rate 93 H 05/21/19 09:36 Respiratory Rate 17 05/21/19 09:36 Blood Pressure 117/89 05/21/19 09:36 O2 Sat by Pulse Oximetry (%) aaox3 ambulating no acute distress - Treatment Hospital Course: Detox Protocol Followed, Detoxed Safely, Responded well, Discharged Condition Good, Rehab Referral Accepted Patient has Accepted a Rehab Referral to: declined rehab - Medication Discharge Medications: Ambulatory Orders Amlodipine Besylate [Norvasc -] 5 mg PO DAILY #30 tablet 05/06/19 Apixaban [Eliquis -] 5 mg PO BID #30 tablet 05/06/19 Melatonin 5 mg PO HS PRN #30 tab 05/06/19 - Diagnosis (1) Alcohol dependence with uncomplicated withdrawal Current Visit: Yes Status: Chronic (2) Cannabis dependence Current Visit: Yes Status: Chronic (3) Cocaine dependence Current Visit: Yes Status: Chronic Qualifiers: Substance use status: uncomplicated Qualified Code(s): F14.20 - Cocaine dependence, uncomplicated (4) GERD (gastroesophageal reflux disease) Current Visit: Yes Status: Chronic Qualifiers: Esophagitis presence: without esophagitis Qualified Code(s): K21.9 - Gastro -esophageal reflux disease without esophagitis (5) History of abnormal electrocardiogram Current Visit: No Status: Chronic (6) Murmur, cardiac Current Visit: No Status: Chronic (7) History of deep venous thrombosis Current Visit: No Status: Resolved (8) Hypertension Current Visit: Yes Status: Chronic Qualifiers: Hypertension type: essential hypertension Qualified Code(s): I10 - Essential (primary) hypertension (9) Mobitz (type) I (Wenckebach's) atrioventricular block Current Visit: No Status: Acute (10) PSVT (paroxysmal supraventricular tachycardia) Current Visit: No Status: Acute (11) Prolonged QT interval Current Visit: No Status: Acute (12) Substance induced mood disorder Current Visit: No Status: Acute (13) Substance-induced anxiety disorder Current Visit: No Status: Acute (14) Substance-induced sleep disorder Current Visit: No Status: Acute (15) Anxiety and depression Current Visit: No Status: Chronic (16) PCP abuse Current Visit: No Status: Chronic (17) Substance induced mood disorder Current Visit: No Status: Chronic (18) Depressed affect Current Visit: No Status: Suspected (19) Drug-induced mood disorder Current Visit: No Status: Suspected (20) Old cerebrovascular accident (CVA) without late effect Current Visit: No Status: Inactive - AMA Did Patient Leave Against Medical Advice: No
== END 2019-05-21 09:58 | disposition home or self-care (01) | DRG 774 ==
LOC: YASAS 12:38 → Y6N 16:51
PROVIDERS: ADMIT Allergy & Immunology; ATTEND Allergy & Immunology
PROC: HZ2ZZZZ Detoxification Services for Substance Abuse Treatment (ICD-10-PCS; principal; 2019-05-17)
DX: F10.230 Alcohol dependence with withdrawal, uncomplicated (principal); F14.20 Cocaine dependence, uncomplicated; F12.20 Cannabis dependence, uncomplicated; F16.10 Hallucinogen abuse, uncomplicated; F19.24 Other psychoactive substance dependence with psychoactive substance-induced mood disorder; F19.282 Other psychoactive substance dependence with psychoactive substance-induced sleep disorder; F41.8 Other specified anxiety disorders; F32.9 Major depressive disorder, single episode, unspecified; I10 Essential (primary) hypertension; I47.1 Supraventricular tachycardia; I44.1 Atrioventricular block, second degree; K21.9 Gastro-esophageal reflux disease without esophagitis; K64.9 Unspecified hemorrhoids; H55.00 Unspecified nystagmus; D64.9 Anemia, unspecified; R45.89 Other symptoms and signs involving emotional state; R94.31 Abnormal electrocardiogram [ECG] [EKG]; Z86.718 Personal history of other venous thrombosis and embolism; Z86.73 Personal history of transient ischemic attack (TIA), and cerebral infarction without residual deficits; Z91.048 Other nonmedicinal substance allergy status
CPT/HCPCS: 81025; Q0162

== ENCOUNTER 2019-05-25 15:25 | Inpatient (IN) | payer OTHER ==
[2019-05-25 18:04] VITALS: BMI 22.4
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
[2019-05-25] MEDS ORDERED: MELATONIN 5 MG TABLETS PO PRN ×2 (19:56→19:57)
[2019-05-25] MEDS ORDERED: MAGNESIUM HYDROX 2400MG/30ML ORAL SUSPENSION 30 ML CUP PO PRN (19:57)
[2019-05-25] MEDS ORDERED: hydrOXYzine PAMOATE 25 MG CAPSULE (FP) PO PRN (19:57)
[2019-05-25] MEDS ORDERED: ONDANSETRON *ODT* 4 MG TABLET SL PRN (19:57)
[2019-05-25] MEDS ORDERED: MAG HYDROX/AL HYDROX/SIMETH 30 ML UNIT-DOSE CUP PO PRN (19:57)
[2019-05-25] MEDS ORDERED: MENTHOL/PHENOL 1 EACH UD MM PRN (19:57)
[2019-05-25] MEDS ORDERED: BISMUTH SUBSALICYLATE 524 MG/30 ML UD PO PRN (19:57)
[2019-05-25] MEDS ORDERED: ACETAMINOPHEN 325 MG TABLET (FP) PO PRN (19:57)
[2019-05-25] MEDS ORDERED: IBUPROFEN 400 MG TABLET (FP) PO PRN (19:57)
[2019-05-25] MEDS ORDERED: MAGNESIUM CITRATE 300 ML BOTTLE PO PRN (19:57)
[2019-05-25] MEDS ORDERED: chlordiazePOXIDE HCL 25 MG CAPSULE PO PRN (19:57)
[2019-05-25] MEDS: amLODIPine BESYLATE 5 MG TABLET (FP) PO SCH (22:45)
[2019-05-25] MEDS: THIAMINE HCL 100 MG TABLET (FP) PO SCH (22:46)
[2019-05-25] MEDS: chlordiazePOXIDE HCL 25 MG CAPSULE PO SCH (22:46)
[2019-05-25] MEDS: APIXABAN 5 MG TABLET PO SCH (23:01)
[2019-05-26] MEDS: chlordiazePOXIDE HCL 25 MG CAPSULE PO SCH ×3 (05:49→22:40)
[2019-05-26] MEDS: ACETAMINOPHEN 325 MG TABLET (FP) PO PRN (05:50)
[2019-05-26] MEDS ORDERED: chlordiazePOXIDE HCL 10 MG CAPSULE PO PRN (08:36)
[2019-05-26] MEDS ORDERED: COLLOIDAL OATMEAL 1 BAR EACH TP PRN (08:46)
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
[2019-05-26 09:52] LABS: HEMATOCRIT 31.8 % (32.4-45.2); HEMOGLOBIN 10.3 GM/dL (10.7-15.3); MCH 32.4 pg (25.7-33.7); MCHC 32.4 g/dl (32.0-36.0); MEAN PLT VOLUME 8.2 fl (7.5-11.1); PLATELET COUNT 299 K/MM3 (134-434); RBC 3.18 M/mm3 (3.60-5.2)
[2019-05-26 10:13] LABS: ALBUMIN 3.2 g/dl (3.4-5.0); BILIRUBIN,TOTAL 0.2 mg/dL (0.2-1); BLOOD UREA NITROGEN 17.8 mg/dL (7-18); CALCIUM 8.5 mg/dL (8.5-10.1); CREATININE 0.7 mg/dL (0.55-1.3); TOT PROT 7.5 g/dl (6.4-8.2)
[2019-05-26] MEDS: amLODIPine BESYLATE 5 MG TABLET (FP) PO SCH (11:02)
[2019-05-26] MEDS: hydrOXYzine PAMOATE 50 MG CAPSULE (FP) PO PRN ×2 (11:02→22:43)
[2019-05-26] MEDS: METHOCARBAMOL 500 MG TABLET PO PRN ×2 (11:02→22:43)
[2019-05-26] MEDS: PRENATAL VITAMINS W/ FOLIC ACID TABLET (FP) PO SCH (11:02)
[2019-05-26] MEDS: APIXABAN 5 MG TABLET PO SCH ×2 (11:02→22:39)
--- NOTE | 2019-05-26 11:07 | EKG ---
Test Reason : Blood Pressure : / mmHG Vent. Rate : 092 BPM Atrial Rate : 092 BPM P-R Int : 190 ms QRS Dur : 088 ms QT Int : 410 ms P-R-T Axes : 072 080 065 degrees QTc Int : 507 ms NORMAL SINUS RHYTHM SEPTAL INFARCT (CITED ON OR BEFORE 27-APR-2019) PROLONGED QT ABNORMAL ECG Confirmed by Maurice Phillips MD ([id number]) on 05/26/2019 11:06:58 AM Referred By: Alban Bledsoe Confirmed By:Maurice Phillips MD
--- NOTE | 2019-05-26 12:21 | PN ---
S CIWA - CIWA Score Nausea/Vomitin-No Nausea/No Vomiting Muscle Tremors: 3 Anxiety: 2 Agitation: 2 Paroxysmal Sweats: 2 Orientation: 0-Oriented Tacttile Disturbances: 0-None Auditory Disturbances: 0-None Visual Disturbances: 0-None Headache: 0-None Present CIWA-Ar Total Score: 9 BHS Progress Note (SOAP) Subjective: sweats irritable interrupted sleep Objective: 05/26/19 12:20 Vital Signs Temperature 98.2 F 05/26/19 09:50 Pulse Rate 83 05/26/19 09:50 Respiratory Rate 18 05/26/19 09:50 Blood Pressure 113/84 05/26/19 09:50 O2 Sat by Pulse Oximetry (%) Laboratory Tests 05/26/19 05/26/19 05/26/19 08:15 08:15 08:15 WBC 4.0 RBC 3.18 L Hgb 10.3 L Hct 31.8 L MCV 100.0 H MCH 32.4 MCHC 32.4 RDW 14.0 Plt Count 299 MPV 8.2 Sodium 139 Potassium 4.0 Chloride 105 Carbon Dioxide 27 Anion Gap 7 L BUN 17.8 Creatinine 0.7 Est GFR (CKD-EPI)AfAm 118.74 Est GFR (CKD-EPI)NonAf 102.45 Random Glucose 77 Calcium 8.5 Total Bilirubin 0.2 AST 19 ALT 21 Alkaline Phosphatase 111 Total Protein 7.5 Albumin 3.2 L RPR Titer Nonreactive labs noted aaox3 ambulating no acute distress Assessment: 05/26/19 12:20 mild withdrawals Plan: continue detox increase fluids ensure bid
[2019-05-26] MEDS: THIAMINE HCL 100 MG TABLET (FP) PO SCH (22:40)
[2019-05-26] MEDS: SUVOREXANT 10 MG TABLET PO PRN (22:42)
[2019-05-27] MEDS ORDERED: chlordiazePOXIDE HCL 25 MG CAPSULE PO SCH (05:00)
[2019-05-27] MEDS: ACETAMINOPHEN 325 MG TABLET (FP) PO PRN ×2 (05:45→22:17)
[2019-05-27] MEDS: METHOCARBAMOL 500 MG TABLET PO PRN ×2 (05:46→22:16)
[2019-05-27] MEDS: chlordiazePOXIDE HCL 25 MG CAPSULE PO SCH ×2 (05:46→12:27)
[2019-05-27] MEDS: amLODIPine BESYLATE 5 MG TABLET (FP) PO SCH (10:19)
[2019-05-27] MEDS: APIXABAN 5 MG TABLET PO SCH ×2 (10:19→22:16)
[2019-05-27] MEDS: PRENATAL VITAMINS W/ FOLIC ACID TABLET (FP) PO SCH (10:19)
[2019-05-27] MEDS: hydrOXYzine PAMOATE 50 MG CAPSULE (FP) PO PRN ×2 (10:20→22:16)
--- NOTE | 2019-05-27 10:20 | PN ---
S CIWA - CIWA Score Nausea/Vomitin-No Nausea/No Vomiting Muscle Tremors: 2 Anxiety: 1-Mildly Anxious Agitation: 1-Slight > Activity Paroxysmal Sweats: 2 Orientation: 0-Oriented Tacttile Disturbances: 0-None Auditory Disturbances: 0-None Visual Disturbances: 0-None Headache: 0-None Present CIWA-Ar Total Score: 6 BHS Progress Note (SOAP) Subjective: irritable agitation interrupted sleep Objective: 05/27/19 10:19 Vital Signs Temperature 98.8 F 05/27/19 09:31 Pulse Rate 97 H 05/27/19 09:31 Respiratory Rate 18 05/27/19 09:31 Blood Pressure 135/87 05/27/19 09:31 O2 Sat by Pulse Oximetry (%) Laboratory Tests 05/26/19 05/26/19 05/26/19 08:15 08:15 08:15 WBC 4.0 RBC 3.18 L Hgb 10.3 L Hct 31.8 L MCV 100.0 H MCH 32.4 MCHC 32.4 RDW 14.0 Plt Count 299 MPV 8.2 Sodium 139 Potassium 4.0 Chloride 105 Carbon Dioxide 27 Anion Gap 7 L BUN 17.8 Creatinine 0.7 Est GFR (CKD-EPI)AfAm 118.74 Est GFR (CKD-EPI)NonAf 102.45 Random Glucose 77 Calcium 8.5 Total Bilirubin 0.2 AST 19 ALT 21 Alkaline Phosphatase 111 Total Protein 7.5 Albumin 3.2 L RPR Titer Nonreactive aaox3 ambulating no acute distress Assessment: 05/27/19 10:27 withdrawals Plan: continue detox increase fluids
[2019-05-27] MEDS: SUVOREXANT 10 MG TABLET PO PRN (22:15)
[2019-05-27] MEDS: THIAMINE HCL 100 MG TABLET (FP) PO SCH (22:16)
[2019-05-28] MEDS ORDERED: chlordiazePOXIDE HCL 10 MG CAPSULE PO PRN
[2019-05-28] MEDS ORDERED: chlordiazePOXIDE HCL 10 MG CAPSULE PO SCH (05:00)
[2019-05-28] MEDS: hydrOXYzine PAMOATE 50 MG CAPSULE (FP) PO PRN ×2 (05:45→22:05)
[2019-05-28] MEDS: METHOCARBAMOL 500 MG TABLET PO PRN ×2 (05:45→22:05)
[2019-05-28] MEDS: chlordiazePOXIDE 5 MG CAPSULE PO SCH ×3 (05:46→22:07)
[2019-05-28] MEDS: amLODIPine BESYLATE 5 MG TABLET (FP) PO SCH (09:51)
[2019-05-28] MEDS: APIXABAN 5 MG TABLET PO SCH ×2 (09:51→22:05)
[2019-05-28] MEDS: PRENATAL VITAMINS W/ FOLIC ACID TABLET (FP) PO SCH (09:51)
--- NOTE | 2019-05-28 10:31 | PN ---
S CIWA - CIWA Score Nausea/Vomitin-No Nausea/No Vomiting Muscle Tremors: 2 Anxiety: 1-Mildly Anxious Agitation: 2 Paroxysmal Sweats: 1-Minimal Palms Moist Orientation: 0-Oriented Tacttile Disturbances: 0-None Auditory Disturbances: 0-None Visual Disturbances: 0-None Headache: 0-None Present CIWA-Ar Total Score: 6 BHS Progress Note (SOAP) Subjective: sweats agitation body aches Objective: 05/28/19 10:30 Vital Signs Temperature 98.1 F 05/28/19 07:38 Pulse Rate 90 05/28/19 07:38 Respiratory Rate 16 05/28/19 07:38 Blood Pressure 107/77 05/28/19 07:38 O2 Sat by Pulse Oximetry (%) Laboratory Tests 05/26/19 05/26/19 05/26/19 08:15 08:15 08:15 WBC 4.0 RBC 3.18 L Hgb 10.3 L Hct 31.8 L MCV 100.0 H MCH 32.4 MCHC 32.4 RDW 14.0 Plt Count 299 MPV 8.2 Sodium 139 Potassium 4.0 Chloride 105 Carbon Dioxide 27 Anion Gap 7 L BUN 17.8 Creatinine 0.7 Est GFR (CKD-EPI)AfAm 118.74 Est GFR (CKD-EPI)NonAf 102.45 Random Glucose 77 Calcium 8.5 Total Bilirubin 0.2 AST 19 ALT 21 Alkaline Phosphatase 111 Total Protein 7.5 Albumin 3.2 L RPR Titer Nonreactive labs noted aaox3 ambulating no acute distress Assessment: 05/28/19 10:31 mild withdrawals Plan: continue detox increase fluids
[2019-05-28] MEDS: SUVOREXANT 10 MG TABLET PO PRN (22:06)
[2019-05-28] MEDS: THIAMINE HCL 100 MG TABLET (FP) PO SCH (22:07)
[2019-05-29] MEDS ORDERED: chlordiazePOXIDE HCL 10 MG CAPSULE PO PRN
[2019-05-29] MEDS ORDERED: chlordiazePOXIDE HCL 10 MG CAPSULE PO SCH (05:00)
[2019-05-29] MEDS: chlordiazePOXIDE HCL 10 MG CAPSULE PO SCH ×2 (05:51→12:52)
[2019-05-29] MEDS: hydrOXYzine PAMOATE 50 MG CAPSULE (FP) PO PRN ×2 (05:55→17:34)
[2019-05-29] MEDS: METHOCARBAMOL 500 MG TABLET PO PRN ×2 (05:55→22:07)
[2019-05-29] MEDS: APIXABAN 5 MG TABLET PO SCH ×2 (10:05→22:07)
[2019-05-29] MEDS: amLODIPine BESYLATE 5 MG TABLET (FP) PO SCH (10:05)
[2019-05-29] MEDS: PRENATAL VITAMINS W/ FOLIC ACID TABLET (FP) PO SCH (10:05)
--- NOTE | 2019-05-29 11:54 | PN ---
S CIWA - CIWA Score Nausea/Vomitin-No Nausea/No Vomiting Muscle Tremors: 1-None Visible, but [place] Anxiety: 1-Mildly Anxious Agitation: 1-Slight > Activity Paroxysmal Sweats: No Perspiration Orientation: 0-Oriented Tacttile Disturbances: 0-None Auditory Disturbances: 0-None Visual Disturbances: 0-None Headache: 0-None Present CIWA-Ar Total Score: 3 BHS Progress Note (SOAP) Subjective: restless feeling better. Objective: 05/29/19 11:53 Vital Signs Temperature 98.1 F 05/29/19 09:39 Pulse Rate 95 H 05/29/19 09:39 Respiratory Rate 20 05/29/19 09:39 Blood Pressure 123/85 05/29/19 09:39 O2 Sat by Pulse Oximetry (%) aaox3 ambulating no acute distress Assessment: 05/29/19 11:54 mild withdrawals Plan: continue detox d/c in am
[2019-05-29] MEDS: SUVOREXANT 10 MG TABLET PO PRN (21:55)
[2019-05-29] MEDS: THIAMINE HCL 100 MG TABLET (FP) PO SCH (22:07)
[2019-05-30] MEDS ORDERED: chlordiazePOXIDE HCL 10 MG CAPSULE PO ONE ×2 (05:00)
[2019-05-30] MEDS: hydrOXYzine PAMOATE 50 MG CAPSULE (FP) PO PRN ×3 (05:33→22:20)
[2019-05-30] MEDS: METHOCARBAMOL 500 MG TABLET PO PRN ×2 (05:33→22:19)
[2019-05-30] MEDS: PRENATAL VITAMINS W/ FOLIC ACID TABLET (FP) PO SCH (10:26)
[2019-05-30] MEDS: APIXABAN 5 MG TABLET PO SCH ×2 (10:26→22:19)
[2019-05-30] MEDS: amLODIPine BESYLATE 5 MG TABLET (FP) PO SCH (10:26)
--- NOTE | 2019-05-30 11:38 | PN ---
S CIWA - CIWA Score Nausea/Vomitin-No Nausea/No Vomiting Muscle Tremors: None Anxiety: 1-Mildly Anxious Agitation: 0-Normal Activity Paroxysmal Sweats: No Perspiration Orientation: 0-Oriented Tacttile Disturbances: 0-None Auditory Disturbances: 0-None Visual Disturbances: 0-None Headache: 0-None Present CIWA-Ar Total Score: 1 BHS Progress Note (SOAP) Subjective: feeling fine Objective: 05/30/19 11:37 Vital Signs Temperature 99.1 F 05/30/19 09:29 Pulse Rate 93 H 05/30/19 09:29 Respiratory Rate 18 05/30/19 09:29 Blood Pressure 137/88 05/30/19 09:29 O2 Sat by Pulse Oximetry (%) aaox3 ambulating no acute distress Assessment: 05/30/19 11:37 mild to no s/s of withdrawals Plan: d/c in am
[2019-05-30] MEDS: THIAMINE HCL 100 MG TABLET (FP) PO SCH (22:20)
[2019-05-31 06:00] VITALS: TEMP 97.9
[2019-05-31] MEDS: hydrOXYzine PAMOATE 50 MG CAPSULE (FP) PO PRN (06:22)
[2019-05-31] MEDS: METHOCARBAMOL 500 MG TABLET PO PRN (06:23)
[2019-05-31] MEDS: ACETAMINOPHEN 325 MG TABLET (FP) PO PRN (06:23)
[2019-05-31] MEDS: amLODIPine BESYLATE 5 MG TABLET (FP) PO SCH (09:20)
[2019-05-31] MEDS: APIXABAN 5 MG TABLET PO SCH (09:20)
[2019-05-31] MEDS: PRENATAL VITAMINS W/ FOLIC ACID TABLET (FP) PO SCH (09:20)
[2019-05-31 09:44] VITALS: BP 152/94; PULSE 109
--- NOTE | 2019-05-31 14:54 | DS ---
[facility] Detox Discharge Summary Admission Date: 05/25/19 Discharge Date: 05/31/19 - History Present History: Alcohol Dependence, Cannabis Dependence, Cocaine Dependence Additional Comments: Patient completed detox successfully and discharged safely. Patient instructed to follow up with PCP FREDIS for Rx refill and follow up. Patient requesting eRx for eliquis and norvasc, upon further review, she had 30 tablets of each on 05/06 which most likely shows that she has not been following up with her PCP. [employer] will not order any medication as patient needs to follow up with her PCP plus she recently had eRx from another medical provider here at [facility] on . Pertinent Past History: HTN History of DVT CVA GERD Anemia (not on medication) - Physical Exam Results Vital Signs: Vital Signs Temperature 97.9 F 05/31/19 09:43 Pulse Rate 109 H 05/31/19 09:43 Respiratory Rate 20 05/31/19 09:43 Blood Pressure 152/94 05/31/19 09:43 O2 Sat by Pulse Oximetry (%) Pertinent Admission Physical Exam Findings: Withdrawal sxs Laboratory Tests 05/26/19 05/26/19 05/26/19 08:15 08:15 08:15 WBC 4.0 RBC 3.18 L Hgb 10.3 L Hct 31.8 L MCV 100.0 H MCH 32.4 MCHC 32.4 RDW 14.0 Plt Count 299 MPV 8.2 Sodium 139 Potassium 4.0 Chloride 105 Carbon Dioxide 27 Anion Gap 7 L BUN 17.8 Creatinine 0.7 Est GFR (CKD-EPI)AfAm 118.74 Est GFR (CKD-EPI)NonAf 102.45 Random Glucose 77 Calcium 8.5 Total Bilirubin 0.2 AST 19 ALT 21 Alkaline Phosphatase 111 Total Protein 7.5 Albumin 3.2 L RPR Titer Nonreactive Labs reviewed: albumin 3.2 (encourage high protein intake), mild anemia noted ( most likely from alcoholism, follow up with PCP for management) - Treatment Hospital Course: Detox Protocol Followed, Detoxed Safely, Responded well, Discharged Condition Good - Medication Discharge Medications: Ambulatory Orders Amlodipine Besylate [Norvasc -] 5 mg PO DAILY #30 tablet 05/06/19 Apixaban [Eliquis -] 5 mg PO BID #30 tablet 05/06/19 Melatonin 5 mg PO HS PRN #30 tab 05/06/19 - Diagnosis (1) Hypoalbuminemia Status: Acute (2) Alcohol dependence with uncomplicated withdrawal Status: Acute (3) Cannabis dependence Status: Acute (4) Cocaine dependence Status: Chronic Qualifiers: Substance use status: uncomplicated Qualified Code(s): F14.20 - Cocaine dependence, uncomplicated (5) Anemia Status: Chronic (6) GERD (gastroesophageal reflux disease) Status: Chronic Qualifiers: Esophagitis presence: without esophagitis Qualified Code(s): K21.9 - Gastro -esophageal reflux disease without esophagitis (7) History of deep venous thrombosis Status: Chronic (8) Hypertension Status: Chronic Qualifiers: Hypertension type: essential hypertension Qualified Code(s): I10 - Essential (primary) hypertension (9) Old cerebrovascular accident (CVA) without late effect Status: Resolved - AMA Did Patient Leave Against Medical Advice: No (Instructed to follow up with PCP FREDIS )
== END 2019-05-31 09:30 | disposition home or self-care (01) | DRG 774 ==
LOC: YASAS 15:25 → Y3W 21:24 → Y6N 21:50
PROVIDERS: ADMIT Allergy & Immunology; ATTEND Allergy & Immunology
PROC: HZ2ZZZZ Detoxification Services for Substance Abuse Treatment (ICD-10-PCS; principal; 2019-05-25)
DX: F10.230 Alcohol dependence with withdrawal, uncomplicated (principal); F10.220 Alcohol dependence with intoxication, uncomplicated; F14.20 Cocaine dependence, uncomplicated; F12.20 Cannabis dependence, uncomplicated; F17.210 Nicotine dependence, cigarettes, uncomplicated; F19.280 Other psychoactive substance dependence with psychoactive substance-induced anxiety disorder; F19.282 Other psychoactive substance dependence with psychoactive substance-induced sleep disorder; I10 Essential (primary) hypertension; I44.0 Atrioventricular block, first degree; D64.9 Anemia, unspecified; K21.9 Gastro-esophageal reflux disease without esophagitis; R77.0 Abnormality of albumin; E78.5 Hyperlipidemia, unspecified; R01.1 Cardiac murmur, unspecified; J45.909 Unspecified asthma, uncomplicated; K76.0 Fatty (change of) liver, not elsewhere classified; K64.8 Other hemorrhoids; Z86.718 Personal history of other venous thrombosis and embolism; Z86.73 Personal history of transient ischemic attack (TIA), and cerebral infarction without residual deficits; Z86.19 Personal history of other infectious and parasitic diseases; Z91.419 Personal history of unspecified adult abuse; Z91.038 Other insect allergy status; Z91.5 Personal history of self-harm
CPT/HCPCS: 36415; 80053; 85027; 86593; 93005; 93010

== ENCOUNTER 2019-06-02 13:23 | Emergency (ER) | payer SELFPAY ==
[2019-06-02 13:40] VITALS: BMI 21.0
--- NOTE | 2019-06-02 13:42 | PDOC ---
History of Present Illness - General Chief Complaint: Nausea Stated Complaint: ABDOMINAL PAIN - History of Present Illness Initial Comments: The pt is a 48F w/ a history of DVT (eliquis), splenic infarcts, fatty liver disease, and duodenal tubular adenoma, HTN, colitis/c-diff, EtOH abuse, and THC who presents for evaluation of approximately 5 days of generalized/lower abdominal pain with associated nausea and NBNB vomiting. The pain in achy, waxing/waning, and not exacerbated or alleviated by anything she can identify. She denies fevers, chest pain, trouble breathing, vision changes, dysuria, hematuria, diarrhea, or blood in her stool. She drank 1.5 beers today and endorses THC use today. She has not taken her Eliquis for 2 days. 06/02/19 14:11 Past History - Past Medical History Allergies/Adverse Reactions: Allergies Allergy/AdvReac Type Severity Reaction Status Date / Time beeswax Allergy Severe Difficulty Verified 06/02/19 13:36 Breathing coconut oil Allergy Severe Itching Verified 06/02/19 13:36 No Known Drug Allergies Allergy Verified 06/02/19 13:36 Home Medications: Ambulatory Orders Amlodipine Besylate [Norvasc -] 5 mg PO DAILY #30 tablet 05/06/19 Apixaban [Eliquis -] 5 mg PO BID #30 tablet 05/06/19 Melatonin 5 mg PO HS PRN #30 tab 05/06/19 Ondansetron [Zofran *Odt*] 4 mg GT TID PRN #20 tab.rapdis 06/02/19 Anemia: Yes (Not on med) Asthma: No Cancer: No (DUODENAL TUBULAR ADENOMA) Cardiac Disorders: No CVA: Yes (2002 RESOLVED WITHOUT ANY COMPLICATIONS) COPD: No CHF: No DVT: No Dementia: No Diabetes: No GI Disorders: No Disorders: No HTN: Yes Hypercholesterolemia: No Kidney Stones: No Liver Disease: Yes (FATTY LIVER) Seizures: No Thyroid Disease: No - Surgical History Abdominal Surgery: Yes (hernia repair) Appendectomy: Yes (Laparascopic Surgery in September 2018) Cardiac Surgery: No Cholecystectomy: No Lung Surgery: No Neurologic Surgery: No Orthopedic Surgery: Yes (right knee, 07/29/2015 [facility]) - Reproductive History PID: No - Immunization History Immunization Up to Date: Yes - Psycho Social/Smoking Cessation Hx Smoking Status: No Smoking History: Never smoked Have you smoked in the past 12 months: No Number of Cigarettes Smoked Daily: 10 Cigars Per Day: 0 'Breaking Loose' booklet given: 05/25/18 Hx Alcohol Use: Yes Drug/Substance Use Hx: Yes (daily marijuana) Substance Use Type: Alcohol, Cocaine, Marijuana Hx Substance Use Treatment: Yes (Multiple admissions for detox and rehab. Last was 05/17/19-05/21/19) Review of Systems - Review of Systems Able to Perform ROS?: Yes Comments:: GENERAL/CONSTITUTIONAL: +Chills, denies fevers HEAD, EYES, EARS, NOSE AND THROAT: No change in vision. No change in hearing. No sore throat CARDIOVASCULAR: No chest pain or shortness of breath RESPIRATORY: Denies cough, hemoptysis GASTROINTESTINAL: + nausea, vomiting; denies diarrhea or constipation GENITOURINARY: No dysuria, frequency, or change in urination MUSCULOSKELETAL: No joint or muscle swelling or pain. No neck or back pain SKIN: No rash NEUROLOGIC: No headache, vertigo, loss of consciousness, or change in strength/ sensation ENDOCRINE: No increased thirst. No abnormal weight change HEMATOLOGIC/LYMPHATIC: +hx of DVT (eliquis) ALLERGIC/IMMUNOLOGIC: No hives or skin allergy 06/02/19 13:42 Is the patient limited Nepali proficient: No *Physical Exam - Vital Signs Last Vital Signs Temp Pulse Resp BP Pulse Ox 97.2 F L 78 18 94/66 99 06/02/19 13:25 06/02/19 13:25 06/02/19 13:25 06/02/19 13:25 06/02/19 13:25 - Physical Exam Comments: GENERAL: Awake, alert, and oriented to person/place/time, in no acute distress HEAD: No signs of trauma, normocephalic, atraumatic EYES: PERRLA, EOMI, sclera anicteric, conjunctiva clear ENT: Hearing grossly normal, nares patent, oropharynx clear without exudates. Moist mucosa LUNGS: No distress, speaks in full sentences, clear to auscultation bilaterally HEART: Regular rate and rhythm, normal S1 and S2, no murmurs appreciated, peripheral pulses normal and equal bilaterally ABDOMEN: Soft, protuberant, mild diffuse TTP w/o rebound or guarding, ventral incisional hernia (partially reducible), normoactive bowel sounds. EXTREMITIES: Normal inspection, Normal range of motion, no edema. No clubbing or cyanosis NEUROLOGICAL: Cranial nerves II through XII grossly intact. Normal speech, no focal sensorimotor deficits SKIN: Warm, Dry 06/02/19 13:42 ED Treatment Course - LABORATORY CBC & Chemistry Diagram: 06/02/19 14:44 06/02/19 14:44 - RADIOLOGY Radiograph Interpretation: Abdomen and pelvis CT with contrast No evidence of pneumoperitoneum, abscess, free intraperitoneal fluid or bowel obstruction. In comparison to prior CT exam of 04/27/2019 interval resolution of mild fluid- filled colonic distention is noted. On the current exam there is mild to moderate colonic fecal retention. The remainder of the exam appears unchanged. The appendix is not definitely visualized however there are no indirect CT signs of acute appendicitis. No evidence of acute diverticulitis or obvious acute colitis. There is no gross noncontrast small bowel pathology. Note is again made of a small curvilinear calcifications a suture line along the pericecal region inferiorly. Cholelithiasis. No CT evidence of acute cholecystitis. There is no definite biliary tract dilatation. Possible diffuse hepatic steatosis. If clinically indicated correlate with sonography. Small to moderate hiatal hernia. Small umbilical hernia containing fat only. Small bilateral inguinal hernias containing fat only. The spleen, pancreas, adrenal glands and kidneys demonstrate no discrete abnormality. There is no aortic aneurysm. No definite lymphadenopathy is noted. There is no obvious CT evidence of pelvic pathology. Impression: No definite CT findings of acute pathology are noted as discussed above. 06/02/19 18:09 Medical Decision Making - Medical Decision Making The pt is a 48F w/ a history of DVT (eliquis), HTN, colitis/c-diff, EtOH abuse, and THC who presents for evaluation of approximately 5 days of generalized/ lower abdominal pain with associated nausea and NBNB vomiting. Ddx: gastritis, THC emesis, viral syndrome, pancreatitis, biliary disease, consider UTI, not likely SBO ED Course Labs sent ECG CT A&P IVF, Zofran, Ofirmev for symptomatic relief 06/02/19 14:20 CT A&P w/ multiple hernias noted w/o acute pathology No leukocytosis Anemia noted, no indication to transfuse at this time Lytes wnl No GEN LFTs wnl Lipase wnl Pt w/ persistent nausea Will give Zofran, Ativan, and additional IVF 06/02/19 18:10 Pt tolerating PO at this time Rx for Zofran sent to pt's pharmacy Plan for D/C w/ PCP f/u Discharge instructions and return precautions given Patient in agreement and verbalized understanding Dispo: Home 06/02/19 18:57 Discharge - Discharge Information Problems reviewed: Yes Clinical Impression/Diagnosis: Cannabis dependence, History of deep venous thrombosis Abdominal pain Qualifiers: Abdominal location: generalized Qualified Code(s): R10.84 - Generalized abdominal pain Nausea and vomiting Qualifiers: Vomiting type: unspecified Vomiting Intractability: non-intractable Qualified Code(s): R11.2 - Nausea with vomiting, unspecified Condition: Stable Disposition: HOME - Admission No - Additional Discharge Information Prescriptions: Ondansetron [Zofran *Odt*] 4 mg GT TID PRN #20 tab.rapdis PRN Reason: Nausea And/Or Vomiting - Follow up/Referral Referrals: [facility] [place] [Provider Group] - Patient Discharge Instructions Patient Printed Discharge Instructions: DI for Vomiting -- Adult Additional Instructions: You were seen in the Emergency Department for evaluation of nausea and vomiting. Your labs were unremarkable and your CT was negative for acute findings. A prescription was sent to your pharmacy for Zofran, take as directed. Return to the Emergency Department if you develop fevers/chills, chest pain, inability to tolerate liquids, worsening symptoms, or any new/ concerning symptoms. - Post Discharge Activity Work/Back to School Note: Back to Work
[2019-06-02] MEDS ORDERED: ONDANSETRON 4 MG/2 ML VIAL IVPUSH ONE ×2 (14:17→17:50)
[2019-06-02] MEDS ORDERED: ACETAMINOPHEN 1000 MG/100 ML VIAL (NON FORMULARY) IVPB ONE (14:17)
[2019-06-02] MEDS ORDERED: SODIUM CHLORIDE 0.9% 500 ML INFUS.BAG IV ONE ×2 (14:17→17:50)
[2019-06-02] MEDS ORDERED: ACETAMINOPHEN INJECTION 100 ML IVPB ONE (14:55)
[2019-06-02] MEDS ORDERED: ONDANSETRON 4 MG/2 ML VIAL ONE ×2 (14:56→18:09)
[2019-06-02 15:03] LABS: BASO % 0.6 % (0-2.0); EOS % 1.3 % (0-4.5); HEMATOCRIT 30.1 % (32.4-45.2); HEMOGLOBIN 9.9 GM/dL (10.7-15.3); LYMPH % 22.5 % (8-40); MCHC 32.9 g/dl (32.0-36.0); MEAN CELL VOLUME 100.4 fl (80-96); MEAN PLT VOLUME 8.1 fl (7.5-11.1); MONO % 5.3 % (3.8-10.2); NEUT % 70.3 % (42.8-82.8); PLATELET COUNT 276 K/MM3 (134-434); RDW 13.8 % (11.6-15.6); WHITE BLOOD COUNT 8.7 K/mm3 (4.0-10.0)
--- NOTE | 2019-06-02 15:26 | EKG ---
Test Reason : Blood Pressure : / mmHG Vent. Rate : 078 BPM Atrial Rate : 078 BPM P-R Int : 184 ms QRS Dur : 086 ms QT Int : 432 ms P-R-T Axes : 003 078 053 degrees QTc Int : 492 ms NORMAL SINUS RHYTHM PROLONGED QT ABNORMAL ECG WHEN COMPARED WITH ECG OF 25-MAY-2019 22:03, NO SIGNIFICANT CHANGE WAS FOUND Confirmed by MD Madrid Daniel ([id number]) on 06/02/2019 3:25:43 PM Referred By: Confirmed By:Suhail Madrid MD
[2019-06-02 15:36] LABS: INR 1.08 (0.83-1.09); PROTHROMBIN TIME (PATIENT) 12.8 SEC (9.7-13.0)
[2019-06-02 15:39] LABS: ACTIVATED PTT 41.4 SECONDS (25.2-36.5)
[2019-06-02 15:42] LABS: ALBUMIN 3.5 g/dl (3.4-5.0); BILIRUBIN,TOTAL 0.2 mg/dL (0.2-1); BLOOD UREA NITROGEN 11.8 mg/dL (7-18); CALCIUM 9.1 mg/dL (8.5-10.1); MAGNESIUM 2.4 mg/dL (1.8-2.4); POTASSIUM 4.1 mmol/L (3.5-5.1)
--- NOTE | 2019-06-02 16:08 | PDOC ---
Documentation entered by Elizabeth Sarmiento SCRIBE, acting as scribe for Sung Donovan MD. Sung Donovan MD: This documentation has been prepared by the Torsten schwartz Adrianna, SCRIBE, under my direction and personally reviewed by me in its entirety. I confirm that the documentation accurately reflects all work, treatment, procedures, and medical decision making performed by me. Attending Attestation - Resident Resident Name: AbeefrainSanjay - ED Attending Attestation I have performed the following: I have examined & evaluated the patient, The case was reviewed & discussed with the resident, I agree w/resident's findings & plan, Exceptions are as noted - HPI HPI: The patient is a 48 year old female, with a significant PMH of EtOH abuse, marijuana use, DVT (on Eliquis), splenic infarcts, fatty liver disease, duodenal tubular adenoma, HTN, and colitis/C-diff, who presents to the ED for evaluation of abdominal pain for 5 days. Patient complains of diffuse lower abdominal pain, which she describes as intermittent and achy. She endorses multiple episodes of nausea and NBNB vomit. today). Allergies: Beeswax, coconut oil Surgical History: Abdominal hernia repair, appendectomy, right knee arthroscopy Social History: EtOH abuse (last drank 1.5 beers today). Marijuana use (last used today) - Physicial Exam PE: 06/02/19 19:21 Vitals: Triage Vital signs reviewed General Appearance: No acute distress, well nourished well developed, Head: Atraumatic, Neck: Supple; no Nucal rigidity Chest Wall: Nontender Cardiac: Regular rate and rhythym, no murmurs, no rubs, no gallops, Lungs: Clear to auscultation bilateral, good air movement bilaterally, Abdomen: Soft, non distended, normal bowel sounds, non tender to palpation Extremities: Full range of motion to all extremities, no cyanosis, clubbing, or edema Skin: Warm and dry, no rashes or lesions, no rash, no petechiae Psych: Normal mood, normal affect - Medical Decision Making 06/02/19 19:22 Nausea vomiting epigastric discomfort no lab abnormalities CAT scan with no acute findings Status post Zofran and Reglan patient feels better now tolerating fluids We will discharge with PCP follow-up Findings, the need for follow-up and strict return instructions discussed with patient. Heart Score/ECG Review - ECG Impressions Comment:: 06/02/19 19:22 EKG performed at 1516 demonstrates normal sinus rhythm no ST elevations no T wave inversions Interpreted by me.
[2019-06-02] MEDS ORDERED: METOCLOPRAMIDE HCL INJECTION 10 MG/2 ML VIAL IVPUSH ONE (16:12)
[2019-06-02] MEDS ORDERED: METOCLOPRAMIDE HCL INJECTION 10 MG/2 ML VIAL ONE (16:24)
[2019-06-02] MEDS ORDERED: LORazepam 2 MG/ML SDV VIAL ONE (18:09)
[2019-06-02 18:26] VITALS: BP 100/62; PULSE 73; TEMP 98
== END 2019-06-02 19:28 | disposition home or self-care (01) ==
LOC: JER 13:23
PROC: 3E033GC Introduction of Other Therapeutic Substance into Peripheral Vein, Percutaneous Approach (ICD-10-PCS; principal; 2019-06-02)
PROC: 3E033NZ Introduction of Analgesics, Hypnotics, Sedatives into Peripheral Vein, Percutaneous Approach (ICD-10-PCS; 2019-06-02)
PROC: 3E033NZ Introduction of Analgesics, Hypnotics, Sedatives into Peripheral Vein, Percutaneous Approach (ICD-10-PCS; 2019-06-02)
PROC: 3E033GC Introduction of Other Therapeutic Substance into Peripheral Vein, Percutaneous Approach (ICD-10-PCS; 2019-06-02)
PROC: 3E033GC Introduction of Other Therapeutic Substance into Peripheral Vein, Percutaneous Approach (ICD-10-PCS; 2019-06-02)
DX: F12.20 Cannabis dependence, uncomplicated (principal); R10.30 Lower abdominal pain, unspecified; R11.2 Nausea with vomiting, unspecified; I10 Essential (primary) hypertension; Z86.718 Personal history of other venous thrombosis and embolism; Z79.01 Long term (current) use of anticoagulants; K76.0 Fatty (change of) liver, not elsewhere classified; Z87.19 Personal history of other diseases of the digestive system; Z86.73 Personal history of transient ischemic attack (TIA), and cerebral infarction without residual deficits
CPT/HCPCS: 36415; 74177-TC; 76937; 80053; 83690; 83735; 85025; 85610; 85730; 93005; 93010; 99283-25; J0131

== ENCOUNTER 2019-06-07 09:08 | Inpatient (IN) | payer OTHER ==
[2019-06-07 09:49] VITALS: BMI 22.6
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
[2019-06-07] MEDS ORDERED: ACETAMINOPHEN 325 MG TABLET (FP) PO PRN ×2 (12:36)
[2019-06-07] MEDS ORDERED: IBUPROFEN 400 MG TABLET (FP) PO PRN (12:36)
[2019-06-07] MEDS ORDERED: chlordiazePOXIDE HCL 25 MG CAPSULE PO PRN (12:36)
[2019-06-07] MEDS ORDERED: MENTHOL/PHENOL 1 EACH UD MM PRN (12:36)
[2019-06-07] MEDS ORDERED: BISMUTH SUBSALICYLATE 524 MG/30 ML UD PO PRN (12:36)
[2019-06-07] MEDS ORDERED: MAGNESIUM CITRATE 300 ML BOTTLE PO PRN (12:36)
[2019-06-07] MEDS ORDERED: MAGNESIUM HYDROX 2400MG/30ML ORAL SUSPENSION 30 ML CUP PO PRN (12:36)
[2019-06-07] MEDS ORDERED: MAG HYDROX/AL HYDROX/SIMETH 30 ML UNIT-DOSE CUP PO PRN (12:36)
[2019-06-07] MEDS: amLODIPine BESYLATE 5 MG TABLET (FP) PO SCH (13:59)
[2019-06-07] MEDS: hydrOXYzine PAMOATE 25 MG CAPSULE (FP) PO PRN (16:03)
[2019-06-07] MEDS: chlordiazePOXIDE HCL 25 MG CAPSULE PO SCH ×2 (17:47→22:02)
[2019-06-07] MEDS: MELATONIN 5 MG TABLETS PO PRN (22:02)
[2019-06-07] MEDS: APIXABAN 5 MG TABLET PO SCH (22:02)
[2019-06-07] MEDS: THIAMINE HCL 100 MG TABLET (FP) PO SCH (22:02)
[2019-06-07] MEDS: METHOCARBAMOL 500 MG TABLET PO PRN (22:03)
[2019-06-08] MEDS: hydrOXYzine PAMOATE 25 MG CAPSULE (FP) PO PRN ×2 (05:38→15:50)
[2019-06-08] MEDS: chlordiazePOXIDE HCL 25 MG CAPSULE PO SCH ×4 (05:38→22:01)
[2019-06-08] MEDS: METHOCARBAMOL 500 MG TABLET PO PRN (10:35)
[2019-06-08] MEDS: amLODIPine BESYLATE 5 MG TABLET (FP) PO SCH (10:36)
[2019-06-08] MEDS: APIXABAN 5 MG TABLET PO SCH ×2 (10:36→22:01)
[2019-06-08] MEDS: PRENATAL VITAMINS W/ FOLIC ACID TABLET (FP) PO SCH (10:36)
[2019-06-08] MEDS ORDERED: COLLOIDAL OATMEAL 1 BAR EACH TP PRN (10:40)
--- NOTE | 2019-06-08 11:24 | PN ---
[facility] CIWA - CIWA Score Nausea/Vomitin-Mild Nausea/No Vomiting Muscle Tremors: 3 Anxiety: 3 Agitation: 2 Paroxysmal Sweats: 2 Orientation: 0-Oriented Tacttile Disturbances: 2-Mild Itch/Numbness/Burn Auditory Disturbances: 0-None Visual Disturbances: 0-None Headache: 0-None Present CIWA-Ar Total Score: 13 BHS Progress Note (SOAP) Subjective: 48 years old female admitted on 06/07/19 for alcohol withdrawal sx management treated with librium detox regimen feeling tired resting on bed sweating patient request aveeno soap for shower and eucerin cream for dry skin Objective: 06/08/19 11:22 Vital Signs Temperature 99.4 F 06/08/19 09:25 Pulse Rate 88 06/08/19 09:25 Respiratory Rate 18 06/08/19 09:25 Blood Pressure 124/93 06/08/19 09:25 O2 Sat by Pulse Oximetry (%) 06/08/19 11:23 lab pending Assessment: 06/08/19 11:23 alcohol withdrawal sx Plan: continue librium detox regimen
[2019-06-08 12:15] LABS: HEMOGLOBIN 11.6 GM/dL (10.7-15.3); MCH 32.4 pg (25.7-33.7); MCHC 32.2 g/dl (32.0-36.0); MEAN CELL VOLUME 100.4 fl (80-96); MEAN PLT VOLUME 8.2 fl (7.5-11.1); PLATELET COUNT 368 K/MM3 (134-434); RBC 3.59 M/mm3 (3.60-5.2); RDW 14.2 % (11.6-15.6)
[2019-06-08 12:23] LABS: ALBUMIN 3.8 g/dl (3.4-5.0); BILIRUBIN,TOTAL 0.3 mg/dL (0.2-1); BLOOD UREA NITROGEN 6.6 mg/dL (7-18); CALCIUM 9.4 mg/dL (8.5-10.1); CREATININE 0.7 mg/dL (0.55-1.3); POTASSIUM 4.1 mmol/L (3.5-5.1); TOT PROT 8.5 g/dl (6.4-8.2)
[2019-06-08] MEDS: MINERAL OIL/PETROLAT/WATER TOPICAL CREAM 113 GM JAR TP SCH ×2 (13:30→22:01)
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
[2019-06-08] MEDS ORDERED: traZODone HCL 50 MG TABLET (FP) PO SCH (22:00)
[2019-06-08] MEDS: MIRTAZAPINE 15 MG TABLET (FP) PO SCH (22:01)
[2019-06-08] MEDS: MELATONIN 5 MG TABLETS PO PRN (22:01)
[2019-06-08] MEDS: THIAMINE HCL 100 MG TABLET (FP) PO SCH (22:01)
[2019-06-09] MEDS: chlordiazePOXIDE HCL 25 MG CAPSULE PO SCH ×4 (05:23→22:02)
[2019-06-09] MEDS: METHOCARBAMOL 500 MG TABLET PO PRN ×2 (05:23→13:24)
[2019-06-09] MEDS: hydrOXYzine PAMOATE 25 MG CAPSULE (FP) PO PRN ×2 (05:23→13:24)
--- NOTE | 2019-06-09 09:42 | PN ---
[facility] CIWA - CIWA Score Nausea/Vomitin-Mild Nausea/No Vomiting Muscle Tremors: 2 Anxiety: 3 Agitation: 1-Slight > Activity Paroxysmal Sweats: 2 Orientation: 0-Oriented Tacttile Disturbances: 1-Very Mild Itch/Numbness Auditory Disturbances: 0-None Visual Disturbances: 0-None Headache: 0-None Present CIWA-Ar Total Score: 10 S Progress Note (SOAP) Subjective: 48 years old female admitted on 06/07/19 for alcohol withdrawal sx management treated with librium detox regimen ate breakfast ambulating on hallway social with peers Objective: 06/09/19 09:42 Vital Signs Temperature 97.7 F 06/09/19 09:07 Pulse Rate 92 H 06/09/19 09:07 Respiratory Rate 18 06/09/19 09:07 Blood Pressure 123/88 06/09/19 09:07 O2 Sat by Pulse Oximetry (%) Laboratory Last Values WBC 5.0 K/mm3 (4.0-10.0) 06/08/19 08:10 RBC 3.59 M/mm3 (3.60-5.2) L 06/08/19 08:10 Hgb 11.6 GM/dL (10.7-15.3) 06/08/19 08:10 Hct 36.0 % (32.4-45.2) D 06/08/19 08:10 MCV 100.4 fl (80-96) H 06/08/19 08:10 MCH 32.4 pg (25.7-33.7) 06/08/19 08:10 MCHC 32.2 g/dl (32.0-36.0) 06/08/19 08:10 RDW 14.2 % (11.6-15.6) 06/08/19 08:10 Plt Count 368 K/MM3 (134-434) D 06/08/19 08:10 MPV 8.2 fl (7.5-11.1) 06/08/19 08:10 Sodium 140 mmol/L (136-145) 06/08/19 08:10 Potassium 4.1 mmol/L (3.5-5.1) 06/08/19 08:10 Chloride 104 mmol/L (98-107) 06/08/19 08:10 Carbon Dioxide 29 mmol/L (21-32) 06/08/19 08:10 Anion Gap 7 MMOL/L (8-16) L 06/08/19 08:10 BUN 6.6 mg/dL (7-18) L 06/08/19 08:10 Creatinine 0.7 mg/dL (0.55-1.3) 06/08/19 08:10 Est GFR (CKD-EPI)AfAm 118.74 06/08/19 08:10 Est GFR (CKD-EPI)NonAf 102.45 06/08/19 08:10 Random Glucose 80 mg/dL (74-106) 06/08/19 08:10 Calcium 9.4 mg/dL (8.5-10.1) 06/08/19 08:10 Total Bilirubin 0.3 mg/dL (0.2-1) 06/08/19 08:10 AST 19 U/L (15-37) 06/08/19 08:10 ALT 17 U/L (13-61) 06/08/19 08:10 Alkaline Phosphatase 106 U/L (45-117) 06/08/19 08:10 Total Protein 8.5 g/dl (6.4-8.2) H 06/08/19 08:10 Albumin 3.8 g/dl (3.4-5.0) 06/08/19 08:10 RPR Titer Nonreactive (NONREACTIVE) 06/08/19 08:10 lab noted Assessment: 06/09/19 09:42 alcohol withdrawal sx Plan: continue librium detox regimen
[2019-06-09] MEDS: amLODIPine BESYLATE 5 MG TABLET (FP) PO SCH (10:20)
[2019-06-09] MEDS: APIXABAN 5 MG TABLET PO SCH ×2 (10:20→22:02)
[2019-06-09] MEDS: PRENATAL VITAMINS W/ FOLIC ACID TABLET (FP) PO SCH (10:20)
[2019-06-09] MEDS: MINERAL OIL/PETROLAT/WATER TOPICAL CREAM 113 GM JAR TP SCH ×2 (10:20→22:36)
[2019-06-09] MEDS: MIRTAZAPINE 15 MG TABLET (FP) PO SCH (22:02)
[2019-06-09] MEDS: MELATONIN 5 MG TABLETS PO PRN (22:02)
[2019-06-09] MEDS: THIAMINE HCL 100 MG TABLET (FP) PO SCH (22:02)
[2019-06-10] MEDS ORDERED: chlordiazePOXIDE HCL 10 MG CAPSULE PO PRN
[2019-06-10] MEDS: chlordiazePOXIDE HCL 10 MG CAPSULE PO SCH ×4 (05:24→22:13)
[2019-06-10] MEDS: METHOCARBAMOL 500 MG TABLET PO PRN (05:24)
[2019-06-10] MEDS: hydrOXYzine PAMOATE 25 MG CAPSULE (FP) PO PRN ×2 (05:26→15:47)
[2019-06-10] MEDS: amLODIPine BESYLATE 5 MG TABLET (FP) PO SCH (09:34)
[2019-06-10] MEDS: PRENATAL VITAMINS W/ FOLIC ACID TABLET (FP) PO SCH (09:34)
[2019-06-10] MEDS: APIXABAN 5 MG TABLET PO SCH ×2 (09:34→22:14)
[2019-06-10] MEDS: MINERAL OIL/PETROLAT/WATER TOPICAL CREAM 113 GM JAR TP SCH ×2 (09:35→22:14)
--- NOTE | 2019-06-10 12:09 | PN ---
S CIWA - CIWA Score Nausea/Vomitin-Mild Nausea/No Vomiting Muscle Tremors: 1-None Visible, but [place] Anxiety: 1-Mildly Anxious Agitation: 2 Paroxysmal Sweats: No Perspiration Orientation: 0-Oriented Tacttile Disturbances: 1-Very Mild Itch/Numbness Auditory Disturbances: 0-None Visual Disturbances: 0-None Headache: 1-Very Mild CIWA-Ar Total Score: 7 BHS Progress Note (SOAP) Subjective: alert,irritable,anxious,interrupted sleep,pain in the body Objective: 06/10/19 12:07 Vital Signs Temperature 98.1 F 06/10/19 09:15 Pulse Rate 110 H 06/10/19 09:15 Respiratory Rate 18 06/10/19 09:15 Blood Pressure 118/85 06/10/19 09:15 O2 Sat by Pulse Oximetry (%) Assessment: 06/10/19 12:08 withdrawal symptom Plan: continue detox librium regimen
[2019-06-10] MEDS: THIAMINE HCL 100 MG TABLET (FP) PO SCH (22:12)
[2019-06-10] MEDS: MIRTAZAPINE 15 MG TABLET (FP) PO SCH (22:12)
[2019-06-10] MEDS: MELATONIN 5 MG TABLETS PO PRN (22:13)
[2019-06-11] MEDS: hydrOXYzine PAMOATE 25 MG CAPSULE (FP) PO PRN ×3 (05:34→22:07)
[2019-06-11] MEDS: chlordiazePOXIDE HCL 10 MG CAPSULE PO SCH ×2 (05:34→16:54)
[2019-06-11] MEDS: METHOCARBAMOL 500 MG TABLET PO PRN ×3 (05:34→22:07)
--- NOTE | 2019-06-11 10:23 | PN ---
S CIWA - CIWA Score Nausea/Vomitin-No Nausea/No Vomiting Muscle Tremors: 2 Anxiety: 2 Agitation: 1-Slight > Activity Paroxysmal Sweats: No Perspiration Orientation: 0-Oriented Tacttile Disturbances: 0-None Auditory Disturbances: 0-None Visual Disturbances: 0-None Headache: 0-None Present CIWA-Ar Total Score: 5 BHS Progress Note (SOAP) Subjective: 48 years old female admitted on 06/07/19 for alcohol withdrawal sx management treated with librium detox regimen requests to be seen by a psychiatrist that remeron dosage needs to be modified feeling better discuss aftercare with staff Objective: 06/11/19 10:21 Vital Signs Temperature 98.2 F 06/11/19 09:34 Pulse Rate 95 H 06/11/19 09:34 Respiratory Rate 20 06/11/19 09:34 Blood Pressure 117/85 06/11/19 09:34 O2 Sat by Pulse Oximetry (%) Laboratory Last Values WBC 5.0 K/mm3 (4.0-10.0) 06/08/19 08:10 RBC 3.59 M/mm3 (3.60-5.2) L 06/08/19 08:10 Hgb 11.6 GM/dL (10.7-15.3) 06/08/19 08:10 Hct 36.0 % (32.4-45.2) D 06/08/19 08:10 MCV 100.4 fl (80-96) H 06/08/19 08:10 MCH 32.4 pg (25.7-33.7) 06/08/19 08:10 MCHC 32.2 g/dl (32.0-36.0) 06/08/19 08:10 RDW 14.2 % (11.6-15.6) 06/08/19 08:10 Plt Count 368 K/MM3 (134-434) D 06/08/19 08:10 MPV 8.2 fl (7.5-11.1) 06/08/19 08:10 Sodium 140 mmol/L (136-145) 06/08/19 08:10 Potassium 4.1 mmol/L (3.5-5.1) 06/08/19 08:10 Chloride 104 mmol/L (98-107) 06/08/19 08:10 Carbon Dioxide 29 mmol/L (21-32) 06/08/19 08:10 Anion Gap 7 MMOL/L (8-16) L 06/08/19 08:10 BUN 6.6 mg/dL (7-18) L 06/08/19 08:10 Creatinine 0.7 mg/dL (0.55-1.3) 06/08/19 08:10 Est GFR (CKD-EPI)AfAm 118.74 06/08/19 08:10 Est GFR (CKD-EPI)NonAf 102.45 06/08/19 08:10 Random Glucose 80 mg/dL (74-106) 06/08/19 08:10 Calcium 9.4 mg/dL (8.5-10.1) 06/08/19 08:10 Total Bilirubin 0.3 mg/dL (0.2-1) 06/08/19 08:10 AST 19 U/L (15-37) 06/08/19 08:10 ALT 17 U/L (13-61) 06/08/19 08:10 Alkaline Phosphatase 106 U/L (45-117) 06/08/19 08:10 Total Protein 8.5 g/dl (6.4-8.2) H 06/08/19 08:10 Albumin 3.8 g/dl (3.4-5.0) 06/08/19 08:10 POC Urine HCG, Qual Negative 06/07/19 10:04 RPR Titer Nonreactive (NONREACTIVE) 06/08/19 08:10 lab noted Assessment: 06/11/19 10:22 alcohol withdrawal sx Plan: continue librium detox regimen
[2019-06-11] MEDS: APIXABAN 5 MG TABLET PO SCH ×2 (10:35→22:07)
[2019-06-11] MEDS: PRENATAL VITAMINS W/ FOLIC ACID TABLET (FP) PO SCH (10:35)
[2019-06-11] MEDS: amLODIPine BESYLATE 5 MG TABLET (FP) PO SCH (10:35)
[2019-06-11] MEDS: MINERAL OIL/PETROLAT/WATER TOPICAL CREAM 113 GM JAR TP SCH ×2 (10:35→22:08)
[2019-06-11] MEDS: MELATONIN 5 MG TABLETS PO PRN (22:07)
[2019-06-11] MEDS: THIAMINE HCL 100 MG TABLET (FP) PO SCH (22:07)
[2019-06-11] MEDS: MIRTAZAPINE 15 MG TABLET (FP) PO SCH (22:07)
[2019-06-12] MEDS ORDERED: chlordiazePOXIDE HCL 10 MG CAPSULE PO ONE (05:00)
[2019-06-12] MEDS: METHOCARBAMOL 500 MG TABLET PO PRN (05:36)
[2019-06-12] MEDS: hydrOXYzine PAMOATE 25 MG CAPSULE (FP) PO PRN (05:36)
[2019-06-12 09:20] VITALS: BP 137/93; PULSE 107; TEMP 98
--- NOTE | 2019-06-12 10:02 | PN ---
S CIWA - CIWA Score Nausea/Vomitin-No Nausea/No Vomiting Muscle Tremors: 1-None Visible, but [place] Anxiety: 1-Mildly Anxious Agitation: 1-Slight > Activity Paroxysmal Sweats: No Perspiration Orientation: 0-Oriented Tacttile Disturbances: 0-None Auditory Disturbances: 0-None Visual Disturbances: 0-None Headache: 1-Very Mild CIWA-Ar Total Score: 4 BHS Progress Note (SOAP) Subjective: alert,no complaint Objective: 06/12/19 10:01 Vital Signs Temperature 98.0 F 06/12/19 09:19 Pulse Rate 107 H 06/12/19 09:19 Respiratory Rate 18 06/12/19 09:19 Blood Pressure 137/93 06/12/19 09:19 O2 Sat by Pulse Oximetry (%) Assessment: 06/12/19 10:01 detox completed,no withdrawal symptom 06/12/19 10:01 Plan: discharge to rehab today
--- NOTE | 2019-06-12 10:05 | DS ---
[facility] Detox Discharge Summary Admission Date: 06/07/19 Discharge Date: 06/12/19 - History Present History: Alcohol Dependence, Cannabis Dependence, Sedative Dependence, K 2 Additional Comments: follow up with [facility] Pertinent Past History: history of dvt insomnia - Physical Exam Results Vital Signs: Vital Signs Temperature 98.0 F 06/12/19 09:19 Pulse Rate 107 H 06/12/19 09:19 Respiratory Rate 18 06/12/19 09:19 Blood Pressure 137/93 06/12/19 09:19 O2 Sat by Pulse Oximetry (%) Pertinent Admission Physical Exam Findings: withdrawal signs and symptom Lab Results WBC 5.0 K/mm3 (4.0-10.0) 06/08/19 08:10 RBC 3.59 M/mm3 (3.60-5.2) L 06/08/19 08:10 Hgb 11.6 GM/dL (10.7-15.3) 06/08/19 08:10 Hct 36.0 % (32.4-45.2) D 06/08/19 08:10 MCV 100.4 fl (80-96) H 06/08/19 08:10 MCHC 32.2 g/dl (32.0-36.0) 06/08/19 08:10 RDW 14.2 % (11.6-15.6) 06/08/19 08:10 Plt Count 368 K/MM3 (134-434) D 06/08/19 08:10 Sodium 140 mmol/L (136-145) 06/08/19 08:10 Potassium 4.1 mmol/L (3.5-5.1) 06/08/19 08:10 Chloride 104 mmol/L (98-107) 06/08/19 08:10 Carbon Dioxide 29 mmol/L (21-32) 06/08/19 08:10 Anion Gap 7 MMOL/L (8-16) L 06/08/19 08:10 BUN 6.6 mg/dL (7-18) L 06/08/19 08:10 Creatinine 0.7 mg/dL (0.55-1.3) 06/08/19 08:10 Random Glucose 80 mg/dL (74-106) 06/08/19 08:10 Calcium 9.4 mg/dL (8.5-10.1) 06/08/19 08:10 - Treatment Hospital Course: Detox Protocol Followed, Detoxed Safely - Medication Discharge Medications: Ambulatory Orders Amlodipine Besylate [Norvasc -] 5 mg PO DAILY #30 tablet 05/06/19 Apixaban [Eliquis -] 5 mg PO BID #30 tablet 05/06/19 Melatonin 5 mg PO HS PRN #30 tab 05/06/19 - Diagnosis (1) Alcohol dependence with uncomplicated withdrawal Current Visit: Yes Status: Acute (2) History of deep venous thrombosis Current Visit: No Status: Chronic (3) Hypertension Current Visit: No Status: Chronic Qualifiers: Hypertension type: essential hypertension Qualified Code(s): I10 - Essential (primary) hypertension (4) Alcohol dependence with intoxication Current Visit: Yes Status: Acute (5) Syncope Current Visit: Yes Status: Acute (6) Anxiety and depression Current Visit: Yes Status: Acute (7) Insomnia Current Visit: Yes Status: Chronic (8) Cannabis dependence Current Visit: Yes Status: Chronic (9) Cocaine dependence Current Visit: Yes Status: Chronic Qualifiers: Substance use status: uncomplicated Qualified Code(s): F14.20 - Cocaine dependence, uncomplicated
[2019-06-12] MEDS: amLODIPine BESYLATE 5 MG TABLET (FP) PO SCH (10:37)
[2019-06-12] MEDS: APIXABAN 5 MG TABLET PO SCH (10:37)
[2019-06-12] MEDS: PRENATAL VITAMINS W/ FOLIC ACID TABLET (FP) PO SCH (10:37)
[2019-06-12] MEDS: MINERAL OIL/PETROLAT/WATER TOPICAL CREAM 113 GM JAR TP SCH (11:12)
== END 2019-06-12 12:35 | disposition other institution (70) | DRG 774 ==
LOC: YASAS 09:08 → Y3N 13:14
PROVIDERS: ADMIT Allergy & Immunology; ATTEND Allergy & Immunology
PROC: HZ2ZZZZ Detoxification Services for Substance Abuse Treatment (ICD-10-PCS; principal; 2019-06-07)
DX: F10.230 Alcohol dependence with withdrawal, uncomplicated (principal); F14.20 Cocaine dependence, uncomplicated; F12.20 Cannabis dependence, uncomplicated; F19.24 Other psychoactive substance dependence with psychoactive substance-induced mood disorder; F41.8 Other specified anxiety disorders; F32.9 Major depressive disorder, single episode, unspecified; G47.00 Insomnia, unspecified; J21.9 Acute bronchiolitis, unspecified; I10 Essential (primary) hypertension; L85.3 Xerosis cutis; R55 Syncope and collapse; Z86.718 Personal history of other venous thrombosis and embolism; Z79.01 Long term (current) use of anticoagulants; Z86.73 Personal history of transient ischemic attack (TIA), and cerebral infarction without residual deficits; Z96.651 Presence of right artificial knee joint; Z90.81 Acquired absence of spleen; Z87.19 Personal history of other diseases of the digestive system; Z91.048 Other nonmedicinal substance allergy status
CPT/HCPCS: 36415; 80053; 81025; 85027; 86593

== ENCOUNTER 2019-06-12 11:51 | Inpatient (IN) | payer OTHER ==
[2019-06-12] MEDS ORDERED: MAGNESIUM HYDROX 2400MG/30ML ORAL SUSPENSION 30 ML CUP PO PRN (14:38)
[2019-06-12] MEDS ORDERED: MAG HYDROX/AL HYDROX/SIMETH 30 ML UNIT-DOSE CUP PO PRN (14:38)
[2019-06-12] MEDS ORDERED: hydrOXYzine PAMOATE 50 MG CAPSULE (FP) PO PRN (14:38)
[2019-06-12] MEDS ORDERED: IBUPROFEN 400 MG TABLET (FP) PO PRN (14:38)
[2019-06-12] MEDS ORDERED: guaiFENesin 200 MG/10 ML 10 ML UNIT-DOSE CUPS PO PRN (14:38)
[2019-06-12] MEDS ORDERED: LOPERAMIDE HCL 2 MG CAPSULE PO PRN (14:38)
[2019-06-12] MEDS ORDERED: MAGNESIUM CITRATE 300 ML BOTTLE PO PRN (14:38)
--- NOTE | 2019-06-12 14:38 | HP ---
[facility] Re[facility] Assess/Revision - Admission History Admitted to Rehab from: [facility] Date of Admission to Rehab: 06/12/19 - Vital signs Vital Signs: Vital Signs Period Temp Pulse Resp BP Sys/Enriquez Pulse Ox Last 24 Hr 98.4 F 112 18 133/99 - Findings Detox History & Physical reviewed: Yes Concur with findings: Yes Comments/Additional Findings: for rehab as protocol Inpatient Rehab Admission - Rehab Decision to Admit Inpatient rehab admission?: Yes - Initial Determination Are CD services needed?: Yes Free of communicable disease: Yes Not in need of hospitalization: Yes - Rehab Admission Criteria Previous failed treatment: Yes Poor recovery environment: Yes Comorbidities: Yes Lacks judgement: No Patient is meeting Inpatient Rehab admission criteria:: Yes
[2019-06-12] MEDS ORDERED: COLLOIDAL OATMEAL 1 BAR EACH TP PRN (14:44)
[2019-06-12] MEDS: ACETAMINOPHEN 325 MG TABLET (FP) PO PRN (15:22)
--- NOTE | 2019-06-12 18:52 | PN ---
[facility]ael Progress Note Note: Psychiatry Attending's note (delayed) : Seen by magnetic tape typewriter operator this morning at [address]. MD was approached by the patient. Complaint : refractory insomnia. Ms Anthony reports mirtazapine not effective at 15 mg/hs. Observed this morning as alert, cognitively intact. Steady gait. No complaint of sedation, drowsiness or orthostasis. Medication well tolerated. Patient reports that, in the past, she used to be on 30 mg of remeron at bedtime. Intervention : Mirtazapine dose is titrated to 30 mg po hs. Side effects/benefits were revisited with patient. Ms Anthony did agree with this plan of care.
[2019-06-12] MEDS: THIAMINE HCL 100 MG TABLET (FP) PO SCH (21:17)
[2019-06-12] MEDS ORDERED: MIRTAZAPINE 15 MG TABLET (FP) ONE (21:18)
[2019-06-12] MEDS: MIRTAZAPINE 30 MG TABLET (FP) PO SCH (21:19)
[2019-06-12] MEDS: APIXABAN 5 MG TABLET PO SCH (21:19)
[2019-06-12] MEDS ORDERED: MIRTAZAPINE 15 MG TABLET (FP) PO SCH (22:00)
[2019-06-13] MEDS: METHOCARBAMOL 500 MG TABLET PO PRN ×2 (06:33→15:05)
[2019-06-13] MEDS: ACETAMINOPHEN 325 MG TABLET (FP) PO PRN ×2 (06:33→12:37)
[2019-06-13] MEDS: PRENATAL VITAMINS W/ FOLIC ACID TABLET (FP) PO SCH (10:24)
[2019-06-13] MEDS: APIXABAN 5 MG TABLET PO SCH ×2 (10:24→21:08)
[2019-06-13] MEDS: amLODIPine BESYLATE 5 MG TABLET (FP) PO SCH (10:24)
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
[2019-06-13] MEDS ORDERED: MIRTAZAPINE 15 MG TABLET (FP) ONE (19:45)
[2019-06-13] MEDS: THIAMINE HCL 100 MG TABLET (FP) PO SCH (21:08)
[2019-06-13] MEDS: MELATONIN 5 MG TABLETS PO PRN (21:08)
[2019-06-13] MEDS: MIRTAZAPINE 30 MG TABLET (FP) PO SCH (21:08)
[2019-06-14] MEDS: METHOCARBAMOL 500 MG TABLET PO PRN ×3 (06:25→21:38)
[2019-06-14] MEDS: ACETAMINOPHEN 325 MG TABLET (FP) PO PRN ×2 (06:25→14:10)
[2019-06-14] MEDS: amLODIPine BESYLATE 5 MG TABLET (FP) PO SCH (09:33)
[2019-06-14] MEDS: PRENATAL VITAMINS W/ FOLIC ACID TABLET (FP) PO SCH (09:33)
[2019-06-14] MEDS: APIXABAN 5 MG TABLET PO SCH ×2 (09:33→21:39)
[2019-06-14] MEDS ORDERED: MIRTAZAPINE 15 MG TABLET (FP) ONE (20:06)
[2019-06-14] MEDS: MELATONIN 5 MG TABLETS PO PRN (21:38)
[2019-06-14] MEDS: THIAMINE HCL 100 MG TABLET (FP) PO SCH (21:38)
[2019-06-14] MEDS: MIRTAZAPINE 30 MG TABLET (FP) PO SCH (21:39)
[2019-06-15] MEDS: ACETAMINOPHEN 325 MG TABLET (FP) PO PRN (07:13)
[2019-06-15] MEDS: METHOCARBAMOL 500 MG TABLET PO PRN ×2 (07:13→21:48)
[2019-06-15] MEDS: PRENATAL VITAMINS W/ FOLIC ACID TABLET (FP) PO SCH (10:05)
[2019-06-15] MEDS: amLODIPine BESYLATE 5 MG TABLET (FP) PO SCH (10:05)
[2019-06-15] MEDS: APIXABAN 5 MG TABLET PO SCH ×2 (10:06→21:48)
[2019-06-15] MEDS ORDERED: MIRTAZAPINE 15 MG TABLET (FP) ONE (19:46)
[2019-06-15] MEDS: MELATONIN 5 MG TABLETS PO PRN (21:48)
[2019-06-15] MEDS: THIAMINE HCL 100 MG TABLET (FP) PO SCH (21:48)
[2019-06-15] MEDS: MIRTAZAPINE 30 MG TABLET (FP) PO SCH (21:50)
[2019-06-16] MEDS: amLODIPine BESYLATE 5 MG TABLET (FP) PO SCH (09:16)
[2019-06-16] MEDS: PRENATAL VITAMINS W/ FOLIC ACID TABLET (FP) PO SCH (09:16)
[2019-06-16] MEDS: APIXABAN 5 MG TABLET PO SCH ×2 (09:16→21:25)
[2019-06-16] MEDS: ACETAMINOPHEN 325 MG TABLET (FP) PO PRN (09:16)
[2019-06-16] MEDS: METHOCARBAMOL 500 MG TABLET PO PRN ×2 (09:18→21:26)
--- NOTE | 2019-06-16 10:45 | PN ---
[facility] Progress Note Note: Pt is a 48 y/o female with MARIELLE admitted to rehab since 06/12/19 from detox. Pt is c/o high anxiety and requests to see the psych for re-evaluation of her meds. Pt is currently on Remeron 30 mg po HS. Alert o x 3, denies s/h/i. Oob ambulating with steady gait. Saw pt in large day room socializing with peer but angry that he has not been seen for re-evaluation and threatening to leave program. Vital Signs - 24 hr 06/16/19 06/16/19 03:30 06:53 Temperature 98.0 F Pulse Rate 81 Respiratory 18 16 Rate Blood Pressure 122/87 A/P hx mood and anxiety disorder Psych consult today for re-evaluation. Increase po fluids
[2019-06-16] MEDS: hydrOXYzine PAMOATE 50 MG CAPSULE (FP) PO PRN ×2 (16:37→21:26)
[2019-06-16] MEDS: MELATONIN 5 MG TABLETS PO PRN (21:25)
[2019-06-16] MEDS: THIAMINE HCL 100 MG TABLET (FP) PO SCH (21:25)
[2019-06-16] MEDS: MIRTAZAPINE 30 MG TABLET (FP) PO SCH (21:25)
[2019-06-17] MEDS: ACETAMINOPHEN 325 MG TABLET (FP) PO PRN (06:02)
[2019-06-17] MEDS: hydrOXYzine PAMOATE 50 MG CAPSULE (FP) PO PRN ×3 (06:03→21:18)
[2019-06-17] MEDS: METHOCARBAMOL 500 MG TABLET PO PRN ×2 (06:04→21:18)
[2019-06-17] MEDS: APIXABAN 5 MG TABLET PO SCH ×2 (09:55→21:18)
[2019-06-17] MEDS: PRENATAL VITAMINS W/ FOLIC ACID TABLET (FP) PO SCH (09:55)
[2019-06-17] MEDS: amLODIPine BESYLATE 5 MG TABLET (FP) PO SCH (09:55)
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
[2019-06-17] MEDS: MIRTAZAPINE 30 MG TABLET (FP) PO SCH (21:18)
[2019-06-17] MEDS: THIAMINE HCL 100 MG TABLET (FP) PO SCH (21:18)
[2019-06-18] MEDS: METHOCARBAMOL 500 MG TABLET PO PRN ×2 (09:20→21:12)
[2019-06-18] MEDS: hydrOXYzine PAMOATE 50 MG CAPSULE (FP) PO PRN ×2 (09:21→21:12)
[2019-06-18] MEDS: APIXABAN 5 MG TABLET PO SCH ×2 (09:21→21:11)
[2019-06-18] MEDS: amLODIPine BESYLATE 5 MG TABLET (FP) PO SCH (09:21)
[2019-06-18] MEDS: PRENATAL VITAMINS W/ FOLIC ACID TABLET (FP) PO SCH (09:21)
[2019-06-18] MEDS: MELATONIN 5 MG TABLETS PO PRN (21:11)
[2019-06-18] MEDS: MIRTAZAPINE 30 MG TABLET (FP) PO SCH (21:11)
[2019-06-18] MEDS: THIAMINE HCL 100 MG TABLET (FP) PO SCH (21:11)
[2019-06-18] MEDS: HYDROCORTISONE 2.5% TOPICAL CREAM 30 GM TUBE TP SCH (23:49)
[2019-06-19] MEDS ORDERED: PT OWN MED DRAWER 7, Y5N ONE (08:29)
[2019-06-19] MEDS: HYDROCORTISONE 2.5% TOPICAL CREAM 30 GM TUBE TP SCH ×2 (10:00→21:16)
[2019-06-19] MEDS: APIXABAN 5 MG TABLET PO SCH ×2 (10:00→21:14)
[2019-06-19] MEDS: amLODIPine BESYLATE 5 MG TABLET (FP) PO SCH (10:01)
[2019-06-19] MEDS: PRENATAL VITAMINS W/ FOLIC ACID TABLET (FP) PO SCH (10:01)
[2019-06-19] MEDS: METHOCARBAMOL 500 MG TABLET PO PRN ×2 (10:02→18:08)
[2019-06-19] MEDS: hydrOXYzine PAMOATE 50 MG CAPSULE (FP) PO PRN ×3 (10:02→21:14)
[2019-06-19] MEDS: MIRTAZAPINE 30 MG TABLET (FP) PO SCH (21:14)
[2019-06-19] MEDS: THIAMINE HCL 100 MG TABLET (FP) PO SCH (21:14)
[2019-06-19] MEDS: MELATONIN 5 MG TABLETS PO PRN (21:14)
[2019-06-20] MEDS: METHOCARBAMOL 500 MG TABLET PO PRN ×3 (06:46→21:18)
[2019-06-20] MEDS: hydrOXYzine PAMOATE 50 MG CAPSULE (FP) PO PRN ×3 (06:46→21:18)
[2019-06-20] MEDS: amLODIPine BESYLATE 5 MG TABLET (FP) PO SCH (09:53)
[2019-06-20] MEDS: HYDROCORTISONE 2.5% TOPICAL CREAM 30 GM TUBE TP SCH ×2 (09:53→21:19)
[2019-06-20] MEDS: APIXABAN 5 MG TABLET PO SCH ×2 (09:54→21:18)
[2019-06-20] MEDS: PRENATAL VITAMINS W/ FOLIC ACID TABLET (FP) PO SCH (09:54)
[2019-06-20] MEDS: THIAMINE HCL 100 MG TABLET (FP) PO SCH (21:18)
[2019-06-20] MEDS: MIRTAZAPINE 30 MG TABLET (FP) PO SCH (21:18)
[2019-06-20] MEDS: MELATONIN 5 MG TABLETS PO PRN (21:19)
[2019-06-21] MEDS: hydrOXYzine PAMOATE 50 MG CAPSULE (FP) PO PRN ×3 (07:05→21:43)
[2019-06-21] MEDS: METHOCARBAMOL 500 MG TABLET PO PRN ×3 (07:05→21:43)
[2019-06-21] MEDS: APIXABAN 5 MG TABLET PO SCH ×2 (09:54→21:43)
[2019-06-21] MEDS: amLODIPine BESYLATE 5 MG TABLET (FP) PO SCH (09:54)
[2019-06-21] MEDS: HYDROCORTISONE 2.5% TOPICAL CREAM 30 GM TUBE TP SCH ×2 (09:54→21:44)
[2019-06-21] MEDS: PRENATAL VITAMINS W/ FOLIC ACID TABLET (FP) PO SCH (09:54)
[2019-06-21] MEDS: THIAMINE HCL 100 MG TABLET (FP) PO SCH (21:43)
[2019-06-21] MEDS: MIRTAZAPINE 30 MG TABLET (FP) PO SCH (21:43)
[2019-06-22] MEDS: METHOCARBAMOL 500 MG TABLET PO PRN ×2 (06:58→21:09)
[2019-06-22] MEDS: hydrOXYzine PAMOATE 50 MG CAPSULE (FP) PO PRN (06:58)
[2019-06-22] MEDS ORDERED: PT OWN MED DRAWER 7, Y5N ONE ×2 (08:28→21:11)
[2019-06-22] MEDS: amLODIPine BESYLATE 5 MG TABLET (FP) PO SCH (10:00)
[2019-06-22] MEDS: PRENATAL VITAMINS W/ FOLIC ACID TABLET (FP) PO SCH (10:00)
[2019-06-22] MEDS: APIXABAN 5 MG TABLET PO SCH ×2 (10:00→21:09)
[2019-06-22] MEDS: HYDROCORTISONE 2.5% TOPICAL CREAM 30 GM TUBE TP SCH ×2 (10:00→22:05)
[2019-06-22] MEDS: P-EPHED 60MG/TRIPROLIDI 2.5MG TABLET PO PRN ×2 (13:40→22:05)
[2019-06-22] MEDS: MIRTAZAPINE 30 MG TABLET (FP) PO SCH (21:09)
[2019-06-22] MEDS: MELATONIN 5 MG TABLETS PO PRN (21:09)
[2019-06-22] MEDS: THIAMINE HCL 100 MG TABLET (FP) PO SCH (21:09)
[2019-06-23] MEDS: METHOCARBAMOL 500 MG TABLET PO PRN ×2 (06:38→21:26)
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
[2019-06-23] MEDS ORDERED: PT OWN MED DRAWER 7, Y5N ONE (08:56)
[2019-06-23] MEDS: SODIUM CHLORIDE NASAL SPRAY 44 ML BOTTLE NS PRN (10:14)
[2019-06-23] MEDS: HYDROCORTISONE 2.5% TOPICAL CREAM 30 GM TUBE TP SCH ×2 (10:16→21:27)
[2019-06-23] MEDS: amLODIPine BESYLATE 5 MG TABLET (FP) PO SCH (10:17)
[2019-06-23] MEDS: APIXABAN 5 MG TABLET PO SCH ×2 (10:17→21:26)
[2019-06-23] MEDS: PRENATAL VITAMINS W/ FOLIC ACID TABLET (FP) PO SCH (10:17)
[2019-06-23] MEDS: P-EPHED 60MG/TRIPROLIDI 2.5MG TABLET PO PRN (19:10)
[2019-06-23] MEDS: THIAMINE HCL 100 MG TABLET (FP) PO SCH (21:26)
[2019-06-23] MEDS: MIRTAZAPINE 30 MG TABLET (FP) PO SCH (21:26)
[2019-06-23] MEDS: MELATONIN 5 MG TABLETS PO PRN (21:26)
[2019-06-24] MEDS: METHOCARBAMOL 500 MG TABLET PO PRN ×2 (07:10→21:59)
[2019-06-24] MEDS: PRENATAL VITAMINS W/ FOLIC ACID TABLET (FP) PO SCH (09:35)
[2019-06-24] MEDS: amLODIPine BESYLATE 5 MG TABLET (FP) PO SCH (09:35)
[2019-06-24] MEDS: SODIUM CHLORIDE NASAL SPRAY 44 ML BOTTLE NS PRN (09:36)
[2019-06-24] MEDS: ACETAMINOPHEN 325 MG TABLET (FP) PO PRN ×2 (09:36→16:46)
[2019-06-24] MEDS: APIXABAN 5 MG TABLET PO SCH ×2 (09:36→21:59)
[2019-06-24] MEDS: MENTHOL/PHENOL 1 EACH UD MM PRN ×2 (09:38→16:49)
[2019-06-24] MEDS: HYDROCORTISONE 2.5% TOPICAL CREAM 30 GM TUBE TP SCH ×2 (09:38→22:01)
--- NOTE | 2019-06-24 15:32 | PN ---
[facility] Progress Note (SOAP) Subjective: Patient reports not feeling well, stuffy nose, body aches Objective: General: No apparent distress, found resting comfortably in bed HEENTM: Normocephalic, PERRLA,[id number], nares-congested Neck: supple, Lungs: clear Heart: s1 s2 06/24/19 15:30 06/24/19 15:32 Vital Signs (72 hours) 06/22/19 06/22/19 06/22/19 03:30 06:58 09:12 Temperature 97.9 F Pulse Rate 80 111 H Respiratory 18 18 Rate Blood Pressure 116/81 112/82 06/23/19 06/23/19 06/23/19 03:30 07:01 07:30 Temperature 98.1 F 98.1 F Pulse Rate 90 90 Respiratory 16 18 18 Rate Blood Pressure 125/94 125/94 06/23/19 06/23/19 06/23/19 09:30 09:32 10:17 Temperature 97.7 F 97.7 F Pulse Rate 93 H 98 H 93 H Respiratory 18 18 18 Rate Blood Pressure 135/98 134/98 135/98 06/23/19 06/23/19 06/23/19 11:30 13:30 15:30 Temperature 98.0 F 97.8 F 98 F Pulse Rate 93 H 92 H 98 H Respiratory 18 18 18 Rate Blood Pressure 133/92 126/90 134/93 06/23/19 06/23/19 06/24/19 17:30 19:30 00:30 Temperature 98.6 F 97 F L Pulse Rate 86 96 H Respiratory 18 18 18 Rate Blood Pressure 122/86 142/94 06/24/19 06/24/19 06/24/19 03:30 07:09 07:30 Temperature 97.8 F 98.0 F 98.6 F Pulse Rate 82 89 90 Respiratory 18 18 18 Rate Blood Pressure 99/64 125/91 129/91 06/24/19 06/24/19 06/24/19 07:40 09:35 10:00 Temperature 98.6 F 98.3 F Pulse Rate 90 109 H Respiratory 18 Rate Blood Pressure 129/91 138/95 Assessment: URI 06/24/19 15:31 Plan: Treat symptomatically with fluids, tylenol, and rest.
[2019-06-24] MEDS: THIAMINE HCL 100 MG TABLET (FP) PO SCH (21:58)
[2019-06-24] MEDS: MELATONIN 5 MG TABLETS PO PRN (21:58)
[2019-06-24] MEDS: MIRTAZAPINE 30 MG TABLET (FP) PO SCH (21:59)
[2019-06-25] MEDS: METHOCARBAMOL 500 MG TABLET PO PRN ×2 (06:42→21:39)
[2019-06-25] MEDS: ACETAMINOPHEN 325 MG TABLET (FP) PO PRN ×2 (06:42→12:21)
[2019-06-25] MEDS ORDERED: PT OWN MED DRAWER 7, Y5N ONE ×3 (08:08→20:20)
[2019-06-25] MEDS: amLODIPine BESYLATE 5 MG TABLET (FP) PO SCH (09:11)
[2019-06-25] MEDS: APIXABAN 5 MG TABLET PO SCH ×2 (09:11→21:39)
[2019-06-25] MEDS: HYDROCORTISONE 2.5% TOPICAL CREAM 30 GM TUBE TP SCH ×2 (09:11→21:40)
[2019-06-25] MEDS: PRENATAL VITAMINS W/ FOLIC ACID TABLET (FP) PO SCH (09:12)
[2019-06-25] MEDS: P-EPHED 60MG/TRIPROLIDI 2.5MG TABLET PO PRN ×2 (09:13→18:11)
[2019-06-25] MEDS: MENTHOL/PHENOL 1 EACH UD MM PRN (09:13)
[2019-06-25] MEDS: SODIUM CHLORIDE NASAL SPRAY 44 ML BOTTLE NS PRN (12:23)
[2019-06-25] MEDS: MIRTAZAPINE 30 MG TABLET (FP) PO SCH (21:39)
[2019-06-25] MEDS: MELATONIN 5 MG TABLETS PO PRN (21:39)
[2019-06-25] MEDS: THIAMINE HCL 100 MG TABLET (FP) PO SCH (21:39)
[2019-06-26] MEDS: METHOCARBAMOL 500 MG TABLET PO PRN ×2 (06:37→21:10)
[2019-06-26] MEDS: P-EPHED 60MG/TRIPROLIDI 2.5MG TABLET PO PRN (06:37)
[2019-06-26] MEDS: PRENATAL VITAMINS W/ FOLIC ACID TABLET (FP) PO SCH (09:34)
[2019-06-26] MEDS: SODIUM CHLORIDE NASAL SPRAY 44 ML BOTTLE NS PRN ×2 (09:34→21:10)
[2019-06-26] MEDS: APIXABAN 5 MG TABLET PO SCH ×2 (09:34→21:10)
[2019-06-26] MEDS: HYDROCORTISONE 2.5% TOPICAL CREAM 30 GM TUBE TP SCH ×2 (09:34→21:11)
[2019-06-26] MEDS: amLODIPine BESYLATE 5 MG TABLET (FP) PO SCH (09:34)
[2019-06-26] MEDS: ACETAMINOPHEN 325 MG TABLET (FP) PO PRN (14:32)
[2019-06-26] MEDS: MIRTAZAPINE 30 MG TABLET (FP) PO SCH (21:10)
[2019-06-26] MEDS: THIAMINE HCL 100 MG TABLET (FP) PO SCH (21:10)
[2019-06-26] MEDS: MELATONIN 5 MG TABLETS PO PRN (21:11)
[2019-06-27] MEDS: METHOCARBAMOL 500 MG TABLET PO PRN ×2 (06:44→21:05)
[2019-06-27] MEDS ORDERED: PT OWN MED DRAWER 7, Y5N ONE (08:36)
[2019-06-27] MEDS: PRENATAL VITAMINS W/ FOLIC ACID TABLET (FP) PO SCH (09:39)
[2019-06-27] MEDS: amLODIPine BESYLATE 5 MG TABLET (FP) PO SCH (09:39)
[2019-06-27] MEDS: APIXABAN 5 MG TABLET PO SCH ×2 (09:39→21:05)
[2019-06-27] MEDS: ACETAMINOPHEN 325 MG TABLET (FP) PO PRN (09:40)
[2019-06-27] MEDS: HYDROCORTISONE 2.5% TOPICAL CREAM 30 GM TUBE TP SCH ×2 (10:34→22:58)
[2019-06-27] MEDS: P-EPHED 60MG/TRIPROLIDI 2.5MG TABLET PO PRN (17:43)
[2019-06-27] MEDS: MIRTAZAPINE 30 MG TABLET (FP) PO SCH (21:05)
[2019-06-27] MEDS: THIAMINE HCL 100 MG TABLET (FP) PO SCH (21:05)
[2019-06-27] MEDS: MELATONIN 5 MG TABLETS PO PRN (21:06)
[2019-06-28] MEDS: METHOCARBAMOL 500 MG TABLET PO PRN ×3 (06:50→21:58)
[2019-06-28] MEDS ORDERED: PT OWN MED DRAWER 7, Y5N ONE (08:29)
[2019-06-28] MEDS: ACETAMINOPHEN 325 MG TABLET (FP) PO PRN ×3 (08:29→16:40)
[2019-06-28] MEDS: HYDROCORTISONE 2.5% TOPICAL CREAM 30 GM TUBE TP SCH ×2 (09:44→21:59)
[2019-06-28] MEDS: APIXABAN 5 MG TABLET PO SCH ×2 (09:44→21:56)
[2019-06-28] MEDS: PRENATAL VITAMINS W/ FOLIC ACID TABLET (FP) PO SCH (09:44)
[2019-06-28] MEDS: amLODIPine BESYLATE 5 MG TABLET (FP) PO SCH (09:44)
--- NOTE | 2019-06-28 12:17 | PN ---
[facility] Progress Note Note: Psychiatric nurse practitioner note: Patient scheduled for discharge tomorrow. A 30 day prescription of Mirtazapine 30mg HS was electronically sent to [facility] at [address] [place] [address].
[2019-06-28] MEDS: MELATONIN 5 MG TABLETS PO PRN (21:56)
[2019-06-28] MEDS: MIRTAZAPINE 30 MG TABLET (FP) PO SCH (21:57)
[2019-06-28] MEDS: THIAMINE HCL 100 MG TABLET (FP) PO SCH (21:57)
[2019-06-28] MEDS: P-EPHED 60MG/TRIPROLIDI 2.5MG TABLET PO PRN (21:58)
[2019-06-29] MEDS: P-EPHED 60MG/TRIPROLIDI 2.5MG TABLET PO PRN (06:09)
[2019-06-29] MEDS: METHOCARBAMOL 500 MG TABLET PO PRN (06:09)
[2019-06-29 07:09] VITALS: TEMP 98.2
--- NOTE | 2019-06-29 08:45 | DS ---
[facility] Rehab Discharge Summary - [facility] Rehab Discharge Summary Admission Date: 06/12/19 Discharge Date: 06/29/19 - History Present History: Alcohol dependence, Cannabis dependence, Cocaine dependence, PCP dependence Additional Comments: Pt is a 48 y/o female with a hx of MARIELLE admitted to rehab and scheduled to discharge today. Pt has been referred to [facility] Aftercare facility on [address] [place] [address]. Pt reports she had in the past been recommended to follow up with primary care with [facility] on [place], [place] for medical management. Pt has been instructed to follow up at this clinic after discharge. Pertinent Past History: HTN(on med) Hx DVT(on med) Hx Abnormal EKGs Anemia GERD Old CVA Mood disorder - Discharge Physical Exam Vital Signs: Vital Signs Temperature 98.2 F 06/29/19 07:08 Pulse Rate 88 06/29/19 07:08 Respiratory Rate 18 06/29/19 07:08 Blood Pressure 120/82 06/29/19 07:08 O2 Sat by Pulse Oximetry (%) Alert o x 3,denies s/h/i nad oob ambulating with steady gait cardiac:s1 s1,rrr Lungs:cta,paulette. abdomen:soft,+bs,nt,nd extremities/skin:no edema,full ROM/weight bearing;skin intact. Pertinent Admission Physical Exam Findings: Stable and unremarkable - Treatment Discharge Condition: Discharge condition good Hospital Course: rehabilitated safely and responded well aftercare referral accepted - Medication Discharge Medications: Ambulatory Orders Melatonin 5 mg PO HS PRN #30 tab 05/06/19 Mirtazapine [Remeron -] 15 mg PO HS 06/12/19 Mirtazapine [Remeron -] 30 mg PO HS #30 tablet 06/28/19 Amlodipine Besylate [Norvasc -] 5 mg PO DAILY #30 tablet 06/29/19 Apixaban [Eliquis -] 5 mg PO BID #30 tablet 06/29/19 Apixaban [Eliquis] 5 mg PO BID #30 tablet 06/29/19 - Medication-Assisted Treatment (MAT) Medication-Assisted Treatment (MAT): No - Discharge Instructions Diet, activity, other medical instructions: Diet:DASH Activity: oob ad iwona Other medical instructions:follow up with primary care at [place] for medical management. Follow up with [facility] aftercare referral as recommended and scheduled. - Diagnosis (1) Alcohol dependence Status: Chronic Qualifiers: Substance use status: uncomplicated Qualified Code(s): F10.20 - Alcohol dependence, uncomplicated (2) Anemia Status: Chronic (3) Cannabis dependence Status: Chronic (4) Cocaine dependence Status: Chronic Qualifiers: Substance use status: uncomplicated Qualified Code(s): F14.20 - Cocaine dependence, uncomplicated (5) History of abnormal electrocardiogram Status: Chronic (6) History of deep venous thrombosis Status: Chronic (7) Hypertension Status: Chronic Qualifiers: Hypertension type: essential hypertension Qualified Code(s): I10 - Essential (primary) hypertension (8) Nicotine dependence Status: Chronic Qualifiers: Nicotine product type: cigarettes Substance use status: uncomplicated Qualified Code(s): F17.210 - Nicotine dependence, cigarettes, uncomplicated (9) Old cerebrovascular accident (CVA) without late effect Status: Resolved - Follow-up Referral Minutes to complete discharge: 20 - AMA Did Patient Leave Against Medical Advice: No Additional Comments: Courtesy Rx for Eliquis 5 mg po BID for #60 for 30 days and Amlodipine 5 mg po daily #30 for 30 days sent to [facility] for flower 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 Pt reminded to follow up with primary care for medical management. Addendum: Pt reports she was instructed by previous providers to follow up with colonoscopy for hx of colon polyps in October of 2018 with [facility] but never followed up. Encouraged patient to follow up with recommendation.
[2019-06-29] MEDS: amLODIPine BESYLATE 5 MG TABLET (FP) PO SCH (09:34)
[2019-06-29] MEDS: PRENATAL VITAMINS W/ FOLIC ACID TABLET (FP) PO SCH (09:34)
[2019-06-29] MEDS: APIXABAN 5 MG TABLET PO SCH (09:34)
[2019-06-29] MEDS: HYDROCORTISONE 2.5% TOPICAL CREAM 30 GM TUBE TP SCH (09:34)
[2019-06-29 09:37] VITALS: BP 140/101; PULSE 105
== END 2019-06-29 09:56 | disposition home or self-care (01) | DRG 772 ==
LOC: YASAS 11:51 → Y3E 11:53
PROVIDERS: ADMIT Neuromusculoskeletal Medicine & OMM; ATTEND Neuromusculoskeletal Medicine & OMM
PROC: HZ42ZZZ Group Counseling for Substance Abuse Treatment, Cognitive-Behavioral (ICD-10-PCS; principal; 2019-06-12)
DX: F10.20 Alcohol dependence, uncomplicated (principal); F14.20 Cocaine dependence, uncomplicated; F16.20 Hallucinogen dependence, uncomplicated; F12.20 Cannabis dependence, uncomplicated; F17.210 Nicotine dependence, cigarettes, uncomplicated; F39 Unspecified mood [affective] disorder; F41.9 Anxiety disorder, unspecified; D64.9 Anemia, unspecified; I10 Essential (primary) hypertension; K21.9 Gastro-esophageal reflux disease without esophagitis; G47.00 Insomnia, unspecified; I69.854 Hemiplegia and hemiparesis following other cerebrovascular disease affecting left non-dominant side; J45.909 Unspecified asthma, uncomplicated; R94.31 Abnormal electrocardiogram [ECG] [EKG]; Z90.49 Acquired absence of other specified parts of digestive tract; Z96.651 Presence of right artificial knee joint; Z87.440 Personal history of urinary (tract) infections; Z91.5 Personal history of self-harm; Z90.81 Acquired absence of spleen; Z86.718 Personal history of other venous thrombosis and embolism; Z79.01 Long term (current) use of anticoagulants; Z91.048 Other nonmedicinal substance allergy status

== ENCOUNTER 2020-03-24 12:53 | Emergency (ER) | payer OTHER ==
[2020-03-24 13:06] VITALS: TEMP 99.1; BMI 31.6
--- NOTE | 2020-03-24 14:02 | PDOC ---
History of Present Illness - General Chief Complaint: Pain Stated Complaint: STOMACH PAIN (BLOATING) Time Seen by Provider: 03/24/20 13:32 History Source: Patient, Old Records Exam Limitations: No Limitations - History of Present Illness Initial Comments: 03/24/20 14:02 Mariann Anthony is a 49F with PMH alcohol/marijuana/cocaine use disorder, DVT, splenic infarcts, presenting with complain of increased abdominal fullness and weight gain. Patient recently discharged from [facility] rehab, denies using any alcohol or drugs since then. Prior to rehab drank 4-5 large bottles of beer daily. For the last two months has been slowly gaining weight with unclear reason, says she started rehab at ~140lbs and is now closer to 220lbs. Denies any history of liver/renal/cardiac disease. Denies any abdominal pain or N/V, just says she has had a lot of discomfort trying to walk around and get up from bed due to the increased weight. LMP was 3 years ago, denies being or any recent sexual activity, denies vaginal bleeding/discharge, denies urinary retention. PO intake good, last BM this morning without any abnormalities. Denies any other symptoms. Past History - Medical History Allergies/Adverse Reactions: Allergies Allergy/AdvReac Type Severity Reaction Status Date / Time beeswax Allergy Severe Difficulty Verified 03/24/20 13:06 Breathing coconut oil Allergy Severe Itching Verified 03/24/20 13:06 No Known Drug Allergies Allergy Verified 03/24/20 13:06 Home Medications: Ambulatory Orders Melatonin 5 mg PO HS PRN #30 tab 05/06/19 Mirtazapine [Remeron -] 15 mg PO HS 06/12/19 Mirtazapine [Remeron -] 30 mg PO HS #30 tablet 06/28/19 Amlodipine Besylate [Norvasc -] 5 mg PO DAILY #30 tablet 06/29/19 Apixaban [Eliquis -] 5 mg PO BID #30 tablet 06/29/19 Apixaban [Eliquis] 5 mg PO BID #30 tablet 06/29/19 Anemia: Yes (Not on med) Asthma: No Cancer: No (DUODENAL TUBULAR ADENOMA) Cardiac Disorders: Yes (Heart murmur) CVA: Yes (2002 RESOLVED WITHOUT ANY COMPLICATIONS) COPD: No CHF: No DVT: No Dementia: No Diabetes: No GI Disorders: No Disorders: No HTN: Yes Hypercholesterolemia: No Kidney Stones: No Liver Disease: Yes (FATTY LIVER) Seizures: No Thyroid Disease: No - Surgical History Abdominal Surgery: Yes (hernia repair) Appendectomy: Yes (Laparascopic Surgery in September 2018) Cardiac Surgery: No Cholecystectomy: No Lung Surgery: No Neurologic Surgery: No Orthopedic Surgery: Yes (right knee, 07/29/2015 [facility]) - Reproductive History Is Patient Now?: No PID: No - Immunization History Immunization Up to Date: Yes - Psycho-Social/Smoking History Smoking Status: No Smoking History: Current every day smoker Have you smoked in the past 12 months: No Number of Cigarettes Smoked Daily: 10 Cigars Per Day: 0 Information on smoking cessation initiated: No 'Breaking Loose' booklet given: 05/25/18 - Substance Abuse Hx (Audit-C & DAST Scrn) How often the patient has a drink containing alcohol: Never Score: In Men: 4 or > Positive; In Women: 3 or > Positive: 0 Screen Result (Pos requires Nsg. Audit-10AR): Negative In the last yr the pt used illegal drug/Rx for NonMed reason: No Score: Yes response is considered Positive: 0 Screen Result (Positive result requires Nsg. DAST-10): Negative Review of Systems - Review of Systems Able to Perform ROS?: Yes Constitutional: No: Loss of Appetite HEENTM: No: Symptoms Reported Respiratory: No: Symptoms reported Cardiac (ROS): No: Symptoms Reported ABD/GI: Yes: Abdominal Distended : No: Symptoms Reported Musculoskeletal: No: Symptoms Reported Integumentary: No: Symptoms Reported Neurological: No: Symptoms reported Endocrine: Yes: Unexplained Weight Gain Hematologic/Lymphatic: No: Symptoms Reported All Other Systems: Reviewed and Negative *Physical Exam - Vital Signs Last Vital Signs Temp Pulse Resp BP Pulse Ox 99.1 F 75 18 106/73 98 03/24/20 13:02 03/24/20 13:02 03/24/20 13:02 03/24/20 13:02 03/24/20 13:02 - Physical Exam General Appearance: Yes: Nourished, Appropriately Dressed, Obese, Other (resting in bed watching TV on iPad, in NAD, good spirits). No: Apparent Distress HEENT: positive: EOMI, JOSE, Normal Voice, Symmetrical, TMs Normal, Pharynx N ormal, Hearing Grossly Normal. negative: Scleral Icterus (R), Pharyngeal Erythema, Tonsillar Exudate, Tonsillar Erythema Neck: positive: Normal Thyroid, Supple, Other (no JVD). negative: Tender, Rigid, Lymphadenopathy (R), Lymphadenopathy (L) Respiratory/Chest: positive: Lungs Clear, Normal Breath Sounds. negative: Chest Tender, Respiratory Distress, Accessory Muscle Use, Crackles, Rales, Rhonchi, Stridor, Wheezing Cardiovascular: positive: Regular Rhythm, Regular Rate Gastrointestinal/Abdominal: positive: Normal Bowel Sounds, Soft, Protuberent, Other (abdomen is large but does not feel gravid, no fluid wave detected, no organomegaly, non-tender). negative: Tender, Organomegaly, Pulsatile Mass, Distended, Guarding, Rebound Musculoskeletal: positive: Normal Inspection, Decreased Range of Motion. negative: CVA Tenderness, Vertebral Tenderness Extremity: positive: Normal Capillary Refill, Normal Inspection, Normal Range of Motion, Other (no evidence of fluid overload on inspection). negative: Tender, Pedal Edema, Swelling, Calf Tenderness Integumentary: positive: Normal Color, Dry, Warm Neurologic: positive: Fully Oriented, Alert, Normal Mood/Affect, Normal Response, Motor Strength 5/5, Other (gait normal) ED Treatment Course - LABORATORY CBC & Chemistry Diagram: 03/24/20 14:38 03/24/20 15:15 Medical Decision Making - Medical Decision Making 03/24/20 17:56 Patient presents with a few months of weight gain and abdominal fullness, here for an evaluation as patient is having a hard time moving around and is concerned about weight gain. Has known history of EtOH use disorder s/p rehab, but drank 4-5 large bottles of beer prior to rehab. LMP 3 years ago, denies , low suspicion of gravid abdomen on exam, non-tender. Denies chest or abdominal pain, urinary sx, constipation. Evaluating for causes of ascites including hepatic, cardiac, and renal via CBC/CMP/Coags/UA/UC/BNP/ECG/serum preg, as well as abdominal US for ascites eval. Labs notable for: - CBC WNL - AP 235 - BMP WNL - UA clean - BNP WNL - negative - Coags WNL ECG shows NSR with significant artifact, HR 83, QTc 472, no clear MELISSA/D but has non-specific biphasic T waves in V1-V6. 03/24/20 18:06 Abdominal US shows no evidence of ascites or masses causing enlarged abdomen. No specific pathology noted that could be causing weight gain. Consider normal fatty weight gain in the setting of cessation of drug use, possible non-emergent endocrine disease. Weight gain can be safely followed-up with PMD. Stable for discharge home with GI f/u and PMD f/u for further evaluation. Discharge - Discharge Information Problems reviewed: Yes Clinical Impression/Diagnosis: Abdominal fullness, Weight gain Condition: Stable Disposition: HOME - Admission No - Follow up/Referral Referrals: Funmi Alonzo MD [Staff Physician] - Elver Oropeza MD [Staff Physician] - Raul Cullen MD [Staff Physician] - [facility] [place] Group] - Patient Discharge Instructions Additional Instructions: Today you were evaluated for increased abdominal size and weight gain. Your labs do not show any problems in your kidneys or liver, and your ultrasound does not show any fluid in your belly. The cause of your weight gain is unknown, but you do not seem to have any diseases that could be causing your weight gain. You should see a primary care doctor for further care, and a referral to other GI doctors as been given for follow-up of your weight gain. If you experience any abdominal pain, fevers, diarrhea, or any other new or concerning symptoms, please return to the emergency room. - Post Discharge Activity
[2020-03-24 15:33] LABS: BASO % 0.3 % (0-2.0); EOS % 3.8 % (0-4.5); HEMATOCRIT 34.3 % (32.4-45.2); LYMPH % 40.4 % (8-40); MCH 28.3 pg (25.7-33.7); MEAN CELL VOLUME 88.3 fl (80-96); MEAN PLT VOLUME 7.7 fl (7.5-11.1); MONO % 6.1 % (3.8-10.2); NEUT % 49.4 % (42.8-82.8); PLATELET COUNT 307 K/MM3 (134-434); RBC 3.88 M/mm3 (3.60-5.2); RDW 14.5 % (11.6-15.6); WHITE BLOOD COUNT 6.3 K/mm3 (4.0-10.0)
[2020-03-24 15:35] LABS: INR 1.1 (0.83-1.09)
[2020-03-24 15:38] LABS: ACTIVATED PTT 36.7 SECONDS (25.2-36.5)
[2020-03-24 15:53] LABS: ALBUMIN 3.6 g/dl (3.4-5.0); BILIRUBIN,TOTAL 0.4 mg/dL (0.2-1); BLOOD UREA NITROGEN 11.8 mg/dL (7-18); CALCIUM 8.8 mg/dL (8.5-10.1); POTASSIUM 4.1 mmol/L (3.5-5.1); TOT PROT 8.5 g/dl (6.4-8.2)
[2020-03-24 16:33] LABS: URINE APPEARANCE CLOUDY; URINE BILIRUBIN NEGATIVE (NEGATIVE); URINE COLOR YELLOW; URINE GLUCOSE (UA) NEGATIVE (NEGATIVE); URINE KETONE NEGATIVE (NEGATIVE); URINE LEUK ESTERASE NEGATIVE (NEGATIVE); URINE NITRITE NEGATIVE (NEGATIVE); URINE PROTEIN NEGATIVE (NEGATIVE)
--- NOTE | 2020-03-24 17:12 | PDOC ---
Documentation entered by Aga Arechiga SCRIBE, acting as scribe for Antione Mcbride MD. Antione Mcbride MD: This documentation has been prepared by the efrenibeHawk Lincy, SCRIBE, under my direction and personally reviewed by me in its entirety. I confirm that the documentation accurately reflects all work, treatment, procedures, and medical decision making performed by me. Attending Attestation - Resident Resident Name: AkiramercedesRavinder - ED Attending Attestation I have performed the following: I have examined & evaluated the patient, The case was reviewed & discussed with the resident, I agree w/resident's findings & plan, Exceptions are as noted - HPI HPI: 03/24/20 16:07 The patient is a 49-year-old female with a past medical history significant for chronic alcoholic (with multiple rehab admission), DVT (on Eliquis), duodenal tubular adenoma, HTN, and splenic infarcts who presents to the emergency department with abdominal distention and weight gain. The patient presents with a few months of abdominal distention associated with 80ib weight gain and intermittent episodes of abdominal pressure. Denies abdominal pain, fever, chills, nausea, vomiting, diarrhea. Denies leg or arm swelling. - Physicial Exam PE: 03/24/20 15:52 GENERAL: The patient is awake, alert, and fully oriented, Nontoxic - in no acute distress. HEAD: Normocephalic, atraumatic. EYES: extraocular movements intact, sclera anicteric, conjunctiva clear. ENT: Normal voice, Moist mucous membranes. NECK: Normal range of motion, supple LUNGS: Breath sounds equal, clear to auscultation bilaterally. No wheezes, no rhonchi, no rales. HEART: Regular rate and rhythm, normal S1 and S2 without murmur, rub or gallop. ABDOMEN: Distended abdomen, no focal tenderness, no rebound or guarding, no CVA tenderness EXTREMITIES: Normal range of motion, no edema. NEUROLOGICAL: No facial assymetry, Normal speech, PSYCH: Normal mood, normal affect. SKIN: Warm, Dry, normal turgor, - Medical Decision Making 03/24/20 14:04 49y F hx of htn, polysubstance abuse (etoh, cocaine), presents with complaint of abdominal distension and weight gain for the past few months, without associated pain, cp, sob, n/v, f/c, urinary or bowel symptoms. LMP 3 years ago 03/24/20 14:07 ddx for abd distnsion includes possible , aceties, Obtain ultrasound to screen for ascites 03/24/20 18:13 pts US without signs of ascites labs reviewd pt feeling well, asymptmoatic will dc w pmd and gi fu return precuations were discussed I discussed the physical exam findings, ancillary test results and final diagnoses with the patient. I answered all of the patient's questions. The patient was satisfied with the care received and felt comfortable with the discharge plan and treatment plan. The patient will call their primary care physician within 24 hours to arrange follow-up and will return to the Emergency Department with any new, persistent or worsening symptoms. Discharge - Discharge Information Problems reviewed: Yes Clinical Impression/Diagnosis: Abdominal fullness, Weight gain Condition: Stable Disposition: HOME - Follow up/Referral Referrals: [facility] [place] Group] Funmi Alonzo MD [Staff Physician] - Elver Oropeza MD [Staff Physician] - Raul Cullen MD [Staff Physician] - - Patient Discharge Instructions Additional Instructions: Today you were evaluated for increased abdominal size and weight gain. Your labs do not show any problems in your kidneys or liver, and your ultrasound does not show any fluid in your belly. The cause of your weight gain is unknown, but you do not seem to have any diseases that could be causing your weight gain. You should see a primary care doctor for further care, and a referral to other GI doctors as been given for follow-up of your weight gain. If you experience any abdominal pain, fevers, diarrhea, or any other new or concerning symptoms, please return to the emergency room. - Post Discharge Activity
[2020-03-24 18:43] VITALS: BP 114/81; PULSE 83
--- NOTE | 2020-03-25 11:06 | EKG ---
Test Reason : Blood Pressure : / mmHG Vent. Rate : 083 BPM Atrial Rate : 083 BPM P-R Int : 198 ms QRS Dur : 084 ms QT Int : 402 ms P-R-T Axes : 059 071 061 degrees QTc Int : 472 ms POOR DATA QUALITY, INTERPRETATION MAY BE ADVERSELY AFFECTED NORMAL SINUS RHYTHM NONSPECIFIC ST AND T WAVE ABNORMALITY PROLONGED QT ABNORMAL ECG Confirmed by GAMAL MCNULTY MD ([id number]) on 03/25/2020 11:06:33 AM Referred By: Confirmed By:GAMAL MCNULTY MD
== END 2020-03-24 18:45 | disposition home or self-care (01) ==
LOC: JER 12:53
DX: R10.9 Unspecified abdominal pain (principal)
CPT/HCPCS: 36415; 76700-TC; 80053; 81003; 83880; 84703; 85025; 85610; 85730; 87086; 93005; 93010; 99285-25

== ENCOUNTER 2021-07-11 08:50 | Emergency (ER) | payer OTHER ==
[2021-07-11 09:31] VITALS: BP 111/90; PULSE 92; TEMP 98.9; BMI 26.2
[2021-07-11] MEDS ORDERED: MAG HYDROX/AL HYDROX/SIMETH 30 ML UNIT-DOSE CUP PO ONE (10:06)
[2021-07-11] MEDS ORDERED: ONDANSETRON 4 MG/2 ML VIAL IVPUSH ONE (10:06)
[2021-07-11] MEDS ORDERED: FAMOTIDINE 20 MG/50 ML IVPB 20 MG/50 ML MG IVPB ONE ×2 (10:06→12:59)
[2021-07-11] MEDS ORDERED: SODIUM CHLORIDE 1,000 ML IV STA (10:09)
[2021-07-11] MEDS ORDERED: ONDANSETRON 4 MG/2 ML VIAL ONE ×2 (12:59→14:35)
[2021-07-11] MEDS ORDERED: MAG HYDROX/AL HYDROX/SIMETH 30 ML UNIT-DOSE CUP ONE (12:59)
[2021-07-11 14:33] LABS: HEMATOCRIT 38.8 % (32.4-45.2); HEMOGLOBIN 12.7 GM/dL (10.7-15.3); MCH 30.7 pg (25.7-33.7); MCHC 32.8 g/dl (32.0-36.0); MEAN CELL VOLUME 93.7 fl (80-96); MEAN PLT VOLUME 8.2 fl (7.5-11.1); PLATELET COUNT 275 10^3/uL (134-434); RBC 4.14 M/mm3 (3.60-5.2); RDW 16.5 % (11.6-15.6)
[2021-07-11 14:57] LABS: CALCIUM 9.4 mg/dL (8.5-10.1)
[2021-07-11 14:58] LABS: ALBUMIN 3.6 g/dl (3.4-5.0); BLOOD UREA NITROGEN 11.4 mg/dL (7-18)
[2021-07-11 15:01] LABS: CREATININE 0.7 mg/dL (0.55-1.3)
[2021-07-11 15:03] LABS: BILIRUBIN,TOTAL 0.6 mg/dL (0.2-1); TOT PROT 8.8 g/dl (6.4-8.2)
[2021-07-11] MEDS ORDERED: MECLIZINE HCL 25 MG TABLET (FP) PO ONE (16:38)
[2021-07-11] MEDS ORDERED: MECLIZINE HCL 25 MG TABLET (FP) ONE (16:57)
== END 2021-07-11 17:00 | disposition home or self-care (01) ==
LOC: JER 08:50
PROC: 3E033GC Introduction of Other Therapeutic Substance into Peripheral Vein, Percutaneous Approach (ICD-10-PCS; principal; 2021-07-11)
DX: R11.2 Nausea with vomiting, unspecified (principal)
CPT/HCPCS: 36415; 80053; 80307; 82550; 82553; 83690; 84484; 85027; 93005; 93010; 99284-25

== ENCOUNTER → 2021-10-30 | Emergency (ER) | payer OTHER ==
[~2021-10-30] MED LIST changes: -ACETAMINOPHEN 325 MG TABLET (FP) PO ONE; +ACETAMINOPHEN 500 MG TABLET (FP) PO ONE; -FOLIC ACID INJECTION - 1 MG, THIAMINE HCL 100 MG, MULTIVIT INJECTION ADULT 10 ML in SOD... IVPB ONE; -LEVOFLOXACIN 500 MG IVPB 100 ML IVPB ONE; -MAGNESIUM SULF 50% (8.12 MEQ/2 ML-1 GM VIAL) IVPB ONE; -MAGNESIUM SULF 50% (8.12 MEQ/2 ML-1 GM VIAL) ONE; +METOCLOPRAMIDE HCL INJECTION 10 MG/2 ML VIAL IVPB ONE; +METOCLOPRAMIDE HCL INJECTION 10 MG/2 ML VIAL ONE; +ONDANSETRON 4 MG/2 ML VIAL IVPUSH ONE; +ONDANSETRON 4 MG/2 ML VIAL ONE; -POTASSIUM CHLORIDE 20 MEQ PREMIX IVPB 100 ML IVPB ONE; -POTASSIUM CHLORIDE TABS 20 MEQ TABLET.ER (FP) PO ONE; -SODIUM CHLORIDE 0.9% 1000 ML INFUS.BAG IV ONE; +SODIUM CHLORIDE 1,000 ML IV STA; +SODIUM CHLORIDE 500 ML IV STA; -SULFAMETHOXAZOLE/TRIMETHOPRIM 800MG/160MG D.S. TABLET ONE; -SULFAMETHOXAZOLE/TRIMETHOPRIM 800MG/160MG D.S. TABLET PO ONE
[2021-10-30 19:37] VITALS: BMI 27.3
[2021-10-30 22:47] LABS: EPI CELLS >36 /uL (0-25.1); HYALINE CASTS 3 /uL (0-3.1); URINE APPEARANCE CLEAR; URINE BACTERIA 1512 /uL (0-1359); URINE BILIRUBIN NEGATIVE (NEGATIVE); URINE COLOR YELLOW; URINE GLUCOSE (UA) NEGATIVE (NEGATIVE); URINE KETONE TRACE (NEGATIVE); URINE LEUK ESTERASE 1+ (NEGATIVE); URINE NITRITE NEGATIVE (NEGATIVE); URINE PROTEIN NEGATIVE (NEGATIVE); URINE RBC 6 /uL (0-23.9); URINE WBC 211 /uL (0-25.8)
[2021-10-30 23:41] LABS: BASO % 0.6 % (0-2.0); EOS % 1.6 % (0-4.5); HEMATOCRIT 40.2 % (32.4-45.2); HEMOGLOBIN 13.6 GM/dL (10.7-15.3); LYMPH % 54.2 % (8-40); MCH 32.8 pg (25.7-33.7); MCHC 33.8 g/dl (32.0-36.0); MEAN CELL VOLUME 96.9 fl (80-96); MEAN PLT VOLUME 9.5 fl (7.5-11.1); MONO % 7.1 % (3.8-10.2); NEUT % 36.5 % (42.8-82.8); PLATELET COUNT 187 10^3/uL (134-434); RBC 4.15 M/mm3 (3.60-5.2); RDW 15.4 % (11.6-15.6); WHITE BLOOD COUNT 4.6 K/mm3 (4.0-10.0)
[2021-10-31 00:04] LABS: ALBUMIN 3.6 g/dl (3.4-5.0); BLOOD UREA NITROGEN 4.9 mg/dL (7-18); CALCIUM 8.9 mg/dL (8.5-10.1); MAGNESIUM 2.2 mg/dL (1.8-2.4)
[2021-10-31 00:07] LABS: CREATININE 0.8 mg/dL (0.55-1.3)
[2021-10-31 00:09] LABS: BILIRUBIN,TOTAL 0.9 mg/dL (0.2-1); TOT PROT 9.2 g/dl (6.4-8.2)
[2021-10-31 02:03] VITALS: BP 134/81; PULSE 64; TEMP 97.9
== END | disposition home or self-care (01) ==
LOC: JERFT 19:20 → JER 19:20
PROC: 3E033GC Introduction of Other Therapeutic Substance into Peripheral Vein, Percutaneous Approach (ICD-10-PCS; principal; 2021-10-30)
PROC: 3E033GC Introduction of Other Therapeutic Substance into Peripheral Vein, Percutaneous Approach (ICD-10-PCS; 2021-10-30)
PROC: 3E0337Z Introduction of Electrolytic and Water Balance Substance into Peripheral Vein, Percutaneous Approach (ICD-10-PCS; 2021-10-30)
PROC: 3E0337Z Introduction of Electrolytic and Water Balance Substance into Peripheral Vein, Percutaneous Approach (ICD-10-PCS; 2021-10-30)
DX: R19.7 Diarrhea, unspecified (principal); R10.32 Left lower quadrant pain; R11.2 Nausea with vomiting, unspecified
CPT/HCPCS: 36415; 74177-TC; 80053; 81003; 83690; 83735; 85025; 87045; 87046; 87324; 87449; 93005; 93010; 96361; 96374; 96375; 99285-25

== ENCOUNTER 2021-11-21 20:20 | Inpatient (IN) | payer OTHER ==
[2021-11-21] MEDS ORDERED: P-EPHED 60MG/TRIPROLIDI 2.5MG TABLET PO PRN (21:31)
[2021-11-21] MEDS ORDERED: MAGNESIUM CITRATE 300 ML BOTTLE PO PRN (21:31)
[2021-11-21] MEDS ORDERED: MAGNESIUM HYDROX 2400MG/30ML ORAL SUSPENSION 30 ML CUP PO PRN (21:31)
[2021-11-21] MEDS ORDERED: BENZOCAINE/MENTHOL (CHLORASEPTIC ) LOZENGE MM PRN (21:31)
[2021-11-21] MEDS ORDERED: IBUPROFEN 400 MG TABLET (FP) PO PRN (21:31)
[2021-11-21] MEDS ORDERED: guaiFENesin 200 MG/10 ML 10 ML UNIT-DOSE CUPS PO PRN (21:31)
[2021-11-21] MEDS ORDERED: LOPERAMIDE HCL 2 MG CAPSULE PO PRN (21:31)
[2021-11-21] MEDS ORDERED: ONDANSETRON *ODT* 4 MG TABLET SL PRN (21:31)
[2021-11-21] MEDS ORDERED: MAG HYDROX/AL HYDROX/SIMETH 30 ML UNIT-DOSE CUP PO PRN (21:31)
[2021-11-21] MEDS ORDERED: ACETAMINOPHEN 325 MG TABLET (FP) PO PRN ×2 (21:31)
[2021-11-21] MEDS ORDERED: BISMUTH SUBSALICYLATE 524 MG/30 ML PO PRN (21:31)
[2021-11-21] MEDS ORDERED: DICYCLOMINE HCL 10 MG CAPSULE PO PRN (21:31)
[2021-11-21] MEDS ORDERED: hydrOXYzine PAMOATE 25 MG CAPSULE (FP) PO PRN (21:31)
[2021-11-21 23:58] VITALS: BMI 33.0
[2021-11-22] MEDS: THIAMINE HCL 100 MG TABLET (FP) PO SCH ×2 (01:11→22:21)
[2021-11-22] MEDS: MELATONIN 5 MG TABLETS PO SCH (01:11)
[2021-11-22] MEDS ORDERED: LAMOTRIGINE 100 MG PO SCH (10:00)
[2021-11-22] MEDS: hydrOXYzine PAMOATE 50 MG CAPSULE (FP) PO SCH ×2 (10:09→22:21)
[2021-11-22] MEDS: busPIRone HCL 5 MG TABLET PO SCH ×2 (10:09→22:21)
[2021-11-22] MEDS: ESCITALOPRAM OXALATE 20 MG TABLET PO SCH (10:09)
[2021-11-22] MEDS: PRENATAL VITAMINS W/ FOLIC ACID TABLET (FP) PO SCH (10:10)
[2021-11-22] MEDS: lamoTRIgine 25 MG TABLET PO SCH (11:33)
[2021-11-22 12:17] LABS: HEMATOCRIT 41.4 % (32.4-45.2); HEMOGLOBIN 13.5 GM/dL (10.7-15.3); MCH 32.5 pg (25.7-33.7); MCHC 32.5 g/dl (32.0-36.0); MEAN CELL VOLUME 99.8 fl (80-96); MEAN PLT VOLUME 9.6 fl (7.5-11.1); PLATELET COUNT 180 10^3/uL (134-434); RBC 4.14 M/mm3 (3.60-5.2); RDW 16.2 % (11.6-15.6); WHITE BLOOD COUNT 3.6 K/mm3 (4.0-10.0)
[2021-11-22 12:18] LABS: URINE APPEARANCE CLOUDY; URINE BILIRUBIN NEGATIVE (NEGATIVE); URINE COLOR DK YELLOW; URINE GLUCOSE (UA) NEGATIVE (NEGATIVE); URINE KETONE TRACE (NEGATIVE); URINE LEUK ESTERASE NEGATIVE (NEGATIVE); URINE NITRITE NEGATIVE (NEGATIVE); URINE PROTEIN NEGATIVE (NEGATIVE); URINE UROBILINOGEN 0.2 mg/dL (0.2-1.0)
[2021-11-22 12:29] LABS: BLOOD UREA NITROGEN 4.1 mg/dL (7-18)
[2021-11-22 12:32] LABS: CREATININE 0.7 mg/dL (0.55-1.3)
[2021-11-22 12:33] LABS: BILIRUBIN,TOTAL 0.7 mg/dL (0.2-1); TOT PROT 8.4 g/dl (6.4-8.2)
[2021-11-22] MEDS ORDERED: LORazepam 1 MG TABLET PO PRN (16:33)
[2021-11-22] MEDS: LORazepam 2 MG TABLET PO SCH ×2 (18:03→22:21)
[2021-11-22] MEDS: METHOCARBAMOL 500 MG TABLET PO PRN (18:04)
[2021-11-23] MEDS: LORazepam 1 MG TABLET PO SCH ×4 (06:26→22:13)
[2021-11-23] MEDS: lamoTRIgine 25 MG TABLET PO SCH (10:00)
[2021-11-23] MEDS: ESCITALOPRAM OXALATE 20 MG TABLET PO SCH (10:00)
[2021-11-23] MEDS: busPIRone HCL 5 MG TABLET PO SCH ×2 (10:00→22:09)
[2021-11-23] MEDS: PRENATAL VITAMINS W/ FOLIC ACID TABLET (FP) PO SCH (10:00)
[2021-11-23] MEDS: hydrOXYzine PAMOATE 50 MG CAPSULE (FP) PO SCH ×2 (10:01→22:09)
[2021-11-23] MEDS: METHOCARBAMOL 500 MG TABLET PO PRN ×2 (10:01→22:09)
[2021-11-23] MEDS ORDERED: LOPERAMIDE HCL 2 MG CAPSULE PO ONE (13:15)
[2021-11-23 14:12] LABS: SARS-CoV-2 NAA Not Detected (Not Detected)
[2021-11-23 14:12] LABS: SARS-CoV-2 NAA Not Detected (Not Detected)
[2021-11-23] MEDS: THIAMINE HCL 100 MG TABLET (FP) PO SCH (22:09)
[2021-11-24] MEDS ORDERED: LORazepam 0.5 MG TABLET PO PRN
[2021-11-24] MEDS: LORazepam 0.5 MG TABLET PO SCH ×4 (06:17→22:19)
[2021-11-24] MEDS: hydrOXYzine PAMOATE 50 MG CAPSULE (FP) PO SCH ×2 (10:15→22:17)
[2021-11-24] MEDS: lamoTRIgine 25 MG TABLET PO SCH (10:15)
[2021-11-24] MEDS: ESCITALOPRAM OXALATE 20 MG TABLET PO SCH (10:15)
[2021-11-24] MEDS: PRENATAL VITAMINS W/ FOLIC ACID TABLET (FP) PO SCH (10:15)
[2021-11-24] MEDS: busPIRone HCL 5 MG TABLET PO SCH ×2 (10:15→22:16)
[2021-11-24] MEDS: METHOCARBAMOL 500 MG TABLET PO PRN (10:19)
[2021-11-24] MEDS ORDERED: TRIMETHOBENZAMIDE HCL 200MG/2ML INJ IM ONE (12:00)
[2021-11-24] MEDS: MELATONIN 5 MG TABLETS PO SCH (22:16)
[2021-11-24] MEDS: THIAMINE HCL 100 MG TABLET (FP) PO SCH (22:16)
[2021-11-25] MEDS ORDERED: LORazepam 0.5 MG TABLET PO ONE (05:00)
[2021-11-25 09:15] VITALS: BP 125/67; PULSE 69; TEMP 97.1
[2021-11-25] MEDS: ESCITALOPRAM OXALATE 20 MG TABLET PO SCH (09:46)
[2021-11-25] MEDS: hydrOXYzine PAMOATE 50 MG CAPSULE (FP) PO SCH (09:46)
[2021-11-25] MEDS: PRENATAL VITAMINS W/ FOLIC ACID TABLET (FP) PO SCH (09:46)
[2021-11-25] MEDS: busPIRone HCL 5 MG TABLET PO SCH (09:46)
[2021-11-25] MEDS: lamoTRIgine 25 MG TABLET PO SCH (10:44)
== END 2021-11-25 10:09 | disposition home or self-care (01) | DRG 775 ==
LOC: YASAS 20:20 → Y6N 21:56
PROVIDERS: ADMIT Allergy & Immunology; ATTEND Allergy & Immunology
PROC: HZ2ZZZZ Detoxification Services for Substance Abuse Treatment (ICD-10-PCS; principal; 2021-11-21)
DX: F10.230 Alcohol dependence with withdrawal, uncomplicated (principal); F12.20 Cannabis dependence, uncomplicated; F17.210 Nicotine dependence, cigarettes, uncomplicated; F31.81 Bipolar II disorder; F19.280 Other psychoactive substance dependence with psychoactive substance-induced anxiety disorder; F19.282 Other psychoactive substance dependence with psychoactive substance-induced sleep disorder; F19.24 Other psychoactive substance dependence with psychoactive substance-induced mood disorder; F41.9 Anxiety disorder, unspecified; F43.10 Post-traumatic stress disorder, unspecified; I10 Essential (primary) hypertension; K76.0 Fatty (change of) liver, not elsewhere classified; K21.9 Gastro-esophageal reflux disease without esophagitis; Z62.810 Personal history of physical and sexual abuse in childhood; Z56.0 Unemployment, unspecified; Z59.01 Sheltered homelessness
CPT/HCPCS: 36415; 80053; 81003; 85027; 86780; 93005; 93010; C9803-CS; Q0162; U0003; U0005

== ENCOUNTER 2023-08-02 09:24 | Emergency (ER) | payer OTHER ==
[2023-08-02 09:45] VITALS: BP 152/90; PULSE 74; RESP 17; TEMP 98.3; BMI 20.5
[2023-08-02] MEDS ORDERED: ACETAMINOPHEN 1000 MG/100 ML BAG IVPB ONE (10:13)
[2023-08-02] MEDS ORDERED: SODIUM CHLORIDE 0.9% 500 ML INFUS.BAG IV ONE (10:13)
[2023-08-02] MEDS ORDERED: ONDANSETRON 4 MG/2 ML VIAL IVPUSH ONE (10:13)
[2023-08-02] MEDS ORDERED: ONDANSETRON 4 MG/2 ML VIAL ONE (10:18)
[2023-08-02] MEDS ORDERED: ACETAMINOPHEN INJECTION 100 ML IVPB ONE (10:18)
[2023-08-02 13:04] LABS: CHLORIDE 90 mmol/L (98-107); SODIUM 128 mmol/L (136-145)
[2023-08-02 13:07] LABS: ALBUMIN 4.3 g/dl (3.4-5.0); BLOOD UREA NITROGEN 9.8 mg/dL (7-18); CALCIUM 10.1 mg/dL (8.5-10.1); CO2 25 mmol/L (21-32); GLUCOSE,RANDOM 100 mg/dL (74-106); LIPASE 61 U/L (73-393)
[2023-08-02 13:10] LABS: CREATININE 0.8 mg/dL (0.55-1.3); SGOT/AST 90 U/L (15-37)
[2023-08-02 13:11] LABS: BILIRUBIN,TOTAL 0.7 mg/dL (0.2-1)
[2023-08-02 13:12] LABS: TOT PROT 10.4 g/dl (6.4-8.2)
[2023-08-02] MEDS ORDERED: LACTATED RINGERS SOLUTION 1000 ML INFUS.BAG IV ONE (13:12)
[2023-08-02] MEDS ORDERED: METOCLOPRAMIDE HCL INJECTION 10 MG/2 ML VIAL IVPUSH ONE (13:12)
[2023-08-02 13:13] LABS: ALK PHOS 102 U/L (45-117)
[2023-08-02] MEDS ORDERED: morphine CARPU-JECT 2 MG/1 ML DISP.SYRIN IVPUSH ONE (13:13)
[2023-08-02 13:16] LABS: ANION GAP 13 mmol/L (4-13); POTASSIUM 6.3 mmol/L (3.5-5.1); SGPT/ALT 45 U/L (13-61)
[2023-08-02] MEDS ORDERED: METOCLOPRAMIDE HCL INJECTION 10 MG/2 ML VIAL ONE (13:28)
[2023-08-02 14:30] LABS: BASO % 0.3 % (0-2.0); EOS % 0.1 % (0-4.5); HEMATOCRIT 40.9 % (32.4-45.2); HEMOGLOBIN 13.6 GM/dL (10.7-15.3); LYMPH % 18.6 % (8-40); MCH 33.6 pg (25.7-33.7); MCHC 33.2 g/dl (32.0-36.0); MEAN CELL VOLUME 101.3 fl (80-96); MEAN PLT VOLUME 8.4 fl (7.5-11.1); PLATELET COUNT 236 10^3/uL (134-434); RBC 4.03 M/mm3 (3.60-5.2); RDW 13.3 % (11.6-15.6); WHITE BLOOD COUNT 5.7 K/mm3 (4.0-10.0)
[2023-08-02 14:35] LABS: EPI CELLS >36 /uL (0-25.1); HYALINE CASTS 16 /uL (0-3.1); URINE APPEARANCE TURBID; URINE BACTERIA >9,000 /uL (0-1359); URINE BILIRUBIN NEGATIVE (NEGATIVE); URINE COLOR YELLOW; URINE GLUCOSE (UA) NEGATIVE (NEGATIVE); URINE KETONE 3+ (NEGATIVE); URINE LEUK ESTERASE TRACE (NEGATIVE); URINE NITRITE NEGATIVE (NEGATIVE); URINE PROTEIN 1+ (NEGATIVE); URINE RBC 27 /uL (0-23.9); URINE UROBILINOGEN 0.2 mg/dL (0.2-1.0); URINE WBC 156 /uL (0-25.8)
[2023-08-02 14:55] LABS: POTASSIUM 3.9 mmol/L (3.5-5.1)
[2023-08-02 14:56] LABS: BLOOD UREA NITROGEN 7.7 mg/dL (7-18); CALCIUM 9.5 mg/dL (8.5-10.1)
[2023-08-02 15:00] LABS: CREATININE 0.6 mg/dL (0.55-1.3)
[2023-08-02 15:19] LABS: COCAINE, UR NEGATIVE (NEGATIVE); METHADONE, UR NEGATIVE (NEGATIVE); OPIATES, URI NEGATIVE (NEGATIVE); URINE AMPHETAMINES NEGATIVE (NEGATIVE); URINE BARBITURATES NEGATIVE (NEGATIVE)
[2023-08-02 15:20] LABS: PHENCYCLIDINE,URINE NEGATIVE (NEGATIVE); URINE BENZODIAZEPINES NEGATIVE (NEGATIVE)
== END 2023-08-02 19:01 | disposition home or self-care (01) ==
LOC: JER 09:24
PROC: 3E033GC Introduction of Other Therapeutic Substance into Peripheral Vein, Percutaneous Approach (ICD-10-PCS; principal; 2023-08-02)
PROC: 3E033NZ Introduction of Analgesics, Hypnotics, Sedatives into Peripheral Vein, Percutaneous Approach (ICD-10-PCS; 2023-08-02)
PROC: 3E033GC Introduction of Other Therapeutic Substance into Peripheral Vein, Percutaneous Approach (ICD-10-PCS; 2023-08-02)
PROC: 3E033GC Introduction of Other Therapeutic Substance into Peripheral Vein, Percutaneous Approach (ICD-10-PCS; 2023-08-02)
DX: R11.2 Nausea with vomiting, unspecified (principal); R10.30 Lower abdominal pain, unspecified; F12.188 Cannabis abuse with other cannabis-induced disorder; Z20.822 Contact with and (suspected) exposure to COVID-19
CPT/HCPCS: 0241U-QW; 36415; 74177-TC; 80048; 80053; 80307; 81003; 83690; 85025; 87086; 87186; 99285-25; Q9967

== ENCOUNTER 2024-01-24 13:42 | Emergency (ER) | payer OTHER ==
[2024-01-24 14:06] VITALS: BP 117/88; PULSE 92; RESP 18; TEMP 98; BMI 25.9
[2024-01-24] MEDS ORDERED: MORPHINE SULFATE 2 MG/ML SYRINGE ONE (15:19)
[2024-01-24 16:10] LABS: BASO % 0.8 % (0-2.0); EOS % 0.5 % (0-4.5); HEMATOCRIT 39.3 % (32.4-45.2); HEMOGLOBIN 13.6 GM/dL (10.7-15.3); LYMPH % 22.5 % (8-40); MCH 35.6 pg (25.7-33.7); MCHC 34.6 g/dl (32.0-36.0); MEAN PLT VOLUME 8.2 fl (7.5-11.1); MONO % 10.5 % (3.8-10.2); NEUT % 65.7 % (42.8-82.8); PLATELET COUNT 156 10^3/uL (134-434); RBC 3.82 M/mm3 (3.60-5.2); RDW 13.2 % (11.6-15.6); WHITE BLOOD COUNT 7.9 K/mm3 (4.0-10.0)
[2024-01-24] MEDS: morphine CARPU-JECT 2 MG/1 ML DISP.SYRIN IVPUSH ONE (16:13)
[2024-01-24 16:18] LABS: INR 1.02 (0.83-1.09); PROTHROMBIN TIME (PATIENT) 11.5 SEC (9.7-13.0)
[2024-01-24 16:20] LABS: ACTIVATED PTT 34.9 SECONDS (25.2-36.5)
[2024-01-24 16:25] LABS: CHLORIDE 102 mmol/L (98-107); POTASSIUM 3.6 mmol/L (3.5-5.1); SODIUM 137 mmol/L (136-145)
[2024-01-24 16:27] LABS: ALBUMIN 3.8 g/dl (3.4-5.0); ANION GAP 10 mmol/L (4-13); CALCIUM 8.7 mg/dL (8.5-10.1); CO2 25 mmol/L (21-32); GLUCOSE,RANDOM 89 mg/dL (74-106)
[2024-01-24 16:30] LABS: CREATININE 0.6 mg/dL (0.55-1.3); SGPT/ALT 45 U/L (13-61)
[2024-01-24 16:31] LABS: SGOT/AST 71 U/L (15-37)
[2024-01-24 16:32] LABS: BILIRUBIN,TOTAL 0.4 mg/dL (0.2-1); TOT PROT 8.9 g/dl (6.4-8.2)
[2024-01-24 16:34] LABS: ALK PHOS 105 U/L (45-117); BLOOD UREA NITROGEN 2.3 mg/dL (7-18)
[2024-01-24] MEDS ORDERED: KETOROLAC TROMETHAMINE 30 MG/1 ML VIAL ONE (18:21)
[2024-01-24] MEDS: KETOROLAC TROMETHAMINE 30 MG/1 ML VIAL IVPUSH ONE (18:25)
== END 2024-01-24 18:29 | disposition home or self-care (01) ==
LOC: JER 13:42
PROC: 3E0333Z Introduction of Anti-inflammatory into Peripheral Vein, Percutaneous Approach (ICD-10-PCS; principal; 2024-01-24)
DX: M79.661 Pain in right lower leg (principal)
CPT/HCPCS: 36415; 80053; 80307; 85025; 85610; 85730; 93971-TC; 99284-25

== ENCOUNTER 2025-04-16 17:42 | Inpatient (IN) | payer OTHER ==
[2025-04-16 19:54] LABS: GLUCOSE,RANDOM 83 mg/dL (74-106)
[2025-04-16 19:55] LABS: TOT PROT 10.5 g/dl (6.4-8.2)
[2025-04-16 19:57] LABS: ALK PHOS 67 U/L (40-150)
[2025-04-16 20:00] LABS: LACTIC ACID 2.3 mmol/L (0.4-2.0); SGOT/AST 369 U/L (5-34); SGPT/ALT 287 U/L (0-55)
[2025-04-16 20:01] LABS: CREATININE 0.22 mg/dL (0.55-1.3)
[2025-04-16 20:09] LABS: CO2 19 mmol/L (21-32)
[2025-04-16 20:23] LABS: ABSOLUTE IMMATURE GRANULOCYTES 0.24 x10^3/uL (0.0-0.031); BASOPHILS # 0.04 x10^3/uL (0.01-0.08); EOSINOPHIL % 0.8 % (0.7-5.8); EOSINOPHILS # 0.11 x10^3/uL (0.04-0.36); MCHC 31.3 g/dl (32.2-35.5); MEAN CELL VOLUME 101.8 fl (79.4-94.8); MEAN PLT VOLUME 11.4 fl (9.4-12.3); MONOCYTE # 0.37 x10^3/uL (0.24-0.86); MONOCYTE % 2.6 % (4.7-12.5); RDW 14.5 % (12.3-16.6)
[2025-04-16 20:33] LABS: HCV DIAGNOSTIC IN-HOUSE W/RFLX NON-REACTIVE (NONREACTIVE); HIV INTERPRETATION NEGATIVE (NEGATIVE)
[2025-04-16 20:38] LABS: URINE APPEARANCE CLEAR; URINE BILIRUBIN NEGATIVE (NEGATIVE); URINE COLOR YELLOW; URINE GLUCOSE (UA) NEGATIVE (NEGATIVE); URINE KETONE NEGATIVE (NEGATIVE); URINE LEUK ESTERASE NEGATIVE (NEGATIVE); URINE NITRITE NEGATIVE (NEGATIVE); URINE PROTEIN NEGATIVE (NEGATIVE); URINE UROBILINOGEN 0.2 mg/dL (0.2-1.0)
[2025-04-16] MEDS: SODIUM CHLORIDE 0.9% 500 ML INFUS.BAG IV ONE (21:28)
[2025-04-16] MEDS: SODIUM CHLORIDE 1,000 ML IV STA (21:28)
[2025-04-16 21:38] LABS: GLUCOSE,RANDOM 77.0 mg/dL (74-106); TOT PROT 8.9 g/dl (6.4-8.2)
[2025-04-16 21:41] LABS: ALK PHOS 70.0 U/L (40-150)
[2025-04-16 21:44] LABS: CREATININE 0.35 mg/dL (0.55-1.3); SGOT/AST 293.0 U/L (5-34); SGPT/ALT 273.0 U/L (0-55)
[2025-04-16 21:48] LABS: CO2 22.0 mmol/L (21-32)
[2025-04-16] MEDS ORDERED: LACTATED RINGERS SOLUTION 1,000 ML/1,000 ML INFUS.BAG IV SCH (23:00)
[2025-04-17 00:28] VITALS: RESP 18
[2025-04-17] MEDS: SODIUM CHLORIDE 1,000 ML IV SCH ×2 (02:47→14:08)
[2025-04-17] MEDS: SODIUM CHLORIDE 0.9% 500 ML INFUS.BAG IV ONE (02:48)
[2025-04-17 08:44] LABS: ABSOLUTE IMMATURE GRANULOCYTES 0.14 x10^3/uL (0.0-0.031); BASOPHILS # 0.03 x10^3/uL (0.01-0.08); EOSINOPHIL % 2.3 % (0.7-5.8); EOSINOPHILS # 0.25 x10^3/uL (0.04-0.36); MCHC 31.7 g/dl (32.2-35.5); MEAN CELL VOLUME 100.7 fl (79.4-94.8); MEAN PLT VOLUME 9.8 fl (9.4-12.3); MONOCYTE # 0.57 x10^3/uL (0.24-0.86); MONOCYTE % 5.2 % (4.7-12.5); RDW 14.2 % (12.3-16.6)
[2025-04-17 09:02] LABS: GLUCOSE,RANDOM 76.0 mg/dL (74-106); TOT PROT 7.1 g/dl (6.4-8.2)
[2025-04-17 09:03] LABS: CO2 23.0 mmol/L (21-32)
[2025-04-17 09:05] LABS: ALK PHOS 56.0 U/L (40-150)
[2025-04-17 09:07] LABS: SGPT/ALT 217.0 U/L (0-55)
[2025-04-17 09:08] LABS: CREATININE 0.29 mg/dL (0.55-1.3); SGOT/AST 247.0 U/L (5-34)
[2025-04-17] MEDS: FOLIC ACID 1 MG TABLET (FP) PO SCH (09:11)
[2025-04-17] MEDS: THIAMINE HCL 200 MG/2 ML VIAL IVPB SCH (09:12)
[2025-04-17] MEDS: amLODIPine BESYLATE 10 MG TABLET (FP) PO SCH (09:12)
[2025-04-17] MEDS ORDERED: predniSONE 10 MG TABLET (UD) PO SCH (10:00)
[2025-04-17] MEDS ORDERED: ENOXAPARIN NA (PORCINE) 40 MG/0.4 ML DISP.SYRIN SQ SCH (10:00)
[2025-04-17] MEDS: MAGNESIUM 2GM/50ML STERILE WATER IVPB IVPB ONE (10:20)
[2025-04-17 10:33] LABS: INR 1.04 (0.83-1.09); PROTHROMBIN TIME (PATIENT) 11.3 SEC (9.7-13.0)
[2025-04-17 10:36] LABS: ACTIVATED PTT 29.7 SECONDS (25.2-36.5)
[2025-04-17] MEDS: predniSONE 20 MG TABLET (UD) PO ONE (11:51)
[2025-04-17 15:01] LABS: COCAINE, UR NEGATIVE (NEGATIVE)
[2025-04-17 15:02] LABS: OPIATES, URI NEGATIVE (NEGATIVE); PHENCYCLIDINE,URINE NEGATIVE (NEGATIVE); URINE AMPHETAMINES NEGATIVE (NEGATIVE); URINE BARBITURATES NEGATIVE (NEGATIVE); URINE BENZODIAZEPINES NEGATIVE (NEGATIVE)
[2025-04-17 15:03] LABS: METHADONE, UR NEGATIVE (NEGATIVE)
[2025-04-17] MEDS: RIVAROXABAN 20 MG TABLET PO SCH (17:05)
[2025-04-17 18:03] LABS: GLUCOSE,RANDOM 114.0 mg/dL (74-106); TOT PROT 7.4 g/dl (6.4-8.2)
[2025-04-17 18:04] LABS: CO2 21.0 mmol/L (21-32)
[2025-04-17 18:05] LABS: ALK PHOS 62.0 U/L (40-150)
[2025-04-17 18:08] LABS: SGOT/AST 238.0 U/L (5-34); SGPT/ALT 218.0 U/L (0-55)
[2025-04-17 18:09] LABS: CREATININE 0.34 mg/dL (0.55-1.3)
[2025-04-18] MEDS: predniSONE 20 MG TABLET (UD) PO SCH (09:17)
[2025-04-18 09:29] LABS: MCHC 30.8 g/dl (32.2-35.5); MEAN CELL VOLUME 103.0 fl (79.4-94.8); MEAN PLT VOLUME 9.8 fl (9.4-12.3); RDW 14.4 % (12.3-16.6)
[2025-04-18 09:55] LABS: GLUCOSE,RANDOM 101.0 mg/dL (74-106); TOT PROT 7.2 g/dl (6.4-8.2)
[2025-04-18 09:56] LABS: CO2 21.0 mmol/L (21-32)
[2025-04-18 09:57] LABS: ALK PHOS 56.0 U/L (40-150)
[2025-04-18 10:00] LABS: CREATININE 0.29 mg/dL (0.55-1.3); SGOT/AST 214.0 U/L (5-34); SGPT/ALT 203.0 U/L (0-55)
[2025-04-18] MEDS: MAG HYDROX/AL HYDROX/SIMETH 30 ML UNIT-DOSE CUP PO PRN (16:15)
[2025-04-19 11:34] LABS: MCHC 30.8 g/dl (32.2-35.5); MEAN CELL VOLUME 100.6 fl (79.4-94.8); MEAN PLT VOLUME 10.4 fl (9.4-12.3); RDW 14.4 % (12.3-16.6)
[2025-04-19 12:21] LABS: GLUCOSE,RANDOM 121.0 mg/dL (74-106)
[2025-04-19 12:22] LABS: TOT PROT 7.8 g/dl (6.4-8.2)
[2025-04-19 12:23] LABS: CO2 23.0 mmol/L (21-32)
[2025-04-19 12:24] LABS: ALK PHOS 63.0 U/L (40-150)
[2025-04-19 12:27] LABS: CREATININE 0.28 mg/dL (0.55-1.3); SGOT/AST 233.0 U/L (5-34); SGPT/ALT 223.0 U/L (0-55)
[2025-04-19] MEDS: POTASSIUM CHLORIDE ORAL LIQUID 20 MEQ/15 ML PO ONE (13:50)
[2025-04-19 14:28] VITALS: BMI 18.3
[2025-04-19] MEDS ORDERED: SIMETHICONE 80 MG TAB.CHEW (FP) PO PRN (17:08)
[2025-04-19] MEDS: PANTOPRAZOLE 40 MG TABLET PO SCH (18:11)
[2025-04-19] MEDS: ACETAMINOPHEN 325 MG TABLET (FP) PO ONE (21:15)
[2025-04-19] MEDS: MAGNESIUM 2GM/50ML STERILE WATER IVPB IVPB ONE (22:35)
[2025-04-19] MEDS: LACTATED RINGERS SOLUTION 1,000 ML/1,000 ML INFUS.BAG IV SCH (23:15)
[2025-04-20] MEDS: PANTOPRAZOLE SODIUM 40 MG VIAL IVPUSH ONE (08:53)
[2025-04-20] MEDS: THIAMINE HCL 200 MG/2 ML VIAL IVPB SCH (09:06)
[2025-04-20 11:42] LABS: MCHC 30.4 g/dl (32.2-35.5); MEAN CELL VOLUME 102.0 fl (79.4-94.8); MEAN PLT VOLUME 10.0 fl (9.4-12.3); RDW 14.3 % (12.3-16.6)
[2025-04-20 12:52] LABS: GLUCOSE,RANDOM 72.0 mg/dL (74-106); TOT PROT 8.4 g/dl (6.4-8.2)
[2025-04-20 12:53] LABS: CO2 21.0 mmol/L (21-32)
[2025-04-20 12:55] LABS: ALK PHOS 62.0 U/L (40-150)
[2025-04-20 12:58] LABS: CREATININE 0.34 mg/dL (0.55-1.3); SGOT/AST 208.0 U/L (5-34); SGPT/ALT 241.0 U/L (0-55)
[2025-04-20] MEDS: MAGNESIUM SULF 50% (8.12 MEQ/2 ML-1 GM VIAL) IVPB ONE (14:30)
[2025-04-20] MEDS: POTASSIUM CHLORIDE TABS 20 MEQ TABLET.ER (FP) PO ONE (14:41)
[2025-04-20] MEDS: POTASSIUM CHLORIDE ORAL LIQUID 20 MEQ/15 ML PO ONE (14:42)
[2025-04-20] MEDS: LACTATED RINGERS SOLUTION 1,000 ML/1,000 ML INFUS.BAG IV SCH (14:42)
[2025-04-20] MEDS: FOLIC ACID 1 MG TABLET (FP) PO SCH (17:43)
[2025-04-20] MEDS: METHOTREXATE 2.5 MG TABLET PO SCH (19:30)
[2025-04-21 08:46] LABS: MCHC 30.8 g/dl (32.2-35.5); MEAN CELL VOLUME 102.1 fl (79.4-94.8); MEAN PLT VOLUME 10.4 fl (9.4-12.3); RDW 14.1 % (12.3-16.6)
[2025-04-21 09:08] VITALS: PULSE 77
[2025-04-21 09:13] LABS: GLUCOSE,RANDOM 67.0 mg/dL (74-106)
[2025-04-21 09:14] LABS: TOT PROT 8.5 g/dl (6.4-8.2)
[2025-04-21 09:15] LABS: CO2 25.0 mmol/L (21-32)
[2025-04-21 09:16] LABS: ALK PHOS 66.0 U/L (40-150)
[2025-04-21 09:19] LABS: CREATININE 0.3 mg/dL (0.55-1.3); SGOT/AST 168.0 U/L (5-34); SGPT/ALT 221.0 U/L (0-55)
[2025-04-21 15:13] VITALS: BP 110/69; TEMP 98.6
== END 2025-04-21 16:05 | disposition home or self-care (01) | DRG 346 ==
LOC: JER 17:42 → JERBED 21:36 → J5S 23:37
PROVIDERS: ADMIT Hospitalist
PROC: 05HC33Z Insertion of Infusion Device into Left Basilic Vein, Percutaneous Approach (ICD-10-PCS; principal; 2025-04-20)
DX: G72.49 Other inflammatory and immune myopathies, not elsewhere classified (principal); M62.82 Rhabdomyolysis; E44.0 Moderate protein-calorie malnutrition; I69.351 Hemiplegia and hemiparesis following cerebral infarction affecting right dominant side; K76.0 Fatty (change of) liver, not elsewhere classified; D72.829 Elevated white blood cell count, unspecified; F10.10 Alcohol abuse, uncomplicated; F12.90 Cannabis use, unspecified, uncomplicated; F17.200 Nicotine dependence, unspecified, uncomplicated; I10 Essential (primary) hypertension; K21.9 Gastro-esophageal reflux disease without esophagitis; Z68.1 Body mass index [BMI] 19.9 or less, adult
CPT/HCPCS: 36415; 71046-TC-FY; 80053; 80307; 81003; 81241; 82085; 82550; 83605; 83735; 84100; 84484; 85025; 85027; 85610; 85651; 85730; 86038; 86160; 86225; 86235; 86803; 87086; 87389; 87637-QW; 93005; 93010; 97116-GP; 97161-GP; 99285-25; J8610